=== PATIENT | female | born 1945 | race Caucasian/White ===

== ENCOUNTER 2017-01-09 11:02 | Inpatient (IN) | payer OTHER ==
[~2017-01-09] VITALS: Ht 147.3 cm; Wt 63.7 kg
[~2017-01-09 11:02] MED LIST: ACET325T82 PO; ALBU0.08 INH; ALBU1AER9 INH; ALPHTAB4 PO; BMX1 PO; BRIN1SUS OP; DRGTP12 TD; MONT1TAB3 PO; OXGN; SNK PO; SPRIN INH; TPRSR/25 PO; UMEC1INH INH; WARF2.5T8 PO
[2017-01-09] MEDS ORDERED: METHYLPREDNISOLONE 125 MG VIAL IV STA (11:46)
[2017-01-09] MEDS ORDERED: ALBUT/IPRATROP 3MG/0.5MG NEB 3 ML VIAL INH ONE (12:00)
--- NOTE | 2017-01-09 12:14 | DIAGNOSTIC IMAGING REPORT ---
CHEST ONE VIEW PORTABLE HISTORY: Sepsis COMPARISON: Chest 07/13/2016. FINDINGS: The heart and pulmonary arteries remain enlarged. There is a new right lower lobe airspace opacity. There are linear densities at the left lung base. No pneumothorax. No pleural effusions. The upper lungs and remain clear. IMPRESSION: 1. A new right lower lobe airspace opacity. This likely represents a pneumonia. Recommend one month chest x-ray follow-up to ensure resolution. 2. No change in the cardiomegaly and enlarged pulmonary arteries. Electronically signed by: Rishi Shook M.D. 01/09/2017 12:13 PM Dictated Date/Time: 01/09/2017 12:12 PM
[2017-01-09 12:46] VITALS: PULSE 60; O2SAT 91
[2017-01-09 12:56] LABS: POINT OF CARE TROPONIN I 0.03 ng/ml (0-0.045)
[2017-01-09 12:56] LABS: INR 1.4 (0.9-1.1); PARTIAL THROMBOPLASTIN RATIO 1.1; PROTHROMBIN TIME (PATIENT) 15.4 SECONDS (9.0-12.0)
[2017-01-09 13:02] LABS: BUN/CREATININE RATIO 27.6 (10-20); CALCIUM 8.9 mg/dl (8.5-10.1); CREATININE 1.4 mg/dl (0.60-1.20); POTASSIUM 4.4 mmol/L (3.5-5.1)
[2017-01-09 13:09] LABS: BASO % 0.2 %; BASO ABS # 0.02 K/uL (0-0.2); COMPLETE YES; HEMATOCRIT 32.1 % (37-47); IG% 0.2 %; LYMPH % 12.3 %; LYMPH ABS # 1.01 K/uL (1.2-3.4); MEAN CORPUSCULAR HEMOGLOBIN 29.9 pg (25-34); MEAN CORPUSCULAR HGB CONC 31.5 g/dl (32-36); MEAN PLATELET VOLUME 12.5 fL (7.4-10.4); MONO % 10.4 %; NEUT % 75.9 %; OVALOCYTES 1+; PLATELET COUNT 116 K/uL (130-400); PLT ESTIMATE DECREASED; RED BLOOD COUNT 3.38 M/uL (4.2-5.4); WHITE BLOOD COUNT 8.18 K/uL (4.8-10.8)
[2017-01-09] MEDS ORDERED: FUROSEMIDE 40 MG/4 ML VIAL IV STA (13:14)
[2017-01-09 14:11] LABS: ARTERIAL BLD GAS O2 SATURATION 93.7 % (90-95); ARTERIAL BLOOD GAS BASE EXCESS 8.8 mEq/L (-9-1.8); ARTERIAL BLOOD GAS HCO3 34 mmol/L (19-24); ARTERIAL BLOOD GAS PO2 73 mm/Hg (80-95); ARTERIAL BLOOD GAS pH 7.43 (7.35-7.45)
[2017-01-09 14:12] LABS: ALLEN TEST POS (POS); O2 ADMINISTRATION 5L
[2017-01-09] MEDS ORDERED: ONDANSETRON INJ 2 MG/ML 2 ML VIAL IV PRN (14:15)
[2017-01-09] MEDS ORDERED: ACETAMINOPHEN 325 MG TAB PO PRN (14:15)
[2017-01-09] MEDS ORDERED: [UNRECOGNIZED DRUG - REMARK] SCH (14:22)
[2017-01-09] MEDS ORDERED: CEFEPIME IV 2000 MG in DEXTROSE 5% 100ML IV SCH (14:25)
[2017-01-09] MEDS ORDERED: CEFEPIME CONSULT ACTIVE PRN ×2 (14:30)
[2017-01-09] MEDS ORDERED: PROMETHAZINE HCL INJ 12.5 MG in SODIUM CHLORIDE 0.9% 50ML 50 ML IV PRN (14:30)
[2017-01-09] MEDS ORDERED: PANT1TAB48 PO (14:53)
[2017-01-09] MEDS ORDERED: DXY100 PO (14:53)
[2017-01-09] MEDS ORDERED: WARF5TAB7 PO (14:53)
[2017-01-09] MEDS ORDERED: VANCOMYCIN INJ 1,700 MG in SODIUM CHLORIDE 0.9% 500ML 500 ML IV SCH (15:00)
[2017-01-09 15:45] VITALS: Ht 147.3 cm; Wt 63.7 kg
--- NOTE | 2017-01-09 15:48 | Pharmacy Progress Note ---
Pharmacy Antibiotic Consult Date of Service: Jan 09, 2017. Pharmacy Dosing Scope Pharmacy is consulted to initiate vancomycin and cefepime IV dosing therapy, order appropriate labs and adjust drug dose/frequency. Subjective The patient is a 71 year old female admitted on 01/09/17 with pneumonia. Objective Height (Feet): 4 Height (Inches): 10 Weight (Kilograms): 68.30 Lab Results (24hrs): Laboratory Tests Test 01/09/17 12:20 BUN/Creatinine Ratio 27.6 Blood Urea Nitrogen 39 mg/dl Creatinine 1.40 mg/dl White Blood Count 8.18 K/uL Red Blood Count 3.38 M/uL Hemoglobin 10.1 g/dL Hematocrit 32.1 % Mean Corpuscular Volume 95.0 fL Mean Corpuscular Hemoglobin 29.9 pg Mean Corpuscular Hemoglobin Concent 31.5 g/dl Platelet Count 116 K/uL Mean Platelet Volume 12.5 fL Neutrophils (%) (Auto) 75.9 % Lymphocytes (%) (Auto) 12.3 % Monocytes (%) (Auto) 10.4 % Eosinophils (%) (Auto) 1.0 % Basophils (%) (Auto) 0.2 % Neutrophils # (Auto) 6.20 K/uL Lymphocytes # (Auto) 1.01 K/uL Monocytes # (Auto) 0.85 K/uL Eosinophils # (Auto) 0.08 K/uL Basophils # (Auto) 0.02 K/uL Micro Results: Item Value Date Time Influenza Type B Antigen Neg for Influ B 01/09/17 1240 Influenza Type A Antigen Neg for Influ A 01/09/17 1240 Item Value Date Time Blood Culture Received 01/09/17 1220 Blood Pending Blood Culture Received 01/09/17 1225 Blood Pending Assessment & Plan Assessment: * 71 y/o with pertinent history of COPD, tobacco use (quit in 2004), and right nephrectomy. * Recent visit to the doctor's office for bronchitis - started doxycycline for 10 days * Today, admitted with pneumonia. * CXR with new RLL airspace opacity * History of MRSA and Zosyn resistant E. coli * Many drug allergies Plan: * begin broad-spectrum ABX to cover pulmonary source of infection, including MRSA agent Vancomycin: * Loading dose: 1700 mg (~25mg/kg) IV X 1 dose * Maintenance dose: 850 mg (~12.5mg/kg) IV every 24 hours * Estimated kinetics: T1/2 ~23.8 hours * Goal trough: 15-20mcg/mL for pulmonary source * Trough 01/12 prior to 16:00 dose * MRSA swab ordered by provider * May consider PCR influenza since antigen negative Cefepime: * Target dose = 2000 mg IV every 12 hours * Dose adjust for CrCl 30-60mL/min = 2000 mg IV every 24 hours Pharmacy will continue to follow and will adjust dose/frequency as necessary. Thank you
--- NOTE | 2017-01-09 15:56 | History and Physical ---
History & Physical Date & Time of Service: Jan 09, 2017 at 15:12 Chief Complaint: Cough, Shortness of Breath Primary Care Physician: Jodi South D.O. History of Present Illness 71 year old female who presents to the ER with cough and shortness of breath. Patient was seen by her PCP on 01/02 for cough and was given doxycycline for treatment of bronchitis. Patient was somewhat lethargic during my exam however did eventually arouse. Some history is obtained from her daughter. Patient reports increasing shortness of breath and cough for the past one week. She chronically wears 2-4 liters of oxygen at home. Cough has been productive for brown/bright red sputum at times. She reports a few episodes of the bright red blood. She had a few episodes of post tussive emesis. She describes the emesis as mucous. She also has had some diarrhea and lower abdominal pain which has resolved. She denies BRBPR or dark tarry stools. No fever or chills She denies chest pain. No lightheadedness, dizziness, diaphoresis, or syncopal events. She has chronic lower extremity edema which is worse than her baseline. Daughter reports she is intermittently lethargic at home. Upon arrival to the ER, patient was 83% on 3L. This improved with 5L oxygen via NC however patient eventually required simple face mask as she was sleeping and breathing through her mouth. CXR is showing RLL pneumonia. Patient was given IV Lasix, Solu-medrol , and duoneb. BP is stable, she is afebrile, and labs are unremarkable. Past Medical/Surgical History Medical Problems: (1) Afib Permanent Comment: s/p ablation Status: Chronic (2) Anemia Status: Chronic (3) ASD (atrial septal defect) Permanent Comment: repaired Status: Chronic (4) CKD (chronic kidney disease), stage IV Status: Chronic (5) COPD (chronic obstructive pulmonary disease) Status: Chronic (6) GERD (gastroesophageal reflux disease) Status: Chronic (7) H/O unilateral nephrectomy Permanent Comment: right Status: Chronic (8) Heart disease Permanent Comment: mild CAD cath 2007 Status: Chronic (9) HLD (hyperlipidemia) Status: Chronic (10) HTN (hypertension) Status: Chronic (11) Hypertension Status: Chronic (12) Hypothyroid Status: Chronic (13) Mild left ventricular systolic dysfunction Permanent Comment: EF 45-49% echo 04/2016 Status: Chronic (14) MRSA bacteremia Permanent Comment: in the setting of pacemaker vegetation (08/2011) and discitis (02/2012) Status: Resolved (15) Pacemaker Permanent Comment: removed 2010 due to infection Status: Chronic (16) Right-sided congestive heart failure Status: Chronic (17) Solitary kidney Status: Chronic (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 Surgical Problems: (1) H/O thyroidectomy Status: Chronic (2) History of appendectomy Status: Chronic (3) S/P MVR (mitral valve repair) Status: Chronic Family History Heart disease Hypertension Lung disease Social History Smoking Status: Former Smoker Alcohol Use: none Housing status: lives with family Immunizations History of Influenza Vaccine: Yes Influenza Vaccine Date: Oct 06, 2016 History of Tetanus Vaccine?: Yes Tetanus Immunization Date: Jul 08, 2015 History of Pneumococcal: Yes Pneumococcal Date: May 20, 2015 Multi-Drug Resistant Organisms History of MDRO: Yes Type of MDRO: MRSA Allergies Coded Allergies: Levofloxacin (Verified Allergy, Intermediate, HIVES, 01/09/17) Quinolones (Verified Allergy, Intermediate, HIVES, 01/09/17) Ranitidine (Verified Allergy, Intermediate, HIVES, 01/09/17) Sulfamethoxazole (Verified Allergy, Intermediate, HIVES, 01/09/17) Trimethoprim (Verified Allergy, Intermediate, HIVES, 01/09/17) Clarithromycin (Verified Allergy, Mild, HIVES, CAN TAKE ZITHROMAX W/O PROB , 01/09/17) Amoxicillin (Verified Allergy, Unknown, HIVES, 01/09/17) Omeprazole (Verified Allergy, Unknown, HAS HAD PROTONIX, 01/09/17) Home Medications Scheduled Bumetanide (Bumetanide), 1 MG PO DAILY Calcitriol (Calcitriol), 1 CAP PO MWF Donepezil Hydrochloride (Aricept), 10 MG PO HS Doxycycline Hyclate (Doxycycline Hyclate), 100 MG PO BID Ferrous Sulfate (Iron), 1 TAB PO BID Fluticasone Prop/Salmeterol (Advair Diskus 250/50 60 Dose), 1 PUFF INH BID Fluticasone Propionate (Nasal) (Flonase Allergy Relief), 1 SPRAY PAULIE BID Gabapentin (Neurontin), 300 MG PO DAILY Gabapentin (Neurontin), 600 MG PO AMHS Hydralazine HCl (Hydralazine HCl), 10 MG PO BID Levothyroxine Sodium (Levothyroxine Sodium), 75 MCG PO DAILY Metoprolol Succinate (Metoprolol Succinate ER), 12.5 MG PO DAILY Montelukast Sodium (Singulair), 1 TAB PO DAILY Nitroglycerin (Nitrostat), 0.4 MG SL PRN UD Oxybutynin Chloride (Oxybutynin Chloride Er), 5 MG PO DAILY Oxygen (Oxygen), 2-3 LITERS NA CONTINOUS Pantoprazole (Protonix), 40 MG PO DAILY Pravastatin Sodium (Pravastatin Sodium), 80 MG PO QPM Senna (Senna Lax), 8.6 MG PO QAM Umeclidinium [place] (Incruse Ellipta), 1 INHA INH DAILY Warfarin Sod (Jantoven), 2.5 MG PO UD Warfarin Sod (Jantoven), 5 MG PO UD Scheduled PRN Albuterol Sulf (Proventil 0.083% 2.5MG/3ML), 2.5 MG INH Q4H PRN for SOB/Wheezing Albuterol Sulfate (Proair Respiclick), 2 PUFFS INH QID PRN for Shortness of Breath Review of Systems 10 point review of systems was completed with the pertinent positives and negatives noted per the HPI Physical Exam Vital Signs Date Time Temp Pulse Resp B/P Pulse Ox O2 Delivery O2 Flow Rate FiO2 01/09/17 14:42 95 Mask 5.0 01/09/17 13:58 83 21 126/57 94 Mask 5.0 01/09/17 12:46 60 18 91 Nasal Cannula 5.0 01/09/17 12:43 65 26 120/85 93 Nebulizer 01/09/17 12:20 65 01/09/17 12:03 91 Nasal Cannula 5.0 01/09/17 11:23 92 Nasal Cannula 5.0 01/09/17 11:18 37.5 64 22 146/75 83 Nasal Cannula 3.0 General Appearance: + pertinent finding (initially lethargic however improved throughout exam) Head: normocephalic Eyes: normal inspection ENT: hearing grossly normal Neck: supple, no JVD Respiratory/Chest: + decreased breath sounds, + crackles (BL bases), + rhonchi (scattered), + wheezing (scattered, expiratory) Cardiovascular: regular rate, rhythm, + pertinent finding (+1 edema BLLE) Abdomen/GI: normal bowel sounds, non tender, soft Extremities/Musculoskelatal: normal inspection, no calf tenderness Neurologic/Psych: no motor/sensory deficits, oriented x 3, + pertinent finding (initially lethargic however mental status improved through out exam) Skin: normal color, warm/dry Diagnostics Laboratory Results Results Past 24 Hours Test 01/09/17 12:20 01/09/17 12:32 01/09/17 12:40 01/09/17 13:59 Range/Units White Blood Count 8.18 4.8-10.8 K/uL Red Blood Count 3.38 4.2-5.4 M/uL Hemoglobin 10.1 12.0-16.0 g/dL Hematocrit 32.1 37-47 % Mean Corpuscular Volume 95.0 80-100 fL Mean Corpuscular Hemoglobin 29.9 25-34 pg Mean Corpuscular Hemoglobin Concent 31.5 32-36 g/dl Platelet Count 116 130-400 K/uL Mean Platelet Volume 12.5 7.4-10.4 fL Neutrophils (%) (Auto) 75.9 % Lymphocytes (%) (Auto) 12.3 % Monocytes (%) (Auto) 10.4 % Eosinophils (%) (Auto) 1.0 % Basophils (%) (Auto) 0.2 % Neutrophils # (Auto) 6.20 1.4-6.5 K/uL Lymphocytes # (Auto) 1.01 1.2-3.4 K/uL Monocytes # (Auto) 0.85 0.11-0.59 K/uL Eosinophils # (Auto) 0.08 0-0.5 K/uL Basophils # (Auto) 0.02 0-0.2 K/uL RDW Standard Deviation 57.9 36.4-46.3 fL RDW Coefficient of Variation 16.8 11.5-14.5 % Immature Granulocyte % (Auto) 0.2 % Immature Granulocyte # (Auto) 0.02 0.00-0.02 K/uL Platelet Estimate DECREASED Ovalocytes 1+ Prothrombin Time 15.4 9.0-12.0 SECONDS Prothromb Time International Ratio 1.4 0.9-1.1 Activated Partial Thromboplast Time 29.5 21.0-31.0 SECONDS Partial Thromboplastin Ratio 1.1 Sodium Level 144 136-145 mmol/L Potassium Level 4.4 3.5-5.1 mmol/L Chloride Level 104 98-107 mmol/L Carbon Dioxide Level 32 21-32 mmol/L Anion Gap 8.0 3-11 mmol/L Blood Urea Nitrogen 39 7-18 mg/dl Creatinine 1.40 0.60-1.20 mg/dl Est Creatinine Clear Calc Drug Dose 29.7 ml/min Estimated GFR () 43.4 Estimated GFR (Non- 37.4 BUN/Creatinine Ratio 27.6 10-20 Random Glucose 96 70-99 mg/dl Calcium Level 8.9 8.5-10.1 mg/dl Total Bilirubin 0.7 0.2-1 mg/dl Aspartate Amino Transf (AST/SGOT) 14 15-37 U/L Alanine Aminotransferase (ALT/SGPT) 13 12-78 U/L Alkaline Phosphatase 57 45-117 U/L Total Protein 6.6 6.4-8.2 gm/dl Albumin 3.3 3.4-5.0 gm/dl Globulin 3.3 2.5-4.0 gm/dl Albumin/Globulin Ratio 1.0 0.9-2 Bedside Lactic Acid Venous 0.87 0.90-1.70 mmol/L Bedside Troponin I 0.030 0-0.045 ng/ml MM-Vpf-U-Type Natriuretic Peptide 4300 0-900 pg/ml Influenza Type A Antigen Neg for Influ A NEG Influenza Type B Antigen Neg for Influ B NEG Arterial Blood pH 7.43 7.35-7.45 Arterial Blood Partial Pressure CO2 53 35-46 mmHg Arterial Blood Partial Pressure O2 73 80-95 mm/Hg Arterial Blood HCO3 34 19-24 mmol/L Arterial Blood Oxygen Saturation 93.7 90-95 % Arterial Blood Base Excess 8.8 -9-1.8 mEq/L Arterial Blood Gas Delivery 5L Aditay Test POS POS Microbiology Results 01/09/17 Blood Culture, Received Pending 01/09/17 Blood Culture, Received Pending Diagnostic Radiology CXR IMPRESSION: 1. A new right lower lobe airspace opacity. This likely represents a pneumonia. Recommend one month chest x-ray follow-up to ensure resolution. 2. No change in the cardiomegaly and enlarged pulmonary arteries. Impression Assessment and Plan ACUTE ON CHRONIC HYPOXIC RESPIRATORY FAILURE, LIKELY MULTIFACTORIAL DUE TO: RLL PNEUMONIA COPD EXACERBATION ACUTE ON CHRONIC DIASTOLIC/SYSTOLIC CHF - admit to tele - patient presenting with increasing shortness of breath/productive cough x 1 week; was started on doxycycline by PCP on 01/02 - CXR showing RLL pneumonia - afebrile, no leukocytosis, normal lactic acid, BP stable - 83% on 3L on arrival (chronically on 2-4 liters at home), currently requiring 5L via simple face mask due to mouth breathing while sleeping - ABG shows compensated respiratory acidosis - due to patient's allergies and hx MRSA bacteremia, will place on Cefepime and Vanco - rapid flu negative, will check PCR - IV steroids and nebs around the clock, continue home inhaled corticosteroid - pulmonary consult, input appreciated - patient also presenting with increasing lower extremity edema, crackles noted on exam - s/p Lasix 40mg IV in ED - will continue with 40mg IV daily (on Bumex 1mg daily at home) - echo 04/2016 - EF 45-49%, moderate pulmonary hypertension; will update echo - cardio consult, input appreciated HEMOPTYSIS - per patient, none observed here - on Coumadin, INR 1.4; also thrombocytopenia noted - hgb at baseline - check CT chest, hold Coumadin Pulmonary consult THROMBOCYTOPENIA - ? 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 DISPO - In my clinical judgment this beneficiary meets acute admission criteria, established by [facility], that includes being hospitalized through two midnights. Agree with above h and P.71Y f with PMH of copd chronic respiratory failure, chf presents with sob and cough with brownish/red sputum going on for one week.Initially seemed lethargic but aroused and answered questions appropriately. Was speaking in full sentences with out stopping for sob. but requiring 5ls oxygen mask in ER. denies chest pain. No nausea. p/e Ge not in distress Cvs s1 and s2 heard no murmurs Rs cta b/l no wheezing bibasilar crackles present Abd soft bs present non tender n o distension [employer] non focal Ext no erythema b/l lower extremity edema present a/p acute on chronic resp failure Pneumonia Acute on chronic right sided heart failure Pl.HTN ABG ok iv steroids, nebs,oxygen iv cefepime and iv vanco ct chest pulmonary and cardiology consult monitor in tele Hemoptysis?ct chest-possible pneumonia/alveolar hemorrhage abx as above Coumadin on hold sputum cytology pulmonary consulted VTE Prophylaxis VTE Risk Assessment Done? Y/N: Yes Risk Level: Moderate
--- NOTE | 2017-01-09 16:25 | DIAGNOSTIC IMAGING REPORT ---
CT OF THE CHEST WITHOUT IV CONTRAST CLINICAL HISTORY: Hemoptysis. COMPARISON STUDY: Chest CT May 08, 2011 and chest radiograph January 09, 2017. CT DOSE: 339.76 mGy.cm TECHNIQUE: Axial images of the chest were obtained without IV contrast. Images were reviewed in the axial, sagittal, and coronal planes. IV contrast was not administered for this examination. FINDINGS: Marked enlargement of the heart is noted. Marked dilatation of the central pulmonary arteries is present. There is no pericardial effusion. Note is made of a small right pleural effusion. There is no pneumothorax. No enlarged thoracic lymph nodes are identified. The lungs are suboptimally assessed due to significant respiratory motion artifact. Interlobular septal thickening suggests pulmonary edema. In addition, there are bilateral airspace opacities, greatest within the lower lobes. There is narrowing of the AP dimension of the airways which suggest tracheomalacia. There is no lobar consolidation. Bony thorax is unremarkable. There are gallstones within the gallbladder. Deformity of the anterior right chest wall is unchanged and likely postsurgical. IMPRESSION: 1. Marked cardiomegaly. 2. Marked dilatation of the central pulmonary arteries and wall calcification of the pulmonary arteries consistent with severe pulmonary arterial hypertension. 3. Interlobular septal thickening consistent with pulmonary edema. Small right pleural effusion. 4. Suboptimal evaluation of lungs due to respiratory motion. Multifocal bilateral airspace opacities, greatest within the lower lobes. This could reflect pulmonary edema, pneumonia or pulmonary hemorrhage. 5. Cholelithiasis. 6. Findings suggestive of tracheobronchomalacia. Electronically signed by: Alejo Moya M.D. 01/09/2017 4:23 PM Dictated Date/Time: 01/09/2017 4:14 PM
--- NOTE | 2017-01-09 18:57 | EMERGENCY ROOM VISIT NOTE ---
History Report prepared by Kaitlynn: Claudy Grimaldo Under the Supervision of: Dr. Darien Sandoval M.D. First contact with patient: 11:37 Chief Complaint: ILLNESS Stated Complaint: ILLNESS History of Present Illness The patient is a 71 year old female who presents to the Emergency Room via EMS with complaints of dizziness that occurred RN UTILIZATION MANAGEMENT UM. The patient states that she began to feel light headed and nauseous while at home with her home health nurse when they decided to call the ambulance. Associated symptoms include a productive cough that started a week ago, a fever, and congestion. The patient reports a history of Emphysema. She is on 3L of oxygen consistently at home. She denies increased shortness of breath as compared to her baseline. The patient is currently being treated with an antibiotic. She also takes Lasix regularly for swelling to her legs. She also complains of some chest tightness as well. Source of History: patient Onset: RN UTILIZATION MANAGEMENT UM Position: other (Global ) Symptom Intensity: moderate Quality: other (dizziness) Modifying Factors (Worsening): other (None) Modifying Factors (Relieving): other (None) Associated Symptoms: + SOB, + chest pain, + cough, + fevers Review of Systems See HPI for pertinent positives & negatives. A total of 10 systems reviewed and were otherwise negative. 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 Surgical Problems: (1) H/O thyroidectomy (2) History of appendectomy (3) S/P MVR (mitral valve repair) Family History Heart disease Hypertension Lung disease Social History Smoking Status: Former Smoker Alcohol Use: none Drug Use: none Marital Status: Housing Status: prison Occupation Status: retired Current/Historical Medications Scheduled Bumetanide (Bumetanide), 1 MG PO DAILY Calcitriol (Calcitriol), 1 CAP PO MWF Donepezil Hydrochloride (Aricept), 10 MG PO HS Doxycycline Hyclate (Doxycycline Hyclate), 100 MG PO BID Ferrous Sulfate (Iron), 1 TAB PO BID Fluticasone Prop/Salmeterol (Advair Diskus 250/50 60 Dose), 1 PUFF INH BID Fluticasone Propionate (Nasal) (Flonase Allergy Relief), 1 SPRAY PAULIE BID Gabapentin (Neurontin), 300 MG PO DAILY Gabapentin (Neurontin), 600 MG PO AMHS Hydralazine HCl (Hydralazine HCl), 10 MG PO BID Levothyroxine Sodium (Levothyroxine Sodium), 75 MCG PO DAILY Metoprolol Succinate (Metoprolol Succinate ER), 12.5 MG PO DAILY Montelukast Sodium (Singulair), 1 TAB PO DAILY Nitroglycerin (Nitrostat), 0.4 MG SL PRN UD Oxybutynin Chloride (Oxybutynin Chloride Er), 5 MG PO DAILY Oxygen (Oxygen), 2-3 LITERS NA CONTINOUS Pantoprazole (Protonix), 40 MG PO DAILY Pravastatin Sodium (Pravastatin Sodium), 80 MG PO QPM Senna (Senna Lax), 8.6 MG PO QAM Umeclidinium [place] (Incruse Ellipta), 1 INHA INH DAILY Warfarin Sod (Jantoven), 2.5 MG PO UD Warfarin Sod (Jantoven), 5 MG PO UD Scheduled PRN Albuterol Sulf (Proventil 0.083% 2.5MG/3ML), 2.5 MG INH Q4H PRN for SOB/Wheezing Albuterol Sulfate (Proair Respiclick), 2 PUFFS INH QID PRN for Shortness of Breath Allergies Coded Allergies: Levofloxacin (Verified Allergy, Intermediate, HIVES, 01/09/17) Quinolones (Verified Allergy, Intermediate, HIVES, 01/09/17) Ranitidine (Verified Allergy, Intermediate, HIVES, 01/09/17) Sulfamethoxazole (Verified Allergy, Intermediate, HIVES, 01/09/17) Trimethoprim (Verified Allergy, Intermediate, HIVES, 01/09/17) Clarithromycin (Verified Allergy, Mild, HIVES, CAN TAKE ZITHROMAX W/O PROB , 01/09/17) Amoxicillin (Verified Allergy, Unknown, HIVES, 01/09/17) Omeprazole (Verified Allergy, Unknown, HAS HAD PROTONIX, 01/09/17) Physical Exam Vital Signs Date Time Temp Pulse Resp B/P Pulse Ox O2 Delivery O2 Flow Rate FiO2 01/09/17 14:12 86 27 92 01/09/17 14:07 76 20 93 01/09/17 14:02 72 23 94 01/09/17 13:58 83 21 126/57 94 Mask 5.0 01/09/17 13:57 77 21 93 01/09/17 13:52 71 20 92 01/09/17 13:47 68 20 87 01/09/17 13:42 72 24 88 01/09/17 13:37 74 20 88 01/09/17 13:32 72 19 87 01/09/17 13:27 66 22 87 01/09/17 13:22 64 25 95 01/09/17 13:17 64 20 95 01/09/17 13:12 64 20 95 01/09/17 13:07 60 16 96 01/09/17 13:02 68 17 96 01/09/17 12:58 126/57 01/09/17 12:57 62 23 93 01/09/17 12:52 57 18 94 01/09/17 12:47 57 19 94 01/09/17 12:46 60 18 91 Nasal Cannula 5.0 01/09/17 12:43 65 26 120/85 93 Nebulizer 01/09/17 12:42 63 25 93 01/09/17 12:37 63 29 92 01/09/17 12:32 69 17 91 01/09/17 12:27 60 20 89 01/09/17 12:22 62 18 92 01/09/17 12:20 65 01/09/17 12:17 60 19 90 01/09/17 12:12 56 23 91 01/09/17 12:07 62 17 90 01/09/17 12:03 91 Nasal Cannula 5.0 01/09/17 12:02 64 23 85 01/09/17 11:59 120/85 01/09/17 11:57 62 21 89 01/09/17 11:52 70 18 92 01/09/17 11:47 61 18 89 01/09/17 11:42 66 21 89 01/09/17 11:37 61 18 87 01/09/17 11:32 65 18 87 01/09/17 11:27 67 22 88 01/09/17 11:23 92 Nasal Cannula 5.0 01/09/17 11:18 37.5 64 22 146/75 83 Nasal Cannula 3.0 01/09/17 11:13 146/75 Physical Exam Constitutional: Vital signs reviewed. Eyes: Pupils are equal round reactive to light. Conjunctiva are noninjected. ENT: Pharynx is clear without erythema or exudate. Mucous membranes are moist. Neck supple without meningeal signs. Respiratory: Diffuse expiratory wheezing bilaterally. Breath sounds are equal bilaterally. Cardiovascular: Regular rate and rhythm. No rubs or gallops. GI: Soft, nondistended and nontender. Bowel sounds are present. Musculoskeletal: 1+ pitting edema to lower extremities, no lower extremity tenderness. Integumentary: No cyanosis. Neurological: The patient is awake and alert. No focal deficits. Psychiatric: Normal affect. Medical Decision & Procedures ER Provider Diagnostic Interpretation: X-ray results as stated below per interpretation by me and the radiologist: CHEST ONE VIEW PORTABLE HISTORY: Sepsis COMPARISON: Chest 07/13/2016. FINDINGS: The heart and pulmonary arteries remain enlarged. There is a new right lower lobe airspace opacity. There are linear densities at the left lung base. No pneumothorax. No pleural effusions. The upper lungs and remain clear. IMPRESSION: 1. A new right lower lobe airspace opacity. This likely represents a pneumonia. Recommend one month chest x-ray follow-up to ensure resolution. 2. No change in the cardiomegaly and enlarged pulmonary arteries. Electronically signed by: Rishi Shook M.D. 01/09/2017 12:13 PM Dictated Date/Time: 01/09/2017 12:12 PM Laboratory Results 01/09/17 12:20 Red Blood Count 3.38, Mean Corpuscular Volume 95.0, Mean Corpuscular Hemoglobin 29.9, Mean Corpuscular Hemoglobin Concent 31.5, Mean Platelet Volume 12.5, Neutrophils (%) (Auto) 75.9, Lymphocytes (%) (Auto) 12.3, Monocytes (%) (Auto) 10.4, Eosinophils (%) (Auto) 1.0, Basophils (%) (Auto) 0.2, Neutrophils # (Auto ) 6.20, Lymphocytes # (Auto) 1.01, Monocytes # (Auto) 0.85, Eosinophils # (Auto ) 0.08, Basophils # (Auto) 0.02 01/09/17 12:20 Test 01/09/17 12:20 01/09/17 12:32 01/09/17 12:40 01/09/17 13:59 White Blood Count 8.18 K/uL (4.8-10.8) Red Blood Count 3.38 M/uL (4.2-5.4) Hemoglobin 10.1 g/dL (12.0-16.0) Hematocrit 32.1 % (37-47) Mean Corpuscular Volume 95.0 fL (80-100) Mean Corpuscular Hemoglobin 29.9 pg (25-34) Mean Corpuscular Hemoglobin Concent 31.5 g/dl (32-36) Platelet Count 116 K/uL (130-400) Mean Platelet Volume 12.5 fL (7.4-10.4) Neutrophils (%) (Auto) 75.9 % Lymphocytes (%) (Auto) 12.3 % Monocytes (%) (Auto) 10.4 % Eosinophils (%) (Auto) 1.0 % Basophils (%) (Auto) 0.2 % Neutrophils # (Auto) 6.20 K/uL (1.4-6.5) Lymphocytes # (Auto) 1.01 K/uL (1.2-3.4) Monocytes # (Auto) 0.85 K/uL (0.11-0.59) Eosinophils # (Auto) 0.08 K/uL (0-0.5) Basophils # (Auto) 0.02 K/uL (0-0.2) RDW Standard Deviation 57.9 fL (36.4-46.3) RDW Coefficient of Variation 16.8 % (11.5-14.5) Immature Granulocyte % (Auto) 0.2 % Immature Granulocyte # (Auto) 0.02 K/uL (0.00-0.02) Platelet Estimate DECREASED Ovalocytes 1+ Prothrombin Time 15.4 SECONDS (9.0-12.0) Prothromb Time International Ratio 1.4 (0.9-1.1) Activated Partial Thromboplast Time 29.5 SECONDS (21.0-31.0) Partial Thromboplastin Ratio 1.1 Anion Gap 8.0 mmol/L (3-11) Est Creatinine Clear Calc Drug Dose 29.7 ml/min Estimated GFR () 43.4 Estimated GFR (Non- 37.4 BUN/Creatinine Ratio 27.6 (10-20) Calcium Level 8.9 mg/dl (8.5-10.1) Total Bilirubin 0.7 mg/dl (0.2-1) Aspartate Amino Transf (AST/SGOT) 14 U/L (15-37) Alanine Aminotransferase (ALT/SGPT) 13 U/L (12-78) Alkaline Phosphatase 57 U/L (45-117) Total Protein 6.6 gm/dl (6.4-8.2) Albumin 3.3 gm/dl (3.4-5.0) Globulin 3.3 gm/dl (2.5-4.0) Albumin/Globulin Ratio 1.0 (0.9-2) Bedside Lactic Acid Venous 0.87 mmol/L (0.90-1.70) Bedside Troponin I 0.030 ng/ml (0-0.045) EC-Bfv-D-Type Natriuretic Peptide 4300 pg/ml (0-900) Influenza Type A Antigen Neg for Influ A (NEG) Influenza Type B Antigen Neg for Influ B (NEG) Arterial Blood pH 7.43 (7.35-7.45) Arterial Blood Partial Pressure CO2 53 mmHg (35-46) Arterial Blood Partial Pressure O2 73 mm/Hg (80-95) Arterial Blood HCO3 34 mmol/L (19-24) Arterial Blood Oxygen Saturation 93.7 % (90-95) Arterial Blood Base Excess 8.8 mEq/L (-9-1.8) Arterial Blood Gas Delivery 5L Aditya Test POS (POS) Laboratory results as reviewed by me. Medications Administered Medications (Trade) Dose Ordered Sig/Mehdi Route Start Time Stop Time Status Last Admin Dose Admin Albuterol/ Ipratropium (Duoneb) 12 ml ONE ONCE INH 01/09/17 12:00 01/09/17 12:01 DC 01/09/17 12:46 12 ML Methylprednisolone Sodium Succinate (Solu-Medrol IV) 125 mg NOW STAT IV 01/09/17 11:46 01/09/17 11:48 DC 01/09/17 12:36 125 MG Furosemide (Lasix Inj) 40 mg NOW STAT IV 01/09/17 13:14 01/09/17 13:16 DC 01/09/17 13:56 40 MG ECG Indication: weakness Rate (beats per minute): 60 Rhythm: normal sinus Findings: LAFB, RBBB Comparison ECG Date: June 2016 Change: no significant change ED Course 1142: The patient was evaluated in room C6. A complete history and physical exam was performed. 1146: Ordered Solu- Medrol IV 125 mg IV. 1200: Ordered Duoneb 12 ml INH. 1310: I reevaluated the patient. She is experiencing persistent wheezing. Her pulse ox is 96 on nebulizer. I updated the patient and her daughter of the test results and treatment plan. They are agreeable at this time. 1314: Ordered Lasix Injection 40 mg IV. 1316: I discussed the patient's case with case management. We found that the patient is taking Doxycycline. 1323: I discussed the patient's case with Kylah Shanks ([facility]). She will evaluate the patient for further management and care. Medical Decision This is a 71-year-old female presents with fever, cough and shortness of breath. Differential diagnosis includes pneumonia, sepsis, pneumothorax, pleural effusion, pulmonary edema, COPD exacerbation. I did perform a limited focused review of portions of the patient's old chart on the electronic medical record. The patient has had no recent pertinent visits to this hospital. I did evaluate the patient as noted above. The patient is wheezing diffusely on examination. She has had a cough and has been on antibiotics since last week. Her cough is productive. IV access was established. 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 Her pulse ox is only in the 80s on 3 L oxygen. I did order a continuous hour-long nebulizer. She was also given Solu- Medrol IV. I did treat her with Lasix IV. I did order and personally review the patient's 12-lead EKG and chest x-ray as described above. Her chest x-ray demonstrates a right-sided pneumonia. I did order and review the patient's blood work as noted in the electronic medical record. She has anemia. Her white blood cell count is not elevated. Creatinine is slightly elevated. POC troponin is negative. I did reassess the patient. She continues to have wheezing on exam but feels better. I did recommend hospitalization for further care and evaluation. She will need IV antibiotics for her pneumonia. I did discuss the case with the hospitalist and case mgr. Consults Time Called: 1320 Consulting Physician: Kylah Shanks Returned Call: 1323 I discussed the patient's case with Kylah Shanks (Stefanie COPELAND). She will evaluate the patient for further management and care. Impression Primary Impression: Pneumonia involving right lung Additional Impressions: COPD exacerbation CHF exacerbation Hypoxia Anemia Critical Care I have personally spent greater than 30 minutes of critical care time in the direct management of this patient. This includes bedside care, interpretation of diagnostic studies, and testing, discussion with consultants, patient, and family members, and other required patient management activities. This 30 minutes is in excess of all separately billable procedures. Scribe Attestation The scribe's documentation has been prepared under my direct and personally reviewed by me in its entirety. I confirm that the note above accurately reflects all work, treatment, procedures, and medical decision making performed by me. Departure Information Dispostion Being Evaluated By Hospitalist Referrals Jodi South D.O. (PCP) Patient Instructions My [facility] Problem Qualifiers
[2017-01-09 19:57] VITALS: BP 127/51; PULSE 59; TEMP 36.8; O2SAT 93
[2017-01-09 20:00] VITALS: O2SAT 93
[2017-01-09] MEDS: ALBUT/IPRATROP 3MG/0.5MG NEB 3 ML VIAL INH SCH (20:06)
[2017-01-09 20:10] VITALS: PULSE 61; O2SAT 94
[2017-01-09] MEDS: FLUTICASONE PROPIONATE NA SPR 16 GM BTL NAE SCH (21:00)
[2017-01-09] MEDS: HydrALAZINE 10 MG TAB PO SCH (21:00)
[2017-01-09] MEDS: METHYLPREDNISOLONE IV 40 MG in SYRINGE 0 ML IV SCH (21:00)
[2017-01-09] MEDS: FLUTICASONE/SALMETEROL 250/50 (ADVAIR) 14 PUFF/1 INHALER INH SCH (21:00)
[2017-01-09] MEDS: GABAPENTIN 600 MG TAB PO SCH (21:00)
[2017-01-09] MEDS: PRAVASTATIN SOD 40 MG TAB PO SCH (21:00)
[2017-01-09] MEDS: FERROUS SULFATE 325 MG TAB PO SCH (21:00)
[2017-01-09] MEDS: DONEPEZIL HCL 10 MG TAB PO SCH (21:00)
[2017-01-09 21:25] VITALS: PULSE 62; O2SAT 93
--- NOTE | 2017-01-09 21:35 | DIAGNOSTIC IMAGING REPORT ---
CHEST ONE VIEW PORTABLE CLINICAL HISTORY: sob dyspnea COMPARISON STUDY: 01/09/2017 at 12:00 PM FINDINGS: Unchanging cardiomegaly. Unchanging central pulmonary arterial prominence. Right basilar infiltrate combined with a small left basilar infiltrate. Superimposed pulmonary vascular congestion. IMPRESSION: Bibasilar infiltrates. Developing pulmonary vascular congestion. Electronically signed by: Luis Fernando Keene M.D. 01/09/2017 9:34 PM Dictated Date/Time: 01/09/2017 9:34 PM
--- NOTE | 2017-01-09 21:47 | Progress Note ---
Internal Med Progress Note Date of Service: Jan 09, 2017. Provider Documentation: Made aware by RN of px decreased responsiveness. worsening hypercarbia on ABG CXR congestion, bilateral infiltrates AP Worsening hypoxemic, hypercapnic resp failure multifactorial : COPD exacerbation 2 to bilateral pneumonia poss aspiration (vomiting episodes as per records) decompensated HF NIPPV, recheck ABG stat nebs continue nebs RTC, steroids change Cefepime to Ertapenem for anaerobe coverage additional Lasix May need ICU transfer to facilitate MV ff emergent intubation if w/o response to above intervention. Vital Signs: Date Time Temp Pulse Resp B/P Pulse Ox O2 Delivery O2 Flow Rate FiO2 01/10/17 04:15 36.5 55 22 150/65 92 BiPAP 01/10/17 04:15 92 BiPAP 8.0 01/10/17 02:22 65 91 8.0 01/10/17 02:21 65 20 91 BiPAP/CPAP 8.0 01/10/17 00:15 91 BiPAP 6.0 01/10/17 00:02 36.4 66 18 143/60 91 BiPAP 6.0 01/09/17 22:28 6.0 01/09/17 22:15 73 18 126/76 90 BiPAP 01/09/17 21:25 62 93 5.0 01/09/17 20:10 61 18 94 Diffusion Mask 5.0 01/09/17 20:00 93 Mask 5.0 01/09/17 19:57 36.8 59 18 127/51 93 01/09/17 17:25 63 14 132/50 92 01/09/17 16:58 132/50 01/09/17 16:57 63 14 92 Mask 3.0 01/09/17 16:52 56 18 93 01/09/17 16:47 63 21 91 01/09/17 16:42 61 15 95 01/09/17 16:37 59 15 96 01/09/17 16:32 58 18 95 01/09/17 16:27 62 14 95 01/09/17 16:22 57 16 96 01/09/17 16:17 61 16 90 01/09/17 15:58 118/61 01/09/17 15:57 59 16 94 01/09/17 15:52 82 20 96 01/09/17 15:47 64 17 93 2/15/17 15:45 Mask 5.0 2/15/17 15:42 60 18 94 2/15/17 15:37 64 21 94 2/15/17 15:32 57 19 94 2/15/17 15:27 66 24 95 2/15/17 15:22 63 16 93 2/15/17 15:17 60 18 94 2/15/17 15:12 64 20 95 2/15/17 15:07 62 19 94 215/17 15:02 72 21 94 15/17 14:58 132/55 215/17 14:57 63 17 93 2/15/17 14:52 67 18 94 2/15/17 14:47 64 21 92 215/17 14:42 95 Mask 5.0 15/17 14:42 63 17 92 15/17 14:37 64 23 94 15/17 14:32 78 17 94 15/17 14:27 67 18 95 /15/17 14:22 80 21 82 15/17 14:17 81 24 82 2/15/17 14:12 86 27 92 215/17 14:07 76 20 93 215/17 14:02 72 23 94 15/17 13:58 83 21 126/57 94 Mask 5.0 01/09/17 13:57 77 21 93 2/15/17 13:52 71 20 92 2/15/17 13:47 68 20 87 2/15/17 13:42 72 24 88 2/15/17 13:37 74 20 88 215/17 13:32 72 19 87 215/17 13:27 66 22 87 2/15/17 13:22 64 25 95 215/17 13:17 64 20 95 2/15/17 13:12 64 20 95 15/17 13:07 60 16 96 2/15/17 13:02 68 17 96 2/15/17 12:58 126/57 15/17 12:57 62 23 93 15/17 12:52 57 18 94 /15/17 12:47 57 19 94 15/17 12:46 60 18 91 Nasal Cannula 5.0 01/09/17 12:43 65 26 120/85 93 Nebulizer 15 12:42 63 25 93 2/15/17 12:37 63 29 92 01/09/17 12:32 69 17 91 01/09/17 12:27 60 20 89 01/09/17 12:22 62 18 92 01/09/17 12:20 65 01/09/17 12:17 60 19 90 01/09/17 12:12 56 23 91 01/09/17 12:07 62 17 90 01/09/17 12:03 91 Nasal Cannula 5.0 01/09/17 12:02 64 23 85 01/09/17 11:59 120/85 01/09/17 11:57 62 21 89 01/09/17 11:52 70 18 92 01/09/17 11:47 61 18 89 01/09/17 11:42 66 21 89 01/09/17 11:37 61 18 87 01/09/17 11:32 65 18 87 01/09/17 11:27 67 22 88 01/09/17 11:23 92 Nasal Cannula 5.0 01/09/17 11:18 37.5 64 22 146/75 83 Nasal Cannula 3.0 01/09/17 11:13 146/75 Lab Results: Results Past 24 Hours Test 01/09/17 12:20 01/09/17 12:32 01/09/17 12:40 01/09/17 13:59 Range/Units White Blood Count 8.18 4.8-10.8 K/uL Red Blood Count 3.38 4.2-5.4 M/uL Hemoglobin 10.1 12.0-16.0 g/dL Hematocrit 32.1 37-47 % Mean Corpuscular Volume 95.0 80-100 fL Mean Corpuscular Hemoglobin 29.9 25-34 pg Mean Corpuscular Hemoglobin Concent 31.5 32-36 g/dl Platelet Count 116 130-400 K/uL Mean Platelet Volume 12.5 7.4-10.4 fL Neutrophils (%) (Auto) 75.9 % Lymphocytes (%) (Auto) 12.3 % Monocytes (%) (Auto) 10.4 % Eosinophils (%) (Auto) 1.0 % Basophils (%) (Auto) 0.2 % Neutrophils # (Auto) 6.20 1.4-6.5 K/uL Lymphocytes # (Auto) 1.01 1.2-3.4 K/uL Monocytes # (Auto) 0.85 0.11-0.59 K/uL Eosinophils # (Auto) 0.08 0-0.5 K/uL Basophils # (Auto) 0.02 0-0.2 K/uL RDW Standard Deviation 57.9 36.4-46.3 fL RDW Coefficient of Variation 16.8 11.5-14.5 % Immature Granulocyte % (Auto) 0.2 % Immature Granulocyte # (Auto) 0.02 0.00-0.02 K/uL Platelet Estimate DECREASED Ovalocytes 1+ Prothrombin Time 15.4 9.0-12.0 SECONDS Prothromb Time International Ratio 1.4 0.9-1.1 Activated Partial Thromboplast Time 29.5 21.0-31.0 SECONDS Partial Thromboplastin Ratio 1.1 Sodium Level 144 136-145 mmol/L Potassium Level 4.4 3.5-5.1 mmol/L Chloride Level 104 98-107 mmol/L Carbon Dioxide Level 32 21-32 mmol/L Anion Gap 8.0 3-11 mmol/L Blood Urea Nitrogen 39 7-18 mg/dl Creatinine 1.40 0.60-1.20 mg/dl Est Creatinine Clear Calc Drug Dose 29.7 ml/min Estimated GFR () 43.4 Estimated GFR (Non- 37.4 BUN/Creatinine Ratio 27.6 10-20 Random Glucose 96 70-99 mg/dl Calcium Level 8.9 8.5-10.1 mg/dl Total Bilirubin 0.7 0.2-1 mg/dl Aspartate Amino Transf (AST/SGOT) 14 15-37 U/L Alanine Aminotransferase (ALT/SGPT) 13 12-78 U/L Alkaline Phosphatase 57 45-117 U/L Total Protein 6.6 6.4-8.2 gm/dl Albumin 3.3 3.4-5.0 gm/dl Globulin 3.3 2.5-4.0 gm/dl Albumin/Globulin Ratio 1.0 0.9-2 Bedside Lactic Acid Venous 0.87 0.90-1.70 mmol/L Bedside Troponin I 0.030 0-0.045 ng/ml VU-Zin-U-Type Natriuretic Peptide 4300 0-900 pg/ml Influenza Type A Antigen Neg for Influ A NEG Influenza Type B Antigen Neg for Influ B NEG Arterial Blood pH 7.43 7.35-7.45 Arterial Blood Partial Pressure CO2 53 35-46 mmHg Arterial Blood Partial Pressure O2 73 80-95 mm/Hg Arterial Blood HCO3 34 19-24 mmol/L Arterial Blood Oxygen Saturation 93.7 90-95 % Arterial Blood Base Excess 8.8 -9-1.8 mEq/L Arterial Blood Gas Delivery 5L Aditya Test POS POS Test 01/09/17 17:55 01/09/17 17:58 01/09/17 18:00 01/09/17 21:40 Range/Units Creatine Kinase MB 1.2 0.5-3.6 ng/ml Troponin I 0.047 0.022 0-0.045 ng/ml Creatine Kinase MB Ratio 0-3.0 Sodium Level 142 136-145 mmol/L Potassium Level 4.5 3.5-5.1 mmol/L Chloride Level 103 98-107 mmol/L Carbon Dioxide Level 28 21-32 mmol/L Anion Gap 11.0 3-11 mmol/L Blood Urea Nitrogen 36 7-18 mg/dl Creatinine 1.70 0.60-1.20 mg/dl Est Creatinine Clear Calc Drug Dose 24.5 ml/min Estimated GFR () 34.3 Estimated GFR (Non- 29.6 BUN/Creatinine Ratio 21.3 10-20 Random Glucose 218 70-99 mg/dl Calcium Level 8.3 8.5-10.1 mg/dl Magnesium Level 2.0 1.8-2.4 mg/dl Thyroid Stimulating Hormone (TSH) 0.231 0.300-4.500 uIu/ml Chemistry Specimen Hemolysis Test 01/09/17 21:45 01/10/17 00:17 01/10/17 00:25 01/10/17 05:35 Range/Units Arterial Blood pH 7.36 7.44 7.35-7.45 Arterial Blood Partial Pressure CO2 61 53 35-46 mmHg Arterial Blood Partial Pressure O2 66 62 80-95 mm/Hg Arterial Blood HCO3 34 35 19-24 mmol/L Arterial Blood Oxygen Saturation 90.9 90.2 90-95 % Arterial Blood Base Excess 6.5 9.3 -9-1.8 mEq/L Arterial Blood Gas Delivery 5L 6L Aditya Test POS POS POS Estimated Average Glucose 117 mg/dl Hemoglobin A1c 5.7 4.5-5.6 % Free Thyroxine 1.15 0.80-1.60 ng/dl Total Triiodothyronine 0.60 0.60-1.81 ng/ml Influenza Type A (RT-PCR) Neg for Influ A NEG Influenza Type B (RT-PCR) Neg for Influ B NEG Sodium Level 143 136-145 mmol/L Potassium Level 4.2 3.5-5.1 mmol/L Chloride Level 101 98-107 mmol/L Carbon Dioxide Level 32 21-32 mmol/L Anion Gap 10.0 3-11 mmol/L Blood Urea Nitrogen 40 7-18 mg/dl Creatinine 1.40 0.60-1.20 mg/dl Est Creatinine Clear Calc Drug Dose 28.7 ml/min Estimated GFR () 43.4 Estimated GFR (Non- 37.4 BUN/Creatinine Ratio 28.4 10-20 Random Glucose 160 70-99 mg/dl Calcium Level 8.7 8.5-10.1 mg/dl Magnesium Level 2.0 1.8-2.4 mg/dl Test 01/10/17 05:39 Range/Units White Blood Count 8.59 4.8-10.8 K/uL Red Blood Count 3.43 4.2-5.4 M/uL Hemoglobin 10.2 12.0-16.0 g/dL Hematocrit 32.1 37-47 % Mean Corpuscular Volume 93.6 80-100 fL Mean Corpuscular Hemoglobin 29.7 25-34 pg Mean Corpuscular Hemoglobin Concent 31.8 32-36 g/dl RDW Standard Deviation 57.2 36.4-46.3 fL RDW Coefficient of Variation 16.7 11.5-14.5 % Platelet Count 114 130-400 K/uL Mean Platelet Volume 12.5 7.4-10.4 fL Prothrombin Time 19.4 9.0-12.0 SECONDS Prothromb Time International Ratio 1.8 0.9-1.1 Microbiology Results 01/09/17 Blood Culture, Received Pending 01/09/17 Blood Culture, Received Pending 01/09/17 MRSA DNA Surveillance Screen - Final, Complete Specimen Negative for MRSA by DNA Probe 01/10/17 Gram Stain - Final, Resulted 01/10/17 Sputum Culture, Resulted Pending
[2017-01-09] MEDS ORDERED: INVANZ~PHARMACY CONSULT IN PROGRESS PRN (22:00)
[2017-01-09] MEDS ORDERED: FUROSEMIDE INJ 60 MG in SYRINGE 0 ML IV ONE (22:00)
[2017-01-09] MEDS ORDERED: ERTAPENEM IV 1 GM in SODIUM CHLOR 0.9% AD-VAN 50ML 50 ML IV SCH (22:00)
[2017-01-09 22:01] LABS: ALLEN TEST POS (POS); ARTERIAL BLD GAS O2 SATURATION 90.9 % (90-95); ARTERIAL BLOOD GAS BASE EXCESS 6.5 mEq/L (-9-1.8); ARTERIAL BLOOD GAS HCO3 34 mmol/L (19-24); ARTERIAL BLOOD GAS PO2 66 mm/Hg (80-95); ARTERIAL BLOOD GAS pH 7.36 (7.35-7.45); O2 ADMINISTRATION 5L
[2017-01-09 22:15] VITALS: BP 126/76; PULSE 73; O2SAT 90
[2017-01-09 22:25] LABS: BUN/CREATININE RATIO 21.3 (10-20); CALCIUM 8.3 mg/dl (8.5-10.1); CREATININE 1.7 mg/dl (0.60-1.20); POTASSIUM 4.5 mmol/L (3.5-5.1); THYROID STIMULATING HORMONE 0.231 uIu/ml (0.300-4.500)
[2017-01-09] MEDS ORDERED: INSULIN GLARGINE SOLOSTAR 100 UNITS/ML 3 ML PEN SC ONE (22:40)
[2017-01-10] VITALS (17 sets, daily range): BP systolic 124–150; BP diastolic 60–66; PULSE 55–86; TEMP 36.4–37.3; O2SAT 88–98
[2017-01-10 00:29] LABS: ARTERIAL BLD GAS O2 SATURATION 90.2 % (90-95); ARTERIAL BLOOD GAS BASE EXCESS 9.3 mEq/L (-9-1.8); ARTERIAL BLOOD GAS HCO3 35 mmol/L (19-24); ARTERIAL BLOOD GAS PO2 62 mm/Hg (80-95); ARTERIAL BLOOD GAS pH 7.44 (7.35-7.45)
[2017-01-10 00:31] LABS: ALLEN TEST POS (POS); O2 ADMINISTRATION 6L
[2017-01-10] MEDS: ALBUT/IPRATROP 3MG/0.5MG NEB 3 ML VIAL INH SCH ×4 (02:21→20:39)
[2017-01-10 02:38] LABS: INFLUENZA A PCR Neg for Influ A (NEG); INFLUENZA B PCR Neg for Influ B (NEG)
[2017-01-10] MEDS: METHYLPREDNISOLONE IV 40 MG in SYRINGE 0 ML IV SCH ×3 (04:56→20:20)
[2017-01-10] MEDS: LEVOTHYROXINE 75 MCG TAB PO SCH (04:56)
[2017-01-10 06:11] LABS: HEMATOCRIT 32.1 % (37-47); MEAN CELL VOLUME 93.6 fL (80-100); MEAN CORPUSCULAR HEMOGLOBIN 29.7 pg (25-34); MEAN CORPUSCULAR HGB CONC 31.8 g/dl (32-36); MEAN PLATELET VOLUME 12.5 fL (7.4-10.4); PLATELET COUNT 114 K/uL (130-400); RED BLOOD COUNT 3.43 M/uL (4.2-5.4); WHITE BLOOD COUNT 8.59 K/uL (4.8-10.8)
[2017-01-10 06:14] LABS: ESTIMATED AVERAGE GLUCOSE 117 mg/dl; HA1C FLAG Normal (Normal)
[2017-01-10 06:14] LABS: INR 1.8 (0.9-1.1); PROTHROMBIN TIME (PATIENT) 19.4 SECONDS (9.0-12.0)
--- NOTE | 2017-01-10 06:18 | Clinical Documentation Query ---
Dr. [facility] : CLINICAL DOCUMENTATION QUERY Patient is a 71 year old female admitted with acute on chronic respiratory failure in the setting of RLL pneumonia, COPD exacerbation, and acute on chronic combined systolic and diastolic CHF. Noted documentation includes " due to patient's allergies and hx MRSA bacteremia, will place on Cefepime and Vanco". To avoid engineering operations leader uncertainty at time of discharge, please explicitly state the condition in which you are (possibly) treating. Thank you. In your clinical opinion is this patient being managed for: ( X ) Pneumonia (possibly) due to MRSA and/or gram negative bacteria ( ) Other explanation of clinical findings (Please Explain) ( ) Unable to determine (Please Define) ( ) Need to Discuss ( ) Not Agree The medical record reflects the following clinical findings, treatment, and risk factors. Clinical Indicators: History of MRSA bacteremia, Treatment: IV Vancomycin and Cefepime Risk Factors:MRSA history, age, COPD Please clarify and document your clinical opinion in the progress notes and discharge summary. Terms such as "probable", "suspected", "likely", "questionable", "possible", or "still to be ruled out" are acceptable. IF IN AGREEMENT, YOU MUST DOCUMENT ABOVE DIAGNOSTIC STATEMENT IN DAILY PROGRESS NOTES AND DISCHARGE SUMMARY. This document is not part of the patient's record. Thank You, Bright Mendes, SIMEON [phone]
[2017-01-10 06:35] LABS: BUN/CREATININE RATIO 28.4 (10-20); CALCIUM 8.7 mg/dl (8.5-10.1); CREATININE 1.4 mg/dl (0.60-1.20); POTASSIUM 4.2 mmol/L (3.5-5.1)
[2017-01-10] MEDS ORDERED: PERFLUTREN LIPID MICROSPHERE (DEFINITY) IV ONE (07:31)
[2017-01-10] MEDS: FLUTICASONE/SALMETEROL 250/50 (ADVAIR) 14 PUFF/1 INHALER INH SCH ×2 (08:11→20:20)
[2017-01-10] MEDS: FUROSEMIDE INJ 40 MG in SYRINGE 0 ML IV SCH (08:11)
[2017-01-10] MEDS: FLUTICASONE PROPIONATE NA SPR 16 GM BTL NAE SCH ×2 (08:12→20:20)
[2017-01-10] MEDS: HydrALAZINE 10 MG TAB PO SCH ×2 (08:13→20:20)
[2017-01-10] MEDS: PANTOprazole SOD 40 MG TAB PO SCH (08:14)
[2017-01-10] MEDS: FERROUS SULFATE 325 MG TAB PO SCH ×2 (08:14→20:20)
[2017-01-10] MEDS: MONTELUKAST SOD 10 MG TAB PO SCH (08:14)
[2017-01-10] MEDS: GABAPENTIN 600 MG TAB PO SCH ×2 (08:15→20:20)
[2017-01-10] MEDS: METOPROLOL SUCC 25MG EXT REL TAB PO SCH (08:18)
[2017-01-10] MEDS: INSULIN GLARGINE SOLOSTAR 100 UNITS/ML 3 ML PEN SC SCH (08:20)
--- NOTE | 2017-01-10 08:21 | Progress Note ---
Internal Med Progress Note Date of Service: Jan 10, 2017. Provider Documentation: SUBJECTIVE: Patient is seen and examined at bedside. States having cough with expectoration. Not a good historian. Denies any chest pain, dizziness, palpitations, abd pain. OBJECTIVE: Vital Signs-as noted below Physical Exam: General Appearance:Moderately built and nourished, no apparent distress Head: normocephalic, Atraumatic Eyes: normal inspection, EOMI, PERRLA Neck: supple, Trachea midline Respiratory/Chest: Decreased breath sounds, CTA Cardiovascular: S1, S2, No murmur Abdomen/GI:Soft, Non tender, Bowel sounds present Extremities/Musculoskelatal:normal inspection, Trace edema Neurologic/Psych:AAOX3, grossly no focal neurological deficits Skin: normal color, warm, Left side of chest, well healed surgical scar Lab data as noted below. ASSESSMENT & PLAN: ACUTE ON CHRONIC HYPOXIC RESPIRATORY FAILURE: MULTIFACTORIAL RLL PNEUMONIA: Likely gram negative/Possible aspiration COPD EXACERBATION ACUTE ON CHRONIC DIASTOLIC/SYSTOLIC CHF PULMONARY HYPERTENSION Continue monitoring in telemetry patient presented with worsening SOB, productive cough since 1 week: started on doxycycline by PCP on 01/02 CXR: findings suggestive of RLL pneumonia chronic oxygen dependency: 2-4 liters at home ABG:consistent with respiratory acidosis and metabolic alkalosis H/O MRSA bacteremia, Continue IV Vanco and Ertapenem, FU cultures Flu PCR:negative Continue IV steroids and bronchodilators Pulmonary consulted Last ECHO:04/2016 - EF 45-49%, moderate pulmonary hypertension continue IV lasix daily (Patient on Bumex 1mg daily at home) Recheck ECHO Monitor I/Os, daily weight, low salt diet cardiology consulted HEMOPTYSIS Reported by patient Coumadin on hold. INR 1.8 Also has thrombocytopenia Hb:10.2, baseline CT chest: ? pulmonary hemorrhage Await for Pulmonary input THROMBOCYTOPENIA Likely secondary acute illness continue to monitor Nausea/Vomiting/Diarrhea Likely post tussive emesis Follow up stool studies PAROXYSMAL AFIB currently in NSR H/O tachybrady s/p pacemaker however pacer removed due to lead vegetation rate controlled Continue beta lacho Coumadin on hold secondary to hemoptysis HTN controlled continue hydralazine and metoprolol CKD STAGE IV Baseline cr: mid - high 1's Cr:1.4 at baseline continue to monitor HYPOTHYROIDISM continue levothyroxine DVT PROPHYLAXIS Coumadin on hold SCDs for now CODE STATUS full code. DISPOSITION: Continue to monitor Vital Signs: Date Time Temp Pulse Resp B/P Pulse Ox O2 Delivery O2 Flow Rate FiO2 01/10/17 08:20 36.6 65 18 124/66 98 01/10/17 04:15 36.5 55 22 150/65 92 BiPAP 01/10/17 04:15 92 BiPAP 8.0 01/10/17 02:22 65 91 8.0 01/10/17 02:21 65 20 91 BiPAP/CPAP 8.0 01/10/17 00:15 91 BiPAP 6.0 01/10/17 00:02 36.4 66 18 143/60 91 BiPAP 6.0 01/09/17 22:28 6.0 01/09/17 22:15 73 18 126/76 90 BiPAP 01/09/17 21:25 62 93 5.0 01/09/17 20:10 61 18 94 Diffusion Mask 5.0 01/09/17 20:00 93 Mask 5.0 01/09/17 19:57 36.8 59 18 127/51 93 01/09/17 17:25 63 14 132/50 92 01/09/17 16:58 132/50 01/09/17 16:57 63 14 92 Mask 3.0 01/09/17 16:52 56 18 93 01/09/17 16:47 63 21 91 01/09/17 16:42 61 15 95 01/09/17 16:37 59 15 96 01/09/17 16:32 58 18 95 01/09/17 16:27 62 14 95 01/09/17 16:22 57 16 96 01/09/17 16:17 61 16 90 01/09/17 15:58 118/61 01/09/17 15:57 59 16 94 01/09/17 15:52 82 20 96 01/09/17 15:47 64 17 93 01/09/17 15:45 Mask 5.0 01/09/17 15:42 60 18 94 01/09/17 15:37 64 21 94 01/09/17 15:32 57 19 94 01/09/17 15:27 66 24 95 01/09/17 15:22 63 16 93 01/09/17 15:17 60 18 94 01/09/17 15:12 64 20 95 2/15/17 15:07 62 19 94 2/15/17 15:02 72 21 94 /15/17 14:58 132/55 15/17 14:57 63 17 93 15/17 14:52 67 18 94 15/17 14:47 64 21 92 /15/17 14:42 95 Mask 5.0 15/17 14:42 63 17 92 15/17 14:37 64 23 94 15/17 14:32 78 17 94 15/17 14:27 67 18 95 15/17 14:22 80 21 82 2/15/17 14:17 81 24 82 2/15/17 14:12 86 27 92 15/17 14:07 76 20 93 15/17 14:02 72 23 94 15/17 13:58 83 21 126/57 94 Mask 5.0 15/17 13:57 77 21 93 /15/17 13:52 71 20 92 15/17 13:47 68 20 87 15/17 13:42 72 24 88 15/17 13:37 74 20 88 2/15/17 13:32 72 19 87 2/15/17 13:27 66 22 87 2/15/17 13:22 64 25 95 15/17 13:17 64 20 95 15/17 13:12 64 20 95 15/17 13:07 60 16 96 /15/17 13:02 68 17 96 2/15/17 12:58 126/57 01/09/ 12:57 62 23 93 15/17 12:52 57 18 94 15/17 12:47 57 19 94 215/17 12:46 60 18 91 Nasal Cannula 5.0 01/09/17 12:43 65 26 120/85 93 Nebulizer 15/ 12:42 63 25 93 15/17 12:37 63 29 92 15/17 12:32 69 17 91 15/17 12:27 60 20 89 15/17 12:22 62 18 92 /15/17 12:20 65 /15/17 12:17 60 19 90 15/ 12:12 56 23 91 15/17 12:07 62 17 90 215 12:03 91 Nasal Cannula 5.0 01/09/17 12:02 64 23 85 01/09/17 11:59 120/85 01/09/17 11:57 62 21 89 01/09/17 11:52 70 18 92 01/09/17 11:47 61 18 89 01/09/17 11:42 66 21 89 01/09/17 11:37 61 18 87 01/09/17 11:32 65 18 87 01/09/17 11:27 67 22 88 01/09/17 11:23 92 Nasal Cannula 5.0 01/09/17 11:18 37.5 64 22 146/75 83 Nasal Cannula 3.0 01/09/17 11:13 146/75 Lab Results: Results Past 24 Hours Test 01/09/17 12:20 01/09/17 12:32 01/09/17 12:40 01/09/17 13:59 Range/Units White Blood Count 8.18 4.8-10.8 K/uL Red Blood Count 3.38 4.2-5.4 M/uL Hemoglobin 10.1 12.0-16.0 g/dL Hematocrit 32.1 37-47 % Mean Corpuscular Volume 95.0 80-100 fL Mean Corpuscular Hemoglobin 29.9 25-34 pg Mean Corpuscular Hemoglobin Concent 31.5 32-36 g/dl Platelet Count 116 130-400 K/uL Mean Platelet Volume 12.5 7.4-10.4 fL Neutrophils (%) (Auto) 75.9 % Lymphocytes (%) (Auto) 12.3 % Monocytes (%) (Auto) 10.4 % Eosinophils (%) (Auto) 1.0 % Basophils (%) (Auto) 0.2 % Neutrophils # (Auto) 6.20 1.4-6.5 K/uL Lymphocytes # (Auto) 1.01 1.2-3.4 K/uL Monocytes # (Auto) 0.85 0.11-0.59 K/uL Eosinophils # (Auto) 0.08 0-0.5 K/uL Basophils # (Auto) 0.02 0-0.2 K/uL RDW Standard Deviation 57.9 36.4-46.3 fL RDW Coefficient of Variation 16.8 11.5-14.5 % Immature Granulocyte % (Auto) 0.2 % Immature Granulocyte # (Auto) 0.02 0.00-0.02 K/uL Platelet Estimate DECREASED Ovalocytes 1+ Prothrombin Time 15.4 9.0-12.0 SECONDS Prothromb Time International Ratio 1.4 0.9-1.1 Activated Partial Thromboplast Time 29.5 21.0-31.0 SECONDS Partial Thromboplastin Ratio 1.1 Sodium Level 144 136-145 mmol/L Potassium Level 4.4 3.5-5.1 mmol/L Chloride Level 104 98-107 mmol/L Carbon Dioxide Level 32 21-32 mmol/L Anion Gap 8.0 3-11 mmol/L Blood Urea Nitrogen 39 7-18 mg/dl Creatinine 1.40 0.60-1.20 mg/dl Est Creatinine Clear Calc Drug Dose 29.7 ml/min Estimated GFR () 43.4 Estimated GFR (Non- 37.4 BUN/Creatinine Ratio 27.6 10-20 Random Glucose 96 70-99 mg/dl Calcium Level 8.9 8.5-10.1 mg/dl Total Bilirubin 0.7 0.2-1 mg/dl Aspartate Amino Transf (AST/SGOT) 14 15-37 U/L Alanine Aminotransferase (ALT/SGPT) 13 12-78 U/L Alkaline Phosphatase 57 45-117 U/L Total Protein 6.6 6.4-8.2 gm/dl Albumin 3.3 3.4-5.0 gm/dl Globulin 3.3 2.5-4.0 gm/dl Albumin/Globulin Ratio 1.0 0.9-2 Bedside Lactic Acid Venous 0.87 0.90-1.70 mmol/L Bedside Troponin I 0.030 0-0.045 ng/ml IG-Aog-T-Type Natriuretic Peptide 4300 0-900 pg/ml Influenza Type A Antigen Neg for Influ A NEG Influenza Type B Antigen Neg for Influ B NEG Arterial Blood pH 7.43 7.35-7.45 Arterial Blood Partial Pressure CO2 53 35-46 mmHg Arterial Blood Partial Pressure O2 73 80-95 mm/Hg Arterial Blood HCO3 34 19-24 mmol/L Arterial Blood Oxygen Saturation 93.7 90-95 % Arterial Blood Base Excess 8.8 -9-1.8 mEq/L Arterial Blood Gas Delivery 5L Aditya Test POS POS Test 01/09/17 17:55 01/09/17 17:58 01/09/17 18:00 01/09/17 21:40 Range/Units Creatine Kinase MB 1.2 0.5-3.6 ng/ml Troponin I 0.047 0.022 0-0.045 ng/ml Creatine Kinase MB Ratio 0-3.0 Sodium Level 142 136-145 mmol/L Potassium Level 4.5 3.5-5.1 mmol/L Chloride Level 103 98-107 mmol/L Carbon Dioxide Level 28 21-32 mmol/L Anion Gap 11.0 3-11 mmol/L Blood Urea Nitrogen 36 7-18 mg/dl Creatinine 1.70 0.60-1.20 mg/dl Est Creatinine Clear Calc Drug Dose 24.5 ml/min Estimated GFR () 34.3 Estimated GFR (Non- 29.6 BUN/Creatinine Ratio 21.3 10-20 Random Glucose 218 70-99 mg/dl Calcium Level 8.3 8.5-10.1 mg/dl Magnesium Level 2.0 1.8-2.4 mg/dl Thyroid Stimulating Hormone (TSH) 0.231 0.300-4.500 uIu/ml Chemistry Specimen Hemolysis Test 01/09/17 21:45 01/10/17 00:17 01/10/17 00:25 01/10/17 05:35 Range/Units Arterial Blood pH 7.36 7.44 7.35-7.45 Arterial Blood Partial Pressure CO2 61 53 35-46 mmHg Arterial Blood Partial Pressure O2 66 62 80-95 mm/Hg Arterial Blood HCO3 34 35 19-24 mmol/L Arterial Blood Oxygen Saturation 90.9 90.2 90-95 % Arterial Blood Base Excess 6.5 9.3 -9-1.8 mEq/L Arterial Blood Gas Delivery 5L 6L Aditya Test POS POS POS Estimated Average Glucose 117 mg/dl Hemoglobin A1c 5.7 4.5-5.6 % Free Thyroxine 1.15 0.80-1.60 ng/dl Total Triiodothyronine 0.60 0.60-1.81 ng/ml Influenza Type A (RT-PCR) Neg for Influ A NEG Influenza Type B (RT-PCR) Neg for Influ B NEG Sodium Level 143 136-145 mmol/L Potassium Level 4.2 3.5-5.1 mmol/L Chloride Level 101 98-107 mmol/L Carbon Dioxide Level 32 21-32 mmol/L Anion Gap 10.0 3-11 mmol/L Blood Urea Nitrogen 40 7-18 mg/dl Creatinine 1.40 0.60-1.20 mg/dl Est Creatinine Clear Calc Drug Dose 28.7 ml/min Estimated GFR () 43.4 Estimated GFR (Non- 37.4 BUN/Creatinine Ratio 28.4 10-20 Random Glucose 160 70-99 mg/dl Calcium Level 8.7 8.5-10.1 mg/dl Magnesium Level 2.0 1.8-2.4 mg/dl Test 01/10/17 05:39 Range/Units White Blood Count 8.59 4.8-10.8 K/uL Red Blood Count 3.43 4.2-5.4 M/uL Hemoglobin 10.2 12.0-16.0 g/dL Hematocrit 32.1 37-47 % Mean Corpuscular Volume 93.6 80-100 fL Mean Corpuscular Hemoglobin 29.7 25-34 pg Mean Corpuscular Hemoglobin Concent 31.8 32-36 g/dl RDW Standard Deviation 57.2 36.4-46.3 fL RDW Coefficient of Variation 16.7 11.5-14.5 % Platelet Count 114 130-400 K/uL Mean Platelet Volume 12.5 7.4-10.4 fL Prothrombin Time 19.4 9.0-12.0 SECONDS Prothromb Time International Ratio 1.8 0.9-1.1 Microbiology Results 01/09/17 Blood Culture, Received Pending 01/09/17 Blood Culture, Received Pending 01/09/17 MRSA DNA Surveillance Screen - Final, Complete Specimen Negative for MRSA by DNA Probe 01/10/17 Gram Stain - Final, Resulted 01/10/17 Sputum Culture, Resulted Pending
[2017-01-10] MEDS ORDERED: OXYBUTYNIN CHLORIDE 5 MG TABCR PO SCH (09:00)
[2017-01-10] MEDS ORDERED: SENNA 8.6 MG TAB PO SCH (09:00)
--- NOTE | 2017-01-10 10:48 | PULMONARY CONSULTATION ---
DATE OF CONSULTATION: 01/10/2017 TIME: 09:35 a.m. REPORT OF CONSULTATION: The patient was seen in room #204. She is a 71-year-old female who reportedly became ill shortly before December. She developed a cough. She had some shortness of breath. She saw her family physician, who started her on doxycycline. She had progressive shortness of breath. The patient wears oxygen at home between 2 and 4 liters. The patient states her mucus was a lot more than normal for her. It started off yellow, then changed to brown and then to green. Yesterday and today, she coughed up some blood. It is not clear how much blood she actually had. It does not sound like it was very large quantities. Reportedly, she had some vomiting after some severe coughing spells. The patient herself is a very poor historian. Reportedly, she has had some diarrhea and lower abdominal pain, which has resolved. She was admitted yesterday afternoon. Last evening, the patient was somewhat unresponsive. They did a blood gas on her that showed worsening of her carbon dioxide levels. She was put on BiPAP. The patient admits to having a diagnosis of sleep apnea made several years ago. She was never treated, however. I get the sense that she was bothered by something on her face. She may not have even gotten the CPAP at home or else she wore it very little. I do not have those confirmatory records from the sleep evaluation. She is feeling better this morning. She hated the BiPAP apparently. She states she did not sleep all night. She is still coughing somewhat. The patient states that she had asthma diagnosed when she was in high school and that she had asthma throughout her life. Her clinical findings are acting more like COPD. At first, she told me she had only smoked for a very short time, but in actuality, she admits to smoking about a pack per day for 30 years. She quit smoking in 2004 reportedly. PAST SURGICAL HISTORY: 1. Cardiac ablation x2. 2. ASD repair in 2007. 3. Right nephrectomy for a benign disease. 4. Pacemaker insertion that was subsequently removed because of infection. 5. Appendectomy. 6. Thyroid surgery. PAST MEDICAL HISTORY: 1. Hypertension. 2. Atrial fibrillation. 3. Anemia. 4. Chronic kidney disease, stage IV. 5. GERD. 6. Coronary artery disease. 7. Hyperlipidemia. 8. Hypothyroidism. 9. Decreased ejection fraction to 45%-49%. 10. MRSA bacteremia and SBE. 11. Sleep apnea as noted. FAMILY HISTORY: Mother is living, age 95, generally in good health. Father in his 60s from heart disease and had some type of bowel problems. ALLERGIES: LISTED ALLERGIES TO LEVOFLOXACIN, RANITIDINE, SULFAMETHOXAZOLE/TRIMETHOPRIM, CLARITHROMYCIN, AMOXICILLIN, AND OMEPRAZOLE. BREATHING MEDICATIONS AT HOME: Include, 1. Advair 250/50 one puff daily as per the patient. 2. Oxygen as noted 2-4 liters. 3. ProAir RespiClick and the chart lists nebulizer with albuterol, although the patient did not confirm that with me. REVIEW OF SYSTEMS: Very difficult to obtain as the patient is a poor historian. She does admit to having some nasal congestion and some nasal coryza. She states that she has arthritis. Her knees hurt. She thinks she may have had a slight fever. Denies chills or sweats. The remainder of review of systems is unremarkable with a limitation that she was not a good historian. PHYSICAL EXAMINATION: GENERAL: The patient is a 71-year-old female who was cooperative and alert. She seemed comfortable at rest. VITAL SIGNS: Temperature this morning is 36.6. Maximum temperature yesterday was 37.5. BMI is 29.5. HEENT: Pupils were reactive to light. She wears corrective lenses. Nares were unremarkable. Mouth showed an absence of teeth. Membranes were dry. NECK: Palpation of the neck reveals no lymph nodes. She has excessive soft tissue in the supraclavicular areas bilaterally. She states this has been for many years. CHEST: Inspection of the chest reveals a scar in the right anterior chest, apparently related to her prior cardiac surgery. Heart rate is 69 per minute. The rhythm is somewhat irregular. Auscultation revealed rales posteriorly bilaterally. This was more in the lung bases. Respiratory rate was 20 breaths per minute. Oxygen saturation is 98% on a simple mask. Blood pressure this morning is 124/66. ABDOMEN: Soft. Bowel sounds were normal. There was no tenderness to palpation, masses, or organomegaly. EXTREMITIES: Revealed that her legs were wrapped with compression stockings. Her legs do appear edematous. There was no cyanosis or clubbing. DIAGNOSTIC STUDIES: Chest x-ray on admission showed marked cardiomegaly with a new right lower lobe airspace change representing probable pneumonia. There was marked enlargement of the pulmonary arteries. A CAT scan of the chest showed evidence of dilation of the central pulmonary arteries and wall calcification of the pulmonary arteries consistent with severe pulmonary hypertension. Interlobar septal thickening was suggested for pulmonary edema. Findings were suggestive of tracheobronchomalacia. She had infiltrates in both lung bases and in the right middle lobe, which I believe represents pneumonic infiltrates. I think that is more likely than pulmonary edema. Chest x-ray done earlier this morning suggested bibasilar infiltrates. LABORATORY DATA: Electrolytes yesterday showed sodium 142, potassium 4.5, chloride 103, and bicarb 28. BUN was 36 with a creatinine of 1.7. GFR was only 29.6. Troponin was 0.047. Repeat was 0.022. TSH level was 0.231, which is low. Today, the BUN is 40 with a creatinine of 1.4. Hemoglobin A1c was 5.7. Blood gas done yesterday afternoon at 02:00 p.m. showed a pH of 7.43 with a pCO2 of 53 and pO2 of 73 on 5 liters. Repeat blood gas at 09:45 p.m. showed a pH of 7.36 with a pCO2 of 61 and a pO2 of 66 on 5 liters. Blood gas repeated at 12:17 a.m. showed a pH of 7.44 with a pCO2 of 53 and a pO2 of 62 and I believe this was done on BiPAP. White count this morning is 8.59. Hemoglobin 10.2. Platelets are 114,000. These results are similar to yesterday. Flu test was negative. Urine for legionella antigen is pending. IMPRESSIONS: 1. Respiratory failure. 2. Bilateral pneumonia. 3. Chronic obstructive pulmonary disease. 4. Tracheobronchomalacia. 5. Hemoptysis. 6. Pulmonary hypertension. 7. Obstructive sleep apnea. COMMENTS: The patient has respiratory failure with both hypoxia and hypercarbia. She seems better this morning than what she apparently was last night. She did not like BiPAP, but it may have helped. With regards to the BiPAP, I would try it again tonight, but would lower the pressure down to 10/5. I have ordered this. She may tolerate this better and be more compliant with it. Sputums apparently were collected and no organisms were seen with a few polys. It is unknown if it was a good specimen, however. Nasal swab for MRSA was negative. Blood cultures are pending. The patient's choice for antibiotics is difficult because of her numerous allergies. She currently is on ertapenem and vancomycin. Consideration might be given to adding Zithromax until the legionella titers return. Reportedly, she can take Zithromax without difficulty. Our goal for oxygenation is to keep her saturations approximately 90%. We do not want to keep the oxygen too high because of her apparent chronic carbon dioxide retention. Her initial blood gas showed an elevation of pCO2 with a normal pH, suggesting that her baseline pCO2 is 53. She is on nebulizer treatments and I would continue that. We probably should check a sputum for cytology, although I think malignancy is less likely in this scenario. She did have a long history of smoking, however. Thank you very much for asking me to assist in her care. JUHI
--- NOTE | 2017-01-10 11:10 | ECHOCARDIOGRAM REPORT ---
*NOTICE TO RECEIVING DEMOCRAT AGENCY This information is strictly Confidential and protected under [place] law. [place] law prohibits you from making any further disclosure of this information unless further disclosure is expressly permitted by the written consent of the person to whom it pertains or is authorized by law. A general authorization for the release of medical or other information is not sufficient for this purpose. Hospital accepts no responsibility if the information is made available to any other person, INCLUDING THE PATIENT. Interpretation Summary * Name: CRISTEL PERLA Study Date: 01/10/2017 06:59 AM BP: 150/65 mmHg * Patient Location: C.2E\S\E204\S\1 HR: 55 * : 1945 (M/d/yyyy) Gender: Female Height: 58 in * Age: 71 yrs Ethnicity: CA Weight: 150 lb * Ordering Physician: Kylah Shanks * Performed By: Elsa Pritchard * * Reason For Study: CHF * BSA: 1.6 m2 * -- Conclusions -- * Severe pulmonary hypertension * The right ventricle is severely dilated. * The right ventricular systolic function is severely reduced. * The right atrium is severely dilated. * There is severe tricuspid regurgitation. * Flattened septum is consistent with RV pressure overload. * There is moderate concentric left ventricular hypertrophy. * Ejection Fraction = 60-65%. * Prolapse of the anterior mitral leaflet. * There is mild to moderate mitral regurgitation. Procedure Details * A complete two-dimensional transthoracic echocardiogram was performed (2D, M-mode, Doppler and color flow Doppler). * A contrast injection of Definity was performed to improve assessment of LV function. * Contrast was injected into an intravenous site in the left arm. * Lot # [id number] of Definity utilized for procedure. * One vial of Definity ultrasound contrast was diluted in normal saline to a total volume of 10 ml. A total of '3' ml of solution was administered during imaging. * Expiration date 01/12. * The attending nurse who injected the contrast agent was FABRICIO HUBBARD RN. Left Ventricle * The left ventricle is normal in size. * There is moderate concentric left ventricular hypertrophy. * Ejection Fraction = 60-65%. * The left ventricular wall motion is normal at rest. * Flattened septum is consistent with RV pressure overload. Right Ventricle * The right ventricle is severely dilated. * The right ventricular systolic function is severely reduced. Atria * The left atrium is severely dilated. * The right atrium is severely dilated. * The interatrial septum is intact with no evidence for an atrial septal defect. Mitral Valve * Prolapse of the anterior mitral leaflet. * There is mild mitral valve prolapse. * There is mild to moderate mitral regurgitation. Tricuspid Valve * The tricuspid valve is not well visualized, but is grossly normal. * There is severe tricuspid regurgitation. Aortic Valve * The aortic valve is tricuspid. The leaflet thickness if normal. There is no aortic stenosis, and no significant insufficiency. * No hemodynamically significant valvular aortic stenosis. * There is no significant aortic regurgitation. Pulmonic Valve * The pulmonic valve is not well seen, but is grossly normal. * Moderate pulmonic valvular regurgitation. Great Vessels * Severe pulmonary hypertension * Dilated inferior vena cava with reduced collapsability with sniff indicates an elevated right atrial pressure of 15 mmHg MMode 2D Measurements and Calculations IVSd 1.3 cm IVSs 1.6 cm LVIDd 4.7 cm LVIDs 3.0 cm LVPWd 1.2 cm LVPWs 1.6 cm IVS/LVPW 1.1 FS 36.4 % EDV(Teich) 101.4 ml ESV(Teich) 34.3 ml EF(Teich) 66.2 % EDV(cubed) 102.5 ml ESV(cubed) 26.3 ml EF(cubed) 74.3 % % IVS thick 17.6 % % LVPW thick 30.5 % LV mass(C)d 231.8 grams LV mass(C)dI 143.8 grams/m\S\2 LV mass(C)s 172.4 grams LV mass(C)sI 107.0 grams/m\S\2 CO(Teich) 3.5 l/min CI(Teich) 2.2 l/min/m\S\2 SV(Teich) 67.0 ml SI(Teich) 41.6 ml/m\S\2 CO(cubed) 4.0 l/min CI(cubed) 2.5 l/min/m\S\2 SV(cubed) 76.2 ml SI(cubed) 47.3 ml/m\S\2 ACS 1.2 cm LA dimension 4.3 cm asc Aorta Diam 2.6 cm LVOT diam 1.5 cm LVOT area 1.8 cm\S\2 LVAd ap4 25.6 cm\S\2 LVLd ap4 7.3 cm EDV(MOD-sp4) 74.0 ml LVAs ap4 14.8 cm\S\2 LVLs ap4 6.2 cm ESV(MOD-sp4) 29.0 ml EF(MOD-sp4) 60.8 % LVAd ap2 24.5 cm\S\2 LVLd ap2 6.9 cm EDV(MOD-sp2) 71.0 ml LVAs ap2 14.2 cm\S\2 LVLs ap2 6.0 cm ESV(MOD-sp2) 28.0 ml EF(MOD-sp2) 60.6 % CO(MOD-sp4) 2.3 l/min CI(MOD-sp4) 1.5 l/min/m\S\2 SV(MOD-sp4) 45.0 ml SI(MOD-sp4) 27.9 ml/m\S\2 CO(MOD-sp2) 2.2 l/min CI(MOD-sp2) 1.4 l/min/m\S\2 SV(MOD-sp2) 43.0 ml SI(MOD-sp2) 26.7 ml/m\S\2 Doppler Measurements and Calculations MV E max julio 98.1 cm/sec MV A max julio 97.2 cm/sec MV E/A 1.0 MV dec time 0.18 sec Ao V2 max 192.0 cm/sec Ao max PG 14.7 mmHg Ao max PG (full) 10.5 mmHg Ao V2 mean 117.2 cm/sec Ao mean PG 6.5 mmHg Ao mean PG (full) 4.4 mmHg Ao V2 VTI 52.0 cm JOCY(I,A) 0.96 cm\S\2 JOCY(I,D) 0.96 cm\S\2 JOCY(V,A) 0.95 cm\S\2 JOCY(V,D) 0.95 cm\S\2 LV V1 max PG 4.2 mmHg LV V1 mean PG 2.1 mmHg LV V1 max 102.7 cm/sec LV V1 mean 66.6 cm/sec LV V1 VTI 28.2 cm MR max julio 506.3 cm/sec MR max PG 102.5 mmHg SV(LVOT) 50.1 ml SI(LVOT) 31.1 ml/m\S\2 PA V2 max 70.0 cm/sec PA max PG 2.0 mmHg PI end-d julio 134.5 cm/sec TR max julio 360.9 cm/sec
[2017-01-10] MEDS: GABAPENTIN 300 MG CAP PO SCH (13:30)
[2017-01-10] MEDS ORDERED: CEFEPIME IV 2,000 MG in DEXTROSE 5% 100ML 100 ML IV SCH (14:00)
--- NOTE | 2017-01-10 14:15 | Cardiology Consultation ---
Cardiology Consultation Cardiology Consultation: Date: 01/10/17 Attending Contract Management Specialist: Dr. Mike HPI: Patient is a 71 year old female with a complex history as below. She is a poor historian and most of this information was obtained from prior medical records and admission HPI. She presented To [facility] yesterday with complaints of worsening respiratory distress and lethargy according to the patient 's daughter. Over the last several weeks she was treated for bronchitis by her PCP with antibiotics and steroids with no significant improvement. She also noted mild lower extremity edema over the last several days. On admission she was found to be hypoxic despite her supplemental O2 which she wears chronically. She was started on nebulizers, steroids, antibiotics, and IV diuretics. Overnight she was found to have worsening hypoxia and required BiPAP therapy which patient refused. She has had frequent ABGs which pulmonary is following and making recommendations. She has receive several doses of IV Lasix with improvement in her lower extremity edema and vascular congestion on xray. Chest x-ray continues to show bilateral lower lobe pneumonia. At time of consultation is in bed resting comfortably in no acute distress. She denies recent chest pain. She denies complaints of shortness of breath at rest. She notes ongoing cough with sputum production. She states this was brown and blood tinged yesterday but now clear. She denies dizziness, syncope or near-syncope. No sense of palpitations. No fever or chills. No orthopnea, PND. She states lower extremity edema has improved from admission. Review of systems: See HPI for pertinent positives. All other 10 point review of systems is negative. PAST MEDICAL HISTORY: 1. Paroxysmal atrial flutter status post ablation 07/2015. 2. Paroxysmal atrial fibrillation with tachybrady syndrome, status post pacemaker implantation in 2009, pacemaker removal in 2010 secondary to bacteremia and questionable vegetation. 3. Chronic kidney disease stage IV. 4. Cor pulmonale, severe pulmonary hypertension, on chronic oxygen therapy. 5. ASD repair later in life. 6. Chronic combined systolic and diastolic heart failure. 7. Dyslipidemia. 8. GERD. 9. REGI and ARB intolerance secondary to chronic kidney disease. 10. JOSIAS. 11. Chronic rhinitis. 12. Chronic anemia. 13. Bradycardia 14. Hypothyroidism 15. DM type II 16. Mild coronary artery disease by catheterization in 2007. 17. GERD. 18. Questionable history of transient ischemic attacks. 19. History of bleeding ulcers. PAST SURGICAL HISTORY: 1. Pacemaker implantation in 2009. 2. Pacer explant 2010. 3. Right nephrectomy. 4. Thyroidectomy, partial. 5. Appendectomy. 6. Tonsillectomy. 7. Colonoscopy. 8. ASD repair 2007 SOCIAL HISTORY: Former tobacco abuse, quit 2004 [id number] history. She is and lives with family. FAMILY HISTORY: Negative for premature CAD or sudden cardiac , however noncontributory given patient's advanced age. Review of patient's allergies indicates: Amoxicillin Clarithromycin Levofloxacin -Hives Omeprazole Quinolones Ranitidine Hcl [Ranitidine Hcl] Sulfa [Sulfa Antibiotics] -Hives Reported Home Medications Medications Dose Route/Sig Max Daily Dose Days Date Category Dose Instructions Protonix (Pantoprazole) 40 Mg Tab 40 Mg PO DAILY 01/09/17 Reported Jantoven (Warfarin Sodium) 5 Mg Tab 5 Mg PO UD 01/09/17 Reported saturday, saturday, Doxycycline Hyclate 100 Mg Cap 100 Mg PO BID 01/09/17 Reported started on 01/02 - ordered for 10 days Proventil 0.083% 2.5MG/3ML (Albuterol Sulf) 2.5 Mg/3 Ml Nebu 2.5 Mg INH Q4H PRN 01/09/17 Reported Proair Respiclick (Albuterol Sulfate) 108 Mcg/Act Aer 2 Puffs INH QID PRN 01/09/17 Reported Bumetanide 1 Mg Tab 1 Mg PO DAILY 30 06/14/16 Rx Jantoven (Warfarin Sodium) 2.5 Mg Tab 2.5 Mg PO UD 06/08/16 Reported saturday, saturday, saturday, saturday Levothyroxine Sodium 75 Mcg Tab 75 Mcg PO DAILY 06/08/16 Reported Hydralazine HCl 10 Mg Tab 10 Mg PO BID 06/08/16 Reported Metoprolol Succinate ER (Metoprolol Succinate) 25 Mg Tabcr 12.5 Mg PO DAILY 06/08/16 Reported Iron (Ferrous Sulfate) 325 Mg Tab 1 Tab PO BID 06/08/16 Reported Senna Lax (Senna) 8.6 Mg Tab 8.6 Mg PO QAM 30 04/16/16 Rx Oxygen Gas 2-3 Liters NA CONTINOUS 04/13/16 Reported Incruse Ellipta (Umeclidinium [place]) 62.5 Mcg/Inh Inh 1 Inha INH DAILY 04/13/16 Reported Singulair (Montelukast Sodium) 10 Mg Tab 1 Tab PO DAILY 90 02/02/16 Rx Nitrostat (Nitroglycerin) 0.4 Mg Tab 0.4 Mg SL PRN UD 08/13/15 Reported Flonase Allergy Relief (Fluticasone Propionate (Nasal)) 50 Mcg/Act Spr 1 Jackson PAULIE BID 08/13/15 Reported Neurontin (Gabapentin) 300 Mg Cap 600 Mg PO AMHS 01/17/15 Reported Neurontin (Gabapentin) 300 Mg Cap 300 Mg PO DAILY 01/17/15 Reported lunch time Advair Diskus 250/50 60 Dose (Fluticasone Prop/Salmeterol) 1 Ea Aerp 1 Puff INH BID 07/16/14 Reported Calcitriol 0.25 Mcg Cap 1 Cap PO MWF 07/16/14 Reported Pravastatin Sodium 80 Mg Tab 80 Mg PO QPM 07/16/14 Reported Oxybutynin Chloride Er (Oxybutynin Chloride) 5 Mg Tab 5 Mg PO DAILY 07/16/14 Reported Aricept (Donepezil Hydrochloride) 10 Mg Tab 10 Mg PO HS 03/01/12 Reported PHYSICAL EXAMINATION: Last 8 Hrs Date Time Temp Pulse Resp B/P Pulse Ox O2 Delivery O2 Flow Rate FiO2 01/10/17 08:20 36.6 65 18 124/66 98 01/10/17 04:15 36.5 55 22 150/65 92 BiPAP 01/10/17 04:15 92 BiPAP 8.0 01/10/17 02:22 65 91 8.0 01/10/17 02:21 65 20 91 BiPAP/CPAP 8.0 GENERAL: She is alert and oriented. HEENT: Normocephalic. Pupils are equal and reactive to light. Extraocular muscles are intact bilaterally. NECK: The neck veins are flat. Carotids have good upstrokes bilaterally without bruits. Thyroid is nonpalpable. RESPIRATORY: Decreased breath sounds bilaterally with scattered rhonchi and bibasilar rales. CARDIOVASCULAR: Heart has a regular rhythm. Normal S1, S2. No S3, S4. No cardiac rubs or murmurs. GASTROINTESTINAL: Abdomen is soft, nontender without organomegaly. EXTREMITIES: Free of edema, digit clubbing, or cyanosis. NEUROLOGIC: Grossly intact. SKIN: Warm to touch. LYMPH NODES: Negative to palpation. DATA: EKG on admission: Normal sinus rhythm with pac Right bundle branch block Left anterior fascicular block Bifascicular block Abnormal ECG When compared with ECG of 13-JUL-2016 12:00, No significant change was found Telemetry reviewed: NSR with frequent PAC's and 15 beat run of non sustained VT vs wide complex tachycardia, unspecified occurring around 2:30 AM. Chest xray: IMPRESSION: Bibasilar infiltrates. Developing pulmonary vascular congestion. Echo reviewed, dated 04/2016 at [facility]: Interpretation Summary The examination is adequate to evaluate the referral indication. The left ventricular cavity size is normal. The LV wall thickness is mildly increased (concentric). The septal motion is abnormal consistent with right ventricular pressure and volume overload. There is borderline diffuse left ventricular hypokinesis. There are no apical or regional wall motion abnormalities The qualitative LV ejection fraction is 45-49% (mildly reduced). The left atrium is severely enlarged (>39 ml/m^2, area length). The right atrium is moderately enlarged. Moderate mitral regurgitation is present. Moderate tricuspid regurgitation is present. Moderate pulmonary hypertension is present. IMPRESSION: 1. Acute on chronic Respiratory failure, multifactorial secondary to b/l pneumonia, COPD exacerbation and superimposed decompensated systolic/right heart failure -Recommend continuing IV diuretics today with close monitoring of creatinine and fluid status, appears improved from admission. edema resolved -continue antibiotics, nebs, steroids, Bipap per pulmonology 2. Paroxysmal atrial fib/flutter s/p 2 ablations, most recently in 2016. currently NSR -continue low dose metoprolol -Coumadin on hold due to questionable hemoptysis? 3. Chronic biventricular heart failure, last LVEF 45% with dilated RV and severe pulm hypertension -echo pending 4. 15 beat run of non sustained VT vs wide complex tachycardia - History of tachybrady syndrome with prior pacemaker implant and explant s/p vegetation -tolerating low dose beta lacho. Will not increase -likely resulting from hypoxia -maintain electrolyte balance with IV diuresis. Case discussed with Dr. Mike. Will follow during hospital course. (Funmi Ding PA-C) CARDIOLOGY ATTENDING ADDENDUM: The patient was seen and personally examined. Agree with Funmi Timur, PA-C's findings and plans as documented above. Mostly seems to be related to the patient's underlying lung disease. We will help where we can. (Carrillo Mike, DO)
[2017-01-10] MEDS: VANCOMYCIN INJ 850 MG in SODIUM CHLORIDE 0.9% 250ML 250 ML IV SCH (16:49)
[2017-01-10] MEDS: PRAVASTATIN SOD 40 MG TAB PO SCH (20:20)
[2017-01-10] MEDS: DONEPEZIL HCL 10 MG TAB PO SCH (20:20)
[2017-01-10] MEDS: ERTAPENEM IV 500 MG in SODIUM CHLORIDE 0.9% 50ML 50 ML IV SCH (21:02)
[2017-01-11] VITALS (15 sets, daily range): BP systolic 137–167; BP diastolic 62–83; PULSE 52–82; TEMP 36.4–37.2; O2SAT 88–98
[2017-01-11] MEDS: ALBUT/IPRATROP 3MG/0.5MG NEB 3 ML VIAL INH SCH ×4 (03:55→19:30)
[2017-01-11] MEDS: METHYLPREDNISOLONE IV 40 MG in SYRINGE 0 ML IV SCH ×3 (04:55→20:41)
[2017-01-11 06:24] LABS: INR 1.6 (0.9-1.1); PROTHROMBIN TIME (PATIENT) 17.6 SECONDS (9.0-12.0)
[2017-01-11 06:45] LABS: BUN/CREATININE RATIO 32.1 (10-20); CALCIUM 8.8 mg/dl (8.5-10.1); CREATININE 1.6 mg/dl (0.60-1.20)
[2017-01-11 06:53] LABS: BASO % 0.1 %; BASO ABS # 0.01 K/uL (0-0.2); COMPLETE YES; HEMATOCRIT 31.1 % (37-47); IG% 0.2 %; LYMPH % 3.5 %; LYMPH ABS # 0.41 K/uL (1.2-3.4); MEAN CELL VOLUME 90.9 fL (80-100); MEAN CORPUSCULAR HEMOGLOBIN 29.8 pg (25-34); MEAN CORPUSCULAR HGB CONC 32.8 g/dl (32-36); MEAN PLATELET VOLUME 11.9 fL (7.4-10.4); MONO % 1.6 %; NEUT % 94.6 %; OVALOCYTES 1+; PLATELET COUNT 105 K/uL (130-400); PLT ESTIMATE DECREASED; RED BLOOD COUNT 3.42 M/uL (4.2-5.4); TEAR DROP CELLS OCCASIONAL; WHITE BLOOD COUNT 11.75 K/uL (4.8-10.8)
--- NOTE | 2017-01-11 08:30 | Progress Note ---
Internal Med Progress Note Date of Service: Jan 11, 2017. Provider Documentation: SUBJECTIVE: Patient is seen and examined at bedside. Patient seems to be drowsy but easily awakes. States was not able to sleep well last night. Reports intermittent cough with expectoration. Not a good historian. Denies any chest pain. OBJECTIVE: Vital Signs-as noted below Physical Exam: General Appearance:Moderately built and nourished, no apparent distress Head: normocephalic, Atraumatic Eyes: normal inspection, EOMI, PERRLA Neck: supple, Trachea midline Respiratory/Chest: Decreased breath sounds, CTA Cardiovascular: S1, S2, No murmur Abdomen/GI:Soft, Non tender, Bowel sounds present Extremities/Musculoskelatal:normal inspection, Trace edema Neurologic/Psych:AAOX3, grossly no focal neurological deficits Skin: normal color, warm, Left side of chest, well healed surgical scar Lab data as noted below. ASSESSMENT & PLAN: ACUTE ON CHRONIC HYPOXIC/HYPERCARBIC RESPIRATORY FAILURE: MULTIFACTORIAL RLL PNEUMONIA: Likely gram negative/Possible aspiration COPD EXACERBATION ACUTE ON CHRONIC SYSTOLIC RIGHT HEART FAILURE PULMONARY HYPERTENSION OBSTRUCTIVE SLEEP APNEA TRACHEOBRONCHOMALACIA patient presented with worsening SOB, productive cough since 1 week: started on doxycycline by PCP on 01/02 CXR: findings suggestive of RLL pneumonia chronic oxygen dependency: 2-4 liters at home ABG:consistent with respiratory acidosis and metabolic alkalosis H/O MRSA bacteremia, Continue IV Vanco and Ertapenem, FU cultures :Blood-No growth to date; Sputum:pending Will add Zithromax to cover legionella, Fu legionella titers: will dc when negative Flu PCR:negative Continue IV steroids and bronchodilators Continue BiPAP Appreciate Pulmonary input Last ECHO:04/2016 - EF 45-49%, moderate pulmonary hypertension Recheck ECHO: 01/10/17- Severe pulmonary HTN, EF:60-65%, Severe TR continue IV lasix daily for now (Patient on Bumex 1mg daily at home) Monitor I/Os, daily weight, low salt diet Appreciate cardiology help Leukocytosis likely secondary to steroids HEMOPTYSIS Reported by patient INR 1.6 today Also has thrombocytopenia Hb:10.2, baseline; Hb has been stable THROMBOCYTOPENIA Likely secondary acute illness continue to monitor Nausea/Vomiting/Diarrhea Likely post tussive emesis Resolved Follow up stool studies PAROXYSMAL AFIB s/p ABLATIONS X 2 currently in NSR H/O tachybrady s/p pacemaker however pacer removed due to lead vegetation rate controlled Continue metoprolol Will resume Coumadin, Monitor INR HTN controlled continue hydralazine and metoprolol Also on lasix CKD STAGE IV Baseline cr: mid - high 1's Cr:1.6 at baseline continue to monitor HYPOTHYROIDISM continue levothyroxine DVT PROPHYLAXIS Coumadin on hold SCDs for now CODE STATUS full code. DISPOSITION: Continue to monitor PROCEDURES: * Severe pulmonary hypertension * The right ventricle is severely dilated. * The right ventricular systolic function is severely reduced. * The right atrium is severely dilated. * There is severe tricuspid regurgitation. * Flattened septum is consistent with RV pressure overload. * There is moderate concentric left ventricular hypertrophy. * Ejection Fraction = 60-65%. * Prolapse of the anterior mitral leaflet. * There is mild to moderate mitral regurgitation. Vital Signs: Date Time Temp Pulse Resp B/P Pulse Ox O2 Delivery O2 Flow Rate FiO2 01/11/17 07:58 37.0 52 22 167/83 98 01/11/17 04:05 36.4 61 18 152/66 90 01/11/17 04:00 BiPAP 01/11/17 03:59 55 15.0 01/11/17 03:55 55 14 92 BiPAP/CPAP 15.0 01/11/17 00:35 92 Mask 5.0 01/10/17 20:01 92 Mask 5.0 01/10/17 19:05 82 15.0 01/10/17 19:00 70 12 90 Diffusion Mask 8.0 01/10/17 18:55 37.3 75 18 125/60 88 5.0 01/10/17 16:01 92 Mask 5.0 01/10/17 16:01 92 Mask 5.0 01/10/17 15:13 36.8 75 18 148/60 91 5.0 01/10/17 14:00 93 Mask 5.0 01/10/17 13:30 70 16 94 Diffusion Mask 8.0 01/10/17 12:00 92 Mask 5.0 01/10/17 11:32 36.9 86 18 146/63 98 Lab Results: Results Past 24 Hours Test 01/11/17 05:40 Range/Units White Blood Count 11.75 4.8-10.8 K/uL Red Blood Count 3.42 4.2-5.4 M/uL Hemoglobin 10.2 12.0-16.0 g/dL Hematocrit 31.1 37-47 % Mean Corpuscular Volume 90.9 80-100 fL Mean Corpuscular Hemoglobin 29.8 25-34 pg Mean Corpuscular Hemoglobin Concent 32.8 32-36 g/dl Platelet Count 105 130-400 K/uL Mean Platelet Volume 11.9 7.4-10.4 fL Neutrophils (%) (Auto) 94.6 % Lymphocytes (%) (Auto) 3.5 % Monocytes (%) (Auto) 1.6 % Eosinophils (%) (Auto) 0.0 % Basophils (%) (Auto) 0.1 % Neutrophils # (Auto) 11.12 1.4-6.5 K/uL Lymphocytes # (Auto) 0.41 1.2-3.4 K/uL Monocytes # (Auto) 0.19 0.11-0.59 K/uL Eosinophils # (Auto) 0.00 0-0.5 K/uL Basophils # (Auto) 0.01 0-0.2 K/uL RDW Standard Deviation 55.3 36.4-46.3 fL RDW Coefficient of Variation 16.7 11.5-14.5 % Immature Granulocyte % (Auto) 0.2 % Immature Granulocyte # (Auto) 0.02 0.00-0.02 K/uL Platelet Estimate DECREASED Tear Drop Cells OCCASIONAL Ovalocytes 1+ Prothrombin Time 17.6 9.0-12.0 SECONDS Prothromb Time International Ratio 1.6 0.9-1.1 Sodium Level 141 136-145 mmol/L Potassium Level 4.0 3.5-5.1 mmol/L Chloride Level 101 98-107 mmol/L Carbon Dioxide Level 32 21-32 mmol/L Anion Gap 8.0 3-11 mmol/L Blood Urea Nitrogen 51 7-18 mg/dl Creatinine 1.60 0.60-1.20 mg/dl Est Creatinine Clear Calc Drug Dose 25.5 ml/min Estimated GFR () 36.9 Estimated GFR (Non- 31.9 BUN/Creatinine Ratio 32.1 10-20 Random Glucose 130 70-99 mg/dl Calcium Level 8.8 8.5-10.1 mg/dl Pro-B-Type Natriuretic Peptide 9060 0-900 pg/ml
[2017-01-11] MEDS: FUROSEMIDE INJ 40 MG in SYRINGE 0 ML IV SCH (09:00)
[2017-01-11] MEDS: INSULIN GLARGINE SOLOSTAR 100 UNITS/ML 3 ML PEN SC SCH (09:28)
--- NOTE | 2017-01-11 10:07 | Cardiology Follow-Up ---
Subjective General Date of Service: Jan 11, 2017. Chief Complaint: SOB Pt evaluation today including: conversation w/ patient, physical exam, chart review, lab review, review of studies, review of inpatient medication list History of Present Illness Patient sleeping with BiPAP in place. Full ROS unable to be performed. Awakens to voice. Shakes head "no" for SOB or CP. Allergies Coded Allergies: Levofloxacin (Verified Allergy, Intermediate, HIVES, 01/09/17) Quinolones (Verified Allergy, Intermediate, HIVES, 01/09/17) Ranitidine (Verified Allergy, Intermediate, HIVES, 01/09/17) Sulfamethoxazole (Verified Allergy, Intermediate, HIVES, 01/09/17) Trimethoprim (Verified Allergy, Intermediate, HIVES, 01/09/17) Clarithromycin (Verified Allergy, Mild, HIVES, CAN TAKE ZITHROMAX W/O PROB , 01/09/17) Amoxicillin (Verified Allergy, Unknown, HIVES, 01/09/17) Omeprazole (Verified Allergy, Unknown, HAS HAD PROTONIX, 01/09/17) Social History Smoking Status: Former Smoker Hx Tobacco Use In Past Year?: No Hx Alcohol Use - Type And Amou: No Hx Substance Use - Type And Am: No Problem List Medical Problems: (1) Acute kidney injury Status: Acute (2) Anemia Status: Chronic (3) Atrial flutter Status: Acute (4) Back pain Status: Acute (5) Bilateral knee pain Status: Acute (6) CHF exacerbation Status: Acute (7) CHF exacerbation Status: Acute (8) Closed head injury Status: Acute (9) Concussion Status: Acute (10) COPD exacerbation Status: Acute (11) Fall Status: Acute (12) Hypoxia Status: Acute (13) Pneumonia involving right lung Status: Acute (14) Subtherapeutic international normalized ratio (INR) Status: Acute Review of Systems Respiratory: + see HPI Cardiac: + see HPI Physical Exam Vital Signs Last Vital Signs Documentation Date Time Temp Pulse Resp B/P Pulse Ox O2 Delivery O2 Flow Rate FiO2 01/11/17 08:00 91 BiPAP 01/11/17 07:58 37.0 52 22 167/83 01/11/17 07:04 15.0 Physical Exam Constitutional: General Apperance: overweight Level of Distress: acutely ill, chronically ill Psychiatric: Mental Status: lethargic Head: normocephalic Eyes: Pupils: PERRLA Neck: supple Lungs: Auscultation: deminished air movement (anteriorly) Cardiovascular: Heart Auscultation: RRR, normal S1, normal S2, no murmurs (audible. Distant heart sounds) Abdomen: Bowel Sounds: normal Inspection & Palpation: soft, non-distended Extremities: no edema Assessment and Plan Assessment and Plan IMPRESSION and PLAN: 1. Acute on chronic Respiratory failure, multifactorial secondary to b/l pneumonia, COPD, severe pulmonary hypertension, and superimposed decompensated systolic/right heart failure -Recommend continuing IV diuretics today with close monitoring of creatinine and fluid status. Consider transitioning to PO furosemide tomorrow. -continue antibiotics, nebs, steroids, Bipap per pulmonology -echo results --- Conclusions -- Severe pulmonary hypertension The right ventricle is severely dilated. The right ventricular systolic function is severely reduced. The right atrium is severely dilated. There is severe tricuspid regurgitation. Flattened septum is consistent with RV pressure overload. There is moderate concentric left ventricular hypertrophy. Ejection Fraction = 60-65%. Prolapse of the anterior mitral leaflet. There is mild to moderate mitral regurgitation 2. Paroxysmal atrial fib/flutter s/p 2 ablations, most recently in 2016. currently NSR -continue low dose metoprolol -Coumadin on hold initially due to hemoptysis - no recurrence -Coumadin restarted 3. Chronic biventricular heart failure, last LVEF 45%, now 65% with dilated RV and severe pulm hypertension -Improved systolic function noted compared to last echo. Continued dilated RV with reduced RV function/pressure overload. 4. 15 beat run of non sustained VT vs wide complex tachycardia - History of tachybrady syndrome with prior pacemaker implant and explant s/p vegetation -tolerating low dose beta lacho. Will not increase -likely resulting from hypoxia -maintain electrolyte balance with IV diuresis. -no recurrence Case discussed with Dr. Mike. Will follow. CARDIOLOGY ATTENDING ADDENDUM: The patient was seen and personally examined. Agree with Funmi Ding PA-C's findings and plans as documented above. Laboratory Results Last 24 Hours Test 01/11/17 05:40 White Blood Count 11.75 K/uL Red Blood Count 3.42 M/uL Hemoglobin 10.2 g/dL Hematocrit 31.1 % Mean Corpuscular Volume 90.9 fL Mean Corpuscular Hemoglobin 29.8 pg Mean Corpuscular Hemoglobin Concent 32.8 g/dl Platelet Count 105 K/uL Mean Platelet Volume 11.9 fL Neutrophils (%) (Auto) 94.6 % Lymphocytes (%) (Auto) 3.5 % Monocytes (%) (Auto) 1.6 % Eosinophils (%) (Auto) 0.0 % Basophils (%) (Auto) 0.1 % Neutrophils # (Auto) 11.12 K/uL Lymphocytes # (Auto) 0.41 K/uL Monocytes # (Auto) 0.19 K/uL Eosinophils # (Auto) 0.00 K/uL Basophils # (Auto) 0.01 K/uL RDW Standard Deviation 55.3 fL RDW Coefficient of Variation 16.7 % Immature Granulocyte % (Auto) 0.2 % Immature Granulocyte # (Auto) 0.02 K/uL Platelet Estimate DECREASED Tear Drop Cells OCCASIONAL Ovalocytes 1+ Prothrombin Time 17.6 SECONDS Prothromb Time International Ratio 1.6 Sodium Level 141 mmol/L Potassium Level 4.0 mmol/L Chloride Level 101 mmol/L Carbon Dioxide Level 32 mmol/L Anion Gap 8.0 mmol/L Blood Urea Nitrogen 51 mg/dl Creatinine 1.60 mg/dl Est Creatinine Clear Calc Drug Dose 25.5 ml/min Estimated GFR () 36.9 Estimated GFR (Non- 31.9 BUN/Creatinine Ratio 32.1 Random Glucose 130 mg/dl Calcium Level 8.8 mg/dl Pro-B-Type Natriuretic Peptide 9060 pg/ml
[2017-01-11] MEDS: METOPROLOL SUCC 25MG EXT REL TAB PO SCH (10:28)
[2017-01-11] MEDS: MONTELUKAST SOD 10 MG TAB PO SCH (10:28)
[2017-01-11] MEDS: LEVOTHYROXINE 75 MCG TAB PO SCH (10:28)
[2017-01-11] MEDS: FLUTICASONE PROPIONATE NA SPR 16 GM BTL NAE SCH ×2 (10:29→20:41)
[2017-01-11] MEDS: FLUTICASONE/SALMETEROL 250/50 (ADVAIR) 14 PUFF/1 INHALER INH SCH ×2 (10:30→20:40)
[2017-01-11] MEDS: AZITHROMYCIN 250 MG TAB PO SCH (10:30)
[2017-01-11] MEDS: PANTOprazole SOD 40 MG TAB PO SCH (10:31)
[2017-01-11] MEDS: FERROUS SULFATE 325 MG TAB PO SCH ×2 (10:32→20:42)
[2017-01-11] MEDS: CALCITRIOL 0.25 MCG CAP PO SCH (10:32)
[2017-01-11] MEDS: GABAPENTIN 600 MG TAB PO SCH ×2 (10:33→20:43)
[2017-01-11] MEDS: HydrALAZINE 10 MG TAB PO SCH ×2 (10:33→20:42)
[2017-01-11] MEDS: GABAPENTIN 300 MG CAP PO SCH (11:58)
--- NOTE | 2017-01-11 13:28 | PULMONARY PROGRESS NOTE ---
DATE: 01/11/2017 TIME: 12:50 p.m. SUBJECTIVE: The patient is not a good historian. She was sleeping heavily when I came into the room. She states she could not tell me if she was feeling better than yesterday or not. I spoke with nursing staff. They indicated that she wore BiPAP last night without too much difficulty. The patient does complain that the mask was tight and she has a sore nose. She apparently tolerated the pressure better; however. She did not complain to me of shortness of breath, although when I asked her if her breathing is better, she said she could not tell. She still has some cough. She states her mucus is clear today. She feels that her appetite is improving. OBJECTIVE: VITAL SIGNS: Temperature today is 36.6. Blood pressure 137/71. Respiratory rate 18 breaths per minute. Oxygen saturation 93% on 5 liter nasal cannula. GENERAL: The patient is sleepy as noted above. EARS, NOSE, THROAT: Exam is unchanged from yesterday. HEART: Heart rate was 82 per minute. LUNGS: Auscultation reveals just a few scattered rales. There are decreased breath sounds at the right base. Most of the rales are posterior. ABDOMEN: Soft and nontender. Bowel sounds were present. EXTREMITIES: Examination of the lower extremities to determine about edema is difficult because she has the compression device in place. However, when they are removed, it looks to me like the edema is probably less than yesterday. Review of the I\T\O shows that she had a negative balance of 1310 mL. LABORATORY DATA: White count today is 11.75, which is increased from yesterday at 8.59. Hemoglobin today 10.2. Platelets 105,000. INR today is 1.6. Electrolytes show sodium 141, potassium 4.0, chloride 101, bicarbonate 32. BUN was 51 with a creatinine of 1.6. Blood sugar was 130. ProBNP was significantly elevated to 9060. Blood cultures showed no growth. Sputum reported no organisms. Final culture; however, is still pending. IMPRESSIONS: 1. Respiratory failure with hypoxia and hypercarbia. 2. Bilateral lung infiltrates suggestive for pneumonia. 3. Chronic obstructive pulmonary disease by history. 4. Very high BNP - rule out congestive heart failure. 5. Obstructive sleep apnea - tolerating BiPAP better. 6. Hemoptysis - improved. 7. Pulmonary hypertension. 8. Tracheobronchomalacia. COMMENTS AND RECOMMENDATIONS: The patient seems to be somewhat clinically improved. The BNP level is exceedingly high. I suspect she must have some degree of congestive heart failure. Her antibiotics as ordered are azithromycin and ertapenem. She also was on vancomycin. She still is on methylprednisolone. I believe I would taper the dose back somewhat to perhaps q. 12 hours. Would continue with the DuoNeb treatments. She will ultimately need followup x-rays to assure improvement. Dr. Baldwin will be seeing her as of tomorrow.
[2017-01-11] MEDS ORDERED: COUGH DROP (SUGAR FREE) LOZ 24 LOZ/1 BOX ONE (16:12)
[2017-01-11] MEDS: WARFARIN SOD 2.5 MG TAB PO SCH (16:19)
[2017-01-11] MEDS: VANCOMYCIN INJ 850 MG in SODIUM CHLORIDE 0.9% 250ML 250 ML IV SCH (16:20)
[2017-01-11] MEDS: DONEPEZIL HCL 10 MG TAB PO SCH (20:42)
[2017-01-11] MEDS: PRAVASTATIN SOD 40 MG TAB PO SCH (20:44)
[2017-01-11] MEDS: ERTAPENEM IV 500 MG in SODIUM CHLORIDE 0.9% 50ML 50 ML IV SCH (21:48)
[2017-01-12] VITALS (17 sets, daily range): BP systolic 134–155; BP diastolic 46–106; PULSE 52–74; TEMP 36.3–37.7; O2SAT 91–95
[2017-01-12] MEDS: ALBUT/IPRATROP 3MG/0.5MG NEB 3 ML VIAL INH SCH ×4 (01:51→19:36)
[2017-01-12] MEDS: LEVOTHYROXINE 75 MCG TAB PO SCH (05:44)
[2017-01-12 07:29] LABS: INR 1.6 (0.9-1.1); PROTHROMBIN TIME (PATIENT) 17.8 SECONDS (9.0-12.0)
[2017-01-12 07:40] LABS: COMPLETE YES; HEMATOCRIT 32.7 % (37-47); IG% 0.1 %; LARGE PLATELETS 1+; LYMPH ABS # 0.38 K/uL (1.2-3.4); MEAN CELL VOLUME 92.4 fL (80-100); MEAN CORPUSCULAR HEMOGLOBIN 30.8 pg (25-34); MEAN CORPUSCULAR HGB CONC 33.3 g/dl (32-36); MONO % 1.9 %; OVALOCYTES 1+; PLATELET COUNT 127 K/uL (130-400); PLT ESTIMATE DECREASED; RED BLOOD COUNT 3.54 M/uL (4.2-5.4); WHITE BLOOD COUNT 9.43 K/uL (4.8-10.8)
[2017-01-12 07:41] LABS: BUN/CREATININE RATIO 36.4 (10-20); CALCIUM 8.9 mg/dl (8.5-10.1); CREATININE 1.7 mg/dl (0.60-1.20); POTASSIUM 3.9 mmol/L (3.5-5.1)
[2017-01-12] MEDS: FLUTICASONE/SALMETEROL 250/50 (ADVAIR) 14 PUFF/1 INHALER INH SCH ×2 (09:50→20:00)
[2017-01-12] MEDS: FUROSEMIDE INJ 40 MG in SYRINGE 0 ML IV SCH (09:51)
[2017-01-12] MEDS: HydrALAZINE 10 MG TAB PO SCH ×2 (09:52→20:00)
[2017-01-12] MEDS: FLUTICASONE PROPIONATE NA SPR 16 GM BTL NAE SCH ×2 (09:52→20:00)
[2017-01-12] MEDS: METHYLPREDNISOLONE IV 40 MG in SYRINGE 0 ML IV SCH ×2 (09:52→20:00)
[2017-01-12] MEDS: FERROUS SULFATE 325 MG TAB PO SCH ×2 (09:53→20:01)
[2017-01-12] MEDS: PANTOprazole SOD 40 MG TAB PO SCH (09:53)
[2017-01-12] MEDS: GABAPENTIN 600 MG TAB PO SCH ×2 (09:53→20:01)
[2017-01-12] MEDS: AZITHROMYCIN 250 MG TAB PO SCH (09:53)
[2017-01-12] MEDS: METOPROLOL SUCC 25MG EXT REL TAB PO SCH (09:54)
[2017-01-12] MEDS: MONTELUKAST SOD 10 MG TAB PO SCH (09:54)
[2017-01-12] MEDS: INSULIN GLARGINE SOLOSTAR 100 UNITS/ML 3 ML PEN SC SCH (09:55)
[2017-01-12] MEDS: GABAPENTIN 300 MG CAP PO SCH (13:34)
--- NOTE | 2017-01-12 14:24 | Progress Note ---
Internal Med Progress Note Date of Service: Jan 12, 2017. Provider Documentation: SUBJECTIVE: Patient is seen and examined at bedside. More alert, awake today. States having mild abdominal pain and 1 loose BM today. Denies nausea, vomiting, chest pain, SOB. Cough is improving. She is on BiPAP overnight. OBJECTIVE: Vital Signs-as noted below Physical Exam: General Appearance:Moderately built and nourished, no apparent distress Head: normocephalic, Atraumatic Eyes: normal inspection, EOMI, PERRLA Neck: supple, Trachea midline Respiratory/Chest: Normal breath sounds, + creps at bases b/l Cardiovascular: S1, S2, No murmur Abdomen/GI:Soft, Non tender, Bowel sounds present Extremities/Musculoskelatal:normal inspection, Trace edema Neurologic/Psych:AAOX3, grossly no focal neurological deficits Skin: normal color, warm, Left side of chest, well healed surgical scar Lab data as noted below. ASSESSMENT & PLAN: ACUTE ON CHRONIC HYPOXIC/HYPERCARBIC RESPIRATORY FAILURE: MULTIFACTORIAL RLL PNEUMONIA: Likely gram negative/Possible aspiration COPD EXACERBATION ACUTE ON CHRONIC SYSTOLIC RIGHT HEART FAILURE PULMONARY HYPERTENSION OBSTRUCTIVE SLEEP APNEA TRACHEOBRONCHOMALACIA patient presented with worsening SOB, productive cough since 1 week: started on doxycycline by PCP on 01/02 CXR: findings suggestive of RLL pneumonia chronic oxygen dependency: 2-4 liters at home ABG:consistent with respiratory acidosis and metabolic alkalosis H/O MRSA bacteremia, Continue IV Ertapenem, FU cultures :Blood-No growth to date ; Sputum: DC Vancomycin Continue Zithromax to cover legionella, Fu legionella titers: pending. 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 Patient on steroids Check KUB HEMOPTYSIS Reported by patient prior to admission Resolved Hb:10.2, baseline; Hb :10.9 today THROMBOCYTOPENIA Likely secondary acute illness Improving continue to monitor HTN controlled continue hydralazine and metoprolol Also on lasix CKD STAGE IV Baseline cr: mid - high 1's Cr:1.7 at baseline continue to monitor HYPOTHYROIDISM continue levothyroxine DVT PROPHYLAXIS Coumadin on hold SCDs for now CODE STATUS full code. DISPOSITION: Continue to monitor in Tele PROCEDURES: * Severe pulmonary hypertension * The right ventricle is severely dilated. * The right ventricular systolic function is severely reduced. * The right atrium is severely dilated. * There is severe tricuspid regurgitation. * Flattened septum is consistent with RV pressure overload. * There is moderate concentric left ventricular hypertrophy. * Ejection Fraction = 60-65%. * Prolapse of the anterior mitral leaflet. * There is mild to moderate mitral regurgitation. Vital Signs: Date Time Temp Pulse Resp B/P Pulse Ox O2 Delivery O2 Flow Rate FiO2 01/12/17 12:27 37.1 54 20 137/52 92 Nasal Cannula 5.0 01/12/17 07:54 36.9 56 20 155/106 95 Nasal Cannula 5.0 01/12/17 07:20 54 20 93 Nasal Cannula 4.0 01/12/17 04:00 94 BiPAP 01/12/17 03:21 36.3 58 21 134/46 94 BiPAP 8.0 01/12/17 01:52 74 93 5.0 01/12/17 01:51 74 20 93 BiPAP/CPAP 5.0 01/12/17 00:01 91 BiPAP 01/11/17 23:42 36.8 58 22 144/62 89 BiPAP 4.0 01/11/17 23:06 57 91 5.0 01/11/17 20:00 Nasal Cannula 5.0 01/11/17 19:33 37.1 53 18 152/82 95 Nasal Cannula 5.0 01/11/17 19:30 68 14 94 Nasal Cannula 5.0 01/11/17 16:00 Nasal Cannula 5.0 01/11/17 15:59 37.2 68 20 138/80 92 Nasal Cannula 5.0 Lab Results: Results Past 24 Hours Test 01/11/17 16:10 01/11/17 20:39 01/12/17 06:10 01/12/17 06:45 Range/Units Bedside Glucose 107 197 143 70-90 mg/dl White Blood Count 9.43 4.8-10.8 K/uL Red Blood Count 3.54 4.2-5.4 M/uL Hemoglobin 10.9 12.0-16.0 g/dL Hematocrit 32.7 37-47 % Mean Corpuscular Volume 92.4 80-100 fL Mean Corpuscular Hemoglobin 30.8 25-34 pg Mean Corpuscular Hemoglobin Concent 33.3 32-36 g/dl Platelet Count 127 130-400 K/uL Mean Platelet Volume 13.0 7.4-10.4 fL Neutrophils (%) (Auto) 94.0 % Lymphocytes (%) (Auto) 4.0 % Monocytes (%) (Auto) 1.9 % Eosinophils (%) (Auto) 0.0 % Basophils (%) (Auto) 0.0 % Neutrophils # (Auto) 8.86 1.4-6.5 K/uL Lymphocytes # (Auto) 0.38 1.2-3.4 K/uL Monocytes # (Auto) 0.18 0.11-0.59 K/uL Eosinophils # (Auto) 0.00 0-0.5 K/uL Basophils # (Auto) 0.00 0-0.2 K/uL RDW Standard Deviation 57.3 36.4-46.3 fL RDW Coefficient of Variation 16.8 11.5-14.5 % Immature Granulocyte % (Auto) 0.1 % Immature Granulocyte # (Auto) 0.01 0.00-0.02 K/uL Platelet Estimate DECREASED Large Platelets 1+ Ovalocytes 1+ Prothrombin Time 17.8 9.0-12.0 SECONDS Prothromb Time International Ratio 1.6 0.9-1.1 Sodium Level 141 136-145 mmol/L Potassium Level 3.9 3.5-5.1 mmol/L Chloride Level 98 98-107 mmol/L Carbon Dioxide Level 30 21-32 mmol/L Anion Gap 13.0 3-11 mmol/L Blood Urea Nitrogen 62 7-18 mg/dl Creatinine 1.70 0.60-1.20 mg/dl Est Creatinine Clear Calc Drug Dose 23.6 ml/min Estimated GFR () 34.3 Estimated GFR (Non- 29.6 BUN/Creatinine Ratio 36.4 10-20 Random Glucose 140 70-99 mg/dl Calcium Level 8.9 8.5-10.1 mg/dl Test 01/12/17 11:39 Range/Units Bedside Glucose 154 70-90 mg/dl
[2017-01-12] MEDS ORDERED: VANCOMYCIN TROUGH SCH (15:30)
[2017-01-12] MEDS: WARFARIN SOD 2.5 MG TAB PO SCH (15:50)
--- NOTE | 2017-01-12 17:23 | Cardiology Follow-Up ---
Subjective General Date of Service: Jan 12, 2017. Chief Complaint: SOB Pt evaluation today including: conversation w/ patient, physical exam History of Present Illness The patient is a 71 year old female seen in follow up of shortness of breath. Pt states breathing is better. She had diarrhea earlier today. Allergies Coded Allergies: Levofloxacin (Verified Allergy, Intermediate, HIVES, 01/09/17) Quinolones (Verified Allergy, Intermediate, HIVES, 01/09/17) Ranitidine (Verified Allergy, Intermediate, HIVES, 01/09/17) Sulfamethoxazole (Verified Allergy, Intermediate, HIVES, 01/09/17) Trimethoprim (Verified Allergy, Intermediate, HIVES, 01/09/17) Clarithromycin (Verified Allergy, Mild, HIVES, CAN TAKE ZITHROMAX W/O PROB , 01/09/17) Amoxicillin (Verified Allergy, Unknown, HIVES, 01/09/17) Omeprazole (Verified Allergy, Unknown, HAS HAD PROTONIX, 01/09/17) Social History Smoking Status: Former Smoker Hx Tobacco Use In Past Year?: No Hx Alcohol Use - Type And Amou: No Hx Substance Use - Type And Am: No Problem List Medical Problems: (1) Acute kidney injury Status: Acute (2) Anemia Status: Chronic (3) Atrial flutter Status: Acute (4) Back pain Status: Acute (5) Bilateral knee pain Status: Acute (6) CHF exacerbation Status: Acute (7) CHF exacerbation Status: Acute (8) Closed head injury Status: Acute (9) Concussion Status: Acute (10) COPD exacerbation Status: Acute (11) Fall Status: Acute (12) Hypoxia Status: Acute (13) Pneumonia involving right lung Status: Acute (14) Subtherapeutic international normalized ratio (INR) Status: Acute Physical Exam Vital Signs Last Vital Signs Documentation Date Time Temp Pulse Resp B/P Pulse Ox O2 Delivery O2 Flow Rate FiO2 01/12/17 15:47 36.8 66 18 139/86 95 Nasal Cannula 5.0 Physical Exam Constitutional: General Apperance: overweight Level of Distress: acutely ill, chronically ill Psychiatric: Mental Status: lethargic Head: normocephalic Eyes: Pupils: PERRLA Neck: supple Lungs: Auscultation: deminished air movement (anteriorly) Cardiovascular: Heart Auscultation: RRR, normal S1, normal S2, no murmurs (audible. Distant heart sounds) Abdomen: Bowel Sounds: normal Inspection & Palpation: soft, non-distended Extremities: no edema Assessment and Plan Assessment and Plan Impression: 1. Multifactorial acute on chronic respiratory failure -underlying COPD -Acute on chronic Diastolic HF -history of remote atrial septal defect repair, cor pulmonale physiology ( chronic finding on past echo studies , as well as this admit) Plan: Continue cautious diuretics. Coumadin for history of PAF. 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 DVT proph: continue coumadin. Laboratory Results Last 24 Hours Test 01/11/17 20:39 01/12/17 06:10 01/12/17 06:45 01/12/17 11:39 Bedside Glucose 197 mg/dl 143 mg/dl 154 mg/dl White Blood Count 9.43 K/uL Red Blood Count 3.54 M/uL Hemoglobin 10.9 g/dL Hematocrit 32.7 % Mean Corpuscular Volume 92.4 fL Mean Corpuscular Hemoglobin 30.8 pg Mean Corpuscular Hemoglobin Concent 33.3 g/dl Platelet Count 127 K/uL Mean Platelet Volume 13.0 fL Neutrophils (%) (Auto) 94.0 % Lymphocytes (%) (Auto) 4.0 % Monocytes (%) (Auto) 1.9 % Eosinophils (%) (Auto) 0.0 % Basophils (%) (Auto) 0.0 % Neutrophils # (Auto) 8.86 K/uL Lymphocytes # (Auto) 0.38 K/uL Monocytes # (Auto) 0.18 K/uL Eosinophils # (Auto) 0.00 K/uL Basophils # (Auto) 0.00 K/uL RDW Standard Deviation 57.3 fL RDW Coefficient of Variation 16.8 % Immature Granulocyte % (Auto) 0.1 % Immature Granulocyte # (Auto) 0.01 K/uL Platelet Estimate DECREASED Large Platelets 1+ Ovalocytes 1+ Prothrombin Time 17.8 SECONDS Prothromb Time International Ratio 1.6 Sodium Level 141 mmol/L Potassium Level 3.9 mmol/L Chloride Level 98 mmol/L Carbon Dioxide Level 30 mmol/L Anion Gap 13.0 mmol/L Blood Urea Nitrogen 62 mg/dl Creatinine 1.70 mg/dl Est Creatinine Clear Calc Drug Dose 23.6 ml/min Estimated GFR () 34.3 Estimated GFR (Non- 29.6 BUN/Creatinine Ratio 36.4 Random Glucose 140 mg/dl Calcium Level 8.9 mg/dl Test 01/12/17 16:09 Bedside Glucose 138 mg/dl
--- NOTE | 2017-01-12 19:00 | DIAGNOSTIC IMAGING REPORT ---
KUB HISTORY: Generalized abdominal pain COMPARISON: Chest and abdominal series 11/23/2011. FINDINGS: Large amount well-formed stool seen throughout the colon. No dilated loops of small bowel to suggest an obstruction. Surgical within the right groin. Lower lumbar spine posterior fusion and decompression. A few pelvic phleboliths. The heart is enlarged. No pneumoperitoneum or pneumatosis. IMPRESSION: No evidence for bowel obstruction. Large amount well-formed stool seen throughout the colon rectum. Electronically signed by: Rishi Shook M.D. 01/12/2017 6:59 PM Dictated Date/Time: 01/12/2017 6:57 PM
[2017-01-12] MEDS: PRAVASTATIN SOD 40 MG TAB PO SCH (20:01)
[2017-01-12] MEDS: DONEPEZIL HCL 10 MG TAB PO SCH (20:01)
[2017-01-12] MEDS: ERTAPENEM IV 500 MG in SODIUM CHLORIDE 0.9% 50ML 50 ML IV SCH (22:16)
[2017-01-13] VITALS (14 sets, daily range): BP systolic 136–173; BP diastolic 56–90; PULSE 52–88; TEMP 36.3–37.1; O2SAT 90–98
[2017-01-13] MEDS: ALBUT/IPRATROP 3MG/0.5MG NEB 3 ML VIAL INH SCH ×4 (01:54→19:00)
[2017-01-13] MEDS: LEVOTHYROXINE 75 MCG TAB PO SCH (05:35)
[2017-01-13 06:21] LABS: INR 1.8 (0.9-1.1)
[2017-01-13 06:59] LABS: COMPLETE YES; HEMATOCRIT 31.3 % (37-47); IG% 0.3 %; LYMPH % 4.9 %; LYMPH ABS # 0.33 K/uL (1.2-3.4); MEAN CELL VOLUME 89.4 fL (80-100); MEAN CORPUSCULAR HEMOGLOBIN 29.4 pg (25-34); MEAN CORPUSCULAR HGB CONC 32.9 g/dl (32-36); MEAN PLATELET VOLUME 12.5 fL (7.4-10.4); MONO % 2.7 %; NEUT % 92.1 %; PLATELET COUNT 124 K/uL (130-400); PLT ESTIMATE DECREASED; WHITE BLOOD COUNT 6.79 K/uL (4.8-10.8)
[2017-01-13 07:00] LABS: CALCIUM 8.6 mg/dl (8.5-10.1); CREATININE 1.5 mg/dl (0.60-1.20); POTASSIUM 4.2 mmol/L (3.5-5.1)
[2017-01-13] MEDS: INSULIN GLARGINE SOLOSTAR 100 UNITS/ML 3 ML PEN SC SCH (09:00)
[2017-01-13] MEDS: FLUTICASONE PROPIONATE NA SPR 16 GM BTL NAE SCH ×2 (09:14→21:20)
[2017-01-13] MEDS: FLUTICASONE/SALMETEROL 250/50 (ADVAIR) 14 PUFF/1 INHALER INH SCH ×2 (09:14→21:19)
[2017-01-13] MEDS: METOPROLOL SUCC 25MG EXT REL TAB PO SCH (09:15)
[2017-01-13] MEDS: METHYLPREDNISOLONE IV 40 MG in SYRINGE 0 ML IV SCH (09:15)
[2017-01-13] MEDS: MONTELUKAST SOD 10 MG TAB PO SCH (09:15)
[2017-01-13] MEDS: FUROSEMIDE INJ 40 MG in SYRINGE 0 ML IV SCH (09:15)
[2017-01-13] MEDS: FERROUS SULFATE 325 MG TAB PO SCH ×2 (09:16→21:21)
[2017-01-13] MEDS: PANTOprazole SOD 40 MG TAB PO SCH (09:16)
[2017-01-13] MEDS: GABAPENTIN 600 MG TAB PO SCH ×2 (09:16→21:22)
[2017-01-13] MEDS: HydrALAZINE 10 MG TAB PO SCH ×2 (09:16→21:21)
[2017-01-13] MEDS: AZITHROMYCIN 250 MG TAB PO SCH (09:17)
--- NOTE | 2017-01-13 10:29 | Progress Note ---
Internal Med Progress Note Date of Service: Jan 13, 2017. Provider Documentation: SUBJECTIVE: Patient is seen and examined at bedside. Feels much better today. abdominal pain , diarrhea resolved. Denies chest pain, SOB. Cough is improving. OBJECTIVE: Vital Signs-as noted below Physical Exam: General Appearance:Moderately built and nourished, no apparent distress Head: normocephalic, Atraumatic Eyes: normal inspection, EOMI, PERRLA Neck: supple, Trachea midline Respiratory/Chest: Normal breath sounds, + creps at bases b/l Cardiovascular: S1, S2, No murmur Abdomen/GI:Soft, Non tender, Bowel sounds present Extremities/Musculoskelatal:normal inspection, Trace edema Neurologic/Psych:AAOX3, grossly no focal neurological deficits Skin: normal color, warm, Left side of chest, well healed surgical scar Lab data as noted below. ASSESSMENT & PLAN: ACUTE ON CHRONIC HYPOXIC/HYPERCARBIC RESPIRATORY FAILURE: MULTIFACTORIAL RLL PNEUMONIA: Likely gram negative/Possible aspiration COPD EXACERBATION ACUTE ON CHRONIC SYSTOLIC RIGHT HEART FAILURE PULMONARY HYPERTENSION OBSTRUCTIVE SLEEP APNEA TRACHEOBRONCHOMALACIA patient presented with worsening SOB, productive cough since 1 week: started on doxycycline by PCP on 01/02 CXR: findings suggestive of RLL pneumonia chronic oxygen dependency: 2-4 liters at home: Currently saturating well on 4lNC ABG:consistent with respiratory acidosis and metabolic alkalosis H/O MRSA bacteremia, Continue IV Ertapenem, Vancomycin discontinued FU cultures :Blood-No growth to date; Sputum:Normal kurtis Continue Zithromax to cover legionella, Fu legionella titers: pending. Will dc if negative Flu PCR:negative Continue IV steroids taper and bronchodilators Continue BiPAP Appreciate Pulmonary input Last ECHO:04/2016 - EF 45-49%, moderate pulmonary hypertension Recheck ECHO: 01/10/17- Severe pulmonary HTN, EF:60-65%, Severe TR continue IV lasix daily for now (Patient on Bumex 1mg daily at home) Monitor I/Os, daily weight, low salt diet Appreciate cardiology help Leukocytosis resolved PAROXYSMAL AFIB s/p ABLATIONS X 2 H/O tachybrady s/p pacemaker however pacer removed due to lead vegetation 15 beat run of non sustained VT on 01/11/17 and 01/12/17 Likely secondary to hypoxia Rate controlled Continue metoprolol Continue Coumadin: 4mg today Monitor INR:1.8 today Cardiology following Mild Abd pain: Presented with Nausea/Vomiting/Diarrhea prior to admission Has 1 loose BM today, No N/V currently c.diff: Negative Continue Protonix Check KUB: No signs of obstruction HEMOPTYSIS Reported by patient prior to admission Resolved Hb stable THROMBOCYTOPENIA Likely secondary acute illness Improved continue to monitor HTN controlled continue hydralazine and metoprolol Also on lasix CKD STAGE IV Baseline cr: mid - high 1's Cr:1.5 at baseline continue to monitor HYPOTHYROIDISM continue levothyroxine DVT PROPHYLAXIS Coumadin on hold SCDs for now CODE STATUS full code. DISPOSITION: Continue to monitor in Tele PROCEDURES: * Severe pulmonary hypertension * The right ventricle is severely dilated. * The right ventricular systolic function is severely reduced. * The right atrium is severely dilated. * There is severe tricuspid regurgitation. * Flattened septum is consistent with RV pressure overload. * There is moderate concentric left ventricular hypertrophy. * Ejection Fraction = 60-65%. * Prolapse of the anterior mitral leaflet. * There is mild to moderate mitral regurgitation. Vital Signs: Date Time Temp Pulse Resp B/P Pulse Ox O2 Delivery O2 Flow Rate FiO2 01/13/17 08:35 37.1 59 18 163/90 95 Nasal Cannula 4.0 01/13/17 07:07 52 20 92 BiPAP/CPAP 4.0 01/13/17 05:55 56 92 4.0 01/13/17 04:05 36.3 67 18 173/56 90 BiPAP 01/13/17 04:00 94 Nasal Cannula 3.0 01/13/17 01:55 59 93 4.0 01/13/17 01:55 59 20 93 BiPAP/CPAP 4.0 01/13/17 01:02 88 95 4.0 01/12/17 23:59 BiPAP 01/12/17 23:00 37.2 52 18 143/71 94 Nasal Cannula 4.0 01/12/17 20:00 94 Nasal Cannula 3.0 01/12/17 19:36 63 16 95 Nasal Cannula 4.0 01/12/17 19:30 37.7 53 18 146/72 94 Nasal Cannula 4.0 01/12/17 16:00 95 Nasal Cannula 4.0 01/12/17 15:47 36.8 66 18 139/86 95 Nasal Cannula 5.0 01/12/17 14:31 57 16 92 Nasal Cannula 5.0 01/12/17 12:27 37.1 54 20 137/52 92 Nasal Cannula 5.0 01/12/17 12:00 94 Nasal Cannula 5.0 Lab Results: Results Past 24 Hours Test 01/12/17 11:39 01/12/17 16:09 01/12/17 19:19 01/12/17 19:54 Range/Units Bedside Glucose 154 138 144 70-90 mg/dl Test 01/13/17 05:15 01/13/17 06:47 Range/Units White Blood Count 6.79 4.8-10.8 K/uL Red Blood Count 3.50 4.2-5.4 M/uL Hemoglobin 10.3 12.0-16.0 g/dL Hematocrit 31.3 37-47 % Mean Corpuscular Volume 89.4 80-100 fL Mean Corpuscular Hemoglobin 29.4 25-34 pg Mean Corpuscular Hemoglobin Concent 32.9 32-36 g/dl Platelet Count 124 130-400 K/uL Mean Platelet Volume 12.5 7.4-10.4 fL Neutrophils (%) (Auto) 92.1 % Lymphocytes (%) (Auto) 4.9 % Monocytes (%) (Auto) 2.7 % Eosinophils (%) (Auto) 0.0 % Basophils (%) (Auto) 0.0 % Neutrophils # (Auto) 6.26 1.4-6.5 K/uL Lymphocytes # (Auto) 0.33 1.2-3.4 K/uL Monocytes # (Auto) 0.18 0.11-0.59 K/uL Eosinophils # (Auto) 0.00 0-0.5 K/uL Basophils # (Auto) 0.00 0-0.2 K/uL RDW Standard Deviation 55.2 36.4-46.3 fL RDW Coefficient of Variation 16.8 11.5-14.5 % Immature Granulocyte % (Auto) 0.3 % Immature Granulocyte # (Auto) 0.02 0.00-0.02 K/uL Platelet Estimate DECREASED Prothrombin Time 20.0 9.0-12.0 SECONDS Prothromb Time International Ratio 1.8 0.9-1.1 Sodium Level 141 136-145 mmol/L Potassium Level 4.2 3.5-5.1 mmol/L Chloride Level 99 98-107 mmol/L Carbon Dioxide Level 31 21-32 mmol/L Anion Gap 11.0 3-11 mmol/L Blood Urea Nitrogen 67 7-18 mg/dl Creatinine 1.50 0.60-1.20 mg/dl Est Creatinine Clear Calc Drug Dose 26.8 ml/min Estimated GFR () 39.9 Estimated GFR (Non- 34.4 BUN/Creatinine Ratio 45.0 10-20 Random Glucose 133 70-99 mg/dl Calcium Level 8.6 8.5-10.1 mg/dl Bedside Glucose 137 70-90 mg/dl
--- NOTE | 2017-01-13 11:10 | Pulmonology Progress Note ---
Pulmonary Progress Note Date of Service Jan 13, 2017. Attending Darien Baldwin Subjective Patient with continued intermittent dry cough at this time but her cough is much improved from her and admission. She also notes dramatic improvement in her dyspnea at rest. Currently denies: Fever, chills, pleuritic chest pain, cardiac chest pain Objective Patient able to complete full sentences no signs of accessory muscle use or tachypnea during our conversation Vital signs: Reviewed currently on 4 L nasal cannula Respiratory: Decreased breath sounds but also decreased effort/difficult exam Cardiac: S1-S2 distant heart sounds unable to auscultate for murmurs rubs or gallops Extremities: 1+ pitting edema Work-up: 1)ABG a.(01/09/17) 7.43/53/73/345L b.(01/09/17) 7.36/61/66/345L c.(01/10/17) 7.44/53/62/35---6L 2)BUN/Cr: 39/1.40---67/1.50 3)Legionella Pending 4)C-diff pending 5)Influ A+B: negative 6)Sputum Pathology (01/10/17) WNL 7)Pro-BNP: 9060 8)Radiology: a.KUB: WNL-Stool b.CXR: Bibasilar infiltrates. Developing pulmonary vascular congestion c.Non-con CT thorax: i.Radiology review 1.Marked cardiomegaly 2.Signs of PH 3.Interlobular septal thickening consistent with pulmonary edema 4.Small right pleural effusion 5.Cholelithiasis 6.Findings suggestive of tracheobronchomalacia ii.My Review 1.EDAC 2.Aorta to Pulm artery ratio: 3/5 3.Diffuse RML, RLL, LLL infiltrates vs. atelectasis d.Cardiac Echo i.RV: Severe dilation, systolic function severely reduced, ii.RA: Severely dilated iii.TV: Severe tricuspid regurgitation iv.LV: LVH, EF=65% Treatment: #1 methylprednisolone 40 mg daily #2 azithromycin 500 mg daily #3 ertapenem 500 mg daily #4 Furosemide 40 milligrams daily #5 Singulair 10 mg daily #6 Advair Diskus 250/50 one puff twice a day #7 Flonase one puff each nostril twice a day #8 duo nebs every 6 hours Date:07/07/14 PRE POST % CHANGE FEV1/FVC: 68 FEV1: 2.28/65% 2.58/74% 13 FVC: 3.34/76% 3.74/85% 12 25-27%: T.56/97% VC: 3.42/78% RV: 3.13/123% FRC: 3.30/88% DLCO: 67% DLCO/VA: 110% Assessment & Plan 71-year-old female with history of COPD/asthma, cor pulmonale admitted for dyspnea: #1 Respiratory: The etiology of the patient's hypoxemia/hypercapnia is difficult to discern. Her most recent home he function studies 07/07/2014 no minimal COPD and a DLCO of 67% predicted. She does have severe pulmonary hypertension, group unknown, based off echocardiogram and thoracic CAT scans. CT also demonstrated bilateral lower lobe atelectasis versus rounded atelectasis and bronchiectasis with previous swallow evaluation on 02/06/2016 suggesting aspiration. At this time I'll order bilateral lower extremity DVT studies for full examination patient will require: V/Q (rule out CTEPH), right heart catheterization with LEVDP and shunt fraction. It is highly likely most likely etiologies are obesity hypoventilation, chronic aspiration, pulmonary hypertension unknown group, diastolic heart failure. #2 EDAC: CT of the chest suggest sepsis a dynamic airway collapse also probably adding to patient's respiratory insufficiency. The most appropriate treatment at this time is CPAP/BiPAP is much as physically tolerated. #3 obstructive sleep apnea, obesity hypoventilation: Continued BiPAP therapy at this time #4 COPD: Pulmicort function tests from 07/07/2014 suggest mild obstructive ventilatory disease with decreased DLCO at 67%. When patient is stabilized repeating her pulmonary function tests would be helpful. At this time we will switch her steroids from IV to by mouth and monitor for the next 24 hours. Data Medications: Current Inpatient Medications Medications (Trade) Dose Ordered Sig/Mehdi Route Start Time Stop Time Status Last Admin Dose Admin Acetaminophen 650 mg 650 mg Q4H PRN PO 01/09/17 14:15 02/08/17 14:14 01/11/17 16:18 650 MG Furosemide/Syringe (Lasix Inj/ Syringe) 4 ml @ 4 mls/min DAILY IV 01/10/17 09:00 02/09/17 08:59 01/13/17 09:15 4 MLS/MIN Albuterol/ Ipratropium 3 ml 3 ml Q6R INH 01/09/17 15:00 02/08/17 14:59 01/13/17 07:07 3 ML Promethazine HCl/ Sodium Chloride (Phenergan Inj/ Nss 50ml) 50.5 ml @ 204 mls/hr Q6H PRN IV 01/09/17 14:30 02/08/17 14:29 Calcitriol (Rocaltrol Cap) 0.25 mcg MoWeFr@0900 PO 01/11/17 09:00 02/10/17 08:59 01/11/17 10:32 0.25 MCG Donepezil HCl (Aricept Tab) 10 mg HS PO 01/09/17 21:00 02/08/17 20:59 01/12/17 20:01 10 MG Salmeterol Xinafoate/ Fluticasone (Advair Diskus 250/50 Inh) 1 puff BID INH 01/09/17 21:00 02/08/17 20:59 01/13/17 09:14 1 PUFF Fluticasone Propionate (Flonase Nasal [place]) 1 sprays BID PAULIE 01/09/17 21:00 02/08/17 20:59 01/13/17 09:14 1 SPRAYS Gabapentin (Neurontin Cap) 300 mg DAILY@1200 PO 01/10/17 12:00 02/08/17 11:59 01/12/17 13:34 300 MG Gabapentin (Neurontin Tab) 600 mg AMHS PO 01/09/17 21:00 02/08/17 20:59 01/13/17 09:16 600 MG Hydralazine HCl (Apresoline Tab) 10 mg BID PO 01/09/17 21:00 02/08/17 20:59 01/13/17 09:16 10 MG Levothyroxine Sodium (Synthroid Tab) 75 mcg DAILYBB PO 01/10/17 06:00 02/09/17 06:59 01/13/17 05:35 75 MCG Metoprolol Succinate (Toprol Xl Tab) 12.5 mg DAILY PO 01/10/17 09:00 02/09/17 08:59 01/13/17 09:15 12.5 MG Montelukast Sodium (Singulair Tab) 10 mg DAILY PO 01/10/17 09:00 02/09/17 08:59 01/13/17 09:15 10 MG Pantoprazole Sodium (Protonix Tab) 40 mg DAILY PO 01/10/17 09:00 02/09/17 08:59 01/13/17 09:16 40 MG Ferrous Sulfate (Feosol Tab) 325 mg BID PO 01/09/17 21:00 02/08/17 20:59 01/13/17 09:16 325 MG Pravastatin Sodium (Pravachol Tab) 80 mg QPM PO 01/09/17 21:00 02/08/17 20:59 01/12/17 20:01 80 MG Miscellaneous Information 1 ea UD PRN N/A 01/09/17 22:00 02/08/17 21:59 Insulin Glargine 5 unit 5 unit DAILY SC 01/10/17 09:00 02/09/17 08:59 01/12/17 09:55 5 UNIT Ertapenem/Sodium Chloride (Invanz Iv/Nss 50ml) 55 ml @ 120 mls/hr Q24H IV 01/10/17 22:00 01/17/17 21:59 01/12/17 22:16 120 MLS/HR Azithromycin (Zithromax Tab) 500 mg QAM PO 01/11/17 09:00 01/18/17 08:59 01/13/17 09:17 500 MG Warfarin Sodium 4 mg 4 mg DAILY@16 PO 01/13/17 16:00 02/12/17 15:59 Methylprednisolone Sodium Succinate/ Syringe (Solu-Medrol IV/ Syringe) 0.64 ml @ 1.5 mls/min DAILY IV 01/14/17 09:00 02/13/17 08:59 I & O: 24-Hour Column 01/13/17 08:00 Intake Total 850 ml Output Total 1650 ml Balance -800 ml Vital Signs: Date Time Temp Pulse Resp B/P Pulse Ox O2 Delivery O2 Flow Rate FiO2 01/13/17 08:35 37.1 59 18 163/90 95 Nasal Cannula 4.0 01/13/17 07:07 52 20 92 BiPAP/CPAP 4.0 01/13/17 05:55 56 92 4.0 01/13/17 04:05 36.3 67 18 173/56 90 BiPAP 01/13/17 04:00 94 Nasal Cannula 3.0 01/13/17 01:55 59 93 4.0 01/13/17 01:55 59 20 93 BiPAP/CPAP 4.0 01/13/17 01:02 88 95 4.0 01/12/17 23:59 BiPAP 01/12/17 23:00 37.2 52 18 143/71 94 Nasal Cannula 4.0 01/12/17 20:00 94 Nasal Cannula 3.0 01/12/17 19:36 63 16 95 Nasal Cannula 4.0 01/12/17 19:30 37.7 53 18 146/72 94 Nasal Cannula 4.0 01/12/17 16:00 95 Nasal Cannula 4.0 01/12/17 15:47 36.8 66 18 139/86 95 Nasal Cannula 5.0 01/12/17 14:31 57 16 92 Nasal Cannula 5.0 01/12/17 12:27 37.1 54 20 137/52 92 Nasal Cannula 5.0 01/12/17 12:00 94 Nasal Cannula 5.0 Laboratory Results: Last 24 Hours Test 01/12/17 11:39 01/12/17 16:09 01/12/17 19:19 01/12/17 19:54 Bedside Glucose 154 mg/dl 138 mg/dl 144 mg/dl Test 01/13/17 05:15 01/13/17 06:47 White Blood Count 6.79 K/uL Red Blood Count 3.50 M/uL Hemoglobin 10.3 g/dL Hematocrit 31.3 % Mean Corpuscular Volume 89.4 fL Mean Corpuscular Hemoglobin 29.4 pg Mean Corpuscular Hemoglobin Concent 32.9 g/dl Platelet Count 124 K/uL Mean Platelet Volume 12.5 fL Neutrophils (%) (Auto) 92.1 % Lymphocytes (%) (Auto) 4.9 % Monocytes (%) (Auto) 2.7 % Eosinophils (%) (Auto) 0.0 % Basophils (%) (Auto) 0.0 % Neutrophils # (Auto) 6.26 K/uL Lymphocytes # (Auto) 0.33 K/uL Monocytes # (Auto) 0.18 K/uL Eosinophils # (Auto) 0.00 K/uL Basophils # (Auto) 0.00 K/uL RDW Standard Deviation 55.2 fL RDW Coefficient of Variation 16.8 % Immature Granulocyte % (Auto) 0.3 % Immature Granulocyte # (Auto) 0.02 K/uL Platelet Estimate DECREASED Prothrombin Time 20.0 SECONDS Prothromb Time International Ratio 1.8 Sodium Level 141 mmol/L Potassium Level 4.2 mmol/L Chloride Level 99 mmol/L Carbon Dioxide Level 31 mmol/L Anion Gap 11.0 mmol/L Blood Urea Nitrogen 67 mg/dl Creatinine 1.50 mg/dl Est Creatinine Clear Calc Drug Dose 26.8 ml/min Estimated GFR () 39.9 Estimated GFR (Non- 34.4 BUN/Creatinine Ratio 45.0 Random Glucose 133 mg/dl Calcium Level 8.6 mg/dl Bedside Glucose 137 mg/dl
[2017-01-13] MEDS: GABAPENTIN 300 MG CAP PO SCH (12:28)
[2017-01-13] MEDS: WARFARIN SOD 4 MG TAB PO SCH (16:00)
[2017-01-13] MEDS: DONEPEZIL HCL 10 MG TAB PO SCH (21:21)
[2017-01-13] MEDS: PRAVASTATIN SOD 40 MG TAB PO SCH (21:23)
[2017-01-13] MEDS: ERTAPENEM IV 500 MG in SODIUM CHLORIDE 0.9% 50ML 50 ML IV SCH (21:25)
[2017-01-14] VITALS (15 sets, daily range): BP systolic 127–159; BP diastolic 47–99; PULSE 51–63; TEMP 35.6–37.1; O2SAT 91–96
[2017-01-14] MEDS: ALBUT/IPRATROP 3MG/0.5MG NEB 3 ML VIAL INH SCH ×3 (02:43→19:57)
[2017-01-14] MEDS: LEVOTHYROXINE 75 MCG TAB PO SCH (06:32)
[2017-01-14 06:39] LABS: INR 2.1 (0.9-1.1); PROTHROMBIN TIME (PATIENT) 22.9 SECONDS (9.0-12.0)
[2017-01-14 07:10] LABS: BUN/CREATININE RATIO 50.4 (10-20); CALCIUM 8.5 mg/dl (8.5-10.1); CREATININE 1.4 mg/dl (0.60-1.20)
[2017-01-14] MEDS: FLUTICASONE/SALMETEROL 250/50 (ADVAIR) 14 PUFF/1 INHALER INH SCH ×2 (07:17→21:01)
[2017-01-14] MEDS: FUROSEMIDE INJ 40 MG in SYRINGE 0 ML IV SCH (07:43)
[2017-01-14] MEDS: FLUTICASONE PROPIONATE NA SPR 16 GM BTL NAE SCH ×2 (07:44→21:01)
[2017-01-14] MEDS: METOPROLOL SUCC 25MG EXT REL TAB PO SCH (07:44)
[2017-01-14] MEDS: HydrALAZINE 10 MG TAB PO SCH ×2 (07:44→21:03)
[2017-01-14] MEDS: PANTOprazole SOD 40 MG TAB PO SCH (07:44)
[2017-01-14] MEDS: MONTELUKAST SOD 10 MG TAB PO SCH (07:44)
[2017-01-14] MEDS: CALCITRIOL 0.25 MCG CAP PO SCH (07:45)
[2017-01-14] MEDS: GABAPENTIN 600 MG TAB PO SCH ×2 (07:45→21:03)
[2017-01-14] MEDS: AZITHROMYCIN 250 MG TAB PO SCH (07:45)
[2017-01-14] MEDS: FERROUS SULFATE 325 MG TAB PO SCH ×2 (07:45→21:03)
[2017-01-14] MEDS: INSULIN GLARGINE SOLOSTAR 100 UNITS/ML 3 ML PEN SC SCH (07:49)
[2017-01-14] MEDS ORDERED: METHYLPREDNISOLONE IV 40 MG in SYRINGE 0 ML IV SCH (09:00)
--- NOTE | 2017-01-14 09:29 | Cardiology Follow-Up ---
Subjective General Date of Service: Jan 14, 2017. Chief Complaint: SOB Pt evaluation today including: conversation w/ patient, physical exam, chart review, lab review, review of studies, review of inpatient medication list History of Present Illness The patient is a 71 year old female seen in follow-up. No problems overnight per discussion with nursing. Telemetry demonstrates sinus rhythm with occasional premature atrial and ventricular complexes. Patient sleep upon arrival to the room. Awakens to verbal stimuli. No chest discomfort or unusual shortness of breath. Allergies Coded Allergies: Levofloxacin (Verified Allergy, Intermediate, HIVES, 01/09/17) Quinolones (Verified Allergy, Intermediate, HIVES, 01/09/17) Ranitidine (Verified Allergy, Intermediate, HIVES, 01/09/17) Sulfamethoxazole (Verified Allergy, Intermediate, HIVES, 01/09/17) Trimethoprim (Verified Allergy, Intermediate, HIVES, 01/09/17) Clarithromycin (Verified Allergy, Mild, HIVES, CAN TAKE ZITHROMAX W/O PROB , 01/09/17) Amoxicillin (Verified Allergy, Unknown, HIVES, 01/09/17) Omeprazole (Verified Allergy, Unknown, HAS HAD PROTONIX, 01/09/17) Social History Smoking Status: Former Smoker Hx Tobacco Use In Past Year?: No Hx Alcohol Use - Type And Amou: No Hx Substance Use - Type And Am: No Problem List Medical Problems: (1) Acute kidney injury Status: Acute (2) Anemia Status: Chronic (3) Atrial flutter Status: Acute (4) Back pain Status: Acute (5) Bilateral knee pain Status: Acute (6) CHF exacerbation Status: Acute (7) CHF exacerbation Status: Acute (8) Closed head injury Status: Acute (9) Concussion Status: Acute (10) COPD exacerbation Status: Acute (11) Fall Status: Acute (12) Hypoxia Status: Acute (13) Pneumonia involving right lung Status: Acute (14) Subtherapeutic international normalized ratio (INR) Status: Acute Review of Systems Respiratory: No cough, No dyspnea at rest, No hemoptysis, No shortness of breath, No wheezing Cardiac: + edema, No PND, No chest pain, No orthopnea, No palpitations Physical Exam Vital Signs Last Vital Signs Documentation Date Time Temp Pulse Resp B/P Pulse Ox O2 Delivery O2 Flow Rate FiO2 01/14/17 08:18 36.6 63 20 156/61 91 Room Air 01/14/17 07:17 4.0 Physical Exam Constitutional: General Apperance: overweight Level of Distress: acutely ill, chronically ill Psychiatric: Mental Status: lethargic Head: normocephalic Eyes: Pupils: PERRLA Neck: supple Lungs: Auscultation: deminished air movement (anteriorly) Cardiovascular: Heart Auscultation: RRR, normal S1, normal S2, no murmurs (audible. Distant heart sounds) Abdomen: Bowel Sounds: normal Inspection & Palpation: soft, non-distended Extremities: no clubbing, no ulcers, edema (trace bilateral pedal edema) Neurologic: Cranial Nerves: grossly intact Assessment and Plan Assessment and Plan Impression: 1. Acute on chronic respiratory failure which is multifactorial including underlying COPD exacerbation, diastolic heart failure, and cor pulmonale physiology 2. History of atrial flutter with s/p ablation 2014 3. 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 History of atrial septal defect repair later in life Plan: Continue cautious intravenous diuretic therapy at this time. Coumadin will be continued for goal INR of 2.0 - 3.0. Will continue low-dose beta lacho and follow telemetry. No indication for pacemaker at this time. Will continue to follow. Laboratory Results Last 24 Hours Test 01/13/17 11:49 01/13/17 16:06 01/13/17 20:16 01/14/17 05:56 Bedside Glucose 131 mg/dl 170 mg/dl 158 mg/dl Prothrombin Time 22.9 SECONDS Prothromb Time International Ratio 2.1 Sodium Level 141 mmol/L Potassium Level 4.0 mmol/L Chloride Level 101 mmol/L Carbon Dioxide Level 31 mmol/L Anion Gap 9.0 mmol/L Blood Urea Nitrogen 71 mg/dl Creatinine 1.40 mg/dl Est Creatinine Clear Calc Drug Dose 28.6 ml/min Estimated GFR () 43.4 Estimated GFR (Non- 37.4 BUN/Creatinine Ratio 50.4 Random Glucose 82 mg/dl Calcium Level 8.5 mg/dl Test 01/14/17 06:43 Bedside Glucose 84 mg/dl
--- NOTE | 2017-01-14 11:20 | Progress Note ---
Internal Med Progress Note Date of Service: Jan 14, 2017. Provider Documentation: SUBJECTIVE: Patient is seen and examined at bedside. Drowsy this morning but easily awakes. Currently on BiPAP. Denies chest pain, SOB. OBJECTIVE: Vital Signs-as noted below Physical Exam: General Appearance:Moderately built and nourished, no apparent distress Head: normocephalic, Atraumatic Eyes: normal inspection, EOMI, PERRLA Neck: supple, Trachea midline Respiratory/Chest: Normal breath sounds, + creps at bases b/l Cardiovascular: S1, S2, No murmur Abdomen/GI:Soft, Non tender, Bowel sounds present Extremities/Musculoskelatal:normal inspection, Trace edema Neurologic/Psych:+ drowsy, grossly no focal neurological deficits Skin: normal color, warm, Left side of chest, well healed surgical scar Lab data as noted below. ASSESSMENT & PLAN: ACUTE ON CHRONIC HYPOXIC/HYPERCARBIC RESPIRATORY FAILURE: MULTIFACTORIAL RLL PNEUMONIA: Likely gram negative/Possible aspiration COPD EXACERBATION ACUTE ON CHRONIC RIGHT HEART FAILURE/COR [place]MON[place] SEVERE PULMONARY HYPERTENSION OBSTRUCTIVE SLEEP APNEA TRACHEOBRONCHOMALACIA patient presented with worsening SOB, productive cough since 1 week: started on doxycycline by PCP on 01/02 CXR: findings suggestive of RLL pneumonia chronic oxygen dependency: 2-4 liters at home: Currently saturating well on 4lNC ABG:consistent with respiratory acidosis and metabolic alkalosis H/O MRSA bacteremia, Continue IV Ertapenem # day 6 Vancomycin discontinued FU cultures :Blood-No growth to date; Sputum:Normal kurtis Continue Zithromax to cover legionella, titers: pending. Will dc if negative ( Monitor QTC) Flu PCR:negative Continue steroids taper and bronchodilators Continue BiPAP PRN Appreciate Pulmonary input Last ECHO:04/2016 - EF 45-49%, moderate pulmonary hypertension Recheck ECHO: 01/10/17- Severe pulmonary HTN, EF:60-65%, Severe TR continue IV lasix daily (Patient on Bumex 1mg daily at home) Monitor I/Os, daily weight, low salt diet Appreciate cardiology help Follow up Doppler to R/O DVT, May requires: V/Q (rule out CTEPH), right heart catheterization with LEVDP and shunt fraction PAROXYSMAL AFIB s/p ABLATIONS X 2 H/O tachybrady s/p pacemaker however pacer removed due to lead vegetation 15 beat run of non sustained VT on 01/11/17 and 01/12/17 Likely secondary to hypoxia Rate controlled Continue metoprolol Continue Coumadin: 4mg today Monitor INR:2.1 today Cardiology following No indication for pacemaker currently Mild Abd pain: Resolved Presented with Nausea/Vomiting/Diarrhea prior to admission c.diff: Negative Continue Protonix KUB: No signs of obstruction HEMOPTYSIS Resolved Reported by patient prior to admission Hb stable Coumadin resumed THROMBOCYTOPENIA Likely secondary acute illness Improving continue to monitor HTN controlled continue hydralazine and metoprolol Also on lasix CKD STAGE IV Baseline cr: mid - high 1's Cr:1.4 at baseline continue to monitor HYPOTHYROIDISM continue levothyroxine DVT PROPHYLAXIS On Coumadin CODE STATUS full code. DISPOSITION: Continue to monitor in Tele Discharge planning: Home with Home health PROCEDURES: * Severe pulmonary hypertension * The right ventricle is severely dilated. * The right ventricular systolic function is severely reduced. * The right atrium is severely dilated. * There is severe tricuspid regurgitation. * Flattened septum is consistent with RV pressure overload. * There is moderate concentric left ventricular hypertrophy. * Ejection Fraction = 60-65%. * Prolapse of the anterior mitral leaflet. * There is mild to moderate mitral regurgitation. Vital Signs: Date Time Temp Pulse Resp B/P Pulse Ox O2 Delivery O2 Flow Rate FiO2 01/14/17 08:18 36.6 63 20 156/61 91 Room Air 01/14/17 07:17 60 20 94 Nasal Cannula 4.0 01/14/17 04:00 93 Room Air 01/14/17 03:25 35.6 51 21 138/47 92 BiPAP 4.0 01/14/17 02:44 55 95 4.0 01/14/17 02:43 55 20 91 BiPAP/CPAP 4.0 01/14/17 00:36 55 96 4.0 01/14/17 00:02 37.1 55 21 127/69 95 Nasal Cannula 4.0 01/13/17 23:59 95 Room Air 01/13/17 20:00 95 Room Air 01/13/17 19:09 36.6 55 18 145/76 96 Nasal Cannula 4.0 01/13/17 19:00 53 20 95 Nasal Cannula 4.0 01/13/17 16:04 37.0 54 20 136/62 92 Nasal Cannula 4.0 01/13/17 16:00 Nasal Cannula 3.0 01/13/17 14:00 56 20 98 Nasal Cannula 4.0 01/13/17 12:45 36.4 62 18 136/58 92 Nasal Cannula 4.0 01/13/17 12:00 Nasal Cannula 3.0 Lab Results: Results Past 24 Hours Test 01/13/17 11:49 01/13/17 16:06 01/13/17 20:16 01/14/17 05:56 Range/Units Bedside Glucose 131 170 158 70-90 mg/dl Prothrombin Time 22.9 9.0-12.0 SECONDS Prothromb Time International Ratio 2.1 0.9-1.1 Sodium Level 141 136-145 mmol/L Potassium Level 4.0 3.5-5.1 mmol/L Chloride Level 101 98-107 mmol/L Carbon Dioxide Level 31 21-32 mmol/L Anion Gap 9.0 3-11 mmol/L Blood Urea Nitrogen 71 7-18 mg/dl Creatinine 1.40 0.60-1.20 mg/dl Est Creatinine Clear Calc Drug Dose 28.6 ml/min Estimated GFR () 43.4 Estimated GFR (Non- 37.4 BUN/Creatinine Ratio 50.4 10-20 Random Glucose 82 70-99 mg/dl Calcium Level 8.5 8.5-10.1 mg/dl Test 01/14/17 06:43 01/14/17 11:00 Range/Units Bedside Glucose 84 186 70-90 mg/dl
[2017-01-14] MEDS: GABAPENTIN 300 MG CAP PO SCH (11:54)
[2017-01-14 12:14] LABS: LEGIONELLA ANTIGEN NOT DETECTED
[2017-01-14] MEDS: WARFARIN SOD 4 MG TAB PO SCH (16:49)
--- NOTE | 2017-01-14 19:57 | DIAGNOSTIC IMAGING REPORT ---
BILATERAL LOWER EXTREMITY VENOUS DOPPLER HISTORY: Pain. Edema. R/O DVT COMPARISON STUDY: 10/13/2011 FINDINGS: There is normal compressibility, flow, and augmentation within the bilateral lower extremity deep venous systems. IMPRESSION: No DVT within the right or left lower extremity. Electronically signed by: Luis Fernando Keene M.D. 01/14/2017 7:56 PM Dictated Date/Time: 01/14/2017 7:55 PM
[2017-01-14] MEDS: PRAVASTATIN SOD 40 MG TAB PO SCH (21:02)
[2017-01-14] MEDS: DONEPEZIL HCL 10 MG TAB PO SCH (21:04)
[2017-01-14] MEDS: ERTAPENEM IV 500 MG in SODIUM CHLORIDE 0.9% 50ML 50 ML IV SCH (21:07)
[2017-01-15] VITALS (14 sets, daily range): BP systolic 133–157; BP diastolic 66–84; PULSE 50–104; TEMP 36.7–37.2; O2SAT 92–96
[2017-01-15] MEDS: ALBUT/IPRATROP 3MG/0.5MG NEB 3 ML VIAL INH SCH ×4 (02:31→19:18)
[2017-01-15] MEDS: LEVOTHYROXINE 75 MCG TAB PO SCH (05:31)
[2017-01-15 06:06] LABS: INR 2.9 (0.9-1.1); PROTHROMBIN TIME (PATIENT) 32.3 SECONDS (9.0-12.0)
[2017-01-15 06:26] LABS: BUN/CREATININE RATIO 52.6 (10-20); CALCIUM 8.4 mg/dl (8.5-10.1); CREATININE 1.2 mg/dl (0.60-1.20); POTASSIUM 4.5 mmol/L (3.5-5.1)
--- NOTE | 2017-01-15 06:31 | Pulmonology Progress Note ---
Pulmonary Progress Note Date of Service Jan 14, 2017. Attending Darien Baldwin Subjective Patient is sleepy but arousable and orientated to person and place. She is not complaining of dyspnea on exertion at this time but notably she is on BiPAP as she was asleep when I walked in the room. Objective Patient is on BiPAP as I walked in the room looking comfortable. She was placed on BiPAP as she was sleeping. Vital signs: Reviewed currently on BiPAP 08/29:4 LO2 SaO2 90-96% (RA- BiPAP 08/29 4LO2) I/O: -575ml with 7BMs Respiratory: Decreased breath sounds but also decreased effort/difficult exam Cardiac: S1-S2 distant heart sounds unable to auscultate for murmurs rubs or gallops Extremities: No pitting edema in the dependent regions Work-up: 1)ABG a.(01/09/17) 7.43/53/73/345L b.(01/09/17) 7.36/61/66/345L c.(01/10/17) 7.44/53/62/35---6L 2)BUN/Cr: 39/1.40---71/1.4 3)Legionella Pending 4)C-diff pending 5)Influ A+B: negative 6)Sputum Pathology (01/10/17) WNL 7)Pro-BNP: 9060 8)Radiology: a.KUB: WNL-Stool b.CXR: Bibasilar infiltrates. Developing pulmonary vascular congestion c.Non-con CT thorax: i.Radiology review 1.Marked cardiomegaly 2.Signs of PH 3.Interlobular septal thickening consistent with pulmonary edema 4.Small right pleural effusion 5.Cholelithiasis 6.Findings suggestive of tracheobronchomalacia ii.My Review 1.EDAC 2.Aorta to Pulm artery ratio: 3/5 3.Diffuse RML, RLL, LLL infiltrates vs. atelectasis d.Cardiac Echo i.RV: Severe dilation, systolic function severely reduced, ii.RA: Severely dilated iii.TV: Severe tricuspid regurgitation iv.LV: LVH, EF=65% Treatment: 1)Solu-Medrol : 40mg IV QD 2)Warfarin 4mg QD (INR: 2.1) 3)Azithromycin 500mg (Day: 3 of 5) 4)Ertapenem 500mg QD ( day: 5) 5)Singular 10mg QD 6)Advair 250/50 QD (put on hold) 7) Flonase 1 puff BID 8) Duo Nebs Q6 PRN Date:07/07/14 PRE POST % CHANGE FEV1/FVC: 68 FEV1: 2.28/65% 2.58/74% 13 FVC: 3.34/76% 3.74/85% 12 25-27%: T.56/97% VC: 3.42/78% RV: 3.13/123% FRC: 3.30/88% DLCO: 67% DLCO/VA: 110% Assessment & Plan 71-year-old female with history of COPD/asthma, cor pulmonale admitted for dyspnea: #1 Acute on chronic hypoxia most likely multifactorial: Pulmonary hypertension: Suggested by echocardiogram and thoracic CAT scan-- unknown Group most likely group to an group 1. Continue to support with oxygen and balanced I/O's. We'll have to monitor closely as aggressive diuresis could drop preload --Definitive workup will require: V/Q (rule out CTEPH), right heart catheterization with LEVDP and shunt fraction --We'll repeat bilateral lower extremity ultrasounds INR today currently therapeutic at 2.1 notably subtherapeutic on arrival COPD: Pulmonary function test performed 07/07/2014 showed minimal obstructive ventilatory disease with an FEV1 of 65% We'll continue to titrate down patient's steroids Aspiration: Rounded atelectasis, chronic bronchiectasis and swallow evaluation from 02/06/2016 suggest aspiration continue to monitor Likely etiologies: Obesity hypoventilation, chronic aspiration, pulmonary hypertension unknown group, diastolic heart failure. #2 EDAC: CT of the chest suggest sepsis a dynamic airway collapse also probably adding to patient's respiratory insufficiency. The most appropriate treatment at this time is CPAP/BiPAP is much as physically tolerated. #3 JOSIAS/OHV: Continued BiPAP #4 COPD: Pulmicort function tests from 07/07/2014 suggest mild obstructive ventilatory disease with decreased DLCO at 67%. When patient is stabilized repeating her pulmonary function tests would be helpful. We'll continue to taper down on her steroids switching to by mouth/prednisone. Data Medications: Current Inpatient Medications Medications (Trade) Dose Ordered Sig/Mehdi Route Start Time Stop Time Status Last Admin Dose Admin Acetaminophen 650 mg 650 mg Q4H PRN PO 01/09/17 14:15 02/08/17 14:14 01/11/17 16:18 650 MG Furosemide/Syringe (Lasix Inj/ Syringe) 4 ml @ 4 mls/min DAILY IV 01/10/17 09:00 02/09/17 08:59 01/14/17 07:43 4 MLS/MIN Albuterol/ Ipratropium 3 ml 3 ml Q6R INH 01/09/17 15:00 02/08/17 14:59 01/14/17 02:43 3 ML Promethazine HCl/ Sodium Chloride (Phenergan Inj/ Nss 50ml) 50.5 ml @ 204 mls/hr Q6H PRN IV 01/09/17 14:30 02/08/17 14:29 Calcitriol (Rocaltrol Cap) 0.25 mcg MoWeFr@0900 PO 01/11/17 09:00 02/10/17 08:59 01/14/17 07:45 0.25 MCG Donepezil HCl (Aricept Tab) 10 mg HS PO 01/09/17 21:00 02/08/17 20:59 01/13/17 21:21 10 MG Salmeterol Xinafoate/ Fluticasone (Advair Diskus 250/50 Inh) 1 puff BID INH 01/09/17 21:00 02/08/17 20:59 01/14/17 07:17 1 PUFF Fluticasone Propionate (Flonase Nasal [place]) 1 sprays BID PAULIE 01/09/17 21:00 02/08/17 20:59 01/14/17 07:44 1 SPRAYS Gabapentin (Neurontin Cap) 300 mg DAILY@1200 PO 01/10/17 12:00 02/08/17 11:59 01/13/17 12:28 300 MG Gabapentin (Neurontin Tab) 600 mg AMHS PO 01/09/17 21:00 02/08/17 20:59 01/14/17 07:45 600 MG Hydralazine HCl (Apresoline Tab) 10 mg BID PO 01/09/17 21:00 02/08/17 20:59 01/14/17 07:44 10 MG Levothyroxine Sodium (Synthroid Tab) 75 mcg DAILYBB PO 01/10/17 06:00 02/09/17 06:59 01/14/17 06:32 75 MCG Metoprolol Succinate (Toprol Xl Tab) 12.5 mg DAILY PO 01/10/17 09:00 02/09/17 08:59 01/14/17 07:44 12.5 MG Montelukast Sodium (Singulair Tab) 10 mg DAILY PO 01/10/17 09:00 02/09/17 08:59 01/14/17 07:44 10 MG Pantoprazole Sodium (Protonix Tab) 40 mg DAILY PO 01/10/17 09:00 02/09/17 08:59 01/14/17 07:44 40 MG Ferrous Sulfate (Feosol Tab) 325 mg BID PO 01/09/17 21:00 02/08/17 20:59 01/14/17 07:45 325 MG Pravastatin Sodium (Pravachol Tab) 80 mg QPM PO 01/09/17 21:00 02/08/17 20:59 01/13/17 21:23 80 MG Miscellaneous Information 1 ea UD PRN N/A 01/09/17 22:00 02/08/17 21:59 Insulin Glargine 5 unit 5 unit DAILY SC 01/10/17 09:00 02/09/17 08:59 01/14/17 07:49 5 UNIT Ertapenem/Sodium Chloride (Invanz Iv/Nss 50ml) 55 ml @ 120 mls/hr Q24H IV 01/10/17 22:00 01/17/17 21:59 01/13/17 21:25 120 MLS/HR Azithromycin (Zithromax Tab) 500 mg QAM PO 01/11/17 09:00 01/18/17 08:59 01/14/17 07:45 500 MG Warfarin Sodium 4 mg 4 mg DAILY@16 PO 01/13/17 16:00 02/12/17 15:59 Methylprednisolone Sodium Succinate/ Syringe (Solu-Medrol IV/ Syringe) 0.64 ml @ 1.5 mls/min DAILY IV 01/14/17 09:00 02/13/17 08:59 01/14/17 07:43 1.5 MLS/MIN I & O: 24-Hour Column 01/14/17 08:00 Intake Total 1333 ml Output Total 1925 ml Balance -592 ml Vital Signs: Date Time Temp Pulse Resp B/P Pulse Ox O2 Delivery O2 Flow Rate FiO2 01/14/17 08:18 36.6 63 20 156/61 91 Room Air 01/14/17 07:17 60 20 94 Nasal Cannula 4.0 01/14/17 04:00 93 Room Air 01/14/17 03:25 35.6 51 21 138/47 92 BiPAP 4.0 01/14/17 02:44 55 95 4.0 01/14/17 02:43 55 20 91 BiPAP/CPAP 4.0 01/14/17 00:36 55 96 4.0 01/14/17 00:02 37.1 55 21 127/69 95 Nasal Cannula 4.0 01/13/17 23:59 95 Room Air 01/13/17 20:00 95 Room Air 01/13/17 19:09 36.6 55 18 145/76 96 Nasal Cannula 4.0 01/13/17 19:00 53 20 95 Nasal Cannula 4.0 01/13/17 16:04 37.0 54 20 136/62 92 Nasal Cannula 4.0 01/13/17 16:00 Nasal Cannula 3.0 01/13/17 14:00 56 20 98 Nasal Cannula 4.0 01/13/17 12:45 36.4 62 18 136/58 92 Nasal Cannula 4.0 01/13/17 12:00 Nasal Cannula 3.0 Laboratory Results: Last 24 Hours Test 01/13/17 11:49 01/13/17 16:06 01/13/17 20:16 01/14/17 05:56 Bedside Glucose 131 mg/dl 170 mg/dl 158 mg/dl Prothrombin Time 22.9 SECONDS Prothromb Time International Ratio 2.1 Sodium Level 141 mmol/L Potassium Level 4.0 mmol/L Chloride Level 101 mmol/L Carbon Dioxide Level 31 mmol/L Anion Gap 9.0 mmol/L Blood Urea Nitrogen 71 mg/dl Creatinine 1.40 mg/dl Est Creatinine Clear Calc Drug Dose 28.6 ml/min Estimated GFR () 43.4 Estimated GFR (Non- 37.4 BUN/Creatinine Ratio 50.4 Random Glucose 82 mg/dl Calcium Level 8.5 mg/dl Test 01/14/17 06:43 Bedside Glucose 84 mg/dl
[2017-01-15] MEDS: METOPROLOL SUCC 25MG EXT REL TAB PO SCH (08:52)
[2017-01-15] MEDS: INSULIN GLARGINE SOLOSTAR 100 UNITS/ML 3 ML PEN SC SCH (08:54)
[2017-01-15] MEDS: MONTELUKAST SOD 10 MG TAB PO SCH (08:54)
[2017-01-15] MEDS: FERROUS SULFATE 325 MG TAB PO SCH ×2 (08:54→21:19)
[2017-01-15] MEDS: FUROSEMIDE INJ 40 MG in SYRINGE 0 ML IV SCH (08:55)
[2017-01-15] MEDS: FLUTICASONE/SALMETEROL 250/50 (ADVAIR) 14 PUFF/1 INHALER INH SCH ×2 (08:55→21:18)
[2017-01-15] MEDS: GABAPENTIN 600 MG TAB PO SCH ×2 (08:55→21:20)
[2017-01-15] MEDS: FLUTICASONE PROPIONATE NA SPR 16 GM BTL NAE SCH ×2 (08:55→21:18)
[2017-01-15] MEDS: PANTOprazole SOD 40 MG TAB PO SCH (08:56)
[2017-01-15] MEDS: HydrALAZINE 10 MG TAB PO SCH ×2 (08:56→21:19)
--- NOTE | 2017-01-15 10:26 | Cardiology Follow-Up ---
Subjective General Date of Service: Jan 15, 2017. Chief Complaint: SOB Pt evaluation today including: conversation w/ patient, physical exam, chart review, lab review, review of studies, conversation w/ clinical practice consultant, review of inpatient medication list History of Present Illness The patient is a 71 year old female seen in follow-up. The patient is more alert today. Brief ranjan of asymptomatic paroxysmal atrial tachycardia at a rate of 130 bpm recorded overnight. Appears Toprol-XL was held this morning due to baseline sinus bradycardia. No chest discomfort or unusual shortness of breath. INR is therapeutic today. Creatinine continues to trend downward. Patient states sputum is now clear. Allergies Coded Allergies: Levofloxacin (Verified Allergy, Intermediate, HIVES, 01/09/17) Quinolones (Verified Allergy, Intermediate, HIVES, 01/09/17) Ranitidine (Verified Allergy, Intermediate, HIVES, 01/09/17) Sulfamethoxazole (Verified Allergy, Intermediate, HIVES, 01/09/17) Trimethoprim (Verified Allergy, Intermediate, HIVES, 01/09/17) Clarithromycin (Verified Allergy, Mild, HIVES, CAN TAKE ZITHROMAX W/O PROB , 01/09/17) Amoxicillin (Verified Allergy, Unknown, HIVES, 01/09/17) Omeprazole (Verified Allergy, Unknown, HAS HAD PROTONIX, 01/09/17) Social History Smoking Status: Former Smoker Hx Tobacco Use In Past Year?: No Hx Alcohol Use - Type And Amou: No Hx Substance Use - Type And Am: No Problem List Medical Problems: (1) Acute kidney injury Status: Acute (2) Anemia Status: Chronic (3) Atrial flutter Status: Acute (4) Back pain Status: Acute (5) Bilateral knee pain Status: Acute (6) CHF exacerbation Status: Acute (7) CHF exacerbation Status: Acute (8) Closed head injury Status: Acute (9) Concussion Status: Acute (10) COPD exacerbation Status: Acute (11) Fall Status: Acute (12) Hypoxia Status: Acute (13) Pneumonia involving right lung Status: Acute (14) Subtherapeutic international normalized ratio (INR) Status: Acute Review of Systems Respiratory: + cough, + dyspnea on exertion, + sputum, No dyspnea at rest, No hemoptysis, No shortness of breath, No wheezing Cardiac: No PND, No chest pain, No claudication, No edema, No orthopnea, No palpitations Physical Exam Vital Signs Last Vital Signs Documentation Date Time Temp Pulse Resp B/P Pulse Ox O2 Delivery O2 Flow Rate FiO2 01/15/17 07:15 50 18 94 Nasal Cannula 4.0 01/15/17 06:57 37.2 145/66 Physical Exam Constitutional: General Apperance: overweight Level of Distress: acutely ill, chronically ill Psychiatric: Mental Status: lethargic Head: normocephalic Eyes: Pupils: PERRLA Neck: supple Lungs: Auscultation: deminished air movement (anteriorly) Cardiovascular: Heart Auscultation: RRR, normal S1, normal S2, no murmurs (audible. Distant heart sounds) Abdomen: Bowel Sounds: normal Inspection & Palpation: soft, non-distended Extremities: no clubbing, no ulcers, edema (trace bilateral pedal edema) Neurologic: Cranial Nerves: grossly intact Assessment and Plan Assessment and Plan Impression: 1. Acute on chronic respiratory failure which is multifactorial including underlying COPD exacerbation, diastolic heart failure, and cor pulmonale physiology 2. History of atrial flutter with s/p ablation 2014 - brief ranjan of paroxysmal atrial tachycardia recorded on telemetry last evening 3. 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 History of atrial septal defect repair later in life Plan: Continue intravenous diuretic therapy at this time. Coumadin will be continued for goal INR of 2.0 - 3.0. Will continue low-dose beta lacho and follow telemetry. No indication for pacemaker at this time. I have ordered a dose of Toprol to be given this AM. (Patient did not receive dose today) Will continue to follow. Laboratory Results Last 24 Hours Test 01/14/17 11:00 01/14/17 16:43 01/14/17 20:21 01/15/17 05:40 Bedside Glucose 186 mg/dl 134 mg/dl 158 mg/dl Prothrombin Time 32.3 SECONDS Prothromb Time International Ratio 2.9 Sodium Level 140 mmol/L Potassium Level 4.5 mmol/L Chloride Level 100 mmol/L Carbon Dioxide Level 29 mmol/L Anion Gap 11.0 mmol/L Blood Urea Nitrogen 63 mg/dl Creatinine 1.20 mg/dl Est Creatinine Clear Calc Drug Dose 33.4 ml/min Estimated GFR () 52.3 Estimated GFR (Non- 45.1 BUN/Creatinine Ratio 52.6 Random Glucose 105 mg/dl Calcium Level 8.4 mg/dl Test 01/15/17 07:14 Bedside Glucose 99 mg/dl
--- NOTE | 2017-01-15 10:35 | Progress Note ---
Internal Med Progress Note Date of Service: Jan 15, 2017. Provider Documentation: SUBJECTIVE: Patient is sitting in chair and comfortable Hard of hearing + Denies any SOB, does have cough, but not producing much sputum No chest pain, fever, chills, nausea, vomiting, abdominal pain. On oxygen 4 L [place] catheter in situ Tele- paroxysmal atrial tachy - 130s x yesterday OBJECTIVE: Vital Signs-as noted below Exam: General Appearance:Moderately built and nourished, no apparent distress Eyes: No icterus Neck: supple, short neck Respiratory/Chest: Normal breath sounds, + creps at bases b/l Cardiovascular: S1, S2, No murmur Extremities/Musculoskelatal: Trace edema Neurologic/Psych:grossly no focal neurological deficits Lab data as noted below. ASSESSMENT & PLAN: ASSESSMENT & PLAN: ACUTE ON CHRONIC HYPOXIC/HYPERCARBIC RESPIRATORY FAILURE: Multifactorial: COPD/ Possible Pneumonia RLL/ Acute on chronic CHF (Diastolic), EDAC with chronic issues - Cor pulmonale, Obesity hypoventilation, chronic aspiration, pulmonary hypertension unknown group. Home oxygen: 2-4 Litres at home, now on 4 L -Patient presented with worsening SOB, productive cough since 1 week: started on doxycycline by PCP on 01/02 -Continue with steroid- taper PO prednisone, Nebs. -Continue with diuretics-IV lasix 40 mg daily -Continue IV Ertapenem # day 7 - last day today ; Vancomycin discontinued as MRSA was negative -Work up- CXR: findings suggestive of RLL pneumonia; ABG:consistent with respiratory acidosis and metabolic alkalosis; Blood cx- no growth, sputum- normal kurtis, PCR - negative, Legionella- Pending; Echo- Severe PHT, Mild- Moderate MR, Severe TR, RA/RV - severely dilated; Venous duplex- negative for DVT -Appreciate Pulmonary input. Discussed with Dr Baldwin. May requires: V/Q ( rule out CTEPH), right heart catheterization with LEVDP and shunt fraction . 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 On lasix CKD STAGE IV Baseline cr: mid - high 1's; creatinine 1.20 today -at baseline -continue to monitor HYPOTHYROIDISM -Continue levothyroxine DVT PROPHYLAXIS -On Coumadin CODE STATUS Full code. DISPOSITION: Continue to monitor in Tele Discharge planning: Home with Home health Vital Signs: Date Time Temp Pulse Resp B/P Pulse Ox O2 Delivery O2 Flow Rate FiO2 01/15/17 07:15 50 18 94 Nasal Cannula 4.0 01/15/17 07:15 50 18 94 Nasal Cannula 4.0 01/15/17 06:57 37.2 50 20 145/66 93 Nasal Cannula 4.0 01/15/17 04:00 94 BiPAP 4.0 01/15/17 03:24 36.7 57 20 144/71 94 BiPAP 4.0 01/15/17 02:31 56 18 94 BiPAP/CPAP 4.0 01/15/17 00:46 36.9 55 18 157/66 92 BiPAP 4.0 01/14/17 23:59 95 BiPAP 4.0 01/14/17 23:22 56 95 4.0 01/14/17 20:00 Nasal Cannula 3.0 01/14/17 19:57 57 18 94 Nasal Cannula 4.0 01/14/17 19:03 36.6 55 18 159/68 95 Nasal Cannula 3.5 01/14/17 16:00 Nasal Cannula 3.0 01/14/17 15:44 36.2 53 18 153/55 93 Nasal Cannula 3.5 01/14/17 14:18 51 18 94 Nasal Cannula 4.0 01/14/17 12:14 36.2 55 18 155/99 93 Nasal Cannula 4.0 01/14/17 12:00 Nasal Cannula 3.0 Lab Results: Results Past 24 Hours Test 01/14/17 11:00 01/14/17 16:43 01/14/17 20:21 01/15/17 05:40 Range/Units Bedside Glucose 186 134 158 70-90 mg/dl Prothrombin Time 32.3 9.0-12.0 SECONDS Prothromb Time International Ratio 2.9 0.9-1.1 Sodium Level 140 136-145 mmol/L Potassium Level 4.5 3.5-5.1 mmol/L Chloride Level 100 98-107 mmol/L Carbon Dioxide Level 29 21-32 mmol/L Anion Gap 11.0 3-11 mmol/L Blood Urea Nitrogen 63 7-18 mg/dl Creatinine 1.20 0.60-1.20 mg/dl Est Creatinine Clear Calc Drug Dose 33.4 ml/min Estimated GFR () 52.3 Estimated GFR (Non- 45.1 BUN/Creatinine Ratio 52.6 10-20 Random Glucose 105 70-99 mg/dl Calcium Level 8.4 8.5-10.1 mg/dl Test 01/15/17 07:14 Range/Units Bedside Glucose 99 70-90 mg/dl
[2017-01-15] MEDS ORDERED: METOPROLOL SUCC 25MG EXT REL TAB PO ONE (10:45)
[2017-01-15] MEDS: GABAPENTIN 300 MG CAP PO SCH (11:53)
--- NOTE | 2017-01-15 13:56 | Pulmonology Progress Note ---
Pulmonary Progress Note Date of Service Jan 15, 2017. Attending Dr. Baldwin Subjective Continues to report cough productive of white/clear liquid. No blood. Denies chest pain, pleuritic pain or abdominal discomfort. Objective 71-yo female admitted to [facility] 01/09/17 with symptoms of lethargy, cough, dyspnea and hypoxia. Prior records were reviewed. PMHx includes: atrial flutter (s/p ablation), congestive heart failure, Pulmonary hypertension, h/o bacterial endocarditis/ MRSA septicemia, GERD, h/o ASD, mild COPD on 2-4LPM ([employer] Advair 250/50 and Incruse), h/o aspiration, CKD with single kidney. Former tobacco: 30-pack year , quit 2004. Patient admitted to [facility] 01/09/17 with hypoxia and imaging consistent with bilateral pneumonia (right middle - lower and left lower) pneumonia, pulmonary vascular congestion, and tracheomalacia. Influenza: negative. ProBNP: 9K, ABG consistent with compensated respiratory acidosis. She was treated with diuresis , IV steroid, antibiotics, BiPAP (i10/e5) and oxygen. Today: - WBC/Hgb/Hct/Plts: 6.79 / 10.3/31.3/124 - Co2: 29 - Venous doppler bilateral LE: unremarkable - 96% 4LPM, bradycardia - Ertapenem, azithromycin (off), 40m PO prednisone Physical Exam: Constitutional: Well developed elderly female sleeping soundly in hospital bed. Aroused to voice Head: + facial symmetry. O2 via nasal cannula Eyes: Corrective lenses. Eomi, PERRLA, no injection Mouth: Moist mucous membranes. Respiratory: Non-labored respirations. Loose cough on exam. Scattered crackles throughout. Diminished BS at bases CV: Slow rate, regular rhythm. Warm and perfused peripherally with +2 RP/DPs bilaterally. Abdomen: Soft, active bowel sounds. Non-tender MSK/Extremities: Moving and developed symmetrically. Trace edema RLE. IV benign RUE Neurologic: Moderately hard of hearing. Answers questions appropriately. Assessment & Plan 71-year-old female with history of COPD/asthma, cor pulmonale admitted with acute on chronic hypoxic respiration failure with bilateral infiltrate and pulmonary edema: - Pulmonary hypertension suggested by echocardiogram and chest CAT - Further OP work-up to include V/Q scan and right heart catheterization - I/Os, daily AM weights - COPD/Asthma- FEV1: 65%: - Aspiration: Aspiration precautions - revisit by speech for any updated recommendations - Prednisone 40mg today and wean by 5mg q 3-days unless otherwise clinically indicated - Repeat PFTs as outpatient - Continue Advair and Q6-duo-nebs - Initiate Spiriva on discharge - Dynamic airway collapse by CT: Airway splinting - recommend sleep on CPAP Patient discussed and examined agree with plan above Data Medications: Current Inpatient Medications Medications (Trade) Dose Ordered Sig/Mehdi Route Start Time Stop Time Status Last Admin Dose Admin Acetaminophen 650 mg 650 mg Q4H PRN PO 01/09/17 14:15 02/08/17 14:14 01/11/17 16:18 650 MG Furosemide/Syringe (Lasix Inj/ Syringe) 4 ml @ 4 mls/min DAILY IV 01/10/17 09:00 02/09/17 08:59 01/15/17 08:55 4 MLS/MIN Albuterol/ Ipratropium 3 ml 3 ml Q6R INH 01/09/17 15:00 02/08/17 14:59 01/15/17 07:15 3 ML Promethazine HCl/ Sodium Chloride (Phenergan Inj/ Nss 50ml) 50.5 ml @ 204 mls/hr Q6H PRN IV 01/09/17 14:30 02/08/17 14:29 Calcitriol (Rocaltrol Cap) 0.25 mcg MoWeFr@0900 PO 01/11/17 09:00 02/10/17 08:59 01/14/17 07:45 0.25 MCG Donepezil HCl (Aricept Tab) 10 mg HS PO 01/09/17 21:00 02/08/17 20:59 01/14/17 21:04 10 MG Salmeterol Xinafoate/ Fluticasone (Advair Diskus 250/50 Inh) 1 puff BID INH 01/09/17 21:00 02/08/17 20:59 01/15/17 08:55 1 PUFF Fluticasone Propionate (Flonase Nasal [place]) 1 sprays BID PAULIE 01/09/17 21:00 02/08/17 20:59 01/15/17 08:55 1 SPRAYS Gabapentin (Neurontin Cap) 300 mg DAILY@1200 PO 01/10/17 12:00 02/08/17 11:59 01/15/17 11:53 300 MG Gabapentin (Neurontin Tab) 600 mg AMHS PO 01/09/17 21:00 02/08/17 20:59 01/15/17 08:55 600 MG Hydralazine HCl (Apresoline Tab) 10 mg BID PO 01/09/17 21:00 02/08/17 20:59 01/15/17 08:56 10 MG Levothyroxine Sodium (Synthroid Tab) 75 mcg DAILYBB PO 01/10/17 06:00 02/09/17 06:59 01/15/17 05:31 75 MCG Metoprolol Succinate (Toprol Xl Tab) 12.5 mg DAILY PO 01/10/17 09:00 01/14/17 07:44 12.5 MG Montelukast Sodium (Singulair Tab) 10 mg DAILY PO 01/10/17 09:00 02/09/17 08:59 01/15/17 08:54 10 MG Pantoprazole Sodium (Protonix Tab) 40 mg DAILY PO 01/10/17 09:00 02/09/17 08:59 01/15/17 08:56 40 MG Ferrous Sulfate (Feosol Tab) 325 mg BID PO 01/09/17 21:00 02/08/17 20:59 01/15/17 08:54 325 MG Pravastatin Sodium (Pravachol Tab) 80 mg QPM PO 01/09/17 21:00 02/08/17 20:59 01/14/17 21:02 80 MG Miscellaneous Information 1 ea UD PRN N/A 01/09/17 22:00 01/15/17 23:59 Insulin Glargine 5 unit 5 unit DAILY SC 01/10/17 09:00 02/09/17 08:59 01/15/17 08:54 5 UNIT Ertapenem/Sodium Chloride (Invanz Iv/Nss 50ml) 55 ml @ 120 mls/hr Q24H IV 01/10/17 22:00 01/15/17 22:28 01/14/17 21:07 120 MLS/HR Warfarin Sodium (Coumadin Tab) 4 mg DAILY@16 PO 01/13/17 16:00 02/12/17 15:59 01/14/17 16:49 4 MG Prednisone (PredniSONE TAB) 20 mg BID PO 01/14/17 21:00 02/13/17 20:59 01/15/17 08:54 20 MG I & O: 24-Hour Column 01/15/17 07:59 Intake Total 660 ml Output Total 1500 ml Balance -840 ml Vital Signs: Date Time Temp Pulse Resp B/P Pulse Ox O2 Delivery O2 Flow Rate FiO2 01/15/17 12:21 96 Nasal Cannula 4.0 01/15/17 12:14 66 18 133/70 96 Nasal Cannula 4.0 01/15/17 12:00 Nasal Cannula 4.0 01/15/17 08:00 Nasal Cannula 4.0 01/15/17 07:15 50 18 94 Nasal Cannula 4.0 01/15/17 07:15 50 18 94 Nasal Cannula 4.0 01/15/17 06:57 37.2 50 20 145/66 93 Nasal Cannula 4.0 01/15/17 04:00 94 BiPAP 4.0 01/15/17 03:24 36.7 57 20 144/71 94 BiPAP 4.0 01/15/17 02:31 56 18 94 BiPAP/CPAP 4.0 01/15/17 00:46 36.9 55 18 157/66 92 BiPAP 4.0 01/14/17 23:59 95 BiPAP 4.0 01/14/17 23:22 56 95 4.0 01/14/17 20:00 Nasal Cannula 3.0 01/14/17 19:57 57 18 94 Nasal Cannula 4.0 01/14/17 19:03 36.6 55 18 159/68 95 Nasal Cannula 3.5 01/14/17 16:00 Nasal Cannula 3.0 01/14/17 15:44 36.2 53 18 153/55 93 Nasal Cannula 3.5 01/14/17 14:18 51 18 94 Nasal Cannula 4.0 Laboratory Results: Last 24 Hours Test 01/14/17 16:43 01/14/17 20:21 01/15/17 05:40 01/15/17 07:14 Bedside Glucose 134 mg/dl 158 mg/dl 99 mg/dl Prothrombin Time 32.3 SECONDS Prothromb Time International Ratio 2.9 Sodium Level 140 mmol/L Potassium Level 4.5 mmol/L Chloride Level 100 mmol/L Carbon Dioxide Level 29 mmol/L Anion Gap 11.0 mmol/L Blood Urea Nitrogen 63 mg/dl Creatinine 1.20 mg/dl Est Creatinine Clear Calc Drug Dose 33.4 ml/min Estimated GFR () 52.3 Estimated GFR (Non- 45.1 BUN/Creatinine Ratio 52.6 Random Glucose 105 mg/dl Calcium Level 8.4 mg/dl Test 01/15/17 11:38 Bedside Glucose 109 mg/dl
[2017-01-15] MEDS: WARFARIN SOD 4 MG TAB PO SCH (16:42)
[2017-01-15] MEDS: DONEPEZIL HCL 10 MG TAB PO SCH (21:19)
[2017-01-15] MEDS: PRAVASTATIN SOD 40 MG TAB PO SCH (21:20)
[2017-01-15] MEDS: ERTAPENEM IV 500 MG in SODIUM CHLORIDE 0.9% 50ML 50 ML IV SCH (21:31)
[2017-01-16] VITALS (14 sets, daily range): BP systolic 134–160; BP diastolic 58–86; PULSE 20–81; TEMP 36.4–37.2; O2SAT 90–98
[2017-01-16] MEDS: ALBUT/IPRATROP 3MG/0.5MG NEB 3 ML VIAL INH SCH ×4 (02:54→19:56)
[2017-01-16] MEDS: LEVOTHYROXINE 75 MCG TAB PO SCH (06:03)
[2017-01-16 07:32] LABS: ARTERIAL BLD GAS O2 SATURATION 98.4 % (90-95); ARTERIAL BLOOD GAS BASE EXCESS 8.4 mEq/L (-9-1.8); ARTERIAL BLOOD GAS HCO3 33 mmol/L (19-24); ARTERIAL BLOOD GAS PO2 122 mm/Hg (80-95); ARTERIAL BLOOD GAS pH 7.47 (7.35-7.45)
[2017-01-16 07:55] LABS: MEAN CORPUSCULAR HGB CONC 32.3 g/dl (32-36)
[2017-01-16 08:03] LABS: HEMATOCRIT 33.7 % (37-47); MEAN CELL VOLUME 91.1 fL (80-100); MEAN CORPUSCULAR HEMOGLOBIN 29.5 pg (25-34); WHITE BLOOD COUNT 7.04 K/uL (4.8-10.8)
[2017-01-16 08:16] LABS: MEAN PLATELET VOLUME 13.3 fL (7.4-10.4); PLATELET COUNT 149 K/uL (130-400); PLT ESTIMATE DECREASED
[2017-01-16 08:17] LABS: PROTHROMBIN TIME (PATIENT) 33.6 SECONDS (9.0-12.0)
[2017-01-16 08:21] LABS: BUN/CREATININE RATIO 48.8 (10-20); CALCIUM 8.6 mg/dl (8.5-10.1); CREATININE 1.2 mg/dl (0.60-1.20); POTASSIUM 4.5 mmol/L (3.5-5.1)
[2017-01-16 08:21] LABS: ALLEN TEST POS (POS); O2 ADMINISTRATION 4 L
--- NOTE | 2017-01-16 09:07 | Cardiology Follow-Up ---
Subjective General Date of Service: Jan 16, 2017. Chief Complaint: SOB Pt evaluation today including: conversation w/ patient, physical exam, chart review, lab review, review of studies, review of inpatient medication list History of Present Illness The patient is a 71 year old female seen in follow-up. Patient feeling better today. Sinus bradycardia on monitor. No recurrent atrial tachycardia. No chest discomfort or unusual shortness of breath. INR is therapeutic today. Creatinine stable. +cough with clear sputum. Allergies Coded Allergies: Levofloxacin (Verified Allergy, Intermediate, HIVES, 01/09/17) Quinolones (Verified Allergy, Intermediate, HIVES, 01/09/17) Ranitidine (Verified Allergy, Intermediate, HIVES, 01/09/17) Sulfamethoxazole (Verified Allergy, Intermediate, HIVES, 01/09/17) Trimethoprim (Verified Allergy, Intermediate, HIVES, 01/09/17) Clarithromycin (Verified Allergy, Mild, HIVES, CAN TAKE ZITHROMAX W/O PROB , 01/09/17) Amoxicillin (Verified Allergy, Unknown, HIVES, 01/09/17) Omeprazole (Verified Allergy, Unknown, HAS HAD PROTONIX, 01/09/17) Social History Smoking Status: Former Smoker Hx Tobacco Use In Past Year?: No Hx Alcohol Use - Type And Amou: No Hx Substance Use - Type And Am: No Problem List Medical Problems: (1) Acute kidney injury Status: Acute (2) Anemia Status: Chronic (3) Atrial flutter Status: Acute (4) Back pain Status: Acute (5) Bilateral knee pain Status: Acute (6) CHF exacerbation Status: Acute (7) CHF exacerbation Status: Acute (8) Closed head injury Status: Acute (9) Concussion Status: Acute (10) COPD exacerbation Status: Acute (11) Fall Status: Acute (12) Hypoxia Status: Acute (13) Pneumonia involving right lung Status: Acute (14) Subtherapeutic international normalized ratio (INR) Status: Acute Review of Systems Respiratory: + cough, + dyspnea on exertion, + sputum, No dyspnea at rest, No hemoptysis, No shortness of breath, No wheezing Cardiac: + edema, No PND, No chest pain, No claudication, No orthopnea, No palpitations Physical Exam Vital Signs Last Vital Signs Documentation Date Time Temp Pulse Resp B/P Pulse Ox O2 Delivery O2 Flow Rate FiO2 01/16/17 07:34 36.4 46 22 154/86 95 Nasal Cannula 3.5 Physical Exam Constitutional: General Apperance: overweight Level of Distress: acutely ill, chronically ill Psychiatric: Mental Status: lethargic Head: normocephalic Eyes: Pupils: PERRLA Neck: supple Lungs: Auscultation: no wheezing, no rales/crackles, no rhonchi, decreased breath sounds Cardiovascular: Heart Auscultation: RRR, normal S1, normal S2, no murmurs (audible. Distant heart sounds), bradycardia Abdomen: Bowel Sounds: normal Inspection & Palpation: soft, non-distended Extremities: no clubbing, no ulcers, edema (trace bilateral pedal edema) Neurologic: Cranial Nerves: grossly intact Assessment and Plan Assessment and Plan Impression: 1. Acute on chronic respiratory failure which is multifactorial including underlying COPD exacerbation, diastolic heart failure, and cor pulmonale physiology - improving 2. History of atrial flutter with s/p ablation 2014 - sinus bradycardia on monitor 3. 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 History of atrial septal defect repair later in life Plan: Continue intravenous diuretic therapy at this time. Reduce dose of coumadin to 2mg daily. Repeat INR in AM Will continue low-dose beta lacho and follow telemetry. No indication for pacemaker at this time. Will continue to follow. Laboratory Results Last 24 Hours Test 01/15/17 11:38 01/15/17 16:23 01/15/17 20:20 01/16/17 06:26 Bedside Glucose 109 mg/dl 141 mg/dl 203 mg/dl 116 mg/dl Test 01/16/17 07:17 01/16/17 07:18 Arterial Blood pH 7.47 Arterial Blood Partial Pressure CO2 47 mmHg Arterial Blood Partial Pressure O2 122 mm/Hg Arterial Blood HCO3 33 mmol/L Arterial Blood Oxygen Saturation 98.4 % Arterial Blood Base Excess 8.4 mEq/L Arterial Blood Gas Delivery 4 L Aditya Test POS White Blood Count 7.04 K/uL Red Blood Count 3.70 M/uL Hemoglobin 10.9 g/dL Hematocrit 33.7 % Mean Corpuscular Volume 91.1 fL Mean Corpuscular Hemoglobin 29.5 pg Mean Corpuscular Hemoglobin Concent 32.3 g/dl RDW Standard Deviation 54.5 fL RDW Coefficient of Variation 16.3 % Platelet Count 149 K/uL Mean Platelet Volume 13.3 fL Platelet Estimate DECREASED Prothrombin Time 33.6 SECONDS Prothromb Time International Ratio 3.0 Sodium Level 139 mmol/L Potassium Level 4.5 mmol/L Chloride Level 100 mmol/L Carbon Dioxide Level 31 mmol/L Anion Gap 8.0 mmol/L Blood Urea Nitrogen 59 mg/dl Creatinine 1.20 mg/dl Est Creatinine Clear Calc Drug Dose 33.5 ml/min Estimated GFR () 52.3 Estimated GFR (Non- 45.1 BUN/Creatinine Ratio 48.8 Random Glucose 102 mg/dl Calcium Level 8.6 mg/dl
[2017-01-16] MEDS: FUROSEMIDE INJ 40 MG in SYRINGE 0 ML IV SCH (10:06)
[2017-01-16] MEDS: FLUTICASONE/SALMETEROL 250/50 (ADVAIR) 14 PUFF/1 INHALER INH SCH ×2 (10:06→20:48)
[2017-01-16] MEDS: FLUTICASONE PROPIONATE NA SPR 16 GM BTL NAE SCH ×2 (10:06→20:48)
[2017-01-16] MEDS: FERROUS SULFATE 325 MG TAB PO SCH ×2 (10:07→20:49)
[2017-01-16] MEDS: PANTOprazole SOD 40 MG TAB PO SCH (10:07)
[2017-01-16] MEDS: MONTELUKAST SOD 10 MG TAB PO SCH (10:07)
[2017-01-16] MEDS: HydrALAZINE 10 MG TAB PO SCH ×2 (10:07→20:49)
[2017-01-16] MEDS: METOPROLOL SUCC 25MG EXT REL TAB PO SCH (10:07)
[2017-01-16] MEDS: GABAPENTIN 600 MG TAB PO SCH ×2 (10:07→20:50)
--- NOTE | 2017-01-16 10:07 | Progress Note ---
Internal Med Progress Note Date of Service: Jan 16, 2017. Provider Documentation: SUBJECTIVE: Patient is feeling better. Hard of hearing + Denies any SOB, does have cough, but not producing much sputum No chest pain, fever, chills, nausea, vomiting, abdominal pain. On oxygen 3.5 L Foleys catheter in situ Tele- Bradycardia, Sinus dropping down to 40s while resting and mostly in 50s OBJECTIVE: Vital Signs-as noted below Exam: General Appearance:Moderately built and nourished, no apparent distress Eyes: No icterus Neck: supple, short neck Respiratory/Chest: Normal breath sounds, + creps at bases b/l Cardiovascular: S1, S2, No murmur Extremities/Musculoskelatal: Trace edema Neurologic/Psych:grossly no focal neurological deficits Lab data as noted below. ASSESSMENT & PLAN: ASSESSMENT & PLAN: ACUTE ON CHRONIC HYPOXIC/HYPERCARBIC RESPIRATORY FAILURE: Multifactorial: COPD/ Possible Pneumonia RLL/ Acute on chronic CHF (Diastolic), EDAC with chronic issues - Cor pulmonale, Obesity hypoventilation, chronic aspiration, pulmonary hypertension unknown group. Home oxygen: 2-4 Litres at home, now on 3.5 L -Patient presented with worsening SOB, productive cough since 1 week: started on doxycycline by PCP on 01/02 -Continue with steroid- taper PO prednisone, Nebs. -Continue with diuretics-IV lasix 40 mg daily -IV Ertapenem # days 7 - last day 01/15/17 ; Vancomycin discontinued as MRSA was negative -Work up- CXR: findings suggestive of RLL pneumonia; ABG:consistent with respiratory acidosis and metabolic alkalosis; Blood cx- no growth, sputum- normal kurtis, PCR - negative, Legionella- Pending; Echo- Severe PHT, Mild- Moderate MR, Severe TR, RA/RV - severely dilated; Venous duplex- negative for DVT -Appreciate Pulmonary input. Discussed with Dr Baldwin. May require: V/Q ( rule out CTEPH), right heart catheterization with LEVDP and shunt fraction . Will need outpatient repeat PFTs. EDAC (Excessive dynamic airway collapse) Per Pulmonary- BIPAP recommended -Nocturnal pulse oxi/ABG done -Will need BIPAP at home. Pulmonary will help making arrangements for it. 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 HR drops to 40s at rest and mostly in 50s. Discussed with cardiology- okay to continue with low dose metoprolol, as does have paroxysmal bouts of atrial tachycardia. -Anti coagulation- INR therapeutic on coumadin - decreased dose to 2 mg as climbing up too quickly and on steroids -Appreciate cardiology inputs MILD ABD PAIN: Resolved Presented with Nausea/Vomiting/Diarrhea prior to admission -Work up- c.diff: Negative; KUB - no obstruction -Continue Protonix THROMBOCYTOPENIA, MILD - Resolving Likely secondary acute illness Improving with no signs of active bleeding -Monitor HTN - controlled -Continue hydralazine and metoprolol . On lasix CKD STAGE IV Baseline cr: mid - high 1's; creatinine 1.20 today -at baseline -continue to monitor HYPOTHYROIDISM -Continue levothyroxine DVT PROPHYLAXIS -On Coumadin CODE STATUS Full code. DISPOSITION: Continue to monitor in Tele Discharge planning: [facility] Need to make arrangements for BIPAP PT/OT ordered today Vital Signs: Date Time Temp Pulse Resp B/P Pulse Ox O2 Delivery O2 Flow Rate FiO2 01/16/17 08:00 95 Nasal Cannula 3.5 01/16/17 07:34 36.4 46 22 154/86 95 Nasal Cannula 3.5 01/16/17 04:00 96 Nasal Cannula 4.0 01/16/17 04:00 37.2 50 20 160/84 96 Nasal Cannula 4.0 20 01/16/17 00:37 50 96 4.0 01/16/17 00:01 95 Nasal Cannula 4.0 01/15/17 23:15 37.0 53 22 144/84 95 Nasal Cannula 4.0 01/15/17 20:00 96 Nasal Cannula 4.0 01/15/17 19:52 36.9 53 22 156/66 96 4.0 01/15/17 19:18 104 18 96 Nasal Cannula 4.0 01/15/17 16:00 Nasal Cannula 4.0 01/15/17 15:45 36.7 60 22 153/77 94 Nasal Cannula 4.0 01/15/17 13:28 51 18 94 Nasal Cannula 4.0 01/15/17 12:21 96 Nasal Cannula 4.0 01/15/17 12:14 66 18 133/70 96 Nasal Cannula 4.0 01/15/17 12:00 Nasal Cannula 4.0 Lab Results: Results Past 24 Hours Test 01/15/17 11:38 01/15/17 16:23 01/15/17 20:20 01/16/17 06:26 Range/Units Bedside Glucose 109 141 203 116 70-90 mg/dl Test 01/16/17 07:17 01/16/17 07:18 Range/Units Arterial Blood pH 7.47 7.35-7.45 Arterial Blood Partial Pressure CO2 47 35-46 mmHg Arterial Blood Partial Pressure O2 122 80-95 mm/Hg Arterial Blood HCO3 33 19-24 mmol/L Arterial Blood Oxygen Saturation 98.4 90-95 % Arterial Blood Base Excess 8.4 -9-1.8 mEq/L Arterial Blood Gas Delivery 4 L Aditya Test POS POS White Blood Count 7.04 4.8-10.8 K/uL Red Blood Count 3.70 4.2-5.4 M/uL Hemoglobin 10.9 12.0-16.0 g/dL Hematocrit 33.7 37-47 % Mean Corpuscular Volume 91.1 80-100 fL Mean Corpuscular Hemoglobin 29.5 25-34 pg Mean Corpuscular Hemoglobin Concent 32.3 32-36 g/dl RDW Standard Deviation 54.5 36.4-46.3 fL RDW Coefficient of Variation 16.3 11.5-14.5 % Platelet Count 149 130-400 K/uL Mean Platelet Volume 13.3 7.4-10.4 fL Platelet Estimate DECREASED Prothrombin Time 33.6 9.0-12.0 SECONDS Prothromb Time International Ratio 3.0 0.9-1.1 Sodium Level 139 136-145 mmol/L Potassium Level 4.5 3.5-5.1 mmol/L Chloride Level 100 98-107 mmol/L Carbon Dioxide Level 31 21-32 mmol/L Anion Gap 8.0 3-11 mmol/L Blood Urea Nitrogen 59 7-18 mg/dl Creatinine 1.20 0.60-1.20 mg/dl Est Creatinine Clear Calc Drug Dose 33.5 ml/min Estimated GFR () 52.3 Estimated GFR (Non- 45.1 BUN/Creatinine Ratio 48.8 10-20 Random Glucose 102 70-99 mg/dl Calcium Level 8.6 8.5-10.1 mg/dl
[2017-01-16] MEDS: CALCITRIOL 0.25 MCG CAP PO SCH (10:08)
[2017-01-16] MEDS: INSULIN GLARGINE SOLOSTAR 100 UNITS/ML 3 ML PEN SC SCH (10:09)
--- NOTE | 2017-01-16 10:24 | Pulmonology Progress Note ---
Pulmonary Progress Note Date of Service Jan 16, 2017. Attending Dr. Baldwin Subjective Denies dyspnea. Cough persistens productive of clear sputum. Has ambulated to the toilet without limiting dyspnea. Objective 71-yo female admitted to [facility] 01/09/17 with bilateral pneumonia complicated by obesity hypoventillation syndrome, EDAC, suspected pulmonary HTN and edema. 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 Former tobacco: 30-pack year, quit 2004. Patient admitted to [facility] 01/09/17 with hypoxia and imaging consistent with bilateral pneumonia (right middle - lower and left lower), pulmonary vascular congestion, and tracheomalacia. ABG consistent with compensated respiratory acidosis. She was treated with diuresis, IV steroid, antibiotics (completed ertapenem and azithromycin), BiPAP (i10/e5) and oxygen. Today: - WBC/Hgb/Hct/Plts: 7.04/10.9/33.7/149 - INR: 3 - personal insurance advisor AB.47/47/122-4LPM/33 - Overnight pulse oximetry: desaturation 21.7 continuous minutes spent below 89 % Physical Exam: Constitutional: Well developed elderly female sleeping soundly in hospital bed. Easily aroused. Head: + facial symmetry. O2 via nasal cannula Eyes: Corrective lenses. EOMi, PERRLA, no injection Mouth: Moist mucous membranes. Respiratory: Non-labored respirations. Loose cough on exam. Crackles bilaterally Left > Right. Diminished BS at bases CV: Slow rate, regular rhythm. Warm and perfused peripherally with +2 RP/DPs bilaterally. : romero catheter in place Abdomen: Soft, active bowel sounds. Non-tender MSK/Extremities: Moving and developed symmetrically. Trace edema RLE. Neurologic: Moderately hard of hearing. Answers questions appropriately. Assessment & Plan 71-year-old female with history of COPD/asthma, tracheomalacia/EDAC, cor pulmonale admitted with acute on chronic hypoxic hypercarbic respiratory failure with bilateral infiltrate and pulmonary edema: - Pulmonary hypertension suggested by echocardiogram and chest CAT complicated by structural abnormalities - Outpatient: V/Q scan & right heart catheterization recommended - I/Os, daily weights - COPD/Asthma- FEV1: 65%: - H/O aspiration: Aspiration precautions - Prednisone wean to 35mg (order placed) - Repeat PFTs as outpatient - Continue Advair and Q6-duo-nebs and discharge on Incruse - Bilateral pneumonia: - Completed course of antibiotic - Low flow flutter valve and IS - Dynamic airway collapse by CTm suspected obesity hypoventilation syndrome: - Airway splinting - recommend sleep on BiPAP - Nocturnal oximetry: consistent with desaturation - Case management - Consideration for PSG with PAP titration for optimal pressures as outpatient as well Patient reviewed and agree with plan. Data Medications: Current Inpatient Medications Medications (Trade) Dose Ordered Sig/Mehdi Route Start Time Stop Time Status Last Admin Dose Admin Acetaminophen 650 mg 650 mg Q4H PRN PO 01/09/17 14:15 02/08/17 14:14 01/11/17 16:18 650 MG Furosemide/Syringe (Lasix Inj/ Syringe) 4 ml @ 4 mls/min DAILY IV 01/10/17 09:00 02/09/17 08:59 01/16/17 10:06 4 MLS/MIN Albuterol/ Ipratropium 3 ml 3 ml Q6R INH 01/09/17 15:00 02/08/17 14:59 01/15/17 19:18 3 ML Promethazine HCl/ Sodium Chloride (Phenergan Inj/ Nss 50ml) 50.5 ml @ 204 mls/hr Q6H PRN IV 01/09/17 14:30 02/08/17 14:29 Calcitriol (Rocaltrol Cap) 0.25 mcg MoWeFr@0900 PO 01/11/17 09:00 02/10/17 08:59 01/16/17 10:08 0.25 MCG Donepezil HCl (Aricept Tab) 10 mg HS PO 01/09/17 21:00 02/08/17 20:59 01/15/17 21:19 10 MG Salmeterol Xinafoate/ Fluticasone (Advair Diskus 250/50 Inh) 1 puff BID INH 01/09/17 21:00 02/08/17 20:59 01/16/17 10:06 1 PUFF Fluticasone Propionate (Flonase Nasal [place]) 1 sprays BID PAULIE 01/09/17 21:00 02/08/17 20:59 01/16/17 10:06 1 SPRAYS Gabapentin (Neurontin Cap) 300 mg DAILY@1200 PO 01/10/17 12:00 02/08/17 11:59 01/15/17 11:53 300 MG Gabapentin (Neurontin Tab) 600 mg AMHS PO 01/09/17 21:00 02/08/17 20:59 01/16/17 10:07 600 MG Hydralazine HCl (Apresoline Tab) 10 mg BID PO 01/09/17 21:00 02/08/17 20:59 01/16/17 10:07 10 MG Levothyroxine Sodium (Synthroid Tab) 75 mcg DAILYBB PO 01/10/17 06:00 02/09/17 06:59 01/16/17 06:03 75 MCG Metoprolol Succinate (Toprol Xl Tab) 12.5 mg DAILY PO 01/10/17 09:00 01/16/17 10:07 12.5 MG Montelukast Sodium (Singulair Tab) 10 mg DAILY PO 01/10/17 09:00 02/09/17 08:59 01/16/17 10:07 10 MG Pantoprazole Sodium (Protonix Tab) 40 mg DAILY PO 01/10/17 09:00 02/09/17 08:59 01/16/17 10:07 40 MG Ferrous Sulfate (Feosol Tab) 325 mg BID PO 01/09/17 21:00 02/08/17 20:59 01/16/17 10:07 325 MG Pravastatin Sodium (Pravachol Tab) 80 mg QPM PO 01/09/17 21:00 02/08/17 20:59 01/15/17 21:20 80 MG Insulin Glargine (Lantus Solostar Pen) 5 unit DAILY SC 01/10/17 09:00 02/09/17 08:59 01/16/17 10:09 5 UNIT Prednisone (PredniSONE TAB) 20 mg BID PO 01/14/17 21:00 02/13/17 20:59 01/16/17 10:07 20 MG Warfarin Sodium (Coumadin Tab) 2 mg DAILY@16 PO 01/16/17 16:00 02/15/17 15:59 I & O: 24-Hour Column 01/16/17 07:59 Intake Total 1170 ml Output Total 1750 ml Balance -580 ml Vital Signs: Date Time Temp Pulse Resp B/P Pulse Ox O2 Delivery O2 Flow Rate FiO2 01/16/17 08:00 95 Nasal Cannula 3.5 01/16/17 07:34 36.4 46 22 154/86 95 Nasal Cannula 3.5 01/16/17 04:00 96 Nasal Cannula 4.0 01/16/17 04:00 37.2 50 20 160/84 96 Nasal Cannula 4.0 20 01/16/17 00:37 50 96 4.0 01/16/17 00:01 95 Nasal Cannula 4.0 01/15/17 23:15 37.0 53 22 144/84 95 Nasal Cannula 4.0 01/15/17 20:00 96 Nasal Cannula 4.0 01/15/17 19:52 36.9 53 22 156/66 96 4.0 01/15/17 19:18 104 18 96 Nasal Cannula 4.0 01/15/17 16:00 Nasal Cannula 4.0 01/15/17 15:45 36.7 60 22 153/77 94 Nasal Cannula 4.0 01/15/17 13:28 51 18 94 Nasal Cannula 4.0 01/15/17 12:21 96 Nasal Cannula 4.0 01/15/17 12:14 66 18 133/70 96 Nasal Cannula 4.0 01/15/17 12:00 Nasal Cannula 4.0 Laboratory Results: Last 24 Hours Test 01/15/17 11:38 01/15/17 16:23 01/15/17 20:20 01/16/17 06:26 Bedside Glucose 109 mg/dl 141 mg/dl 203 mg/dl 116 mg/dl Test 01/16/17 07:17 01/16/17 07:18 Arterial Blood pH 7.47 Arterial Blood Partial Pressure CO2 47 mmHg Arterial Blood Partial Pressure O2 122 mm/Hg Arterial Blood HCO3 33 mmol/L Arterial Blood Oxygen Saturation 98.4 % Arterial Blood Base Excess 8.4 mEq/L Arterial Blood Gas Delivery 4 L Aditya Test POS White Blood Count 7.04 K/uL Red Blood Count 3.70 M/uL Hemoglobin 10.9 g/dL Hematocrit 33.7 % Mean Corpuscular Volume 91.1 fL Mean Corpuscular Hemoglobin 29.5 pg Mean Corpuscular Hemoglobin Concent 32.3 g/dl RDW Standard Deviation 54.5 fL RDW Coefficient of Variation 16.3 % Platelet Count 149 K/uL Mean Platelet Volume 13.3 fL Platelet Estimate DECREASED Prothrombin Time 33.6 SECONDS Prothromb Time International Ratio 3.0 Sodium Level 139 mmol/L Potassium Level 4.5 mmol/L Chloride Level 100 mmol/L Carbon Dioxide Level 31 mmol/L Anion Gap 8.0 mmol/L Blood Urea Nitrogen 59 mg/dl Creatinine 1.20 mg/dl Est Creatinine Clear Calc Drug Dose 33.5 ml/min Estimated GFR () 52.3 Estimated GFR (Non- 45.1 BUN/Creatinine Ratio 48.8 Random Glucose 102 mg/dl Calcium Level 8.6 mg/dl
--- NOTE | 2017-01-16 15:36 | DIAGNOSTIC IMAGING REPORT ---
CHEST 2 VIEWS ROUTINE CLINICAL HISTORY: Respiratory failure COMPARISON STUDY: 01/09/2017 FINDINGS: The heart is enlarged. There is enlargement of the central pulmonary arteries consistent with pulmonary arterial hypertension. There is no failure. There is been interval improvement in the bibasal airspace opacities. Trace pleural effusions are suspected.[ IMPRESSION: 1. Cardiomegaly and radiographic evidence of pulmonary nodule hypertension 2. Trace pleural effusions 3. Improving basilar airspace opacities Electronically signed by: Raman Padilla M.D. 01/16/2017 3:35 PM Dictated Date/Time: 01/16/2017 3:33 PM
[2017-01-16] MEDS: WARFARIN SOD 2 MG TAB PO SCH (17:00)
[2017-01-16] MEDS: GABAPENTIN 300 MG CAP PO SCH (17:00)
[2017-01-16] MEDS: DONEPEZIL HCL 10 MG TAB PO SCH (20:49)
[2017-01-16] MEDS: PRAVASTATIN SOD 40 MG TAB PO SCH (20:50)
[2017-01-17] VITALS (12 sets, daily range): BP systolic 123–164; BP diastolic 66–103; PULSE 18–76; TEMP 36.4–37.1; O2SAT 91–94
[2017-01-17] MEDS: ALBUT/IPRATROP 3MG/0.5MG NEB 3 ML VIAL INH SCH ×3 (02:22→14:13)
[2017-01-17] MEDS: LEVOTHYROXINE 75 MCG TAB PO SCH (05:55)
[2017-01-17 06:02] LABS: INR 2.9 (0.9-1.1); PROTHROMBIN TIME (PATIENT) 32.1 SECONDS (9.0-12.0)
[2017-01-17 06:18] LABS: BUN/CREATININE RATIO 48.5 (10-20); CALCIUM 8.3 mg/dl (8.5-10.1); CREATININE 1.3 mg/dl (0.60-1.20); POTASSIUM 4.5 mmol/L (3.5-5.1)
[2017-01-17] MEDS: FLUTICASONE/SALMETEROL 250/50 (ADVAIR) 14 PUFF/1 INHALER INH SCH (08:02)
[2017-01-17] MEDS: MONTELUKAST SOD 10 MG TAB PO SCH (08:03)
[2017-01-17] MEDS: METOPROLOL SUCC 25MG EXT REL TAB PO SCH (08:03)
[2017-01-17] MEDS: FERROUS SULFATE 325 MG TAB PO SCH (08:03)
[2017-01-17] MEDS: GABAPENTIN 600 MG TAB PO SCH (08:03)
[2017-01-17] MEDS: HydrALAZINE 10 MG TAB PO SCH (08:04)
[2017-01-17] MEDS: PANTOprazole SOD 40 MG TAB PO SCH (08:04)
[2017-01-17] MEDS: FLUTICASONE PROPIONATE NA SPR 16 GM BTL NAE SCH (08:09)
[2017-01-17] MEDS: INSULIN GLARGINE SOLOSTAR 100 UNITS/ML 3 ML PEN SC SCH (08:09)
--- NOTE | 2017-01-17 08:33 | Pulmonology Progress Note ---
Pulmonary Progress Note Date of Service Jan 17, 2017. Attending Darien Baldwin Subjective Patient had no acute events overnight she notes stable pulmonary status continued dyspnea on exertion Objective 71-yo female admitted to [facility] 01/09/17 with bilateral pneumonia complicated by obesity hypoventillation syndrome, EDAC, suspected pulmonary HTN and edema. PMHx includes: atrial flutter (s/p ablation), dementia, congestive heart failure , h/o bacterial endocarditis/ MRSA septicemia, GERD, h/o ASD, mild COPD on 2- 4LPM ([employer] Advair 250/50 and Incruse), h/o aspiration, CKD with single kidney. Former tobacco: 30-pack year, quit 2004. Today: BUN/Cr: 63/1.3 I/Os: last 24hrs: -425ml/Total:-6.6L CXR (01/16/17) improved RML and bi-basilar infiltrates -Overnight pulse oximetry(01/15-): desaturation 21.7 continuous minutes spent below 89% Physical Exam: Gen.: No apparent distress ENT: Nasal cannula in place Respiratory: Minimal crackles at the bases otherwise clear to auscultation with good air movement CV: S1 and S2 distant heart sounds unable to auscultate for murmurs rubs or gallops Abdomen: Soft, active bowel sounds. Non-tender MSK/Extremities: 2+ pitting edema in the dependent regions Neurologic: Grossly intact/no acute changes Assessment & Plan 71-year-old female with history of COPD/asthma, tracheomalacia/EDAC, cor pulmonale admitted with acute on chronic hypoxic hypercarbic respiratory failure with bilateral infiltrate and pulmonary edema: 1) COPD/Asthma- FEV1: 65%: a. H/O aspiration: Aspiration precautions b. Prednisone wean to 35mg--continue current dosing for the next 24 hours and reevaluate c. Repeat PFTs as outpatient d. Continue Advair and Q6-duo-nebs and discharge on Incruse 2) Bilateral pneumonia: a. Completed course of antibiotic (Ertapenum/Vanco-DC with MRSA screen negative) b. Continue Pulm toilet- flutter valve and IS c. Monitor for aspiration 3) EDAC (Excessive Dynamic Airway Collapse) Suggested on CT a. Airway splinting - recommend sleep on BiPAP as much as the patient can tolerate b. Consideration for PSG with PAP titration for optimal pressures as outpatient as well c. Optimal treatment while awake is CPAP titrated by bronchoscopy. Will set up as an out-patient . 4) Obesity Hypoventilation Syndrome (OHV) a. BiPaP as tolerated with outpatient titration study for optimal setting. b. Nocturnal oximetry: consistent with desaturation show prolonged desaturations for 21min. Patient qualifies for home BiPAP c. At this time will try to increase BiPAP slowly 12/5 as patient becomes adjusted. 5) Pulmonary HTN a. Most likely Group II and Group II b. For more definitive work-up right heart catheritization and Q/V scan but as patient is chronically anti-coagulated and most likely with sever diastolic failure work-up would most likely place the patient at more risk from complications than benefit her over all care. c. Continue to monitor BUN/creatinine is patient is most likely at her dry weight. We'll have to be careful about decreasing her preload at this time. Monitoring I/Os for even balance over the next 24-48 hours will be important. 6) Cardiac: a. P-Afib with tachybrady syndrome i. S/P ablation 2014 ii. Removal of pacer secondary to endocarditis iii. Coumadin INR: iv. Beta-lacho b. ASD: i. s/p repair Data Medications: Current Inpatient Medications Medications (Trade) Dose Ordered Sig/Mehdi Route Start Time Stop Time Status Last Admin Dose Admin Acetaminophen (Tylenol Tab) 650 mg Q4H PRN PO 01/09/17 14:15 02/08/17 14:14 01/11/17 16:18 650 MG Albuterol/ Ipratropium 3 ml 3 ml Q6R INH 01/09/17 15:00 02/08/17 14:59 01/17/17 07:03 3 ML Promethazine HCl/ Sodium Chloride (Phenergan Inj/ Nss 50ml) 50.5 ml @ 204 mls/hr Q6H PRN IV 01/09/17 14:30 02/08/17 14:29 Calcitriol (Rocaltrol Cap) 0.25 mcg MoWeFr@0900 PO 01/11/17 09:00 02/10/17 08:59 01/16/17 10:08 0.25 MCG Donepezil HCl (Aricept Tab) 10 mg HS PO 01/09/17 21:00 02/08/17 20:59 01/16/17 20:49 10 MG Salmeterol Xinafoate/ Fluticasone (Advair Diskus 250/50 Inh) 1 puff BID INH 01/09/17 21:00 02/08/17 20:59 01/17/17 08:02 1 PUFF Fluticasone Propionate (Flonase Nasal [place]) 1 sprays BID PAULIE 01/09/17 21:00 02/08/17 20:59 01/17/17 08:09 1 SPRAYS Gabapentin (Neurontin Cap) 300 mg DAILY@1200 PO 01/10/17 12:00 02/08/17 11:59 01/16/17 17:00 300 MG Gabapentin (Neurontin Tab) 600 mg AMHS PO 01/09/17 21:00 02/08/17 20:59 01/17/17 08:03 600 MG Hydralazine HCl (Apresoline Tab) 10 mg BID PO 01/09/17 21:00 02/08/17 20:59 01/17/17 08:04 10 MG Levothyroxine Sodium (Synthroid Tab) 75 mcg DAILYBB PO 01/10/17 06:00 02/09/17 06:59 01/17/17 05:55 75 MCG Metoprolol Succinate (Toprol Xl Tab) 12.5 mg DAILY PO 01/10/17 09:00 01/17/17 08:03 12.5 MG Montelukast Sodium (Singulair Tab) 10 mg DAILY PO 01/10/17 09:00 02/09/17 08:59 01/17/17 08:03 10 MG Pantoprazole Sodium (Protonix Tab) 40 mg DAILY PO 01/10/17 09:00 02/09/17 08:59 01/17/17 08:04 40 MG Ferrous Sulfate (Feosol Tab) 325 mg BID PO 01/09/17 21:00 02/08/17 20:59 01/17/17 08:03 325 MG Pravastatin Sodium (Pravachol Tab) 80 mg QPM PO 01/09/17 21:00 02/08/17 20:59 01/16/17 20:50 80 MG Insulin Glargine (Lantus Solostar Pen) 5 unit DAILY SC 01/10/17 09:00 02/09/17 08:59 01/17/17 08:09 5 UNIT Warfarin Sodium (Coumadin Tab) 2 mg DAILY@16 PO 01/16/17 16:00 02/15/17 15:59 01/16/17 17:00 2 MG Prednisone (PredniSONE TAB) 35 mg DAILY PO 01/17/17 09:00 02/16/17 08:59 01/17/17 08:03 35 MG I & O: 24-Hour Column 01/17/17 07:59 Intake Total 1110 ml Output Total 2350 ml Balance -1240 ml Vital Signs: Date Time Temp Pulse Resp B/P Pulse Ox O2 Delivery O2 Flow Rate FiO2 01/17/17 07:24 37.1 56 20 164/103 94 Nasal Cannula 2.0 164/78 01/17/17 04:12 36.4 50 20 151/66 94 BiPAP 2.0 01/17/17 04:00 94 BiPAP 01/17/17 02:24 76 93 2.0 01/17/17 02:23 76 18 93 BiPAP/CPAP 2.0 01/17/17 00:01 37.0 48 18 150/70 91 BiPAP 18 01/17/17 00:01 91 BiPAP 01/16/17 23:27 47 93 2.0 01/16/17 20:00 93 Nasal Cannula 2.0 01/16/17 19:57 68 18 95 Nasal Cannula 2.0 01/16/17 19:30 36.6 56 16 135/65 93 Nasal Cannula 2.0 01/16/17 16:00 94 Nasal Cannula 3.5 01/16/17 15:44 36.6 58 22 134/61 90 Nasal Cannula 3.0 01/16/17 14:56 81 18 98 Nasal Cannula 3.0 01/16/17 12:00 96 Nasal Cannula 3.5 01/16/17 11:30 37.1 57 20 147/58 95 Nasal Cannula 3.5 Laboratory Results: Last 24 Hours Test 01/16/17 11:34 01/16/17 16:33 01/16/17 20:21 01/17/17 05:23 Bedside Glucose 158 mg/dl 244 mg/dl 148 mg/dl Prothrombin Time 32.1 SECONDS Prothromb Time International Ratio 2.9 Sodium Level 141 mmol/L Potassium Level 4.5 mmol/L Chloride Level 102 mmol/L Carbon Dioxide Level 32 mmol/L Anion Gap 7.0 mmol/L Blood Urea Nitrogen 63 mg/dl Creatinine 1.30 mg/dl Est Creatinine Clear Calc Drug Dose 31.0 ml/min Estimated GFR () 47.5 Estimated GFR (Non- 41.0 BUN/Creatinine Ratio 48.5 Random Glucose 100 mg/dl Calcium Level 8.3 mg/dl Test 01/17/17 07:05 Bedside Glucose 88 mg/dl
--- NOTE | 2017-01-17 10:28 | Cardiology Follow-Up ---
Subjective General Date of Service: Jan 17, 2017. Chief Complaint: SOB Pt evaluation today including: conversation w/ patient, physical exam, chart review, lab review, review of studies, review of inpatient medication list History of Present Illness The patient is a 71 year old female seen in follow-up. Patient feeling better today. Sinus bradycardia on monitor. No recurrent atrial tachycardia. No chest discomfort or unusual shortness of breath. INR is therapeutic. Creatinine mildly increased. +cough with clear sputum unchanged. No new complaints. Allergies Coded Allergies: Levofloxacin (Verified Allergy, Intermediate, HIVES, 01/09/17) Quinolones (Verified Allergy, Intermediate, HIVES, 01/09/17) Ranitidine (Verified Allergy, Intermediate, HIVES, 01/09/17) Sulfamethoxazole (Verified Allergy, Intermediate, HIVES, 01/09/17) Trimethoprim (Verified Allergy, Intermediate, HIVES, 01/09/17) Clarithromycin (Verified Allergy, Mild, HIVES, CAN TAKE ZITHROMAX W/O PROB , 01/09/17) Amoxicillin (Verified Allergy, Unknown, HIVES, 01/09/17) Omeprazole (Verified Allergy, Unknown, HAS HAD PROTONIX, 01/09/17) Social History Smoking Status: Former Smoker Hx Tobacco Use In Past Year?: No Hx Alcohol Use - Type And Amou: No Hx Substance Use - Type And Am: No Problem List Medical Problems: (1) Acute kidney injury Status: Acute (2) Anemia Status: Chronic (3) Atrial flutter Status: Acute (4) Back pain Status: Acute (5) Bilateral knee pain Status: Acute (6) CHF exacerbation Status: Acute (7) CHF exacerbation Status: Acute (8) Closed head injury Status: Acute (9) Concussion Status: Acute (10) COPD exacerbation Status: Acute (11) Fall Status: Acute (12) Hypoxia Status: Acute (13) Pneumonia involving right lung Status: Acute (14) Subtherapeutic international normalized ratio (INR) Status: Acute Review of Systems Respiratory: + cough, + dyspnea on exertion, + sputum, No dyspnea at rest, No hemoptysis, No shortness of breath, No wheezing Cardiac: No PND, No chest pain, No claudication, No edema, No orthopnea, No palpitations Physical Exam Vital Signs Last Vital Signs Documentation Date Time Temp Pulse Resp B/P Pulse Ox O2 Delivery O2 Flow Rate FiO2 01/17/17 09:29 70 93 01/17/17 08:00 Nasal Cannula 2.0 01/17/17 07:24 37.1 20 164/103 164/78 Physical Exam Constitutional: General Apperance: overweight Level of Distress: acutely ill, chronically ill Psychiatric: Mental Status: lethargic Head: normocephalic Eyes: Pupils: PERRLA Neck: supple Lungs: Auscultation: no wheezing, no rales/crackles, no rhonchi, decreased breath sounds Cardiovascular: Heart Auscultation: RRR, normal S1, normal S2, no murmurs (audible. Distant heart sounds), bradycardia Abdomen: Bowel Sounds: normal Inspection & Palpation: soft, non-distended Extremities: no edema, no clubbing, no ulcers Neurologic: Cranial Nerves: grossly intact Assessment and Plan Assessment and Plan Impression: 1. Acute on chronic respiratory failure which is multifactorial including underlying COPD exacerbation, diastolic heart failure, and cor pulmonale physiology - resolving 2. History of atrial flutter with s/p ablation 2014 - sinus bradycardia on monitor 3. Paroxysmal atrial fibrillation with tachy-james syndrome status post pacemaker explantation due to endocarditis -Sinus bradycardia on telemetry -Tolerating low-dose beta lacho 4. History of atrial septal defect repair later in life 5. Uncontrolled HTN -exacerbated by corticosteroids -hydralazine added Plan: Discontiue IV lasix. Transition to oral bumex. Increase hydralazine to 10mg TID. Continue low-dose beta lacho. No indication for pacemaker at this time. Continue coumadin for goal INR 2.0 - 3.0. Outpatient cardiology follow up in 2-4 weeks. Laboratory Results Last 24 Hours Test 01/16/17 11:34 01/16/17 16:33 01/16/17 20:21 01/17/17 05:23 Bedside Glucose 158 mg/dl 244 mg/dl 148 mg/dl Prothrombin Time 32.1 SECONDS Prothromb Time International Ratio 2.9 Sodium Level 141 mmol/L Potassium Level 4.5 mmol/L Chloride Level 102 mmol/L Carbon Dioxide Level 32 mmol/L Anion Gap 7.0 mmol/L Blood Urea Nitrogen 63 mg/dl Creatinine 1.30 mg/dl Est Creatinine Clear Calc Drug Dose 31.0 ml/min Estimated GFR () 47.5 Estimated GFR (Non- 41.0 BUN/Creatinine Ratio 48.5 Random Glucose 100 mg/dl Calcium Level 8.3 mg/dl Test 01/17/17 07:05 Bedside Glucose 88 mg/dl
[2017-01-17] MEDS: GABAPENTIN 300 MG CAP PO SCH (12:34)
[2017-01-17] MEDS ORDERED: HydrALAZINE 10 MG TAB PO SCH (14:00)
--- NOTE | 2017-01-17 15:27 | Progress Note ---
Internal Med Progress Note Date of Service: Jan 17, 2017. Provider Documentation: SUBJECTIVE: Patient is feeling better. Hard of hearing + Denies any SOB, does have cough, but not producing much sputum No chest pain, fever, chills, nausea, vomiting, abdominal pain. On oxygen 2 L Tele- Bradycardia, Sinus with HR in 50s mostly ,at times drops to 40s OBJECTIVE: Vital Signs-as noted below Exam: General Appearance:Moderately built and nourished, no apparent distress Eyes: No icterus Neck: supple, short neck Respiratory/Chest: Decreased breath sounds Cardiovascular: S1, S2, No murmur Extremities/Musculoskelatal: Trace edema Neurologic/Psych:grossly no focal neurological deficits Lab data as noted below. ASSESSMENT & PLAN: ASSESSMENT & PLAN: ACUTE ON CHRONIC HYPOXIC / HYPERCARBIC RESPIRATORY FAILURE : Resolved Multifactorial: COPD/ Possible Pneumonia RLL/ Acute on chronic CHF (Diastolic), EDAC with chronic issues - Cor pulmonale, Obesity hypoventilation, chronic aspiration, pulmonary hypertension (Probably gr II) . Home oxygen: 2-4 Litres at home, now on 2 L -Patient presented with worsening SOB, productive cough since 1 week: started on doxycycline by PCP on 01/02 -Continue with steroid- taper PO prednisone-- 35 mg and reduce it by 5 mg q 3 days. -IV Lasix discontinued today and change to PO Bumex from tomorrow -IV Ertapenem # days 7 - last day 01/15/17 ; Vancomycin discontinued as MRSA was negative -Work up- CXR: findings suggestive of RLL pneumonia; ABG:consistent with respiratory acidosis and metabolic alkalosis; Blood cx- no growth, sputum- normal kurtis, PCR - negative, Legionella- Pending; Echo- Severe PHT, Mild- Moderate MR, Severe TR, RA/RV - severely dilated; Venous duplex- negative for DVT -Appreciate Pulmonary input. May require: V/Q (rule out CTEPH), right heart catheterization with LEVDP and shunt fraction- however risks >>> benefits. PLAN: Discharge plan discussed with Dr Baldwin. Ideally would benefit from BIPAP, however did not get approved. Will need outpatient repeat PFTs and follow up with Pulmonary. Will continue Incentive spirometry/Flutter valve on discharge. Prednisone taper as above. 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 HR drops to 40s at rest and mostly in 50s. Discussed with cardiology- okay to continue with low dose metoprolol, as does have paroxysmal bouts of atrial tachycardia. -Anti coagulation- INR therapeutic on coumadin - decreased dose to 2 mg as climbing up too quickly and on steroids -Appreciate cardiology inputs MILD ABD PAIN: Resolved Presented with Nausea/Vomiting/Diarrhea prior to admission -Work up- c.diff: Negative; KUB - no obstruction -Continue Protonix THROMBOCYTOPENIA, MILD - Resolving Likely secondary acute illness Improving with no signs of active bleeding -Monitor HTN - controlled -Continue hydralazine and metoprolol . On lasix CKD STAGE IV Baseline cr: mid - high 1's; creatinine 1.30 today -at baseline -Lasix IV held today and changed to PO Bumex from tomorrow -Repeat BMP at next office visit HYPOTHYROIDISM -Continue levothyroxine DVT PROPHYLAXIS -On Coumadin . INR 2.9 today. Follow up with coumadin clinic CODE STATUS Full code. DISPOSITION: Discharge planning: PT/OT- cleared for home with home health. BIPAP was not approved for home OK TO DISCHARGE HOME WITH [facility] TODAY Tried calling daughter x 3 to discuss about discharge plan but unable to contact. Will try to call her again. Vital Signs: Date Time Temp Pulse Resp B/P Pulse Ox O2 Delivery O2 Flow Rate FiO2 01/17/17 14:13 66 18 93 Nasal Cannula 2.0 01/17/17 13:03 Nasal Cannula 2.0 01/17/17 12:00 Nasal Cannula 2.0 01/17/17 11:31 36.9 54 18 123/89 94 2.0 01/17/17 09:29 70 93 01/17/17 08:00 Nasal Cannula 2.0 01/17/17 07:24 37.1 56 20 164/103 94 Nasal Cannula 2.0 164/78 01/17/17 07:03 53 18 93 BiPAP/CPAP 2.0 01/17/17 04:12 36.4 50 20 151/66 94 BiPAP 2.0 01/17/17 04:00 94 BiPAP 01/17/17 02:24 76 93 2.0 01/17/17 02:23 76 18 93 BiPAP/CPAP 2.0 01/17/17 00:01 37.0 48 18 150/70 91 BiPAP 18 01/17/17 00:01 91 BiPAP 01/16/17 23:27 47 93 2.0 01/16/17 20:00 93 Nasal Cannula 2.0 01/16/17 19:57 68 18 95 Nasal Cannula 2.0 01/16/17 19:30 36.6 56 16 135/65 93 Nasal Cannula 2.0 01/16/17 16:00 94 Nasal Cannula 3.5 01/16/17 15:44 36.6 58 22 134/61 90 Nasal Cannula 3.0 Lab Results: Results Past 24 Hours Test 01/16/17 16:33 01/16/17 20:21 01/17/17 05:23 01/17/17 07:05 Range/Units Bedside Glucose 244 148 88 70-90 mg/dl Prothrombin Time 32.1 9.0-12.0 SECONDS Prothromb Time International Ratio 2.9 0.9-1.1 Sodium Level 141 136-145 mmol/L Potassium Level 4.5 3.5-5.1 mmol/L Chloride Level 102 98-107 mmol/L Carbon Dioxide Level 32 21-32 mmol/L Anion Gap 7.0 3-11 mmol/L Blood Urea Nitrogen 63 7-18 mg/dl Creatinine 1.30 0.60-1.20 mg/dl Est Creatinine Clear Calc Drug Dose 31.0 ml/min Estimated GFR () 47.5 Estimated GFR (Non- 41.0 BUN/Creatinine Ratio 48.5 10-20 Random Glucose 100 70-99 mg/dl Calcium Level 8.3 8.5-10.1 mg/dl Test 01/17/17 11:24 Range/Units Bedside Glucose 156 70-90 mg/dl
[2017-01-17] MEDS ORDERED: PRED10TA PO (15:29)
[2017-01-17] MEDS: WARFARIN SOD 2 MG TAB PO SCH (15:29)
[2017-01-17] MEDS ORDERED: CMD2 PO (15:29)
--- NOTE | 2017-01-17 15:34 | Discharge Instructions ---
Discharge Instructions Admission Reason for Admission: Acute On Chronic Respiratory Failure Discharge Discharge Diagnosis / Problem: 1. Acute on chronic hypoxic/hypercapnic respiratory failure 2. Pneumonia Discharge Goals Goal(s): Decrease discomfort, Improve function, Increase independence, Improve disease control, Diagnostic testing, Therapeutic intervention, Prevent Disease Progression Activity Recommendations Activity Limitations: resume your previous activity (as tolerated prior to admission) . Instructions / Follow-Up Instructions / Follow-Up MEDICATION CHANGES: 1. New medication : Prednisone 35 mg daily for 2 days and than reduce it by 5 mg every 3 days 2. Take coumadin 2 mg daily till next INR draw at coumadin clinic 3. To take bumex 1 mg from tomorrow 4. Continue using incentive spirometry and flutter valve as during hospitalization 5. Continue with oxygen at 2-3 L as prior to hospitalization FOLLOW UP : 1. With Dr Jodi South 01/21/17 at 12:50 PM 2. With pulmonary , Dr Baldwin per schedule 3. Follow up with Coumadin clinic Need outpatient PFTs MONITOR 1. BMP to be done next office visit (To check creatinine) while on diuretics Current Hospital Diet Patient's current hospital diet: Low Sodium Diet (2gm Na), AHA Diet (Heart Healthy) Discharge Diet Recommended Diet: AHA Diet (Heart Healthy), Low Sodium Diet (2gm Na) Pending Studies Studies pending at discharge: no Laboratory Results Hemoglobin A1c Test 01/10/17 00:17 Range/Units Estimated Average Glucose 117 mg/dl Hemoglobin A1c 5.7 H 4.5-5.6 % Medical Emergencies . Who to Call and When: Medical Emergencies: If at any time you feel your situation is an emergency, please call 911 immediately. . Non-Emergent Contact Non-Emergency issues call your: Primary Care Provider Call Non-Emergent contact if: temperature is above 101.5 . . "Provider Documentation" section prepared by Emy Delacruz. VTE Core Measure Inpt VTE Proph given/why not?: Warfarin (Coumadin)
--- NOTE | 2017-01-17 15:40 | Discharge Summary ---
Discharge Summary Date of Service Jan 17, 2017. Discharge Summary Admission Date: Jan 09, 2017 at 14:13 Discharge Date: Jan 17, 2017 Discharge Disposition: Home with services Principal Diagnosis: 1. Acute on chronic hypoxic/Hypercarbic respiratory failure 2. Pneumonia, Bilateral 3. Atrial fibrillation S/P Ablation with episodes of bradycardia 4. EDAC (Excessive Dynamic Airway Collapse) 5. Pulmonary Hypertension 6. Obesity hypoventilation syndrome 7. Chronic hypoxic respiratory failure on home oxygen 8. Mild thrombocytopenia Secondary Diagnoses/Problems: 1. Hypertension 2. CKD-IV 3. Hypothyroidism Procedures: Tele monitoring CXR X 3 KUB Venous duplex Steroids Duonebs BIPAP IV antibiotics IV diuretics Consultations: Pulmonary Cardiology Pending Studies/Follow-Up: Instructions / Follow-Up MEDICATION CHANGES: 1. New medication : Prednisone 35 mg daily for 2 days and than reduce it by 5 mg every 3 days 2. Take coumadin 2 mg daily till next INR draw at coumadin clinic 3. To take bumex 1 mg from tomorrow 4. Continue using incentive spirometry and flutter valve as during hospitalization 5. Continue with oxygen at 2-3 L as prior to hospitalization FOLLOW UP : 1. With Dr Jodi South 01/21/17 at 12:50 PM 2. With pulmonary , Dr Baldwin per schedule 3. Follow up with Coumadin clinic Need outpatient PFTs MONITOR 1. BMP to be done next office visit (To check creatinine) while on diuretics Medication Reconciliation New Medications: Prednisone Tab (Prednisone) 10 Mg Tab 10 MG PO UD, #50 TAB Warfarin Sod (Coumadin) 2 Mg Tab 2 MG PO DAILY@16 for 30 Days, TAB Continued Medications: Albuterol Sulf (Proventil 0.083% 2.5MG/3ML) 2.5 Mg/3 Ml Nebu 2.5 MG INH Q4H PRN for SOB/Wheezing, EA Albuterol Sulfate (Proair Respiclick) 108 Mcg/Act Aer 2 PUFFS INH QID PRN for Shortness of Breath Bumetanide (Bumetanide) 1 Mg Tab 1 MG PO DAILY for 30 Days, #30 TABS Calcitriol (Calcitriol) 0.25 Mcg Cap 1 CAP PO MWF, #13 Donepezil Hydrochloride (Aricept) 10 Mg Tab 10 MG PO HS Ferrous Sulfate (Iron) 325 Mg Tab 1 TAB PO BID Fluticasone Prop/Salmeterol (Advair Diskus 250/50 60 Dose) 1 Ea Aerp 1 PUFF INH BID, INHALER Fluticasone Propionate (Nasal) (Flonase Allergy Relief) 50 Mcg/Act Spr 1 SPRAY PAULIE BID Gabapentin (Neurontin) 300 Mg Cap 300 MG PO DAILY, CAP lunch time Gabapentin (Neurontin) 300 Mg Cap 600 MG PO AMHS, CAP Hydralazine HCl (Hydralazine HCl) 10 Mg Tab 10 MG PO BID, #60 Levothyroxine Sodium (Levothyroxine Sodium) 75 Mcg Tab 75 MCG PO DAILY, #30 Metoprolol Succinate (Metoprolol Succinate ER) 25 Mg Tabcr 12.5 MG PO DAILY, #15 Montelukast Sodium (Singulair) 10 Mg Tab 1 TAB PO DAILY for 90 Days, #90 TAB 1 Refill Nitroglycerin (Nitrostat) 0.4 Mg Tab 0.4 MG SL PRN UD, #25 Oxybutynin Chloride (Oxybutynin Chloride Er) 5 Mg Tab 5 MG PO DAILY, #30 Oxygen (Oxygen) Gas 2-3 LITERS NA CONTINOUS Pantoprazole (Protonix) 40 Mg Tab 40 MG PO DAILY, #30 TAB Pravastatin Sodium (Pravastatin Sodium) 80 Mg Tab 80 MG PO QPM Senna (Senna Lax) 8.6 Mg Tab 8.6 MG PO QAM for 30 Days, #30 TAB Umeclidinium [place] (Incruse Ellipta) 62.5 Mcg/Inh Inh 1 INHA INH DAILY Discontinued Medications: Doxycycline Hyclate (Doxycycline Hyclate) 100 Mg Cap 100 MG PO BID started on 01/02 - ordered for 10 days Warfarin Sod (Jantoven) 2.5 Mg Tab 2.5 MG PO UD, TAB saturday, saturday, saturday, saturday Warfarin Sod (Jantoven) 5 Mg Tab 5 MG PO UD, TAB saturday, saturday, Admission Information HPI (per Admitting provider): 71 year old female who presents to the ER with cough and shortness of breath. Patient was seen by her PCP on 01/02 for cough and was given doxycycline for treatment of bronchitis. Patient was somewhat lethargic during my exam however did eventually arouse. Some history is obtained from her daughter. Patient reports increasing shortness of breath and cough for the past one week. She chronically wears 2-4 liters of oxygen at home. Cough has been productive for brown/bright red sputum at times. She reports a few episodes of the bright red blood. She had a few episodes of post tussive emesis. She describes the emesis as mucous. She also has had some diarrhea and lower abdominal pain which has resolved. She denies BRBPR or dark tarry stools. No fever or chills She denies chest pain. No lightheadedness, dizziness, diaphoresis, or syncopal events. She has chronic lower extremity edema which is worse than her baseline. Daughter reports she is intermittently lethargic at home. Upon arrival to the ER, patient was 83% on 3L. This improved with 5L oxygen via NC however patient eventually required simple face mask as she was sleeping and breathing through her mouth. CXR is showing RLL pneumonia. Patient was given IV Lasix, Solu-medrol , and duoneb. BP is stable, she is afebrile, and labs are unremarkable. Physical Exam (per Admitting): General Appearance: + pertinent finding (initially lethargic however improved throughout exam) Head: normocephalic Eyes: normal inspection ENT: hearing grossly normal Neck: supple, no JVD Respiratory/Chest: + decreased breath sounds, + crackles (BL bases), + rhonchi (scattered), + wheezing (scattered, expiratory) Cardiovascular: regular rate, rhythm, + pertinent finding (+1 edema BLLE) Abdomen/GI: normal bowel sounds, non tender, soft Extremities/Musculoskelatal: normal inspection, no calf tenderness Neurologic/Psych: no motor/sensory deficits, oriented x 3, + pertinent finding (initially lethargic however mental status improved through out exam) Skin: normal color, warm/dry Hospital Course ASSESSMENT & PLAN: ACUTE ON CHRONIC HYPOXIC / HYPERCARBIC RESPIRATORY FAILURE : Resolved Multifactorial: COPD/ Possible Pneumonia RLL/ Acute on chronic CHF (Diastolic), EDAC with chronic issues - Cor pulmonale, Obesity hypoventilation, chronic aspiration, pulmonary hypertension (Probably gr II) . Home oxygen: 2-4 Litres at home, now on 2 L -Patient presented with worsening SOB, productive cough since 1 week: started on doxycycline by PCP on 01/02 -Continue with steroid- taper PO prednisone-- 35 mg and reduce it by 5 mg q 3 days. -IV Lasix discontinued today and change to PO Bumex from tomorrow -IV Ertapenem # days 7 - last day 01/15/17 ; Vancomycin discontinued as MRSA was negative -Work up- CXR: findings suggestive of RLL pneumonia; ABG:consistent with respiratory acidosis and metabolic alkalosis; Blood cx- no growth, sputum- normal kurtis, PCR - negative, Legionella- Pending; Echo- Severe PHT, Mild- Moderate MR, Severe TR, RA/RV - severely dilated; Venous duplex- negative for DVT -Appreciate Pulmonary input. May require: V/Q (rule out CTEPH), right heart catheterization with LEVDP and shunt fraction- however risks >>> benefits. PLAN: Discharge plan discussed with Dr Baldwin. Ideally would benefit from BIPAP, however did not get approved. Will need outpatient repeat PFTs and follow up with Pulmonary. Will continue Incentive spirometry/Flutter valve on discharge. Prednisone taper as above. 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 HR drops to 40s at rest and mostly in 50s. Discussed with cardiology- okay to continue with low dose metoprolol, as does have paroxysmal bouts of atrial tachycardia. -Anti coagulation- INR therapeutic on coumadin - decreased dose to 2 mg as climbing up too quickly and on steroids -Appreciate cardiology inputs MILD ABD PAIN: Resolved Presented with Nausea/Vomiting/Diarrhea prior to admission -Work up- c.diff: Negative; KUB - no obstruction -Continue Protonix THROMBOCYTOPENIA, MILD - Resolving Likely secondary acute illness Improving with no signs of active bleeding -Monitor HTN - controlled -Continue hydralazine and metoprolol . On lasix CKD STAGE IV Baseline cr: mid - high 1's; creatinine 1.30 today -at baseline -Lasix IV held today and changed to PO Bumex from tomorrow -Repeat BMP at next office visit HYPOTHYROIDISM -Continue levothyroxine DVT PROPHYLAXIS -On Coumadin . INR 2.9 today. Follow up with coumadin clinic CODE STATUS Full code. DISPOSITION: Discharge planning: PT/OT- cleared for home with home health. BIPAP was not approved for home OK TO DISCHARGE HOME WITH [facility] TODAY Tried calling daughter x 3 to discuss about discharge plan but unable to contact. Will try to call her again. Total time spent on discharge = 45 minutes This includes examination of the patient, discharge planning, medication reconciliation, and communication with other providers. Discharge Instructions Activity Recommendations Activity Limitations: resume your previous activity (as tolerated prior to admission) . Instructions / Follow-Up Instructions / Follow-Up MEDICATION CHANGES: 1. New medication : Prednisone 35 mg daily for 2 days and than reduce it by 5 mg every 3 days 2. Take coumadin 2 mg daily till next INR draw at coumadin clinic 3. Continue with oxygen at 2-3 L as prior to hospitalization FOLLOW UP : 1. With Dr Jodi South 01/21/17 at 12:50 PM 2. With pulmonary , Dr Baldwin per schedule 3. Follow up with Coumadin clinic Need outpatient PFTs MONITOR 1. BMP to be done next office visit (To check creatinine) while on diuretics Current Hospital Diet Patient's current hospital diet: Low Sodium Diet (2gm Na), AHA Diet (Heart Healthy) Discharge Diet Recommended Diet: AHA Diet (Heart Healthy), Low Sodium Diet (2gm Na) Pending Studies Studies pending at discharge: no Laboratory Results Hemoglobin A1c Test 01/10/17 00:17 Range/Units Estimated Average Glucose 117 mg/dl Hemoglobin A1c 5.7 H 4.5-5.6 % Medical Emergencies . Who to Call and When: Medical Emergencies: If at any time you feel your situation is an emergency, please call 911 immediately. . Non-Emergent Contact Non-Emergency issues call your: Primary Care Provider Call Non-Emergent contact if: temperature is above 101.5 . . "Provider Documentation" section prepared by Emy Delacruz. VTE Core Measure Inpt VTE Proph given/why not?: Warfarin (Coumadin)
[2017-01-18] MEDS ORDERED: BUMETANIDE 1 MG TAB PO SCH (09:00)
[2017-01-28] MEDS ORDERED: GUAI1TAB68 PO (11:40)
[2017-01-28] MEDS ORDERED: PRD5 PO (11:40)
[2017-06-11] MEDS ORDERED: CEFU500T16 PO (12:17)
[2017-06-11] MEDS ORDERED: DXY100 PO (12:17)
[2017-08-11] MEDS ORDERED: DONE10TA12 PO (05:56)
[2017-08-11] MEDS ORDERED: GABA-113 PO ×2 (08:30)
[2017-08-11] MEDS ORDERED: UMEC1INH PO (12:20)
[2017-08-11] MEDS ORDERED: CLR10 PO (12:20)
[2017-08-11] MEDS ORDERED: BRIN1SUS OPB (12:23)
[2017-08-11] MEDS ORDERED: ALBINS/ INH (12:57)
[2017-08-11] MEDS ORDERED: ALBU18002 INH (12:57)
[2017-08-11] MEDS ORDERED: PRAV80TA2 PO (13:37)
[2017-08-11] MEDS ORDERED: OXYB5TAB PO (13:37)
[2017-08-11] MEDS ORDERED: CALC1CAP36 PO (13:38)
[2017-08-11] MEDS ORDERED: ADVIN25/60 INH (13:41)
[2017-08-11] MEDS ORDERED: TPRSR/25 PO (13:57)
[2017-08-11] MEDS ORDERED: LEVO75TA5 PO (14:15)
[2017-08-11] MEDS ORDERED: HYDR-4322 PO (14:15)
[2017-08-11] MEDS ORDERED: FERR1TAB23 PO (14:15)
== END 2017-01-17 17:36 | disposition home health service (06) | DRG 177 ==
LOC: ENRESERVDT → ENRESERVTM → EDBD 11:02 → C.EDC 11:03 → C.2E 14:13 → UNDOADMIN 14:13
PROVIDERS: ADMIT Internal Medicine; ATTEND Internal Medicine
DX: J15.6 Pneumonia due to other Gram-negative bacteria (principal); I50.43 Acute on chronic combined systolic (congestive) and diastolic (congestive) heart failure; J96.21 Acute and chronic respiratory failure with hypoxia; J96.22 Acute and chronic respiratory failure with hypercapnia; I13.0 Hypertensive heart and chronic kidney disease with heart failure and stage 1 through stage 4 chronic kidney disease, or unspecified chronic kidney disease; J44.1 Chronic obstructive pulmonary disease with (acute) exacerbation; N18.4 Chronic kidney disease, stage 4 (severe); R04.2 Hemoptysis; E66.2 Morbid (severe) obesity with alveolar hypoventilation; E87.4 Mixed disorder of acid-base balance; I47.2 Ventricular tachycardia; J98.19 Other pulmonary collapse; G47.33 Obstructive sleep apnea (adult) (pediatric); I27.81 Cor pulmonale (chronic); J39.8 Other specified diseases of upper respiratory tract; D69.6 Thrombocytopenia, unspecified; I49.5 Sick sinus syndrome; I48.0 Paroxysmal atrial fibrillation; E78.5 Hyperlipidemia, unspecified; I27.2 Other secondary pulmonary hypertension; K21.9 Gastro-esophageal reflux disease without esophagitis; E03.9 Hypothyroidism, unspecified; I48.91 Unspecified atrial fibrillation; Z95.0 Presence of cardiac pacemaker; Z99.81 Dependence on supplemental oxygen; Z79.899 Other long term (current) drug therapy; Z79.01 Long term (current) use of anticoagulants; Z87.891 Personal history of nicotine dependence; Z90.5 Acquired absence of kidney

== ENCOUNTER 2017-01-24 02:44 | Emergency (ER) | payer OTHER ==
[~2017-01-24] VITALS: Ht 149.9 cm; Wt 69.3 kg
[~2017-01-24 02:44] MED LIST changes: -ACET325T82 PO; -ALBU0.08 INH; -ALBU1AER9 INH; -ALPHTAB4 PO; -BRIN1SUS OP; +CMD2 PO; -DRGTP12 TD; +PANT1TAB48 PO; +PRED10TA PO; -SPRIN INH; -WARF2.5T8 PO
[2017-01-24 04:40] LABS: INR 2.2 (0.9-1.1); PARTIAL THROMBOPLASTIN RATIO 1.2; PROTHROMBIN TIME (PATIENT) 24.5 SECONDS (9.0-12.0)
[2017-01-24 04:44] LABS: BLOOD UREA NITROGEN 51 mg/dl (7-18); BUN/CREATININE RATIO 42.2 (10-20); GLUCOSE 75 mg/dl (70-99)
[2017-01-24 04:45] LABS: CALCIUM 8.2 mg/dl (8.5-10.1); CARBON DIOXIDE 36 mmol/L (21-32); CHLORIDE 104 mmol/L (98-107); POTASSIUM 5.3 mmol/L (3.5-5.1); SODIUM 145 mmol/L (136-145)
[2017-01-24 04:47] LABS: CKMB/CK RATIO 0.1 (0-3.0)
[2017-01-24 05:02] VITALS: Ht 149.9 cm; Wt 69.3 kg
[2017-01-24 05:45] VITALS: BP 168/66; PULSE 48; O2SAT 96
[2017-01-24 06:42] LABS: BASO % 0.3 %; BASO ABS # 0.02 K/uL (0-0.2); COMPLETE YES; HEMATOCRIT 31.8 % (37-47); IG% 0.3 %; LYMPH % 17.6 %; LYMPH ABS # 1.15 K/uL (1.2-3.4); MEAN CELL VOLUME 93.5 fL (80-100); MEAN CORPUSCULAR HEMOGLOBIN 30.3 pg (25-34); MEAN CORPUSCULAR HGB CONC 32.4 g/dl (32-36); MEAN PLATELET VOLUME 12.7 fL (7.4-10.4); MONO % 9.9 %; NEUT % 71.9 %; PLATELET COUNT 190 K/uL (130-400); WHITE BLOOD COUNT 6.54 K/uL (4.8-10.8)
--- NOTE | 2017-01-24 06:47 | EMERGENCY ROOM VISIT NOTE ---
History Report prepared by Kaitlynn: Kyle Lau Under the Supervision of: Dr. Amirah Singh D.O. First contact with patient: 04:52 Chief Complaint: ABNORMAL LABS Stated Complaint: ABD LABS History of Present Illness The patient is a 71 year old female who presents to the Emergency Room with complaints of high calcium and INR levels after she got blood-work done yesterday. The patient was told to present to the ED for further evaluation after getting her test results. Per patients family, the patients lower legs are more swollen than usual. The patient is on Coumadin for a clot. She was recently discharged from the hospital a week ago for pneumonia. The patient denies any other medical complaints at this time. Source of History: patient Onset: yesterday Position: other (global) Note: Other associated symptoms: more swelling in legs Denies: any other medical complaints at this time Review of Systems See HPI for pertinent positives & negatives. A total of 10 systems reviewed and were otherwise negative. 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 Surgical Problems: (1) H/O thyroidectomy (2) History of appendectomy (3) S/P MVR (mitral valve repair) Family History Heart disease Hypertension Lung disease Social History Smoking Status: Unknown if Ever Smoked Alcohol Use: none Drug Use: none Marital Status: Housing Status: half-way Occupation Status: retired Current/Historical Medications Scheduled Bumetanide (Bumetanide), 1 MG PO DAILY Calcitriol (Calcitriol), 1 CAP PO MWF Donepezil Hydrochloride (Aricept), 10 MG PO HS Ferrous Sulfate (Iron), 1 TAB PO BID Fluticasone Prop/Salmeterol (Advair Diskus 250/50 60 Dose), 1 PUFF INH BID Fluticasone Propionate (Nasal) (Flonase Allergy Relief), 1 SPRAY PAULIE BID Gabapentin (Neurontin), 300 MG PO DAILY Gabapentin (Neurontin), 600 MG PO AMHS Hydralazine HCl (Hydralazine HCl), 10 MG PO BID Levothyroxine Sodium (Levothyroxine Sodium), 75 MCG PO DAILY Metoprolol Succinate (Metoprolol Succinate ER), 12.5 MG PO DAILY Montelukast Sodium (Singulair), 1 TAB PO DAILY Nitroglycerin (Nitrostat), 0.4 MG SL PRN UD Oxybutynin Chloride (Oxybutynin Chloride Er), 5 MG PO DAILY Oxygen (Oxygen), 2-3 LITERS NA CONTINOUS Pantoprazole (Protonix), 40 MG PO DAILY Pravastatin Sodium (Pravastatin Sodium), 80 MG PO QPM Prednisone Tab (Prednisone), 10 MG PO UD Senna (Senna Lax), 8.6 MG PO QAM Umeclidinium [place] (Incruse Ellipta), 1 INHA INH DAILY Warfarin Sod (Coumadin), 2 MG PO DAILY@16 Scheduled PRN Albuterol Sulf (Proventil 0.083% 2.5MG/3ML), 2.5 MG INH Q4H PRN for SOB/Wheezing Albuterol Sulfate (Proair Respiclick), 2 PUFFS INH QID PRN for Shortness of Breath Allergies Coded Allergies: Levofloxacin (Verified Allergy, Intermediate, HIVES, 01/24/17) Quinolones (Verified Allergy, Intermediate, HIVES, 01/24/17) Ranitidine (Verified Allergy, Intermediate, HIVES, 01/24/17) Sulfamethoxazole (Verified Allergy, Intermediate, HIVES, 01/24/17) Trimethoprim (Verified Allergy, Intermediate, HIVES, 01/24/17) Clarithromycin (Verified Allergy, Mild, HIVES, CAN TAKE ZITHROMAX W/O PROB , 01/24/17) Amoxicillin (Verified Allergy, Unknown, HIVES, 01/24/17) Omeprazole (Verified Allergy, Unknown, HAS HAD PROTONIX, 01/24/17) Physical Exam Vital Signs Date Time Temp Pulse Resp B/P Pulse Ox O2 Delivery O2 Flow Rate FiO2 01/24/17 05:45 48 18 168/66 96 Nasal Cannula 3.0 01/24/17 05:01 175/78 01/24/17 04:59 47 15 90 01/24/17 04:54 45 17 96 01/24/17 04:49 47 12 92 01/24/17 04:44 43 15 97 01/24/17 04:39 47 17 94 01/24/17 04:31 161/73 Pain Rating (0-10): 0 Physical Exam HEENT: Head - normocephalic and atraumatic Pupils are equal, round, and reactive to light. Extraocular eye muscles are intact, and sclera are anicteric. Nose - moist nasal mucosa without discharge. Mouth - moist buccal mucosa. Oropharynx is nonerythematous and there is no tonsillar exudate or edema noted. Neck: Supple; no JVD, nuchal rigidity, cervical lymphadenopathy. Heart: Regular rate and rhythm. There is a normal S1 and S2 with no murmurs, clicks, or gallops appreciated. Lungs: Clear to auscultation bilaterally with no wheezes, rales, or rhonchi. Abdomen: Soft, completely nontender, nondistended, with good bowel sounds. There are no palpable pulsatile masses or hepatosplenomegaly. There is no guarding, rigidity, or rebound noted. Extremities: No evidence of cyanosis, or clubbing. There are easily palpable peripheral pulses. 3+ pitted edema bilateral legs. Skin: warm and dry with good turgor and no rashes. Medical Decision & Procedures Laboratory Results 01/24/17 03:28 Red Blood Count 3.40, Mean Corpuscular Volume 93.5, Mean Corpuscular Hemoglobin 30.3, Mean Corpuscular Hemoglobin Concent 32.4, Mean Platelet Volume 12.7, Neutrophils (%) (Auto) 71.9, Lymphocytes (%) (Auto) 17.6, Monocytes (%) (Auto) 9.9, Eosinophils (%) (Auto) 0.0, Basophils (%) (Auto) 0.3, Neutrophils # (Auto) 4.70, Lymphocytes # (Auto) 1.15, Monocytes # (Auto) 0.65, Eosinophils # (Auto) 0.00, Basophils # (Auto) 0.02 01/24/17 03:28 Test 01/24/17 03:28 White Blood Count 6.54 K/uL (4.8-10.8) Red Blood Count 3.40 M/uL (4.2-5.4) Hemoglobin 10.3 g/dL (12.0-16.0) Hematocrit 31.8 % (37-47) Mean Corpuscular Volume 93.5 fL (80-100) Mean Corpuscular Hemoglobin 30.3 pg (25-34) Mean Corpuscular Hemoglobin Concent 32.4 g/dl (32-36) Platelet Count 190 K/uL (130-400) Mean Platelet Volume 12.7 fL (7.4-10.4) Neutrophils (%) (Auto) 71.9 % Lymphocytes (%) (Auto) 17.6 % Monocytes (%) (Auto) 9.9 % Eosinophils (%) (Auto) 0.0 % Basophils (%) (Auto) 0.3 % Neutrophils # (Auto) 4.70 K/uL (1.4-6.5) Lymphocytes # (Auto) 1.15 K/uL (1.2-3.4) Monocytes # (Auto) 0.65 K/uL (0.11-0.59) Eosinophils # (Auto) 0.00 K/uL (0-0.5) Basophils # (Auto) 0.02 K/uL (0-0.2) RDW Standard Deviation 57.3 fL (36.4-46.3) RDW Coefficient of Variation 16.9 % (11.5-14.5) Immature Granulocyte % (Auto) 0.3 % Immature Granulocyte # (Auto) 0.02 K/uL (0.00-0.02) Nucleated RBC Absolute Count (auto) 0.00 K/uL (0-0) Nucleated Red Blood Cells % 0.0 % Prothrombin Time 24.5 SECONDS (9.0-12.0) Prothromb Time International Ratio 2.2 (0.9-1.1) Activated Partial Thromboplast Time 30.9 SECONDS (21.0-31.0) Partial Thromboplastin Ratio 1.2 Anion Gap 5.0 mmol/L (3-11) Estimated GFR () 52.3 Estimated GFR (Non- 45.1 BUN/Creatinine Ratio 42.2 (10-20) Calcium Level 8.2 mg/dl (8.5-10.1) Total Creatine Kinase 32 U/L (26-192) Creatine Kinase MB 1.9 ng/ml (0.5-3.6) Creatine Kinase MB Ratio 0.1 (0-3.0) Pro-B-Type Natriuretic Peptide 84495 pg/ml (0-900) ECG Indication: other Rate (beats per minute): 51 Rhythm: sinus bradycardia Findings: PAC, RBBB ED Course 0313: Past medical records reviewed. The patient was evaluated in room A12. A complete history and physical exam was performed. A twelve-lead EKG was obtained as described above. 0415: At this time, records from the patient's office visit from yesterday were reviewed. The labs showed hyperkalemia, not hypercalcemia. 0430: At this time, I reevaluated the patient and she was sleeping. 0446: Upon reevaluation, the patient is resting comfortably. I discussed findings and results with her. She verbalized agreement of the treatment plan. The patient was discharged home. Medical Decision The patient is a 71 year old female who presents to the ED with complaints of high calcium and INR levels. Differential diagnoses include: Supratherapeutic INR, hypercalcemia, CHF, anemia , lab error Labs reviewed by me: INR 2.2 normal WBCs hemoglobin 10.3 potassium 5.3 calcium 8.2 BUN 51 creatinine 1.2 BNP 10,121. The patient had a recent admission to the hospital for pneumonia. She had a follow up exam with her PCP yesterday. Routine laboratory studies were drawn and revealed an elevated INR and elevated potassium. She was told to come to the emergency department immediately because of the potassium level. Labs were redrawn here and seemed closer to normal. I remain concerned about the patient' s elevated BNP. She explains that she was instructed to double her dose of Lasix when she came home I believe the patient should continue this until she follows up on Saturday with the [facility]. She was told to return here to the ER if the symptoms worsened.. Impression Primary Impression: Hyperkalemia Additional Impression: Lower extremity edema Scribe Attestation The scribe's documentation has been prepared under my direction and personally reviewed by me in its entirety. I confirm that the note above accurately reflects all work, treatment, procedures, and medical decision making performed by me. Departure Information Dispostion Home / Self-Care Forms WORK / SCHOOL INSTRUCTIONS, HOME CARE DOCUMENTATION FORM, IMPORTANT VISIT INFORMATION Patient Instructions Hyperkalemia Sharri Ramos [facility] Additional Instructions Rest. Take two doses of diuretic today and tomorrow. Do not take supplemental potassium today Follow up at the [facility] clinic on Saturday for a recheck. Watch your weight closely. Problem Qualifiers
[2017-01-25] MEDS ORDERED: PRED10TA PO (17:48)
[2017-01-28] MEDS ORDERED: GUAI1TAB68 PO (11:40)
[2017-01-28] MEDS ORDERED: PRD5 PO (11:40)
[2017-06-11] MEDS ORDERED: DXY100 PO (12:17)
[2017-06-11] MEDS ORDERED: CEFU500T16 PO (12:17)
[2017-08-11] MEDS ORDERED: DONE10TA12 PO (05:56)
[2017-08-11] MEDS ORDERED: GABA-113 PO ×2 (08:30)
[2017-08-11] MEDS ORDERED: CLR10 PO (12:20)
[2017-08-11] MEDS ORDERED: UMEC1INH PO (12:20)
[2017-08-11] MEDS ORDERED: BRIN1SUS OPB (12:23)
[2017-08-11] MEDS ORDERED: ALBU18002 INH (12:57)
[2017-08-11] MEDS ORDERED: ALBINS/ INH (12:57)
[2017-08-11] MEDS ORDERED: OXYB5TAB PO (13:37)
[2017-08-11] MEDS ORDERED: PRAV80TA2 PO (13:37)
[2017-08-11] MEDS ORDERED: CALC1CAP36 PO (13:38)
[2017-08-11] MEDS ORDERED: ADVIN25/60 INH (13:41)
[2017-08-11] MEDS ORDERED: TPRSR/25 PO (13:57)
[2017-08-11] MEDS ORDERED: LEVO75TA5 PO (14:15)
[2017-08-11] MEDS ORDERED: HYDR-4322 PO (14:15)
[2017-08-11] MEDS ORDERED: FERR1TAB23 PO (14:15)
== END 2017-01-24 05:57 | disposition home or self-care (01) ==
LOC: C.ED 02:44 → C.EDA 05:57
DX: R79.89 Other specified abnormal findings of blood chemistry (principal); M79.89 Other specified soft tissue disorders; I12.9 Hypertensive chronic kidney disease with stage 1 through stage 4 chronic kidney disease, or unspecified chronic kidney disease; N18.4 Chronic kidney disease, stage 4 (severe); I48.91 Unspecified atrial fibrillation; J44.9 Chronic obstructive pulmonary disease, unspecified; E03.9 Hypothyroidism, unspecified; E87.5 Hyperkalemia; Z79.01 Long term (current) use of anticoagulants; Z79.899 Other long term (current) drug therapy

== ENCOUNTER 2017-01-25 12:14 | Inpatient (IN) | payer OTHER ==
[~2017-01-25] VITALS: Ht 157.5 cm; Wt 67.2 kg
--- NOTE | 2017-01-25 15:05 | EMERGENCY ROOM VISIT NOTE ---
History Report prepared by Kaitlynn: Claudy Grimaldo Under the Supervision of: Dr. Bright Maurer M.D. First contact with patient: 14:55 Chief Complaint: LETHARGIC Stated Complaint: LETHARGIC Nursing Triage Summary: Pt was brought in via ambulance ALS. Pt lives at home and had home health today. Home health called 911. Nursing told EMS on arrival that the pt is very lethargic and irritated today. This is not the pts baseline. Pt lives on 3lpm of oxygen. Nursing told EMS that the pts heart rate has also been down in the 50's and this is not her normal. Pt has a history of AFib. History of Present Illness The patient is a 71 year old female who presents to the Emergency Room via ALS with complaints of persistent weakness that started [employer]. The patient lives at home with a home health care provider. Per the patient's daughter, the patient' s home health nurse called 911 today after noticing weakness, shortness of breath, increased irritation, and a low heart rate upon exam today. She also notes that the patient was asking to see her son, who is . The patient complains of lethargy, a dry cough, increased appetite, and swelling in her legs at this time. Source of History: patient, family, nursing staff Onset: [employer] Position: other (Global ) Timing: other (Persistent ) Modifying Factors (Worsening): other (None) Associated Symptoms: + SOB, + cough Note: Associated symptoms include lethargy, increased appetite, swelling in legs Review of Systems See HPI for pertinent positives & negatives. A total of 10 systems reviewed and were otherwise negative. 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 Nurse's notes were reviewed and I agree with. Family History Heart disease Hypertension Lung disease Social History Smoking Status: Unknown if Ever Smoked Alcohol Use: none Drug Use: none Marital Status: Housing Status: other (Lives at home with home health care) Occupation Status: retired Current/Historical Medications Scheduled Bumetanide (Bumetanide), 1 MG PO DAILY Calcitriol (Calcitriol), 1 CAP PO MWF Donepezil Hydrochloride (Aricept), 10 MG PO HS Ferrous Sulfate (Iron), 1 TAB PO BID Fluticasone Prop/Salmeterol (Advair Diskus 250/50 60 Dose), 1 PUFF INH BID Fluticasone Propionate (Nasal) (Flonase Allergy Relief), 1 SPRAY PAULIE BID Gabapentin (Neurontin), 300 MG PO DAILY Gabapentin (Neurontin), 600 MG PO AMHS Hydralazine HCl (Hydralazine HCl), 10 MG PO BID Levothyroxine Sodium (Levothyroxine Sodium), 75 MCG PO DAILY Metoprolol Succinate (Metoprolol Succinate ER), 12.5 MG PO DAILY Montelukast Sodium (Singulair), 1 TAB PO DAILY Nitroglycerin (Nitrostat), 0.4 MG SL PRN UD Oxybutynin Chloride (Oxybutynin Chloride Er), 5 MG PO DAILY Oxygen (Oxygen), 2-3 LITERS NA CONTINOUS Pantoprazole (Protonix), 40 MG PO DAILY Pravastatin Sodium (Pravastatin Sodium), 80 MG PO QPM Prednisone Tab (Prednisone), 10 MG PO UD Senna (Senna Lax), 8.6 MG PO QAM Umeclidinium [place] (Incruse Ellipta), 1 INHA INH DAILY Warfarin Sod (Coumadin), 2 MG PO DAILY@16 Scheduled PRN Albuterol Sulf (Proventil 0.083% 2.5MG/3ML), 2.5 MG INH Q4H PRN for SOB/Wheezing Albuterol Sulfate (Proair Respiclick), 2 PUFFS INH QID PRN for Shortness of Breath Allergies Coded Allergies: Levofloxacin (Verified Allergy, Intermediate, HIVES, 01/25/17) Quinolones (Verified Allergy, Intermediate, HIVES, 01/25/17) Ranitidine (Verified Allergy, Intermediate, HIVES, 01/25/17) Sulfamethoxazole (Verified Allergy, Intermediate, HIVES, 01/25/17) Trimethoprim (Verified Allergy, Intermediate, HIVES, 01/25/17) Clarithromycin (Verified Allergy, Mild, HIVES, CAN TAKE ZITHROMAX W/O PROB , 01/25/17) Amoxicillin (Verified Allergy, Unknown, HIVES, 01/25/17) Omeprazole (Verified Allergy, Unknown, HAS HAD PROTONIX, 01/25/17) Physical Exam Vital Signs Date Time Temp Pulse Resp B/P Pulse Ox O2 Delivery O2 Flow Rate FiO2 01/25/17 19:08 36.7 64 16 179/99 96 Nasal Cannula 3.0 01/25/17 19:02 36.7 64 16 179/99 95 Nasal Cannula 3.0 01/25/17 17:46 61 18 173/78 97 Nasal Cannula 3.0 01/25/17 16:54 49 01/25/17 16:05 63 16 148/103 97 Room Air 01/25/17 15:18 52 20 151/65 96 Nasal Cannula 3.0 01/25/17 15:06 95 Room Air 01/25/17 12:29 57 01/25/17 12:23 36.4 58 20 154/63 95 Nasal Cannula 3.0 Physical Exam General: Chronically ill appearing older female, seems comfortable on supplemental oxygen. HEENT: Normal cephalic atraumatic. Pupils are equal round and reactive to light. Sclerae anicteric. Extraocular movements are intact. Oropharynx is pink with moist mucous membranes. No swelling of the mouth lips or tongue. Neck: Supple with a midline trachea. No meningeal signs or stiffness, no JVD or bruits. No Stridor. Chest: Frequent dry cough noted. Clear to auscultation bilaterally. No wheezes or rhonchi. No increased work of breathing. Heart: regular rate and rhythm. Abdomen: Soft nontender, nondistended without rebound guarding or rigidity. Extremities: Bilateral 1+ pitting edema. No cyanosis clubbing. No calf tenderness or assymetry Spine/Back. Non tender to palpation. No CVA tenderness Skin: Good turgor without rashes. Neurologic exam: Alert and oriented x3 Cranial nerves two through 12 are intact. Motor and sensation are intact and symmetrical throughout. Medical Decision & Procedures ER Provider Diagnostic Interpretation: X-ray results as stated below per interpretation by me and the radiologist: CHEST ONE VIEW PORTABLE CLINICAL HISTORY: CHEST PAIN dyspnea COMPARISON STUDY: 01/16/2017 FINDINGS: Unchanging prominence the central pulmonary vasculature. Moderate stable cardiomegaly. Slight prominence of pulmonary vasculature. Diaphragms smooth. IMPRESSION: 1. Stable cardiomegaly. 2. Stable findings of pulmonary arterial hypertension. 3. No acute infiltrate. Electronically signed by: Luis Fernando Keene M.D. 01/25/2017 4:12 PM Dictated Date/Time: 01/25/2017 4:11 PM Laboratory Results Test 01/25/17 12:30 01/25/17 15:25 01/25/17 15:39 Urine Color YELLOW Urine Appearance CLEAR (CLEAR) Urine pH 5.0 (4.5-7.5) Urine Specific [place] 1.017 (1.000-1.030) Urine Protein NEG (NEG) Urine Glucose (UA) NEG (NEG) Urine Ketones NEG (NEG) Urine Occult Blood NEG (NEG) Urine Nitrite NEG (NEG) Urine Bilirubin NEG (NEG) Urine Urobilinogen NEG (NEG) Urine Leukocyte Esterase TRACE (NEG) Urine WBC (Auto) 1-5 /hpf (0-5) Urine RBC (Auto) 0-4 /hpf (0-4) Urine Hyaline Casts (Auto) 1-5 /lpf (0-5) Urine Epithelial Cells (Auto) 20-30 /lpf (0-5) Urine Bacteria (Auto) NEG (NEG) Immature Granulocyte % (Auto) 0.3 % White Blood Count 6.31 K/uL (4.8-10.8) Red Blood Count 3.37 M/uL (4.2-5.4) Hemoglobin 10.2 g/dL (12.0-16.0) Hematocrit 32.3 % (37-47) Mean Corpuscular Volume 95.8 fL (80-100) Mean Corpuscular Hemoglobin 30.3 pg (25-34) Mean Corpuscular Hemoglobin Concent 31.6 g/dl (32-36) Platelet Count 179 K/uL (130-400) Mean Platelet Volume 12.7 fL (7.4-10.4) Neutrophils (%) (Auto) 85.6 % Lymphocytes (%) (Auto) 11.6 % Monocytes (%) (Auto) 2.1 % Eosinophils (%) (Auto) 0.2 % Basophils (%) (Auto) 0.2 % Neutrophils # (Auto) 5.41 K/uL (1.4-6.5) Lymphocytes # (Auto) 0.73 K/uL (1.2-3.4) Monocytes # (Auto) 0.13 K/uL (0.11-0.59) Eosinophils # (Auto) 0.01 K/uL (0-0.5) Basophils # (Auto) 0.01 K/uL (0-0.2) Immature Granulocyte # (Auto) 0.02 K/uL (0.00-0.02) Activated Partial Thromboplast Time 28.2 SECONDS (21.0-31.0) Partial Thromboplastin Ratio 1.1 Magnesium Level 2.3 mg/dl (1.8-2.4) Total Bilirubin 0.4 mg/dl (0.2-1) Direct Bilirubin 0.1 mg/dl (0-0.2) Aspartate Amino Transf (AST/SGOT) 25 U/L (15-37) Alanine Aminotransferase (ALT/SGPT) 51 U/L (12-78) Alkaline Phosphatase 43 U/L (45-117) Total Creatine Kinase 29 U/L (26-192) Creatine Kinase MB 2.3 ng/ml (0.5-3.6) Creatine Kinase MB Ratio 7.9 (0-3.0) Total Protein 6.0 gm/dl (6.4-8.2) Albumin 2.8 gm/dl (3.4-5.0) Lipase 309 U/L (73-393) Bedside Troponin I 0.020 ng/ml (0-0.045) FY-Mhe-T-Type Natriuretic Peptide 5463 pg/ml (0-900) Laboratory studies as stated above per my review. Medications Administered Medications (Trade) Dose Ordered Sig/Mehdi Route Start Time Stop Time Status Last Admin Dose Admin Sodium Bicarbonate (Sodium Bicarbonate 8.4% Inj) 50 ml NOW STAT IV 01/25/17 16:58 01/25/17 16:59 DC 01/25/17 17:42 50 ML Calcium Chloride (Calcium Chloride 10%) 1,000 mg NOW STAT IV 01/25/17 16:58 01/25/17 16:59 DC 01/25/17 17:42 1,000 MG ECG Indication: weakness Rate (beats per minute): 44 Rhythm: sinus bradycardia Findings: RBBB, no acute ischemic change Comparison ECG Date: January 24, 2017 Change: PAC now absent. ED Course 1459: Past medical records reviewed. The patient was evaluated in room C2, and a complete history and physical examination were performed. 165: Ordered Calcium Chloride 1,000 mg IV, Sodium Bicarbonate 50 ml IV. 1706: I discussed the patient's case with Dr. Alberto ([facility]). He will evaluate the patient for further management and care. Medical Decision Differentials include, but are not limited to; CHF, pneumonia, COPD, anemia, electrolyte metabolic imbalance, acute coronary syndrome, sepsis. This patient comes in as described above. She has a history of COPD among other medical problems. She's been feeling more weak. She's had a cough. Today they thought her oxygen was low at home and she was more somnolent. She seen yesterday and had a mildly elevated potassium. IV access established blood work was obtained. EKG and chest x-ray was obtained. She's had nothing to suggest congestive heart failure or pneumonia. She has nothing to suggest acute cardiac event although she is bradycardic. Potassium was elevated 5.7 with her bradycardia could be related to that she was given an amp of calcium gluconate as well as an amp of calcium bicarbonate. I do think she is be admitted for treatment and monitoring of her potassium as well as her respiratory and neurologic status. She is much more awake and alert now. I have consulted the [facility] hospitalist group this on ER will admit her for these measures. Consults Time Called: 1700 Consulting Physician: Dr. Alberto ([facility]) Returned Call: [phone] I discussed the patient's case with Dr. Alberto ([facility]). He will evaluate the patient for further management and care. Impression Primary Impression: Hyperkalemia Additional Impression: Weakness Scribe Attestation The scribe's documentation has been prepared under my direction and personally reviewed by me in its entirety. I confirm that the note above accurately reflects all work, treatment, procedures, and medical decision making performed by me. Departure Information Dispostion Being Evaluated By Hospitalist Prescriptions Prednisone Tab (PREDNISONE) 10 Mg Tab 10 MG PO UD, #50 TAB currently on taper 20mg and taper by 5mg every 3 days Prov: Kylah Shanks ., DINORAH 01/25/17 Referrals Jodi South D.O. (PCP) Patient Instructions My [facility] Health Problem Qualifiers
[2017-01-25 15:45] LABS: URINE APPEARANCE CLEAR (CLEAR); URINE BILIRUBIN NEG (NEG); URINE COLOR YELLOW; URINE EPITHELIAL CELL AUTO 20-30 /lpf (0-5); URINE NITRITE NEG (NEG); URINE SPECIFIC GRAVITY 1.017 (1.000-1.030); UROBILINOGEN NEG (NEG); ZZURINE CULT IF INDIC CATH NO
[2017-01-25 15:47] LABS: BASO % 0.2 %; BASO ABS # 0.01 K/uL (0-0.2); COMPLETE YES; EOS % 0.2 %; HEMATOCRIT 32.3 % (37-47); IG% 0.3 %; LYMPH % 11.6 %; LYMPH ABS # 0.73 K/uL (1.2-3.4); MEAN CELL VOLUME 95.8 fL (80-100); MEAN CORPUSCULAR HEMOGLOBIN 30.3 pg (25-34); MEAN CORPUSCULAR HGB CONC 31.6 g/dl (32-36); MEAN PLATELET VOLUME 12.7 fL (7.4-10.4); MONO % 2.1 %; NEUT % 85.6 %; PLATELET COUNT 179 K/uL (130-400); RED BLOOD COUNT 3.37 M/uL (4.2-5.4); WHITE BLOOD COUNT 6.31 K/uL (4.8-10.8)
[2017-01-25 15:49] LABS: MANUAL MICROSCOPIC REQUIRED? NO; REVIEW REQ? NO
[2017-01-25 15:55] LABS: POINT OF CARE TROPONIN I 0.02 ng/ml (0-0.045)
[2017-01-25 15:55] LABS: INR 1.6 (0.9-1.1); PARTIAL THROMBOPLASTIN RATIO 1.1; PROTHROMBIN TIME (PATIENT) 17.6 SECONDS (9.0-12.0)
[2017-01-25 16:07] LABS: BUN/CREATININE RATIO 43.5 (10-20); CALCIUM 8.4 mg/dl (8.5-10.1); CREATININE 1.2 mg/dl (0.60-1.20); POTASSIUM 5.7 mmol/L (3.5-5.1)
[2017-01-25 16:12] LABS: CKMB/CK RATIO 7.9 (0-3.0)
--- NOTE | 2017-01-25 16:13 | DIAGNOSTIC IMAGING REPORT ---
CHEST ONE VIEW PORTABLE CLINICAL HISTORY: CHEST PAIN dyspnea COMPARISON STUDY: 01/16/2017 FINDINGS: Unchanging prominence the central pulmonary vasculature. Moderate stable cardiomegaly. Slight prominence of pulmonary vasculature. Diaphragms smooth. IMPRESSION: 1. Stable cardiomegaly. 2. Stable findings of pulmonary arterial hypertension. 3. No acute infiltrate. Electronically signed by: Luis Fernando Keene M.D. 01/25/2017 4:12 PM Dictated Date/Time: 01/25/2017 4:11 PM
[2017-01-25] MEDS ORDERED: CALCIUM CHLORIDE 10% 10 ML SYR IV STA (16:58)
[2017-01-25] MEDS ORDERED: SODIUM BICARB 8.4% INJ 50 MEQ/50 ML SYR IV STA (16:58)
[2017-01-25] MEDS ORDERED: ACETAMINOPHEN 325 MG TAB PO PRN (17:45)
[2017-01-25] MEDS ORDERED: ONDANSETRON INJ 2 MG/ML 2 ML VIAL IV PRN (17:45)
[2017-01-25] MEDS ORDERED: PRED10TA PO (17:48)
[2017-01-25] MEDS ORDERED: ALBUTEROL 0.083% NEBU SOLN 3 ML VIAL INH PRN (18:00)
--- NOTE | 2017-01-25 18:38 | History and Physical ---
History & Physical Date & Time of Service: Jan 25, 2017 at 18:09 Chief Complaint: Lethargic Primary Care Physician: Jodi South D.O. History of Present Illness 71 year old female who was sent to the ER by home health nursing for evaluation of lethargy. Patient was recently admitted to [facility] 01/09 - 01/17 for acute on chronic respiratory failure due to bilateral pneumonia, COPD, and acute on chronic diastolic CHF. Patient completed course of Ertapenem and Vanco was d/c' d as MRSA nasal swab was negative. Patient was also treated with IV Lasix and steroids. She was discharged on a prolonged steroid taper. Patient reports she has been feeling since being home from the hospital. She had routine labs drawn yesterday as an outpatient that showed hyperkalemia. She came to the ER and K+ was near normal so she was discharged home. Today the home health nurse reports she was lethargic and difficult to arouse. She is currently awake and oriented. Per prior admission, daughter had reported that the patient has episodes of sleepiness and difficult to arouse. Patient has swelling to her lower extremities which she reports is chronic and at baseline. Breathing has been good. She reports a persistent cough from being in the hospital but it is improving. She denies chest pain, lightheadedness, dizziness, or syncopal events. No abdominal pain nausea, vomiting, or diarrhea. She denies any urinary symptoms. No fever or chills. In the ER, patient is found to have K+ 5.7. She is also intermittent bradycardic which she is asymptomatic. She was given IV calcium and bicarb. Past Medical/Surgical History Medical Problems: (1) Afib Permanent Comment: s/p ablation Status: Chronic (2) Anemia Status: Chronic (3) ASD (atrial septal defect) Permanent Comment: repaired Status: Chronic (4) CKD (chronic kidney disease), stage IV Status: Chronic (5) COPD (chronic obstructive pulmonary disease) Status: Chronic (6) GERD (gastroesophageal reflux disease) Status: Chronic (7) H/O unilateral nephrectomy Permanent Comment: right Status: Chronic (8) Heart disease Permanent Comment: mild CAD cath 2007 Status: Chronic (9) HLD (hyperlipidemia) Status: Chronic (10) HTN (hypertension) Status: Chronic (11) Hypertension Status: Chronic (12) Hypothyroid Status: Chronic (13) Mild left ventricular systolic dysfunction Permanent Comment: EF 45-49% echo 04/2016 Status: Chronic (14) MRSA bacteremia Permanent Comment: in the setting of pacemaker vegetation (08/2011) and discitis (02/2012) Status: Resolved (15) Pacemaker Permanent Comment: removed 2010 due to infection Status: Chronic (16) Right-sided congestive heart failure Status: Chronic (17) Solitary kidney Status: Chronic (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 Surgical Problems: (1) H/O thyroidectomy Status: Chronic (2) History of appendectomy Status: Chronic (3) S/P MVR (mitral valve repair) Status: Chronic Family History Heart disease Hypertension Lung disease Social History Smoking Status: Former Smoker Alcohol Use: none Housing status: lives with family Immunizations History of Influenza Vaccine: Yes Influenza Vaccine Date: Oct 06, 2016 History of Tetanus Vaccine?: Yes Tetanus Immunization Date: Jul 08, 2015 History of Pneumococcal: Yes Pneumococcal Date: May 20, 2015 Multi-Drug Resistant Organisms History of MDRO: Yes Type of MDRO: MRSA Allergies Coded Allergies: Levofloxacin (Verified Allergy, Intermediate, HIVES, 01/25/17) Quinolones (Verified Allergy, Intermediate, HIVES, 01/25/17) Ranitidine (Verified Allergy, Intermediate, HIVES, 01/25/17) Sulfamethoxazole (Verified Allergy, Intermediate, HIVES, 01/25/17) Trimethoprim (Verified Allergy, Intermediate, HIVES, 01/25/17) Clarithromycin (Verified Allergy, Mild, HIVES, CAN TAKE ZITHROMAX W/O PROB , 01/25/17) Amoxicillin (Verified Allergy, Unknown, HIVES, 01/25/17) Omeprazole (Verified Allergy, Unknown, HAS HAD PROTONIX, 01/25/17) Home Medications Scheduled Bumetanide (Bumetanide), 1 MG PO DAILY Calcitriol (Calcitriol), 1 CAP PO MWF Donepezil Hydrochloride (Aricept), 10 MG PO HS Ferrous Sulfate (Iron), 1 TAB PO BID Fluticasone Prop/Salmeterol (Advair Diskus 250/50 60 Dose), 1 PUFF INH BID Fluticasone Propionate (Nasal) (Flonase Allergy Relief), 1 SPRAY PAULIE BID Gabapentin (Neurontin), 300 MG PO DAILY Gabapentin (Neurontin), 600 MG PO AMHS Hydralazine HCl (Hydralazine HCl), 10 MG PO BID Levothyroxine Sodium (Levothyroxine Sodium), 75 MCG PO DAILY Metoprolol Succinate (Metoprolol Succinate ER), 12.5 MG PO DAILY Montelukast Sodium (Singulair), 1 TAB PO DAILY Nitroglycerin (Nitrostat), 0.4 MG SL PRN UD Oxybutynin Chloride (Oxybutynin Chloride Er), 5 MG PO DAILY Oxygen (Oxygen), 2-3 LITERS NA CONTINOUS Pantoprazole (Protonix), 40 MG PO DAILY Pravastatin Sodium (Pravastatin Sodium), 80 MG PO QPM Prednisone (Prednisone), 20 MG PO UD Senna (Senna Lax), 8.6 MG PO QAM Umeclidinium [place] (Incruse Ellipta), 1 INHA INH DAILY Warfarin Sod (Coumadin), 2 MG PO DAILY@16 Scheduled PRN Albuterol Sulf (Proventil 0.083% 2.5MG/3ML), 2.5 MG INH Q4H PRN for SOB/Wheezing Albuterol Sulfate (Proair Respiclick), 2 PUFFS INH QID PRN for Shortness of Breath Guaifenesin (Organ-I Nr), 200 MG PO Q8 PRN for Cough Review of Systems 10 point review of systems was completed with the pertinent positives and negatives noted per the HPI Physical Exam Vital Signs Date Time Temp Pulse Resp B/P Pulse Ox O2 Delivery O2 Flow Rate FiO2 01/25/17 17:46 61 18 173/78 97 Nasal Cannula 3.0 01/25/17 16:54 49 01/25/17 16:05 63 16 148/103 97 Room Air 01/25/17 15:18 52 20 151/65 96 Nasal Cannula 3.0 01/25/17 15:06 95 Room Air 01/25/17 12:29 57 01/25/17 12:23 36.4 58 20 154/63 95 Nasal Cannula 3.0 General Appearance: no apparent distress Head: normocephalic Eyes: normal inspection ENT: hearing grossly normal Neck: supple, no JVD Respiratory/Chest: no respiratory distress, + crackles (BL bases) Cardiovascular: + bradycardia (normal rate), + pertinent finding (+2 pitting edema BLLE) Abdomen/GI: normal bowel sounds, non tender, soft Extremities/Musculoskelatal: normal inspection, no calf tenderness Neurologic/Psych: no motor/sensory deficits, alert, normal mood/affect, oriented x 3 Skin: normal color, warm/dry Diagnostics Laboratory Results Results Past 24 Hours Test 01/25/17 12:30 01/25/17 15:25 01/25/17 15:39 Range/Units Urine Color YELLOW Urine Appearance CLEAR CLEAR Urine pH 5.0 4.5-7.5 Urine Specific [place] 1.017 1.000-1.030 Urine Protein NEG NEG Urine Glucose (UA) NEG NEG Urine Ketones NEG NEG Urine Occult Blood NEG NEG Urine Nitrite NEG NEG Urine Bilirubin NEG NEG Urine Urobilinogen NEG NEG Urine Leukocyte Esterase TRACE NEG Urine WBC (Auto) 1-5 0-5 /hpf Urine RBC (Auto) 0-4 0-4 /hpf Urine Hyaline Casts (Auto) 1-5 0-5 /lpf Urine Epithelial Cells (Auto) 20-30 0-5 /lpf Urine Bacteria (Auto) NEG NEG White Blood Count 6.31 4.8-10.8 K/uL Red Blood Count 3.37 4.2-5.4 M/uL Hemoglobin 10.2 12.0-16.0 g/dL Hematocrit 32.3 37-47 % Mean Corpuscular Volume 95.8 80-100 fL Mean Corpuscular Hemoglobin 30.3 25-34 pg Mean Corpuscular Hemoglobin Concent 31.6 32-36 g/dl Platelet Count 179 130-400 K/uL Mean Platelet Volume 12.7 7.4-10.4 fL Neutrophils (%) (Auto) 85.6 % Lymphocytes (%) (Auto) 11.6 % Monocytes (%) (Auto) 2.1 % Eosinophils (%) (Auto) 0.2 % Basophils (%) (Auto) 0.2 % Neutrophils # (Auto) 5.41 1.4-6.5 K/uL Lymphocytes # (Auto) 0.73 1.2-3.4 K/uL Monocytes # (Auto) 0.13 0.11-0.59 K/uL Eosinophils # (Auto) 0.01 0-0.5 K/uL Basophils # (Auto) 0.01 0-0.2 K/uL RDW Standard Deviation 60.2 36.4-46.3 fL RDW Coefficient of Variation 17.4 11.5-14.5 % Immature Granulocyte % (Auto) 0.3 % Immature Granulocyte # (Auto) 0.02 0.00-0.02 K/uL Prothrombin Time 17.6 9.0-12.0 SECONDS Prothromb Time International Ratio 1.6 0.9-1.1 Activated Partial Thromboplast Time 28.2 21.0-31.0 SECONDS Partial Thromboplastin Ratio 1.1 Sodium Level 143 136-145 mmol/L Potassium Level 5.7 3.5-5.1 mmol/L Chloride Level 104 98-107 mmol/L Carbon Dioxide Level 34 21-32 mmol/L Anion Gap 5.0 3-11 mmol/L Blood Urea Nitrogen 52 7-18 mg/dl Creatinine 1.20 0.60-1.20 mg/dl Est Creatinine Clear Calc Drug Dose 44.5 ml/min Estimated GFR () 52.3 Estimated GFR (Non- 45.1 BUN/Creatinine Ratio 43.5 10-20 Random Glucose 159 70-99 mg/dl Calcium Level 8.4 8.5-10.1 mg/dl Magnesium Level 2.3 1.8-2.4 mg/dl Total Bilirubin 0.4 0.2-1 mg/dl Direct Bilirubin 0.1 0-0.2 mg/dl Aspartate Amino Transf (AST/SGOT) 25 15-37 U/L Alanine Aminotransferase (ALT/SGPT) 51 12-78 U/L Alkaline Phosphatase 43 45-117 U/L Total Creatine Kinase 29 26-192 U/L Creatine Kinase MB 2.3 0.5-3.6 ng/ml Creatine Kinase MB Ratio 7.9 0-3.0 Total Protein 6.0 6.4-8.2 gm/dl Albumin 2.8 3.4-5.0 gm/dl Lipase 309 73-393 U/L Bedside Troponin I 0.020 0-0.045 ng/ml [id number]-Pke-[id number]-Type Natriuretic Peptide 5463 0-900 pg/ml Microbiology Results 01/25/17 Blood Culture, Received Pending 01/25/17 Blood Culture, Received Pending Diagnostic Radiology CXR IMPRESSION: 1. Stable cardiomegaly. 2. Stable findings of pulmonary arterial hypertension. 3. No acute infiltrate. Impression Assessment and Plan HYPERKALEMIA IN THE SETTING OF CKD STAGE IV - admit to tele - patient presenting with episodic lethargy, now improved (chronic issue per daughter); found to have K+ 5.7 - no acute EKG changes, however intermittently bradycardic which she had during previous admission - s/p calcium and bicarb in ED, will recheck K+ and provider further intervention if needed - baseline creat runs in the mid - high 1's - creat noted to be 1.2 today - continue to monitor, avoid nephrotoxic agents when able - nephrology consult BRADYCARDIA, HX PAROXYSMAL AFIB - during previous admission patient had runs of nonsustained VT and atrial tachycardia with HR dropping into the 40s at times - per cardiology, low dose metoprolol was continued due to intermittent tachy arrhythmias - for now will hold metoprolol until evaluated by cardiology; also on Aricept which can cause bradycardia that will be held as well - hx of pacemaker however removed due to lead vegetation - on Coumadin, INR 1.6; dose Coumadin according to INR CHRONIC HYPOXIC RESPIRATORY FAILURE - Multifactorial due to COPD, Diastolic CHF (Diastolic), EDAC with chronic issues - Cor pulmonale, Obesity hypoventilation, chronic aspiration, pulmonary hypertension - patient seems to be at baseline from pulmonary standpoint - saturating well on her chronic 3L, lower extremity edema at baseline - continue prednisone taper from prior admission - continue Bumex HTN - BP controlled, continue hydralazine - holding metoprolol as above HYPOTHYROIDISM - continue levothyroxine DVT PROPHYLAXIS - on Coumadin CODE STATUS - Patient is a full code as per my discussion with her. ATTENDING ADDENDUM : 71 yo F with hx of CKD stage 4 , Hx of SSS in past had pacemaker placement , which was removed due to concern for vegetation presents with Hyperkalemia K 5.7 , bradycardia pt will be admitted to tele nephrology consulted for YAZMIN On CKD stage 4 Hyperkalemia given hco3 /C gluconate in ED repeat PRP In 4 hrs Bradycardia due to electrolyte derangement ? hold Beta lacho correct hyperkalemia Cardiology consult requested monitor in tele VTE Prophylaxis VTE Risk Assessment Done? Y/N: Yes Risk Level: Moderate
[2017-01-25 19:02] VITALS: BP 179/99; PULSE 64; TEMP 36.7; O2SAT 95
[2017-01-25 19:08] VITALS: BP 179/99; PULSE 64; TEMP 36.7; O2SAT 96; Ht 157.5 cm; Wt 67.2 kg
[2017-01-25] MEDS ORDERED: WARFARIN SOD 5 MG TAB PO ONE (19:45)
[2017-01-25] MEDS ORDERED: PNEUMOCOCCAL POLYSACCHARIDES 25 MCG/0.5 ML VIAL/SYR IM. ONE (20:30)
[2017-01-25] MEDS ORDERED: PNEUMOCOCCAL ADMINISTRATION CHARGE ONE (20:30)
[2017-01-25] MEDS: FLUTICASONE/SALMETEROL 250/50 (ADVAIR) 14 PUFF/1 INHALER INH SCH (22:08)
[2017-01-25] MEDS: FLUTICASONE PROPIONATE NA SPR 16 GM BTL NAE SCH (22:09)
[2017-01-25] MEDS: FERROUS SULFATE 325 MG TAB PO SCH (22:10)
[2017-01-25] MEDS: GABAPENTIN 600 MG TAB PO SCH (22:11)
[2017-01-25] MEDS: PRAVASTATIN SOD 40 MG TAB PO SCH (22:11)
[2017-01-25] MEDS: HydrALAZINE 10 MG TAB PO SCH (22:12)
[2017-01-25 22:30] VITALS: BP 138/64; PULSE 47
[2017-01-25 23:59] VITALS: O2SAT 96
[2017-01-26] VITALS (13 sets, daily range): BP systolic 130–161; BP diastolic 46–77; PULSE 49–65; TEMP 36.3–36.8; O2SAT 92–99
[2017-01-26] MEDS: LEVOTHYROXINE 75 MCG TAB PO SCH (05:21)
[2017-01-26 06:12] LABS: HEMATOCRIT 31.4 % (37-47); MEAN CORPUSCULAR HEMOGLOBIN 29.3 pg (25-34); MEAN CORPUSCULAR HGB CONC 31.2 g/dl (32-36); MEAN PLATELET VOLUME 11.9 fL (7.4-10.4); PLATELET COUNT 166 K/uL (130-400); RED BLOOD COUNT 3.34 M/uL (4.2-5.4); WHITE BLOOD COUNT 6.52 K/uL (4.8-10.8)
[2017-01-26 06:21] LABS: INR 1.6 (0.9-1.1); PROTHROMBIN TIME (PATIENT) 17.2 SECONDS (9.0-12.0)
[2017-01-26 06:48] LABS: BUN/CREATININE RATIO 45.6 (10-20); CALCIUM 8.9 mg/dl (8.5-10.1); CREATININE 1.1 mg/dl (0.60-1.20); POTASSIUM 5.3 mmol/L (3.5-5.1)
[2017-01-26] MEDS: FLUTICASONE/SALMETEROL 250/50 (ADVAIR) 14 PUFF/1 INHALER INH SCH ×2 (08:32→21:45)
[2017-01-26] MEDS: FLUTICASONE PROPIONATE NA SPR 16 GM BTL NAE SCH ×2 (08:32→21:45)
[2017-01-26] MEDS: BUMETANIDE 1 MG TAB PO SCH (08:33)
[2017-01-26] MEDS: HydrALAZINE 10 MG TAB PO SCH ×2 (08:33→21:46)
[2017-01-26] MEDS: FERROUS SULFATE 325 MG TAB PO SCH ×2 (08:34→21:47)
[2017-01-26] MEDS: OXYBUTYNIN CHLORIDE 5 MG TABCR PO SCH (08:34)
[2017-01-26] MEDS: PANTOprazole SOD 40 MG TAB PO SCH (08:47)
[2017-01-26] MEDS: GABAPENTIN 600 MG TAB PO SCH ×2 (08:47→21:48)
[2017-01-26] MEDS: MONTELUKAST SOD 10 MG TAB PO SCH (08:48)
[2017-01-26] MEDS: SENNA 8.6 MG TAB PO SCH (08:48)
--- NOTE | 2017-01-26 09:22 | NEPHROLOGY CONSULTATION ---
DATE OF CONSULTATION: 01/26/2017 ATTENDING OF RECORD: Dr. Quesada. REASON FOR CONSULTATION: Hyperkalemia. HISTORY OF PRESENT ILLNESS: This is a 71-year-old female, last seen in my office in September of last year with CKD stage IV with no proteinuria, with solitary kidney since 1964 as well as hypertensive nephrosclerosis. The patient has had hypertension for many years; however, no history of myeloma, avoids NSAIDs, is not a diabetic. She quit tobacco in the and is on oxygen at 3 liters at home for severe pulmonary hypertension. The patient also has a history of Afib with history of pacemaker in the past, however, had to be removed secondary to infection. History of endocarditis with atrial septal defect with a repair to the heart in 2007. At the time that I saw the patient in September, pulse was in the 50s, creatinine was 1.8 to 1.9 with microalbuminuria; however, last creatinine on 01/23/2017 was 1.1 with a potassium level of 6.8 and had a repeat blood work on 01/24/2017 which had a potassium level of 5.3 and a creatinine of 1.2. However, the one in September of last year, creatinine of 1.5 with a potassium level of 4.4. The patient came to the hospital and this morning when speaking to her I asked her why she came, she states she has no idea. She then called the ambulance and she came via ambulance and she does not know why she needs to be here. She has had a dry cough for the past month ever since having pneumonia about a month ago. The patient was in the hospital from 01/09/2017 to 01/17/2017 for respiratory failure due to bilateral pneumonia, COPD, acute on chronic diastolic heart failure, and was treated with IV Lasix and steroids and discharged on steroids. The patient had a pulse of 58 on admission, went down to 49 yesterday afternoon, and is currently in the low 50s to high 40s. The patient's potassium level was 5.7 and has improved to 5.3, and creatinine was 1.2, is now 1.1. ProBNP was 5463 with an albumin of 2.8, calcium 8.4, and magnesium of 2.3. The patient does not have leukocytosis. UA does not appear infectious. Blood cultures are pending. Chest x-ray shows stable cardiomegaly with findings of pulmonary arterial hypertension with no acute infiltrate. The patient was given calcium and bicarbonate in the Emergency Room for the hyperkalemia. Continued the outpatient prednisone taper as well as the Bumex as volume status appears appropriate and creatinines stable compared to baseline kidney function. REVIEW OF SYSTEMS: Positive fatigue. Positive dry cough. Positive chronic shortness of breath. No chest pain. No nausea or vomiting. No itching. No lightheadedness. No diarrhea or constipation. No fevers or chills. All other review of systems otherwise negative. PAST MEDICAL HISTORY: Atrial fibrillation, atrial septal defect which was repaired. CKD stage IV history; however, last creatinine was 1.5 last fall and is currently around 1.2 now. Underlying COPD, severe pulmonary arterial hypertension, solitary kidney, hyperlipidemia, hypertension, hypothyroidism. PAST SURGICAL HISTORY: Atrial septal defect repair, appendectomy, thyroidectomy, history of pacemaker which was eventually removed secondary to infection. FAMILY HISTORY: Significant for heart disease. SOCIAL HISTORY: Former smoker. No alcohol, no drugs. Lives at home with family. CURRENT MEDICATIONS: Calcitriol 0.25 mcg Mondays, Wednesdays, and Fridays, Neurontin 300 mg daily, Bumex 1 mg daily, Singulair 10 mg daily, oxybutynin 5 mg daily, Protonix 40 mg daily, prednisone 20 mg daily, Senna daily, levothyroxine 75 mcg daily, Advair inhaler twice a day, Flonase spray twice a day, Neurontin 600 mg with meals and at night, hydralazine 10 mg p.o. b.i.d., iron 325 mg p.o. b.i.d., Pravachol 80 mg at night. PHYSICAL EXAMINATION: VITAL SIGNS: Temperature 36.4, pulse 51, respiratory rate is 20, blood pressure is 151/56, satting 96% on 2-1/2 liters. GENERAL: Awake, alert, oriented x3. EYES: No scleral icterus. ENT: Moist mucous membranes. NECK: Supple. PULMONARY: Clear to auscultation. CARDIAC: Ronan. ABDOMEN: Bowel sounds positive, soft, nontender. EXTREMITIES: Mild edema. NEUROLOGIC: Nonfocal. DERMATOLOGIC: No rash or ulcers noted. LABORATORY DATA: White count is 6, H\T\H 9 and 31, platelet count is 166. INR is 1.6. UA is bland with some trace leukocyte esterase, 20-30 epithelial cells, specific gravity 1.017, pH of 5. Sodium was 144, potassium 5.3, chloride is 105, bicarbonate is 35, BUN is 50, creatinine is 1.1. Glucose is 83, calcium is 8.9, magnesium is 2.3. ProBNP is 5463. Albumin is 2.8. Blood cultures are pending. Chest x-ray shows no acute infiltrate. IMPRESSION AND PLAN: 1. CKD stage 3/4-The patient did have a history of chronic kidney disease stage IV with baseline creatinine closer to 1.8 to 1.5 last fall when I was seeing the patient in the outpatient clinic; however, recent creatinines are 1.1 to 1.2 which is very good for she has a solitary kidney as well as hypertensive nephrosclerosis and appears to be below her baseline kidney function, although volume status appears appropriate. Would continue her current diuretics and steroid taper as decided by the primary hospitalist. 2. Hyperkalemia. Appears the patient may have been eating high potassium foods. Also, the prednisone could contribute to the hyperkalemia. Potassium levels are trending down and I would continue renal diet. No need for any additional Kayexalate, insulin, or D50. Hopefully, with the renal diet and avoidance of high potassium foods, her potassium levels will continue to trend down within normal range. We will continue to reiterate the importance of low potassium diet and follow up potassium as an outpatient. 3. Bradycardia. The patient is well known to have pulse normally in the 50s in the clinic and relatively asymptomatic for it; however, currently now intermittently in the 40s. Beta blockers have been held and primary hospitalist discussing further with cardiology as to whether to continue it or not. In the past, they suggested to continue it secondary to her tachyarrhythmias. The patient appears relatively asymptomatic and wants to go home. Given the fact that her potassium levels have improved into the 5.3 range, okay from the renal perspective to go home with repeat potassium level on Saturday; however, needs to be medically cleared by cardiology and the primary hospitalist as well. I appreciate consultation. JUHI
--- NOTE | 2017-01-26 09:44 | Progress Note ---
Medicine Progress Note Date & Time of Visit: Jan 26, 2017 at 09:15. Subjective Pt was seen and examined Sitting in bed comfortable with no distress she just finished eating her breakfast pt said that she feels fine she wants to know when she will be discharged denies any chest pain, palpitation, dizziness and sob Objective Last 8 Hrs Date Time Temp Pulse Resp B/P Pulse Ox O2 Delivery O2 Flow Rate FiO2 01/26/17 07:45 36.7 50 20 157/60 95 Nasal Cannula 2.0 01/26/17 04:40 36.4 51 20 151/56 96 Nasal Cannula 2.5 01/26/17 04:00 96 Nasal Cannula 3.0 Physical Exam: General- no acute distress Head- atraumatic Eyes- PERRL, EOMI ENT- oropharynx clear Neck- supple, no JVD Lungs- Coarse BS Heart- bradycardia, no murmur Abdomen- normal bowel sounds, soft Extremities-no calf tenderness, +edema Neuro- alert, oriented, PERRL, EOMI; no facial palsy Skin- warm & dry Laboratory Results: Last 24 Hours Test 01/25/17 12:30 01/25/17 15:25 01/25/17 15:39 01/25/17 19:35 Urine Color YELLOW Urine Appearance CLEAR Urine pH 5.0 Urine Specific [place] 1.017 Urine Protein NEG Urine Glucose (UA) NEG Urine Ketones NEG Urine Occult Blood NEG Urine Nitrite NEG Urine Bilirubin NEG Urine Urobilinogen NEG Urine Leukocyte Esterase TRACE Urine WBC (Auto) 1-5 /hpf Urine RBC (Auto) 0-4 /hpf Urine Hyaline Casts (Auto) 1-5 /lpf Urine Epithelial Cells (Auto) 20-30 /lpf Urine Bacteria (Auto) NEG White Blood Count 6.31 K/uL Red Blood Count 3.37 M/uL Hemoglobin 10.2 g/dL Hematocrit 32.3 % Mean Corpuscular Volume 95.8 fL Mean Corpuscular Hemoglobin 30.3 pg Mean Corpuscular Hemoglobin Concent 31.6 g/dl Platelet Count 179 K/uL Mean Platelet Volume 12.7 fL Neutrophils (%) (Auto) 85.6 % Lymphocytes (%) (Auto) 11.6 % Monocytes (%) (Auto) 2.1 % Eosinophils (%) (Auto) 0.2 % Basophils (%) (Auto) 0.2 % Neutrophils # (Auto) 5.41 K/uL Lymphocytes # (Auto) 0.73 K/uL Monocytes # (Auto) 0.13 K/uL Eosinophils # (Auto) 0.01 K/uL Basophils # (Auto) 0.01 K/uL RDW Standard Deviation 60.2 fL RDW Coefficient of Variation 17.4 % Immature Granulocyte % (Auto) 0.3 % Immature Granulocyte # (Auto) 0.02 K/uL Prothrombin Time 17.6 SECONDS Prothromb Time International Ratio 1.6 Activated Partial Thromboplast Time 28.2 SECONDS Partial Thromboplastin Ratio 1.1 Sodium Level 143 mmol/L Potassium Level 5.7 mmol/L 5.5 mmol/L Chloride Level 104 mmol/L Carbon Dioxide Level 34 mmol/L Anion Gap 5.0 mmol/L Blood Urea Nitrogen 52 mg/dl Creatinine 1.20 mg/dl Est Creatinine Clear Calc Drug Dose 44.5 ml/min Estimated GFR () 52.3 Estimated GFR (Non- 45.1 BUN/Creatinine Ratio 43.5 Random Glucose 159 mg/dl Calcium Level 8.4 mg/dl Magnesium Level 2.3 mg/dl Total Bilirubin 0.4 mg/dl Direct Bilirubin 0.1 mg/dl Aspartate Amino Transf (AST/SGOT) 25 U/L Alanine Aminotransferase (ALT/SGPT) 51 U/L Alkaline Phosphatase 43 U/L Total Creatine Kinase 29 U/L Creatine Kinase MB 2.3 ng/ml Creatine Kinase MB Ratio 7.9 Total Protein 6.0 gm/dl Albumin 2.8 gm/dl Lipase 309 U/L Bedside Troponin I 0.020 ng/ml NW-[id number]-[id number]-Type Natriuretic Peptide 5463 pg/ml Test 01/26/17 06:02 White Blood Count 6.52 K/uL Red Blood Count 3.34 M/uL Hemoglobin 9.8 g/dL Hematocrit 31.4 % Mean Corpuscular Volume 94.0 fL Mean Corpuscular Hemoglobin 29.3 pg Mean Corpuscular Hemoglobin Concent 31.2 g/dl RDW Standard Deviation 59.5 fL RDW Coefficient of Variation 17.4 % Platelet Count 166 K/uL Mean Platelet Volume 11.9 fL Prothrombin Time 17.2 SECONDS Prothromb Time International Ratio 1.6 Sodium Level 144 mmol/L Potassium Level 5.3 mmol/L Chloride Level 105 mmol/L Carbon Dioxide Level 35 mmol/L Anion Gap 4.0 mmol/L Blood Urea Nitrogen 50 mg/dl Creatinine 1.10 mg/dl Est Creatinine Clear Calc Drug Dose 48.5 ml/min Estimated GFR () 58.1 Estimated GFR (Non- 50.1 BUN/Creatinine Ratio 45.6 Random Glucose 83 mg/dl Calcium Level 8.9 mg/dl Date/Time Source Procedure Growth Status 01/25/17 15:50 Blood Blood Culture Pending Received 01/25/17 15:25 Blood Blood Culture Pending Received Assessment & Plan HYPERKALEMIA IN THE SETTING OF CKD STAGE IV -Creatine on admission 5.7 - EKG this morning showed sinus with PAC -Received calcium and bicarb in ED, -Creatine today 5.3 -Continue monitor BMP - Nephro on board CKD WITH STAGE 4 Creatine stable Avoid nephrotoxic agents Nephrology on board BRADYCARDIA, HX PAROXYSMAL AFIB - during previous admission patient had runs of nonsustained VT and atrial tachycardia with HR dropping into the 40s at times - per cardiology, low dose metoprolol was continued due to intermittent tachy arrhythmias - 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 - Case discussed with Cardiology that consider to restart the metoprolol and d/ c the Aricept due to the bradycardia - Had a pacemaker placed, 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 - Received Coumadin 5 mg yesterday, INR 1.6 today - continue PT/INR CHRONIC HYPOXIC RESPIRATORY FAILURE - Multifactorial due to COPD, Diastolic CHF (Diastolic), EDAC with chronic issues - Cor pulmonale, Obesity hypoventilation, chronic aspiration, pulmonary hypertension - saturating well on her chronic 3L, lower extremity edema at baseline - continue prednisone taper taper dose - continue Bumex - stable HTN - BP elevated - consider to resume metoprolol as per cardio - continue hydralazine HYPOTHYROIDISM - continue levothyroxine DVT PROPHYLAXIS - on Coumadin CODE STATUS FULL CODE Consultants: Cardio Nephro Current Inpatient Medications: Current Inpatient Medications Medications (Trade) Dose Ordered Sig/Mehdi Route Start Time Stop Time Status Last Admin Dose Admin Acetaminophen (Tylenol Tab) 650 mg Q4H PRN PO 01/25/17 17:45 02/24/17 17:44 Ondansetron HCl (Zofran Inj) 4 mg Q6H PRN IV 01/25/17 17:45 02/24/17 17:44 Albuterol Sulfate (Ventolin 0.083% 2.5MG/3ML Neb) 2.5 mg Q4H PRN INH 01/25/17 18:00 02/24/17 17:59 Bumetanide (Bumex Tab) 1 mg DAILY PO 01/26/17 09:00 02/25/17 08:59 01/26/17 08:33 1 MG Calcitriol (Rocaltrol Cap) 0.25 mcg MoWeFr@0900 PO 01/28/17 09:00 02/27/17 08:59 Salmeterol Xinafoate/ Fluticasone (Advair Diskus 250/50 Inh) 1 puff BID INH 01/25/17 21:00 02/24/17 20:59 01/26/17 08:32 1 PUFF Fluticasone Propionate (Flonase Nasal [place]) 2 sprays BID PAULIE 01/25/17 21:00 02/24/17 20:59 01/26/17 08:32 2 SPRAYS Gabapentin (Neurontin Cap) 300 mg DAILY@1200 PO 01/26/17 12:00 02/25/17 11:59 Gabapentin (Neurontin Tab) 600 mg AMHS PO 01/25/17 21:00 02/24/17 20:59 01/26/17 08:47 600 MG Hydralazine HCl (Apresoline Tab) 10 mg BID PO 01/25/17 21:00 02/24/17 20:59 01/26/17 08:33 10 MG Levothyroxine Sodium (Synthroid Tab) 75 mcg DAILYBB PO 01/26/17 06:00 02/25/17 06:59 01/26/17 05:21 75 MCG Montelukast Sodium (Singulair Tab) 10 mg DAILY PO 01/26/17 09:00 02/25/17 08:59 01/26/17 08:48 10 MG Oxybutynin Chloride (Ditropan-Xl Tab) 5 mg DAILY PO 01/26/17 09:00 02/25/17 08:59 01/26/17 08:34 5 MG Pantoprazole Sodium (Protonix Tab) 40 mg DAILY PO 01/26/17 09:00 02/25/17 08:59 01/26/17 08:47 40 MG Prednisone (PredniSONE TAB) 20 mg Taper DAILY PO 01/26/17 09:00 02/07/17 08:59 01/26/17 08:48 20 MG Senna (Senokot Tab) 8.6 mg QAM PO 01/26/17 09:00 02/25/17 08:59 01/26/17 08:48 8.6 MG Ferrous Sulfate (Feosol Tab) 325 mg BID PO 01/25/17 21:00 02/24/17 20:59 01/26/17 08:34 325 MG Pravastatin Sodium (Pravachol Tab) 80 mg QPM PO 01/25/17 21:00 02/24/17 20:59 01/25/17 22:11 80 MG Miscellaneous Information (Order Awaiting Action) 1 ea QS N/A 01/26/17 00:00 02/25/17 00:00
[2017-01-26] MEDS ORDERED: GUAIFENESIN 200 MG TAB PO ONE (10:30)
[2017-01-26] MEDS: GABAPENTIN 300 MG CAP PO SCH (12:03)
--- NOTE | 2017-01-26 13:21 | CARDIOLOGY CONSULTATION ---
DATE OF CONSULTATION: 01/26/2017 PRIMARY CARE PHYSICIAN: Dr. Jodi South. REFERRING: Dr. Maura Quesada. INDICATIONS: Sinus bradycardia. HISTORY OF PRESENT ILLNESS: The patient is a 71-year-old female, recently hospitalized at [facility] in December 2016 with acute respiratory distress, hypoxia, superimposed on chronic obstructive lung disease. Her past medical history is notable for paroxysmal atrial flutter, status post flutter ablation in July 2015, paroxysmal atrial fibrillation with tachybrady syndrome, status post prior pacemaker insertion in 2009 with pacemaker removed due to bacteremia and questionable vegetation on lead in 2010. Underlying medical problems include chronic renal insufficiency, cor pulmonale with pulmonary hypertension secondary to severe obstructive lung disease with repair of prior atrial septal defect. Underlying issues include diabetes mellitus, hypothyroidism, prior cardiac catheterization in 2007 with demonstration of mild coronary atherosclerosis. The patient as described was hospitalized at [facility] January 11 through January 17, who was referred yesterday after outpatient routine laboratory studies demonstrated elevated potassium. She was then referred for inpatient referral. Telemetry during ER initial presentation demonstrated mild bradycardia, heart rate is 40-50 and without symptomatic complaint. The patient notes respiratory status had been improving, still with a small amount of productive clear sputum. She denies any chest pains, dizziness, lightheadedness, syncope or near syncope. She was noted to be mildly lethargic at home and due to elevated potassium, was referred for ER evaluation. She currently is awake and without complaint, "ate 2 breakfasts." Denies any chest pain or discomfort. Notes no fevers, chills or sweats. Notes no change in mildly productive cough. Does wear oxygen at home with 3 liters nasal cannula, which patient feels she has been faithful to. Notes no unexplained fevers or infections. Notes no melena, hematochezia, dysuria or hematuria. Is usually up around in her home to a small degree. Does dishes, etc. Notes no specific limitations in such. Appetite and weight per patient have been stable, though patient is only a fair historian. ALLERGIES: AMOXICILLIN, CLARITHROMYCIN, LEVOFLOXACIN, OMEPRAZOLE, QUINOLONES, RANITIDINE, SULFAMETHOXAZOLE, AND TRIMETHOPRIM. MEDICATIONS: Prior to admission, per report included Bumex 1 mg p.o. daily, calcitriol 1 capsule Saturday, Saturday and Saturday, Aricept 10 mg at bedtime, ferrous sulfate 1 tablet b.i.d., Advair and Flonase inhalers, gabapentin 300 mg daily and 600 mg at bedtime, hydralazine 10 mg b.i.d., levothyroxine 75 mcg p.o. daily, metoprolol succinate 12.5 mg p.o. daily, Singulair 10 mg p.o. daily, oxybutynin ER 5 mg p.o. daily, Protonix 40 mg p.o. daily, pravastatin 80 mg p.o. daily, prednisone taper, warfarin 2 mg daily, oxygen 3 liters nasal cannula. PAST SURGICAL HISTORY: Notable for prior thyroidectomy, appendectomy, atrial septal defect repair, past right nephrectomy, tonsillectomy, pacemaker implantation in 2009 with pacemaker explantation in 2010. FAMILY HISTORY: Not notable for heart disease. SOCIAL HISTORY: The patient is a prior tobacco user, though discontinued in 2004. She lives with family routinely. PHYSICAL EXAMINATION: VITAL SIGNS: Heart rate is 50, blood pressure is 157/60. HEENT: Normocephalic, atraumatic. Nares without discharge. Throat was clear. NECK: Thin. There is no distinct jugular venous distention. LUNGS: Reveal scattered crackles basilar, few scattered wheeze on forced expiration and cough. CARDIOVASCULAR: Regular with distant heart sounds. There is no S3 gallop. ABDOMEN: Soft, nontender. There is no palpable hepatosplenomegaly. There is no hepatojugular reflux. EXTREMITIES: Without cyanosis or clubbing. There is no peripheral edema. There are intact distal pulses. DATA: Laboratory studies: White cell count 6.5, hemoglobin is 9.8, hematocrit is 31.4. Sodium is 144, potassium is 5.3, chloride is 105, bicarb is 35, BUN is 50, and creatinine is 1.1. Troponin on presentation was 0.02. Chest x-ray reveals no infiltrate or edema with mild cardiomegaly. Electrocardiogram demonstrates sinus rhythm with atrial ectopy and atrial bigeminy on tracing this morning with bifascicular block, right bundle branch, left anterior fascicular block. EKG on presentation demonstrates sinus bradycardia, rate 44 with persistent right bundle branch block. IMPRESSION: Complex 71-year-old female with underlying history of lung disease, past tachybrady syndrome, presents now due to elevated laboratory studies demonstrating high potassium during outpatient evaluation. There were some concerns regarding mild lethargy, but no overt cardiac symptoms or complaints. Bradycardia appears to be at baseline. We would recommend resuming Toprol-XL 12.5 mg per day, given past history of tachyarrhythmias, currently asymptomatic state. She is to remain anticoagulated with warfarin. Would discontinue Aricept and potassium maybe is being driven by prednisone dosing. Would consider reducing dose as pulmonary status allows. Examination does not suggest significant volume overload despite elevated BNP. Would not increase diuretics. Continue outpatient followups as scheduled.
[2017-01-26] MEDS: GUAIFENESIN 200 MG TAB PO SCH ×2 (14:00→21:47)
[2017-01-26] MEDS: WARFARIN SOD 3 MG TAB PO SCH (16:47)
[2017-01-26] MEDS: PRAVASTATIN SOD 40 MG TAB PO SCH (21:47)
[2017-01-27] VITALS (7 sets, daily range): BP systolic 138–164; BP diastolic 51–70; PULSE 53–64; TEMP 36.5–37.2; O2SAT 94–98
[2017-01-27] MEDS ORDERED: COUGH DROP (SUGAR FREE) LOZ 24 LOZ/1 BOX PO PRN (04:45)
[2017-01-27] MEDS ORDERED: NURSING DECISION MEDICATION ORDER SCH (04:45)
[2017-01-27] MEDS: LEVOTHYROXINE 75 MCG TAB PO SCH (04:47)
[2017-01-27] MEDS: GUAIFENESIN 200 MG TAB PO SCH ×3 (04:47→21:03)
[2017-01-27] MEDS: HydrALAZINE 10 MG TAB PO SCH ×2 (04:48→21:02)
[2017-01-27 06:20] LABS: HEMATOCRIT 30.3 % (37-47); MEAN CELL VOLUME 94.4 fL (80-100); MEAN CORPUSCULAR HEMOGLOBIN 29.9 pg (25-34); MEAN CORPUSCULAR HGB CONC 31.7 g/dl (32-36); MEAN PLATELET VOLUME 11.7 fL (7.4-10.4); PLATELET COUNT 148 K/uL (130-400); RED BLOOD COUNT 3.21 M/uL (4.2-5.4); WHITE BLOOD COUNT 6.23 K/uL (4.8-10.8)
[2017-01-27 06:28] LABS: INR 2.2 (0.9-1.1); PROTHROMBIN TIME (PATIENT) 24.5 SECONDS (9.0-12.0)
[2017-01-27 06:51] LABS: CREATININE 1.3 mg/dl (0.60-1.20)
[2017-01-27 06:52] LABS: BUN/CREATININE RATIO 37.4 (10-20); CALCIUM 8.4 mg/dl (8.5-10.1); POTASSIUM 4.9 mmol/L (3.5-5.1)
--- NOTE | 2017-01-27 07:46 | Nephrology Progress Note ---
Nephrology Progress Note Date of Service: Jan 27, 2017. Subjective 71 yo female with ckd stage 3 with creatinine in the low 1s who presented with bradycardia and hyperkalemia. k levels have trended down. pt comfortable. good appetite. relatively asymptomatic. walking around yesterday with walker. Objective Date Time Temp Pulse Resp B/P Pulse Ox O2 Delivery O2 Flow Rate FiO2 01/27/17 04:09 36.5 64 20 164/64 97 Nasal Cannula 3.0 01/27/17 04:00 95 Nasal Cannula 3.0 01/26/17 23:59 98 Nasal Cannula 3.0 01/26/17 23:19 36.7 49 16 136/74 98 Nasal Cannula 3.0 01/26/17 20:00 95 Nasal Cannula 3.0 01/26/17 19:30 36.3 51 22 134/77 95 Nasal Cannula 3.0 01/26/17 16:00 96 Nasal Cannula 2.0 01/26/17 15:17 36.8 65 22 136/76 92 Nasal Cannula 3.0 01/26/17 12:00 96 Nasal Cannula 2.0 01/26/17 11:26 36.4 57 20 130/46 95 Nasal Cannula 2.0 01/26/17 08:00 95 Nasal Cannula 2.0 01/26/17 07:45 36.7 50 20 157/60 95 Nasal Cannula 2.0 Physical Exam: General-aaox3 Eyes-no scleral icterus ENT-mmm Neck-supple Lungs-+end expiratory wheeze Heart-james Abdomen-bs+ s/nt/nd Extremities-+1 edema Neuro-nonfocal Current Inpatient Medications Medications (Trade) Dose Ordered Sig/Mehdi Route Start Time Stop Time Status Last Admin Dose Admin Acetaminophen (Tylenol Tab) 650 mg Q4H PRN PO 01/25/17 17:45 02/24/17 17:44 Ondansetron HCl (Zofran Inj) 4 mg Q6H PRN IV 01/25/17 17:45 02/24/17 17:44 Albuterol Sulfate (Ventolin 0.083% 2.5MG/3ML Neb) 2.5 mg Q4H PRN INH 01/25/17 18:00 02/24/17 17:59 Bumetanide (Bumex Tab) 1 mg DAILY PO 01/26/17 09:00 02/25/17 08:59 01/26/17 08:33 1 MG Calcitriol (Rocaltrol Cap) 0.25 mcg MoWeFr@0900 PO 01/28/17 09:00 02/27/17 08:59 Salmeterol Xinafoate/ Fluticasone (Advair Diskus 250/50 Inh) 1 puff BID INH 01/25/17 21:00 02/24/17 20:59 01/26/17 21:45 1 PUFF Fluticasone Propionate (Flonase Nasal [place]) 2 sprays BID PAULIE 01/25/17 21:00 02/24/17 20:59 01/26/17 21:45 2 SPRAYS Gabapentin (Neurontin Cap) 300 mg DAILY@1200 PO 01/26/17 12:00 02/25/17 11:59 01/26/17 12:03 300 MG Gabapentin (Neurontin Tab) 600 mg AMHS PO 01/25/17 21:00 02/24/17 20:59 01/26/17 21:48 600 MG Hydralazine HCl (Apresoline Tab) 10 mg BID PO 01/25/17 21:00 02/24/17 20:59 01/27/17 04:48 10 MG Levothyroxine Sodium (Synthroid Tab) 75 mcg DAILYBB PO 01/26/17 06:00 02/25/17 06:59 01/27/17 04:47 75 MCG Montelukast Sodium (Singulair Tab) 10 mg DAILY PO 01/26/17 09:00 02/25/17 08:59 01/26/17 08:48 10 MG Oxybutynin Chloride (Ditropan-Xl Tab) 5 mg DAILY PO 01/26/17 09:00 02/25/17 08:59 01/26/17 08:34 5 MG Pantoprazole Sodium (Protonix Tab) 40 mg DAILY PO 01/26/17 09:00 02/25/17 08:59 01/26/17 08:47 40 MG Prednisone (PredniSONE TAB) 20 mg Taper DAILY PO 01/26/17 09:00 02/07/17 08:59 01/26/17 08:48 20 MG Senna (Senokot Tab) 8.6 mg QAM PO 01/26/17 09:00 02/25/17 08:59 01/26/17 08:48 8.6 MG Ferrous Sulfate (Feosol Tab) 325 mg BID PO 01/25/17 21:00 02/24/17 20:59 01/26/17 21:47 325 MG Pravastatin Sodium (Pravachol Tab) 80 mg QPM PO 01/25/17 21:00 02/24/17 20:59 01/26/17 21:47 80 MG Miscellaneous Information (Order Awaiting Action) 1 ea QS N/A 01/26/17 00:00 02/25/17 00:00 Guaifenesin (Organidin Nr Tab) 200 mg Q8 PO 01/26/17 14:00 02/25/17 13:59 01/27/17 04:47 200 MG Warfarin Sodium (Coumadin Tab) 3 mg DAILY@16 PO 01/26/17 16:00 02/25/17 15:59 01/26/17 16:47 3 MG Menthol ([place]ke) 1 keke Q2H PRN PO 01/27/17 04:45 02/26/17 04:44 Last 24 Hours Test 01/27/17 06:05 White Blood Count 6.23 K/uL Red Blood Count 3.21 M/uL Hemoglobin 9.6 g/dL Hematocrit 30.3 % Mean Corpuscular Volume 94.4 fL Mean Corpuscular Hemoglobin 29.9 pg Mean Corpuscular Hemoglobin Concent 31.7 g/dl RDW Standard Deviation 59.1 fL RDW Coefficient of Variation 17.1 % Platelet Count 148 K/uL Mean Platelet Volume 11.7 fL Prothrombin Time 24.5 SECONDS Prothromb Time International Ratio 2.2 Sodium Level 143 mmol/L Potassium Level 4.9 mmol/L Chloride Level 101 mmol/L Carbon Dioxide Level 37 mmol/L Anion Gap 5.0 mmol/L Blood Urea Nitrogen 49 mg/dl Creatinine 1.30 mg/dl Est Creatinine Clear Calc Drug Dose 35.2 ml/min Estimated GFR () 47.5 Estimated GFR (Non- 41.0 BUN/Creatinine Ratio 37.4 Random Glucose 92 mg/dl Calcium Level 8.4 mg/dl Assessment & Plan ckd stage 3-pts creatinine int he past was 1.5 to 1.8. has been below her baseline now and doing very well from that standpoint. volume status also very good for her. would continue current diuretics. Hyperkalemia-may have been exacerbated by the prednisone. could also be dietary indiscretion. reviewed high k foods to avoid and k levels have trended down. would recheck bmp as outpt in a week. OK from renal perspective to go home once medically cleared by hospitalist.
[2017-01-27] MEDS: FLUTICASONE PROPIONATE NA SPR 16 GM BTL NAE SCH ×2 (09:06→21:01)
[2017-01-27] MEDS: FLUTICASONE/SALMETEROL 250/50 (ADVAIR) 14 PUFF/1 INHALER INH SCH ×2 (09:06→21:01)
[2017-01-27] MEDS: FERROUS SULFATE 325 MG TAB PO SCH ×2 (09:07→21:03)
[2017-01-27] MEDS: OXYBUTYNIN CHLORIDE 5 MG TABCR PO SCH (09:07)
[2017-01-27] MEDS: BUMETANIDE 1 MG TAB PO SCH (09:07)
[2017-01-27] MEDS: SENNA 8.6 MG TAB PO SCH (09:08)
[2017-01-27] MEDS: PANTOprazole SOD 40 MG TAB PO SCH (09:08)
[2017-01-27] MEDS: GABAPENTIN 600 MG TAB PO SCH ×2 (09:08→21:02)
[2017-01-27] MEDS: MONTELUKAST SOD 10 MG TAB PO SCH (09:09)
[2017-01-27] MEDS ORDERED: METOPROLOL SUCC 25MG EXT REL TAB PO ONE (11:00)
--- NOTE | 2017-01-27 11:15 | Progress Note ---
Medicine Progress Note Date & Time of Visit: Jan 27, 2017 at 11:09. Subjective Pt was seen and examined sitting in bed with no distress Pt said that she feeling better today denies any chest pain, palpitation, dizziness Objective Last 8 Hrs Date Time Temp Pulse Resp B/P Pulse Ox O2 Delivery O2 Flow Rate FiO2 01/27/17 08:00 Nasal Cannula 3.0 01/27/17 07:59 36.9 59 20 158/62 98 Nasal Cannula 3.0 01/27/17 04:09 36.5 64 20 164/64 97 Nasal Cannula 3.0 01/27/17 04:00 95 Nasal Cannula 3.0 Physical Exam: General- no acute distress Head- atraumatic Eyes- PERRL, EOMI ENT- oropharynx clear Neck- supple, no JVD Lungs- No wheezing, no crackles Heart- bradycardia, no murmur Abdomen- normal bowel sounds, soft Extremities-no calf tenderness, +edema Neuro- alert, oriented, PERRL, EOMI; no facial palsy Skin- warm & dry Laboratory Results: Last 24 Hours Test 01/27/17 06:05 White Blood Count 6.23 K/uL Red Blood Count 3.21 M/uL Hemoglobin 9.6 g/dL Hematocrit 30.3 % Mean Corpuscular Volume 94.4 fL Mean Corpuscular Hemoglobin 29.9 pg Mean Corpuscular Hemoglobin Concent 31.7 g/dl RDW Standard Deviation 59.1 fL RDW Coefficient of Variation 17.1 % Platelet Count 148 K/uL Mean Platelet Volume 11.7 fL Prothrombin Time 24.5 SECONDS Prothromb Time International Ratio 2.2 Sodium Level 143 mmol/L Potassium Level 4.9 mmol/L Chloride Level 101 mmol/L Carbon Dioxide Level 37 mmol/L Anion Gap 5.0 mmol/L Blood Urea Nitrogen 49 mg/dl Creatinine 1.30 mg/dl Est Creatinine Clear Calc Drug Dose 35.2 ml/min Estimated GFR () 47.5 Estimated GFR (Non- 41.0 BUN/Creatinine Ratio 37.4 Random Glucose 92 mg/dl Calcium Level 8.4 mg/dl Assessment & Plan HYPERKALEMIA IN THE SETTING OF CKD STAGE IV -Creatine on admission 5.7 - EKG this morning showed sinus with PAC -Received calcium and bicarb in ED, -Creatine today 4.9 - Nephro on board -Stable from nephro standpoint to discharge -Will check BMP in 1 week CKD WITH STAGE 4 Creatine stable Avoid nephrotoxic agents Nephrology on board BRADYCARDIA, HX PAROXYSMAL AFIB - during previous admission patient had runs of nonsustained VT and atrial tachycardia with HR dropping into the 40s at times - per cardiology, low dose metoprolol was continued due to intermittent tachy arrhythmias - 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 - Case discussed with Cardiology that consider to restart the metoprolol and d/ c the Aricept due to the bradycardia - Had a pacemaker placed, 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 - Received Coumadin 3 mg yesterday, INR 2.2 today - Continue metoprolol as per cardio - Stable from cardio standpoint to discharge - continue PT/INR CHRONIC HYPOXIC RESPIRATORY FAILURE - Multifactorial due to COPD, Diastolic CHF (Diastolic), EDAC with chronic issues - Cor pulmonale, Obesity hypoventilation, chronic aspiration, pulmonary hypertension - saturating well on her chronic 3L, lower extremity edema at baseline - continue prednisone taper taper dose - continue Bumex - stable HTN - BP elevated -Metoprolol resumed as per cardio - continue hydralazine HYPOTHYROIDISM - continue levothyroxine DVT PROPHYLAXIS - on Coumadin CODE STATUS FULL CODE Consultants: Cardio Nephro Current Inpatient Medications: Current Inpatient Medications Medications (Trade) Dose Ordered Sig/Mehdi Route Start Time Stop Time Status Last Admin Dose Admin Acetaminophen (Tylenol Tab) 650 mg Q4H PRN PO 01/25/17 17:45 02/24/17 17:44 Ondansetron HCl (Zofran Inj) 4 mg Q6H PRN IV 01/25/17 17:45 02/24/17 17:44 Albuterol Sulfate (Ventolin 0.083% 2.5MG/3ML Neb) 2.5 mg Q4H PRN INH 01/25/17 18:00 02/24/17 17:59 Bumetanide (Bumex Tab) 1 mg DAILY PO 01/26/17 09:00 02/25/17 08:59 01/27/17 09:07 1 MG Calcitriol (Rocaltrol Cap) 0.25 mcg MoWeFr@0900 PO 01/28/17 09:00 02/27/17 08:59 Salmeterol Xinafoate/ Fluticasone (Advair Diskus 250/50 Inh) 1 puff BID INH 01/25/17 21:00 02/24/17 20:59 01/27/17 09:06 1 PUFF Fluticasone Propionate (Flonase Nasal [place]) 2 sprays BID PAULIE 01/25/17 21:00 02/24/17 20:59 01/27/17 09:06 2 SPRAYS Gabapentin (Neurontin Cap) 300 mg DAILY@1200 PO 01/26/17 12:00 02/25/17 11:59 01/26/17 12:03 300 MG Gabapentin (Neurontin Tab) 600 mg AMHS PO 01/25/17 21:00 02/24/17 20:59 01/27/17 09:08 600 MG Hydralazine HCl (Apresoline Tab) 10 mg BID PO 01/25/17 21:00 02/24/17 20:59 01/27/17 04:48 10 MG Levothyroxine Sodium (Synthroid Tab) 75 mcg DAILYBB PO 01/26/17 06:00 02/25/17 06:59 01/27/17 04:47 75 MCG Montelukast Sodium (Singulair Tab) 10 mg DAILY PO 01/26/17 09:00 02/25/17 08:59 01/27/17 09:09 10 MG Oxybutynin Chloride (Ditropan-Xl Tab) 5 mg DAILY PO 01/26/17 09:00 02/25/17 08:59 01/27/17 09:07 5 MG Pantoprazole Sodium (Protonix Tab) 40 mg DAILY PO 01/26/17 09:00 02/25/17 08:59 01/27/17 09:08 40 MG Prednisone (PredniSONE TAB) 20 mg Taper DAILY PO 01/26/17 09:00 02/07/17 08:59 01/27/17 09:08 20 MG Senna (Senokot Tab) 8.6 mg QAM PO 01/26/17 09:00 02/25/17 08:59 01/27/17 09:08 8.6 MG Ferrous Sulfate (Feosol Tab) 325 mg BID PO 01/25/17 21:00 02/24/17 20:59 01/27/17 09:07 325 MG Pravastatin Sodium (Pravachol Tab) 80 mg QPM PO 01/25/17 21:00 02/24/17 20:59 01/26/17 21:47 80 MG Miscellaneous Information (Order Awaiting Action) 1 ea QS N/A 01/26/17 00:00 02/25/17 00:00 Guaifenesin (Organidin Nr Tab) 200 mg Q8 PO 01/26/17 14:00 02/25/17 13:59 01/27/17 04:47 200 MG Warfarin Sodium (Coumadin Tab) 3 mg DAILY@16 PO 01/26/17 16:00 02/25/17 15:59 01/26/17 16:47 3 MG Menthol (Nice Annalise) 1 annalise Q2H PRN PO 01/27/17 04:45 02/26/17 04:44 Metoprolol Succinate (Toprol Xl Tab) 12.5 mg QAM PO 01/28/17 09:00 02/27/17 08:59
[2017-01-27] MEDS: GABAPENTIN 300 MG CAP PO SCH (11:44)
[2017-01-27] MEDS: WARFARIN SOD 3 MG TAB PO SCH (15:26)
[2017-01-27] MEDS: PRAVASTATIN SOD 40 MG TAB PO SCH (21:03)
[2017-01-28 00:12] VITALS: BP 173/67; PULSE 51; TEMP 36.8; O2SAT 99
[2017-01-28 03:06] VITALS: BP 176/70; PULSE 52; TEMP 36.4; O2SAT 98
[2017-01-28 04:00] VITALS: O2SAT 95
[2017-01-28] MEDS: LEVOTHYROXINE 75 MCG TAB PO SCH (05:33)
[2017-01-28] MEDS: GUAIFENESIN 200 MG TAB PO SCH (05:34)
--- NOTE | 2017-01-28 07:04 | Clinical Documentation Query ---
REBEKAH Shirley : CLINICAL DOCUMENTATION QUERY Patient is a 71 year female admitted with hyperkalemia in the setting of CKD stage IV. Progress notes include the following: "HYPERKALEMIA IN THE SETTING OF CKD STAGE IV -Creatine on admission 5.7 - EKG this morning showed sinus with PAC -Received calcium and bicarb in ED, -Creatine today 4.9 - Nephro on board -Stable from nephro standpoint to discharge -Will check BMP in 1 week CKD WITH STAGE 4 Creatine stable Avoid nephrotoxic agents Nephrology on board" It is assumed that the word "creatine" was inadvertently used in place of "potassium". 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 Please clarify as clinically appropriate. In your clinical opinion is this patient being managed for: ( ) Hyperkalemia ( ) Other explanation of clinical findings (Please Explain) ( ) Unable to determine (Please Define) ( ) Need to Discuss ( ) Not Agree The medical record reflects the following clinical findings, treatment, and risk factors. Clinical Indicators: As above Treatment: Calcium, bicarbonate, nephrology consult, serial chemistries Risk Factors: Dietary indiscretion, prednisone, CKD stage IV Please clarify and document your clinical opinion in the progress notes and discharge summary. Terms such as "probable", "suspected", "likely", "questionable", "possible", or "still to be ruled out" are acceptable. IF IN AGREEMENT, YOU MUST DOCUMENT ABOVE DIAGNOSTIC STATEMENT IN DAILY PROGRESS NOTES AND DISCHARGE SUMMARY. This document is not part of the patient's record. Thank You, Bright Mendes, RN [phone]
[2017-01-28 07:24] VITALS: BP 166/79; PULSE 52; TEMP 37; O2SAT 93
[2017-01-28] MEDS: FLUTICASONE/SALMETEROL 250/50 (ADVAIR) 14 PUFF/1 INHALER INH SCH (08:41)
[2017-01-28] MEDS: PANTOprazole SOD 40 MG TAB PO SCH (08:42)
[2017-01-28] MEDS: FLUTICASONE PROPIONATE NA SPR 16 GM BTL NAE SCH (08:42)
[2017-01-28] MEDS: FERROUS SULFATE 325 MG TAB PO SCH (08:43)
[2017-01-28] MEDS: OXYBUTYNIN CHLORIDE 5 MG TABCR PO SCH (08:43)
[2017-01-28] MEDS: BUMETANIDE 1 MG TAB PO SCH (08:43)
[2017-01-28] MEDS: GABAPENTIN 600 MG TAB PO SCH (08:43)
[2017-01-28] MEDS: MONTELUKAST SOD 10 MG TAB PO SCH (08:43)
[2017-01-28] MEDS: SENNA 8.6 MG TAB PO SCH (08:44)
[2017-01-28] MEDS: HydrALAZINE 10 MG TAB PO SCH (08:44)
[2017-01-28] MEDS ORDERED: METOPROLOL SUCC 25MG EXT REL TAB PO SCH (09:00)
[2017-01-28] MEDS ORDERED: CALCITRIOL 0.25 MCG CAP PO SCH (09:00)
[2017-01-28 10:46] VITALS: BP 148/62; PULSE 53; TEMP 36.7; O2SAT 95
--- NOTE | 2017-01-28 11:21 | Progress Note ---
Medicine Progress Note Date & Time of Visit: Jan 28, 2017 at 11:07. Subjective Pt was seen and examined Lying in bed comfortable with no distress Pt said that she feels fine she said that her cough is slightly improved denies any chest pain, palpitation and sob Objective Last 8 Hrs Date Time Temp Pulse Resp B/P Pulse Ox O2 Delivery O2 Flow Rate FiO2 01/28/17 08:00 Nasal Cannula 3.0 01/28/17 07:24 37.0 52 20 166/79 93 Nasal Cannula 3.0 01/28/17 04:00 95 Nasal Cannula 3.0 Physical Exam: General- no acute distress Head- atraumatic Eyes- PERRL, EOMI ENT- oropharynx clear Neck- supple, no JVD Lungs- No wheezing, no crackles Heart- bradycardia, no murmur Abdomen- normal bowel sounds, soft Extremities-no calf tenderness, +edema Neuro- alert, oriented, PERRL, EOMI; no facial palsy Skin- warm & dry Assessment & Plan HYPERKALEMIA IN THE SETTING OF CKD STAGE IV -Creatine on admission 5.7 - EKG this morning showed sinus with PAC -Received calcium and bicarb in ED, -Creatine today 4.9 - Nephro on board -Stable from nephro standpoint to discharge -Will check BMP in 1 week - stable CKD WITH STAGE 4 Creatine stable Avoid nephrotoxic agents Nephrology on board BRADYCARDIA, HX PAROXYSMAL AFIB - during previous admission patient had runs of nonsustained VT and atrial tachycardia with HR dropping into the 40s at times - per cardiology, low dose metoprolol was continued due to intermittent tachy arrhythmias - 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 - Case discussed with Cardiology that consider to restart the metoprolol and d/ c the Aricept due to the bradycardia - Had a pacemaker placed, 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 - Received Coumadin 3 mg yesterday, INR 2.2 today - Continue metoprolol as per cardio - Stable from cardio standpoint to discharge - continue PT/INR CHRONIC HYPOXIC RESPIRATORY FAILURE - Multifactorial due to COPD, Diastolic CHF (Diastolic), EDAC with chronic issues - Cor pulmonale, Obesity hypoventilation, chronic aspiration, pulmonary hypertension - saturating well on her chronic 3L, lower extremity edema at baseline - continue prednisone taper taper dose - continue Bumex - stable HTN - BP elevated -Metoprolol resumed as per cardio - continue hydralazine HYPOTHYROIDISM - continue levothyroxine DVT PROPHYLAXIS - on Coumadin CODE STATUS FULL CODE Consultants: Cardio Nephro Current Inpatient Medications: Current Inpatient Medications Medications (Trade) Dose Ordered Sig/Mehdi Route Start Time Stop Time Status Last Admin Dose Admin Acetaminophen (Tylenol Tab) 650 mg Q4H PRN PO 01/25/17 17:45 02/24/17 17:44 Ondansetron HCl (Zofran Inj) 4 mg Q6H PRN IV 01/25/17 17:45 02/24/17 17:44 Albuterol Sulfate (Ventolin 0.083% 2.5MG/3ML Neb) 2.5 mg Q4H PRN INH 01/25/17 18:00 02/24/17 17:59 Bumetanide (Bumex Tab) 1 mg DAILY PO 01/26/17 09:00 02/25/17 08:59 01/28/17 08:43 1 MG Calcitriol (Rocaltrol Cap) 0.25 mcg MoWeFr@0900 PO 01/28/17 09:00 02/27/17 08:59 01/28/17 08:43 0.25 MCG Salmeterol Xinafoate/ Fluticasone (Advair Diskus 250/50 Inh) 1 puff BID INH 01/25/17 21:00 02/24/17 20:59 01/28/17 08:41 1 PUFF Fluticasone Propionate (Flonase Nasal [place]) 2 sprays BID PAULIE 01/25/17 21:00 02/24/17 20:59 01/28/17 08:42 2 SPRAYS Gabapentin (Neurontin Cap) 300 mg DAILY@1200 PO 01/26/17 12:00 02/25/17 11:59 01/27/17 11:44 300 MG Gabapentin (Neurontin Tab) 600 mg AMHS PO 01/25/17 21:00 02/24/17 20:59 01/28/17 08:43 600 MG Hydralazine HCl (Apresoline Tab) 10 mg BID PO 01/25/17 21:00 02/24/17 20:59 01/28/17 08:44 10 MG Levothyroxine Sodium (Synthroid Tab) 75 mcg DAILYBB PO 01/26/17 06:00 02/25/17 06:59 01/28/17 05:33 75 MCG Montelukast Sodium (Singulair Tab) 10 mg DAILY PO 01/26/17 09:00 02/25/17 08:59 01/28/17 08:43 10 MG Oxybutynin Chloride (Ditropan-Xl Tab) 5 mg DAILY PO 01/26/17 09:00 02/25/17 08:59 01/28/17 08:43 5 MG Pantoprazole Sodium (Protonix Tab) 40 mg DAILY PO 01/26/17 09:00 02/25/17 08:59 01/28/17 08:42 40 MG Prednisone (PredniSONE TAB) 20 mg Taper DAILY PO 01/26/17 09:00 02/07/17 08:59 01/28/17 08:44 20 MG Senna (Senokot Tab) 8.6 mg QAM PO 01/26/17 09:00 02/25/17 08:59 01/28/17 08:44 8.6 MG Ferrous Sulfate (Feosol Tab) 325 mg BID PO 01/25/17 21:00 02/24/17 20:59 01/28/17 08:43 325 MG Pravastatin Sodium (Pravachol Tab) 80 mg QPM PO 01/25/17 21:00 02/24/17 20:59 01/27/17 21:03 80 MG Miscellaneous Information (Order Awaiting Action) 1 ea QS N/A 01/26/17 00:00 02/25/17 00:00 Guaifenesin (Organidin Nr Tab) 200 mg Q8 PO 01/26/17 14:00 02/25/17 13:59 01/28/17 05:34 200 MG Warfarin Sodium (Coumadin Tab) 3 mg DAILY@16 PO 01/26/17 16:00 02/25/17 15:59 01/27/17 15:26 3 MG Menthol (Nice Annalise) 1 annalise Q2H PRN PO 01/27/17 04:45 02/26/17 04:44 Metoprolol Succinate (Toprol Xl Tab) 12.5 mg QAM PO 01/28/17 09:00 02/27/17 08:59 01/28/17 08:42 12.5 MG
[2017-01-28 11:24] VITALS: BP 166/79; PULSE 52; TEMP 37; O2SAT 93
--- NOTE | 2017-01-28 11:28 | Discharge Instructions ---
Discharge Instructions Date of Service Jan 28, 2017. Admission Reason for Admission: Hyperkalemia Discharge Discharge Diagnosis / Problem: CHRONIC HYPOXIC RESPIRATORY FAILURE , CKD stage 4, BRADYCARDIA, P. Afib Discharge Goals Goal(s): Decrease discomfort, Improve function, Improve disease control Activity Recommendations Activity Limitations: resume your previous activity (as tolerated) . Instructions / Follow-Up Instructions / Follow-Up Follow up appointment with your primary care provider Dr. South on 01/31 at 2: 10 Check BMP in 1 week Follow up with the coumadin clinic INR was 2.2 on 01/27/17 Current Hospital Diet Patient's current hospital diet: AHA Diet (Heart Healthy), Low Sodium Diet (2gm Na) Discharge Diet Recommended Diet: AHA Diet (Heart Healthy), Low Sodium Diet (2gm Na) Pending Studies Studies pending at discharge: no Laboratory Results Hemoglobin A1c Test 01/10/17 00:17 Range/Units Estimated Average Glucose 117 mg/dl Hemoglobin A1c 5.7 H 4.5-5.6 % Medical Emergencies . Who to Call and When: Medical Emergencies: If at any time you feel your situation is an emergency, please call 911 immediately. . Non-Emergent Contact Non-Emergency issues call your: Primary Care Provider Call Non-Emergent contact if: you have any medication questions . . "Provider Documentation" section prepared by Maura Quesada. VTE Core Measure Inpt VTE Proph given/why not?: Warfarin (Coumadin)
[2017-01-28] MEDS ORDERED: PRD5 PO (11:40)
[2017-01-28] MEDS ORDERED: GUAI1TAB68 PO (11:40)
[2017-01-28] MEDS: GABAPENTIN 300 MG CAP PO SCH (11:41)
--- NOTE | 2017-02-01 11:17 | Discharge Summary ---
Discharge Summary Date of Service Feb 01, 2017. Discharge Summary Admission Date: Jan 25, 2017 at 19:18 Discharge Date: Jan 28, 2017 Discharge Disposition: Home Principal Diagnosis: Hyperkalemia Secondary Diagnoses/Problems: CHRONIC HYPOXIC RESPIRATORY FAILURE CKD stage 4 BRADYCARDIA P. Afib Hypothyroidism HTN Procedures: CHEST ONE VIEW PORTABLE CLINICAL HISTORY: CHEST PAIN dyspnea COMPARISON STUDY: 01/16/2017 FINDINGS: Unchanging prominence the central pulmonary vasculature. Moderate stable cardiomegaly. Slight prominence of pulmonary vasculature. Diaphragms smooth. IMPRESSION: 1. Stable cardiomegaly. 2. Stable findings of pulmonary arterial hypertension. 3. No acute infiltrate. Electronically signed by: Luis Fernando Keene M.D. 01/25/2017 4:12 PM Dictated Date/Time: 01/25/2017 4:11 PM Consultations: Cardio Nephro Medication Reconciliation New Medications: Guaifenesin (Organ-I Nr) 200 Mg Tab 200 MG PO Q8 PRN for Cough for 7 Days, #21 TAB Prednisone (Prednisone) 5 Mg Tab 20 MG PO UD for 10 Days, TAB take 4 tab for 1 day, then 3 tab for 3 days, then 2 tab for 3 days, 1 tab for 3 days Continued Medications: Albuterol Sulf (Proventil 0.083% 2.5MG/3ML) 2.5 Mg/3 Ml Nebu 2.5 MG INH Q4H PRN for SOB/Wheezing, EA Albuterol Sulfate (Proair Respiclick) 108 Mcg/Act Aer 2 PUFFS INH QID PRN for Shortness of Breath Bumetanide (Bumetanide) 1 Mg Tab 1 MG PO DAILY for 30 Days, #30 TABS Calcitriol (Calcitriol) 0.25 Mcg Cap 1 CAP PO MWF, #13 Donepezil Hydrochloride (Aricept) 10 Mg Tab 10 MG PO HS Ferrous Sulfate (Iron) 325 Mg Tab 1 TAB PO BID Fluticasone Prop/Salmeterol (Advair Diskus 250/50 60 Dose) 1 Ea Aerp 1 PUFF INH BID, INHALER Fluticasone Propionate (Nasal) (Flonase Allergy Relief) 50 Mcg/Act Spr 1 SPRAY PAULIE BID Gabapentin (Neurontin) 300 Mg Cap 300 MG PO DAILY, CAP lunch time Gabapentin (Neurontin) 300 Mg Cap 600 MG PO AMHS, CAP Hydralazine HCl (Hydralazine HCl) 10 Mg Tab 10 MG PO BID, #60 Levothyroxine Sodium (Levothyroxine Sodium) 75 Mcg Tab 75 MCG PO DAILY, #30 Metoprolol Succinate (Metoprolol Succinate ER) 25 Mg Tabcr 12.5 MG PO DAILY, #15 Montelukast Sodium (Singulair) 10 Mg Tab 1 TAB PO DAILY for 90 Days, #90 TAB 1 Refill Nitroglycerin (Nitrostat) 0.4 Mg Tab 0.4 MG SL PRN UD, #25 Oxybutynin Chloride (Oxybutynin Chloride Er) 5 Mg Tab 5 MG PO DAILY, #30 Oxygen (Oxygen) Gas 2-3 LITERS NA CONTINOUS Pantoprazole (Protonix) 40 Mg Tab 40 MG PO DAILY, #30 TAB Pravastatin Sodium (Pravastatin Sodium) 80 Mg Tab 80 MG PO QPM Senna (Senna Lax) 8.6 Mg Tab 8.6 MG PO QAM for 30 Days, #30 TAB Umeclidinium [place] (Incruse Ellipta) 62.5 Mcg/Inh Inh 1 INHA INH DAILY Warfarin Sod (Coumadin) 2 Mg Tab 2 MG PO DAILY@16 for 30 Days, TAB Discontinued Medications: Prednisone Tab (Prednisone) 10 Mg Tab 10 MG PO UD, #50 TAB currently on taper 20mg and taper by 5mg every 3 days Admission Information HPI (per Admitting provider): 71 year old female who was sent to the ER by home health nursing for evaluation of lethargy. Patient was recently admitted to [facility] 01/09 - 01/17 for acute on chronic respiratory failure due to bilateral pneumonia, COPD, and acute on chronic diastolic CHF. Patient completed course of Ertapenem and Vanco was d/c' d as MRSA nasal swab was negative. Patient was also treated with IV Lasix and steroids. She was discharged on a prolonged steroid taper. Patient reports she has been feeling since being home from the hospital. She had routine labs drawn yesterday as an outpatient that showed hyperkalemia. She came to the ER and K+ was near normal so she was discharged home. Today the home health nurse reports she was lethargic and difficult to arouse. She is currently awake and oriented. Per prior admission, daughter had reported that the patient has episodes of sleepiness and difficult to arouse. Patient has swelling to her lower extremities which she reports is chronic and at baseline. Breathing has been good. She reports a persistent cough from being in the hospital but it is improving. She denies chest pain, lightheadedness, dizziness, or syncopal events. No abdominal pain nausea, vomiting, or diarrhea. She denies any urinary symptoms. No fever or chills. In the ER, patient is found to have K+ 5.7. She is also intermittent bradycardic which she is asymptomatic. She was given IV calcium and bicarb. Physical Exam (per Admitting): General Appearance: no apparent distress Head: normocephalic Eyes: normal inspection ENT: hearing grossly normal Neck: supple, no JVD Respiratory/Chest: no respiratory distress, + crackles (BL bases) Cardiovascular: + bradycardia (normal rate), + pertinent finding (+2 pitting edema BLLE) Abdomen/GI: normal bowel sounds, non tender, soft Extremities/Musculoskelatal: normal inspection, no calf tenderness Neurologic/Psych: no motor/sensory deficits, alert, normal mood/affect, oriented x 3 Skin: normal color, warm/dry Hospital Course HYPERKALEMIA IN THE SETTING OF CKD STAGE IV -Creatine on admission 5.7 - EKG this morning showed sinus with PAC -Received calcium and bicarb in ED, -Creatine today 4.9 - Nephro on board -Stable from nephro standpoint to discharge -Will check BMP in 1 week - stable CKD WITH STAGE 4 Creatine stable Avoid nephrotoxic agents Nephrology on board BRADYCARDIA, HX PAROXYSMAL AFIB - during previous admission patient had runs of nonsustained VT and atrial tachycardia with HR dropping into the 40s at times - per cardiology, low dose metoprolol was continued due to intermittent tachy arrhythmias - 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 - Case discussed with Cardiology that consider to restart the metoprolol and d/ c the Aricept due to the bradycardia - Had a pacemaker placed, 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 - Received Coumadin 3 mg yesterday, INR 2.2 today - Continue metoprolol as per cardio - Stable from cardio standpoint to discharge - continue PT/INR CHRONIC HYPOXIC RESPIRATORY FAILURE - Multifactorial due to COPD, Diastolic CHF (Diastolic), EDAC with chronic issues - Cor pulmonale, Obesity hypoventilation, chronic aspiration, pulmonary hypertension - saturating well on her chronic 3L, lower extremity edema at baseline - continue prednisone taper taper dose - continue Bumex - stable HTN - BP elevated -Metoprolol resumed as per cardio - continue hydralazine HYPOTHYROIDISM - continue levothyroxine DVT PROPHYLAXIS - on Coumadin CODE STATUS FULL CODE Total time spent on discharge = 35 minutes This includes examination of the patient, discharge planning, medication reconciliation, and communication with other providers. Discharge Instructions Discharge Instructions Date of Service Jan 28, 2017. Admission Reason for Admission: Hyperkalemia Discharge Discharge Diagnosis / Problem: CHRONIC HYPOXIC RESPIRATORY FAILURE , CKD stage 4, BRADYCARDIA, P. Afib Discharge Goals Goal(s): Decrease discomfort, Improve function, Improve disease control Activity Recommendations Activity Limitations: resume your previous activity (as tolerated) . Instructions / Follow-Up Instructions / Follow-Up Follow up appointment with your primary care provider Dr. South on 01/31 at 2: 10 Check BMP in 1 week Follow up with the coumadin clinic INR was 2.2 on 01/27/17 Current Hospital Diet Patient's current hospital diet: AHA Diet (Heart Healthy), Low Sodium Diet (2gm Na) Discharge Diet Recommended Diet: AHA Diet (Heart Healthy), Low Sodium Diet (2gm Na) Pending Studies Studies pending at discharge: no Laboratory Results Hemoglobin A1c Test 01/10/17 00:17 Range/Units Estimated Average Glucose 117 mg/dl Hemoglobin A1c 5.7 H 4.5-5.6 % Medical Emergencies . Who to Call and When: Medical Emergencies: If at any time you feel your situation is an emergency, please call 911 immediately. . Non-Emergent Contact Non-Emergency issues call your: Primary Care Provider Call Non-Emergent contact if: you have any medication questions . . "Provider Documentation" section prepared by Maura Quesada. VTE Core Measure Inpt VTE Proph given/why not?: Warfarin (Coumadin) Additional Copies To Jodi South D.O.
[2017-06-11] MEDS ORDERED: DXY100 PO (12:17)
[2017-06-11] MEDS ORDERED: CEFU500T16 PO (12:17)
[2017-08-11] MEDS ORDERED: DONE10TA12 PO (05:56)
[2017-08-11] MEDS ORDERED: GABA-113 PO ×2 (08:30)
[2017-08-11] MEDS ORDERED: UMEC1INH PO (12:20)
[2017-08-11] MEDS ORDERED: CLR10 PO (12:20)
[2017-08-11] MEDS ORDERED: BRIN1SUS OPB (12:23)
[2017-08-11] MEDS ORDERED: ALBINS/ INH (12:57)
[2017-08-11] MEDS ORDERED: ALBU18002 INH (12:57)
[2017-08-11] MEDS ORDERED: PRAV80TA2 PO (13:37)
[2017-08-11] MEDS ORDERED: OXYB5TAB PO (13:37)
[2017-08-11] MEDS ORDERED: CALC1CAP36 PO (13:38)
[2017-08-11] MEDS ORDERED: ADVIN25/60 INH (13:41)
[2017-08-11] MEDS ORDERED: TPRSR/25 PO (13:57)
[2017-08-11] MEDS ORDERED: LEVO75TA5 PO (14:15)
[2017-08-11] MEDS ORDERED: HYDR-4322 PO (14:15)
[2017-08-11] MEDS ORDERED: FERR1TAB23 PO (14:15)
== END 2017-01-28 13:40 | disposition home health service (06) | DRG 641 ==
LOC: ENRESERVDT → ENRESERVTM → EDBD 12:14 → C.EDC 12:15 → C.2E 19:18
PROVIDERS: ADMIT Hospitalist; ATTEND Internal Medicine
DX: E87.5 Hyperkalemia (principal); N18.4 Chronic kidney disease, stage 4 (severe); J96.10 Chronic respiratory failure, unspecified whether with hypoxia or hypercapnia; I50.30 Unspecified diastolic (congestive) heart failure; E66.2 Morbid (severe) obesity with alveolar hypoventilation; J44.9 Chronic obstructive pulmonary disease, unspecified; T38.0X5A Adverse effect of glucocorticoids and synthetic analogues, initial encounter; R00.1 Bradycardia, unspecified; K21.9 Gastro-esophageal reflux disease without esophagitis; I25.10 Atherosclerotic heart disease of native coronary artery without angina pectoris; Z95.0 Presence of cardiac pacemaker; I48.0 Paroxysmal atrial fibrillation; I12.9 Hypertensive chronic kidney disease with stage 1 through stage 4 chronic kidney disease, or unspecified chronic kidney disease; Z79.01 Long term (current) use of anticoagulants; Z90.5 Acquired absence of kidney; Z87.891 Personal history of nicotine dependence; I27.2 Other secondary pulmonary hypertension; E03.9 Hypothyroidism, unspecified; E11.21 Type 2 diabetes mellitus with diabetic nephropathy; Y92.009 Unspecified place in unspecified non-institutional (private) residence as the place of occurrence of the external cause; R79.89 Other specified abnormal findings of blood chemistry; M79.89 Other specified soft tissue disorders; I48.91 Unspecified atrial fibrillation; Z79.899 Other long term (current) drug therapy

== ENCOUNTER 2017-05-03 11:16 | Emergency (ER) | payer OTHER ==
[~2017-05-03 11:16] MED LIST changes: +GUAI1TAB68 PO; +PRD5 PO; -PRED10TA PO
[2017-05-03 11:22] VITALS: TEMP 36.4; Ht 149.9 cm
[2017-05-03] MEDS ORDERED: WARF5TAB90 PO (12:20)
[2017-05-03] MEDS ORDERED: TRAMADOL HCL 50 MG TAB PO STA (12:25)
--- NOTE | 2017-05-03 12:32 | EMERGENCY ROOM VISIT NOTE ---
History Report prepared by Kaitlynn: Yumiko Perdomo Under the Supervision of: Dr. Grady Beltre M.D. First contact with patient: 12:13 Chief Complaint: BACK PAIN Stated Complaint: LOWER BACK PAIN History of Present Illness The patient is a 71 year old female who presents to the Emergency Room with complaints of severe constant lower back pain beginning 2 days ago. The patient states that she has a history of lower back surgery 2 years ago and she notes that she is having pain at the site of her surgery. She complains of pain radiating into her legs that stops at her knee. She denies any fall or injury. She notes that she was not able to sleep last night due to her pain. The patient reports that she is always on oxygen and has a history of COPD. She states that she was on Fentanyl patches that she decided to stop using them. She notes that she is on Coumadin and Prednisone for her cold. Source of History: patient Onset: 2 days ago Position: back (lower) Symptom Intensity: severe Timing: constant Note: She complains of pain radiating into her legs that stops at her knee. She denies any fall. Review of Systems All systems have been listed, reviewed, and are negative other than those previously mentioned. Please see Additional Medical History Sheet. 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 Surgical Problems: (1) H/O thyroidectomy (2) History of appendectomy (3) S/P MVR (mitral valve repair) Family History Heart disease Hypertension Lung disease Social History Smoking Status: Never Smoker Alcohol Use: none Marital Status: single 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) Occupation Status: disabled Current/Historical Medications Scheduled Brinzolamide Oph (Azopt Oph), 1 DROP OPB TID Bumetanide (Bumetanide), 1 MG PO DAILY Calcitriol (Calcitriol), 0.25 MCG PO DAILY Docusate Sodium (Colace), 100 MG PO BID Donepezil Hydrochloride (Aricept), 10 MG PO HS Ferrous Sulfate (Iron), 1 TAB PO BID Fluticasone Prop/Salmeterol (Advair Diskus 250/50 60 Dose), 1 PUFF INH BID Fluticasone Propionate (Nasal) (Flonase Allergy Relief), 1 SPRAY PAULIE BID Gabapentin (Neurontin), 300 MG PO DAILY Gabapentin (Neurontin), 600 MG PO [facility] Home O2 Therapy (Oxygen), 2-3 LITERS NA CONTINOUS Hydralazine HCl (Hydralazine HCl), 10 MG PO BID Levothyroxine Sodium (Levothyroxine Sodium), 75 MCG PO DAILY Loratadine (Claritin), 10 MG PO DAILY Montelukast Sodium (Singulair), 1 TAB PO DAILY Nitroglycerin (Nitrostat), 0.4 MG SL PRN UD Oxybutynin Chloride (Oxybutynin Chloride Er), 5 MG PO DAILY Pravastatin Sodium (Pravastatin Sodium), 80 MG PO QPM Umeclidinium Sterrett (Incruse Ellipta), 1 INHA PO DAILY Warfarin Sodium (Coumadin), 2.5-5 MG PO UD Scheduled PRN Albuterol Sulf (Proventil 0.083% 2.5MG/3ML), 2.5 MG INH Q4H PRN for SOB/Wheezing Albuterol Sulfate (Proair Respiclick), 2 PUFFS INH QID PRN for Shortness of Breath Oxycodone Immediate Rel Tab (Roxicodone Ir), 1 TAB PO Q4H PRN for Severe Pain Allergies Coded Allergies: Levofloxacin (Verified Allergy, Intermediate, HIVES, 01/25/17) Quinolones (Verified Allergy, Intermediate, HIVES, 01/25/17) Ranitidine (Verified Allergy, Intermediate, HIVES, 01/25/17) Sulfamethoxazole (Verified Allergy, Intermediate, HIVES, 01/25/17) Trimethoprim (Verified Allergy, Intermediate, HIVES, 01/25/17) Clarithromycin (Verified Allergy, Mild, HIVES, CAN TAKE ZITHROMAX W/O PROB , 01/25/17) Amoxicillin (Verified Allergy, Unknown, HIVES, 01/25/17) Omeprazole (Verified Allergy, Unknown, HAS HAD PROTONIX, 01/25/17) Physical Exam Vital Signs Date Time Temp Pulse Resp B/P (MAP) Pulse Ox O2 Delivery O2 Flow Rate FiO2 05/03/17 14:26 93 05/03/17 14:21 60 20 05/03/17 14:02 178/90 05/03/17 13:51 50 94 05/03/17 13:33 200/72 05/03/17 13:25 201/78 05/03/17 13:21 46 15 94 05/03/17 13:19 46 05/03/17 13:19 45 18 201/78 94 05/03/17 13:16 05/03/17 11:22 36.4 46 24 123/67 94 Nasal Cannula 2.0 Physical Exam GENERAL: Patient awake, alert, oriented x 3. Patient follows commands. Patient does not appear toxic. Patient is adequately hydrated and well- nourished. SKIN: No erythema, pallor, cyanosis or rash HEENT: Normal head, pupils equal, reactive to light and accommodation. Oral cavity and posterior pharynx appear normal. Neck: Without adenopathy, no neck vein distention. LUNGS: Clear to auscultation. Faint wheezes. No rales, no rhonchi. HEART: No murmurs. No gallops. No rubs ABDOMEN: Soft, nontender. EXTREMITIES: No signs of trauma. No pedal or pretibial edema. No calf or thigh tenderness. Left hip ecchymosis over left posterior iliac spine. An old well healed scar over lumbar spine, no signs of infection. NEUROLOGIC: Cranial nerves II-XII within normal limits. No gross motor sensory function deficits. Medical Decision & Procedures ER Provider Diagnostic Interpretation: CT results are interpretations by the radiologist and per my review. LUMBAR SPINE CT FINDINGS: Findings consistent with a posterior laminectomy and fusion at L3, L4, and L5. Vertebral body alignment is anatomic. Vertebral body stature is normal. L1-L2: No evidence for disc herniation or spinal stenosis. L2-L3: Mild lateral disc bulges. Mild narrowing of the neuroforamina bilaterally. No impact upon the thecal sac. L3-L4: Posterior laminectomy and fusion. Patent neural foramina. L4-L5: Posterior laminectomy and fusion. No evidence for disc herniation. L5-S1: No evidence for disc herniation IMPRESSION: 1. Posterior laminectomy and fusion from L3 through L5. 2. No major compromise of the spinal canal or neural foramina. 3. Mild lateral disc bulge L2-L3 with mild narrowing of the neuroforamina bilaterally. Electronically signed by: Luis Fernando Keene M.D. 05/03/2017 1:23 PM Dictated Date/Time: 05/03/2017 1:16 PM Laboratory Results Test 05/03/17 14:30 Prothrombin Time 34.9 SECONDS (9.0-12.0) Prothromb Time International Ratio 3.1 (0.9-1.1) Laboratory results as stated above per my review. Medications Administered Medications (Trade) Dose Ordered Sig/Mehdi Route Start Time Stop Time Status Last Admin Dose Admin Tramadol HCl (Ultram Tab) 50 mg NOW STAT PO 05/03/17 12:25 05/03/17 12:27 DC 05/03/17 12:35 50 MG Oxycodone HCl (Roxicodone Immediate Rel Tab) 5 mg NOW STAT PO 05/03/17 13:34 05/03/17 13:36 DC 05/03/17 13:49 5 MG ED Course 1213: Past medical records reviewed. The patient was evaluated in room B11. A complete history and physical examination was performed. 1225: Ultram Tab 50mg PO. 1331: I reevaluated the patient and she is having some more pain. 1334: Oxycodone HCl 5mg PO. 1453: Upon reevaluation, the patient appeared to have improvement of her symptoms. I discussed today's findings with the patient. She verbalized agreement of the treatment plan. The patient was discharged home. Medical Decision Differential diagnosis includes degenerative joint disease, discitis, ruptured nucleolus palposis, sciatica, back contusion. Medication Reconciliation: I attest that I have personally reviewed the patient' s current medication list. Blood Pressure Screening: Patient was found to have an elevated blood pressure and was referred to their primary doctor for recheck and further treatment. CT was performed and reveals no significant changes from the past. She has had a past laminectomy. There appears to be no significant impingement on the spinal cord at this time. I believe that she can safely return home. The patient is currently on prednisone for lung problems The patient's pain is consistent with sciatica. She was given pain medication here and a prescription for the same. INR is therapeutic. [place] Drug Monitoring Program Search Results: patient reviewed within database, no issues identified Impression Primary Impression: Sciatica Scribe Attestation The scribe's documentation has been prepared under my direction and personally reviewed by me in its entirety. I confirm that the note above accurately reflects all work, treatment, procedures, and medical decision making performed by me. Departure Information Dispostion Home / Self-Care Prescriptions Oxycodone Immediate Rel Tab (ROXICODONE IR) 5 Mg Tab 1 TAB PO Q4H Y for Severe Pain, #20 TAB Prov: Grady Beltre M.D. 05/03/17 Docusate Sodium (COLACE) 100 Mg Cap 100 MG PO BID, #60 CAP Prov: Grady Beltre M.D. 05/03/17 Referrals Jodi South D.O. (PCP) Forms HOME CARE DOCUMENTATION FORM, IMPORTANT VISIT INFORMATION Patient Instructions ED Sciatica, My [facility] Additional Instructions 1 OxyIR every 4 hours as needed for moderate to severe pain. 1 Colace twice a day. Continue all of your current medications as prescribed. Follow-up with your family physician within the next 10 days.
--- NOTE | 2017-05-03 13:24 | DIAGNOSTIC IMAGING REPORT ---
LUMBAR SPINE CT CT DOSE: 915.70 mGy.cm HISTORY: Back pain severe back pain TECHNIQUE: Multiaxial CT images of the lumbar spine were performed and reformatted in the sagittal and coronal plane without the use of contrast. COMPARISON: None. FINDINGS: Findings consistent with a posterior laminectomy and fusion at L3, L4, and L5. Vertebral body alignment is anatomic. Vertebral body stature is normal. L1-L2: No evidence for disc herniation or spinal stenosis. L2-L3: Mild lateral disc bulges. Mild narrowing of the neuroforamina bilaterally. No impact upon the thecal sac. L3-L4: Posterior laminectomy and fusion. Patent neural foramina. L4-L5: Posterior laminectomy and fusion. No evidence for disc herniation. L5-S1: No evidence for disc herniation IMPRESSION: 1. Posterior laminectomy and fusion from L3 through L5. 2. No major compromise of the spinal canal or neural foramina. 3. Mild lateral disc bulge L2-L3 with mild narrowing of the neuroforamina bilaterally. Electronically signed by: Luis Fernando Keene M.D. 05/03/2017 1:23 PM Dictated Date/Time: 05/03/2017 1:16 PM
[2017-05-03] MEDS ORDERED: OXYCODONE HCL IR 5 MG TAB (IMMEDIATE RELEASE) PO STA (13:34)
[2017-05-03] MEDS ORDERED: DOCU-94 PO (13:41)
[2017-05-03] MEDS ORDERED: OXYC1TAB3 PO (13:41)
[2017-05-03 15:14] LABS: INR 3.1 (0.9-1.1); PROTHROMBIN TIME (PATIENT) 34.9 SECONDS (9.0-12.0)
[2017-05-03 15:43] VITALS: BP 188/66; PULSE 46; O2SAT 95
[2017-06-11] MEDS ORDERED: DXY100 PO (12:17)
[2017-06-11] MEDS ORDERED: CEFU500T16 PO (12:17)
[2017-08-11] MEDS ORDERED: DONE10TA12 PO (05:56)
[2017-08-11] MEDS ORDERED: GABA-113 PO ×2 (08:30)
[2017-08-11] MEDS ORDERED: CLR10 PO (12:20)
[2017-08-11] MEDS ORDERED: UMEC1INH PO (12:20)
[2017-08-11] MEDS ORDERED: BRIN1SUS OPB (12:23)
[2017-08-11] MEDS ORDERED: ALBINS/ INH (12:57)
[2017-08-11] MEDS ORDERED: ALBU18002 INH (12:57)
[2017-08-11] MEDS ORDERED: OXYB5TAB PO (13:37)
[2017-08-11] MEDS ORDERED: PRAV80TA2 PO (13:37)
[2017-08-11] MEDS ORDERED: CALC1CAP36 PO (13:38)
[2017-08-11] MEDS ORDERED: ADVIN25/60 INH (13:41)
[2017-08-11] MEDS ORDERED: TPRSR/25 PO (13:57)
[2017-08-11] MEDS ORDERED: HYDR-2977 PO (14:15)
[2017-08-11] MEDS ORDERED: LEVO75TA5 PO (14:15)
[2017-08-11] MEDS ORDERED: FERR1TAB23 PO (14:15)
[2017-08-11] MEDS ORDERED: PANT40TA2 PO (15:32)
== END 2017-05-03 15:45 | disposition home or self-care (01) ==
LOC: C.EDB 11:17
DX: M54.30 Sciatica, unspecified side (principal); I48.91 Unspecified atrial fibrillation; D64.9 Anemia, unspecified; Q21.1 Atrial septal defect; N18.4 Chronic kidney disease, stage 4 (severe); J44.9 Chronic obstructive pulmonary disease, unspecified; K21.9 Gastro-esophageal reflux disease without esophagitis; E78.5 Hyperlipidemia, unspecified; I12.9 Hypertensive chronic kidney disease with stage 1 through stage 4 chronic kidney disease, or unspecified chronic kidney disease; E03.9 Hypothyroidism, unspecified; Z95.0 Presence of cardiac pacemaker; I50.9 Heart failure, unspecified; Z86.14 Personal history of Methicillin resistant Staphylococcus aureus infection; I49.5 Sick sinus syndrome; Z82.49 Family history of ischemic heart disease and other diseases of the circulatory system; Z83.6 Family history of other diseases of the respiratory system; Z99.81 Dependence on supplemental oxygen; Z79.01 Long term (current) use of anticoagulants; Z79.899 Other long term (current) drug therapy

== ENCOUNTER 2017-06-08 12:59 | Inpatient (IN) | payer OTHER ==
[~2017-06-08] VITALS: Ht 149.9 cm; Wt 70.5 kg
[~2017-06-08 12:59] MED LIST changes: -CMD2 PO; +DOCU-94 PO; -GUAI1TAB68 PO; +OXYC1TAB3 PO; -PANT1TAB48 PO; -PRD5 PO; -SNK PO; -TPRSR/25 PO; -UMEC1INH INH; +WARF5TAB90 PO
[2017-06-08] MEDS ORDERED: ACETAMINOPHEN 500 MG TAB PO ONE (13:20)
[2017-06-08] MEDS ORDERED: SODIUM CHLORIDE 0.9% 1000ML 1,000 ML IV STA (14:05)
[2017-06-08 14:25] LABS: INR 2.1 (0.9-1.1); PARTIAL THROMBOPLASTIN RATIO 1.1; PROTHROMBIN TIME (PATIENT) 22.8 SECONDS (9.0-12.0)
[2017-06-08] MEDS ORDERED: ERTAPENEM IV 1 GM in SODIUM CHLOR 0.9% AD-VAN 50ML IV ONE (14:30)
[2017-06-08 14:33] LABS: BUN/CREATININE RATIO 26.2 (10-20); CALCIUM 9.9 mg/dl (8.5-10.1); CREATININE 1.7 mg/dl (0.60-1.20); POTASSIUM 4.1 mmol/L (3.5-5.1)
[2017-06-08 14:35] LABS: BASO % 0.3 %; BASO ABS # 0.02 K/uL (0-0.2); COMPLETE YES; EOS % 0.7 %; HEMATOCRIT 39.5 % (37-47); IG% 0.1 %; LARGE PLATELETS 1+; LYMPH ABS # 1.05 K/uL (1.2-3.4); MEAN CELL VOLUME 100.3 fL (80-100); MEAN CORPUSCULAR HGB CONC 31.9 g/dl (32-36); MEAN PLATELET VOLUME 13.2 fL (7.4-10.4); MONO % 6.3 %; NEUT % 78.6 %; PLATELET COUNT 111 K/uL (130-400); PLT ESTIMATE DECREASED; RED BLOOD COUNT 3.94 M/uL (4.2-5.4); WHITE BLOOD COUNT 7.48 K/uL (4.8-10.8)
--- NOTE | 2017-06-08 14:35 | EMERGENCY ROOM VISIT NOTE ---
History Report prepared by Kaitlynn: Bertin Gaytan Under the Supervision of: Dr. Bright Maurer M.D. First contact with patient: 13:58 Chief Complaint: ILLNESS Stated Complaint: PROBABLE SEIZURE History of Present Illness The patient is a 71 year old female who presents to the Emergency Room with complaints of two resolved seizures occurring prior to arrival. The patient's family states that the patient the patient was found shaking, and she was unresponsive. The family states that the she then went blue and stopped breathing for a few minutes. The family then had to perform CPR on her, and then the EMS helped them. The patient states that she is feeling better now, and she does not have any headache, chest pain, shortness of breath, urinary symptoms. She states that she is having some abdominal pain and a sore throat. The patient denies any history of seizures, and he is currently on Coumadin. She is not diabetic. Source of History: patient, family Onset: prior to arrival Position: other (global) Quality: other (seizure) Timing: resolved Associated Symptoms: + sorethroat, + abdominal pain, No chest pain, No SOB, No urinary symptoms Review of Systems See HPI for pertinent positives & negatives. A total of 10 systems reviewed and were otherwise negative. 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 Nurse's notes were reviewed and I agree with. Family History Heart disease Hypertension Lung disease Social History Smoking Status: Former Smoker Alcohol Use: none Marital Status: single Housing Status: other Occupation Status: disabled Current/Historical Medications Scheduled Brinzolamide Oph (Azopt Oph), 1 DROP OPB TID Bumetanide (Bumetanide), 1 MG PO DAILY Calcitriol (Calcitriol), 0.25 MCG PO DAILY Docusate Sodium (Colace), 100 MG PO BID Donepezil Hydrochloride (Aricept), 10 MG PO HS Ferrous Sulfate (Iron), 1 TAB PO BID Fluticasone Prop/Salmeterol (Advair Diskus 250/50 60 Dose), 1 PUFF INH BID Fluticasone Propionate (Nasal) (Flonase Allergy Relief), 1 SPRAY PAULIE BID Gabapentin (Neurontin), 300 MG PO DAILY Gabapentin (Neurontin), 600 MG PO AMHS Home O2 Therapy (Oxygen), 4 LITERS NA CONTINOUS Hydralazine HCl (Hydralazine HCl), 10 MG PO BID Levothyroxine Sodium (Levothyroxine Sodium), 75 MCG PO DAILY Loratadine (Claritin), 10 MG PO DAILY Metoprolol Succinate (Metoprolol Succinate ER), 12.5 MG PO DAILY Montelukast Sodium (Singulair), 1 TAB PO DAILY Nitroglycerin (Nitrostat), 0.4 MG SL PRN UD Oxybutynin Chloride (Oxybutynin Chloride Er), 5 MG PO DAILY Pravastatin Sodium (Pravastatin Sodium), 80 MG PO QPM Umeclidinium [place] (Incruse Ellipta), 1 INHA PO DAILY Warfarin Sodium (Coumadin), 2.5-5 MG PO UD Scheduled PRN Albuterol Sulf (Proventil 0.083% 2.5MG/3ML), 2.5 MG INH Q4H PRN for SOB/Wheezing Albuterol Sulfate (Proair Respiclick), 2 PUFFS INH QID PRN for Shortness of Breath Allergies Coded Allergies: Levofloxacin (Verified Allergy, Intermediate, HIVES, 01/25/17) Quinolones (Verified Allergy, Intermediate, HIVES, 01/25/17) Ranitidine (Verified Allergy, Intermediate, HIVES, 01/25/17) Sulfamethoxazole (Verified Allergy, Intermediate, HIVES, 01/25/17) Trimethoprim (Verified Allergy, Intermediate, HIVES, 01/25/17) Clarithromycin (Verified Allergy, Mild, HIVES, CAN TAKE ZITHROMAX W/O PROB , 01/25/17) Amoxicillin (Verified Allergy, Unknown, HIVES, 01/25/17) Omeprazole (Verified Allergy, Unknown, HAS HAD PROTONIX, 01/25/17) Physical Exam Vital Signs Date Time Temp Pulse Resp B/P (MAP) Pulse Ox O2 Delivery O2 Flow Rate FiO2 06/08/17 15:21 38.1 65 20 132/68 90 Nasal Cannula 4.0 06/08/17 14:34 76 06/08/17 14:22 38.4 68 20 132/83 90 Nasal Cannula 4.0 06/08/17 13:25 38.2 73 22 167/116 94 Nasal Cannula 4.0 Physical Exam General: Older female non-ill appearing and in no acute distress. Denies any current complaints and on her baseline oxygen. HEENT: Normal cephalic atraumatic. Pupils are equal round and reactive to light. sclerae anicteric. Extraocular movements are intact. Oropharynx is pink with moist mucous membranes. No swelling of the mouth lips or tongue. Neck: Supple with a midline trachea. No meningeal signs or stiffness, no JVD or bruits. No Stridor. Chest: Clear to auscultation bilaterally. No wheezes or rhonchi. No increased work of breathing. Heart: regular rate and rhythm. Abdomen: Minimal diffuse tenderness, soft, nondistended without rebound guarding or rigidity. Extremities: Mild bilateral lower extremity edema. No cyanosis clubbing. No calf tenderness or assymetry Spine/Back. Non tender to palpation. No CVA tenderness Skin: Good turgor without rashes. Neurologic exam: Cranial nerves two through 12 are intact. Motor and sensation are intact and symmetrical throughout. Medical Decision & Procedures ER Provider Diagnostic Interpretation: Radiology results as stated below per my review and radiologist interpretation: HEAD WITHOUT CONTRAST (CT) CT DOSE: 3705.04 mGy.cm HISTORY: Seizure eval for possible seizure TECHNIQUE: Multiaxial CT images of the head were performed without the use of intravenous contrast. Comparison: 07/04/2016 Findings: The mastoid air cells demonstrate chronic sclerosis. This is unchanged.. The calvarium and skull base are intact. The ventricles and sulci are within normal limits. There is no mass, hematoma, midline shift, or acute infarct. Chronic small vessel change unaltered from the prior exam Impression: No acute intracranial abnormality. Age-related chronic small vessel change The above report was generated using voice recognition software. It may contain grammatical, syntax or spelling errors. Electronically signed by: Luis Fernando Keene M.D. 06/08/2017 3:14 PM Dictated Date/Time: 06/08/2017 3:11 PM CHEST ONE VIEW PORTABLE CLINICAL HISTORY: CHEST PAIN dyspnea COMPARISON STUDY: 01/25/2017 FINDINGS: Cardiomegaly slightly increased in the prior study. Prominent central pulmonary vasculature. Slight thickening of the right major fissure. Diaphragms smooth. IMPRESSION: Pulmonary arterial hypertension unchanged. Potential pulmonary vascular congestion versus early congestive failure The above report was generated using voice recognition software. It may contain grammatical, syntax or spelling errors. Electronically signed by: Luis Fernando Keene M.D. 06/08/2017 2:36 PM Dictated Date/Time: 06/08/2017 2:34 PM ABD/PELVIS WITHOUT FOR STONE CT DOSE: HISTORY: Dyspnea eval for infection pain TECHNIQUE: Multiaxial CT images of the abdomen and pelvis were performed without the use of intravenous and oral contrast according to the standard department stone protocol. COMPARISON STUDY: 03/02/2012 FINDINGS: Mild left and to a lesser extent right basilar infiltrative/atelectatic change. Liver spleen and pancreas appear uniform. Right kidney is absent. Left kidney is negative for hydronephrosis or calcification. Gallstones are present within the gallbladder lumen. The bowel pattern is nonobstructive. Several scattered diverticuli are present. No evidence for diverticulitis. Several scattered colonic diverticuli. No evidence for diverticulitis. Postoperative changes of the lumbar spine . Mild bladder wall thickening. Stable postoperative changes right inguinal region. IMPRESSION: 1. Absent right kidney and appendix. 2. Scattered colonic diverticuli with no evidence of diverticulitis. 3. Gallstones. 4. Left and to lesser extent right basilar infiltrative change The above report was generated using voice recognition software. It may contain grammatical, syntax or spelling errors. Electronically signed by: Luis Fernando Keene M.D. 06/08/2017 3:25 PM Dictated Date/Time: 06/08/2017 3:20 PM Laboratory Results 06/08/17 13:50 Red Blood Count 3.94, Mean Corpuscular Volume 100.3, Mean Corpuscular Hemoglobin 32.0, Mean Corpuscular Hemoglobin Concent 31.9, Mean Platelet Volume 13.2, Neutrophils (%) (Auto) 78.6, Lymphocytes (%) (Auto) 14.0, Monocytes (%) ( Auto) 6.3, Eosinophils (%) (Auto) 0.7, Basophils (%) (Auto) 0.3, Neutrophils # ( Auto) 5.88, Lymphocytes # (Auto) 1.05, Monocytes # (Auto) 0.47, Eosinophils # ( Auto) 0.05, Basophils # (Auto) 0.02 06/08/17 13:50 Test 06/08/17 13:17 06/08/17 13:50 06/08/17 13:58 06/08/17 16:11 Urine Color YELLOW Urine Appearance CLEAR (CLEAR) Urine pH 6.5 (4.5-7.5) Urine Specific [place] 1.010 (1.000-1.030) Urine Protein NEG (NEG) Urine Glucose (UA) NEG (NEG) Urine Ketones NEG (NEG) Urine Occult Blood NEG (NEG) Urine Nitrite NEG (NEG) Urine Bilirubin NEG (NEG) Urine Urobilinogen NEG (NEG) Urine Leukocyte Esterase NEG (NEG) Urine WBC (Auto) 0 /hpf (0-5) Urine RBC (Auto) 0-4 /hpf (0-4) Urine Hyaline Casts (Auto) 0 /lpf (0-5) Urine Epithelial Cells (Auto) 0-5 /lpf (0-5) Urine Bacteria (Auto) NEG (NEG) White Blood Count 7.48 K/uL (4.8-10.8) Red Blood Count 3.94 M/uL (4.2-5.4) Hemoglobin 12.6 g/dL (12.0-16.0) Hematocrit 39.5 % (37-47) Mean Corpuscular Volume 100.3 fL (80-100) Mean Corpuscular Hemoglobin 32.0 pg (25-34) Mean Corpuscular Hemoglobin Concent 31.9 g/dl (32-36) Platelet Count 111 K/uL (130-400) Mean Platelet Volume 13.2 fL (7.4-10.4) Neutrophils (%) (Auto) 78.6 % Lymphocytes (%) (Auto) 14.0 % Monocytes (%) (Auto) 6.3 % Eosinophils (%) (Auto) 0.7 % Basophils (%) (Auto) 0.3 % Neutrophils # (Auto) 5.88 K/uL (1.4-6.5) Lymphocytes # (Auto) 1.05 K/uL (1.2-3.4) Monocytes # (Auto) 0.47 K/uL (0.11-0.59) Eosinophils # (Auto) 0.05 K/uL (0-0.5) Basophils # (Auto) 0.02 K/uL (0-0.2) RDW Standard Deviation 53.9 fL (36.4-46.3) RDW Coefficient of Variation 14.8 % (11.5-14.5) Immature Granulocyte % (Auto) 0.1 % Immature Granulocyte # (Auto) 0.01 K/uL (0.00-0.02) Platelet Estimate DECREASED Large Platelets 1+ Prothrombin Time 22.8 SECONDS (9.0-12.0) Prothromb Time International Ratio 2.1 (0.9-1.1) Activated Partial Thromboplast Time 29.2 SECONDS (21.0-31.0) Partial Thromboplastin Ratio 1.1 Anion Gap 6.0 mmol/L (3-11) Est Creatinine Clear Calc Drug Dose 26.1 ml/min Estimated GFR () 34.3 Estimated GFR (Non- 29.6 BUN/Creatinine Ratio 26.2 (10-20) Calcium Level 9.9 mg/dl (8.5-10.1) Total Bilirubin 0.7 mg/dl (0.2-1) Aspartate Amino Transf (AST/SGOT) 26 U/L (15-37) Alanine Aminotransferase (ALT/SGPT) 19 U/L (12-78) Alkaline Phosphatase 49 U/L (45-117) Total Creatine Kinase 74 U/L (26-192) Total Protein 7.6 gm/dl (6.4-8.2) Albumin 3.6 gm/dl (3.4-5.0) Globulin 4.0 gm/dl (2.5-4.0) Albumin/Globulin Ratio 0.9 (0.9-2) Prolactin 7.47 ng/mL Bedside Lactic Acid Venous 2.30 mmol/L (0.90-1.70) Lactic Acid Level 1.3 mmol/L (0.4-2.0) Laboratory studies as stated above per my review. Medications Administered Medications (Trade) Dose Ordered Sig/Mehdi Route Start Time Stop Time Status Last Admin Dose Admin Acetaminophen (Tylenol Tab) 1,000 mg STK-MED ONCE PO 06/08/17 13:20 06/08/17 13:21 DC 06/08/17 13:23 1,000 MG Sodium Chloride 1,000 ml @ 999 mls/hr Q1H1M STAT IV 06/08/17 14:05 06/08/17 15:05 DC 06/08/17 15:18 999 MLS/HR Ertapenem 1 gm/ Sodium Chloride 50 ml @ 100 mls/hr ONE ONCE IV 06/08/17 14:30 06/08/17 14:59 DC 06/08/17 15:18 100 MLS/HR Acetaminophen (Tylenol Tab) 650 mg Q4H PRN PO 06/08/17 16:15 07/08/17 16:14 06/08/17 19:57 650 MG ECG Indication: other (seizure) Rate (beats per minute): 79 Rhythm: normal sinus Findings: PVC (occasional), RBBB, other (No specific ST changes, poor baseline) Comparison ECG Date: 01/27/17 Change: no significant change ED Course 1320: Tylenol Tab 1000mg PO 1358: Past medical records reviewed. The patient was evaluated in room C3, and a complete history and physical examination were performed. 1405: Sodium Chloride 1000 ml @ 999 mls/hr IV 1410: I talked to the pharmacist, and they said that I should order Ertapenem. 1429: I reevaluated the patient, and the patient was doing well 1430: Ertapenem 1gm/ Sodium Chloride 50ml @ 100mls/hr IV 1510: I reassessed the patient, and she was resting comfortably. 1514: I discussed the patient's case with Stefanie Daley. He is going to evaluate the patient for further treatment. Medical Decision Differentials include, but are not limited to; seizure, sepsis, electrolyte or metabolic abnormality, arrhythmia, and cardiac disease. Blood Pressure Screening: Patient was found to have a slightly elevated blood pressure due to circumstances. I do not believe that the patient requires hypertension monitoring. Medication Reconciliation: I attest that I have personally reviewed the patient' s current medication list. This patient comes in as described above. She has a very complex medical history and had an episode where she may have had a seizure today. this the history is vague and she was shaky and it does not sound like she was still somewhat responsive but mumbling. She also has a fever here and it may be more of rigors from sepsis or infection. The family also also started CPR on her although she has no chest pain shortness of breath here. When EMS arrived they did not perform CPR and there is no documented cardiac arrest. She has no headache or neck pain or stiffness or anything to suggest meningitis or encephalitis. Extensive workup was obtained including blood work including blood cultures and lactic acid lactic acid mildly elevated at 2 she says some mild renal insufficiency is slightly worse than normal. Chest x-ray shows some mild congestive changes. She was given IV hydration here but given her cardiac history was given 1 L IV rather than the standard bolus. She seemed to tolerate this well and remained normotensive. I also gave her ertapenem IV, she 's multiple medication allergy and this is broad-spectrum and she's had this before she may need additional further antibiotics while in the hospital. Blood and urine cultures are been obtained. CAT scan of her head is unremarkable CAT scan abdomen shows no acute process there may be some infiltrates in the base of the lungs. It may be a pulmonary source other chest x-ray is clear I do think she needs to be admitted for further treatment and evaluation for possible sepsis/infection as well as potentially cardiac or neurologic event as well. I did consult the [facility] hospitalist and she was seen in the ER. Consults Time Called: [id number] Consulting Physician: Stefanie Daley Returned Call: [phone] I discussed the patient's case with Stefanie Daley. He is going to evaluate the patient for further treatment. Impression Primary Impression: Sepsis Additional Impressions: Pneumonia episode of altered level of consciousness Critical Care Due to the patient's extensive history and evidence to suggest sepsis and CPR being done by the family, I have personally spent greater than 30 minutes of critical care time in the direct management of this patient. This includes bedside care, interpretation of diagnostic studies, and testing, discussion with consultants, patient, and family members, and other required patient management activities. This 30 minutes is in excess of all separately billable procedures. Scribe Attestation The scribe's documentation has been prepared under my direction and personally reviewed by me in its entirety. I confirm that the note above accurately reflects all work, treatment, procedures, and medical decision making performed by me. Departure Information Dispostion Being Evaluated By Hospitalist Referrals Jodi South D.O. (PCP) Patient Instructions My [facility] Problem Qualifiers
[2017-06-08 14:42] LABS: ALB/GLOB RATIO 0.9 (0.9-2); CKMB/CK RATIO 1.2 (0-3.0)
[2017-06-08 14:43] LABS: URINE APPEARANCE CLEAR (CLEAR); URINE BILIRUBIN NEG (NEG); URINE COLOR YELLOW; URINE EPITHELIAL CELL AUTO 0-5 /lpf (0-5); URINE NITRITE NEG (NEG); URINE PH 6.5 (4.5-7.5); UROBILINOGEN NEG (NEG); ZZUR CULT IF INDIC CLEAN CATCH NO
[2017-06-08 14:48] LABS: MANUAL MICROSCOPIC REQUIRED? NO; REVIEW REQ? NO
--- NOTE | 2017-06-08 15:15 | DIAGNOSTIC IMAGING REPORT ---
HEAD WITHOUT CONTRAST (CT) CT DOSE: 3705.04 mGy.cm HISTORY: Seizure eval for possible seizure TECHNIQUE: Multiaxial CT images of the head were performed without the use of intravenous contrast. Comparison: 07/04/2016 Findings: The mastoid air cells demonstrate chronic sclerosis. This is unchanged.. The calvarium and skull base are intact. The ventricles and sulci are within normal limits. There is no mass, hematoma, midline shift, or acute infarct. Chronic small vessel change unaltered from the prior exam Impression: No acute intracranial abnormality. Age-related chronic small vessel change The above report was generated using voice recognition software. It may contain grammatical, syntax or spelling errors. Electronically signed by: Luis Fernando Keene M.D. 06/08/2017 3:14 PM Dictated Date/Time: 06/08/2017 3:11 PM
--- NOTE | 2017-06-08 15:26 | DIAGNOSTIC IMAGING REPORT ---
ABD/PELVIS WITHOUT FOR STONE CT DOSE: HISTORY: Dyspnea eval for infection pain TECHNIQUE: Multiaxial CT images of the abdomen and pelvis were performed without the use of intravenous and oral contrast according to the standard department stone protocol. COMPARISON STUDY: 03/02/2012 FINDINGS: Mild left and to a lesser extent right basilar infiltrative/atelectatic change. Liver spleen and pancreas appear uniform. Right kidney is absent. Left kidney is negative for hydronephrosis or calcification. Gallstones are present within the gallbladder lumen. The bowel pattern is nonobstructive. Several scattered diverticuli are present. No evidence for diverticulitis. Several scattered colonic diverticuli. No evidence for diverticulitis. Postoperative changes of the lumbar spine . Mild bladder wall thickening. Stable postoperative changes right inguinal region. IMPRESSION: 1. Absent right kidney and appendix. 2. Scattered colonic diverticuli with no evidence of diverticulitis. 3. Gallstones. 4. Left and to lesser extent right basilar infiltrative change The above report was generated using voice recognition software. It may contain grammatical, syntax or spelling errors. Electronically signed by: Luis Fernando Keene M.D. 06/08/2017 3:25 PM Dictated Date/Time: 06/08/2017 3:20 PM
--- NOTE | 2017-06-08 15:31 | History and Physical ---
History & Physical Date & Time of Service: Jun 08, 2017 at 15:31 Chief Complaint: Probable Seizure Primary Care Physician: Jodi South D.O. History of Present Illness Source: patient, family Patient is a 71 Yr female with PMH of Afib on chronic anticoagulation, COPD, CKD IV, Hypothyroidism, HLP, Sleep Apnea, Diastolic heart failure and chronic oxygen dependency presents for evaluation of cough, fever and seizure like activity. Patient and the family are poor historians. Discussed with ED physician and reviewed records to obtain history. As per the family, patient has been having cough with clear expectoration associated with fever since 2 days duration. Today she was found to have sudden onset of severe generalized shakiness for about 10 minutes and patient was awake but confused. Later she was unconscious, turned blue and stopped breathing for about 1 minute and a family friend performed CPR on patient and called EMS. Family reports patient was mumbling and they couldn't understand her. Patient is currently oriented and doesn't remember the events well. Family states patient has been having intermittent confusion. Patient reports mild abdominal discomfort earlier today which improved with bowel movement. Denies any history of chest pain, SOB, dizziness, headache, change in vision, urinary symptoms, weakness, wheezing, runny nose, diarrhea, speech problems, facial deformity, Incontinence, tongue bite. 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 CT head showed no acute pathology. Past Medical/Surgical History Medical Problems: (1) Afib Permanent Comment: s/p ablation Status: Chronic (2) Anemia Status: Chronic (3) ASD (atrial septal defect) Permanent Comment: repaired Status: Chronic (4) CKD (chronic kidney disease), stage IV Status: Chronic (5) COPD (chronic obstructive pulmonary disease) Status: Chronic (6) GERD (gastroesophageal reflux disease) Status: Chronic (7) H/O unilateral nephrectomy Permanent Comment: right Status: Chronic (8) Heart disease Permanent Comment: mild CAD cath 2007 Status: Chronic (9) HLD (hyperlipidemia) Status: Chronic (10) HTN (hypertension) Status: Chronic (11) Hypertension Status: Chronic (12) Hypothyroid Status: Chronic (13) Mild left ventricular systolic dysfunction Permanent Comment: EF 45-49% echo 04/2016 Status: Chronic (14) MRSA bacteremia Permanent Comment: in the setting of pacemaker vegetation (08/2011) and discitis (02/2012) Status: Resolved (15) Pacemaker Permanent Comment: removed 2010 due to infection Status: Chronic (16) Right-sided congestive heart failure Status: Chronic (17) Solitary kidney Status: Chronic (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 Surgical Problems: (1) H/O thyroidectomy Status: Chronic (2) History of appendectomy Status: Chronic (3) S/P MVR (mitral valve repair) Status: Chronic Family History Heart disease Hypertension Lung disease Family history: Positive for seizures Social History Smoking Status: Former Smoker Alcohol Use: none Drug Use: none Marital Status: single Housing status: lives with family Occupational Status: disabled Immunizations History of Influenza Vaccine: Yes Influenza Vaccine Date: Oct 06, 2016 History of Tetanus Vaccine?: Yes Tetanus Immunization Date: Jul 08, 2015 History of Pneumococcal: Yes Pneumococcal Date: May 20, 2015 Multi-Drug Resistant Organisms History of MDRO: Yes Type of MDRO: MRSA Allergies Coded Allergies: Levofloxacin (Verified Allergy, Intermediate, HIVES, 01/25/17) Quinolones (Verified Allergy, Intermediate, HIVES, 01/25/17) Ranitidine (Verified Allergy, Intermediate, HIVES, 01/25/17) Sulfamethoxazole (Verified Allergy, Intermediate, HIVES, 01/25/17) Trimethoprim (Verified Allergy, Intermediate, HIVES, 01/25/17) Clarithromycin (Verified Allergy, Mild, HIVES, CAN TAKE ZITHROMAX W/O PROB , 01/25/17) Amoxicillin (Verified Allergy, Unknown, HIVES, 01/25/17) Omeprazole (Verified Allergy, Unknown, HAS HAD PROTONIX, 01/25/17) Home Medications Scheduled Brinzolamide Oph (Azopt Oph), 1 DROP OPB TID Bumetanide (Bumetanide), 1 MG PO DAILY Calcitriol (Calcitriol), 0.25 MCG PO DAILY Docusate Sodium (Colace), 100 MG PO BID Donepezil Hydrochloride (Aricept), 10 MG PO HS Ferrous Sulfate (Iron), 1 TAB PO BID Fluticasone Prop/Salmeterol (Advair Diskus 250/50 60 Dose), 1 PUFF INH BID Fluticasone Propionate (Nasal) (Flonase Allergy Relief), 1 SPRAY PAULIE BID Gabapentin (Neurontin), 300 MG PO DAILY Gabapentin (Neurontin), 600 MG PO AMHS Home O2 Therapy (Oxygen), 4 LITERS NA CONTINOUS Hydralazine HCl (Hydralazine HCl), 10 MG PO BID Levothyroxine Sodium (Levothyroxine Sodium), 75 MCG PO DAILY Loratadine (Claritin), 10 MG PO DAILY Metoprolol Succinate (Metoprolol Succinate ER), 12.5 MG PO DAILY Montelukast Sodium (Singulair), 1 TAB PO DAILY Nitroglycerin (Nitrostat), 0.4 MG SL PRN UD Oxybutynin Chloride (Oxybutynin Chloride Er), 5 MG PO DAILY Pravastatin Sodium (Pravastatin Sodium), 80 MG PO QPM Umeclidinium [place] (Incruse Ellipta), 1 INHA PO DAILY Warfarin Sodium (Coumadin), 2.5-5 MG PO UD Scheduled PRN Albuterol Sulf (Proventil 0.083% 2.5MG/3ML), 2.5 MG INH Q4H PRN for SOB/Wheezing Albuterol Sulfate (Proair Respiclick), 2 PUFFS INH QID PRN for Shortness of Breath Review of Systems See HPI for pertinent positives & negatives. A total of 10 systems reviewed and were otherwise negative. Physical Exam Vital Signs Date Time Temp Pulse Resp B/P (MAP) Pulse Ox O2 Delivery O2 Flow Rate FiO2 06/08/17 15:21 38.1 65 20 132/68 90 Nasal Cannula 4.0 06/08/17 14:34 76 06/08/17 14:22 38.4 68 20 132/83 90 Nasal Cannula 4.0 06/08/17 13:25 38.2 73 22 167/116 94 Nasal Cannula 4.0 General Appearance: WD/WN, no apparent distress Head: normocephalic, atraumatic Eyes: normal inspection, PERRL, EOMI, sclerae normal ENT: normal ENT inspection, hearing grossly normal Neck: supple, trachea midline Respiratory/Chest: chest non-tender, normal breath sounds, + pertinent finding (Few creps at bases) Cardiovascular: regular rate, rhythm, no murmur, + pertinent finding (B.L Edema ) Abdomen/GI: normal bowel sounds, non tender, soft Back: normal inspection Extremities/Musculoskelatal: normal inspection, + pertinent finding (b/l LE edema) 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, no motor/sensory deficits, alert, oriented x 3 Skin: normal color, warm/dry Diagnostics Laboratory Results Results Past 24 Hours Test 06/08/17 13:17 06/08/17 13:50 06/08/17 13:58 Range/Units Urine Color YELLOW Urine Appearance CLEAR CLEAR Urine pH 6.5 4.5-7.5 Urine Specific [place] 1.010 1.000-1.030 Urine Protein NEG NEG Urine Glucose (UA) NEG NEG Urine Ketones NEG NEG Urine Occult Blood NEG NEG Urine Nitrite NEG NEG Urine Bilirubin NEG NEG Urine Urobilinogen NEG NEG Urine Leukocyte Esterase NEG NEG Urine WBC (Auto) 0 0-5 /hpf Urine RBC (Auto) 0-4 0-4 /hpf Urine Hyaline Casts (Auto) 0 0-5 /lpf Urine Epithelial Cells (Auto) 0-5 0-5 /lpf Urine Bacteria (Auto) NEG NEG White Blood Count 7.48 4.8-10.8 K/uL Red Blood Count 3.94 4.2-5.4 M/uL Hemoglobin 12.6 12.0-16.0 g/dL Hematocrit 39.5 37-47 % Mean Corpuscular Volume 100.3 80-100 fL Mean Corpuscular Hemoglobin 32.0 25-34 pg Mean Corpuscular Hemoglobin Concent 31.9 32-36 g/dl Platelet Count 111 130-400 K/uL Mean Platelet Volume 13.2 7.4-10.4 fL Neutrophils (%) (Auto) 78.6 % Lymphocytes (%) (Auto) 14.0 % Monocytes (%) (Auto) 6.3 % Eosinophils (%) (Auto) 0.7 % Basophils (%) (Auto) 0.3 % Neutrophils # (Auto) 5.88 1.4-6.5 K/uL Lymphocytes # (Auto) 1.05 1.2-3.4 K/uL Monocytes # (Auto) 0.47 0.11-0.59 K/uL Eosinophils # (Auto) 0.05 0-0.5 K/uL Basophils # (Auto) 0.02 0-0.2 K/uL RDW Standard Deviation 53.9 36.4-46.3 fL RDW Coefficient of Variation 14.8 11.5-14.5 % Immature Granulocyte % (Auto) 0.1 % Immature Granulocyte # (Auto) 0.01 0.00-0.02 K/uL Platelet Estimate DECREASED Large Platelets 1+ Prothrombin Time 22.8 9.0-12.0 SECONDS Prothromb Time International Ratio 2.1 0.9-1.1 Activated Partial Thromboplast Time 29.2 21.0-31.0 SECONDS Partial Thromboplastin Ratio 1.1 Sodium Level 142 136-145 mmol/L Potassium Level 4.1 3.5-5.1 mmol/L Chloride Level 102 98-107 mmol/L Carbon Dioxide Level 34 21-32 mmol/L Anion Gap 6.0 3-11 mmol/L Blood Urea Nitrogen 45 7-18 mg/dl Creatinine 1.70 0.60-1.20 mg/dl Est Creatinine Clear Calc Drug Dose 26.1 ml/min Estimated GFR () 34.3 Estimated GFR (Non- 29.6 BUN/Creatinine Ratio 26.2 10-20 Random Glucose 96 70-99 mg/dl Calcium Level 9.9 8.5-10.1 mg/dl Total Bilirubin 0.7 0.2-1 mg/dl Aspartate Amino Transf (AST/SGOT) 26 15-37 U/L Alanine Aminotransferase (ALT/SGPT) 19 12-78 U/L Alkaline Phosphatase 49 45-117 U/L Total Creatine Kinase 74 26-192 U/L Creatine Kinase MB 0.9 0.5-3.6 ng/ml Creatine Kinase MB Ratio 1.2 0-3.0 Troponin I 0.056 0-0.045 ng/ml Total Protein 7.6 6.4-8.2 gm/dl Albumin 3.6 3.4-5.0 gm/dl Globulin 4.0 2.5-4.0 gm/dl Albumin/Globulin Ratio 0.9 0.9-2 Bedside Lactic Acid Venous 2.30 0.90-1.70 mmol/L Microbiology Results 06/08/17 Group A Streptococcus Screen, Received Pending 06/08/17 Group A Streptococcus Screen ([facility]), Received Pending Diagnostic Radiology CT head: No acute intracranial abnormality. Age-related chronic small vessel change CXR: Pulmonary arterial hypertension unchanged. Potential pulmonary vascular congestion versus early congestive failure CT ABD: 1. Absent right kidney and appendix. 2. Scattered colonic diverticuli with no evidence of diverticulitis. 3. Gallstones. 4. Left and to lesser extent right basilar infiltrative change Impression Assessment and Plan Patient is a 71 Yr female who presented with fever, cough, seizure like activity , intermittent confusion and ? syncope. Community Acquired Pneumonia: No signs of sepsis Start on Doxycycline and Ceftriaxone Lactate:1.3 Received IVF in ED Get blood cultures Continue Oxygen (On 4L NC at home) Seizure like activity, ? Syncope Family reports intermittent confusion CT head: no acute issues Neurologically no focal deficits Will get MRI brain, ECHO, carotid doppler Neuro checks Consult Neurology Ativan PRN for seizures Prolactin levels: normal Seizure precautions P.Atrial fibrillation: Rate controlled INR:2.1 monitor INR, continue Coumadin Continue metoprolol for rate control Mild elevation of Troponin: In setting of recent CPR, CKD, Diastolic CHF Patient denies chest pain Trend cardiac enzymes repeat EKG, Check ECHO CHRONIC HYPOXIC RESPIRATORY FAILURE COPD: No signs of acute exacerbation continue home inhalers Continue oxygen CKD IV: Cr baseline 1.3 to 1.8 Continue to monitor renal function Cr:1.7 today Chronic Diastolic heart failure: Continue home diuretics Hypothyroidism: Continue Levothyroxine DVT Px: On Coumadin, INR therapeutic Code Status: Full Code Disposition: Monitor in Tele
[2017-06-08] MEDS ORDERED: ACETAMINOPHEN 325 MG TAB PO PRN (16:15)
[2017-06-08] MEDS ORDERED: ONDANSETRON INJ 2 MG/ML 2 ML VIAL IV PRN (16:15)
[2017-06-08] MEDS ORDERED: LORAZEPAM 2 MG/ML 1 ML VIAL IV PRN (16:30)
[2017-06-08] MEDS ORDERED: CONSULT PHARMACY PRN (16:44)
[2017-06-08] MEDS ORDERED: ALBUT/IPRATROP 3MG/0.5MG NEB 3 ML VIAL INH PRN (16:45)
[2017-06-08 18:11] VITALS: BMI 32.7
[2017-06-08 18:13] VITALS: BP 144/61; PULSE 63; TEMP 37.9; Ht 149.9 cm; Wt 70.5 kg
--- NOTE | 2017-06-08 18:35 | DIAGNOSTIC IMAGING REPORT ---
BRAIN COMBO FOR SEIZURE CLINICAL HISTORY: Seizure like activity COMPARISON STUDY: No previous studies for comparison. TECHNIQUE: Utilizing a 1.5 Folr magnet and dedicated coil, multiplanar, multiecho imaging of the brain was performed pre and postcontrast administration. IV administration of 8 mL of Gadavist contrast was uneventful. Thin cut coronal T2 imaging was performed according to seizure protocol. FINDINGS: Mild chronic small vessel change of the periventricular deep white matter regions. No acute ischemic event. Ventricular system is midline. No significant postcontrast enhancement. IMPRESSION: 1. Mild chronic small vessel change. 2. Otherwise negative study The above report was generated using voice recognition software. It may contain grammatical, syntax or spelling errors. Electronically signed by: Luis Fernando Keene M.D. 06/08/2017 6:33 PM Dictated Date/Time: 06/08/2017 6:29 PM
[2017-06-08 19:47] VITALS: BP 150/75; PULSE 67; TEMP 37.4; O2SAT 90
[2017-06-08] MEDS: CEFTRIAXONE SOD INJ 1000 MG in DEXTROSE 5% 50ML IV SCH (19:58)
[2017-06-08] MEDS: WARFARIN SOD 2.5 MG TAB PO SCH (19:59)
[2017-06-08] MEDS: GABAPENTIN 600 MG TAB PO SCH (20:00)
[2017-06-08] MEDS: FERROUS SULFATE 325 MG TAB PO SCH (20:01)
[2017-06-08] MEDS: DONEPEZIL HCL 10 MG TAB PO SCH (20:01)
[2017-06-08] MEDS: PRAVASTATIN SOD 40 MG TAB PO SCH (20:02)
[2017-06-08] MEDS: HydrALAZINE 10 MG TAB PO SCH (20:02)
[2017-06-08] MEDS: DOCUSATE SODIUM 100 MG CAP PO SCH (20:02)
[2017-06-08] MEDS: FLUTICASONE/SALMETEROL 250/50 (ADVAIR) 14 PUFF/1 INHALER INH SCH (20:03)
[2017-06-08] MEDS: BRINZOLAMIDE (AZOPT) OPS 10 ML BTL OPB SCH (20:04)
[2017-06-08] MEDS: FLUTICASONE PROPIONATE NA SPR 16 GM BTL NAE SCH (20:05)
[2017-06-08] MEDS: DOXYCYCLINE HYCLATE 100 MG in DEXTROSE 5% 100ML IV SCH (21:20)
[2017-06-08] MEDS ORDERED: PNEUMOCOCCAL POLYSACCHARIDES 25 MCG/0.5 ML VIAL/SYR IM. ONE (21:30)
[2017-06-08] MEDS ORDERED: PNEUMOCOCCAL ADMINISTRATION CHARGE ONE (21:30)
[2017-06-08 23:25] VITALS: BP 130/72; PULSE 65; TEMP 37; O2SAT 91
[2017-06-09] VITALS (7 sets, daily range): BP systolic 133–158; BP diastolic 60–77; PULSE 53–61; TEMP 36.6–37.4; O2SAT 88–93
[2017-06-09] MEDS: LEVOTHYROXINE 75 MCG TAB PO SCH (05:28)
--- NOTE | 2017-06-09 06:34 | DIAGNOSTIC IMAGING REPORT ---
CAROTID DOPPLER NECK ART HISTORY: Mental status change ? Syncope COMPARISON: None. TECHNIQUE: Real-time, grayscale, and color Doppler sonography of the carotid arteries was performed. Imaging reviewed in the transverse and longitudinal planes. All measurements were calculated based on NASCET criteria. FINDINGS: Antegrade flow is seen in the bilateral vertebral arteries. The brachial pressures are hemodynamically similar. Moderate plaque formation on the right The peak systolic velocity within the right ICA is 145. The right systolic ratio is 2.5. The peak systolic velocity within the left ICA is 1:30. The left systolic ratio is 2.1. IMPRESSION: Somewhat limited exam due to patient body habitus. 49 present narrowing of the internal carotid arteries bilaterally. No evidence for high-grade stenosis. The above report was generated using voice recognition software. It may contain grammatical, syntax or spelling errors. Electronically signed by: Luis Fernando Keene M.D. 06/09/2017 6:33 AM Dictated Date/Time: 06/09/2017 6:32 AM
[2017-06-09 07:08] LABS: HEMATOCRIT 34.6 % (37-47); MEAN CELL VOLUME 101.5 fL (80-100); MEAN CORPUSCULAR HEMOGLOBIN 30.2 pg (25-34); MEAN CORPUSCULAR HGB CONC 29.8 g/dl (32-36); MEAN PLATELET VOLUME 12.7 fL (7.4-10.4); PLATELET COUNT 87 K/uL (130-400); RED BLOOD COUNT 3.41 M/uL (4.2-5.4); WHITE BLOOD COUNT 7.04 K/uL (4.8-10.8)
[2017-06-09 07:13] LABS: INR 2.5 (0.9-1.1); PROTHROMBIN TIME (PATIENT) 28.2 SECONDS (9.0-12.0)
[2017-06-09 07:32] LABS: BUN/CREATININE RATIO 25.1 (10-20); CALCIUM 8.8 mg/dl (8.5-10.1); CREATININE 1.9 mg/dl (0.60-1.20); POTASSIUM 3.9 mmol/L (3.5-5.1)
[2017-06-09 07:43] LABS: BASO % 0.3 %; BASO ABS # 0.02 K/uL (0-0.2); COMPLETE YES; EOS % 0.9 %; IG% 0.1 %; LARGE PLATELETS 1+; LYMPH % 11.2 %; LYMPH ABS # 0.79 K/uL (1.2-3.4); MONO % 10.9 %; NEUT % 76.6 %; OVALOCYTES 1+
[2017-06-09] MEDS: HydrALAZINE 10 MG TAB PO SCH ×2 (07:50→20:19)
[2017-06-09] MEDS: MONTELUKAST SOD 10 MG TAB PO SCH (07:51)
[2017-06-09] MEDS: METOPROLOL SUCC 25MG EXT REL TAB PO SCH (07:51)
[2017-06-09] MEDS: LORATADINE 10 MG TAB PO SCH (07:51)
[2017-06-09] MEDS: DOCUSATE SODIUM 100 MG CAP PO SCH ×2 (07:51→20:18)
[2017-06-09] MEDS: GABAPENTIN 600 MG TAB PO SCH ×2 (07:51→20:18)
[2017-06-09] MEDS: BUMETANIDE 1 MG TAB PO SCH (07:52)
[2017-06-09] MEDS: FERROUS SULFATE 325 MG TAB PO SCH ×2 (07:52→16:52)
[2017-06-09] MEDS: OXYBUTYNIN CHLORIDE 5 MG TABCR PO SCH (07:52)
[2017-06-09] MEDS: CALCITRIOL 0.25 MCG CAP PO SCH (07:52)
[2017-06-09] MEDS: FLUTICASONE/SALMETEROL 250/50 (ADVAIR) 14 PUFF/1 INHALER INH SCH ×2 (07:53→20:16)
[2017-06-09] MEDS: BRINZOLAMIDE (AZOPT) OPS 10 ML BTL OPB SCH ×2 (07:53→20:16)
[2017-06-09] MEDS: FLUTICASONE PROPIONATE NA SPR 16 GM BTL NAE SCH ×2 (07:53→20:16)
[2017-06-09] MEDS: DOXYCYCLINE HYCLATE 100 MG in DEXTROSE 5% 100ML IV SCH ×2 (09:06→20:28)
--- NOTE | 2017-06-09 10:39 | Progress Note ---
Internal Med Progress Note Date of Service: Jun 09, 2017. Provider Documentation: SUBJECTIVE: Seen and examined at bedside. States having dry cough. Denies SOB, chest pain. Sinus bradycardia and PVCs on monitor. No seizure activity observed during hospitalization. 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 ASSESSMENT & PLAN: Patient is a 71 Yr female who presented with fever, cough, seizure like activity , intermittent confusion and ? syncope. Community Acquired Pneumonia: No signs of sepsis Continue Doxycycline and Ceftriaxone Lactate:1.3 Received IVF in ED Follow blood cultures Continue Oxygen (On 4L NC at home) Seizure like activity, ? Syncope Family reports intermittent confusion CT head: no acute issues MRI brain: No acute process ECHO: pending carotid doppler: No significant stenosis Neuro checks Consult Neurology:pending Ativan PRN for seizures Prolactin levels: normal Seizure precautions P.Atrial fibrillation: Rate controlled INR:2.5 monitor INR, continue Coumadin Continue metoprolol for rate control Mild elevation of Troponin: ? Syncope In setting of recent CPR, CKD, Diastolic CHF Patient denies chest pain cardiac enzymes mildly elevated ECHO:pending Will consult cardiology CHRONIC HYPOXIC RESPIRATORY FAILURE COPD: No signs of acute exacerbation continue home inhalers Continue oxygen CKD IV: Cr baseline 1.3 to 1.8 Continue to monitor renal function Cr:1.9 today On diuretics Chronic Anemia Hb at baseline Chronic Diastolic heart failure: Continue home diuretics Hypothyroidism: Continue Levothyroxine DVT Px: On Coumadin, INR therapeutic Code Status: Full Code Disposition: Monitor in Tele Vital Signs: Date Time Temp Pulse Resp B/P (MAP) Pulse Ox O2 Delivery O2 Flow Rate FiO2 06/09/17 08:00 Nasal Cannula 4.0 06/09/17 07:54 36.6 53 20 144/77 (99) 92 Nasal Cannula 4.0 06/09/17 04:10 37.0 56 18 133/62 (85) 88 Nasal Cannula 4.0 06/09/17 04:00 Nasal Cannula 4.0 06/09/17 00:00 Nasal Cannula 4.0 06/08/17 23:25 37.0 65 26 130/72 (91) 91 Room Air 06/08/17 20:00 Nasal Cannula 4.0 06/08/17 19:47 37.4 67 18 150/75 (100) 90 Nasal Cannula 4.0 06/08/17 18:13 37.9 63 22 144/61 Room Air 06/08/17 16:56 38.0 62 20 145/57 90 Nasal Cannula 4.0 06/08/17 15:21 38.1 65 20 132/68 90 Nasal Cannula 4.0 06/08/17 14:34 76 06/08/17 14:22 38.4 68 20 132/83 90 Nasal Cannula 4.0 06/08/17 13:25 38.2 73 22 167/116 94 Nasal Cannula 4.0 Lab Results: Results Past 24 Hours Test 06/08/17 13:17 06/08/17 13:50 06/08/17 13:58 06/08/17 16:11 Range/Units Urine Color YELLOW Urine Appearance CLEAR CLEAR Urine pH 6.5 4.5-7.5 Urine Specific [place] 1.010 1.000-1.030 Urine Protein NEG NEG Urine Glucose (UA) NEG NEG Urine Ketones NEG NEG Urine Occult Blood NEG NEG Urine Nitrite NEG NEG Urine Bilirubin NEG NEG Urine Urobilinogen NEG NEG Urine Leukocyte Esterase NEG NEG Urine WBC (Auto) 0 0-5 /hpf Urine RBC (Auto) 0-4 0-4 /hpf Urine Hyaline Casts (Auto) 0 0-5 /lpf Urine Epithelial Cells (Auto) 0-5 0-5 /lpf Urine Bacteria (Auto) NEG NEG White Blood Count 7.48 4.8-10.8 K/uL Red Blood Count 3.94 4.2-5.4 M/uL Hemoglobin 12.6 12.0-16.0 g/dL Hematocrit 39.5 37-47 % Mean Corpuscular Volume 100.3 80-100 fL Mean Corpuscular Hemoglobin 32.0 25-34 pg Mean Corpuscular Hemoglobin Concent 31.9 32-36 g/dl Platelet Count 111 130-400 K/uL Mean Platelet Volume 13.2 7.4-10.4 fL Neutrophils (%) (Auto) 78.6 % Lymphocytes (%) (Auto) 14.0 % Monocytes (%) (Auto) 6.3 % Eosinophils (%) (Auto) 0.7 % Basophils (%) (Auto) 0.3 % Neutrophils # (Auto) 5.88 1.4-6.5 K/uL Lymphocytes # (Auto) 1.05 1.2-3.4 K/uL Monocytes # (Auto) 0.47 0.11-0.59 K/uL Eosinophils # (Auto) 0.05 0-0.5 K/uL Basophils # (Auto) 0.02 0-0.2 K/uL RDW Standard Deviation 53.9 36.4-46.3 fL RDW Coefficient of Variation 14.8 11.5-14.5 % Immature Granulocyte % (Auto) 0.1 % Immature Granulocyte # (Auto) 0.01 0.00-0.02 K/uL Platelet Estimate DECREASED Large Platelets 1+ Prothrombin Time 22.8 9.0-12.0 SECONDS Prothromb Time International Ratio 2.1 0.9-1.1 Activated Partial Thromboplast Time 29.2 21.0-31.0 SECONDS Partial Thromboplastin Ratio 1.1 Sodium Level 142 136-145 mmol/L Potassium Level 4.1 3.5-5.1 mmol/L Chloride Level 102 98-107 mmol/L Carbon Dioxide Level 34 21-32 mmol/L Anion Gap 6.0 3-11 mmol/L Blood Urea Nitrogen 45 7-18 mg/dl Creatinine 1.70 0.60-1.20 mg/dl Est Creatinine Clear Calc Drug Dose 26.1 ml/min Estimated GFR () 34.3 Estimated GFR (Non- 29.6 BUN/Creatinine Ratio 26.2 10-20 Random Glucose 96 70-99 mg/dl Calcium Level 9.9 8.5-10.1 mg/dl Total Bilirubin 0.7 0.2-1 mg/dl Aspartate Amino Transf (AST/SGOT) 26 15-37 U/L Alanine Aminotransferase (ALT/SGPT) 19 12-78 U/L Alkaline Phosphatase 49 45-117 U/L Total Creatine Kinase 74 26-192 U/L Creatine Kinase MB 0.9 0.5-3.6 ng/ml Creatine Kinase MB Ratio 1.2 0-3.0 Troponin I 0.056 0-0.045 ng/ml Total Protein 7.6 6.4-8.2 gm/dl Albumin 3.6 3.4-5.0 gm/dl Globulin 4.0 2.5-4.0 gm/dl Albumin/Globulin Ratio 0.9 0.9-2 Prolactin 7.47 ng/mL Bedside Lactic Acid Venous 2.30 0.90-1.70 mmol/L Lactic Acid Level 1.3 0.4-2.0 mmol/L Test 06/08/17 18:36 06/09/17 01:30 06/09/17 01:40 06/09/17 06:30 Range/Units Magnesium Level 1.8 1.8-2.4 mg/dl Creatine Kinase MB 0.6 0.7 0.5-3.6 ng/ml Creatine Kinase MB Ratio 0-3.0 Troponin I 0.097 0.104 0-0.045 ng/ml White Blood Count 7.04 4.8-10.8 K/uL Red Blood Count 3.41 4.2-5.4 M/uL Hemoglobin 10.3 12.0-16.0 g/dL Hematocrit 34.6 37-47 % Mean Corpuscular Volume 101.5 80-100 fL Mean Corpuscular Hemoglobin 30.2 25-34 pg Mean Corpuscular Hemoglobin Concent 29.8 32-36 g/dl Platelet Count 87 130-400 K/uL Mean Platelet Volume 12.7 7.4-10.4 fL Neutrophils (%) (Auto) 76.6 % Lymphocytes (%) (Auto) 11.2 % Monocytes (%) (Auto) 10.9 % Eosinophils (%) (Auto) 0.9 % Basophils (%) (Auto) 0.3 % Neutrophils # (Auto) 5.39 1.4-6.5 K/uL Lymphocytes # (Auto) 0.79 1.2-3.4 K/uL Monocytes # (Auto) 0.77 0.11-0.59 K/uL Eosinophils # (Auto) 0.06 0-0.5 K/uL Basophils # (Auto) 0.02 0-0.2 K/uL RDW Standard Deviation 56.0 36.4-46.3 fL RDW Coefficient of Variation 15.2 11.5-14.5 % Immature Granulocyte % (Auto) 0.1 % Immature Granulocyte # (Auto) 0.01 0.00-0.02 K/uL Large Platelets 1+ Ovalocytes 1+ Prothrombin Time 28.2 9.0-12.0 SECONDS Prothromb Time International Ratio 2.5 0.9-1.1 Sodium Level 144 136-145 mmol/L Potassium Level 3.9 3.5-5.1 mmol/L Chloride Level 104 98-107 mmol/L Carbon Dioxide Level 36 21-32 mmol/L Anion Gap 4.0 3-11 mmol/L Blood Urea Nitrogen 48 7-18 mg/dl Creatinine 1.90 0.60-1.20 mg/dl Est Creatinine Clear Calc Drug Dose 22.9 ml/min Estimated GFR () 30.0 Estimated GFR (Non- 25.9 BUN/Creatinine Ratio 25.1 10-20 Random Glucose 94 70-99 mg/dl Calcium Level 8.8 8.5-10.1 mg/dl Microbiology Results 06/08/17 Blood Culture, Received Pending 06/08/17 Blood Culture, Received Pending 06/09/17 MRSA DNA Surveillance Screen, Received Pending 06/08/17 Group A Streptococcus Screen - Final, Resulted SPECIMEN NEGATIVE FOR GROUP A BETA ST... 06/08/17 Group A Streptococcus Screen ([facility]), Resulted Pending
[2017-06-09] MEDS: GABAPENTIN 300 MG CAP PO SCH (12:41)
--- NOTE | 2017-06-09 13:15 | Neurology Consultation ---
Neurology Consultation Date of Consultation: Jun 09, 2017. Attending Physician: Salvatore Oviedo MD Primary Care Physician: Jodi South D.O. History of Present Illness Source: patient, hospital records History of Present Illness (per admitting physician) Source: patient, family Patient is a 71 Yr female with PMH of Afib on chronic anticoagulation, COPD, CKD IV, Hypothyroidism, HLP, Sleep Apnea, Diastolic heart failure and chronic oxygen dependency presents for evaluation of cough, fever and seizure like activity. Patient and the family are poor historians. Discussed with ED physician and reviewed records to obtain history. As per the family, patient has been having cough with clear expectoration associated with fever since 2 days duration. Today she was found to have sudden onset of severe generalized shakiness for about 10 minutes and patient was awake but confused. Later she was unconscious, turned blue and stopped breathing for about 1 minute and a family friend performed CPR on patient and called EMS. Family reports patient was mumbling and they couldn't understand her. Patient is currently oriented and doesn't remember the events well. Family states patient has been having intermittent confusion. Patient reports mild abdominal discomfort earlier today which improved with bowel movement. Denies any history of chest pain, SOB, dizziness, headache, change in vision, urinary symptoms, weakness, wheezing, runny nose, diarrhea, speech problems, facial deformity, Incontinence, tongue bite. Patient gained few pounds recently and her service station manager increased her diuretic dose. CT head showed no acute pathology. Pt indicates to be that she went to the bathroom, returned to bed, and was cold and shivering. She recalls being tremulous (has a baseline intention tremor) and staring at the ceiling. She is then amnestic for the events as above, but remembers android framework developer being in the home and not being confused at that time. She diens a headache, focal neurologic sx. FAmily thought she was mumbling. Pt indicates a prior "sz" when she had cardiac surgery but was not placed on medication. No recent change in med or med withdrawal. No hx of alcohol use. Past Medical/Surgical History Medical Problems: (1) Acute kidney injury Status: Acute (2) Atrial flutter Status: Acute (3) Back pain Status: Acute (4) Bilateral knee pain Status: Acute (5) CHF exacerbation Status: Acute (6) Closed head injury Status: Acute (7) Concussion Status: Acute (8) COPD exacerbation Status: Acute (9) Fall Status: Acute (10) Hyperkalemia Status: Acute (11) Hypoxia Status: Acute (12) Lower extremity edema Status: Acute (13) Pneumonia Status: Acute (14) Pneumonia involving right lung Status: Acute (15) Sciatica Status: Acute (16) Sepsis Status: Acute (17) Subtherapeutic international normalized ratio (INR) Status: Acute (18) Weakness Status: Acute Medical Problems: (1) Afib Permanent Comment: s/p ablation Status: Chronic (2) Anemia Status: Chronic (3) ASD (atrial septal defect) Permanent Comment: repaired Status: Chronic (4) CKD (chronic kidney disease), stage IV Status: Chronic (5) COPD (chronic obstructive pulmonary disease) Status: Chronic (6) GERD (gastroesophageal reflux disease) Status: Chronic (7) H/O unilateral nephrectomy Permanent Comment: right Status: Chronic (8) Heart disease Permanent Comment: mild CAD cath 2007 Status: Chronic (9) HLD (hyperlipidemia) Status: Chronic (10) HTN (hypertension) Status: Chronic (11) Hypertension Status: Chronic (12) Hypothyroid Status: Chronic (13) Mild left ventricular systolic dysfunction Permanent Comment: EF 45-49% echo 04/2016 Status: Chronic (14) MRSA bacteremia Permanent Comment: in the setting of pacemaker vegetation (08/2011) and discitis (02/2012) Status: Resolved (15) Pacemaker Permanent Comment: removed 2010 due to infection Status: Chronic (16) Right-sided congestive heart failure Status: Chronic (17) Solitary kidney Status: Chronic (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 Surgical Problems: (1) H/O thyroidectomy Status: Chronic (2) History of appendectomy Status: Chronic (3) S/P MVR (mitral valve repair) Status: Chronic Possible prior TIAwith L arm tingling and numbness lasting hours accompanied by headache. Lumbar surgery Family History Heart disease Hypertension Lung disease Family history: Positive for seizures Social History Smoking Status: Former Smoker Alcohol Use: none Drug Use: none Marital Status: single Housing status: lives with family Occupational Status: disabled Immunizations History of Influenza Vaccine: Yes Influenza Vaccine Date: Oct 06, 2016 History of Tetanus Vaccine?: Yes Tetanus Immunization Date: Jul 08, 2015 History of Pneumococcal: Yes Pneumococcal Date: May 20, 2015 Multi-Drug Resistant Organisms History of MDRO: Yes Type of MDRO: MRSA Allergies Coded Allergies: Levofloxacin (Verified Allergy, Intermediate, HIVES, 01/25/17) Quinolones (Verified Allergy, Intermediate, HIVES, 01/25/17) Ranitidine (Verified Allergy, Intermediate, HIVES, 01/25/17) Sulfamethoxazole (Verified Allergy, Intermediate, HIVES, 01/25/17) Trimethoprim (Verified Allergy, Intermediate, HIVES, 01/25/17) Clarithromycin (Verified Allergy, Mild, HIVES, CAN TAKE ZITHROMAX W/O PROB , 01/25/17) Amoxicillin (Verified Allergy, Unknown, HIVES, 01/25/17) Omeprazole (Verified Allergy, Unknown, HAS HAD PROTONIX, 01/25/17) Home Medications Scheduled Brinzolamide Oph (Azopt Oph), 1 DROP OPB TID Bumetanide (Bumetanide), 1 MG PO DAILY Calcitriol (Calcitriol), 0.25 MCG PO DAILY Docusate Sodium (Colace), 100 MG PO BID Donepezil Hydrochloride (Aricept), 10 MG PO HS Ferrous Sulfate (Iron), 1 TAB PO BID Fluticasone Prop/Salmeterol (Advair Diskus 250/50 60 Dose), 1 PUFF INH BID Fluticasone Propionate (Nasal) (Flonase Allergy Relief), 1 SPRAY PAULIE BID Gabapentin (Neurontin), 300 MG PO DAILY Gabapentin (Neurontin), 600 MG PO AMHS Home O2 Therapy (Oxygen), 4 LITERS NA CONTINOUS Hydralazine HCl (Hydralazine HCl), 10 MG PO BID Levothyroxine Sodium (Levothyroxine Sodium), 75 MCG PO DAILY Loratadine (Claritin), 10 MG PO DAILY Metoprolol Succinate (Metoprolol Succinate ER), 12.5 MG PO DAILY Montelukast Sodium (Singulair), 1 TAB PO DAILY Nitroglycerin (Nitrostat), 0.4 MG SL PRN UD Oxybutynin Chloride (Oxybutynin Chloride Er), 5 MG PO DAILY Pravastatin Sodium (Pravastatin Sodium), 80 MG PO QPM Umeclidinium [place] (Incruse Ellipta), 1 INHA PO DAILY Warfarin Sodium (Coumadin), 2.5-5 MG PO UD Scheduled PRN Albuterol Sulf (Proventil 0.083% 2.5MG/3ML), 2.5 MG INH Q4H PRN for SOB/Wheezing Albuterol Sulfate (Proair Respiclick), 2 PUFFS INH QID PRN for Shortness of Breath Review of Systems See HPI for pertinent positives & negatives. A total of 10 systems reviewed and were otherwi Social History Smoking Status: Former smoker Alcohol Use: none Drug Use: none Marital Status: single Housing Status: other Occupation Status: disabled Allergies Coded Allergies: Levofloxacin (Verified Allergy, Intermediate, HIVES, 01/25/17) Quinolones (Verified Allergy, Intermediate, HIVES, 01/25/17) Ranitidine (Verified Allergy, Intermediate, HIVES, 01/25/17) Sulfamethoxazole (Verified Allergy, Intermediate, HIVES, 01/25/17) Trimethoprim (Verified Allergy, Intermediate, HIVES, 01/25/17) Clarithromycin (Verified Allergy, Mild, HIVES, CAN TAKE ZITHROMAX W/O PROB , 01/25/17) Amoxicillin (Verified Allergy, Unknown, HIVES, 01/25/17) Omeprazole (Verified Allergy, Unknown, HAS HAD PROTONIX, 01/25/17) Current Inpatient Medications Current Inpatient Medications Medications (Trade) Dose Ordered Sig/Mehdi Route Start Time Stop Time Status Last Admin Dose Admin Acetaminophen (Tylenol Tab) 650 mg Q4H PRN PO 06/08/17 16:15 07/08/17 16:14 06/08/17 19:57 650 MG Ondansetron HCl (Zofran Inj) 4 mg Q6H PRN IV 06/08/17 16:15 07/08/17 16:14 Lorazepam (Ativan Inj) 1 mg Q4H PRN IV 06/08/17 16:30 07/08/17 16:29 Albuterol/ Ipratropium (Duoneb) 3 ml QIDR PRN INH 06/08/17 16:45 07/08/17 16:44 Brinzolamide (Azopt) 1 drops BID OPB 06/08/17 21:00 07/08/17 20:59 06/09/17 07:53 1 DROPS Bumetanide (Bumex Tab) 1 mg DAILY PO 06/09/17 09:00 07/09/17 08:59 06/09/17 07:52 1 MG Calcitriol (Rocaltrol Cap) 0.25 mcg DAILY PO 06/09/17 09:00 07/09/17 08:59 06/09/17 07:52 0.25 MCG Docusate Sodium (coLACE CAP) 100 mg BID PO 06/08/17 21:00 07/08/17 20:59 06/09/17 07:51 100 MG Donepezil HCl (Aricept Tab) 10 mg HS PO 06/08/17 21:00 07/08/17 20:59 06/08/17 20:01 10 MG Salmeterol Xinafoate/ Fluticasone (Advair Diskus 250/50 Inh) 1 puff BID INH 06/08/17 21:00 07/08/17 20:59 06/09/17 07:53 1 PUFF Fluticasone Propionate (Flonase Nasal [place]) 1 sprays BID PAULIE 06/08/17 21:00 07/08/17 20:59 06/09/17 07:53 1 SPRAYS Gabapentin (Neurontin Cap) 300 mg DAILY@1200 PO 06/09/17 12:00 07/09/17 11:59 06/09/17 12:41 300 MG Gabapentin (Neurontin Tab) 600 mg BID PO 06/08/17 21:00 07/08/17 20:59 06/09/17 07:51 600 MG Hydralazine HCl (Apresoline Tab) 10 mg BID PO 06/08/17 21:00 07/08/17 20:59 06/09/17 07:50 10 MG Levothyroxine Sodium (Synthroid Tab) 75 mcg DAILYBB PO 06/09/17 06:00 07/09/17 06:59 06/09/17 05:28 75 MCG Loratadine (Claritin Tab) 10 mg DAILY PO 06/09/17 09:00 07/09/17 08:59 06/09/17 07:51 10 MG Metoprolol Succinate (Toprol Xl Tab) 12.5 mg DAILY PO 06/09/17 09:00 07/09/17 08:59 06/09/17 07:51 12.5 MG Montelukast Sodium (Singulair Tab) 10 mg DAILY PO 06/09/17 09:00 07/09/17 08:59 06/09/17 07:51 10 MG Oxybutynin Chloride (Ditropan-Xl Tab) 5 mg DAILY PO 06/09/17 09:00 07/09/17 08:59 06/09/17 07:52 5 MG Warfarin Sodium (Coumadin Tab) 2.5 mg DAILY@1600 PO 06/08/17 18:30 07/08/17 18:29 06/08/17 19:59 2.5 MG Ferrous Sulfate (Feosol Tab) 325 mg BIDM PO 06/08/17 17:57 07/08/17 17:59 06/09/17 07:52 325 MG Pravastatin Sodium (Pravachol Tab) 80 mg QPM PO 06/08/17 21:00 07/08/17 20:59 06/08/17 20:02 80 MG Miscellaneous Information (Order Awaiting Action) 1 ea QS N/A 06/09/17 00:00 07/09/17 00:00 Ceftriaxone Sodium 1000 mg/ Dextrose 60 ml @ 120 mls/hr Q24H IV 06/08/17 19:00 06/15/17 18:59 06/08/17 19:58 120 MLS/HR Doxycycline Hyclate 100 mg/ Dextrose 110 ml @ 55 mls/hr Q12H IV 06/08/17 21:00 06/15/17 20:59 06/09/17 09:06 55 MLS/HR Review of Systems as above, and per admitting physician Physical Exam Vital Signs (Past 24 Hrs): Date Time Temp Pulse Resp B/P (MAP) Pulse Ox O2 Delivery O2 Flow Rate FiO2 06/09/17 12:00 Nasal Cannula 4.0 06/09/17 11:29 37.0 55 18 137/60 (85) 90 4.0 06/09/17 11:04 57 92 06/09/17 08:00 Nasal Cannula 4.0 06/09/17 07:54 36.6 53 20 144/77 (99) 92 Nasal Cannula 4.0 06/09/17 04:10 37.0 56 18 133/62 (85) 88 Nasal Cannula 4.0 06/09/17 04:00 Nasal Cannula 4.0 06/09/17 00:00 Nasal Cannula 4.0 06/08/17 23:25 37.0 65 26 130/72 (91) 91 Room Air 06/08/17 20:00 Nasal Cannula 4.0 06/08/17 19:47 37.4 67 18 150/75 (100) 90 Nasal Cannula 4.0 06/08/17 18:13 37.9 63 22 144/61 Room Air 06/08/17 16:56 38.0 62 20 145/57 90 Nasal Cannula 4.0 06/08/17 15:21 38.1 65 20 132/68 90 Nasal Cannula 4.0 06/08/17 14:34 76 06/08/17 14:22 38.4 68 20 132/83 90 Nasal Cannula 4.0 06/08/17 13:25 38.2 73 22 167/116 94 Nasal Cannula 4.0 Pt awake alert oriented to hospital not month. No RL confusion, no aphasia. Appears to have a minor tic of brow elevation. PT NCAT, no carotid bruits. heart regular. lungs decreased at bases with crackles., pt mildly tachypneic. abd protubertant, bl LE pitting edema. Perrla, unable to vis ON, nml nayak EOMI, nml facial symm. Symmetric strength, decreased left ankle jerk relative to R, toes downgoing. Moderate postural and intention tremor. Gait was not tested Laboratory Results Past 24 Hours: 06/09/17 06:30 Red Blood Count 3.41, Mean Corpuscular Volume 101.5, Mean Corpuscular Hemoglobin 30.2, Mean Corpuscular Hemoglobin Concent 29.8, Mean Platelet Volume 12.7, Neutrophils (%) (Auto) 76.6, Lymphocytes (%) (Auto) 11.2, Monocytes (%) ( Auto) 10.9, Eosinophils (%) (Auto) 0.9, Basophils (%) (Auto) 0.3, Neutrophils # (Auto) 5.39, Lymphocytes # (Auto) 0.79, Monocytes # (Auto) 0.77, Eosinophils # ( Auto) 0.06, Basophils # (Auto) 0.02 06/09/17 06:30 Test 06/08/17 13:17 06/08/17 13:50 06/08/17 13:58 06/08/17 16:11 Urine Color YELLOW Urine Appearance CLEAR (CLEAR) Urine pH 6.5 (4.5-7.5) Urine Specific [place] 1.010 (1.000-1.030) Urine Protein NEG (NEG) Urine Glucose (UA) NEG (NEG) Urine Ketones NEG (NEG) Urine Occult Blood NEG (NEG) Urine Nitrite NEG (NEG) Urine Bilirubin NEG (NEG) Urine Urobilinogen NEG (NEG) Urine Leukocyte Esterase NEG (NEG) Urine WBC (Auto) 0 /hpf (0-5) Urine RBC (Auto) 0-4 /hpf (0-4) Urine Hyaline Casts (Auto) 0 /lpf (0-5) Urine Epithelial Cells (Auto) 0-5 /lpf (0-5) Urine Bacteria (Auto) NEG (NEG) Platelet Estimate DECREASED Activated Partial Thromboplast Time 29.2 SECONDS (21.0-31.0) Partial Thromboplastin Ratio 1.1 Total Bilirubin 0.7 mg/dl (0.2-1) Aspartate Amino Transf (AST/SGOT) 26 U/L (15-37) Alanine Aminotransferase (ALT/SGPT) 19 U/L (12-78) Alkaline Phosphatase 49 U/L (45-117) Total Creatine Kinase 74 U/L (26-192) Total Protein 7.6 gm/dl (6.4-8.2) Albumin 3.6 gm/dl (3.4-5.0) Globulin 4.0 gm/dl (2.5-4.0) Albumin/Globulin Ratio 0.9 (0.9-2) Prolactin 7.47 ng/mL Bedside Lactic Acid Venous 2.30 mmol/L (0.90-1.70) Lactic Acid Level 1.3 mmol/L (0.4-2.0) Test 06/08/17 18:36 06/09/17 01:30 06/09/17 01:40 06/09/17 06:30 Magnesium Level 1.8 mg/dl (1.8-2.4) Creatine Kinase MB Ratio (0-3.0) Creatine Kinase MB 0.7 ng/ml (0.5-3.6) Troponin I 0.104 ng/ml (0-0.045) White Blood Count 7.04 K/uL (4.8-10.8) Red Blood Count 3.41 M/uL (4.2-5.4) Hemoglobin 10.3 g/dL (12.0-16.0) Hematocrit 34.6 % (37-47) Mean Corpuscular Volume 101.5 fL (80-100) Mean Corpuscular Hemoglobin 30.2 pg (25-34) Mean Corpuscular Hemoglobin Concent 29.8 g/dl (32-36) Platelet Count 87 K/uL (130-400) Mean Platelet Volume 12.7 fL (7.4-10.4) Neutrophils (%) (Auto) 76.6 % Lymphocytes (%) (Auto) 11.2 % Monocytes (%) (Auto) 10.9 % Eosinophils (%) (Auto) 0.9 % Basophils (%) (Auto) 0.3 % Neutrophils # (Auto) 5.39 K/uL (1.4-6.5) Lymphocytes # (Auto) 0.79 K/uL (1.2-3.4) Monocytes # (Auto) 0.77 K/uL (0.11-0.59) Eosinophils # (Auto) 0.06 K/uL (0-0.5) Basophils # (Auto) 0.02 K/uL (0-0.2) RDW Standard Deviation 56.0 fL (36.4-46.3) RDW Coefficient of Variation 15.2 % (11.5-14.5) Immature Granulocyte % (Auto) 0.1 % Immature Granulocyte # (Auto) 0.01 K/uL (0.00-0.02) Large Platelets 1+ Ovalocytes 1+ Prothrombin Time 28.2 SECONDS (9.0-12.0) Prothromb Time International Ratio 2.5 (0.9-1.1) Anion Gap 4.0 mmol/L (3-11) Est Creatinine Clear Calc Drug Dose 22.9 ml/min Estimated GFR () 30.0 Estimated GFR (Non- 25.9 BUN/Creatinine Ratio 25.1 (10-20) Calcium Level 8.8 mg/dl (8.5-10.1) Date/Time Source Procedure Growth Status 06/09/17 07:46 Nasal MRSA DNA Surveillance Screen - Final Specimen Negative for MRSA by DNA Probe Complete Imaging BRAIN COMBO FOR SEIZURE CLINICAL HISTORY: Seizure like activity COMPARISON STUDY: No previous studies for comparison. TECHNIQUE: Utilizing a 1.5 Flor magnet and dedicated coil, multiplanar, multiecho imaging of the brain was performed pre and postcontrast administration. IV administration of 8 mL of Gadavist contrast was uneventful. Thin cut coronal T2 imaging was performed according to seizure protocol. FINDINGS: Mild chronic small vessel change of the periventricular deep white matter regions. No acute ischemic event. Ventricular system is midline. No significant postcontrast enhancement. IMPRESSION: 1. Mild chronic small vessel change. 2. Otherwise negative study Impression Possible sz, possibly secondary to hypoxemia v hypoperfusion . P EEG, evaluation for vascular risk factors (echo, tele). No anticonvulsant pending EEG , at present unless witnessed sz and pt not hypoxic or hypotensive. Plan as above, LEONEL Mortensen MD
--- NOTE | 2017-06-09 14:52 | Cardiology Consultation ---
Cardiology Consultation Requesting Physician: Dr. Salvatore Oviedo Attending Tractor Crane Engineer: Dr. Garth Fulton History of Present Illness Patient is a 71 year old female brought to the emergency department by her family due to episode of possible seizure activity. There is no family present at bedside. Patient is a poor historian. History taken from chart as well as discussion with the hospitalist service. Patient states that she went to the bathroom and then felt tired and laid in her bed. At that time she noted she was feeling shaky. According to notes family was unable to arouse her. There was questionable seizure activity. There is also a question of whether the patient was staring out the window with her eyes open. Apparently CPR was initiated with one or 2 chest compressions. Patient apparently woke up at that point. She remained confused. There was also reported episode of pallor possible apnea. It is unclear whether this history is reliable. Complex medical history listed below. Patient resting comfortably on my arrival to the room. She was easily arousable with verbal stimuli. Denies recent chest pain or unusual shortness of breath. States she has been ambulating with her walker. No lightheadedness, dizziness, syncope or syncope. Denies orthopnea, weight gain, worsening lower extremity edema. No palpitations or change in functional capacity. Telemetry reviewed since admission demonstrates sinus bradycardia. There is chart history of cough and sputum production. CT of the abdomen and pelvis demonstrate a possible lower lobe infiltrates and the patient is being treated for community-acquired pneumonia. 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 All other 10 point review of systems is negative. PAST MEDICAL HISTORY: 1. Paroxysmal atrial flutter status post ablation 07/2015. 2. Paroxysmal atrial fibrillation with tachybrady syndrome, status post pacemaker implantation in 2009, pacemaker removal in 2010 secondary to bacteremia and questionable vegetation. 3. Chronic kidney disease stage IV. 4. Cor pulmonale, severe pulmonary hypertension, on chronic oxygen therapy. 5. ASD repair later in life. 6. Chronic combined systolic and diastolic heart failure. 7. Dyslipidemia. 8. GERD. 9. REGI and ARB intolerance secondary to chronic kidney disease. 10. JOSIAS. 11. Chronic rhinitis. 12. Chronic anemia. 13. Bradycardia 14. Hypothyroidism 15. DM type II 16. Mild coronary artery disease by catheterization in 2007. 17. GERD. 18. Questionable history of transient ischemic attacks. 19. History of bleeding ulcers. PAST SURGICAL HISTORY: 1. Pacemaker implantation in 2009. 2. Pacer explant 2010. 3. Right nephrectomy. 4. Thyroidectomy, partial. 5. Appendectomy. 6. Tonsillectomy. 7. Colonoscopy. 8. ASD repair 2007 SOCIAL HISTORY: Former tobacco abuse, quit 2004 [id number] history. She is and lives with family. FAMILY HISTORY: Negative for premature CAD or sudden cardiac , however noncontributory given patient's advanced age. Review Of Systems General: The patient denies weight change, night sweats, fever, chills. Head: The patient denies headache and prior head trauma. Cardiovascular: The patient denies chest pain or chest discomfort, dyspnea on exertion, palpitations, PND, orthopnea, edema, spontaneous shortness of breath, syncope and near syncope. Pulmonary: The patient denies cough, wheeze, pleurisy, hemoptysis, sputum, and excessive snoring. Gastrointestinal: The patient denies nausea, vomiting, diarrhea, constipation, bloating, hematemesis, hematochezia, and abdominal pain. Skin: The patient denies diaphoresis and rash. Musculoskeletal: The patient denies joint pain, joint swelling, myalgia, back pain, neck pain and prior injuries. Neurological: The patient denies prior stroke and seizures Allergies Coded Allergies: Levofloxacin (Verified Allergy, Intermediate, HIVES, 01/25/17) Quinolones (Verified Allergy, Intermediate, HIVES, 01/25/17) Ranitidine (Verified Allergy, Intermediate, HIVES, 01/25/17) Sulfamethoxazole (Verified Allergy, Intermediate, HIVES, 01/25/17) Trimethoprim (Verified Allergy, Intermediate, HIVES, 01/25/17) Clarithromycin (Verified Allergy, Mild, HIVES, CAN TAKE ZITHROMAX W/O PROB , 01/25/17) Amoxicillin (Verified Allergy, Unknown, HIVES, 01/25/17) Omeprazole (Verified Allergy, Unknown, HAS HAD PROTONIX, 01/25/17) Medications Reported Home Medications Medications Dose Route/Sig Max Daily Dose Days Date Category Dose Instructions Metoprolol Succinate ER (Metoprolol Succinate) 25 Mg Tabcr 12.5 Mg PO DAILY 06/08/17 Reported Colace (Docusate Sodium) 100 Mg Cap 100 Mg PO BID 05/03/17 Rx Azopt Oph (Brinzolamide) 1 % Ciara 1 Drop OPB TID 05/03/17 Reported Incruse Ellipta (Umeclidinium Hartly) 62.5 Mcg/Inh Inh 1 Inha PO DAILY 05/03/17 Reported Coumadin (Warfarin Sodium) 5 Mg Tab 2.5-5 Mg PO UD 05/03/17 Reported Claritin (Loratadine) 10 Mg Tab 10 Mg PO DAILY 05/03/17 Reported Proventil 0.083% 2.5MG/3ML (Albuterol Sulf) 2.5 Mg/3 Ml Nebu 2.5 Mg INH Q4H PRN 01/09/17 Reported Proair Respiclick (Albuterol Sulfate) 108 Mcg/Act Aer 2 Puffs INH QID PRN 01/09/17 Reported Bumetanide 1 Mg Tab 1 Mg PO DAILY 30 06/14/16 Rx Levothyroxine Sodium 75 Mcg Tab 75 Mcg PO DAILY 06/08/16 Reported Hydralazine HCl 10 Mg Tab 10 Mg PO BID 06/08/16 Reported Iron (Ferrous Sulfate) 325 Mg Tab 1 Tab PO BID 06/08/16 Reported Oxygen Gas 4 Liters NA CONTINOUS 04/13/16 Reported Singulair (Montelukast Sodium) 10 Mg Tab 1 Tab PO DAILY 90 02/02/16 Rx Nitrostat (Nitroglycerin) 0.4 Mg Tab 0.4 Mg SL PRN UD 08/13/15 Reported Flonase Allergy Relief (Fluticasone Propionate (Nasal)) 50 Mcg/Act Spr 1 Melstone PAULIE BID 08/13/15 Reported Neurontin (Gabapentin) 300 Mg Cap 600 Mg PO AMHS 01/17/15 Reported Neurontin (Gabapentin) 300 Mg Cap 300 Mg PO DAILY 01/17/15 Reported 1 HOUR BEFORE LUNCH Advair Diskus 250/50 60 Dose (Fluticasone Prop/Salmeterol) 1 Ea Aerp 1 Puff INH BID 07/16/14 Reported Calcitriol 0.25 Mcg Cap 0.25 Mcg PO DAILY 07/16/14 Reported Pravastatin Sodium 80 Mg Tab 80 Mg PO QPM 07/16/14 Reported Oxybutynin Chloride Er (Oxybutynin Chloride) 5 Mg Tab 5 Mg PO DAILY 07/16/14 Reported Aricept (Donepezil Hydrochloride) 10 Mg Tab 10 Mg PO HS 03/01/12 Reported Physical Exam Vital Signs (Last 8hrs): Last 8 Hrs Date Time Temp Pulse Resp B/P (MAP) Pulse Ox O2 Delivery O2 Flow Rate FiO2 06/09/17 12:00 Nasal Cannula 4.0 06/09/17 11:29 37.0 55 18 137/60 (85) 90 4.0 06/09/17 11:04 57 92 06/09/17 08:00 Nasal Cannula 4.0 06/09/17 07:54 36.6 53 20 144/77 (99) 92 Nasal Cannula 4.0 General Appearance: Alert and Oriented x3. NAD. Chronically ill. Head: Normocephalic Atraumatic. Eyes: PERRLA, EOMI, conjunctiva and sclera clear Neck: Supple. No carotid bruits noted. No JVD. No HJD. Respiratory: Decreased breath sounds bilaterally. No w/r/r. Cardiovascular: Reg rate and rhythm. Bradycardic. S1 and S2 noted. No murmurs , rubs, gallops. PMI non displace. Abdomen: Normal bowel sounds, soft nontender. no abdominal bruits. Extremities: 1+ bilateral pedal edema . No clubbing or cyanosis. distal pulses 2 /4 bilaterally. Neuro: No focal deficits. Psychiatric: Normal affect. Data Last 24 Hours Test 06/08/17 16:11 06/08/17 18:36 06/09/17 01:30 06/09/17 01:40 Lactic Acid Level 1.3 mmol/L Magnesium Level 1.8 mg/dl Creatine Kinase MB 0.6 ng/ml 0.7 ng/ml Creatine Kinase MB Ratio Troponin I 0.097 ng/ml 0.104 ng/ml Test 06/09/17 06:30 White Blood Count 7.04 K/uL Red Blood Count 3.41 M/uL Hemoglobin 10.3 g/dL Hematocrit 34.6 % Mean Corpuscular Volume 101.5 fL Mean Corpuscular Hemoglobin 30.2 pg Mean Corpuscular Hemoglobin Concent 29.8 g/dl Platelet Count 87 K/uL Mean Platelet Volume 12.7 fL Neutrophils (%) (Auto) 76.6 % Lymphocytes (%) (Auto) 11.2 % Monocytes (%) (Auto) 10.9 % Eosinophils (%) (Auto) 0.9 % Basophils (%) (Auto) 0.3 % Neutrophils # (Auto) 5.39 K/uL Lymphocytes # (Auto) 0.79 K/uL Monocytes # (Auto) 0.77 K/uL Eosinophils # (Auto) 0.06 K/uL Basophils # (Auto) 0.02 K/uL RDW Standard Deviation 56.0 fL RDW Coefficient of Variation 15.2 % Immature Granulocyte % (Auto) 0.1 % Immature Granulocyte # (Auto) 0.01 K/uL Large Platelets 1+ Ovalocytes 1+ Prothrombin Time 28.2 SECONDS Prothromb Time International Ratio 2.5 Sodium Level 144 mmol/L Potassium Level 3.9 mmol/L Chloride Level 104 mmol/L Carbon Dioxide Level 36 mmol/L Anion Gap 4.0 mmol/L Blood Urea Nitrogen 48 mg/dl Creatinine 1.90 mg/dl Est Creatinine Clear Calc Drug Dose 22.9 ml/min Estimated GFR () 30.0 Estimated GFR (Non- 25.9 BUN/Creatinine Ratio 25.1 Random Glucose 94 mg/dl Calcium Level 8.8 mg/dl Imaging: EKG: Telemetry reviewed: Assessment & Plan Final impression: 1. 71-year-old complex female admitted with possible seizure versus syncope. Resting 2-D transthoracic echo is pending at this time. No evidence of significant pauses, heart block, or symptomatically bradycardia on telemetry since admission. ECG unchanged. Mild elevation of cardiac enzymes noted which does not appear to represent plaque rupture event. 2. CAP with underlying COPD 3. Paroxysmal atrial fib/flutter s/p 2 ablations, most recently in 2016. currently NSR -continue low dose metoprolol -Coumadin on hold due to questionable hemoptysis? 4. Chronic biventricular heart failure, last LVEF 45% with dilated RV and severe pulmonary hypertension -compensated -echo pending 5. 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 Plan/recommendations: Continue to monitor telemetry during hospitalization. If there is no significant bradycardia, pauses, or heart block recorded will likely require outpatient long-term monitor for further evaluation. I will review resting 2-D transthoracic echo when available. She will continue current cardiovascular medications as previously ordered. I will continue to follow during hospitalization. Thank you for allowing me to take part in the care of your patient.
[2017-06-09] MEDS: WARFARIN SOD 2.5 MG TAB PO SCH (16:53)
[2017-06-09] MEDS: CEFTRIAXONE SOD INJ 1000 MG in DEXTROSE 5% 50ML IV SCH (18:28)
--- NOTE | 2017-06-09 19:31 | ECHOCARDIOGRAM REPORT ---
*NOTICE TO RECEIVING CONSTITUTION PARTY AGENCY This information is strictly Confidential and protected under [place] law. [place] law prohibits you from making any further disclosure of this information unless further disclosure is expressly permitted by the written consent of the person to whom it pertains or is authorized by law. A general authorization for the release of medical or other information is not sufficient for this purpose. Hospital accepts no responsibility if the information is made available to any other person, INCLUDING THE PATIENT. Interpretation Summary * Name: CRISTEL PERLA Study Date: 06/09/2017 08:19 AM BP: 133/62 mmHg * Patient Location: C.2T\S\S237\S\1 HR: 56 * : 1945 (M/d/yyyy) Gender: Female Height: 59 in * Age: 71 yrs Ethnicity: CA Weight: 161 lb * Ordering Physician: Salvatore Oviedo * Referring Physician: Self, Referred * Performed By: Nidia Almendarez RDCS * * Reason For Study: Alteration of consciousness * BSA: 1.7 m2 * The study was technically adequate. * Compared to prior study, there is no significant change. * -- Conclusions -- * Left ventricular systolic function is normal. * Ejection Fraction = 55-60%. * There is mild concentric left ventricular hypertrophy. * Flattened septum is consistent with RV pressure/volume overload. * The right ventricle is severely dilated. * The right ventricular systolic function is severely reduced. * The right atrium is severely dilated. * There is severe tricuspid regurgitation. * The estimated systolic PAP is 55mmHg. Procedure Details * A complete two-dimensional transthoracic echocardiogram was performed (2D, M-mode, Doppler and color flow Doppler). Left Ventricle * The left ventricle is normal in size. * There is mild concentric left ventricular hypertrophy. * Left ventricular systolic function is normal. * Ejection Fraction = 55-60%. * Flattened septum is consistent with RV pressure/volume overload. Right Ventricle * The right ventricle is severely dilated. * The right ventricular systolic function is severely reduced. * The right ventricular systolic function is reduced as assessed by tricuspid annular plane systolic excursion (TAPSE) (TAPSE <1.6 cm). Atria * The left atrium is mildly dilated. * The right atrium is severely dilated. * There is no evidence of atrial septal defect, but resolution does not allow assessment for a patent foramen ovale. Mitral Valve * The mitral valve anatomy is normal. * There is no mitral valve stenosis. * There is trace mitral regurgitation. Tricuspid Valve * The tricuspid valve anatomy is normal. * There is no tricuspid stenosis. * There is severe tricuspid regurgitation. * The estimated systolic PAP is 55mmHg. Aortic Valve * The aortic valve is trileaflet. * No hemodynamically significant valvular aortic stenosis. * There is no significant aortic regurgitation. Pulmonic Valve * The pulmonary valve is inadequately visualized, but the Doppler data is adequate for interpretation. * There is no pulmonic valvular stenosis. * Mild to moderate pulmonic valvular regurgitation. Great Vessels * The aortic root is normal size. Pericardium/Pleural * There is no pericardial effusion. Great Vessels * Normal inferior vena cava size and collapsability with sniff indicates a normal right atrial pressure of 3 mmHg Left Ventricular Diastolic Function * Diastolic dysfunction, Grade II (pseudonormalization pattern). MMode 2D Measurements and Calculations IVSd 0.93 cm LVIDd 3.8 cm LVIDs 2.7 cm LVPWd 1.7 cm IVS/LVPW 0.55 FS 30.2 % EDV(Teich) 63.6 ml ESV(Teich) 26.6 ml EF(Teich) 58.2 % EDV(cubed) 56.7 ml ESV(cubed) 19.3 ml EF(cubed) 66.0 % LV mass(C)d 176.7 grams LV mass(C)dI 105.1 grams/m\S\2 SV(Teich) 37.1 ml SI(Teich) 22.0 ml/m\S\2 SV(cubed) 37.4 ml SI(cubed) 22.3 ml/m\S\2 Ao root diam 2.3 cm Ao root area 4.0 cm\S\2 ACS 1.4 cm LA dimension 3.5 cm asc Aorta Diam 2.3 cm LA/Ao 1.5 LVOT diam 1.7 cm LVOT area 2.3 cm\S\2 LVAd ap4 18.1 cm\S\2 LVLd ap4 5.9 cm EDV(MOD-sp4) 47.6 ml EDV(sp4-el) 47.2 ml LVAs ap4 11.2 cm\S\2 LVLs ap4 5.0 cm ESV(MOD-sp4) 20.8 ml ESV(sp4-el) 21.3 ml EF(MOD-sp4) 56.3 % EF(sp4-el) 54.9 % LVAd ap2 16.4 cm\S\2 LVLd ap2 5.4 cm EDV(MOD-sp2) 43.3 ml EDV(sp2-el) 42.2 ml LVAs ap2 9.7 cm\S\2 LVLs ap2 4.4 cm ESV(MOD-sp2) 18.8 ml ESV(sp2-el) 18.1 ml EF(MOD-sp2) 56.5 % EF(sp2-el) 57.1 % LVLd %diff -8.90 % EDV(MOD-bp) 44.0 ml LVLs %diff -13.25 % ESV(MOD-bp) 20.6 ml EF(MOD-bp) 53.3 % SV(MOD-sp4) 26.8 ml SI(MOD-sp4) 16.0 ml/m\S\2 SV(MOD-sp2) 24.5 ml SI(MOD-sp2) 14.6 ml/m\S\2 SV(MOD-bp) 23.5 ml SI(MOD-bp) 13.9 ml/m\S\2 SV(sp4-el) 25.9 ml SI(sp4-el) 15.4 ml/m\S\2 SV(sp2-el) 24.1 ml SI(sp2-el) 14.3 ml/m\S\2 Doppler Measurements and Calculations MV E max julio 92.7 cm/sec MV A max julio 40.4 cm/sec MV E/A 2.3 MV dec time 0.17 sec Ao V2 max 158.4 cm/sec Ao max PG 10.0 mmHg Ao max PG (full) 1.6 mmHg JOCY(V,A) 2.1 cm\S\2 JOCY(V,D) 2.1 cm\S\2 LV V1 max PG 8.4 mmHg LV V1 max 145.2 cm/sec PA V2 max 88.3 cm/sec PA max PG 3.1 mmHg PA acc slope 420.8 cm/sec\S\2 PA acc time 0.14 sec PI max julio 214.2 cm/sec PI max PG 18.4 mmHg PI dec slope 143.6 cm/sec\S\2 PI P1/2t 436.9 msec TR max julio 301.4 cm/sec PA pr(Accel) 14.4 mmHg
[2017-06-09] MEDS: DONEPEZIL HCL 10 MG TAB PO SCH (20:17)
[2017-06-09] MEDS: PRAVASTATIN SOD 40 MG TAB PO SCH (20:18)
[2017-06-10] VITALS (9 sets, daily range): BP systolic 122–155; BP diastolic 58–74; PULSE 49–58; TEMP 36.9–37.2; O2SAT 90–96
[2017-06-10] MEDS: LEVOTHYROXINE 75 MCG TAB PO SCH (06:30)
[2017-06-10 06:37] LABS: INR 2.2 (0.9-1.1); PROTHROMBIN TIME (PATIENT) 24.9 SECONDS (9.0-12.0)
[2017-06-10 06:48] LABS: BUN/CREATININE RATIO 30.1 (10-20); CALCIUM 8.9 mg/dl (8.5-10.1); CREATININE 1.7 mg/dl (0.60-1.20); POTASSIUM 3.9 mmol/L (3.5-5.1)
[2017-06-10 07:10] LABS: HEMATOCRIT 33.5 % (37-47); MEAN CELL VOLUME 100.3 fL (80-100); MEAN CORPUSCULAR HEMOGLOBIN 31.4 pg (25-34); MEAN CORPUSCULAR HGB CONC 31.3 g/dl (32-36); MEAN PLATELET VOLUME 13.4 fL (7.4-10.4); PLATELET COUNT 100 K/uL (130-400); RED BLOOD COUNT 3.34 M/uL (4.2-5.4); WHITE BLOOD COUNT 5.06 K/uL (4.8-10.8)
[2017-06-10 07:11] LABS: BASO % 0.6 %; BASO ABS # 0.03 K/uL (0-0.2); COMPLETE YES; EOS % 3.4 %; GIANT PLATELETS 1+; IG% 0.2 %; LYMPH ABS # 1.01 K/uL (1.2-3.4); MONO % 16.6 %; NEUT % 59.2 %; PLT ESTIMATE DECREASED
--- NOTE | 2017-06-10 07:19 | Clinical Documentation Query ---
CLINICAL DOCUMENTATION QUERY 71 year old female who presents after witnessed seizure and unresponsiveness with pneumonia. In your clinical opinion is this patient being managed for: ( ) Possible aspiration pneumonia in setting of seizure treated with IV antibiotics, seizure precautions, and aspiration precautions. ( ) Other explanation of clinical findings (Please Explain) ( ) Unable to determine (Please Define) ( ) Need to Discuss ( X ) Not Agree: Patient states having fever, cough prior to having ? seizure like activity The medical record reflects the following clinical findings, treatment, and risk factors. Clinical Indicators: Patient with pneumonia per H&P. Prior to admission had witness seizure, unresponsiveness, and CPR performed. CT showed left > right basilar infiltrate. Treatment: IV NSS bolus, IV Ceftriaxone, IV Doxycycline, Aspiration precautions, Risk Factors: Age, seizure, unresponsiveness, CPR, and O2 dependent COPD. Please clarify and document your clinical opinion in the progress notes and discharge summary. Terms such as "probable", "suspected", "likely", "questionable", "possible", or "still to be ruled out" are acceptable. IF IN AGREEMENT, YOU MUST DOCUMENT ABOVE DIAGNOSTIC STATEMENT IN DAILY PROGRESS NOTES AND DISCHARGE SUMMARY. This document is not part of the patient's record. Thank You, Hugo Moore RN [phone]
[2017-06-10] MEDS: FLUTICASONE PROPIONATE NA SPR 16 GM BTL NAE SCH ×2 (07:23→20:57)
[2017-06-10] MEDS: FERROUS SULFATE 325 MG TAB PO SCH ×2 (07:23→17:37)
[2017-06-10] MEDS: FLUTICASONE/SALMETEROL 250/50 (ADVAIR) 14 PUFF/1 INHALER INH SCH ×2 (07:23→20:57)
[2017-06-10] MEDS: OXYBUTYNIN CHLORIDE 5 MG TABCR PO SCH (07:24)
[2017-06-10] MEDS: BUMETANIDE 1 MG TAB PO SCH (07:24)
[2017-06-10] MEDS: LORATADINE 10 MG TAB PO SCH (07:24)
[2017-06-10] MEDS: HydrALAZINE 10 MG TAB PO SCH ×2 (07:24→21:00)
[2017-06-10] MEDS: DOCUSATE SODIUM 100 MG CAP PO SCH ×2 (07:24→20:59)
[2017-06-10] MEDS: BRINZOLAMIDE (AZOPT) OPS 10 ML BTL OPB SCH ×2 (07:24→20:58)
[2017-06-10] MEDS: MONTELUKAST SOD 10 MG TAB PO SCH (07:25)
[2017-06-10] MEDS: GABAPENTIN 600 MG TAB PO SCH ×2 (07:25→20:58)
[2017-06-10] MEDS: CALCITRIOL 0.25 MCG CAP PO SCH (07:25)
[2017-06-10] MEDS: DOXYCYCLINE HYCLATE 100 MG in DEXTROSE 5% 100ML IV SCH (07:31)
[2017-06-10] MEDS: METOPROLOL SUCC 25MG EXT REL TAB PO SCH (09:00)
--- NOTE | 2017-06-10 09:56 | Progress Note ---
Internal Med Progress Note Date of Service: Jun 10, 2017. Provider Documentation: SUBJECTIVE: Seen and examined at bedside. Denies SOB, chest pain, dizziness, palpitations, hemoptysis. Cough is much better No new complaints. OBJECTIVE: Vital Signs-as noted below General Appearance: WD/WN, no apparent distress Head: normocephalic, atraumatic Eyes: normal inspection, PERRL, EOMI, sclerae normal ENT: normal ENT inspection, hearing grossly normal Neck: supple, trachea midline Respiratory/Chest: chest non-tender, normal breath sounds, + pertinent finding (Few creps at bases) Cardiovascular: regular rate, rhythm, no murmur, + pertinent finding (B.L Edema ) Abdomen/GI: normal bowel sounds, non tender, soft Back: normal inspection Extremities/Musculoskelatal: normal inspection, + pertinent finding (b/l LE edema) Neurologic/Psych: program admin II-XII nml as tested, no motor/sensory deficits, alert, oriented x 3 Skin: normal color, warm/dry Lab data as noted below. ASSESSMENT & PLAN: Patient is a 71 Yr female who presented with fever, cough, seizure like activity , intermittent confusion and ? syncope. Community Acquired Pneumonia: No signs of sepsis Continue Doxycycline and Ceftriaxone Day # 3 Lactate:1.3 Blood cultures: No growth Continue Oxygen (On 4L NC at home) Seizure like activity, ? Syncope Family reports intermittent confusion CT head: no acute issues MRI brain: No acute process EEG:pending carotid Doppler: No high grade stenosis Neuro checks Appreciate Neurology Input Ativan PRN for seizures Prolactin levels: normal Seizure precautions P.Atrial fibrillation: H/O Tachybrady syndrome: pacemaker removed s/p vegetation 2010 Rate controlled Monitor INR:2.2 monitor INR, continue Coumadin Continue metoprolol for rate control Mild elevation of Troponin: ? Syncope In setting of recent CPR, CKD, Diastolic CHF Patient denies chest pain cardiac enzymes mildly elevated ECHO:as below Appreciate cardiology input CHRONIC HYPOXIC RESPIRATORY FAILURE COPD No signs of acute exacerbation continue home inhalers Continue oxygen CKD IV: Cr baseline 1.3 to 1.8 Continue to monitor renal function Cr:1.7 today On diuretics Chronic Anemia Hb at baseline Chronic Diastolic heart failure: Continue home diuretics Hypothyroidism: Continue Levothyroxine DVT Px: On Coumadin, INR therapeutic Code Status: Full Code Disposition: Monitor in Tele PT recommends Rehab legal services manager consulted for possible rehab placement PROCEDURES: ECHO: * Left ventricular systolic function is normal. * Ejection Fraction = 55-60%. * There is mild concentric left ventricular hypertrophy. * Flattened septum is consistent with RV pressure/volume overload. * The right ventricle is severely dilated. * The right ventricular systolic function is severely reduced. * The right atrium is severely dilated. * There is severe tricuspid regurgitation. * The estimated systolic PAP is 55mmHg. Carotid Doppler: Somewhat limited exam due to patient body habitus. 50 present narrowing of the internal carotid arteries bilaterally. No evidence for high-grade stenosis. Vital Signs: Date Time Temp Pulse Resp B/P (MAP) Pulse Ox O2 Delivery O2 Flow Rate FiO2 06/10/17 08:45 93 Nasal Cannula 4.0 06/10/17 07:27 37.2 58 20 122/70 (87) 96 Nasal Cannula 4.0 06/10/17 04:35 37.1 51 18 155/74 (101) 93 Nasal Cannula 06/10/17 04:00 Nasal Cannula 4.0 06/10/17 00:01 Nasal Cannula 4.0 06/09/17 23:40 37.4 61 18 150/64 (92) 92 Nasal Cannula 4.0 06/09/17 20:00 Nasal Cannula 4.0 06/09/17 19:53 37.0 55 18 142/70 (94) 93 Nasal Cannula 4.0 06/09/17 16:00 Nasal Cannula 4.0 06/09/17 15:30 37.1 57 18 138/66 (90) 93 Nasal Cannula 4.0 06/09/17 12:00 Nasal Cannula 4.0 06/09/17 11:29 37.0 55 18 137/60 (85) 90 4.0 06/09/17 11:04 57 92 Lab Results: Results Past 24 Hours Test 06/10/17 05:19 Range/Units White Blood Count 5.06 4.8-10.8 K/uL Red Blood Count 3.34 4.2-5.4 M/uL Hemoglobin 10.5 12.0-16.0 g/dL Hematocrit 33.5 37-47 % Mean Corpuscular Volume 100.3 80-100 fL Mean Corpuscular Hemoglobin 31.4 25-34 pg Mean Corpuscular Hemoglobin Concent 31.3 32-36 g/dl Platelet Count 100 130-400 K/uL Mean Platelet Volume 13.4 7.4-10.4 fL Neutrophils (%) (Auto) 59.2 % Lymphocytes (%) (Auto) 20.0 % Monocytes (%) (Auto) 16.6 % Eosinophils (%) (Auto) 3.4 % Basophils (%) (Auto) 0.6 % Neutrophils # (Auto) 3.00 1.4-6.5 K/uL Lymphocytes # (Auto) 1.01 1.2-3.4 K/uL Monocytes # (Auto) 0.84 0.11-0.59 K/uL Eosinophils # (Auto) 0.17 0-0.5 K/uL Basophils # (Auto) 0.03 0-0.2 K/uL RDW Standard Deviation 54.9 36.4-46.3 fL RDW Coefficient of Variation 15.0 11.5-14.5 % Immature Granulocyte % (Auto) 0.2 % Immature Granulocyte # (Auto) 0.01 0.00-0.02 K/uL Platelet Estimate DECREASED Giant Platelets 1+ Prothrombin Time 24.9 9.0-12.0 SECONDS Prothromb Time International Ratio 2.2 0.9-1.1 Sodium Level 142 136-145 mmol/L Potassium Level 3.9 3.5-5.1 mmol/L Chloride Level 102 98-107 mmol/L Carbon Dioxide Level 35 21-32 mmol/L Anion Gap 5.0 3-11 mmol/L Blood Urea Nitrogen 51 7-18 mg/dl Creatinine 1.70 0.60-1.20 mg/dl Est Creatinine Clear Calc Drug Dose 25.5 ml/min Estimated GFR () 34.3 Estimated GFR (Non- 29.6 BUN/Creatinine Ratio 30.1 10-20 Random Glucose 94 70-99 mg/dl Calcium Level 8.9 8.5-10.1 mg/dl
--- NOTE | 2017-06-10 11:09 | Cardiology Follow-Up ---
Subjective General Date of Service: Jun 10, 2017. Pt evaluation today including: conversation w/ patient, physical exam, chart review, lab review, review of studies, conversation w/ child development consultant, review of inpatient medication list History of Present Illness Patient feeling well this AM. No recurrent dizziness, syncope or LOC. No chest pain. SOB at baseline. No edema. Cough improving. No hemoptysis. Allergies Coded Allergies: Levofloxacin (Verified Allergy, Intermediate, HIVES, 01/25/17) Quinolones (Verified Allergy, Intermediate, HIVES, 01/25/17) Ranitidine (Verified Allergy, Intermediate, HIVES, 01/25/17) Sulfamethoxazole (Verified Allergy, Intermediate, HIVES, 01/25/17) Trimethoprim (Verified Allergy, Intermediate, HIVES, 01/25/17) Clarithromycin (Verified Allergy, Mild, HIVES, CAN TAKE ZITHROMAX W/O PROB , 01/25/17) Amoxicillin (Verified Allergy, Unknown, HIVES, 01/25/17) Omeprazole (Verified Allergy, Unknown, HAS HAD PROTONIX, 01/25/17) Social History Smoking Status: Former Smoker Hx Tobacco Use In Past Year?: No Hx Alcohol Use - Type And Amou: No Hx Substance Use - Type And Am: Yes Problem List Medical Problems: (1) Acute kidney injury Status: Acute (2) Atrial flutter Status: Acute (3) Back pain Status: Acute (4) Bilateral knee pain Status: Acute (5) CHF exacerbation Status: Acute (6) Closed head injury Status: Acute (7) Concussion Status: Acute (8) COPD exacerbation Status: Acute (9) Fall Status: Acute (10) Hyperkalemia Status: Acute (11) Hypoxia Status: Acute (12) Lower extremity edema Status: Acute (13) Pneumonia Status: Acute (14) Pneumonia involving right lung Status: Acute (15) Sciatica Status: Acute (16) Sepsis Status: Acute (17) Subtherapeutic international normalized ratio (INR) Status: Acute (18) Weakness Status: Acute Review of Systems Respiratory: + cough, + dyspnea on exertion, No sputum, No wheezing, No dyspnea at rest Cardiac: No chest pain, No orthopnea, No PND, No edema, No palpitations Physical Exam Vital Signs Last Vital Signs Documentation Date Time Temp Pulse Resp B/P (MAP) Pulse Ox O2 Delivery O2 Flow Rate FiO2 06/10/17 08:45 93 Nasal Cannula 4.0 06/10/17 07:27 37.2 58 20 122/70 (87) Physical Exam Constitutional: General Apperance: obese Level of Distress: NAD, chronically ill Psychiatric: Mental Status: active & alert Orientation: to time, to place, to person Head: normocephalic Eyes: Pupils: PERRLA Neck: supple Lungs: Auscultation: no rales/crackles, no rhonchi, deminished air movement Cardiovascular: Heart Auscultation: RRR, normal S1, normal S2, no murmurs Extremities: no cyanosis, no edema Neurologic: Gait & Station: pertinent finding (no focal motor deficit) Cranial Nerves: grossly intact Assessment and Plan Assessment and Plan Assessment & Plan: 71 year old female 1. admission for LOC - syncope vs seizure like activity. No extended arrhythmias on monitor during hospitalization. EEG pending. -echo with preserved LV function, dilated RV consistent wiht pulm disease. Unchanged from prior echo -will schedule patient for outpatient monitor. 2. CAP with COPD - cough improving. Continue treatment per hospitalist. 3. Paroxysmal atrial fib/flutter s/p 2 ablations, most recently in 2016. currently NSR -continue low dose metoprolol -resume coumadin. No recurrent hemoptysis. Hbg at baseline 4. Chronic biventricular heart failure, last LVEF 45% with dilated RV and severe pulmonary hypertension -compensated -echo pending 5. 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 Case discussed with Dr. Fulton. Will arrange outpatient monitor. Stable cardiac signs/symptoms and ok to discharge from cardiac perspective. Cardiology Attending Physician: Patient seen and examined at the bedside. Denies chest pain or shortness of breath. No significant bradycardia, pauses, or heart block on telemetry. There was a short ranjan of paroxysmal atrial tachycardia as well as a short ranjan of nonsustained ventricular tachycardia recorded. There were no associated symptoms. No sustained dysrhythmias. Patient anxiously awaiting discharge. Offers no complaints at this time. PE: VSS. Gen: NAD, AAO x3. Heart: Reg, Normal S1S2, no murmur. Lungs: Clear bilateral. No rales, rhonchi, or wheeze. Ext: No edema. A/P: Agree with above PAC history, physical exam, assessment and plan. Continue current cardiovascular medications as previously ordered. We will order outpatient bus driver/monitor. Will sign off. Please call with questions. Garth Fulton DO, [facility] Laboratory Results Last 24 Hours Test 06/10/17 05:19 White Blood Count 5.06 K/uL Red Blood Count 3.34 M/uL Hemoglobin 10.5 g/dL Hematocrit 33.5 % Mean Corpuscular Volume 100.3 fL Mean Corpuscular Hemoglobin 31.4 pg Mean Corpuscular Hemoglobin Concent 31.3 g/dl Platelet Count 100 K/uL Mean Platelet Volume 13.4 fL Neutrophils (%) (Auto) 59.2 % Lymphocytes (%) (Auto) 20.0 % Monocytes (%) (Auto) 16.6 % Eosinophils (%) (Auto) 3.4 % Basophils (%) (Auto) 0.6 % Neutrophils # (Auto) 3.00 K/uL Lymphocytes # (Auto) 1.01 K/uL Monocytes # (Auto) 0.84 K/uL Eosinophils # (Auto) 0.17 K/uL Basophils # (Auto) 0.03 K/uL RDW Standard Deviation 54.9 fL RDW Coefficient of Variation 15.0 % Immature Granulocyte % (Auto) 0.2 % Immature Granulocyte # (Auto) 0.01 K/uL Platelet Estimate DECREASED Giant Platelets 1+ Prothrombin Time 24.9 SECONDS Prothromb Time International Ratio 2.2 Sodium Level 142 mmol/L Potassium Level 3.9 mmol/L Chloride Level 102 mmol/L Carbon Dioxide Level 35 mmol/L Anion Gap 5.0 mmol/L Blood Urea Nitrogen 51 mg/dl Creatinine 1.70 mg/dl Est Creatinine Clear Calc Drug Dose 25.5 ml/min Estimated GFR () 34.3 Estimated GFR (Non- 29.6 BUN/Creatinine Ratio 30.1 Random Glucose 94 mg/dl Calcium Level 8.9 mg/dl
--- NOTE | 2017-06-10 11:32 | EEG Procedure Note ---
EEG Procedure Note Date of Service Jun 10, 2017. Start / End Times Start Time: 0800 End Time: 829 Referring Physician Katherine ZIMMER History possible seizure realted to [facility] Home Medication List Scheduled Brinzolamide Oph (Azopt Oph), 1 DROP OPB TID Bumetanide (Bumetanide), 1 MG PO DAILY Calcitriol (Calcitriol), 0.25 MCG PO DAILY Docusate Sodium (Colace), 100 MG PO BID Donepezil Hydrochloride (Aricept), 10 MG PO HS Ferrous Sulfate (Iron), 1 TAB PO BID Fluticasone Prop/Salmeterol (Advair Diskus 250/50 60 Dose), 1 PUFF INH BID Fluticasone Propionate (Nasal) (Flonase Allergy Relief), 1 SPRAY PAULIE BID Gabapentin (Neurontin), 300 MG PO DAILY Gabapentin (Neurontin), 600 MG PO [facility] Home O2 Therapy (Oxygen), 4 LITERS NA CONTINOUS Hydralazine HCl (Hydralazine HCl), 10 MG PO BID Levothyroxine Sodium (Levothyroxine Sodium), 75 MCG PO DAILY Loratadine (Claritin), 10 MG PO DAILY Metoprolol Succinate (Metoprolol Succinate ER), 12.5 MG PO DAILY Montelukast Sodium (Singulair), 1 TAB PO DAILY Nitroglycerin (Nitrostat), 0.4 MG SL PRN UD Oxybutynin Chloride (Oxybutynin Chloride Er), 5 MG PO DAILY Pravastatin Sodium (Pravastatin Sodium), 80 MG PO QPM Umeclidinium [place] (Incruse Ellipta), 1 INHA PO DAILY Warfarin Sodium (Coumadin), 2.5-5 MG PO UD Scheduled PRN Albuterol Sulf (Proventil 0.083% 2.5MG/3ML), 2.5 MG INH Q4H PRN for SOB/Wheezing Albuterol Sulfate (Proair Respiclick), 2 PUFFS INH QID PRN for Shortness of Breath Inpatient Medication List Current Inpatient Medications Medications (Trade) Dose Ordered Sig/Mehdi Route Start Time Stop Time Status Last Admin Dose Admin Acetaminophen (Tylenol Tab) 650 mg Q4H PRN PO 06/08/17 16:15 07/08/17 16:14 06/08/17 19:57 650 MG Ondansetron HCl (Zofran Inj) 4 mg Q6H PRN IV 06/08/17 16:15 07/08/17 16:14 Lorazepam (Ativan Inj) 1 mg Q4H PRN IV 06/08/17 16:30 07/08/17 16:29 Albuterol/ Ipratropium (Duoneb) 3 ml QIDR PRN INH 06/08/17 16:45 07/08/17 16:44 Brinzolamide (Azopt) 1 drops BID OPB 06/08/17 21:00 07/08/17 20:59 06/10/17 07:24 1 DROPS Bumetanide (Bumex Tab) 1 mg DAILY PO 06/09/17 09:00 07/09/17 08:59 06/10/17 07:24 1 MG Calcitriol (Rocaltrol Cap) 0.25 mcg DAILY PO 06/09/17 09:00 07/09/17 08:59 06/10/17 07:25 0.25 MCG Docusate Sodium (coLACE CAP) 100 mg BID PO 06/08/17 21:00 07/08/17 20:59 06/10/17 07:24 100 MG Donepezil HCl (Aricept Tab) 10 mg HS PO 06/08/17 21:00 07/08/17 20:59 06/09/17 20:17 10 MG Salmeterol Xinafoate/ Fluticasone (Advair Diskus 250/50 Inh) 1 puff BID INH 06/08/17 21:00 07/08/17 20:59 06/10/17 07:23 1 PUFF Fluticasone Propionate (Flonase Nasal Walker) 1 sprays BID PAULIE 06/08/17 21:00 07/08/17 20:59 06/10/17 07:23 1 SPRAYS Gabapentin (Neurontin Cap) 300 mg DAILY@1200 PO 06/09/17 12:00 07/09/17 11:59 06/09/17 12:41 300 MG Gabapentin (Neurontin Tab) 600 mg BID PO 06/08/17 21:00 07/08/17 20:59 06/10/17 07:25 600 MG Hydralazine HCl (Apresoline Tab) 10 mg BID PO 06/08/17 21:00 07/08/17 20:59 06/10/17 07:24 10 MG Levothyroxine Sodium (Synthroid Tab) 75 mcg DAILYBB PO 06/09/17 06:00 07/09/17 06:59 06/10/17 06:30 75 MCG Loratadine (Claritin Tab) 10 mg DAILY PO 06/09/17 09:00 07/09/17 08:59 06/10/17 07:24 10 MG Metoprolol Succinate (Toprol Xl Tab) 12.5 mg DAILY PO 06/09/17 09:00 07/09/17 08:59 06/10/17 09:00 12.5 MG Montelukast Sodium (Singulair Tab) 10 mg DAILY PO 06/09/17 09:00 07/09/17 08:59 06/10/17 07:25 10 MG Oxybutynin Chloride (Ditropan-Xl Tab) 5 mg DAILY PO 06/09/17 09:00 07/09/17 08:59 06/10/17 07:24 5 MG Warfarin Sodium (Coumadin Tab) 2.5 mg DAILY@1600 PO 06/08/17 18:30 07/08/17 18:29 06/09/17 16:53 2.5 MG Ferrous Sulfate (Feosol Tab) 325 mg BIDM PO 06/08/17 17:57 07/08/17 17:59 06/10/17 07:23 325 MG Pravastatin Sodium (Pravachol Tab) 80 mg QPM PO 06/08/17 21:00 07/08/17 20:59 06/09/17 20:18 80 MG Miscellaneous Information (Order Awaiting Action) 1 ea QS N/A 06/09/17 00:00 07/09/17 00:00 Ceftriaxone Sodium 1000 mg/ Dextrose 60 ml @ 120 mls/hr Q24H IV 06/08/17 19:00 06/15/17 18:59 06/09/17 18:28 120 MLS/HR Doxycycline Hyclate (Vibramycin Cap) 100 mg BID PO 06/10/17 21:00 06/15/17 23:59 Description This is a 21 electrode EEG with a single channel dedicated to limited EKG. The electrodes were placed in accordance with the International 10-20 system. Interpretation Early on in the recording there are prominint electrode artefacts of high amplitude rhythmic nature emanting from the right posterior head leads which clear up midway through the recording later there are a number of clear movement artefacts captured on video analysis and confirmed on eeg Munc of the recording however is sufficiently artefact free to be interpretable and during these intervals there is evidence for a normal background alpha rhythm, centrally predominant mid frequency theta activity and bifrontal beta activituy without anyu evidence for focal slow wave activity or potentially epileptogenic patterns. Clinical Correlation overall while hampered by electrode artefacts and movement induced artefacts the above tracing is essentiallly normal during wakefulness without clear cut evidence for any lateralizing abnormalities and without any potentially epileptogenic patterns
[2017-06-10] MEDS: GABAPENTIN 300 MG CAP PO SCH (12:39)
[2017-06-10] MEDS: WARFARIN SOD 2.5 MG TAB PO SCH (17:36)
[2017-06-10] MEDS: CEFTRIAXONE SOD INJ 1000 MG in DEXTROSE 5% 50ML IV SCH (18:15)
[2017-06-10] MEDS: DONEPEZIL HCL 10 MG TAB PO SCH (20:59)
[2017-06-10] MEDS: PRAVASTATIN SOD 40 MG TAB PO SCH (20:59)
[2017-06-10] MEDS: DOXYCYCLINE HYCLATE 100 MG CAP PO SCH (21:00)
[2017-06-11 04:04] VITALS: BP 152/70; PULSE 52; TEMP 36.9; O2SAT 91
[2017-06-11] MEDS: LEVOTHYROXINE 75 MCG TAB PO SCH (06:05)
[2017-06-11] MEDS: DOCUSATE SODIUM 100 MG CAP PO SCH (07:25)
[2017-06-11] MEDS: FERROUS SULFATE 325 MG TAB PO SCH (07:26)
[2017-06-11] MEDS: LORATADINE 10 MG TAB PO SCH (07:27)
[2017-06-11] MEDS: FLUTICASONE/SALMETEROL 250/50 (ADVAIR) 14 PUFF/1 INHALER INH SCH (07:27)
[2017-06-11] MEDS: FLUTICASONE PROPIONATE NA SPR 16 GM BTL NAE SCH (07:27)
[2017-06-11] MEDS: BRINZOLAMIDE (AZOPT) OPS 10 ML BTL OPB SCH (07:27)
[2017-06-11] MEDS: HydrALAZINE 10 MG TAB PO SCH (07:27)
[2017-06-11] MEDS: BUMETANIDE 1 MG TAB PO SCH (07:27)
[2017-06-11] MEDS: CALCITRIOL 0.25 MCG CAP PO SCH (07:28)
[2017-06-11] MEDS: GABAPENTIN 600 MG TAB PO SCH (07:28)
[2017-06-11] MEDS: MONTELUKAST SOD 10 MG TAB PO SCH (07:28)
[2017-06-11] MEDS: OXYBUTYNIN CHLORIDE 5 MG TABCR PO SCH (07:28)
[2017-06-11] MEDS: DOXYCYCLINE HYCLATE 100 MG CAP PO SCH (07:28)
[2017-06-11] MEDS: METOPROLOL SUCC 25MG EXT REL TAB PO SCH (07:28)
[2017-06-11 07:55] LABS: INR 1.9 (0.9-1.1); PROTHROMBIN TIME (PATIENT) 20.8 SECONDS (9.0-12.0)
[2017-06-11 08:14] VITALS: BP 157/68; PULSE 54; TEMP 37.4; O2SAT 92
[2017-06-11 08:34] VITALS: O2SAT 93
[2017-06-11 11:34] VITALS: BP 150/68; PULSE 72; TEMP 36.9; O2SAT 98
[2017-06-11 12:01] VITALS: O2SAT 93
--- NOTE | 2017-06-11 12:14 | Progress Note ---
Internal Med Progress Note Date of Service: Jun 11, 2017. Provider Documentation: SUBJECTIVE: Seen and examined at bedside. Feels well. Cough much improved. Denies any symptoms. OBJECTIVE: Vital Signs-as noted below General Appearance: WD/WN, no apparent distress Head: normocephalic, atraumatic Eyes: normal inspection, PERRL, EOMI, sclerae normal ENT: normal ENT inspection, hearing grossly normal Neck: supple, trachea midline Respiratory/Chest: chest non-tender, normal breath sounds, + pertinent finding (Few creps at bases) Cardiovascular: regular rate, rhythm, no murmur, + pertinent finding (B.L Edema ) Abdomen/GI: normal bowel sounds, non tender, soft Back: normal inspection Extremities/Musculoskelatal: normal inspection, + pertinent finding (b/l LE edema) Neurologic/Psych: terrazzo mechanic helper II-XII nml as tested, no motor/sensory deficits, alert, oriented x 3 Skin: normal color, warm/dry Lab data as noted below. ASSESSMENT & PLAN: Patient is a 71 Yr female who presented with fever, cough, seizure like activity , intermittent confusion and ? syncope. Community Acquired Pneumonia: No signs of sepsis Continue Doxycycline and Ceftriaxone Day # 4 Lactate:1.3 Blood cultures: No growth Continue Oxygen (On 3L NC at home) Seizure like activity, ? Syncope Family reports intermittent confusion CT head: no acute issues MRI brain: No acute process EEG:No epileptogenic pattern noted carotid Doppler: No high grade stenosis Neuro checks Appreciate Neurology Input Ativan PRN for seizures Prolactin levels: normal Seizure precautions P.Atrial fibrillation: H/O Tachybrady syndrome: pacemaker removed s/p vegetation 2010 Rate controlled Monitor INR:1.9 monitor INR, continue Coumadin Continue metoprolol for rate control Mild elevation of Troponin: ? Syncope In setting of recent CPR, CKD, Diastolic CHF Patient denies chest pain cardiac enzymes mildly elevated ECHO:as below Appreciate cardiology input CHRONIC HYPOXIC RESPIRATORY FAILURE COPD No signs of acute exacerbation continue home inhalers Continue oxygen CKD IV: Cr baseline 1.3 to 1.8 Continue to monitor renal function Cr:at baseline On diuretics Chronic Anemia Hb at baseline Chronic Diastolic heart failure: Continue home diuretics Hypothyroidism: Continue Levothyroxine DVT Px: On Coumadin, INR therapeutic Code Status: Full Code Disposition: Plan to discharge home today Follow up with your Primary Care on June 18, 2017 at 10:45AM Follow up with your helper coordinator in 2 weeks as advised Follow up with your Neurologist in 2-3 weeks as advised for repeat EEG testing Complete the antibiotic course as prescribed Seek immediate medical attention if your symptoms reoccur or worsen PROCEDURES: ECHO: * Left ventricular systolic function is normal. * Ejection Fraction = 55-60%. * There is mild concentric left ventricular hypertrophy. * Flattened septum is consistent with RV pressure/volume overload. * The right ventricle is severely dilated. * The right ventricular systolic function is severely reduced. * The right atrium is severely dilated. * There is severe tricuspid regurgitation. * The estimated systolic PAP is 55mmHg. Carotid Doppler: Somewhat limited exam due to patient body habitus. 50 present narrowing of the internal carotid arteries bilaterally. No evidence for high-grade stenosis. EEG: overall while hampered by electrode artefacts and movement induced artefacts the above tracing is essentially normal during wakefulness without clear cut evidence for any lateralizing abnormalities and without any potentially epileptogenic patterns Vital Signs: Date Time Temp Pulse Resp B/P (MAP) Pulse Ox O2 Delivery O2 Flow Rate FiO2 06/11/17 12:01 93 Nasal Cannula 2.0 06/11/17 11:34 36.9 72 18 150/68 (95) 98 06/11/17 08:34 93 Nasal Cannula 2.0 06/11/17 08:14 37.4 54 18 157/68 (97) 92 Nasal Cannula 06/11/17 04:04 36.9 52 20 152/70 (97) 91 Nasal Cannula 2.0 06/11/17 04:00 Nasal Cannula 2.0 06/11/17 00:00 Nasal Cannula 2.0 06/10/17 23:57 37.0 54 18 147/70 (95) 90 Nasal Cannula 2.0 06/10/17 20:00 Nasal Cannula 2.0 06/10/17 19:29 36.9 51 20 144/60 (88) 90 Nasal Cannula 2.0 06/10/17 16:00 93 Nasal Cannula 4.0 06/10/17 15:55 37.1 49 20 133/63 (86) 96 Nasal Cannula 4.0 06/10/17 12:26 93 Nasal Cannula 4.0 Lab Results: Results Past 24 Hours Test 06/11/17 07:13 Range/Units Prothrombin Time 20.8 9.0-12.0 SECONDS Prothromb Time International Ratio 1.9 0.9-1.1
[2017-06-11] MEDS ORDERED: DXY100 PO (12:17)
[2017-06-11] MEDS ORDERED: CEFU500T16 PO (12:17)
[2017-06-11 12:25] VITALS: BP 150/68; PULSE 72; TEMP 36.9; O2SAT 93
--- NOTE | 2017-06-11 12:26 | Discharge Summary ---
Discharge Summary Date of Service Jun 11, 2017. Discharge Summary Admission Date: Jun 08, 2017 at 16:20 Discharge Date: Jun 11, 2017 Discharge Disposition: Home with services Principal Diagnosis: Pneumonia, Seizure like activity Procedures: ECHO: * Left ventricular systolic function is normal. * Ejection Fraction = 55-60%. * There is mild concentric left ventricular hypertrophy. * Flattened septum is consistent with RV pressure/volume overload. * The right ventricle is severely dilated. * The right ventricular systolic function is severely reduced. * The right atrium is severely dilated. * There is severe tricuspid regurgitation. * The estimated systolic PAP is 55mmHg. Carotid Doppler: Somewhat limited exam due to patient body habitus. 50 present narrowing of the internal carotid arteries bilaterally. No evidence for high-grade stenosis. EEG: overall while hampered by electrode artefacts and movement induced artefacts the above tracing is essentially normal during wakefulness without clear cut evidence for any lateralizing abnormalities and without any potentially epileptogenic patterns CT head; No acute intracranial abnormality. Age-related chronic small vessel change MRI Brain: 1. Mild chronic small vessel change. 2. Otherwise negative study CT ABD: 1. Absent right kidney and appendix. 2. Scattered colonic diverticuli with no evidence of diverticulitis. 3. Gallstones. 4. Left and to lesser extent right basilar infiltrative change Consultations: Neurology, Cardiology Pending Studies/Follow-Up: Follow up with your Primary Care on June 18, 2017 at 10:45AM Follow up with your stunt double in 2 weeks as advised for [facility] Follow up with your Neurologist in 2-3 weeks as advised for repeat EEG testing Complete the antibiotic course as prescribed Seek immediate medical attention if your symptoms reoccur or worsen Medication Reconciliation New Medications: Cefuroxime Axetil (Ceftin) 500 Mg Tab 500 MG PO BID for 4 Days, #8 TAB Doxycycline Hyclate (Doxycycline Hyclate) 100 Mg Cap 100 MG PO BID for 4 Days, #8 CAP Continued Medications: Albuterol Sulf (Proventil 0.083% 2.5MG/3ML) 2.5 Mg/3 Ml Nebu 2.5 MG INH Q4H PRN for SOB/Wheezing, EA Albuterol Sulfate (Proair Respiclick) 108 Mcg/Act Aer 2 PUFFS INH QID PRN for Shortness of Breath Brinzolamide Oph (Azopt Oph) 1 % Ciara 1 DROP OPB TID Bumetanide (Bumetanide) 1 Mg Tab 1 MG PO DAILY for 30 Days, #30 TABS Calcitriol (Calcitriol) 0.25 Mcg Cap 0.25 MCG PO DAILY Docusate Sodium (Colace) 100 Mg Cap 100 MG PO BID, #60 CAP Donepezil Hydrochloride (Aricept) 10 Mg Tab 10 MG PO HS Ferrous Sulfate (Iron) 325 Mg Tab 1 TAB PO BID Fluticasone Prop/Salmeterol (Advair Diskus 250/50 60 Dose) 1 Ea Aerp 1 PUFF INH BID, INHALER Fluticasone Propionate (Nasal) (Flonase Allergy Relief) 50 Mcg/Act Spr 1 SPRAY PAULIE BID Gabapentin (Neurontin) 300 Mg Cap 300 MG PO DAILY 1 HOUR BEFORE LUNCH Gabapentin (Neurontin) 300 Mg Cap 600 MG PO AMHS, CAP Home O2 Therapy (Oxygen) Gas 4 LITERS NA CONTINOUS Hydralazine HCl (Hydralazine HCl) 10 Mg Tab 10 MG PO BID, #60 Levothyroxine Sodium (Levothyroxine Sodium) 75 Mcg Tab 75 MCG PO DAILY, #30 Loratadine (Claritin) 10 Mg Tab 10 MG PO DAILY Metoprolol Succinate (Metoprolol Succinate ER) 25 Mg Tabcr 12.5 MG PO DAILY, #15 Montelukast Sodium (Singulair) 10 Mg Tab 1 TAB PO DAILY for 90 Days, #90 TAB 1 Refill Nitroglycerin (Nitrostat) 0.4 Mg Tab 0.4 MG SL PRN UD, #25 Oxybutynin Chloride (Oxybutynin Chloride Er) 5 Mg Tab 5 MG PO DAILY, #30 Pravastatin Sodium (Pravastatin Sodium) 80 Mg Tab 80 MG PO QPM Umeclidinium [place] (Incruse Ellipta) 62.5 Mcg/Inh Inh 1 INHA PO DAILY Warfarin Sodium (Coumadin) 5 Mg Tab 2.5-5 MG PO UD Admission Information HPI (per Admitting provider): Patient is a 71 Yr female with PMH of Afib on chronic anticoagulation, COPD, CKD IV, Hypothyroidism, HLP, Sleep Apnea, Diastolic heart failure and chronic oxygen dependency presents for evaluation of cough, fever and seizure like activity. Patient and the family are poor historians. Discussed with ED physician and reviewed records to obtain history. As per the family, patient has been having cough with clear expectoration associated with fever since 2 days duration. Today she was found to have sudden onset of severe generalized shakiness for about 10 minutes and patient was awake but confused. Later she was unconscious, turned blue and stopped breathing for about 1 minute and a family friend performed CPR on patient and called EMS. Family reports patient was mumbling and they couldn't understand her. Patient is currently oriented and doesn't remember the events well. Family states patient has been having intermittent confusion. Patient reports mild abdominal discomfort earlier today which improved with bowel movement. Denies any history of chest pain, SOB, dizziness, headache, change in vision, urinary symptoms, weakness, wheezing, runny nose, diarrhea, speech problems, facial deformity, Incontinence, tongue bite. Patient gained few pounds recently and her stunt double increased her diuretic dose. CT head showed no acute pathology. 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 syncope. Community Acquired Pneumonia: No signs of sepsis Continue Doxycycline and Ceftriaxone Day # 4 Lactate:1.3 Blood cultures: No growth Continue Oxygen (On 3L NC at home) Seizure like activity, ? Syncope Family reports intermittent confusion CT head: no acute issues MRI brain: No acute process EEG:No epileptogenic pattern noted carotid Doppler: No high grade stenosis Neuro checks Appreciate Neurology Input Ativan PRN for seizures Prolactin levels: normal Seizure precautions P.Atrial fibrillation: H/O Tachybrady syndrome: pacemaker removed s/p vegetation 2010 Rate controlled Monitor INR:1.9 monitor INR, continue Coumadin Continue metoprolol for rate control Mild elevation of Troponin: ? Syncope In setting of recent CPR, CKD, Diastolic CHF Patient denies chest pain cardiac enzymes mildly elevated ECHO:as below Appreciate cardiology input CHRONIC HYPOXIC RESPIRATORY FAILURE COPD No signs of acute exacerbation continue home inhalers Continue oxygen CKD IV: Cr baseline 1.3 to 1.8 Continue to monitor renal function Cr:at baseline On diuretics Chronic Anemia Hb at baseline Chronic Diastolic heart failure: Continue home diuretics Hypothyroidism: Continue Levothyroxine DVT Px: On Coumadin, INR therapeutic Code Status: Full Code Disposition: Plan to discharge home today Follow up with your Primary Care on June 18, 2017 at 10:45AM Follow up with your stunt double in 2 weeks as advised Follow up with your Neurologist in 2-3 weeks as advised for repeat EEG testing Complete the antibiotic course as prescribed Seek immediate medical attention if your symptoms reoccur or worsen PROCEDURES: ECHO: * Left ventricular systolic function is normal. * Ejection Fraction = 55-60%. * There is mild concentric left ventricular hypertrophy. * Flattened septum is consistent with RV pressure/volume overload. * The right ventricle is severely dilated. * The right ventricular systolic function is severely reduced. * The right atrium is severely dilated. * There is severe tricuspid regurgitation. * The estimated systolic PAP is 55mmHg. Carotid Doppler: Somewhat limited exam due to patient body habitus. 50 present narrowing of the internal carotid arteries bilaterally. No evidence for high-grade stenosis. EEG: overall while hampered by electrode artefacts and movement induced artefacts the above tracing is essentially normal during wakefulness without clear cut evidence for any lateralizing abnormalities and without any potentially epileptogenic patterns Total time spent on discharge = 33 minutes This includes examination of the patient, discharge planning, medication reconciliation, and communication with other providers. Discharge Instructions Discharge Instructions Date of Service Jun 11, 2017. Admission Reason for Admission: COUGH Discharge Discharge Diagnosis / Problem: Pneumonia, Seizure like activity Discharge Goals Goal(s): Decrease discomfort, Improve function Activity Recommendations Activity Limitations: resume your previous activity Exercise/Sports Limitations: as tolerated . Instructions / Follow-Up Instructions / Follow-Up Follow up with your Primary Care on June 18, 2017 at 10:45AM Follow up with your stunt double in 2 weeks as advised for [facility] Follow up with your Neurologist in 2-3 weeks as advised for repeat EEG testing Complete the antibiotic course as prescribed Seek immediate medical attention if your symptoms reoccur or worsen Current Hospital Diet Patient's current hospital diet: AHA Diet (Heart Healthy) Discharge Diet Recommended Diet: AHA Diet (Heart Healthy) Pending Studies Studies pending at discharge: no Medical Emergencies . Who to Call and When: Medical Emergencies: If at any time you feel your situation is an emergency, please call 911 immediately. . Non-Emergent Contact Non-Emergency issues call your: Primary Care Provider, Manager Category, Neurologist Call Non-Emergent contact if: you have a fever, your pain is not controlled, your pain is worsening, your pain is unusual for you, you have any medication questions If your symptoms reoccur or worsen . . "Provider Documentation" section prepared by Salvatore Oviedo. . VTE Core Measure Inpt VTE Proph given/why not?: Warfarin (Coumadin)
[2017-06-11] MEDS: GABAPENTIN 300 MG CAP PO SCH (12:41)
[2017-08-11] MEDS ORDERED: DONE10TA12 PO (05:56)
[2017-08-11] MEDS ORDERED: GABA-113 PO ×2 (08:30)
[2017-08-11] MEDS ORDERED: UMEC1INH PO (12:20)
[2017-08-11] MEDS ORDERED: CLR10 PO (12:20)
[2017-08-11] MEDS ORDERED: BRIN1SUS OPB (12:23)
[2017-08-11] MEDS ORDERED: ALBINS/ INH (12:57)
[2017-08-11] MEDS ORDERED: ALBU18002 INH (12:57)
[2017-08-11] MEDS ORDERED: OXYB5TAB PO (13:37)
[2017-08-11] MEDS ORDERED: PRAV80TA2 PO (13:37)
[2017-08-11] MEDS ORDERED: CALC1CAP36 PO (13:38)
[2017-08-11] MEDS ORDERED: ADVIN25/60 INH (13:41)
[2017-08-11] MEDS ORDERED: TPRSR/25 PO (13:57)
[2017-08-11] MEDS ORDERED: LEVO75TA5 PO (14:15)
[2017-08-11] MEDS ORDERED: FERR1TAB23 PO (14:15)
[2017-08-11] MEDS ORDERED: HYDR-4322 PO (14:15)
== END 2017-06-11 14:19 | disposition home health service (06) | DRG 190 ==
LOC: EDBD 12:59 → C.EDC 13:00 → C.2T 16:20 → EDBEDREQ 16:27 → ENRESERV 16:45
PROVIDERS: ADMIT Internal Medicine; ATTEND Internal Medicine
DX: J44.0 Chronic obstructive pulmonary disease with (acute) lower respiratory infection (principal); J18.9 Pneumonia, unspecified organism; I13.0 Hypertensive heart and chronic kidney disease with heart failure and stage 1 through stage 4 chronic kidney disease, or unspecified chronic kidney disease; N18.4 Chronic kidney disease, stage 4 (severe); I50.42 Chronic combined systolic (congestive) and diastolic (congestive) heart failure; J96.11 Chronic respiratory failure with hypoxia; Q21.1 Atrial septal defect; I48.0 Paroxysmal atrial fibrillation; E03.9 Hypothyroidism, unspecified; E78.5 Hyperlipidemia, unspecified; G47.33 Obstructive sleep apnea (adult) (pediatric); R55 Syncope and collapse; Z87.891 Personal history of nicotine dependence; R79.89 Other specified abnormal findings of blood chemistry; D64.9 Anemia, unspecified; E11.22 Type 2 diabetes mellitus with diabetic chronic kidney disease; K21.9 Gastro-esophageal reflux disease without esophagitis; I27.81 Cor pulmonale (chronic); Z86.79 Personal history of other diseases of the circulatory system; Z86.73 Personal history of transient ischemic attack (TIA), and cerebral infarction without residual deficits; Z82.69 Family history of other diseases of the musculoskeletal system and connective tissue; Z95.0 Presence of cardiac pacemaker; Z88.8 Allergy status to other drugs, medicaments and biological substances; Z99.81 Dependence on supplemental oxygen; Z79.899 Other long term (current) drug therapy; Z95.2 Presence of prosthetic heart valve; Z79.51 Long term (current) use of inhaled steroids; Z79.01 Long term (current) use of anticoagulants

== ENCOUNTER 2017-07-03 11:49 | Emergency (ER) | payer OTHER ==
[~2017-07-03] VITALS: Ht 149.9 cm; Wt 71.8 kg
[~2017-07-03 11:49] MED LIST changes: +DXY100 PO; -OXYC1TAB3 PO
[2017-07-03 12:06] VITALS: TEMP 36.8; Ht 149.9 cm; Wt 71.8 kg
[2017-07-03 12:10] VITALS: O2SAT 95
[2017-07-03] MEDS ORDERED: WARF5TAB7 PO ×2 (12:22)
[2017-07-03 13:12] LABS: INR 1.7 (0.9-1.1); PARTIAL THROMBOPLASTIN RATIO 1.3; PROTHROMBIN TIME (PATIENT) 18.4 SECONDS (9.0-12.0)
[2017-07-03 13:17] LABS: BUN/CREATININE RATIO 27.5 (10-20); CALCIUM 9.5 mg/dl (8.5-10.1); CREATININE 1.7 mg/dl (0.60-1.20); MAGNESIUM 2.2 mg/dl (1.8-2.4); POTASSIUM 4.2 mmol/L (3.5-5.1)
[2017-07-03 13:18] LABS: BASO % 1.1 %; BASO ABS # 0.05 K/uL (0-0.2); EOS % 3.9 %; HEMATOCRIT 33.7 % (37-47); LYMPH % 33.8 %; LYMPH ABS # 1.57 K/uL (1.2-3.4); MEAN CELL VOLUME 101.8 fL (80-100); MEAN CORPUSCULAR HEMOGLOBIN 31.7 pg (25-34); MEAN CORPUSCULAR HGB CONC 31.2 g/dl (32-36); MEAN PLATELET VOLUME 12.5 fL (7.4-10.4); MONO % 12.3 %; NEUT % 48.9 %; RED BLOOD COUNT 3.31 M/uL (4.2-5.4); WHITE BLOOD COUNT 4.64 K/uL (4.8-10.8)
[2017-07-03 13:27] LABS: PLATELET COUNT 130 K/uL (130-400)
[2017-07-03 13:28] LABS: PHOSPHORUS 4.7 mg/dl (2.5-4.9)
[2017-07-03 13:29] LABS: COMPLETE YES; GIANT PLATELETS 1+; PLT ESTIMATE DECREASED
[2017-07-03 14:24] VITALS: BP 146/72; PULSE 48; O2SAT 96
--- NOTE | 2017-07-03 15:08 | EMERGENCY ROOM VISIT NOTE ---
History Report prepared by Kaitlynn: Avery Latham Under the Supervision of: Dr. Nirav Shah M.D. First contact with patient: 12:38 Chief Complaint: SEIZURE Stated Complaint: SEIZURE Nursing Triage Summary: seizure, witnessed by home health nurse, lasted approx 30 seconds. she was asleep at the time was then hard to arouse. Had prior seizure on June 08. Had EEG done last Saturday. History of Present Illness The patient is a 71 year old female who presents to the Emergency Room by EMS with complaints of an episode of generalized seizure-like activity occurring just prior to arrival. The episode was witnessed by a home health nurse and is reported to have lasted for about 30 seconds. She was witnessed "twitching" in her sleep. The patient had a similar episode occur about a month ago. She had an EEG last week. She is on Coumadin. The patient states "I think it was an anxiety attack, because they had me pissed off and mad". Source of History: patient Onset: Just prior to arrival Position: other (generalized) Symptom Intensity: 30 seconds Quality: other (seizure-like activity) Timing: other (episode) Review of Systems See HPI for pertinent positives & negatives. A total of 10 systems reviewed and were otherwise negative. Past Medical & Surgical Medical Problems: (1) Afib (2) Anemia (3) ASD (atrial septal defect) (4) Bradycardia (5) CKD (chronic kidney disease), stage IV (6) COPD (chronic obstructive pulmonary disease) (7) Cough (8) GERD (gastroesophageal reflux disease) (9) H/O unilateral nephrectomy (10) Heart disease (11) HLD (hyperlipidemia) (12) HTN (hypertension) (13) Hypertension (14) Hypothyroid (15) Mild left ventricular systolic dysfunction (16) MRSA bacteremia (17) Pacemaker (18) Right-sided congestive heart failure (19) Solitary kidney (20) Tachy-james syndrome Surgical Problems: (1) H/O thyroidectomy (2) History of appendectomy (3) S/P MVR (mitral valve repair) Family History Heart disease Hypertension Lung disease Social History Smoking Status: Former Smoker Alcohol Use: none Drug Use: none Marital Status: single Housing Status: other Occupation Status: disabled Current/Historical Medications Scheduled Brinzolamide Oph (Azopt Oph), 1 DROP OPB TID Bumetanide (Bumetanide), 1 MG PO DAILY Calcitriol (Calcitriol), 0.25 MCG PO DAILY Docusate Sodium (Colace), 100 MG PO BID Donepezil Hydrochloride (Aricept), 10 MG PO HS Ferrous Sulfate (Iron), 1 TAB PO BID Fluticasone Prop/Salmeterol (Advair Diskus 250/50 60 Dose), 1 PUFF INH BID Fluticasone Propionate (Nasal) (Flonase Allergy Relief), 1 SPRAY PAULIE BID Gabapentin (Neurontin), 300 MG PO DAILY Gabapentin (Neurontin), 600 MG PO AMHS Home O2 Therapy (Oxygen), 4 LITERS NA CONTINOUS Hydralazine HCl (Hydralazine HCl), 10 MG PO BID Levothyroxine Sodium (Levothyroxine Sodium), 75 MCG PO DAILY Loratadine (Claritin), 10 MG PO DAILY Metoprolol Succinate (Metoprolol Succinate ER), 12.5 MG PO DAILY Montelukast Sodium (Singulair), 1 TAB PO DAILY Nitroglycerin (Nitrostat), 0.4 MG SL PRN UD Oxybutynin Chloride (Oxybutynin Chloride Er), 5 MG PO DAILY Pravastatin Sodium (Pravastatin Sodium), 80 MG PO QPM Umeclidinium [place] (Incruse Ellipta), 1 INHA PO DAILY Warfarin Sod (Jantoven), 5 MG PO 5XWK Warfarin Sod (Jantoven), 2.5 MG PO 2XWK Scheduled PRN Albuterol Sulf (Proventil 0.083% 2.5MG/3ML), 2.5 MG INH Q4H PRN for SOB/Wheezing Albuterol Sulfate (Proair Respiclick), 2 PUFFS INH QID PRN for Shortness of Breath Allergies Coded Allergies: Levofloxacin (Verified Allergy, Intermediate, HIVES, 01/25/17) Quinolones (Verified Allergy, Intermediate, HIVES, 01/25/17) Ranitidine (Verified Allergy, Intermediate, HIVES, 01/25/17) Sulfamethoxazole (Verified Allergy, Intermediate, HIVES, 01/25/17) Trimethoprim (Verified Allergy, Intermediate, HIVES, 01/25/17) Clarithromycin (Verified Allergy, Mild, HIVES, CAN TAKE ZITHROMAX W/O PROB , 01/25/17) Amoxicillin (Verified Allergy, Unknown, HIVES, 01/25/17) Omeprazole (Verified Allergy, Unknown, HAS HAD PROTONIX, 01/25/17) Physical Exam Vital Signs Date Time Temp Pulse Resp B/P (MAP) Pulse Ox O2 Delivery O2 Flow Rate FiO2 07/03/17 14:24 48 16 146/72 96 Nasal Cannula 3.0 07/03/17 14:09 55 13 07/03/17 14:01 168/63 07/03/17 13:54 56 23 07/03/17 13:39 45 19 07/03/17 13:31 148/93 07/03/17 13:24 45 21 07/03/17 13:09 46 18 07/03/17 13:01 44 18 162/59 Nasal Cannula 3.0 07/03/17 13:01 162/59 07/03/17 12:54 45 19 07/03/17 12:39 60 20 07/03/17 12:34 46 16 07/03/17 12:32 151/59 07/03/17 12:19 54 17 07/03/17 12:10 95 Nasal Cannula 07/03/17 12:09 55 07/03/17 12:06 36.8 88 18 135/104 95 Room Air 07/03/17 12:01 135/104 Physical Exam GENERAL: Patient is a healthy-appearing well-nourished female HEAD: Normocephalic atraumatic EYES: Ocular movements intact pupils equal and react to light OROPHARYNX mucous membranes are moist no exudates present no erythema or edema present NECK: Supple no nuchal rigidity CHEST: Good equal expansion LUNGS: Clear and equal to auscultation CARDIAC: Normal S1 and S2 ABDOMEN: Soft nontender no guarding BACK: No CVA tenderness EXTREMITIES: No pain upon palpation normal muscle strength in all groups no clubbing cyanosis or edema NEURO: Patient is following commands and answering questions appropriately. Alert and oriented x3 Cranial Nerves 2-12 grossly intact Medical Decision & Procedures Laboratory Results 07/03/17 12:10 Red Blood Count 3.31, Mean Corpuscular Volume 101.8, Mean Corpuscular Hemoglobin 31.7, Mean Corpuscular Hemoglobin Concent 31.2, Mean Platelet Volume 12.5, Neutrophils (%) (Auto) 48.9, Lymphocytes (%) (Auto) 33.8, Monocytes (%) ( Auto) 12.3, Eosinophils (%) (Auto) 3.9, Basophils (%) (Auto) 1.1, Neutrophils # (Auto) 2.27, Lymphocytes # (Auto) 1.57, Monocytes # (Auto) 0.57, Eosinophils # ( Auto) 0.18, Basophils # (Auto) 0.05 07/03/17 12:10 Test 07/03/17 12:10 07/03/17 13:06 White Blood Count 4.64 K/uL (4.8-10.8) Red Blood Count 3.31 M/uL (4.2-5.4) Hemoglobin 10.5 g/dL (12.0-16.0) Hematocrit 33.7 % (37-47) Mean Corpuscular Volume 101.8 fL (80-100) Mean Corpuscular Hemoglobin 31.7 pg (25-34) Mean Corpuscular Hemoglobin Concent 31.2 g/dl (32-36) Platelet Count 130 K/uL (130-400) Mean Platelet Volume 12.5 fL (7.4-10.4) Neutrophils (%) (Auto) 48.9 % Lymphocytes (%) (Auto) 33.8 % Monocytes (%) (Auto) 12.3 % Eosinophils (%) (Auto) 3.9 % Basophils (%) (Auto) 1.1 % Neutrophils # (Auto) 2.27 K/uL (1.4-6.5) Lymphocytes # (Auto) 1.57 K/uL (1.2-3.4) Monocytes # (Auto) 0.57 K/uL (0.11-0.59) Eosinophils # (Auto) 0.18 K/uL (0-0.5) Basophils # (Auto) 0.05 K/uL (0-0.2) RDW Standard Deviation 56.0 fL (36.4-46.3) RDW Coefficient of Variation 15.1 % (11.5-14.5) Immature Granulocyte % (Auto) 0.0 % Immature Granulocyte # (Auto) 0.00 K/uL (0.00-0.02) Platelet Estimate DECREASED Giant Platelets 1+ Macrocytosis PRESENT Prothrombin Time 18.4 SECONDS (9.0-12.0) Prothromb Time International Ratio 1.7 (0.9-1.1) Activated Partial Thromboplast Time 33.6 SECONDS (21.0-31.0) Partial Thromboplastin Ratio 1.3 Anion Gap 2.0 mmol/L (3-11) Est Creatinine Clear Calc Drug Dose 25.8 ml/min Estimated GFR () 34.3 Estimated GFR (Non- 29.6 BUN/Creatinine Ratio 27.5 (10-20) Calcium Level 9.5 mg/dl (8.5-10.1) Phosphorus Level 4.7 mg/dl (2.5-4.9) Magnesium Level 2.2 mg/dl (1.8-2.4) Thyroid Stimulating Hormone (TSH) 8.000 uIu/ml (0.300-4.500) Bedside Glucose 83 mg/dl (70-90) Labs reviewed by ED physician. ECG Indication: other (seizure-like activity) Rate (beats per minute): 44 Rhythm: sinus bradycardia Findings: RBBB, no acute ischemic change, no ectopy ED Course 1245: Past medical records reviewed. The patient was evaluated in room B7. A complete history and physical examination was performed. 1500: Upon reexamination the patient is resting comfortably. I discussed results and treatment plan with the patient. She verbalizes agreement and understanding. The patient is ready for discharge. Medical Decision Differential diagnosis: Etiologies such as infection, hypoglycemia, electrolyte abnormalities, cardiac sources, intracerebral event, trauma, toxicologic, neurologic, as well as others were entertained. This is a 71-year-old female who presents emergency department over an episode of twitching she had while she was sleeping. Upon arrival to the emergency department the patient does not wish to be here and wishes to go home area I will note her CBC and renal profile are at her baseline and I do feel that the patient is well enough to be discharged home. The patient was fed in the emergency department and she had no complaints. Patient believes the episode is due to the fact that she was agitated about something at home. The patient will follow-up with her neurologist. Impression Primary Impression: Seizure Scribe Attestation The scribe's documentation has been prepared under my direction and personally reviewed by me in its entirety. I confirm that the note above accurately reflects all work, treatment, procedures, and medical decision making performed by me. Departure Information Dispostion Home / Self-Care Referrals Holencik,Jodi D.O. (PCP) Forms HOME CARE DOCUMENTATION FORM, IMPORTANT VISIT INFORMATION Patient Instructions ED Seizure Recurrent, [facility] Additional Instructions Follow up with Dr Edgar's office You were found to have an elevated blood pressure today (>120 sytolic or >90 diastolic). Per medicare guidelines, you need to follow up with this blood pressure screening with your Primary Care Physician (PCP). For a new PCP call [phone]. You have been examined and treated today on an emergency basis only. This is not a substitute for, or an effort to provide, complete comprehensive medical care. It is impossible to recognize and treat all injuries or illnesses in a single emergency department visit. It is therefore important that you follow up closely with Dr South. Call as soon as possible for an appointment. Thank you for your time and consideration. I look forward to speaking with you again soon. Please don't hesitate to call us if you have any questions.
[2017-08-11] MEDS ORDERED: DONE10TA12 PO (05:56)
[2017-08-11] MEDS ORDERED: GABA-113 PO ×2 (08:30)
[2017-08-11] MEDS ORDERED: UMEC1INH PO (12:20)
[2017-08-11] MEDS ORDERED: CLR10 PO (12:20)
[2017-08-11] MEDS ORDERED: BRIN1SUS OPB (12:23)
[2017-08-11] MEDS ORDERED: ALBINS/ INH (12:57)
[2017-08-11] MEDS ORDERED: ALBU18002 INH (12:57)
[2017-08-11] MEDS ORDERED: PRAV80TA2 PO (13:37)
[2017-08-11] MEDS ORDERED: OXYB5TAB PO (13:37)
[2017-08-11] MEDS ORDERED: CALC1CAP36 PO (13:38)
[2017-08-11] MEDS ORDERED: ADVIN25/60 INH (13:41)
[2017-08-11] MEDS ORDERED: TPRSR/25 PO (13:57)
[2017-08-11] MEDS ORDERED: FERR1TAB23 PO (14:15)
[2017-08-11] MEDS ORDERED: HYDR-4322 PO (14:15)
[2017-08-11] MEDS ORDERED: LEVO75TA5 PO (14:15)
== END 2017-07-03 14:52 | disposition home or self-care (01) ==
LOC: EDBD 11:49 → C.EDB 11:50
DX: R56.9 Unspecified convulsions (principal); Z79.01 Long term (current) use of anticoagulants; I48.91 Unspecified atrial fibrillation; D64.9 Anemia, unspecified; Q21.1 Atrial septal defect; N18.4 Chronic kidney disease, stage 4 (severe); I12.9 Hypertensive chronic kidney disease with stage 1 through stage 4 chronic kidney disease, or unspecified chronic kidney disease; J44.9 Chronic obstructive pulmonary disease, unspecified; K21.9 Gastro-esophageal reflux disease without esophagitis; Z90.5 Acquired absence of kidney; E78.5 Hyperlipidemia, unspecified; Z95.0 Presence of cardiac pacemaker; E89.0 Postprocedural hypothyroidism; Z82.49 Family history of ischemic heart disease and other diseases of the circulatory system; Z87.891 Personal history of nicotine dependence; Z79.899 Other long term (current) drug therapy

== ENCOUNTER 2017-08-11 14:20 | Inpatient (IN) | payer OTHER ==
[~2017-08-11] VITALS: Ht 149.9 cm; Wt 74.9 kg
[~2017-08-11 14:20] MED LIST changes: +ADVIN25/60 INH; +ALBINS/ INH; +ALBU18002 INH; +BRIN1SUS OPB; +CALC1CAP36 PO; +CLR10 PO; +DONE10TA12 PO; -DXY100 PO; +FERR1TAB23 PO; +GABA-113 PO; +HYDR-4322 PO; +LEVO75TA5 PO; +OXYB5TAB PO; +PRAV80TA2 PO; +TPRSR/25 PO; +UMEC1INH PO; +WARF5TAB7 PO; -WARF5TAB90 PO
[2017-08-11 14:59] LABS: BASO % 0.9 %; BASO ABS # 0.04 K/uL (0-0.2); COMPLETE YES; HEMATOCRIT 34.7 % (37-47); LYMPH % 26.9 %; LYMPH ABS # 1.22 K/uL (1.2-3.4); MEAN CELL VOLUME 100.3 fL (80-100); MEAN CORPUSCULAR HEMOGLOBIN 31.5 pg (25-34); MEAN CORPUSCULAR HGB CONC 31.4 g/dl (32-36); MEAN PLATELET VOLUME 12.1 fL (7.4-10.4); MONO % 13.9 %; NEUT % 54.3 %; PLATELET COUNT 143 K/uL (130-400); RED BLOOD COUNT 3.46 M/uL (4.2-5.4); WHITE BLOOD COUNT 4.54 K/uL (4.8-10.8)
--- NOTE | 2017-08-11 14:59 | DIAGNOSTIC IMAGING REPORT ---
CHEST ONE VIEW PORTABLE CLINICAL HISTORY: 71 years-old Female presenting with CHEST PAIN. TECHNIQUE: Portable upright AP view of the chest was obtained. COMPARISON: 06/08/2017. FINDINGS: Atherosclerosis of aortic arch. Enlargement of the main pulmonary artery, unchanged. Cardiac silhouette also remains enlarged. Surgical material projecting over the right hilum likely consisting of epicardial pacing lead and surgical clips, unchanged. Persistent linear opacities lung bases. No new focal infiltrate. No large effusion or pneumothorax. Osseous structures normal. Upper abdomen normal. IMPRESSION: 1. No new focal infiltrate. 2. Chronic findings of pulmonary arterial enlargement likely suggesting pulmonary artery hypertension. 3. Cardiomegaly. 4. Persistent bilateral scarring or atelectasis. Electronically signed by: Kin Garrett M.D. 08/11/2017 2:57 PM Dictated Date/Time: 08/11/2017 2:56 PM
--- NOTE | 2017-08-11 15:06 | EMERGENCY ROOM VISIT NOTE ---
History Report prepared by Kaitlynn: Avery Latham Under the Supervision of: Dr. Bright Maurer M.D. First contact with patient: 14:20 Chief Complaint: SWELLING TO EXTREMITY Stated Complaint: LOWER EXTREMITY EDEMA History of Present Illness The patient is a 71 year old female who presents to the Emergency Room with complaints of persistent bilateral leg swelling beginning this week. Per EMS, the patient has swelling in her bilateral thighs. They state that the patient's reported that the patient's thighs appeared three-times the size that they usually do. The patient has a history of heart failure. She notes that she fell last night after slipping on a piece of ice but denies any injury from this fall. She wears 3 L of supplemental oxygen by nasal canula at home. The patient also complains of bilateral knee pain. She denies any chest pain, abdominal pain, abdominal distension, fevers, chills, or shortness of breath. She has a history of a seizure-disorder but denies any recent seizures. Source of History: patient, EMS Onset: this week Position: leg (bilateral) Quality: other (swelling) Timing: other (persistent) Associated Symptoms: No fevers, No chills, No chest pain, No SOB, No abdominal pain Note: The patient also complains of bilateral knee pain. She denies abdominal distension. Review of Systems See HPI for pertinent positives & negatives. A total of 10 systems reviewed and were otherwise negative. 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 Nurse's notes were reviewed and I agree with. Family History Heart disease Hypertension Lung disease Social History Smoking Status: Former Smoker Alcohol Use: none Drug Use: none Marital Status: single Housing Status: other Occupation Status: disabled Current/Historical Medications Scheduled Brinzolamide Oph (Azopt Oph), 1 DROP OPB TID Bumetanide (Bumex), 2 MG PO 3XWK Bumetanide (Bumex), 1 MG PO 4XWK Calcitriol (Calcitriol), 0.25 MCG PO DAILY Docusate Sodium (Colace), 100 MG PO BID Donepezil Hydrochloride (Aricept), 10 MG PO HS Ferrous Sulfate (Iron), 1 TAB PO BID Fluticasone Prop/Salmeterol (Advair Diskus 250/50 60 Dose), 1 PUFF INH BID Fluticasone Propionate (Nasal) (Flonase Allergy Relief), 1 SPRAY PAULIE BID Gabapentin (Neurontin), 300 MG PO DAILY Gabapentin (Neurontin), 600 MG PO AMHS Home O2 Therapy (Oxygen), 3 LITERS NA CONTINOUS Hydralazine HCl (Hydralazine HCl), 10 MG PO BID Levothyroxine Sodium (Levothyroxine Sodium), 75 MCG PO DAILY Loratadine (Claritin), 10 MG PO DAILY Metoprolol Succinate (Metoprolol Succinate ER), 12.5 MG PO DAILY Nitroglycerin (Nitrostat), 0.4 MG SL PRN UD Oxybutynin Chloride (Oxybutynin Chloride Er), 5 MG PO DAILY Pantoprazole (Pantoprazole Sodium), 40 MG PO DAILY Pravastatin Sodium (Pravastatin Sodium), 80 MG PO QPM Umeclidinium Sharon (Incruse Ellipta), 1 INHA PO DAILY Warfarin Sodium (Warfarin Sodium), 5 MG PO DAILY Scheduled PRN Albuterol Sulf (Proventil 0.083% 2.5MG/3ML), 2.5 MG INH Q4H PRN for SOB/Wheezing Albuterol Sulfate (Proair Respiclick), 2 PUFFS INH QID PRN for Shortness of Breath Allergies Coded Allergies: Levofloxacin (Verified Allergy, Intermediate, HIVES, 01/25/17) Quinolones (Verified Allergy, Intermediate, HIVES, 01/25/17) Ranitidine (Verified Allergy, Intermediate, HIVES, 01/25/17) Sulfamethoxazole (Verified Allergy, Intermediate, HIVES, 01/25/17) Trimethoprim (Verified Allergy, Intermediate, HIVES, 01/25/17) Clarithromycin (Verified Allergy, Mild, HIVES, CAN TAKE ZITHROMAX W/O PROB , 01/25/17) Amoxicillin (Verified Allergy, Unknown, HIVES, 01/25/17) Omeprazole (Verified Allergy, Unknown, HAS HAD PROTONIX, 01/25/17) Physical Exam Vital Signs Date Time Temp Pulse Resp B/P (MAP) Pulse Ox O2 Delivery O2 Flow Rate FiO2 08/11/17 16:35 71 22 148/83 93 Nasal Cannula 3.0 08/11/17 14:28 36.8 54 24 174/68 91 Nasal Cannula 3.0 Physical Exam General: Chronically ill-appearing older female. Baseline nasal canula. No acute distress. HEENT: Normal cephalic atraumatic. Pupils are equal round and reactive to light. Extraocular movements are intact. Oropharynx is pink with moist mucous membranes. No swelling of the mouth lips or tongue. Neck: Supple with a midline trachea. No meningeal signs or stiffness, no JVD or bruits. No Stridor. Chest: Clear to auscultation bilaterally. No wheezes or rhonchi. No increased work of breathing. Heart: regular rate and rhythm. Abdomen: Soft nontender, nondistended without rebound guarding or rigidity. Extremities: No cyanosis clubbing. No calf tenderness or assymetry. 1+ pitting edema bilaterally. Spine/Back. Non tender to palpation. No CVA tenderness Skin: Good turgor without rashes. Neurologic exam: Cranial nerves two through 12 are intact. Motor and sensation are intact and symmetrical throughout. Medical Decision & Procedures ER Provider Diagnostic Interpretation: X-ray results as stated below per interpretation by me and the radiologist: CHEST ONE VIEW PORTABLE FINDINGS: Atherosclerosis of aortic arch. Enlargement of the main pulmonary artery, unchanged. Cardiac silhouette also remains enlarged. Surgical material projecting over the right hilum likely consisting of epicardial pacing lead and surgical clips, unchanged. Persistent linear opacities lung bases. No new focal infiltrate. No large effusion or pneumothorax. Osseous structures normal. Upper abdomen normal. IMPRESSION: 1. No new focal infiltrate. 2. Chronic findings of pulmonary arterial enlargement likely suggesting pulmonary artery hypertension. 3. Cardiomegaly. 4. Persistent bilateral scarring or atelectasis. Electronically signed by: Kin Garrett M.D. 08/11/2017 2:57 PM Laboratory Results 08/11/17 14:40 Red Blood Count 3.46, Mean Corpuscular Volume 100.3, Mean Corpuscular Hemoglobin 31.5, Mean Corpuscular Hemoglobin Concent 31.4, Mean Platelet Volume 12.1, Neutrophils (%) (Auto) 54.3, Lymphocytes (%) (Auto) 26.9, Monocytes (%) ( Auto) 13.9, Eosinophils (%) (Auto) 4.0, Basophils (%) (Auto) 0.9, Neutrophils # (Auto) 2.47, Lymphocytes # (Auto) 1.22, Monocytes # (Auto) 0.63, Eosinophils # ( Auto) 0.18, Basophils # (Auto) 0.04 08/11/17 14:40 08/11/17 16:10 Test 08/11/17 14:40 08/11/17 14:49 08/11/17 16:10 White Blood Count 4.54 K/uL (4.8-10.8) Red Blood Count 3.46 M/uL (4.2-5.4) Hemoglobin 10.9 g/dL (12.0-16.0) Hematocrit 34.7 % (37-47) Mean Corpuscular Volume 100.3 fL (80-100) Mean Corpuscular Hemoglobin 31.5 pg (25-34) Mean Corpuscular Hemoglobin Concent 31.4 g/dl (32-36) Platelet Count 143 K/uL (130-400) Mean Platelet Volume 12.1 fL (7.4-10.4) Neutrophils (%) (Auto) 54.3 % Lymphocytes (%) (Auto) 26.9 % Monocytes (%) (Auto) 13.9 % Eosinophils (%) (Auto) 4.0 % Basophils (%) (Auto) 0.9 % Neutrophils # (Auto) 2.47 K/uL (1.4-6.5) Lymphocytes # (Auto) 1.22 K/uL (1.2-3.4) Monocytes # (Auto) 0.63 K/uL (0.11-0.59) Eosinophils # (Auto) 0.18 K/uL (0-0.5) Basophils # (Auto) 0.04 K/uL (0-0.2) RDW Standard Deviation 55.2 fL (36.4-46.3) RDW Coefficient of Variation 15.2 % (11.5-14.5) Immature Granulocyte % (Auto) 0.0 % Immature Granulocyte # (Auto) 0.00 K/uL (0.00-0.02) Prothrombin Time 61.5 SECONDS (9.0-12.0) Prothromb Time International Ratio 5.4 (0.9-1.1) Activated Partial Thromboplast Time 51.6 SECONDS (21.0-31.0) Partial Thromboplastin Ratio 2.0 Anion Gap 5.0 mmol/L (3-11) Est Creatinine Clear Calc Drug Dose 24.6 ml/min Estimated GFR () 32.0 Estimated GFR (Non- 27.6 BUN/Creatinine Ratio 19.6 (10-20) Calcium Level 9.4 mg/dl (8.5-10.1) Total Bilirubin 0.4 mg/dl (0.2-1) Alanine Aminotransferase (ALT/SGPT) 12 U/L (12-78) Alkaline Phosphatase 47 U/L (45-117) Pro-B-Type Natriuretic Peptide 4591 pg/ml (0-900) Total Protein 6.6 gm/dl (6.4-8.2) Albumin 2.8 gm/dl (3.4-5.0) Lipase 145 U/L (73-393) Thyroid Stimulating Hormone (TSH) 8.570 uIu/ml (0.300-4.500) Bedside Troponin I 0.030 ng/ml (0-0.045) Direct Bilirubin 0.2 mg/dl (0-0.2) Aspartate Amino Transf (AST/SGOT) 17 U/L (15-37) Laboratory studies as stated above per my review. Medications Administered Medications (Trade) Dose Ordered Sig/Mehdi Route Start Time Stop Time Status Last Admin Dose Admin Bumetanide (Bumex IV) 1 mg NOW ONCE IV 08/11/17 15:45 08/11/17 15:46 DC 08/11/17 16:19 1 MG ECG Indication: other (leg swelling) Rate (beats per minute): 44 Rhythm: sinus bradycardia Findings: LAFB, RBBB, other (Lateral T-wave abnormality. ) Comparison ECG Date: July 03, 2017 Change: no significant change ED Course 1421: Past medical records reviewed. The patient was evaluated in room C6, and a complete history and physical examination were performed. 1502: I reassessed the patient. Her family is at bedside. They state that the patient has not been taking her medication recently. They are worried about her. 1545: Ordered Bumex 1 mg IV. 1555: Upon reevaluation, the patient is resting comfortably. I discussed the results and treatment plan with the patient. She verbalized agreement of the treatment plan. The patient will be evaluated for further management. Medical Decision Differentials include, but are not limited to; CHF, acute coronary syndrome, infection, renal insufficiency, and electrolyte or metabolic abnormality. This patient comes in as described above. She is brought in after having increasing looks any edema. She has a very complicated medical history. Her daughter approaches me and tells me she is not taking her fluid pills. She appears in no distress. She is on baseline oxygen. IV access established EKG was obtained. Chest x-ray and multiple blood testing was obtained. Her EKG shows baseline sinus bradycardia at is completely unchanged from previous EKG. Chest x-ray shows cardiomegaly. She was reassessed frequently. She's remained stable. Her daughter tells me that she does not think she actually takes her medications and they have been talking about getting more of a placement. She does have chronic renal insufficiency. Her BNP is elevated. She's had nothing to suggest acute coronary syndrome. No other acute electrolyte or metabolic abnormalities she was given additional Bumex 1 mg IV. I do think she needs to be admitted/observed for further treatment and evaluation and possible placement. I did consult the [facility] hospitalist to see her in the ER. Medication Reconcilliation Current Medication List: was personally reviewed by me Blood Pressure Screening Patient's blood pressure: Elevated blood pressure Blood pressure disposition: Referred to PCP Consults Time Called: 1550 Consulting Physician: Dr. Borja -[facility] [place] Returned Call: 1555 Discussed the patient's case. The patient will be evaluated for further management. Impression Primary Impression: CHF (congestive heart failure) Additional Impression: Peripheral edema Scribe Attestation The scribe's documentation has been prepared under my direction and personally reviewed by me in its entirety. I confirm that the note above accurately reflects all work, treatment, procedures, and medical decision making performed by me. Departure Information Dispostion Being Evaluated By Hospitalist Referrals Jodi South D.O. (PCP) Patient Instructions My [facility] Problem Qualifiers
[2017-08-11 15:16] LABS: PROTHROMBIN TIME (PATIENT) 61.5 SECONDS (9.0-12.0)
[2017-08-11 15:26] LABS: INR 5.4 (0.9-1.1)
[2017-08-11] MEDS ORDERED: WARF-246 PO (15:32)
[2017-08-11] MEDS ORDERED: PRT/40 PO (15:32)
[2017-08-11] MEDS ORDERED: BUME1TAB PO ×2 (15:32)
[2017-08-11 15:35] LABS: ALKALINE PHOSPHATASE 47 U/L (45-117); ALT/SGPT 12 U/L (12-78); BLOOD UREA NITROGEN 35 mg/dl (7-18); BUN/CREATININE RATIO 19.6 (10-20); CALCIUM 9.4 mg/dl (8.5-10.1); CARBON DIOXIDE 33 mmol/L (21-32); CHLORIDE 105 mmol/L (98-107); GLUCOSE 87 mg/dl (70-99); SODIUM 143 mmol/L (136-145)
[2017-08-11] MEDS ORDERED: BUMETANIDE SOLN 1 MG/4 ML VIAL IV ONE (15:45)
[2017-08-11 16:30] LABS: POTASSIUM 3.7 mmol/L (3.5-5.1)
[2017-08-11] MEDS ORDERED: NITROGLYCERIN 0.4 MG SL PER TAB CHARGE SL PRN ×2 (16:45→21:30)
[2017-08-11] MEDS ORDERED: POLYETHYLENE (MIRALAX) 17 GM PACK PO PRN (16:45)
--- NOTE | 2017-08-11 16:55 | History and Physical ---
History & Physical Date & Time of Service: Aug 11, 2017 at 16:51 Chief Complaint: Lower Extremity Edema Primary Care Physician: Jodi South D.O. History of Present Illness Source: patient, family, clinic records, hospital records 71 yo F with h/o CHF on Bumex with recent increase as outpatient presents with worsening of her leg swelling. She was recently admitted 06/08- for pneumonia. She denies any weight gain, chest pain, shortness of breath and has not required an increase of her chronic home oxygen. She reports being compliant with medications. Lives with daughter and has Home Health, who states that she is declining and needs placement but daughter doesn't think so. Denies worsening of cough, but has had cold symptoms for the past 1 week and patient declines taking any OTC medications. Denies sore throat or difficulty swallowing. Reports fevers and chills with Tm 98.6 at home. Denies UTI symptoms. The patient is a very poor historian who does not know her medications and appears to have poor insight into her disease processes. Also, there is frequent combativeness with the daughter who is present at bedside. Past Medical/Surgical History Medical Problems: (1) Afib Permanent Comment: s/p ablation Status: Chronic (2) Anemia Status: Chronic (3) ASD (atrial septal defect) Permanent Comment: repaired Status: Chronic (4) CKD (chronic kidney disease), stage IV Status: Chronic (5) COPD (chronic obstructive pulmonary disease) Status: Chronic (6) GERD (gastroesophageal reflux disease) Status: Chronic (7) H/O unilateral nephrectomy Permanent Comment: right Status: Chronic (8) Heart disease Permanent Comment: mild CAD cath 2007 Status: Chronic (9) HLD (hyperlipidemia) Status: Chronic (10) HTN (hypertension) Status: Chronic (11) Hypertension Status: Chronic (12) Hypothyroid Status: Chronic (13) Mild left ventricular systolic dysfunction Permanent Comment: EF 45-49% echo 04/2016 Status: Chronic (14) MRSA bacteremia Permanent Comment: in the setting of pacemaker vegetation (08/2011) and discitis (02/2012) Status: Resolved (15) Pacemaker Permanent Comment: removed 2010 due to infection Status: Chronic (16) Right-sided congestive heart failure Status: Chronic (17) Solitary kidney Status: Chronic (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 Surgical Problems: (1) H/O thyroidectomy Status: Chronic (2) History of appendectomy Status: Chronic (3) S/P MVR (mitral valve repair) Status: Chronic Family History Heart disease Hypertension Lung disease Social History Smoking Status: Former Smoker Smokeless Tobacco Use: No Alcohol Use: none Drug Use: none Marital Status: single Housing status: lives with family Occupational Status: disabled Immunizations History of Influenza Vaccine: Yes Influenza Vaccine Date: Oct 06, 2016 History of Tetanus Vaccine?: Yes Tetanus Immunization Date: Jul 08, 2015 History of Pneumococcal: Yes Pneumococcal Date: May 20, 2015 Multi-Drug Resistant Organisms History of MDRO: Yes Type of MDRO: MRSA Allergies Coded Allergies: Levofloxacin (Verified Allergy, Intermediate, HIVES, 01/25/17) Quinolones (Verified Allergy, Intermediate, HIVES, 01/25/17) Ranitidine (Verified Allergy, Intermediate, HIVES, 01/25/17) Sulfamethoxazole (Verified Allergy, Intermediate, HIVES, 01/25/17) Trimethoprim (Verified Allergy, Intermediate, HIVES, 01/25/17) Clarithromycin (Verified Allergy, Mild, HIVES, CAN TAKE ZITHROMAX W/O PROB , 01/25/17) Amoxicillin (Verified Allergy, Unknown, HIVES, 01/25/17) Omeprazole (Verified Allergy, Unknown, HAS HAD PROTONIX, 01/25/17) Home Medications Scheduled Brinzolamide Oph (Azopt Oph), 1 DROP OPB TID Bumetanide (Bumex), 2 MG PO 3XWK Bumetanide (Bumex), 1 MG PO 4XWK Calcitriol (Calcitriol), 0.25 MCG PO DAILY Docusate Sodium (Colace), 100 MG PO BID Donepezil Hydrochloride (Aricept), 10 MG PO HS Ferrous Sulfate (Iron), 1 TAB PO BID Fluticasone Prop/Salmeterol (Advair Diskus 250/50 60 Dose), 1 PUFF INH BID Fluticasone Propionate (Nasal) (Flonase Allergy Relief), 1 SPRAY PAULIE BID Gabapentin (Neurontin), 300 MG PO DAILY Gabapentin (Neurontin), 600 MG PO AMHS Home O2 Therapy (Oxygen), 3 LITERS NA CONTINOUS Hydralazine HCl (Hydralazine HCl), 10 MG PO BID Levothyroxine Sodium (Levothyroxine Sodium), 75 MCG PO DAILY Loratadine (Claritin), 10 MG PO DAILY Metoprolol Succinate (Metoprolol Succinate ER), 12.5 MG PO DAILY Nitroglycerin (Nitrostat), 0.4 MG SL PRN UD Oxybutynin Chloride (Oxybutynin Chloride Er), 5 MG PO DAILY Pantoprazole (Pantoprazole Sodium), 40 MG PO DAILY Pravastatin Sodium (Pravastatin Sodium), 80 MG PO QPM Umeclidinium Healy (Incruse Ellipta), 1 INHA PO DAILY Warfarin Sodium (Warfarin Sodium), 5 MG PO DAILY Scheduled PRN Albuterol Sulf (Proventil 0.083% 2.5MG/3ML), 2.5 MG INH Q4H PRN for SOB/Wheezing Albuterol Sulfate (Proair Respiclick), 2 PUFFS INH QID PRN for Shortness of Breath Review of Systems Constitutional: No fever, No chills, No weight loss Eyes: No problem reported ENT: No nasal symptoms, No sore throat, No trouble swallowing Respiratory: No cough, No shortness of breath, No dyspnea on exertion, No dyspnea at rest Cardiovascular: + edema (denies weight gain, however), No chest pain Abdomen: + constipation, No pain, No nausea, No vomiting, No diarrhea, No GI bleeding Genitourinary - Female: No dysuria, No urinary frequency, No urinary urgency, No urinary incontinence, No hematuria Neurologic: No weakness, No numbness/tingling Psychiatric: No substance abuse Integumentary: No new/changing skin lesions, No problem reported Physical Exam Vital Signs Date Time Temp Pulse Resp B/P (MAP) Pulse Ox O2 Delivery O2 Flow Rate FiO2 08/11/17 16:35 71 22 148/83 93 Nasal Cannula 3.0 08/11/17 14:28 36.8 54 24 174/68 91 Nasal Cannula 3.0 General Appearance: no apparent distress, + obese Head: normocephalic, atraumatic Eyes: normal inspection, PERRL, sclerae normal ENT: + pharyngeal erythema (some swelling posterior pharynx, no exudates) Neck: supple, no adenopathy, trachea midline Respiratory/Chest: lungs clear, normal breath sounds, no respiratory distress, no accessory muscle use Cardiovascular: regular rate, rhythm, no edema, no JVD, no murmur, normal peripheral pulses Abdomen/GI: normal bowel sounds, soft, + tenderness Extremities/Musculoskelatal: normal inspection, no pedal edema Neurologic/Psych: alert, normal mood/affect, + pertinent finding ( appropriately answering questions) Skin: normal color Diagnostics Laboratory Results 08/11/17 14:40 Red Blood Count 3.46, Mean Corpuscular Volume 100.3, Mean Corpuscular Hemoglobin 31.5, Mean Corpuscular Hemoglobin Concent 31.4, Mean Platelet Volume 12.1, Neutrophils (%) (Auto) 54.3, Lymphocytes (%) (Auto) 26.9, Monocytes (%) ( Auto) 13.9, Eosinophils (%) (Auto) 4.0, Basophils (%) (Auto) 0.9, Neutrophils # (Auto) 2.47, Lymphocytes # (Auto) 1.22, Monocytes # (Auto) 0.63, Eosinophils # ( Auto) 0.18, Basophils # (Auto) 0.04 08/11/17 14:40 08/11/17 16:10 Test 08/11/17 14:40 08/11/17 14:49 08/11/17 16:10 08/11/17 20:18 White Blood Count 4.54 K/uL (4.8-10.8) Red Blood Count 3.46 M/uL (4.2-5.4) Hemoglobin 10.9 g/dL (12.0-16.0) Hematocrit 34.7 % (37-47) Mean Corpuscular Volume 100.3 fL (80-100) Mean Corpuscular Hemoglobin 31.5 pg (25-34) Mean Corpuscular Hemoglobin Concent 31.4 g/dl (32-36) Platelet Count 143 K/uL (130-400) Mean Platelet Volume 12.1 fL (7.4-10.4) Neutrophils (%) (Auto) 54.3 % Lymphocytes (%) (Auto) 26.9 % Monocytes (%) (Auto) 13.9 % Eosinophils (%) (Auto) 4.0 % Basophils (%) (Auto) 0.9 % Neutrophils # (Auto) 2.47 K/uL (1.4-6.5) Lymphocytes # (Auto) 1.22 K/uL (1.2-3.4) Monocytes # (Auto) 0.63 K/uL (0.11-0.59) Eosinophils # (Auto) 0.18 K/uL (0-0.5) Basophils # (Auto) 0.04 K/uL (0-0.2) RDW Standard Deviation 55.2 fL (36.4-46.3) RDW Coefficient of Variation 15.2 % (11.5-14.5) Immature Granulocyte % (Auto) 0.0 % Immature Granulocyte # (Auto) 0.00 K/uL (0.00-0.02) Prothrombin Time 61.5 SECONDS (9.0-12.0) Prothromb Time International Ratio 5.4 (0.9-1.1) Activated Partial Thromboplast Time 51.6 SECONDS (21.0-31.0) Partial Thromboplastin Ratio 2.0 Anion Gap 5.0 mmol/L (3-11) Est Creatinine Clear Calc Drug Dose 24.6 ml/min Estimated GFR () 32.0 Estimated GFR (Non- 27.6 BUN/Creatinine Ratio 19.6 (10-20) Calcium Level 9.4 mg/dl (8.5-10.1) Total Bilirubin 0.4 mg/dl (0.2-1) Alanine Aminotransferase (ALT/SGPT) 12 U/L (12-78) Alkaline Phosphatase 47 U/L (45-117) Pro-B-Type Natriuretic Peptide 4591 pg/ml (0-900) Total Protein 6.6 gm/dl (6.4-8.2) Albumin 2.8 gm/dl (3.4-5.0) Lipase 145 U/L (73-393) Thyroid Stimulating Hormone (TSH) 8.570 uIu/ml (0.300-4.500) Bedside Troponin I 0.030 ng/ml (0-0.045) Direct Bilirubin 0.2 mg/dl (0-0.2) Aspartate Amino Transf (AST/SGOT) 17 U/L (15-37) Total Creatine Kinase 149 U/L (26-192) Creatine Kinase MB 1.6 ng/ml (0.5-3.6) Creatine Kinase MB Ratio 1.1 (0-3.0) Troponin I 0.054 ng/ml (0-0.045) Results Past 24 Hours Test 08/11/17 14:40 08/11/17 14:49 08/11/17 16:10 Range/Units White Blood Count 4.54 4.8-10.8 K/uL Red Blood Count 3.46 4.2-5.4 M/uL Hemoglobin 10.9 12.0-16.0 g/dL Hematocrit 34.7 37-47 % Mean Corpuscular Volume 100.3 80-100 fL Mean Corpuscular Hemoglobin 31.5 25-34 pg Mean Corpuscular Hemoglobin Concent 31.4 32-36 g/dl Platelet Count 143 130-400 K/uL Mean Platelet Volume 12.1 7.4-10.4 fL Neutrophils (%) (Auto) 54.3 % Lymphocytes (%) (Auto) 26.9 % Monocytes (%) (Auto) 13.9 % Eosinophils (%) (Auto) 4.0 % Basophils (%) (Auto) 0.9 % Neutrophils # (Auto) 2.47 1.4-6.5 K/uL Lymphocytes # (Auto) 1.22 1.2-3.4 K/uL Monocytes # (Auto) 0.63 0.11-0.59 K/uL Eosinophils # (Auto) 0.18 0-0.5 K/uL Basophils # (Auto) 0.04 0-0.2 K/uL RDW Standard Deviation 55.2 36.4-46.3 fL RDW Coefficient of Variation 15.2 11.5-14.5 % Immature Granulocyte % (Auto) 0.0 % Immature Granulocyte # (Auto) 0.00 0.00-0.02 K/uL Prothrombin Time 61.5 9.0-12.0 SECONDS Prothromb Time International Ratio 5.4 0.9-1.1 Activated Partial Thromboplast Time 51.6 21.0-31.0 SECONDS Partial Thromboplastin Ratio 2.0 Sodium Level 143 136-145 mmol/L Potassium Level 3.7 3.5-5.1 mmol/L Chloride Level 105 98-107 mmol/L Carbon Dioxide Level 33 21-32 mmol/L Anion Gap 5.0 3-11 mmol/L Blood Urea Nitrogen 35 7-18 mg/dl Creatinine 1.80 0.60-1.20 mg/dl Est Creatinine Clear Calc Drug Dose 24.6 ml/min Estimated GFR () 32.0 Estimated GFR (Non- 27.6 BUN/Creatinine Ratio 19.6 10-20 Random Glucose 87 70-99 mg/dl Calcium Level 9.4 8.5-10.1 mg/dl Total Bilirubin 0.4 0.2-1 mg/dl Direct Bilirubin 0.2 0-0.2 mg/dl Aspartate Amino Transf (AST/SGOT) 17 15-37 U/L Alanine Aminotransferase (ALT/SGPT) 12 12-78 U/L Alkaline Phosphatase 47 45-117 U/L Total Creatine Kinase 57 26-192 U/L Creatine Kinase MB 1.6 0.5-3.6 ng/ml Creatine Kinase MB Ratio 0-3.0 Pro-B-Type Natriuretic Peptide 4591 0-900 pg/ml Total Protein 6.6 6.4-8.2 gm/dl Albumin 2.8 3.4-5.0 gm/dl Lipase 145 73-393 U/L Thyroid Stimulating Hormone (TSH) 8.570 0.300-4.500 uIu/ml Bedside Troponin I 0.030 0-0.045 ng/ml Diagnostic Radiology CHEST ONE VIEW PORTABLE CLINICAL HISTORY: 71 years-old Female presenting with CHEST PAIN. TECHNIQUE: Portable upright AP view of the chest was obtained. COMPARISON: 06/08/2017. FINDINGS: Atherosclerosis of aortic arch. Enlargement of the main pulmonary artery, unchanged. Cardiac silhouette also remains enlarged. Surgical material projecting over the right hilum likely consisting of epicardial pacing lead and surgical clips, unchanged. Persistent linear opacities lung bases. No new focal infiltrate. No large effusion or pneumothorax. Osseous structures normal. Upper abdomen normal. IMPRESSION: 1. No new focal infiltrate. 2. Chronic findings of pulmonary arterial enlargement likely suggesting pulmonary artery hypertension. 3. Cardiomegaly. 4. Persistent bilateral scarring or atelectasis. EKG SB44, Bifascicular block No change from prior EKG Impression Assessment and Plan 71 yo F presents with acute bilateral leg swelling 1. Acute diastolic heart failure exacerbation-LE swelling per patient report along with 6-7 pound weight gain in the last 2 weeks based on visit weight trend with baseline weight around 155 lbs and admission weight around 161. Otherwise, she appears asymptomatic but it is difficult to obtain a history with everything going on. Last TTE was performed on 06/09/17 revealing EF 55-60 %, LVH, severely reduced RV systolic function as well as evidence of pulmonary HTN. Bumex IV was given in ER, will cont this daily (Watson in place) and consult Cardiology for assistance with management. Trend serial enzymes overnight. Defer repeat TTE to Cardiology. 2. CKD IV-Nephro following as outpatient. She is at baseline. Cont to minimize contrast and other nephrotoxic substances. Renally dose meds as appropriate. Calcitriol 4. Atrial fibrillation-currently in sinus rhythm, cont warfarin and metoprolol 5, Dementia-cont Aricept 6. HTN-labile but controlled. Cont home medications. 7. Anemia, multifactorial 2/2 iron def 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 At baseline. Nephro following as outpatient. 8. Hypothyroidism-cont current dose of synthroid. 9. Constipation with generalized abdominal tenderness on exam. Cont docusate or more if needed. DVT proph-warfarin Full Code Dispo-telemetry [facility] Bor[facility] Care Telemetry Resuscitation Status FULL RESUSCITATION VTE Prophylaxis VTE Risk Assessment Done? Y/N: Yes Risk Level: Moderate Given or contraindicated: Warfarin (Coumadin)
[2017-08-11 17:30] VITALS: O2SAT 92; Ht 149.9 cm; Wt 74.9 kg
[2017-08-11 18:10] VITALS: BP 161/74; PULSE 49; TEMP 36.9; O2SAT 91
[2017-08-11] MEDS ORDERED: PNEUMOCOCCAL POLYSACCHARIDES 25 MCG/0.5 ML VIAL/SYR IM. ONE (19:00)
[2017-08-11] MEDS ORDERED: PNEUMOCOCCAL ADMINISTRATION CHARGE ONE (19:00)
[2017-08-11] MEDS ORDERED: FLUT0.15 NAE (19:21)
[2017-08-11] MEDS ORDERED: NTRGSL/4 SL (19:21)
[2017-08-11 20:01] VITALS: O2SAT 96
[2017-08-11 20:51] LABS: CKMB/CK RATIO 1.1 (0-3.0)
[2017-08-11] MEDS ORDERED: ALBUTEROL HFA 8 GM INHALER INH PRN (21:30)
[2017-08-11] MEDS: FLUTICASONE/SALMETEROL 250/50 (ADVAIR) 14 PUFF/1 INHALER INH SCH (21:43)
[2017-08-11] MEDS: DOCUSATE SODIUM 100 MG CAP PO SCH (21:43)
[2017-08-11] MEDS: FLUTICASONE PROPIONATE NA SPR 16 GM BTL NAE SCH (21:43)
[2017-08-11] MEDS: BRINZOLAMIDE (AZOPT) OPS 10 ML BTL OPB SCH (21:43)
[2017-08-11] MEDS: DONEPEZIL HCL 10 MG TAB PO SCH (21:43)
[2017-08-11] MEDS: PRAVASTATIN SOD 40 MG TAB PO SCH (21:44)
[2017-08-11] MEDS: HydrALAZINE 10 MG TAB PO SCH (21:44)
[2017-08-11] MEDS: GABAPENTIN 300 MG CAP PO SCH (21:44)
[2017-08-11] MEDS: ACETAMINOPHEN 325 MG TAB PO PRN (23:16)
[2017-08-11] MEDS: INCRUSE ELLIPTA~ORDER AWAITING ACTION SCH (23:16)
[2017-08-12] VITALS (8 sets, daily range): BP systolic 100–162; BP diastolic 52–97; PULSE 51–70; TEMP 36.6–37.2; O2SAT 90–93
[2017-08-12 03:18] LABS: CKMB/CK RATIO 2.4 (0-3.0)
[2017-08-12] MEDS: LEVOTHYROXINE 75 MCG TAB PO SCH (05:54)
[2017-08-12 06:30] LABS: BUN/CREATININE RATIO 18.4 (10-20); CALCIUM 9.1 mg/dl (8.5-10.1); CREATININE 2.2 mg/dl (0.60-1.20); POTASSIUM 3.8 mmol/L (3.5-5.1)
[2017-08-12 06:34] LABS: CHOLESTEROL/HDL RATIO 1.6
[2017-08-12] MEDS: INCRUSE ELLIPTA~ORDER AWAITING ACTION SCH ×2 (08:00→16:00)
--- NOTE | 2017-08-12 08:01 | Clinical Documentation Query ---
[facility]Not my patient CLINICAL DOCUMENTATION QUERIES QUERY 1 OF 2 Patient is a 71 year old female admitted for acute CHF exacerbation. H&P notes a history of 3 L/min continuous supplemental oxygen utilization via nasal cannula. In your clinical opinion is this patient being managed for: ( ) Chronic respiratory failure with hypoxia ( ) Not Agree ( ) Other explanation of clinical findings (Please Explain) ( ) Unable to determine (Please Define) ( ) Need to Discuss The medical record reflects the following clinical findings, treatment, and risk factors. Clinical Indicators: As above Treatment: Ongoing provision of supplemental oxygen Risk Factors: Age, smoking/COPD, anemia QUERY 2 OF 2 A possible discrepancy exists within the medical record. H&P documentation includes " Acute diastolic heart failure exacerbation". However, EF that was noted was that of the left ventricle. Most recent echocardiogram demonstrated severely reduced RV systolic function and evidence of pulmonary hypertension. She was treated with IV Bumex, admitted to telemetry for serial enzymes and cardiology consultation. Please clarify as clinically appropriate. In your clinical opinion is this patient being managed for: ( ) Acute cor pulmonale/RV systolic CHF on chronic systolic RV failure ( ) Not Agree ( ) Other explanation of clinical findings (Please Explain) ( ) Unable to determine (Please Define) ( ) Need to Discuss The medical record reflects the following clinical findings, treatment, and risk factors. Clinical Indicators: As above Treatment: Bumex, telemetry, cardiology consultation Risk Factors: COPD, pulmonary hypertension Please clarify and document your clinical opinion in the progress notes and discharge summary. Terms such as "probable", "suspected", "likely", "questionable", "possible", or "still to be ruled out" are acceptable. IF IN AGREEMENT, YOU MUST DOCUMENT ABOVE DIAGNOSTIC STATEMENT IN DAILY PROGRESS NOTES AND DISCHARGE SUMMARY. This document is not part of the patient's record. Thank You, Bright Mendes, RN [phone]
[2017-08-12 08:02] LABS: PROTHROMBIN TIME (PATIENT) 43.2 SECONDS (9.0-12.0)
[2017-08-12 08:07] LABS: INR 3.8 (0.9-1.1)
[2017-08-12] MEDS: METOPROLOL SUCC 25MG EXT REL TAB PO SCH (08:26)
[2017-08-12] MEDS: CALCITRIOL 0.25 MCG CAP PO SCH (08:28)
[2017-08-12] MEDS: FERROUS SULFATE 325 MG TAB PO SCH ×2 (08:28→17:38)
[2017-08-12] MEDS: FLUTICASONE/SALMETEROL 250/50 (ADVAIR) 14 PUFF/1 INHALER INH SCH ×2 (08:28→19:19)
[2017-08-12] MEDS: HydrALAZINE 10 MG TAB PO SCH ×2 (08:29→19:20)
[2017-08-12] MEDS: PANTOprazole SOD 40 MG TAB PO SCH (08:29)
[2017-08-12] MEDS: OXYBUTYNIN CHLORIDE 5 MG TABCR PO SCH (08:29)
[2017-08-12] MEDS: DOCUSATE SODIUM 100 MG CAP PO SCH ×2 (08:30→19:20)
[2017-08-12] MEDS: GABAPENTIN 300 MG CAP PO SCH ×3 (08:30→19:20)
[2017-08-12] MEDS: LORATADINE 10 MG TAB PO SCH (08:30)
[2017-08-12 08:31] LABS: HEMATOCRIT 31.3 % (37-47); MEAN CELL VOLUME 100.6 fL (80-100); MEAN CORPUSCULAR HEMOGLOBIN 32.2 pg (25-34); MEAN CORPUSCULAR HGB CONC 31.9 g/dl (32-36); MEAN PLATELET VOLUME 12.5 fL (7.4-10.4); PLATELET COUNT 129 K/uL (130-400); RED BLOOD COUNT 3.11 M/uL (4.2-5.4); WHITE BLOOD COUNT 4.78 K/uL (4.8-10.8)
[2017-08-12] MEDS: BRINZOLAMIDE (AZOPT) OPS 10 ML BTL OPB SCH ×2 (08:31→19:19)
[2017-08-12] MEDS: FLUTICASONE PROPIONATE NA SPR 16 GM BTL NAE SCH ×2 (08:31→19:19)
[2017-08-12] MEDS ORDERED: ALBUTEROL 0.083% NEBU SOLN 3 ML VIAL INH PRN (09:00)
[2017-08-12] MEDS ORDERED: BUMETANIDE IV 1 MG in SYRINGE 0 ML IV SCH (09:00)
--- NOTE | 2017-08-12 09:20 | ECHOCARDIOGRAM REPORT ---
*NOTICE TO RECEIVING CONSTITUTION PARTY AGENCY This information is strictly Confidential and protected under [place] law. [place] law prohibits you from making any further disclosure of this information unless further disclosure is expressly permitted by the written consent of the person to whom it pertains or is authorized by law. A general authorization for the release of medical or other information is not sufficient for this purpose. Hospital accepts no responsibility if the information is made available to any other person, INCLUDING THE PATIENT. Interpretation Summary * Name: CRISTEL PERLA Study Date: 08/12/2017 06:34 AM BP: 132/52 mmHg * Patient Location: [facility]\S\[id number]\1 HR: 49 * : 1945 (M/d/yyyy) Gender: Female Height: 59 in * Age: 71 yrs Ethnicity: [place] Weight: 160 lb * Ordering Physician: Mehreen Borja * Referring Physician: Self, Referred * Performed By: Cheo Fortune RCS * * Reason For Study: CHF * BSA: 1.7 m2 * The study was technically adequate. * Compared to prior study, there is no significant change. * -- Conclusions -- * Ejection Fraction = 60-65%. * The right ventricle is severely dilated. * The right ventricular systolic function is severely reduced. * There is moderate to severe tricuspid regurgitation. * The estimated systolic PAP is 56mmHg. * Flattened septum is consistent with RV pressure/volume overload. * Trivial loculated posterior pericardial effusion. Procedure Details * A complete two-dimensional transthoracic echocardiogram was performed (2D, M-mode, Doppler and color flow Doppler). Left Ventricle * The left ventricular cavity is small. * There is mild concentric left ventricular hypertrophy. * Ejection Fraction = 60-65%. * Left ventricular systolic function is normal. * Flattened septum is consistent with RV pressure/volume overload. Right Ventricle * The right ventricle is severely dilated. * The right ventricular systolic function is severely reduced. Atria * The left atrial size is normal. * The right atrium is severely dilated. * There is no evidence of atrial septal defect, but resolution does not allow assessment for a patent foramen ovale. Mitral Valve * The mitral valve is normal. * There is no mitral valve stenosis. * Significant mitral regurgitation is absent. Tricuspid Valve * The tricuspid valve is normal. * There is no tricuspid stenosis. * There is moderate to severe tricuspid regurgitation. * The estimated systolic PAP is 56mmHg. Aortic Valve * The aortic valve is normal in structure and function. * Aortic stenosis is absent. * There is no significant aortic regurgitation. Pulmonic Valve * The pulmonary valve is not well seen, but the Doppler examination is normal without significant regurgitation or stenosis. Great Vessels * The aortic root and proximal ascending aorta are normal sized. Pericardium/Pleural * Trivial loculated posterior pericardial effusion. * There are no echocardiographic indications of cardiac tamponade. Great Vessels * Normal inferior vena cava diameter and respiratory variation suggests normal central venous pressure. MMode 2D Measurements and Calculations IVSd 1.1 cm LVIDd 3.6 cm LVIDs 2.2 cm LVPWd 1.1 cm IVS/LVPW 0.99 FS 40.1 % EDV(Teich) 56.1 ml ESV(Teich) 15.9 ml EF(Teich) 71.7 % EDV(cubed) 48.5 ml ESV(cubed) 10.4 ml EF(cubed) 78.6 % LV mass(C)d 125.1 grams LV mass(C)dI 74.6 grams/m\S\2 SV(Teich) 40.3 ml SI(Teich) 24.0 ml/m\S\2 SV(cubed) 38.1 ml SI(cubed) 22.7 ml/m\S\2 Ao root diam 2.1 cm Ao root area 3.4 cm\S\2 LVOT diam 1.9 cm LVOT area 2.9 cm\S\2 LVAd ap4 28.0 cm\S\2 LVLd ap4 7.8 cm EDV(MOD-sp4) 82.8 ml EDV(sp4-el) 85.5 ml LVAs ap4 16.2 cm\S\2 LVLs ap4 6.5 cm ESV(MOD-sp4) 34.1 ml ESV(sp4-el) 34.2 ml EF(MOD-sp4) 58.8 % EF(sp4-el) 59.9 % LVAd ap2 23.3 cm\S\2 LVLd ap2 7.8 cm EDV(MOD-sp2) 58.9 ml EDV(sp2-el) 59.3 ml LVAs ap2 9.0 cm\S\2 LVLs ap2 5.3 cm ESV(MOD-sp2) 12.6 ml ESV(sp2-el) 12.8 ml EF(MOD-sp2) 78.5 % EF(sp2-el) 78.4 % LVLd %diff 0.02 % EDV(MOD-bp) 70.4 ml LVLs %diff -22.51 % ESV(MOD-bp) 23.0 ml EF(MOD-bp) 67.3 % SV(MOD-sp4) 48.7 ml SI(MOD-sp4) 29.0 ml/m\S\2 SV(MOD-sp2) 46.3 ml SI(MOD-sp2) 27.6 ml/m\S\2 SV(MOD-bp) 47.4 ml SI(MOD-bp) 28.3 ml/m\S\2 SV(sp4-el) 51.3 ml SI(sp4-el) 30.6 ml/m\S\2 SV(sp2-el) 46.5 ml SI(sp2-el) 27.7 ml/m\S\2 Doppler Measurements and Calculations MV E max julio 108.4 cm/sec MV A max julio 82.0 cm/sec MV E/A 1.3 MV dec time 0.20 sec Ao V2 max 166.9 cm/sec Ao max PG 11.1 mmHg Ao max PG (full) 7.1 mmHg Ao V2 mean 108.9 cm/sec Ao mean PG 5.6 mmHg Ao mean PG (full) 3.8 mmHg Ao V2 VTI 35.9 cm JOCY(I,A) 2.0 cm\S\2 JOCY(I,D) 2.0 cm\S\2 JOCY(V,A) 1.7 cm\S\2 JOCY(V,D) 1.7 cm\S\2 LV V1 max PG 4.1 mmHg LV V1 mean PG 1.7 mmHg LV V1 max 100.8 cm/sec LV V1 mean 59.5 cm/sec LV V1 VTI 25.0 cm SV(Ao) 123.6 ml SI(Ao) 73.7 ml/m\S\2 SV(LVOT) 72.1 ml SI(LVOT) 43.0 ml/m\S\2 PI end-d julio 113.0 cm/sec TR max julio 348.8 cm/sec
--- NOTE | 2017-08-12 10:28 | CARDIOLOGY CONSULTATION ---
DATE OF CONSULTATION: 08/12/2017 REFERRING PHYSICIAN: Dr. Mehreen Borja. REASON FOR CONSULTATION: Right-sided heart failure, lower extremity edema. CHIEF COMPLAINT ON ADMISSION: Lower extremity edema. HISTORY OF PRESENT ILLNESS: Mr. Humphries is a 71-year-old female who was admitted in May with syncope versus seizure. She presented to the Emergency Department yesterday with worsening lower extremity edema as reported by her fiance. There is no family present at bedside. The patient notes her legs are somewhat more swollen; however, she is an extremely poor historian. Her weight is up approximately 5 pounds. She was given a dose of intravenous Bumex both in the ER as well as this morning. Her creatinine has increased to 2.20 overnight. She denies orthopnea, PND, or lower extremity edema. Urine output negative approximately 1 liter. She denies any chest pain, palpitations, lightheadedness, dizziness. No recurrent syncope or seizure like activity. A 14-day ZIO monitor was performed as an outpatient, demonstrating an average heart rate of 54 beats per minute with a minimum heart rate of 41 beats per minute. Four supraventricular tachycardia runs were recorded. There was also a run of nonsustained ventricular tachycardia. Currently, the patient is resting comfortably. She denies any discomfort aside from left elbow pain which is due to mild trauma. There is a chart record of noncompliance. ER notes state that the daughter reported noncompliance with diuretic therapy. There is also concern regarding need for placement, although physical therapy has not evaluated the patient. REVIEW OF SYSTEMS: The pertinent positive noted above, a comprehensive 10-system review is otherwise negative. PAST MEDICAL HISTORY: 1. Paroxysmal atrial fibrillation. 2. Chronic anemia. 3. Chronic kidney disease stage IV. 4. Bradycardia. 5. Nonsustained ventricular tachycardia. 6. COPD. 7. Nephrectomy. 8. Paroxysmal atrial flutter status post ablation July 2015 and 02/07/2016. 9. Chronic anticoagulation with Coumadin. 10. Tachybrady syndrome with pacemaker implantation in 2009, status post explantation due to bacteremia and possible vegetation. 11. Recurrent hyperkalemia. 12. Chronic right-sided heart failure. 13. Severe pulmonary hypertension on chronic oxygen therapy. 14. COPD. 15. Sleep apnea. 16. ASD with repair later in life. 17. Diastolic heart failure. 18. Dyslipidemia. 19. 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 20. JOSIAS. 21. Hypothyroidism. 21. Diabetes type 2. 22. Mild nonobstructive CAD by cardiac catheterization in 2007. 23. History of TIA. 24. Bleeding ulcers. PAST SURGICAL HISTORY: 1. Cardiac catheterization. 2. Thyroidectomy. 3. Appendectomy. 4. Pacemaker implantation in 2009. 5. Pacemaker explanted 2010. 6. ASD repair 2007. 7. Colonoscopy. SOCIAL HISTORY: Former tobacco abuse, quit in 2004. There is a [id number] history. Currently, lives with her family. FAMILY HISTORY: Negative for premature CAD or sudden cardiac ; however, noncontributory given patient's age. ALLERGIES: LEVAQUIN, QUINOLONES, RANITIDINE, SULFAMETHOXAZOLE, TRIMETHOPRIM, CLARITHROMYCIN, AMOXICILLIN, OMEPRAZOLE. CURRENT OUTPATIENT MEDICATIONS: 1. Bumex 1 mg daily with 2 mg on Saturday, and Saturday. 2. Ditropan 5 mg daily. 3. Singulair 10 mg at bedtime. 4. Ellipta inhaler daily. 5. Toprol-XL 12.5 mg daily. 6. Gabapentin 300 mg in the a.m., 600 mg in midday and evening. 7. Hydralazine 10 mg twice daily. 8. Ferrous sulfate 325 mg twice daily. 9. Aricept 10 mg daily. 10. Claritin 10 mg daily. 11. Flonase spray each nostril 2 times a day. 12. Calcitriol 0.25 mcg daily. 13. Levoxyl 75 mcg daily. 14. Pravastatin 80 mg daily. 15. Advair Diskus 250/50 mg twice daily. 16. Coumadin 5 mg tablet, 1/2-1 tablet daily as directed by the anticoagulation clinic. 17. Protonix daily. 18. Albuterol inhaler as needed. 19. Azopt ophthalmic twice daily. 20. Senna daily. 21. Humibid LA 600 mg twice daily. 22. Oxygen 3 liters continuous. 23. Nitrostat as needed. ECG ON ADMISSION: Sinus bradycardia, right bundle branch block, left anterior fascicular block. Telemetry monitoring demonstrates sinus rhythm, sinus bradycardia, occasional premature ventricular complexes. LABORATORY DATA: White blood cell count 12.78, hemoglobin 10.0, platelet count 129. Sodium 141, potassium 3.8, chloride 103, CO2 is 35, BUN is 40, creatinine is 2.20. Troponin 0.054. ProBNP 4591. INR is 3.8. PHYSICAL EXAMINATION: VITAL SIGNS: Temperature is 36.6 degrees centigrade, pulse is 52 beats per minute and regular, respiratory rate 20 breaths per minute, blood pressure 142/59 SAO2 is 90% on 5 liters nasal cannula. GENERAL: NAD, chronically ill, hard of hearing. HEENT: Mucous membranes moist. No scleral icterus. Conjunctivae pink. NECK: Supple without JVD or HJR. No carotid bruit. HEART: Regular with a normal S1 and S2. There is a 1/6 mid systolic murmur heard best at left sternal border. LUNGS: Demonstrate scant crackles at the bases. No wheezes or rhonchi. ABDOMEN: Soft, nontender. No rebound or guarding. Normal bowel sounds. EXTREMITIES: Warm. There is a faint erythema bilaterally, mild, 1+ pretibial edema. NEUROLOGIC: Demonstrates no focal motor deficit. FINAL IMPRESSION: 1. A 71-year-old female admitted with weight gain, progressive lower extremity edema due to possible noncompliance with diuretic therapy. She received 2 doses of intravenous Bumex with mild to moderate diuresis with urine output, approximately 1 liter overnight. Currently, the patient does not appear overly volume overloaded. 2. Chronic right-sided heart failure with cor pulmonale on chronic oxygen therapy. 3. Tachybrady syndrome with history of paroxysmal atrial fibrillation, currently sinus bradycardia. 4. Evidence of nonsustained ventricular tachycardia per recent 14-day ZIO monitor. 5. Preserved left ventricular systolic function. 6. History of mild nonobstructive coronary artery disease. 7. Supratherapeutic INR. 8. Acute renal insufficiency superimposed on chronic kidney disease related to diuretic therapy. 9. Chronic anemia. 10. Severe underlying oxygen dependent chronic obstructive pulmonary disease with former tobacco abuse. PLAN AND RECOMMENDATIONS: As noted above, the patient does not appear overly volume overload. I am placing intravenous diuretics on hold due to elevation in BUN and creatinine noted overnight. A repeat renal panel will be performed in the a.m. We will resume oral diuretic therapy when renal function has returned to baseline. I reviewed her resting 2D transthoracic echo which demonstrates no significant changes compared to 1 month ago. Her IVC collapses suggesting normal right atrial pressure as well. There is a question of noncompliance, which I discussed with the patient. There is also the potential need for placement; however, patient has not been evaluated by physical therapy. That will be ordered today and case management is involved. Warfarin will remain on hold and other cardiovascular medications will be continued as previously ordered. I will continue to follow during hospitalization. Thank you for allowing me to take part in the care of your patient.
--- NOTE | 2017-08-12 10:31 | Progress Note ---
Internal Med Progress Note Date of Service: Aug 12, 2017. Provider Documentation: SUBJECTIVE: resting comfortably says she is here because of lower extremity edema denies sob or chest pain afebrile no cough slept fine last night OBJECTIVE: Vital Signs-as noted below Exam: General-alert and oriented. Not in distress ENT-normal hearing. Neck-no neck masses Lungs-cta b/l no wheezing no crackles present Heart-s1 and s2 heard regular rhythm, no murmurs Abdomen-soft bowel sounds present non tender no distension Extremities lower extremity edema present, mild erythema lower extremities Neuro-alert and oriented moves extremities Lab data as noted below. ASSESSMENT & PLAN: 71 yo F presents with acute bilateral leg swelling. 1. Acute diastolic heart failure exacerbation with preserved EF Acute right sided heart failure Hx of pulmonary hypertension weight gain lower extremity edema currently on iv Bumex 1mg daily daily weights i/o's await cardiology inputs 2.YAZMIN on CKD IV- baseline cr 1.8 cr today 2.2 from diuretics? will f/u labs. Cellulitis? lower extremities mildly erythematous will place on Rocephin and monitor Atrial fibrillation-currently in sinus rhythm, cont warfarin and metoprolol inr 3.8 will hold Coumadin. Dementia-cont Aricept HTN-labile but controlled. On Toprol xl and hydralazine. Will monitor. 7. Anemia, multifactorial 2/2 iron def 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 At baseline. Nephro following as outpatient. 8. Hypothyroidism-tsh mildly elevated. will thyroid profile in am. on Synthroid 9. Constipation with generalized abdominal tenderness on exam. Will Cont docusate or more if needed. DVT proph- inr 3.8. Full Code Dispo-Monitor in telemetry pt/ot prior to discharge social service for d/c planning Vital Signs: Date Time Temp Pulse Resp B/P (MAP) Pulse Ox O2 Delivery O2 Flow Rate FiO2 08/12/17 16:00 Nasal Cannula 6.0 Oxymask 08/12/17 15:57 36.9 70 18 162/63 (96) 92 Nasal Cannula 5.0 08/12/17 12:00 37.0 55 20 130/97 (108) 92 Nasal Cannula 5.0 08/12/17 12:00 Nasal Cannula 5.0 08/12/17 08:00 91 Nasal Cannula 5.0 08/12/17 08:00 36.6 52 20 142/59 (86) 90 Nasal Cannula 5.0 08/12/17 04:00 Oxymask 5.0 08/12/17 03:47 36.9 51 18 132/52 (78) 93 Nasal Cannula 5.0 08/12/17 00:00 36.9 57 20 124/55 (78) 91 Oxymask 4.0 08/11/17 23:22 Oxymask 4.0 08/11/17 20:01 96 Oxymask 4.0 Lab Results: Results Past 24 Hours Test 08/11/17 20:18 08/12/17 02:21 08/12/17 05:35 08/12/17 07:33 Range/Units Total Creatine Kinase 149 42 26-192 U/L Creatine Kinase MB 1.6 1.0 0.5-3.6 ng/ml Creatine Kinase MB Ratio 1.1 2.4 0-3.0 Troponin I 0.054 0.058 0-0.045 ng/ml Sodium Level 141 136-145 mmol/L Potassium Level 3.8 3.5-5.1 mmol/L Chloride Level 103 98-107 mmol/L Carbon Dioxide Level 35 21-32 mmol/L Anion Gap 3.0 3-11 mmol/L Blood Urea Nitrogen 40 7-18 mg/dl Creatinine 2.20 0.60-1.20 mg/dl Est Creatinine Clear Calc Drug Dose 20.1 ml/min Estimated GFR () 25.1 Estimated GFR (Non- 21.7 BUN/Creatinine Ratio 18.4 10-20 Random Glucose 89 70-99 mg/dl Calcium Level 9.1 8.5-10.1 mg/dl Triglycerides Level 73 0-150 mg/dl Cholesterol Level 89 0-200 mg/dl HDL Cholesterol 54 mg/dl LDL Cholesterol, Calculated 20 mg/dl VLDL Cholesterol, Calculated 15 mg/dl Cholesterol/HDL Ratio 1.6 White Blood Count 4.78 4.8-10.8 K/uL Red Blood Count 3.11 4.2-5.4 M/uL Hemoglobin 10.0 12.0-16.0 g/dL Hematocrit 31.3 37-47 % Mean Corpuscular Volume 100.6 80-100 fL Mean Corpuscular Hemoglobin 32.2 25-34 pg Mean Corpuscular Hemoglobin Concent 31.9 32-36 g/dl RDW Standard Deviation 55.4 36.4-46.3 fL RDW Coefficient of Variation 15.2 11.5-14.5 % Platelet Count 129 130-400 K/uL Mean Platelet Volume 12.5 7.4-10.4 fL Prothrombin Time 43.2 9.0-12.0 SECONDS Prothromb Time International Ratio 3.8 0.9-1.1
[2017-08-12] MEDS: CEFTRIAXONE SOD INJ 1 GM in DEXTROSE 5% ADD-VANTAGE 50ML 50 ML IV SCH (11:53)
[2017-08-12] MEDS ORDERED: WARFARIN SOD 5 MG TAB PO SCH (16:00)
[2017-08-12] MEDS: DONEPEZIL HCL 10 MG TAB PO SCH (19:20)
[2017-08-12] MEDS: PRAVASTATIN SOD 40 MG TAB PO SCH (19:21)
[2017-08-13] VITALS (7 sets, daily range): BP systolic 122–151; BP diastolic 58–66; PULSE 53–72; TEMP 36.9–37.2; O2SAT 91–96
[2017-08-13] MEDS: ACETAMINOPHEN 325 MG TAB PO PRN (02:47)
[2017-08-13] MEDS: LEVOTHYROXINE 75 MCG TAB PO SCH (06:03)
[2017-08-13 06:06] LABS: BASO % 0.5 %; BASO ABS # 0.03 K/uL (0-0.2); COMPLETE YES; EOS % 2.7 %; HEMATOCRIT 33.4 % (37-47); IG% 0.2 %; LYMPH % 16.8 %; LYMPH ABS # 0.95 K/uL (1.2-3.4); MEAN CELL VOLUME 101.8 fL (80-100); MEAN CORPUSCULAR HEMOGLOBIN 31.4 pg (25-34); MEAN CORPUSCULAR HGB CONC 30.8 g/dl (32-36); MEAN PLATELET VOLUME 12.4 fL (7.4-10.4); MONO % 14.3 %; NEUT % 65.5 %; PLATELET COUNT 136 K/uL (130-400); RED BLOOD COUNT 3.28 M/uL (4.2-5.4); WHITE BLOOD COUNT 5.65 K/uL (4.8-10.8)
[2017-08-13 06:29] LABS: INR 2.4 (0.9-1.1); PROTHROMBIN TIME (PATIENT) 26.2 SECONDS (9.0-12.0)
[2017-08-13 06:54] LABS: BUN/CREATININE RATIO 23.8 (10-20); CALCIUM 9.5 mg/dl (8.5-10.1); CREATININE 1.9 mg/dl (0.60-1.20); MAGNESIUM 1.9 mg/dl (1.8-2.4); POTASSIUM 3.8 mmol/L (3.5-5.1)
[2017-08-13 07:04] LABS: THYROID STIMULATING HORMONE 4.83 uIu/ml (0.300-4.500)
[2017-08-13] MEDS: INCRUSE ELLIPTA~ORDER AWAITING ACTION SCH ×3 (08:00→16:00)
[2017-08-13] MEDS: OXYBUTYNIN CHLORIDE 5 MG TABCR PO SCH (08:28)
[2017-08-13] MEDS: HydrALAZINE 10 MG TAB PO SCH ×2 (08:28→20:40)
[2017-08-13] MEDS: DOCUSATE SODIUM 100 MG CAP PO SCH ×2 (08:28→20:40)
[2017-08-13] MEDS: PANTOprazole SOD 40 MG TAB PO SCH (08:28)
[2017-08-13] MEDS: LORATADINE 10 MG TAB PO SCH (08:28)
[2017-08-13] MEDS: METOPROLOL SUCC 25MG EXT REL TAB PO SCH (08:28)
[2017-08-13] MEDS: BRINZOLAMIDE (AZOPT) OPS 10 ML BTL OPB SCH ×2 (08:29→20:42)
[2017-08-13] MEDS: GABAPENTIN 300 MG CAP PO SCH ×3 (08:29→20:40)
[2017-08-13] MEDS: FLUTICASONE PROPIONATE NA SPR 16 GM BTL NAE SCH ×2 (08:29→20:39)
[2017-08-13] MEDS: FERROUS SULFATE 325 MG TAB PO SCH ×2 (08:29→16:52)
[2017-08-13] MEDS: FLUTICASONE/SALMETEROL 250/50 (ADVAIR) 14 PUFF/1 INHALER INH SCH ×2 (08:29→20:39)
[2017-08-13] MEDS: CALCITRIOL 0.25 MCG CAP PO SCH (08:30)
--- NOTE | 2017-08-13 09:22 | Progress Note ---
Medicine Progress Note Date & Time of Visit: Aug 13, 2017 at 09:15. Subjective patient seen resting in bed, comfortable states her breathing is improving, denies chest pain, palpitations, dizziness denies leg pain reports right elbow and wrist pain, had a fall prior to coming to hospital no other symptoms Objective Last 8 Hrs Date Time Temp Pulse Resp B/P (MAP) Pulse Ox O2 Delivery O2 Flow Rate FiO2 08/13/17 08:00 Oxymask 6.0 08/13/17 06:56 37.0 53 16 122/58 (79) 92 Oxymask 5.0 08/13/17 04:00 Oxymask 6.0 08/13/17 02:48 37.2 67 20 138/59 (85) 95 Nasal Cannula 6.0 Physical Exam: General- oriented x 3, not in distress, speaks in sentences , no acc muscle use Eyes- EOMI, anicteric Neck- supple, mild JVD Lungs- mild rales bilateral bases Heart- regular rhythm; no murmur Abdomen- normal bowel sounds, soft, nontender, Extremities- grade 1 lower leg edema, mild erythema and warmth bilaterally Neuro- alert, oriented x 3;no gross focal deficits Skin- warm & dry Laboratory Results: Last 24 Hours Test 08/13/17 05:29 White Blood Count 5.65 K/uL Red Blood Count 3.28 M/uL Hemoglobin 10.3 g/dL Hematocrit 33.4 % Mean Corpuscular Volume 101.8 fL Mean Corpuscular Hemoglobin 31.4 pg Mean Corpuscular Hemoglobin Concent 30.8 g/dl Platelet Count 136 K/uL Mean Platelet Volume 12.4 fL Neutrophils (%) (Auto) 65.5 % Lymphocytes (%) (Auto) 16.8 % Monocytes (%) (Auto) 14.3 % Eosinophils (%) (Auto) 2.7 % Basophils (%) (Auto) 0.5 % Neutrophils # (Auto) 3.70 K/uL Lymphocytes # (Auto) 0.95 K/uL Monocytes # (Auto) 0.81 K/uL Eosinophils # (Auto) 0.15 K/uL Basophils # (Auto) 0.03 K/uL RDW Standard Deviation 55.7 fL RDW Coefficient of Variation 15.1 % Immature Granulocyte % (Auto) 0.2 % Immature Granulocyte # (Auto) 0.01 K/uL Prothrombin Time 26.2 SECONDS Prothromb Time International Ratio 2.4 Sodium Level 144 mmol/L Potassium Level 3.8 mmol/L Chloride Level 103 mmol/L Carbon Dioxide Level 35 mmol/L Anion Gap 6.0 mmol/L Blood Urea Nitrogen 45 mg/dl Creatinine 1.90 mg/dl Est Creatinine Clear Calc Drug Dose 23.0 ml/min Estimated GFR () 30.0 Estimated GFR (Non- 25.9 BUN/Creatinine Ratio 23.8 Random Glucose 90 mg/dl Calcium Level 9.5 mg/dl Magnesium Level 1.9 mg/dl Thyroid Stimulating Hormone (TSH) 4.830 uIu/ml Free Thyroxine 1.04 ng/dl Free Triiodothyronine 1.48 pg/ml Assessment & Plan 71 yo F presents with acute bilateral leg swelling. Acute diastolic heart failure exacerbation with preserved EF Acute right sided heart failure Hx of pulmonary hypertension -- given IV Bumex -- -800cc so far wt down to 71kg -- crea improved to 1.9 further diuretic management per Cardiology, appreciate the input YAZMIN on CKD IV baseline cr 1.8 crea 2.2 --> 1.9 -- monitor while on diuretics Possible B/L Lower Extremity Cellulitis -- check Procalcitonin -- seems to be improving on Ceftriaxone IV Right Elbow and Wrist Pain -- check Xrays to r/o fracture Atrial fibrillation -currently in sinus rhythm, cont warfarin and metoprolol inr 3.8--> 2.4 -- resume but lower dose of Coumadin to 3mg po daily Dementia-cont Aricept HTN-labile but controlled -- On Toprol xl and hydralazine Anemia, multifactorial 2/2 iron def 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 At baseline. Nephro following as outpatient. Hypothyroidism-tsh mildly elevated -- normal free t4 t3 low -- repeat as outpatient -- on Synthroid Constipation -- now with BMs DVT proph- on coumadin Full Code Dispo-Monitor in telemetry pt/ot prior to discharge social service for d/c planning Current Inpatient Medications: Current Inpatient Medications Medications (Trade) Dose Ordered Sig/Mehdi Route Start Time Stop Time Status Last Admin Dose Admin Acetaminophen (Tylenol Tab) 650 mg Q4H PRN PO 08/11/17 16:45 09/10/17 16:44 08/13/17 02:47 650 MG Ondansetron HCl (Zofran Inj) 4 mg Q6H PRN IV 08/11/17 16:45 09/10/17 16:44 Nitroglycerin (Nitrostat Tab) 0.4 mg UD PRN SL 08/11/17 16:45 09/10/17 16:44 Polyethylene (Miralax Powder Packet) 17 gm DAILY PRN PO 08/11/17 16:45 09/10/17 16:44 Brinzolamide (Azopt) 1 drops BID OPB 08/11/17 21:30 09/10/17 21:29 08/13/17 08:29 1 DROPS Calcitriol (Rocaltrol Cap) 0.25 mcg DAILY PO 08/12/17 09:00 09/11/17 08:59 08/13/17 08:30 0.25 MCG Docusate Sodium (coLACE CAP) 100 mg BID PO 08/11/17 21:30 09/10/17 21:29 08/13/17 08:28 100 MG Donepezil HCl (Aricept Tab) 10 mg HS PO 08/11/17 21:30 09/10/17 21:29 08/12/17 19:20 10 MG Salmeterol Xinafoate/ Fluticasone (Advair Diskus 250/50 Inh) 1 puff BID INH 08/11/17 21:30 09/10/17 21:29 08/13/17 08:29 1 PUFF Fluticasone Propionate (Flonase Nasal [place]) 1 sprays BID PAULIE 08/11/17 21:30 09/10/17 21:29 08/13/17 08:29 1 SPRAYS Gabapentin (Neurontin Cap) 300 mg QDL PO 08/12/17 11:30 09/11/17 11:29 08/12/17 11:53 300 MG Gabapentin (Neurontin Cap) 600 mg AMHS PO 08/11/17 21:30 09/10/17 21:29 08/13/17 08:29 600 MG Hydralazine HCl (Apresoline Tab) 10 mg BID PO 08/11/17 21:30 09/10/17 21:29 08/13/17 08:28 10 MG Levothyroxine Sodium (Synthroid Tab) 75 mcg DAILYBB PO 08/12/17 06:00 09/11/17 05:59 08/13/17 06:03 75 MCG Loratadine (Claritin Tab) 10 mg DAILY PO 08/12/17 09:00 09/11/17 08:59 08/13/17 08:28 10 MG Metoprolol Succinate (Toprol Xl Tab) 12.5 mg DAILY PO 08/12/17 09:00 09/11/17 08:59 Nitroglycerin (Nitrostat Tab) 0.4 mg UD PRN SL 08/11/17 21:30 09/10/17 21:29 Oxybutynin Chloride (Ditropan-Xl Tab) 5 mg DAILY PO 08/12/17 09:00 09/11/17 08:59 08/13/17 08:28 5 MG Pantoprazole Sodium (Protonix Tab) 40 mg DAILY PO 08/12/17 09:00 09/11/17 08:59 08/13/17 08:28 40 MG Warfarin Sodium (Coumadin Tab) 5 mg DAILY@1600 PO 08/12/17 16:00 09/11/17 15:59 Future Hold Miscellaneous Information (Order Awaiting Action) 1 ea QS N/A 08/12/17 00:00 09/11/17 00:00 Albuterol (Ventolin Hfa Inhaler) 2 puffs Q6H PRN INH 08/11/17 21:30 09/10/17 21:29 Ferrous Sulfate (Feosol Tab) 325 mg BIDM PO 08/12/17 07:30 09/11/17 07:29 08/13/17 08:29 325 MG Pravastatin Sodium (Pravachol Tab) 80 mg HS PO 08/11/17 21:30 09/10/17 21:29 08/12/17 19:21 80 MG Albuterol Sulfate (Ventolin 0.083% 2.5MG/3ML Neb) 2.5 mg Q4H PRN INH 08/12/17 09:00 09/11/17 08:59 Ceftriaxone Sodium 1 gm/ Dextrose 50 ml @ 100 mls/hr Q24H IV 08/12/17 11:00 08/22/17 10:59 08/12/17 11:53 100 MLS/HR Warfarin Sodium (Coumadin Tab) 3 mg DAILY@16 PO 08/13/17 16:00 09/12/17 15:59
--- NOTE | 2017-08-13 10:05 | Clinical Documentation Query ---
FREDERIC Huang : CLINICAL DOCUMENTATION QUERIES QUERY 1 OF 2 Patient is a 71 year old female admitted for acute CHF exacerbation. H&P notes a history of 3 L/min continuous supplemental oxygen utilization via nasal cannula. In your clinical opinion is this patient being managed for: ( ) Chronic respiratory failure with hypoxia ( ) Not Agree (X ) Other explanation of clinical findings (Please Explain) Acute On Chronic Respiratory Failure with Hypoxia ( ) Unable to determine (Please Define) ( ) Need to Discuss The medical record reflects the following clinical findings, treatment, and risk factors. Clinical Indicators: As above Treatment: Ongoing provision of supplemental oxygen Risk Factors: Age, smoking/COPD, anemia QUERY 2 OF 2 A possible discrepancy exists within the medical record. H&P documentation includes "Acute diastolic heart failure exacerbation". However, EF that was noted was that of the left ventricle. Most recent echocardiogram demonstrated severely reduced RV systolic function and evidence of pulmonary hypertension. She was treated with IV Bumex, admitted to telemetry for serial enzymes and cardiology consultation. Please clarify as clinically appropriate. In your clinical opinion is this patient being managed for: ( X) Acute cor pulmonale/RV systolic CHF on chronic systolic RV failure ( ) Not Agree ( ) Other explanation of clinical findings (Please Explain) ( ) Unable to determine (Please Define) ( ) Need to Discuss The medical record reflects the following clinical findings, treatment, and risk factors. Clinical Indicators: As above Treatment: Bumex, telemetry, cardiology consultation Risk Factors: COPD, pulmonary hypertension Please clarify and document your clinical opinion in the progress notes and discharge summary. Terms such as "probable", "suspected", "likely", "questionable", "possible", or "still to be ruled out" are acceptable. IF IN AGREEMENT, YOU MUST DOCUMENT ABOVE DIAGNOSTIC STATEMENT IN DAILY PROGRESS NOTES AND DISCHARGE SUMMARY. This document is not part of the patient's record. Thank You, Bright Mendes, RN [phone]
[2017-08-13] MEDS ORDERED: LEVALBUTEROL/IPRATROPIUM NEB INH PRN (10:30)
[2017-08-13] MEDS ORDERED: LEVALBUTEROL/IPRATROPIUM NEB INH ONE (10:30)
[2017-08-13] MEDS ORDERED: LEVALBUTEROL 1.25MG/0.5ML NEB INH STA (10:52)
[2017-08-13] MEDS ORDERED: IPRATROPIUM BROMIDE NEB SOLN 0.02% 2.5 ML VIAL INH STA (10:52)
[2017-08-13] MEDS ORDERED: BUMETANIDE IV 1 MG in SYRINGE 0 ML IV ONE (11:00)
--- NOTE | 2017-08-13 11:13 | DIAGNOSTIC IMAGING REPORT ---
WRIST MIN 3 VIEWS ROUTINE CLINICAL HISTORY: 71 years-old Female presenting with status post fall, right elbow and wrist pain with swelling. TECHNIQUE: Frontal, bilateral oblique, and lateral views of the right wrist were obtained. COMPARISON: None. FINDINGS: Osteopenia, which limits evaluation for nondisplaced fracture. Radiocarpal, intercarpal, and carpometacarpal articulations intact. Degenerative changes of the first metacarpophalangeal joint. No displaced fracture or malalignment. Atherosclerosis. Diffuse subcutaneous edema suggested. IMPRESSION: Allowing for osteopenia, no acute osseous injury. Electronically signed by: Kin Garrett M.D. 08/13/2017 11:12 AM Dictated Date/Time: 08/13/2017 11:10 AM
--- NOTE | 2017-08-13 11:15 | DIAGNOSTIC IMAGING REPORT ---
ELBOW MIN 3 VIEWS ROUTINE CLINICAL HISTORY: 71 years-old Female presenting with status post fall, right elbow and wrist pain. TECHNIQUE: Frontal, oblique, and lateral views the right elbow were obtained. COMPARISON: Correlation made to plain radiographs of the left elbow from 07/04/2016. FINDINGS: No gross evidence of an elbow joint effusion. Minimal cortical irregularity along the olecranon without convincing evidence of an avulsion fracture fragment. No acute fracture or malalignment. No significant degenerative change. Atherosclerosis. Diffuse subcutaneous tissue prominence, likely adipose tissue. IMPRESSION: No acute osseous injury of the right elbow. Electronically signed by: Kin Garrett M.D. 08/13/2017 11:14 AM Dictated Date/Time: 08/13/2017 11:12 AM
--- NOTE | 2017-08-13 11:17 | DIAGNOSTIC IMAGING REPORT ---
CHEST ONE VIEW PORTABLE CLINICAL HISTORY: Congestive heart failure. COMPARISON STUDY: Chest radiograph August 11, 2017. FINDINGS: There is no pneumothorax. No pleural effusion is identified. Cardiomegaly is again noted as well as marked dilatation of the central pulmonary arteries indicative of pulmonary hypertension. Bilateral airspace opacities have progressed. IMPRESSION: 1. Progression of bilateral airspace opacities which favors pulmonary edema although bilateral pneumonia could appear similar. 2. No change in cardiomegaly and marked dilatation of the central pulmonary arteries indicative of pulmonary arterial hypertension. Electronically signed by: Alejo Moya M.D. 08/13/2017 11:16 AM Dictated Date/Time: 08/13/2017 11:09 AM
[2017-08-13 11:18] LABS: ARTERIAL BLOOD GAS BASE EXCESS 6.5 mEq/L (-9-1.8); ARTERIAL BLOOD GAS HCO3 34 mmol/L (19-24); ARTERIAL BLOOD GAS PO2 94 mm/Hg (80-95); ARTERIAL BLOOD GAS pH 7.34 (7.35-7.45)
[2017-08-13] MEDS: CEFTRIAXONE SOD INJ 1 GM in DEXTROSE 5% ADD-VANTAGE 50ML 50 ML IV SCH (11:20)
[2017-08-13 11:21] LABS: O2 ADMINISTRATION 15 L
[2017-08-13 11:22] LABS: ALLEN TEST POS (POS)
--- NOTE | 2017-08-13 13:49 | Neurology Consultation ---
Neurology Consultation Date of Consultation: Aug 13, 2017. Attending Physician: Markos Narayan MD Primary Care Physician: Jodi South D.O. Reason for Consultation: possible seizure episode History of Present Illness Source: patient, hospital records Lea is a 71 year old female with PMH CHF on Bumex, COPD, HTN, ASD, hypothyroid , GERD, HLD, CKD IV, tacky james syndrome, R-CHF. She was recently admitted - for pneumonia. She denies any weight gain, chest pain, shortness of breath and has not required an increase of her chronic home oxygen. She reports being compliant with medications. Lives with daughter and has Home Health, who states that she is declining and needs placement but daughter doesn't think so. She does not know her medications and appears to have poor insight into her disease processes. According to chart had combative episodes with her daughter. She state she remembers being at home and daughter brought her to the ED because she said she was shaking in her sleep. She does not remember the episode but does remember being in the ED. denies CP, SOB, abdominal pain, one sided weakness, numbness tingling, N, V, incontinence (other than her normal) biting tongue. Past Medical/Surgical History Medical Problems: (1) Acute kidney injury Status: Acute (2) Atrial flutter Status: Acute (3) Back pain Status: Acute (4) Bilateral knee pain Status: Acute (5) CHF (congestive heart failure) Status: Acute (6) CHF exacerbation Status: Acute (7) Closed head injury Status: Acute (8) Concussion Status: Acute (9) COPD exacerbation Status: Acute (10) Fall Status: Acute (11) Hyperkalemia Status: Acute (12) Hypoxia Status: Acute (13) Lower extremity edema Status: Acute (14) Peripheral edema Status: Acute (15) Pneumonia Status: Acute (16) Pneumonia involving right lung Status: Acute (17) Sciatica Status: Acute (18) Seizure Status: Acute (19) Sepsis Status: Acute (20) Subtherapeutic international normalized ratio (INR) Status: Acute (21) Weakness Status: Acute Social History Smoking Status: Former smoker Smokeless Tobacco Use: No Alcohol Use: none Drug Use: none Marital Status: single Housing Status: other Occupation Status: disabled Allergies Coded Allergies: Levofloxacin (Verified Allergy, Intermediate, HIVES, 3/3/17) Quinolones (Verified Allergy, Intermediate, HIVES, 01/25/17) Ranitidine (Verified Allergy, Intermediate, HIVES, 01/25/17) Sulfamethoxazole (Verified Allergy, Intermediate, HIVES, 01/25/17) Trimethoprim (Verified Allergy, Intermediate, HIVES, 01/25/17) Clarithromycin (Verified Allergy, Mild, HIVES, CAN TAKE ZITHROMAX W/O PROB , 01/25/17) Amoxicillin (Verified Allergy, Unknown, HIVES, 01/25/17) Omeprazole (Verified Allergy, Unknown, HAS HAD PROTONIX, 01/25/17) Current Inpatient Medications Current Inpatient Medications Medications (Trade) Dose Ordered Sig/Mehdi Route Start Time Stop Time Status Last Admin Dose Admin Acetaminophen (Tylenol Tab) 650 mg Q4H PRN PO 08/11/17 16:45 09/10/17 16:44 08/13/17 02:47 650 MG Ondansetron HCl (Zofran Inj) 4 mg Q6H PRN IV 08/11/17 16:45 09/10/17 16:44 Nitroglycerin (Nitrostat Tab) 0.4 mg UD PRN SL 08/11/17 16:45 09/10/17 16:44 Polyethylene (Miralax Powder Packet) 17 gm DAILY PRN PO 08/11/17 16:45 09/10/17 16:44 Brinzolamide (Azopt) 1 drops BID OPB 08/11/17 21:30 09/10/17 21:29 08/13/17 08:29 1 DROPS Calcitriol (Rocaltrol Cap) 0.25 mcg DAILY PO 08/12/17 09:00 09/11/17 08:59 08/13/17 08:30 0.25 MCG Docusate Sodium (coLACE CAP) 100 mg BID PO 08/11/17 21:30 09/10/17 21:29 08/13/17 08:28 100 MG Donepezil HCl (Aricept Tab) 10 mg HS PO 08/11/17 21:30 09/10/17 21:29 08/12/17 19:20 10 MG Salmeterol Xinafoate/ Fluticasone (Advair Diskus 250/50 Inh) 1 puff BID INH 08/11/17 21:30 09/10/17 21:29 08/13/17 08:29 1 PUFF Fluticasone Propionate (Flonase Nasal [place]) 1 sprays BID PAULIE 08/11/17 21:30 09/10/17 21:29 08/13/17 08:29 1 SPRAYS Gabapentin (Neurontin Cap) 300 mg QDL PO 08/12/17 11:30 09/11/17 11:29 08/13/17 11:20 300 MG Gabapentin (Neurontin Cap) 600 mg AMHS PO 08/11/17 21:30 09/10/17 21:29 08/13/17 08:29 600 MG Hydralazine HCl (Apresoline Tab) 10 mg BID PO 08/11/17 21:30 09/10/17 21:29 08/13/17 08:28 10 MG Levothyroxine Sodium (Synthroid Tab) 75 mcg DAILYBB PO 08/12/17 06:00 09/11/17 05:59 08/13/17 06:03 75 MCG Loratadine (Claritin Tab) 10 mg DAILY PO 08/12/17 09:00 09/11/17 08:59 08/13/17 08:28 10 MG Metoprolol Succinate (Toprol Xl Tab) 12.5 mg DAILY PO 08/12/17 09:00 09/11/17 08:59 Nitroglycerin (Nitrostat Tab) 0.4 mg UD PRN SL 08/11/17 21:30 09/10/17 21:29 Oxybutynin Chloride (Ditropan-Xl Tab) 5 mg DAILY PO 08/12/17 09:00 09/11/17 08:59 08/13/17 08:28 5 MG Pantoprazole Sodium (Protonix Tab) 40 mg DAILY PO 08/12/17 09:00 09/11/17 08:59 08/13/17 08:28 40 MG Warfarin Sodium (Coumadin Tab) 5 mg DAILY@1600 PO 08/12/17 16:00 09/11/17 15:59 Future Hold Miscellaneous Information (Order Awaiting Action) 1 ea QS N/A 08/12/17 00:00 09/11/17 00:00 Albuterol (Ventolin Hfa Inhaler) 2 puffs Q6H PRN INH 08/11/17 21:30 09/10/17 21:29 Ferrous Sulfate (Feosol Tab) 325 mg BIDM PO 08/12/17 07:30 09/11/17 07:29 08/13/17 08:29 325 MG Pravastatin Sodium (Pravachol Tab) 80 mg HS PO 08/11/17 21:30 09/10/17 21:29 08/12/17 19:21 80 MG Albuterol Sulfate (Ventolin 0.083% 2.5MG/3ML Neb) 2.5 mg Q4H PRN INH 08/12/17 09:00 09/11/17 08:59 08/13/17 10:35 2.5 MG Ceftriaxone Sodium 1 gm/ Dextrose 50 ml @ 100 mls/hr Q24H IV 08/12/17 11:00 08/22/17 10:59 08/13/17 11:20 100 MLS/HR Warfarin Sodium (Coumadin Tab) 3 mg DAILY@16 PO 08/13/17 16:00 09/12/17 15:59 Ipratropium Colver (Atrovent 0.02% 0.5MG/2.5ML Neb) 0.5 mg Q4R PRN INH 08/13/17 11:00 09/12/17 10:59 Levalbuterol (Xopenex 1.25MG/ 0.5ML Neb) 1.25 mg Q4R PRN INH 08/13/17 11:00 09/12/17 10:59 Physical Exam Vital Signs (Past 24 Hrs): Date Time Temp Pulse Resp B/P (MAP) Pulse Ox O2 Delivery O2 Flow Rate FiO2 08/13/17 12:00 Oxymask 10.0 08/13/17 11:03 36.9 67 18 151/63 (92) 96 Oxymask 14.0 08/13/17 10:35 67 18 91 Mask 13.0 08/13/17 08:00 Oxymask 6.0 08/13/17 06:56 37.0 53 16 122/58 (79) 92 Oxymask 5.0 08/13/17 04:00 Oxymask 6.0 08/13/17 02:48 37.2 67 20 138/59 (85) 95 Nasal Cannula 6.0 08/13/17 00:00 Nasal Cannula 6.0 9/18/17 23:20 37.2 58 22 144/52 (82) 92 Nasal Cannula 6.0 08/12/17 20:00 Nasal Cannula 6.0 Oxymask 08/12/17 19:13 37.1 56 16 123/55 (77) 91 Nasal Cannula 5.0 08/12/17 18:59 37.0 61 20 100/82 (88) 92 Nasal Cannula 4.0 08/12/17 16:00 Nasal Cannula 6.0 Oxymask 08/12/17 15:57 36.9 70 18 162/63 (96) 92 Nasal Cannula 5.0 Physical Exam: Constitutional:appearance nourished, obese Ears, Nose, Mouth and Throat: mucous membranes moist, no injection and skin normal, eyes normal Cardiovascular: irregular Respiratory: course breath sounds Musculoskeletal: + peripheral edema Skin: LE to knees erythema Eyes: extraocular muscles intact (EOMI) and pupils equal, round and reactive to light (PERRL) NEUROLOGIC EXAMINATION: Mental status: Alert and interactive Oriented to full date and location, [facility], [facility], lives in [place], difficulty with no ifs ands or buts, can stick out tongue, close eye point to ceiling with right hand Oriented to person Speech fluent with no evidence of aphasia Cranial Nerves smile eye brow raise symmetric Reflexes: Deep tendon reflexes were symmetrical and graded 2/5. Plantar responses neutral Sensory: decreased sensation to cool touch from mid calf to toes, GT proprioception absent Coordination: finger to nose no bi pass Gait/Stance: Posture lying in bed easily aroused Motor: Negative for pronator drift of out stretched arms with eyes closed. Strength: biceps triceps hand mobility engineer 5/5 bilaterally, hip flex 4/5 plantar flex ext 5/5 bilaterally Laboratory Results Past 24 Hours: 08/13/17 05:29 Red Blood Count 3.28, Mean Corpuscular Volume 101.8, Mean Corpuscular Hemoglobin 31.4, Mean Corpuscular Hemoglobin Concent 30.8, Mean Platelet Volume 12.4, Neutrophils (%) (Auto) 65.5, Lymphocytes (%) (Auto) 16.8, Monocytes (%) ( Auto) 14.3, Eosinophils (%) (Auto) 2.7, Basophils (%) (Auto) 0.5, Neutrophils # (Auto) 3.70, Lymphocytes # (Auto) 0.95, Monocytes # (Auto) 0.81, Eosinophils # ( Auto) 0.15, Basophils # (Auto) 0.03 08/13/17 05:29 Test 08/13/17 05:29 08/13/17 11:05 White Blood Count 5.65 K/uL (4.8-10.8) Red Blood Count 3.28 M/uL (4.2-5.4) Hemoglobin 10.3 g/dL (12.0-16.0) Hematocrit 33.4 % (37-47) Mean Corpuscular Volume 101.8 fL (80-100) Mean Corpuscular Hemoglobin 31.4 pg (25-34) Mean Corpuscular Hemoglobin Concent 30.8 g/dl (32-36) Platelet Count 136 K/uL (130-400) Mean Platelet Volume 12.4 fL (7.4-10.4) Neutrophils (%) (Auto) 65.5 % Lymphocytes (%) (Auto) 16.8 % Monocytes (%) (Auto) 14.3 % Eosinophils (%) (Auto) 2.7 % Basophils (%) (Auto) 0.5 % Neutrophils # (Auto) 3.70 K/uL (1.4-6.5) Lymphocytes # (Auto) 0.95 K/uL (1.2-3.4) Monocytes # (Auto) 0.81 K/uL (0.11-0.59) Eosinophils # (Auto) 0.15 K/uL (0-0.5) Basophils # (Auto) 0.03 K/uL (0-0.2) RDW Standard Deviation 55.7 fL (36.4-46.3) RDW Coefficient of Variation 15.1 % (11.5-14.5) Immature Granulocyte % (Auto) 0.2 % Immature Granulocyte # (Auto) 0.01 K/uL (0.00-0.02) Prothrombin Time 26.2 SECONDS (9.0-12.0) Prothromb Time International Ratio 2.4 (0.9-1.1) Anion Gap 6.0 mmol/L (3-11) Est Creatinine Clear Calc Drug Dose 23.0 ml/min Estimated GFR () 30.0 Estimated GFR (Non- 25.9 BUN/Creatinine Ratio 23.8 (10-20) Calcium Level 9.5 mg/dl (8.5-10.1) Magnesium Level 1.9 mg/dl (1.8-2.4) Procalcitonin 0.05 ng/ml (0-0.5) Thyroid Stimulating Hormone (TSH) 4.830 uIu/ml (0.300-4.500) Free Thyroxine 1.04 ng/dl (0.80-1.60) Free Triiodothyronine 1.48 pg/ml (2.30-4.20) Arterial Blood pH 7.34 (7.35-7.45) Arterial Blood Partial Pressure CO2 64 mmHg (35-46) Arterial Blood Partial Pressure O2 94 mm/Hg (80-95) Arterial Blood HCO3 34 mmol/L (19-24) Arterial Blood Oxygen Saturation 96.0 % (90-95) Arterial Blood Base Excess 6.5 mEq/L (-9-1.8) Arterial Blood Gas Delivery 15 L Aditya Test POS (POS) Imaging TTE- Ejection Fraction = 60-65%. * The right ventricle is severely dilated. * The right ventricular systolic function is severely reduced. * There is moderate to severe tricuspid regurgitation. * The estimated systolic PAP is 56mmHg. * Flattened septum is consistent with RV pressure/volume overload. * Trivial loculated posterior pericardial effusion. NO ASD Impression 71 year old female s/p shaking event possible seizure - recurrent events Plan 1. EEG currently in process 2. cardiology for input with known heart disease 3. no seizures seen on previous EEGs if this one is negative also would recommend out patient EEG (72 hour) 4. also could start Keppra 500 mg BID to see if events stop. multiple medical issues would prefer doing 72 hour EEG first 5. MRI from previous episode negative no current indication 6. may need alterative placement or rehab prior to return home further recommendations to follow I have seen and discussed above patient with Dr Ayo Edgar, neurology Case reviewed and patient seen but sh has no recall or limited recall of the event in question but again doubt seizure and eeg is again negative and her only complaint is right wrist pain post phlebotomy will likely need an outpatient 72 hour eeg to clarify things unless there is a cardiac abnormality but for no am loathe to rx her with aeds Ayo edgar MD
--- NOTE | 2017-08-13 14:22 | CARDIOLOGY PROGRESS NOTE ---
DATE: 08/13/2017 SUBJECTIVE: The patient is seen and examined at the bedside. The patient states respiratory status is unchanged. Lower extremity edema has improved. Diuretic therapy was held due to elevated creatinine yesterday. She was also prescribed intravenous antibiotics for possible cellulitis. There are no tachy or james dysrhythmias on telemetry. The patient offers no complaints at this time. REVIEW OF SYSTEMS: Pertinent positives noted above. Four-system review including cardiovascular, pulmonary, gastroenterologic, and neurologic systems otherwise negative. LABORATORY DATA: White blood cell count 5.65, hemoglobin is 10.3, platelet count is 136. Creatinine is 1.90 today. Her INR is 2.4 today. PHYSICAL EXAMINATION: VITAL SIGNS: Temperature 36.9 degrees centigrade, pulse 67 beats per minute and regular, respiratory rate is 18 breaths per minute, blood pressure 151/63, SaO2 is 96% on 14-liter mask. GENERAL: NAD, awake and alert. HEENT: Mucous membranes moist. No scleral icterus. NECK: Supple with elevated JVD. HEART: Regular and bradycardic with a normal S1 and S2 with 1/6 systolic murmur heard best at left sternal border. LUNGS: Demonstrate clear breath sounds without rales, rhonchi, or wheeze. ABDOMEN: Soft, nontender. No rebound or guarding. Normal bowel sounds. EXTREMITIES: Demonstrate mild pretibial erythema. There is trace to mild pretibial edema as well. NEUROLOGIC: Demonstrates no focal motor deficit. FINAL IMPRESSION: 1. A 71-year-old female admitted with acute on chronic diastolic and right-sided heart failure. The patient developed azotemia with 1 dose of intravenous diuretic therapy. Creatinine has improved overnight and volume status seems to have improved as well. 2. Possible lower extremity cellulitis. 3. 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 4. Therapeutic INR. 5. Acute on chronic renal insufficiency -- creatinine improved today. 6. Severe oxygen dependent chronic obstructive pulmonary disease. PLAN AND RECOMMENDATIONS: Recommend patient resume outpatient diuretic therapy with 1 mg Bumex alternating with 2 mg as previously ordered. Repeat basic metabolic panel in the a.m. Await results of repeat chest x-ray today. Other cardiovascular medications will be continued as previously ordered. The patient may also resume Coumadin with a repeat INR in the a.m. We will continue to follow along during hospitalization.
[2017-08-13] MEDS: WARFARIN SOD 3 MG TAB PO SCH (16:52)
--- NOTE | 2017-08-13 16:56 | DIAGNOSTIC IMAGING REPORT ---
ULTRASOUND BILATERAL LOWER EXTREMITY VENOUS CLINICAL HISTORY: Lower extremity edema. COMPARISON STUDY: Bilateral lower extremity venous ultrasound dated 01/14/17. TECHNIQUE: Real-time, grayscale, and color Doppler sonography of the deep veins of the right and left lower extremity was performed from the inguinal crease to the calf. Compression and augmentation were utilized. FINDINGS: There is no sonographic evidence of deep venous thrombosis identified in the right or left lower extremity. The common femoral, superficial femoral, and popliteal veins are patent and normally compressible bilaterally. The greater saphenous vein and the profunda femoris vein at the junction with the common femoral vein are clear in both legs. The visualized calf veins are patent bilaterally. IMPRESSION: There is no sonographic evidence of deep venous thrombosis identified in the right or left lower extremity. Electronically signed by: Roby Hauser M.D. 08/13/2017 4:54 PM Dictated Date/Time: 08/13/2017 4:54 PM
[2017-08-13] MEDS: PRAVASTATIN SOD 40 MG TAB PO SCH (20:41)
[2017-08-13] MEDS: DONEPEZIL HCL 10 MG TAB PO SCH (20:41)
[2017-08-14] VITALS (7 sets, daily range): BP systolic 113–151; BP diastolic 54–78; PULSE 56–71; TEMP 36.7–37.5; O2SAT 91–95
[2017-08-14] MEDS: LEVOTHYROXINE 75 MCG TAB PO SCH (06:09)
[2017-08-14 06:33] LABS: BASO % 0.5 %; BASO ABS # 0.03 K/uL (0-0.2); COMPLETE YES; EOS % 4.1 %; HEMATOCRIT 33.4 % (37-47); LYMPH % 17.8 %; MEAN CELL VOLUME 100.9 fL (80-100); MEAN CORPUSCULAR HGB CONC 31.7 g/dl (32-36); MEAN PLATELET VOLUME 12.1 fL (7.4-10.4); MONO % 12.1 %; NEUT % 65.5 %; PLATELET COUNT 136 K/uL (130-400); RED BLOOD COUNT 3.31 M/uL (4.2-5.4); WHITE BLOOD COUNT 5.63 K/uL (4.8-10.8)
[2017-08-14 06:59] LABS: PROTHROMBIN TIME (PATIENT) 22.6 SECONDS (9.0-12.0)
[2017-08-14 07:02] LABS: BUN/CREATININE RATIO 22.9 (10-20); CALCIUM 9.4 mg/dl (8.5-10.1); CREATININE 1.8 mg/dl (0.60-1.20); MAGNESIUM 1.9 mg/dl (1.8-2.4); POTASSIUM 3.9 mmol/L (3.5-5.1)
[2017-08-14] MEDS: FERROUS SULFATE 325 MG TAB PO SCH ×2 (07:29→17:00)
[2017-08-14] MEDS: INCRUSE ELLIPTA~ORDER AWAITING ACTION SCH ×3 (07:30→16:00)
--- NOTE | 2017-08-14 07:58 | ELECTROENCEPHALOGRAPH REPORT ---
____ Dr. Dacia Amaya And Dr. Ayo Edgar. CLINICAL DIAGNOSIS: Possible seizure activity in a woman with progressive dementia. ELECTROENCEPHALOGRAM DIAGNOSIS: Mildly diffusely abnormal EEG during wakefulness. DESCRIPTION OF TRACING: This EEG was done as a bedside recording and is of reasonable technical quality with a few muscle movement artifacts. Simultaneous video analysis of patient's movement and behavior was obtained and there is quite a bit of head nodding and head rolling activity which fortunately is not reflected that frequently in the EEG, but does occasionally associated with some bifrontal higher amplitude activity, likely reflecting ____. Photic stimulation was not performed. Hyperventilation was not performed. Drowsiness and light sleep are not clearly recorded. During what appears to be wakefulness based on the video recording, there is evidence for a background rhythm in the upper theta range at 8 Hz of maximum frequency and of up to 30 microvolts of maximum amplitude. This appears to be symmetrical and maximum in posterior head regions. Polymorphic [id number] frequency theta activity intermixed with occasional waveforms in the delta range is seen over the central regions without any focal or regional predominance. Anterior head region maximum bilaterally symmetrical low voltage fast activity in the beta range is present. At no time during the tracing is there evidence for a clearcut potentially epileptogenic activity in the form of polyspike or spike wave bursts, focal sharp waves or focal spikes. INTERPRETATION: This EEG reveals a most mild nonspecific and diffuse nonlateralizing abnormalities consistent with an underlying encephalopathy of indeterminate causation. There is no evidence for associated potentially epileptogenic patterns, however.
[2017-08-14] MEDS: FLUTICASONE/SALMETEROL 250/50 (ADVAIR) 14 PUFF/1 INHALER INH SCH ×2 (08:42→20:50)
[2017-08-14] MEDS: FLUTICASONE PROPIONATE NA SPR 16 GM BTL NAE SCH ×2 (08:43→20:50)
[2017-08-14] MEDS: PANTOprazole SOD 40 MG TAB PO SCH (08:44)
[2017-08-14] MEDS: OXYBUTYNIN CHLORIDE 5 MG TABCR PO SCH (08:44)
[2017-08-14] MEDS: METOPROLOL SUCC 25MG EXT REL TAB PO SCH (08:44)
[2017-08-14] MEDS: HydrALAZINE 10 MG TAB PO SCH ×2 (08:44→20:52)
[2017-08-14] MEDS: DOCUSATE SODIUM 100 MG CAP PO SCH ×2 (08:44→20:51)
[2017-08-14] MEDS: LORATADINE 10 MG TAB PO SCH (08:44)
[2017-08-14] MEDS: GABAPENTIN 300 MG CAP PO SCH ×3 (08:45→20:51)
[2017-08-14] MEDS: CALCITRIOL 0.25 MCG CAP PO SCH (08:46)
[2017-08-14] MEDS: BRINZOLAMIDE (AZOPT) OPS 10 ML BTL OPB SCH ×2 (08:47→20:53)
[2017-08-14] MEDS: CEFTRIAXONE SOD INJ 1 GM in DEXTROSE 5% ADD-VANTAGE 50ML 50 ML IV SCH (10:37)
[2017-08-14] MEDS ORDERED: BUMETANIDE 1 MG TAB PO ONE (10:57)
--- NOTE | 2017-08-14 10:57 | Cardiology Follow-Up ---
Subjective General Date of Service: Aug 14, 2017. Pt evaluation today including: conversation w/ patient, physical exam, chart review, lab review, review of studies, review of inpatient medication list History of Present Illness The patient is a 71 year old female seen in follow up. C/o right wrist pain. Denies CP or palpitations. 8-beat ranjan NSVT at 1238 AM. No reported symptoms. Edema unchanged. No changes overnight. Allergies Coded Allergies: Levofloxacin (Verified Allergy, Intermediate, HIVES, 01/25/17) Quinolones (Verified Allergy, Intermediate, HIVES, 01/25/17) Ranitidine (Verified Allergy, Intermediate, HIVES, 01/25/17) Sulfamethoxazole (Verified Allergy, Intermediate, HIVES, 01/25/17) Trimethoprim (Verified Allergy, Intermediate, HIVES, 01/25/17) Clarithromycin (Verified Allergy, Mild, HIVES, CAN TAKE ZITHROMAX W/O PROB , 01/25/17) Amoxicillin (Verified Allergy, Unknown, HIVES, 01/25/17) Omeprazole (Verified Allergy, Unknown, HAS HAD PROTONIX, 01/25/17) Social History Smoking Status: Former Smoker Hx Tobacco Use In Past Year?: No Hx Alcohol Use - Type And Amou: No Hx Substance Use - Type And Am: Yes Problem List Medical Problems: (1) Acute kidney injury Status: Acute (2) Atrial flutter Status: Acute (3) Back pain Status: Acute (4) Bilateral knee pain Status: Acute (5) CHF (congestive heart failure) Status: Acute (6) CHF exacerbation Status: Acute (7) Closed head injury Status: Acute (8) Concussion Status: Acute (9) COPD exacerbation Status: Acute (10) Fall Status: Acute (11) Hyperkalemia Status: Acute (12) Hypoxia Status: Acute (13) Lower extremity edema Status: Acute (14) Peripheral edema Status: Acute (15) Pneumonia Status: Acute (16) Pneumonia involving right lung Status: Acute (17) Sciatica Status: Acute (18) Seizure Status: Acute (19) Sepsis Status: Acute (20) Subtherapeutic international normalized ratio (INR) Status: Acute (21) Weakness Status: Acute Review of Systems Respiratory: + shortness of breath, + dyspnea on exertion, No cough, No sputum , No wheezing, No dyspnea at rest, No hemoptysis Cardiac: + edema, No chest pain, No orthopnea, No claudication, No palpitations Physical Exam Vital Signs Last Vital Signs Documentation Date Time Temp Pulse Resp B/P (MAP) Pulse Ox O2 Delivery O2 Flow Rate FiO2 08/14/17 08:00 Nasal Cannula 6.0 Oxymask 08/14/17 07:41 37.0 56 20 134/55 (81) 94 Physical Exam Constitutional: General Apperance: overweight Level of Distress: chronically ill Head: normocephalic Lungs: Auscultation: no rhonchi, expiratory wheezing Cardiovascular: Heart Auscultation: RRR, normal S1, normal S2, I/ WSM Peripheral Pulses: Radial Pulse: normal on the right Abdomen: Bowel Sounds: normal Inspection & Palpation: soft, non-distended, no tenderness, guarding & rebound Extremities: no cyanosis, edema (1+ pretibial edema with associated erythema.) Neurologic: Cranial Nerves: grossly intact Assessment and Plan Assessment and Plan FINAL IMPRESSION: 1. Acute on chronic diastolic and right-sided heart failure. - improving 2. Possible lower extremity cellulitis. 3. 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 4. Therapeutic INR. 5. Acute on chronic renal insufficiency -- creatinine continues to trend downward. 6. Severe oxygen dependent chronic obstructive pulmonary disease. PLAN AND RECOMMENDATIONS: Restart oral bumex. Will give AM dose of toprol now. Continue to monitor telemetry. Outpatient EP evaluation scheduled. Antibiotics per IM. Will continue to follow during hospitalization. Laboratory Results Last 24 Hours Test 08/13/17 11:05 08/14/17 06:04 Arterial Blood pH 7.34 Arterial Blood Partial Pressure CO2 64 mmHg Arterial Blood Partial Pressure O2 94 mm/Hg Arterial Blood HCO3 34 mmol/L Arterial Blood Oxygen Saturation 96.0 % Arterial Blood Base Excess 6.5 mEq/L Arterial Blood Gas Delivery 15 L Aditya Test POS White Blood Count 5.63 K/uL Red Blood Count 3.31 M/uL Hemoglobin 10.6 g/dL Hematocrit 33.4 % Mean Corpuscular Volume 100.9 fL Mean Corpuscular Hemoglobin 32.0 pg Mean Corpuscular Hemoglobin Concent 31.7 g/dl Platelet Count 136 K/uL Mean Platelet Volume 12.1 fL Neutrophils (%) (Auto) 65.5 % Lymphocytes (%) (Auto) 17.8 % Monocytes (%) (Auto) 12.1 % Eosinophils (%) (Auto) 4.1 % Basophils (%) (Auto) 0.5 % Neutrophils # (Auto) 3.69 K/uL Lymphocytes # (Auto) 1.00 K/uL Monocytes # (Auto) 0.68 K/uL Eosinophils # (Auto) 0.23 K/uL Basophils # (Auto) 0.03 K/uL RDW Standard Deviation 55.2 fL RDW Coefficient of Variation 15.1 % Immature Granulocyte % (Auto) 0.0 % Immature Granulocyte # (Auto) 0.00 K/uL Prothrombin Time 22.6 SECONDS Prothromb Time International Ratio 2.0 Sodium Level 141 mmol/L Potassium Level 3.9 mmol/L Chloride Level 101 mmol/L Carbon Dioxide Level 36 mmol/L Anion Gap 4.0 mmol/L Blood Urea Nitrogen 41 mg/dl Creatinine 1.80 mg/dl Est Creatinine Clear Calc Drug Dose 24.3 ml/min Estimated GFR () 32.0 Estimated GFR (Non- 27.6 BUN/Creatinine Ratio 22.9 Random Glucose 90 mg/dl Calcium Level 9.4 mg/dl Magnesium Level 1.9 mg/dl
--- NOTE | 2017-08-14 14:41 | Progress Note ---
Medicine Progress Note Date & Time of Visit: Aug 14, 2017 at 14:41. Subjective seen sleeping but easily rousable drowsy per RN as patient was not able to sleep well overnight states her breathing is ok today, denies cough, chest pain still has lower leg pain and right wrist pain no other symptoms Objective Last 8 Hrs Date Time Temp Pulse Resp B/P (MAP) Pulse Ox O2 Delivery O2 Flow Rate FiO2 08/14/17 12:00 Nasal Cannula 6.0 Oxymask 08/14/17 10:54 36.7 61 18 113/78 (90) 94 Oxymask 7.0 08/14/17 08:00 Nasal Cannula 6.0 Oxymask 08/14/17 07:41 37.0 56 20 134/55 (81) 94 Oxymask 7.0 Physical Exam: General- oriented x 3, not in distress, speaks in sentences , no acc muscle use Eyes- EOMI, anicteric Neck- no JVD Lungs- mild rales at bilateral bases Heart- regular rhythm; no murmur Abdomen- normal bowel sounds, soft, nontender, Extremities- grade 1 lower leg edema, mild erythema and warmth bilaterally Neuro- alert, oriented x 3;no gross focal deficits Skin- warm & dry Laboratory Results: Last 24 Hours Test 08/14/17 06:04 White Blood Count 5.63 K/uL Red Blood Count 3.31 M/uL Hemoglobin 10.6 g/dL Hematocrit 33.4 % Mean Corpuscular Volume 100.9 fL Mean Corpuscular Hemoglobin 32.0 pg Mean Corpuscular Hemoglobin Concent 31.7 g/dl Platelet Count 136 K/uL Mean Platelet Volume 12.1 fL Neutrophils (%) (Auto) 65.5 % Lymphocytes (%) (Auto) 17.8 % Monocytes (%) (Auto) 12.1 % Eosinophils (%) (Auto) 4.1 % Basophils (%) (Auto) 0.5 % Neutrophils # (Auto) 3.69 K/uL Lymphocytes # (Auto) 1.00 K/uL Monocytes # (Auto) 0.68 K/uL Eosinophils # (Auto) 0.23 K/uL Basophils # (Auto) 0.03 K/uL RDW Standard Deviation 55.2 fL RDW Coefficient of Variation 15.1 % Immature Granulocyte % (Auto) 0.0 % Immature Granulocyte # (Auto) 0.00 K/uL Prothrombin Time 22.6 SECONDS Prothromb Time International Ratio 2.0 Sodium Level 141 mmol/L Potassium Level 3.9 mmol/L Chloride Level 101 mmol/L Carbon Dioxide Level 36 mmol/L Anion Gap 4.0 mmol/L Blood Urea Nitrogen 41 mg/dl Creatinine 1.80 mg/dl Est Creatinine Clear Calc Drug Dose 24.3 ml/min Estimated GFR () 32.0 Estimated GFR (Non- 27.6 BUN/Creatinine Ratio 22.9 Random Glucose 90 mg/dl Calcium Level 9.4 mg/dl Magnesium Level 1.9 mg/dl Assessment & Plan 71 yo F presents with acute bilateral leg swelling. Acute on Chronic Hypoxic Respiratory Failure Acute on Chronic Diastolic and RV heart failure Hx of pulmonary hypertension -- given IV Bumex -- now, usual PO Bumex still requiring supplemental O2 crea stable repeat CXR improving -- monitor appreciate Cardio SVC input YAZMIN on CKD IV baseline cr 1.8 crea 2.2 --> 1.8 -- monitor while on diuretics Possible B/L Lower Extremity Cellulitis -- about the same -- change Ceftri to Clindamycin monitor Right Elbow and Wrist Pain -- Xray to r/o fracture: negative for fracture -- likely Sprain ice compress PRN, monitor Atrial fibrillation -currently in sinus rhythm, cont warfarin and metoprolol inr 3.8--> 2.0 -- continue coumadin Dementia-cont Aricept HTN-labile but controlled -- On Toprol xl and hydralazine Anemia, multifactorial 2/2 iron def 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 At baseline. Nephro following as outpatient. Hypothyroidism-tsh mildly elevated -- normal free t4 t3 low -- repeat as outpatient -- on Synthroid Constipation -- now with BMs DVT proph- on coumadin Full Code Dispo-Monitor in telemetry pt/ot social service for d/c planning Current Inpatient Medications: Current Inpatient Medications Medications (Trade) Dose Ordered Sig/Mehdi Route Start Time Stop Time Status Last Admin Dose Admin Acetaminophen (Tylenol Tab) 650 mg Q4H PRN PO 08/11/17 16:45 09/10/17 16:44 08/13/17 02:47 650 MG Ondansetron HCl (Zofran Inj) 4 mg Q6H PRN IV 08/11/17 16:45 09/10/17 16:44 Polyethylene (Miralax Powder Packet) 17 gm DAILY PRN PO 08/11/17 16:45 09/10/17 16:44 Brinzolamide (Azopt) 1 drops BID OPB 08/11/17 21:30 09/10/17 21:29 08/14/17 08:47 1 DROPS Calcitriol (Rocaltrol Cap) 0.25 mcg DAILY PO 08/12/17 09:00 09/11/17 08:59 08/14/17 08:46 0.25 MCG Docusate Sodium (coLACE CAP) 100 mg BID PO 08/11/17 21:30 09/10/17 21:29 08/14/17 08:44 100 MG Donepezil HCl (Aricept Tab) 10 mg HS PO 08/11/17 21:30 09/10/17 21:29 08/13/17 20:41 10 MG Salmeterol Xinafoate/ Fluticasone (Advair Diskus 250/50 Inh) 1 puff BID INH 08/11/17 21:30 09/10/17 21:29 08/14/17 08:42 1 PUFF Fluticasone Propionate (Flonase Nasal [place]) 1 sprays BID PAULIE 08/11/17 21:30 09/10/17 21:29 08/14/17 08:43 1 SPRAYS Gabapentin (Neurontin Cap) 300 mg QDL PO 08/12/17 11:30 09/11/17 11:29 08/14/17 11:47 300 MG Gabapentin (Neurontin Cap) 600 mg AMHS PO 08/11/17 21:30 09/10/17 21:29 08/14/17 08:45 600 MG Hydralazine HCl (Apresoline Tab) 10 mg BID PO 08/11/17 21:30 09/10/17 21:29 08/14/17 08:44 10 MG Levothyroxine Sodium (Synthroid Tab) 75 mcg DAILYBB PO 08/12/17 06:00 09/11/17 05:59 08/14/17 06:09 75 MCG Loratadine (Claritin Tab) 10 mg DAILY PO 08/12/17 09:00 09/11/17 08:59 08/14/17 08:44 10 MG Nitroglycerin (Nitrostat Tab) 0.4 mg UD PRN SL 08/11/17 21:30 09/10/17 21:29 Oxybutynin Chloride (Ditropan-Xl Tab) 5 mg DAILY PO 08/12/17 09:00 09/11/17 08:59 08/14/17 08:44 5 MG Pantoprazole Sodium (Protonix Tab) 40 mg DAILY PO 08/12/17 09:00 09/11/17 08:59 08/14/17 08:44 40 MG Warfarin Sodium (Coumadin Tab) 5 mg DAILY@1600 PO 08/12/17 16:00 09/11/17 15:59 Future Hold Miscellaneous Information (Order Awaiting Action) 1 ea QS N/A 08/12/17 00:00 09/11/17 00:00 Albuterol (Ventolin Hfa Inhaler) 2 puffs Q6H PRN INH 08/11/17 21:30 09/10/17 21:29 Ferrous Sulfate (Feosol Tab) 325 mg BIDM PO 08/12/17 07:30 09/11/17 07:29 08/14/17 07:29 325 MG Pravastatin Sodium (Pravachol Tab) 80 mg HS PO 08/11/17 21:30 09/10/17 21:29 08/13/17 20:41 80 MG Albuterol Sulfate (Ventolin 0.083% 2.5MG/3ML Neb) 2.5 mg Q4H PRN INH 08/12/17 09:00 09/11/17 08:59 08/13/17 10:35 2.5 MG Ceftriaxone Sodium 1 gm/ Dextrose 50 ml @ 100 mls/hr Q24H IV 08/12/17 11:00 08/22/17 10:59 08/14/17 10:37 100 MLS/HR Warfarin Sodium (Coumadin Tab) 3 mg DAILY@16 PO 08/13/17 16:00 09/12/17 15:59 08/13/17 16:52 3 MG Ipratropium [place] (Atrovent 0.02% 0.5MG/2.5ML Neb) 0.5 mg Q4R PRN INH 08/13/17 11:00 09/12/17 10:59 Levalbuterol (Xopenex 1.25MG/ 0.5ML Neb) 1.25 mg Q4R PRN INH 08/13/17 11:00 09/12/17 10:59 Metoprolol Succinate (Toprol Xl Tab) 12.5 mg DAILY PO 08/15/17 09:00 09/11/17 08:59 Bumetanide (Bumex Tab) 1 mg QAM PO 08/15/17 09:00 09/14/17 08:59
[2017-08-14] MEDS: CLINDAMYCIN IV 600 MG in DEXTROSE 5% 50ML 50 ML IV SCH (16:24)
[2017-08-14] MEDS: WARFARIN SOD 3 MG TAB PO SCH (16:24)
[2017-08-14] MEDS: LACTOBACILLUS ACIDOPHILUS (FLORANEX) TAB PO SCH (17:01)
--- NOTE | 2017-08-14 17:47 | DIAGNOSTIC IMAGING REPORT ---
CHEST ONE VIEW PORTABLE CLINICAL HISTORY: Congestive failure COMPARISON STUDY: 08/13/2017 FINDINGS: The heart remains enlarged. There is persistent pronounced pulmonary artery dilatation. There is improving congestive failure. There is a small right pleural effusion. There are persistent right basilar airspace opacities. There are improving left basilar airspace opacities. IMPRESSION: 1. Cardiomegaly and improving congestive failure 2. Pronounced pulmonary artery dilatation 3. Small right pleural effusion 4. Persistent bibasal airspace opacities with slight improvement on the left Electronically signed by: Raman Padilla M.D. 08/14/2017 5:46 PM Dictated Date/Time: 08/14/2017 5:44 PM
--- NOTE | 2017-08-14 17:48 | PROGRESS NOTE ---
DATE: 08/14/2017 SUBJECTIVE: Lea was seen today. She is on her oxygen. Cardiology has taken charge of her case and there have been no further seizure-like episodes. Neurologic studies have shown no new cerebral events and the EEG is only mildly nonspecifically slow without any clear cut potentially epileptogenic activity. Again, I am very reluctant to commit this woman with anticonvulsants, based on the history and the current laboratory studies. We can certainly readdress this issue if she continues to have these spells and as noted in my last note, I think we would then be obligated to do a 72-hour ambulatory study to see if we can capture some events that would justify the use of anticonvulsants. For now, neurology is going to sign off the case unless of course or other developments and would be available to reassess her while she is in the hospital as needed.
[2017-08-14] MEDS: PRAVASTATIN SOD 40 MG TAB PO SCH (20:52)
[2017-08-14] MEDS: DONEPEZIL HCL 10 MG TAB PO SCH (20:53)
[2017-08-15] VITALS (10 sets, daily range): BP systolic 118–154; BP diastolic 50–80; PULSE 62–76; TEMP 36.5–37; O2SAT 90–94
[2017-08-15] MEDS: CLINDAMYCIN IV 600 MG in DEXTROSE 5% 50ML 50 ML IV SCH ×2 (00:12→08:04)
[2017-08-15] MEDS: ACETAMINOPHEN 325 MG TAB PO PRN (03:50)
[2017-08-15] MEDS: LEVOTHYROXINE 75 MCG TAB PO SCH (05:57)
[2017-08-15 06:15] LABS: BASO % 0.4 %; BASO ABS # 0.02 K/uL (0-0.2); COMPLETE YES; EOS % 3.4 %; HEMATOCRIT 33.3 % (37-47); LYMPH % 15.2 %; LYMPH ABS # 0.85 K/uL (1.2-3.4); MEAN CELL VOLUME 102.5 fL (80-100); MEAN CORPUSCULAR HEMOGLOBIN 31.4 pg (25-34); MEAN CORPUSCULAR HGB CONC 30.6 g/dl (32-36); MEAN PLATELET VOLUME 11.1 fL (7.4-10.4); MONO % 13.2 %; NEUT % 67.8 %; PLATELET COUNT 132 K/uL (130-400); RED BLOOD COUNT 3.25 M/uL (4.2-5.4); WHITE BLOOD COUNT 5.61 K/uL (4.8-10.8)
[2017-08-15 06:23] LABS: INR 2.2 (0.9-1.1); PROTHROMBIN TIME (PATIENT) 24.9 SECONDS (9.0-12.0)
[2017-08-15 06:42] LABS: BUN/CREATININE RATIO 25.2 (10-20); CALCIUM 8.9 mg/dl (8.5-10.1); CREATININE 1.8 mg/dl (0.60-1.20); POTASSIUM 4.2 mmol/L (3.5-5.1)
[2017-08-15] MEDS: INCRUSE ELLIPTA~ORDER AWAITING ACTION SCH ×4 (08:00→20:59)
[2017-08-15] MEDS: FERROUS SULFATE 325 MG TAB PO SCH ×2 (08:06→18:42)
[2017-08-15] MEDS: PANTOprazole SOD 40 MG TAB PO SCH (08:06)
[2017-08-15] MEDS: LORATADINE 10 MG TAB PO SCH (08:06)
[2017-08-15] MEDS: DOCUSATE SODIUM 100 MG CAP PO SCH ×2 (08:07→20:57)
[2017-08-15] MEDS: HydrALAZINE 10 MG TAB PO SCH ×2 (08:07→20:58)
[2017-08-15] MEDS: GABAPENTIN 300 MG CAP PO SCH ×3 (08:07→20:58)
[2017-08-15] MEDS: CALCITRIOL 0.25 MCG CAP PO SCH (08:07)
[2017-08-15] MEDS: OXYBUTYNIN CHLORIDE 5 MG TABCR PO SCH (08:08)
[2017-08-15] MEDS: LACTOBACILLUS ACIDOPHILUS (FLORANEX) TAB PO SCH ×3 (08:08→18:41)
[2017-08-15] MEDS: FLUTICASONE/SALMETEROL 250/50 (ADVAIR) 14 PUFF/1 INHALER INH SCH ×2 (08:09→20:57)
[2017-08-15] MEDS: BRINZOLAMIDE (AZOPT) OPS 10 ML BTL OPB SCH ×2 (08:09→20:57)
[2017-08-15] MEDS: FLUTICASONE PROPIONATE NA SPR 16 GM BTL NAE SCH ×2 (08:09→20:57)
[2017-08-15] MEDS ORDERED: BUMETANIDE 1 MG TAB PO SCH (09:00)
[2017-08-15] MEDS ORDERED: METOPROLOL SUCC 25MG EXT REL TAB PO SCH (09:00)
[2017-08-15] MEDS ORDERED: METOPROLOL SUCC 25MG EXT REL TAB PO STA (09:07)
--- NOTE | 2017-08-15 09:10 | Cardiology Follow-Up ---
Subjective General Date of Service: Aug 15, 2017. Pt evaluation today including: conversation w/ patient, physical exam, chart review, lab review, review of studies, review of inpatient medication list History of Present Illness The patient is a 71 year old female seen in follow-up. Patient notes mild discomfort of her bilateral feet and ankles. Erythema somewhat more prominent today. Oral diuretics restarted. Creatinine remained stable. Patient denies dyspnea at rest. No chest discomfort or palpitations. Telemetry demonstrates a 22 beat ranjan of nonsustained ventricular tachycardia , (rate 100-120BPM)occurring at [id number] yesterday. Patient is a poor historian, however, does not recall any lightheadedness, dizziness or palpitations associated with that episode. Per discussion with nursing there were no associated symptoms. Allergies Coded Allergies: Levofloxacin (Verified Allergy, Intermediate, HIVES, 01/25/17) Quinolones (Verified Allergy, Intermediate, HIVES, 01/25/17) Ranitidine (Verified Allergy, Intermediate, HIVES, 01/25/17) Sulfamethoxazole (Verified Allergy, Intermediate, HIVES, 01/25/17) Trimethoprim (Verified Allergy, Intermediate, HIVES, 01/25/17) Clarithromycin (Verified Allergy, Mild, HIVES, CAN TAKE ZITHROMAX W/O PROB , 01/25/17) Amoxicillin (Verified Allergy, Unknown, HIVES, 01/25/17) Omeprazole (Verified Allergy, Unknown, HAS HAD PROTONIX, 01/25/17) Social History Smoking Status: Former Smoker Hx Tobacco Use In Past Year?: No Hx Alcohol Use - Type And Amou: No Hx Substance Use - Type And Am: Yes Problem List Medical Problems: (1) Acute kidney injury Status: Acute (2) Atrial flutter Status: Acute (3) Back pain Status: Acute (4) Bilateral knee pain Status: Acute (5) CHF (congestive heart failure) Status: Acute (6) CHF exacerbation Status: Acute (7) Closed head injury Status: Acute (8) Concussion Status: Acute (9) COPD exacerbation Status: Acute (10) Fall Status: Acute (11) Hyperkalemia Status: Acute (12) Hypoxia Status: Acute (13) Lower extremity edema Status: Acute (14) Peripheral edema Status: Acute (15) Pneumonia Status: Acute (16) Pneumonia involving right lung Status: Acute (17) Sciatica Status: Acute (18) Seizure Status: Acute (19) Sepsis Status: Acute (20) Subtherapeutic international normalized ratio (INR) Status: Acute (21) Weakness Status: Acute Review of Systems Respiratory: + shortness of breath, + dyspnea on exertion, No cough, No wheezing, No dyspnea at rest Cardiac: + edema, No chest pain, No orthopnea, No PND, No claudication, No palpitations Physical Exam Vital Signs Last Vital Signs Documentation Date Time Temp Pulse Resp B/P (MAP) Pulse Ox O2 Delivery O2 Flow Rate FiO2 08/15/17 07:27 36.9 63 18 118/55 (76) 91 Oxymask 8.0 Physical Exam Constitutional: General Apperance: overweight Level of Distress: chronically ill Head: normocephalic Lungs: Auscultation: no rhonchi, expiratory wheezing Cardiovascular: Heart Auscultation: RRR, normal S1, normal S2, I/ WSM Peripheral Pulses: Radial Pulse: normal on the right Abdomen: Bowel Sounds: normal Inspection & Palpation: soft, non-distended, no tenderness, guarding & rebound Extremities: no cyanosis, edema (1+ pretibial edema with associated erythema.) Neurologic: Cranial Nerves: grossly intact Assessment and Plan Assessment and Plan FINAL IMPRESSION: 1. Acute on chronic diastolic and right-sided heart failure. - improving 2. Nonsustained ventricular tachycardia 3. Possible lower extremity cellulitis. 4. 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 5. Therapeutic INR. 6. Acute on chronic renal insufficiency -- creatinine stable 7. Severe oxygen dependent chronic obstructive pulmonary disease. PLAN AND RECOMMENDATIONS: Increase Toprol-XL cautiously to 25 mg daily. Change oral Bumex dosing to 1 mg alternating with 2 mg daily. I will request electrophysiology consultation during hospitalization. Continue to monitor telemetry. Repeat BMP in a.m. Antibiotics per IM. Appreciate neurology input. Will continue to follow during hospitalization. Laboratory Results Last 24 Hours Test 08/15/17 05:38 White Blood Count 5.61 K/uL Red Blood Count 3.25 M/uL Hemoglobin 10.2 g/dL Hematocrit 33.3 % Mean Corpuscular Volume 102.5 fL Mean Corpuscular Hemoglobin 31.4 pg Mean Corpuscular Hemoglobin Concent 30.6 g/dl Platelet Count 132 K/uL Mean Platelet Volume 11.1 fL Neutrophils (%) (Auto) 67.8 % Lymphocytes (%) (Auto) 15.2 % Monocytes (%) (Auto) 13.2 % Eosinophils (%) (Auto) 3.4 % Basophils (%) (Auto) 0.4 % Neutrophils # (Auto) 3.81 K/uL Lymphocytes # (Auto) 0.85 K/uL Monocytes # (Auto) 0.74 K/uL Eosinophils # (Auto) 0.19 K/uL Basophils # (Auto) 0.02 K/uL RDW Standard Deviation 57.0 fL RDW Coefficient of Variation 15.3 % Immature Granulocyte % (Auto) 0.0 % Immature Granulocyte # (Auto) 0.00 K/uL Prothrombin Time 24.9 SECONDS Prothromb Time International Ratio 2.2 Sodium Level 142 mmol/L Potassium Level 4.2 mmol/L Chloride Level 102 mmol/L Carbon Dioxide Level 36 mmol/L Anion Gap 4.0 mmol/L Blood Urea Nitrogen 45 mg/dl Creatinine 1.80 mg/dl Est Creatinine Clear Calc Drug Dose 24.4 ml/min Estimated GFR () 32.0 Estimated GFR (Non- 27.6 BUN/Creatinine Ratio 25.2 Random Glucose 85 mg/dl Calcium Level 8.9 mg/dl Magnesium Level 2.0 mg/dl
[2017-08-15] MEDS ORDERED: BUMETANIDE 1 MG TAB PO ONE (09:30)
[2017-08-15] MEDS: IPRATROPIUM BROMIDE NEB SOLN 0.02% 2.5 ML VIAL INH SCH ×3 (10:00→18:54)
[2017-08-15] MEDS: LEVALBUTEROL 0.63MG/3 ML NEB INH SCH ×3 (10:00→18:54)
[2017-08-15] MEDS ORDERED: LEVALBUTEROL/IPRATROPIUM NEB INH SCH (10:00)
--- NOTE | 2017-08-15 10:08 | Progress Note ---
Medicine Progress Note Date & Time of Visit: Aug 15, 2017 at 09:59. Subjective patient seen resting in bed, sleeping but easily rousable had NSVT yesterday, asymptomatic today, reports increased cough with yellow sputum denies shortness of breath, but is now on 8L via oxymask still has leg pain wrist pain is better today Objective Last 8 Hrs Date Time Temp Pulse Resp B/P (MAP) Pulse Ox O2 Delivery O2 Flow Rate FiO2 08/15/17 07:27 36.9 63 18 118/55 (76) 91 Oxymask 8.0 08/15/17 04:00 36.7 62 18 144/57 (86) 93 Oxymask 8.0 08/15/17 04:00 Oxymask 8.0 Physical Exam: General- oriented x 3, not in distress, speaks in sentences , no acc muscle use Eyes- anicteric Neck- no JVD Lungs- mild crackles and wheeze at bilateral bases Heart- regular rhythm; no murmur, normal rate Abdomen- normal bowel sounds, soft, nontender, Extremities- grade 1 lower leg edema, (+) moderate erythema and warmth bilaterally Neuro- alert, oriented x 3;no gross focal deficits Skin- warm & dry Laboratory Results: Last 24 Hours Test 08/15/17 05:38 White Blood Count 5.61 K/uL Red Blood Count 3.25 M/uL Hemoglobin 10.2 g/dL Hematocrit 33.3 % Mean Corpuscular Volume 102.5 fL Mean Corpuscular Hemoglobin 31.4 pg Mean Corpuscular Hemoglobin Concent 30.6 g/dl Platelet Count 132 K/uL Mean Platelet Volume 11.1 fL Neutrophils (%) (Auto) 67.8 % Lymphocytes (%) (Auto) 15.2 % Monocytes (%) (Auto) 13.2 % Eosinophils (%) (Auto) 3.4 % Basophils (%) (Auto) 0.4 % Neutrophils # (Auto) 3.81 K/uL Lymphocytes # (Auto) 0.85 K/uL Monocytes # (Auto) 0.74 K/uL Eosinophils # (Auto) 0.19 K/uL Basophils # (Auto) 0.02 K/uL RDW Standard Deviation 57.0 fL RDW Coefficient of Variation 15.3 % Immature Granulocyte % (Auto) 0.0 % Immature Granulocyte # (Auto) 0.00 K/uL Prothrombin Time 24.9 SECONDS Prothromb Time International Ratio 2.2 Sodium Level 142 mmol/L Potassium Level 4.2 mmol/L Chloride Level 102 mmol/L Carbon Dioxide Level 36 mmol/L Anion Gap 4.0 mmol/L Blood Urea Nitrogen 45 mg/dl Creatinine 1.80 mg/dl Est Creatinine Clear Calc Drug Dose 24.4 ml/min Estimated GFR () 32.0 Estimated GFR (Non- 27.6 BUN/Creatinine Ratio 25.2 Random Glucose 85 mg/dl Calcium Level 8.9 mg/dl Magnesium Level 2.0 mg/dl Assessment & Plan 71 yo F presents with acute bilateral leg swelling. Acute on Chronic Hypoxic Respiratory Failure secondary to: Acute diastolic and right sided heart failure exacerbation with preserved EF - Hx of pulmonary hypertension -- now requiring 8L via -- given IV Bumex -- PO Bumex resumed, 1mg and 2mg alternating daily crea stable -- Cardio input appreciated Possible Recurrence of Pneumonia COPD Exacerbation? -- (+) wheeze today -- was admitted 05/2017 for Pneumonia -- check CT chest may need to broaden antibiotic coverage and add steroids -- Nebs q6h started YAZMIN on CKD IV baseline cr 1.8 crea 2.2 --> 1.8 -- monitor while on diuretics Possible B/L Lower Extremity Cellulitis -- about the same -- changed Ceftri to Clindamycin IV Day 2 monitor Right Elbow and Wrist Pain -- Xray to r/o fracture: negative for fracture -- likely Sprain ice compress PRN, monitor -- improving Atrial fibrillation -currently in sinus rhythm, cont warfarin and metoprolol inr 3.8--> 2.2 -- continue coumadin Dementia-cont Aricept HTN -- On Toprol xl and hydralazine Anemia, - multifactorial 2/2 iron def 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 At baseline. Nephro following as outpatient. Hypothyroidism-tsh mildly elevated -- normal free t4 t3 low -- repeat as outpatient -- on Synthroid Constipation -- now with BMs DVT proph- on coumadin Full Code Dispo-Monitor in telemetry pt/ot social service for d/c planning Current Inpatient Medications: Current Inpatient Medications Medications (Trade) Dose Ordered Sig/Mehdi Route Start Time Stop Time Status Last Admin Dose Admin Acetaminophen (Tylenol Tab) 650 mg Q4H PRN PO 08/11/17 16:45 09/10/17 16:44 08/15/17 03:50 650 MG Ondansetron HCl (Zofran Inj) 4 mg Q6H PRN IV 08/11/17 16:45 09/10/17 16:44 Polyethylene (Miralax Powder Packet) 17 gm DAILY PRN PO 08/11/17 16:45 09/10/17 16:44 Brinzolamide (Azopt) 1 drops BID OPB 08/11/17 21:30 09/10/17 21:29 08/15/17 08:09 1 DROPS Calcitriol (Rocaltrol Cap) 0.25 mcg DAILY PO 08/12/17 09:00 09/11/17 08:59 08/15/17 08:07 0.25 MCG Docusate Sodium (coLACE CAP) 100 mg BID PO 08/11/17 21:30 09/10/17 21:29 08/15/17 08:07 100 MG Donepezil HCl (Aricept Tab) 10 mg HS PO 08/11/17 21:30 09/10/17 21:29 08/14/17 20:53 10 MG Salmeterol Xinafoate/ Fluticasone (Advair Diskus 250/50 Inh) 1 puff BID INH 08/11/17 21:30 09/10/17 21:29 08/15/17 08:09 1 PUFF Fluticasone Propionate (Flonase Nasal [place]) 1 sprays BID PAULIE 08/11/17 21:30 09/10/17 21:29 08/15/17 08:09 1 SPRAYS Gabapentin (Neurontin Cap) 300 mg QDL PO 08/12/17 11:30 09/11/17 11:29 08/14/17 11:47 300 MG Gabapentin (Neurontin Cap) 600 mg AMHS PO 08/11/17 21:30 09/10/17 21:29 08/15/17 08:07 600 MG Hydralazine HCl (Apresoline Tab) 10 mg BID PO 08/11/17 21:30 09/10/17 21:29 08/15/17 08:07 10 MG Levothyroxine Sodium (Synthroid Tab) 75 mcg DAILYBB PO 08/12/17 06:00 09/11/17 05:59 08/15/17 05:57 75 MCG Loratadine (Claritin Tab) 10 mg DAILY PO 08/12/17 09:00 09/11/17 08:59 08/15/17 08:06 10 MG Nitroglycerin (Nitrostat Tab) 0.4 mg UD PRN SL 08/11/17 21:30 09/10/17 21:29 Oxybutynin Chloride (Ditropan-Xl Tab) 5 mg DAILY PO 08/12/17 09:00 09/11/17 08:59 08/15/17 08:08 5 MG Pantoprazole Sodium (Protonix Tab) 40 mg DAILY PO 08/12/17 09:00 09/11/17 08:59 08/15/17 08:06 40 MG Warfarin Sodium (Coumadin Tab) 5 mg DAILY@1600 PO 08/12/17 16:00 09/11/17 15:59 Future Hold Miscellaneous Information (Order Awaiting Action) 1 ea QS N/A 08/12/17 00:00 09/11/17 00:00 Albuterol (Ventolin Hfa Inhaler) 2 puffs Q6H PRN INH 08/11/17 21:30 09/10/17 21:29 Ferrous Sulfate (Feosol Tab) 325 mg BIDM PO 08/12/17 07:30 09/11/17 07:29 08/15/17 08:06 325 MG Pravastatin Sodium (Pravachol Tab) 80 mg HS PO 08/11/17 21:30 09/10/17 21:29 08/14/17 20:52 80 MG Albuterol Sulfate (Ventolin 0.083% 2.5MG/3ML Neb) 2.5 mg Q4H PRN INH 08/12/17 09:00 09/11/17 08:59 08/13/17 10:35 2.5 MG Warfarin Sodium (Coumadin Tab) 3 mg DAILY@16 PO 08/13/17 16:00 09/12/17 15:59 08/14/17 16:24 3 MG Ipratropium [place] (Atrovent 0.02% 0.5MG/2.5ML Neb) 0.5 mg Q4R PRN INH 08/13/17 11:00 09/12/17 10:59 Levalbuterol (Xopenex 1.25MG/ 0.5ML Neb) 1.25 mg Q4R PRN INH 08/13/17 11:00 09/12/17 10:59 Miscellaneous Information (Pharmacy Consult) 1 ea UD N/A 08/14/17 14:50 09/13/17 14:49 Lactobacillus Acidophilus (Floranex Tab) 4 tab TIDM PO 08/14/17 16:45 09/13/17 16:44 08/15/17 08:08 4 TAB Clindamycin Phosphate 600 mg/ Dextrose 54 ml @ 108 mls/hr Q8H IV 08/14/17 16:00 08/24/17 15:59 08/15/17 08:04 108 MLS/HR Metoprolol Succinate (Toprol Xl Tab) 25 mg QAM PO 08/16/17 09:00 09/15/17 08:59 Bumetanide (Bumex Tab) 2 mg TuThSa@0900 PO 08/17/17 09:00 09/16/17 08:59 Bumetanide (Bumex Tab) 1 mg SuMoWeFr@0900 PO 08/16/17 09:00 09/15/17 08:59 Miscellaneous (Xopenex/ Atrovent Neb) 1 ea Q6R INH 08/15/17 10:00 09/14/17 09:59 UNV
--- NOTE | 2017-08-15 11:16 | DIAGNOSTIC IMAGING REPORT ---
(CHEST) THORAX WITHOUT CT DOSE: 512.52 mGy.cm HISTORY: Dyspnea hypoxia, possible pneumonia TECHNIQUE: Multiaxial CT images of the chest were performed without contrast. A dose lowering technique was utilized adhering to the principles of ALARA. COMPARISON: 01/09/2017 FINDINGS: Stable atherosclerotic change thoracic aorta. Moderate stable cardiomegaly. Distinct prominence of the pulmonary arterial vasculature consistent with pulmonary arterial hypertension. This is unchanged. Right basilar parenchymal infiltrate combined with a small right pleural effusion. Moderate consolidative change right lung base. Atelectatic and/or infiltrative changes left lung base. Mid and upper lung regions are clear bilaterally. IMPRESSION: 1. Parenchymal infiltrate combined with effusion and consolidative change right lung base. 2. Atelectasis and/or minimal infiltrate left lung base. 3. Pre-existing pulmonary arterial hypertension. 4. Moderate stable cardiomegaly. The above report was generated using voice recognition software. It may contain grammatical, syntax or spelling errors. Electronically signed by: Luis Fernando Keene M.D. 08/15/2017 11:14 AM Dictated Date/Time: 08/15/2017 11:09 AM
[2017-08-15] MEDS ORDERED: AZTREONAM CONSULT ACTIVE PRN ×2 (11:45)
[2017-08-15] MEDS ORDERED: AZTREONAM IV 1,000 MG in DEXTROSE 5% 100ML IV ONE (12:30)
[2017-08-15] MEDS ORDERED: AZTREONAM IV 2,000 MG in DEXTROSE 5% 100ML 100 ML IV ONE (12:30)
--- NOTE | 2017-08-15 15:48 | Cardiology Consultation ---
Cardiology Consultation Date of Consultation: Aug 15, 2017. Requesting Physician: Kirstin Reason for Consultation: VT Pt evaluation today including: conversation w/ patient, physical exam, chart review, lab review, review of studies, conversation w/ oracle database consultant, review of inpatient medication list History of Present Illness The patient is a 71-year-old woman with an extensive and complicated medical history who was recently admitted to [facility] for symptoms of progressive edema, breathing trouble and gait instability. She is known to have an element of cor pulmonale and there is some debate regarding medical compliance. In the past she has also had symptoms of dizziness, lightheadedness and even syncope. 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 Her hospitalization so far has involved an attempt at diuresis. She is also undergoing therapy for her severe COPD. On telemetry she was noted to have an extended run of nonsustained ventricular tachycardia. The episode occurred yesterday afternoon and was not associated with symptoms. Patient cannot recall any sense of palpitation. She reports some difficulty with breathing but improved since admission. He states that usually at home she does have dyspnea with exertion. She uses oxygen around the clock even when traveling. She states that she has some difficulty with sleeping which involves having her "days and nights mixed up". She does report occasional dizziness but has difficulty characterizing this further. She is aware of some occasional lower extremity edema. She has not report increasing abdominal girth. She reports having a caregiver that stays with her for the morning and helps manage her medications. She cannot recall her last episode of syncope. Past Medical/Surgical History PAST MEDICAL HISTORY: 1. Paroxysmal atrial fibrillation. 2. Chronic anemia. 3. Chronic kidney disease stage IV. 4. Bradycardia. 5. Nonsustained ventricular tachycardia. 6. COPD. 7. Nephrectomy. 8. Paroxysmal atrial flutter status post ablation July 2015 and 02/07/2016. 9. Chronic anticoagulation with Coumadin. 10. Tachybrady syndrome with pacemaker implantation in 2009, status post explantation due to bacteremia and possible vegetation. 11. Recurrent hyperkalemia. 12. Chronic right-sided heart failure. 13. Severe pulmonary hypertension on chronic oxygen therapy. 14. COPD. 15. Sleep apnea. 16. ASD with repair later in life. 17. Diastolic heart failure. 18. Dyslipidemia. 19. 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 20. JOSIAS. 21. Hypothyroidism. 21. Diabetes type 2. 22. Mild nonobstructive CAD by cardiac catheterization in 2007. 23. History of TIA. 24. Bleeding ulcers Past surgical history: 1. Cardiac catheterization. 2. Thyroidectomy. 3. Appendectomy. 4. Pacemaker implantation in 2009. 5. Pacemaker explanted 2010. 6. ASD repair 2007. 7. Colonoscopy. Family History Heart disease Hypertension Lung disease Noncontributory Social History Smoking Status: Former Smoker History of Alcohol Use: No Currently lives with her daughter, her daughter's fiance and her own fiancee Review of Systems Respiratory: + shortness of breath, + dyspnea on exertion, No cough, No wheezing, No dyspnea at rest Cardiac: + edema, No chest pain, No orthopnea, No PND, No claudication, No palpitations Patient had some difficulty recalling any additional symptoms. She does report some lower extremity edema. Mild discomfort in the legs bilaterally. All Other Systems: Reviewed and Negative Allergies Coded Allergies: Levofloxacin (Verified Allergy, Intermediate, HIVES, 01/25/17) Quinolones (Verified Allergy, Intermediate, HIVES, 01/25/17) Ranitidine (Verified Allergy, Intermediate, HIVES, 01/25/17) Sulfamethoxazole (Verified Allergy, Intermediate, HIVES, 01/25/17) Trimethoprim (Verified Allergy, Intermediate, HIVES, 01/25/17) Clarithromycin (Verified Allergy, Mild, HIVES, CAN TAKE ZITHROMAX W/O PROB , 01/25/17) Amoxicillin (Verified Allergy, Unknown, HIVES, 01/25/17) Omeprazole (Verified Allergy, Unknown, HAS HAD PROTONIX, 01/25/17) Medications Current Inpatient Medications Medications (Trade) Dose Ordered Sig/Mehdi Route Start Time Stop Time Status Last Admin Dose Admin Acetaminophen (Tylenol Tab) 650 mg Q4H PRN PO 08/11/17 16:45 09/10/17 16:44 08/15/17 03:50 650 MG Ondansetron HCl (Zofran Inj) 4 mg Q6H PRN IV 08/11/17 16:45 09/10/17 16:44 Polyethylene (Miralax Powder Packet) 17 gm DAILY PRN PO 08/11/17 16:45 09/10/17 16:44 Brinzolamide (Azopt) 1 drops BID OPB 08/11/17 21:30 09/10/17 21:29 08/15/17 08:09 1 DROPS Calcitriol (Rocaltrol Cap) 0.25 mcg DAILY PO 08/12/17 09:00 09/11/17 08:59 08/15/17 08:07 0.25 MCG Docusate Sodium (coLACE CAP) 100 mg BID PO 08/11/17 21:30 09/10/17 21:29 08/15/17 08:07 100 MG Donepezil HCl (Aricept Tab) 10 mg HS PO 08/11/17 21:30 09/10/17 21:29 08/14/17 20:53 10 MG Salmeterol Xinafoate/ Fluticasone (Advair Diskus 250/50 Inh) 1 puff BID INH 08/11/17 21:30 09/10/17 21:29 08/15/17 08:09 1 PUFF Fluticasone Propionate (Flonase Nasal [place]) 1 sprays BID PAULIE 08/11/17 21:30 09/10/17 21:29 08/15/17 08:09 1 SPRAYS Gabapentin (Neurontin Cap) 300 mg QDL PO 08/12/17 11:30 09/11/17 11:29 08/14/17 11:47 300 MG Gabapentin (Neurontin Cap) 600 mg AMHS PO 08/11/17 21:30 09/10/17 21:29 08/15/17 08:07 600 MG Hydralazine HCl (Apresoline Tab) 10 mg BID PO 08/11/17 21:30 09/10/17 21:29 08/15/17 08:07 10 MG Levothyroxine Sodium (Synthroid Tab) 75 mcg DAILYBB PO 08/12/17 06:00 09/11/17 05:59 08/15/17 05:57 75 MCG Loratadine (Claritin Tab) 10 mg DAILY PO 08/12/17 09:00 09/11/17 08:59 08/15/17 08:06 10 MG Nitroglycerin (Nitrostat Tab) 0.4 mg UD PRN SL 08/11/17 21:30 09/10/17 21:29 Oxybutynin Chloride (Ditropan-Xl Tab) 5 mg DAILY PO 08/12/17 09:00 09/11/17 08:59 08/15/17 08:08 5 MG Pantoprazole Sodium (Protonix Tab) 40 mg DAILY PO 08/12/17 09:00 09/11/17 08:59 08/15/17 08:06 40 MG Warfarin Sodium (Coumadin Tab) 5 mg DAILY@1600 PO 08/12/17 16:00 09/11/17 15:59 Future Hold Miscellaneous Information (Order Awaiting Action) 1 ea QS N/A 08/12/17 00:00 09/11/17 00:00 Albuterol (Ventolin Hfa Inhaler) 2 puffs Q6H PRN INH 08/11/17 21:30 09/10/17 21:29 Ferrous Sulfate (Feosol Tab) 325 mg BIDM PO 08/12/17 07:30 09/11/17 07:29 08/15/17 08:06 325 MG Pravastatin Sodium (Pravachol Tab) 80 mg HS PO 08/11/17 21:30 09/10/17 21:29 08/14/17 20:52 80 MG Albuterol Sulfate (Ventolin 0.083% 2.5MG/3ML Neb) 2.5 mg Q4H PRN INH 08/12/17 09:00 09/11/17 08:59 08/13/17 10:35 2.5 MG Warfarin Sodium (Coumadin Tab) 3 mg DAILY@16 PO 08/13/17 16:00 09/12/17 15:59 08/14/17 16:24 3 MG Ipratropium [place] (Atrovent 0.02% 0.5MG/2.5ML Neb) 0.5 mg Q4R PRN INH 08/13/17 11:00 09/12/17 10:59 Levalbuterol (Xopenex 1.25MG/ 0.5ML Neb) 1.25 mg Q4R PRN INH 08/13/17 11:00 09/12/17 10:59 Lactobacillus Acidophilus (Floranex Tab) 4 tab TIDM PO 08/14/17 16:45 09/13/17 16:44 08/15/17 08:08 4 TAB Metoprolol Succinate (Toprol Xl Tab) 25 mg QAM PO 08/16/17 09:00 09/15/17 08:59 Bumetanide (Bumex Tab) 2 mg TuThSa@0900 PO 08/17/17 09:00 09/16/17 08:59 Bumetanide (Bumex Tab) 1 mg SuMoWeFr@0900 PO 08/16/17 09:00 09/15/17 08:59 Ipratropium [place] (Atrovent 0.02% 0.5MG/2.5ML Neb) 0.5 mg Q6R INH 08/15/17 10:00 09/14/17 09:59 08/15/17 15:20 0.5 MG Levalbuterol (Xopenex 0.63 Mg/ 3 Ml Neb) 0.63 mg Q6R INH 08/15/17 10:00 09/14/17 09:59 08/15/17 15:20 0.63 MG Aztreonam (Consult) 1 ea UD PRN N/A 08/15/17 11:45 09/14/17 11:44 Doxycycline Hyclate (Vibramycin Cap) 100 mg BID PO 08/15/17 21:00 08/22/17 20:59 Aztreonam 1000 mg/ Dextrose 110 ml @ 110 mls/hr Q8H IV 08/15/17 20:00 08/22/17 19:59 Physical Exam Vital Signs Past 12 Hours Date Time Temp Pulse Resp B/P (MAP) Pulse Ox O2 Delivery O2 Flow Rate FiO2 08/15/17 15:21 67 18 90 Mask 8.0 08/15/17 15:04 36.9 66 20 154/67 (96) 94 Oxymask 8.0 08/15/17 11:22 36.5 64 20 145/50 (81) 93 Oxymask 8.0 08/15/17 08:00 94 Oxymask 8.0 08/15/17 07:27 36.9 63 18 118/55 (76) 91 Oxymask 8.0 08/15/17 04:00 36.7 62 18 144/57 (86) 93 Oxymask 8.0 08/15/17 04:00 Oxymask 8.0 Constitutional: General Apperance: overweight Level of Distress: chronically ill Lungs: Auscultation: no rhonchi, expiratory wheezing Cardiovascular: Heart Auscultation: RRR, normal S1, normal S2, I/ WSM Peripheral Pulses: Radial Pulse: normal on the right Abdomen: Bowel Sounds: normal Inspection & Palpation: soft, non-distended, no tenderness, guarding & rebound Extremities: no cyanosis, edema (1+ pretibial edema with associated erythema.) Neurologic: Cranial Nerves: grossly intact She is alert and oriented x3. Mood affect appear normal. She answered most questions appropriately, but occasionally there was some difficulty understanding her speech and she seemed tangential.. HEENT: Sclerae are anicteric. Pupils are equal and reactive to light and accommodation. Extraocular movements were intact. Neuro: Cranial nerves intact Neck: Examination of the submandibular region did not reveal any significant lymphadenopathy. Carotids are palpable bilaterally and free of bruits on auscultation. There was no evidence of jugular venous distention but her neck tissue is quite redundant. The thyroid was not enlarged. Lungs: Coarse upper airway sounds with reduced overall breath sounds. Poor excursion. Some expiratory wheezing was noted.. Cardiac: The rhythm was regular. S1 and S2 were normal. There are no murmurs on examination. The PMI was not markedly displaced on palpation. Abdomen: The abdomen was soft and nontender. Extremities: Patient has bilateral radial pulses that are equal in intensity. There is no evidence cyanosis or clubbing. She had mild peripheral edema in both lower extremities. There was an erythematous rash the distal aspect of both legs Data Laboratory Results: Last 24 Hours Test 08/15/17 05:38 White Blood Count 5.61 K/uL Red Blood Count 3.25 M/uL Hemoglobin 10.2 g/dL Hematocrit 33.3 % Mean Corpuscular Volume 102.5 fL Mean Corpuscular Hemoglobin 31.4 pg Mean Corpuscular Hemoglobin Concent 30.6 g/dl Platelet Count 132 K/uL Mean Platelet Volume 11.1 fL Neutrophils (%) (Auto) 67.8 % Lymphocytes (%) (Auto) 15.2 % Monocytes (%) (Auto) 13.2 % Eosinophils (%) (Auto) 3.4 % Basophils (%) (Auto) 0.4 % Neutrophils # (Auto) 3.81 K/uL Lymphocytes # (Auto) 0.85 K/uL Monocytes # (Auto) 0.74 K/uL Eosinophils # (Auto) 0.19 K/uL Basophils # (Auto) 0.02 K/uL RDW Standard Deviation 57.0 fL RDW Coefficient of Variation 15.3 % Immature Granulocyte % (Auto) 0.0 % Immature Granulocyte # (Auto) 0.00 K/uL Prothrombin Time 24.9 SECONDS Prothromb Time International Ratio 2.2 Sodium Level 142 mmol/L Potassium Level 4.2 mmol/L Chloride Level 102 mmol/L Carbon Dioxide Level 36 mmol/L Anion Gap 4.0 mmol/L Blood Urea Nitrogen 45 mg/dl Creatinine 1.80 mg/dl Est Creatinine Clear Calc Drug Dose 24.4 ml/min Estimated GFR () 32.0 Estimated GFR (Non- 27.6 BUN/Creatinine Ratio 25.2 Random Glucose 85 mg/dl Calcium Level 8.9 mg/dl Magnesium Level 2.0 mg/dl Imaging: I reviewed the source images of her recent echocardiogram demonstrating severe RV and RA enlargement. Reduced RV function and evidence of RV pressure and volume overload. LV systolic function was preserved EKG: Sinus rhythm Telemetry reviewed: 1 brief run of nonsustained ventricular tachycardia Assessment & Plan Ventricular tachycardia: The rhythm identified on telemetry is most consistent with ventricular tachycardia. There is certainly atrial activity present on the strips, but this is most likely retrograde activation. A competing diagnosis would be atrial flutter with aberrancy. However, there does appear to be some fusion or capture beats as well as very wide QRS more consistent with ventricular tachycardia. She did not have known symptoms during this time , but she was also in bed and relatively supine. Unclear whether she would have had some symptoms if she were upright. As the episode was nonsustained, did not produce symptoms and occurred in the presence of preserved LV function there is no indication for prophylactic ICD. With a history of syncope and nonsustained VT 1 could consider an EP study for attempted initiation of sustained VT. However, in the setting of preserved LV systolic function the predictive value of this study is unclear. I agree with attempts at increasing her beta blockade. In the past she has had an element of bradycardia and this will need to be monitored. There is no indication for antiarrhythmics currently. No indication for ICD at this point. No defined electrolyte abnormality which has contributed to this episode. It is very possible that this is mediated by her significant RV failure rather than a more traditional left ventricular source. Syncope: Patient does have a history of syncope. Monitoring to date has not correlated any symptoms with arrhythmia. Given her history of tachy-james syndrome, syncope and now nonsustained ventricular tachycardia would seem reasonable to provide her with more monitoring. I think implantation of a loop recorder would be of value both to correlate symptoms with arrhythmia and identify any episodes of bradycardia or occult atrial fibrillation.
[2017-08-15] MEDS: WARFARIN SOD 3 MG TAB PO SCH (18:42)
[2017-08-15] MEDS: AZTREONAM IV 1,000 MG in DEXTROSE 5% 100ML IV SCH (19:27)
[2017-08-15] MEDS: DOXYCYCLINE HYCLATE 100 MG CAP PO SCH (20:57)
[2017-08-15] MEDS: DONEPEZIL HCL 10 MG TAB PO SCH (20:57)
[2017-08-15] MEDS: PRAVASTATIN SOD 40 MG TAB PO SCH (20:59)
[2017-08-16] VITALS (11 sets, daily range): BP systolic 104–144; BP diastolic 51–69; PULSE 54–89; TEMP 36.8–37.4; O2SAT 90–95
[2017-08-16] MEDS: IPRATROPIUM BROMIDE NEB SOLN 0.02% 2.5 ML VIAL INH SCH ×3 (01:47→19:07)
[2017-08-16] MEDS: LEVALBUTEROL 0.63MG/3 ML NEB INH SCH ×3 (01:47→19:06)
[2017-08-16] MEDS: AZTREONAM IV 1,000 MG in DEXTROSE 5% 100ML IV SCH ×3 (03:45→20:30)
[2017-08-16] MEDS: LEVOTHYROXINE 75 MCG TAB PO SCH (05:34)
[2017-08-16 06:25] LABS: INR 2.5 (0.9-1.1); PROTHROMBIN TIME (PATIENT) 28.1 SECONDS (9.0-12.0)
[2017-08-16] MEDS: DOXYCYCLINE HYCLATE 100 MG CAP PO SCH ×2 (07:50→20:33)
[2017-08-16] MEDS: FERROUS SULFATE 325 MG TAB PO SCH ×2 (07:50→18:55)
[2017-08-16] MEDS: DOCUSATE SODIUM 100 MG CAP PO SCH ×2 (07:50→20:33)
[2017-08-16] MEDS: GABAPENTIN 300 MG CAP PO SCH ×3 (07:50→20:28)
[2017-08-16] MEDS: HydrALAZINE 10 MG TAB PO SCH ×2 (07:51→20:32)
[2017-08-16] MEDS: LACTOBACILLUS ACIDOPHILUS (FLORANEX) TAB PO SCH ×3 (07:51→18:55)
[2017-08-16] MEDS: CALCITRIOL 0.25 MCG CAP PO SCH (07:51)
[2017-08-16] MEDS: METOPROLOL SUCC 25MG EXT REL TAB PO SCH (07:51)
[2017-08-16] MEDS: PANTOprazole SOD 40 MG TAB PO SCH (07:51)
[2017-08-16] MEDS: OXYBUTYNIN CHLORIDE 5 MG TABCR PO SCH (07:51)
[2017-08-16] MEDS: LORATADINE 10 MG TAB PO SCH (07:51)
[2017-08-16] MEDS: FLUTICASONE/SALMETEROL 250/50 (ADVAIR) 14 PUFF/1 INHALER INH SCH ×2 (07:52→20:31)
[2017-08-16] MEDS: BRINZOLAMIDE (AZOPT) OPS 10 ML BTL OPB SCH ×2 (07:52→20:31)
[2017-08-16] MEDS: BUMETANIDE 1 MG TAB PO SCH (07:52)
[2017-08-16] MEDS: FLUTICASONE PROPIONATE NA SPR 16 GM BTL NAE SCH ×2 (07:52→20:31)
[2017-08-16] MEDS: INCRUSE ELLIPTA~ORDER AWAITING ACTION SCH ×3 (08:00→21:43)
--- NOTE | 2017-08-16 08:26 | Cardiology Follow-Up ---
Subjective General Date of Service: Aug 16, 2017. Pt evaluation today including: conversation w/ patient, conversation w/ family , physical exam, chart review, lab review, review of studies, review of inpatient medication list History of Present Illness The patient is a 71 year old female seen in follow-up. No recurrent ventricular tachycardia overnight. Denies chest pain or unusual shortness of breath. Lower extremity edema improved however remain mildly erythematous. Patient offers no new complaints this time. Tentatively scheduled for loop recorder implantation today. Allergies Coded Allergies: Levofloxacin (Verified Allergy, Intermediate, HIVES, 01/25/17) Quinolones (Verified Allergy, Intermediate, HIVES, 01/25/17) Ranitidine (Verified Allergy, Intermediate, HIVES, 01/25/17) Sulfamethoxazole (Verified Allergy, Intermediate, HIVES, 01/25/17) Trimethoprim (Verified Allergy, Intermediate, HIVES, 01/25/17) Clarithromycin (Verified Allergy, Mild, HIVES, CAN TAKE ZITHROMAX W/O PROB , 01/25/17) Amoxicillin (Verified Allergy, Unknown, HIVES, 01/25/17) Omeprazole (Verified Allergy, Unknown, HAS HAD PROTONIX, 01/25/17) Social History Smoking Status: Former Smoker Hx Tobacco Use In Past Year?: No Hx Alcohol Use - Type And Amou: No Hx Substance Use - Type And Am: Yes Problem List Medical Problems: (1) Acute kidney injury Status: Acute (2) Atrial flutter Status: Acute (3) Back pain Status: Acute (4) Bilateral knee pain Status: Acute (5) CHF (congestive heart failure) Status: Acute (6) CHF exacerbation Status: Acute (7) Closed head injury Status: Acute (8) Concussion Status: Acute (9) COPD exacerbation Status: Acute (10) Fall Status: Acute (11) Hyperkalemia Status: Acute (12) Hypoxia Status: Acute (13) Lower extremity edema Status: Acute (14) Peripheral edema Status: Acute (15) Pneumonia Status: Acute (16) Pneumonia involving right lung Status: Acute (17) Sciatica Status: Acute (18) Seizure Status: Acute (19) Sepsis Status: Acute (20) Subtherapeutic international normalized ratio (INR) Status: Acute (21) Weakness Status: Acute Review of Systems Respiratory: + dyspnea on exertion, No cough, No wheezing, No shortness of breath, No dyspnea at rest Cardiac: + edema, No chest pain, No orthopnea, No PND, No claudication, No palpitations Physical Exam Vital Signs Last Vital Signs Documentation Date Time Temp Pulse Resp B/P (MAP) Pulse Ox O2 Delivery O2 Flow Rate FiO2 08/16/17 08:09 37.0 55 21 130/57 (81) 93 Nasal Cannula 4.0 Physical Exam Constitutional: General Apperance: overweight Level of Distress: chronically ill Head: normocephalic Lungs: Auscultation: expiratory wheezing, rhonchi (scattered) Cardiovascular: Heart Auscultation: RRR, normal S1, normal S2, I/ WSM Peripheral Pulses: Radial Pulse: normal on the right Abdomen: Bowel Sounds: normal Inspection & Palpation: soft, non-distended, no tenderness, guarding & rebound Extremities: no cyanosis, edema (trace pretibial edema with associated erythema. +Tenderness to palpation) Neurologic: Cranial Nerves: grossly intact Assessment and Plan Assessment and Plan FINAL IMPRESSION: 1. 71-year-old female initially admitted with acute on chronic decompensated diastolic and right sided heart failure. Patient appears compensated today on oral diuretic therapy. 2. Nonsustained ventricular tachycardia -EP input appreciated -Scheduled for loop recorder implantation today 3. Lower extremity cellulitis. 4. 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 5. Therapeutic INR. 6. Acute on chronic renal insufficiency -- resolved, creatinine stable 7. Severe oxygen dependent chronic obstructive pulmonary disease. PLAN AND RECOMMENDATIONS: Continue Toprol-XL 25 mg daily. Continue oral Bumex, 1 mg alternating with 2 mg daily. Loop recorder implantation today. Antibiotics per IM. Appreciate neurology input. Will sign off. Please call with questions. Laboratory Results Last 24 Hours Test 08/16/17 05:19 Prothrombin Time 28.1 SECONDS Prothromb Time International Ratio 2.5
[2017-08-16] MEDS ORDERED: LIDOCAINE HCL 1% 20 ML VIAL ONE (09:01)
--- NOTE | 2017-08-16 09:43 | Procedure Note ---
Procedure Note Date of Service Aug 16, 2017. Procedure Note Procedure performed: Implantation of patient activated loop recorder Staff motor inspection mechanic: Lenin Harrison MD Indication: The patient is a 71-year-old woman with a prior history of tachy- james syndrome. She is also noted to have nonsustained ventricular tachycardia. She has suffered from episodes of seizure versus syncope in based on her history of arrhythmia was considered a good candidate for implantation of loop recorder. Procedure in detail: The patient was informed of the risks benefits alternatives to the intended procedure, she understood such which proceed. She was taken to the electrophysiology suite where the upper chest area was prepped and draped in usual sterile fashion. An area left lateral to the sternum in the 4th intercostal space was subsequently anesthetized using a lidocaine solution injected subcutaneously. A small incision was made at this site and insertion of the loop recorder was accomplished using a proprietary implantation kit. The resulting small incision was subsequently closed with a single 4 0 Vicryl suture followed by Steri-Strips and a sterile dressing. The device was tested noninvasively prior to conclusion of the procedure. The patient tolerated suture well. There were no immediate complications. Equipment used: Loop recorder: [employer]. Model number LNQ [id number] 1 serial number [id number] Impression: Successful implantation of patient activated loop recorder
[2017-08-16 10:58] LABS: BASO % 1.1 %; BASO ABS # 0.06 K/uL (0-0.2); COMPLETE YES; EOS % 4.1 %; HEMATOCRIT 31.9 % (37-47); IG% 0.2 %; LYMPH ABS # 0.79 K/uL (1.2-3.4); MEAN CELL VOLUME 103.6 fL (80-100); MEAN CORPUSCULAR HEMOGLOBIN 33.4 pg (25-34); MEAN CORPUSCULAR HGB CONC 32.3 g/dl (32-36); MEAN PLATELET VOLUME 12.3 fL (7.4-10.4); MONO % 14.2 %; NEUT % 66.4 %; PLATELET COUNT 152 K/uL (130-400); RED BLOOD COUNT 3.08 M/uL (4.2-5.4); WHITE BLOOD COUNT 5.64 K/uL (4.8-10.8)
--- NOTE | 2017-08-16 11:12 | Progress Note ---
Medicine Progress Note Date & Time of Visit: Aug 16, 2017 at 10:58. Subjective patient seen resting , sitting up, not in distress states she feels slightly better today breathing is ok, still has cough with yellow sputum, no chest pain still has some leg pain no other symptoms Objective Last 8 Hrs Date Time Temp Pulse Resp B/P (MAP) Pulse Ox O2 Delivery O2 Flow Rate FiO2 08/16/17 09:30 63 18 116/74 (88) 96 Mask 10 08/16/17 08:09 37.0 55 21 130/57 (81) 93 Nasal Cannula 4.0 08/16/17 08:00 94 Nasal Cannula 4.0 08/16/17 06:57 58 18 93 Nasal Cannula 5.0 08/16/17 04:00 Nasal Cannula 5.0 08/16/17 03:44 37.4 56 18 124/51 (75) 91 Nasal Cannula 5.0 Physical Exam: General- oriented x 3, not in distress, speaks in sentences , no acc muscle use Eyes- anicteric Neck- mild JVD Lungs- mild rales bilateral bases right>left Heart- regular rhythm; no murmur, normal rate Abdomen- normal bowel sounds, soft, nontender Extremities- grade 1 lower leg edema, (+) mild erythema and warmth bilaterally Neuro- alert, oriented x 3;no gross focal deficits Skin- warm & dry Laboratory Results: Last 24 Hours Test 08/16/17 05:19 08/16/17 05:26 Prothrombin Time 28.1 SECONDS Prothromb Time International Ratio 2.5 Assessment & Plan 71 yo F presents with acute bilateral leg swelling. Acute on Chronic Hypoxic Respiratory Failure secondary to: Acute diastolic and right sided heart failure exacerbation with preserved EF -- Hx of pulmonary hypertension --02 requirement down from 8 to 4 liters -- given IV Bumex -- PO Bumex resumed, 1mg and 2mg alternating daily crea pending -- Cardio input appreciated Possible Recurrence of Pneumonia, Right Lower Lobe COPD Exacerbation? -- was admitted 05/2017 for Pneumonia -- CT chest: (+) pneumonia, right lower lobe consolidation -- antibiotics broadened to Aztreonam and Doxycycline -- Nebs q6h started -- O2 requirement lower now, from 8 to 4 liters ff up sputum cultures YAZMIN on CKD IV baseline cr 1.8 crea 2.2 --> 1.8 -- monitor while on diuretics Possible B/L Lower Extremity Cellulitis -- about the same -- changed Ceftri to Clindamycin IV_> -- antibiotics broadened to Aztreonam and Doxycycline monitor Right Elbow and Wrist Pain -- Xray to r/o fracture: negative for fracture -- likely Sprain ice compress PRN, monitor -- improved Atrial fibrillation -currently in sinus rhythm, cont warfarin and metoprolol inr 3.8--> 2.4 -- continue coumadin Dementia-cont Aricept HTN -- On Toprol xl and hydralazine Anemia, - multifactorial 2/2 iron def 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 At baseline. Nephro following as outpatient. Hypothyroidism-tsh mildly elevated -- normal free t4 t3 low -- repeat as outpatient -- on Synthroid Constipation -- now with BMs DVT proph- on coumadin Full Code Dispo-Monitor in telemetry pt/ot social service for d/c planning Current Inpatient Medications: Current Inpatient Medications Medications (Trade) Dose Ordered Sig/Mehdi Route Start Time Stop Time Status Last Admin Dose Admin Acetaminophen (Tylenol Tab) 650 mg Q4H PRN PO 08/11/17 16:45 09/10/17 16:44 08/15/17 03:50 650 MG Ondansetron HCl (Zofran Inj) 4 mg Q6H PRN IV 08/11/17 16:45 09/10/17 16:44 Polyethylene (Miralax Powder Packet) 17 gm DAILY PRN PO 08/11/17 16:45 09/10/17 16:44 Brinzolamide (Azopt) 1 drops BID OPB 08/11/17 21:30 09/10/17 21:29 08/16/17 07:52 1 DROPS Calcitriol (Rocaltrol Cap) 0.25 mcg DAILY PO 08/12/17 09:00 09/11/17 08:59 08/16/17 07:51 0.25 MCG Docusate Sodium (coLACE CAP) 100 mg BID PO 08/11/17 21:30 09/10/17 21:29 08/16/17 07:50 100 MG Donepezil HCl (Aricept Tab) 10 mg HS PO 08/11/17 21:30 09/10/17 21:29 08/15/17 20:57 10 MG Salmeterol Xinafoate/ Fluticasone (Advair Diskus 250/50 Inh) 1 puff BID INH 08/11/17 21:30 09/10/17 21:29 08/16/17 07:52 1 PUFF Fluticasone Propionate (Flonase Nasal [place]) 1 sprays BID PAULIE 08/11/17 21:30 09/10/17 21:29 08/16/17 07:52 1 SPRAYS Gabapentin (Neurontin Cap) 300 mg QDL PO 08/12/17 11:30 09/11/17 11:29 08/14/17 11:47 300 MG Gabapentin (Neurontin Cap) 600 mg AMHS PO 08/11/17 21:30 09/10/17 21:29 08/16/17 07:50 600 MG Hydralazine HCl (Apresoline Tab) 10 mg BID PO 08/11/17 21:30 09/10/17 21:29 08/16/17 07:51 10 MG Levothyroxine Sodium (Synthroid Tab) 75 mcg DAILYBB PO 08/12/17 06:00 09/11/17 05:59 08/16/17 05:34 75 MCG Loratadine (Claritin Tab) 10 mg DAILY PO 08/12/17 09:00 09/11/17 08:59 08/16/17 07:51 10 MG Nitroglycerin (Nitrostat Tab) 0.4 mg UD PRN SL 08/11/17 21:30 09/10/17 21:29 Oxybutynin Chloride (Ditropan-Xl Tab) 5 mg DAILY PO 08/12/17 09:00 09/11/17 08:59 08/16/17 07:51 5 MG Pantoprazole Sodium (Protonix Tab) 40 mg DAILY PO 08/12/17 09:00 09/11/17 08:59 08/16/17 07:51 40 MG Warfarin Sodium (Coumadin Tab) 5 mg DAILY@1600 PO 08/12/17 16:00 09/11/17 15:59 Future Hold Miscellaneous Information (Order Awaiting Action) 1 ea QS N/A 08/12/17 00:00 09/11/17 00:00 Albuterol (Ventolin Hfa Inhaler) 2 puffs Q6H PRN INH 08/11/17 21:30 09/10/17 21:29 Ferrous Sulfate (Feosol Tab) 325 mg BIDM PO 08/12/17 07:30 09/11/17 07:29 08/16/17 07:50 325 MG Pravastatin Sodium (Pravachol Tab) 80 mg HS PO 08/11/17 21:30 09/10/17 21:29 08/15/17 20:59 80 MG Albuterol Sulfate (Ventolin 0.083% 2.5MG/3ML Neb) 2.5 mg Q4H PRN INH 08/12/17 09:00 09/11/17 08:59 08/13/17 10:35 2.5 MG Warfarin Sodium (Coumadin Tab) 3 mg DAILY@16 PO 08/13/17 16:00 09/12/17 15:59 08/15/17 18:42 3 MG Ipratropium [place] (Atrovent 0.02% 0.5MG/2.5ML Neb) 0.5 mg Q4R PRN INH 08/13/17 11:00 09/12/17 10:59 Levalbuterol (Xopenex 1.25MG/ 0.5ML Neb) 1.25 mg Q4R PRN INH 08/13/17 11:00 09/12/17 10:59 Lactobacillus Acidophilus (Floranex Tab) 4 tab TIDM PO 08/14/17 16:45 09/13/17 16:44 08/16/17 07:51 4 TAB Metoprolol Succinate (Toprol Xl Tab) 25 mg QAM PO 08/16/17 09:00 09/15/17 08:59 08/16/17 07:51 25 MG Bumetanide (Bumex Tab) 2 mg TuThSa@0900 PO 08/17/17 09:00 09/16/17 08:59 Bumetanide (Bumex Tab) 1 mg SuMoWeFr@0900 PO 08/16/17 09:00 09/15/17 08:59 08/16/17 07:52 1 MG Ipratropium [place] (Atrovent 0.02% 0.5MG/2.5ML Neb) 0.5 mg Q6R INH 08/15/17 10:00 09/14/17 09:59 08/16/17 06:57 0.5 MG Levalbuterol (Xopenex 0.63 Mg/ 3 Ml Neb) 0.63 mg Q6R INH 08/15/17 10:00 09/14/17 09:59 08/16/17 06:57 0.63 MG Aztreonam (Consult) 1 ea UD PRN N/A 08/15/17 11:45 09/14/17 11:44 Doxycycline Hyclate (Vibramycin Cap) 100 mg BID PO 08/15/17 21:00 08/22/17 20:59 08/16/17 07:50 100 MG Aztreonam 1000 mg/ Dextrose 110 ml @ 110 mls/hr Q8H IV 08/15/17 20:00 08/22/17 19:59 08/16/17 03:45 110 MLS/HR
[2017-08-16 11:13] LABS: BUN/CREATININE RATIO 24.6 (10-20); CALCIUM 9.2 mg/dl (8.5-10.1); CREATININE 1.8 mg/dl (0.60-1.20); POTASSIUM 4.4 mmol/L (3.5-5.1)
[2017-08-16] MEDS: WARFARIN SOD 3 MG TAB PO SCH (18:54)
[2017-08-16] MEDS: ACETAMINOPHEN 325 MG TAB PO PRN (20:31)
[2017-08-16] MEDS: PRAVASTATIN SOD 40 MG TAB PO SCH (20:32)
[2017-08-16] MEDS: DONEPEZIL HCL 10 MG TAB PO SCH (20:33)
[2017-08-17] VITALS (13 sets, daily range): BP systolic 121–146; BP diastolic 51–68; PULSE 50–74; TEMP 36.7–37; O2SAT 5–98
[2017-08-17] MEDS: LEVALBUTEROL 0.63MG/3 ML NEB INH SCH ×4 (01:57→19:09)
[2017-08-17] MEDS: IPRATROPIUM BROMIDE NEB SOLN 0.02% 2.5 ML VIAL INH SCH ×4 (01:57→19:09)
[2017-08-17] MEDS: AZTREONAM IV 1,000 MG in DEXTROSE 5% 100ML IV SCH ×3 (03:12→20:05)
[2017-08-17] MEDS: LEVOTHYROXINE 75 MCG TAB PO SCH (05:26)
[2017-08-17 05:54] LABS: BASO % 0.7 %; BASO ABS # 0.04 K/uL (0-0.2); COMPLETE YES; EOS % 3.5 %; HEMATOCRIT 33.9 % (37-47); IG% 0.2 %; LYMPH % 24.2 %; MEAN CELL VOLUME 100.9 fL (80-100); MEAN CORPUSCULAR HEMOGLOBIN 30.7 pg (25-34); MEAN CORPUSCULAR HGB CONC 30.4 g/dl (32-36); MEAN PLATELET VOLUME 11.2 fL (7.4-10.4); MONO % 12.5 %; NEUT % 58.9 %; PLATELET COUNT 147 K/uL (130-400); RED BLOOD COUNT 3.36 M/uL (4.2-5.4); WHITE BLOOD COUNT 5.38 K/uL (4.8-10.8)
[2017-08-17 06:27] LABS: BUN/CREATININE RATIO 29.3 (10-20); CREATININE 1.8 mg/dl (0.60-1.20); POTASSIUM 4.3 mmol/L (3.5-5.1)
[2017-08-17] MEDS: FLUTICASONE/SALMETEROL 250/50 (ADVAIR) 14 PUFF/1 INHALER INH SCH ×2 (08:35→20:00)
[2017-08-17] MEDS: FLUTICASONE PROPIONATE NA SPR 16 GM BTL NAE SCH ×2 (08:35→20:00)
[2017-08-17] MEDS: LACTOBACILLUS ACIDOPHILUS (FLORANEX) TAB PO SCH ×3 (08:36→16:46)
[2017-08-17] MEDS: GABAPENTIN 300 MG CAP PO SCH ×2 (08:36→12:33)
[2017-08-17] MEDS: METOPROLOL SUCC 25MG EXT REL TAB PO SCH (08:37)
[2017-08-17] MEDS: LORATADINE 10 MG TAB PO SCH (08:37)
[2017-08-17] MEDS: PANTOprazole SOD 40 MG TAB PO SCH (08:37)
[2017-08-17] MEDS: OXYBUTYNIN CHLORIDE 5 MG TABCR PO SCH (08:37)
[2017-08-17] MEDS: CALCITRIOL 0.25 MCG CAP PO SCH (08:38)
[2017-08-17] MEDS: DOCUSATE SODIUM 100 MG CAP PO SCH ×2 (08:38→20:00)
[2017-08-17] MEDS: FERROUS SULFATE 325 MG TAB PO SCH ×2 (08:38→16:45)
[2017-08-17] MEDS: DOXYCYCLINE HYCLATE 100 MG CAP PO SCH ×2 (08:38→20:01)
[2017-08-17] MEDS: HydrALAZINE 10 MG TAB PO SCH ×2 (08:38→20:01)
[2017-08-17] MEDS: BRINZOLAMIDE (AZOPT) OPS 10 ML BTL OPB SCH ×2 (08:39→20:00)
[2017-08-17] MEDS: BUMETANIDE 1 MG TAB PO SCH (08:40)
--- NOTE | 2017-08-17 11:01 | Cardiology Follow-Up ---
Subjective General Date of Service: Aug 17, 2017. Pt evaluation today including: conversation w/ patient, physical exam, chart review, lab review, review of studies, review of inpatient medication list History of Present Illness The patient is a 71 year old female seen in follow-up. No significant bradycardia or pauses overnight. No recurrent ventricular tachycardia. Cardiac loop monitor was implanted yesterday without complication. Patient offers no complaints this time. Allergies Coded Allergies: Levofloxacin (Verified Allergy, Intermediate, HIVES, 01/25/17) Quinolones (Verified Allergy, Intermediate, HIVES, 01/25/17) Ranitidine (Verified Allergy, Intermediate, HIVES, 01/25/17) Sulfamethoxazole (Verified Allergy, Intermediate, HIVES, 01/25/17) Trimethoprim (Verified Allergy, Intermediate, HIVES, 01/25/17) Clarithromycin (Verified Allergy, Mild, HIVES, CAN TAKE ZITHROMAX W/O PROB , 01/25/17) Amoxicillin (Verified Allergy, Unknown, HIVES, 01/25/17) Omeprazole (Verified Allergy, Unknown, HAS HAD PROTONIX, 01/25/17) Social History Smoking Status: Former Smoker Hx Tobacco Use In Past Year?: No Hx Alcohol Use - Type And Amou: No Hx Substance Use - Type And Am: Yes Problem List Medical Problems: (1) Acute kidney injury Status: Acute (2) Atrial flutter Status: Acute (3) Back pain Status: Acute (4) Bilateral knee pain Status: Acute (5) CHF (congestive heart failure) Status: Acute (6) CHF exacerbation Status: Acute (7) Closed head injury Status: Acute (8) Concussion Status: Acute (9) COPD exacerbation Status: Acute (10) Fall Status: Acute (11) Hyperkalemia Status: Acute (12) Hypoxia Status: Acute (13) Lower extremity edema Status: Acute (14) Peripheral edema Status: Acute (15) Pneumonia Status: Acute (16) Pneumonia involving right lung Status: Acute (17) Sciatica Status: Acute (18) Seizure Status: Acute (19) Sepsis Status: Acute (20) Subtherapeutic international normalized ratio (INR) Status: Acute (21) Weakness Status: Acute Review of Systems Respiratory: + wheezing, + dyspnea on exertion, No cough, No sputum, No shortness of breath, No dyspnea at rest, No hemoptysis Cardiac: + edema, No chest pain, No orthopnea, No PND, No claudication Physical Exam Vital Signs Last Vital Signs Documentation Date Time Temp Pulse Resp B/P (MAP) Pulse Ox O2 Delivery O2 Flow Rate FiO2 08/17/17 08:00 98 Nasal Cannula 3.0 08/17/17 07:53 36.8 57 16 146/68 (94) Physical Exam Constitutional: General Apperance: overweight Level of Distress: chronically ill Head: normocephalic Lungs: Auscultation: no rales/crackles, no rhonchi, expiratory wheezing Cardiovascular: Heart Auscultation: RRR, normal S1, normal S2, I/ WSM Peripheral Pulses: Radial Pulse: normal on the right Abdomen: Bowel Sounds: normal Inspection & Palpation: soft, non-distended, no tenderness, guarding & rebound Extremities: no cyanosis, edema (trace pretibial edema with associated erythema. ) Neurologic: Cranial Nerves: grossly intact Assessment and Plan Assessment and Plan FINAL IMPRESSION: 1. 71-year-old female initially admitted with acute on chronic decompensated diastolic and right sided heart failure. Patient appears compensated today on oral diuretic therapy. 2. Nonsustained ventricular tachycardia -EP input appreciated -S/p loop recorder implantation 08/16/2017 3. Lower extremity cellulitis. 4. 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 5. Therapeutic INR. 6. Acute on chronic renal insufficiency -- resolved, creatinine stable 7. Severe oxygen dependent chronic obstructive pulmonary disease. PLAN AND RECOMMENDATIONS: Outpatient Loop recorder follow up scheduled. Continue Toprol-XL 25 mg daily. Continue oral Bumex, 1 mg alternating with 2 mg daily. Antibiotics per IM. Appreciate neurology input. Laboratory Results Last 24 Hours Test 08/17/17 05:44 White Blood Count 5.38 K/uL Red Blood Count 3.36 M/uL Hemoglobin 10.3 g/dL Hematocrit 33.9 % Mean Corpuscular Volume 100.9 fL Mean Corpuscular Hemoglobin 30.7 pg Mean Corpuscular Hemoglobin Concent 30.4 g/dl Platelet Count 147 K/uL Mean Platelet Volume 11.2 fL Neutrophils (%) (Auto) 58.9 % Lymphocytes (%) (Auto) 24.2 % Monocytes (%) (Auto) 12.5 % Eosinophils (%) (Auto) 3.5 % Basophils (%) (Auto) 0.7 % Neutrophils # (Auto) 3.17 K/uL Lymphocytes # (Auto) 1.30 K/uL Monocytes # (Auto) 0.67 K/uL Eosinophils # (Auto) 0.19 K/uL Basophils # (Auto) 0.04 K/uL RDW Standard Deviation 56.1 fL RDW Coefficient of Variation 15.3 % Immature Granulocyte % (Auto) 0.2 % Immature Granulocyte # (Auto) 0.01 K/uL Sodium Level 142 mmol/L Potassium Level 4.3 mmol/L Chloride Level 103 mmol/L Carbon Dioxide Level 34 mmol/L Anion Gap 5.0 mmol/L Blood Urea Nitrogen 53 mg/dl Creatinine 1.80 mg/dl Est Creatinine Clear Calc Drug Dose 24.5 ml/min Estimated GFR () 32.0 Estimated GFR (Non- 27.6 BUN/Creatinine Ratio 29.3 Random Glucose 81 mg/dl Calcium Level 9.0 mg/dl
[2017-08-17] MEDS: WARFARIN SOD 3 MG TAB PO SCH (16:45)
[2017-08-17] MEDS: PRAVASTATIN SOD 40 MG TAB PO SCH (20:00)
[2017-08-17] MEDS: INCRUSE ELLIPTA~ORDER AWAITING ACTION SCH (20:05)
[2017-08-17] MEDS: DONEPEZIL HCL 10 MG TAB PO SCH (20:58)
[2017-08-18] VITALS (16 sets, daily range): BP systolic 15–154; BP diastolic 54–74; PULSE 59–70; TEMP 36.3–37.2; O2SAT 89–97
[2017-08-18] MEDS: LEVALBUTEROL 0.63MG/3 ML NEB INH SCH ×4 (02:10→19:03)
[2017-08-18] MEDS: IPRATROPIUM BROMIDE NEB SOLN 0.02% 2.5 ML VIAL INH SCH ×4 (02:10→19:02)
[2017-08-18] MEDS: AZTREONAM IV 1,000 MG in DEXTROSE 5% 100ML IV SCH ×3 (04:05→21:47)
[2017-08-18] MEDS: LEVOTHYROXINE 75 MCG TAB PO SCH (04:06)
[2017-08-18 06:19] LABS: BASO ABS # 0.05 K/uL (0-0.2); COMPLETE YES; EOS % 3.2 %; HEMATOCRIT 32.8 % (37-47); IG% 0.2 %; LYMPH % 22.6 %; LYMPH ABS # 1.13 K/uL (1.2-3.4); MEAN CELL VOLUME 100.9 fL (80-100); MEAN CORPUSCULAR HEMOGLOBIN 30.5 pg (25-34); MEAN CORPUSCULAR HGB CONC 30.2 g/dl (32-36); MEAN PLATELET VOLUME 11.7 fL (7.4-10.4); MONO % 10.8 %; NEUT % 62.2 %; PLATELET COUNT 159 K/uL (130-400); RED BLOOD COUNT 3.25 M/uL (4.2-5.4); WHITE BLOOD COUNT 5.01 K/uL (4.8-10.8)
[2017-08-18 06:51] LABS: BUN/CREATININE RATIO 33.5 (10-20); CALCIUM 9.1 mg/dl (8.5-10.1); CREATININE 1.8 mg/dl (0.60-1.20); POTASSIUM 4.3 mmol/L (3.5-5.1)
[2017-08-18] MEDS: FLUTICASONE PROPIONATE NA SPR 16 GM BTL NAE SCH ×2 (07:40→21:48)
[2017-08-18] MEDS: LACTOBACILLUS ACIDOPHILUS (FLORANEX) TAB PO SCH ×3 (07:40→16:06)
[2017-08-18] MEDS: CALCITRIOL 0.25 MCG CAP PO SCH (07:40)
[2017-08-18] MEDS: FLUTICASONE/SALMETEROL 250/50 (ADVAIR) 14 PUFF/1 INHALER INH SCH ×2 (07:40→21:48)
[2017-08-18] MEDS: HydrALAZINE 10 MG TAB PO SCH ×2 (07:41→21:50)
[2017-08-18] MEDS: FERROUS SULFATE 325 MG TAB PO SCH ×2 (07:41→16:05)
[2017-08-18] MEDS: OXYBUTYNIN CHLORIDE 5 MG TABCR PO SCH (07:41)
[2017-08-18] MEDS: METOPROLOL SUCC 25MG EXT REL TAB PO SCH (07:42)
[2017-08-18] MEDS: BUMETANIDE 1 MG TAB PO SCH (07:42)
[2017-08-18] MEDS: DOCUSATE SODIUM 100 MG CAP PO SCH ×2 (07:42→21:49)
[2017-08-18] MEDS: LORATADINE 10 MG TAB PO SCH (07:43)
[2017-08-18] MEDS: DOXYCYCLINE HYCLATE 100 MG CAP PO SCH ×2 (07:43→21:49)
[2017-08-18] MEDS: BRINZOLAMIDE (AZOPT) OPS 10 ML BTL OPB SCH ×2 (07:43→21:48)
[2017-08-18] MEDS: PANTOprazole SOD 40 MG TAB PO SCH (07:43)
[2017-08-18] MEDS: INCRUSE ELLIPTA~ORDER AWAITING ACTION SCH ×3 (08:00→21:50)
--- NOTE | 2017-08-18 09:23 | Progress Note ---
Medicine Progress Note Date & Time of Visit: Aug 18, 2017 at 09:20. delayed entry date of service 08/17/17 Subjective patient seen resting in bed, sleepy but easily rousable states she feels fine denies dyspnea; cough is getting less no chest pain, palpitations dizziness leg pain improving Objective Last 8 Hrs Date Time Temp Pulse Resp B/P (MAP) Pulse Ox O2 Delivery O2 Flow Rate FiO2 08/18/17 07:34 37.0 64 20 150/74 (99) 92 Oxymask 6.0 08/18/17 07:26 70 16 90 Mask 6.0 08/18/17 04:00 Oxymask 5.0 08/18/17 04:00 36.7 63 19 154/66 (95) 92 Mask 6.0 08/18/17 02:11 67 18 93 Mask 10.0 Physical Exam: General- oriented x 3, not in distress, speaks in sentences , no acc muscle use Eyes- anicteric Neck- mild JVD Lungs- clear breath sounds bilaterally Heart- regular rhythm; no murmur, normal rate Abdomen- normal bowel sounds, soft, nontender Extremities- grade 1 lower leg edema, (+) mild erythema and warmth bilaterally-- > improving Neuro- alert, oriented x 3;no gross focal deficits Skin- warm & dry Laboratory Results: Last 24 Hours Test 08/18/17 05:15 White Blood Count 5.01 K/uL Red Blood Count 3.25 M/uL Hemoglobin 9.9 g/dL Hematocrit 32.8 % Mean Corpuscular Volume 100.9 fL Mean Corpuscular Hemoglobin 30.5 pg Mean Corpuscular Hemoglobin Concent 30.2 g/dl Platelet Count 159 K/uL Mean Platelet Volume 11.7 fL Neutrophils (%) (Auto) 62.2 % Lymphocytes (%) (Auto) 22.6 % Monocytes (%) (Auto) 10.8 % Eosinophils (%) (Auto) 3.2 % Basophils (%) (Auto) 1.0 % Neutrophils # (Auto) 3.12 K/uL Lymphocytes # (Auto) 1.13 K/uL Monocytes # (Auto) 0.54 K/uL Eosinophils # (Auto) 0.16 K/uL Basophils # (Auto) 0.05 K/uL RDW Standard Deviation 55.3 fL RDW Coefficient of Variation 15.1 % Immature Granulocyte % (Auto) 0.2 % Immature Granulocyte # (Auto) 0.01 K/uL Sodium Level 140 mmol/L Potassium Level 4.3 mmol/L Chloride Level 100 mmol/L Carbon Dioxide Level 34 mmol/L Anion Gap 6.0 mmol/L Blood Urea Nitrogen 60 mg/dl Creatinine 1.80 mg/dl Est Creatinine Clear Calc Drug Dose 24.6 ml/min Estimated GFR () 32.0 Estimated GFR (Non- 27.6 BUN/Creatinine Ratio 33.5 Random Glucose 86 mg/dl Calcium Level 9.1 mg/dl Assessment & Plan 71 yo F presents with acute bilateral leg swelling. Acute on Chronic Hypoxic Respiratory Failure secondary to: Acute diastolic and right sided heart failure exacerbation with preserved EF -- Hx of pulmonary hypertension --02 requirement down from 8 to 4 liters -- given IV Bumex -- PO Bumex resumed, 1mg and 2mg alternating daily crea stable -- Cardio input appreciated Possible Recurrence of Pneumonia, Right Lower Lobe COPD Exacerbation? -- was admitted 05/2017 for Pneumonia -- CT chest: (+) pneumonia, right lower lobe consolidation -- antibiotics broadened to Aztreonam and Doxycycline -- Nebs q6h started -- O2 requirement lower now, from 8 to 4 liters ff up sputum cultures -- afebrile, still at 4-5 L oxymask will monitor YAZMIN on CKD IV baseline cr 1.8 crea 2.2 --> 1.8 -- monitor while on diuretics Possible B/L Lower Extremity Cellulitis -- about the same -- changed Ceftri to Clindamycin IV_> -- antibiotics broadened to Aztreonam and Doxycycline -- improving Right Elbow and Wrist Pain -- Xray to r/o fracture: negative for fracture -- likely Sprain ice compress PRN, monitor -- improved Atrial fibrillation -currently in sinus rhythm, cont warfarin and metoprolol inr 3.8--> 2.5 -- continue coumadin Dementia --cont Aricept HTN -- On Toprol xl and hydralazine Anemia, - multifactorial 2/2 iron def 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 At baseline. Nephro following as outpatient. Hypothyroidism-tsh mildly elevated -- normal free t4 t3 low -- repeat as outpatient -- on Synthroid Constipation -- now with BMs DVT proph- on coumadin Full Code Dispo-Monitor in telemetry pt/ot social service for d/c planning Current Inpatient Medications: Current Inpatient Medications Medications (Trade) Dose Ordered Sig/Mehdi Route Start Time Stop Time Status Last Admin Dose Admin Acetaminophen (Tylenol Tab) 650 mg Q4H PRN PO 08/11/17 16:45 09/10/17 16:44 08/16/17 20:31 650 MG Ondansetron HCl (Zofran Inj) 4 mg Q6H PRN IV 08/11/17 16:45 09/10/17 16:44 Polyethylene (Miralax Powder Packet) 17 gm DAILY PRN PO 08/11/17 16:45 09/10/17 16:44 Brinzolamide (Azopt) 1 drops BID OPB 08/11/17 21:30 09/10/17 21:29 08/18/17 07:43 1 DROPS Calcitriol (Rocaltrol Cap) 0.25 mcg DAILY PO 08/12/17 09:00 09/11/17 08:59 08/18/17 07:40 0.25 MCG Docusate Sodium (coLACE CAP) 100 mg BID PO 08/11/17 21:30 09/10/17 21:29 08/18/17 07:42 100 MG Donepezil HCl (Aricept Tab) 10 mg HS PO 08/11/17 21:30 09/10/17 21:29 08/17/17 20:58 10 MG Salmeterol Xinafoate/ Fluticasone (Advair Diskus 250/50 Inh) 1 puff BID INH 08/11/17 21:30 09/10/17 21:29 08/18/17 07:40 1 PUFF Fluticasone Propionate (Flonase Nasal [place]) 1 sprays BID PAULIE 08/11/17 21:30 09/10/17 21:29 08/18/17 07:40 1 SPRAYS Hydralazine HCl (Apresoline Tab) 10 mg BID PO 08/11/17 21:30 09/10/17 21:29 08/18/17 07:41 10 MG Levothyroxine Sodium (Synthroid Tab) 75 mcg DAILYBB PO 08/12/17 06:00 09/11/17 05:59 08/18/17 04:06 75 MCG Loratadine (Claritin Tab) 10 mg DAILY PO 08/12/17 09:00 09/11/17 08:59 08/18/17 07:43 10 MG Nitroglycerin (Nitrostat Tab) 0.4 mg UD PRN SL 08/11/17 21:30 09/10/17 21:29 Oxybutynin Chloride (Ditropan-Xl Tab) 5 mg DAILY PO 08/12/17 09:00 09/11/17 08:59 08/18/17 07:41 5 MG Pantoprazole Sodium (Protonix Tab) 40 mg DAILY PO 08/12/17 09:00 09/11/17 08:59 08/18/17 07:43 40 MG Warfarin Sodium (Coumadin Tab) 5 mg DAILY@1600 PO 08/12/17 16:00 09/11/17 15:59 Future Hold Miscellaneous Information (Order Awaiting Action) 1 ea QS N/A 08/12/17 00:00 09/11/17 00:00 Albuterol (Ventolin Hfa Inhaler) 2 puffs Q6H PRN INH 08/11/17 21:30 09/10/17 21:29 Ferrous Sulfate (Feosol Tab) 325 mg BIDM PO 08/12/17 07:30 09/11/17 07:29 08/18/17 07:41 325 MG Pravastatin Sodium (Pravachol Tab) 80 mg HS PO 08/11/17 21:30 09/10/17 21:29 08/17/17 20:00 80 MG Albuterol Sulfate (Ventolin 0.083% 2.5MG/3ML Neb) 2.5 mg Q4H PRN INH 08/12/17 09:00 09/11/17 08:59 08/13/17 10:35 2.5 MG Warfarin Sodium (Coumadin Tab) 3 mg DAILY@16 PO 08/13/17 16:00 09/12/17 15:59 08/17/17 16:45 3 MG Ipratropium [place] (Atrovent 0.02% 0.5MG/2.5ML Neb) 0.5 mg Q4R PRN INH 08/13/17 11:00 09/12/17 10:59 Levalbuterol (Xopenex 1.25MG/ 0.5ML Neb) 1.25 mg Q4R PRN INH 08/13/17 11:00 09/12/17 10:59 Lactobacillus Acidophilus (Floranex Tab) 4 tab TIDM PO 08/14/17 16:45 09/13/17 16:44 08/18/17 07:40 4 TAB Metoprolol Succinate (Toprol Xl Tab) 25 mg QAM PO 08/16/17 09:00 09/15/17 08:59 08/18/17 07:42 25 MG Bumetanide (Bumex Tab) 2 mg TuThSa@0900 PO 08/17/17 09:00 09/16/17 08:59 08/17/17 08:40 2 MG Bumetanide (Bumex Tab) 1 mg SuMoWeFr@0900 PO 08/16/17 09:00 09/15/17 08:59 08/18/17 07:42 1 MG Ipratropium [place] (Atrovent 0.02% 0.5MG/2.5ML Neb) 0.5 mg Q6R INH 08/15/17 10:00 09/14/17 09:59 08/18/17 07:25 0.5 MG Levalbuterol (Xopenex 0.63 Mg/ 3 Ml Neb) 0.63 mg Q6R INH 08/15/17 10:00 09/14/17 09:59 08/18/17 07:25 0.63 MG Aztreonam (Consult) 1 ea UD PRN N/A 08/15/17 11:45 09/14/17 11:44 Doxycycline Hyclate (Vibramycin Cap) 100 mg BID PO 08/15/17 21:00 08/22/17 20:59 08/18/17 07:43 100 MG Aztreonam 1000 mg/ Dextrose 110 ml @ 110 mls/hr Q8H IV 08/15/17 20:00 08/22/17 19:59 08/18/17 04:05 110 MLS/HR
[2017-08-18] MEDS: ONDANSETRON INJ 2 MG/ML 2 ML VIAL IV PRN (09:40)
--- NOTE | 2017-08-18 10:24 | DIAGNOSTIC IMAGING REPORT ---
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 Slight improvement in visibility right hemidiaphragm. Infiltrative process right base is therefore slightly improved. Findings of congestive failure similar. IMPRESSION: 1. Unchanging findings of congestive failure. 2. Improving right basilar infiltrate. The above report was generated using voice recognition software. It may contain grammatical, syntax or spelling errors. Electronically signed by: Luis Fernando Keene M.D. 08/18/2017 10:23 AM Dictated Date/Time: 08/18/2017 10:22 AM
--- NOTE | 2017-08-18 10:36 | Progress Note ---
Medicine Progress Note Date & Time of Visit: Aug 18, 2017 at 10:28. Subjective RN reports patient is fluctuating between 86-90% on 5-6 liters nasal cannula seen sitting in bedside chair, comfortable, on 5 L nasal cannula states breathing is ok, still has dry cough denies chest pain, palpitations, dizziness reports bilateral knee, leg, foot pain, worse with movement no fever/chills denies other symptoms Objective Last 8 Hrs Date Time Temp Pulse Resp B/P (MAP) Pulse Ox O2 Delivery O2 Flow Rate FiO2 08/18/17 08:00 Nasal Cannula 5.0 08/18/17 07:34 37.0 64 20 150/74 (99) 92 Oxymask 6.0 08/18/17 07:26 70 16 90 Mask 6.0 08/18/17 04:00 Oxymask 5.0 08/18/17 04:00 36.7 63 19 154/66 (95) 92 Mask 6.0 Physical Exam: General- oriented x 3, not in distress, speaks in sentences , no acc muscle use Eyes- anicteric Neck- mild JVD Lungs- (+) crackles right base>left base Heart- regular rhythm; no murmur, normal rate Abdomen- normal bowel sounds, soft, nontender Extremities- grade 1 lower leg edema, (+) mild erythema and warmth bilaterally-- > continues to improve Neuro- alert, oriented x 3;no gross focal deficits Skin- warm & dry Laboratory Results: Last 24 Hours Test 08/18/17 05:15 08/18/17 10:08 White Blood Count 5.01 K/uL Red Blood Count 3.25 M/uL Hemoglobin 9.9 g/dL Hematocrit 32.8 % Mean Corpuscular Volume 100.9 fL Mean Corpuscular Hemoglobin 30.5 pg Mean Corpuscular Hemoglobin Concent 30.2 g/dl Platelet Count 159 K/uL Mean Platelet Volume 11.7 fL Neutrophils (%) (Auto) 62.2 % Lymphocytes (%) (Auto) 22.6 % Monocytes (%) (Auto) 10.8 % Eosinophils (%) (Auto) 3.2 % Basophils (%) (Auto) 1.0 % Neutrophils # (Auto) 3.12 K/uL Lymphocytes # (Auto) 1.13 K/uL Monocytes # (Auto) 0.54 K/uL Eosinophils # (Auto) 0.16 K/uL Basophils # (Auto) 0.05 K/uL RDW Standard Deviation 55.3 fL RDW Coefficient of Variation 15.1 % Immature Granulocyte % (Auto) 0.2 % Immature Granulocyte # (Auto) 0.01 K/uL Sodium Level 140 mmol/L Potassium Level 4.3 mmol/L Chloride Level 100 mmol/L Carbon Dioxide Level 34 mmol/L Anion Gap 6.0 mmol/L Blood Urea Nitrogen 60 mg/dl Creatinine 1.80 mg/dl Est Creatinine Clear Calc Drug Dose 24.6 ml/min Estimated GFR () 32.0 Estimated GFR (Non- 27.6 BUN/Creatinine Ratio 33.5 Random Glucose 86 mg/dl Calcium Level 9.1 mg/dl Date/Time Source Procedure Growth Status 08/18/17 10:26 Sputum Expectorated Sputum Gram Stain Pending Latonia Batch 08/18/17 10:26 Sputum Expectorated Sputum Sputum Culture Pending Latonia Batch Assessment & Plan 71 yo F presents with acute bilateral leg swelling. 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 with preserved EF -- Hx of pulmonary hypertension --02 requirement down from 8 to 5 liters -- given IV Bumex -- PO Bumex resumed, 1mg and 2mg alternating daily diuresing adequately crea stable -- Cardio input appreciated Pneumonia, Right Lower Lobe Possible Mild COPD Exacerbation -- was admitted 05/2017 for Pneumonia -- CT chest: (+) pneumonia, right lower lobe consolidation -- antibiotics broadened to Aztreonam and Doxycycline Nebs q6h started O2 requirement lower now, from 8 to 5 liters ff up sputum cultures -- improving gradually since antibiotics broadened repeat CXR today will consult Pulmonary YAZMIN on CKD IV baseline cr 1.8 crea 2.2 --> 1.8 -- stable while on usual BUmex PO dosing -- monitor while on diuretics Possible B/L Lower Extremity Cellulitis -- changed Ceftri to Clindamycin IV> -- antibiotics broadened to Aztreonam and Doxycycline -- improving since antibiotics broadened monitor PT /OT Right Elbow and Wrist Pain -- Xray to r/o fracture: negative for fracture -- likely Sprain ice compress PRN, monitor -- improved Atrial fibrillation -currently in sinus rhythm, cont warfarin and metoprolol inr 3.8--> 2.5-- >pending -- continue coumadin Dementia --cont Aricept HTN -- On Toprol xl and hydralazine Anemia, - multifactorial 2/2 iron def 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 At baseline. Nephro following as outpatient. Hypothyroidism-tsh mildly elevated -- normal free t4 t3 low -- repeat as outpatient -- on Synthroid Constipation -- now with BMs Deconditioning - PT/OT DVT proph on coumadin Full Code Dispo-Monitor in telemetry pt/ot social service for d/c planning Current Inpatient Medications: Current Inpatient Medications Medications (Trade) Dose Ordered Sig/Mehdi Route Start Time Stop Time Status Last Admin Dose Admin Acetaminophen (Tylenol Tab) 650 mg Q4H PRN PO 08/11/17 16:45 09/10/17 16:44 08/16/17 20:31 650 MG Ondansetron HCl (Zofran Inj) 4 mg Q6H PRN IV 08/11/17 16:45 09/10/17 16:44 08/18/17 09:40 4 MG Polyethylene (Miralax Powder Packet) 17 gm DAILY PRN PO 08/11/17 16:45 09/10/17 16:44 Brinzolamide (Azopt) 1 drops BID OPB 08/11/17 21:30 09/10/17 21:29 08/18/17 07:43 1 DROPS Calcitriol (Rocaltrol Cap) 0.25 mcg DAILY PO 08/12/17 09:00 09/11/17 08:59 08/18/17 07:40 0.25 MCG Docusate Sodium (coLACE CAP) 100 mg BID PO 08/11/17 21:30 09/10/17 21:29 08/18/17 07:42 100 MG Donepezil HCl (Aricept Tab) 10 mg HS PO 08/11/17 21:30 09/10/17 21:29 08/17/17 20:58 10 MG Salmeterol Xinafoate/ Fluticasone (Advair Diskus 250/50 Inh) 1 puff BID INH 08/11/17 21:30 09/10/17 21:29 08/18/17 07:40 1 PUFF Fluticasone Propionate (Flonase Nasal [place]) 1 sprays BID PAULIE 08/11/17 21:30 09/10/17 21:29 08/18/17 07:40 1 SPRAYS Hydralazine HCl (Apresoline Tab) 10 mg BID PO 08/11/17 21:30 09/10/17 21:29 08/18/17 07:41 10 MG Levothyroxine Sodium (Synthroid Tab) 75 mcg DAILYBB PO 08/12/17 06:00 09/11/17 05:59 08/18/17 04:06 75 MCG Loratadine (Claritin Tab) 10 mg DAILY PO 08/12/17 09:00 09/11/17 08:59 08/18/17 07:43 10 MG Nitroglycerin (Nitrostat Tab) 0.4 mg UD PRN SL 08/11/17 21:30 09/10/17 21:29 Oxybutynin Chloride (Ditropan-Xl Tab) 5 mg DAILY PO 08/12/17 09:00 09/11/17 08:59 08/18/17 07:41 5 MG Pantoprazole Sodium (Protonix Tab) 40 mg DAILY PO 08/12/17 09:00 09/11/17 08:59 08/18/17 07:43 40 MG Warfarin Sodium (Coumadin Tab) 5 mg DAILY@1600 PO 08/12/17 16:00 09/11/17 15:59 Future Hold Miscellaneous Information (Order Awaiting Action) 1 ea QS N/A 08/12/17 00:00 09/11/17 00:00 Albuterol (Ventolin Hfa Inhaler) 2 puffs Q6H PRN INH 08/11/17 21:30 09/10/17 21:29 Ferrous Sulfate (Feosol Tab) 325 mg BIDM PO 08/12/17 07:30 09/11/17 07:29 08/18/17 07:41 325 MG Pravastatin Sodium (Pravachol Tab) 80 mg HS PO 08/11/17 21:30 09/10/17 21:29 08/17/17 20:00 80 MG Albuterol Sulfate (Ventolin 0.083% 2.5MG/3ML Neb) 2.5 mg Q4H PRN INH 08/12/17 09:00 09/11/17 08:59 08/13/17 10:35 2.5 MG Warfarin Sodium (Coumadin Tab) 3 mg DAILY@16 PO 08/13/17 16:00 09/12/17 15:59 08/17/17 16:45 3 MG Ipratropium [place] (Atrovent 0.02% 0.5MG/2.5ML Neb) 0.5 mg Q4R PRN INH 08/13/17 11:00 09/12/17 10:59 Levalbuterol (Xopenex 1.25MG/ 0.5ML Neb) 1.25 mg Q4R PRN INH 08/13/17 11:00 09/12/17 10:59 Lactobacillus Acidophilus (Floranex Tab) 4 tab TIDM PO 08/14/17 16:45 09/13/17 16:44 08/18/17 07:40 4 TAB Metoprolol Succinate (Toprol Xl Tab) 25 mg QAM PO 08/16/17 09:00 09/15/17 08:59 08/18/17 07:42 25 MG Bumetanide (Bumex Tab) 2 mg TuThSa@0900 PO 08/17/17 09:00 09/16/17 08:59 08/17/17 08:40 2 MG Bumetanide (Bumex Tab) 1 mg SuMoWeFr@0900 PO 08/16/17 09:00 09/15/17 08:59 08/18/17 07:42 1 MG Ipratropium [place] (Atrovent 0.02% 0.5MG/2.5ML Neb) 0.5 mg Q6R INH 08/15/17 10:00 09/14/17 09:59 08/18/17 07:25 0.5 MG Levalbuterol (Xopenex 0.63 Mg/ 3 Ml Neb) 0.63 mg Q6R INH 08/15/17 10:00 09/14/17 09:59 08/18/17 07:25 0.63 MG Aztreonam (Consult) 1 ea UD PRN N/A 08/15/17 11:45 09/14/17 11:44 Doxycycline Hyclate (Vibramycin Cap) 100 mg BID PO 08/15/17 21:00 08/22/17 20:59 08/18/17 07:43 100 MG Aztreonam 1000 mg/ Dextrose 110 ml @ 110 mls/hr Q8H IV 08/15/17 20:00 08/22/17 19:59 08/18/17 04:05 110 MLS/HR
[2017-08-18 10:54] LABS: PROTHROMBIN TIME (PATIENT) 22.1 SECONDS (9.0-12.0)
[2017-08-18] MEDS: TRAMADOL HCL 50 MG TAB PO PRN (11:27)
[2017-08-18 15:27] LABS: ARTERIAL BLD GAS O2 SATURATION 89.4 % (90-95); ARTERIAL BLOOD GAS BASE EXCESS 6.7 mEq/L (-9-1.8); ARTERIAL BLOOD GAS HCO3 35 mmol/L (19-24); ARTERIAL BLOOD GAS PO2 66 mm/Hg (80-95)
[2017-08-18 15:28] LABS: ALLEN TEST POS (POS); O2 ADMINISTRATION 3 LITERS
[2017-08-18] MEDS: WARFARIN SOD 3 MG TAB PO SCH (16:07)
--- NOTE | 2017-08-18 19:53 | PULMONARY CONSULTATION ---
DATE OF CONSULTATION: 08/18/2017 TIME: 2:30 p.m. HISTORY OF PRESENT ILLNESS AND REPORT OF CONSULTATION: The patient was seen in room 201. She is a 71-year-old female who has been in the hospital since August 11. The patient herself is a very poor historian. She was somewhat difficult to arouse. She came in reportedly with worsening of her leg swelling. She had been hospitalized earlier this summer in May for pneumonia. The patient reportedly had cold symptoms for about a week before coming to the hospital. She yesterday was hard to arouse according to nursing staff. She is a little more awake today. She also complains of feeling very cold. She had been requiring higher concentration of oxygen, although currently she is back down to 3 liter nasal cannula. She apparently sleeps a lot during the day. She has been expectorating some phlegm. She states that the mucus is yellow. She did have a sputum culture done, but this shows many WBCs, but no organisms. Cardiology department has been seeing the patient. She had a loop recorder inserted on August [address] Harrison. The patient did have some documented cardiac arrhythmias. Reportedly, she had some nonsustained ventricular tachycardia. She carries a history of tachybrady syndrome. The patient had been hospitalized in December of this year for 8 days. At that time, she had respiratory failure. The patient reportedly had had sleep apnea in the past, but she did not like CPAP or BiPAP or whatever was provided for and she never used it very much. 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 She is known to have pulmonary hypertension. She had an echo done that shows dilation of the right ventricle with decreased right ventricular function and there was moderate to severe mitral regurg. PAST SURGICAL HISTORY: 1. Right nephrectomy for benign disease. 2. Pacemaker, which was subsequently removed. 3. Thyroid surgery. 4. Appendectomy. 5. Mitral valve repair. 6. Ablation x2 of atrial flutter. 7. Questionable ASD repair. PAST MEDICAL HISTORY: 1. Seizure disorder. 2. AFib. 3. Anemia. 4. Chronic kidney disease. 5. Atrial septal defect. 6. COPD. 7. Reflux. 8. Hyperlipidemia. 9. Hypertension. 10. Hypothyroidism. 11. History of MRSA 12. Right-sided CHF. 13. Tachybrady syndrome. 14. Sleep apnea. 15. Peptic ulcer disease. 16. TIA. 17. Pulmonary hypertension as noted. SOCIAL HISTORY: Tobacco 1 pack per day for 30 years but none since 2004. ALLERGIES: LISTED ALLERGIES TO LEVAQUIN, RANITIDINE, SULFA, CLARITHROMYCIN, AMOXICILLIN, AND OMEPRAZOLE. FAMILY HISTORY: Positive for heart disease, hypertension, and lung problems. MEDICATIONS AT HOME: 1. Nebs with albuterol p.r.n. 2. ProAir p.r.n. 3. Brinzolamide ophthalmic solution. 4. Bumetanide 2 mg three times per week and 1 mg four times per week. 4. Calcitriol 0.25 mg daily. 5. Docusate b.i.d. 6. Aricept 10 mg at bedtime. 7. Ferrous sulfate 325 b.i.d. 8. Advair 250/50 one puff b.i.d. 9. Flonase b.i.d. 10. Gabapentin 300 mg during the day and 600 at bedtime. 11. O2 three liters. 12. Hydralazine 10 mg b.i.d. 13. Levothyroxine 75 mcg daily. 14. Claritin 10 mg daily. 15. Metoprolol 12.5 mg daily. 16. Nitro p.r.n. 17. Oxybutynin 5 mg daily. 18. Pantoprazole 40 mg daily. 19. Pravastatin 80 mg daily. 20. Incruse Ellipta 1 puff daily. 21. Warfarin 5 mg daily. REVIEW OF SYSTEMS: Difficult to obtain from the patient. It is as noted above, but with limitations. PHYSICAL EXAMINATION: GENERAL: The patient is a 71-year-old female who was sleeping heavily when I came in. She awakened with shaking her a little and talking to her. She did seem to orient when she was awake. She did not appear in distress, although she was lethargic. VITAL SIGNS: Temperature is 36.3. Her highest temperature since admission is 37.4. HEENT: Pupils did reactive. Nasal cannula is in place. MOUTH: Exam is narrow. She has crowding in the pharynx. NECK: Palpation of the neck reveals no lymph nodes. The neck veins are markedly distended even with the patient partially upright. HEART: The heart rate is 65 per minute. It was regular. Blood pressure most recently is 135/58. LUNGS: The chest show diminished excursions. Lung nayak revealed diminished breath sounds. She does have rales in both lower lung nayak posteriorly. Respiratory rate was 20 breaths per minute. Saturation was 91% on 3 liters when I was in her room. ABDOMEN: Somewhat obese. Her BMI is 32.4. Bowel sounds were present. She did complain of nausea. Nursing had given her something earlier in the day. She states she did eat breakfast. No definite mass was palpable. She has a Watson in place. EXTREMITIES: Wrapped with a compression device. Taking that into account it still seemed that she had some edema of both lower extremities. There was no cyanosis or clubbing. IMAGING DATA: The patient has had serial chest x-rays since admission. On the , she had chronic findings with pulmonary artery enlargement and probable hypertension of the pulmonary arteries. Cardiomegaly was noted. No definite acute infiltrate was seen. On the , the x-ray showed what appeared to be bilateral airspace opacities. There was some asymmetry with the right being greater than the left. X-ray on the reported persistent basal airspace opacities with slight improvement on the left. Venous Doppler was done on the and was negative. CAT scan of the chest was done on the . This showed a right lower lobe infiltrate with an associated effusion. There was some atelectasis at the left lung base. Apparent pulmonary hypertension again noted. Chest x-ray done today showed some improvement in the right basilar infiltrate. CHF was still suggested. LABORATORY DATA: CBC today showed a white count of 5.01. Hemoglobin is 9.9. Platelets 159,000. INR today is 2.0. Blood gas was done on the and showed a pH of 7.34 with a pCO2 of 64 and a pO2 of 94 done on 15 liters. Electrolytes show sodium 140, potassium 4.3, chloride 100, bicarb 34. BUN was 60 with a creatinine of 1.8. IMPRESSION: 1. Acute on chronic respiratory failure with hypoxia and hypercarbia. 2. Right lower lobe pneumonia. 3. Right pleural effusion. 4. Pulmonary hypertension. 5. Chronic obstructive pulmonary disease. 6. Obstructive sleep apnea - intolerant to CPAP. COMMENTS AND RECOMMENDATIONS: The patient was extremely lethargic yesterday per nursing. She is still lethargic. Her pCO2 level 5 days ago was 64. I am going to recheck an ABG. She is on doxycycline and aztreonam. Apparently, these were chosen based upon the numerous allergies that are listed for various antibiotics. She is getting neb treatments every 6 hours with levalbuterol and ipratropium. If the ABG shows significant CO2 retention and particularly if she is acidotic, we would need to try BiPAP if the patient would cooperate with that. She has not done well with that in the past; however. The patient apparently is accepted for [facility]. I do not think I would sent her just yet. I believe they would send her right back if that were the case. She complains of severe chills and cannot get warm. This could be related to an ongoing infection. Ultimately, we might need to hold her antibiotics and do blood cultures. The patient is a definite challenge based upon her multiple disease problems and her relative intolerance to treatment. Thank you for asking me to assist in her care. Dr. Watson will see the patient as of tomorrow. JUHI
[2017-08-18] MEDS: PRAVASTATIN SOD 40 MG TAB PO SCH (21:49)
[2017-08-18] MEDS: DONEPEZIL HCL 10 MG TAB PO SCH (21:49)
[2017-08-18] MEDS: IPRATROPIUM BROMIDE NEB SOLN 0.02% 2.5 ML VIAL INH PRN (23:05)
[2017-08-18] MEDS: LEVALBUTEROL 1.25MG/0.5ML NEB INH PRN (23:06)
[2017-08-19] VITALS (15 sets, daily range): BP systolic 111–134; BP diastolic 42–71; PULSE 52–68; TEMP 36.6–37; O2SAT 89–98
[2017-08-19] MEDS: IPRATROPIUM BROMIDE NEB SOLN 0.02% 2.5 ML VIAL INH SCH ×4 (02:25→18:50)
[2017-08-19] MEDS: LEVALBUTEROL 0.63MG/3 ML NEB INH SCH ×4 (02:25→18:50)
[2017-08-19] MEDS: AZTREONAM IV 1,000 MG in DEXTROSE 5% 100ML IV SCH ×3 (03:25→20:10)
[2017-08-19] MEDS: LEVOTHYROXINE 75 MCG TAB PO SCH (03:55)
[2017-08-19 05:57] LABS: BASO % 0.5 %; BASO ABS # 0.03 K/uL (0-0.2); COMPLETE YES; EOS % 3.4 %; HEMATOCRIT 31.8 % (37-47); LYMPH % 22.3 %; LYMPH ABS # 1.24 K/uL (1.2-3.4); MEAN CORPUSCULAR HEMOGLOBIN 31.7 pg (25-34); MEAN CORPUSCULAR HGB CONC 31.4 g/dl (32-36); MEAN PLATELET VOLUME 11.3 fL (7.4-10.4); MONO % 12.4 %; NEUT % 61.4 %; PLATELET COUNT 158 K/uL (130-400); RED BLOOD COUNT 3.15 M/uL (4.2-5.4); WHITE BLOOD COUNT 5.56 K/uL (4.8-10.8)
[2017-08-19 06:30] LABS: BUN/CREATININE RATIO 39.5 (10-20); CALCIUM 9.2 mg/dl (8.5-10.1); CREATININE 1.7 mg/dl (0.60-1.20); POTASSIUM 4.7 mmol/L (3.5-5.1)
[2017-08-19] MEDS: HydrALAZINE 10 MG TAB PO SCH ×2 (07:23→20:13)
[2017-08-19] MEDS: FERROUS SULFATE 325 MG TAB PO SCH ×2 (07:23→16:51)
[2017-08-19] MEDS: LORATADINE 10 MG TAB PO SCH (07:23)
[2017-08-19] MEDS: METOPROLOL SUCC 25MG EXT REL TAB PO SCH (07:24)
[2017-08-19] MEDS: BUMETANIDE 1 MG TAB PO SCH (07:24)
[2017-08-19] MEDS: CALCITRIOL 0.25 MCG CAP PO SCH (07:24)
[2017-08-19] MEDS: DOCUSATE SODIUM 100 MG CAP PO SCH ×2 (07:24→20:12)
[2017-08-19] MEDS: FLUTICASONE/SALMETEROL 250/50 (ADVAIR) 14 PUFF/1 INHALER INH SCH ×2 (07:25→20:10)
[2017-08-19] MEDS: OXYBUTYNIN CHLORIDE 5 MG TABCR PO SCH (07:25)
[2017-08-19] MEDS: DOXYCYCLINE HYCLATE 100 MG CAP PO SCH ×2 (07:26→20:10)
[2017-08-19] MEDS: BRINZOLAMIDE (AZOPT) OPS 10 ML BTL OPB SCH ×2 (07:26→20:10)
[2017-08-19] MEDS: PANTOprazole SOD 40 MG TAB PO SCH (07:26)
[2017-08-19] MEDS: FLUTICASONE PROPIONATE NA SPR 16 GM BTL NAE SCH ×2 (07:26→20:10)
[2017-08-19] MEDS: LACTOBACILLUS ACIDOPHILUS (FLORANEX) TAB PO SCH ×3 (07:27→16:52)
[2017-08-19] MEDS: INCRUSE ELLIPTA~ORDER AWAITING ACTION SCH ×2 (07:27→16:00)
[2017-08-19] MEDS: TRAMADOL HCL 50 MG TAB PO PRN ×2 (08:37→16:50)
[2017-08-19 09:33] LABS: INR 1.8 (0.9-1.1); PROTHROMBIN TIME (PATIENT) 20.3 SECONDS (9.0-12.0)
[2017-08-19] MEDS: ONDANSETRON INJ 2 MG/ML 2 ML VIAL IV PRN ×2 (10:40→16:50)
--- NOTE | 2017-08-19 13:19 | Pulmonology Progress Note ---
Pulmonary Progress Note Date of Service Aug 19, 2017. Attending Dr. Watson. Subjective Patient seen and examined at bedside. She is out of bed to chair; eating soup for lunch. She states that she had mild stomach upset but is feeling better. She denies any chest pain. She does still continue to have intermittent cough with yellowish productive sputum. Yesterday she was evaluated by pulmonary for hypercapnic respiratory failure. She was placed on BiPAP 10/30. She tolerated it well overnight and placed on 3 L nasal cannula for breakfast this morning. She states that yesterday she was 'out of it' and doesn't remember much. Objective Vital signs reviewed.Temperature is 36.8, blood pressure 111/42-134/71, pulse 52 -68 respiratory rate 16-20, SaO2 91-97% on 3 L nasal cannula. Her total cumulative balance is 3.9 L negative balance. At the time of my evaluation she was saturating between 88-92% on 3 L nasal cannula. Gen.: She is awake alert oriented 3, out of bed to chair. Eating. CVS: S1-S2 regular rate and rhythm Lungs/chest: Decreased air entry bilaterally, no wheezing, no acute respiratory distress. Speaking in full sentences without use of accessory muscles of respiration. Abdomen: Soft, nontender, nondistended bowel sounds positive Lower extremities: SCDs in place; right lower extremity shows mild swelling or edema. Left lower extremity is in normal limits No cyanosis, no clubbing--on upper extremity exam Labs reviewed Hemoglobin 10, MCV 101, platelet 158. ABG 08/18/2017: 7.30/73/66/35/89% on 3 L ABG 08/13/2017: 7.34/64/94/34/96% on 15 L Sputum culture from 08/18/2017: light normal kurtis Checks x-ray viewed and reviewed by me. Chest x-ray from 08/18/2017. Unchanging findings of congestive failure with improving right basilar opacification. Current medications reviewed Antibiotics- doxycycline 100 mg by mouth twice a day and aztreonam 1 g every 8 hours (08/15/2017-) From a respiratory standpoint she is on Xopenex and Atrovent every 6 hours inhalation, Bumex, Coumadin 3 mg, Advair 250/50 one puff twice a day. Assessment & Plan Acute on chronic hypoxic and hypercapnic respiratory failure Obstructive Sleep apnea Right lower lobe pneumonia Right pleural effusion Patient has history of acute on chronic hypoxic and hypercapnic respiratory failure. Elevated PCO2 on ABG. She has responded well to BiPAP 12/6 overnight. She is currently mentating well. I feel that her symptoms are most likely exacerbated COPD exacerbation in the setting of right lower lobe pneumonia, obstructive sleep apnea and combined diuretic use. At the current time I would be judicious with over oxygenating patient. I would maintain her PaO2 greater than 60 mmHg. With an SaO2 ranging between 88- 92%. Due to chronic diuretic use he is also compensating with elevation in PCO2. Continue with antibiotics as sputum cultures showed normal kurtis. Continue with BiPAP at night, be careful not to bring down to PCO2 in 40s, as her baseline is probably in the to 60 mmHg range. This will precipitate respiratory alkalosis ventilatory and take away her respiratory drive. Continue with antibiotic therapy, nebulizers, Advair Diskus and flutter valve. Continue to optimize her cardiac regimen per cardiology recommendations and continue diuresis as her kidney function tolerates. She may benefit from another nasal pillow intolerant to facemask. She should follow with pulmonary as an outpatient as another repeat polysomnography exam should be performed. Data Medications: Current Inpatient Medications Medications (Trade) Dose Ordered Sig/Mehdi Route Start Time Stop Time Status Last Admin Dose Admin Acetaminophen (Tylenol Tab) 650 mg Q4H PRN PO 08/11/17 16:45 09/10/17 16:44 08/16/17 20:31 650 MG Ondansetron HCl (Zofran Inj) 4 mg Q6H PRN IV 08/11/17 16:45 09/10/17 16:44 08/19/17 10:40 4 MG Polyethylene (Miralax Powder Packet) 17 gm DAILY PRN PO 08/11/17 16:45 09/10/17 16:44 Brinzolamide (Azopt) 1 drops BID OPB 08/11/17 21:30 09/10/17 21:29 08/19/17 07:26 1 DROPS Calcitriol (Rocaltrol Cap) 0.25 mcg DAILY PO 08/12/17 09:00 09/11/17 08:59 08/19/17 07:24 0.25 MCG Docusate Sodium (coLACE CAP) 100 mg BID PO 08/11/17 21:30 09/10/17 21:29 08/19/17 07:24 100 MG Donepezil HCl (Aricept Tab) 10 mg HS PO 08/11/17 21:30 09/10/17 21:29 08/18/17 21:49 10 MG Salmeterol Xinafoate/ Fluticasone (Advair Diskus 250/50 Inh) 1 puff BID INH 08/11/17 21:30 09/10/17 21:29 08/19/17 07:25 1 PUFF Fluticasone Propionate (Flonase Nasal [place]) 1 sprays BID PAULIE 08/11/17 21:30 09/10/17 21:29 08/19/17 07:26 1 SPRAYS Hydralazine HCl (Apresoline Tab) 10 mg BID PO 08/11/17 21:30 09/10/17 21:29 08/19/17 07:23 10 MG Levothyroxine Sodium (Synthroid Tab) 75 mcg DAILYBB PO 08/12/17 06:00 09/11/17 05:59 08/19/17 03:55 75 MCG Loratadine (Claritin Tab) 10 mg DAILY PO 08/12/17 09:00 09/11/17 08:59 08/19/17 07:23 10 MG Nitroglycerin (Nitrostat Tab) 0.4 mg UD PRN SL 08/11/17 21:30 09/10/17 21:29 Oxybutynin Chloride (Ditropan-Xl Tab) 5 mg DAILY PO 08/12/17 09:00 09/11/17 08:59 08/19/17 07:25 5 MG Pantoprazole Sodium (Protonix Tab) 40 mg DAILY PO 08/12/17 09:00 09/11/17 08:59 08/19/17 07:26 40 MG Warfarin Sodium (Coumadin Tab) 5 mg DAILY@1600 PO 08/12/17 16:00 09/11/17 15:59 Future Hold Miscellaneous Information (Order Awaiting Action) 1 ea QS N/A 08/12/17 00:00 09/11/17 00:00 Albuterol (Ventolin Hfa Inhaler) 2 puffs Q6H PRN INH 08/11/17 21:30 09/10/17 21:29 Ferrous Sulfate (Feosol Tab) 325 mg BIDM PO 08/12/17 07:30 09/11/17 07:29 08/19/17 07:23 325 MG Pravastatin Sodium (Pravachol Tab) 80 mg HS PO 08/11/17 21:30 09/10/17 21:29 08/18/17 21:49 80 MG Albuterol Sulfate (Ventolin 0.083% 2.5MG/3ML Neb) 2.5 mg Q4H PRN INH 08/12/17 09:00 09/11/17 08:59 08/13/17 10:35 2.5 MG Warfarin Sodium (Coumadin Tab) 3 mg DAILY@16 PO 08/13/17 16:00 09/12/17 15:59 08/18/17 16:07 3 MG Ipratropium [place] (Atrovent 0.02% 0.5MG/2.5ML Neb) 0.5 mg Q4R PRN INH 08/13/17 11:00 09/12/17 10:59 08/18/17 23:05 0.5 MG Levalbuterol (Xopenex 1.25MG/ 0.5ML Neb) 1.25 mg Q4R PRN INH 08/13/17 11:00 09/12/17 10:59 08/18/17 23:06 1.25 MG Lactobacillus Acidophilus (Floranex Tab) 4 tab TIDM PO 08/14/17 16:45 09/13/17 16:44 08/19/17 10:41 4 TAB Metoprolol Succinate (Toprol Xl Tab) 25 mg QAM PO 08/16/17 09:00 09/15/17 08:59 08/19/17 07:24 25 MG Bumetanide (Bumex Tab) 2 mg TuThSa@0900 PO 08/17/17 09:00 09/16/17 08:59 08/17/17 08:40 2 MG Bumetanide (Bumex Tab) 1 mg SuMoWeFr@0900 PO 08/16/17 09:00 09/15/17 08:59 08/19/17 07:24 1 MG Ipratropium [place] (Atrovent 0.02% 0.5MG/2.5ML Neb) 0.5 mg Q6R INH 08/15/17 10:00 09/14/17 09:59 08/19/17 07:01 0.5 MG Levalbuterol (Xopenex 0.63 Mg/ 3 Ml Neb) 0.63 mg Q6R INH 08/15/17 10:00 09/14/17 09:59 08/19/17 07:01 0.63 MG Aztreonam (Consult) 1 ea UD PRN N/A 08/15/17 11:45 09/14/17 11:44 Doxycycline Hyclate (Vibramycin Cap) 100 mg BID PO 08/15/17 21:00 08/22/17 20:59 08/19/17 07:26 100 MG Aztreonam 1000 mg/ Dextrose 110 ml @ 110 mls/hr Q8H IV 08/15/17 20:00 08/22/17 19:59 08/19/17 10:41 110 MLS/HR Tramadol HCl (Ultram Tab) 50 mg Q8H PRN PO 08/18/17 10:30 09/17/17 10:29 08/19/17 08:37 50 MG Vital Signs: Date Time Temp Pulse Resp B/P (MAP) Pulse Ox O2 Delivery O2 Flow Rate FiO2 08/19/17 12:00 92 Nasal Cannula 08/19/17 10:25 36.8 68 16 134/71 (92) 92 BiPAP 08/19/17 08:00 91 BiPAP 08/19/17 07:18 36.8 52 20 111/42 (65) 92 BiPAP 08/19/17 07:02 52 18 97 BiPAP/CPAP 50 08/19/17 04:00 BiPAP 08/19/17 03:24 36.6 53 18 128/54 (78) 96 BiPAP 50 08/19/17 02:26 65 94 50 08/18/17 23:59 91 BiPAP 08/18/17 23:51 37.2 63 18 127/67 (87) 89 Nasal Cannula 3.0 64 08/18/17 23:06 63 18 92 Nasal Cannula 3.0 08/18/17 20:00 91 BiPAP 08/18/17 19:37 36.9 60 20 137/54 (81) 97 BiPAP 08/18/17 19:06 68 90 50 08/18/17 19:03 68 17 90 BiPAP/CPAP 50 08/18/17 17:31 59 92 50 08/18/17 16:00 89 BiPAP 12.0 08/18/17 15:39 36.8 69 22 121/66 (84) 89 Nasal Cannula 3.0 08/18/17 14:34 65 16 89 Nasal Cannula 5.0 Laboratory Results: Last 24 Hours Test 08/18/17 15:14 08/19/17 05:44 08/19/17 09:04 Arterial Blood pH 7.30 Arterial Blood Partial Pressure CO2 73 mmHg Arterial Blood Partial Pressure O2 66 mm/Hg Arterial Blood HCO3 35 mmol/L Arterial Blood Oxygen Saturation 89.4 % Arterial Blood Base Excess 6.7 mEq/L Arterial Blood Gas Delivery 3 LITERS Aditya Test POS White Blood Count 5.56 K/uL Red Blood Count 3.15 M/uL Hemoglobin 10.0 g/dL Hematocrit 31.8 % Mean Corpuscular Volume 101.0 fL Mean Corpuscular Hemoglobin 31.7 pg Mean Corpuscular Hemoglobin Concent 31.4 g/dl Platelet Count 158 K/uL Mean Platelet Volume 11.3 fL Neutrophils (%) (Auto) 61.4 % Lymphocytes (%) (Auto) 22.3 % Monocytes (%) (Auto) 12.4 % Eosinophils (%) (Auto) 3.4 % Basophils (%) (Auto) 0.5 % Neutrophils # (Auto) 3.41 K/uL Lymphocytes # (Auto) 1.24 K/uL Monocytes # (Auto) 0.69 K/uL Eosinophils # (Auto) 0.19 K/uL Basophils # (Auto) 0.03 K/uL RDW Standard Deviation 56.2 fL RDW Coefficient of Variation 15.4 % Immature Granulocyte % (Auto) 0.0 % Immature Granulocyte # (Auto) 0.00 K/uL Sodium Level 142 mmol/L Potassium Level 4.7 mmol/L Chloride Level 105 mmol/L Carbon Dioxide Level 34 mmol/L Anion Gap 3.0 mmol/L Blood Urea Nitrogen 67 mg/dl Creatinine 1.70 mg/dl Est Creatinine Clear Calc Drug Dose 26.0 ml/min Estimated GFR () 34.3 Estimated GFR (Non- 29.6 BUN/Creatinine Ratio 39.5 Random Glucose 74 mg/dl Calcium Level 9.2 mg/dl Prothrombin Time 20.3 SECONDS Prothromb Time International Ratio 1.8
[2017-08-19] MEDS: WARFARIN SOD 3 MG TAB PO SCH (16:51)
[2017-08-19] MEDS: DONEPEZIL HCL 10 MG TAB PO SCH (20:11)
[2017-08-19] MEDS: PRAVASTATIN SOD 40 MG TAB PO SCH (20:13)
[2017-08-20] VITALS (17 sets, daily range): BP systolic 111–142; BP diastolic 52–85; PULSE 48–62; TEMP 36–36.9; O2SAT 89–96
[2017-08-20] MEDS: LEVALBUTEROL 0.63MG/3 ML NEB INH SCH ×4 (01:30→19:01)
[2017-08-20] MEDS: IPRATROPIUM BROMIDE NEB SOLN 0.02% 2.5 ML VIAL INH SCH ×4 (01:30→19:01)
[2017-08-20] MEDS: AZTREONAM IV 1,000 MG in DEXTROSE 5% 100ML IV SCH ×3 (04:46→20:16)
[2017-08-20] MEDS: LEVOTHYROXINE 75 MCG TAB PO SCH (06:43)
[2017-08-20 07:00] LABS: BASO % 1.7 %; BASO ABS # 0.09 K/uL (0-0.2); COMPLETE YES; HEMATOCRIT 32.8 % (37-47); IG% 0.2 %; LYMPH % 23.8 %; LYMPH ABS # 1.25 K/uL (1.2-3.4); MEAN CELL VOLUME 100.6 fL (80-100); MEAN CORPUSCULAR HEMOGLOBIN 29.8 pg (25-34); MEAN CORPUSCULAR HGB CONC 29.6 g/dl (32-36); MEAN PLATELET VOLUME 11.7 fL (7.4-10.4); MONO % 14.6 %; NEUT % 55.7 %; PLATELET COUNT 158 K/uL (130-400); RED BLOOD COUNT 3.26 M/uL (4.2-5.4); WHITE BLOOD COUNT 5.26 K/uL (4.8-10.8)
[2017-08-20 07:08] LABS: INR 1.8 (0.9-1.1); PROTHROMBIN TIME (PATIENT) 20.3 SECONDS (9.0-12.0)
[2017-08-20 07:31] LABS: BUN/CREATININE RATIO 39.8 (10-20); CALCIUM 8.9 mg/dl (8.5-10.1); CREATININE 1.9 mg/dl (0.60-1.20); POTASSIUM 4.8 mmol/L (3.5-5.1)
[2017-08-20] MEDS: LACTOBACILLUS ACIDOPHILUS (FLORANEX) TAB PO SCH ×3 (07:38→17:17)
[2017-08-20] MEDS: FERROUS SULFATE 325 MG TAB PO SCH ×2 (07:38→17:17)
[2017-08-20] MEDS: FLUTICASONE PROPIONATE NA SPR 16 GM BTL NAE SCH ×2 (07:39→20:16)
[2017-08-20] MEDS: FLUTICASONE/SALMETEROL 250/50 (ADVAIR) 14 PUFF/1 INHALER INH SCH ×2 (07:39→20:16)
[2017-08-20] MEDS: BRINZOLAMIDE (AZOPT) OPS 10 ML BTL OPB SCH ×2 (07:39→20:17)
[2017-08-20] MEDS: BUMETANIDE 1 MG TAB PO SCH (07:40)
[2017-08-20] MEDS: PANTOprazole SOD 40 MG TAB PO SCH (07:41)
[2017-08-20] MEDS: OXYBUTYNIN CHLORIDE 5 MG TABCR PO SCH (07:41)
[2017-08-20] MEDS: DOCUSATE SODIUM 100 MG CAP PO SCH ×2 (07:41→20:17)
[2017-08-20] MEDS: LORATADINE 10 MG TAB PO SCH (07:41)
[2017-08-20] MEDS: METOPROLOL SUCC 25MG EXT REL TAB PO SCH (07:42)
[2017-08-20] MEDS: DOXYCYCLINE HYCLATE 100 MG CAP PO SCH ×2 (07:42→20:17)
[2017-08-20] MEDS: CALCITRIOL 0.25 MCG CAP PO SCH (07:42)
[2017-08-20] MEDS: HydrALAZINE 10 MG TAB PO SCH ×2 (07:43→20:18)
[2017-08-20] MEDS: INCRUSE ELLIPTA~ORDER AWAITING ACTION SCH ×3 (08:15→16:00)
--- NOTE | 2017-08-20 10:40 | Progress Note ---
Medicine Progress Note Date & Time of Visit: Aug 20, 2017 at 10:40. delayed entry date of service 08/19/17 Subjective seen resting in bed states she is comfortable denies dyspnea tolerating bipap mask lower leg pain improving denies other symptoms Objective Last 8 Hrs Date Time Temp Pulse Resp B/P (MAP) Pulse Ox O2 Delivery O2 Flow Rate FiO2 08/20/17 08:00 89 Nasal Cannula 3.0 08/20/17 07:56 62 14 111/52 (71) 89 Nasal Cannula 3.0 08/20/17 07:48 36.0 49 20 111/52 (71) 91 BiPAP 40 59 08/20/17 07:08 51 90 40 08/20/17 07:08 51 18 90 BiPAP/CPAP 40 08/20/17 04:00 90 BiPAP 50 08/20/17 04:00 36.5 57 20 132/65 (87) 94 BiPAP Physical Exam: General- oriented x 3, not in distress, speaks in sentences , no acc muscle use Eyes- anicteric Neck- mild JVD Lungs- mild rales bilateral bases Heart- regular rhythm; no murmur, normal rate Abdomen- normal bowel sounds, soft, nontender Extremities- grade 1 lower leg edema, (+) mild erythema bilaterally--> continues to improve Neuro- alert, oriented x 3;no gross focal deficits Skin- warm & dry Laboratory Results: Last 24 Hours Test 08/20/17 06:25 White Blood Count 5.26 K/uL Red Blood Count 3.26 M/uL Hemoglobin 9.7 g/dL Hematocrit 32.8 % Mean Corpuscular Volume 100.6 fL Mean Corpuscular Hemoglobin 29.8 pg Mean Corpuscular Hemoglobin Concent 29.6 g/dl Platelet Count 158 K/uL Mean Platelet Volume 11.7 fL Neutrophils (%) (Auto) 55.7 % Lymphocytes (%) (Auto) 23.8 % Monocytes (%) (Auto) 14.6 % Eosinophils (%) (Auto) 4.0 % Basophils (%) (Auto) 1.7 % Neutrophils # (Auto) 2.93 K/uL Lymphocytes # (Auto) 1.25 K/uL Monocytes # (Auto) 0.77 K/uL Eosinophils # (Auto) 0.21 K/uL Basophils # (Auto) 0.09 K/uL RDW Standard Deviation 55.9 fL RDW Coefficient of Variation 15.2 % Immature Granulocyte % (Auto) 0.2 % Immature Granulocyte # (Auto) 0.01 K/uL Prothrombin Time 20.3 SECONDS Prothromb Time International Ratio 1.8 Sodium Level 138 mmol/L Potassium Level 4.8 mmol/L Chloride Level 99 mmol/L Carbon Dioxide Level 33 mmol/L Anion Gap 6.0 mmol/L Blood Urea Nitrogen 76 mg/dl Creatinine 1.90 mg/dl Est Creatinine Clear Calc Drug Dose 23.7 ml/min Estimated GFR () 30.0 Estimated GFR (Non- 25.9 BUN/Creatinine Ratio 39.8 Random Glucose 87 mg/dl Calcium Level 8.9 mg/dl Assessment & Plan 71 yo F presents with acute bilateral leg swelling. 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 with preserved EF -- Hx of pulmonary hypertension -- 02 requirement down from 8 to 3 liters -- given IV Bumex -- PO Bumex resumed, 1mg and 2mg alternating daily diuresing adequately crea stable -- Cardio input appreciated Pneumonia, Right Lower Lobe Possible Mild COPD Exacerbation -- was admitted 05/2017 for Pneumonia -- CT chest: (+) pneumonia, right lower lobe consolidation -- antibiotics broadened to Aztreonam and Doxycycline Nebs q6h started O2 requirement lower now, from 8 to 3 liters sputum cultures: light normal panda -- improving gradually since antibiotics broadened Bipap at HS started, tolerating well, will need to continue on discharge Sleep Study as outpatient appreciate Pulm SVC input will need Pulm Eval as outpatient YAZMIN on CKD IV baseline cr 1.8 crea 2.2 --> 1.9 -- monitor while on diuretics B/L Lower Extremity Cellulitis -- changed Ceftri to Clindamycin IV> -- antibiotics broadened to Aztreonam and Doxycycline -- improved gradually since antibiotics broadened monitor PT /OT Right Elbow and Wrist Pain -- Xray to r/o fracture: negative for fracture -- likely Sprain ice compress PRN, monitor -- improved Atrial fibrillation -currently in sinus rhythm, cont warfarin and metoprolol -- continue coumadin Dementia --cont Aricept HTN -- On Toprol xl and hydralazine Anemia, - multifactorial 2/2 iron def 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 At baseline. Nephro following as outpatient. Hypothyroidism-tsh mildly elevated -- normal free t4 t3 low -- repeat as outpatient -- on Synthroid Constipation -- now with BMs Deconditioning - PT/OT DVT proph on coumadin Full Code Dispo-Monitor in telemetry pt/ot social service for d/c planning Current Inpatient Medications: Current Inpatient Medications Medications (Trade) Dose Ordered Sig/Mehdi Route Start Time Stop Time Status Last Admin Dose Admin Acetaminophen (Tylenol Tab) 650 mg Q4H PRN PO 08/11/17 16:45 09/10/17 16:44 08/16/17 20:31 650 MG Ondansetron HCl (Zofran Inj) 4 mg Q6H PRN IV 08/11/17 16:45 09/10/17 16:44 08/19/17 16:50 4 MG Polyethylene (Miralax Powder Packet) 17 gm DAILY PRN PO 08/11/17 16:45 09/10/17 16:44 Brinzolamide (Azopt) 1 drops BID OPB 08/11/17 21:30 09/10/17 21:29 08/20/17 07:39 1 DROPS Calcitriol (Rocaltrol Cap) 0.25 mcg DAILY PO 08/12/17 09:00 09/11/17 08:59 08/20/17 07:42 0.25 MCG Docusate Sodium (coLACE CAP) 100 mg BID PO 08/11/17 21:30 09/10/17 21:29 08/20/17 07:41 100 MG Donepezil HCl (Aricept Tab) 10 mg HS PO 08/11/17 21:30 09/10/17 21:29 08/19/17 20:11 10 MG Salmeterol Xinafoate/ Fluticasone (Advair Diskus 250/50 Inh) 1 puff BID INH 08/11/17 21:30 09/10/17 21:29 08/20/17 07:39 1 PUFF Fluticasone Propionate (Flonase Nasal [place]) 1 sprays BID PAULIE 08/11/17 21:30 09/10/17 21:29 08/20/17 07:39 1 SPRAYS Hydralazine HCl (Apresoline Tab) 10 mg BID PO 08/11/17 21:30 09/10/17 21:29 08/20/17 07:43 10 MG Levothyroxine Sodium (Synthroid Tab) 75 mcg DAILYBB PO 08/12/17 06:00 09/11/17 05:59 08/20/17 06:43 75 MCG Loratadine (Claritin Tab) 10 mg DAILY PO 08/12/17 09:00 09/11/17 08:59 08/20/17 07:41 10 MG Nitroglycerin (Nitrostat Tab) 0.4 mg UD PRN SL 08/11/17 21:30 09/10/17 21:29 Oxybutynin Chloride (Ditropan-Xl Tab) 5 mg DAILY PO 08/12/17 09:00 09/11/17 08:59 08/20/17 07:41 5 MG Pantoprazole Sodium (Protonix Tab) 40 mg DAILY PO 08/12/17 09:00 09/11/17 08:59 08/20/17 07:41 40 MG Warfarin Sodium (Coumadin Tab) 5 mg DAILY@1600 PO 08/12/17 16:00 09/11/17 15:59 Future Hold Miscellaneous Information (Order Awaiting Action) 1 ea QS N/A 08/12/17 00:00 09/11/17 00:00 Albuterol (Ventolin Hfa Inhaler) 2 puffs Q6H PRN INH 08/11/17 21:30 09/10/17 21:29 Ferrous Sulfate (Feosol Tab) 325 mg BIDM PO 08/12/17 07:30 09/11/17 07:29 08/20/17 07:38 325 MG Pravastatin Sodium (Pravachol Tab) 80 mg HS PO 08/11/17 21:30 09/10/17 21:29 08/19/17 20:13 80 MG Albuterol Sulfate (Ventolin 0.083% 2.5MG/3ML Neb) 2.5 mg Q4H PRN INH 08/12/17 09:00 09/11/17 08:59 08/13/17 10:35 2.5 MG Ipratropium [place] (Atrovent 0.02% 0.5MG/2.5ML Neb) 0.5 mg Q4R PRN INH 08/13/17 11:00 09/12/17 10:59 08/18/17 23:05 0.5 MG Levalbuterol (Xopenex 1.25MG/ 0.5ML Neb) 1.25 mg Q4R PRN INH 08/13/17 11:00 09/12/17 10:59 08/18/17 23:06 1.25 MG Lactobacillus Acidophilus (Floranex Tab) 4 tab TIDM PO 08/14/17 16:45 09/13/17 16:44 08/20/17 07:38 4 TAB Metoprolol Succinate (Toprol Xl Tab) 25 mg QAM PO 08/16/17 09:00 09/15/17 08:59 08/20/17 07:42 25 MG Ipratropium [place] (Atrovent 0.02% 0.5MG/2.5ML Neb) 0.5 mg Q6R INH 08/15/17 10:00 09/14/17 09:59 08/20/17 07:08 0.5 MG Levalbuterol (Xopenex 0.63 Mg/ 3 Ml Neb) 0.63 mg Q6R INH 08/15/17 10:00 09/14/17 09:59 08/20/17 07:08 0.63 MG Aztreonam (Consult) 1 ea UD PRN N/A 08/15/17 11:45 09/14/17 11:44 Doxycycline Hyclate (Vibramycin Cap) 100 mg BID PO 08/15/17 21:00 08/22/17 20:59 08/20/17 07:42 100 MG Aztreonam 1000 mg/ Dextrose 110 ml @ 110 mls/hr Q8H IV 08/15/17 20:00 08/22/17 19:59 08/20/17 04:46 110 MLS/HR Tramadol HCl (Ultram Tab) 50 mg Q8H PRN PO 08/18/17 10:30 09/17/17 10:29 08/19/17 16:50 50 MG Bumetanide (Bumex Tab) 1 mg UD PO 08/20/17 10:30 09/19/17 10:29 UNV Bumetanide (Bumex Tab) 2 mg UD PO 08/20/17 10:30 09/19/17 10:29 UNV Warfarin Sodium (Coumadin Tab) 5 mg DAILY@16 PO 08/20/17 16:00 10/19/17 15:59 UNV
[2017-08-20] MEDS: ONDANSETRON INJ 2 MG/ML 2 ML VIAL IV PRN (12:26)
[2017-08-20] MEDS ORDERED: BUMETANIDE 1 MG TAB PO SCH (13:00)
--- NOTE | 2017-08-20 13:25 | Cardiology Follow-Up ---
Subjective General Date of Service: Aug 20, 2017. Pt evaluation today including: conversation w/ patient, physical exam, chart review, lab review, review of studies, review of inpatient medication list History of Present Illness The patient is a 71 year old female seen in follow-up. More alert today. Lower extremity erythema has resolved. No significant edema. BUN/creatinine rising with current diuretic therapy. Patient denies orthopnea or PND. Tolerating BiPAP at night. Allergies Coded Allergies: Levofloxacin (Verified Allergy, Intermediate, HIVES, 01/25/17) Quinolones (Verified Allergy, Intermediate, HIVES, 01/25/17) Ranitidine (Verified Allergy, Intermediate, HIVES, 01/25/17) Sulfamethoxazole (Verified Allergy, Intermediate, HIVES, 01/25/17) Trimethoprim (Verified Allergy, Intermediate, HIVES, 01/25/17) Clarithromycin (Verified Allergy, Mild, HIVES, CAN TAKE ZITHROMAX W/O PROB , 01/25/17) Amoxicillin (Verified Allergy, Unknown, HIVES, 01/25/17) Omeprazole (Verified Allergy, Unknown, HAS HAD PROTONIX, 01/25/17) Social History Smoking Status: Former Smoker Hx Tobacco Use In Past Year?: No Hx Alcohol Use - Type And Amou: No Hx Substance Use - Type And Am: Yes Problem List Medical Problems: (1) Acute kidney injury Status: Acute (2) Atrial flutter Status: Acute (3) Back pain Status: Acute (4) Bilateral knee pain Status: Acute (5) CHF (congestive heart failure) Status: Acute (6) CHF exacerbation Status: Acute (7) Closed head injury Status: Acute (8) Concussion Status: Acute (9) COPD exacerbation Status: Acute (10) Fall Status: Acute (11) Hyperkalemia Status: Acute (12) Hypoxia Status: Acute (13) Lower extremity edema Status: Acute (14) Peripheral edema Status: Acute (15) Pneumonia Status: Acute (16) Pneumonia involving right lung Status: Acute (17) Sciatica Status: Acute (18) Seizure Status: Acute (19) Sepsis Status: Acute (20) Subtherapeutic international normalized ratio (INR) Status: Acute (21) Weakness Status: Acute Review of Systems Respiratory: + cough, + dyspnea on exertion, No sputum, No wheezing, No shortness of breath, No dyspnea at rest, No hemoptysis Cardiac: No chest pain, No orthopnea, No PND, No edema, No claudication, No palpitations Physical Exam Vital Signs Last Vital Signs Documentation Date Time Temp Pulse Resp B/P (MAP) Pulse Ox O2 Delivery O2 Flow Rate FiO2 08/20/17 12:00 91 Nasal Cannula 3.0 08/20/17 11:49 36.9 59 16 142/61 (88) 55 08/20/17 07:48 40 Physical Exam Constitutional: General Apperance: overweight Level of Distress: chronically ill Head: normocephalic Lungs: Auscultation: no wheezing, no rales/crackles, no rhonchi Cardiovascular: Heart Auscultation: RRR, normal S1, normal S2, I/ WSM Peripheral Pulses: Radial Pulse: normal on the right Abdomen: Bowel Sounds: normal Inspection & Palpation: soft, non-distended, no tenderness, guarding & rebound Extremities: no cyanosis, no edema Neurologic: Cranial Nerves: grossly intact Assessment and Plan Assessment and Plan FINAL IMPRESSION: 1. 71-year-old female initially admitted with acute on chronic decompensated diastolic and right sided heart failure. Today, patient appears mildly volume depleted with rising BUN and creatinine. I am concerned regarding potentiating dehydration, which may worsen her CO2 retention. 2. Nonsustained ventricular tachycardia -EP input appreciated -S/p loop recorder implantation 08/16/2017 -No recurrence overnight 3. Lower extremity cellulitis - resolved 4. 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 5. Subtherapeutic INR. 6. Acute on chronic renal insufficiency --BUN/creatinine creatinine trending upward on diuretic therapy 7. Severe oxygen dependent chronic obstructive pulmonary disease with hypercapnia now requiring BiPAP nightly. PLAN AND RECOMMENDATIONS: Hold diuretic therapy. Repeat BMP in a.m. Will follow volume status closely, and likely, reduce daily diuretic dosing pending review of lab testing and clinical response. Outpatient Loop recorder follow up scheduled. Continue Toprol-XL 25 mg daily. Antibiotics per IM. Appreciate neurology input. Laboratory Results Last 24 Hours Test 08/20/17 06:25 White Blood Count 5.26 K/uL Red Blood Count 3.26 M/uL Hemoglobin 9.7 g/dL Hematocrit 32.8 % Mean Corpuscular Volume 100.6 fL Mean Corpuscular Hemoglobin 29.8 pg Mean Corpuscular Hemoglobin Concent 29.6 g/dl Platelet Count 158 K/uL Mean Platelet Volume 11.7 fL Neutrophils (%) (Auto) 55.7 % Lymphocytes (%) (Auto) 23.8 % Monocytes (%) (Auto) 14.6 % Eosinophils (%) (Auto) 4.0 % Basophils (%) (Auto) 1.7 % Neutrophils # (Auto) 2.93 K/uL Lymphocytes # (Auto) 1.25 K/uL Monocytes # (Auto) 0.77 K/uL Eosinophils # (Auto) 0.21 K/uL Basophils # (Auto) 0.09 K/uL RDW Standard Deviation 55.9 fL RDW Coefficient of Variation 15.2 % Immature Granulocyte % (Auto) 0.2 % Immature Granulocyte # (Auto) 0.01 K/uL Prothrombin Time 20.3 SECONDS Prothromb Time International Ratio 1.8 Sodium Level 138 mmol/L Potassium Level 4.8 mmol/L Chloride Level 99 mmol/L Carbon Dioxide Level 33 mmol/L Anion Gap 6.0 mmol/L Blood Urea Nitrogen 76 mg/dl Creatinine 1.90 mg/dl Est Creatinine Clear Calc Drug Dose 23.7 ml/min Estimated GFR () 30.0 Estimated GFR (Non- 25.9 BUN/Creatinine Ratio 39.8 Random Glucose 87 mg/dl Calcium Level 8.9 mg/dl
--- NOTE | 2017-08-20 14:35 | Pulmonology Progress Note ---
Pulmonary Progress Note Date of Service Aug 20, 2017. Attending Dr. Watson Subjective Patient seen and examined. She says she is less short of breath. Denies any chest pain or palpitations. She has intermittent cough. Objective Vital signs reviewed.Temperature is 36.9, blood pressure 111/52-142/61, pulse 49 -62, respiratory rate 16-20, SaO2 89-94 % on 3 L nasal cannula. Her total cumulative balance is 4 L L negative balance. At the time of my evaluation she was saturating between 88-94% on 3 L nasal cannula. Gen.: She is awake alert oriented 3, out of bed to chair. Eating. CVS: S1-S2 regular rate and rhythm Lungs/chest: Decreased air entry bilaterally, no wheezing, no acute respiratory distress. Speaking in full sentences without use of accessory muscles of respiration. Abdomen: Soft, nontender, nondistended bowel sounds positive Lower extremities: SCDs in place; right lower extremity swelling and edema improved. Left lower extremity is in normal limits No cyanosis, no clubbing-- on upper extremity exam Labs reviewed BUN 76, Creatinine 1.9 ABG 08/18/2017: 7.30/73/66/35/89% on 3 L ABG 08/13/2017: 7.34/64/94/34/96% on 15 L Years. Sputum culture from 08/18/2017: light normal kurtis Checks x-ray viewed and reviewed by me. Chest x-ray from 08/18/2017. Unchanging findings of congestive failure with improving right basilar opacification. Current medications reviewed Antibiotics- doxycycline 100 mg by mouth twice a day and aztreonam 1 g every 8 hours (08/15/2017-) Assessment & Plan Acute on chronic hypoxic and hypercapnic respiratory failure-improving Obstructive Sleep apnea Right lower lobe pneumonia Right pleural effusion Patient has history of acute on chronic hypoxic and hypercapnic respiratory failure. Elevated PCO2 on ABG. She has responded well to BiPAP 12/6 overnight. She is currently mentating well. I feel that her symptoms are most likely exacerbated COPD exacerbation in the setting of right lower lobe pneumonia, obstructive sleep apnea and combined diuretic use. Maintain SaO2 ranging between 88-92% with Oxymizer mask. Continue with BiPAP at night. Continue with antibiotic therapy, nebulizers, Advair Diskus and flutter valve. Continue to optimize her cardiac regime per cardiology recommendations and continue diuresis as her kidney function tolerates. She may benefit from another nasal pillow intolerant to facemask. She should follow with pulmonary as an outpatient is another repeat polysomnography exam should be performed. Will sign off on case today. Please contact me if you have any further questions or contact Data Medications: Current Inpatient Medications Medications (Trade) Dose Ordered Sig/Mehdi Route Start Time Stop Time Status Last Admin Dose Admin Acetaminophen (Tylenol Tab) 650 mg Q4H PRN PO 08/11/17 16:45 09/10/17 16:44 08/16/17 20:31 650 MG Ondansetron HCl (Zofran Inj) 4 mg Q6H PRN IV 08/11/17 16:45 09/10/17 16:44 08/20/17 12:26 4 MG Polyethylene (Miralax Powder Packet) 17 gm DAILY PRN PO 08/11/17 16:45 09/10/17 16:44 Brinzolamide (Azopt) 1 drops BID OPB 08/11/17 21:30 09/10/17 21:29 08/20/17 07:39 1 DROPS Calcitriol (Rocaltrol Cap) 0.25 mcg DAILY PO 08/12/17 09:00 09/11/17 08:59 08/20/17 07:42 0.25 MCG Docusate Sodium (coLACE CAP) 100 mg BID PO 08/11/17 21:30 09/10/17 21:29 08/20/17 07:41 100 MG Donepezil HCl (Aricept Tab) 10 mg HS PO 08/11/17 21:30 09/10/17 21:29 08/19/17 20:11 10 MG Salmeterol Xinafoate/ Fluticasone (Advair Diskus 250/50 Inh) 1 puff BID INH 08/11/17 21:30 09/10/17 21:29 08/20/17 07:39 1 PUFF Fluticasone Propionate (Flonase Nasal [place]) 1 sprays BID PAULIE 08/11/17 21:30 09/10/17 21:29 08/20/17 07:39 1 SPRAYS Hydralazine HCl (Apresoline Tab) 10 mg BID PO 08/11/17 21:30 09/10/17 21:29 08/20/17 07:43 10 MG Levothyroxine Sodium (Synthroid Tab) 75 mcg DAILYBB PO 08/12/17 06:00 09/11/17 05:59 08/20/17 06:43 75 MCG Loratadine (Claritin Tab) 10 mg DAILY PO 08/12/17 09:00 09/11/17 08:59 08/20/17 07:41 10 MG Nitroglycerin (Nitrostat Tab) 0.4 mg UD PRN SL 08/11/17 21:30 09/10/17 21:29 Oxybutynin Chloride (Ditropan-Xl Tab) 5 mg DAILY PO 08/12/17 09:00 09/11/17 08:59 08/20/17 07:41 5 MG Pantoprazole Sodium (Protonix Tab) 40 mg DAILY PO 08/12/17 09:00 09/11/17 08:59 08/20/17 07:41 40 MG Miscellaneous Information (Order Awaiting Action) 1 ea QS N/A 08/12/17 00:00 09/11/17 00:00 Albuterol (Ventolin Hfa Inhaler) 2 puffs Q6H PRN INH 08/11/17 21:30 09/10/17 21:29 Ferrous Sulfate (Feosol Tab) 325 mg BIDM PO 08/12/17 07:30 09/11/17 07:29 08/20/17 07:38 325 MG Pravastatin Sodium (Pravachol Tab) 80 mg HS PO 08/11/17 21:30 09/10/17 21:29 08/19/17 20:13 80 MG Albuterol Sulfate (Ventolin 0.083% 2.5MG/3ML Neb) 2.5 mg Q4H PRN INH 08/12/17 09:00 09/11/17 08:59 08/13/17 10:35 2.5 MG Ipratropium [place] (Atrovent 0.02% 0.5MG/2.5ML Neb) 0.5 mg Q4R PRN INH 08/13/17 11:00 09/12/17 10:59 08/18/17 23:05 0.5 MG Levalbuterol (Xopenex 1.25MG/ 0.5ML Neb) 1.25 mg Q4R PRN INH 08/13/17 11:00 09/12/17 10:59 08/18/17 23:06 1.25 MG Lactobacillus Acidophilus (Floranex Tab) 4 tab TIDM PO 08/14/17 16:45 09/13/17 16:44 08/20/17 12:27 4 TAB Metoprolol Succinate (Toprol Xl Tab) 25 mg QAM PO 08/16/17 09:00 09/15/17 08:59 08/20/17 07:42 25 MG Ipratropium [place] (Atrovent 0.02% 0.5MG/2.5ML Neb) 0.5 mg Q6R INH 08/15/17 10:00 09/14/17 09:59 08/20/17 07:08 0.5 MG Levalbuterol (Xopenex 0.63 Mg/ 3 Ml Neb) 0.63 mg Q6R INH 08/15/17 10:00 09/14/17 09:59 08/20/17 07:08 0.63 MG Aztreonam (Consult) 1 ea UD PRN N/A 08/15/17 11:45 09/14/17 11:44 Doxycycline Hyclate (Vibramycin Cap) 100 mg BID PO 08/15/17 21:00 08/22/17 20:59 08/20/17 07:42 100 MG Aztreonam 1000 mg/ Dextrose 110 ml @ 110 mls/hr Q8H IV 08/15/17 20:00 08/22/17 19:59 08/20/17 12:26 110 MLS/HR Tramadol HCl (Ultram Tab) 50 mg Q8H PRN PO 08/18/17 10:30 09/17/17 10:29 08/19/17 16:50 50 MG Warfarin Sodium (Coumadin Tab) 5 mg DAILY@16 PO 08/20/17 16:00 09/12/17 15:59 I & O: 24-Hour Column 08/21/17 08:00 Intake Total 154 ml Output Total 400 ml Balance -246 ml Vital Signs: Date Time Temp Pulse Resp B/P (MAP) Pulse Ox O2 Delivery O2 Flow Rate FiO2 08/20/17 12:00 91 Nasal Cannula 3.0 08/20/17 11:49 36.9 59 16 142/61 (88) 55 08/20/17 08:00 89 Nasal Cannula 3.0 08/20/17 07:56 62 14 111/52 (71) 89 Nasal Cannula 3.0 08/20/17 07:48 36.0 49 20 111/52 (71) 91 BiPAP 40 59 08/20/17 07:08 51 90 40 08/20/17 07:08 51 18 90 BiPAP/CPAP 40 08/20/17 04:00 90 BiPAP 50 08/20/17 04:00 36.5 57 20 132/65 (87) 94 BiPAP 08/20/17 01:30 55 16 91 BiPAP/CPAP 40 08/20/17 00:00 92 BiPAP 50 08/19/17 23:59 36.8 59 20 118/65 (82) 91 BiPAP 08/19/17 21:58 53 98 50 08/19/17 21:24 92 BiPAP 50 08/19/17 20:00 89 Nasal Cannula 3.0 08/19/17 19:46 37.0 59 20 117/63 (81) 92 Nasal Cannula 4.0 08/19/17 18:52 59 18 90 Nasal Cannula 3.0 08/19/17 16:00 Nasal Cannula 08/19/17 15:23 36.9 62 20 120/50 (73) 91 Nasal Cannula 3.0 Laboratory Results: Last 24 Hours Test 08/20/17 06:25 White Blood Count 5.26 K/uL Red Blood Count 3.26 M/uL Hemoglobin 9.7 g/dL Hematocrit 32.8 % Mean Corpuscular Volume 100.6 fL Mean Corpuscular Hemoglobin 29.8 pg Mean Corpuscular Hemoglobin Concent 29.6 g/dl Platelet Count 158 K/uL Mean Platelet Volume 11.7 fL Neutrophils (%) (Auto) 55.7 % Lymphocytes (%) (Auto) 23.8 % Monocytes (%) (Auto) 14.6 % Eosinophils (%) (Auto) 4.0 % Basophils (%) (Auto) 1.7 % Neutrophils # (Auto) 2.93 K/uL Lymphocytes # (Auto) 1.25 K/uL Monocytes # (Auto) 0.77 K/uL Eosinophils # (Auto) 0.21 K/uL Basophils # (Auto) 0.09 K/uL RDW Standard Deviation 55.9 fL RDW Coefficient of Variation 15.2 % Immature Granulocyte % (Auto) 0.2 % Immature Granulocyte # (Auto) 0.01 K/uL Prothrombin Time 20.3 SECONDS Prothromb Time International Ratio 1.8 Sodium Level 138 mmol/L Potassium Level 4.8 mmol/L Chloride Level 99 mmol/L Carbon Dioxide Level 33 mmol/L Anion Gap 6.0 mmol/L Blood Urea Nitrogen 76 mg/dl Creatinine 1.90 mg/dl Est Creatinine Clear Calc Drug Dose 23.7 ml/min Estimated GFR () 30.0 Estimated GFR (Non- 25.9 BUN/Creatinine Ratio 39.8 Random Glucose 87 mg/dl Calcium Level 8.9 mg/dl
[2017-08-20] MEDS: WARFARIN SOD 5 MG TAB PO SCH (17:17)
[2017-08-20] MEDS: DONEPEZIL HCL 10 MG TAB PO SCH (20:17)
[2017-08-20] MEDS: PRAVASTATIN SOD 40 MG TAB PO SCH (20:17)
--- NOTE | 2017-08-20 22:50 | Progress Note ---
Medicine Progress Note Date & Time of Visit: Aug 20, 2017 at 22:42. Subjective patient seen resting in bed, comfortable, caregiver at bedside on 3 L nasal cannula feels ok overall denies dyspnea, no orthopnea, tolerating Bipap legs feels weak, no pain no other symptoms Objective Last 8 Hrs Date Time Temp Pulse Resp B/P (MAP) Pulse Ox O2 Delivery O2 Flow Rate FiO2 08/20/17 20:00 91 Nasal Cannula 4.0 08/20/17 19:03 51 18 91 Nasal Cannula 4.0 08/20/17 18:47 36.7 51 16 124/85 (98) 92 Nasal Cannula 4.0 08/20/17 16:00 94 Nasal Cannula 4.0 08/20/17 15:14 36.4 48 16 128/73 (91) 90 Nasal Cannula 4.0 Physical Exam: General- oriented x 3, not in distress, speaks in sentences , no acc muscle use Eyes- anicteric Neck- no JVD Lungs- mild rales bilateral bases- improving Heart- regular rhythm; no murmur, normal rate Abdomen- normal bowel sounds, soft, nontender Extremities- grade 1 lower leg edema, (+) mild erythema bilaterally-->improving Neuro- alert, oriented x 3;no gross focal deficits Skin- warm & dry Laboratory Results: Last 24 Hours Test 08/20/17 06:25 White Blood Count 5.26 K/uL Red Blood Count 3.26 M/uL Hemoglobin 9.7 g/dL Hematocrit 32.8 % Mean Corpuscular Volume 100.6 fL Mean Corpuscular Hemoglobin 29.8 pg Mean Corpuscular Hemoglobin Concent 29.6 g/dl Platelet Count 158 K/uL Mean Platelet Volume 11.7 fL Neutrophils (%) (Auto) 55.7 % Lymphocytes (%) (Auto) 23.8 % Monocytes (%) (Auto) 14.6 % Eosinophils (%) (Auto) 4.0 % Basophils (%) (Auto) 1.7 % Neutrophils # (Auto) 2.93 K/uL Lymphocytes # (Auto) 1.25 K/uL Monocytes # (Auto) 0.77 K/uL Eosinophils # (Auto) 0.21 K/uL Basophils # (Auto) 0.09 K/uL RDW Standard Deviation 55.9 fL RDW Coefficient of Variation 15.2 % Immature Granulocyte % (Auto) 0.2 % Immature Granulocyte # (Auto) 0.01 K/uL Prothrombin Time 20.3 SECONDS Prothromb Time International Ratio 1.8 Sodium Level 138 mmol/L Potassium Level 4.8 mmol/L Chloride Level 99 mmol/L Carbon Dioxide Level 33 mmol/L Anion Gap 6.0 mmol/L Blood Urea Nitrogen 76 mg/dl Creatinine 1.90 mg/dl Est Creatinine Clear Calc Drug Dose 23.7 ml/min Estimated GFR () 30.0 Estimated GFR (Non- 25.9 BUN/Creatinine Ratio 39.8 Random Glucose 87 mg/dl Calcium Level 8.9 mg/dl Assessment & Plan 71 yo F presents with acute bilateral leg swelling. 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 with preserved EF -- with underlying pulmonary hypertension -- 02 requirement down from 8 to 3 liters -- given IV Bumex, then PO Bumex resumed, 1mg and 2mg alternating daily diuresed gradually -- PO Bumex held for now due to increasing bun/crea -- further diuresis per Cardio SVC Cardio input appreciated Pneumonia, Right Lower Lobe Possible Mild COPD Exacerbation -- was admitted 05/2017 for Pneumonia -- CT chest: (+) pneumonia, right lower lobe consolidation -- antibiotics broadened to Aztreonam and Doxycycline Day 05/01 Nebs q6h started O2 requirement lower now, from 8 to 3 liters sputum cultures: light normal kurtis -- improving gradually since antibiotics broadened Bipap at HS started, tolerating well, will need to continue on discharge Sleep Study as outpatient appreciate Pulm SVC input will need Pulm Eval as outpatient YAZMIN on CKD IV baseline cr 1.8 crea 2.2 --> 1.9 -- PO Bumex on hold -- monitor while on diuretics B/L Lower Extremity Cellulitis -- changed Ceftri to Clindamycin IV> -- antibiotics broadened to Aztreonam and Doxycycline 05/01 -- improved gradually since antibiotics broadened monitor PT /OT Right Elbow and Wrist Pain -- Xray to r/o fracture: negative for fracture -- likely Sprain ice compress PRN, monitor -- improved Atrial fibrillation -currently in sinus rhythm, cont warfarin and metoprolol -- INR 1.8 -- coumadin increased to 5mg po daily monitor Dementia --cont Aricept HTN -- On Toprol xl and hydralazine Anemia, - multifactorial 2/2 iron def 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 At baseline. Nephro following as outpatient. Hypothyroidism-tsh mildly elevated -- normal free t4 t3 low -- repeat as outpatient -- on Synthroid Constipation -- now with BMs Deconditioning - PT/OT DVT proph on coumadin Full Code Dispo anticipate d/c to [facility] when medically stable ff up with PCP, [employer], Pulmonary, Coumadin [facility] Current Inpatient Medications: Current Inpatient Medications Medications (Trade) Dose Ordered Sig/Mehdi Route Start Time Stop Time Status Last Admin Dose Admin Acetaminophen (Tylenol Tab) 650 mg Q4H PRN PO 08/11/17 16:45 09/10/17 16:44 08/16/17 20:31 650 MG Ondansetron HCl (Zofran Inj) 4 mg Q6H PRN IV 08/11/17 16:45 09/10/17 16:44 08/20/17 12:26 4 MG Polyethylene (Miralax Powder Packet) 17 gm DAILY PRN PO 08/11/17 16:45 09/10/17 16:44 Brinzolamide (Azopt) 1 drops BID OPB 08/11/17 21:30 09/10/17 21:29 08/20/17 20:17 1 DROPS Calcitriol (Rocaltrol Cap) 0.25 mcg DAILY PO 08/12/17 09:00 09/11/17 08:59 08/20/17 07:42 0.25 MCG Docusate Sodium (coLACE CAP) 100 mg BID PO 08/11/17 21:30 09/10/17 21:29 08/20/17 20:17 100 MG Donepezil HCl (Aricept Tab) 10 mg HS PO 08/11/17 21:30 09/10/17 21:29 08/20/17 20:17 10 MG Salmeterol Xinafoate/ Fluticasone (Advair Diskus 250/50 Inh) 1 puff BID INH 08/11/17 21:30 09/10/17 21:29 08/20/17 20:16 1 PUFF Fluticasone Propionate (Flonase Nasal [place]) 1 sprays BID PAULIE 08/11/17 21:30 09/10/17 21:29 08/20/17 20:16 1 SPRAYS Hydralazine HCl (Apresoline Tab) 10 mg BID PO 08/11/17 21:30 09/10/17 21:29 08/20/17 20:18 10 MG Levothyroxine Sodium (Synthroid Tab) 75 mcg DAILYBB PO 08/12/17 06:00 09/11/17 05:59 08/20/17 06:43 75 MCG Loratadine (Claritin Tab) 10 mg DAILY PO 08/12/17 09:00 09/11/17 08:59 08/20/17 07:41 10 MG Nitroglycerin (Nitrostat Tab) 0.4 mg UD PRN SL 08/11/17 21:30 09/10/17 21:29 Oxybutynin Chloride (Ditropan-Xl Tab) 5 mg DAILY PO 08/12/17 09:00 09/11/17 08:59 08/20/17 07:41 5 MG Pantoprazole Sodium (Protonix Tab) 40 mg DAILY PO 08/12/17 09:00 09/11/17 08:59 08/20/17 07:41 40 MG Miscellaneous Information (Order Awaiting Action) 1 ea QS N/A 08/12/17 00:00 09/11/17 00:00 Albuterol (Ventolin Hfa Inhaler) 2 puffs Q6H PRN INH 08/11/17 21:30 09/10/17 21:29 Ferrous Sulfate (Feosol Tab) 325 mg BIDM PO 08/12/17 07:30 09/11/17 07:29 08/20/17 17:17 325 MG Pravastatin Sodium (Pravachol Tab) 80 mg HS PO 08/11/17 21:30 09/10/17 21:29 08/20/17 20:17 80 MG Albuterol Sulfate (Ventolin 0.083% 2.5MG/3ML Neb) 2.5 mg Q4H PRN INH 08/12/17 09:00 09/11/17 08:59 08/13/17 10:35 2.5 MG Ipratropium [place] (Atrovent 0.02% 0.5MG/2.5ML Neb) 0.5 mg Q4R PRN INH 08/13/17 11:00 09/12/17 10:59 08/18/17 23:05 0.5 MG Levalbuterol (Xopenex 1.25MG/ 0.5ML Neb) 1.25 mg Q4R PRN INH 08/13/17 11:00 09/12/17 10:59 08/18/17 23:06 1.25 MG Lactobacillus Acidophilus (Floranex Tab) 4 tab TIDM PO 08/14/17 16:45 09/13/17 16:44 08/20/17 17:17 4 TAB Metoprolol Succinate (Toprol Xl Tab) 25 mg QAM PO 08/16/17 09:00 09/15/17 08:59 08/20/17 07:42 25 MG Ipratropium [place] (Atrovent 0.02% 0.5MG/2.5ML Neb) 0.5 mg Q6R INH 08/15/17 10:00 09/14/17 09:59 08/20/17 19:01 0.5 MG Levalbuterol (Xopenex 0.63 Mg/ 3 Ml Neb) 0.63 mg Q6R INH 08/15/17 10:00 09/14/17 09:59 08/20/17 19:01 0.63 MG Aztreonam (Consult) 1 ea UD PRN N/A 08/15/17 11:45 09/14/17 11:44 Doxycycline Hyclate (Vibramycin Cap) 100 mg BID PO 08/15/17 21:00 08/22/17 20:59 08/20/17 20:17 100 MG Aztreonam 1000 mg/ Dextrose 110 ml @ 110 mls/hr Q8H IV 08/15/17 20:00 08/22/17 19:59 08/20/17 20:16 110 MLS/HR Tramadol HCl (Ultram Tab) 50 mg Q8H PRN PO 08/18/17 10:30 09/17/17 10:29 08/19/17 16:50 50 MG Warfarin Sodium (Coumadin Tab) 5 mg DAILY@16 PO 08/20/17 16:00 09/12/17 15:59 08/20/17 17:17 5 MG
[2017-08-21] VITALS (19 sets, daily range): BP systolic 113–149; BP diastolic 52–81; PULSE 48–73; TEMP 36.2–37.2; O2SAT 87–98
[2017-08-21] MEDS: IPRATROPIUM BROMIDE NEB SOLN 0.02% 2.5 ML VIAL INH SCH ×3 (01:28→19:06)
[2017-08-21] MEDS: LEVALBUTEROL 0.63MG/3 ML NEB INH SCH ×3 (01:28→19:06)
[2017-08-21] MEDS: AZTREONAM IV 1,000 MG in DEXTROSE 5% 100ML IV SCH ×3 (04:42→20:34)
[2017-08-21 05:46] LABS: BASO % 1.3 %; BASO ABS # 0.06 K/uL (0-0.2); COMPLETE YES; EOS % 4.7 %; HEMATOCRIT 32.7 % (37-47); LYMPH % 24.4 %; LYMPH ABS # 1.14 K/uL (1.2-3.4); MEAN CELL VOLUME 101.6 fL (80-100); MEAN CORPUSCULAR HEMOGLOBIN 31.1 pg (25-34); MEAN CORPUSCULAR HGB CONC 30.6 g/dl (32-36); MEAN PLATELET VOLUME 11.5 fL (7.4-10.4); MONO % 12.6 %; PLATELET COUNT 163 K/uL (130-400); RED BLOOD COUNT 3.22 M/uL (4.2-5.4); WHITE BLOOD COUNT 4.68 K/uL (4.8-10.8)
[2017-08-21 06:00] LABS: INR 1.9 (0.9-1.1); PROTHROMBIN TIME (PATIENT) 21.4 SECONDS (9.0-12.0)
[2017-08-21] MEDS: LEVOTHYROXINE 75 MCG TAB PO SCH (06:18)
[2017-08-21 06:21] LABS: BUN/CREATININE RATIO 48.6 (10-20); CALCIUM 8.9 mg/dl (8.5-10.1); CREATININE 1.7 mg/dl (0.60-1.20); POTASSIUM 4.5 mmol/L (3.5-5.1)
[2017-08-21] MEDS: LEVALBUTEROL 1.25MG/0.5ML NEB INH PRN ×2 (07:17→14:04)
[2017-08-21] MEDS: INCRUSE ELLIPTA~ORDER AWAITING ACTION SCH ×2 (08:00)
[2017-08-21] MEDS: FLUTICASONE/SALMETEROL 250/50 (ADVAIR) 14 PUFF/1 INHALER INH SCH ×2 (08:11→20:42)
[2017-08-21] MEDS: BRINZOLAMIDE (AZOPT) OPS 10 ML BTL OPB SCH ×2 (08:11→20:35)
[2017-08-21] MEDS: FLUTICASONE PROPIONATE NA SPR 16 GM BTL NAE SCH ×2 (08:11→20:35)
[2017-08-21] MEDS: LORATADINE 10 MG TAB PO SCH (08:12)
[2017-08-21] MEDS: METOPROLOL SUCC 25MG EXT REL TAB PO SCH (08:12)
[2017-08-21] MEDS: OXYBUTYNIN CHLORIDE 5 MG TABCR PO SCH (08:13)
[2017-08-21] MEDS: PANTOprazole SOD 40 MG TAB PO SCH (08:13)
[2017-08-21] MEDS: CALCITRIOL 0.25 MCG CAP PO SCH (08:13)
[2017-08-21] MEDS: HydrALAZINE 10 MG TAB PO SCH ×2 (08:14→20:34)
[2017-08-21] MEDS: DOXYCYCLINE HYCLATE 100 MG CAP PO SCH ×2 (08:14→20:34)
[2017-08-21] MEDS: DOCUSATE SODIUM 100 MG CAP PO SCH ×2 (08:14→20:34)
[2017-08-21] MEDS: LACTOBACILLUS ACIDOPHILUS (FLORANEX) TAB PO SCH ×3 (08:15→16:35)
[2017-08-21] MEDS ORDERED: BUMETANIDE 1 MG TAB PO SCH (09:00)
[2017-08-21] MEDS: FERROUS SULFATE 325 MG TAB PO SCH ×2 (09:16→16:33)
[2017-08-21] MEDS: ONDANSETRON INJ 2 MG/ML 2 ML VIAL IV PRN (09:41)
--- NOTE | 2017-08-21 11:04 | Progress Note ---
Subjective Date of Service: Aug 21, 2017. Subjective Pt evaluation today including: conversation w/ patient, physical exam, lab review, review of studies, review of inpatient medication list Saw/examined the patient in room 201 She's doing well, seated in a chair; she states her breathing is at baseline Denies chest pain, no distress States she is weak and wants to get back to walking Problem List Medical Problems: (1) Acute kidney injury Status: Acute (2) Atrial flutter Status: Acute (3) Back pain Status: Acute (4) Bilateral knee pain Status: Acute (5) CHF (congestive heart failure) Status: Acute (6) CHF exacerbation Status: Acute (7) Closed head injury Status: Acute (8) Concussion Status: Acute (9) COPD exacerbation Status: Acute (10) Fall Status: Acute (11) Hyperkalemia Status: Acute (12) Hypoxia Status: Acute (13) Lower extremity edema Status: Acute (14) Peripheral edema Status: Acute (15) Pneumonia Status: Acute (16) Pneumonia involving right lung Status: Acute (17) Sciatica Status: Acute (18) Seizure Status: Acute (19) Sepsis Status: Acute (20) Subtherapeutic international normalized ratio (INR) Status: Acute (21) Weakness Status: Acute Review of Systems Constitutional: + weakness, No fever, No chills Respiratory: + shortness of breath (at baseline), No cough, No sputum, No wheezing, No dyspnea on exertion, No dyspnea at rest, No hemoptysis Cardiac: No chest pain Abdomen: No pain, No nausea, No vomiting, No diarrhea Medications Current Inpatient Medications Medications (Trade) Dose Ordered Sig/Mehdi Route Start Time Stop Time Status Last Admin Dose Admin Acetaminophen (Tylenol Tab) 650 mg Q4H PRN PO 08/11/17 16:45 09/10/17 16:44 08/16/17 20:31 650 MG Ondansetron HCl (Zofran Inj) 4 mg Q6H PRN IV 08/11/17 16:45 09/10/17 16:44 08/21/17 09:41 4 MG Polyethylene (Miralax Powder Packet) 17 gm DAILY PRN PO 08/11/17 16:45 09/10/17 16:44 Brinzolamide (Azopt) 1 drops BID OPB 08/11/17 21:30 09/10/17 21:29 08/21/17 08:11 1 DROPS Calcitriol (Rocaltrol Cap) 0.25 mcg DAILY PO 08/12/17 09:00 09/11/17 08:59 08/21/17 08:13 0.25 MCG Docusate Sodium (coLACE CAP) 100 mg BID PO 08/11/17 21:30 09/10/17 21:29 08/21/17 08:14 100 MG Donepezil HCl (Aricept Tab) 10 mg HS PO 08/11/17 21:30 09/10/17 21:29 08/20/17 20:17 10 MG Salmeterol Xinafoate/ Fluticasone (Advair Diskus 250/50 Inh) 1 puff BID INH 08/11/17 21:30 09/10/17 21:29 08/21/17 08:11 1 PUFF Fluticasone Propionate (Flonase Nasal [place]) 1 sprays BID PAULIE 08/11/17 21:30 09/10/17 21:29 08/21/17 08:11 1 SPRAYS Hydralazine HCl (Apresoline Tab) 10 mg BID PO 08/11/17 21:30 09/10/17 21:29 08/21/17 08:14 10 MG Levothyroxine Sodium (Synthroid Tab) 75 mcg DAILYBB PO 08/12/17 06:00 09/11/17 05:59 08/21/17 06:18 75 MCG Loratadine (Claritin Tab) 10 mg DAILY PO 08/12/17 09:00 09/11/17 08:59 08/21/17 08:12 10 MG Nitroglycerin (Nitrostat Tab) 0.4 mg UD PRN SL 08/11/17 21:30 09/10/17 21:29 Oxybutynin Chloride (Ditropan-Xl Tab) 5 mg DAILY PO 08/12/17 09:00 09/11/17 08:59 08/21/17 08:13 5 MG Pantoprazole Sodium (Protonix Tab) 40 mg DAILY PO 08/12/17 09:00 09/11/17 08:59 08/21/17 08:13 40 MG Miscellaneous Information (Order Awaiting Action) 1 ea QS N/A 08/12/17 00:00 09/11/17 00:00 Albuterol (Ventolin Hfa Inhaler) 2 puffs Q6H PRN INH 08/11/17 21:30 09/10/17 21:29 Ferrous Sulfate (Feosol Tab) 325 mg BIDM PO 08/12/17 07:30 09/11/17 07:29 08/21/17 09:16 325 MG Pravastatin Sodium (Pravachol Tab) 80 mg HS PO 08/11/17 21:30 09/10/17 21:29 08/20/17 20:17 80 MG Albuterol Sulfate (Ventolin 0.083% 2.5MG/3ML Neb) 2.5 mg Q4H PRN INH 08/12/17 09:00 09/11/17 08:59 08/13/17 10:35 2.5 MG Ipratropium [place] (Atrovent 0.02% 0.5MG/2.5ML Neb) 0.5 mg Q4R PRN INH 08/13/17 11:00 09/12/17 10:59 08/18/17 23:05 0.5 MG Levalbuterol (Xopenex 1.25MG/ 0.5ML Neb) 1.25 mg Q4R PRN INH 08/13/17 11:00 09/12/17 10:59 08/21/17 07:17 1.25 MG Lactobacillus Acidophilus (Floranex Tab) 4 tab TIDM PO 08/14/17 16:45 09/13/17 16:44 08/21/17 08:15 4 TAB Metoprolol Succinate (Toprol Xl Tab) 25 mg QAM PO 08/16/17 09:00 09/15/17 08:59 08/20/17 07:42 25 MG Ipratropium [place] (Atrovent 0.02% 0.5MG/2.5ML Neb) 0.5 mg Q6R INH 08/15/17 10:00 09/14/17 09:59 08/21/17 07:17 0.5 MG Levalbuterol (Xopenex 0.63 Mg/ 3 Ml Neb) 0.63 mg Q6R INH 08/15/17 10:00 09/14/17 09:59 08/21/17 01:28 0.63 MG Aztreonam (Consult) 1 ea UD PRN N/A 08/15/17 11:45 09/14/17 11:44 Doxycycline Hyclate (Vibramycin Cap) 100 mg BID PO 08/15/17 21:00 08/22/17 20:59 08/21/17 08:14 100 MG Aztreonam 1000 mg/ Dextrose 110 ml @ 110 mls/hr Q8H IV 08/15/17 20:00 08/22/17 19:59 08/21/17 04:42 110 MLS/HR Tramadol HCl (Ultram Tab) 50 mg Q8H PRN PO 08/18/17 10:30 09/17/17 10:29 08/19/17 16:50 50 MG Warfarin Sodium (Coumadin Tab) 5 mg DAILY@16 PO 08/20/17 16:00 09/12/17 15:59 08/20/17 17:17 5 MG Objective Vital Signs Date Time Temp Pulse Resp B/P (MAP) Pulse Ox O2 Delivery O2 Flow Rate FiO2 08/21/17 08:00 87 Nasal Cannula 3.0 08/21/17 07:51 36.8 48 18 113/71 (85) 97 08/21/17 07:17 52 18 90 Nasal Cannula 4.0 08/21/17 05:27 48 94 40 08/21/17 04:33 52 94 40 08/21/17 04:00 96 BiPAP 50 08/21/17 03:56 36.4 63 19 125/52 (76) 94 BiPAP 40 08/21/17 01:29 48 18 92 BiPAP/CPAP 40 08/21/17 01:29 49 92 40 08/21/17 00:00 89 BiPAP 50 08/20/17 23:42 36.5 57 18 116/55 (75) 91 CPAP 08/20/17 22:55 49 96 40 08/20/17 20:00 91 Nasal Cannula 4.0 08/20/17 19:03 51 18 91 Nasal Cannula 4.0 08/20/17 18:47 36.7 51 16 124/85 (98) 92 Nasal Cannula 4.0 08/20/17 16:00 94 Nasal Cannula 4.0 08/20/17 15:14 36.4 48 16 128/73 (91) 90 Nasal Cannula 4.0 08/20/17 14:31 58 18 94 Nasal Cannula 4.0 08/20/17 12:00 91 Nasal Cannula 3.0 08/20/17 11:49 36.9 59 16 142/61 (88) 55 Physical Exam General Appearance: no apparent distress Respiratory/Chest: chest non-tender, lungs clear, normal breath sounds, no respiratory distress, no accessory muscle use Cardiovascular: regular rate, rhythm, no murmur Extremities: + pedal edema, + swelling (+1 pitting edema) Laboratory Results Last 24 Hours Test 08/21/17 05:10 White Blood Count 4.68 K/uL Red Blood Count 3.22 M/uL Hemoglobin 10.0 g/dL Hematocrit 32.7 % Mean Corpuscular Volume 101.6 fL Mean Corpuscular Hemoglobin 31.1 pg Mean Corpuscular Hemoglobin Concent 30.6 g/dl Platelet Count 163 K/uL Mean Platelet Volume 11.5 fL Neutrophils (%) (Auto) 57.0 % Lymphocytes (%) (Auto) 24.4 % Monocytes (%) (Auto) 12.6 % Eosinophils (%) (Auto) 4.7 % Basophils (%) (Auto) 1.3 % Neutrophils # (Auto) 2.67 K/uL Lymphocytes # (Auto) 1.14 K/uL Monocytes # (Auto) 0.59 K/uL Eosinophils # (Auto) 0.22 K/uL Basophils # (Auto) 0.06 K/uL RDW Standard Deviation 56.3 fL RDW Coefficient of Variation 15.0 % Immature Granulocyte % (Auto) 0.0 % Immature Granulocyte # (Auto) 0.00 K/uL Prothrombin Time 21.4 SECONDS Prothromb Time International Ratio 1.9 Sodium Level 140 mmol/L Potassium Level 4.5 mmol/L Chloride Level 101 mmol/L Carbon Dioxide Level 34 mmol/L Anion Gap 5.0 mmol/L Blood Urea Nitrogen 83 mg/dl Creatinine 1.70 mg/dl Est Creatinine Clear Calc Drug Dose 26.7 ml/min Estimated GFR () 34.3 Estimated GFR (Non- 29.6 BUN/Creatinine Ratio 48.6 Random Glucose 82 mg/dl Calcium Level 8.9 mg/dl Assessment and Plan This is a 71 year old female with a PMH of severe COPD and chronic respiratory failure on 3L O2 continuously at baseline, chronic right sided heart failure/ cor pulmonale with preserved EF, CKD stage IV, Hx. of A. Fib/A flutter and multiple arrhythmias s/p pacemaker-defibrillator implantation, hx. of NSVT, HTN , DM2, anemia of chronic disease/iron deficiency presented with worsening lower extremity edema Acute on Chronic Respiratory Failure Acute COPD exacerbation possibly a combination of COPD, pneumonia, CHF appreciate pulmonology input bipap nocturnally will continue abx. therapy for pneumonia Advair + nebs ambulate in [facility] outpatient pulmonology - sleep study Acute on Chronic Right Sided Heart Failure patient presented with worsening lower extremity edema Bumex was initially held due to kidney function worsening restarted at an alternating dose of 1mg and 2mg creatinine today is at 1.7 restart diuretics as per cardiology Recurrent, Hospital Acquired Pneumonia patient has had recent hospital admission with pneumonia CXR during this admission suggests a R basilar infiltrate currently on Aztreonam + Doxycycline Acute Kidney Injury superimposed on CKD stage IV creatinine on admission up to 2.2 it is now down to 1.7 - which is near baseline restart diuretics as per cardiology Syncope in the setting of NSVT 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 of tachy-james - she has a pacemaker-defibrillator implanted Hx. of A. Fib currently in sinus rhythm continue Coumadin with INR goal of 2-3 Bilateral Lower Extremity Cellulitis patient with peripheral vascular disease, chronic edema secondary to R heart failure/cor pulmonale erythematous/edematous lower extremities - now on Aztreonam + Doxycycline will need rehab; PT/OT Right Elbow and Wrist Pain likely sprained continue PT/OT DVT ppx Coumadin FULL CODE
--- NOTE | 2017-08-21 13:15 | Cardiology Follow-Up ---
Subjective General Date of Service: Aug 21, 2017. Pt evaluation today including: conversation w/ patient, physical exam, chart review, lab review, review of studies, review of inpatient medication list History of Present Illness The patient is a 71 year old female seen in follow-up. Patient feels better from a cardiovascular standpoint. No extremity edema unchanged. Denies chest pain or unusual shortness of breath. Reports feeling fatigued and weak. Spent majority of the morning sitting in a chair. Allergies Coded Allergies: Levofloxacin (Verified Allergy, Intermediate, HIVES, 01/25/17) Quinolones (Verified Allergy, Intermediate, HIVES, 01/25/17) Ranitidine (Verified Allergy, Intermediate, HIVES, 01/25/17) Sulfamethoxazole (Verified Allergy, Intermediate, HIVES, 01/25/17) Trimethoprim (Verified Allergy, Intermediate, HIVES, 01/25/17) Clarithromycin (Verified Allergy, Mild, HIVES, CAN TAKE ZITHROMAX W/O PROB , 01/25/17) Amoxicillin (Verified Allergy, Unknown, HIVES, 01/25/17) Omeprazole (Verified Allergy, Unknown, HAS HAD PROTONIX, 01/25/17) Social History Smoking Status: Former Smoker Hx Tobacco Use In Past Year?: No Hx Alcohol Use - Type And Amou: No Hx Substance Use - Type And Am: Yes Problem List Medical Problems: (1) Acute kidney injury Status: Acute (2) Atrial flutter Status: Acute (3) Back pain Status: Acute (4) Bilateral knee pain Status: Acute (5) CHF (congestive heart failure) Status: Acute (6) CHF exacerbation Status: Acute (7) Closed head injury Status: Acute (8) Concussion Status: Acute (9) COPD exacerbation Status: Acute (10) Fall Status: Acute (11) Hyperkalemia Status: Acute (12) Hypoxia Status: Acute (13) Lower extremity edema Status: Acute (14) Peripheral edema Status: Acute (15) Pneumonia Status: Acute (16) Pneumonia involving right lung Status: Acute (17) Sciatica Status: Acute (18) Seizure Status: Acute (19) Sepsis Status: Acute (20) Subtherapeutic international normalized ratio (INR) Status: Acute (21) Weakness Status: Acute Review of Systems Respiratory: + cough, + shortness of breath, + dyspnea on exertion, No sputum, No wheezing, No dyspnea at rest, No hemoptysis Cardiac: + edema, No chest pain, No orthopnea, No PND, No claudication, No palpitations Physical Exam Vital Signs Last Vital Signs Documentation Date Time Temp Pulse Resp B/P (MAP) Pulse Ox O2 Delivery O2 Flow Rate FiO2 08/21/17 11:33 36.5 55 18 117/81 (93) 98 08/21/17 08:00 Nasal Cannula 3.0 08/21/17 05:27 40 Physical Exam Constitutional: General Apperance: overweight Level of Distress: chronically ill Head: normocephalic Lungs: Auscultation: no wheezing, no rales/crackles, no rhonchi Cardiovascular: Heart Auscultation: RRR, normal S1, normal S2, I/ WSM Peripheral Pulses: Radial Pulse: normal on the right Abdomen: Bowel Sounds: normal Inspection & Palpation: soft, non-distended, no tenderness, guarding & rebound Extremities: no cyanosis, edema Neurologic: Cranial Nerves: grossly intact Assessment and Plan Assessment and Plan FINAL IMPRESSION: 1. 71-year-old female initially admitted with acute on chronic decompensated diastolic and right sided heart failure. -Patient appears fairly compensated with mild pretibial edema 2. Nonsustained ventricular tachycardia -EP input appreciated -S/p loop recorder implantation 08/16/2017 -No recurrence overnight 3. Lower extremity cellulitis - resolving 4. 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 5. Subtherapeutic INR. 6. Acute on chronic renal insufficiency -- renal function stable 7. Severe oxygen dependent chronic obstructive pulmonary disease with hypercapnia now requiring BiPAP nightly. PLAN AND RECOMMENDATIONS: Restart Bumex at reduce dose - 1mg daily. Repeat BMP in a.m. Outpatient Loop recorder follow up scheduled. Continue Toprol-XL 25 mg daily. Antibiotics per IM. Laboratory Results Last 24 Hours Test 08/21/17 05:10 White Blood Count 4.68 K/uL Red Blood Count 3.22 M/uL Hemoglobin 10.0 g/dL Hematocrit 32.7 % Mean Corpuscular Volume 101.6 fL Mean Corpuscular Hemoglobin 31.1 pg Mean Corpuscular Hemoglobin Concent 30.6 g/dl Platelet Count 163 K/uL Mean Platelet Volume 11.5 fL Neutrophils (%) (Auto) 57.0 % Lymphocytes (%) (Auto) 24.4 % Monocytes (%) (Auto) 12.6 % Eosinophils (%) (Auto) 4.7 % Basophils (%) (Auto) 1.3 % Neutrophils # (Auto) 2.67 K/uL Lymphocytes # (Auto) 1.14 K/uL Monocytes # (Auto) 0.59 K/uL Eosinophils # (Auto) 0.22 K/uL Basophils # (Auto) 0.06 K/uL RDW Standard Deviation 56.3 fL RDW Coefficient of Variation 15.0 % Immature Granulocyte % (Auto) 0.0 % Immature Granulocyte # (Auto) 0.00 K/uL Prothrombin Time 21.4 SECONDS Prothromb Time International Ratio 1.9 Sodium Level 140 mmol/L Potassium Level 4.5 mmol/L Chloride Level 101 mmol/L Carbon Dioxide Level 34 mmol/L Anion Gap 5.0 mmol/L Blood Urea Nitrogen 83 mg/dl Creatinine 1.70 mg/dl Est Creatinine Clear Calc Drug Dose 26.7 ml/min Estimated GFR () 34.3 Estimated GFR (Non- 29.6 BUN/Creatinine Ratio 48.6 Random Glucose 82 mg/dl Calcium Level 8.9 mg/dl
[2017-08-21] MEDS: IPRATROPIUM BROMIDE NEB SOLN 0.02% 2.5 ML VIAL INH PRN (14:04)
[2017-08-21] MEDS: WARFARIN SOD 5 MG TAB PO SCH (16:34)
[2017-08-21] MEDS: PRAVASTATIN SOD 40 MG TAB PO SCH (20:33)
[2017-08-21] MEDS: DONEPEZIL HCL 10 MG TAB PO SCH (20:34)
[2017-08-21] MEDS: UMECLIDINIUM BROMIDE 62.5MCG/INH INH SCH (20:36)
[2017-08-22] VITALS (16 sets, daily range): BP systolic 135–139; BP diastolic 55–75; PULSE 50–72; TEMP 36.5–37.2; O2SAT 91–95
[2017-08-22] MEDS: IPRATROPIUM BROMIDE NEB SOLN 0.02% 2.5 ML VIAL INH SCH ×4 (01:45→19:00)
[2017-08-22] MEDS: LEVALBUTEROL 0.63MG/3 ML NEB INH SCH ×4 (01:45→19:00)
[2017-08-22] MEDS: AZTREONAM IV 1,000 MG in DEXTROSE 5% 100ML IV SCH ×2 (04:08→11:35)
[2017-08-22] MEDS: LEVOTHYROXINE 75 MCG TAB PO SCH (05:38)
[2017-08-22 05:44] LABS: HEMATOCRIT 30.8 % (37-47); MEAN CELL VOLUME 99.7 fL (80-100); MEAN CORPUSCULAR HEMOGLOBIN 31.1 pg (25-34); MEAN CORPUSCULAR HGB CONC 31.2 g/dl (32-36); MEAN PLATELET VOLUME 11.4 fL (7.4-10.4); PLATELET COUNT 166 K/uL (130-400); RED BLOOD COUNT 3.09 M/uL (4.2-5.4); WHITE BLOOD COUNT 5.22 K/uL (4.8-10.8)
[2017-08-22 05:53] LABS: INR 2.4 (0.9-1.1); PROTHROMBIN TIME (PATIENT) 26.2 SECONDS (9.0-12.0)
[2017-08-22 06:12] LABS: BUN/CREATININE RATIO 49.6 (10-20); CALCIUM 8.9 mg/dl (8.5-10.1); CREATININE 1.5 mg/dl (0.60-1.20); POTASSIUM 4.4 mmol/L (3.5-5.1)
[2017-08-22] MEDS: LACTOBACILLUS ACIDOPHILUS (FLORANEX) TAB PO SCH ×3 (07:30→15:41)
[2017-08-22] MEDS: ONDANSETRON INJ 2 MG/ML 2 ML VIAL IV PRN (08:04)
[2017-08-22] MEDS: FERROUS SULFATE 325 MG TAB PO SCH ×2 (08:11→15:40)
[2017-08-22] MEDS: FLUTICASONE/SALMETEROL 250/50 (ADVAIR) 14 PUFF/1 INHALER INH SCH ×2 (08:14→19:46)
[2017-08-22] MEDS: UMECLIDINIUM BROMIDE 62.5MCG/INH INH SCH (08:15)
[2017-08-22] MEDS: FLUTICASONE PROPIONATE NA SPR 16 GM BTL NAE SCH ×2 (08:15→19:46)
[2017-08-22] MEDS: BRINZOLAMIDE (AZOPT) OPS 10 ML BTL OPB SCH ×2 (08:16→19:47)
[2017-08-22] MEDS: HydrALAZINE 10 MG TAB PO SCH ×2 (08:17→19:49)
[2017-08-22] MEDS: BUMETANIDE 1 MG TAB PO SCH (08:18)
[2017-08-22] MEDS: LORATADINE 10 MG TAB PO SCH (08:19)
[2017-08-22] MEDS: DOCUSATE SODIUM 100 MG CAP PO SCH ×2 (08:19→19:49)
[2017-08-22] MEDS: OXYBUTYNIN CHLORIDE 5 MG TABCR PO SCH (08:21)
[2017-08-22] MEDS: PANTOprazole SOD 40 MG TAB PO SCH (08:22)
[2017-08-22] MEDS: CALCITRIOL 0.25 MCG CAP PO SCH (08:24)
[2017-08-22] MEDS: METOPROLOL SUCC 25MG EXT REL TAB PO SCH (08:26)
[2017-08-22] MEDS: DOXYCYCLINE HYCLATE 100 MG CAP PO SCH (08:27)
--- NOTE | 2017-08-22 15:00 | Cardiology Follow-Up ---
Subjective General Date of Service: Aug 22, 2017. Pt evaluation today including: conversation w/ patient, physical exam, chart review, lab review, review of studies, conversation w/ trousseau consultant, review of inpatient medication list History of Present Illness The patient is a 71 year old female seen in follow-up. No dysrhythmias on telemetry overnight. Patient reports fatigue and weakness. No chest discomfort or shortness of breath. Lower extremity edema is controlled. Allergies Coded Allergies: Levofloxacin (Verified Allergy, Intermediate, HIVES, 01/25/17) Quinolones (Verified Allergy, Intermediate, HIVES, 01/25/17) Ranitidine (Verified Allergy, Intermediate, HIVES, 01/25/17) Sulfamethoxazole (Verified Allergy, Intermediate, HIVES, 01/25/17) Trimethoprim (Verified Allergy, Intermediate, HIVES, 01/25/17) Clarithromycin (Verified Allergy, Mild, HIVES, CAN TAKE ZITHROMAX W/O PROB , 01/25/17) Amoxicillin (Verified Allergy, Unknown, HIVES, 01/25/17) Omeprazole (Verified Allergy, Unknown, HAS HAD PROTONIX, 01/25/17) Social History Smoking Status: Former Smoker Hx Tobacco Use In Past Year?: No Hx Alcohol Use - Type And Amou: No Hx Substance Use - Type And Am: Yes Problem List Medical Problems: (1) Acute kidney injury Status: Acute (2) Atrial flutter Status: Acute (3) Back pain Status: Acute (4) Bilateral knee pain Status: Acute (5) CHF (congestive heart failure) Status: Acute (6) CHF exacerbation Status: Acute (7) Closed head injury Status: Acute (8) Concussion Status: Acute (9) COPD exacerbation Status: Acute (10) Fall Status: Acute (11) Hyperkalemia Status: Acute (12) Hypoxia Status: Acute (13) Lower extremity edema Status: Acute (14) Peripheral edema Status: Acute (15) Pneumonia Status: Acute (16) Pneumonia involving right lung Status: Acute (17) Sciatica Status: Acute (18) Seizure Status: Acute (19) Sepsis Status: Acute (20) Subtherapeutic international normalized ratio (INR) Status: Acute (21) Weakness Status: Acute Review of Systems Respiratory: + shortness of breath, + dyspnea on exertion, No cough, No sputum , No wheezing, No dyspnea at rest, No hemoptysis Cardiac: + edema, No chest pain, No orthopnea, No PND, No claudication, No palpitations Physical Exam Vital Signs Last Vital Signs Documentation Date Time Temp Pulse Resp B/P (MAP) Pulse Ox O2 Delivery O2 Flow Rate FiO2 08/22/17 12:00 91 Nasal Cannula 3.0 08/22/17 11:44 37.2 57 18 138/62 (87) 08/22/17 04:00 40 Physical Exam Constitutional: General Apperance: overweight Level of Distress: chronically ill Head: normocephalic Lungs: Auscultation: no wheezing, no rales/crackles, no rhonchi Cardiovascular: Heart Auscultation: RRR, normal S1, normal S2, I/ WSM Peripheral Pulses: Radial Pulse: normal on the right Abdomen: Bowel Sounds: normal Inspection & Palpation: soft, non-distended, no tenderness, guarding & rebound Extremities: no cyanosis, edema (trace to mild bilateral pedal edema.) Neurologic: Cranial Nerves: grossly intact Assessment and Plan Assessment and Plan FINAL IMPRESSION: 1. 71-year-old female initially admitted with acute on chronic decompensated diastolic and right sided heart failure. -Patient appears fairly compensated with trace to mild mild pedal edema 2. Nonsustained ventricular tachycardia -EP input appreciated -S/p loop recorder implantation 08/16/2017 -No recurrence overnight 3. Lower extremity cellulitis - resolving 4. 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 - therapeutic INR. 6. Acute on chronic renal insufficiency -- renal function stable 7. Severe oxygen dependent chronic obstructive pulmonary disease with hypercapnia now requiring BiPAP nightly. PLAN AND RECOMMENDATIONS: Continue Bumex at reduced dose : 1mg daily. Outpatient Loop recorder follow up scheduled. Continue Toprol-XL 25 mg daily. Antibiotics per IM. No further cardiac testing at this time. Will sign off. Please call with questions. Laboratory Results Last 24 Hours Test 08/22/17 05:14 White Blood Count 5.22 K/uL Red Blood Count 3.09 M/uL Hemoglobin 9.6 g/dL Hematocrit 30.8 % Mean Corpuscular Volume 99.7 fL Mean Corpuscular Hemoglobin 31.1 pg Mean Corpuscular Hemoglobin Concent 31.2 g/dl RDW Standard Deviation 54.6 fL RDW Coefficient of Variation 15.2 % Platelet Count 166 K/uL Mean Platelet Volume 11.4 fL Prothrombin Time 26.2 SECONDS Prothromb Time International Ratio 2.4 Sodium Level 141 mmol/L Potassium Level 4.4 mmol/L Chloride Level 102 mmol/L Carbon Dioxide Level 33 mmol/L Anion Gap 6.0 mmol/L Blood Urea Nitrogen 74 mg/dl Creatinine 1.50 mg/dl Est Creatinine Clear Calc Drug Dose 30.2 ml/min Estimated GFR () 39.9 Estimated GFR (Non- 34.4 BUN/Creatinine Ratio 49.6 Random Glucose 97 mg/dl Calcium Level 8.9 mg/dl
[2017-08-22] MEDS: WARFARIN SOD 5 MG TAB PO SCH (15:40)
[2017-08-22] MEDS: PRAVASTATIN SOD 40 MG TAB PO SCH (19:49)
[2017-08-22] MEDS: DONEPEZIL HCL 10 MG TAB PO SCH (19:49)
[2017-08-22] MEDS ORDERED: LEVALBUTEROL/IPRATROPIUM NEB INH STA (22:36)
--- NOTE | 2017-08-22 22:58 | DIAGNOSTIC IMAGING REPORT ---
CHEST ONE VIEW PORTABLE HISTORY: worsening hypoxemia COMPARISON: Chest 08/18/2017. FINDINGS: Rotated study. Right lower lobe airspace opacity and a small right pleural effusion persist.. No change in the mild pulmonary edema. The heart remains enlarged. No pneumothorax. IMPRESSION: 1. Right lower lobe airspace opacity and a small right pleural effusion persist. 2. No change in the cardiomegaly and mild pulmonary edema. Electronically signed by: Rishi Shook M.D. 08/22/2017 10:57 PM Dictated Date/Time: 08/22/2017 10:56 PM
[2017-08-22] MEDS ORDERED: IPRATROPIUM BROMIDE NEB SOLN 0.02% 2.5 ML VIAL INH ONE (23:00)
[2017-08-22] MEDS ORDERED: METHYLPREDNISOLONE IV 40 MG in SYRINGE 0 ML IV ONE (23:00)
[2017-08-22] MEDS ORDERED: LEVALBUTEROL 1.25MG/0.5ML NEB INH ONE (23:00)
--- NOTE | 2017-08-22 23:05 | Progress Note ---
Subjective Date of Service: Aug 22, 2017. Subjective Pt evaluation today including: conversation w/ patient, physical exam, lab review, review of studies, review of inpatient medication list Saw/examined the patient in room 201 Doing well this morning No breathing issues; no chest pain Problem List Medical Problems: (1) Acute kidney injury Status: Acute (2) Atrial flutter Status: Acute (3) Back pain Status: Acute (4) Bilateral knee pain Status: Acute (5) CHF (congestive heart failure) Status: Acute (6) CHF exacerbation Status: Acute (7) Closed head injury Status: Acute (8) Concussion Status: Acute (9) COPD exacerbation Status: Acute (10) Fall Status: Acute (11) Hyperkalemia Status: Acute (12) Hypoxia Status: Acute (13) Lower extremity edema Status: Acute (14) Peripheral edema Status: Acute (15) Pneumonia Status: Acute (16) Pneumonia involving right lung Status: Acute (17) Sciatica Status: Acute (18) Seizure Status: Acute (19) Sepsis Status: Acute (20) Subtherapeutic international normalized ratio (INR) Status: Acute (21) Weakness Status: Acute Review of Systems Constitutional: No fever, No chills Respiratory: No cough, No sputum, No wheezing, No shortness of breath, No dyspnea on exertion, No dyspnea at rest, No hemoptysis Cardiac: No chest pain Medications Current Inpatient Medications Medications (Trade) Dose Ordered Sig/Mehdi Route Start Time Stop Time Status Last Admin Dose Admin Acetaminophen (Tylenol Tab) 650 mg Q4H PRN PO 08/11/17 16:45 09/10/17 16:44 08/16/17 20:31 650 MG Ondansetron HCl (Zofran Inj) 4 mg Q6H PRN IV 08/11/17 16:45 09/10/17 16:44 08/22/17 08:04 4 MG Polyethylene (Miralax Powder Packet) 17 gm DAILY PRN PO 08/11/17 16:45 09/10/17 16:44 Brinzolamide (Azopt) 1 drops BID OPB 08/11/17 21:30 09/10/17 21:29 08/22/17 19:47 1 DROPS Calcitriol (Rocaltrol Cap) 0.25 mcg DAILY PO 08/12/17 09:00 09/11/17 08:59 08/22/17 08:24 0.25 MCG Docusate Sodium (coLACE CAP) 100 mg BID PO 08/11/17 21:30 09/10/17 21:29 08/22/17 19:49 100 MG Donepezil HCl (Aricept Tab) 10 mg HS PO 08/11/17 21:30 09/10/17 21:29 08/22/17 19:49 10 MG Salmeterol Xinafoate/ Fluticasone (Advair Diskus 250/50 Inh) 1 puff BID INH 08/11/17 21:30 09/10/17 21:29 08/22/17 19:46 1 PUFF Fluticasone Propionate (Flonase Nasal [place]) 1 sprays BID PAULIE 08/11/17 21:30 09/10/17 21:29 08/22/17 19:46 1 SPRAYS Hydralazine HCl (Apresoline Tab) 10 mg BID PO 08/11/17 21:30 09/10/17 21:29 08/22/17 19:49 10 MG Levothyroxine Sodium (Synthroid Tab) 75 mcg DAILYBB PO 08/12/17 06:00 09/11/17 05:59 08/22/17 05:38 75 MCG Loratadine (Claritin Tab) 10 mg DAILY PO 08/12/17 09:00 09/11/17 08:59 08/22/17 08:19 10 MG Nitroglycerin (Nitrostat Tab) 0.4 mg UD PRN SL 08/11/17 21:30 09/10/17 21:29 Oxybutynin Chloride (Ditropan-Xl Tab) 5 mg DAILY PO 08/12/17 09:00 09/11/17 08:59 08/22/17 08:21 5 MG Pantoprazole Sodium (Protonix Tab) 40 mg DAILY PO 08/12/17 09:00 09/11/17 08:59 08/22/17 08:22 40 MG Albuterol (Ventolin Hfa Inhaler) 2 puffs Q6H PRN INH 08/11/17 21:30 09/10/17 21:29 Ferrous Sulfate (Feosol Tab) 325 mg BIDM PO 08/12/17 07:30 09/11/17 07:29 08/22/17 15:40 325 MG Pravastatin Sodium (Pravachol Tab) 80 mg HS PO 08/11/17 21:30 09/10/17 21:29 08/22/17 19:49 80 MG Albuterol Sulfate (Ventolin 0.083% 2.5MG/3ML Neb) 2.5 mg Q4H PRN INH 08/12/17 09:00 09/11/17 08:59 08/13/17 10:35 2.5 MG Ipratropium [place] (Atrovent 0.02% 0.5MG/2.5ML Neb) 0.5 mg Q4R PRN INH 08/13/17 11:00 09/12/17 10:59 08/21/17 14:04 0.5 MG Levalbuterol (Xopenex 1.25MG/ 0.5ML Neb) 1.25 mg Q4R PRN INH 08/13/17 11:00 09/12/17 10:59 08/21/17 14:04 1.25 MG Lactobacillus Acidophilus (Floranex Tab) 4 tab TIDM PO 08/14/17 16:45 09/13/17 16:44 08/22/17 15:41 4 TAB Metoprolol Succinate (Toprol Xl Tab) 25 mg QAM PO 08/16/17 09:00 09/15/17 08:59 08/22/17 08:26 25 MG Ipratropium [place] (Atrovent 0.02% 0.5MG/2.5ML Neb) 0.5 mg Q6R INH 08/15/17 10:00 09/14/17 09:59 08/22/17 19:00 0.5 MG Levalbuterol (Xopenex 0.63 Mg/ 3 Ml Neb) 0.63 mg Q6R INH 08/15/17 10:00 09/14/17 09:59 08/22/17 19:00 0.63 MG Aztreonam (Consult) 1 ea UD PRN N/A 08/15/17 11:45 09/14/17 11:44 Tramadol HCl (Ultram Tab) 50 mg Q8H PRN PO 08/18/17 10:30 09/17/17 10:29 08/19/17 16:50 50 MG Warfarin Sodium (Coumadin Tab) 5 mg DAILY@16 PO 08/20/17 16:00 09/12/17 15:59 08/22/17 15:40 5 MG Bumetanide (Bumex Tab) 1 mg QAM PO 08/22/17 09:00 09/21/17 08:59 08/22/17 08:18 1 MG Methylprednisolone Sodium Succinate 40 mg/Syringe 0.64 ml @ 1.5 mls/min 2300 ONCE IV 08/22/17 23:00 08/22/17 23:01 Ipratropium [place] (Atrovent 0.02% 0.5MG/2.5ML Neb) 0.5 mg ONE ONCE INH 08/22/17 23:00 08/22/17 23:01 Levalbuterol (Xopenex 1.25MG/ 0.5ML Neb) 1.25 mg ONE ONCE INH 08/22/17 23:00 08/22/17 23:01 Objective Vital Signs Date Time Temp Pulse Resp B/P (MAP) Pulse Ox O2 Delivery O2 Flow Rate FiO2 08/22/17 22:55 54 92 50 08/22/17 22:33 63 93 50 08/22/17 20:20 37.0 62 20 138/65 (89) 91 Nasal Cannula 5.0 08/22/17 20:00 92 Nasal Cannula 3.0 08/22/17 19:01 72 18 91 Nasal Cannula 4.5 08/22/17 16:00 Nasal Cannula 3.0 08/22/17 15:39 65 18 95 Nasal Cannula 4.0 08/22/17 15:28 36.9 53 22 139/57 (84) 91 Nasal Cannula 4.0 08/22/17 12:00 91 Nasal Cannula 3.0 08/22/17 11:44 37.2 57 18 138/62 (87) 94 Nasal Cannula 4.0 08/22/17 08:59 92 Nasal Cannula 4.0 08/22/17 08:46 37.2 66 19 135/57 (83) 92 Nasal Cannula 4.0 08/22/17 08:00 Nasal Cannula 3.0 08/22/17 07:07 67 18 93 Nasal Cannula 4.0 08/22/17 04:00 BiPAP 40 08/22/17 03:48 36.6 56 14 137/75 (95) 94 BiPAP 08/22/17 01:45 65 18 95 BiPAP/CPAP 40 08/22/17 00:15 Nasal Cannula 4.0 08/21/17 23:42 36.2 73 18 149/61 (90) 90 BiPAP 40 08/21/17 23:10 59 91 40 Physical Exam General Appearance: no apparent distress ENT: hearing grossly normal Respiratory/Chest: no respiratory distress, no accessory muscle use, + decreased breath sounds Cardiovascular: regular rate, rhythm, no edema, no murmur Laboratory Results Last 24 Hours Test 08/22/17 05:14 08/22/17 22:39 White Blood Count 5.22 K/uL Red Blood Count 3.09 M/uL Hemoglobin 9.6 g/dL Hematocrit 30.8 % Mean Corpuscular Volume 99.7 fL Mean Corpuscular Hemoglobin 31.1 pg Mean Corpuscular Hemoglobin Concent 31.2 g/dl RDW Standard Deviation 54.6 fL RDW Coefficient of Variation 15.2 % Platelet Count 166 K/uL Mean Platelet Volume 11.4 fL Prothrombin Time 26.2 SECONDS Prothromb Time International Ratio 2.4 Sodium Level 141 mmol/L Potassium Level 4.4 mmol/L Chloride Level 102 mmol/L Carbon Dioxide Level 33 mmol/L Anion Gap 6.0 mmol/L Blood Urea Nitrogen 74 mg/dl Creatinine 1.50 mg/dl Est Creatinine Clear Calc Drug Dose 30.2 ml/min Estimated GFR () 39.9 Estimated GFR (Non- 34.4 BUN/Creatinine Ratio 49.6 Random Glucose 97 mg/dl Calcium Level 8.9 mg/dl Assessment and Plan This is a 71 year old female with a PMH of severe COPD and chronic respiratory failure on 3L O2 continuously at baseline, chronic right sided heart failure/ cor pulmonale with preserved EF, CKD stage IV, Hx. of A. Fib/A flutter and multiple arrhythmias s/p pacemaker-defibrillator implantation, hx. of NSVT, HTN , DM2, anemia of chronic disease/iron deficiency presented with worsening lower extremity edema Acute on Chronic Respiratory Failure Acute COPD exacerbation 08/22 continue antibiotics continue Advair; nebs 08/21 possibly a combination of COPD, pneumonia, CHF appreciate pulmonology input bipap nocturnally will continue abx. therapy for pneumonia Advair + nebs ambulate in [facility] outpatient pulmonology - sleep study Acute on Chronic Right Sided Heart Failure 08/22 restarted Bumex as per cardiology at 1mg daily 08/21 patient presented with worsening lower extremity edema Bumex was initially held due to kidney function worsening restarted at an alternating dose of 1mg and 2mg creatinine today is at 1.7 restart diuretics as per cardiology Recurrent, Hospital Acquired Pneumonia patient has had recent hospital admission with pneumonia CXR during this admission suggests a R basilar infiltrate currently on Aztreonam + Doxycycline Acute Kidney Injury superimposed on CKD stage IV creatinine on admission up to 2.2 it is now down to 1.7 - which is near baseline restart diuretics as per cardiology Syncope in the setting of NSVT 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 of tachy-james - she has a pacemaker-defibrillator implanted Hx. of A. Fib currently in sinus rhythm continue Coumadin with INR goal of 2-3 Bilateral Lower Extremity Cellulitis patient with peripheral vascular disease, chronic edema secondary to R heart failure/cor pulmonale erythematous/edematous lower extremities - now on Aztreonam + Doxycycline will need rehab; PT/OT Right Elbow and Wrist Pain likely sprained continue PT/OT DVT ppx Coumadin FULL CODE
[2017-08-22 23:20] LABS: ALLEN TEST POS (POS); ARTERIAL BLD GAS O2 SATURATION 93.5 % (90-95); ARTERIAL BLOOD GAS BASE EXCESS 8.7 mEq/L (-9-1.8); ARTERIAL BLOOD GAS HCO3 35 mmol/L (19-24); ARTERIAL BLOOD GAS PO2 78 mm/Hg (80-95); ARTERIAL BLOOD GAS pH 7.38 (7.35-7.45); O2 ADMINISTRATION 50%
[2017-08-22] MEDS ORDERED: FUROSEMIDE INJ 60 MG in SYRINGE 0 ML IV ONE (23:30)
[2017-08-22 23:37] LABS: BUN/CREATININE RATIO 45.5 (10-20); CALCIUM 9.4 mg/dl (8.5-10.1); CREATININE 1.5 mg/dl (0.60-1.20); MAGNESIUM 2.2 mg/dl (1.8-2.4); POTASSIUM 4.7 mmol/L (3.5-5.1)
[2017-08-23] VITALS (13 sets, daily range): BP systolic 125–150; BP diastolic 59–80; PULSE 53–76; TEMP 36.7–37.2; O2SAT 87–95
[2017-08-23] MEDS: IPRATROPIUM BROMIDE NEB SOLN 0.02% 2.5 ML VIAL INH SCH ×4 (01:49→18:47)
[2017-08-23] MEDS: LEVALBUTEROL 0.63MG/3 ML NEB INH SCH ×4 (01:49→18:47)
[2017-08-23] MEDS: TRAMADOL HCL 50 MG TAB PO PRN (03:52)
[2017-08-23] MEDS: LEVOTHYROXINE 75 MCG TAB PO SCH (05:43)
[2017-08-23 06:02] LABS: HEMATOCRIT 34.9 % (37-47); MEAN CELL VOLUME 99.1 fL (80-100); MEAN CORPUSCULAR HEMOGLOBIN 29.3 pg (25-34); MEAN CORPUSCULAR HGB CONC 29.5 g/dl (32-36); MEAN PLATELET VOLUME 11.9 fL (7.4-10.4); PLATELET COUNT 185 K/uL (130-400); RED BLOOD COUNT 3.52 M/uL (4.2-5.4); WHITE BLOOD COUNT 4.11 K/uL (4.8-10.8)
[2017-08-23 06:12] LABS: INR 2.9 (0.9-1.1); PROTHROMBIN TIME (PATIENT) 32.9 SECONDS (9.0-12.0)
[2017-08-23 06:31] LABS: BUN/CREATININE RATIO 50.2 (10-20); CALCIUM 9.4 mg/dl (8.5-10.1); CREATININE 1.4 mg/dl (0.60-1.20); POTASSIUM 4.7 mmol/L (3.5-5.1)
[2017-08-23] MEDS: LACTOBACILLUS ACIDOPHILUS (FLORANEX) TAB PO SCH ×3 (07:33→16:38)
[2017-08-23] MEDS: BUMETANIDE 1 MG TAB PO SCH (07:33)
[2017-08-23] MEDS: FLUTICASONE/SALMETEROL 250/50 (ADVAIR) 14 PUFF/1 INHALER INH SCH ×2 (07:33→19:51)
[2017-08-23] MEDS: FERROUS SULFATE 325 MG TAB PO SCH ×2 (07:33→16:37)
[2017-08-23] MEDS: HydrALAZINE 10 MG TAB PO SCH ×2 (07:34→19:54)
[2017-08-23] MEDS: FLUTICASONE PROPIONATE NA SPR 16 GM BTL NAE SCH ×2 (07:34→19:52)
[2017-08-23] MEDS: BRINZOLAMIDE (AZOPT) OPS 10 ML BTL OPB SCH ×2 (07:34→19:53)
[2017-08-23] MEDS: UMECLIDINIUM BROMIDE 62.5MCG/INH INH SCH (07:34)
[2017-08-23] MEDS: OXYBUTYNIN CHLORIDE 5 MG TABCR PO SCH (07:35)
[2017-08-23] MEDS: PANTOprazole SOD 40 MG TAB PO SCH (07:35)
[2017-08-23] MEDS: LORATADINE 10 MG TAB PO SCH (07:35)
[2017-08-23] MEDS: DOCUSATE SODIUM 100 MG CAP PO SCH ×2 (07:35→19:55)
[2017-08-23] MEDS: METOPROLOL SUCC 25MG EXT REL TAB PO SCH (07:36)
[2017-08-23] MEDS: CALCITRIOL 0.25 MCG CAP PO SCH (07:36)
--- NOTE | 2017-08-23 11:25 | Progress Note ---
Subjective Date of Service: Aug 23, 2017. Subjective Pt evaluation today including: conversation w/ patient, physical exam, lab review, review of studies, review of inpatient medication list Saw/examined the patient in room 201 She feels fine, tells me she is not short of breath, no chest pain Became hypoxic at night; and currently in the lower 90s with oxymask on Problem List Medical Problems: (1) Acute kidney injury Status: Acute (2) Atrial flutter Status: Acute (3) Back pain Status: Acute (4) Bilateral knee pain Status: Acute (5) CHF (congestive heart failure) Status: Acute (6) CHF exacerbation Status: Acute (7) Closed head injury Status: Acute (8) Concussion Status: Acute (9) COPD exacerbation Status: Acute (10) Fall Status: Acute (11) Hyperkalemia Status: Acute (12) Hypoxia Status: Acute (13) Lower extremity edema Status: Acute (14) Peripheral edema Status: Acute (15) Pneumonia Status: Acute (16) Pneumonia involving right lung Status: Acute (17) Sciatica Status: Acute (18) Seizure Status: Acute (19) Sepsis Status: Acute (20) Subtherapeutic international normalized ratio (INR) Status: Acute (21) Weakness Status: Acute Review of Systems Constitutional: No fever, No chills Respiratory: No cough, No sputum, No shortness of breath Cardiac: No chest pain, No edema, No palpitations Medications Current Inpatient Medications Medications (Trade) Dose Ordered Sig/Mehdi Route Start Time Stop Time Status Last Admin Dose Admin Acetaminophen (Tylenol Tab) 650 mg Q4H PRN PO 08/11/17 16:45 09/10/17 16:44 08/16/17 20:31 650 MG Ondansetron HCl (Zofran Inj) 4 mg Q6H PRN IV 08/11/17 16:45 09/10/17 16:44 08/22/17 08:04 4 MG Polyethylene (Miralax Powder Packet) 17 gm DAILY PRN PO 08/11/17 16:45 09/10/17 16:44 Brinzolamide (Azopt) 1 drops BID OPB 08/11/17 21:30 09/10/17 21:29 08/23/17 07:34 1 DROPS Calcitriol (Rocaltrol Cap) 0.25 mcg DAILY PO 08/12/17 09:00 09/11/17 08:59 08/23/17 07:36 0.25 MCG Docusate Sodium (coLACE CAP) 100 mg BID PO 08/11/17 21:30 09/10/17 21:29 08/23/17 07:35 100 MG Donepezil HCl (Aricept Tab) 10 mg HS PO 08/11/17 21:30 09/10/17 21:29 08/22/17 19:49 10 MG Salmeterol Xinafoate/ Fluticasone (Advair Diskus 250/50 Inh) 1 puff BID INH 08/11/17 21:30 09/10/17 21:29 08/23/17 07:33 1 PUFF Fluticasone Propionate (Flonase Nasal [place]) 1 sprays BID PAULIE 08/11/17 21:30 09/10/17 21:29 08/23/17 07:34 1 SPRAYS Hydralazine HCl (Apresoline Tab) 10 mg BID PO 08/11/17 21:30 09/10/17 21:29 08/23/17 07:34 10 MG Levothyroxine Sodium (Synthroid Tab) 75 mcg DAILYBB PO 08/12/17 06:00 09/11/17 05:59 08/23/17 05:43 75 MCG Loratadine (Claritin Tab) 10 mg DAILY PO 08/12/17 09:00 09/11/17 08:59 08/23/17 07:35 10 MG Nitroglycerin (Nitrostat Tab) 0.4 mg UD PRN SL 08/11/17 21:30 09/10/17 21:29 Oxybutynin Chloride (Ditropan-Xl Tab) 5 mg DAILY PO 08/12/17 09:00 09/11/17 08:59 08/23/17 07:35 5 MG Pantoprazole Sodium (Protonix Tab) 40 mg DAILY PO 08/12/17 09:00 09/11/17 08:59 08/23/17 07:35 40 MG Albuterol (Ventolin Hfa Inhaler) 2 puffs Q6H PRN INH 08/11/17 21:30 09/10/17 21:29 Ferrous Sulfate (Feosol Tab) 325 mg BIDM PO 08/12/17 07:30 09/11/17 07:29 08/23/17 07:33 325 MG Pravastatin Sodium (Pravachol Tab) 80 mg HS PO 08/11/17 21:30 09/10/17 21:29 08/22/17 19:49 80 MG Albuterol Sulfate (Ventolin 0.083% 2.5MG/3ML Neb) 2.5 mg Q4H PRN INH 08/12/17 09:00 09/11/17 08:59 08/13/17 10:35 2.5 MG Ipratropium [place] (Atrovent 0.02% 0.5MG/2.5ML Neb) 0.5 mg Q4R PRN INH 08/13/17 11:00 09/12/17 10:59 08/21/17 14:04 0.5 MG Levalbuterol (Xopenex 1.25MG/ 0.5ML Neb) 1.25 mg Q4R PRN INH 08/13/17 11:00 09/12/17 10:59 08/21/17 14:04 1.25 MG Lactobacillus Acidophilus (Floranex Tab) 4 tab TIDM PO 08/14/17 16:45 09/13/17 16:44 08/23/17 07:33 4 TAB Metoprolol Succinate (Toprol Xl Tab) 25 mg QAM PO 08/16/17 09:00 09/15/17 08:59 08/23/17 07:36 25 MG Ipratropium [place] (Atrovent 0.02% 0.5MG/2.5ML Neb) 0.5 mg Q6R INH 08/15/17 10:00 09/14/17 09:59 08/23/17 06:55 0.5 MG Levalbuterol (Xopenex 0.63 Mg/ 3 Ml Neb) 0.63 mg Q6R INH 08/15/17 10:00 09/14/17 09:59 08/23/17 06:55 0.63 MG Tramadol HCl (Ultram Tab) 50 mg Q8H PRN PO 08/18/17 10:30 09/17/17 10:29 08/23/17 03:52 50 MG Warfarin Sodium (Coumadin Tab) 5 mg DAILY@16 PO 08/20/17 16:00 09/12/17 15:59 08/22/17 15:40 5 MG Bumetanide (Bumex Tab) 1 mg QAM PO 08/22/17 09:00 09/21/17 08:59 08/23/17 07:33 1 MG Bumetanide (Bumex Tab) 1 mg NOW ONCE PO 08/23/17 11:30 08/23/17 11:31 Objective Vital Signs Date Time Temp Pulse Resp B/P (MAP) Pulse Ox O2 Delivery O2 Flow Rate FiO2 08/23/17 08:00 Oxymask 8.0 08/23/17 07:14 53 18 91 BiPAP/CPAP 70 08/23/17 07:07 36.7 60 21 139/59 (85) 91 BiPAP 08/23/17 04:00 93 BiPAP 70 08/23/17 03:35 36.7 64 14 131/80 (97) 92 BiPAP 08/23/17 01:49 71 18 92 BiPAP/CPAP 50 08/22/17 23:59 93 BiPAP 50 08/22/17 23:15 36.5 50 20 138/55 (82) 95 BiPAP 08/22/17 22:55 54 92 50 08/22/17 22:33 63 93 50 08/22/17 20:20 37.0 62 20 138/65 (89) 91 Nasal Cannula 5.0 08/22/17 20:00 92 Nasal Cannula 3.0 08/22/17 19:01 72 18 91 Nasal Cannula 4.5 08/22/17 16:00 Nasal Cannula 3.0 08/22/17 15:39 65 18 95 Nasal Cannula 4.0 08/22/17 15:28 36.9 53 22 139/57 (84) 91 Nasal Cannula 4.0 08/22/17 12:00 91 Nasal Cannula 3.0 08/22/17 11:44 37.2 57 18 138/62 (87) 94 Nasal Cannula 4.0 Physical Exam General Appearance: no apparent distress Respiratory/Chest: no respiratory distress, no accessory muscle use, + decreased breath sounds Cardiovascular: regular rate, rhythm, no edema, no murmur Abdomen: normal bowel sounds, non tender, soft Laboratory Results Last 24 Hours Test 08/22/17 23:06 08/23/17 05:22 08/23/17 05:24 Arterial Blood pH 7.38 Arterial Blood Partial Pressure CO2 61 mmHg Arterial Blood Partial Pressure O2 78 mm/Hg Arterial Blood HCO3 35 mmol/L Arterial Blood Oxygen Saturation 93.5 % Arterial Blood Base Excess 8.7 mEq/L Arterial Blood Gas Delivery 50% Aditya Test POS Sodium Level 140 mmol/L 140 mmol/L Potassium Level 4.7 mmol/L 4.7 mmol/L Chloride Level 102 mmol/L 100 mmol/L Carbon Dioxide Level 33 mmol/L 35 mmol/L Anion Gap 5.0 mmol/L 5.0 mmol/L Blood Urea Nitrogen 68 mg/dl 70 mg/dl Creatinine 1.50 mg/dl 1.40 mg/dl Est Creatinine Clear Calc Drug Dose 29.5 ml/min 31.6 ml/min Estimated GFR () 39.9 43.4 Estimated GFR (Non- 34.4 37.4 BUN/Creatinine Ratio 45.5 50.2 Random Glucose 100 mg/dl 124 mg/dl Calcium Level 9.4 mg/dl 9.4 mg/dl Magnesium Level 2.2 mg/dl Prothrombin Time 32.9 SECONDS Prothromb Time International Ratio 2.9 White Blood Count 4.11 K/uL Red Blood Count 3.52 M/uL Hemoglobin 10.3 g/dL Hematocrit 34.9 % Mean Corpuscular Volume 99.1 fL Mean Corpuscular Hemoglobin 29.3 pg Mean Corpuscular Hemoglobin Concent 29.5 g/dl RDW Standard Deviation 54.3 fL RDW Coefficient of Variation 15.1 % Platelet Count 185 K/uL Mean Platelet Volume 11.9 fL Assessment and Plan This is a 71 year old female with a PMH of severe COPD and chronic respiratory failure on 3L O2 continuously at baseline, chronic right sided heart failure/ cor pulmonale with preserved EF, CKD stage IV, Hx. of A. Fib/A flutter and multiple arrhythmias s/p pacemaker-defibrillator implantation, hx. of NSVT, HTN , DM2, anemia of chronic disease/iron deficiency presented with worsening lower extremity edema Acute on Chronic Respiratory Failure Acute COPD exacerbation 08/23 given a dose of solu-medrol last evening no wheezing at this time, continue nebs and Advair for now 08/22 continue antibiotics continue Advair; nebs 08/21 possibly a combination of COPD, pneumonia, CHF appreciate pulmonology input bipap nocturnally will continue abx. therapy for pneumonia Advair + nebs ambulate in [facility] outpatient pulmonology - sleep study Acute on Chronic Right Sided Heart Failure 08/23 was given Lasix last evening give an extra dose of Bumex today wean O2 back to 3L via [place] plan to d/c to [facility] if we can get her back to her baseline O2 08/22 restarted Bumex as per cardiology at 1mg daily 08/21 patient presented with worsening lower extremity edema Bumex was initially held due to kidney function worsening restarted at an alternating dose of 1mg and 2mg creatinine today is at 1.7 restart diuretics as per cardiology Recurrent, Hospital Acquired Pneumonia patient has had recent hospital admission with pneumonia CXR during this admission suggests a R basilar infiltrate currently on Aztreonam + Doxycycline Acute Kidney Injury superimposed on CKD stage IV creatinine on admission up to 2.2 it is now down to 1.7 - which is near baseline restart diuretics as per cardiology Syncope in the setting of NSVT Hx. of Tachy-Ronan Syndrome s/p pacemaker s/p Loop Recorder implantation this admission monitor for NSVT hx. of tachy-ronan - she has a pacemaker-defibrillator implanted Hx. of A. Fib currently in sinus rhythm continue Coumadin with INR goal of 2-3 Bilateral Lower Extremity Cellulitis patient with peripheral vascular disease, chronic edema secondary to R heart failure/cor pulmonale erythematous/edematous lower extremities - now on Aztreonam + Doxycycline will need rehab; PT/OT Right Elbow and Wrist Pain likely sprained continue PT/OT DVT ppx Coumadin FULL CODE
[2017-08-23] MEDS ORDERED: BUMETANIDE 1 MG TAB PO ONE (11:30)
[2017-08-23] MEDS: ONDANSETRON INJ 2 MG/ML 2 ML VIAL IV PRN (14:10)
[2017-08-23] MEDS: WARFARIN SOD 5 MG TAB PO SCH (16:37)
[2017-08-23] MEDS: DONEPEZIL HCL 10 MG TAB PO SCH (19:55)
[2017-08-23] MEDS: PRAVASTATIN SOD 40 MG TAB PO SCH (19:56)
[2017-08-24] VITALS (13 sets, daily range): BP systolic 126–159; BP diastolic 62–77; PULSE 46–72; TEMP 36.3–36.8; O2SAT 90–98
[2017-08-24] MEDS: IPRATROPIUM BROMIDE NEB SOLN 0.02% 2.5 ML VIAL INH SCH ×5 (01:55→20:51)
[2017-08-24] MEDS: LEVALBUTEROL 0.63MG/3 ML NEB INH SCH ×4 (01:55→20:51)
[2017-08-24] MEDS: LEVOTHYROXINE 75 MCG TAB PO SCH (05:22)
[2017-08-24 05:56] LABS: HEMATOCRIT 31.7 % (37-47); MEAN CELL VOLUME 98.8 fL (80-100); MEAN CORPUSCULAR HEMOGLOBIN 31.5 pg (25-34); MEAN CORPUSCULAR HGB CONC 31.9 g/dl (32-36); MEAN PLATELET VOLUME 11.9 fL (7.4-10.4); PLATELET COUNT 170 K/uL (130-400); RED BLOOD COUNT 3.21 M/uL (4.2-5.4)
[2017-08-24 06:17] LABS: BUN/CREATININE RATIO 46.1 (10-20); CALCIUM 9.5 mg/dl (8.5-10.1); CREATININE 1.5 mg/dl (0.60-1.20); MAGNESIUM 2.3 mg/dl (1.8-2.4); POTASSIUM 4.1 mmol/L (3.5-5.1)
[2017-08-24 06:20] LABS: PROTHROMBIN TIME (PATIENT) 41.5 SECONDS (9.0-12.0)
[2017-08-24 06:27] LABS: INR 3.7 (0.9-1.1)
[2017-08-24] MEDS: LACTOBACILLUS ACIDOPHILUS (FLORANEX) TAB PO SCH ×3 (07:30→16:07)
[2017-08-24] MEDS ORDERED: BUMETANIDE 1 MG TAB PO ONE (08:15)
--- NOTE | 2017-08-24 09:25 | Progress Note ---
Subjective Date of Service: Aug 24, 2017. Subjective Pt evaluation today including: conversation w/ patient, physical exam, lab review, review of studies, review of inpatient medication list Saw/examined the patient in room 201 She's doing well, breathing status is at baseline She feels no shortness of breath or chest pain +weakness Agreeable to plan for [facility] Problem List Medical Problems: (1) Acute kidney injury Status: Acute (2) Atrial flutter Status: Acute (3) Back pain Status: Acute (4) Bilateral knee pain Status: Acute (5) CHF (congestive heart failure) Status: Acute (6) CHF exacerbation Status: Acute (7) Closed head injury Status: Acute (8) Concussion Status: Acute (9) COPD exacerbation Status: Acute (10) Fall Status: Acute (11) Hyperkalemia Status: Acute (12) Hypoxia Status: Acute (13) Lower extremity edema Status: Acute (14) Peripheral edema Status: Acute (15) Pneumonia Status: Acute (16) Pneumonia involving right lung Status: Acute (17) Sciatica Status: Acute (18) Seizure Status: Acute (19) Sepsis Status: Acute (20) Subtherapeutic international normalized ratio (INR) Status: Acute (21) Weakness Status: Acute Review of Systems Constitutional: No fever, No chills Respiratory: No shortness of breath Cardiac: No chest pain Medications Current Inpatient Medications Medications (Trade) Dose Ordered Sig/Mehdi Route Start Time Stop Time Status Last Admin Dose Admin Acetaminophen (Tylenol Tab) 650 mg Q4H PRN PO 08/11/17 16:45 09/10/17 16:44 08/16/17 20:31 650 MG Ondansetron HCl (Zofran Inj) 4 mg Q6H PRN IV 08/11/17 16:45 09/10/17 16:44 08/23/17 14:10 4 MG Polyethylene (Miralax Powder Packet) 17 gm DAILY PRN PO 08/11/17 16:45 09/10/17 16:44 Brinzolamide (Azopt) 1 drops BID OPB 08/11/17 21:30 09/10/17 21:29 08/23/17 19:53 1 DROPS Calcitriol (Rocaltrol Cap) 0.25 mcg DAILY PO 08/12/17 09:00 09/11/17 08:59 08/23/17 07:36 0.25 MCG Docusate Sodium (coLACE CAP) 100 mg BID PO 08/11/17 21:30 09/10/17 21:29 08/23/17 19:55 100 MG Donepezil HCl (Aricept Tab) 10 mg HS PO 08/11/17 21:30 09/10/17 21:29 08/23/17 19:55 10 MG Salmeterol Xinafoate/ Fluticasone (Advair Diskus 250/50 Inh) 1 puff BID INH 08/11/17 21:30 09/10/17 21:29 08/23/17 19:51 1 PUFF Fluticasone Propionate (Flonase Nasal [place]) 1 sprays BID PAULIE 08/11/17 21:30 09/10/17 21:29 08/23/17 19:52 1 SPRAYS Hydralazine HCl (Apresoline Tab) 10 mg BID PO 08/11/17 21:30 09/10/17 21:29 08/23/17 19:54 10 MG Levothyroxine Sodium (Synthroid Tab) 75 mcg DAILYBB PO 08/12/17 06:00 09/11/17 05:59 08/24/17 05:22 75 MCG Loratadine (Claritin Tab) 10 mg DAILY PO 08/12/17 09:00 09/11/17 08:59 08/23/17 07:35 10 MG Nitroglycerin (Nitrostat Tab) 0.4 mg UD PRN SL 08/11/17 21:30 09/10/17 21:29 Oxybutynin Chloride (Ditropan-Xl Tab) 5 mg DAILY PO 08/12/17 09:00 09/11/17 08:59 08/23/17 07:35 5 MG Pantoprazole Sodium (Protonix Tab) 40 mg DAILY PO 08/12/17 09:00 09/11/17 08:59 08/23/17 07:35 40 MG Albuterol (Ventolin Hfa Inhaler) 2 puffs Q6H PRN INH 08/11/17 21:30 09/10/17 21:29 Ferrous Sulfate (Feosol Tab) 325 mg BIDM PO 08/12/17 07:30 09/11/17 07:29 08/23/17 16:37 325 MG Pravastatin Sodium (Pravachol Tab) 80 mg HS PO 08/11/17 21:30 09/10/17 21:29 08/23/17 19:56 80 MG Albuterol Sulfate (Ventolin 0.083% 2.5MG/3ML Neb) 2.5 mg Q4H PRN INH 08/12/17 09:00 09/11/17 08:59 08/13/17 10:35 2.5 MG Ipratropium [place] (Atrovent 0.02% 0.5MG/2.5ML Neb) 0.5 mg Q4R PRN INH 08/13/17 11:00 09/12/17 10:59 08/21/17 14:04 0.5 MG Levalbuterol (Xopenex 1.25MG/ 0.5ML Neb) 1.25 mg Q4R PRN INH 08/13/17 11:00 09/12/17 10:59 08/21/17 14:04 1.25 MG Lactobacillus Acidophilus (Floranex Tab) 4 tab TIDM PO 08/14/17 16:45 09/13/17 16:44 08/23/17 16:38 4 TAB Metoprolol Succinate (Toprol Xl Tab) 25 mg QAM PO 08/16/17 09:00 09/15/17 08:59 08/23/17 07:36 25 MG Ipratropium [place] (Atrovent 0.02% 0.5MG/2.5ML Neb) 0.5 mg Q6R INH 08/15/17 10:00 09/14/17 09:59 08/24/17 06:50 0.5 MG Levalbuterol (Xopenex 0.63 Mg/ 3 Ml Neb) 0.63 mg Q6R INH 08/15/17 10:00 09/14/17 09:59 08/24/17 06:50 0.63 MG Tramadol HCl (Ultram Tab) 50 mg Q8H PRN PO 08/18/17 10:30 09/17/17 10:29 08/23/17 03:52 50 MG Warfarin Sodium (Coumadin Tab) 5 mg DAILY@16 PO 08/20/17 16:00 09/12/17 15:59 08/23/17 16:37 5 MG Bumetanide (Bumex Tab) 1 mg QAM PO 08/22/17 09:00 09/21/17 08:59 08/23/17 07:33 1 MG Objective Vital Signs Date Time Temp Pulse Resp B/P (MAP) Pulse Ox O2 Delivery O2 Flow Rate FiO2 08/24/17 08:23 36.3 57 25 159/74 (102) 96 BiPAP 50 08/24/17 06:51 54 18 96 BiPAP/CPAP 50 08/24/17 04:26 91 Nasal Cannula 5.0 08/24/17 04:20 36.8 72 20 146/64 (91) 98 BiPAP 08/24/17 01:55 53 19 93 BiPAP/CPAP 50 08/24/17 00:25 91 Nasal Cannula 5.0 08/23/17 23:48 37.0 76 20 150/76 (100) 94 BiPAP 08/23/17 22:17 54 95 50 08/23/17 20:00 91 Nasal Cannula 5.0 08/23/17 18:47 58 21 91 Nasal Cannula 5.0 08/23/17 18:33 37.0 57 16 145/67 (93) 91 Nasal Cannula 5.0 08/23/17 16:00 Oxymask 8.0 08/23/17 15:01 37.1 55 16 125/61 (82) 87 Nasal Cannula 5.0 08/23/17 14:18 56 18 90 Nasal Cannula 5.0 70 08/23/17 12:00 37.2 62 20 130/61 (84) 90 Oxymask 8.0 08/23/17 12:00 Oxymask 8.0 Physical Exam General Appearance: no apparent distress Respiratory/Chest: no respiratory distress, no accessory muscle use, + decreased breath sounds Cardiovascular: regular rate, rhythm, no edema, no murmur Extremities: normal inspection, no pedal edema Laboratory Results Last 24 Hours Test 08/24/17 05:14 White Blood Count 4.80 K/uL Red Blood Count 3.21 M/uL Hemoglobin 10.1 g/dL Hematocrit 31.7 % Mean Corpuscular Volume 98.8 fL Mean Corpuscular Hemoglobin 31.5 pg Mean Corpuscular Hemoglobin Concent 31.9 g/dl RDW Standard Deviation 53.2 fL RDW Coefficient of Variation 15.0 % Platelet Count 170 K/uL Mean Platelet Volume 11.9 fL Prothrombin Time 41.5 SECONDS Prothromb Time International Ratio 3.7 Sodium Level 141 mmol/L Potassium Level 4.1 mmol/L Chloride Level 100 mmol/L Carbon Dioxide Level 35 mmol/L Anion Gap 6.0 mmol/L Blood Urea Nitrogen 69 mg/dl Creatinine 1.50 mg/dl Est Creatinine Clear Calc Drug Dose 29.9 ml/min Estimated GFR () 39.9 Estimated GFR (Non- 34.4 BUN/Creatinine Ratio 46.1 Random Glucose 82 mg/dl Calcium Level 9.5 mg/dl Magnesium Level 2.3 mg/dl Assessment and Plan This is a 71 year old female with a PMH of severe COPD and chronic respiratory failure on 3L O2 continuously at baseline, chronic right sided heart failure/ cor pulmonale with preserved EF, CKD stage IV, Hx. of A. Fib/A flutter and multiple arrhythmias s/p pacemaker-defibrillator implantation, hx. of NSVT, HTN , DM2, anemia of chronic disease/iron deficiency presented with worsening lower extremity edema Acute on Chronic Respiratory Failure Acute COPD exacerbation 08/24 advair and nebulizer for now 08/23 given a dose of solu-medrol last evening no wheezing at this time, continue nebs and Advair for now 08/22 continue antibiotics continue Advair; nebs 08/21 possibly a combination of COPD, pneumonia, CHF appreciate pulmonology input bipap nocturnally will continue abx. therapy for pneumonia Advair + nebs ambulate [facility] outpatient pulmonology - sleep study Acute on Chronic Right Sided Heart Failure 08/24 given an extra dose of Bumex today can d/c with Bumex 1mg daily d/c with the Watson catheter in place 08/23 was given Lasix last evening give an extra dose of Bumex today wean O2 back to 3L via [place] plan to d/c to [facility] if we can get her back to her baseline O2 08/22 restarted Bumex as per cardiology at 1mg daily 08/21 patient presented with worsening lower extremity edema Bumex was initially held due to kidney function worsening restarted at an alternating dose of 1mg and 2mg creatinine today is at 1.7 restart diuretics as per cardiology Recurrent, Hospital Acquired Pneumonia patient has had recent hospital admission with pneumonia CXR during this admission suggests a R basilar infiltrate currently on Aztreonam + Doxycycline Acute Kidney Injury superimposed on CKD stage IV creatinine on admission up to 2.2 it is now down to 1.7 - which is near baseline restart diuretics as per cardiology Syncope in the setting of NSVT 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 of tachy-james - she has a pacemaker-defibrillator implanted Hx. of A. Fib currently in sinus rhythm continue Coumadin with INR goal of 2-3 Bilateral Lower Extremity Cellulitis patient with peripheral vascular disease, chronic edema secondary to R heart failure/cor pulmonale erythematous/edematous lower extremities - now on Aztreonam + Doxycycline will need rehab; PT/OT Right Elbow and Wrist Pain likely sprained continue PT/OT DVT ppx Coumadin FULL CODE
[2017-08-24] MEDS ORDERED: TPRSR/25 PO (09:27)
[2017-08-24] MEDS ORDERED: BUME1TAB PO (09:27)
--- NOTE | 2017-08-24 09:39 | Discharge Instructions ---
Discharge Instructions Date of Service Aug 24, 2017. Admission Reason for Admission: Leg Swelling Discharge Discharge Diagnosis / Problem: Respiratory Failure, COPD, CHF Discharge Goals Goal(s): Decrease discomfort, Improve function, Diagnostic testing, Therapeutic intervention Activity Recommendations Activity Limitations: resume your previous activity . Instructions / Follow-Up Instructions / Follow-Up Patient to be discharged on Bumex 1mg daily (can use 2mg if she is short of breath or oxygen requirements go up) Continue Coumadin with goal INR of 2-3 Recheck PRP and INR in one week Will require at least 3L of O2 via nasal cannula; and at times higher. Bipap or CPAP nocturnally Current Hospital Diet Patient's current hospital diet: Low Sodium Diet (2gm Na) Discharge Diet Recommended Diet: Low Sodium Diet (2gm Na) Fluid Restriction: 1800 ml (7 cups) Pending Studies Studies pending at discharge: no Laboratory Results Lipid Panel Test 08/12/17 05:35 Range/Units Triglycerides Level 73 0-150 mg/dl Cholesterol Level 89 0-200 mg/dl HDL Cholesterol 54 mg/dl Cholesterol/HDL Ratio 1.6 LDL Cholesterol, Calculated 20 mg/dl Medical Emergencies . Who to Call and When: Medical Emergencies: If at any time you feel your situation is an emergency, please call 911 immediately. . Non-Emergent Contact Non-Emergency issues call your: Primary Care Provider . . "Provider Documentation" section prepared by Keyur Swartz. . VTE Core Measure Inpt VTE Proph given/why not?: Warfarin (Coumadin)
--- NOTE | 2017-08-24 09:46 | Discharge Summary ---
Discharge Summary Date of Service Aug 24, 2017. Discharge Summary Admission Date: Aug 11, 2017 at 16:47 Discharge Date: Aug 24, 2017 Discharge Disposition: Rehab Principal Diagnosis: Acute on Chronic respiratory failure Acute on Chronic Right Sided Heart Failure Acute COPD exacerbation NSVT s/p Loop Recorder insertion Pneumonia, recurrent/HCAPs A. Fib on Coumadin Medication Reconciliation Changed Medications: Bumetanide (Bumex) 1 Mg Tab 1 MG PO DAILY for 30 Days, #30 TAB (Changed from: 4XWK; Removed Instructions) Metoprolol Succinate (Metoprolol Succinate ER) 25 Mg Tabcr 25 MG PO DAILY, #15 (Changed from: 12.5 MG) Continued Medications: Albuterol Sulf (Proventil 0.083% 2.5MG/3ML) 2.5 Mg/3 Ml Nebu 2.5 MG INH Q4H PRN for SOB/Wheezing, EA Albuterol Sulfate (Proair Respiclick) 108 Mcg/Act Aer 2 PUFFS INH QID PRN for Shortness of Breath Brinzolamide Oph (Azopt Oph) 1 % Ciara 1 DROP OPB TID Calcitriol (Calcitriol) 0.25 Mcg Cap 0.25 MCG PO DAILY Docusate Sodium (Colace) 100 Mg Cap 100 MG PO BID, #60 CAP Donepezil Hydrochloride (Aricept) 10 Mg Tab 10 MG PO HS Ferrous Sulfate (Iron) 325 Mg Tab 1 TAB PO BID Fluticasone Prop/Salmeterol (Advair Diskus 250/50 60 Dose) 1 Ea Aerp 1 PUFF INH BID, INHALER Fluticasone Propionate (Nasal) (Flonase Allergy Relief) 50 Mcg/Act Spr 1 SPRAY PAULIE BID Gabapentin (Neurontin) 300 Mg Cap 300 MG PO DAILY 1 HOUR BEFORE LUNCH Gabapentin (Neurontin) 300 Mg Cap 600 MG PO AMHS, CAP Home O2 Therapy (Oxygen) Gas 3 LITERS NA CONTINOUS Hydralazine HCl (Hydralazine HCl) 10 Mg Tab 10 MG PO BID, #60 Levothyroxine Sodium (Levothyroxine Sodium) 75 Mcg Tab 75 MCG PO DAILY, #30 Loratadine (Claritin) 10 Mg Tab 10 MG PO DAILY Nitroglycerin (Nitrostat) 0.4 Mg Tab 0.4 MG SL PRN UD, #25 Oxybutynin Chloride (Oxybutynin Chloride Er) 5 Mg Tab 5 MG PO DAILY, #30 Pantoprazole (Pantoprazole Sodium) 40 Mg Tab 40 MG PO DAILY, #30 Pravastatin Sodium (Pravastatin Sodium) 80 Mg Tab 80 MG PO QPM Umeclidinium [place] (Incruse Ellipta) 62.5 Mcg/Inh Inh 1 INHA PO DAILY Warfarin Sodium (Warfarin Sodium) 5 Mg Tab 5 MG PO DAILY Discontinued Medications: Bumetanide (Bumex) 1 Mg Tab 2 MG PO 3XWK, TAB TUES, THUR, SAT Admission Information HPI (per Admitting provider): 71 yo F with h/o CHF on Bumex with recent increase as outpatient presents with worsening of her leg swelling. She was recently admitted 06/08- for pneumonia. She denies any weight gain, chest pain, shortness of breath and has not required an increase of her chronic home oxygen. She reports being compliant with medications. Lives with daughter and has Home Health, who states that she is declining and needs placement but daughter doesn't think so. Denies worsening of cough, but has had cold symptoms for the past 1 week and patient declines taking any OTC medications. Denies sore throat or difficulty swallowing. Reports fevers and chills with Tm 98.6 at home. Denies UTI symptoms. The patient is a very poor historian who does not know her medications and appears to have poor insight into her disease processes. Also, there is frequent combativeness with the daughter who is present at bedside. Physical Exam (per Admitting): General Appearance: no apparent distress, + obese Head: normocephalic, atraumatic Eyes: normal inspection, PERRL, sclerae normal ENT: + pharyngeal erythema (some swelling posterior pharynx, no exudates) Neck: supple, no adenopathy, trachea midline Respiratory/Chest: lungs clear, normal breath sounds, no respiratory distress, no accessory muscle use Cardiovascular: regular rate, rhythm, no edema, no JVD, no murmur, normal peripheral pulses Abdomen/GI: normal bowel sounds, soft, + tenderness Extremities/Musculoskelatal: normal inspection, no pedal edema Neurologic/Psych: alert, normal mood/affect, + pertinent finding ( appropriately answering questions) Skin: normal color Hospital Course This is a 71 year old female with a PMH of severe COPD and chronic respiratory failure on 3L O2 continuously at baseline, chronic right sided heart failure/ cor pulmonale with preserved EF, CKD stage IV, Hx. of A. Fib/A flutter and multiple arrhythmias s/p pacemaker-defibrillator implantation, hx. of NSVT, HTN , DM2, anemia of chronic disease/iron deficiency presented with worsening lower extremity edema Acute on Chronic Respiratory Failure Acute COPD exacerbation 08/27 will d/c to [facility] [place] today Bumex daily lab work (PRP + INR) in one week 08/26 plan is to continue diuretics; Bumex daily wean O2 back to baseline 3L d/c planning to [facility] likely on 08/27 08/25 continue Advair and nebs check CXR 08/24 advair and nebulizer for now 08/23 given a dose of solu-medrol last evening no wheezing at this time, continue nebs and Advair for now 08/22 continue antibiotics continue Advair; nebs 08/21 possibly a combination of COPD, pneumonia, CHF appreciate pulmonology input bipap nocturnally will continue abx. therapy for pneumonia Advair + nebs ambulate in [facility] outpatient pulmonology - sleep study Acute on Chronic Right Sided Heart Failure 08/25 continue Bumex daily plan to d/c to [facility] when bed available 08/24 given an extra dose of Bumex today can d/c with Bumex 1mg daily d/c with the Watson catheter in place 08/23 was given Lasix last evening give an extra dose of Bumex today wean O2 back to 3L via [place] plan to d/c to [facility] if we can get her back to her baseline O2 08/22 restarted Bumex as per cardiology at 1mg daily 08/21 patient presented with worsening lower extremity edema Bumex was initially held due to kidney function worsening restarted at an alternating dose of 1mg and 2mg creatinine today is at 1.7 restart diuretics as per cardiology Recurrent, Hospital Acquired Pneumonia patient has had recent hospital admission with pneumonia CXR during this admission suggests a R basilar infiltrate currently on Aztreonam + Doxycycline Acute Kidney Injury superimposed on CKD stage IV creatinine on admission up to 2.2 it is now down to 1.7 - which is near baseline restart diuretics as per cardiology Syncope in the setting of NSVT 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 of tachy-james - she has a pacemaker-defibrillator implanted Hx. of A. Fib currently in sinus rhythm continue Coumadin with INR goal of 2-3 Bilateral Lower Extremity Cellulitis patient with peripheral vascular disease, chronic edema secondary to R heart failure/cor pulmonale erythematous/edematous lower extremities - now on Aztreonam + Doxycycline will need rehab; PT/OT Right Elbow and Wrist Pain likely sprained continue PT/OT DVT ppx Coumadin FULL CODE Total time spent on discharge = 50 minutes This includes examination of the patient, discharge planning, medication reconciliation, and communication with other providers. Discharge Instructions Patient to be discharged on Bumex 1mg daily (can use 2mg if she is short of breath or oxygen requirements go up) Continue Coumadin with goal INR of 2-3 Will require at least 3L of O2 via nasal cannula; and at times higher. Bipap or CPAP nocturnally
[2017-08-24] MEDS: FERROUS SULFATE 325 MG TAB PO SCH ×2 (10:03→16:06)
[2017-08-24] MEDS: FLUTICASONE PROPIONATE NA SPR 16 GM BTL NAE SCH ×2 (10:04→20:58)
[2017-08-24] MEDS: HydrALAZINE 10 MG TAB PO SCH ×2 (10:04→20:59)
[2017-08-24] MEDS: UMECLIDINIUM BROMIDE 62.5MCG/INH INH SCH (10:04)
[2017-08-24] MEDS: BRINZOLAMIDE (AZOPT) OPS 10 ML BTL OPB SCH ×2 (10:04→20:59)
[2017-08-24] MEDS: FLUTICASONE/SALMETEROL 250/50 (ADVAIR) 14 PUFF/1 INHALER INH SCH ×2 (10:04→20:58)
[2017-08-24] MEDS: BUMETANIDE 1 MG TAB PO SCH (10:06)
[2017-08-24] MEDS: LORATADINE 10 MG TAB PO SCH (10:06)
[2017-08-24] MEDS: DOCUSATE SODIUM 100 MG CAP PO SCH ×2 (10:07→20:59)
[2017-08-24] MEDS: CALCITRIOL 0.25 MCG CAP PO SCH (10:07)
[2017-08-24] MEDS: OXYBUTYNIN CHLORIDE 5 MG TABCR PO SCH (10:07)
[2017-08-24] MEDS: METOPROLOL SUCC 25MG EXT REL TAB PO SCH (10:07)
[2017-08-24] MEDS: PANTOprazole SOD 40 MG TAB PO SCH (10:07)
[2017-08-24] MEDS: ACETAMINOPHEN 325 MG TAB PO PRN (12:31)
[2017-08-24] MEDS: WARFARIN SOD 5 MG TAB PO SCH (16:00)
[2017-08-24] MEDS: LEVALBUTEROL 1.25MG/0.5ML NEB INH PRN (20:46)
[2017-08-24] MEDS: IPRATROPIUM BROMIDE NEB SOLN 0.02% 2.5 ML VIAL INH PRN (20:47)
[2017-08-24] MEDS: PRAVASTATIN SOD 40 MG TAB PO SCH (20:59)
[2017-08-24] MEDS: DONEPEZIL HCL 10 MG TAB PO SCH (20:59)
[2017-08-25] VITALS (10 sets, daily range): BP systolic 105–158; BP diastolic 40–66; PULSE 46–60; TEMP 36.7–37; O2SAT 90–96
[2017-08-25] MEDS: LEVALBUTEROL 0.63MG/3 ML NEB INH SCH ×4 (01:45→19:07)
[2017-08-25] MEDS: IPRATROPIUM BROMIDE NEB SOLN 0.02% 2.5 ML VIAL INH SCH ×4 (01:45→19:07)
[2017-08-25] MEDS: LEVOTHYROXINE 75 MCG TAB PO SCH (06:29)
[2017-08-25] MEDS: OXYBUTYNIN CHLORIDE 5 MG TABCR PO SCH (08:49)
[2017-08-25] MEDS: PANTOprazole SOD 40 MG TAB PO SCH (08:49)
[2017-08-25] MEDS: LACTOBACILLUS ACIDOPHILUS (FLORANEX) TAB PO SCH ×3 (08:50→17:00)
[2017-08-25] MEDS: LORATADINE 10 MG TAB PO SCH (08:50)
[2017-08-25] MEDS: METOPROLOL SUCC 25MG EXT REL TAB PO SCH (08:50)
[2017-08-25] MEDS: DOCUSATE SODIUM 100 MG CAP PO SCH ×2 (08:51→21:28)
[2017-08-25] MEDS: FERROUS SULFATE 325 MG TAB PO SCH ×2 (08:51→17:00)
[2017-08-25] MEDS: CALCITRIOL 0.25 MCG CAP PO SCH (08:51)
[2017-08-25] MEDS: BUMETANIDE 1 MG TAB PO SCH (08:51)
[2017-08-25] MEDS: BRINZOLAMIDE (AZOPT) OPS 10 ML BTL OPB SCH ×2 (08:52→21:28)
[2017-08-25] MEDS: UMECLIDINIUM BROMIDE 62.5MCG/INH INH SCH (08:52)
[2017-08-25] MEDS: HydrALAZINE 10 MG TAB PO SCH ×2 (08:52→21:29)
[2017-08-25] MEDS: FLUTICASONE PROPIONATE NA SPR 16 GM BTL NAE SCH ×2 (08:52→21:28)
[2017-08-25] MEDS: FLUTICASONE/SALMETEROL 250/50 (ADVAIR) 14 PUFF/1 INHALER INH SCH ×2 (08:53→21:28)
--- NOTE | 2017-08-25 10:55 | Progress Note ---
Subjective Date of Service: Aug 25, 2017. Subjective Pt evaluation today including: conversation w/ patient, physical exam, lab review, review of studies, review of inpatient medication list Saw/examined the patient in room 454 No breathing issues noted; but she states she was coughing last evening No chest pain; fevers/chills Problem List Medical Problems: (1) Acute kidney injury Status: Acute (2) Atrial flutter Status: Acute (3) Back pain Status: Acute (4) Bilateral knee pain Status: Acute (5) CHF (congestive heart failure) Status: Acute (6) CHF exacerbation Status: Acute (7) Closed head injury Status: Acute (8) Concussion Status: Acute (9) COPD exacerbation Status: Acute (10) Fall Status: Acute (11) Hyperkalemia Status: Acute (12) Hypoxia Status: Acute (13) Lower extremity edema Status: Acute (14) Peripheral edema Status: Acute (15) Pneumonia Status: Acute (16) Pneumonia involving right lung Status: Acute (17) Sciatica Status: Acute (18) Seizure Status: Acute (19) Sepsis Status: Acute (20) Subtherapeutic international normalized ratio (INR) Status: Acute (21) Weakness Status: Acute Review of Systems Constitutional: No fever, No chills Respiratory: + cough, + sputum, No wheezing, No shortness of breath, No dyspnea on exertion, No dyspnea at rest, No hemoptysis Cardiac: No chest pain, No edema, No palpitations Medications Current Inpatient Medications Medications (Trade) Dose Ordered Sig/Mehdi Route Start Time Stop Time Status Last Admin Dose Admin Acetaminophen (Tylenol Tab) 650 mg Q4H PRN PO 08/11/17 16:45 09/10/17 16:44 08/24/17 12:31 650 MG Ondansetron HCl (Zofran Inj) 4 mg Q6H PRN IV 08/11/17 16:45 09/10/17 16:44 08/23/17 14:10 4 MG Polyethylene (Miralax Powder Packet) 17 gm DAILY PRN PO 08/11/17 16:45 09/10/17 16:44 Brinzolamide (Azopt) 1 drops BID OPB 08/11/17 21:30 09/10/17 21:29 08/25/17 08:52 1 DROPS Calcitriol (Rocaltrol Cap) 0.25 mcg DAILY PO 08/12/17 09:00 09/11/17 08:59 08/25/17 08:51 0.25 MCG Docusate Sodium (coLACE CAP) 100 mg BID PO 08/11/17 21:30 09/10/17 21:29 08/25/17 08:51 100 MG Donepezil HCl (Aricept Tab) 10 mg HS PO 08/11/17 21:30 09/10/17 21:29 08/24/17 20:59 10 MG Salmeterol Xinafoate/ Fluticasone (Advair Diskus 250/50 Inh) 1 puff BID INH 08/11/17 21:30 09/10/17 21:29 08/25/17 08:53 1 PUFF Fluticasone Propionate (Flonase Nasal [place]) 1 sprays BID PAULIE 08/11/17 21:30 09/10/17 21:29 08/25/17 08:52 1 SPRAYS Hydralazine HCl (Apresoline Tab) 10 mg BID PO 08/11/17 21:30 09/10/17 21:29 08/25/17 08:52 10 MG Levothyroxine Sodium (Synthroid Tab) 75 mcg DAILYBB PO 08/12/17 06:00 09/11/17 05:59 08/25/17 06:29 75 MCG Loratadine (Claritin Tab) 10 mg DAILY PO 08/12/17 09:00 09/11/17 08:59 08/25/17 08:50 10 MG Nitroglycerin (Nitrostat Tab) 0.4 mg UD PRN SL 08/11/17 21:30 09/10/17 21:29 Oxybutynin Chloride (Ditropan-Xl Tab) 5 mg DAILY PO 08/12/17 09:00 09/11/17 08:59 08/25/17 08:49 5 MG Pantoprazole Sodium (Protonix Tab) 40 mg DAILY PO 08/12/17 09:00 09/11/17 08:59 08/25/17 08:49 40 MG Albuterol (Ventolin Hfa Inhaler) 2 puffs Q6H PRN INH 08/11/17 21:30 09/10/17 21:29 Ferrous Sulfate (Feosol Tab) 325 mg BIDM PO 08/12/17 07:30 09/11/17 07:29 08/25/17 08:51 325 MG Pravastatin Sodium (Pravachol Tab) 80 mg HS PO 08/11/17 21:30 09/10/17 21:29 08/24/17 20:59 80 MG Albuterol Sulfate (Ventolin 0.083% 2.5MG/3ML Neb) 2.5 mg Q4H PRN INH 08/12/17 09:00 09/11/17 08:59 08/13/17 10:35 2.5 MG Ipratropium [place] (Atrovent 0.02% 0.5MG/2.5ML Neb) 0.5 mg Q4R PRN INH 08/13/17 11:00 09/12/17 10:59 08/24/17 20:47 0.5 MG Levalbuterol (Xopenex 1.25MG/ 0.5ML Neb) 1.25 mg Q4R PRN INH 08/13/17 11:00 09/12/17 10:59 08/24/17 20:46 1.25 MG Lactobacillus Acidophilus (Floranex Tab) 4 tab TIDM PO 08/14/17 16:45 09/13/17 16:44 08/25/17 08:50 4 TAB Metoprolol Succinate (Toprol Xl Tab) 25 mg QAM PO 08/16/17 09:00 09/15/17 08:59 08/24/17 10:07 25 MG Ipratropium [place] (Atrovent 0.02% 0.5MG/2.5ML Neb) 0.5 mg Q6R INH 08/15/17 10:00 09/14/17 09:59 08/25/17 07:19 0.5 MG Levalbuterol (Xopenex 0.63 Mg/ 3 Ml Neb) 0.63 mg Q6R INH 08/15/17 10:00 09/14/17 09:59 08/25/17 07:19 0.63 MG Tramadol HCl (Ultram Tab) 50 mg Q8H PRN PO 08/18/17 10:30 09/17/17 10:29 08/23/17 03:52 50 MG Warfarin Sodium (Coumadin Tab) 5 mg DAILY@16 PO 08/20/17 16:00 09/12/17 15:59 08/23/17 16:37 5 MG Bumetanide (Bumex Tab) 1 mg QAM PO 08/22/17 09:00 09/21/17 08:59 08/25/17 08:51 1 MG Objective Vital Signs Date Time Temp Pulse Resp B/P (MAP) Pulse Ox O2 Delivery O2 Flow Rate FiO2 08/25/17 08:00 95 Nasal Cannula 5.0 08/25/17 07:19 48 21 95 BiPAP/CPAP 50 08/25/17 07:19 48 95 50 08/25/17 07:18 36.7 50 20 158/64 (95) 94 CPAP 08/25/17 01:47 46 95 50 08/25/17 01:45 46 18 96 BiPAP/CPAP 50 08/25/17 00:37 CPAP 08/25/17 00:25 37.0 56 18 150/66 (94) 92 Nasal Cannula 5.0 08/24/17 23:20 55 95 50 08/24/17 20:49 52 18 96 Nasal Cannula 6.0 08/24/17 20:03 Nasal Cannula 5.0 08/24/17 17:35 90 Nasal Cannula 4.0 Oxymask 08/24/17 17:35 36.4 58 18 126/74 (91) 90 Nasal Cannula 4.0 08/24/17 17:22 36.6 58 20 93 5.0 08/24/17 16:00 Nasal Cannula 5.0 Oxymask 08/24/17 14:57 36.6 58 20 138/77 (97) 93 Nasal Cannula 6.0 08/24/17 14:15 46 18 91 Nasal Cannula 6.0 08/24/17 12:41 36.8 52 20 144/62 (89) 94 Nasal Cannula 7.0 08/24/17 12:00 Nasal Cannula 5.0 Oxymask Physical Exam General Appearance: no apparent distress Respiratory/Chest: no respiratory distress, no accessory muscle use, + decreased breath sounds Cardiovascular: regular rate, rhythm, no edema, no murmur Assessment and Plan This is a 71 year old female with a PMH of severe COPD and chronic respiratory failure on 3L O2 continuously at baseline, chronic right sided heart failure/ cor pulmonale with preserved EF, CKD stage IV, Hx. of A. Fib/A flutter and multiple arrhythmias s/p pacemaker-defibrillator implantation, hx. of NSVT, HTN , DM2, anemia of chronic disease/iron deficiency presented with worsening lower extremity edema Acute on Chronic Respiratory Failure Acute COPD exacerbation 08/25 continue Advair and nebs check CXR 08/24 advair and nebulizer for now 08/23 given a dose of solu-medrol last evening no wheezing at this time, continue nebs and Advair for now 08/22 continue antibiotics continue Advair; nebs 08/21 possibly a combination of COPD, pneumonia, CHF appreciate pulmonology input bipap nocturnally will continue abx. therapy for pneumonia Advair + nebs ambulate in [facility] outpatient pulmonology - sleep study Acute on Chronic Right Sided Heart Failure 08/25 continue Bumex daily plan to d/c to [facility] when bed available 08/24 given an extra dose of Bumex today can d/c with Bumex 1mg daily d/c with the Watson catheter in place 08/23 was given Lasix last evening give an extra dose of Bumex today wean O2 back to 3L via NC plan to d/c to [facility] if we can get her back to her baseline O2 08/22 restarted Bumex as per cardiology at 1mg daily 08/21 patient presented with worsening lower extremity edema Bumex was initially held due to kidney function worsening restarted at an alternating dose of 1mg and 2mg creatinine today is at 1.7 restart diuretics as per cardiology Recurrent, Hospital Acquired Pneumonia patient has had recent hospital admission with pneumonia CXR during this admission suggests a R basilar infiltrate currently on Aztreonam + Doxycycline Acute Kidney Injury superimposed on CKD stage IV creatinine on admission up to 2.2 it is now down to 1.7 - which is near baseline restart diuretics as per cardiology Syncope in the setting of NSVT 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 of tachy-james - she has a pacemaker-defibrillator implanted Hx. of A. Fib currently in sinus rhythm continue Coumadin with INR goal of 2-3 Bilateral Lower Extremity Cellulitis patient with peripheral vascular disease, chronic edema secondary to R heart failure/cor pulmonale erythematous/edematous lower extremities - now on Aztreonam + Doxycycline will need rehab; PT/OT Right Elbow and Wrist Pain likely sprained continue PT/OT DVT ppx Coumadin FULL CODE
--- NOTE | 2017-08-25 12:18 | DIAGNOSTIC IMAGING REPORT ---
CHEST ONE VIEW PORTABLE HISTORY: 71 years-old Female r/o pna acute cough with hypoxemia COMPARISON: Chest radiograph 08/22/2017 TECHNIQUE: Portable upright AP view of the chest FINDINGS: Cardiac silhouette is again moderately enlarged. Implantable cardiac device is noted overlying the left chest. There is atherosclerosis of the aorta. Pulmonary vascular congestion persists along with background mild pulmonary edema pattern. Decreased size of the previously noted right pleural effusion with persistent bibasilar opacities. The bones are grossly intact. IMPRESSION: 1. Cardiomegaly with persistent mild pulmonary edema pattern. 2. Decreased size of right pleural effusion. 3. Persistent hazy bibasilar opacities suggesting atelectasis with pneumonia thought to be less likely. The above report was generated using voice recognition software. It may contain grammatical, syntax or spelling errors. Electronically signed by: Naman Naqvi M.D. 08/25/2017 12:16 PM Dictated Date/Time: 08/25/2017 12:13 PM
[2017-08-25] MEDS: ONDANSETRON INJ 2 MG/ML 2 ML VIAL IV PRN (18:43)
[2017-08-25 20:53] LABS: PROTHROMBIN TIME (PATIENT) 50.5 SECONDS (9.0-12.0)
[2017-08-25 20:54] LABS: INR 4.4 (0.9-1.1)
[2017-08-25] MEDS: WARFARIN SOD 5 MG TAB PO SCH (21:27)
[2017-08-25] MEDS: DONEPEZIL HCL 10 MG TAB PO SCH (21:28)
[2017-08-25] MEDS: PRAVASTATIN SOD 40 MG TAB PO SCH (21:29)
[2017-08-26] VITALS (13 sets, daily range): BP systolic 115–171; BP diastolic 56–74; PULSE 50–67; TEMP 36.6–37; O2SAT 90–97
[2017-08-26] MEDS: IPRATROPIUM BROMIDE NEB SOLN 0.02% 2.5 ML VIAL INH SCH ×3 (01:56→20:00)
[2017-08-26] MEDS: LEVALBUTEROL 0.63MG/3 ML NEB INH SCH ×3 (01:56→20:00)
[2017-08-26] MEDS: LEVOTHYROXINE 75 MCG TAB PO SCH (05:45)
[2017-08-26] MEDS: IPRATROPIUM BROMIDE NEB SOLN 0.02% 2.5 ML VIAL INH PRN ×2 (07:10→20:01)
[2017-08-26] MEDS: LEVALBUTEROL 1.25MG/0.5ML NEB INH PRN ×2 (07:10→20:01)
[2017-08-26] MEDS: TRAMADOL HCL 50 MG TAB PO PRN (07:24)
[2017-08-26] MEDS: ONDANSETRON INJ 2 MG/ML 2 ML VIAL IV PRN (07:24)
[2017-08-26] MEDS: HydrALAZINE 10 MG TAB PO SCH ×2 (07:30→20:22)
[2017-08-26] MEDS: LACTOBACILLUS ACIDOPHILUS (FLORANEX) TAB PO SCH ×3 (07:30→16:58)
[2017-08-26] MEDS: FERROUS SULFATE 325 MG TAB PO SCH ×2 (07:31→16:57)
[2017-08-26] MEDS: METOPROLOL SUCC 25MG EXT REL TAB PO SCH (07:31)
[2017-08-26] MEDS: CALCITRIOL 0.25 MCG CAP PO SCH (07:31)
[2017-08-26] MEDS: BUMETANIDE 1 MG TAB PO SCH (07:32)
[2017-08-26] MEDS: BRINZOLAMIDE (AZOPT) OPS 10 ML BTL OPB SCH ×2 (07:32→20:23)
[2017-08-26] MEDS: DOCUSATE SODIUM 100 MG CAP PO SCH ×2 (07:33→20:22)
[2017-08-26] MEDS: FLUTICASONE PROPIONATE NA SPR 16 GM BTL NAE SCH ×2 (07:33→20:23)
[2017-08-26] MEDS: LORATADINE 10 MG TAB PO SCH (07:34)
[2017-08-26] MEDS: OXYBUTYNIN CHLORIDE 5 MG TABCR PO SCH (07:34)
[2017-08-26] MEDS: PANTOprazole SOD 40 MG TAB PO SCH (07:34)
[2017-08-26] MEDS: UMECLIDINIUM BROMIDE 62.5MCG/INH INH SCH (07:35)
[2017-08-26] MEDS: FLUTICASONE/SALMETEROL 250/50 (ADVAIR) 14 PUFF/1 INHALER INH SCH ×2 (07:36→20:23)
[2017-08-26 07:37] LABS: HEMATOCRIT 33.7 % (37-47); MEAN PLATELET VOLUME 11.9 fL (7.4-10.4); PLATELET COUNT 176 K/uL (130-400); RED BLOOD COUNT 3.37 M/uL (4.2-5.4); WHITE BLOOD COUNT 4.46 K/uL (4.8-10.8)
[2017-08-26 08:15] LABS: BUN/CREATININE RATIO 36.7 (10-20); CREATININE 1.2 mg/dl (0.60-1.20); POTASSIUM 3.9 mmol/L (3.5-5.1)
[2017-08-26] MEDS: WARFARIN SOD 5 MG TAB PO SCH (15:57)
[2017-08-26 16:15] LABS: INR 3.5 (0.9-1.1); PROTHROMBIN TIME (PATIENT) 39.2 SECONDS (9.0-12.0)
--- NOTE | 2017-08-26 16:34 | Progress Note ---
Subjective Date of Service: Aug 26, 2017. Subjective Pt evaluation today including: conversation w/ patient, physical exam, lab review, review of studies, review of inpatient medication list Saw/examined the patient in room 454 She's doing well, had some crampy abdominal pain earlier today INR elevated She is anxious about going to [facility] Problem List Medical Problems: (1) Acute kidney injury Status: Acute (2) Atrial flutter Status: Acute (3) Back pain Status: Acute (4) Bilateral knee pain Status: Acute (5) CHF (congestive heart failure) Status: Acute (6) CHF exacerbation Status: Acute (7) Closed head injury Status: Acute (8) Concussion Status: Acute (9) COPD exacerbation Status: Acute (10) Fall Status: Acute (11) Hyperkalemia Status: Acute (12) Hypoxia Status: Acute (13) Lower extremity edema Status: Acute (14) Peripheral edema Status: Acute (15) Pneumonia Status: Acute (16) Pneumonia involving right lung Status: Acute (17) Sciatica Status: Acute (18) Seizure Status: Acute (19) Sepsis Status: Acute (20) Subtherapeutic international normalized ratio (INR) Status: Acute (21) Weakness Status: Acute Review of Systems Constitutional: No fever, No chills Respiratory: No cough, No sputum, No wheezing, No shortness of breath, No dyspnea on exertion, No dyspnea at rest, No hemoptysis Cardiac: No chest pain Abdomen: No pain, No nausea, No vomiting, No diarrhea Medications Current Inpatient Medications Medications (Trade) Dose Ordered Sig/Mehdi Route Start Time Stop Time Status Last Admin Dose Admin Acetaminophen (Tylenol Tab) 650 mg Q4H PRN PO 08/11/17 16:45 09/10/17 16:44 08/24/17 12:31 650 MG Ondansetron HCl (Zofran Inj) 4 mg Q6H PRN IV 08/11/17 16:45 09/10/17 16:44 08/26/17 07:24 4 MG Polyethylene (Miralax Powder Packet) 17 gm DAILY PRN PO 08/11/17 16:45 09/10/17 16:44 Brinzolamide (Azopt) 1 drops BID OPB 08/11/17 21:30 09/10/17 21:29 08/26/17 07:32 1 DROPS Calcitriol (Rocaltrol Cap) 0.25 mcg DAILY PO 08/12/17 09:00 09/11/17 08:59 08/26/17 07:31 0.25 MCG Docusate Sodium (coLACE CAP) 100 mg BID PO 08/11/17 21:30 09/10/17 21:29 08/26/17 07:33 100 MG Donepezil HCl (Aricept Tab) 10 mg HS PO 08/11/17 21:30 09/10/17 21:29 08/25/17 21:28 10 MG Salmeterol Xinafoate/ Fluticasone (Advair Diskus 250/50 Inh) 1 puff BID INH 08/11/17 21:30 09/10/17 21:29 08/26/17 07:36 1 PUFF Fluticasone Propionate (Flonase Nasal [place]) 1 sprays BID PAULIE 08/11/17 21:30 09/10/17 21:29 08/26/17 07:33 1 SPRAYS Hydralazine HCl (Apresoline Tab) 10 mg BID PO 08/11/17 21:30 09/10/17 21:29 08/26/17 07:30 10 MG Levothyroxine Sodium (Synthroid Tab) 75 mcg DAILYBB PO 08/12/17 06:00 09/11/17 05:59 08/26/17 05:45 75 MCG Loratadine (Claritin Tab) 10 mg DAILY PO 08/12/17 09:00 09/11/17 08:59 08/26/17 07:34 10 MG Nitroglycerin (Nitrostat Tab) 0.4 mg UD PRN SL 08/11/17 21:30 09/10/17 21:29 Oxybutynin Chloride (Ditropan-Xl Tab) 5 mg DAILY PO 08/12/17 09:00 09/11/17 08:59 08/26/17 07:34 5 MG Pantoprazole Sodium (Protonix Tab) 40 mg DAILY PO 08/12/17 09:00 09/11/17 08:59 08/26/17 07:34 40 MG Albuterol (Ventolin Hfa Inhaler) 2 puffs Q6H PRN INH 08/11/17 21:30 09/10/17 21:29 Ferrous Sulfate (Feosol Tab) 325 mg BIDM PO 08/12/17 07:30 09/11/17 07:29 08/26/17 07:31 325 MG Pravastatin Sodium (Pravachol Tab) 80 mg HS PO 08/11/17 21:30 09/10/17 21:29 08/25/17 21:29 80 MG Albuterol Sulfate (Ventolin 0.083% 2.5MG/3ML Neb) 2.5 mg Q4H PRN INH 08/12/17 09:00 09/11/17 08:59 08/13/17 10:35 2.5 MG Ipratropium [place] (Atrovent 0.02% 0.5MG/2.5ML Neb) 0.5 mg Q4R PRN INH 08/13/17 11:00 09/12/17 10:59 08/26/17 07:10 0.5 MG Levalbuterol (Xopenex 1.25MG/ 0.5ML Neb) 1.25 mg Q4R PRN INH 08/13/17 11:00 09/12/17 10:59 08/26/17 07:10 1.25 MG Lactobacillus Acidophilus (Floranex Tab) 4 tab TIDM PO 08/14/17 16:45 09/13/17 16:44 08/26/17 13:20 4 TAB Metoprolol Succinate (Toprol Xl Tab) 25 mg QAM PO 08/16/17 09:00 09/15/17 08:59 08/26/17 07:31 25 MG Ipratropium [place] (Atrovent 0.02% 0.5MG/2.5ML Neb) 0.5 mg Q6R INH 08/15/17 10:00 09/14/17 09:59 08/26/17 13:59 0.5 MG Levalbuterol (Xopenex 0.63 Mg/ 3 Ml Neb) 0.63 mg Q6R INH 08/15/17 10:00 09/14/17 09:59 08/26/17 13:59 0.63 MG Tramadol HCl (Ultram Tab) 50 mg Q8H PRN PO 08/18/17 10:30 09/17/17 10:29 08/26/17 07:24 50 MG Warfarin Sodium (Coumadin Tab) 5 mg DAILY@16 PO 08/20/17 16:00 09/12/17 15:59 08/23/17 16:37 5 MG Bumetanide (Bumex Tab) 1 mg QAM PO 08/22/17 09:00 09/21/17 08:59 08/26/17 07:32 1 MG Objective Vital Signs Date Time Temp Pulse Resp B/P (MAP) Pulse Ox O2 Delivery O2 Flow Rate FiO2 08/26/17 15:15 36.6 55 16 115/56 (75) 91 4.0 08/26/17 14:00 63 20 91 Nasal Cannula 4.0 08/26/17 08:00 92 Nasal Cannula 4.0 08/26/17 07:26 36.9 60 18 171/74 (106) 97 4.0 08/26/17 07:10 58 20 96 BiPAP/CPAP 50 08/26/17 05:49 51 95 50 08/26/17 01:58 50 93 50 08/26/17 01:57 50 20 93 BiPAP/CPAP 50 08/26/17 00:29 BiPAP 08/26/17 00:13 37.0 59 18 135/70 (91) 93 Nasal Cannula 5.0 08/25/17 23:08 60 94 50 08/25/17 21:03 Nasal Cannula 5.0 08/25/17 19:38 Nasal Cannula 4.0 08/25/17 19:09 58 18 90 Nasal Cannula 4.0 Physical Exam General Appearance: no apparent distress Respiratory/Chest: no respiratory distress, no accessory muscle use, + decreased breath sounds Cardiovascular: regular rate, rhythm, no murmur, + pertinent finding (trace edema) Abdomen: normal bowel sounds, non tender, soft Laboratory Results Last 24 Hours Test 08/25/17 20:10 08/26/17 06:51 08/26/17 15:55 Prothrombin Time 50.5 SECONDS 39.2 SECONDS Prothromb Time International Ratio 4.4 3.5 White Blood Count 4.46 K/uL Red Blood Count 3.37 M/uL Hemoglobin 10.8 g/dL Hematocrit 33.7 % Mean Corpuscular Volume 100.0 fL Mean Corpuscular Hemoglobin 32.0 pg Mean Corpuscular Hemoglobin Concent 32.0 g/dl RDW Standard Deviation 54.5 fL RDW Coefficient of Variation 15.0 % Platelet Count 176 K/uL Mean Platelet Volume 11.9 fL Sodium Level 144 mmol/L Potassium Level 3.9 mmol/L Chloride Level 101 mmol/L Carbon Dioxide Level 38 mmol/L Anion Gap 5.0 mmol/L Blood Urea Nitrogen 44 mg/dl Creatinine 1.20 mg/dl Est Creatinine Clear Calc Drug Dose 37.4 ml/min Estimated GFR () 52.3 Estimated GFR (Non- 45.1 BUN/Creatinine Ratio 36.7 Random Glucose 82 mg/dl Calcium Level 10.0 mg/dl Assessment and Plan This is a 71 year old female with a PMH of severe COPD and chronic respiratory failure on 3L O2 continuously at baseline, chronic right sided heart failure/ cor pulmonale with preserved EF, CKD stage IV, Hx. of A. Fib/A flutter and multiple arrhythmias s/p pacemaker-defibrillator implantation, hx. of NSVT, HTN , DM2, anemia of chronic disease/iron deficiency presented with worsening lower extremity edema Acute on Chronic Respiratory Failure Acute COPD exacerbation 08/26 plan is to continue diuretics; Bumex daily wean O2 back to baseline 3L d/c planning to [facility] likely on 08/27 08/25 continue Advair and nebs check CXR 08/24 advair and nebulizer for now 08/23 given a dose of solu-medrol last evening no wheezing at this time, continue nebs and Advair for now 08/22 continue antibiotics continue Advair; nebs 08/21 possibly a combination of COPD, pneumonia, CHF appreciate pulmonology input bipap nocturnally will continue abx. therapy for pneumonia Advair + nebs ambulate in [facility] outpatient pulmonology - sleep study Acute on Chronic Right Sided Heart Failure 08/25 continue Bumex daily plan to d/c to [facility] when bed available 08/24 given an extra dose of Bumex today can d/c with Bumex 1mg daily d/c with the Watson catheter in place 08/23 was given Lasix last evening give an extra dose of Bumex today wean O2 back to 3L via [place] plan to d/c to [facility] if we can get her back to her baseline O2 08/22 restarted Bumex as per cardiology at 1mg daily 08/21 patient presented with worsening lower extremity edema Bumex was initially held due to kidney function worsening restarted at an alternating dose of 1mg and 2mg creatinine today is at 1.7 restart diuretics as per cardiology Recurrent, Hospital Acquired Pneumonia patient has had recent hospital admission with pneumonia CXR during this admission suggests a R basilar infiltrate currently on Aztreonam + Doxycycline Acute Kidney Injury superimposed on CKD stage IV creatinine on admission up to 2.2 it is now down to 1.7 - which is near baseline restart diuretics as per cardiology Syncope in the setting of NSVT 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 of tachy-james - she has a pacemaker-defibrillator implanted Hx. of A. Fib currently in sinus rhythm continue Coumadin with INR goal of 2-3 Bilateral Lower Extremity Cellulitis patient with peripheral vascular disease, chronic edema secondary to R heart failure/cor pulmonale erythematous/edematous lower extremities - now on Aztreonam + Doxycycline will need rehab; PT/OT Right Elbow and Wrist Pain likely sprained continue PT/OT DVT ppx Coumadin FULL CODE
[2017-08-26] MEDS: PRAVASTATIN SOD 40 MG TAB PO SCH (22:32)
[2017-08-26] MEDS: DONEPEZIL HCL 10 MG TAB PO SCH (22:32)
[2017-08-27] VITALS (7 sets, daily range): BP systolic 136; BP diastolic 65; PULSE 50–76; TEMP 36.8; O2SAT 92–98
[2017-08-27] MEDS: LEVALBUTEROL 0.63MG/3 ML NEB INH SCH ×2 (01:50→07:00)
[2017-08-27] MEDS: IPRATROPIUM BROMIDE NEB SOLN 0.02% 2.5 ML VIAL INH SCH ×2 (01:50→06:59)
[2017-08-27] MEDS: LEVOTHYROXINE 75 MCG TAB PO SCH (06:38)
[2017-08-27 06:53] LABS: HEMATOCRIT 34.5 % (37-47); MEAN CELL VOLUME 100.6 fL (80-100); MEAN CORPUSCULAR HEMOGLOBIN 29.7 pg (25-34); MEAN CORPUSCULAR HGB CONC 29.6 g/dl (32-36); MEAN PLATELET VOLUME 11.9 fL (7.4-10.4); PLATELET COUNT 185 K/uL (130-400); RED BLOOD COUNT 3.43 M/uL (4.2-5.4); WHITE BLOOD COUNT 5.43 K/uL (4.8-10.8)
[2017-08-27 07:04] LABS: INR 2.7 (0.9-1.1); PROTHROMBIN TIME (PATIENT) 30.5 SECONDS (9.0-12.0)
[2017-08-27 07:28] LABS: BUN/CREATININE RATIO 30.5 (10-20); CALCIUM 9.1 mg/dl (8.5-10.1); CREATININE 1.4 mg/dl (0.60-1.20); MAGNESIUM 2.4 mg/dl (1.8-2.4)
[2017-08-27] MEDS: CALCITRIOL 0.25 MCG CAP PO SCH (09:04)
[2017-08-27] MEDS: DOCUSATE SODIUM 100 MG CAP PO SCH (09:04)
[2017-08-27] MEDS: OXYBUTYNIN CHLORIDE 5 MG TABCR PO SCH (09:04)
[2017-08-27] MEDS: LACTOBACILLUS ACIDOPHILUS (FLORANEX) TAB PO SCH ×2 (09:04→12:26)
[2017-08-27] MEDS: HydrALAZINE 10 MG TAB PO SCH (09:04)
[2017-08-27] MEDS: FERROUS SULFATE 325 MG TAB PO SCH (09:04)
[2017-08-27] MEDS: METOPROLOL SUCC 25MG EXT REL TAB PO SCH (09:05)
[2017-08-27] MEDS: PANTOprazole SOD 40 MG TAB PO SCH (09:05)
[2017-08-27] MEDS: LORATADINE 10 MG TAB PO SCH (09:05)
[2017-08-27] MEDS: UMECLIDINIUM BROMIDE 62.5MCG/INH INH SCH (09:06)
[2017-08-27] MEDS: FLUTICASONE/SALMETEROL 250/50 (ADVAIR) 14 PUFF/1 INHALER INH SCH (09:06)
[2017-08-27] MEDS: BRINZOLAMIDE (AZOPT) OPS 10 ML BTL OPB SCH (09:06)
[2017-08-27] MEDS: FLUTICASONE PROPIONATE NA SPR 16 GM BTL NAE SCH (09:06)
[2017-08-27] MEDS: BUMETANIDE 1 MG TAB PO SCH (10:12)
--- NOTE | 2017-08-27 10:17 | Progress Note ---
Subjective Date of Service: Aug 27, 2017. Subjective Pt evaluation today including: conversation w/ patient, physical exam, lab review, review of studies, review of inpatient medication list Saw/examined the patient in room 454 She is seated in a chair, doing well, breathing status is at baseline No chest pain, on supplemental oxygen; eager to get out of the hospital Problem List Medical Problems: (1) Acute kidney injury Status: Acute (2) Atrial flutter Status: Acute (3) Back pain Status: Acute (4) Bilateral knee pain Status: Acute (5) CHF (congestive heart failure) Status: Acute (6) CHF exacerbation Status: Acute (7) Closed head injury Status: Acute (8) Concussion Status: Acute (9) COPD exacerbation Status: Acute (10) Fall Status: Acute (11) Hyperkalemia Status: Acute (12) Hypoxia Status: Acute (13) Lower extremity edema Status: Acute (14) Peripheral edema Status: Acute (15) Pneumonia Status: Acute (16) Pneumonia involving right lung Status: Acute (17) Sciatica Status: Acute (18) Seizure Status: Acute (19) Sepsis Status: Acute (20) Subtherapeutic international normalized ratio (INR) Status: Acute (21) Weakness Status: Acute Review of Systems Constitutional: No fever, No chills Respiratory: + shortness of breath (baseline), No cough, No sputum Cardiac: No chest pain Abdomen: No pain, No nausea, No vomiting, No diarrhea, No constipation, No GI bleeding Medications Current Inpatient Medications Medications (Trade) Dose Ordered Sig/Mehdi Route Start Time Stop Time Status Last Admin Dose Admin Acetaminophen (Tylenol Tab) 650 mg Q4H PRN PO 08/11/17 16:45 09/10/17 16:44 08/24/17 12:31 650 MG Ondansetron HCl (Zofran Inj) 4 mg Q6H PRN IV 08/11/17 16:45 09/10/17 16:44 08/26/17 07:24 4 MG Polyethylene (Miralax Powder Packet) 17 gm DAILY PRN PO 08/11/17 16:45 09/10/17 16:44 Brinzolamide (Azopt) 1 drops BID OPB 08/11/17 21:30 09/10/17 21:29 08/27/17 09:06 1 DROPS Calcitriol (Rocaltrol Cap) 0.25 mcg DAILY PO 08/12/17 09:00 09/11/17 08:59 08/27/17 09:04 0.25 MCG Docusate Sodium (coLACE CAP) 100 mg BID PO 08/11/17 21:30 09/10/17 21:29 08/27/17 09:04 100 MG Donepezil HCl (Aricept Tab) 10 mg HS PO 08/11/17 21:30 09/10/17 21:29 08/26/17 22:32 10 MG Salmeterol Xinafoate/ Fluticasone (Advair Diskus 250/50 Inh) 1 puff BID INH 08/11/17 21:30 09/10/17 21:29 08/27/17 09:06 1 PUFF Fluticasone Propionate (Flonase Nasal [place]) 1 sprays BID PAULIE 08/11/17 21:30 09/10/17 21:29 08/27/17 09:06 1 SPRAYS Hydralazine HCl (Apresoline Tab) 10 mg BID PO 08/11/17 21:30 09/10/17 21:29 08/27/17 09:04 10 MG Levothyroxine Sodium (Synthroid Tab) 75 mcg DAILYBB PO 08/12/17 06:00 09/11/17 05:59 08/27/17 06:38 75 MCG Loratadine (Claritin Tab) 10 mg DAILY PO 08/12/17 09:00 09/11/17 08:59 08/27/17 09:05 10 MG Nitroglycerin (Nitrostat Tab) 0.4 mg UD PRN SL 08/11/17 21:30 09/10/17 21:29 Oxybutynin Chloride (Ditropan-Xl Tab) 5 mg DAILY PO 08/12/17 09:00 09/11/17 08:59 08/27/17 09:04 5 MG Pantoprazole Sodium (Protonix Tab) 40 mg DAILY PO 08/12/17 09:00 09/11/17 08:59 08/27/17 09:05 40 MG Albuterol (Ventolin Hfa Inhaler) 2 puffs Q6H PRN INH 08/11/17 21:30 09/10/17 21:29 Ferrous Sulfate (Feosol Tab) 325 mg BIDM PO 08/12/17 07:30 09/11/17 07:29 08/27/17 09:04 325 MG Pravastatin Sodium (Pravachol Tab) 80 mg HS PO 08/11/17 21:30 09/10/17 21:29 08/26/17 22:32 80 MG Albuterol Sulfate (Ventolin 0.083% 2.5MG/3ML Neb) 2.5 mg Q4H PRN INH 08/12/17 09:00 09/11/17 08:59 08/13/17 10:35 2.5 MG Ipratropium [place] (Atrovent 0.02% 0.5MG/2.5ML Neb) 0.5 mg Q4R PRN INH 08/13/17 11:00 09/12/17 10:59 08/26/17 20:01 0.5 MG Levalbuterol (Xopenex 1.25MG/ 0.5ML Neb) 1.25 mg Q4R PRN INH 08/13/17 11:00 09/12/17 10:59 08/26/17 20:01 1.25 MG Lactobacillus Acidophilus (Floranex Tab) 4 tab TIDM PO 08/14/17 16:45 09/13/17 16:44 08/27/17 09:04 4 TAB Metoprolol Succinate (Toprol Xl Tab) 25 mg QAM PO 08/16/17 09:00 09/15/17 08:59 08/26/17 07:31 25 MG Ipratropium [place] (Atrovent 0.02% 0.5MG/2.5ML Neb) 0.5 mg Q6R INH 08/15/17 10:00 09/14/17 09:59 08/27/17 06:59 0.5 MG Levalbuterol (Xopenex 0.63 Mg/ 3 Ml Neb) 0.63 mg Q6R INH 08/15/17 10:00 09/14/17 09:59 08/27/17 07:00 0.63 MG Tramadol HCl (Ultram Tab) 50 mg Q8H PRN PO 08/18/17 10:30 09/17/17 10:29 08/26/17 07:24 50 MG Warfarin Sodium (Coumadin Tab) 5 mg DAILY@16 PO 08/20/17 16:00 09/12/17 15:59 08/23/17 16:37 5 MG Bumetanide (Bumex Tab) 1 mg QAM PO 08/22/17 09:00 09/21/17 08:59 08/26/17 07:32 1 MG Objective Vital Signs Date Time Temp Pulse Resp B/P (MAP) Pulse Ox O2 Delivery O2 Flow Rate FiO2 08/27/17 07:13 36.8 55 18 136/65 (88) 98 BiPAP 08/27/17 07:00 55 20 96 BiPAP/CPAP 50 08/27/17 01:51 52 92 50 08/27/17 01:50 50 20 92 BiPAP/CPAP 50 08/27/17 00:00 BiPAP 4.0 50 08/26/17 23:59 36.6 56 20 148/56 (86) 95 BiPAP 08/26/17 23:12 58 95 50 08/26/17 20:03 67 20 90 Nasal Cannula 4.0 08/26/17 16:00 93 Nasal Cannula 4.0 08/26/17 15:15 36.6 55 16 115/56 (75) 91 4.0 08/26/17 14:00 63 20 91 Nasal Cannula 4.0 Physical Exam General Appearance: no apparent distress, + pertinent finding (supplemental oxygen in place) Respiratory/Chest: lungs clear, normal breath sounds, no respiratory distress, no accessory muscle use Cardiovascular: regular rate, rhythm, no edema, no murmur Abdomen: normal bowel sounds, non tender, soft Laboratory Results Last 24 Hours Test 08/26/17 15:55 08/27/17 06:14 Prothrombin Time 39.2 SECONDS 30.5 SECONDS Prothromb Time International Ratio 3.5 2.7 White Blood Count 5.43 K/uL Red Blood Count 3.43 M/uL Hemoglobin 10.2 g/dL Hematocrit 34.5 % Mean Corpuscular Volume 100.6 fL Mean Corpuscular Hemoglobin 29.7 pg Mean Corpuscular Hemoglobin Concent 29.6 g/dl RDW Standard Deviation 55.3 fL RDW Coefficient of Variation 15.2 % Platelet Count 185 K/uL Mean Platelet Volume 11.9 fL Sodium Level 143 mmol/L Potassium Level 4.0 mmol/L Chloride Level 99 mmol/L Carbon Dioxide Level 37 mmol/L Anion Gap 7.0 mmol/L Blood Urea Nitrogen 43 mg/dl Creatinine 1.40 mg/dl Est Creatinine Clear Calc Drug Dose 32.0 ml/min Estimated GFR () 43.4 Estimated GFR (Non- 37.4 BUN/Creatinine Ratio 30.5 Random Glucose 86 mg/dl Calcium Level 9.1 mg/dl Magnesium Level 2.4 mg/dl Assessment and Plan This is a 71 year old female with a PMH of severe COPD and chronic respiratory failure on 3L O2 continuously at baseline, chronic right sided heart failure/ cor pulmonale with preserved EF, CKD stage IV, Hx. of A. Fib/A flutter and multiple arrhythmias s/p pacemaker-defibrillator implantation, hx. of NSVT, HTN , DM2, anemia of chronic disease/iron deficiency presented with worsening lower extremity edema Acute on Chronic Respiratory Failure Acute COPD exacerbation 08/27 will d/c to [facility] today Bumex daily lab work (PRP + INR) in one week 08/26 plan is to continue diuretics; Bumex daily wean O2 back to baseline 3L d/c planning to [facility] likely on 08/27 08/25 continue Advair and nebs check CXR 08/24 advair and nebulizer for now 08/23 given a dose of solu-medrol last evening no wheezing at this time, continue nebs and Advair for now 08/22 continue antibiotics continue Advair; nebs 08/21 possibly a combination of COPD, pneumonia, CHF appreciate pulmonology input bipap nocturnally will continue abx. therapy for pneumonia Advair + nebs ambulate in [facility] outpatient pulmonology - sleep study Acute on Chronic Right Sided Heart Failure 08/25 continue Bumex daily plan to d/c to [facility] when bed available 08/24 given an extra dose of Bumex today can d/c with Bumex 1mg daily d/c with the Watson catheter in place 08/23 was given Lasix last evening give an extra dose of Bumex today wean O2 back to 3L via NC plan to d/c to [facility] if we can get her back to her baseline O2 08/22 restarted Bumex as per cardiology at 1mg daily 08/21 patient presented with worsening lower extremity edema Bumex was initially held due to kidney function worsening restarted at an alternating dose of 1mg and 2mg creatinine today is at 1.7 restart diuretics as per cardiology Recurrent, Hospital Acquired Pneumonia patient has had recent hospital admission with pneumonia CXR during this admission suggests a R basilar infiltrate currently on Aztreonam + Doxycycline Acute Kidney Injury superimposed on CKD stage IV creatinine on admission up to 2.2 it is now down to 1.7 - which is near baseline restart diuretics as per cardiology Syncope in the setting of NSVT 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 of tachy-james - she has a pacemaker-defibrillator implanted Hx. of A. Fib currently in sinus rhythm continue Coumadin with INR goal of 2-3 Bilateral Lower Extremity Cellulitis patient with peripheral vascular disease, chronic edema secondary to R heart failure/cor pulmonale erythematous/edematous lower extremities - now on Aztreonam + Doxycycline will need rehab; PT/OT Right Elbow and Wrist Pain likely sprained continue PT/OT DVT ppx Coumadin FULL CODE
[2017-08-27] MEDS: LEVALBUTEROL 1.25MG/0.5ML NEB INH PRN (14:21)
[2017-08-27] MEDS: IPRATROPIUM BROMIDE NEB SOLN 0.02% 2.5 ML VIAL INH PRN (14:21)
== END 2017-08-27 16:07 | DRG 260 ==
LOC: EDBD 14:20 → C.EDC 14:21 → C.2E 16:47 → ENRESERV 17:23 → C.MS4W 08-24 17:21
PROVIDERS: ADMIT Hospitalist; ATTEND Internal Medicine
PROC: 0T9B70Z Drainage of Bladder with Drainage Device, Via Natural or Artificial Opening (ICD-10-PCS; 2017-08-11)
PROC: 0JH632Z Insertion of Monitoring Device into Chest Subcutaneous Tissue and Fascia, Percutaneous Approach (ICD-10-PCS; principal; 2017-08-16 09:29)
DX: I13.0 Hypertensive heart and chronic kidney disease with heart failure and stage 1 through stage 4 chronic kidney disease, or unspecified chronic kidney disease (principal); I50.33 Acute on chronic diastolic (congestive) heart failure; J96.21 Acute and chronic respiratory failure with hypoxia; J96.22 Acute and chronic respiratory failure with hypercapnia; J18.9 Pneumonia, unspecified organism; N18.4 Chronic kidney disease, stage 4 (severe); J44.0 Chronic obstructive pulmonary disease with (acute) lower respiratory infection; J44.1 Chronic obstructive pulmonary disease with (acute) exacerbation; I47.2 Ventricular tachycardia; L03.115 Cellulitis of right lower limb; L03.116 Cellulitis of left lower limb; N17.9 Acute kidney failure, unspecified; I50.813 Acute on chronic right heart failure; T50.1X5A Adverse effect of loop [high-ceiling] diuretics, initial encounter; Y95 Nosocomial condition; I27.29 Other secondary pulmonary hypertension; I48.0 Paroxysmal atrial fibrillation; R79.1 Abnormal coagulation profile; T45.515A Adverse effect of anticoagulants, initial encounter; G47.33 Obstructive sleep apnea (adult) (pediatric); F03.90 Unspecified dementia, unspecified severity, without behavioral disturbance, psychotic disturbance, mood disturbance, and anxiety; D50.9 Iron deficiency anemia, unspecified; D63.8 Anemia in other chronic diseases classified elsewhere; E89.0 Postprocedural hypothyroidism; K59.00 Constipation, unspecified; R10.817 Generalized abdominal tenderness; E78.5 Hyperlipidemia, unspecified; I25.10 Atherosclerotic heart disease of native coronary artery without angina pectoris; K21.9 Gastro-esophageal reflux disease without esophagitis; I07.1 Rheumatic tricuspid insufficiency; R55 Syncope and collapse; M25.521 Pain in right elbow; M25.531 Pain in right wrist; E66.9 Obesity, unspecified; Z68.32 Body mass index [BMI] 32.0-32.9, adult; Z91.14 Patient's other noncompliance with medication regimen; Z86.79 Personal history of other diseases of the circulatory system; Z86.73 Personal history of transient ischemic attack (TIA), and cerebral infarction without residual deficits; Z87.01 Personal history of pneumonia (recurrent); Z86.14 Personal history of Methicillin resistant Staphylococcus aureus infection; Z87.891 Personal history of nicotine dependence; Z90.5 Acquired absence of kidney; Z99.81 Dependence on supplemental oxygen; Z79.01 Long term (current) use of anticoagulants; Z79.899 Other long term (current) drug therapy; Z88.0 Allergy status to penicillin; Z88.1 Allergy status to other antibiotic agents; Z88.2 Allergy status to sulfonamides; Z82.49 Family history of ischemic heart disease and other diseases of the circulatory system; Z83.6 Family history of other diseases of the respiratory system

== ENCOUNTER 2018-02-25 11:28 | Inpatient (IN) | payer OTHER ==
[~2018-02-25] VITALS: Ht 149.9 cm; Wt 66.3 kg
[~2018-02-25 11:28] MED LIST changes: -ADVIN25/60 INH; -ALBINS/ INH; -ALBU18002 INH; -BMX1 PO; -BRIN1SUS OPB; +BUME1TAB PO; -CALC1CAP36 PO; -DOCU-94 PO; -HYDR-4322 PO; -LEVO75TA5 PO; -MONT1TAB3 PO; -OXGN; -OXYB5TAB PO; -PRAV80TA2 PO; -UMEC1INH PO; +WARF-246 PO; -WARF5TAB7 PO
[2018-02-25] MEDS ORDERED: SODIUM CHLORIDE 0.9% 500ML 500 ML IV STA (11:45)
[2018-02-25] MEDS ORDERED: METOCLOPRAMIDE HCL INJ 5 MG/ML 2 ML VIAL IV STA (11:45)
[2018-02-25] MEDS ORDERED: MoRPHine SULFATE 4 MG/ML 1 ML CARP\\VIAL IV STA ×2 (11:45→15:48)
[2018-02-25] MEDS ORDERED: MoRPHine SULFATE 2 MG/ML CARP ONE (11:50)
[2018-02-25] MEDS ORDERED: OPTIRAY 320 IV PRN (12:00)
[2018-02-25 12:02] LABS: BASO % 0.5 %; BASO ABS # 0.04 K/uL (0-0.2); EOS % 1.3 %; HEMATOCRIT 34.7 % (37-47); HEMOGLOBIN 11.3 g/dL (12.0-16.0); IG# 0.02 K/uL (0.00-0.02); LYMPH % 17.3 %; LYMPH ABS # 1.32 K/uL (1.2-3.4); MEAN CORPUSCULAR HEMOGLOBIN 32.6 pg (25-34); MEAN CORPUSCULAR HGB CONC 32.6 g/dl (32-36); MEAN PLATELET VOLUME 12.6 fL (7.4-10.4); MONO % 6.5 %; NEUT % 74.1 %; NEUT ABS # 5.66 K/uL (1.4-6.5); PLATELET COUNT 134 K/uL (130-400); RED CELL DISTRIBUTION WIDTH CV 14.8 % (11.5-14.5); RED CELL DISTRIBUTION WIDTH SD 53.6 fL (36.4-46.3); WHITE BLOOD COUNT 7.64 K/uL (4.8-10.8)
[2018-02-25 12:16] LABS: ALBUMIN 3.1 gm/dl (3.4-5.0); CALCIUM 9.3 mg/dl (8.5-10.1); CREATININE 2.1 mg/dl (0.60-1.20); TOTAL PROTEIN 7.5 gm/dl (6.4-8.2)
[2018-02-25 12:20] LABS: INFLUENZA B ANTIGEN Neg for Influ B (NEG)
[2018-02-25 12:21] LABS: POTASSIUM 4.1 mmol/L (3.5-5.1)
[2018-02-25] MEDS ORDERED: WARF5TAB7 PO (12:21)
--- NOTE | 2018-02-25 12:31 | EMERGENCY ROOM VISIT NOTE ---
History Report prepared by Kaitlynn: Saniya Lisa Under the Supervision of: Dr. Nirav Shah M.D. First contact with patient: 11:42 Chief Complaint: CONSTIPATION Stated Complaint: ABDOMINAL PAIN Nursing Triage Summary: Pt arrives by ALS from home for RLQ pain, constipation. Pt reports last normal BM was 02/17. reports small BM this am, green in color. One episode of vomiting last night. Abd distended. Pt reports she does take stool softeners, and took Miralax yesterday. Pt c/o pain in rectum with straining. Pt does not think she has hx with obstructions or bowel issues. poor historian. Per EMS community nurse was on scene. Pt wears oxygen 2-3L at all times. Also reports she has new onset of congestion. History of Present Illness The patient is a 72 year old female who presents to the Emergency Room with complaints of constant constipation for the past week. She states that her last normal bowel movement was 8 days ago. She reports diffuse abdominal pain and pain in her rectum. She states that her pain is worsened with straining to have a bowel movement. She rates her pain as a 10/10 in severity. Yesterday she took Miralax and stool softeners. She had a small bowel movement this morning. The patient was brought to the ED by ambulance. She wears 2-3L of NC/O2 at all times. Source of History: patient, nursing staff Onset: 1 week ago Position: abdomen Symptom Intensity: 10/10 Quality: other (constipation) Timing: constant Modifying Factors (Worsening): defecation (straining) Associated Symptoms: + abdominal pain Review of Systems See HPI for pertinent positives & negatives. A total of 10 systems reviewed and were otherwise negative. Past Medical & Surgical Medical Problems: (1) Afib (2) Anemia (3) ASD (atrial septal defect) (4) Bradycardia (5) CKD (chronic kidney disease), stage IV (6) COPD (chronic obstructive pulmonary disease) (7) Cough (8) GERD (gastroesophageal reflux disease) (9) H/O unilateral nephrectomy (10) Heart disease (11) HLD (hyperlipidemia) (12) HTN (hypertension) (13) Hydronephrosis (14) Hydronephrosis, left (15) Hypertension (16) Hypothyroid (17) Leg swelling (18) Mild left ventricular systolic dysfunction (19) MRSA bacteremia (20) Pacemaker (21) Right-sided congestive heart failure (22) Solitary kidney (23) Tachy-james syndrome Surgical Problems: (1) H/O thyroidectomy (2) History of appendectomy (3) S/P MVR (mitral valve repair) Family History Heart disease Hypertension Lung disease Social History Smoking Status: Former Smoker Alcohol Use: none Drug Use: none Marital Status: single Housing Status: other Occupation Status: disabled Current/Historical Medications Scheduled Brinzolamide Oph (Azopt Oph), 1 DROP OPB TID Bumetanide (Bumex), 1 MG PO DAILY Calcitriol (Calcitriol), 0.25 MCG PO DAILY Donepezil Hydrochloride (Aricept), 10 MG PO HS Ferrous Sulfate (Iron), 1 TAB PO BID Fluticasone Prop/Salmeterol (Advair Diskus 250/50 60 Dose), 1 PUFF INH BID Fluticasone Propionate (Nasal) (Flonase Allergy Relief), 1 SPRAY PAULIE BID Gabapentin (Neurontin), 300 MG PO DAILY Gabapentin (Neurontin), 600 MG PO [facility] Home O2 Therapy (Oxygen), 3 LITERS NA CONTINOUS Hydralazine HCl (Hydralazine HCl), 10 MG PO BID Levothyroxine Sodium (Levothyroxine Sodium), 75 MCG PO DAILY Loratadine (Claritin), 10 MG PO DAILY Metoprolol Succinate (Metoprolol Succinate ER), 25 MG PO DAILY Nitroglycerin (Nitrostat), 0.4 MG SL PRN UD Oxybutynin Chloride (Oxybutynin Chloride Er), 5 MG PO DAILY Pantoprazole (Pantoprazole Sodium), 40 MG PO DAILY Pravastatin Sodium (Pravastatin Sodium), 80 MG PO QPM Umeclidinium [place] (Incruse Ellipta), 1 INHA PO DAILY Warfarin Sod (Jantoven), 2.5 MG PO 4XWK Warfarin Sodium (Warfarin Sodium), 5 MG PO 3XWK Scheduled PRN Albuterol Sulf (Proventil 0.083% 2.5MG/3ML), 2.5 MG INH Q4H PRN for SOB/Wheezing Albuterol Sulfate (Proair Respiclick), 2 PUFFS INH QID PRN for Shortness of Breath Allergies Coded Allergies: Levofloxacin (Verified Allergy, Intermediate, HIVES, 02/25/18) Quinolones (Verified Allergy, Intermediate, HIVES, 02/25/18) Ranitidine (Verified Allergy, Intermediate, HIVES, 02/25/18) Sulfamethoxazole (Verified Allergy, Intermediate, HIVES, 02/25/18) Trimethoprim (Verified Allergy, Intermediate, HIVES, 02/25/18) Clarithromycin (Verified Allergy, Mild, HIVES, CAN TAKE ZITHROMAX W/O PROB , 02/25/18) Amoxicillin (Verified Allergy, Unknown, HIVES, 02/25/18) Omeprazole (Verified Allergy, Unknown, HAS HAD PROTONIX, 02/25/18) Physical Exam Vital Signs Date Time Temp Pulse Resp B/P (MAP) Pulse Ox O2 Delivery O2 Flow Rate FiO2 02/25/18 15:11 65 96/53 93 Nasal Cannula 3.0 02/25/18 14:33 49 13 88 02/25/18 14:28 49 13 85 02/25/18 14:23 50 13 85 02/25/18 14:18 50 13 85 02/25/18 14:13 50 15 89 02/25/18 14:08 62 15 95 02/25/18 14:03 51 16 94 02/25/18 13:58 51 17 94 02/25/18 13:53 69 17 80 02/25/18 13:48 51 14 86 02/25/18 13:43 50 13 90 02/25/18 13:38 50 13 90 02/25/18 13:33 51 18 90 02/25/18 13:28 51 12 91 02/25/18 13:23 52 13 90 02/25/18 13:18 53 15 85 02/25/18 13:13 53 18 81 02/25/18 13:08 50 15 80 02/25/18 13:03 50 15 94 02/25/18 12:58 62 15 95 02/25/18 12:53 66 18 02/25/18 12:48 51 16 89 02/25/18 12:43 52 20 95 02/25/18 12:38 58 15 94 02/25/18 12:33 51 13 92 02/25/18 12:28 51 16 91 02/25/18 12:23 57 17 85 02/25/18 12:18 51 17 92 02/25/18 12:16 51 02/25/18 12:13 56 16 92 02/25/18 12:08 60 15 90 02/25/18 12:03 64 18 89 02/25/18 11:58 55 15 94 02/25/18 11:53 57 18 92 02/25/18 11:48 54 15 95 02/25/18 11:46 93 Nasal Cannula 5.0 02/25/18 11:45 93 Nasal Cannula 5.0 02/25/18 11:43 60 16 86 02/25/18 11:38 53 13 90 02/25/18 11:38 37.6 58 24 155/68 93 Nasal Cannula 5.0 02/25/18 11:35 155/68 Physical Exam GENERAL: Awake, alert, well-appearing, in no acute distress HENT: Normocephalic, atraumatic. Oropharynx unremarkable. EYES: Normal conjunctiva. Sclera non-icteric. NECK: Supple. No nuchal rigidity. FROM. No JVD. RESPIRATORY: Clear to auscultation. CARDIAC: Regular rate, normal rhythm. Extremities warm and well perfused. Pulses equal. ABDOMEN: Soft, non-distended. No tenderness to palpation. No rebound or guarding. No masses. RECTAL: Deferred. MUSCULOSKELETAL: Chest examination reveals no tenderness. The back is symmetrical on inspection without obvious abnormality. There is no CVA tenderness to palpation. No joint edema. LOWER EXTREMITIES: Calves are equal size bilaterally and non-tender. No edema. No discoloration. NEURO: Normal sensorium. No sensory or motor deficits noted. SKIN: No rash or jaundice noted. Medical Decision & Procedures ER Provider Diagnostic Interpretation: KUB CLINICAL HISTORY: 72 years-old Female presenting with follow up stool burden, hydronephrosis. TECHNIQUE: Single supine view of the abdomen was obtained. COMPARISON: CT from 02/25/2018 and plain radiograph from 01/12/2017 FINDINGS: Marked stool burden in the rectum. Gaseous distention of the remaining colon without significant stool burden. No gross pneumoperitoneum. No bowel obstruction. Atherosclerosis. Posterior lumbar fusion hardware from L4 to S1 with laminectomy defects and bone graft material with interbody spacers at L4-5 and L5-S1. Surgical clips project over the right inguinal region. Cardiomegaly. IMPRESSION: 1. Marked stool burden in the rectum. The remaining colon appears free of stool. Electronically signed by: Kin Garrett M.D. 02/26/2018 8:13 AM Dictated Date/Time: 02/26/2018 8:08 AM The status of this report is Signed CT OF THE ABDOMEN AND PELVIS WITH ORAL CONTRAST CLINICAL HISTORY: Constipation. Abdominal pain. COMPARISON STUDY: CT of the abdomen pelvis June 08, 2017. TECHNIQUE: Axial images of the abdomen and pelvis were obtained without IV contrast. Oral contrast was administered. FINDINGS: Visualized portions of the lower chest to moderate cardiomegaly and dilatation of the pulmonary arteries suggestive of pulmonary arterial hypertension. There is a small right pleural effusion. Evaluation of the abdomen and pelvis is suboptimal on this unenhanced exam. The liver is likely cirrhotic. There are gallstones within the gallbladder without evidence for acute cholecystitis. Unenhanced images of the spleen, adrenal glands and pancreas are unremarkable. There is mild left perinephric infiltration. There is mild to moderate left hydroureteronephrosis with abrupt caliber change of the distal left ureter, located 5 cm proximal to the ureterovesical junction. No ureteral calculus is identified. No definite urothelial lesion is identified although sensitivity is diminished on this unenhanced exam. Postoperative findings within the spine are noted. There is a large amount of stool within the rectum with mild perirectal infiltration. There is also lower abdominal and upper pelvic infiltration adjacent to the adnexa which is nonspecific. There is colonic diverticulosis without convincing evidence for acute diverticulitis. No pneumatosis, free air or portal venous gas is present. Bladder is moderately distended. 2.5 cm right ovarian water attenuation lesion is present. Patient is status post right nephrectomy. IMPRESSION: 1. Large amount of stool within the rectum. No bowel obstruction. Mild perirectal infiltration may reflect stercoral colitis. 2. Interval development of mild to moderate left hydroureteronephrosis with abrupt caliber change of the distal left ureter, located 5 cm proximal to the ureterovesical junction no ureteral calculus. This caliber change could be due to a recently passed calculus, stricture or occult urothelial lesion. Urologic consultation is recommended. 3. Lower abdominal and upper abdominal infiltration adjacent to the adnexa which is nonspecific. Diverticulitis is considered unlikely but be difficult to completely exclude. 4. 2.5 cm water attenuation right ovarian lesion. This may reflect an ovarian cyst however a follow-up nonemergent pelvic ultrasound is recommended to evaluate for complexity as this is abnormal in a postmenopausal patient. 5. Moderate distention of the bladder. 6. Status post right nephrectomy. Electronically signed by: Alejo Moya M.D. 02/25/2018 3:11 PM Dictated Date/Time: 02/25/2018 2:56 PM The status of this report is Signed. Draft = Not yet reviewed or approved by Radiologist. Signed = Reviewed and approved by Radiologist. <AttendingPhy></AttendingPhy> <FamilyPhy>Jodi South D.O.</FamilyPhy> < PrimaryPhy>Jodi South D.O.</PrimaryPhy> <UnitNumber>[id number]</UnitNumber> <VisitNumber>[id number]</VisitNumber> <PatientName>CRISTEL PERLA</PatientName> <DateOfBirth>1945</DateOfBirth> <Location>[facility]</Location> <ServiceDate></ServiceDate> <MNE>ESINDI</MNE> <OrderingPhy>Nirav Shah MD</ OrderingPhy> <OrderingPhyMNE>f rep ord dr rodriguez</OrderingPhyMNE> <DictatingPhyMNE> f rep dict dr rodriguez</DictatingPhyMNE> <CCListMNE>f rep ct mne</CCListMNE> < AdmittingPhyMNE>f pt admit dr rodriguez</AdmittingPhyMNE> <AttendingPhyMNE>f pt attend dr rodriguez</AttendingPhyMNE> Laboratory Results Test 02/25/18 11:30 Direct Bilirubin 0.3 mg/dl (0-0.2) Lipase 108 U/L (73-393) Influenza Type A Antigen Neg for Influ A (NEG) Influenza Type B Antigen Neg for Influ B (NEG) Labs reviewed by ED physician. Medications Administered Medications (Trade) Dose Ordered Sig/Mehdi Route Start Time Stop Time Status Last Admin Dose Admin Sodium Chloride 500 ml @ 999 mls/hr Q31M STAT IV 02/25/18 11:45 02/25/18 12:15 DC 02/25/18 11:54 999 MLS/HR Metoclopramide HCl (Reglan Inj) 10 mg NOW STAT IV 02/25/18 11:45 02/25/18 11:47 DC 02/25/18 11:54 10 MG Morphine Sulfate (MoRPHine SULFATE INJ) 2 mg STK-MED ONCE .ROUTE 02/25/18 11:50 02/25/18 11:51 DC 02/25/18 11:56 2 MG Magnesium Citrate (Citrate Of Magnesia Soln) 296 ml NOW STAT PO 02/25/18 15:18 02/25/18 15:19 DC 02/25/18 16:29 296 ML Miscellaneous (Soap Suds Enema) 1 ea NOW STAT NH 02/25/18 15:25 02/25/18 15:27 DC 02/25/18 16:30 1 EA Procedure Patient was manually disimpacted by me and tolerated the procedure well. A large amount of green stool was removed from the rectum. ED Course 1142: Past medical records reviewed. The patient was evaluated in room C2B. A complete history and physical examination was performed. 1145: Morphine sulfate 2 mg IV , Reglan 10 mg IV, NSS 500 ml @ 999 mls/hr IV 1214: I updated the patient and she is doing well. 1306: Upon reevaluation the patient is still drinking her contrast. Medical Decision Differential diagnosis: Etiologies such as appendicitis, diverticulitis, PUD, biliary pathology, UTI, pancreatitis, obstruction, mesenteric ischemia, aortic pathology, infections, inflammatory bowel disease, renal colic, as well as others were entertained. This is a 72-year-old female presents emergency department over concerns about constipation. The patient was disimpacted by myself in the emergency department. She was sent for CAT scan of the abdomen and pelvis which was concerning for large amount of constipation. I will note that the patient only has 1 kidney and her creatinine is bumped. In addition the CAT scan is concerning for hydronephrosis around her remaining kidney and I am concerned that the patient has an obstruction. For this reason I did discuss the case with both the hospitalist as well as urology. Patient and family were in agreement with the treatment plan. Medication Reconcilliation Current Medication List: was personally reviewed by me Impression Primary Impression: Constipation Additional Impression: CKD (chronic kidney disease), stage IV Scribe Attestation The scribe's documentation has been prepared under my direction and personally reviewed by me in its entirety. I confirm that the note above accurately reflects all work, treatment, procedures, and medical decision making performed by me. Departure Information Dispostion Still a Patient Referrals Jodi South D.O. (PCP) Patient Instructions My [facility] Problem Qualifiers Primary Impression: Constipation Constipation type: unspecified constipation type Qualified Codes: K59.00 - Constipation, unspecified
--- NOTE | 2018-02-25 15:13 | DIAGNOSTIC IMAGING REPORT ---
CT OF THE ABDOMEN AND PELVIS WITH ORAL CONTRAST CLINICAL HISTORY: Constipation. Abdominal pain. COMPARISON STUDY: CT of the abdomen pelvis June 08, 2017. TECHNIQUE: Axial images of the abdomen and pelvis were obtained without IV contrast. Oral contrast was administered. FINDINGS: Visualized portions of the lower chest to moderate cardiomegaly and dilatation of the pulmonary arteries suggestive of pulmonary arterial hypertension. There is a small right pleural effusion. Evaluation of the abdomen and pelvis is suboptimal on this unenhanced exam. The liver is likely cirrhotic. There are gallstones within the gallbladder without evidence for acute cholecystitis. Unenhanced images of the spleen, adrenal glands and pancreas are unremarkable. There is mild left perinephric infiltration. There is mild to moderate left hydroureteronephrosis with abrupt caliber change of the distal left ureter, located 5 cm proximal to the ureterovesical junction. No ureteral calculus is identified. No definite urothelial lesion is identified although sensitivity is diminished on this unenhanced exam. Postoperative findings within the spine are noted. There is a large amount of stool within the rectum with mild perirectal infiltration. There is also lower abdominal and upper pelvic infiltration adjacent to the adnexa which is nonspecific. There is colonic diverticulosis without convincing evidence for acute diverticulitis. No pneumatosis, free air or portal venous gas is present. Bladder is moderately distended. 2.5 cm right ovarian water attenuation lesion is present. Patient is status post right nephrectomy. IMPRESSION: 1. Large amount of stool within the rectum. No bowel obstruction. Mild perirectal infiltration may reflect stercoral colitis. 2. Interval development of mild to moderate left hydroureteronephrosis with abrupt caliber change of the distal left ureter, located 5 cm proximal to the ureterovesical junction no ureteral calculus. This caliber change could be due to a recently passed calculus, stricture or occult urothelial lesion. Urologic consultation is recommended. 3. Lower abdominal and upper abdominal infiltration adjacent to the adnexa which is nonspecific. Diverticulitis is considered unlikely but be difficult to completely exclude. 4. 2.5 cm water attenuation right ovarian lesion. This may reflect an ovarian cyst however a follow-up nonemergent pelvic ultrasound is recommended to evaluate for complexity as this is abnormal in a postmenopausal patient. 5. Moderate distention of the bladder. 6. Status post right nephrectomy. Electronically signed by: Alejo Moya M.D. 02/25/2018 3:11 PM Dictated Date/Time: 02/25/2018 2:56 PM
[2018-02-25] MEDS ORDERED: MAGNESIUM CITRATE 296 ML/BTL PO STA (15:18)
[2018-02-25] MEDS ORDERED: SOAP SUDS ENEMA PR STA (15:25)
[2018-02-25] MEDS ORDERED: ALBUTEROL HFA 8 GM INHALER INH PRN (16:45)
[2018-02-25] MEDS ORDERED: ALBUTEROL 0.083% NEBU SOLN 3 ML VIAL INH PRN (16:45)
[2018-02-25 18:15] VITALS: BP 146/81; PULSE 57; TEMP 36.7; O2SAT 91; Ht 149.9 cm; Wt 66.3 kg
--- NOTE | 2018-02-25 18:59 | History and Physical ---
History & Physical Date & Time of Service: Feb 25, 2018 at 18:49 Chief Complaint: Constipation, Hydronephrosis, Left Primary Care Physician: Jodi South D.O. History of Present Illness Patient with as least 4 days of constipation and only small amounts of diarrhea with bowel movements with left sided abdominal pain. CT abomen imaging showing stool burden and incidentally showing evidence for left hydronephrosis. Patient denies urinary tract problems and reports that her urination has not been different in recent past. Denies pain with urination. denies back pain. No costovertebral angle tenderness. ED reports fecal disimpaction and consult [facility] urology. Patient placed under observation on medical service. Past Medical/Surgical History Medical Problems: (1) Acute kidney injury (2) Afib (3) Anemia (4) ASD (atrial septal defect) (5) Atrial flutter (6) Back pain (7) Bilateral knee pain (8) Bradycardia (9) CHF (congestive heart failure) (10) CHF exacerbation (11) CHF exacerbation (12) CKD (chronic kidney disease), stage IV (13) Closed head injury (14) Concussion (15) COPD (chronic obstructive pulmonary disease) (16) COPD exacerbation (17) Cough (18) Fall (19) GERD (gastroesophageal reflux disease) (20) H/O unilateral nephrectomy (21) Heart disease (22) HLD (hyperlipidemia) (23) HTN (hypertension) (24) Hydronephrosis, left (25) Hyperkalemia (26) Hyperkalemia (27) Hypertension (28) Hypothyroid (29) Hypoxia (30) Leg swelling (31) Lower extremity edema (32) Lower extremity edema (33) Mild left ventricular systolic dysfunction (34) MRSA bacteremia (35) Pacemaker (36) Peripheral edema (37) Pneumonia (38) Pneumonia involving right lung (39) Right-sided congestive heart failure (40) Sciatica (41) Seizure (42) Sepsis (43) Solitary kidney (44) Subtherapeutic international normalized ratio (INR) (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 (46) Weakness Surgical Problems: (1) H/O thyroidectomy (2) History of appendectomy (3) S/P MVR (mitral valve repair) Family History Heart disease Hypertension Lung disease Social History Smoking Status: Former Smoker Drug Use: none Marital Status: single Housing status: lives with family Occupational Status: disabled Immunizations History of Influenza Vaccine: Yes Influenza Vaccine Date: Oct 06, 2016 History of Tetanus Vaccine?: Yes Tetanus Immunization Date: Jul 08, 2015 History of Pneumococcal: Yes Pneumococcal Date: May 20, 2015 Allergies Coded Allergies: Levofloxacin (Verified Allergy, Intermediate, HIVES, 02/25/18) Quinolones (Verified Allergy, Intermediate, HIVES, 02/25/18) Ranitidine (Verified Allergy, Intermediate, HIVES, 02/25/18) Sulfamethoxazole (Verified Allergy, Intermediate, HIVES, 02/25/18) Trimethoprim (Verified Allergy, Intermediate, HIVES, 02/25/18) Clarithromycin (Verified Allergy, Mild, HIVES, CAN TAKE ZITHROMAX W/O PROB , 02/25/18) Amoxicillin (Verified Allergy, Unknown, HIVES, 02/25/18) Omeprazole (Verified Allergy, Unknown, HAS HAD PROTONIX, 02/25/18) Home Medications Scheduled Brinzolamide Oph (Azopt Oph), 1 DROP OPB TID Bumetanide (Bumex), 1 MG PO DAILY Calcitriol (Calcitriol), 0.25 MCG PO DAILY Donepezil Hydrochloride (Aricept), 10 MG PO HS Ferrous Sulfate (Iron), 1 TAB PO BID Fluticasone Prop/Salmeterol (Advair Diskus 250/50 60 Dose), 1 PUFF INH BID Fluticasone Propionate (Nasal) (Flonase Allergy Relief), 1 SPRAY PAULIE BID Gabapentin (Neurontin), 300 MG PO DAILY Gabapentin (Neurontin), 600 MG PO AMHS Home O2 Therapy (Oxygen), 3 LITERS NA CONTINOUS Hydralazine HCl (Hydralazine HCl), 10 MG PO BID Levothyroxine Sodium (Levothyroxine Sodium), 75 MCG PO DAILY Loratadine (Claritin), 10 MG PO DAILY Metoprolol Succinate (Metoprolol Succinate ER), 25 MG PO DAILY Nitroglycerin (Nitrostat), 0.4 MG SL PRN UD Oxybutynin Chloride (Oxybutynin Chloride Er), 5 MG PO DAILY Pantoprazole (Pantoprazole Sodium), 40 MG PO DAILY Pravastatin Sodium (Pravastatin Sodium), 80 MG PO QPM Umeclidinium [place] (Incruse Ellipta), 1 INHA PO DAILY Warfarin Sod (Jantoven), 2.5 MG PO 4XWK Warfarin Sodium (Warfarin Sodium), 5 MG PO 3XWK Scheduled PRN Albuterol Sulf (Proventil 0.083% 2.5MG/3ML), 2.5 MG INH Q4H PRN for SOB/Wheezing Albuterol Sulfate (Proair Respiclick), 2 PUFFS INH QID PRN for Shortness of Breath Review of Systems Constitutional: No fever Eyes: No worsening of vision, No eye pain ENT: No hearing loss, No trouble swallowing Respiratory: No cough, No sputum, No wheezing, No shortness of breath Cardiovascular: No chest pain, No palpitations Abdomen: + pain, + nausea, + vomiting, + diarrhea, + constipation Musculoskeletal: No joint pain, No swelling, No calf pain Genitourinary - Female: No dysuria, No urinary retention Neurologic: No numbness/tingling Hematologic / Lymphatic: No abnormal bleeding/bruising Integumentary: No rash, No itch Physical Exam Vital Signs Date Time Temp Pulse Resp B/P (MAP) Pulse Ox O2 Delivery O2 Flow Rate FiO2 02/25/18 17:40 57 126/78 97 Nasal Cannula 3.0 02/25/18 16:32 76 117/46 92 Nasal Cannula 3.0 02/25/18 16:22 48 02/25/18 15:11 65 96/53 93 Nasal Cannula 3.0 02/25/18 14:33 49 13 88 02/25/18 14:28 49 13 85 02/25/18 14:23 50 13 85 02/25/18 14:18 50 13 85 02/25/18 14:13 50 15 89 02/25/18 14:08 62 15 95 02/25/18 14:03 51 16 94 02/25/18 13:58 51 17 94 02/25/18 13:53 69 17 80 02/25/18 13:48 51 14 86 02/25/18 13:43 50 13 90 02/25/18 13:38 50 13 90 02/25/18 13:33 51 18 90 02/25/18 13:28 51 12 91 02/25/18 13:23 52 13 90 02/25/18 13:18 53 15 85 02/25/18 13:13 53 18 81 02/25/18 13:08 50 15 80 02/25/18 13:03 50 15 94 02/25/18 12:58 62 15 95 02/25/18 12:53 66 18 02/25/18 12:48 51 16 89 02/25/18 12:43 52 20 95 02/25/18 12:38 58 15 94 02/25/18 12:33 51 13 92 02/25/18 12:28 51 16 91 02/25/18 12:23 57 17 85 02/25/18 12:18 51 17 92 02/25/18 12:16 51 02/25/18 12:13 56 16 92 02/25/18 12:08 60 15 90 02/25/18 12:03 64 18 89 02/25/18 11:58 55 15 94 02/25/18 11:53 57 18 92 02/25/18 11:48 54 15 95 02/25/18 11:46 93 Nasal Cannula 5.0 02/25/18 11:45 93 Nasal Cannula 5.0 02/25/18 11:43 60 16 86 02/25/18 11:38 53 13 90 02/25/18 11:38 37.6 58 24 155/68 93 Nasal Cannula 5.0 02/25/18 11:35 155/68 General Appearance: WD/WN, no apparent distress Head: normocephalic, atraumatic Eyes: normal inspection, EOMI, sclerae normal ENT: normal ENT inspection, hearing grossly normal, pharynx normal Neck: supple, no JVD, trachea midline Respiratory/Chest: chest non-tender, lungs clear, normal breath sounds, no respiratory distress, no accessory muscle use Cardiovascular: no edema, no JVD, normal peripheral pulses, + bradycardia Abdomen/GI: normal bowel sounds, soft, no organomegaly, no pulsatile mass, + tenderness (left lower quadrant tenderness) Back: normal inspection, no CVA tenderness, no muscle spasm, normal range of motion Extremities/Musculoskelatal: normal inspection, no pedal edema, normal range of motion, non-tender Neurologic/Psych: no motor/sensory deficits, alert, normal mood/affect Skin: normal color, warm/dry, no rash Diagnostics Laboratory Results Results Past 24 Hours Test 02/25/18 11:30 02/25/18 16:30 02/25/18 16:36 02/25/18 18:15 Range/Units White Blood Count 7.64 4.8-10.8 K/uL Red Blood Count 3.47 4.2-5.4 M/uL Hemoglobin 11.3 12.0-16.0 g/dL Hematocrit 34.7 37-47 % Mean Corpuscular Volume 100.0 80-100 fL Mean Corpuscular Hemoglobin 32.6 25-34 pg Mean Corpuscular Hemoglobin Concent 32.6 32-36 g/dl Platelet Count 134 130-400 K/uL Mean Platelet Volume 12.6 7.4-10.4 fL Neutrophils (%) (Auto) 74.1 % Lymphocytes (%) (Auto) 17.3 % Monocytes (%) (Auto) 6.5 % Eosinophils (%) (Auto) 1.3 % Basophils (%) (Auto) 0.5 % Neutrophils # (Auto) 5.66 1.4-6.5 K/uL Lymphocytes # (Auto) 1.32 1.2-3.4 K/uL Monocytes # (Auto) 0.50 0.11-0.59 K/uL Eosinophils # (Auto) 0.10 0-0.5 K/uL Basophils # (Auto) 0.04 0-0.2 K/uL RDW Standard Deviation 53.6 36.4-46.3 fL RDW Coefficient of Variation 14.8 11.5-14.5 % Immature Granulocyte % (Auto) 0.3 % Immature Granulocyte # (Auto) 0.02 0.00-0.02 K/uL Sodium Level 141 136-145 mmol/L Potassium Level 4.1 3.5-5.1 mmol/L Chloride Level 101 98-107 mmol/L Carbon Dioxide Level 27 21-32 mmol/L Anion Gap 13.0 3-11 mmol/L Blood Urea Nitrogen 81 7-18 mg/dl Creatinine 2.10 0.60-1.20 mg/dl Est Creatinine Clear Calc Drug Dose 19.8 ml/min Estimated GFR () 26.4 Estimated GFR (Non- 22.8 BUN/Creatinine Ratio 38.6 10-20 Random Glucose 70 70-99 mg/dl Calcium Level 9.3 8.5-10.1 mg/dl Total Bilirubin 0.9 0.2-1 mg/dl Direct Bilirubin 0.3 0-0.2 mg/dl Aspartate Amino Transf (AST/SGOT) 22 15-37 U/L Alanine Aminotransferase (ALT/SGPT) 17 12-78 U/L Alkaline Phosphatase 74 45-117 U/L Total Protein 7.5 6.4-8.2 gm/dl Albumin 3.1 3.4-5.0 gm/dl Lipase 108 73-393 U/L Influenza Type A Antigen Neg for Influ A NEG Influenza Type B Antigen Neg for Influ B NEG Microbiology Results 02/25/18 MRSA DNA Surveillance Screen, Received Pending 02/25/18 Urine Culture, Received Pending Diagnostic Radiology CT abdomen 1. Large amount of stool within the rectum. No bowel obstruction. Mild perirectal infiltration may reflect stercoral colitis. 2. Interval development of mild to moderate left hydroureteronephrosis with abrupt caliber change of the distal left ureter, located 5 cm proximal to the ureterovesical junction no ureteral calculus. This caliber change could be due to a recently passed calculus, stricture or occult urothelial lesion. Urologic consultation is recommended. 3. Lower abdominal and upper abdominal infiltration adjacent to the adnexa which is nonspecific. Diverticulitis is considered unlikely but be difficult to completely exclude. 4. 2.5 cm water attenuation right ovarian lesion. This may reflect an ovarian cyst however a follow-up nonemergent pelvic ultrasound is recommended to evaluate for complexity as this is abnormal in a postmenopausal patient. 5. Moderate distention of the bladder. 6. Status post right nephrectomy. Impression Assessment and Plan Constipation -as per patient she did not have normal bowel movement for 4 days and when she had bowel movement it was small amounts of diarrhea -CT abdomen 02/25/18: Large amount of stool within the rectum. No bowel obstruction. Mild perirectal infiltration may reflect stercoral colitis. -as per ED, patient has had fecal disimpaction -enema prn -bowel regimen of senna and Miralax -avoid narcotics, stop home dose iron -KUB ordered for 02/26/18 AM History of Hypothyroidism -continue Levothyroxine -Check TSH/T4 Renal -CKD stage IV -history of right nephrectomy -CT abdomen 02/25/18: Interval development of mild to moderate left hydroureteronephrosis with abrupt caliber change of the distal left ureter, located 5 cm proximal to the ureterovesical junction no ureteral calculus. This caliber change could be due to a recently passed calculus, stricture or occult urothelial lesion -continue home oxybiotin -romero requested -[facility] [place] [facility] consultation requested -KUB ordered for 02/26/18 AM Blood pressure control -continue home hydralazine Cardiac: chronic diastolic and right sided heart failure, history of Paroxysmal atrial fibrillation with history of tachybrady syndrome -continue home bumetanide and anticoagulation with Coumadin Other CT abdomen findings - 2.5 cm water attenuation right ovarian lesion. This may reflect an ovarian cyst however a follow-up nonemergent pelvic ultrasound is recommended to evaluate for complexity as this is abnormal in a postmenopausal patient. -will hold off on pelvic ultrasound until constipation improves COPD history -continue home inhalers Diet: clear liquids for now as tolerated DVT ppx: on Coumadin for now, if urology deems necessary to have invasive intervention for the left hydronephrosis then will consider stopping Coumadin Resuscitation Status VTE Prophylaxis Will order VTE Prophylaxis: Yes
[2018-02-25 20:14] LABS: INR 3.9 (0.9-1.1)
[2018-02-25] MEDS ORDERED: IV FLUIDS COMPLETED PRN (21:00)
[2018-02-25] MEDS: HydrALAZINE 10 MG TAB PO SCH (21:02)
[2018-02-25] MEDS: DONEPEZIL HCL 10 MG TAB PO SCH (21:02)
[2018-02-25] MEDS: GABAPENTIN 600 MG TAB PO SCH (21:02)
[2018-02-25] MEDS: FLUTICASONE/SALMETEROL 250/50 (ADVAIR) 14 PUFF/1 INHALER INH SCH (21:02)
[2018-02-25 22:40] VITALS: BP 111/63; PULSE 52; TEMP 37.2; O2SAT 80
[2018-02-25 22:51] VITALS: O2SAT 94
[2018-02-26] MEDS: LEVOTHYROXINE 75 MCG TAB PO SCH (05:21)
[2018-02-26 07:34] VITALS: BP 119/43; PULSE 45; TEMP 37.2; O2SAT 94
[2018-02-26 08:03] LABS: INR 5.3 (0.9-1.1)
--- NOTE | 2018-02-26 08:15 | DIAGNOSTIC IMAGING REPORT ---
KUB CLINICAL HISTORY: 72 years-old Female presenting with follow up stool burden, hydronephrosis. TECHNIQUE: Single supine view of the abdomen was obtained. COMPARISON: CT from 02/25/2018 and plain radiograph from 01/12/2017 FINDINGS: Marked stool burden in the rectum. Gaseous distention of the remaining colon without significant stool burden. No gross pneumoperitoneum. No bowel obstruction. Atherosclerosis. Posterior lumbar fusion hardware from L4 to S1 with laminectomy defects and bone graft material with interbody spacers at L4-5 and L5-S1. Surgical clips project over the right inguinal region. Cardiomegaly. IMPRESSION: 1. Marked stool burden in the rectum. The remaining colon appears free of stool. Electronically signed by: Kin Garrett M.D. 02/26/2018 8:13 AM Dictated Date/Time: 02/26/2018 8:08 AM
[2018-02-26 08:17] LABS: ALBUMIN 2.6 gm/dl (3.4-5.0); CALCIUM 8.6 mg/dl (8.5-10.1); CREATININE 2.14 mg/dl (0.60-1.20); POTASSIUM 3.9 mmol/L (3.5-5.1)
[2018-02-26 08:20] LABS: TOTAL PROTEIN 6.1 gm/dl (6.4-8.2)
[2018-02-26 08:26] LABS: HEMATOCRIT 30.3 % (37-47); HEMOGLOBIN 10.2 g/dL (12.0-16.0); MEAN CORPUSCULAR HEMOGLOBIN 33.3 pg (25-34); MEAN CORPUSCULAR HGB CONC 33.7 g/dl (32-36); MEAN PLATELET VOLUME 12.6 fL (7.4-10.4); PLATELET COUNT 120 K/uL (130-400); RED CELL DISTRIBUTION WIDTH CV 14.9 % (11.5-14.5); RED CELL DISTRIBUTION WIDTH SD 53.6 fL (36.4-46.3); WHITE BLOOD COUNT 6.59 K/uL (4.8-10.8)
[2018-02-26 08:27] LABS: BASO % 0.3 %; BASO ABS # 0.02 K/uL (0-0.2); EOS % 2.3 %; EOS ABS # 0.15 K/uL (0-0.5); IG# 0.01 K/uL (0.00-0.02); LYMPH % 18.1 %; LYMPH ABS # 1.19 K/uL (1.2-3.4); MONO ABS # 0.59 K/uL (0.11-0.59); NEUT % 70.1 %; NEUT ABS # 4.63 K/uL (1.4-6.5)
[2018-02-26 08:40] VITALS: BP 99/47; PULSE 59
[2018-02-26] MEDS: FLUTICASONE/SALMETEROL 250/50 (ADVAIR) 14 PUFF/1 INHALER INH SCH ×2 (08:41→19:55)
[2018-02-26] MEDS: BUMETANIDE 1 MG TAB PO SCH (08:43)
[2018-02-26] MEDS: GABAPENTIN 600 MG TAB PO SCH ×2 (08:43→19:56)
[2018-02-26] MEDS: SENNA 8.6 MG TAB PO SCH (08:44)
[2018-02-26] MEDS: POLYETHYLENE (MIRALAX) 17 GM PACK PO SCH (08:45)
[2018-02-26] MEDS: OXYBUTYNIN CHLORIDE 5 MG TABCR PO SCH (08:45)
[2018-02-26] MEDS ORDERED: METOPROLOL SUCC 25MG EXT REL TAB PO SCH (09:00)
[2018-02-26] MEDS: HydrALAZINE 10 MG TAB PO SCH ×2 (09:00→19:56)
--- NOTE | 2018-02-26 11:09 | Urology Consultation ---
History General Date of Service: Feb 26, 2018. Chief Complaint: left hydronephrosis Primary Care Physician: Jodi South D.O. Pt seen a urologist before?: Yes (not for many years) If yes, why?: renal cyst History of Present Illness 72 yo female presents to [facility] with c/o back pain. Found to have fecal retention and left hydronephrosis without stone on CT scan. Also noted to have a Cr of 2.10 on admission. Baseline near 1.4. She has a hx of CKD stage IV. 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 Pt reports her back pain has improved since moving her bowels. Denies n/v. Denies dysuria or hematuria. Romero catheter placed yesterday for suspected retention on CT. Draining clear, yellow urine this morning. Cr remains 2.14. UC&S pending. Imaging Imaging: CT Laboratory Last 24 Hours Test 02/25/18 11:30 02/25/18 18:15 02/25/18 19:19 02/26/18 07:20 White Blood Count 7.64 K/uL 6.59 K/uL Red Blood Count 3.47 M/uL 3.06 M/uL Hemoglobin 11.3 g/dL 10.2 g/dL Hematocrit 34.7 % 30.3 % Mean Corpuscular Volume 100.0 fL 99.0 fL Mean Corpuscular Hemoglobin 32.6 pg 33.3 pg Mean Corpuscular Hemoglobin Concent 32.6 g/dl 33.7 g/dl Platelet Count 134 K/uL 120 K/uL Mean Platelet Volume 12.6 fL 12.6 fL Neutrophils (%) (Auto) 74.1 % 70.1 % Lymphocytes (%) (Auto) 17.3 % 18.1 % Monocytes (%) (Auto) 6.5 % 9.0 % Eosinophils (%) (Auto) 1.3 % 2.3 % Basophils (%) (Auto) 0.5 % 0.3 % Neutrophils # (Auto) 5.66 K/uL 4.63 K/uL Lymphocytes # (Auto) 1.32 K/uL 1.19 K/uL Monocytes # (Auto) 0.50 K/uL 0.59 K/uL Eosinophils # (Auto) 0.10 K/uL 0.15 K/uL Basophils # (Auto) 0.04 K/uL 0.02 K/uL RDW Standard Deviation 53.6 fL 53.6 fL RDW Coefficient of Variation 14.8 % 14.9 % Immature Granulocyte % (Auto) 0.3 % 0.2 % Immature Granulocyte # (Auto) 0.02 K/uL 0.01 K/uL Sodium Level 141 mmol/L 137 mmol/L Potassium Level 4.1 mmol/L 3.9 mmol/L Chloride Level 101 mmol/L 100 mmol/L Carbon Dioxide Level 27 mmol/L 30 mmol/L Anion Gap 13.0 mmol/L 7.0 mmol/L Blood Urea Nitrogen 81 mg/dl 82 mg/dl Creatinine 2.10 mg/dl 2.14 mg/dl Est Creatinine Clear Calc Drug Dose 19.8 ml/min 19.4 ml/min Estimated GFR () 26.4 25.8 Estimated GFR (Non- 22.8 22.3 BUN/Creatinine Ratio 38.6 38.1 Random Glucose 70 mg/dl 77 mg/dl Calcium Level 9.3 mg/dl 8.6 mg/dl Total Bilirubin 0.9 mg/dl 0.5 mg/dl Direct Bilirubin 0.3 mg/dl Aspartate Amino Transf (AST/SGOT) 22 U/L 19 U/L Alanine Aminotransferase (ALT/SGPT) 17 U/L 11 U/L Alkaline Phosphatase 74 U/L 59 U/L Total Protein 7.5 gm/dl 6.1 gm/dl Albumin 3.1 gm/dl 2.6 gm/dl Lipase 108 U/L Influenza Type A Antigen Neg for Influ A Influenza Type B Antigen Neg for Influ B Urine Color YELLOW Urine Appearance CLEAR Urine pH 5.0 Urine Specific [place] 1.012 Urine Protein NEG Urine Glucose (UA) NEG Urine Ketones NEG Urine Occult Blood NEG Urine Nitrite NEG Urine Bilirubin NEG Urine Urobilinogen NEG Urine Leukocyte Esterase NEG Thyroid Stimulating Hormone (TSH) 1.040 uIu/ml Thyroxine (T4) 7.6 mcg/dl Prothrombin Time 40.1 SECONDS 53.5 SECONDS Prothromb Time International Ratio 3.9 5.3 Platelet Estimate DECREASED Globulin 3.5 gm/dl Albumin/Globulin Ratio 0.7 Problem List Medical Problems: (1) Acute kidney injury Status: Acute (2) Atrial flutter Status: Acute (3) Back pain Status: Acute (4) Bilateral knee pain Status: Acute (5) CHF (congestive heart failure) Status: Acute (6) CHF exacerbation Status: Acute (7) Closed head injury Status: Acute (8) Concussion Status: Acute (9) Constipation Status: Acute (10) COPD exacerbation Status: Acute (11) Fall Status: Acute (12) Hyperkalemia Status: Acute (13) Hypoxia Status: Acute (14) Lower extremity edema Status: Acute (15) Peripheral edema Status: Acute (16) Pneumonia Status: Acute (17) Pneumonia involving right lung Status: Acute (18) Sciatica Status: Acute (19) Seizure Status: Acute (20) Sepsis Status: Acute (21) Subtherapeutic international normalized ratio (INR) Status: Acute (22) Weakness Status: Acute Past History A Fib, chronic back pain, congestive heart failure, COPD, coronary artery disease, diabetes, GERD, hypertension, hypothyroidism, kidney stones, pneumonia , renal disease, seizure, V tach, other Past Surgical History: appendectomy, colonoscopy, nephrectomy, thyroidectomy, tonsillectomy, other (mitral valve repair ) Family History Heart disease Hypertension Lung disease Social History Hx Tobacco Use In Past Year?: No Smoking: non-smoker Alcohol: never Drug use: none Marital status: single Housing status: lives with family Occupation status: disabled Immunizations History of Influenza Vaccine: Yes Influenza Vaccine Date: Oct 06, 2016 History of Tetanus Vaccine?: Yes Tetanus Immunization Date: Jul 08, 2015 History of Pneumococcal: Yes Pneumococcal Date: May 20, 2015 History of MDRO No Allergies Coded Allergies: Levofloxacin (Verified Allergy, Intermediate, HIVES, 02/25/18) Quinolones (Verified Allergy, Intermediate, HIVES, 02/25/18) Ranitidine (Verified Allergy, Intermediate, HIVES, 02/25/18) Sulfamethoxazole (Verified Allergy, Intermediate, HIVES, 02/25/18) Trimethoprim (Verified Allergy, Intermediate, HIVES, 02/25/18) Clarithromycin (Verified Allergy, Mild, HIVES, CAN TAKE ZITHROMAX W/O PROB , 02/25/18) Amoxicillin (Verified Allergy, Unknown, HIVES, 02/25/18) Omeprazole (Verified Allergy, Unknown, HAS HAD PROTONIX, 02/25/18) Medications Home Medications: Home Meds and Scripts Medications Dose Route/Sig Max Daily Dose Days Date Category Dose Instructions Jantoven (Warfarin Sodium) 5 Mg Tab 2.5 Mg PO 4XWK 02/25/18 Reported TUES,THURS,SAT,SUN Bumex (Bumetanide) 1 Mg Tab 1 Mg PO DAILY 30 08/24/17 Rx Metoprolol Succinate ER (Metoprolol Succinate) 25 Mg Tabcr 25 Mg PO DAILY 08/24/17 Rx Warfarin Sodium 5 Mg Tab 5 Mg PO 3XWK 08/11/17 Reported MON,WED,FRI Pantoprazole Sodium (Pantoprazole) 40 Mg Tab 40 Mg PO DAILY 08/11/17 Reported Azopt Oph (Brinzolamide) 1 % Ciara 1 Drop OPB TID 05/03/17 Reported Incruse Ellipta (Umeclidinium [place]) 62.5 Mcg/Inh Inh 1 Inha PO DAILY 05/03/17 Reported Claritin (Loratadine) 10 Mg Tab 10 Mg PO DAILY 05/03/17 Reported Proventil 0.083% 2.5MG/3ML (Albuterol Sulf) 2.5 Mg/3 Ml Nebu 2.5 Mg INH Q4H PRN 01/09/17 Reported Proair Respiclick (Albuterol Sulfate) 108 Mcg/Act Aer 2 Puffs INH QID PRN 01/09/17 Reported Levothyroxine Sodium 75 Mcg Tab 75 Mcg PO DAILY 06/08/16 Reported Hydralazine HCl 10 Mg Tab 10 Mg PO BID 06/08/16 Reported Iron (Ferrous Sulfate) 325 Mg Tab 1 Tab PO BID 06/08/16 Reported Oxygen Gas 3 Liters NA CONTINOUS 04/13/16 Reported Nitrostat (Nitroglycerin) 0.4 Mg Tab 0.4 Mg SL PRN UD 08/13/15 Reported Flonase Allergy Relief (Fluticasone Propionate (Nasal)) 50 Mcg/Act Spr 1 Avalon PAULIE BID 08/13/15 Reported Neurontin (Gabapentin) 300 Mg Cap 600 Mg PO AMHS 01/17/15 Reported Neurontin (Gabapentin) 300 Mg Cap 300 Mg PO DAILY 01/17/15 Reported 1 HOUR BEFORE LUNCH Advair Diskus 250/50 60 Dose (Fluticasone Prop/Salmeterol) 1 Ea Aerp 1 Puff INH BID 07/16/14 Reported Calcitriol 0.25 Mcg Cap 0.25 Mcg PO DAILY 07/16/14 Reported Pravastatin Sodium 80 Mg Tab 80 Mg PO QPM 07/16/14 Reported Oxybutynin Chloride Er (Oxybutynin Chloride) 5 Mg Tab 5 Mg PO DAILY 07/16/14 Reported Aricept (Donepezil Hydrochloride) 10 Mg Tab 10 Mg PO HS 03/01/12 Reported Inpatient Medications: Current Inpatient Medications Medications (Trade) Dose Ordered Sig/Mehdi Route Start Time Stop Time Status Last Admin Dose Admin Ioversol (Optiray 320) 125 ml UD PRN IV 02/25/18 12:00 03/01/18 11:59 Senna (Senokot Tab) 17.2 mg QAM PO 02/26/18 09:00 03/28/18 08:59 02/26/18 08:44 17.2 MG Polyethylene (Miralax Powder Packet) 17 gm DAILY PO 02/26/18 09:00 03/28/18 08:59 02/26/18 08:45 17 GM Albuterol Sulfate (Ventolin 0.083% 2.5MG/3ML Neb) 2.5 mg Q4H PRN INH 02/25/18 16:45 03/27/18 16:44 Bumetanide (Bumex Tab) 1 mg DAILY PO 02/26/18 09:00 03/28/18 08:59 02/26/18 08:43 1 MG Donepezil HCl (Aricept Tab) 10 mg HS PO 02/25/18 21:00 03/27/18 20:59 02/25/18 21:02 10 MG Salmeterol Xinafoate/ Fluticasone (Advair Diskus 250/50 Inh) 1 puff BID INH 02/25/18 21:00 03/27/18 20:59 02/26/18 08:41 1 PUFF Gabapentin (Neurontin Cap) 300 mg DAILY@1100 PO 02/26/18 11:00 03/28/18 10:59 Gabapentin (Neurontin Tab) 600 mg AMHS PO 02/25/18 21:00 03/27/18 20:59 02/26/18 08:43 600 MG Hydralazine HCl (Apresoline Tab) 10 mg BID PO 02/25/18 21:00 03/27/18 20:59 02/25/18 21:02 10 MG Levothyroxine Sodium (Synthroid Tab) 75 mcg DAILYBB PO 02/26/18 06:00 03/28/18 05:59 02/26/18 05:21 75 MCG Metoprolol Succinate (Toprol Xl Tab) 25 mg DAILY PO 02/26/18 09:00 03/28/18 08:59 Oxybutynin Chloride (Ditropan-Xl Tab) 5 mg DAILY PO 02/26/18 09:00 03/28/18 08:59 02/26/18 08:45 5 MG Albuterol (Ventolin Hfa Inhaler) 2 puffs QID PRN INH 02/25/18 16:45 03/27/18 16:44 Miscellaneous Information (Order Awaiting Action) 1 ea QS N/A 02/26/18 00:00 03/28/18 00:00 Miscellaneous (Iv Fluids Completed) 1 ea PRN PRN N/A 02/25/18 21:00 02/25/19 20:59 Review of Systems Review of Systems Constitutional: No fever, No chills Eyes: No double vision Neurological: No dizzy Endocrine: No excessive thirst Gastrointestinal: No abdominal pain, No nausea, No vomiting, No constipation Cardiovascular: No chest pain Respiratory: No shortness of breath Skin: No rash Musculoskeletal: No back pain Female : No painful urination, No blood in urine Physical Exam Vital Signs: Vital Signs Past 12 Hours Date Time Temp Pulse Resp B/P (MAP) Pulse Ox O2 Delivery O2 Flow Rate FiO2 02/26/18 08:40 59 99/47 (64) 02/26/18 08:20 Oxymask 4.0 02/26/18 07:34 37.2 45 16 119/43 (68) 94 3.0 02/26/18 00:45 Oxymask 4.0 Physical Exam: General Appearance: no apparent distress Eyes: bilateral eyes normal inspection ENT: hearing grossly normal Neck: no JVD Respiratory/Chest: no respiratory distress, no accessory muscle use Cardiovascular: no JVD Extremities: normal inspection Neurologic/Psychiatric: alert, normal mood/affect, oriented x 3 Skin: normal color Assessment & Plan Assessment & Plan A/P: Left hydronephrosis, ARF, incomplete bladder emptying No surgical intervention planned at this time. Hydronephrosis ? r/t incomplete bladder emptying. No evidence for stone on CT. Plan to leave romero catheter in place and continue to monitor renal function. Consider repeating a renal u/s in a few days to see if hydronephrosis has improved with romero in place. Thanks for the consult. Will continue to follow along with primary service.
[2018-02-26] MEDS: GABAPENTIN 300 MG CAP PO SCH (11:23)
[2018-02-26 15:23] VITALS: BP 115/55; PULSE 46; TEMP 36.3; O2SAT 92
[2018-02-26] MEDS ORDERED: WARFARIN SOD 2.5 MG TAB PO SCH (16:00)
[2018-02-26] MEDS ORDERED: WARFARIN SOD 5 MG TAB PO SCH (16:00)
--- NOTE | 2018-02-26 17:40 | Progress Note ---
Internal Med Progress Note Date of Service: Feb 26, 2018. Provider Documentation: SUBJECTIVE: Patient reports bowel movement today and abdominal pain symptoms resolved after bowel movement OBJECTIVE: Exam: General- no acute distress Eyes- EOMI Neck - no JVD Lungs- good air entry, no wheezing Heart- bradycardic Abdomen- soft, nontender, + bowel sounds Extremities- no edema ASSESSMENT & PLAN: Constipation -as per patient she did not have normal bowel movement for 4 days and when she had bowel movement it was small amounts of diarrhea -CT abdomen 02/25/18: Large amount of stool within the rectum. No bowel obstruction. Mild perirectal infiltration may reflect stercoral colitis. -as per ED, patient has had fecal disimpaction -enema prn -bowel regimen of senna and Miralax -avoid narcotics, stopped home dose iron -KUB 02/26/18: Marked stool burden in the rectum. The remaining colon appears free of stool -patient reports bowel movement on 02/26/18 History of Hypothyroidism and adequate T4 levels -continue Levothyroxine Renal -CKD stage IV -history of right nephrectomy -CT abdomen 02/25/18: Interval development of mild to moderate left hydroureteronephrosis with abrupt caliber change of the distal left ureter, located 5 cm proximal to the ureterovesical junction no ureteral calculus. This caliber change could be due to a recently passed calculus, stricture or occult urothelial lesion -continue home Oxybutynin -patient has been evaluated by [facility] urology service and has romero; the left hydronephrosis may be secondary to constipation versus bladder outlet obstruction and romero is to remain in place for now Blood pressure control -continue home hydralazine Cardiac: chronic diastolic and right sided heart failure, history of Paroxysmal atrial fibrillation with history of tachybrady syndrome -continue home bumetanide -hold coumadin as INR supratherapeutic 5.3 -has been on metoprolol 25 mg daily at home but noted to be bradycardic to the 40s and 50s. will change medication to 12.5 mg daily with holding parameters if heart rate less than [address] abdomen findings - 2.5 cm water attenuation right ovarian lesion. This may reflect an ovarian cyst however a follow-up nonemergent pelvic ultrasound is recommended to evaluate for complexity as this is abnormal in a postmenopausal patient. -will hold off on pelvic ultrasound until constipation resolved COPD history -continue home inhalers Diet: clear liquids for now as tolerated Patient generally in bed during hospital evaluation Patient was to be seen by physical therapy on 02/26/18 but did not participate DVT ppx: supratherapeutic INR 5.3 secondary to Coumadin Vital Signs: Date Time Temp Pulse Resp B/P (MAP) Pulse Ox O2 Delivery O2 Flow Rate FiO2 02/26/18 15:23 36.3 46 22 115/55 (75) 92 Oxymask 4.0 02/26/18 08:40 59 99/47 (64) 02/26/18 08:20 Oxymask 4.0 02/26/18 07:34 37.2 45 16 119/43 (68) 94 3.0 02/26/18 00:45 Oxymask 4.0 02/25/18 22:51 94 Oxymask 4.0 02/25/18 22:40 37.2 52 18 111/63 (79) 80 Nasal Cannula 3.0 02/25/18 18:15 36.7 57 20 146/81 91 Nasal Cannula 3.0 02/25/18 18:15 91 Nasal Cannula 3.0 Lab Results: Results Past 24 Hours Test 02/25/18 18:15 02/25/18 19:19 02/26/18 07:20 Range/Units Urine Color YELLOW Urine Appearance CLEAR CLEAR Urine pH 5.0 4.5-7.5 Urine Specific [place] 1.012 1.000-1.030 Urine Protein NEG NEG Urine Glucose (UA) NEG NEG Urine Ketones NEG NEG Urine Occult Blood NEG NEG Urine Nitrite NEG NEG Urine Bilirubin NEG NEG Urine Urobilinogen NEG NEG Urine Leukocyte Esterase NEG NEG Thyroid Stimulating Hormone (TSH) 1.040 0.300-4.500 uIu/ml Thyroxine (T4) 7.6 4.5-10.9 mcg/dl Prothrombin Time 40.1 53.5 9.0-12.0 SECONDS Prothromb Time International Ratio 3.9 5.3 0.9-1.1 White Blood Count 6.59 4.8-10.8 K/uL Red Blood Count 3.06 4.2-5.4 M/uL Hemoglobin 10.2 12.0-16.0 g/dL Hematocrit 30.3 37-47 % Mean Corpuscular Volume 99.0 80-100 fL Mean Corpuscular Hemoglobin 33.3 25-34 pg Mean Corpuscular Hemoglobin Concent 33.7 32-36 g/dl Platelet Count 120 130-400 K/uL Mean Platelet Volume 12.6 7.4-10.4 fL Neutrophils (%) (Auto) 70.1 % Lymphocytes (%) (Auto) 18.1 % Monocytes (%) (Auto) 9.0 % Eosinophils (%) (Auto) 2.3 % Basophils (%) (Auto) 0.3 % Neutrophils # (Auto) 4.63 1.4-6.5 K/uL Lymphocytes # (Auto) 1.19 1.2-3.4 K/uL Monocytes # (Auto) 0.59 0.11-0.59 K/uL Eosinophils # (Auto) 0.15 0-0.5 K/uL Basophils # (Auto) 0.02 0-0.2 K/uL RDW Standard Deviation 53.6 36.4-46.3 fL RDW Coefficient of Variation 14.9 11.5-14.5 % Immature Granulocyte % (Auto) 0.2 % Immature Granulocyte # (Auto) 0.01 0.00-0.02 K/uL Platelet Estimate DECREASED Sodium Level 137 136-145 mmol/L Potassium Level 3.9 3.5-5.1 mmol/L Chloride Level 100 98-107 mmol/L Carbon Dioxide Level 30 21-32 mmol/L Anion Gap 7.0 3-11 mmol/L Blood Urea Nitrogen 82 7-18 mg/dl Creatinine 2.14 0.60-1.20 mg/dl Est Creatinine Clear Calc Drug Dose 19.4 ml/min Estimated GFR () 25.8 Estimated GFR (Non- 22.3 BUN/Creatinine Ratio 38.1 10-20 Random Glucose 77 70-99 mg/dl Calcium Level 8.6 8.5-10.1 mg/dl Total Bilirubin 0.5 0.2-1 mg/dl Aspartate Amino Transf (AST/SGOT) 19 15-37 U/L Alanine Aminotransferase (ALT/SGPT) 11 12-78 U/L Alkaline Phosphatase 59 45-117 U/L Total Protein 6.1 6.4-8.2 gm/dl Albumin 2.6 3.4-5.0 gm/dl Globulin 3.5 2.5-4.0 gm/dl Albumin/Globulin Ratio 0.7 0.9-2 Microbiology Results 02/25/18 MRSA DNA Surveillance Screen - Final, Complete Specimen Negative for MRSA by DNA Probe 02/25/18 Urine Culture - Preliminary, Resulted NO GROWTH - LESS THAN 1,000 COLONIES/...
[2018-02-26 19:54] VITALS: BP 131/78; PULSE 51; O2SAT 93
[2018-02-26] MEDS: DONEPEZIL HCL 10 MG TAB PO SCH (19:55)
[2018-02-26 20:00] VITALS: O2SAT 93
[2018-02-26 23:05] VITALS: BP 124/46; PULSE 53; TEMP 36.7; O2SAT 95
[2018-02-27] MEDS: LEVOTHYROXINE 75 MCG TAB PO SCH (05:47)
[2018-02-27 06:37] LABS: INR 5.4 (0.9-1.1)
[2018-02-27 06:48] LABS: ALBUMIN 2.5 gm/dl (3.4-5.0); CALCIUM 8.8 mg/dl (8.5-10.1); CREATININE 1.99 mg/dl (0.60-1.20); POTASSIUM 3.6 mmol/L (3.5-5.1)
[2018-02-27 06:51] LABS: TOTAL PROTEIN 6.1 gm/dl (6.4-8.2)
[2018-02-27 07:19] VITALS: BP 113/66; PULSE 57; TEMP 36.7; O2SAT 93
--- NOTE | 2018-02-27 08:17 | Progress Note ---
Subjective Date of Service: Feb 27, 2018. (Alida Moise CRNP) Subjective Pt evaluation today including: conversation w/ patient, chart review, lab review Voiding: romero catheter in place (patent, draining clear, yellow urine ) 72 yo female with left hydro. Romero remains in place. Denies pain. Continues to have BMs. Cr stable at 1.99 this morning. (Alida Moise CRNP) Problem List Medical Problems: (1) Acute kidney injury Status: Acute (2) Atrial flutter Status: Acute (3) Back pain Status: Acute (4) Bilateral knee pain Status: Acute (5) CHF (congestive heart failure) Status: Acute (6) CHF exacerbation Status: Acute (7) Closed head injury Status: Acute (8) Concussion Status: Acute (9) Constipation Status: Acute (10) COPD exacerbation Status: Acute (11) Fall Status: Acute (12) Hyperkalemia Status: Acute (13) Hypoxia Status: Acute (14) Lower extremity edema Status: Acute (15) Peripheral edema Status: Acute (16) Pneumonia Status: Acute (17) Pneumonia involving right lung Status: Acute (18) Sciatica Status: Acute (19) Seizure Status: Acute (20) Sepsis Status: Acute (21) Subtherapeutic international normalized ratio (INR) Status: Acute (22) Weakness Status: Acute (Alida Moise CRNP) Review of Systems Constitutional: No fever, No chills Respiratory: No shortness of breath Cardiac: No chest pain Abdomen: No pain, No nausea, No vomiting Female : No hematuria Heme: No abnormal bleeding/bruising (Aldia Moise CRNP) Objective Vital Signs Date Time Temp Pulse Resp B/P (MAP) Pulse Ox O2 Delivery O2 Flow Rate FiO2 02/27/18 07:54 Room Air 02/27/18 07:19 36.7 57 19 113/66 (82) 93 Nasal Cannula 4.0 02/27/18 00:00 Oxymask 4.0 02/26/18 23:05 36.7 53 20 124/46 (72) 95 Oxymask 4.0 02/26/18 20:00 93 Oxymask 4.0 02/26/18 19:54 51 16 131/78 (95) 93 Partial Rebreather 4.0 02/26/18 15:23 36.3 46 22 115/55 (75) 92 Oxymask 4.0 02/26/18 08:40 59 99/47 (64) 02/26/18 08:20 Oxymask 4.0 (Alida Moise CRNP) Physical Exam General Appearance: no apparent distress Eyes: normal inspection ENT: hearing grossly normal Neck: no JVD Respiratory/Chest: no respiratory distress, no accessory muscle use Cardiovascular: no JVD Extremities: normal inspection Neurologic/Psychiatric: alert, normal mood/affect, oriented x 3 Skin: normal color (Alida Moise CRNP) Laboratory Results Last 24 Hours Test 02/27/18 05:53 Prothrombin Time 55.3 SECONDS Prothromb Time International Ratio 5.4 Sodium Level 138 mmol/L Potassium Level 3.6 mmol/L Chloride Level 100 mmol/L Carbon Dioxide Level 33 mmol/L Anion Gap 5.0 mmol/L Blood Urea Nitrogen 71 mg/dl Creatinine 1.99 mg/dl Est Creatinine Clear Calc Drug Dose 20.9 ml/min Estimated GFR () 28.2 Estimated GFR (Non- 24.3 BUN/Creatinine Ratio 35.7 Random Glucose 90 mg/dl Calcium Level 8.8 mg/dl Total Bilirubin 0.4 mg/dl Aspartate Amino Transf (AST/SGOT) 18 U/L Alanine Aminotransferase (ALT/SGPT) 13 U/L Alkaline Phosphatase 56 U/L Total Protein 6.1 gm/dl Albumin 2.5 gm/dl Globulin 3.6 gm/dl Albumin/Globulin Ratio 0.7 (Alida Moise CRNP) Assessment and Plan A/P: Left hydronephrosis AFVSS. Will keep romero in place. UC&S preliminarily negative. Will check a renal u/s today to assess for improvement in hydro. Will continue to follow along with primary service. (Alida Moise CRNP) If making good progress from a bowel standpoint, it seems reasonable to offer a voiding trial in the not too distant future (perhaps today or tomorrow) - I suspect her bladder distention was related to the bowel dysfunction and in turn should resolve with resolution of her colonic issues - we can then follow this up with a repeat US as an outpt in 1-2 weeks (Lenin Sandoval
[2018-02-27] MEDS ORDERED: POTASSIUM CHLORIDE 20 MEQ TABCR PO ONE (08:30)
[2018-02-27] MEDS: FLUTICASONE/SALMETEROL 250/50 (ADVAIR) 14 PUFF/1 INHALER INH SCH (08:58)
[2018-02-27] MEDS ORDERED: METOPROLOL SUCC 25MG EXT REL TAB PO SCH (09:00)
[2018-02-27] MEDS: POLYETHYLENE (MIRALAX) 17 GM PACK PO SCH (09:00)
[2018-02-27 09:01] VITALS: BP 114/61; PULSE 62
[2018-02-27] MEDS: OXYBUTYNIN CHLORIDE 5 MG TABCR PO SCH (09:02)
[2018-02-27] MEDS: HydrALAZINE 10 MG TAB PO SCH (09:02)
[2018-02-27] MEDS: SENNA 8.6 MG TAB PO SCH (09:03)
[2018-02-27] MEDS: GABAPENTIN 600 MG TAB PO SCH (09:03)
[2018-02-27] MEDS: BUMETANIDE 1 MG TAB PO SCH (09:04)
--- NOTE | 2018-02-27 10:49 | DIAGNOSTIC IMAGING REPORT ---
RENAL ULTRASOUND HISTORY: left hydronephrosis COMPARISON: KUB 02/26/2018. Abdomen and pelvis CT 02/25/2018. FINDINGS: Right kidney: Surgically absent. Left kidney: The left-sided hydronephrosis has resolved in the interval. The left kidney measures 9.5 cm in length. There is a 6 mm cyst within the lower pole. Bladder: The bladder is decompressed by Watson catheter. IMPRESSION: 1. Interval resolution of the left-sided hydronephrosis. 2. Prior right nephrectomy. Electronically signed by: Rishi Shook M.D. 02/27/2018 10:47 AM Dictated Date/Time: 02/27/2018 10:45 AM
[2018-02-27] MEDS: GABAPENTIN 300 MG CAP PO SCH (11:28)
[2018-02-27 15:28] VITALS: BP 139/61; PULSE 61; TEMP 36.4; O2SAT 93
[2018-02-27] MEDS ORDERED: WARFARIN SOD 2.5 MG TAB PO SCH (16:00)
--- NOTE | 2018-02-27 16:27 | Progress Note ---
Internal Med Progress Note Date of Service: Feb 27, 2018. Provider Documentation: SUBJECTIVE: Patient denies abdominal pain. She has requested more to eat. Patient has romero removed OBJECTIVE: OBJECTIVE: Exam: General- no acute distress Eyes- EOMI Neck - no JVD Lungs- good air entry, no wheezing Heart- bradycardic Abdomen- soft, nontender, + bowel sounds Extremities- no edema ASSESSMENT & PLAN: Hospital Course This is a 72 year old F patient who presented to the hospital with abdominal pain and poor appetite secondary to constipation and was incidentally found on imaging to have left hydronephrosis Patient was treated with fecal disimpaction, stool softeners, and was able to make bowel movements [facility] service was asked to evaluate the patient and patient was recommended to have a romero to further decompress the abdomen by ensuring bladder being emptied. Subsequent imaging, renal ultrasound showed Interval resolution of the left- sided hydronephrosis. [facility] service advises repeat renal ultrasound in 1 to 2 weeks Patient was also found to have 2.5 cm water attenuation right ovarian lesion ( This may reflect an ovarian cyst however a follow-up nonemergent pelvic ultrasound is recommended to evaluate for complexity as this is abnormal in a postmenopausal patient) Because patient has had less appetite recently, patient's INR has been elevated from prior coumadin use at home (INR 3.9 to 5.3 to 5.4) Discharge instructions Patient is asked to restart coumadin at home in 2 days or with sooner follow up to anticoagulation clinic. [facility] appointment line [phone] to [facility] to have patient do INR labs on 02/28/18 or 03/03/18 Follow up with 03/05/2018 11:00 AM Jodi South DO [facility] Primary care doctor is to coordinate future renal ultrasound and pelvic ultrasound; and also coumadin use. Patient also should stop iron for now until constipation improves and avoid narcotic pain medications. Patient should be regularly taking stool softeners Patient was seen by Dr. Lenin Sandoval of [address] [address] . Patient can be referred by primary medical doctor if future follow up needed Vital Signs: Date Time Temp Pulse Resp B/P (MAP) Pulse Ox O2 Delivery O2 Flow Rate FiO2 4/5/18 15:28 36.4 61 16 139/61 (87) 93 Nasal Cannula 3.0 02/27/18 15:10 Nasal Cannula 02/27/18 09:01 62 114/61 (78) 02/27/18 07:54 Room Air 02/27/18 07:19 36.7 57 19 113/66 (82) 93 Nasal Cannula 4.0 02/27/18 00:00 Oxymask 4.0 02/26/18 23:05 36.7 53 20 124/46 (72) 95 Oxymask 4.0 02/26/18 20:00 93 Oxymask 4.0 02/26/18 19:54 51 16 131/78 (95) 93 Partial Rebreather 4.0 Lab Results: Results Past 24 Hours Test 02/27/18 05:53 Range/Units Prothrombin Time 55.3 9.0-12.0 SECONDS Prothromb Time International Ratio 5.4 0.9-1.1 Sodium Level 138 136-145 mmol/L Potassium Level 3.6 3.5-5.1 mmol/L Chloride Level 100 98-107 mmol/L Carbon Dioxide Level 33 21-32 mmol/L Anion Gap 5.0 3-11 mmol/L Blood Urea Nitrogen 71 7-18 mg/dl Creatinine 1.99 0.60-1.20 mg/dl Est Creatinine Clear Calc Drug Dose 20.9 ml/min Estimated GFR () 28.2 Estimated GFR (Non- 24.3 BUN/Creatinine Ratio 35.7 10-20 Random Glucose 90 70-99 mg/dl Calcium Level 8.8 8.5-10.1 mg/dl Total Bilirubin 0.4 0.2-1 mg/dl Aspartate Amino Transf (AST/SGOT) 18 15-37 U/L Alanine Aminotransferase (ALT/SGPT) 13 12-78 U/L Alkaline Phosphatase 56 45-117 U/L Total Protein 6.1 6.4-8.2 gm/dl Albumin 2.5 3.4-5.0 gm/dl Globulin 3.6 2.5-4.0 gm/dl Albumin/Globulin Ratio 0.7 0.9-2
[2018-02-27] MEDS ORDERED: MRLP17 PO (17:30)
[2018-02-27] MEDS ORDERED: SENN-61 PO ×2 (17:30→17:34)
--- NOTE | 2018-02-27 17:36 | Discharge Instructions ---
Discharge Instructions Date of Service Feb 27, 2018. Admission Reason for Admission: Constipation, Hydronephrosis, Left Discharge Discharge Diagnosis / Problem: abdominal pain, constipation, hydroureteronephrosis, INR elevated Discharge Goals Goal(s): Decrease discomfort, Improve function, Improve disease control Activity Recommendations Activity Limitations: per Instructions/Follow-up section Shower/Bathe: no limitations . Instructions / Follow-Up Instructions / Follow-Up Hospital Course This is a 72 year old F patient who presented to the hospital with abdominal pain and poor appetite secondary to constipation and was incidentally found on imaging to have left hydroureteronephrosis Patient was treated with fecal disimpaction, stool softeners, and was able to make bowel movements [facility] Urology service was asked to evaluate the patient and patient was recommended to have a romero to further decompress the abdomen by ensuring bladder being emptied. Subsequent imaging, renal ultrasound showed Interval resolution of the left- sided hydronephrosis. [facility] Urology service advises repeat renal ultrasound in 1 to 2 weeks Patient was also found to have 2.5 cm water attenuation right ovarian lesion ( This may reflect an ovarian cyst however a follow-up nonemergent pelvic ultrasound is recommended to evaluate for complexity as this is abnormal in a postmenopausal patient) Because patient has had less appetite recently, patient's INR has been elevated from prior coumadin use at home (INR 3.9 to 5.3 to 5.4) Discharge instructions Patient is asked to restart coumadin at home in 2 days or with sooner follow up to anticoagulation clinic. [facility] clinic appointment line [phone] to [facility] to have patient do INR labs on 02/28/18 or 03/03/18 Follow up with 03/05/2018 11:00 AM Jodi South DO [facility] Primary care doctor is to coordinate future renal ultrasound and pelvic ultrasound; and also coumadin use. Patient also should stop iron for now until constipation improves and avoid narcotic pain medications. Patient should be regularly taking stool softeners Patient was seen by Dr. Lenin Sandoval of [address] [address] . Patient can be referred by primary medical doctor if future follow up needed Current Hospital Diet Patient's current hospital diet: Regular Diet Discharge Diet Recommended Diet: Regular Diet Pending Studies Studies pending at discharge: no Laboratory Results 02/26/18 07:20 Red Blood Count 3.06, Mean Corpuscular Volume 99.0, Mean Corpuscular Hemoglobin 33.3, Mean Corpuscular Hemoglobin Concent 33.7, Mean Platelet Volume 12.6, Neutrophils (%) (Auto) 70.1, Lymphocytes (%) (Auto) 18.1, Monocytes (%) (Auto) 9.0, Eosinophils (%) (Auto) 2.3, Basophils (%) (Auto) 0.3, Neutrophils # (Auto) 4.63, Lymphocytes # (Auto) 1.19, Monocytes # (Auto) 0.59, Eosinophils # (Auto) 0.15, Basophils # (Auto) 0.02 02/27/18 05:53 Test 02/25/18 11:30 02/25/18 18:15 02/26/18 07:20 02/27/18 05:53 Direct Bilirubin 0.3 mg/dl (0-0.2) Lipase 108 U/L (73-393) Influenza Type A Antigen Neg for Influ A (NEG) Influenza Type B Antigen Neg for Influ B (NEG) Urine Color YELLOW Urine Appearance CLEAR (CLEAR) Urine pH 5.0 (4.5-7.5) Urine Specific [place] 1.012 (1.000-1.030) Urine Protein NEG (NEG) Urine Glucose (UA) NEG (NEG) Urine Ketones NEG (NEG) Urine Occult Blood NEG (NEG) Urine Nitrite NEG (NEG) Urine Bilirubin NEG (NEG) Urine Urobilinogen NEG (NEG) Urine Leukocyte Esterase NEG (NEG) Thyroid Stimulating Hormone (TSH) 1.040 uIu/ml (0.300-4.500) Thyroxine (T4) 7.6 mcg/dl (4.5-10.9) White Blood Count 6.59 K/uL (4.8-10.8) Red Blood Count 3.06 M/uL (4.2-5.4) Hemoglobin 10.2 g/dL (12.0-16.0) Hematocrit 30.3 % (37-47) Mean Corpuscular Volume 99.0 fL (80-100) Mean Corpuscular Hemoglobin 33.3 pg (25-34) Mean Corpuscular Hemoglobin Concent 33.7 g/dl (32-36) Platelet Count 120 K/uL (130-400) Mean Platelet Volume 12.6 fL (7.4-10.4) Neutrophils (%) (Auto) 70.1 % Lymphocytes (%) (Auto) 18.1 % Monocytes (%) (Auto) 9.0 % Eosinophils (%) (Auto) 2.3 % Basophils (%) (Auto) 0.3 % Neutrophils # (Auto) 4.63 K/uL (1.4-6.5) Lymphocytes # (Auto) 1.19 K/uL (1.2-3.4) Monocytes # (Auto) 0.59 K/uL (0.11-0.59) Eosinophils # (Auto) 0.15 K/uL (0-0.5) Basophils # (Auto) 0.02 K/uL (0-0.2) RDW Standard Deviation 53.6 fL (36.4-46.3) RDW Coefficient of Variation 14.9 % (11.5-14.5) Immature Granulocyte % (Auto) 0.2 % Immature Granulocyte # (Auto) 0.01 K/uL (0.00-0.02) Platelet Estimate DECREASED Prothrombin Time 55.3 SECONDS (9.0-12.0) Prothromb Time International Ratio 5.4 (0.9-1.1) Anion Gap 5.0 mmol/L (3-11) Est Creatinine Clear Calc Drug Dose 20.9 ml/min Estimated GFR () 28.2 Estimated GFR (Non- 24.3 BUN/Creatinine Ratio 35.7 (10-20) Calcium Level 8.8 mg/dl (8.5-10.1) Total Bilirubin 0.4 mg/dl (0.2-1) Aspartate Amino Transf (AST/SGOT) 18 U/L (15-37) Alanine Aminotransferase (ALT/SGPT) 13 U/L (12-78) Alkaline Phosphatase 56 U/L (45-117) Total Protein 6.1 gm/dl (6.4-8.2) Albumin 2.5 gm/dl (3.4-5.0) Globulin 3.6 gm/dl (2.5-4.0) Albumin/Globulin Ratio 0.7 (0.9-2) Date/Time Source Procedure Growth Status 02/25/18 18:15 Nasal MRSA DNA Surveillance Screen - Final Specimen Negative for MRSA by DNA Probe Complete 02/25/18 18:15 Urine,Catheterized Urine Culture - Final NO GROWTH - LESS THAN 1,000 COLONIES/ML Complete Medical Emergencies . Who to Call and When: Medical Emergencies: If at any time you feel your situation is an emergency, please call 911 immediately. . Non-Emergent Contact Non-Emergency issues call your: Primary Care Provider . . "Provider Documentation" section prepared by Atul Olson. .
--- NOTE | 2018-02-27 17:37 | Discharge Summary ---
Discharge Summary Date of Service Feb 27, 2018. Discharge Summary Admission Date: Feb 26, 2018 at 11:06 Discharge Date: Feb 27, 2018 Principal Diagnosis: abdominal pain, constipation, left hydroureteronephrosis, INR elevated (supra therapeutic INR) from coumadin use at home, Secondary Diagnoses/Problems: hypothyroidism on levothyroxine, right ovarian lesion (possible ovarian cyst) Consultations: Urology Medication Reconciliation New Medications: Senna (Senokot) 8.6 Mg Tab 17.2 MG PO QAM for 30 Days, #60 TAB Continued Medications: Albuterol Sulf (Proventil 0.083% 2.5MG/3ML) 2.5 Mg/3 Ml Nebu 2.5 MG INH Q4H PRN for SOB/Wheezing, EA Albuterol Sulfate (Proair Respiclick) 108 Mcg/Act Aer 2 PUFFS INH QID PRN for Shortness of Breath Brinzolamide Oph (Azopt Oph) 1 % Ciara 1 DROP OPB TID Bumetanide (Bumex) 1 Mg Tab 1 MG PO DAILY for 30 Days, #30 TAB Calcitriol (Calcitriol) 0.25 Mcg Cap 0.25 MCG PO DAILY Donepezil Hydrochloride (Aricept) 10 Mg Tab 10 MG PO HS Fluticasone Prop/Salmeterol (Advair Diskus 250/50 60 Dose) 1 Ea Aerp 1 PUFF INH BID, INHALER Fluticasone Propionate (Nasal) (Flonase Allergy Relief) 50 Mcg/Act Spr 1 SPRAY PAULIE BID Gabapentin (Neurontin) 300 Mg Cap 300 MG PO DAILY 1 HOUR BEFORE LUNCH Gabapentin (Neurontin) 300 Mg Cap 600 MG PO AMHS, CAP Home O2 Therapy (Oxygen) Gas 3 LITERS NA CONTINOUS Hydralazine HCl (Hydralazine HCl) 10 Mg Tab 10 MG PO BID, #60 Levothyroxine Sodium (Levothyroxine Sodium) 75 Mcg Tab 75 MCG PO DAILY, #30 Metoprolol Succinate (Metoprolol Succinate ER) 25 Mg Tabcr 25 MG PO DAILY, #15 Nitroglycerin (Nitrostat) 0.4 Mg Tab 0.4 MG SL PRN UD, #25 Oxybutynin Chloride (Oxybutynin Chloride Er) 5 Mg Tab 5 MG PO DAILY, #30 Pantoprazole (Pantoprazole Sodium) 40 Mg Tab 40 MG PO DAILY, #30 Pravastatin Sodium (Pravastatin Sodium) 80 Mg Tab 80 MG PO QPM Umeclidinium [place] (Incruse Ellipta) 62.5 Mcg/Inh Inh 1 INHA PO DAILY Discontinued Medications: Ferrous Sulfate (Iron) 325 Mg Tab 1 TAB PO BID Loratadine (Claritin) 10 Mg Tab 10 MG PO DAILY Warfarin Sod (Jantoven) 5 Mg Tab 2.5 MG PO 4XWK TUES,THURS,SAT,SUN Warfarin Sodium (Warfarin Sodium) 5 Mg Tab 5 MG PO 3XWK MON,WED,FRI Admission Information HPI (per Admitting provider): Patient with as least 4 days of constipation and only small amounts of diarrhea with bowel movements with left sided abdominal pain. CT abomen imaging showing stool burden and incidentally showing evidence for left hydronephrosis. Patient denies urinary tract problems and reports that her urination has not been different in recent past. Denies pain with urination. denies back pain. No costovertebral angle tenderness. ED reports fecal disimpaction and consult [facility] urology. Patient placed under observation on medical service. Physical Exam (per Admitting): General Appearance: WD/WN, no apparent distress Head: normocephalic, atraumatic Eyes: normal inspection, EOMI, sclerae normal ENT: normal ENT inspection, hearing grossly normal, pharynx normal Neck: supple, no JVD, trachea midline Respiratory/Chest: chest non-tender, lungs clear, normal breath sounds, no respiratory distress, no accessory muscle use Cardiovascular: no edema, no JVD, normal peripheral pulses, + bradycardia Abdomen/GI: normal bowel sounds, soft, no organomegaly, no pulsatile mass, + tenderness (left lower quadrant tenderness) Back: normal inspection, no CVA tenderness, no muscle spasm, normal range of motion Extremities/Musculoskelatal: normal inspection, no pedal edema, normal range of motion, non-tender Neurologic/Psych: no motor/sensory deficits, alert, normal mood/affect Skin: normal color, warm/dry, no rash Hospital Course Hospital Course This is a 72 year old F patient who presented to the hospital with abdominal pain and poor appetite secondary to constipation and was incidentally found on imaging to have left hydroureteronephrosis Patient was treated with fecal disimpaction, stool softeners, and was able to make bowel movements [facility] Urology service was asked to evaluate the patient and patient was recommended to have a romero to further decompress the abdomen by ensuring bladder being emptied. Subsequent imaging, renal ultrasound showed Interval resolution of the left- sided hydronephrosis. [facility] Urology service advises repeat renal ultrasound in 1 to 2 weeks Patient was also found to have 2.5 cm water attenuation right ovarian lesion ( This may reflect an ovarian cyst however a follow-up nonemergent pelvic ultrasound is recommended to evaluate for complexity as this is abnormal in a postmenopausal patient) Because patient has had less appetite recently, patient's INR has been elevated from prior coumadin use at home (INR 3.9 to 5.3 to 5.4) Discharge instructions Patient is asked to restart coumadin at home in 2 days or with sooner follow up to anticoagulation clinic. [facility] clinic appointment line [phone] to [facility] to have patient do INR labs on 02/28/18 or 03/03/18 Follow up with 03/05/2018 11:00 AM Jodi South, [facility] Primary care doctor is to coordinate future renal ultrasound and pelvic ultrasound; and also coumadin use. Patient also should stop iron for now until constipation improves and avoid narcotic pain medications. Patient should be regularly taking stool softeners Patient was seen by Dr. Lenin Sandoval of [address] [address] . Patient can be referred by primary medical doctor if future follow up needed Total time spent on discharge = 40 minutes This includes examination of the patient, discharge planning, medication reconciliation, and communication with other providers. Discharge Instructions see above
[2018-02-27 18:17] VITALS: BP 139/61; PULSE 61; TEMP 36.4; O2SAT 93
[2018-03-02] MEDS ORDERED: GABA-113 PO (08:30)
[2018-03-02] MEDS ORDERED: UMEC1INH PO (12:20)
[2018-03-02] MEDS ORDERED: BRIN1SUS OPB (12:23)
[2018-03-02] MEDS ORDERED: ALBU18002 INH (12:57)
[2018-03-02] MEDS ORDERED: ALBINS/ NEB (12:57)
[2018-03-02] MEDS ORDERED: PRAV80TA2 PO (13:37)
[2018-03-02] MEDS ORDERED: OXYB5TAB PO (13:37)
[2018-03-02] MEDS ORDERED: CALC1CAP36 PO (13:38)
[2018-03-02] MEDS ORDERED: ADVIN25/60 INH (13:41)
[2018-03-02] MEDS ORDERED: HYDR-2977 PO (14:15)
[2018-03-02] MEDS ORDERED: LEVO75TA5 PO (14:15)
[2018-03-02] MEDS ORDERED: PANT40TA2 PO (15:32)
[2018-03-02] MEDS ORDERED: OXGN (16:08)
[2018-03-02] MEDS ORDERED: FLUT0.15 NAE (19:21)
[2018-03-02] MEDS ORDERED: NTRGSL/4 SL (19:21)
== END 2018-02-27 19:25 | disposition home health service (06) | DRG 392 ==
LOC: EDBD 11:28 → C.EDC 11:29 → C.MSN 16:18 → ENRESERV 17:19 → OBSVTOIN 02-26 11:06
PROVIDERS: ADMIT Hospitalist; ATTEND Hospitalist
DX: K59.00 Constipation, unspecified (principal); N13.30 Unspecified hydronephrosis; N17.9 Acute kidney failure, unspecified; I48.92 Unspecified atrial flutter; I50.32 Chronic diastolic (congestive) heart failure; N18.4 Chronic kidney disease, stage 4 (severe); K21.9 Gastro-esophageal reflux disease without esophagitis; I48.91 Unspecified atrial fibrillation; I25.10 Atherosclerotic heart disease of native coronary artery without angina pectoris; I12.9 Hypertensive chronic kidney disease with stage 1 through stage 4 chronic kidney disease, or unspecified chronic kidney disease; Z95.0 Presence of cardiac pacemaker; Z87.891 Personal history of nicotine dependence; Z79.01 Long term (current) use of anticoagulants; Z88.2 Allergy status to sulfonamides; Z88.8 Allergy status to other drugs, medicaments and biological substances; Z88.1 Allergy status to other antibiotic agents; T45.515A Adverse effect of anticoagulants, initial encounter; J44.9 Chronic obstructive pulmonary disease, unspecified; I50.810 Right heart failure, unspecified; R79.1 Abnormal coagulation profile; N83.201 Unspecified ovarian cyst, right side; Y92.019 Unspecified place in single-family (private) house as the place of occurrence of the external cause; Z90.5 Acquired absence of kidney

== ENCOUNTER 2018-03-02 21:14 | Emergency (ER) | payer OTHER ==
[~2018-03-02] VITALS: Ht 149.9 cm; Wt 65.5 kg
[~2018-03-02 21:14] MED LIST changes: +ADVIN25/60 INH; +ALBINS/ NEB; +ALBU18002 INH; +BRIN1SUS OPB; +CALC1CAP36 PO; -CLR10 PO; -FERR1TAB23 PO; +FLUT0.15 NAE; +HYDR-2977 PO; +LEVO75TA5 PO; +NTRGSL/4 SL; +OXGN; +OXYB5TAB PO; +PANT40TA2 PO; +PRAV80TA2 PO; +SENN-61 PO; +UMEC1INH PO; -WARF-246 PO
[2018-03-02 21:27] VITALS: TEMP 37; Ht 149.9 cm; Wt 65.5 kg
[2018-03-02] MEDS ORDERED: ONDANSETRON INJ 2 MG/ML 2 ML VIAL IV STA (22:17)
[2018-03-02] MEDS ORDERED: SODIUM CHLORIDE 0.9% 1000ML 250 ML IV STA (22:17)
[2018-03-02] MEDS ORDERED: BMX1 PO (22:24)
[2018-03-02] MEDS ORDERED: GABA-1219 PO (22:24)
[2018-03-02] MEDS ORDERED: WARF-246 PO (22:24)
[2018-03-02] MEDS ORDERED: CLC/300 PO (22:24)
[2018-03-02] MEDS ORDERED: TPRSR/25 PO (22:24)
[2018-03-02] MEDS ORDERED: ARC10 PO (22:25)
[2018-03-02] MEDS ORDERED: SENN-63 PO (22:28)
[2018-03-02 22:56] LABS: BASO % 0.3 %; BASO ABS # 0.01 K/uL (0-0.2); EOS % 2.3 %; EOS ABS # 0.08 K/uL (0-0.5); HEMATOCRIT 34.1 % (37-47); LYMPH % 13.8 %; LYMPH ABS # 0.48 K/uL (1.2-3.4); MEAN CELL VOLUME 101.2 fL (80-100); MEAN CORPUSCULAR HEMOGLOBIN 32.6 pg (25-34); MEAN CORPUSCULAR HGB CONC 32.3 g/dl (32-36); MEAN PLATELET VOLUME 12.2 fL (7.4-10.4); MONO % 10.3 %; MONO ABS # 0.36 K/uL (0.11-0.59); NEUT % 73.3 %; NEUT ABS # 2.55 K/uL (1.4-6.5); PLATELET COUNT 144 K/uL (130-400); RED CELL DISTRIBUTION WIDTH CV 14.5 % (11.5-14.5); RED CELL DISTRIBUTION WIDTH SD 53.8 fL (36.4-46.3); WHITE BLOOD COUNT 3.48 K/uL (4.8-10.8)
[2018-03-02 23:06] LABS: INR 1.8 (0.9-1.1); PTT PATIENT 35.1 SECONDS (21.0-31.0)
[2018-03-02 23:16] LABS: ALBUMIN 2.7 gm/dl (3.4-5.0); CALCIUM 8.7 mg/dl (8.5-10.1); CREATININE 1.55 mg/dl (0.60-1.20); POTASSIUM 4.1 mmol/L (3.5-5.1)
[2018-03-02 23:21] LABS: TOTAL PROTEIN 6.6 gm/dl (6.4-8.2)
[2018-03-03] MEDS ORDERED: ONDANSETRON HOME PACK 4MG OD TAB PO ONE
[2018-03-03] MEDS ORDERED: ONDA4TAB10 SL (00:35)
[2018-03-03 00:49] VITALS: BP 174/77; PULSE 53; O2SAT 96
--- NOTE | 2018-03-03 01:40 | EMERGENCY ROOM VISIT NOTE ---
History Report prepared by Kaitlynn: Berto Ovalle Under the Supervision of: Dr. Bright Maurer M.D. First contact with patient: 22:07 Chief Complaint: ILLNESS Stated Complaint: NAUSEA, DIARRHEA History of Present Illness The patient is a 72 year old female who presents to the Emergency Room with complaints of intermittent vomiting and diarrhea that began two days ago. The patient was just admitted to the hospital on the 4th of this month, and discharged on the . She was admitted for elevated INR, constipation, and a blocked kidney. She is also currently experiencing pain around her belly button. She denies any blood in the stool or emesis. She also denies any chest pain. Source of History: patient, family Onset: 2 days [employer] Position: abdomen Quality: other (Vomiting/diarrea) Timing: intermittent Associated Symptoms: + abdominal pain, No chest pain Review of Systems See HPI for pertinent positives & negatives. A total of 10 systems reviewed and were otherwise negative. Past Medical & Surgical Medical Problems: (1) Afib (2) Anemia (3) ASD (atrial septal defect) (4) Bradycardia (5) CKD (chronic kidney disease), stage IV (6) COPD (chronic obstructive pulmonary disease) (7) Cough (8) GERD (gastroesophageal reflux disease) (9) H/O unilateral nephrectomy (10) Heart disease (11) HLD (hyperlipidemia) (12) HTN (hypertension) (13) Hydronephrosis (14) Hydronephrosis, left (15) Hypertension (16) Hypothyroid (17) Leg swelling (18) Mild left ventricular systolic dysfunction (19) MRSA bacteremia (20) Pacemaker (21) Right-sided congestive heart failure (22) Solitary kidney (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 Nurse's notes were reviewed and I agree with. Family History Heart disease Hypertension Lung disease Social History Smoking Status: Former Smoker Alcohol Use: none Drug Use: none Marital Status: single Housing Status: other Occupation Status: disabled Current/Historical Medications Scheduled Brinzolamide Oph (Azopt Oph), 1 DROP OPB TID Bumetanide (Bumetanide), 1 MG PO DAILY Calcitriol (Calcitriol), 0.25 MCG PO DAILY Clindamycin HCl (Clindamycin HCl), 300 MG PO QID Donepezil HCl (Donepezil HCl), 10 MG PO HS Fluticasone Prop/Salmeterol (Advair Diskus 250/50 60 Dose), 1 PUFF INH BID Fluticasone Propionate (Nasal) (Flonase Allergy Relief), 1 SPRAY PAULIE BID Gabapentin (Neurontin), 300 MG PO BEFORE LUNCH Gabapentin (Gabapentin), 600 MG PO AMHS Home O2 Therapy (Oxygen), 3 LITERS NA CONTINOUS Hydralazine HCl (Hydralazine HCl), 10 MG PO BID Levothyroxine Sodium (Levothyroxine Sodium), 75 MCG PO DAILY Metoprolol Succinate (Metoprolol Succinate ER), 25 MG PO DAILY Ondasetron Odt (Zofran Odt), 4 MG SL Q6H Oxybutynin Chloride (Oxybutynin Chloride Er), 5 MG PO DAILY Pantoprazole (Pantoprazole Sodium), 40 MG PO DAILY Pravastatin Sodium (Pravastatin Sodium), 80 MG PO QPM Sennosides (Senokot), 17.2 MG PO QAM Umeclidinium [place] (Incruse Ellipta), 1 INHA PO DAILY Warfarin Sodium (Warfarin Sodium), 2.5 MG PO DAILY Scheduled PRN Albuterol Sulf (Proventil 0.083% 2.5MG/3ML), 2.5 MG NEB Q4H PRN for SOB/Wheezing Albuterol Sulfate (Proair Respiclick), 2 PUFFS INH QID PRN for Shortness of Breath Nitroglycerin (Nitrostat), 0.4 MG SL UD PRN for Chest Pain Allergies Coded Allergies: Levofloxacin (Verified Allergy, Intermediate, HIVES, 02/25/18) Quinolones (Verified Allergy, Intermediate, HIVES, 02/25/18) Ranitidine (Verified Allergy, Intermediate, HIVES, 02/25/18) Sulfamethoxazole (Verified Allergy, Intermediate, HIVES, 02/25/18) Trimethoprim (Verified Allergy, Intermediate, HIVES, 02/25/18) Clarithromycin (Verified Allergy, Mild, HIVES, CAN TAKE ZITHROMAX W/O PROB , 02/25/18) Amoxicillin (Verified Allergy, Unknown, HIVES, 02/25/18) Omeprazole (Verified Allergy, Unknown, HAS HAD PROTONIX, 02/25/18) Physical Exam Vital Signs Date Time Temp Pulse Resp B/P (MAP) Pulse Ox O2 Delivery O2 Flow Rate FiO2 03/03/18 00:49 53 18 174/77 96 03/02/18 21:27 37.0 54 18 114/68 95 Nasal Cannula 3.0 Physical Exam General: Chronically-ill appearing older female in no acute distress. HEENT: Normal cephalic atraumatic. Pupils are equal round and reactive to light. Extraocular movements are intact. Oropharynx is pink with moist mucous membranes. No swelling of the mouth lips or tongue. Neck: Supple with a midline trachea. No meningeal signs or stiffness, no JVD or bruits. No Stridor. Chest: Clear to auscultation bilaterally. No wheezes or rhonchi. No increased work of breathing. Heart: regular rate and rhythm. Abdomen: Soft nontender, nondistended without rebound guarding or rigidity. Extremities: No cyanosis clubbing or edema. No calf tenderness or assymetry Spine/Back. Non tender to palpation. No CVA tenderness Skin: Good turgor without rashes. Neurologic exam: Cranial nerves two through 12 are intact. Motor and sensation are intact and symmetrical throughout. Medical Decision & Procedures ER Provider Diagnostic Interpretation: Radiology results as stated below per my interpretation: CHEST X-RAY: Chest X-ray shows cardiomegaly, increased hilar markings, nodule vs. mass in right midlung. Mild CHF present, no significant change from 08/25/2017 Laboratory Results 03/02/18 22:35 Red Blood Count 3.37, Mean Corpuscular Volume 101.2, Mean Corpuscular Hemoglobin 32.6, Mean Corpuscular Hemoglobin Concent 32.3, Mean Platelet Volume 12.2, Neutrophils (%) (Auto) 73.3, Lymphocytes (%) (Auto) 13.8, Monocytes (%) ( Auto) 10.3, Eosinophils (%) (Auto) 2.3, Basophils (%) (Auto) 0.3, Neutrophils # (Auto) 2.55, Lymphocytes # (Auto) 0.48, Monocytes # (Auto) 0.36, Eosinophils # ( Auto) 0.08, Basophils # (Auto) 0.01 03/02/18 22:35 Test 03/02/18 22:35 03/02/18 22:44 White Blood Count 3.48 K/uL (4.8-10.8) Red Blood Count 3.37 M/uL (4.2-5.4) Hemoglobin 11.0 g/dL (12.0-16.0) Hematocrit 34.1 % (37-47) Mean Corpuscular Volume 101.2 fL (80-100) Mean Corpuscular Hemoglobin 32.6 pg (25-34) Mean Corpuscular Hemoglobin Concent 32.3 g/dl (32-36) Platelet Count 144 K/uL (130-400) Mean Platelet Volume 12.2 fL (7.4-10.4) Neutrophils (%) (Auto) 73.3 % Lymphocytes (%) (Auto) 13.8 % Monocytes (%) (Auto) 10.3 % Eosinophils (%) (Auto) 2.3 % Basophils (%) (Auto) 0.3 % Neutrophils # (Auto) 2.55 K/uL (1.4-6.5) Lymphocytes # (Auto) 0.48 K/uL (1.2-3.4) Monocytes # (Auto) 0.36 K/uL (0.11-0.59) Eosinophils # (Auto) 0.08 K/uL (0-0.5) Basophils # (Auto) 0.01 K/uL (0-0.2) RDW Standard Deviation 53.8 fL (36.4-46.3) RDW Coefficient of Variation 14.5 % (11.5-14.5) Immature Granulocyte % (Auto) 0.0 % Immature Granulocyte # (Auto) 0.00 K/uL (0.00-0.02) Prothrombin Time 18.2 SECONDS (9.0-12.0) Prothromb Time International Ratio 1.8 (0.9-1.1) Activated Partial Thromboplast Time 35.1 SECONDS (21.0-31.0) Partial Thromboplastin Ratio 1.4 Anion Gap 5.0 mmol/L (3-11) Est Creatinine Clear Calc Drug Dose 26.6 ml/min Estimated GFR () 38.1 Estimated GFR (Non- 32.9 BUN/Creatinine Ratio 31.8 (10-20) Calcium Level 8.7 mg/dl (8.5-10.1) Total Bilirubin 0.5 mg/dl (0.2-1) Direct Bilirubin 0.2 mg/dl (0-0.2) Aspartate Amino Transf (AST/SGOT) 29 U/L (15-37) Alanine Aminotransferase (ALT/SGPT) 17 U/L (12-78) Alkaline Phosphatase 61 U/L (45-117) Pro-B-Type Natriuretic Peptide 20473 pg/ml (0-900) Total Protein 6.6 gm/dl (6.4-8.2) Albumin 2.7 gm/dl (3.4-5.0) Lipase 280 U/L (73-393) Bedside Troponin I 0.030 ng/ml (0-0.045) Laboratory studies as stated above per my review. Medications Administered Medications (Trade) Dose Ordered Sig/Mehdi Route Start Time Stop Time Status Last Admin Dose Admin Sodium Chloride 250 ml @ 999 mls/hr Q16M STAT IV 03/02/18 22:17 03/02/18 22:32 DC 03/02/18 22:53 999 MLS/HR Ondansetron HCl (Zofran Inj) 4 mg NOW STAT IV 03/02/18 22:17 03/02/18 22:19 DC 03/02/18 22:53 4 MG Ondansetron HCl (ZOFRAN ODT 4MG Home Pack) 1 homepack UD ONCE PO 03/03/18 00:00 03/03/18 00:01 DC 03/03/18 00:48 1 HOMEPACK ECG Per My Interpretation Indication: vomiting Rate (beats per minute): 47 Rhythm: sinus bradycardia Findings: LAFB, RBBB, T-wave inversion (Inferior and laterally ) Comparison ECG Date: 08/13/2017 Change: no significant change ED Course 2211: Past medical records reviewed. The patient was evaluated in room A4B, and a complete history and physical examination were performed. 2217: Ordered Zofran 4 mg IV, Sodium Chloride 250 mL @ 999 mL/hr IV. 2318: I checked on the patient at this time. She is resting comfortably. 0000: Ordered 1 homepack of Zofran. 0046: Upon reevaluation, the patient is resting in bed. I discussed the results and treatment plan with her. She verbalized agreement of the treatment plan. The patient was discharged home. Medical Decision Differential diagnosis includes; dehydration, CHF, diarrhea, electrolyte or metabolic abnormality, cardiac disease, infection. This patient comes in as described above. She was admitted and was in the hospital for a day after having nausea and constipation she did receive treatment for this and now has diarrhea. She looks well on exam. She has had some nausea those been asking to drink the whole time. Abdomen is benign. a CAT scan of her abdomen was done a couple days ago and was unremarkable with exception of hydronephrosis which resolved on subsequent ultrasound. She has no fever or white count. she has no chest pain. She has some chronic changes on her chest and there is some increased markings in the right border and she could have a new nodule/mass. I think it was likely there before and I told to follow-up with her regular doctor for recheck. EKG has some T-wave inversions compared to old although it has been a while she has had an EKG and she has no chest pain. She has no acute electrolyte or metabolic abnormalities. She has nothing to suggest C. difficile clinically and I think this is resultant from the medications that they used to treat her constipation she feels good and would like to go home. she is drinking fluids. she was given a small fluid bolus hereof just 250 cc IV due to her CHF history she tolerated this. She does have home nursing coming in Daily including tomorrow and they can recheck. Also encouraged her to follow a regular doctor next 1 to 2 days for recheck. She was encouraged to return the ER if: Increasing pain, worsening of symptoms , fever or chills, any new problems or concerns. She is happy to plan and discharged to home Medication Reconcilliation Current Medication List: was personally reviewed by me Blood Pressure Screening Patient's blood pressure: Normal blood pressure Impression Primary Impression: Nausea, vomiting and diarrhea Scribe Attestation The scribe's documentation has been prepared under my direction and personally reviewed by me in its entirety. I confirm that the note above accurately reflects all work, treatment, procedures, and medical decision making performed by me. Departure Information Dispostion Home / Self-Care Prescriptions Ondasetron Odt (ZOFRAN ODT) 4 Mg Tab 4 MG SL Q6H for Nausea, #6 TAB Prov: Bright Maurer M.D. 03/03/18 Referrals Jodi South D.O. (PCP) Forms HOME CARE DOCUMENTATION FORM, IMPORTANT VISIT INFORMATION, WORK / SCHOOL INSTRUCTIONS Patient Instructions [facility] Additional Instructions Rest May use Zofran if needed for nausea May use Imodium if needed for diarrhea. Do not exceed the [id number] dosage Return if: worsening of symptoms, fever or chills, any new problems or concerns Follow-up with your doctor in 1-2 days for recheck Careful when getting up and down and use the walker
--- NOTE | 2018-03-03 07:24 | DIAGNOSTIC IMAGING REPORT ---
CHEST ONE VIEW PORTABLE HISTORY: Atypical CHEST PAIN COMPARISON: None. FINDINGS: The heart remains enlarged. No pleural effusions. No pneumothorax. 1.3 cm nodular density within the right upper lobe. This is new from the prior study. The density favors a calcified granuloma. Pulmonary artery enlargement persists. This consistent with pulmonary hypertension. No evidence for pulmonary edema and this time. No new focal lung consolidations to suggest pneumonia. Interstitial thickening at the lung bases persist. Improved aeration within the right lung base. IMPRESSION: 1. Stable cardiomegaly. No evidence for pulmonary edema. 2. Improved aeration within the right lung base and chronic bibasilar interstitial thickening. No new focal lung consolidations. 3. A new 1.3 cm dense nodule within the right upper lobe. This may be due to the overlapping ribs or a calcified granuloma. Electronically signed by: Rishi Shook M.D. 03/03/2018 7:23 AM Dictated Date/Time: 03/03/2018 7:20 AM
== END 2018-03-03 00:49 | disposition home or self-care (01) ==
LOC: EDBD 21:14 → C.EDA 21:15
DX: R11.2 Nausea with vomiting, unspecified (principal); R19.7 Diarrhea, unspecified; I48.91 Unspecified atrial fibrillation; I11.0 Hypertensive heart disease with heart failure; N18.4 Chronic kidney disease, stage 4 (severe); J44.9 Chronic obstructive pulmonary disease, unspecified; I50.9 Heart failure, unspecified; E03.9 Hypothyroidism, unspecified; K21.9 Gastro-esophageal reflux disease without esophagitis; Z95.0 Presence of cardiac pacemaker; Z99.81 Dependence on supplemental oxygen; Z87.891 Personal history of nicotine dependence; Z79.01 Long term (current) use of anticoagulants; Z79.899 Other long term (current) drug therapy; E78.5 Hyperlipidemia, unspecified; Z88.1 Allergy status to other antibiotic agents; Z88.2 Allergy status to sulfonamides; Z88.8 Allergy status to other drugs, medicaments and biological substances

== ENCOUNTER → 2018-04-01 | Outpatient (CLI) | payer OTHER ==
[~2018-04-01] MED LIST changes: +ARC10 PO; +BMX1 PO; -BUME1TAB PO; +CLC/300 PO; -DONE10TA12 PO; +GABA-1219 PO; +ONDA4TAB10 SL; -SENN-61 PO; +SENN-63 PO; +WARF-246 PO
== END | disposition home or self-care (01) ==
LOC: C.PATHSPEC 17:23
PROVIDERS: ATTEND Urology
DX: Z90.5 Acquired absence of kidney (principal)

== ENCOUNTER 2018-05-30 19:11 | Inpatient (IN) | payer OTHER ==
[~2018-05-30] VITALS: Ht 142.2 cm; Wt 63.3 kg
[~2018-05-30 19:11] MED LIST changes: -ARC10 PO; -FLUT0.15 NAE; -GABA-1219 PO; -SENN-63 PO; -TPRSR/25 PO
[2018-05-30] MEDS ORDERED: FLUT0.15 NAE (19:21)
[2018-05-30] MEDS ORDERED: METHYLPREDNISOLONE 125 MG VIAL IV STA (19:26)
[2018-05-30] MEDS ORDERED: CEFEPIME IV 1,000 MG in DEXTROSE 5% 100ML 100 ML IV STA (19:26)
[2018-05-30] MEDS ORDERED: AZITHROMYCIN 250 MG TAB PO STA (19:26)
--- NOTE | 2018-05-30 19:29 | EMERGENCY ROOM VISIT NOTE ---
History Report prepared by Kaitlynn: Kalyan Carter Under the Supervision of: Dr. Modesto Ross M.D. First contact with patient: 19:12 Chief Complaint: ALTERED MENTAL STATUS Stated Complaint: AMS, POSSIBLE SEIZURE History of Present Illness The patient is a 72 year old white female with a past medical history of a-fib, CHF, CKD, COPD, HTN, hypothyroidism, NVR on Coumadin, seizures, dementia who presents to the ED with a cc of resolved seizure like activity that occurred this afternoon. Positive resolved SOB and chest pain, fall, cough, 3L oxygen requirement. Negative history of seizures, taking medication for seizures. Pt states she fell today after eating her lunch. The nursing staff reports she come from [facility]. They note the patient was checked up on by nursing staff at [facility] and had tremors and seizure like activity. Pt's BSG per EMS was 115. Per the patient's family, she has a history of seizures. Source of History: patient, nursing staff Onset: this afternoon Quality: other (sz like activity) Timing: resolved Associated Symptoms: + cough, + chest pain (resolved), + SOB (resolved) Review of Systems See HPI for pertinent positives and negatives. A total of ten systems were reviewed and were otherwise negative. Past Medical & Surgical Medical Problems: (1) Acute respiratory failure (2) Afib (3) Anemia (4) ASD (atrial septal defect) (5) Bradycardia (6) CKD (chronic kidney disease), stage IV (7) COPD (chronic obstructive pulmonary disease) (8) Cough (9) GERD (gastroesophageal reflux disease) (10) H/O unilateral nephrectomy (11) Heart disease (12) HLD (hyperlipidemia) (13) HTN (hypertension) (14) Hydronephrosis (15) Hydronephrosis, left (16) Hypertension (17) Hypothyroid (18) Leg swelling (19) Mild left ventricular systolic dysfunction (20) MRSA bacteremia (21) Pacemaker (22) Right-sided congestive heart failure (23) Seizure (24) Solitary kidney (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 Surgical Problems: (1) H/O thyroidectomy (2) History of appendectomy (3) S/P MVR (mitral valve repair) Family History Heart disease Hypertension Lung disease Social History Smoking Status: Never Smoker Alcohol Use: none Drug Use: none Marital Status: single Housing Status: other Occupation Status: disabled Current/Historical Medications Scheduled Bisacodyl (Dulcolax), 1 SUPP NH UD Brinzolamide Oph (Azopt Oph), 1 DROP OPB BID Bumetanide (Bumetanide), 1 MG PO 5XWK Bumetanide (Bumex), 2 MG PO 2XWK Docusate Sodium (Docusate Sodium), 1 CAP PO BID Donepezil HCl (Donepezil HCl), 10 MG PO HS Fluticasone Prop/Salmeterol (Advair Diskus 250/50 60 Dose), 1 PUFF INH BID Fluticasone Propionate (Nasal) (Flonase Allergy Relief), 1 SPRAY PAULIE BID Gabapentin (Neurontin), 600 MG PO BID Guaifenesin Ext Rel (Mucinex Ext Rel), 600 MG PO Q12 Hydralazine HCl (Hydralazine HCl), 10 MG PO BID Levothyroxine Sodium (Levothyroxine Sodium), 75 MCG PO DAILY Magnesium Hydroxide (Milk Of Magnesia), 30 ML PO PRN UD Metoprolol Succinate (Metoprolol Succinate ER), 25 MG PO DAILY Nitroglycerin (Nitrostat), 0.4 MG UT PRN Oxybutynin Chloride (Oxybutynin Chloride Er), 5 MG PO DAILY Pantoprazole (Pantoprazole Sodium), 40 MG PO DAILY Polyethylene Glycol 3350 (Miralax), 17 GM PO DAILY Pravastatin Sodium (Pravastatin Sodium), 80 MG PO QPM Sennosides (Senokot), 17.2 MG PO QAM Sodium Phosphate/Biphosphate (Fleet Enema), 1 EA NH UD Umeclidinium [place] (Incruse Ellipta), 1 INHA PO DAILY Warfarin Sodium (Coumadin), 5 MG PO 5XWK Warfarin Sodium (Coumadin), 2.5 MG PO 2XWK Scheduled PRN Acetaminophen Tab (Tylenol), 650 MG PO Q6 PRN for Pain or Fever Albuterol Sulf (Proventil 0.083% 2.5MG/3ML), 2.5 MG NEB Q6 PRN for Shortness of Breath Albuterol Sulfate (Proventil Hfa), 2 PUFF INH Q6 PRN for Shortness of Breath Alum & Mag Hydrox-Simethicone (Mylanta Maximum Strength 400-400-40 mg/5Ml), 30 ML PO Q4 PRN for HEART BURN Menthol (Mouth-Throat) (Cepacol Sore Throat), 1 SONAM PO Q2H PRN for Cough Allergies Coded Allergies: Levofloxacin (Verified Allergy, Intermediate, HIVES, 02/25/18) Quinolones (Verified Allergy, Intermediate, HIVES, 02/25/18) Ranitidine (Verified Allergy, Intermediate, HIVES, 02/25/18) Sulfamethoxazole (Verified Allergy, Intermediate, HIVES, 02/25/18) Trimethoprim (Verified Allergy, Intermediate, HIVES, 02/25/18) Clarithromycin (Verified Allergy, Mild, HIVES, CAN TAKE ZITHROMAX W/O PROB , 02/25/18) Amoxicillin (Verified Allergy, Unknown, HIVES, 02/25/18) Omeprazole (Verified Allergy, Unknown, HAS HAD PROTONIX, 02/25/18) Physical Exam Vital Signs Date Time Temp Pulse Resp B/P (MAP) Pulse Ox O2 Delivery O2 Flow Rate FiO2 05/31/18 00:20 84 16 152/85 93 05/31/18 00:15 75 16 147/68 93 05/31/18 00:10 89 16 161/79 93 05/31/18 00:05 83 16 144/65 92 05/31/18 00:00 81 16 146/63 92 05/30/18 23:55 96 16 158/93 92 05/30/18 23:50 88 15 141/76 92 05/30/18 23:50 93 18 141/76 92 Mechanical Ventilator 60 05/30/18 23:40 97 16 155/83 93 05/30/18 23:40 60 05/30/18 23:37 88 05/30/18 23:35 88 16 167/87 96 05/30/18 23:31 165/107 05/30/18 23:31 85 18 165/107 92 Mechanical Ventilator 05/30/18 23:30 65 22 90 05/30/18 23:25 72 13 176/66 90 BiPAP 100 05/30/18 23:10 74 16 86 BiPAP 85 05/30/18 23:08 139/57 05/30/18 23:01 124/57 05/30/18 22:55 57 15 88 05/30/18 22:50 131/51 05/30/18 22:40 60 14 140/56 88 7/18 22:31 136/57 7/18 22:25 59 15 91 /18 22:20 131/55 7/18 22:16 57 14 91 BiPAP 85 7/18 22:11 129/55 7/618 22:01 58 14 90 /18 22:00 147/54 7/18 21:51 140/76 7/18 21:46 69 26 91 7/18 21:41 153/56 7/18 21:31 60 15 126/52 89 18 21:21 132/53 7/18 21:16 58 23 90 7/18 21:10 143/55 18 21:07 153/69 7/18 21:01 60 15 89 /18 20:56 58 16 90 BiPAP 85 /18 20:41 59 19 92 BiPAP 85 /18 20:34 138/50 18 20:26 54 15 90 718 20:25 134/53 BiPAP 70 /18 20:11 64 19 90 7/18 19:56 61 23 91 /18 19:49 62 95 80 18 19:48 59 18 95 BiPAP/CPAP 80 18 19:41 59 20 88 BiPAP 70 7/18 19:31 159/71 7/18 19:29 66 18 19:26 68 22 94 /18 19:25 92 Non-Rebreather 15.0 18 19:25 92 Non-Rebreather 15.0 /18 19:17 151/57 7/18 19:15 36.8 73 24 151/57 85 Nasal Cannula 3.0 Physical Exam GENERAL: Awake, alert, non-rebreather in place. Moderate distress HENT: Normocephalic, atraumatic. EYES: Normal conjunctiva. Sclera non-icteric. PERRL. No anisocoria. NECK: Supple. No nuchal rigidity. FROM. RESPIRATORY: Tachypnea, shallow breath sounds, crackles, scant wheezes. no rhonchi CARDIAC: RRR, no MRG ABDOMEN: Soft, NTND, BS+ MSK: No chest wall TTP, no LE edema NEURO: GCS 15, CN 2-12 intact, moves all 4s on command SKIN: No rash or jaundice noted. Medical Decision & Procedures ER Provider Diagnostic Interpretation: Post intubation chest x-ray portable per my interpretation: mild vascular congestion, enlarged heart, no evidence of pneumothorax, ET tube terminated 2cm above the aleyda, bony elements appear grossly intact, no free air under the diaphragm. Radiology results as stated below per my review and radiologist interpretation: CHEST ONE VIEW PORTABLE CLINICAL HISTORY: Respiratory distress COMPARISON STUDY: February 2018 FINDINGS: The heart is enlarged. There is suspected pulmonary artery dilatation. There is radiographic evidence of congestive failure/fluid overload. There are bilateral pleural effusions. Bibasal airspace opacities, likely representing compressive atelectasis. Electrodes project over the right heart border. There is an electronic device projecting over the left lung base.[ IMPRESSION: 1. Cardiomegaly and suspected pulmonary hypertension 2. Radiographic evidence of congestive failure/fluid overload with bilateral pleural effusions Electronically signed by: Raman Padilla M.D. 05/30/2018 7:59 PM Dictated Date/Time: 05/30/2018 7:58 PM Laboratory Results 05/30/18 19:15 Red Blood Count 3.81, Mean Corpuscular Volume 101.8, Mean Corpuscular Hemoglobin 32.5, Mean Corpuscular Hemoglobin Concent 32.4, Mean Platelet Volume 13.9, Neutrophils (%) (Auto) 73.4, Lymphocytes (%) (Auto) 13.6, Monocytes (%) ( Auto) 12.2, Eosinophils (%) (Auto) 0.1, Basophils (%) (Auto) 0.3, Neutrophils # (Auto) 5.77, Lymphocytes # (Auto) 1.07, Monocytes # (Auto) 0.96, Eosinophils # ( Auto) 0.01, Basophils # (Auto) 0.02 05/30/18 19:15 Test 05/30/18 00:00 05/30/18 19:15 05/30/18 19:47 05/30/18 21:45 Urine Color YELLOW Urine Appearance CLEAR (CLEAR) Urine pH 5.0 (4.5-7.5) Urine Specific [place] 1.014 (1.000-1.030) Urine Protein NEG (NEG) Urine Glucose (UA) NEG (NEG) Urine Ketones NEG (NEG) Urine Occult Blood NEG (NEG) Urine Nitrite NEG (NEG) Urine Bilirubin NEG (NEG) Urine Urobilinogen NEG (NEG) Urine Leukocyte Esterase NEG (NEG) White Blood Count 7.86 K/uL (4.8-10.8) Red Blood Count 3.81 M/uL (4.2-5.4) Hemoglobin 12.4 g/dL (12.0-16.0) Hematocrit 38.8 % (37-47) Mean Corpuscular Volume 101.8 fL (80-100) Mean Corpuscular Hemoglobin 32.5 pg (25-34) Mean Corpuscular Hemoglobin Concent 32.4 g/dl (32-36) Platelet Count 130 K/uL (130-400) Mean Platelet Volume 13.9 fL (7.4-10.4) Neutrophils (%) (Auto) 73.4 % Lymphocytes (%) (Auto) 13.6 % Monocytes (%) (Auto) 12.2 % Eosinophils (%) (Auto) 0.1 % Basophils (%) (Auto) 0.3 % Neutrophils # (Auto) 5.77 K/uL (1.4-6.5) Lymphocytes # (Auto) 1.07 K/uL (1.2-3.4) Monocytes # (Auto) 0.96 K/uL (0.11-0.59) Eosinophils # (Auto) 0.01 K/uL (0-0.5) Basophils # (Auto) 0.02 K/uL (0-0.2) RDW Standard Deviation 59.1 fL (36.4-46.3) RDW Coefficient of Variation 16.0 % (11.5-14.5) Immature Granulocyte % (Auto) 0.4 % Immature Granulocyte # (Auto) 0.03 K/uL (0.00-0.02) Platelet Estimate DECREASED Red Blood Cell Morphology Unremarkable Prothrombin Time 35.1 SECONDS (9.0-12.0) Prothromb Time International Ratio 3.4 (0.9-1.1) Activated Partial Thromboplast Time 45.6 SECONDS (21.0-31.0) Partial Thromboplastin Ratio 1.8 Anion Gap 5.0 mmol/L (3-11) Est Creatinine Clear Calc Drug Dose 16.7 ml/min Estimated GFR () 22.8 Estimated GFR (Non- 19.7 BUN/Creatinine Ratio 28.3 (10-20) Calcium Level 9.5 mg/dl (8.5-10.1) Phosphorus Level 4.2 mg/dl (2.5-4.9) Magnesium Level 2.8 mg/dl (1.8-2.4) Total Bilirubin 0.7 mg/dl (0.2-1) Aspartate Amino Transf (AST/SGOT) 26 U/L (15-37) Alanine Aminotransferase (ALT/SGPT) 24 U/L (12-78) Alkaline Phosphatase 84 U/L (45-117) Troponin I 0.039 ng/ml (0-0.045) Pro-B-Type Natriuretic Peptide 25854 pg/ml (0-900) Total Protein 7.5 gm/dl (6.4-8.2) Albumin 3.2 gm/dl (3.4-5.0) Globulin 4.3 gm/dl (2.5-4.0) Albumin/Globulin Ratio 0.8 (0.9-2) Bedside Lactic Acid Venous 1.89 mmol/L (0.90-1.70) Venous Blood pH 7.39 (7.36-7.41) Venous Blood Partial Pressure CO2 53 mmHg (38.0-50.0) Venous Blood Partial Pressure O2 55 mmHg Venous Blood HCO3 31 mmol/L Venous Blood Oxygen Saturation 87.4 % Venous Blood Base Excess 4.7 mEq/L Test 05/31/18 00:26 Arterial Blood pH 7.46 (7.35-7.45) Arterial Blood Partial Pressure CO2 46 mmHg (35-46) Arterial Blood Partial Pressure O2 59 mm/Hg (80-95) Arterial Blood HCO3 32 mmol/L (19-24) Arterial Blood Oxygen Saturation 91.3 % (90-95) Arterial Blood Base Excess 6.7 mEq/L (-9-1.8) Arterial Blood Gas Delivery 60% Aditya Test POS (POS) Laboratory results reviewed by me Medications Administered Medications (Trade) Dose Ordered Sig/Mehdi Route Start Time Stop Time Status Last Admin Dose Admin Albuterol/ Ipratropium (Duoneb) 12 ml ONE ONCE INH 05/30/18 19:30 05/30/18 19:31 DC 05/30/18 19:44 12 ML Cefepime HCl 1000 mg/Dextrose 111 ml @ 200 mls/hr NOW STAT IV 05/30/18 19:26 05/30/18 19:59 DC 05/30/18 21:16 200 MLS/HR Ciprofloxacin/ Dextrose (Cipro / D5W) 400 mg NOW STAT IV 05/30/18 19:59 05/30/18 20:00 DC 05/30/18 21:16 400 MG Bumetanide (Bumex Iv) 1 mg NOW ONCE IV 05/30/18 21:00 05/30/18 21:01 DC 05/30/18 21:16 1 MG Ketamine HCl (Ketalar Steri-Vial Inj) 70 mg NOW STAT IV 05/30/18 23:23 05/30/18 23:25 DC 05/30/18 23:29 70 MG Rocuronium [place] (Zemuron Inj) 70 mg ONE STAT IV 05/30/18 23:23 05/31/18 00:05 DC 05/30/18 23:30 70 MG Propofol (Diprivan Iv Emulsion 100ml Vial) 1 dose STK-MED ONCE .ROUTE 05/30/18 23:40 05/30/18 23:41 DC 05/30/18 23:44 1 DOSE Procedure Endotracheal Intubation Indication: Hypoxic respiratory failure, poor mentation. The patient was on 100% oxygen via NRB prior to the procedure. Suction, airway equipment, RSI drugs, respiratory equipment, and appropriate personnel were prepared prior to the initiation of the procedure. A time out was taken. Induction was performed with ketamine and rocuronium. After observing the clinical benefit of the medications, the airway was easily visualized utilizing a Mac 3. A 7.5 size ETT tube was placed atraumatically to 22 cm using standard technique. The cuff inflated without signs of malfunction. There were bilateral breath sounds, positive colormetric change, no gastric sounds, a good capnography waveform, and post procedure pulse oximetry was 95%. Post intubation sedation and paralysis was administered using propofol. There were no complications. ECG Per My Interpretation Indication: altered mental status Rate (beats per minute): 66 Rhythm: normal sinus Findings: RBBB, T-wave inversion (Anterior), other (wide QRS) Comparison ECG Date: 03/02/2018 Change: RBBB and TWI are old. ED Course 1920: The patient was evaluated in room B12A. A complete history and physical exam was performed. 1948: The patient was placed on Bi-PAP. 2102: I reevaluated the patient and discussed her test results with her and her family. The patient is DNI but not DNR. They are agreeable with the treatment plan. 0: I discussed the patient's case with the [facility] Hospitalist Service. The patient will be evaluated for further management and care. 2230: The patient follows with Stefanie. The [facility] Hospitalist has been paged. 2252: I discussed the patient's case [facility] Underwood[facility]. The patient will be evaluated for further management and care. 2300: Patient's family states she can be on a breathing tube for one night. 2324: The patient was moved to A01. I intubated the patient at the patient and family's request. Please refer to the procedure note for more information. Medical Decision The patient is a 72 year old white female with a past medical history of a-fib, CHF, CKD, COPD, HTN, hypothyroidism, NVR on Coumadin, seizures, dementia who presents to the ED with a cc of resolved seizure like activity that occurred this afternoon. Nursing notes reviewed. Ancillary studies and prior records reviewed. Differential diagnosis: Etiologies such as infections, reactive airway disease, pneumonia, pneumothorax , COPD, CHF, cardiac ischemia, pulmonary embolism, musculoskeletal, gastrointestinal, metabolic, infection, hypoglycemia, electrolyte abnormalities , cardiac sources, intracerebral event, toxicologic, neurologic, as well as others were entertained. Patient was seen and evaluated at the bedside. Patient was coming from [facility]. There was a concern about a period of brief unresponsiveness and questionable apnea. The patient did have some shaking but apparently was able to talk. Patient does have severe medical comorbidities. The patient was satting poorly on her home oxygen was placed on 15 L. Patient was still having some difficulty maintaining her oxygen saturation so the patient was immediately placed on BiPAP. Attempted to titrate her oxygen but she persistently with the saturate so she was requiring an additional amount of FiO2. Patient did have tachypnea moderate respiratory distress shallow breath sounds with associated crackles and scant wheezes. The patient had already received some Solu-Medrol and DuoNeb in route. Patient was given additional DuoNeb as she was on her BiPAP machine. Patient was empirically covered with cefepime and ciprofloxacin as the patient is in a [facility] and to cover for chest infection. The patient did have blood work completed, blood and urine cultures, chest x-ray. Patient's chest x-ray was concerning for volume overload. Patient was given some Lasix. Patient's daughter did arrive and I did discuss goals of care for the patient. She did state that the patient was DNI but not DNR and would receive CPR if her heart stopped. Patient's daughter did say that the patient did have a history of seizures. A CT the brain was not obtained at this time as the patient was too unstable to go to CT scan as she would become acutely hypoxic off of BiPAP. Patient's white blood cell count within normal limits. Patient's H&H is relatively normal. Patient does have CKD that is fairly unchanged from prior. Patient's BNP is elevated. There was significant amount of difficulty in obtaining a second line as well as a VBG. The patient still was requiring high amounts of oxygen the patient was not very arousable. Patient's EKG did show T- wave inversions in the anterior leads. Patient also did have evidence of right bundle branch block. Compared to old EKG these are unchanged. Right bundle is probably related to her advanced lung disease. I did discuss the case with the hospitalist and it was some initial difficulty getting the appropriate hospitalist is the wrong hospitalist had been paged and told her the patient initially. I then did speak with the correct hospitalist who did discuss the CODE STATUS with the patient's power of attorney law clerk who stated that he would be willing to have the patient intubated for 1-2 days at maximum. Patient was then transferred 1 of the [facility] space and the patient was intubated. The patient did not have any episodes of desaturation. The patient was intubated without complication and the patient was placed on a propofol drip. The admitting hospitalist did speak with the industrial twisting machine operator and the patient was admitted to the ICU for hypoxic respiratory failure and altered mental status. Patient was pending a CT of the brain at the time of her admission. Medication Reconcilliation Current Medication List: was personally reviewed by me Blood Pressure Screening Patient's blood pressure: Elevated blood pressure Monitored by hospitalist. Consults Consulting Physician: [facility] Hospitalist Service Returned Call: [phone] I discussed the patient's case with the [facility] Hospitalist Service. The patient will be evaluated for further management and care. Additional Consults: Time Called: [phone] Consulted Physician: Stefanie Scott Hospitalist Returned Call: [phone] Additional Comments: I discussed the patient's case with Stefanie Scott. The patient will be evaluated for further management and care. Impression Primary Impression: Acute respiratory failure with hypoxia Additional Impressions: Pulmonary HTN CHF (congestive heart failure) Hyperkalemia CKD (chronic kidney disease), stage IV COPD (chronic obstructive pulmonary disease) Critical Care I have personally spent greater than 120 minutes of critical care time in the direct management of this patient. This includes bedside care, interpretation of diagnostic studies, and testing, discussion with consultants, patient, and family members, and other required patient management activities. This 120 minutes is in excess of all separately billable procedures. Scribe Attestation The scribe's documentation has been prepared under my direction and personally reviewed by me in its entirety. I confirm that the note above accurately reflects all work, treatment, procedures, and medical decision making performed by me. Departure Information Dispostion Being Evaluated By Hospitalist Prescriptions Metoprolol Succinate (Metoprolol Succinate ER) 25 Mg Tabcr 25 MG PO DAILY, #20 Prov: Valentin Underwood MD 05/31/18 Referrals Josesito Kaiser M.D. (PCP) Patient Instructions My [facility] Problem Qualifiers Additional Impressions: CHF (congestive heart failure) Heart failure type: combined systolic and diastolic Heart failure chronicity : acute on chronic Qualified Codes: I50.43 - Acute on chronic combined systolic (congestive) and diastolic (congestive) heart failure COPD (chronic obstructive pulmonary disease) COPD type: COPD with acute exacerbation Qualified Codes: J44.1 - Chronic obstructive pulmonary disease with (acute) exacerbation
[2018-05-30] MEDS ORDERED: ALBUT/IPRATROP 3MG/0.5MG NEB 3 ML VIAL INH ONE (19:30)
[2018-05-30 19:48] VITALS: PULSE 59; O2SAT 95
[2018-05-30 19:49] VITALS: PULSE 62; O2SAT 95
[2018-05-30 19:57] LABS: MEAN CORPUSCULAR HGB CONC 32.4 g/dl (32-36)
[2018-05-30] MEDS ORDERED: CIPROFLOXACIN 400MG / 200ML D5W IV STA (19:59)
--- NOTE | 2018-05-30 20:01 | DIAGNOSTIC IMAGING REPORT ---
CHEST ONE VIEW PORTABLE CLINICAL HISTORY: Respiratory distress COMPARISON STUDY: February 2018 FINDINGS: The heart is enlarged. There is suspected pulmonary artery dilatation. There is radiographic evidence of congestive failure/fluid overload. There are bilateral pleural effusions. Bibasal airspace opacities, likely representing compressive atelectasis. Electrodes project over the right heart border. There is an electronic device projecting over the left lung base.[ IMPRESSION: 1. Cardiomegaly and suspected pulmonary hypertension 2. Radiographic evidence of congestive failure/fluid overload with bilateral pleural effusions Electronically signed by: Raman Padilla M.D. 05/30/2018 7:59 PM Dictated Date/Time: 05/30/2018 7:58 PM
[2018-05-30 20:14] LABS: INR 3.4 (0.9-1.1)
[2018-05-30 20:19] LABS: ALBUMIN 3.2 gm/dl (3.4-5.0); CALCIUM 9.5 mg/dl (8.5-10.1); CREATININE 2.37 mg/dl (0.60-1.20); PHOSPHORUS 4.2 mg/dl (2.5-4.9); POTASSIUM 5.3 mmol/L (3.5-5.1); TOTAL PROTEIN 7.5 gm/dl (6.4-8.2)
[2018-05-30 20:23] LABS: PTT PATIENT 45.6 SECONDS (21.0-31.0)
[2018-05-30] MEDS ORDERED: BISA10SU38 PR (20:29)
[2018-05-30] MEDS ORDERED: DOCU100C31 PO (20:29)
[2018-05-30] MEDS ORDERED: BUME2TAB3 PO (20:29)
[2018-05-30] MEDS ORDERED: WARF5TAB90 PO ×2 (20:29)
[2018-05-30] MEDS ORDERED: SODIENE PR (20:29)
[2018-05-30] MEDS ORDERED: ADVIN25/60 INH (20:29)
[2018-05-30] MEDS ORDERED: MENT5.4L2 PO (20:29)
[2018-05-30] MEDS ORDERED: ALBUAER INH (20:42)
[2018-05-30] MEDS ORDERED: GFNSR600 PO (20:42)
[2018-05-30] MEDS ORDERED: ALUM1SUS57 PO (20:42)
[2018-05-30] MEDS ORDERED: ACET-1693 PO (20:42)
[2018-05-30] MEDS ORDERED: MOML PO (20:42)
[2018-05-30] MEDS ORDERED: NITR0.4S UT (20:42)
[2018-05-30] MEDS ORDERED: POLY335019 PO (20:42)
[2018-05-30 20:44] LABS: HEMATOCRIT 38.8 % (37-47); HEMOGLOBIN 12.4 g/dL (12.0-16.0); MEAN CELL VOLUME 101.8 fL (80-100); MEAN CORPUSCULAR HEMOGLOBIN 32.5 pg (25-34); MEAN PLATELET VOLUME 13.9 fL (7.4-10.4); PLATELET COUNT 130 K/uL (130-400); RED CELL DISTRIBUTION WIDTH SD 59.1 fL (36.4-46.3); WHITE BLOOD COUNT 7.86 K/uL (4.8-10.8)
[2018-05-30 20:45] LABS: BASO % 0.3 %; BASO ABS # 0.02 K/uL (0-0.2); EOS % 0.1 %; EOS ABS # 0.01 K/uL (0-0.5); IG# 0.03 K/uL (0.00-0.02); LYMPH % 13.6 %; LYMPH ABS # 1.07 K/uL (1.2-3.4); MONO % 12.2 %; MONO ABS # 0.96 K/uL (0.11-0.59); NEUT % 73.4 %; NEUT ABS # 5.77 K/uL (1.4-6.5)
[2018-05-30] MEDS ORDERED: BUMETANIDE SOLN 1 MG/4 ML VIAL IV ONE (21:00)
[2018-05-30] MEDS ORDERED: TPRSR/25 PO (22:24)
[2018-05-30] MEDS ORDERED: GABA-1219 PO (22:24)
[2018-05-30] MEDS ORDERED: ARC10 PO (22:25)
[2018-05-30] MEDS ORDERED: SENN-63 PO (22:28)
[2018-05-30] MEDS ORDERED: RAPID SEQUENCE INDUCTION BAG ONE (23:05)
[2018-05-30] MEDS ORDERED: KETAMINE HCL INJ 50 MG/ML 10 ML VIAL IV STA (23:23)
[2018-05-30] MEDS ORDERED: ROCURONIUM BROMIDE 10 MG/ML 5 ML VIAL IV STA (23:23)
[2018-05-30] MEDS ORDERED: PROPOFOL IV EMULSION 10 MG/ML 100 ML VIAL ONE (23:40)
[2018-05-31] VITALS (31 sets, daily range): BP systolic 106–181; BP diastolic 46–98; PULSE 47–76; TEMP 36.6–37.3; O2SAT 89–97; Ht 142.2 cm; Wt 63.3 kg
[2018-05-31] MEDS ORDERED: ROCURONIUM BROMIDE 10 MG/ML 10 ML VIAL IV STA (00:03)
[2018-05-31] MEDS ORDERED: MoRPHine SULFATE 4 MG/ML 1 ML CARP\\VIAL IV PRN (00:15)
[2018-05-31] MEDS ORDERED: HydrALAZINE HCL 20 MG/ML VIAL IV. PRN (00:15)
[2018-05-31] MEDS ORDERED: ICU PROTOCOL FOR HYPERGLYCEMIA PRN (00:15)
[2018-05-31] MEDS ORDERED: PROPOFOL IV EMULSION 10 MG/ML 100 ML VIAL IV ONE (00:15)
[2018-05-31] MEDS ORDERED: LORAZEPAM 2 MG/ML 1 ML VIAL IV PRN (00:30)
[2018-05-31] MEDS ORDERED: TPRSR/25 PO (00:34)
[2018-05-31] MEDS ORDERED: ALBUTEROL HFA 8 GM INHALER INH PRN (00:45)
[2018-05-31] MEDS ORDERED: CEFEPIME CONSULT ACTIVE PRN (01:45)
[2018-05-31] MEDS: DOXYCYCLINE IV 100 MG in DEXTROSE 5% 100ML 100 ML IV SCH ×2 (02:52→14:03)
[2018-05-31] MEDS: METHYLPREDNISOLONE IV 40 MG in SYRINGE 0 ML IV SCH ×3 (04:20→19:54)
--- NOTE | 2018-05-31 04:25 | HISTORY & PHYSICAL EXAMINATION ---
DATE OF ADMISSION: 05/31/2018 CHIEF COMPLAINT: Possible seizures, acute respiratory failure. HISTORY OF PRESENT ILLNESS: This is a 72-year-old female with past medical history significant for right-sided heart failure, diastolic CHF, pulmonary hypertension, obstructive sleep apnea, COPD, chronic cor pulmonale, noncompliant with BIPAP, chronic respiratory failure on 3lt oxygen history of AFib, atrial flutter status post ablation, chronic kidney disease stage IV, Andrew inhibitor intolerance, hypertension, hyperlipidemia, iron deficiency anemia, osteoarthritis. Currently at [facility] for the last 2 weeks and plan for going to [facility]. Presents with seizure-like episode at [facility]. She fell today after eating lunch. She has some tremors and seizure-like activity and her sugars were running okay. She was brought in here. Initially, she was talking okay in the ER and she was placed on BiPAP. Then again she started shaking and she became somnolent and her oxygen saturation had dropped to 87% to 88% on BiPAP. Daughter was in the room and initially stated patient is DNR and does not want to be intubated, but came in. He said the patient is DNR, but only for long-term vent dependent, but he is okay for intubation for a couple of days. Patient was somnolent and could not be woken up, but blood pressure was okay. Patient was status post intubation in the ER. Saturation improved to 92% to 93% on 60% oxygen after intubation. Chest x-ray showed bilateral pleural effusions and congestion. Labs were remarkable for YAZMIN with a creatinine of 2, INR was 3.4, lactic acid was 1.8, BNP 14,000, potassium of 5.3, and she also received a dose of steroids and antibiotics in the ER. ALLERGIES: AMOXICILLIN, CLARITHROMYCIN, LEVAQUIN, OMEPRAZOLE, QUINOLONES, STATINS, SULFA, AND BACTRIM. PAST MEDICAL HISTORY: As mentioned above. 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 MEDICATIONS: This patient is currently on pravastatin 80 mg p.o. daily, Bumex 1 mg every day and 2 mg on Tuesdays and Saturdays, nitroglycerin 0.4 mg sublingual p.r.n., Toprol-XL 25 mg p.o. daily, Ditropan XL 5 mg p.o. daily, Advair Diskus 250/50 one puff b.i.d., Aricept 10 mg p.o. daily, Ellipta 62.5 mcg one inhalation once daily, gabapentin 600 mg p.o. b.i.d., Coumadin as directed, Protonix 40 mg p.o. daily, hydralazine 10 mg p.o. b.i.d., Colace 100 mg p.o. b.i.d., MiraLax 17 grams daily, levothyroxine 75 mcg daily, Flonase 1 spray into each nostril daily, albuterol 2 puffs every 6 hours p.r.n., albuterol nebulization every 6 hours p.r.n., Azopt 1% ophthalmic suspension 1 drop b.i.d., Senokot 8.6 capsules daily, oxygen 3 liters 24 hours a day. FAMILY HISTORY: Mother has gout. Father and brother are . SOCIAL HISTORY: Former smoker, quit in 2004. Prior to that smoked 1 pack a day for 30 years. No alcohol use, no drug use. Currently living at [facility]. REVIEW OF SYSTEMS: Unobtainable. PHYSICAL EXAMINATION: GENERAL: The patient is somnolent, currently status post intubation. VITAL SIGNS: Temperature 36.8, pulse 84, respiratory rate 16, blood pressure 158/93, oxygen on BiPAP she was 87% to 88%, but currently status post intubation saturating 93%. HEENT: No pallor, no icterus. NECK: No JVD, no neck masses, no carotid bruits. CARDIOVASCULAR: S1, S2 heard. Regular rate and rhythm, no murmur, no gallop. RESPIRATORY SYSTEM: Normal AP diameter. Currently no accessory muscle use. No wheezing heard. Mild bibasilar crackles. ABDOMEN: Soft, bowel sounds present. No distention. CENTRAL NERVOUS SYSTEM: Currently status post intubated and sedated. EXTREMITIES: Mild pedal edema present. LABORATORIES: Sodium 138, potassium 5.3, chloride 99, bicarbonate 33, BUN 67, creatinine 2.3, serum glucose 114. Point of care lactic acid 1.8, calcium 9.5, phosphorus 4.2, magnesium 2.8, total bilirubin 0.7, AST 26, ALT 24, alkaline phosphatase 84. Troponin I less than 0.03. BNP 14,557, albumin 3.2. WBC 7.8, hemoglobin 12.4, hematocrit 38.8, platelets 130. PT 35.1, INR 3.4, APTT 45.6. Urinalysis negative. Chest x-ray, cardiomegaly and pulmonary hypertension, CHF and fluid overload with bilateral pleural effusions. EKG: Normal sinus rhythm with right bundle branch block, left anterior fascicular block at the rate of 66. ASSESSMENT AND PLAN: A 72-year-old female who presents with [id number] respiratory failure, possible seizures. 1. [id number] respiratory failure. Vent dependent respiratory failure.Possible aute right sided heart failure, pleural effusions. Patient has history of COPD, right-sided heart failure, pulmonary hypertension, sleep apnea, noncompliant with BiPAP. Cor pulmonale Chest x-ray showed bilateral pleural effusion and congestion. Patient received a dose of IV Bumex in the ER. Patient was saturating at 87% to 88% on BiPAP, currently status post intubation. Family is okay for intubation for a couple of days. They say they have papers for DNR and does not want assistant terminal manager intubation. Possible healthcare pneumonia as patient is from assisted, though there is no fever and no white count. We empirically started on IV cefepime and IV doxycycline. Currently saturating okay on 60% FIO2 with PEEP of 5, Tidal , and respiratory rate 16. We will continue the same.Consulted and notified critical care . Closer monitoring in the ICU. Repeat lactic acid in the a.m. Current lactate is 1.8. 2. Possible seizures. The patient had some shaking of the body at the assisted and also she was shaking in the ER and this could be from hypoxia or could be seizures. As per family, she had an episode of seizure in the past. Currently, she is status post sedated for intubation. It could be postictal state. Consult neurology in a.m. 3. Hypothyroidism, IV Synthroid. 4. Hyperlipidemia, holding statin. 5. Acute kidney injury on chronic kidney disease stage IV. Baseline creatinine around 2, presents with creatinine of 2.3. Diuretics on hold. Received a dose of IV Bumex. We will monitor the response. 6. History of type 2 diabetes, not on any medications. We will monitor the blood sugars. 7. History of chronic obstructive pulmonary disease, currently patient is intubated. Inhalers as needed, IV Solu-Medrol. 8. History of paroxysmal atrial fibrillation, on Coumadin. Follow the INR. 9. Gastroesophageal reflux disease, proton pump inhibitor. 10. Hypertension. Holding the p.o. medications. Placed on IV Lopressor and IV hydralazine p.r.n. 11. Deep venous thrombosis prophylaxis, on Coumadin. 12. Disposition: Close monitoring in the ICU. 13. Code status. Family okay for intubation for a couple of days but they say she signed papers for DNR. Will keep full code for now until get the DNR papers Total critical care time more than 60 minutes. JUHI
[2018-05-31 05:41] LABS: INR 4.2 (0.9-1.1)
[2018-05-31] MEDS: METOPROLOL TARTRATE 1 MG/ML VIAL IV. SCH ×4 (06:00→23:46)
[2018-05-31] MEDS ORDERED: ROCURONIUM BROMIDE 10 MG/ML 10 ML VIAL IV ONE (07:31)
[2018-05-31] MEDS ORDERED: KETAMINE HCL INJ 50 MG/ML 10 ML VIAL IV ONE (07:31)
[2018-05-31] MEDS ORDERED: SUCCINYLCHOLINE CHLORIDE 20 MG/ML 10 ML VIAL IV ONE (07:31)
--- NOTE | 2018-05-31 07:40 | DIAGNOSTIC IMAGING REPORT ---
CT SCAN OF THE BRAIN WITHOUT IV CONTRAST CLINICAL HISTORY: Change in mental status. COMPARISON STUDY: CT of the brain dated 06/08/2017. TECHNIQUE: Unenhanced axial CT scan of the brain is performed from the vertex to the skull base. A dose lowering technique was utilized adhering to the principles of ALARA. CT DOSE: 537.48 mGy.cm FINDINGS: Brain parenchyma: There are age-related involutional changes noting mild subcortical and periventricular microangiopathic change. There is no hemorrhage, mass effect, or evidence of acute territorial ischemia by CT criteria. Mejia-white matter is preserved. No extra-axial fluid collection is seen. Mineralization is noted in the basal ganglia. Ventricles, sulci, cisterns: Prominent secondary to involutional change. Intracranial vasculature: There is atherosclerotic calcification of the cavernous carotid and vertebral arteries. Calvarium: Unremarkable. Sinuses and mastoids: The Sinuses are underpneumatized. Mild mucosal thickening is seen within the frontal, ethmoid, and sphenoid sinuses. There are bilateral mastoid effusions. Orbits: The bony orbits are grossly intact. IMPRESSION: There is no hemorrhage, mass effect, or evidence of acute territorial ischemia by CT criteria. Electronically signed by: Roby Hauser M.D. 05/31/2018 7:39 AM Dictated Date/Time: 05/31/2018 7:37 AM
--- NOTE | 2018-05-31 08:14 | DIAGNOSTIC IMAGING REPORT ---
SINGLE VIEW CHEST CLINICAL HISTORY: Respiratory failure. Intubation. FINDINGS: An AP, portable, semierect chest radiograph is compared to performed earlier the same day 05/30/2018. Correlation is made with chest CT dated 08/15/2017. The examination is degraded by portable technique and patient rotation. An endotracheal tube has been placed. The tip of the catheter projects 2 cm above the aleyda. Epicardial pacing leads are noted. The heart is enlarged and there is atherosclerotic calcification with uncoiling of the thoracic aorta. The main pulmonary arteries are markedly dilated, similar to previous. This suggests pulmonary hypertension. There is mild pulmonary vascular congestion. There are small pleural effusions with bibasilar consolidation. No pneumothorax is seen. The skeletal structures are osteopenic. The bony thorax is grossly intact. IMPRESSION: 1. An endotracheal tube has been placed. The tip of the catheter projects 2 cm above the aleyda. 2. Cardiomegaly with evidence of pulmonary artery hypertension and congestive failure. 3. There are small pleural effusions with bibasilar consolidation. This likely represents atelectasis. Clinical correlation will be required. Electronically signed by: Roby Hauser M.D. 05/31/2018 8:13 AM Dictated Date/Time: 05/31/2018 8:11 AM
[2018-05-31] MEDS: LEVOTHYROXINE SODIUM INJ 35 MCG in SYRINGE 0 ML IV SCH (09:10)
[2018-05-31] MEDS ORDERED: CARBOHYDRATES FOR HYPOGLYCEMIA PO PRN (09:15)
[2018-05-31] MEDS ORDERED: GLUCOSE 40% GEL 15 GM TUBE PO PRN (09:15)
[2018-05-31] MEDS ORDERED: DEXTROSE 50% 50 ML SYR IV PRN (09:15)
[2018-05-31] MEDS ORDERED: GLUCOSE 10 TABS/TUBE PO PRN (09:15)
[2018-05-31] MEDS ORDERED: GLUCAGON FOR INJ 1 MG VIAL SQ PRN (09:15)
--- NOTE | 2018-05-31 09:51 | Progress Note ---
Internal Med Progress Note Date of Service: May 31, 2018. Provider Documentation: SUBJECTIVE: Seen and examined at bedside Currently sedated and intubated Requires 85% FiO2 to maintain Sats Does not follow commands No family at bedside No seizure like activity since hospitalization OBJECTIVE: Vital Signs-as noted below Physical Exam: General Appearance:Moderately built and nourished, +Sedated and Intubated Head: normocephalic, Atraumatic Eyes: normal inspection, Pinpoint pupils Neck: supple, Trachea midline Respiratory/Chest:B/L air entry, Basal Crackles Cardiovascular: S1, S2, No murmur, +Bradycardia Abdomen/GI:Soft, Non tender, Bowel sounds present Extremities/Musculoskelatal:normal inspection, no edema Neurologic/Psych:Complete neuro exam not performed, Sedated Skin: normal color Lab data as noted below. ASSESSMENT & PLAN: Patient is a 72 yr female who presents with acute respiratory failure and possible seizure. Acute on chronic respiratory failure: Likely multifactorial Acute on chronic diastolic CHF H/O Right HF, Diastolic CHF, Pulmonary HTN, COPD, JOSIAS, Chronic cor Pulmonale , Non complaint with BiPAP CXR: Pleural effusion, bibasilar consolidation-likely atelectasis Continue Vent Support Assistant Plant Control Operator on board Received IV Bumex in ER Empirically on IV antibiotics IV solumedrol, Nebs Cultures pending Need to address goals of care seizure like activity As per family, she had an episode of seizure in the past EEG ordered Appreciate Neurology Input Monitor for seizure activity Hypothyroidism: Continue Synthroid H/O DM II: Diet Controlled BG levels worsened likely 2/2 steroids Check A1C Start ISS Monitor BGs Acute kidney injury on CKD IV: Baseline Cr around 2 Monitor renal function Avoid Nephrotoxic agents as able H/O COPD: Continue Nebs, Solu-Medrol H/O Paroxysmal atrial fibrillation: Supratherapeutic INR;4.2 Hold Coumadin Metoprolol for rate control GERD: continue PPI Hypertension: Hold HTN meds Monitor DVT Px: SCDs INR Supra therapeutic Code status: Full Code for now Need to readdress code status Disposition: Monitor in ICU Vital Signs: Date Time Temp Pulse Resp B/P (MAP) Pulse Ox O2 Delivery O2 Flow Rate FiO2 05/31/18 08:00 Mechanical Ventilator 85 05/31/18 08:00 85 05/31/18 07:23 85 05/31/18 06:00 52 16 91 7/7/18 06:00 37.3 52 16 110/95 (100) 91 Mechanical Ventilator 80 7/7/18 06:00 54 7/7/18 05:08 80 7/7/18 05:00 63 16 116/53 (79) 90 7/7/18 05:00 63 16 116/53 (74) 90 Mechanical Ventilator 80 7/7/18 04:00 80 7/7/18 04:00 53 16 123/51 (84) 95 7/7/18 04:00 37.3 53 16 123/51 (75) 95 Mechanical Ventilator 80 7//18 03:00 37.1 57 16 110/50 (70) 97 Humidified Oxygen 80 7/18 03:00 57 16 110/50 (92) 97 7//18 02:08 80 7//18 02:00 37.3 59 16 107/48 (67) 92 Mechanical Ventilator 80 7//18 02:00 59 16 92 7/7/18 02:00 Mechanical Ventilator 80 7//18 01:31 37.3 76 16 181/74 90 Mechanical Ventilator 80 7//18 01:24 80 7/7/18 01:00 80 18 146/78 93 7/7/18 00:20 84 16 152/85 93 7/7/18 00:15 75 16 147/68 93 7//18 00:10 89 16 161/79 93 7/7/18 00:05 83 16 144/65 92 7/7/18 00:00 81 16 146/63 92 7/6/18 23:55 96 16 158/93 92 7/6/18 23:50 88 15 141/76 92 7/6/18 23:50 93 18 141/76 92 Mechanical Ventilator 60 7/6/18 23:40 97 16 155/83 93 7/6/18 23:40 60 7/6/18 23:37 88 7/6/18 23:35 88 16 167/87 96 7/6/18 23:31 165/107 7/6/18 23:31 85 18 165/107 92 Mechanical Ventilator 7/618 23:30 65 22 90 7/6/18 23:25 72 13 176/66 90 BiPAP 100 7/6/18 23:10 74 16 86 BiPAP 85 7/6/18 23:08 139/57 718 23:01 124/57 7/18 22:55 57 15 88 7/18 22:50 131/51 7/18 22:40 60 14 140/56 88 18 22:31 136/57 7/18 22:25 59 15 91 18 22:20 131/55 718 22:16 57 14 91 BiPAP 85 18 22:11 129/55 718 22:01 58 14 90 18 22:00 147/54 18 21:51 140/76 18 21:46 69 26 91 05/30/18 21:41 153/56 18 21:31 60 15 126/52 89 18 21:21 132/53 18 21:16 58 23 90 18 21:10 143/55 05/30/18 21:07 153/69 05/30/18 21:01 60 15 89 05/30/18 20:56 58 16 90 BiPAP 85 18 20:41 59 19 92 BiPAP 85 18 20:34 138/50 05/30/18 20:26 54 15 90 18 20:25 134/53 BiPAP 70 18 20:11 64 19 90 18 19:56 61 23 91 18 19:49 62 95 80 05/30/18 19:48 59 18 95 BiPAP/CPAP 80 05/30/18 19:41 59 20 88 BiPAP 70 18 19:31 159/71 18 19:29 66 18 19:26 68 22 94 18 19:25 92 Non-Rebreather 15.0 05/30/18 19:25 92 Non-Rebreather 15.0 18 19:17 151/57 18 19:15 36.8 73 24 151/57 85 Nasal Cannula 3.0 Lab Results: Results Past 24 Hours Test 05/30/18 19:15 05/30/18 19:47 05/30/18 21:45 7/7/18 00:26 Range/Units White Blood Count 7.86 4.8-10.8 K/uL Red Blood Count 3.81 4.2-5.4 M/uL Hemoglobin 12.4 12.0-16.0 g/dL Hematocrit 38.8 37-47 % Mean Corpuscular Volume 101.8 80-100 fL Mean Corpuscular Hemoglobin 32.5 25-34 pg Mean Corpuscular Hemoglobin Concent 32.4 32-36 g/dl Platelet Count 130 130-400 K/uL Mean Platelet Volume 13.9 7.4-10.4 fL Neutrophils (%) (Auto) 73.4 % Lymphocytes (%) (Auto) 13.6 % Monocytes (%) (Auto) 12.2 % Eosinophils (%) (Auto) 0.1 % Basophils (%) (Auto) 0.3 % Neutrophils # (Auto) 5.77 1.4-6.5 K/uL Lymphocytes # (Auto) 1.07 1.2-3.4 K/uL Monocytes # (Auto) 0.96 0.11-0.59 K/uL Eosinophils # (Auto) 0.01 0-0.5 K/uL Basophils # (Auto) 0.02 0-0.2 K/uL RDW Standard Deviation 59.1 36.4-46.3 fL RDW Coefficient of Variation 16.0 11.5-14.5 % Immature Granulocyte % (Auto) 0.4 % Immature Granulocyte # (Auto) 0.03 0.00-0.02 K/uL Platelet Estimate DECREASED Red Blood Cell Morphology Unremarkable Prothrombin Time 35.1 9.0-12.0 SECONDS Prothromb Time International Ratio 3.4 0.9-1.1 Activated Partial Thromboplast Time 45.6 21.0-31.0 SECONDS Partial Thromboplastin Ratio 1.8 Sodium Level 138 136-145 mmol/L Potassium Level 5.3 3.5-5.1 mmol/L Chloride Level 99 98-107 mmol/L Carbon Dioxide Level 33 21-32 mmol/L Anion Gap 5.0 3-11 mmol/L Blood Urea Nitrogen 67 7-18 mg/dl Creatinine 2.37 0.60-1.20 mg/dl Est Creatinine Clear Calc Drug Dose 16.7 ml/min Estimated GFR () 22.8 Estimated GFR (Non- 19.7 BUN/Creatinine Ratio 28.3 10-20 Random Glucose 114 70-99 mg/dl Calcium Level 9.5 8.5-10.1 mg/dl Phosphorus Level 4.2 2.5-4.9 mg/dl Magnesium Level 2.8 1.8-2.4 mg/dl Total Bilirubin 0.7 0.2-1 mg/dl Aspartate Amino Transf (AST/SGOT) 26 15-37 U/L Alanine Aminotransferase (ALT/SGPT) 24 12-78 U/L Alkaline Phosphatase 84 45-117 U/L Troponin I 0.039 0-0.045 ng/ml Pro-B-Type Natriuretic Peptide 08786 0-900 pg/ml Total Protein 7.5 6.4-8.2 gm/dl Albumin 3.2 3.4-5.0 gm/dl Globulin 4.3 2.5-4.0 gm/dl Albumin/Globulin Ratio 0.8 0.9-2 Bedside Lactic Acid Venous 1.89 0.90-1.70 mmol/L Venous Blood pH 7.39 7.36-7.41 Venous Blood Partial Pressure CO2 53 38.0-50.0 mmHg Venous Blood Partial Pressure O2 55 mmHg Venous Blood HCO3 31 mmol/L Venous Blood Oxygen Saturation 87.4 % Venous Blood Base Excess 4.7 mEq/L Arterial Blood pH 7.46 7.35-7.45 Arterial Blood Partial Pressure CO2 46 35-46 mmHg Arterial Blood Partial Pressure O2 59 80-95 mm/Hg Arterial Blood HCO3 32 19-24 mmol/L Arterial Blood Oxygen Saturation 91.3 90-95 % Arterial Blood Base Excess 6.7 -9-1.8 mEq/L Arterial Blood Gas Delivery 60% Aditya Test POS POS Test 05/31/18 04:59 05/31/18 06:44 Range/Units Prothrombin Time 42.9 9.0-12.0 SECONDS Prothromb Time International Ratio 4.2 0.9-1.1 Bedside Glucose 184 70-90 mg/dl Microbiology Results 05/31/18 Blood Culture, Received Pending 05/30/18 Blood Culture, Received Pending 05/31/18 MRSA DNA Surveillance Screen - Final, Complete Specimen Negative for MRSA by DNA Probe
[2018-05-31] MEDS ORDERED: FENTANYL CITRATE INJ 50 MCG/1 ML 2 ML VIAL IV PRN (10:15)
[2018-05-31] MEDS ORDERED: BUMETANIDE IV 1 MG in SYRINGE 0 ML IV ONE (10:15)
--- NOTE | 2018-05-31 10:26 | NEUROLOGY CONSULTATION ---
DATE OF CONSULTATION: 05/31/2018 REASON FOR CONSULTATION: Possible seizure. HISTORY OF PRESENT ILLNESS: Ms. Humphries is a 72-year-old with right-sided heart failure, pulmonary hypertension, obstructive sleep apnea, COPD, chronic cor pulmonale, noncompliant with BiPAP, chronic respiratory failure, history of AFib, atrial flutter status post ablation, chronic kidney disease, hypertension, hyperlipidemia, currently living at [facility] for 2 weeks with plan to go to [facility]. She was said to have had a seizure-like episode at [facility]. She fell today after eating lunch and had some tremors and seizure-like activity. Her sugars are running adequately. She was brought into the hospital initially appeared not unwell, placed on BiPAP, then she started shaking, became sleepy and her oxygen sat dropped to 87-88%. Daughter was in the room. By report, there is no reported seizure activity witnessed by a medical professional in the Emergency Room. Dr. Edgar and Dacia Amaya had seen the patient in 07/2017 for some vaguely described bilateral shaking, but I believe there was preserved consciousness and based on a normal EEG and a poor history, they elected not to treat. She is on gabapentin, but presumably for other reasons. The patient ultimately declined in the Emergency Room becoming hypoxic and then was intubated. She is now intubated, sedated, last received morphine a little after midnight. Nursing indicates that about a [id number] before my coming into the room, she would open her eye to commands and shake her head appropriately yes or no. I find her to be more sedated; however, she did open her eyes later in the examination. PAST MEDICAL HISTORY: As above. 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 HOME MEDICATIONS: Pravastatin, Bumex, nitroglycerin, Toprol-XL, Ditropan, Advair, Aricept, Ellipta, gabapentin, Coumadin, Protonix, hydralazine, Colace, MiraLax, levothyroxine, Flonase, albuterol, Azopt ophthalmic suspension, Senokot, and oxygen. FAMILY HISTORY: Noncontributory, stopped smoking in 2004. No drug use, no alcohol use, currently living at [facility]. REVIEW OF SYSTEMS: Unobtainable. CT of the head, noncontrast, no acute hemorrhage, age-related changes, periventricular white matter abnormalities consistent with microangiopathy. I have reviewed the images, they are of somewhat limited quality, but grossly show no masses or hemorrhage. There appear to be bilateral basal ganglia calcifications. LABORATORY DATA: White count 7.86, H and H 12.4/38, platelet count 130. INR on admission 3.4, today 4.2. Initial blood gas: 7.39, 53, 55. Chemistry on admission: Sodium 138, potassium 5.3, BUN and creatinine 67/2.37. GFR is 16.7. BNP 14,557. Urinalysis negative. PHYSICAL EXAMINATION: GENERAL: The patient is intubated, not overbreathing the vent. VITAL SIGNS: Temperature 37.3, pulse 52-54, respiratory rate 16, blood pressure 110/95, O2 sat 91% on FiO2 of 80%. Initially, the patient was unarousable, but is sedated. NEUROLOGIC: Pupils are miotic, not reactive. This is very likely related to her glaucoma drops. There were cataracts bilaterally. I could not visualize the optic nerves. 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 Tone was decreased in all 4 extremities. The patient did not withdraw to painful stimulation. Reflexes were diffusely brisk. Toes were mute. Cerebellar sensory not tested. IMPRESSION: This is a patient with a history of possible seizures. She was reported to be shaking in the ER. There is no report of medical professional confirming seizure activity. Certainly with hypoxemia as well as hypercarbia, the patient could have tremor as well as myoclonus. Currently, I see no abnormality of exam nor any evidence of subclinical status epilepticus. PLAN: Provided the patient is awakening with a reduction of sedation and we see no evidence of seizure activity, we will electively order an EEG. It does not sound like the reason for the respiratory compromise was related to any seizure activity. As she wakes up, we will reexamine and see if there is any indication of a new event potentially hypoxic or ischemic. I would also confirm with pharmacy what the correct adjusted dose for GFR is for the patient's gabapentin. I suspect she is on a somewhat higher dose than her GFR would suggest. This may contribute to some encephalopathy as well. We will follow with you. MTDD
[2018-05-31] MEDS ORDERED: FIBERSOURCE HN 1000ML BAG PO SCH (10:30)
[2018-05-31] MEDS ORDERED: NURSING VERBAL MED ORDER ONE ×2 (10:30→19:30)
--- NOTE | 2018-05-31 10:34 | Procedure Note ---
Procedure Note Date of Service May 31, 2018. Procedure Note Critical Care Medicine Point of Care Bedside Ultrasound Procedure: Limited Bedside Renal Ultrasound Procedure Date: May 31, 2018 Indication: Acute kidney injury, history left-sided hydronephrosis, history right nephrectomy Attending: Henrietta Strong DO Organs Examined: kidneys, ureter, bladder. Right Kidney Kidney present: Absent Both Poles visualized: Not applicable Hydronephrosis: Not applicable Hepatorenal space fluid visualized: Not applicable Concern for Mass/Cyst: Not applicable Left Kidney Kidney present: Yes Both Poles visualized: Yes Hydronephrosis: Negative Splenorenal space fluid visualized: Negative Concern for Mass/Cyst: No Bladder Watson present: Yes Fluid in Bladder present: Negative Fluid in rectovesicle recesss: Negative Concern for Mass: No Ureteral Jets: Not applicable Impression: No evidence hydronephrosis in the left kidney Images obtained are saved for permanent record
[2018-05-31] MEDS: PANTOprazole INJ 40 MG in SYRINGE 0 ML IV SCH (10:36)
--- NOTE | 2018-05-31 10:48 | Critical Care Consultation ---
Critical Care Consultation Date of Consultation: May 31, 2018. Attending Physician: Salvatore Oviedo MD Reason for Consultation: Acute on chronic hypoxic respiratory failure Family History Heart disease Hypertension Lung disease Social History Smoking Status: Former Smoker Drug Use: none Marital Status: single Housing Status: other Occupation Status: disabled Allergies Coded Allergies: Levofloxacin (Verified Allergy, Intermediate, HIVES, 02/25/18) Quinolones (Verified Allergy, Intermediate, HIVES, 02/25/18) Ranitidine (Verified Allergy, Intermediate, HIVES, 02/25/18) Sulfamethoxazole (Verified Allergy, Intermediate, HIVES, 02/25/18) Trimethoprim (Verified Allergy, Intermediate, HIVES, 02/25/18) Clarithromycin (Verified Allergy, Mild, HIVES, CAN TAKE ZITHROMAX W/O PROB , 02/25/18) Amoxicillin (Verified Allergy, Unknown, HIVES, 02/25/18) Omeprazole (Verified Allergy, Unknown, HAS HAD PROTONIX, 02/25/18) Home Medications Scheduled Bisacodyl (Dulcolax), 1 SUPP [place] UD Brinzolamide Oph (Azopt Oph), 1 DROP OPB BID Bumetanide (Bumetanide), 1 MG PO 5XWK Bumetanide (Bumex), 2 MG PO 2XWK Docusate Sodium (Docusate Sodium), 1 CAP PO BID Donepezil HCl (Donepezil HCl), 10 MG PO HS Fluticasone Prop/Salmeterol (Advair Diskus 250/50 60 Dose), 1 PUFF INH BID Fluticasone Propionate (Nasal) (Flonase Allergy Relief), 1 SPRAY PAULIE BID Gabapentin (Neurontin), 600 MG PO BID Guaifenesin Ext Rel (Mucinex Ext Rel), 600 MG PO Q12 Hydralazine HCl (Hydralazine HCl), 10 MG PO BID Levothyroxine Sodium (Levothyroxine Sodium), 75 MCG PO DAILY Magnesium Hydroxide (Milk Of Magnesia), 30 ML PO PRN UD Metoprolol Succinate (Metoprolol Succinate ER), 25 MG PO DAILY Nitroglycerin (Nitrostat), 0.4 MG UT PRN Oxybutynin Chloride (Oxybutynin Chloride Er), 5 MG PO DAILY Pantoprazole (Pantoprazole Sodium), 40 MG PO DAILY Polyethylene Glycol 3350 (Miralax), 17 GM PO DAILY Pravastatin Sodium (Pravastatin Sodium), 80 MG PO QPM Sennosides (Senokot), 17.2 MG PO QAM Sodium Phosphate/Biphosphate (Fleet Enema), 1 EA [place] UD Umeclidinium [place] (Incruse Ellipta), 1 INHA PO DAILY Warfarin Sodium (Coumadin), 5 MG PO 5XWK Warfarin Sodium (Coumadin), 2.5 MG PO 2XWK Scheduled PRN Acetaminophen Tab (Tylenol), 650 MG PO Q6 PRN for Pain or Fever Albuterol Sulf (Proventil 0.083% 2.5MG/3ML), 2.5 MG NEB Q6 PRN for Shortness of Breath Albuterol Sulfate (Proventil Hfa), 2 PUFF INH Q6 PRN for Shortness of Breath Alum & Mag Hydrox-Simethicone (Mylanta Maximum Strength 400-400-40 mg/5Ml), 30 ML PO Q4 PRN for HEART BURN Menthol (Mouth-Throat) (Cepacol Sore Throat), 1 SONAM PO Q2H PRN for Cough Current Inpatient Medications Current Inpatient Medications Medications (Trade) Dose Ordered Sig/Mehdi Route Start Time Stop Time Status Last Admin Dose Admin Ondansetron HCl (Zofran Inj) 4 mg Q6H PRN IV 05/31/18 00:15 06/30/18 00:14 Morphine Sulfate (MoRPHine SULFATE INJ) 2 mg Q2H PRN IV 05/31/18 00:15 06/14/18 00:14 Miscellaneous Information (Icu Protocol For Hyperglycemia) 1 ea PRN PRN N/A 05/31/18 00:15 06/02/18 00:14 Cefepime HCl 2000 mg/Syringe 20 ml @ 5 mls/min Q24H IV 05/31/18 21:00 06/07/18 20:59 Doxycycline Hyclate 100 mg/ Dextrose 110 ml @ 50 mls/hr Q12H IV 05/31/18 02:00 06/07/18 01:59 05/31/18 02:52 50 MLS/HR Methylprednisolone Sodium Succinate 40 mg/Syringe 0.64 ml @ 1.5 mls/min Q8H IV 05/31/18 04:00 06/30/18 03:59 05/31/18 04:20 1.5 MLS/MIN Metoprolol Tartrate (Lopressor Iv) 2.5 mg Q6 IV. 05/31/18 06:00 06/30/18 05:59 Hydralazine HCl (HydrALAZINE INJ) 5 mg Q6 PRN IV. 05/31/18 00:15 06/30/18 00:14 Levothyroxine Sodium 35 mcg/ Syringe 1.75 ml @ 2 mls/min DAILY@09 IV 05/31/18 09:00 06/30/18 08:59 05/31/18 09:10 2 MLS/MIN Lorazepam (Ativan Inj) 1 mg Q2H PRN IV 05/31/18 00:30 06/30/18 00:29 Albuterol (Ventolin Hfa Inhaler) 2 puffs Q6 PRN INH 05/31/18 00:45 06/30/18 00:44 Cefepime HCl (Consult) 1 ea UD PRN N/A 05/31/18 01:45 06/30/18 01:44 Propofol (Diprivan Iv Emulsion 100ml Vial) 1 dose UD PRN IV 05/31/18 02:30 06/03/18 02:29 Insulin Aspart (novoLOG ASPART) SLIDING SCALE If C... ACHS SC 05/31/18 11:00 06/30/18 10:59 UNV Glucose (Glucose 40% Gel) 15-30 GRAMS 15 GRAMS... UD PRN PO 05/31/18 09:15 06/30/18 09:14 UNV Glucose (Glucose Chew Tab) 4-8 Tablets 4 Tabl... UD PRN PO 05/31/18 09:15 06/30/18 09:14 UNV Dextrose (Dextrose 50% 50ML Syringe) 25-50ML 25ML FOR ... UD PRN IV 05/31/18 09:15 06/30/18 09:14 UNV Glucagon (Glucagon Inj) 1 mg UD PRN SQ 05/31/18 09:15 06/30/18 09:14 UNV Carbohydrates (Carbohydrates For Hypoglycemia) 15-30 GRAMS 15 grams if BSG 54-69... 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 Reviewed discharge summary dated February 27, 2018: History of 2.5 cm right ovarian lesion, resolution of hydroureter Reviewed CT scan of abdomen pelvis dated May 23, 2018: Liver nodularity suggesting cirrhosis with trace perihepatic ascites, cholelithiasis and mild pericholecystic edema, right pleural effusion, prior laminectomy, noted mild perivesicular stranding with air within the nondependent bladder lumen Physical Exam Date Time Temp Pulse Resp B/P (MAP) Pulse Ox O2 Delivery O2 Flow Rate FiO2 05/31/18 08:00 Mechanical Ventilator 85 05/31/18 08:00 85 05/31/18 07:23 85 05/31/18 06:00 52 16 91 05/31/18 06:00 37.3 52 16 110/95 (100) 91 Mechanical Ventilator 80 05/31/18 06:00 54 05/31/18 05:08 80 05/31/18 05:00 63 16 116/53 (79) 90 05/31/18 05:00 63 16 116/53 (74) 90 Mechanical Ventilator 80 05/31/18 04:00 80 05/31/18 04:00 53 16 123/51 (84) 95 05/31/18 04:00 37.3 53 16 123/51 (75) 95 Mechanical Ventilator 80 05/31/18 03:00 37.1 57 16 110/50 (70) 97 Humidified Oxygen 80 05/31/18 03:00 57 16 110/50 (92) 97 05/31/18 02:08 80 05/31/18 02:00 37.3 59 16 107/48 (67) 92 Mechanical Ventilator 80 05/31/18 02:00 59 16 92 05/31/18 02:00 Mechanical Ventilator 80 05/31/18 01:31 37.3 76 16 181/74 90 Mechanical Ventilator 80 05/31/18 01:24 80 05/31/18 01:00 80 18 146/78 93 05/31/18 00:20 84 16 152/85 93 7/7/18 00:15 75 16 147/68 93 7/7/18 00:10 89 16 161/79 93 7/7/18 00:05 83 16 144/65 92 7/7/18 00:00 81 16 146/63 92 7/6/18 23:55 96 16 158/93 92 7/6/18 23:50 88 15 141/76 92 7/6/18 23:50 93 18 141/76 92 Mechanical Ventilator 60 7/6/18 23:40 97 16 155/83 93 7/6/18 23:40 60 7/6/18 23:37 88 7/6/18 23:35 88 16 167/87 96 7/6/18 23:31 165/107 7/6/18 23:31 85 18 165/107 92 Mechanical Ventilator 7/6/18 23:30 65 22 90 7/6/18 23:25 72 13 176/66 90 BiPAP 100 7/6/18 23:10 74 16 86 BiPAP 85 7/6/18 23:08 139/57 7/6/18 23:01 124/57 7/6/18 22:55 57 15 88 7/6/18 22:50 131/51 7/6/18 22:40 60 14 140/56 88 7/6/18 22:31 136/57 7/6/18 22:25 59 15 91 7/6/18 22:20 131/55 7/6/18 22:16 57 14 91 BiPAP 85 7/6/18 22:11 129/55 7/6/18 22:01 58 14 90 7/6/18 22:00 147/54 7/6/18 21:51 140/76 7/6/18 21:46 69 26 91 7/6/18 21:41 153/56 7/6/18 21:31 60 15 126/52 89 7/6/18 21:21 132/53 7/6/18 21:16 58 23 90 7/6/18 21:10 143/55 7/6/18 21:07 153/69 7/6/18 21:01 60 15 89 7/6/18 20:56 58 16 90 BiPAP 85 7/6/18 20:41 59 19 92 BiPAP 85 7/6/18 20:34 138/50 7/6/18 20:26 54 15 90 7/6/18 20:25 134/53 BiPAP 70 05/30/18 20:11 64 19 90 05/30/18 19:56 61 23 91 05/30/18 19:49 62 95 80 05/30/18 19:48 59 18 95 BiPAP/CPAP 80 05/30/18 19:41 59 20 88 BiPAP 70 05/30/18 19:31 159/71 05/30/18 19:29 66 05/30/18 19:26 68 22 94 05/30/18 19:25 92 Non-Rebreather 15.0 05/30/18 19:25 92 Non-Rebreather 15.0 05/30/18 19:17 151/57 05/30/18 19:15 36.8 73 24 151/57 85 Nasal Cannula 3.0 Laboratory Results Last 24 Hours Test 05/30/18 19:15 05/30/18 19:47 05/30/18 21:45 05/31/18 00:26 White Blood Count 7.86 K/uL Red Blood Count 3.81 M/uL Hemoglobin 12.4 g/dL Hematocrit 38.8 % Mean Corpuscular Volume 101.8 fL Mean Corpuscular Hemoglobin 32.5 pg Mean Corpuscular Hemoglobin Concent 32.4 g/dl Platelet Count 130 K/uL Mean Platelet Volume 13.9 fL Neutrophils (%) (Auto) 73.4 % Lymphocytes (%) (Auto) 13.6 % Monocytes (%) (Auto) 12.2 % Eosinophils (%) (Auto) 0.1 % Basophils (%) (Auto) 0.3 % Neutrophils # (Auto) 5.77 K/uL Lymphocytes # (Auto) 1.07 K/uL Monocytes # (Auto) 0.96 K/uL Eosinophils # (Auto) 0.01 K/uL Basophils # (Auto) 0.02 K/uL RDW Standard Deviation 59.1 fL RDW Coefficient of Variation 16.0 % Immature Granulocyte % (Auto) 0.4 % Immature Granulocyte # (Auto) 0.03 K/uL Platelet Estimate DECREASED Red Blood Cell Morphology Unremarkable Prothrombin Time 35.1 SECONDS Prothromb Time International Ratio 3.4 Activated Partial Thromboplast Time 45.6 SECONDS Partial Thromboplastin Ratio 1.8 Sodium Level 138 mmol/L Potassium Level 5.3 mmol/L Chloride Level 99 mmol/L Carbon Dioxide Level 33 mmol/L Anion Gap 5.0 mmol/L Blood Urea Nitrogen 67 mg/dl Creatinine 2.37 mg/dl Est Creatinine Clear Calc Drug Dose 16.7 ml/min Estimated GFR () 22.8 Estimated GFR (Non- 19.7 BUN/Creatinine Ratio 28.3 Random Glucose 114 mg/dl Calcium Level 9.5 mg/dl Phosphorus Level 4.2 mg/dl Magnesium Level 2.8 mg/dl Total Bilirubin 0.7 mg/dl Aspartate Amino Transf (AST/SGOT) 26 U/L Alanine Aminotransferase (ALT/SGPT) 24 U/L Alkaline Phosphatase 84 U/L Troponin I 0.039 ng/ml Pro-B-Type Natriuretic Peptide 18481 pg/ml Total Protein 7.5 gm/dl Albumin 3.2 gm/dl Globulin 4.3 gm/dl Albumin/Globulin Ratio 0.8 Bedside Lactic Acid Venous 1.89 mmol/L Venous Blood pH 7.39 Venous Blood Partial Pressure CO2 53 mmHg Venous Blood Partial Pressure O2 55 mmHg Venous Blood HCO3 31 mmol/L Venous Blood Oxygen Saturation 87.4 % Venous Blood Base Excess 4.7 mEq/L Arterial Blood pH 7.46 Arterial Blood Partial Pressure CO2 46 mmHg Arterial Blood Partial Pressure O2 59 mm/Hg Arterial Blood HCO3 32 mmol/L Arterial Blood Oxygen Saturation 91.3 % Arterial Blood Base Excess 6.7 mEq/L Arterial Blood Gas Delivery 60% Aditya Test POS Test 05/31/18 04:59 05/31/18 06:44 Prothrombin Time 42.9 SECONDS Prothromb Time International Ratio 4.2 Bedside Glucose 184 mg/dl Diagnostic Results Reviewed coronary angiogram dated December 2017 Reviewed MATTIE results demonstrating large ASD with free left to right shunt Reviewed transthoracic echocardiogram dated Reviewed pulmonary consultation dated August 19, 2017 Reviewed cardiology follow-up note, loop recorder implantation August 16, 2017 for nonsustained ventricular tachycardia: 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 -Noted Mucor species of expectorated sputum on August 13, 2015, E. coli urinary tract in section, February 21, 2015: Resistant to Unasyn, ampicillin, Zosyn , Bactrim and again April 04, 2012: Pansensitive, history of MRSA bacteremia approximately November - February 2012 Reviewed EKG dated May 30, 2018: Normal sinus rhythm right bundle branch block left anterior fascicular block: Bivesicular block, QTC 469, abnormal EKG Assessment & Plan Reason Critically Ill: 72-year-old female with multiple significant comorbidities who presented status post possible seizure activity with a history of seizures and subsequently underwent acute on chronic hypoxic respiratory failure requiring intubation. PLAN: Neuro: History of seizures Possible seizure activity -No record of seizure medication noted on medication reconciliation -Reviewed medication list updated September 04, 2017, at that time the patient was on gabapentin as well as Ultram -Consideration given to gabapentin intoxication in the setting of acute kidney injury -Reviewed neurology consultation Analgesia sedation: -On propofol, RASS -1 arouses to voice -Fentanyl as needed Resp: History of chronic hypoxic respiratory failure on home oxygen History of obstructive sleep apnea, BiPAP dependent at night Chronic obstructive pulmonary disease -Acute on chronic hypoxic respiratory failure -Patient likely also chronically hypercarbic, bicarb elevated at 33 -Full ventilatory support -Adjusted ventilator settings to AC tidal volume 400, rate 12, PEEP 10, FiO2 85%, -This decreased plateau pressures from 28-25, auto PEEP of the patient was 8 -Continue nebulizers and steroids -Considerations given to volume overload, COPD exacerbation, pneumonia, aspiration CV: Coronary artery disease History of bradycardia History of atrial septal defect status post repair History hypertension History A. fib status post ablation Hyperlipidemia History pacemaker status post explantation 2000 due to MRSA infection History tachybradycardia syndrome History right-sided congestive heart failure History severe pulmonary hypertension History status post mitral valve repair History congestive heart failure Elevated BNP -Suspect volume overload and acute on chronic congestive heart failure -Given the patient's single solitary kidney and acute kidney injury anticipate this is going to be difficult to have adequate diuresis -Trend troponin, serial BNP, echocardiogram Fluids/Renal: History unilateral nephrectomy Chronic kidney disease stage IV History of hydronephrosis on the left side, solitary kidney Acute kidney injury: Baseline creatinine appears to be 1.5-1.7 Hyperkalemia Mild hypomagnesemia - Bumex 1 mg -Patient's blood pressure is adequate should have adequate perfusion to kidney -Limited renal ultrasound to eval for hydronephrosis completed at bedside: Bladder decompressed, no evidence of hydronephrosis ID: History 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 coli bacteriuria recently as 2013 -Blood cultures pending -Urine culture pending, UA unremarkable -Agree with cefepime, doxycycline, -MRSA nasal swab negative, doubt MRSA pneumonia -We will recheck lactic acid: Doubt sepsis at this time GI/Nutrition: GERD -On Protonix GI prophylaxis -Starting tube feed formulation: Fiber source goal 40 mL's continuous Heme: Anemia Systemic anticoagulation -Elevated INR 4.2: Likely secondary to antibiotic administration Endocrine: ICU hyperglycemia protocol -Continue steroids: COPD exacerbation Hypothyroidism -Continue levothyroxine IV Vascular access: Peripheral IVs Code Status: Full: I have reviewed the ED and admission notes documenting desire for modified CODE STATUS I attempted to contact the patient's daughter at the number listed in the record [phone] and the phone call was unable to be completed. I have personally spent 110 minutes of critical care time in the direct management of this patient. This is a life/limb threatening event. This includes time spent evaluating patient, direct bedside care, chart review, placing orders, interpretation of diagnostic studies, discussion with consultants, patient, and/or family members regarding treatment decisions, as well as other required patient management activities. This time is exclusive of all separately billable procedures, and teaching time and separate from and in addition to any other critical care service time.
[2018-05-31] MEDS ORDERED: INSULIN ASPART 100 UNITS/ML 3 ML PEN SC SCH (11:00)
[2018-05-31] MEDS: PROPOFOL IV EMULSION 10 MG/ML 100 ML VIAL IV PRN (11:06)
[2018-05-31] MEDS: INSULIN ASPART 100 UNITS/ML 3 ML PEN SC SCH ×3 (12:00→23:55)
--- NOTE | 2018-05-31 12:00 | ECHOCARDIOGRAM REPORT ---
*NOTICE TO RECEIVING DEMOCRAT AGENCY This information is strictly Confidential and protected under [place] law. [place] law prohibits you from making any further disclosure of this information unless further disclosure is expressly permitted by the written consent of the person to whom it pertains or is authorized by law. A general authorization for the release of medical or other information is not sufficient for this purpose. Hospital accepts no responsibility if the information is made available to any other person, INCLUDING THE PATIENT. Interpretation Summary * Compared to prior study, there is no significant change. * -- Conclusions -- * The left ventricle is normal in size. * There is mild concentric left ventricular hypertrophy. * Flattened septum is consistent with RV pressure/volume overload. * There is borderline global hypokinesis of the left ventricle. * Ejection Fraction = 50-55%. * The right atrium is severely dilated. * The right ventricle is severely dilated. * There is mild to moderate mitral regurgitation. * There is severe tricuspid regurgitation. * Right ventricular systolic pressure is elevated at 50-60mmHg. Procedure Details * A complete two-dimensional transthoracic echocardiogram was performed (2D, M-mode, Doppler and color flow Doppler). Left Ventricle * The left ventricle is normal in size. * There is mild concentric left ventricular hypertrophy. * Ejection Fraction = 50-55%. * Flattened septum is consistent with RV pressure/volume overload. * There is borderline global hypokinesis of the left ventricle. Right Ventricle * The right ventricle is severely dilated. * The right ventricular systolic function is moderately reduced. Atria * The left atrial size is normal. * The right atrium is severely dilated. * No ASD detected; PFO is not assessed. Mitral Valve * There is no mitral valve stenosis. * There is mild to moderate mitral regurgitation. Tricuspid Valve * The tricuspid valve is not well visualized, but is grossly normal. * There is no tricuspid stenosis. * There is severe tricuspid regurgitation. * Right ventricular systolic pressure is elevated at 50-60mmHg. Aortic Valve * The aortic valve is trileaflet. * No hemodynamically significant valvular aortic stenosis. * No aortic regurgitation is present. Pulmonic Valve * The pulmonic valve is not well visualized. Great Vessels * The aortic root is normal size. Pericardium/Pleural * There is a trivial posterior pericardial effusion. Great Vessels * Dilated inferior vena cava with reduced collapsability with sniff indicates an elevated right atrial pressure of 15 mmHg Left Ventricular Diastolic Function * Grade I diastolic dysfunction, (abnormal relaxation pattern). MMode 2D Measurements and Calculations IVSd 1.0 cm IVSs 1.5 cm LVIDd 4.3 cm LVIDs 3.3 cm LVPWd 1.7 cm LVPWs 1.6 cm IVS/LVPW 0.59 FS 23.3 % EDV(Teich) 83.3 ml ESV(Teich) 44.3 ml EF(Teich) 46.9 % EDV(cubed) 79.8 ml ESV(cubed) 36.1 ml EF(cubed) 54.8 % % IVS thick 44.3 % % LVPW thick -5.75 % LV mass(C)d 224.6 grams LV mass(C)dI 145.9 grams/m\S\2 LV mass(C)s 187.6 grams LV mass(C)sI 121.9 grams/m\S\2 SV(Teich) 39.1 ml SI(Teich) 25.4 ml/m\S\2 SV(cubed) 43.8 ml SI(cubed) 28.4 ml/m\S\2 LVAd ap4 18.5 cm\S\2 LVLd ap4 6.5 cm EDV(MOD-sp4) 46.1 ml EDV(sp4-el) 44.5 ml LVAs ap4 12.5 cm\S\2 LVLs ap4 5.8 cm ESV(MOD-sp4) 24.3 ml ESV(sp4-el) 23.0 ml EF(MOD-sp4) 47.2 % EF(sp4-el) 48.3 % SV(MOD-sp4) 21.7 ml SI(MOD-sp4) 14.1 ml/m\S\2 SV(sp4-el) 21.5 ml SI(sp4-el) 14.0 ml/m\S\2 Doppler Measurements and Calculations MV E max julio 53.4 cm/sec MV A max julio 101.4 cm/sec MV E/A 0.53 MV dec time 0.39 sec Ao V2 max 140.0 cm/sec Ao max PG 7.8 mmHg Ao max PG (full) 4.9 mmHg LV V1 max PG 3.0 mmHg LV V1 max 86.3 cm/sec TR max julio 336.6 cm/sec
--- NOTE | 2018-05-31 15:23 | DIAGNOSTIC IMAGING REPORT ---
KUB CLINICAL HISTORY: Enteric tube placement. FINDINGS: 2 AP, portable, supine abdominal radiographs are correlated with abdominal CT dated 05/23/2018. An enteric tube has been placed. The tip projects over the mid stomach. There is no radiographic evidence of bowel obstruction. No evidence of intraperitoneal free air is seen on these supine images. There are no abnormal abdominal calcifications. The skeletal structures are osteopenic. Fusion change is noted in the lower lumbar region. Surgical clips project over the right groin. The heart is enlarged. Epicardial pacing leads are noted. IMPRESSION: 1. An enteric tube has been placed. The tip projects over the mid stomach. 2. There is no radiographic evidence of bowel obstruction. Electronically signed by: Roby Hauser M.D. 05/31/2018 3:22 PM Dictated Date/Time: 05/31/2018 3:20 PM
[2018-05-31] MEDS ORDERED: WARFARIN SOD 5 MG TAB PO SCH (16:00)
[2018-05-31] MEDS ORDERED: CEFEPIME IV 2,000 MG in SYRINGE 7.5 ML IV SCH (21:00)
[2018-06-01] VITALS (37 sets, daily range): BP systolic 104–152; BP diastolic 45–79; PULSE 49–73; TEMP 36.5–36.8; O2SAT 90–95
[2018-06-01] MEDS: PROPOFOL IV EMULSION 10 MG/ML 100 ML VIAL IV PRN ×2 (00:28→10:02)
[2018-06-01] MEDS ORDERED: BUMETANIDE IV 1 MG in SYRINGE 0 ML IV ONE (01:30)
[2018-06-01] MEDS: DOXYCYCLINE IV 100 MG in DEXTROSE 5% 100ML 100 ML IV SCH ×2 (02:15→13:19)
[2018-06-01] MEDS: METHYLPREDNISOLONE IV 40 MG in SYRINGE 0 ML IV SCH ×3 (04:34→21:18)
[2018-06-01 05:05] LABS: MEAN CORPUSCULAR HGB CONC 32.8 g/dl (32-36)
[2018-06-01 05:08] LABS: HEMATOCRIT 36.3 % (37-47); HEMOGLOBIN 11.9 g/dL (12.0-16.0); MEAN CELL VOLUME 98.4 fL (80-100); MEAN CORPUSCULAR HEMOGLOBIN 32.2 pg (25-34); RED CELL DISTRIBUTION WIDTH CV 15.4 % (11.5-14.5); RED CELL DISTRIBUTION WIDTH SD 55.3 fL (36.4-46.3); WHITE BLOOD COUNT 10.89 K/uL (4.8-10.8)
[2018-06-01 05:28] LABS: CREATININE 2.18 mg/dl (0.60-1.20); POTASSIUM 4.3 mmol/L (3.5-5.1)
[2018-06-01 05:43] LABS: MEAN PLATELET VOLUME 13.6 fL (7.4-10.4); PLATELET COUNT 145 K/uL (130-400)
[2018-06-01 05:44] LABS: BASO % 0.1 %; BASO ABS # 0.01 K/uL (0-0.2); IG# 0.04 K/uL (0.00-0.02); LYMPH % 2.9 %; LYMPH ABS # 0.32 K/uL (1.2-3.4); MONO % 2.7 %; MONO ABS # 0.29 K/uL (0.11-0.59); NEUT % 93.9 %; NEUT ABS # 10.23 K/uL (1.4-6.5)
[2018-06-01 05:49] LABS: INR 3.7 (0.9-1.1)
[2018-06-01] MEDS: METOPROLOL TARTRATE 1 MG/ML VIAL IV. SCH ×3 (06:00→18:00)
[2018-06-01] MEDS: INSULIN ASPART 100 UNITS/ML 3 ML PEN SC SCH ×3 (06:00→18:00)
--- NOTE | 2018-06-01 07:01 | DIAGNOSTIC IMAGING REPORT ---
CHEST ONE VIEW PORTABLE CLINICAL HISTORY: Respiratory failure COMPARISON STUDY: 05/30/2018 FINDINGS: The endotracheal tube is positioned within 1 cm above the aleyda. There is a nasogastric tube within the stomach. The heart is enlarged. There is dilatation of the pulmonary artery. There is radiographic evidence of congestive failure. Pleural effusions are suspected.[ There are progressive right perihilar airspace opacities IMPRESSION: 1. Endotracheal tube within 1 cm of the aleyda 2. Cardiomegaly and radiographic evidence of pulmonary hypertension 3. Congestive failure with bilateral pleural effusions 4. Progressive right perihilar airspace opacities Electronically signed by: Raman Padilla M.D. 06/01/2018 7:00 AM Dictated Date/Time: 06/01/2018 6:57 AM
--- NOTE | 2018-06-01 09:05 | Critical Care Progress Note ---
Critical Care Progress Note Date of Service Jun 01, 2018. ICU Day ICU Day Number: [address] Strong Subjective No overnight events. Patient tolerated weaning of FiO2, per respiratory no secretions being suctioned. Per nursing patient following commands not expressing pain Objective General: Alert. nontoxic. Skin: Warm, dry, Head: Atraumatic Ears, nose, mouth and throat: Endotracheal tube present Cardiovascular: Normal peripheral perfusion Respiratory: no respiratory distress Gastrointestinal: Non distended Musculoskeletal: No deformity Assessment & Plan Reason Critically Ill: 72-year-old female with multiple significant comorbidities who presented status post possible seizure activity with a history of seizures and subsequently underwent acute on chronic hypoxic respiratory failure requiring intubation. PLAN: Neuro: History of seizures Possible seizure activity -No record of seizure medication noted on medication reconciliation -Reviewed medication list updated September 04, 2017, at that time the patient was on gabapentin as well as Ultram -Consideration given to gabapentin intoxication in the setting of acute kidney injury -Reviewed neurology consultation Analgesia sedation: -On propofol, RASS -1 arouses to voice -Fentanyl as needed Resp: History of chronic hypoxic respiratory failure on home oxygen History of obstructive sleep apnea, BiPAP dependent at night Chronic obstructive pulmonary disease -Acute on chronic hypoxic respiratory failure -Patient likely also chronically hypercarbic, bicarb elevated at 33 -Full ventilatory support -Adjusted ventilator settings to AC tidal volume 400, rate 12, PEEP 10, FiO2 50%, -Continue nebulizers and steroids -Considerations given to volume overload, COPD exacerbation, pneumonia, aspiration -Completed limited thoracic ultrasound: Bilateral pleural effusions right greater than left, AB type lung profile consistent with atelectasis and interstitial edema -Patient is satting 91% on 50% FiO2 which I suspect is close to the patient's baseline oxygen saturation with mild increase in oxygen requirements, the RSBI is 50 she has minute ventilation of 4.5 L a minute with minimal secretions CV: Coronary artery disease History of bradycardia History of atrial septal defect status post repair History hypertension History A. fib status post ablation Hyperlipidemia History pacemaker status post explantation 2000 due to MRSA infection History tachybradycardia syndrome History right-sided congestive heart failure History severe pulmonary hypertension History status post mitral valve repair History congestive heart failure Elevated BNP -Suspect volume overload and acute on chronic congestive heart failure -Given the patient's single solitary kidney and acute kidney injury anticipate this is going to be difficult to have adequate diuresis -Trend troponin, serial BNP, -Echocardiogram: Reviewed Fluids/Renal: History unilateral nephrectomy Chronic kidney disease stage IV History of hydronephrosis on the left side, solitary kidney Acute kidney injury: Baseline creatinine appears to be 1.5-1.7 Hyperkalemia - Bumex 1 mg -Patient's blood pressure is adequate should have adequate perfusion to kidney -Limited renal ultrasound to eval for hydronephrosis completed at bedside: Bladder decompressed, no evidence of hydronephrosis: Completed May 31, 2018 ID: History 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 coli bacteriuria recently as 2012 -Blood cultures pending -Urine culture pending, UA unremarkable -Agree with cefepime, doxycycline, -MRSA nasal swab negative, doubt MRSA pneumonia -We will recheck lactic acid: Doubt sepsis at this time GI/Nutrition: GERD -On Protonix GI prophylaxis -Starting tube feed formulation: Fiber source goal 40 mL's continuous Heme: Anemia Systemic anticoagulation -Elevated INR 4.2: Likely secondary to antibiotic administration Endocrine: ICU hyperglycemia protocol -Continue steroids: COPD exacerbation Hypothyroidism -Continue levothyroxine IV Vascular access: Peripheral IVs Code Status: Full: I have reviewed the ED and admission notes documenting desire for modified CODE STATUS Had a discussion with the patient's daughter regarding goals of care and power of telecom specialist. Patient's daughter Damaris Gamez reports that she delivered a living well to [facility] approximately 1 year ago. Upon review of the patient's chart there is an advanced directive from July 04, 2016: Patient does not want cardiac resuscitation, mechanical respiration, feeding tube or artificial administration of food or water, blood product, surgery or invasive diagnostic testing, dialysis, antibiotics should the patient be in a end-stage terminal condition. On page to scanned the patient indicates she does not want to designate another person as her surrogate to make medical treatment decisions for me if she is found to be incompetent and in a terminal condition. This was signed on April 04, 2001, and witnessed by 2 individuals. The scanned page 3 is that of a DURABLE POWER OF HEAD OF LOSS PREVENTION which the patient designates Joe Saravia who on page 5 item #21 can arrange for an consent to or withhold medical, therapeutic, and surgical procedures including the administration of drugs, section 22 admission into facilities. The DURABLE POWER OF HEAD OF LOSS PREVENTION is notarized and was signed April 04, 2001. The same advanced directive appears to be scanned on June 08, 2016 as well as April 13, 2016, February 03, 2016 At this time I feel the patient would be a candidate for possible extubation. I am hoping to have a family discussion to determine whether this will be a terminal extubation or if the patient would want reintubation should she fail. I have expressed my concern that the patient is high risk for failing extubation secondary to severe end-stage pulmonary hypertension, end-stage oxygen dependent COPD, complicated by BiPAP dependent obstructive sleep apnea. I have personally spent 80 minutes of critical care time in the direct management of this patient. This is a life/limb threatening event. This includes time spent evaluating patient, direct bedside care, chart review, placing orders, interpretation of diagnostic studies, discussion with consultants, patient, and/or family members regarding treatment decisions, as well as other required patient management activities. This time is exclusive of all separately billable procedures, and teaching time and separate from and in addition to any other critical care service time. Consults & Procedures Consultants: Neurology Procedures: Intubation 05/30/2018 Data Medications: Current Inpatient Medications Medications (Trade) Dose Ordered Sig/Mehdi Route Start Time Stop Time Status Last Admin Dose Admin Ondansetron HCl (Zofran Inj) 4 mg Q6H PRN IV 05/31/18 00:15 06/30/18 00:14 Miscellaneous Information (Icu Protocol For Hyperglycemia) 1 ea PRN PRN N/A 05/31/18 00:15 06/02/18 00:14 Cefepime HCl 2000 mg/Syringe 20 ml @ 5 mls/min Q24H IV 05/31/18 21:00 06/07/18 20:59 05/31/18 20:49 5 MLS/MIN Doxycycline Hyclate 100 mg/ Dextrose 110 ml @ 50 mls/hr Q12H IV 05/31/18 02:00 06/07/18 01:59 05/31/18 14:03 50 MLS/HR Methylprednisolone Sodium Succinate 40 mg/Syringe 0.64 ml @ 1.5 mls/min Q8H IV 05/31/18 04:00 06/30/18 03:59 05/31/18 19:54 1.5 MLS/MIN Metoprolol Tartrate (Lopressor Iv) 2.5 mg Q6 IV. 05/31/18 06:00 06/30/18 05:59 Levothyroxine Sodium 35 mcg/ Syringe 1.75 ml @ 2 mls/min DAILY@09 IV 05/31/18 09:00 06/30/18 08:59 05/31/18 09:10 2 MLS/MIN Albuterol (Ventolin Hfa Inhaler) 2 puffs Q6 PRN INH 05/31/18 00:45 06/30/18 00:44 Cefepime HCl (Consult) 1 ea UD PRN N/A 05/31/18 01:45 06/30/18 01:44 Propofol (Diprivan Iv Emulsion 100ml Vial) 1 dose UD PRN IV 05/31/18 02:30 06/03/18 02:29 06/01/18 00:28 1 DOSE Glucose (Glucose 40% Gel) 15-30 GRAMS 15 GRAMS... UD PRN PO 05/31/18 09:15 06/30/18 09:14 Glucose (Glucose Chew Tab) 4-8 Tablets 4 Tabl... UD PRN PO 05/31/18 09:15 06/30/18 09:14 Dextrose (Dextrose 50% 50ML Syringe) 25-50ML 25ML FOR ... UD PRN IV 05/31/18 09:15 06/30/18 09:14 Glucagon (Glucagon Inj) 1 mg UD PRN SQ 05/31/18 09:15 06/30/18 09:14 Carbohydrates (Carbohydrates For Hypoglycemia) 15-30 GRAMS 15 grams if BSG 54-69... UD PRN PO 05/31/18 09:15 06/30/18 09:14 Pantoprazole Sodium 40 mg/ Syringe 10 ml @ 5 mls/min DAILY@11 IV 05/31/18 11:00 06/30/18 10:59 05/31/18 10:36 5 MLS/MIN Fentanyl Citrate (Fentanyl Inj) 50 mcg Q2H PRN IV 05/31/18 10:15 06/14/18 10:14 Enteral Nutritional Formula (Fibersource Hn) 1,000 ml UD PO 05/31/18 10:30 06/30/18 10:29 05/31/18 19:59 1,000 ML Insulin Aspart (novoLOG ASPART) SLIDING SCALE If C... Q6 SC 05/31/18 12:00 06/30/18 10:59 Bumetanide 1 mg/ Syringe 4 ml @ 4 mls/min NOW ONCE IV 06/01/18 01:30 06/01/18 01:31 Vital Signs: Date Time Temp Pulse Resp B/P (MAP) Pulse Ox O2 Delivery O2 Flow Rate FiO2 06/01/18 00:01 36.7 52 13 108/47 (67) 91 Mechanical Ventilator 50 05/31/18 23:46 55 05/31/18 23:00 54 13 135/51 (79) 92 Mechanical Ventilator 50 05/31/18 22:30 50 05/31/18 22:00 36.6 49 13 134/68 (90) 94 Mechanical Ventilator 50 05/31/18 21:00 49 12 119/50 (73) 92 Mechanical Ventilator 50 05/31/18 20:00 50 05/31/18 20:00 37.0 61 13 90 Mechanical Ventilator 50 05/31/18 20:00 Mechanical Ventilator 50 05/31/18 19:00 50 05/31/18 19:00 47 12 132/56 (81) 93 Mechanical Ventilator 50 05/31/18 18:01 47 12 116/51 (72) 94 05/31/18 18:00 48 12 94 Mechanical Ventilator 60 05/31/18 17:45 49 127/53 05/31/18 17:01 50 12 127/53 (77) 95 05/31/18 17:00 48 12 94 05/31/18 16:55 60 05/31/18 16:00 36.7 48 12 129/55 (79) 93 Mechanical Ventilator 60 05/31/18 16:00 60 05/31/18 15:01 48 12 113/52 (72) 93 05/31/18 15:00 48 12 93 05/31/18 14:01 63 14 146/63 (90) 95 05/31/18 14:00 60 05/31/18 14:00 53 10 93 Mechanical Ventilator 60 05/31/18 13:01 51 12 130/54 (79) 92 05/31/18 13:00 52 12 93 05/31/18 12:00 70 05/31/18 12:00 36.9 49 12 125/49 (74) 93 Mechanical Ventilator 85 05/31/18 12:00 50 05/31/18 11:01 59 16 181/76 (111) 95 05/31/18 11:00 63 17 96 05/31/18 10:54 70 05/31/18 10:52 85 05/31/18 10:01 54 16 108/54 (72) 94 Mechanical Ventilator 85 05/31/18 10:00 51 16 94 05/31/18 09:00 51 16 106/46 (66) 89 05/31/18 08:00 Mechanical Ventilator 85 05/31/18 08:00 85 05/31/18 08:00 36.7 52 16 112/51 (71) 91 Mechanical Ventilator 85 05/31/18 07:23 85 05/31/18 07:02 56 13 144/98 (113) 90 05/31/18 07:00 58 90 05/31/18 06:00 52 16 91 05/31/18 06:00 37.3 52 16 110/95 (100) 91 Mechanical Ventilator 80 05/31/18 06:00 54 05/31/18 05:08 80 05/31/18 05:00 63 16 116/53 (79) 90 05/31/18 05:00 63 16 116/53 (74) 90 Mechanical Ventilator 80 05/31/18 04:00 80 05/31/18 04:00 53 16 123/51 (84) 95 05/31/18 04:00 37.3 53 16 123/51 (75) 95 Mechanical Ventilator 80 05/31/18 03:00 37.1 57 16 110/50 (70) 97 Humidified Oxygen 80 05/31/18 03:00 57 16 110/50 (92) 97 05/31/18 02:08 80 05/31/18 02:00 37.3 59 16 107/48 (67) 92 Mechanical Ventilator 80 05/31/18 02:00 59 16 92 05/31/18 02:00 Mechanical Ventilator 80 05/31/18 01:31 37.3 76 16 181/74 90 Mechanical Ventilator 80 Laboratory Results: Last 24 Hours Test 05/31/18 04:59 05/31/18 06:44 05/31/18 11:07 05/31/18 11:54 Prothrombin Time 42.9 SECONDS Prothromb Time International Ratio 4.2 Bedside Glucose 184 mg/dl 150 mg/dl Lactic Acid Level 2.9 mmol/L Troponin I 0.021 ng/ml Test 05/31/18 18:26 05/31/18 23:51 Bedside Glucose 149 mg/dl 140 mg/dl
--- NOTE | 2018-06-01 09:08 | Procedure Note ---
Procedure Note Date of Service Jun 01, 2018. Procedure Note Critical Care Medicine Point of Care Bedside Ultrasound Procedure: Limited Bedside Lung Ultrasound Procedure Date: June 01, 2018 Indication: Pleural effusion on chest x-ray, acute on chronic hypoxic respiratory failure Attending: Henrietta Strong DO Organs Examined: Lung BLUE point (upper), BLUE point (lower), Phrenic Point (axillary), PLAPS point ( posterior) A lines visualized: Present, Hemithorax: Bilaterally B lines visualized: Present, Hemithorax: Bilaterally Lung Sliding: Present, Hemithorax: Bilateral Tissue-like Sign: Present, Hemithorax: Bilateral Shred Sign: Absent, Hemithorax: Bilateral Quad Sign: Present, Hemithorax: Right hemithorax Sinusoid Sign: Present, Hemithorax: Right hemithorax Type of effusions: Simple, Hemithorax: Bilateral Interpleural distance: Right-sided interpleural distance 1 cm, right pleural effusion was not superficial and deep, no window precluding safe thoracentesis Impression: Bilateral pleural effusions with a type A/B profile Plan: Continued medical management of pleural effusions Images obtained are saved for permanent record
--- NOTE | 2018-06-01 09:11 | Progress Note ---
Internal Med Progress Note Date of Service: Jun 01, 2018. Provider Documentation: SUBJECTIVE: Seen and examined at bedside Currently on CPAP trial Tries to follow commands sedated and intubated No family at bedside No seizure like activity since hospitalization On Tube Feeds OBJECTIVE: Vital Signs-as noted below Physical Exam: General Appearance:Moderately built and nourished, +Sedated and Intubated Head: normocephalic, Atraumatic Eyes: normal inspection, Pinpoint pupils Neck: supple, Trachea midline Respiratory/Chest:B/L air entry, CTA Cardiovascular: S1, S2, No murmur, +Bradycardia Abdomen/GI:Soft, Non tender, Bowel sounds present Extremities/Musculoskelatal:normal inspection, no edema Neurologic/Psych:Complete neuro exam not performed, Sedated Skin: normal color Lab data as noted below. ASSESSMENT & PLAN: Patient is a 72 yr female who presents with acute respiratory failure and possible seizure. 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 Received IV Bumex in ER Continue empiric IV antibiotics IV solumedrol, Nebs IV diuretics PRN Blood Cultures:No growth Urine Culture: pending Need to address goals of care seizure like activity As per family, she had an episode of seizure in the past EEG ordered Appreciate Neurology Input Monitor for seizure activity R/O Gabapentin toxicity: Levels pending Hypothyroidism: Continue Synthroid H/O DM II: Diet Controlled BG levels worsened likely 2/2 steroids A1C:pending Continue ISS Monitor BGs On Tube feeds Acute kidney injury on CKD IV: Baseline Cr around 2 Cr:2.18 today Monitor renal function Avoid Nephrotoxic agents as able H/O COPD: Continue Nebs, Solu-Medrol H/O Paroxysmal atrial fibrillation: Supratherapeutic INR;4.2>>3.7 Hold Coumadin Metoprolol for rate control GERD: continue PPI Hypertension: Hold HTN meds Monitor DVT Px: SCDs INR Supra therapeutic Code status: Full Code for now Need to readdress code status Disposition: Monitor in ICU Vital Signs: Date Time Temp Pulse Resp B/P (MAP) Pulse Ox O2 Delivery O2 Flow Rate FiO2 06/01/18 08:11 50 7/818 08:11 CPAP 50 Mechanical Ventilator 06/01/18 08:01 36.8 51 10 115/45 (68) 91 CPAP 50 Mechanical Ventilator 06/01/18 08:00 52 12 91 7/18 07:27 50 7/818 07:00 56 14 133/59 (83) 90 06/01/18 06:00 73 19 119/69 (86) 92 Mechanical Ventilator 50 06/01/18 06:00 56 /07/12 05:00 50 06/01/18 05:00 62 15 130/55 (80) 92 50 06/01/18 04:00 36.5 52 12 137/54 (81) 92 Mechanical Ventilator 50 06/01/18 03:00 56 15 119/73 (88) 92 Mechanical Ventilator 50 06/01/18 02:00 49 12 104/47 (66) 94 50 06/01/18 01:45 50 06/01/18 01:00 50 12 107/49 (68) 90 Mechanical Ventilator 50 06/01/18 00:01 36.7 52 13 108/47 (67) 91 Mechanical Ventilator 50 05/31/18 23:46 55 7 23:00 54 13 135/51 (79) 92 Mechanical Ventilator 50 05/31/18 22:35 50 05/31/18 22:30 50 05/31/18 22:00 36.6 49 13 134/68 (90) 94 Mechanical Ventilator 50 05/31/18 21:00 49 12 119/50 (73) 92 Mechanical Ventilator 50 05/31/18 20:00 50 7/18 20:00 37.0 61 13 90 Mechanical Ventilator 50 05/31/18 20:00 Mechanical Ventilator 50 718 19:00 50 7//18 19:00 47 12 132/56 (81) 93 Mechanical Ventilator 50 718 18:01 47 12 116/51 (72) 94 718 18:00 48 12 94 Mechanical Ventilator 60 7/7/18 17:45 49 127/53 7/18 17:01 50 12 127/53 (77) 95 7//18 17:00 48 12 94 718 16:55 60 7//18 16:00 36.7 48 12 129/55 (79) 93 Mechanical Ventilator 60 7/7/18 16:00 60 05/31/18 15:01 48 12 113/52 (72) 93 05/31/18 15:00 48 12 93 05/31/18 14:01 63 14 146/63 (90) 95 05/31/18 14:00 60 05/31/18 14:00 53 10 93 Mechanical Ventilator 60 05/31/18 13:01 51 12 130/54 (79) 92 05/31/18 13:00 52 12 93 05/31/18 12:00 70 05/31/18 12:00 36.9 49 12 125/49 (74) 93 Mechanical Ventilator 85 05/31/18 12:00 50 05/31/18 11:01 59 16 181/76 (111) 95 05/31/18 11:00 63 17 96 05/31/18 10:54 70 05/31/18 10:52 85 05/31/18 10:01 54 16 108/54 (72) 94 Mechanical Ventilator 85 05/31/18 10:00 51 16 94 05/31/18 09:00 51 16 106/46 (66) 89 Lab Results: Results Past 24 Hours Test 05/31/18 11:07 05/31/18 11:54 05/31/18 18:26 05/31/18 23:51 Range/Units Lactic Acid Level 2.9 0.4-2.0 mmol/L Troponin I 0.021 0-0.045 ng/ml Bedside Glucose 150 149 140 70-90 mg/dl Test 06/01/18 04:13 06/01/18 06:23 Range/Units White Blood Count 10.89 4.8-10.8 K/uL Red Blood Count 3.69 4.2-5.4 M/uL Hemoglobin 11.9 12.0-16.0 g/dL Hematocrit 36.3 37-47 % Mean Corpuscular Volume 98.4 80-100 fL Mean Corpuscular Hemoglobin 32.2 25-34 pg Mean Corpuscular Hemoglobin Concent 32.8 32-36 g/dl Platelet Count 145 130-400 K/uL Mean Platelet Volume 13.6 7.4-10.4 fL Neutrophils (%) (Auto) 93.9 % Lymphocytes (%) (Auto) 2.9 % Monocytes (%) (Auto) 2.7 % Eosinophils (%) (Auto) 0.0 % Basophils (%) (Auto) 0.1 % Neutrophils # (Auto) 10.23 1.4-6.5 K/uL Lymphocytes # (Auto) 0.32 1.2-3.4 K/uL Monocytes # (Auto) 0.29 0.11-0.59 K/uL Eosinophils # (Auto) 0.00 0-0.5 K/uL Basophils # (Auto) 0.01 0-0.2 K/uL RDW Standard Deviation 55.3 36.4-46.3 fL RDW Coefficient of Variation 15.4 11.5-14.5 % Immature Granulocyte % (Auto) 0.4 % Immature Granulocyte # (Auto) 0.04 0.00-0.02 K/uL Platelet Estimate DECREASED Ovalocytes 1+ Prothrombin Time 38.0 9.0-12.0 SECONDS Prothromb Time International Ratio 3.7 0.9-1.1 Sodium Level 138 136-145 mmol/L Potassium Level 4.3 3.5-5.1 mmol/L Chloride Level 99 98-107 mmol/L Carbon Dioxide Level 33 21-32 mmol/L Anion Gap 6.0 3-11 mmol/L Blood Urea Nitrogen 81 7-18 mg/dl Creatinine 2.18 0.60-1.20 mg/dl Est Creatinine Clear Calc Drug Dose 17.3 ml/min Estimated GFR () 25.2 Estimated GFR (Non- 21.8 BUN/Creatinine Ratio 37.0 10-20 Random Glucose 195 70-99 mg/dl Calcium Level 9.0 8.5-10.1 mg/dl Magnesium Level 2.7 1.8-2.4 mg/dl Pro-B-Type Natriuretic Peptide 6612 0-900 pg/ml Bedside Glucose 178 70-90 mg/dl
[2018-06-01] MEDS: LEVOTHYROXINE SODIUM INJ 35 MCG in SYRINGE 0 ML IV SCH (09:31)
[2018-06-01] MEDS: PANTOprazole INJ 40 MG in SYRINGE 0 ML IV SCH (10:10)
--- NOTE | 2018-06-01 13:21 | PROGRESS NOTE ---
DATE: 06/01/2018 SUBJECTIVE: I am seeing Mrs. Humphries in followup of possible seizure with very little provided history. The patient has been extubated and is now on BiPAP. She has not had any noted seizure. PHYSICAL EXAMINATION: GENERAL: She is awake and alert. When asked, she indicated that she had a mild headache earlier, which has resolved. She indicates she is mildly cold. She is oriented to place and person. NEUROLOGIC: There is normal extraocular motility. Grossly facial symmetry is intact. There is symmetric movement of all 4 extremities, and there is some asterixis versus myoclonic jerks. IMPRESSION: Possible seizure. Some other reported activity consisted of what could have been tremor or myoclonic jerk. Await the results of EEG tomorrow before I would elect to treat that, and EEG would need to be abnormal. The asterixis/myoclonus is likely from CO2 retention. It would not be unreasonable to check an ammonia level. I will follow with you. JUHI
[2018-06-01] MEDS ORDERED: CEFTRIAXONE SOD INJ 1 GM in DEXTROSE 5% ADD-VANTAGE 50ML 50 ML IV SCH (21:00)
[2018-06-02] VITALS (25 sets, daily range): BP systolic 91–165; BP diastolic 52–137; PULSE 57–120; TEMP 36.5–37; O2SAT 87–93
[2018-06-02] MEDS: METOPROLOL TARTRATE 1 MG/ML VIAL IV. SCH ×2 (00:29→05:55)
[2018-06-02] MEDS: DOXYCYCLINE IV 100 MG in DEXTROSE 5% 100ML 100 ML IV SCH (02:34)
[2018-06-02 04:35] LABS: BASO % 0.1 %; BASO ABS # 0.01 K/uL (0-0.2); HEMATOCRIT 33.3 % (37-47); HEMOGLOBIN 10.9 g/dL (12.0-16.0); IG# 0.01 K/uL (0.00-0.02); LYMPH % 5.1 %; LYMPH ABS # 0.36 K/uL (1.2-3.4); MEAN CELL VOLUME 97.7 fL (80-100); MEAN CORPUSCULAR HGB CONC 32.7 g/dl (32-36); MONO ABS # 0.21 K/uL (0.11-0.59); NEUT % 91.7 %; PLATELET COUNT 149 K/uL (130-400); RED CELL DISTRIBUTION WIDTH CV 15.6 % (11.5-14.5); RED CELL DISTRIBUTION WIDTH SD 55.4 fL (36.4-46.3); WHITE BLOOD COUNT 7.09 K/uL (4.8-10.8)
[2018-06-02] MEDS: METHYLPREDNISOLONE IV 40 MG in SYRINGE 0 ML IV SCH (04:35)
[2018-06-02 04:44] LABS: INR 2.7 (0.9-1.1)
[2018-06-02 04:58] LABS: CALCIUM 9.1 mg/dl (8.5-10.1); CREATININE 2.16 mg/dl (0.60-1.20); POTASSIUM 4.6 mmol/L (3.5-5.1)
[2018-06-02] MEDS: INSULIN ASPART 100 UNITS/ML 3 ML PEN SC SCH ×6 (06:00→21:00)
--- NOTE | 2018-06-02 07:49 | DIAGNOSTIC IMAGING REPORT ---
CHEST ONE VIEW PORTABLE CLINICAL HISTORY: intubated tube position COMPARISON STUDY: 06/01/2018 FINDINGS: Interval extubation. Persistent cardiomegaly. Bilateral pleural effusions unchanged. IMPRESSION: Interval extubation. Otherwise unchanged exam. The above report was generated using voice recognition software. It may contain grammatical, syntax or spelling errors. Electronically signed by: Luis Fernando Keene M.D. 06/02/2018 7:48 AM Dictated Date/Time: 06/02/2018 7:46 AM
[2018-06-02] MEDS: PANTOprazole SOD 40 MG TAB PO SCH (08:53)
[2018-06-02] MEDS: LEVOTHYROXINE 75 MCG TAB PO SCH (08:53)
[2018-06-02] MEDS ORDERED: DOBUTamine / D5W 500 MG IV SCH (09:15)
--- NOTE | 2018-06-02 09:58 | Progress Note ---
Internal Med Progress Note Date of Service: Jun 02, 2018. Provider Documentation: SUBJECTIVE: Seen and examined at bedside Had EEG earlier today Currently having breakfast States having a lot of dry cough Currently in afib RVR: asymptomatic Extubated yesterday Planned to be started on Dobutamine ggt May get Linville Gabriella for diagnostic No family at bedside Discussed with Steam Engineer: Appreciate Input OBJECTIVE: Vital Signs-as noted below Physical Exam: General Appearance:Moderately built and nourished, No distress Head: normocephalic, Atraumatic Eyes: normal inspection, EOMI Neck: supple, Trachea midline Respiratory/Chest:B/L air entry, Scattered Crackles Cardiovascular: Irregularly Irregular, +Tachycardia, No murmur Abdomen/GI:Soft, Non tender, Bowel sounds present Extremities/Musculoskelatal:normal inspection, no edema Neurologic/Psych:grossly no focal deficits Skin: normal color Lab data as noted below. ASSESSMENT & PLAN: Patient is a 72 yr female who presents with acute respiratory failure and possible seizure. Acute on chronic respiratory failure: Likely multifactorial Acute on chronic diastolic CHF and RHF H/O Right HF, Diastolic CHF, Pulmonary HTN, COPD, JOSIAS, Chronic cor Pulmonale , Non complaint with BiPAP CXR: Pleural effusion, bibasilar consolidation-likely atelectasis Received IV Bumex Empiric IV antibiotics discontinues Started on Dobutamine ggt Nebs PRN Appreciate Steam Engineer Input Blood/Urine Cultures:No growth Cardiology consulted May get Linville Gabriella for diagnostic seizure like activity As per family, she had an episode of seizure in the past EEG pending Appreciate Neurology Input Monitor for seizure activity R/O Gabapentin toxicity: Levels pending Hypothyroidism: Continue Synthroid H/O DM II: Diet Controlled BG levels worsened likely 2/2 steroids A1C:6.0 Continue ISS Monitor BGs Acute kidney injury on CKD IV: Baseline Cr around 2 Cr:2.16 today Monitor renal function Avoid Nephrotoxic agents as able H/O COPD: No signs of exacerbation Continue Nebs PRN H/O Paroxysmal atrial fibrillation: Supratherapeutic INR;4.2>>3.7>>2.7 Resume Coumadin as able Metoprolol for rate control GERD: continue PPI Hypertension: Stable Resume HTN meds as able Monitor DVT Px: SCDs INR therapeutic Code status: DNR Disposition: Monitor in ICU Vital Signs: Date Time Temp Pulse Resp B/P (MAP) Pulse Ox O2 Delivery O2 Flow Rate FiO2 06/02/18 09:35 112 22 165/137 (146) 87 Nasal Cannula 5.0 06/02/18 09:00 73 20 153/89 (110) 88 Nasal Cannula 5.0 06/02/18 08:00 37.0 57 18 141/64 (89) 89 Oxymask 10.0 06/02/18 08:00 89 Oxymask 10.0 06/02/18 07:22 62 93 60 06/02/18 07:00 37.0 57 18 141/64 (89) 89 Oxymask 10.0 06/02/18 06:00 65 20 133/72 (92) 92 BiPAP 60 06/02/18 05:55 58 06/02/18 05:31 64 91 60 06/02/18 05:00 61 17 125/58 (80) 92 BiPAP 60 06/02/18 04:00 36.5 15 129/62 (84) 93 BiPAP 60 06/02/18 03:00 63 18 124/91 (102) 91 BiPAP 60 06/02/18 02:00 63 19 127/61 (83) 90 BiPAP 60 06/02/18 02:00 63 91 60 06/02/18 01:00 71 18 128/58 (81) 92 BiPAP 60 06/02/18 00:29 66 121/52 06/02/18 00:01 36.7 66 16 121/52 (75) 91 BiPAP 60 06/01/18 23:30 71 93 60 06/01/18 23:00 68 16 125/54 (77) 90 BiPAP 60 06/01/18 22:28 69 91 60 06/01/18 22:00 67 17 121/66 (84) 91 BiPAP 60 06/01/18 21:56 BiPAP 60 06/01/18 21:00 64 16 126/50 (75) 90 BiPAP 60 06/01/18 19:30 72 93 60 06/01/18 19:00 61 19 144/65 (91) 90 BiPAP 60 06/01/18 18:01 64 18 128/68 (88) 92 CPAP 50 Mechanical Ventilator 06/01/18 18:00 67 13 91 06/01/18 17:00 58 13 129/53 (78) 90 06/01/18 16:01 36.8 59 18 119/59 (79) 90 CPAP 50 Mechanical Ventilator 06/01/18 16:00 58 18 91 50 06/01/18 15:00 72 18 152/77 (102) 90 06/01/18 14:01 55 24 132/62 (85) 92 CPAP 50 Mechanical Ventilator 06/01/18 14:00 56 19 92 06/01/18 13:02 58 91 60 06/01/18 13:01 66 21 145/62 (89) 92 CPAP 50 Mechanical Ventilator 06/01/18 13:00 73 21 91 06/01/18 12:13 92 CPAP 60 Mechanical Ventilator 06/01/18 12:02 36.5 60 20 148/65 (92) 92 CPAP 50 Mechanical Ventilator 06/01/18 12:00 62 19 92 06/01/18 12:00 52 06/01/18 11:44 63 17 128/79 (95) 93 06/01/18 11:02 72 20 128/79 (95) 95 06/01/18 11:00 64 18 93 06/01/18 10:21 66 92 60 06/01/18 10:00 55 11 116/50 (72) 90 CPAP 50 Mechanical Ventilator Lab Results: Results Past 24 Hours Test 06/01/18 11:35 06/01/18 18:02 06/02/18 00:31 06/02/18 04:23 Range/Units Bedside Glucose 160 133 127 70-90 mg/dl White Blood Count 7.09 4.8-10.8 K/uL Red Blood Count 3.41 4.2-5.4 M/uL Hemoglobin 10.9 12.0-16.0 g/dL Hematocrit 33.3 37-47 % Mean Corpuscular Volume 97.7 80-100 fL Mean Corpuscular Hemoglobin 32.0 25-34 pg Mean Corpuscular Hemoglobin Concent 32.7 32-36 g/dl Platelet Count 149 130-400 K/uL Mean Platelet Volume 12.0 7.4-10.4 fL Neutrophils (%) (Auto) 91.7 % Lymphocytes (%) (Auto) 5.1 % Monocytes (%) (Auto) 3.0 % Eosinophils (%) (Auto) 0.0 % Basophils (%) (Auto) 0.1 % Neutrophils # (Auto) 6.50 1.4-6.5 K/uL Lymphocytes # (Auto) 0.36 1.2-3.4 K/uL Monocytes # (Auto) 0.21 0.11-0.59 K/uL Eosinophils # (Auto) 0.00 0-0.5 K/uL Basophils # (Auto) 0.01 0-0.2 K/uL RDW Standard Deviation 55.4 36.4-46.3 fL RDW Coefficient of Variation 15.6 11.5-14.5 % Immature Granulocyte % (Auto) 0.1 % Immature Granulocyte # (Auto) 0.01 0.00-0.02 K/uL Prothrombin Time 28.1 9.0-12.0 SECONDS Prothromb Time International Ratio 2.7 0.9-1.1 Sodium Level 140 136-145 mmol/L Potassium Level 4.6 3.5-5.1 mmol/L Chloride Level 100 98-107 mmol/L Carbon Dioxide Level 33 21-32 mmol/L Anion Gap 7.0 3-11 mmol/L Blood Urea Nitrogen 91 7-18 mg/dl Creatinine 2.16 0.60-1.20 mg/dl Est Creatinine Clear Calc Drug Dose 17.5 ml/min Estimated GFR () 25.5 Estimated GFR (Non- 22.0 BUN/Creatinine Ratio 42.3 10-20 Random Glucose 156 70-99 mg/dl Calcium Level 9.1 8.5-10.1 mg/dl Magnesium Level 2.7 1.8-2.4 mg/dl Ammonia 13.0 11-32 umol/L Pro-B-Type Natriuretic Peptide 6246 0-900 pg/ml Test 06/02/18 06:14 Range/Units Bedside Glucose 144 70-90 mg/dl
--- NOTE | 2018-06-02 10:22 | Critical Care Progress Note ---
Critical Care Progress Note Date of Service Jun 02, 2018. Attending Dr. Alvarez Subjective The patient did not have any events overnight, currently she is on oxymask 10 L. Her O2 saturation is variable and fluctuating. The patient denies any shortness of breath or chest pain. No dizziness and no near syncopal episode. Objective General: Alert. nontoxic. Skin: Warm, dry, Head: Atraumatic Ears, nose, mouth and throat: Endotracheal tube present Cardiovascular: Normal peripheral perfusion Respiratory: no respiratory distress Gastrointestinal: Non distended Musculoskeletal: No deformity Physical exam of 06/02/2018 showed elderly female, does not appear to be in any respiratory distress although her O2 sat is fluctuating. No stridor, S1-S2 with systolic ejection murmur, in A. fib, occasionally she is in RVR. 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 Data has been reviewed from previous which include CAT scan from July 2017 which did not show any evidence of pulmonary fibrosis, it showed at that time infiltrates. Patient does have mild COPD changes. The patient also has an echocardiogram done on May 31, 2018 2 days ago which showed EF of 55% but severely dilated RV with pulmonary pressure in the range of 50s. Chest x-ray was reviewed also on multiple occasions which showed cardiomegaly with engorged pulmonary artery. There is a cardiac device noted on the chest x-ray. 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 Assessment & Plan 1. Acute on chronic hypoxic respiratory failure. 2. No evidence of pulmonary fibrosis. 3. COPD. 4. Right sided heart failure. 5. Possible PFO, however the patient had an echo but it was not a bubble study or a shunt study. 6. A. fib with RVR, location the patient also is fluctuating between bradycardia and tachycardia. 7. CKD, stage IV. Plan: 1. Discontinue antibiotic, no evidence of infectious process. 2. Discontinue Solu-Medrol, the patient has COPD but not in exacerbation at the moment. 3. Start the patient on dobutamine at 2.5 mics per KG per minute at steady dose. 4. Start the patient on Lasix 40 mg IV every 12 hours. Anticipate fluid shift after reducing the pulmonary pressure with dobutamine. 5. Continue with Coumadin. INR is 2.7. 6. Change the oxygen from a facemask to nasal cannula at 5 L and except O2 sat above than 85%. It would be very difficult to measure accurate O2 saturation with severely dilated RV. 7. Lopressor for rate control, I would increase the dose to 5 mg every 4 hours. And can be used every 10 minutes 3 doses on the series if needed. 8. Consult cardiology to Dr. Lay for possible PA catheter. 9. The patient is DNR and DNI per report. 10. I will hold off on physical therapy today until the patient pulmonary artery pressure is slightly responsive to dobutamine. 11. Continue short acting bronchodilators. As well as long-acting beta agonist. Case discussed with the staff on rounds and details, critical care time spent with the patient was 45 minutes including reviewing the records. Consults & Procedures Consultants: Neurology Procedures: Intubation 05/30/2018 Data Medications: Current Inpatient Medications Medications (Trade) Dose Ordered Sig/Mehdi Route Start Time Stop Time Status Last Admin Dose Admin Ondansetron HCl (Zofran Inj) 4 mg Q6H PRN IV 05/31/18 00:15 06/30/18 00:14 Metoprolol Tartrate (Lopressor Iv) 2.5 mg Q6 IV. 05/31/18 06:00 06/30/18 05:59 06/02/18 00:29 2.5 MG Albuterol (Ventolin Hfa Inhaler) 2 puffs Q6 PRN INH 05/31/18 00:45 06/30/18 00:44 Glucose (Glucose 40% Gel) 15-30 GRAMS 15 GRAMS... UD PRN PO 05/31/18 09:15 06/30/18 09:14 Glucose (Glucose Chew Tab) 4-8 Tablets 4 Tabl... UD PRN PO 05/31/18 09:15 06/30/18 09:14 Dextrose (Dextrose 50% 50ML Syringe) 25-50ML 25ML FOR ... UD PRN IV 05/31/18 09:15 06/30/18 09:14 Glucagon (Glucagon Inj) 1 mg UD PRN SQ 05/31/18 09:15 06/30/18 09:14 Carbohydrates (Carbohydrates For Hypoglycemia) 15-30 GRAMS 15 grams if BSG 54-69... UD PRN PO 05/31/18 09:15 06/30/18 09:14 Insulin Aspart (novoLOG ASPART) SLIDING SCALE If C... Q6 SC 05/31/18 12:00 06/30/18 10:59 Pantoprazole Sodium (Protonix Tab) 40 mg QAM PO 06/02/18 09:00 07/02/18 08:59 06/02/18 08:53 40 MG Levothyroxine Sodium (Synthroid Tab) 75 mcg DAILYBB PO 06/02/18 09:00 07/02/18 08:59 06/02/18 08:53 75 MCG Dobutamine HCl 250 ml @ 4.9 mls/hr Q24H IV 06/02/18 09:15 07/02/18 09:14 06/02/18 09:38 4.9 MLS/HR I & O: 24-Hour Column 06/03/18 08:00 Output Total 100 ml Balance -100 ml Vital Signs: Date Time Temp Pulse Resp B/P (MAP) Pulse Ox O2 Delivery O2 Flow Rate FiO2 06/02/18 09:35 112 22 165/137 (146) 87 Nasal Cannula 5.0 06/02/18 09:00 73 20 153/89 (110) 88 Nasal Cannula 5.0 06/02/18 08:00 37.0 57 18 141/64 (89) 89 Oxymask 10.0 06/02/18 08:00 89 Oxymask 10.0 06/02/18 07:22 62 93 60 06/02/18 07:00 37.0 57 18 141/64 (89) 89 Oxymask 10.0 06/02/18 06:00 65 20 133/72 (92) 92 BiPAP 60 06/02/18 05:55 58 06/02/18 05:31 64 91 60 06/02/18 05:00 61 17 125/58 (80) 92 BiPAP 60 06/02/18 04:00 36.5 15 129/62 (84) 93 BiPAP 60 06/02/18 03:00 63 18 124/91 (102) 91 BiPAP 60 06/02/18 02:00 63 19 127/61 (83) 90 BiPAP 60 06/02/18 02:00 63 91 60 06/02/18 01:00 71 18 128/58 (81) 92 BiPAP 60 06/02/18 00:29 66 121/52 7/9/18 00:01 36.7 66 16 121/52 (75) 91 BiPAP 60 06/01/18 23:30 71 93 60 18 23:00 68 16 125/54 (77) 90 BiPAP 60 18 22:28 69 91 60 18 22:00 67 17 121/66 (84) 91 BiPAP 60 06/01/18 21:56 BiPAP 60 18 21:00 64 16 126/50 (75) 90 BiPAP 60 18 19:30 72 93 60 18 19:00 61 19 144/65 (91) 90 BiPAP 60 06/01/18 18:01 64 18 128/68 (88) 92 CPAP 50 Mechanical Ventilator 06/01/18 18:00 67 13 91 06/01/18 17:00 58 13 129/53 (78) 90 06/01/18 16:01 36.8 59 18 119/59 (79) 90 CPAP 50 Mechanical Ventilator 06/01/18 16:00 58 18 91 50 06/01/18 15:00 72 18 152/77 (102) 90 06/01/18 14:01 55 24 132/62 (85) 92 CPAP 50 Mechanical Ventilator 06/01/18 14:00 56 19 92 06/01/18 13:02 58 91 60 06/01/18 13:01 66 21 145/62 (89) 92 CPAP 50 Mechanical Ventilator 06/01/18 13:00 73 21 91 06/01/18 12:13 92 CPAP 60 Mechanical Ventilator 06/01/18 12:02 36.5 60 20 148/65 (92) 92 CPAP 50 Mechanical Ventilator 06/01/18 12:00 62 19 92 06/01/18 12:00 52 06/01/18 11:44 63 17 128/79 (95) 93 06/01/18 11:02 72 20 128/79 (95) 95 06/01/18 11:00 64 18 93 06/01/18 10:21 66 92 60 Laboratory Results: Last 24 Hours Test 06/01/18 11:35 06/01/18 18:02 06/02/18 00:31 06/02/18 04:23 Bedside Glucose 160 mg/dl 133 mg/dl 127 mg/dl White Blood Count 7.09 K/uL Red Blood Count 3.41 M/uL Hemoglobin 10.9 g/dL Hematocrit 33.3 % Mean Corpuscular Volume 97.7 fL Mean Corpuscular Hemoglobin 32.0 pg Mean Corpuscular Hemoglobin Concent 32.7 g/dl Platelet Count 149 K/uL Mean Platelet Volume 12.0 fL Neutrophils (%) (Auto) 91.7 % Lymphocytes (%) (Auto) 5.1 % Monocytes (%) (Auto) 3.0 % Eosinophils (%) (Auto) 0.0 % Basophils (%) (Auto) 0.1 % Neutrophils # (Auto) 6.50 K/uL Lymphocytes # (Auto) 0.36 K/uL Monocytes # (Auto) 0.21 K/uL Eosinophils # (Auto) 0.00 K/uL Basophils # (Auto) 0.01 K/uL RDW Standard Deviation 55.4 fL RDW Coefficient of Variation 15.6 % Immature Granulocyte % (Auto) 0.1 % Immature Granulocyte # (Auto) 0.01 K/uL Prothrombin Time 28.1 SECONDS Prothromb Time International Ratio 2.7 Sodium Level 140 mmol/L Potassium Level 4.6 mmol/L Chloride Level 100 mmol/L Carbon Dioxide Level 33 mmol/L Anion Gap 7.0 mmol/L Blood Urea Nitrogen 91 mg/dl Creatinine 2.16 mg/dl Est Creatinine Clear Calc Drug Dose 17.5 ml/min Estimated GFR () 25.5 Estimated GFR (Non- 22.0 BUN/Creatinine Ratio 42.3 Random Glucose 156 mg/dl Calcium Level 9.1 mg/dl Magnesium Level 2.7 mg/dl Ammonia 13.0 umol/L Pro-B-Type Natriuretic Peptide 6246 pg/ml Test 06/02/18 06:14 Bedside Glucose 144 mg/dl
[2018-06-02] MEDS ORDERED: NURSING VERBAL MED ORDER ONE ×4 (11:00→18:45)
[2018-06-02] MEDS ORDERED: METOPROLOL SUCC 25MG EXT REL TAB PO STA ×2 (11:58→16:22)
[2018-06-02] MEDS ORDERED: METOPROLOL TARTRATE 1 MG/ML VIAL IV. SCH (12:00)
--- NOTE | 2018-06-02 13:19 | CARDIOLOGY CONSULTATION ---
DATE OF CONSULTATION: 06/02/2018 REFERRING PHYSICIAN: Dr. Vianey Alvarez MD PRIMARY CARE PHYSICIAN: Dr. South plus staff at [facility]. INDICATIONS: Respiratory distress, tachybrady, pulmonary hypertension. HISTORY OF PRESENT ILLNESS: The patient is a 72-year-old female with very complex past history as outlined below, who was admitted from extended care facility for possible seizure activities that are observed with worsening respiratory status and hypoxia. The patient was brought to the Emergency Room and intubated and now extubated. She is referred for ongoing management of cardiopulmonary issues. Her past medical history is notable for chronic right-sided heart failure with marked right ventricular and right atrial dilatation and severe pulmonary hypertension as a residual of prior congenital atrial septal defect with late surgical closure in 2007. She also carries an underlying history of cor pulmonale, obstructive lung disease, and obstructive sleep apnea with noncompliance with BiPAP and she is chronically maintained on oxygen supplementation. Her past cardiac history is notable for paroxysmal AFib flutter with borderline tachybrady syndrome, prior flutter ablation in 2014 and 2015. The patient has had prior pacemaker implantation, dual chamber in 2009, though underwent subsequent later extraction due to bacteremia and possible pacemaker vegetation. She has an indwelling loop recorder. Underlying medical problems include chronic renal insufficiency with prior nephrectomy, diabetes mellitus, hypothyroidism. The patient has had prior cardiac catheterization, though in the remote past in 2007 without significant obstructive disease. The patient is referred now for further evaluation. She has been extubated since admission. Notes cough with moderate amount of sputum production. Notes chest pain with cough. Notes no dizziness or lightheadedness. Did tend to run slower heart rates this admission. Has been off oral medications including metoprolol. She was trialled on dobutamine this morning with subsequent rapid increase in heart rates, paroxysmal atrial flutter. She denies any specific cardiac complaints as noted above currently; has been able to eat breakfast. ALLERGIES: MULTIPLE AND INCLUDE AMOXICILLIN, CLARITHROMYCIN, LEVOFLOXACIN, OMEPRAZOLE, QUINOLONES, RANITIDINE, SULFAMETHOXAZOLE, TRIAMTERENE. MEDICATIONS: Prior to hospitalization were albuterol nebulizer and inhaler, Dulcolax, brinzolamide eyedrops, Bumex 1 mg Saturday, Saturday, Saturday, , Saturday and 2 mg all other days, benazepril 10 mg at bedtime, gabapentin 600 mg b.i.d., hydralazine 10 mg b.i.d., levothyroxine 75 mcg p.o. every day, metoprolol succinate 25 mg p.o. daily, oxybutynin 5 mg p.o. daily, pantoprazole 40 mg p.o. daily, pravastatin 80 mg p.o. daily, Senokot, warfarin variable dosing, Incruse, Ellipta inhaler. PAST SURGICAL HISTORY: Notable for open patch closure of atrial septal defect in March of 2008, possible appendectomy, right nephrectomy, partial thyroidectomy and tonsillectomy. The patient has had prior pacemaker insertion as well as pacemaker extraction in 2010. She has an implantable loop recorder in place. FAMILY HISTORY: Noncontributory. SOCIAL HISTORY: The patient is a resident of [facility], carries a prior history of greater than [id number] history of tobacco usage. No significant alcoholic beverages. PHYSICAL EXAMINATION: GENERAL: The patient is currently denying complaints. VITAL SIGNS: Heart rate is 110-120, blood pressure is 126/84, O2 saturations marginal on oxygen supplementation. HEENT: Normocephalic and atraumatic. NECK: Thick. There is no distinct jugular venous distention. LUNGS: Reveal scattered coarse rhonchi with cough. CARDIOVASCULAR: Irregularly irregular. There is no S3 gallop. There is a grade 1/6 systolic murmur. ABDOMEN: Soft. EXTREMITIES: Without cyanosis or clubbing. There is trace pedal edema. DATA: Echocardiogram on 05/31/2018 reveals borderline left ventricular global hypokinesis, EF 50% to 55% with marked right atrial and right ventricular dilatation, moderate mitral and severe tricuspid insufficiency and elevated pulmonary pressures though consistent with prior studies. Chest x-ray today demonstrates cardiomegaly, small bilateral pleural effusions. LABORATORY STUDIES: White cell count is 7.0, hemoglobin is 10.9. Sodium is 140, potassium is 4.5, chloride is 100, bicarbonate is 33, BUN is 91, creatinine is 2.16. EKG on presentation demonstrated sinus rhythm with bifascicular block, right bundle branch block, left anterior fascicular block. IMPRESSION: Lea Humphries is a complex 72-year-old female with longstanding right atrium and right ventricular dilatation secondary to cor pulmonale as a residual of chronic large atrial septal defect status post surgical repair in 2007 and underlying pulmonary issues including obstructive sleep apnea. She presents now with hypoxic respiratory failure and possible seizure activity versus hypoxia-induced neurologic complaints. She is now extubated and oxygenating. Underlying medical problems include diabetes mellitus, chronic renal insufficiency with prior nephrectomy, past paroxysmal AFib flutter with borderline tachybrady syndrome. On exam, currently the patient has lapsed into atrial fibrillation intermittently. Will discontinue dobutamine, resume oral Toprol and follow clinical course. She is appropriately anticoagulated with warfarin. Treatment of underlying pulmonary issues are warranted, though pulmonary hypertension is chronic without signs or symptoms of acute exacerbation or worsening.
[2018-06-02] MEDS ORDERED: WARFARIN SOD 2.5 MG TAB PO SCH (16:00)
[2018-06-02] MEDS: WARFARIN SOD 2.5 MG TAB PO SCH (16:10)
--- NOTE | 2018-06-02 18:12 | PROGRESS NOTE ---
DATE: 06/02/2018 I am seeing Ms. Humphries in followup of possible seizure. EEG normal. No seizure activity was noted. The patient is currently off BiPAP, awake, alert, following simple commands, very mildly tremulous on intention, but no significant myoclonic jerks. IMPRESSION: This patient has a history of episodes of tremor interpreted to be seizure. The history giving has been difficult. On this admission, the question of seizure occurred in the setting of hypoxemia. No seizure was witnessed by medical professional per se. Given that she was seriously ill and hypoxic with hypercarbia at that time, I would elect not to treat unless we had definitive evidence that this was seizure. We will sign off at this point. Certainly if the patient has additional episodes, we would be glad to see her back. JUHI
[2018-06-02] MEDS: ACETAMINOPHEN 325 MG TAB PO PRN (18:51)
[2018-06-03] VITALS (43 sets, daily range): BP systolic 67–155; BP diastolic 43–86; PULSE 46–127; TEMP 36.3–37; O2SAT 64–95
[2018-06-03 04:43] LABS: BASO % 0.1 %; BASO ABS # 0.01 K/uL (0-0.2); EOS % 0.1 %; EOS ABS # 0.01 K/uL (0-0.5); HEMATOCRIT 39.3 % (37-47); HEMOGLOBIN 12.7 g/dL (12.0-16.0); IG# 0.02 K/uL (0.00-0.02); LYMPH % 13.4 %; LYMPH ABS # 1.07 K/uL (1.2-3.4); MEAN CELL VOLUME 99.2 fL (80-100); MEAN CORPUSCULAR HEMOGLOBIN 32.1 pg (25-34); MEAN CORPUSCULAR HGB CONC 32.3 g/dl (32-36); MEAN PLATELET VOLUME 12.7 fL (7.4-10.4); MONO % 11.2 %; MONO ABS # 0.89 K/uL (0.11-0.59); NEUT % 74.9 %; NEUT ABS # 5.97 K/uL (1.4-6.5); PLATELET COUNT 178 K/uL (130-400); RED CELL DISTRIBUTION WIDTH CV 15.7 % (11.5-14.5); WHITE BLOOD COUNT 7.97 K/uL (4.8-10.8)
[2018-06-03 04:54] LABS: INR 2.7 (0.9-1.1)
[2018-06-03 05:11] LABS: CALCIUM 9.3 mg/dl (8.5-10.1); CREATININE 2.38 mg/dl (0.60-1.20)
[2018-06-03] MEDS: LEVOTHYROXINE 75 MCG TAB PO SCH (06:08)
[2018-06-03] MEDS: INSULIN ASPART 100 UNITS/ML 3 ML PEN SC SCH ×4 (06:45→21:00)
--- NOTE | 2018-06-03 06:59 | DIAGNOSTIC IMAGING REPORT ---
CHEST ONE VIEW PORTABLE CLINICAL HISTORY: Respiratory failure COMPARISON STUDY: No previous studies for comparison. FINDINGS: The heart is enlarged. There is persistent pulmonary artery enlargement. Epicardial leads are again visualized. An electronic device projects over the left heart border. There is mild pulmonary vascular congestion. There are right perihilar atelectatic changes. There is persistent left basilar atelectasis/consolidation with poor delineation left hemidiaphragm. On the current film the trachea and mainstem bronchi appear markedly narrowed. It is possible that this is artifactual. If not, the findings indicate severe tracheomalacia is or edema. IMPRESSION: 1. Persistent cardiomegaly and potential hypertension 2. Mild pulmonary vascular congestion 3. Unexplained marked narrowing of the tracheal air shadow. Electronically signed by: Raman Padilla M.D. 06/03/2018 6:58 AM Dictated Date/Time: 06/03/2018 6:52 AM
[2018-06-03] MEDS: ONDANSETRON INJ 2 MG/ML 2 ML VIAL IV PRN ×3 (07:39→15:55)
--- NOTE | 2018-06-03 07:57 | ELECTROENCEPHALOGRAPH REPORT ---
CLINICAL DIAGNOSIS: Possible seizure activity. ELECTROENCEPHALOGRAM DIAGNOSIS: Mildly diffusely abnormal EEG during wakefulness and drowsiness. DESCRIPTION OF TRACING: This EEG was done as a bedside recording with photic stimulation as the only stimulus parameter. Episodes of short duration of drowsiness are recorded. Video analysis of patient movement and behavior was obtained. During wakefulness, there is evidence for a moderately well-developed background rhythm in the upper theta range of up to 8 Hz of maximum frequency and of up to 30 microvolts of maximum amplitude. This is maximum in posterior head regions and bilaterally symmetrical. Polymorphic mid to slightly lower frequency theta activity of modest voltage intermixed with occasional waveforms in the delta range is seen over the central regions in a symmetrical fashion. Beta activity is seen bifrontally. Photic stimulation provoked some minimal driving response without a photomyogenic or photoparoxysmal component. Drowsiness is obtained episodically and contains no abnormal activations. INTERPRETATIONS: This electroencephalogram reveals evidence for mild generalized highly nonspecific encephalopathy without lateralizing features and without associated potentially epileptogenic activity.
[2018-06-03] MEDS ORDERED: METOPROLOL TARTRATE 1 MG/ML VIAL IV PRN (08:15)
[2018-06-03] MEDS ORDERED: MIDAZOLAM HCL 5 MG/ML 1 ML VIAL ONE (08:43)
[2018-06-03] MEDS ORDERED: MIDAZOLAM HCL 5 MG/ML 1 ML VIAL IV SCH (08:45)
[2018-06-03] MEDS ORDERED: FENTANYL CITRATE INJ 50 MCG/1 ML 2 ML VIAL IV SCH (08:45)
[2018-06-03] MEDS ORDERED: ATROPINE SULFATE 0.1 MG/ML 5ML SYR ONE (08:47)
[2018-06-03] MEDS ORDERED: FLUMAZENIL 0.1 MG/1 ML 10 ML VIAL IV ONE ×2 (08:56→08:57)
[2018-06-03] MEDS ORDERED: METOPROLOL SUCC 25MG EXT REL TAB PO SCH (09:00)
[2018-06-03] MEDS ORDERED: FUROSEMIDE INJ 40 MG in SYRINGE 0 ML IV SCH (09:00)
[2018-06-03] MEDS: PANTOprazole SOD 40 MG TAB PO SCH (09:00)
[2018-06-03] MEDS ORDERED: ATROPINE SULFATE 0.1 MG/ML 5ML SYR IV PRN (09:00)
--- NOTE | 2018-06-03 09:23 | PROGRESS NOTE ---
DATE: 06/03/2018 The patient is seen and examined. Chart, medications, telemetry reviewed. SUBJECTIVE: The patient feels worse this morning, nausea, chest pressure, diaphoretic, mildly hypertensive, remains in atrial fibrillation/flutter with rapid ventricular response, rates in 120s with a little break. She has occasional ventricular ectopic beats. There have been no bradyarrhythmias. OBJECTIVE: VITAL SIGNS: Heart rate is 120, blood pressure is 101/76. NECK: Thick. There is no distinct jugular venous distention. RESPIRATORY: Lungs reveal diminished breath sounds diffusely. CARDIOVASCULAR: Irregularly irregular. There is no S3 gallop. GASTROINTESTINAL: Abdomen is soft. MUSCULOSKELETAL: Extremities reveal trace pedal edema only. LABORATORY DATA: Sodium is 135, potassium is 5.0, chloride is 98, bicarbonate is 30, BUN is 102, creatinine is 2.38. BNP is 32,000. Magnesium is 2.6. IMPRESSION: A 72-year-old female with chronic right heart failure, cor pulmonale, relapsed into atrial fibrillation/flutter yesterday. As part of clinical course, she has been persistent rhythm throughout now and feels worse than this morning with chest discomfort and diaphoresis. The patient has a history of past tachybrady rhythm, bifascicular heart block, remains at elevated risk for intervention; however, given symptoms, complaints, and poor tolerance of atrial flutter documented in the past, will proceed with synchronized electrical cardioversion as clinical course. I have discussed this in detail with the patient, she is agreeable. Consent obtained. Procedure to be performed urgently in intensive care unit. JUHI
--- NOTE | 2018-06-03 10:14 | Pre Sedation Assessment ---
Pre Sedation Assessment General Date of Sedation: Jun 03, 2018. Vital Signs Past 12 Hours Date Time Temp Pulse Resp B/P (MAP) Pulse Ox O2 Delivery O2 Flow Rate FiO2 06/03/18 09:18 89 12 131/70 87 Oxymask 15.0 06/03/18 09:13 58 12 125/66 87 Oxymask 15.0 06/03/18 09:08 85 12 125/67 85 Oxymask 15.0 06/03/18 09:03 88 12 120/69 88 Oxymask 10.0 06/03/18 08:58 86 12 117/66 77 Ambu-Bag 15.0 06/03/18 08:54 58 12 67/43 64 BiPAP 5.0 60 06/03/18 08:52 77 10 79/49 78 Nasal Cannula 5.0 06/03/18 08:49 125 18 95/62 90 Nasal Cannula 5.0 06/03/18 06:00 126 19 101/76 (84) 95 BiPAP 06/03/18 05:10 124 93 60 06/03/18 05:00 124 19 110/79 (89) 91 BiPAP 06/03/18 04:00 36.3 125 21 107/71 (83) 94 BiPAP 06/03/18 03:00 123 17 102/64 (77) 93 BiPAP 06/03/18 02:00 122 18 110/69 (83) 94 BiPAP 06/03/18 01:28 118 93 60 06/03/18 01:00 119 30 100/66 (77) 90 Nasal Cannula 5.0 Humidified Oxygen 06/03/18 00:00 36.9 114 18 110/69 (83) 91 Nasal Cannula 5.0 Humidified Oxygen 06/02/18 23:00 113 15 113/76 (88) 92 Nasal Cannula 5.0 Humidified Oxygen Review Cardiovascular: + tachycardia, + irregularly irregular Lungs: + rhonchi (Chest pain reported as well as abdominal pain) Pre-Sedation Airway Assessment Smoking Status: Former Smoker Hx of Sleep Apnea: No Short Thick Neck: No Thyro-mental Distance: > 3 Finger Breadths Oral Cavity: Dental Abnormalities Mallampati Classification: Class II ASA Classification: Class III NPO Status Date of Last Intake of Fluids: Jun 02, 2018 Time of Last Intake of Fluids: 2359 Date of Last Intake of Solids: Jun 02, 2018 Time of Last Intake of Solids: 1800 Procedure Planning Contraindications for Sedation: None (The patient has to have cardioversion due to the emergency a flutter and dropping her blood pressure with diaphoresis. ) Current Medications Reviewed: Yes Notes The planned sedation has been discussed with the patient. Informed Consent was obtained. I have identified the patient, determined the appropriateness of sedation and have assessed the patient immediately prior to the procedure. All medicine(s) and interventions are by my order.
--- NOTE | 2018-06-03 10:17 | Post Sedation Assessment ---
Post Sedation Assessment General Date of Sedation Jun 03, 2018. Vital Signs: Vital Signs Past 12 Hours Date Time Temp Pulse Resp B/P (MAP) Pulse Ox O2 Delivery O2 Flow Rate FiO2 06/03/18 09:18 89 12 131/70 87 Oxymask 15.0 06/03/18 09:13 58 12 125/66 87 Oxymask 15.0 06/03/18 09:08 85 12 125/67 85 Oxymask 15.0 06/03/18 09:03 88 12 120/69 88 Oxymask 10.0 06/03/18 08:58 86 12 117/66 77 Ambu-Bag 15.0 06/03/18 08:54 58 12 67/43 64 BiPAP 5.0 60 06/03/18 08:52 77 10 79/49 78 Nasal Cannula 5.0 06/03/18 08:49 125 18 95/62 90 Nasal Cannula 5.0 06/03/18 06:00 126 19 101/76 (84) 95 BiPAP 06/03/18 05:10 124 93 60 06/03/18 05:00 124 19 110/79 (89) 91 BiPAP 06/03/18 04:00 36.3 125 21 107/71 (83) 94 BiPAP 06/03/18 03:00 123 17 102/64 (77) 93 BiPAP 06/03/18 02:00 122 18 110/69 (83) 94 BiPAP 06/03/18 01:28 118 93 60 06/03/18 01:00 119 30 100/66 (77) 90 Nasal Cannula 5.0 Humidified Oxygen 06/03/18 00:00 36.9 114 18 110/69 (83) 91 Nasal Cannula 5.0 Humidified Oxygen 06/02/18 23:00 113 15 113/76 (88) 92 Nasal Cannula 5.0 Humidified Oxygen Post Procedure Recovery Score Activity: (2) Moves 4 extremities * Respiration: (2) Deep breath/cough Circulation: (1) +/-20-49% PreAnes Angeline Consciousness: (1) Arouseable (by name) Oxygen Saturation: (0) <90% w/ supp O2 Post Anesthesia Score: 6 Discharge Sedation Level of Care: Phase I Post Sedation Plan On clinical assessment, the patient appears to have tolerated the sedation without complications. Patient is recovering as anticipated. Patient will continue to be monitored by nursing and may be discharged when sedation discharge criteria are met per below protocol. Upon Completions of procedure and additional 15 minutes continue every 5 minute vital signs and the P.A.R. score; then discharge to a Phase I or Fast Track to Phase II per the following guidelines: * Discharge Patient to appropriate Phase II area if PAR is 8 or greater or return to pre- procedure baseline. The post - procedure orders will be as directed. * If PAR score is less than 8 or not return to pre-procedure baseline then patient will follow Phase I monitoring till PAR is reached for Phase II. The Phase I may be done in procedure room or may call to secure a Phase I area. * If naloxone or flumazenil are used for reversal, hold in Phase I for an additional 60 -120 minutes before discharge to Phase II. Please call the Sedation Physician to re-evaluate and complete post-note for discharge to Phase II area. Do NOT discharge from procedure sedation or Phase 1 until post- sedation evaluation note is complete by procedure /sedation MD Sedation Discharge Instructions to be given to the patient at discharge to home. The patient required cardioversion as she become hemodynamically borderline and stable, the patient did require sedation with 50 mics of fentanyl IV and 2 mg of Versed in increments of 25 mics and 1 mg. After the patient was sedated, the patient was placed on 50% of oxygen and underwent cardioversion with 150 J, converted to sinus rhythm. Postprocedure, the patient had brief. Of apnea requiring an Ambu bagging, noted the oxygen was not on briefly and the patient recovered very quickly. Oral airway was used, Ambu bag was used for 5 minutes, the patient woke up and did require 2 doses of Romazicon 0.2 mg, the patient was placed on oxygen mask at 40%, O2 saturation is unreliable in this patient who had intracardiac shunt. The patient was fully awake following commands and answering questions. Mild nausea was noted. No immediate complications. Patient was placed on the BiPAP and taken off the BiPAP within the hour. The patient dimension, was monitored in the ICU in bed #3 with ICU style of monitoring. The patient also was consented for the procedure as it was emergent and risk and benefit explained in detail to her and she agreed to the procedure prior to performing it.
--- NOTE | 2018-06-03 10:24 | Critical Care Progress Note ---
Critical Care Progress Note Date of Service Jun 03, 2018. Attending Dr. Alvarez Subjective The patient has been having episodes of abdominal pain with nausea in the morning. Her heart rate was in the range of 130s in a flutter. Her blood pressure was dropping to 80 systolic. O2 saturation remains unreliable but in the range of 85-90%. The patient was following commands and answering questions however she was bothered with her vague abdominal pain. The patient has tenesmus, no BM today. Objective General: Alert. nontoxic. Skin: Warm, dry, Head: Atraumatic Ears, nose, mouth and throat: Endotracheal tube present Cardiovascular: Normal peripheral perfusion Respiratory: no respiratory distress Gastrointestinal: Non distended Musculoskeletal: No deformity Physical exam of 06/02/2018 showed elderly female, does not appear to be in any respiratory distress although her O2 sat is fluctuating. No stridor, S1-S2 with systolic ejection murmur, in A. fib, occasionally she is in RVR. 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 Data has been reviewed from previous which include CAT scan from July 2017 which did not show any evidence of pulmonary fibrosis, it showed at that time infiltrates. Patient does have mild COPD changes. The patient also has an echocardiogram done on May 31, 2018 2 days ago which showed EF of 55% but severely dilated RV with pulmonary pressure in the range of 50s. Chest x-ray was reviewed also on multiple occasions which showed cardiomegaly with engorged pulmonary artery. There is a cardiac device noted on the chest x-ray. 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 Her physical exam on 06/03/2018 showed low blood pressure, tachycardia with a flutter, O2 saturation is 85-92%. Vague abdominal pain although the abdomen is soft. No rebound. S1-S2 tachycardic. 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 No edema. Her labs also were reviewed which showed elevated BUN/ creatinine likely from diuresis. Her INR still subtherapeutic. Assessment & Plan 1. Acute on chronic hypoxic respiratory failure. 2. No evidence of pulmonary fibrosis. 3. COPD. 4. Right sided heart failure. 5. History of ASD repair over 20 years ago. 6. A flutter with RVR and borderline hemodynamic instability today requiring cardioversion with good results. 7. CKD, stage IV. Plan: 1. The patient underwent cardioversion, sedation was performed by the critical care team, cardioversion performed by Dr. Lay, appreciate his input. The patient received conscious sedation which required reversal with Romazicon 2 doses. Did well and placed briefly on Ambu bag as well as BiPAP. Patient recovered very quickly after sedation. After 1 shock of 150 J, the patient converted to sinus rhythm. With variable rate. Blood pressure recovered to 128 /59. 2. No evidence of COPD exacerbation, I would keep the patient off antibiotics and systemic steroids. 3. Dobutamine was discontinued, agree with Dr. Lay, the patient has long- standing pulmonary hypertension with most recent PAS of 63. 4. I will stop the Lasix due to increase in the BUN/creatinine at the moment. 5. Continue with Coumadin. Follow the INR. 6. Titrate O2 and keep O2 sat above than 85%. 7. Metoprolol for rate control. 8. Consult cardiology to Dr. Lay appreciated. 9. The patient is DNR and DNI per report. 10. We will monitor the patient in the ICU post cardioversion. 11. Continue short acting bronchodilators. As well as long-acting beta agonist. 12. Fleet enema. 13. If the patient does not have a bowel movement and continue to have vague abdominal pain, I will proceed with noncontrast CAT scan of the abdomen concerns for mesenteric ischemia. 14. Obtain lactic acid. Case discussed with the staff on rounds and details, critical care time spent with the patient was 45 minutes including reviewing the records. Consults & Procedures Consultants: Neurology Procedures: Intubation 05/30/2018 Data Medications: Current Inpatient Medications Medications (Trade) Dose Ordered Sig/Mehdi Route Start Time Stop Time Status Last Admin Dose Admin Ondansetron HCl (Zofran Inj) 4 mg Q6H PRN IV 05/31/18 00:15 06/30/18 00:14 06/03/18 07:39 4 MG Albuterol (Ventolin Hfa Inhaler) 2 puffs Q6 PRN INH 05/31/18 00:45 06/30/18 00:44 Glucose (Glucose 40% Gel) 15-30 GRAMS 15 GRAMS... UD PRN PO 05/31/18 09:15 06/30/18 09:14 Glucose (Glucose Chew Tab) 4-8 Tablets 4 Tabl... UD PRN PO 05/31/18 09:15 06/30/18 09:14 Dextrose (Dextrose 50% 50ML Syringe) 25-50ML 25ML FOR ... UD PRN IV 05/31/18 09:15 06/30/18 09:14 Glucagon (Glucagon Inj) 1 mg UD PRN SQ 05/31/18 09:15 06/30/18 09:14 Carbohydrates (Carbohydrates For Hypoglycemia) 15-30 GRAMS 15 grams if BSG 54-69... UD PRN PO 05/31/18 09:15 06/30/18 09:14 Pantoprazole Sodium (Protonix Tab) 40 mg QAM PO 06/02/18 09:00 07/02/18 08:59 06/02/18 08:53 40 MG Levothyroxine Sodium (Synthroid Tab) 75 mcg DAILYBB PO 06/02/18 09:00 07/02/18 08:59 06/03/18 06:08 75 MCG Warfarin Sodium (Coumadin Tab) 2.5 mg DAILY@16 PO 06/02/18 16:00 07/02/18 15:59 06/02/18 16:10 2.5 MG Metoprolol Succinate (Toprol Xl Tab) 25 mg QAM PO 06/03/18 09:00 07/03/18 08:59 Insulin Aspart (novoLOG ASPART) SLIDING SCALE If C... ACHS SC 06/02/18 16:00 07/02/18 15:59 06/02/18 16:56 2 UNITS Acetaminophen (Tylenol Tab) 650 mg Q6H PRN PO 06/02/18 18:45 07/02/18 18:44 06/02/18 18:51 650 MG Midazolam HCl (Versed Inj) 5 mg TODAY@0845 IV 06/03/18 08:45 06/03/18 12:00 06/03/18 09:13 2 MG Fentanyl Citrate (Fentanyl Inj) 100 mcg TODAY@0845 IV 06/03/18 08:45 06/03/18 12:00 06/03/18 09:12 50 MCG Atropine Sulfate (Atropine Sulfate 0.1mg/ml Inj) 0.5 mg NOW PRN IV 06/03/18 09:00 06/03/18 11:00 Vital Signs: Date Time Temp Pulse Resp B/P (MAP) Pulse Ox O2 Delivery O2 Flow Rate FiO2 06/03/18 09:18 89 12 131/70 87 Oxymask 15.0 06/03/18 09:13 58 12 125/66 87 Oxymask 15.0 06/03/18 09:08 85 12 125/67 85 Oxymask 15.0 06/03/18 09:03 88 12 120/69 88 Oxymask 10.0 06/03/18 08:58 86 12 117/66 77 Ambu-Bag 15.0 06/03/18 08:54 58 12 67/43 64 BiPAP 5.0 60 06/03/18 08:52 77 10 79/49 78 Nasal Cannula 5.0 06/03/18 08:49 125 18 95/62 90 Nasal Cannula 5.0 06/03/18 06:00 126 19 101/76 (84) 95 BiPAP 06/03/18 05:10 124 93 60 06/03/18 05:00 124 19 110/79 (89) 91 BiPAP 06/03/18 04:00 36.3 125 21 107/71 (83) 94 BiPAP 06/03/18 03:00 123 17 102/64 (77) 93 BiPAP 06/03/18 02:00 122 18 110/69 (83) 94 BiPAP 06/03/18 01:28 118 93 60 06/03/18 01:00 119 30 100/66 (77) 90 Nasal Cannula 5.0 Humidified Oxygen 06/03/18 00:00 36.9 114 18 110/69 (83) 91 Nasal Cannula 5.0 Humidified Oxygen 06/02/18 23:00 113 15 113/76 (88) 92 Nasal Cannula 5.0 Humidified Oxygen 06/02/18 22:00 112 17 113/81 (92) 92 Nasal Cannula 5.0 Humidified Oxygen 06/02/18 21:00 110 20 120/87 (98) 93 Nasal Cannula 5.0 Humidified Oxygen 06/02/18 20:00 36.9 111 19 129/82 (98) 92 Nasal Cannula 5.0 Humidified Oxygen 06/02/18 20:00 Nasal Cannula 5.0 06/02/18 19:00 111 26 123/84 (97) 92 Nasal Cannula 5.0 Humidified Oxygen 06/02/18 18:00 114 22 128/80 (96) 91 Humidified Oxygen 6.0 06/02/18 16:00 36.9 118 22 113/65 (81) 90 Nasal Cannula 6.0 06/02/18 15:00 114 18 91/72 (78) 88 Nasal Cannula 6.0 06/02/18 14:00 111 18 112/71 (85) 89 Nasal Cannula 6.0 06/02/18 13:00 109 18 120/70 (87) 87 Nasal Cannula 6.0 06/02/18 11:40 36.9 120 24 126/84 (98) 89 Nasal Cannula 6.0 06/02/18 11:00 108 20 126/84 (98) 87 Nasal Cannula 6.0 Laboratory Results: Last 24 Hours Test 06/02/18 11:35 06/02/18 16:08 06/02/18 21:18 06/03/18 04:10 Bedside Glucose 177 mg/dl 187 mg/dl 85 mg/dl White Blood Count 7.97 K/uL Red Blood Count 3.96 M/uL Hemoglobin 12.7 g/dL Hematocrit 39.3 % Mean Corpuscular Volume 99.2 fL Mean Corpuscular Hemoglobin 32.1 pg Mean Corpuscular Hemoglobin Concent 32.3 g/dl Platelet Count 178 K/uL Mean Platelet Volume 12.7 fL Neutrophils (%) (Auto) 74.9 % Lymphocytes (%) (Auto) 13.4 % Monocytes (%) (Auto) 11.2 % Eosinophils (%) (Auto) 0.1 % Basophils (%) (Auto) 0.1 % Neutrophils # (Auto) 5.97 K/uL Lymphocytes # (Auto) 1.07 K/uL Monocytes # (Auto) 0.89 K/uL Eosinophils # (Auto) 0.01 K/uL Basophils # (Auto) 0.01 K/uL RDW Standard Deviation 57.0 fL RDW Coefficient of Variation 15.7 % Immature Granulocyte % (Auto) 0.3 % Immature Granulocyte # (Auto) 0.02 K/uL Prothrombin Time 27.6 SECONDS Prothromb Time International Ratio 2.7 Sodium Level 135 mmol/L Potassium Level 5.0 mmol/L Chloride Level 98 mmol/L Carbon Dioxide Level 30 mmol/L Anion Gap 7.0 mmol/L Blood Urea Nitrogen 102 mg/dl Creatinine 2.38 mg/dl Est Creatinine Clear Calc Drug Dose 15.9 ml/min Estimated GFR () 22.7 Estimated GFR (Non- 19.6 BUN/Creatinine Ratio 42.8 Random Glucose 107 mg/dl Calcium Level 9.3 mg/dl Magnesium Level 2.6 mg/dl Pro-B-Type Natriuretic Peptide 39524 pg/ml Test 06/03/18 06:31 Bedside Glucose 102 mg/dl
[2018-06-03] MEDS ORDERED: SOAP SUDS ENEMA PR PRN (10:30)
[2018-06-03] MEDS ORDERED: NURSING VERBAL MED ORDER ONE ×2 (10:30→11:15)
--- NOTE | 2018-06-03 10:56 | CARDIOVERSION ---
DATE OF OPERATION: 06/03/2018 SYNCHRONIZED ELECTRICAL CARDIOVERSION REPORT INDICATIONS: Atrial flutter with poorly tolerated ventricular response rate. CLASSIFICATION: Urgent. PROCEDURE: After procedure and risks were explained in detail to the patient, informed consent was obtained. Patient having hypotension, nausea, chest pain in the setting of atrial flutter with rapid ventricular response with prior documentation and poor tolerance. Sedation was provided via critical care staff with continuous heart rate, blood pressure and oxygen saturation monitoring. Synchronized electrical cardioversion was performed using single 150 joules biphasic shock with successful conversion to sinus rhythm. Post-procedure, patient aroused. EKG pending. We will continue preprocedural medications, metoprolol succinate 25 mg per day, dose to be administered this morning. I attest to the content of the Intraoperative Record and any orders documented therein. Any exceptions are noted below. Addendum: Due to reduced heart rate post procedure metoprolol succinate was reduced to 12.5 mg p.o. today MTDD
--- NOTE | 2018-06-03 11:00 | Progress Note ---
Internal Med Progress Note Date of Service: Jun 03, 2018. Provider Documentation: SUBJECTIVE: heart rate was in the range of 130s in a flutter as per IC physician and required cardioversion. Patient's heart rate now in sinus rhythm however patient reports she feels sick to her stomach. ICU physician aware and may image patient to investigate whether there is presence of mesenteric ischemia. Patient denies chest pain or acute shortness of breath. She has basin at bedside. But no vomiting OBJECTIVE: General Appearance: as above feeling generalized malaise Head: normocephalic, Atraumatic Eyes: normal inspection Neck: supple, Trachea midline Respiratory/Chest:on oxygen mask, fair air entry, no wheezing Cardiovascular: sinus bradycardia Abdomen/GI:Soft: no focal tenderness on palpation but patient reports abdominal discomfort generalized, Bowel sounds present Extremities/Musculoskelatal:normal inspection, no edema Neurologic/Psych: awake and alert, verbal ASSESSMENT & PLAN: Acute on chronic hypoxic respiratory failure (multifactorial causes): History of ASD repair over 20 years ago. Right sided heart failure ; Diastolic CHF, Pulmonary HTN (chronic most recent PAS of 63.); Chronic cor Pulmonale; echocardiogram done on May 31, 2018 which showed EF of 55% but severely dilated RV with pulmonary pressure in the range of 50s No evidence of pulmonary fibrosis. COPD (No evidence of COPD exacerbation and as per ICU physician I would keep the patient off antibiotics and systemic steroids) Continue short acting bronchodilators, Titrate O2 and keep O2 sat above than 85% . H/O Paroxysmal atrial fibrillation: Supratherapeutic INR on admission, now with INR stable at 2.7 and to continue coumadin Dobutamine discontinued A flutter with RVR and borderline hemodynamic instability on 06/03/18 requiring cardioversion, Metoprolol for rate control. stop the Lasix due to increase in the BUN/creatinine Cardiology following the patient Monitor blood pressure Acute kidney injury on CKD IV: Baseline Cr around 2 Cr:2.38 today stop the Lasix due to increase in the BUN/creatinine seizure like activity As per family, she had an episode of seizure in the past EEG 06/02/18: This electroencephalogram reveals evidence for mild generalized highly nonspecific encephalopathy without lateralizing features and without associated potentially epileptogenic activity Appreciate Neurology recommendations R/O Gabapentin toxicity: Levels pending Hypothyroidism: Continue Synthroid Abdominal Pain ICU physician considering abdominal imaging GERD: continue PPI H/O DM II: Diet Controlled A1C:6.0 Continue ISS Monitor BGs DVT Px: SCDs INR therapeutic Code status: DNR/DNI Disposition: Monitor in ICU Vital Signs: Date Time Temp Pulse Resp B/P (MAP) Pulse Ox O2 Delivery O2 Flow Rate FiO2 06/03/18 11:00 53 14 125/57 (79) 88 Oxymask 10.0 06/03/18 10:20 62 16 128/58 85 Mask 15.0 06/03/18 10:10 51 16 130/59 84 Mask 15.0 06/03/18 10:00 54 16 105/64 85 Mask 15.0 06/03/18 09:50 83 14 119/86 85 Mask 15.0 06/03/18 09:40 61 14 130/62 85 Mask 15.0 06/03/18 09:30 67 14 138/73 86 Mask 15.0 06/03/18 09:20 89 14 131/70 88 Mask 15.0 06/03/18 09:18 89 12 131/70 87 Oxymask 15.0 06/03/18 09:13 58 12 125/66 87 Oxymask 15.0 06/03/18 09:08 85 12 125/67 85 Oxymask 15.0 06/03/18 09:03 88 12 120/69 88 Oxymask 10.0 06/03/18 08:58 86 12 117/66 77 Ambu-Bag 15.0 06/03/18 08:54 58 12 67/43 64 BiPAP 5.0 60 06/03/18 08:52 77 10 79/49 78 Nasal Cannula 5.0 06/03/18 08:49 125 18 95/62 90 Nasal Cannula 5.0 06/03/18 08:23 16 86/58 (67) 81 Nasal Cannula 5.0 06/03/18 08:00 Nasal Cannula 5.0 06/03/18 07:57 124 17 84/69 (74) 88 Nasal Cannula 5.0 06/03/18 07:49 123 20 90/64 (73) 88 Nasal Cannula 5.0 06/03/18 07:31 37.0 127 24 101/64 (76) Nasal Cannula 5.0 06/03/18 06:00 126 19 101/76 (84) 95 BiPAP 06/03/18 05:10 124 93 60 06/03/18 05:00 124 19 110/79 (89) 91 BiPAP 06/03/18 04:00 36.3 125 21 107/71 (83) 94 BiPAP 06/03/18 03:00 123 17 102/64 (77) 93 BiPAP 06/03/18 02:00 122 18 110/69 (83) 94 BiPAP 06/03/18 01:28 118 93 60 06/03/18 01:00 119 30 100/66 (77) 90 Nasal Cannula 5.0 Humidified Oxygen 06/03/18 00:00 36.9 114 18 110/69 (83) 91 Nasal Cannula 5.0 Humidified Oxygen 06/02/18 23:00 113 15 113/76 (88) 92 Nasal Cannula 5.0 Humidified Oxygen 06/02/18 22:00 112 17 113/81 (92) 92 Nasal Cannula 5.0 Humidified Oxygen 06/02/18 21:00 110 20 120/87 (98) 93 Nasal Cannula 5.0 Humidified Oxygen 06/02/18 20:00 36.9 111 19 129/82 (98) 92 Nasal Cannula 5.0 Humidified Oxygen 06/02/18 20:00 Nasal Cannula 5.0 06/02/18 19:00 111 26 123/84 (97) 92 Nasal Cannula 5.0 Humidified Oxygen 06/02/18 18:00 114 22 128/80 (96) 91 Humidified Oxygen 6.0 06/02/18 16:00 36.9 118 22 113/65 (81) 90 Nasal Cannula 6.0 06/02/18 15:00 114 18 91/72 (78) 88 Nasal Cannula 6.0 06/02/18 14:00 111 18 112/71 (85) 89 Nasal Cannula 6.0 06/02/18 13:00 109 18 120/70 (87) 87 Nasal Cannula 6.0 06/02/18 11:40 36.9 120 24 126/84 (98) 89 Nasal Cannula 6.0 Lab Results: Results Past 24 Hours Test 06/02/18 11:35 06/02/18 16:08 06/02/18 21:18 06/03/18 04:10 Range/Units Bedside Glucose 177 187 85 70-90 mg/dl White Blood Count 7.97 4.8-10.8 K/uL Red Blood Count 3.96 4.2-5.4 M/uL Hemoglobin 12.7 12.0-16.0 g/dL Hematocrit 39.3 37-47 % Mean Corpuscular Volume 99.2 80-100 fL Mean Corpuscular Hemoglobin 32.1 25-34 pg Mean Corpuscular Hemoglobin Concent 32.3 32-36 g/dl Platelet Count 178 130-400 K/uL Mean Platelet Volume 12.7 7.4-10.4 fL Neutrophils (%) (Auto) 74.9 % Lymphocytes (%) (Auto) 13.4 % Monocytes (%) (Auto) 11.2 % Eosinophils (%) (Auto) 0.1 % Basophils (%) (Auto) 0.1 % Neutrophils # (Auto) 5.97 1.4-6.5 K/uL Lymphocytes # (Auto) 1.07 1.2-3.4 K/uL Monocytes # (Auto) 0.89 0.11-0.59 K/uL Eosinophils # (Auto) 0.01 0-0.5 K/uL Basophils # (Auto) 0.01 0-0.2 K/uL RDW Standard Deviation 57.0 36.4-46.3 fL RDW Coefficient of Variation 15.7 11.5-14.5 % Immature Granulocyte % (Auto) 0.3 % Immature Granulocyte # (Auto) 0.02 0.00-0.02 K/uL Prothrombin Time 27.6 9.0-12.0 SECONDS Prothromb Time International Ratio 2.7 0.9-1.1 Sodium Level 135 136-145 mmol/L Potassium Level 5.0 3.5-5.1 mmol/L Chloride Level 98 98-107 mmol/L Carbon Dioxide Level 30 21-32 mmol/L Anion Gap 7.0 3-11 mmol/L Blood Urea Nitrogen 102 7-18 mg/dl Creatinine 2.38 0.60-1.20 mg/dl Est Creatinine Clear Calc Drug Dose 15.9 ml/min Estimated GFR () 22.7 Estimated GFR (Non- 19.6 BUN/Creatinine Ratio 42.8 10-20 Random Glucose 107 70-99 mg/dl Calcium Level 9.3 8.5-10.1 mg/dl Magnesium Level 2.6 1.8-2.4 mg/dl Pro-B-Type Natriuretic Peptide 75421 0-900 pg/ml Test 06/03/18 06:31 Range/Units Bedside Glucose 102 70-90 mg/dl
[2018-06-03] MEDS ORDERED: METOPROLOL SUCC 25MG EXT REL TAB PO ONE (11:30)
[2018-06-03] MEDS ORDERED: SODIUM CHLORIDE 0.9% 1000ML 250 ML IV SCH (15:15)
[2018-06-03] MEDS: WARFARIN SOD 2.5 MG TAB PO SCH (15:53)
--- NOTE | 2018-06-03 16:05 | DIAGNOSTIC IMAGING REPORT ---
ABDOMEN AND PELVIS CT WITHOUT CONTRAST CT DOSE: 471.85 mGy.cm HISTORY: Acute generalized abdominal pain abdominal pain with poor cardiac output, ? mesenteric eschemia TECHNIQUE: Multiaxial CT images of the abdomen and pelvis were performed without contrast. A dose lowering technique was utilized adhering to the principles of ALARA. COMPARISON STUDY: CT abdomen and pelvis 05/23/2018. FINDINGS: Small right and trace left pleural effusions with bibasilar consolidation. Calcifications of the tracheobronchial tree are noted. No pneumatosis or pneumoperitoneum. The imaged inferior cardiac chambers are moderately enlarged. Coronary arterial calcifications are noted. Partially imaged leads are noted within the epicardial tissues anterior to the heart. Marginal nodularity of the liver redemonstrated with trace volume of abdominal and pelvic ascites. Spleen and right adrenal gland are unremarkable. Mild nodular thickening of the left adrenal gland. Mild to moderate generalized pancreatic atrophy. Cholelithiasis without definite CT evidence of acute cholecystitis. No intrahepatic biliary ductal dilation identified. Absent right kidney. Mild perinephric stranding about the left kidney. No left-sided renal calculi or obstructive uropathy. Decompressed bladder with Watson catheter in place. Air within the nondependent bladder lumen suggests sequela of instrumentation. Mild perivesicular stranding. Cystic lesion about the right adnexum is again seen, 2.1 cm. The uterus and left adnexum appear unremarkable. Moderate calcification of the aorta and iliac vasculature. No pathologically enlarged lymph nodes are identified. Surgical clips of the right inguinal region are noted. Small sliding-type hiatal hernia. No bowel obstruction or focal bowel wall thickening identified. Colonic diverticulosis without diverticulitis. Mild body wall edema. Bones appear mildly demineralized. Prior laminectomy with discectomy and posterior interbody florentin and screw fusion at L3-L5. Unchanged 5 mm anterolisthesis L4 on L5 with otherwise satisfactory alignment. No evidence of hardware fracture. IMPRESSION: 1. Cirrhotic morphology of the liver with trace abdominal pelvic ascites . 2. Cholelithiasis without CT evidence of acute cholecystitis. 3. No bowel obstruction or focal bowel wall thickening. 4. Colonic diverticulosis without diverticulitis. 5. Small right and trace left pleural effusions with bibasilar consolidative opacities suggesting atelectasis or pneumonia. 6. Additional findings as above. Electronically signed by: Naman Naqvi M.D. 06/03/2018 4:03 PM Dictated Date/Time: 06/03/2018 3:54 PM
[2018-06-03] MEDS: SODIUM CHLORIDE 0.9% 1000ML 1,000 ML IV SCH ×2 (18:30→19:12)
[2018-06-04] VITALS (16 sets, daily range): BP systolic 112–141; BP diastolic 53–75; PULSE 43–63; TEMP 36.4–36.9; O2SAT 85–97
[2018-06-04 04:53] LABS: BASO % 0.3 %; BASO ABS # 0.02 K/uL (0-0.2); EOS % 0.7 %; EOS ABS # 0.04 K/uL (0-0.5); HEMATOCRIT 36.4 % (37-47); HEMOGLOBIN 11.7 g/dL (12.0-16.0); IG# 0.01 K/uL (0.00-0.02); LYMPH % 23.5 %; MEAN CORPUSCULAR HEMOGLOBIN 32.1 pg (25-34); MEAN CORPUSCULAR HGB CONC 32.1 g/dl (32-36); MEAN PLATELET VOLUME 12.1 fL (7.4-10.4); MONO % 11.1 %; MONO ABS # 0.66 K/uL (0.11-0.59); NEUT % 64.2 %; NEUT ABS # 3.82 K/uL (1.4-6.5); PLATELET COUNT 150 K/uL (130-400); RED CELL DISTRIBUTION WIDTH CV 15.6 % (11.5-14.5); RED CELL DISTRIBUTION WIDTH SD 57.3 fL (36.4-46.3); WHITE BLOOD COUNT 5.95 K/uL (4.8-10.8)
[2018-06-04 05:21] LABS: CALCIUM 8.6 mg/dl (8.5-10.1); CREATININE 2.63 mg/dl (0.60-1.20)
[2018-06-04] MEDS: LEVOTHYROXINE 75 MCG TAB PO SCH (05:51)
[2018-06-04] MEDS: INSULIN ASPART 100 UNITS/ML 3 ML PEN SC SCH ×4 (06:03→20:30)
[2018-06-04] MEDS: PANTOprazole SOD 40 MG TAB PO SCH (07:33)
[2018-06-04] MEDS: ACETAMINOPHEN 325 MG TAB PO PRN (09:50)
--- NOTE | 2018-06-04 10:27 | Palliative Care Consultation ---
Consultation Date of Consultation: Jun 04, 2018. Requesting Physician: Dr. Alvarez Attending Physician: Dr. 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 In ED, she was hypoxic and required Bipap. She became somnolent. Her ex- (Joe, who is still POA) was at bedside and stated that patient's living will states she is DNR/DNI, but he was okay with short- term intubation. She was intubated and sent to ICU. CXR showed bilateral pleural effusions and congestion, creatinine 2, INR 3.4. Neurology was consulted , EEG performed and showed nonspecific encephalopathy with no evidence of epileptic activity. She is now extubated and mentating/oxygenating. Yesterday, she underwent cardioversion for afib with RVR-- cardiology is following. Creatinine is worsening and nephrology is now consulted. CT abd/pelvis completed yesterday due to c/o abdominal pain which showed cirrhotic morphology of liver with trace ascites, no obstruction, as well as other findings listed in report. Patient is somewhat stabilized. Given her many comorbidities and chronic illness, palliative care is consulted to establish goals of care. I met with the patient in room 103. She is awake, alert and oriented. Sitting up in chair at bedside on nasal cannula in no distress. She still c/o mild belly pain in epigastric area. Patient appears older than 72, appears chronically ill. We discussed her medical conditions. Patient has little understanding at this point of her chronic illnesses-- difficult to tell if this is due to her acute illness and being in ICU vs. her baseline. She states that she does have a living will which states in case of terminal condition, she does not want life prolonging measures; and that if something like this happened again, she would not want to be put back on ventilator. Patient's goal is to eventually get to an apartment and live independently. We talked about the possibility that that may not be an option or a realistic halfway goal. For now, she wants to continue on with full treatment. I will follow along during hospital stay. 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 and explanation due to bacteremia and possible vegetation Obstructive sleep apnea, non-compliance with Bipap Htn HLD DM Chronic respiratory failure on home oxygen at 3LNC Afib/Aflutter Hypothyroidism Social History Smoking Status: Former Smoker History of Alcohol Use: No Drug Use: none Marital Status: single Housing Status: lives with family Occupation Status: disabled Review of Systems Constitutional: + weakness, No fever, No chills ENT: No trouble swallowing Respiratory: + cough, + wheezing, + dyspnea on exertion, No sputum, No shortness of breath Cardiac: No chest pain, No edema Abdomen: + pain, No nausea, No vomiting Female : No problem reported (Watson in place) Psychiatric: No depression symptoms, No anxiety Allergies Coded Allergies: Levofloxacin (Verified Allergy, Intermediate, HIVES, 02/25/18) Quinolones (Verified Allergy, Intermediate, HIVES, 02/25/18) Ranitidine (Verified Allergy, Intermediate, HIVES, 02/25/18) Sulfamethoxazole (Verified Allergy, Intermediate, HIVES, 02/25/18) Trimethoprim (Verified Allergy, Intermediate, HIVES, 02/25/18) Clarithromycin (Verified Allergy, Mild, HIVES, CAN TAKE ZITHROMAX W/O PROB , 02/25/18) Amoxicillin (Verified Allergy, Unknown, HIVES, 02/25/18) Omeprazole (Verified Allergy, Unknown, HAS HAD PROTONIX, 02/25/18) Medications Current Inpatient Medications Medications (Trade) Dose Ordered Sig/Mehdi Route Start Time Stop Time Status Last Admin Dose Admin Ondansetron HCl (Zofran Inj) 4 mg Q6H PRN IV 05/31/18 00:15 06/30/18 00:14 06/03/18 15:55 4 MG Albuterol (Ventolin Hfa Inhaler) 2 puffs Q6 PRN INH 05/31/18 00:45 06/30/18 00:44 Glucose (Glucose 40% Gel) 15-30 GRAMS 15 GRAMS... UD PRN PO 05/31/18 09:15 06/30/18 09:14 Glucose (Glucose Chew Tab) 4-8 Tablets 4 Tabl... UD PRN PO 05/31/18 09:15 06/30/18 09:14 Dextrose (Dextrose 50% 50ML Syringe) 25-50ML 25ML FOR ... UD PRN IV 05/31/18 09:15 06/30/18 09:14 Glucagon (Glucagon Inj) 1 mg UD PRN SQ 05/31/18 09:15 06/30/18 09:14 Carbohydrates (Carbohydrates For Hypoglycemia) 15-30 GRAMS 15 grams if BSG 54-69... UD PRN PO 05/31/18 09:15 06/30/18 09:14 Pantoprazole Sodium (Protonix Tab) 40 mg QAM PO 06/02/18 09:00 07/02/18 08:59 06/04/18 07:33 40 MG Levothyroxine Sodium (Synthroid Tab) 75 mcg DAILYBB PO 06/02/18 09:00 07/02/18 08:59 06/04/18 05:51 75 MCG Warfarin Sodium (Coumadin Tab) 2.5 mg DAILY@16 PO 06/02/18 16:00 07/02/18 15:59 Future Hold 06/03/18 15:53 2.5 MG Insulin Aspart (novoLOG ASPART) SLIDING SCALE If C... ACHS SC 06/02/18 16:00 07/02/18 15:59 06/02/18 16:56 2 UNITS Acetaminophen (Tylenol Tab) 650 mg Q6H PRN PO 06/02/18 18:45 07/02/18 18:44 06/04/18 09:50 650 MG Miscellaneous (Soap Suds Enema) 1 ea Q2HWA PRN [place] 06/03/18 10:30 07/03/18 10:29 06/03/18 11:59 1 EA Meclizine HCl (Antivert Tab) 12.5 mg TID PO 06/04/18 14:00 07/04/18 13:59 UNV Physical Exam Date Time Temp Pulse Resp B/P (MAP) Pulse Ox O2 Delivery O2 Flow Rate FiO2 06/04/18 10:00 58 18 118/59 (78) 88 Nasal Cannula 5.0 06/04/18 09:00 54 16 122/70 (87) 85 Nasal Cannula 5.0 06/04/18 08:00 36.7 54 18 122/75 (91) 88 Nasal Cannula 5.0 06/04/18 08:00 88 Nasal Cannula 5.0 06/04/18 06:01 53 15 138/59 (85) 87 Nasal Cannula 5.0 06/04/18 05:16 53 91 50 06/04/18 05:00 57 20 138/64 (88) 86 06/04/18 04:01 36.7 57 19 112/53 (72) 89 BiPAP 50 06/04/18 03:01 56 16 120/61 (80) 89 BiPAP 50 06/04/18 02:04 62 89 50 06/04/18 02:00 63 16 128/66 (86) 06/04/18 01:00 53 11 126/63 (84) 88 BiPAP 50 06/04/18 00:00 36.9 50 12 132/68 (89) 87 BiPAP 50 06/03/18 23:01 60 15 112/55 (74) 86 BiPAP 50 64 06/03/18 22:27 50 88 50 06/03/18 22:01 59 20 155/67 (96) 86 BiPAP 50 66 06/03/18 21:45 48 87 35 06/03/18 21:01 57 15 147/70 (95) 90 BiPAP 60 65 06/03/18 20:42 58 88 50 06/03/18 20:01 36.4 46 15 146/56 (86) 90 Nasal Cannula 5.0 65 06/03/18 20:00 Nasal Cannula 5.0 06/03/18 19:01 60 19 131/79 (96) 89 Nasal Cannula 5.0 06/03/18 18:00 51 16 92/77 (82) 88 Nasal Cannula 5.0 51 06/03/18 17:00 66 18 120/66 (84) 86 Nasal Cannula 5.0 66 06/03/18 16:00 36.7 56 17 148/77 (100) 85 Nasal Cannula 5.0 56 06/03/18 16:00 85 Nasal Cannula 5.0 06/03/18 14:00 50 14 112/54 (73) 89 Nasal Cannula 5.0 06/03/18 13:00 51 13 131/60 (83) 88 Nasal Cannula 5.0 06/03/18 12:00 36.4 74 16 126/60 (82) 85 Nasal Cannula 5.0 06/03/18 11:00 53 14 125/57 (79) 88 Oxymask 10.0 General Appearance: + obese, + pertinent finding (chronically ill appearing) ENT: hearing grossly normal Neck: supple, no JVD Respiratory: no respiratory distress, no accessory muscle use, + decreased breath sounds (air exchange extremely diminished in bilateral bases), + wheezing (expiratory) Cardiovascular: regular rate, rhythm, + pertinent finding (weak pedal pulses) Abdomen: normal bowel sounds, soft, + distended (obesely distended), + tenderness (mild tenderness over epigastrum) Neurologic/Psychiatric: alert, normal mood/affect, oriented x 3 Skin: + pertinent finding (purple discoloration of bilateral lower extremities) Laboratory Results Last 24 Hours Test 06/03/18 11:34 06/03/18 16:53 06/03/18 21:10 06/04/18 04:10 Bedside Glucose 115 mg/dl 105 mg/dl 83 mg/dl White Blood Count 5.95 K/uL Red Blood Count 3.64 M/uL Hemoglobin 11.7 g/dL Hematocrit 36.4 % Mean Corpuscular Volume 100.0 fL Mean Corpuscular Hemoglobin 32.1 pg Mean Corpuscular Hemoglobin Concent 32.1 g/dl Platelet Count 150 K/uL Mean Platelet Volume 12.1 fL Neutrophils (%) (Auto) 64.2 % Lymphocytes (%) (Auto) 23.5 % Monocytes (%) (Auto) 11.1 % Eosinophils (%) (Auto) 0.7 % Basophils (%) (Auto) 0.3 % Neutrophils # (Auto) 3.82 K/uL Lymphocytes # (Auto) 1.40 K/uL Monocytes # (Auto) 0.66 K/uL Eosinophils # (Auto) 0.04 K/uL Basophils # (Auto) 0.02 K/uL RDW Standard Deviation 57.3 fL RDW Coefficient of Variation 15.6 % Immature Granulocyte % (Auto) 0.2 % Immature Granulocyte # (Auto) 0.01 K/uL Prothrombin Time 30.8 SECONDS Prothromb Time International Ratio 3.0 Sodium Level 139 mmol/L Potassium Level 5.0 mmol/L Chloride Level 101 mmol/L Carbon Dioxide Level 28 mmol/L Anion Gap 10.0 mmol/L Blood Urea Nitrogen 110 mg/dl Creatinine 2.63 mg/dl Est Creatinine Clear Calc Drug Dose 14.5 ml/min Estimated GFR () 20.1 Estimated GFR (Non- 17.3 BUN/Creatinine Ratio 41.6 Random Glucose 63 mg/dl Calcium Level 8.6 mg/dl Magnesium Level 2.6 mg/dl Test 06/04/18 05:53 06/04/18 08:26 Bedside Glucose 79 mg/dl Lactic Acid Level 1.0 mmol/L Assessment & Plan Problem list: Abdominal pain Weakness Respiratory failure- improved Right sided and diastolic heart failure Goals of care Palliative care recs: -DNR/DNI. Patient does not want to be reintubated. -Abdominal pain is improved from yesterday, but still there. Patient states there are no precipitating factors. She does not feel she needs pain medication at this time. -Recommend PT/OT as patient's goal is to be independent. -Uncertain of long-term goals, especially related to her medical care. She is from [facility] and plan currently is for her to return there. -I will continue to follow during hospitalization and be of assistance in any way I can. POLST form would be helpful prior to discharge since patient wishes to be DNR/DNI. -Does have living will on chart which states at end-stage, she does not want life-prolonging measures. Thank you kindly for this consult. Total time spent 55 minutes with >50% of time spent at bedside with patient counseling and discussing goals of care as well as medical conditions.
[2018-06-04] MEDS ORDERED: METOPROLOL SUCC 25MG EXT REL TAB PO ONE (11:33)
[2018-06-04] MEDS: ONDANSETRON INJ 2 MG/ML 2 ML VIAL IV PRN (11:57)
--- NOTE | 2018-06-04 12:18 | PROGRESS NOTE ---
DATE: 06/04/2018 The patient seen and examined. Chart, medications, telemetry reviewed. SUBJECTIVE: She was awakened from sleep and startled, but notes no complaints. Notes bowel function appears to be improving somewhat, was able to drink and take medications this morning without difficulty. Notes no dizziness or lightheadedness. She has had no further arrhythmias. OBJECTIVE: VITAL SIGNS: Heart rate is 58, blood pressure is 118/59, O2 saturations are marginal at 88% on 5 liters nasal cannula. HEENT: Normocephalic and atraumatic. NECK: Thick. There is no distinct jugular venous distention. Examination limited. LUNGS: Reveal diminished breath sounds diffusely. CARDIOVASCULAR: Regular. Grade 1/6 systolic murmur. No diastolic murmur. ABDOMEN: Obese, soft. EXTREMITIES: Without cyanosis or clubbing. There is trace to 1+ pedal edema. DATA: EKG post-cardioversion demonstrated sinus bradycardia with right bundle branch, left anterior fascicular block, unchanged from prior studies. LABORATORY STUDIES: White cell count is 5.9, hemoglobin is 11.7, platelet count is 150,000. Sodium is 139, potassium is 5.0, chloride is 101, bicarbonate is 28, BUN is 110, creatinine is 2.63. INR is 3.0. IMPRESSION: Very complex 72-year-old female with longstanding right heart failure, mixed etiology with marginal compensation, hospitalized with acute respiratory failure. Course complicated by paroxysmal and persistent atrial flutter. Yesterday, she underwent synchronized electrical cardioversion successfully. PLAN: Today, we will resume Toprol-XL a very low dose at 12.5 mg per day. Blood pressures appear stable currently. In the past, she has been on low-dose hydralazine at 10 mg twice per day as well as significant dosing of diuretic. We likely would resume Bumex in a.m. depending on renal function. No significant volume overload currently though patient is certainly at risk.
[2018-06-04] MEDS: MECLIZINE HCL 12.5 MG TAB PO SCH ×2 (14:03→19:57)
--- NOTE | 2018-06-04 17:27 | Nephrology Consultation ---
Nephrology Consultation Date of Consultation: Jun 04, 2018. Attending Physician: Dr. Olson Requesting Physician: Dr. Alvarez Reason for Consultation: worsening kidney function History of Present Illness 72 year old female with CKD stage 4 d/t HTN and solitary kidney status with baseline creatinine in 2018 2.0-2.2 who presented from [facility] on 05/31 after a fall w / possible seizures vs hypoxia-induced neurologic complaints on whom we are being consulted for worsening renal function. Pt was intubated on day of admisison after failing bipap. CXR with bilateral pleural effusions and congestion and patient was given lasix 40mg IV, then placed on bumex 1mg IV q 24 x 3 days as well during admission. extubated 06/01/18. Also with afib/aflutter with successful electrocardioversion 06/03/18. During admission with intermittent periods of both high and low BP. also with significant periods of hypoxia. She was moved out of the ICU on 06/04; on evaluation first by renal physician and by PA, patient is resting comfortably and arousable but unable to give adequate responses to questions. She is on O2 5L. her admission creatinine was at baseline; it is trending up to 2.6 today, was 2.4 yesterday. Past Medical/Surgical History Medical Problems: Acute kidney injury Status: Acute Acute respiratory failure with hypoxia Status: Acute Atrial flutter Status: Acute CHF (congestive heart failure) Status: Acute CHF exacerbation Status: Acute Closed head injury Status: Acute COPD exacerbation Status: Acute Fall Status: Acute Hyperkalemia Status: Acute Hypoxia Status: Acute Lower extremity edema Status: Acute Peripheral edema Status: Acute Seizure Status: Acute Past medical and surgical history significant for right-sided heart failure, diastolic CHF, pulmonary hypertension, obstructive sleep apnea not adherent w/ bipap, COPD, chronic respiratory failure on 3lt oxygen, h/o seizure in past, large atrial septal defect s/p patch 2007, h/o bacteremia from pacer wires; history of AFib, atrial flutter status post ablation, chronic kidney disease stage IV w/ baseline creatinine 2.0-2.2 in 2018; Andrew inhibitor intolerance, hypertension, hyperlipidemia, iron deficiency anemia, osteoarthritis, s/p right nephrectomy, partial thyroidectomy and tonsillectomy. Family History Heart disease Hypertension Lung disease Social History Smoking Status: Former Smoker Alcohol Use: none Drug Use: none Marital Status: single Housing Status: alf, other Occupation Status: disabled Allergies Coded Allergies: Levofloxacin (Verified Allergy, Intermediate, HIVES, 02/25/18) Quinolones (Verified Allergy, Intermediate, HIVES, 02/25/18) Ranitidine (Verified Allergy, Intermediate, HIVES, 02/25/18) Sulfamethoxazole (Verified Allergy, Intermediate, HIVES, 02/25/18) Trimethoprim (Verified Allergy, Intermediate, HIVES, 02/25/18) Clarithromycin (Verified Allergy, Mild, HIVES, CAN TAKE ZITHROMAX W/O PROB , 02/25/18) Amoxicillin (Verified Allergy, Unknown, HIVES, 02/25/18) Omeprazole (Verified Allergy, Unknown, HAS HAD PROTONIX, 02/25/18) Medications Current Inpatient Medications Medications (Trade) Dose Ordered Sig/Mehdi Route Start Time Stop Time Status Last Admin Dose Admin Ondansetron HCl (Zofran Inj) 4 mg Q6H PRN IV 05/31/18 00:15 06/30/18 00:14 06/04/18 11:57 4 MG Albuterol (Ventolin Hfa Inhaler) 2 puffs Q6 PRN INH 05/31/18 00:45 06/30/18 00:44 Glucose (Glucose 40% Gel) 15-30 GRAMS 15 GRAMS... UD PRN PO 05/31/18 09:15 06/30/18 09:14 Glucose (Glucose Chew Tab) 4-8 Tablets 4 Tabl... UD PRN PO 05/31/18 09:15 06/30/18 09:14 Dextrose (Dextrose 50% 50ML Syringe) 25-50ML 25ML FOR ... UD PRN IV 05/31/18 09:15 06/30/18 09:14 Glucagon (Glucagon Inj) 1 mg UD PRN SQ 05/31/18 09:15 06/30/18 09:14 Carbohydrates (Carbohydrates For Hypoglycemia) 15-30 GRAMS 15 grams if BSG 54-69... UD PRN PO 05/31/18 09:15 06/30/18 09:14 Pantoprazole Sodium (Protonix Tab) 40 mg QAM PO 06/02/18 09:00 07/02/18 08:59 06/04/18 07:33 40 MG Levothyroxine Sodium (Synthroid Tab) 75 mcg DAILYBB PO 06/02/18 09:00 07/02/18 08:59 06/04/18 05:51 75 MCG Warfarin Sodium (Coumadin Tab) 2.5 mg DAILY@16 PO 06/02/18 16:00 07/02/18 15:59 Future Hold 06/03/18 15:53 2.5 MG Insulin Aspart (novoLOG ASPART) SLIDING SCALE If C... ACHS SC 06/02/18 16:00 07/02/18 15:59 06/02/18 16:56 2 UNITS Acetaminophen (Tylenol Tab) 650 mg Q6H PRN PO 06/02/18 18:45 07/02/18 18:44 06/04/18 09:50 650 MG Miscellaneous (Soap Suds Enema) 1 ea Q2HWA PRN NC 06/03/18 10:30 07/03/18 10:29 06/03/18 11:59 1 EA Meclizine HCl (Antivert Tab) 12.5 mg TID PO 06/04/18 14:00 07/04/18 13:59 06/04/18 14:03 12.5 MG Metoprolol Succinate (Toprol Xl Tab) 12.5 mg QAM PO 06/05/18 09:00 07/05/18 08:59 Home Meds and Scripts Medications Dose Route/Sig Max Daily Dose Days Date Category Dose Instructions Metoprolol Succinate ER (Metoprolol Succinate) 25 Mg Tabcr 25 Mg PO DAILY 05/31/18 Rx Tylenol (Acetaminophen) 325 Mg Tab 650 Mg PO Q6 PRN 05/30/18 Reported Proventil Hfa (Albuterol Sulfate) 108 Mcg/Act Aer 2 Puff INH Q6 PRN 05/30/18 Reported Nitrostat (Nitroglycerin) 0.4 Mg Sub 0.4 Mg UT PRN 05/30/18 Reported Mylanta Maximum Strength 400-400-40 mg/5Ml (Alum & Mag Hydrox-Simethicone) 1 Ciara Caira 30 Ml PO Q4 PRN 05/30/18 Reported Mucinex Ext Rel (Guaifenesin) 600 Mg Tabcr 600 Mg PO Q12 05/30/18 Reported Miralax (Polyethylene Glycol 3350) 1 Pow Pow 17 Gm PO DAILY 05/30/18 Reported Milk Of Magnesia (Magnesium Hydroxide) 30 Ml Susp 30 Ml PO PRN UD 05/30/18 Reported Fleet Enema (Sodium Phosphate/Biphosphate) Anastacia 1 Ea NC UD 05/30/18 Reported PER BOWEL PROTOCAL Dulcolax (Bisacodyl) 10 Mg Sup 1 Supp NC UD 05/30/18 Reported PER BOWEL PROTOCAL Docusate Sodium 100 Mg Cap 1 Cap PO BID 7 05/30/18 Reported Coumadin (Warfarin Sodium) 5 Mg Tab 2.5 Mg PO 2XWK 05/30/18 Reported GIVE EVERY TUES & FRI Coumadin (Warfarin Sodium) 5 Mg Tab 5 Mg PO 5XWK 05/30/18 Reported TAKE SUN, MON, WED, THUR, SAT Cepacol Sore Throat (Menthol (Mouth-Throat)) 5.4 Mg Keke 1 Keke PO Q2H PRN 05/30/18 Reported Bumex (Bumetanide) 2 Mg Tab 2 Mg PO 2XWK 05/30/18 Reported TAKE TUES & SAT Advair Diskus 250/50 60 Dose (Fluticasone Prop/Salmeterol) 1 Ea Aerp 1 Puff INH BID 05/30/18 Reported Senokot (Sennosides) 8.6 Mg Tab 17.2 Mg PO QAM 03/02/18 Reported Donepezil HCl 10 Mg Tab 10 Mg PO HS 03/02/18 Reported Bumetanide 1 Mg Tab 1 Mg PO 5XWK 03/02/18 Reported GIVE SUN, SAT, SAT, THUR,FRI Pantoprazole Sodium (Pantoprazole) 40 Mg Tab 40 Mg PO DAILY 08/11/17 Reported Azopt Oph (Brinzolamide) 1 % Ciara 1 Drop OPB BID 05/03/17 Reported Incruse Ellipta (Umeclidinium [place]) 62.5 Mcg/Inh Inh 1 Inha PO DAILY 05/03/17 Reported Proventil 0.083% 2.5MG/3ML (Albuterol Sulf) 2.5 Mg/3 Ml Nebu 2.5 Mg NEB Q6 PRN 01/09/17 Reported Levothyroxine Sodium 75 Mcg Tab 75 Mcg PO DAILY 06/08/16 Reported Hydralazine HCl 10 Mg Tab 10 Mg PO BID 06/08/16 Reported Flonase Allergy Relief (Fluticasone Propionate (Nasal)) 50 Mcg/Act Spr 1 [place] PAULIE BID 9/19/15 Reported Neurontin (Gabapentin) 300 Mg Cap 600 Mg PO BID 01/17/15 Reported Pravastatin Sodium 80 Mg Tab 80 Mg PO QPM 07/16/14 Reported Oxybutynin Chloride Er (Oxybutynin Chloride) 5 Mg Tab 5 Mg PO DAILY 07/16/14 Reported Review of Systems Constitutional: + see HPI (cooperative to requests. interview and exam limited. denies requiring anything. no CP. ), + weakness Respiratory: + shortness of breath Cardiac: + edema, No chest pain Abdomen: + nausea Musculoskeletal: No joint pain Female : No dysuria Neuro: + weakness, + problem reported ROS very limited d/t pt MS; h/o fall with tremors. family reports history of seizures. Physical Exam Date Time Temp Pulse Resp B/P (MAP) Pulse Ox O2 Delivery O2 Flow Rate FiO2 06/04/18 10:00 58 18 118/59 (78) 88 Nasal Cannula 5.0 06/04/18 09:00 54 16 122/70 (87) 85 Nasal Cannula 5.0 06/04/18 08:00 36.7 54 18 122/75 (91) 88 Nasal Cannula 5.0 06/04/18 08:00 88 Nasal Cannula 5.0 06/04/18 06:01 53 15 138/59 (85) 87 Nasal Cannula 5.0 06/04/18 05:16 53 91 50 06/04/18 05:00 57 20 138/64 (88) 86 06/04/18 04:01 36.7 57 19 112/53 (72) 89 BiPAP 50 06/04/18 03:01 56 16 120/61 (80) 89 BiPAP 50 06/04/18 02:04 62 89 50 06/04/18 02:00 63 16 128/66 (86) 06/04/18 01:00 53 11 126/63 (84) 88 BiPAP 50 06/04/18 00:00 36.9 50 12 132/68 (89) 87 BiPAP 50 06/03/18 23:01 60 15 112/55 (74) 86 BiPAP 50 64 06/03/18 22:27 50 88 50 06/03/18 22:01 59 20 155/67 (96) 86 BiPAP 50 66 06/03/18 21:45 48 87 35 06/03/18 21:01 57 15 147/70 (95) 90 BiPAP 60 65 06/03/18 20:42 58 88 50 06/03/18 20:01 36.4 46 15 146/56 (86) 90 Nasal Cannula 5.0 65 06/03/18 20:00 Nasal Cannula 5.0 06/03/18 19:01 60 19 131/79 (96) 89 Nasal Cannula 5.0 06/03/18 18:00 51 16 92/77 (82) 88 Nasal Cannula 5.0 51 06/03/18 17:00 66 18 120/66 (84) 86 Nasal Cannula 5.0 66 06/03/18 16:00 36.7 56 17 148/77 (100) 85 Nasal Cannula 5.0 56 06/03/18 16:00 85 Nasal Cannula 5.0 General Appearance: no apparent distress Eyes: PERRL ENT: hearing grossly normal Neck: no JVD Respiratory/Chest: + decreased breath sounds Cardiovascular: regular rate, rhythm, + systolic murmur Abdomen: non tender, soft Extremities: + pedal edema, + swelling (trace-1+ b/l le edema) Neurologic/Psych: + pertinent finding (somnolent but arousable and follows simple one step commands responds witih head nod/shake to questions) Skin: no rash Diagnostics Last 24 Hours Test 06/03/18 16:53 06/03/18 21:10 06/04/18 04:10 06/04/18 05:53 Bedside Glucose 105 mg/dl 83 mg/dl 79 mg/dl White Blood Count 5.95 K/uL Red Blood Count 3.64 M/uL Hemoglobin 11.7 g/dL Hematocrit 36.4 % Mean Corpuscular Volume 100.0 fL Mean Corpuscular Hemoglobin 32.1 pg Mean Corpuscular Hemoglobin Concent 32.1 g/dl Platelet Count 150 K/uL Mean Platelet Volume 12.1 fL Neutrophils (%) (Auto) 64.2 % Lymphocytes (%) (Auto) 23.5 % Monocytes (%) (Auto) 11.1 % Eosinophils (%) (Auto) 0.7 % Basophils (%) (Auto) 0.3 % Neutrophils # (Auto) 3.82 K/uL Lymphocytes # (Auto) 1.40 K/uL Monocytes # (Auto) 0.66 K/uL Eosinophils # (Auto) 0.04 K/uL Basophils # (Auto) 0.02 K/uL RDW Standard Deviation 57.3 fL RDW Coefficient of Variation 15.6 % Immature Granulocyte % (Auto) 0.2 % Immature Granulocyte # (Auto) 0.01 K/uL Prothrombin Time 30.8 SECONDS Prothromb Time International Ratio 3.0 Sodium Level 139 mmol/L Potassium Level 5.0 mmol/L Chloride Level 101 mmol/L Carbon Dioxide Level 28 mmol/L Anion Gap 10.0 mmol/L Blood Urea Nitrogen 110 mg/dl Creatinine 2.63 mg/dl Est Creatinine Clear Calc Drug Dose 14.5 ml/min Estimated GFR () 20.1 Estimated GFR (Non- 17.3 BUN/Creatinine Ratio 41.6 Random Glucose 63 mg/dl Calcium Level 8.6 mg/dl Magnesium Level 2.6 mg/dl Test 06/04/18 08:26 06/04/18 11:09 Lactic Acid Level 1.0 mmol/L Bedside Glucose 106 mg/dl Diagnostic Radiology: Echocardiogram on 05/31/2018: borderline left ventricular global hypokinesis EF 50% to 55% with marked right atrial and right ventricular dilatation moderate mitral and severe tricuspid insufficiency elevated pulmonary pressures though consistent with prior studies. Chest x-ray 06/04/2018: cardiomegaly small bilateral pleural effusions. EKG: EKG on presentation: sinus rhythm with bifascicular block right bundle branch block left anterior fascicular block Date/Time Source Procedure Growth Status 05/31/18 00:26 Blood Blood Culture - Preliminary NO GROWTH TO DATE. Resulted 05/30/18 19:45 Blood Blood Culture - Preliminary NO GROWTH TO DATE. Resulted 05/31/18 01:35 Nasal MRSA DNA Surveillance Screen - Final Specimen Negative for MRSA by DNA Probe Complete 05/30/18 00:00 Urine,Catheterized Urine Culture - Final NO GROWTH - LESS THAN 1,000 COLONIES/ML Complete Vital Signs Date Time Temp Pulse Resp B/P (MAP) Pulse Ox O2 Delivery O2 Flow Rate FiO2 06/04/18 10:00 58 18 118/59 (78) 88 Nasal Cannula 5.0 06/04/18 08:00 36.7 06/04/18 05:16 50 Last Resulted CBC 06/04/18 04:10 Red Blood Count 3.64, Mean Corpuscular Volume 100.0, Mean Corpuscular Hemoglobin 32.1, Mean Corpuscular Hemoglobin Concent 32.1, Mean Platelet Volume 12.1, Neutrophils (%) (Auto) 64.2, Lymphocytes (%) (Auto) 23.5, Monocytes (%) ( Auto) 11.1, Eosinophils (%) (Auto) 0.7, Basophils (%) (Auto) 0.3, Neutrophils # (Auto) 3.82, Lymphocytes # (Auto) 1.40, Monocytes # (Auto) 0.66, Eosinophils # ( Auto) 0.04, Basophils # (Auto) 0.02 Last Resulted BMP 06/04/18 04:10 06/03/18 06/04/18 06/05/18 08:00 08:00 08:00 Intake Total 2219 ml 1126 ml Output Total 725 ml 360 ml Balance 1494 ml 766 ml Assessment & Plan Patient is a 72 year old female with CKD stage 4 d/t HTN and solitary kidney status with baseline creatinine 2.0-2.2 and longstanding right heart failure who presented for possible seizure like activity vs hypoxia-induced neurologic complaints now as of 06/04 w/ worsening renal function. YAZMIN on CKD: creatinine increased to 2.63. presented with creatinine around 2.3 and improved to 2.1 but then worsened again and now at stated amount. numerous factors contributing including periods of hypotension and hypoxia, use of diuretics, afib, heart failure and respiratory failure. agree with cardiology to hold bumex until renal function can be reassessed tomorrow. Appreciate their input. Very complex patient due to extensive cardiac history. bed scale indicates that patient's overall volume status improved but difficult to truly assess due to lack of accuracy of bed scales. CXR 06/03 with improved congestion. would recommend continuing f/u CXR for reassessment of pulmonary volume status. trying to optimize CO and renal function as best as possible. volume status ok. would hold off on fluids if possible as she is at risk for volume overload. no longer on gabapentin. no nsaids. h/o hyperkalemia: potassium presently 5.0. will continue to follow. place on renal diet if not done already. anemia: mild. hgb 11.7. stable. will continue to follow. This patient was seen and treated with direct collaboration with Dr. Stewart. Thank you for the opportunity to participate in this patient's care. Appreciate the Consult. ATTENDING NOTE: I performed a history and physical examination of the patient, including specifically on history-reviewed and edited as above, on ROS-very limited d/t pt lethargy/stupor, on physical exam diminished lungs soraida bases lying flat on 5LNC w/ occasional insp wheeze and irreg irreg in 50s, romero present and at most trace pedal edema no rash, and my impression and plan are hold diuretics for today; recheck urine indices; agree w/ renal diet; palliative care note reviewed >> given pt wishes and her poor overall clinical status soraida w/ RHF not a dialysis candidate should the need arise; YAZMIN on CKD4 to be managed conservatively. I have discussed the patient's management with Nita Camarena. Please refer to the above note for the documented findings and plan of care. Kelle Stewart MD, PhD
--- NOTE | 2018-06-04 18:31 | Progress Note ---
Internal Med Progress Note Date of Service: Jun 04, 2018. Provider Documentation: SUBJECTIVE: Patient examined today on telemetry [place] after being transferred out of the ICU. Patient reports being sleepy today. But is verbal and responsive to physical exam. Patient reports that she had nausea today. Patient denies chest pain or shortness of breath OBJECTIVE: General Appearance: no acute distress Head: normocephalic, Atraumatic Eyes: normal inspection Neck: supple, Trachea midline Respiratory/Chest: fair air entry, no wheezing, no use of accessory muscles Cardiovascular: sinus rhythm Abdomen/GI:Soft: no focal tenderness on palpation, Bowel sounds present Extremities/Musculoskelatal:normal inspection Neurologic/Psych: awake and alert, verbal ASSESSMENT & PLAN: 72 year old female with CKD stage 4 d/t HTN and solitary kidney status with baseline creatinine 1.8-2.0 who presented for possible seizure like activity and ARF vs hypoxia-induced neurologic complaints being consulted for worsening renal function. Patient was admitted after having a tremors s/p fall at [facility]. BG levels were 115 per EMS. Initially, she was talking okay in the ER and she was placed on BiPAP. Then again she started shaking and she became somnolent and her oxygen saturation had dropped to 87% to 88% on BiPAP. Patient was intubated. CXR with bilateral pleural effusions and congestion and patient was given lasix 40mg IV. placed on bumex 1mg IV q 24 x 3 days as well during admission. extubated 06/01/18. Also with afib/aflutter with successful electrocardioversion 06/03/18 Acute on chronic hypoxic respiratory failure (multifactorial causes): History of ASD repair over 20 years ago. Right sided heart failure ; Diastolic CHF, Pulmonary HTN (chronic most recent PAS of 63.); Chronic cor Pulmonale; echocardiogram done on May 31, 2018 which showed EF of 55% but severely dilated RV with pulmonary pressure in the range of 50s No evidence of pulmonary fibrosis. COPD (No evidence of COPD exacerbation and as per ICU physician) Continue short acting bronchodilators, Titrate O2 and keep O2 sat above than 85% . H/O Paroxysmal atrial fibrillation: Supratherapeutic INR on admission A flutter with RVR and borderline hemodynamic instability on 06/03/18 requiring cardioversion Cardiology resumed Toprol-XL a very low dose at 12.5 mg per day. continue to hold diuretics give only reduced dose 1 mg coumadin today as INR is 3 Monitor blood pressure Blood pressures appear stable currently. (In the past, she has been on low- dose hydralazine at 10 mg twice per day as well as significant dosing of diuretic as per cardiology service) continue to hold diuretics and hydralazine Acute kidney injury on CKD IV: Baseline Cr around 2 Nephrology service following the patient continue to hold diuretics seizure like activity As per family, she had an episode of seizure in the past EEG 06/02/18: This electroencephalogram reveals evidence for mild generalized highly nonspecific encephalopathy without lateralizing features and without associated potentially epileptogenic activity Gabapentin Levels pending Neurology "This patient has a history of episodes of tremor interpreted to be seizure. The history giving has been difficult. On this admission, the question of seizure occurred in the setting of hypoxemia. No seizure was witnessed by medical professional per se. Given that she was seriously ill and hypoxic with hypercarbia at that time" and at this point no further treatment interventions or exploratory tests as per neurology Hypothyroidism: Continue Synthroid Abdominal Pain GERD: continue PPI No acute pathologies seen on CT abdomen on 06/03/18 1. Cirrhotic morphology of the liver with trace abdominal pelvic ascites . 2. Cholelithiasis without CT evidence of acute cholecystitis. 3. No bowel obstruction or focal bowel wall thickening. 4. Colonic diverticulosis without diverticulitis. 5. Small right and trace left pleural effusions with bibasilar consolidative opacities suggesting atelectasis or pneumonia H/O DM II: Diet Controlled A1C:6.0 Continue ISS Monitor BGs DVT Px: anticoagulated on coumadin Code status: DNR/DNI Vital Signs: Date Time Temp Pulse Resp B/P (MAP) Pulse Ox O2 Delivery O2 Flow Rate FiO2 06/04/18 15:24 36.4 58 20 119/71 (87) 92 Nasal Cannula 5.0 06/04/18 10:00 58 18 118/59 (78) 88 Nasal Cannula 5.0 06/04/18 09:00 54 16 122/70 (87) 85 Nasal Cannula 5.0 06/04/18 08:00 36.7 54 18 122/75 (91) 88 Nasal Cannula 5.0 06/04/18 08:00 88 Nasal Cannula 5.0 06/04/18 06:01 53 15 138/59 (85) 87 Nasal Cannula 5.0 06/04/18 05:16 53 91 50 06/04/18 05:00 57 20 138/64 (88) 86 06/04/18 04:01 36.7 57 19 112/53 (72) 89 BiPAP 50 06/04/18 03:01 56 16 120/61 (80) 89 BiPAP 50 06/04/18 02:04 62 89 50 06/04/18 02:00 63 16 128/66 (86) 06/04/18 01:00 53 11 126/63 (84) 88 BiPAP 50 06/04/18 00:00 36.9 50 12 132/68 (89) 87 BiPAP 50 06/03/18 23:01 60 15 112/55 (74) 86 BiPAP 50 64 06/03/18 22:27 50 88 50 06/03/18 22:01 59 20 155/67 (96) 86 BiPAP 50 66 06/03/18 21:45 48 87 35 06/03/18 21:01 57 15 147/70 (95) 90 BiPAP 60 65 06/03/18 20:42 58 88 50 06/03/18 20:01 36.4 46 15 146/56 (86) 90 Nasal Cannula 5.0 65 06/03/18 20:00 Nasal Cannula 5.0 06/03/18 19:01 60 19 131/79 (96) 89 Nasal Cannula 5.0 Lab Results: Results Past 24 Hours Test 06/03/18 21:10 06/04/18 04:10 06/04/18 05:53 06/04/18 08:26 Range/Units Bedside Glucose 83 79 70-90 mg/dl White Blood Count 5.95 4.8-10.8 K/uL Red Blood Count 3.64 4.2-5.4 M/uL Hemoglobin 11.7 12.0-16.0 g/dL Hematocrit 36.4 37-47 % Mean Corpuscular Volume 100.0 80-100 fL Mean Corpuscular Hemoglobin 32.1 25-34 pg Mean Corpuscular Hemoglobin Concent 32.1 32-36 g/dl Platelet Count 150 130-400 K/uL Mean Platelet Volume 12.1 7.4-10.4 fL Neutrophils (%) (Auto) 64.2 % Lymphocytes (%) (Auto) 23.5 % Monocytes (%) (Auto) 11.1 % Eosinophils (%) (Auto) 0.7 % Basophils (%) (Auto) 0.3 % Neutrophils # (Auto) 3.82 1.4-6.5 K/uL Lymphocytes # (Auto) 1.40 1.2-3.4 K/uL Monocytes # (Auto) 0.66 0.11-0.59 K/uL Eosinophils # (Auto) 0.04 0-0.5 K/uL Basophils # (Auto) 0.02 0-0.2 K/uL RDW Standard Deviation 57.3 36.4-46.3 fL RDW Coefficient of Variation 15.6 11.5-14.5 % Immature Granulocyte % (Auto) 0.2 % Immature Granulocyte # (Auto) 0.01 0.00-0.02 K/uL Prothrombin Time 30.8 9.0-12.0 SECONDS Prothromb Time International Ratio 3.0 0.9-1.1 Sodium Level 139 136-145 mmol/L Potassium Level 5.0 3.5-5.1 mmol/L Chloride Level 101 98-107 mmol/L Carbon Dioxide Level 28 21-32 mmol/L Anion Gap 10.0 3-11 mmol/L Blood Urea Nitrogen 110 7-18 mg/dl Creatinine 2.63 0.60-1.20 mg/dl Est Creatinine Clear Calc Drug Dose 14.5 ml/min Estimated GFR () 20.1 Estimated GFR (Non- 17.3 BUN/Creatinine Ratio 41.6 10-20 Random Glucose 63 70-99 mg/dl Calcium Level 8.6 8.5-10.1 mg/dl Magnesium Level 2.6 1.8-2.4 mg/dl Lactic Acid Level 1.0 0.4-2.0 mmol/L Test 06/04/18 11:09 06/04/18 17:26 Range/Units Bedside Glucose 106 92 70-90 mg/dl
--- NOTE | 2018-06-04 18:34 | Critical Care Progress Note ---
Critical Care Progress Note Date of Service Jun 04, 2018. Attending Dr. Kim Santamaria The patient continued to have vertigo, with a spinning sensation. Accompanied with nausea. Vague abdominal pain although the patient abdominal exam was soft. No fever, no constitutional symptoms. No vomiting was reported. Overnight the patient continued to be stable within her baseline. Her O2 saturation is difficult to assess due to her intracardiac shunt. And severely elevated pulmonary hypertension. Objective General: Alert. nontoxic. Skin: Warm, dry, Head: Atraumatic Ears, nose, mouth and throat: Endotracheal tube present Cardiovascular: Normal peripheral perfusion Respiratory: no respiratory distress Gastrointestinal: Non distended Musculoskeletal: No deformity Physical exam of 06/02/2018 showed elderly female, does not appear to be in any respiratory distress although her O2 sat is fluctuating. No stridor, S1-S2 with systolic ejection murmur, in A. fib, occasionally she is in RVR. 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 Data has been reviewed from previous which include CAT scan from July 2017 which did not show any evidence of pulmonary fibrosis, it showed at that time infiltrates. Patient does have mild COPD changes. The patient also has an echocardiogram done on May 31, 2018 2 days ago which showed EF of 55% but severely dilated RV with pulmonary pressure in the range of 50s. Chest x-ray was reviewed also on multiple occasions which showed cardiomegaly with engorged pulmonary artery. There is a cardiac device noted on the chest x-ray. 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 Her physical exam on 06/03/2018 showed low blood pressure, tachycardia with a flutter, O2 saturation is 85-92%. Vague abdominal pain although the abdomen is soft. No rebound. S1-S2 tachycardic. Lungs are clear. 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 No edema. Her labs also were reviewed which showed elevated BUN/ creatinine likely from diuresis. Her INR still subtherapeutic. Physical exam on 06/04/2018 showed stable vital signs, difficult to assess O2 saturation, S1-S2 remains in sinus bradycardia, distant breath sounds bilaterally, abdomen is soft and benign bowel sounds are positive, no edema. CAT scan of the abdomen showing the lower part of the lung was noted for small bilateral pleural effusion, no intra-abdominal catastrophe. No evidence of mesenteric ischemia. Labs were reviewed, all within baseline except for the BUN /creatinine that has been climbing up. Assessment & Plan 1. Acute on chronic hypoxic respiratory failure. Due to pulmonary hypertension , right ventricular failure, COPD. 2. No evidence of pulmonary fibrosis. 3. COPD. 4. Right sided heart failure. 5. History of ASD repair over 20 years ago. 6. A flutter with RVR and borderline hemodynamic instability today requiring cardioversion with good results. 7. CKD, stage IV. Worsening over the past 24 hours. 8. Vertigo, which could be benign and positional. Plan: 1. The patient underwent cardioversion, sedation was performed by the critical care team, cardioversion performed by Dr. Lay, appreciate his input. The patient remains in sinus bradycardia. Continue to be on low-dose beta blockers. 2. No evidence of COPD exacerbation, I would keep the patient off antibiotics and systemic steroids. 3. The patient appeared to have vertigo resulted in the nausea that has been persistent. As for the vague abdominal pain, I could not find any evidence for ischemic bowel, however submucosa mesenteric ischemia cannot be totally excluded. However, the patient does not have bloody stool 4. I will stop the Lasix due to increase in the BUN/creatinine at the moment. 5. Continue with Coumadin. Follow the INR. The dose is on hold due to INR of 3. 6. Titrate O2 and keep O2 sat above than 85%. 7. Metoprolol for rate control. 8. Start meclizine 12-1/2 mg p.o. 3 times daily. 9. The patient is DNR and DNI per report. 10. Renal consult to Dr. Stevens, appreciate her input. Patient has worsening renal function. 11. Continue short acting bronchodilators. As well as long-acting beta agonist. 12. Fleet enema. Bowel movement was achieved. 13. Discontinue IV fluid. 14. Lactic acid was done and it was 1. 15. Palliative care consult. 16. Oral intake. 17. Disposition plan to telemetry floor, appreciate Dr. Olson accepting this patient to telemetry floor. Case discussed with the staff on rounds and details, critical care time spent with the patient was 45 minutes including reviewing the records. Consults & Procedures Consultants: Neurology Procedures: Intubation 05/30/2018 Data Medications: Current Inpatient Medications Medications (Trade) Dose Ordered Sig/Mehdi Route Start Time Stop Time Status Last Admin Dose Admin Ondansetron HCl (Zofran Inj) 4 mg Q6H PRN IV 05/31/18 00:15 06/30/18 00:14 06/04/18 11:57 4 MG Albuterol (Ventolin Hfa Inhaler) 2 puffs Q6 PRN INH 05/31/18 00:45 06/30/18 00:44 Glucose (Glucose 40% Gel) 15-30 GRAMS 15 GRAMS... UD PRN PO 05/31/18 09:15 06/30/18 09:14 Glucose (Glucose Chew Tab) 4-8 Tablets 4 Tabl... UD PRN PO 05/31/18 09:15 06/30/18 09:14 Dextrose (Dextrose 50% 50ML Syringe) 25-50ML 25ML FOR ... UD PRN IV 05/31/18 09:15 06/30/18 09:14 Glucagon (Glucagon Inj) 1 mg UD PRN SQ 05/31/18 09:15 06/30/18 09:14 Carbohydrates (Carbohydrates For Hypoglycemia) 15-30 GRAMS 15 grams if BSG 54-69... UD PRN PO 05/31/18 09:15 06/30/18 09:14 Pantoprazole Sodium (Protonix Tab) 40 mg QAM PO 06/02/18 09:00 07/02/18 08:59 06/04/18 07:33 40 MG Levothyroxine Sodium (Synthroid Tab) 75 mcg DAILYBB PO 06/02/18 09:00 07/02/18 08:59 06/04/18 05:51 75 MCG Warfarin Sodium (Coumadin Tab) 2.5 mg DAILY@16 PO 06/02/18 16:00 07/02/18 15:59 Future Hold 06/03/18 15:53 2.5 MG Insulin Aspart (novoLOG ASPART) SLIDING SCALE If C... ACHS SC 06/02/18 16:00 07/02/18 15:59 06/02/18 16:56 2 UNITS Acetaminophen (Tylenol Tab) 650 mg Q6H PRN PO 06/02/18 18:45 07/02/18 18:44 06/04/18 09:50 650 MG Miscellaneous (Soap Suds Enema) 1 ea Q2HWA PRN [place] 06/03/18 10:30 07/03/18 10:29 06/03/18 11:59 1 EA Meclizine HCl (Antivert Tab) 12.5 mg TID PO 06/04/18 14:00 07/04/18 13:59 06/04/18 14:03 12.5 MG Metoprolol Succinate (Toprol Xl Tab) 12.5 mg QAM PO 06/05/18 09:00 07/05/18 08:59 Vital Signs: Date Time Temp Pulse Resp B/P (MAP) Pulse Ox O2 Delivery O2 Flow Rate FiO2 06/04/18 15:24 36.4 58 20 119/71 (87) 92 Nasal Cannula 5.0 06/04/18 10:00 58 18 118/59 (78) 88 Nasal Cannula 5.0 06/04/18 09:00 54 16 122/70 (87) 85 Nasal Cannula 5.0 06/04/18 08:00 36.7 54 18 122/75 (91) 88 Nasal Cannula 5.0 06/04/18 08:00 88 Nasal Cannula 5.0 06/04/18 06:01 53 15 138/59 (85) 87 Nasal Cannula 5.0 06/04/18 05:16 53 91 50 06/04/18 05:00 57 20 138/64 (88) 86 06/04/18 04:01 36.7 57 19 112/53 (72) 89 BiPAP 50 06/04/18 03:01 56 16 120/61 (80) 89 BiPAP 50 06/04/18 02:04 62 89 50 06/04/18 02:00 63 16 128/66 (86) 06/04/18 01:00 53 11 126/63 (84) 88 BiPAP 50 06/04/18 00:00 36.9 50 12 132/68 (89) 87 BiPAP 50 06/03/18 23:01 60 15 112/55 (74) 86 BiPAP 50 64 06/03/18 22:27 50 88 50 06/03/18 22:01 59 20 155/67 (96) 86 BiPAP 50 66 06/03/18 21:45 48 87 35 06/03/18 21:01 57 15 147/70 (95) 90 BiPAP 60 65 06/03/18 20:42 58 88 50 06/03/18 20:01 36.4 46 15 146/56 (86) 90 Nasal Cannula 5.0 65 06/03/18 20:00 Nasal Cannula 5.0 06/03/18 19:01 60 19 131/79 (96) 89 Nasal Cannula 5.0 Laboratory Results: Last 24 Hours Test 06/03/18 21:10 06/04/18 04:10 06/04/18 05:53 06/04/18 08:26 Bedside Glucose 83 mg/dl 79 mg/dl White Blood Count 5.95 K/uL Red Blood Count 3.64 M/uL Hemoglobin 11.7 g/dL Hematocrit 36.4 % Mean Corpuscular Volume 100.0 fL Mean Corpuscular Hemoglobin 32.1 pg Mean Corpuscular Hemoglobin Concent 32.1 g/dl Platelet Count 150 K/uL Mean Platelet Volume 12.1 fL Neutrophils (%) (Auto) 64.2 % Lymphocytes (%) (Auto) 23.5 % Monocytes (%) (Auto) 11.1 % Eosinophils (%) (Auto) 0.7 % Basophils (%) (Auto) 0.3 % Neutrophils # (Auto) 3.82 K/uL Lymphocytes # (Auto) 1.40 K/uL Monocytes # (Auto) 0.66 K/uL Eosinophils # (Auto) 0.04 K/uL Basophils # (Auto) 0.02 K/uL RDW Standard Deviation 57.3 fL RDW Coefficient of Variation 15.6 % Immature Granulocyte % (Auto) 0.2 % Immature Granulocyte # (Auto) 0.01 K/uL Prothrombin Time 30.8 SECONDS Prothromb Time International Ratio 3.0 Sodium Level 139 mmol/L Potassium Level 5.0 mmol/L Chloride Level 101 mmol/L Carbon Dioxide Level 28 mmol/L Anion Gap 10.0 mmol/L Blood Urea Nitrogen 110 mg/dl Creatinine 2.63 mg/dl Est Creatinine Clear Calc Drug Dose 14.5 ml/min Estimated GFR () 20.1 Estimated GFR (Non- 17.3 BUN/Creatinine Ratio 41.6 Random Glucose 63 mg/dl Calcium Level 8.6 mg/dl Magnesium Level 2.6 mg/dl Lactic Acid Level 1.0 mmol/L Test 06/04/18 11:09 06/04/18 17:26 Bedside Glucose 106 mg/dl 92 mg/dl
[2018-06-04] MEDS ORDERED: WARFARIN SOD 1 MG TAB PO ONE (18:45)
[2018-06-05] VITALS (9 sets, daily range): BP systolic 98–136; BP diastolic 60–74; PULSE 44–65; TEMP 36.4–37.4; O2SAT 89–96
[2018-06-05] MEDS: LEVOTHYROXINE 75 MCG TAB PO SCH (05:49)
--- NOTE | 2018-06-05 06:08 | Progress Note ---
Post ICU Progress Note Date & Time Jun 05, 2018 at 06:04 Vital Signs Vital Signs Past 12 Hours Date Time Temp Pulse Resp B/P (MAP) Pulse Ox O2 Delivery O2 Flow Rate FiO2 06/05/18 03:35 36.4 44 16 126/63 (84) 90 CPAP 50 06/05/18 02:01 53 96 50 06/04/18 23:33 36.9 43 16 121/55 (77) 97 CPAP 50 06/04/18 22:26 56 93 50 06/04/18 20:00 Nasal Cannula 5.0 06/04/18 19:23 36.7 60 18 141/68 (92) 91 Nasal Cannula 5.0 Notes Mental Status: alert / awake Nausea / Vomiting: adequately controlled Pain: adequately controlled Airway Patency, RR, SpO2: stable & adequate BP & HR: stable & adequate Patient is a 72-year-old female who was initially admitted to the ICU with respiratory failure requiring intubation. She was extubated after 48 hours and had multiple issues including development of rapid A. fib/flutter requiring cardioversion. She has also been volume overloaded as well. This has seemed to improve, however. Patient did improve to the point that she was able to be downgraded from ICU status. On evaluation today, the patient is awake, alert, and oriented. She is resting comfortably. She is on nasal cannula only. Consider outpatient follow up in 1 to 2 weeks with: PCP, Cardiology Repeat imaging needed: Per admitting services. Follow up cultures: None Reviewed progress notes, labs, and inpatient medication list Continue current management Additional recommendations: Continue w/ BiPAP as needed and particularly w/ sleep. Thank you for allowing us to participate in the care of this patient. At this time, Critical Care Services will sign off on this patient. Please feel free to reconsult as needed. Consults & Procedures Consultants: Neurology Procedures: Intubation 05/30/2018
[2018-06-05] MEDS: INSULIN ASPART 100 UNITS/ML 3 ML PEN SC SCH ×4 (07:00→20:30)
[2018-06-05 07:08] LABS: BASO % 0.6 %; BASO ABS # 0.03 K/uL (0-0.2); EOS % 2.1 %; EOS ABS # 0.11 K/uL (0-0.5); HEMATOCRIT 35.9 % (37-47); HEMOGLOBIN 11.2 g/dL (12.0-16.0); IG# 0.01 K/uL (0.00-0.02); LYMPH % 19.9 %; LYMPH ABS # 1.05 K/uL (1.2-3.4); MEAN CORPUSCULAR HEMOGLOBIN 31.2 pg (25-34); MEAN CORPUSCULAR HGB CONC 31.2 g/dl (32-36); MEAN PLATELET VOLUME 12.6 fL (7.4-10.4); MONO % 11.6 %; MONO ABS # 0.61 K/uL (0.11-0.59); NEUT % 65.6 %; NEUT ABS # 3.47 K/uL (1.4-6.5); PLATELET COUNT 144 K/uL (130-400); RED CELL DISTRIBUTION WIDTH SD 54.5 fL (36.4-46.3); WHITE BLOOD COUNT 5.28 K/uL (4.8-10.8)
[2018-06-05 07:17] LABS: INR 2.9 (0.9-1.1)
[2018-06-05 07:39] LABS: CALCIUM 8.8 mg/dl (8.5-10.1); CREATININE 2.4 mg/dl (0.60-1.20); POTASSIUM 4.5 mmol/L (3.5-5.1)
[2018-06-05] MEDS: MECLIZINE HCL 12.5 MG TAB PO SCH ×2 (08:19→12:31)
[2018-06-05] MEDS: METOPROLOL SUCC 25MG EXT REL TAB PO SCH (08:19)
[2018-06-05] MEDS: PANTOprazole SOD 40 MG TAB PO SCH (08:19)
--- NOTE | 2018-06-05 08:54 | Progress Note ---
Internal Med Progress Note Date of Service: Jun 05, 2018. Provider Documentation: SUBJECTIVE: Patient examined today on telemetry [place]. Patient denies chest pain or shortness of breath. Patient reports cough with sputum. Patient denies problems with urination or bowel movements OBJECTIVE: General Appearance: no acute distress Head: normocephalic, Atraumatic Eyes: normal inspection Neck: supple, Trachea midline Respiratory/Chest: fair air entry, no wheezing, no use of accessory muscles, mild crackles Cardiovascular: sinus bradycardia Abdomen/GI:Soft: no focal tenderness on palpation, Bowel sounds present Extremities/Musculoskelatal: lower extremity edema Neurologic/Psych: awake and alert, verbal ASSESSMENT & PLAN: 72 year old female with CKD stage 4 d/t HTN and solitary kidney status with baseline creatinine 1.8-2.0 who presented for possible seizure like activity and ARF vs hypoxia-induced neurologic complaints being consulted for worsening renal function. Patient was admitted after having a tremors s/p fall at [facility]. BG levels were 115 per EMS. Initially, she was talking okay in the ER and she was placed on BiPAP. Then again she started shaking and she became somnolent and her oxygen saturation had dropped to 87% to 88% on BiPAP. Patient was intubated. CXR with bilateral pleural effusions and congestion and patient was given lasix 40mg IV. placed on bumex 1mg IV q 24 x 3 days as well during admission. extubated 06/01/18. Also with afib/aflutter with successful electrocardioversion 06/03/18 Acute on chronic hypoxic respiratory failure (multifactorial causes): History of ASD repair over 20 years ago. Right sided heart failure ; Diastolic CHF, Pulmonary HTN (chronic most recent PAS of 63.); Chronic cor Pulmonale; echocardiogram done on May 31, 2018 which showed EF of 55% but severely dilated RV with pulmonary pressure in the range of 50s No evidence of pulmonary fibrosis. COPD (No evidence of COPD exacerbation and as per ICU physician) Continue short acting bronchodilators, Titrate O2 and keep O2 sat above than 85% . as per nephrology, diuretics can be resumed - will resume Bumex as 1 mg daily H/O Paroxysmal atrial fibrillation: Supratherapeutic INR on admission A flutter with RVR and borderline hemodynamic instability on 06/03/18 requiring cardioversion continue Toprol-XL 12.5 mg per day. INR 2.9 on 06/05/18, will give coumadin 2.5 mg daily for now Monitor blood pressure Blood pressures appear stable currently. (In the past, she has been on low- dose hydralazine at 10 mg twice per day as well as significant dosing of diuretic as per cardiology service) as per nephrology, diuretics can be resumed - will resume Bumex as 1 mg daily Acute kidney injury on CKD IV: Baseline Cr around 2 Nephrology service following the patient as per nephrology, diuretics can be resumed seizure like activity As per family, she had an episode of seizure in the past EEG 06/02/18: This electroencephalogram reveals evidence for mild generalized highly nonspecific encephalopathy without lateralizing features and without associated potentially epileptogenic activity Gabapentin Levels pending Neurology "This patient has a history of episodes of tremor interpreted to be seizure. The history giving has been difficult. On this admission, the question of seizure occurred in the setting of hypoxemia. No seizure was witnessed by medical professional per se. Given that she was seriously ill and hypoxic with hypercarbia at that time" and at this point no further treatment interventions or exploratory tests as per neurology Obtain PT/OT Hypothyroidism: Continue Synthroid Abdominal Pain GERD: continue PPI No acute pathologies seen on CT abdomen on 06/03/18 1. Cirrhotic morphology of the liver with trace abdominal pelvic ascites . 2. Cholelithiasis without CT evidence of acute cholecystitis. 3. No bowel obstruction or focal bowel wall thickening. 4. Colonic diverticulosis without diverticulitis. 5. Small right and trace left pleural effusions with bibasilar consolidative opacities suggesting atelectasis or pneumonia H/O DM II: Diet Controlled A1C:6.0 Continue ISS Monitor BGs DVT Px: anticoagulated on coumadin Code status: DNR/DNI Vital Signs: Date Time Temp Pulse Resp B/P (MAP) Pulse Ox O2 Delivery O2 Flow Rate FiO2 06/05/18 07:57 Nasal Cannula 5.0 06/05/18 07:14 36.9 63 18 117/65 (82) 92 Nasal Cannula 5.0 06/05/18 03:35 36.4 44 16 126/63 (84) 90 CPAP 50 06/05/18 02:01 53 96 50 06/04/18 23:33 36.9 43 16 121/55 (77) 97 CPAP 50 06/04/18 22:26 56 93 50 06/04/18 20:00 Nasal Cannula 5.0 06/04/18 19:23 36.7 60 18 141/68 (92) 91 Nasal Cannula 5.0 06/04/18 15:24 36.4 58 20 119/71 (87) 92 Nasal Cannula 5.0 06/04/18 10:00 58 18 118/59 (78) 88 Nasal Cannula 5.0 06/04/18 09:00 54 16 122/70 (87) 85 Nasal Cannula 5.0 Lab Results: Results Past 24 Hours Test 06/04/18 11:09 06/04/18 17:26 06/04/18 20:29 06/05/18 06:39 Range/Units Bedside Glucose 106 92 110 70-90 mg/dl White Blood Count 5.28 4.8-10.8 K/uL Red Blood Count 3.59 4.2-5.4 M/uL Hemoglobin 11.2 12.0-16.0 g/dL Hematocrit 35.9 37-47 % Mean Corpuscular Volume 100.0 80-100 fL Mean Corpuscular Hemoglobin 31.2 25-34 pg Mean Corpuscular Hemoglobin Concent 31.2 32-36 g/dl Platelet Count 144 130-400 K/uL Mean Platelet Volume 12.6 7.4-10.4 fL Neutrophils (%) (Auto) 65.6 % Lymphocytes (%) (Auto) 19.9 % Monocytes (%) (Auto) 11.6 % Eosinophils (%) (Auto) 2.1 % Basophils (%) (Auto) 0.6 % Neutrophils # (Auto) 3.47 1.4-6.5 K/uL Lymphocytes # (Auto) 1.05 1.2-3.4 K/uL Monocytes # (Auto) 0.61 0.11-0.59 K/uL Eosinophils # (Auto) 0.11 0-0.5 K/uL Basophils # (Auto) 0.03 0-0.2 K/uL RDW Standard Deviation 54.5 36.4-46.3 fL RDW Coefficient of Variation 15.0 11.5-14.5 % Immature Granulocyte % (Auto) 0.2 % Immature Granulocyte # (Auto) 0.01 0.00-0.02 K/uL Prothrombin Time 29.8 9.0-12.0 SECONDS Prothromb Time International Ratio 2.9 0.9-1.1 Sodium Level 138 136-145 mmol/L Potassium Level 4.5 3.5-5.1 mmol/L Chloride Level 102 98-107 mmol/L Carbon Dioxide Level 30 21-32 mmol/L Anion Gap 6.0 3-11 mmol/L Blood Urea Nitrogen 104 7-18 mg/dl Creatinine 2.40 0.60-1.20 mg/dl Est Creatinine Clear Calc Drug Dose 16.1 ml/min Estimated GFR () 22.5 Estimated GFR (Non- 19.4 BUN/Creatinine Ratio 43.5 10-20 Random Glucose 77 70-99 mg/dl Calcium Level 8.8 8.5-10.1 mg/dl Magnesium Level 2.5 1.8-2.4 mg/dl Test 06/05/18 07:02 Range/Units Bedside Glucose 85 70-90 mg/dl
[2018-06-05] MEDS: BUMETANIDE 1 MG TAB PO SCH (10:23)
[2018-06-05] MEDS: WARFARIN SOD 2.5 MG TAB PO SCH (16:56)
--- NOTE | 2018-06-05 17:14 | Nephrology Progress Note ---
Nephrology Progress Note Date of Service: Jun 05, 2018. Subjective no events overnight; pt cannot give much ros though she is alert, interactive. Objective Date Time Temp Pulse Resp B/P (MAP) Pulse Ox O2 Delivery O2 Flow Rate FiO2 06/05/18 03:35 36.4 44 16 126/63 (84) 90 CPAP 50 06/05/18 02:01 53 96 50 06/04/18 23:33 36.9 43 16 121/55 (77) 97 CPAP 50 06/04/18 22:26 56 93 50 06/04/18 20:00 Nasal Cannula 5.0 06/04/18 19:23 36.7 60 18 141/68 (92) 91 Nasal Cannula 5.0 06/04/18 15:24 36.4 58 20 119/71 (87) 92 Nasal Cannula 5.0 06/04/18 10:00 58 18 118/59 (78) 88 Nasal Cannula 5.0 06/04/18 09:00 54 16 122/70 (87) 85 Nasal Cannula 5.0 06/04/18 08:00 36.7 54 18 122/75 (91) 88 Nasal Cannula 5.0 06/04/18 08:00 88 Nasal Cannula 5.0 Physical Exam: General Appearance: no apparent distress, sitting up reading paper on 5L 02NC Eyes: PERRL ENT: hearing grossly normal, hoarse Neck: no JVD Respiratory/Chest: + decreased breath sounds soraida on L lung and R w/ few insp crx/wheeze Cardiovascular: regular rate, rhythm, + systolic murmur Abdomen: non tender, soft Extremities: + pedal edema, + swelling (trace b/l le edema) Neurologic/Psych: + pertinent finding (unusual affect; doses at times in interview but also reads paper/ at times hard to understand her speech) Skin: no rash Current Inpatient Medications Medications (Trade) Dose Ordered Sig/Mehdi Route Start Time Stop Time Status Last Admin Dose Admin Ondansetron HCl (Zofran Inj) 4 mg Q6H PRN IV 05/31/18 00:15 06/30/18 00:14 06/04/18 11:57 4 MG Albuterol (Ventolin Hfa Inhaler) 2 puffs Q6 PRN INH 05/31/18 00:45 06/30/18 00:44 Glucose (Glucose 40% Gel) 15-30 GRAMS 15 GRAMS... UD PRN PO 05/31/18 09:15 06/30/18 09:14 Glucose (Glucose Chew Tab) 4-8 Tablets 4 Tabl... UD PRN PO 05/31/18 09:15 06/30/18 09:14 Dextrose (Dextrose 50% 50ML Syringe) 25-50ML 25ML FOR ... UD PRN IV 05/31/18 09:15 06/30/18 09:14 Glucagon (Glucagon Inj) 1 mg UD PRN SQ 05/31/18 09:15 06/30/18 09:14 Carbohydrates (Carbohydrates For Hypoglycemia) 15-30 GRAMS 15 grams if BSG 54-69... UD PRN PO 05/31/18 09:15 06/30/18 09:14 Pantoprazole Sodium (Protonix Tab) 40 mg QAM PO 06/02/18 09:00 07/02/18 08:59 06/04/18 07:33 40 MG Levothyroxine Sodium (Synthroid Tab) 75 mcg DAILYBB PO 06/02/18 09:00 07/02/18 08:59 06/05/18 05:49 75 MCG Warfarin Sodium (Coumadin Tab) 2.5 mg DAILY@16 PO 06/02/18 16:00 07/02/18 15:59 Future Hold 06/03/18 15:53 2.5 MG Insulin Aspart (novoLOG ASPART) SLIDING SCALE If C... ACHS SC 06/02/18 16:00 07/02/18 15:59 06/02/18 16:56 2 UNITS Acetaminophen (Tylenol Tab) 650 mg Q6H PRN PO 06/02/18 18:45 07/02/18 18:44 06/04/18 09:50 650 MG Miscellaneous (Soap Suds Enema) 1 ea Q2HWA PRN [place] 06/03/18 10:30 07/03/18 10:29 06/03/18 11:59 1 EA Meclizine HCl (Antivert Tab) 12.5 mg TID PO 06/04/18 14:00 07/04/18 13:59 06/04/18 19:57 12.5 MG Metoprolol Succinate (Toprol Xl Tab) 12.5 mg QAM PO 06/05/18 09:00 07/05/18 08:59 Last 24 Hours Test 06/04/18 08:26 06/04/18 11:09 06/04/18 17:26 06/04/18 20:29 Lactic Acid Level 1.0 mmol/L Bedside Glucose 106 mg/dl 92 mg/dl 110 mg/dl Test 06/05/18 06:39 White Blood Count 5.28 K/uL Red Blood Count 3.59 M/uL Hemoglobin 11.2 g/dL Hematocrit 35.9 % Mean Corpuscular Volume 100.0 fL Mean Corpuscular Hemoglobin 31.2 pg Mean Corpuscular Hemoglobin Concent 31.2 g/dl Platelet Count 144 K/uL Mean Platelet Volume 12.6 fL Neutrophils (%) (Auto) 65.6 % Lymphocytes (%) (Auto) 19.9 % Monocytes (%) (Auto) 11.6 % Eosinophils (%) (Auto) 2.1 % Basophils (%) (Auto) 0.6 % Neutrophils # (Auto) 3.47 K/uL Lymphocytes # (Auto) 1.05 K/uL Monocytes # (Auto) 0.61 K/uL Eosinophils # (Auto) 0.11 K/uL Basophils # (Auto) 0.03 K/uL RDW Standard Deviation 54.5 fL RDW Coefficient of Variation 15.0 % Immature Granulocyte % (Auto) 0.2 % Immature Granulocyte # (Auto) 0.01 K/uL Assessment & Plan 72 year old female with CKD stage 4 d/t HTN and solitary kidney with baseline creatinine 2.0-2.2 and longstanding right heart failure who presented 05/31 w/ possible seizure activity vs hypoxia-induced neurologic deficits >> she presented initially w/ respiratory failure and was intubated briefly; moved out of ICU 06/04; now as of 06/04 w/ worsening renal function w/ creatinine up to 2.6 in the wake of critical illness, some diuretics. YAZMIN on CKD4; nonoliguric technically but borderline. numerous factors contributing including periods of hypotension and hypoxia, use of diuretics, afib, heart failure and respiratory failure. anemia acceptable currently. -bumex on hold pending today's labs but look to reintroduce >> agree w/ 1 mg po daily; may need more -added <2 gm daily Na diet; would not place FR yet -bradycardia noted ON w/ HR in 40s at times >> not new this admission but certainly can affect renal perfusion; low threshold to call cardiology back; they are not actively following pt at this time h/o hyperkalemia: potassium borderline high and may need renal diet appreciate consult; will follow with you. care coordinated w/ dr driver
--- NOTE | 2018-06-05 18:42 | CARDIOLOGY CONSULTATION ---
DATE OF CONSULTATION: 06/05/2018 The patient seen and examined. Chart, medications, telemetry reviewed. SUBJECTIVE: The patient was more lethargic this morning, but had received meclizine earlier. Notes no chest pains or orthopnea. OBJECTIVE: VITAL SIGNS: Heart rate 65, blood pressure is 136/72, O2 saturations are low 90s on 5 liters nasal cannula. NECK: Thick. There is no distinct jugular venous distention. LUNGS: Reveal diminished breath sounds at the bases. CARDIOVASCULAR: Regular. Telemetry reveals no further atrial flutter. EXTREMITIES: Without cyanosis or clubbing. There is trace edema. Telemetry reveals sinus rhythm with bifascicular block. No further atrial flutter. LABORATORY DATA: White cell count is 5.28, hemoglobin 11.2. Sodium is 138, potassium is 4.5, BUN is 104, creatinine is 2.4. IMPRESSION: Complex 72-year-old female with chronic right heart failure and acute on chronic respiratory failure, requiring admission. Course complicated by atrial flutter with rapid ventricular response. She underwent successful synchronized electrical cardioversion and has remained in sinus rhythm. We will continue lower dose of Toprol at 12.5 mg per day, Bumex has been resumed today as appropriate.
[2018-06-06] VITALS (9 sets, daily range): BP systolic 115–129; BP diastolic 58–70; PULSE 51–62; TEMP 36.7–37.2; O2SAT 90–94
[2018-06-06] MEDS: LEVOTHYROXINE 75 MCG TAB PO SCH (06:12)
[2018-06-06] MEDS: INSULIN ASPART 100 UNITS/ML 3 ML PEN SC SCH ×4 (07:00→21:00)
[2018-06-06] MEDS: PANTOprazole SOD 40 MG TAB PO SCH (08:52)
[2018-06-06] MEDS: METOPROLOL SUCC 25MG EXT REL TAB PO SCH (08:52)
[2018-06-06] MEDS: BUMETANIDE 1 MG TAB PO SCH ×2 (08:52→17:12)
--- NOTE | 2018-06-06 09:50 | Progress Note ---
Internal Med Progress Note Date of Service: Jun 06, 2018. Provider Documentation: SUBJECTIVE: Patient examined today on telemetry [place]. Patient denies chest pain or shortness of breath. Patient denies problems with urination. Generally has been sinus bradycardia on telemetry OBJECTIVE: General Appearance: no acute distress Head: normocephalic, Atraumatic Eyes: normal inspection Neck: supple, Trachea midline Respiratory/Chest: fair air entry, no wheezing, no use of accessory muscles, on nasal cannula Cardiovascular: sinus bradycardia Abdomen/GI:Soft: no focal tenderness on palpation, Bowel sounds present Extremities/Musculoskelatal: lower extremity edema Neurologic/Psych: awake and alert, verbal ASSESSMENT & PLAN: 72 year old female with CKD stage 4 d/t HTN and solitary kidney status with baseline creatinine 1.8-2.0 who presented for possible seizure like activity and ARF vs hypoxia-induced neurologic complaints being consulted for worsening renal function. Patient was admitted after having a tremors s/p fall at [facility]. BG levels were 115 per EMS. Initially, she was talking okay in the ER and she was placed on BiPAP. Then again she started shaking and she became somnolent and her oxygen saturation had dropped to 87% to 88% on BiPAP. Patient was intubated. CXR with bilateral pleural effusions and congestion and patient was given lasix 40mg IV. placed on bumex 1mg IV q 24 x 3 days as well during admission. extubated 06/01/18. Also with afib/aflutter with successful electrocardioversion 06/03/18 Acute on chronic hypoxic respiratory failure (multifactorial causes): History of ASD repair over 20 years ago. Right sided heart failure ; Diastolic CHF, Pulmonary HTN (chronic most recent PAS of 63.); Chronic cor Pulmonale; echocardiogram done on May 31, 2018 which showed EF of 55% but severely dilated RV with pulmonary pressure in the range of 50s No evidence of pulmonary fibrosis. COPD (No evidence of COPD exacerbation and as per ICU physician) Continue short acting bronchodilators, Titrate O2 and keep O2 sat above than 85% . continue Bumex as 1 mg daily for now continue home dose statin H/O Paroxysmal atrial fibrillation: Supratherapeutic INR on admission A flutter with RVR and borderline hemodynamic instability on 06/03/18 requiring cardioversion continue Toprol-XL 12.5 mg per day. continue coumadin 2.5 mg daily Monitor blood pressure Blood pressures appear stable currently continue Bumex as 1 mg daily restart home dose hydralazine Acute kidney injury on CKD IV: Baseline Cr around 2 Nephrology service following the patient as per nephrology, diuretics can be resumed seizure like activity As per family, she had an episode of seizure in the past EEG 06/02/18: This electroencephalogram reveals evidence for mild generalized highly nonspecific encephalopathy without lateralizing features and without associated potentially epileptogenic activity Gabapentin Levels pending Neurology "This patient has a history of episodes of tremor interpreted to be seizure. The history giving has been difficult. On this admission, the question of seizure occurred in the setting of hypoxemia. No seizure was witnessed by medical professional per se. Given that she was seriously ill and hypoxic with hypercarbia at that time" and at this point no further treatment interventions or exploratory tests as per neurology Obtain PT/OT Hypothyroidism: Continue Synthroid Abdominal Pain GERD: continue PPI No acute pathologies seen on CT abdomen on 06/03/18 1. Cirrhotic morphology of the liver with trace abdominal pelvic ascites . 2. Cholelithiasis without CT evidence of acute cholecystitis. 3. No bowel obstruction or focal bowel wall thickening. 4. Colonic diverticulosis without diverticulitis. 5. Small right and trace left pleural effusions with bibasilar consolidative opacities suggesting atelectasis or pneumonia H/O DM II: Diet Controlled A1C:6.0 Continue ISS Monitor BGs DVT Px: anticoagulated on coumadin Code status: DNR/DNI Disposition: discontinue romero, will need PT/OT, encourage ambulation, currently restarting more home medications, monitor for side effects Vital Signs: Date Time Temp Pulse Resp B/P (MAP) Pulse Ox O2 Delivery O2 Flow Rate FiO2 06/06/18 08:00 Nasal Cannula 5.0 06/06/18 07:59 37.2 60 19 117/69 (85) 91 Nasal Cannula 5.0 06/06/18 03:50 37.1 52 16 124/58 (80) 93 CPAP 50 06/06/18 01:50 52 94 50 06/05/18 23:50 36.7 54 16 121/64 (83) 92 CPAP 50 06/05/18 23:37 53 92 50 06/05/18 20:35 36.7 60 20 98/60 (73) 90 Nasal Cannula 5.0 06/05/18 20:00 Nasal Cannula 5.0 06/05/18 15:53 91 Nasal Cannula 5.0 06/05/18 15:30 37.4 65 16 136/72 (93) 89 Nasal Cannula 5.0 06/05/18 15:00 Nasal Cannula 5.0 06/05/18 10:52 36.9 61 20 132/74 (93) 92 Nasal Cannula 5.0 Lab Results: Results Past 24 Hours Test 06/05/18 11:14 06/05/18 16:45 06/05/18 20:29 06/06/18 06:00 Range/Units Bedside Glucose 98 111 137 70-90 mg/dl Prothrombin Time 20.8 9.0-12.0 SECONDS Prothromb Time International Ratio 2.0 0.9-1.1 Test 06/06/18 07:27 Range/Units Bedside Glucose 97 70-90 mg/dl
[2018-06-06 09:58] LABS: ALBUMIN 2.6 gm/dl (3.4-5.0); CALCIUM 8.6 mg/dl (8.5-10.1); CREATININE 2.16 mg/dl (0.60-1.20); POTASSIUM 4.5 mmol/L (3.5-5.1)
[2018-06-06 10:01] LABS: PHOSPHORUS 3.4 mg/dl (2.5-4.9); TOTAL PROTEIN 6.1 gm/dl (6.4-8.2)
--- NOTE | 2018-06-06 12:14 | PROGRESS NOTE ---
DATE: 06/06/2018 Patient seen and examined. Chart, medications, telemetry reviewed. SUBJECTIVE: Patient appears brighter today, sitting out of bed in chair. Denies any dizziness or lightheadedness. Notes no worsening shortness of breath. Has been taking medications. OBJECTIVE: VITAL SIGNS: Heart rate 60, blood pressure is 117/69, O2 saturations are 91% on nasal cannula at 5 liters. NECK: Thick. There is no distinct jugular venous distention. LUNGS: Notable for diminished breath sounds diffusely. CARDIOVASCULAR: Regular. Telemetry reveals no recurrence of atrial flutter. ABDOMEN: Soft. EXTREMITIES: Reveal trace pedal edema. LABORATORY DATA: Sodium is 141, potassium is 4.5, chloride is 104, bicarb is 32, BUN is 95, creatinine is 2.16. IMPRESSION AND PLAN: Complex 72-year-old female with history of chronic right heart failure secondary to cor pulmonale, admitted with [id number] respiratory failure, course complicated by transient atrial flutter requiring synchronized electrical cardioversion. She is maintained sinus with lower dose Toprol, would continue current dosing. Bumex has been restarted. Volume status appears to be stable. Blood pressures are controlled. No adjustments made in medical therapies currently today. Would continue current course.
--- NOTE | 2018-06-06 12:48 | Palliative Care Progress Note ---
Palliative Care Progress Note Date of Service Jun 06, 2018. Subjective Pt evaluation today including: conversation w/ patient, physical exam, chart review Pain: none at this time PO Intake: tolerating diet Voiding: incontinence (after Watson removal today) Patient is sitting up in chair. Nursing reports that patient sleeps most of the time. She currently has no complaints other than she is having some incontinence after Watson removed. Patient states she still has the goal of getting home independently at some point. Review of Systems Constitutional: + weakness, No fever, No chills ENT: No trouble swallowing Respiratory: + wheezing, + dyspnea on exertion, No cough, No shortness of breath Cardiac: No chest pain, No edema Abdomen: No pain, No nausea, No vomiting Female : + incontinence Psychiatric: No depression symptoms, No anxiety Objective Vital Signs Date Time Temp Pulse Resp B/P (MAP) Pulse Ox O2 Delivery O2 Flow Rate FiO2 06/06/18 11:58 36.7 51 19 115/63 (80) 92 Nasal Cannula 5.0 06/06/18 08:00 Nasal Cannula 5.0 06/06/18 07:59 37.2 60 19 117/69 (85) 91 Nasal Cannula 5.0 06/06/18 03:50 37.1 52 16 124/58 (80) 93 CPAP 50 06/06/18 01:50 52 94 50 06/05/18 23:50 36.7 54 16 121/64 (83) 92 CPAP 50 06/05/18 23:37 53 92 50 06/05/18 20:35 36.7 60 20 98/60 (73) 90 Nasal Cannula 5.0 06/05/18 20:00 Nasal Cannula 5.0 06/05/18 15:53 91 Nasal Cannula 5.0 06/05/18 15:30 37.4 65 16 136/72 (93) 89 Nasal Cannula 5.0 06/05/18 15:00 Nasal Cannula 5.0 Physical Exam General Appearance: no apparent distress, + obese ENT: hearing grossly normal Neck: supple, no JVD Respiratory/Chest: no respiratory distress, no accessory muscle use, + decreased breath sounds, + wheezing (expiratory) Cardiovascular: regular rate, rhythm, + normal peripheral pulses Abdomen: normal bowel sounds, non tender, soft Neurologic/Psychiatric: alert, normal mood/affect, oriented x 3 Laboratory Results Last 24 Hours Test 06/05/18 16:45 7/12/18 20:29 06/06/18 06:00 06/06/18 07:27 Bedside Glucose 111 mg/dl 137 mg/dl 97 mg/dl Prothrombin Time 20.8 SECONDS Prothromb Time International Ratio 2.0 Sodium Level 141 mmol/L Potassium Level 4.5 mmol/L Chloride Level 104 mmol/L Carbon Dioxide Level 32 mmol/L Anion Gap 5.0 mmol/L Blood Urea Nitrogen 95 mg/dl Creatinine 2.16 mg/dl Est Creatinine Clear Calc Drug Dose 17.9 ml/min Estimated GFR () 25.5 Estimated GFR (Non- 22.0 BUN/Creatinine Ratio 43.8 Random Glucose 89 mg/dl Calcium Level 8.6 mg/dl Phosphorus Level 3.4 mg/dl Magnesium Level 2.4 mg/dl Total Bilirubin 0.5 mg/dl Aspartate Amino Transf (AST/SGOT) 31 U/L Alanine Aminotransferase (ALT/SGPT) 34 U/L Alkaline Phosphatase 55 U/L Total Protein 6.1 gm/dl Albumin 2.6 gm/dl Globulin 3.5 gm/dl Albumin/Globulin Ratio 0.7 Test 06/06/18 11:16 Bedside Glucose 90 mg/dl Assessment and Plan Problem list: Abdominal pain- improved Weakness Respiratory failure- improved Right sided and diastolic heart failure Goals of care Palliative care recs: -DNR/DNI. Patient does not want to be reintubated. -Uncertain of long-term goals, especially related to her medical care. She is from [facility] and plan currently is for her to return there. Patient states her goal is to get better and stronger so can live in an apartment independently. -I will continue to follow during hospitalization and be of assistance in any way I can. POLST form would be helpful prior to discharge since patient wishes to be DNR/DNI. -Does have living will on chart which states at end-stage, she does not want life-prolonging measures. Thank you kindly for this consult. Total time spent 25 minutes. Greater than 50% of time with the patient was spent on counseling and coordinating care. Palliative Performance Scale: 50 %
--- NOTE | 2018-06-06 13:12 | PROGRESS NOTE ---
DATE: 06/06/2018 SUBJECTIVE: No new issues overnight. She was started on Bumex, but her urine output is not impressive. She made only 1200 mL of urine. Denies any major shortness of breath. She is awake and alert, interactive and was actually eating her lunch. PHYSICAL EXAMINATION: VITAL SIGNS: Blood pressure 115/63, 5 liter oxygen and a pulse ox of 92%, temperature 36.7, heart rate 51 per minute. HEENT: Mucous membrane is moist. NECK: Supple. No jugular venous distention. CHEST: Decreased breath sounds bilaterally with occasional wheezing and crackles. CARDIOVASCULAR: Regular rate and rhythm, 3/6 systolic murmur heard. ABDOMEN: Soft, nontender. EXTREMITIES: 1+ pedal edema bilaterally. LABORATORY TESTS: WBC count 5.28, hemoglobin 11.2, platelet count 144. Sodium 141, potassium 4.5, BUN 95, creatinine 2.16, BNP 32,845. Albumin 2.6. Chest x-ray done 3 days ago shows pulmonary vascular congestion as well as cardiomegaly. ASSESSMENT AND PLAN: A 72-year-old female with CKD stage IV due to hypertension and solitary kidney with a baseline creatinine of around 2.2 and longstanding right heart failure, who presented on May 31 with possible seizure activity versus hypoxia-induced neurological deficits. 1. YAZMIN and CKD 4, nonoliguric in the beginning, but now urine output is higher . We will increase the Bumex dose to 1 mg twice daily. 2. History of hyperkalemia. This should get better with the use of Bumex. Continue daily labs. BUN is still high and that is to be expected given her right heart failure issues. but there is no question, She does need some more aggressive loop diuretics. Continue daily labs. MTDD
[2018-06-06] MEDS: ONDANSETRON INJ 2 MG/ML 2 ML VIAL IV PRN (15:32)
[2018-06-06] MEDS: WARFARIN SOD 2.5 MG TAB PO SCH (15:33)
[2018-06-06] MEDS: PRAVASTATIN SOD 40 MG TAB PO SCH (17:12)
[2018-06-06] MEDS: FLUTICASONE/SALMETEROL 250/50 (ADVAIR) 14 PUFF/1 INHALER INH SCH (21:05)
[2018-06-06] MEDS: HydrALAZINE 10 MG TAB PO SCH (21:28)
[2018-06-07] VITALS (8 sets, daily range): BP systolic 107–159; BP diastolic 55–88; PULSE 60–107; TEMP 36.4–37.4; O2SAT 90–95
[2018-06-07 06:38] LABS: ALBUMIN 2.7 gm/dl (3.4-5.0); CALCIUM 8.4 mg/dl (8.5-10.1); CREATININE 1.83 mg/dl (0.60-1.20); POTASSIUM 3.9 mmol/L (3.5-5.1)
[2018-06-07] MEDS: LEVOTHYROXINE 75 MCG TAB PO SCH (06:43)
[2018-06-07] MEDS: INSULIN ASPART 100 UNITS/ML 3 ML PEN SC SCH ×4 (07:00→21:00)
[2018-06-07] MEDS: FLUTICASONE/SALMETEROL 250/50 (ADVAIR) 14 PUFF/1 INHALER INH SCH ×2 (09:10→21:18)
[2018-06-07] MEDS: HydrALAZINE 10 MG TAB PO SCH ×2 (09:11→21:18)
[2018-06-07] MEDS: PANTOprazole SOD 40 MG TAB PO SCH (09:11)
[2018-06-07] MEDS: METOPROLOL SUCC 25MG EXT REL TAB PO SCH (09:12)
[2018-06-07] MEDS: BUMETANIDE 1 MG TAB PO SCH ×2 (09:13→16:36)
[2018-06-07] MEDS: OXYBUTYNIN CHLORIDE 5 MG TABCR PO SCH (12:33)
[2018-06-07] MEDS: PRAVASTATIN SOD 40 MG TAB PO SCH (16:37)
[2018-06-07] MEDS: WARFARIN SOD 2.5 MG TAB PO SCH (16:37)
--- NOTE | 2018-06-07 17:50 | Progress Note ---
Internal Med Progress Note Date of Service: Jun 07, 2018. Provider Documentation: SUBJECTIVE: Patient examined today on telemetry [place]. Generally has been sinus bradycardia on telemetry. patient denies chest pain or acute shortness of breath. Patient's volume status evaluated an nephrology suggested to increase diuretics OBJECTIVE: General Appearance: no acute distress Head: normocephalic, Atraumatic Eyes: normal inspection Neck: supple, Trachea midline Respiratory/Chest: fair air entry, no wheezing, no use of accessory muscles, on nasal cannula Cardiovascular: sinus bradycardia Abdomen/GI:Soft: no focal tenderness on palpation, Bowel sounds present Extremities/Musculoskelatal: lower extremity edema Neurologic/Psych: awake and alert, verbal ASSESSMENT & PLAN: 72 year old female with CKD stage 4 d/t HTN and solitary kidney status with baseline creatinine 1.8-2.0 who presented for possible seizure like activity and ARF vs hypoxia-induced neurologic complaints being consulted for worsening renal function. Patient was admitted after having a tremors s/p fall at [facility]. BG levels were 115 per EMS. Initially, she was talking okay in the ER and she was placed on BiPAP. Then again she started shaking and she became somnolent and her oxygen saturation had dropped to 87% to 88% on BiPAP. Patient was intubated. CXR with bilateral pleural effusions and congestion and patient was given lasix 40mg IV. placed on bumex 1mg IV q 24 x 3 days as well during admission. extubated 06/01/18. Also with afib/aflutter with successful electrocardioversion 06/03/18 Acute on chronic hypoxic respiratory failure (multifactorial causes): History of ASD repair over 20 years ago. Right sided heart failure ; Diastolic CHF, Pulmonary HTN (chronic most recent PAS of 63.); Chronic cor Pulmonale; echocardiogram done on May 31, 2018 which showed EF of 55% but severely dilated RV with pulmonary pressure in the range of 50s No evidence of pulmonary fibrosis. COPD (No evidence of COPD exacerbation and as per ICU physician) Continue short acting bronchodilators, Titrate O2 and keep O2 sat above than 85% . continue home dose statin increasing Bumex to 2 mg BID as per nephrology H/O Paroxysmal atrial fibrillation: Supratherapeutic INR on admission A flutter with RVR and borderline hemodynamic instability on 06/03/18 requiring cardioversion continue Toprol-XL 12.5 mg per day. continue coumadin 2.5 mg daily Monitor blood pressure Blood pressures appear stable currently continue home dose hydralazine increasing Bumex to 2 mg BID as per nephrology Acute kidney injury on CKD IV: Baseline Cr around 2 Nephrology service following the patient increasing Bumex to 2 mg BID as per nephrology; creatinine today is 1.83 and will expect creatinine to increase with increased diuretics seizure like activity As per family, she had an episode of seizure in the past EEG 06/02/18: This electroencephalogram reveals evidence for mild generalized highly nonspecific encephalopathy without lateralizing features and without associated potentially epileptogenic activity Gabapentin Levels pending Neurology "This patient has a history of episodes of tremor interpreted to be seizure. The history giving has been difficult. On this admission, the question of seizure occurred in the setting of hypoxemia. No seizure was witnessed by medical professional per se. Given that she was seriously ill and hypoxic with hypercarbia at that time" and at this point no further treatment interventions or exploratory tests as per neurology PT/OT Hypothyroidism: Continue Synthroid Abdominal Pain resolved GERD: continue PPI No acute pathologies seen on CT abdomen on 06/03/18 1. Cirrhotic morphology of the liver with trace abdominal pelvic ascites . 2. Cholelithiasis without CT evidence of acute cholecystitis. 3. No bowel obstruction or focal bowel wall thickening. 4. Colonic diverticulosis without diverticulitis. 5. Small right and trace left pleural effusions with bibasilar consolidative opacities suggesting atelectasis or pneumonia H/O DM II: Diet Controlled A1C:6.0 Continue ISS Monitor BGs DVT Px: anticoagulated on coumadin Code status: DNR/DNI Disposition:increasing Bumex as per nephrology, continue to monitor the fluid and volume status as inpatient Vital Signs: Date Time Temp Pulse Resp B/P (MAP) Pulse Ox O2 Delivery O2 Flow Rate FiO2 06/07/18 16:39 Nasal Cannula 3.0 06/07/18 15:31 37.3 64 20 115/65 (82) 91 Nasal Cannula 3.0 06/07/18 11:47 36.9 60 19 115/55 (75) 90 Nasal Cannula 3.0 06/07/18 10:58 Nasal Cannula 3.0 06/07/18 04:04 36.6 107 20 107/61 (76) 94 BiPAP 06/07/18 00:05 36.6 62 26 137/76 (96) 92 BiPAP 06/06/18 22:22 56 90 50 06/06/18 20:13 92 Nasal Cannula 5.0 06/06/18 19:22 37.2 60 18 129/65 (86) 92 Nasal Cannula 5.0 Lab Results: Results Past 24 Hours Test 06/06/18 20:24 06/07/18 05:52 06/07/18 07:08 06/07/18 11:17 Range/Units Bedside Glucose 112 86 104 70-90 mg/dl Sodium Level 142 136-145 mmol/L Potassium Level 3.9 3.5-5.1 mmol/L Chloride Level 104 98-107 mmol/L Carbon Dioxide Level 35 21-32 mmol/L Anion Gap 3.0 3-11 mmol/L Blood Urea Nitrogen 82 7-18 mg/dl Creatinine 1.83 0.60-1.20 mg/dl Est Creatinine Clear Calc Drug Dose 20.5 ml/min Estimated GFR () 31.2 Estimated GFR (Non- 26.9 BUN/Creatinine Ratio 44.7 10-20 Random Glucose 85 70-99 mg/dl Calcium Level 8.4 8.5-10.1 mg/dl Total Bilirubin 0.8 0.2-1 mg/dl Aspartate Amino Transf (AST/SGOT) 31 15-37 U/L Alanine Aminotransferase (ALT/SGPT) 33 12-78 U/L Alkaline Phosphatase 58 45-117 U/L Total Protein 6.0 6.4-8.2 gm/dl Albumin 2.7 3.4-5.0 gm/dl Globulin 3.3 2.5-4.0 gm/dl Albumin/Globulin Ratio 0.8 0.9-2 Test 06/07/18 16:38 Range/Units Bedside Glucose 105 70-90 mg/dl
[2018-06-08] VITALS (8 sets, daily range): BP systolic 120–133; BP diastolic 62–71; PULSE 58–73; TEMP 36.9–37.2; O2SAT 89–94
[2018-06-08] MEDS: LEVOTHYROXINE 75 MCG TAB PO SCH (05:44)
[2018-06-08 06:50] LABS: INR 1.6 (0.9-1.1)
[2018-06-08] MEDS: INSULIN ASPART 100 UNITS/ML 3 ML PEN SC SCH ×4 (07:00→21:00)
[2018-06-08 07:13] LABS: ALBUMIN 2.7 gm/dl (3.4-5.0); CALCIUM 8.6 mg/dl (8.5-10.1); CREATININE 1.73 mg/dl (0.60-1.20)
[2018-06-08] MEDS: METOPROLOL SUCC 25MG EXT REL TAB PO SCH (10:48)
[2018-06-08] MEDS: PANTOprazole SOD 40 MG TAB PO SCH (10:48)
[2018-06-08] MEDS: HydrALAZINE 10 MG TAB PO SCH (10:48)
[2018-06-08] MEDS: OXYBUTYNIN CHLORIDE 5 MG TABCR PO SCH (10:48)
[2018-06-08] MEDS: FLUTICASONE/SALMETEROL 250/50 (ADVAIR) 14 PUFF/1 INHALER INH SCH ×2 (10:49→21:13)
[2018-06-08] MEDS: BUMETANIDE 1 MG TAB PO SCH ×2 (10:49→17:07)
[2018-06-08] MEDS ORDERED: ALUMINUM/MAGNESIUM SUSP 30 ML UDC PO STA (13:27)
--- NOTE | 2018-06-08 16:44 | DIAGNOSTIC IMAGING REPORT ---
CHEST ONE VIEW PORTABLE CLINICAL HISTORY: rule out pulmonary congestion dyspnea COMPARISON STUDY: 06/03/2018 FINDINGS: Slight increase in cardiac size. Mild increase in pulmonary vasculature. Small left pleural effusion versus left basilar atelectasis. IMPRESSION: Findings consistent with developing congestive heart failure. The above report was generated using voice recognition software. It may contain grammatical, syntax or spelling errors. Electronically signed by: Luis Fernando Keene M.D. 06/08/2018 4:43 PM Dictated Date/Time: 06/08/2018 4:42 PM
[2018-06-08] MEDS: WARFARIN SOD 4 MG TAB PO SCH (17:07)
[2018-06-08] MEDS: PRAVASTATIN SOD 40 MG TAB PO SCH (17:08)
--- NOTE | 2018-06-08 17:50 | Progress Note ---
Internal Med Progress Note Date of Service: Jun 08, 2018. Provider Documentation: SUBJECTIVE: Patient examined today on telemetry [place]. patient denies chest pain. She does not repeat of more shortness of breath but signs of more congestion in lung nayak. OBJECTIVE: General Appearance: no acute distress Head: normocephalic, Atraumatic Eyes: normal inspection Neck: supple, Trachea midline Respiratory/Chest: some crackles of right lung nayak, no wheezing, no use of accessory muscles, on nasal cannula Cardiovascular: sinus bradycardia Abdomen/GI:Soft: no focal tenderness on palpation, Bowel sounds present Extremities/Musculoskelatal: lower extremity edema Neurologic/Psych: awake and alert, verbal ASSESSMENT & PLAN: 72 year old female with CKD stage 4 d/t HTN and solitary kidney status with baseline creatinine 1.8-2.0 who presented for possible seizure like activity and ARF vs hypoxia-induced neurologic complaints being consulted for worsening renal function. Patient was admitted after having a tremors s/p fall at [place]. BG levels were 115 per EMS. Initially, she was talking okay in the ER and she was placed on BiPAP. Then again she started shaking and she became somnolent and her oxygen saturation had dropped to 87% to 88% on BiPAP. Patient was intubated. CXR with bilateral pleural effusions and congestion and patient was given lasix 40mg IV. placed on bumex 1mg IV q 24 x 3 days as well during admission. extubated 06/01/18. Also with afib/aflutter with successful electrocardioversion 06/03/18 Acute on chronic hypoxic respiratory failure (multifactorial causes): History of ASD repair over 20 years ago. Right sided heart failure ; Diastolic CHF, Pulmonary HTN (chronic most recent PAS of 63.); Chronic cor Pulmonale; echocardiogram done on May 31, 2018 which showed EF of 55% but severely dilated RV with pulmonary pressure in the range of 50s No evidence of pulmonary fibrosis. COPD (No evidence of COPD exacerbation and as per ICU physician) Continue short acting bronchodilators, Titrate O2 and keep O2 sat above than 85% . continue home dose statin 06/08/18: CXR: Slight increase in cardiac size. Mild increase in pulmonary vasculature. Small left pleural effusion versus left basilar atelectasis. will be transitioning from Bumex 2 mg BID to Lasix 80 mg IV BID as per nephrology for more aggressive diuresis H/O Paroxysmal atrial fibrillation: Supratherapeutic INR on admission A flutter with RVR and borderline hemodynamic instability on 06/03/18 requiring cardioversion continue Toprol-XL 12.5 mg per day. INR 1.6 on 06/08/18: Coumadin increased to 4 mg daily Monitor blood pressure increasing diuretics and will hold off home dose hydralazine for now Acute kidney injury on CKD IV: Baseline Cr around 2 Nephrology service following the patient will expect creatinine to increase with increased diuretics seizure like activity As per family, she had an episode of seizure in the past EEG 06/02/18: This electroencephalogram reveals evidence for mild generalized highly nonspecific encephalopathy without lateralizing features and without associated potentially epileptogenic activity Gabapentin Levels pending Neurology "This patient has a history of episodes of tremor interpreted to be seizure. The history giving has been difficult. On this admission, the question of seizure occurred in the setting of hypoxemia. No seizure was witnessed by medical professional per se. Given that she was seriously ill and hypoxic with hypercarbia at that time" and at this point no further treatment interventions or exploratory tests as per neurology PT/OT Hypothyroidism: Continue Synthroid Abdominal Pain resolved GERD: continue PPI No acute pathologies seen on CT abdomen on 06/03/18 1. Cirrhotic morphology of the liver with trace abdominal pelvic ascites . 2. Cholelithiasis without CT evidence of acute cholecystitis. 3. No bowel obstruction or focal bowel wall thickening. 4. Colonic diverticulosis without diverticulitis. 5. Small right and trace left pleural effusions with bibasilar consolidative opacities suggesting atelectasis or pneumonia H/O DM II: Diet Controlled A1C:6.0 Continue ISS Monitor BGs DVT Px: coumadin Code status: DNR/DNI Disposition:increasing diuretics as per nephrology, continue to monitor the fluid and volume status as inpatient Vital Signs: Date Time Temp Pulse Resp B/P (MAP) Pulse Ox O2 Delivery O2 Flow Rate FiO2 06/08/18 16:20 Nasal Cannula 3.0 06/08/18 15:06 37.1 73 19 121/71 (88) 90 Nasal Cannula 3.0 06/08/18 10:40 37.2 69 19 122/68 (86) 91 06/08/18 08:00 Nasal Cannula 3.0 06/08/18 07:58 36.9 58 19 122/67 (85) 90 Nasal Cannula 3.0 06/08/18 05:00 36.9 67 20 121/62 (81) 91 BiPAP 06/08/18 01:51 65 89 40 06/07/18 23:21 69 91 40 06/07/18 23:07 37.1 72 16 131/66 (87) 92 Nasal Cannula 3.0 06/07/18 20:09 Nasal Cannula 3.0 06/07/18 19:07 37.4 70 18 119/67 (84) 91 Nasal Cannula 3.0 Lab Results: Results Past 24 Hours Test 06/07/18 20:18 06/08/18 06:23 06/08/18 07:21 06/08/18 11:18 Range/Units Bedside Glucose 149 105 123 70-90 mg/dl Prothrombin Time 16.9 9.0-12.0 SECONDS Prothromb Time International Ratio 1.6 0.9-1.1 Sodium Level 144 136-145 mmol/L Potassium Level 4.0 3.5-5.1 mmol/L Chloride Level 104 98-107 mmol/L Carbon Dioxide Level 36 21-32 mmol/L Anion Gap 4.0 3-11 mmol/L Blood Urea Nitrogen 70 7-18 mg/dl Creatinine 1.73 0.60-1.20 mg/dl Est Creatinine Clear Calc Drug Dose 21.7 ml/min Estimated GFR () 33.4 Estimated GFR (Non- 28.8 BUN/Creatinine Ratio 40.5 10-20 Random Glucose 86 70-99 mg/dl Calcium Level 8.6 8.5-10.1 mg/dl Total Bilirubin 0.7 0.2-1 mg/dl Aspartate Amino Transf (AST/SGOT) 25 15-37 U/L Alanine Aminotransferase (ALT/SGPT) 29 12-78 U/L Alkaline Phosphatase 56 45-117 U/L Total Protein 6.0 6.4-8.2 gm/dl Albumin 2.7 3.4-5.0 gm/dl Globulin 3.3 2.5-4.0 gm/dl Albumin/Globulin Ratio 0.8 0.9-2 Test 06/08/18 16:10 Range/Units Bedside Glucose 99 70-90 mg/dl
[2018-06-08] MEDS: FUROSEMIDE INJ 80 MG in SYRINGE 0 ML IV SCH (17:55)
--- NOTE | 2018-06-08 20:20 | PROGRESS NOTE ---
DATE: 06/08/2018 SUBJECTIVE: No new issues overnight; however, she is still short of breath and has significant lower extremity edema even with the Bumex 2 mg twice daily. She really has not diuresed much. Chest x-ray that was done just now still shows congestive heart failure. PHYSICAL EXAMINATION: VITAL SIGNS: Blood pressure 121/71, 90% oxygen on 3 liter nasal cannula, pulse rate 73 per minute, temperature 37.1. HEENT: Mucous membrane is moist. NECK: Supple. Jugular venous distention is present. CHEST: Decreased breath sounds bilaterally with occasional crackles. CARDIOVASCULAR: Regular rate and rhythm, 3/6 systolic murmur heard. ABDOMEN: Soft, nontender. EXTREMITIES: Shows 2+ pedal edema bilaterally. LABORATORY TESTS: Reviewed. Sodium 144, potassium 4.0, BUN 70, creatinine 1.73, hemoglobin 11.2. Chest x-ray showed CHF. ASSESSMENT AND PLAN: A 72-year-old female with chronic kidney disease stage IV due to hypertension and solitary kidney with a baseline creatinine of around 2.2 and longstanding right heart failure, presented on 05/31/2018 with possible seizure activity versus hypoxia-induced neurological deficit. 1. Acute kidney injury on chronic kidney disease IV. She has clear cut evidence of fluid overload and needs to be aggressively diuresed. We will increase the dose of loop diuretics. Discussed the case with Dr. Olson, the hospitalist and we have decided to use Lasix 80 mg IV x1 now and twice daily. Continue to do labs daily. Continue to monitor input and output charting. MTDD
[2018-06-08] MEDS: ACETAMINOPHEN 325 MG TAB PO PRN (21:14)
[2018-06-09] VITALS (9 sets, daily range): BP systolic 100–148; BP diastolic 54–68; PULSE 60–76; TEMP 36.7–37.4; O2SAT 88–92
[2018-06-09] MEDS: LEVOTHYROXINE 75 MCG TAB PO SCH (06:30)
[2018-06-09] MEDS: INSULIN ASPART 100 UNITS/ML 3 ML PEN SC SCH ×4 (07:00→20:48)
[2018-06-09 07:44] LABS: ALBUMIN 2.9 gm/dl (3.4-5.0); CALCIUM 8.8 mg/dl (8.5-10.1); CREATININE 1.58 mg/dl (0.60-1.20); PHOSPHORUS 2.2 mg/dl (2.5-4.9); POTASSIUM 4.1 mmol/L (3.5-5.1); TOTAL PROTEIN 6.2 gm/dl (6.4-8.2)
[2018-06-09] MEDS: FLUTICASONE/SALMETEROL 250/50 (ADVAIR) 14 PUFF/1 INHALER INH SCH ×2 (09:12→20:47)
[2018-06-09] MEDS: FUROSEMIDE INJ 80 MG in SYRINGE 0 ML IV SCH ×2 (09:13→16:11)
[2018-06-09] MEDS: PANTOprazole SOD 40 MG TAB PO SCH (09:13)
[2018-06-09] MEDS: OXYBUTYNIN CHLORIDE 5 MG TABCR PO SCH (09:13)
[2018-06-09] MEDS: METOPROLOL SUCC 25MG EXT REL TAB PO SCH (09:14)
[2018-06-09] MEDS: ACETAMINOPHEN 325 MG TAB PO PRN (15:53)
[2018-06-09] MEDS: WARFARIN SOD 4 MG TAB PO SCH (16:11)
--- NOTE | 2018-06-09 17:17 | Nephrology Progress Note ---
Nephrology Progress Note Date of Service: Jun 09, 2018. Subjective Patient feels well today denies any shortness of breath. Main problem is lower extremity edema. Objective Date Time Temp Pulse Resp B/P (MAP) Pulse Ox O2 Delivery O2 Flow Rate FiO2 06/09/18 15:10 36.8 75 19 100/62 (75) 92 Nasal Cannula 3.0 06/09/18 11:37 36.8 73 22 137/68 (91) 88 Nasal Cannula 3.0 06/09/18 09:00 Nasal Cannula 3.0 06/09/18 07:57 37.1 60 20 134/58 (83) 90 Nasal Cannula 3.0 06/09/18 04:35 36.7 62 27 148/54 (85) 91 BiPAP 40 06/09/18 01:52 61 91 40 06/08/18 23:36 61 90 40 06/08/18 23:15 37.0 69 19 120/66 (84) 91 Nasal Cannula 3.0 06/08/18 20:02 Nasal Cannula 3.0 06/08/18 19:00 36.9 66 18 133/71 (91) 94 Nasal Cannula 3.0 Physical Exam: [id number], no acute distress Eyes-pupils equal and reactive to light ENT-throat is normal by inspection Neck-neck is supple no JVD Lungs-bilateral crackles Heart-S1 and S2 regular rate and rhythm. No murmurs Abdomen-abdomen soft nondistended bowel sounds are present Extremities-1+ edema bilaterally, legs are warm Neuro-oriented 3, no focal neurological deficits Current Inpatient Medications Medications (Trade) Dose Ordered Sig/Mehdi Route Start Time Stop Time Status Last Admin Dose Admin Ondansetron HCl (Zofran Inj) 4 mg Q6H PRN IV 05/31/18 00:15 06/30/18 00:14 06/06/18 15:32 4 MG Albuterol (Ventolin Hfa Inhaler) 2 puffs Q6 PRN INH 05/31/18 00:45 06/30/18 00:44 Glucose (Glucose 40% Gel) 15-30 GRAMS 15 GRAMS... UD PRN PO 05/31/18 09:15 06/30/18 09:14 Glucose (Glucose Chew Tab) 4-8 Tablets 4 Tabl... UD PRN PO 05/31/18 09:15 06/30/18 09:14 Dextrose (Dextrose 50% 50ML Syringe) 25-50ML 25ML FOR ... UD PRN IV 05/31/18 09:15 06/30/18 09:14 Glucagon (Glucagon Inj) 1 mg UD PRN SQ 05/31/18 09:15 06/30/18 09:14 Carbohydrates (Carbohydrates For Hypoglycemia) 15-30 GRAMS 15 grams if BSG 54-69... UD PRN PO 05/31/18 09:15 06/30/18 09:14 Pantoprazole Sodium (Protonix Tab) 40 mg QAM PO 06/02/18 09:00 07/02/18 08:59 06/09/18 09:13 40 MG Levothyroxine Sodium (Synthroid Tab) 75 mcg DAILYBB PO 06/02/18 09:00 07/02/18 08:59 06/09/18 06:30 75 MCG Insulin Aspart (novoLOG ASPART) SLIDING SCALE If C... ACHS SC 06/02/18 16:00 07/02/18 15:59 06/02/18 16:56 2 UNITS Acetaminophen (Tylenol Tab) 650 mg Q6H PRN PO 06/02/18 18:45 07/02/18 18:44 06/09/18 15:53 650 MG Miscellaneous (Soap Suds Enema) 1 ea Q2HWA PRN HI 06/03/18 10:30 07/03/18 10:29 06/03/18 11:59 1 EA Metoprolol Succinate (Toprol Xl Tab) 12.5 mg QAM PO 06/05/18 09:00 07/05/18 08:59 06/09/18 09:14 12.5 MG Salmeterol Xinafoate/ Fluticasone (Advair Diskus 250/50 Inh) 1 puff BID INH 06/06/18 21:00 07/06/18 20:59 06/09/18 09:12 1 PUFF Hydralazine HCl (Apresoline Tab) 10 mg BID PO 06/06/18 21:00 07/06/18 20:59 Future Hold 06/08/18 10:48 10 MG Oxybutynin Chloride (Ditropan-Xl Tab) 5 mg DAILY PO 06/07/18 09:00 07/07/18 08:59 06/09/18 09:13 5 MG Pravastatin Sodium (Pravachol Tab) 80 mg DAILY@17 PO 06/06/18 17:00 07/06/18 16:59 06/08/18 17:08 80 MG Warfarin Sodium (Coumadin Tab) 4 mg DAILY@16 PO 06/08/18 16:00 07/08/18 15:59 06/09/18 16:11 4 MG Furosemide 80 mg/ Syringe 8 ml @ 4 mls/min BID17 IV 06/08/18 17:30 07/08/18 17:29 06/09/18 16:11 4 MLS/MIN Last 24 Hours Test 06/08/18 20:18 06/09/18 06:49 06/09/18 07:10 06/09/18 11:06 Bedside Glucose 155 mg/dl 96 mg/dl 109 mg/dl Sodium Level 143 mmol/L Potassium Level 4.1 mmol/L Chloride Level 100 mmol/L Carbon Dioxide Level 39 mmol/L Anion Gap 3.0 mmol/L Blood Urea Nitrogen 54 mg/dl Creatinine 1.58 mg/dl Est Creatinine Clear Calc Drug Dose 23.8 ml/min Estimated GFR () 37.2 Estimated GFR (Non- 32.1 BUN/Creatinine Ratio 34.2 Random Glucose 84 mg/dl Calcium Level 8.8 mg/dl Phosphorus Level 2.2 mg/dl Magnesium Level 1.9 mg/dl Total Bilirubin 0.7 mg/dl Aspartate Amino Transf (AST/SGOT) 25 U/L Alanine Aminotransferase (ALT/SGPT) 25 U/L Alkaline Phosphatase 51 U/L Total Protein 6.2 gm/dl Albumin 2.9 gm/dl Globulin 3.3 gm/dl Albumin/Globulin Ratio 0.9 Test 06/09/18 16:27 Bedside Glucose 121 mg/dl Assessment & Plan This is a 72-year-old female with 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 1. Acute on CKD: Secondary to cardiorenal syndrome this was likely. Her renal function is improving with diuresis. Monitor renal function with daily BMP. Renal dose medications for current GFR. 2. Metabolic alkalosis: Likely due to contraction alkalosis in setting of diuresis. Recommend reducing dose of Lasix to 40 mg IV twice daily. Renal following.
--- NOTE | 2018-06-09 17:21 | Progress Note ---
Internal Med Progress Note Date of Service: Jun 09, 2018. Provider Documentation: SUBJECTIVE: Patient examined today on telemetry [place]. patient denies chest pain. Patient denies worsening shortness of breath OBJECTIVE: General Appearance: no acute distress Head: normocephalic, Atraumatic Eyes: normal inspection Neck: supple, Trachea midline Respiratory/Chest: lower lung nayak sounds diminished, no wheezing, no use of accessory muscles, on nasal cannula Cardiovascular: sinus bradycardia Abdomen/GI:Soft: no focal tenderness on palpation, Bowel sounds present Extremities/Musculoskelatal: lower extremity edema Neurologic/Psych: awake and alert, verbal ASSESSMENT & PLAN: 72 year old female with CKD stage 4 d/t HTN and solitary kidney status with baseline creatinine 1.8-2.0 who presented for possible seizure like activity and ARF vs hypoxia-induced neurologic complaints being consulted for worsening renal function. Patient was admitted after having a tremors s/p fall at [facility]. BG levels were 115 per EMS. Initially, she was talking okay in the ER and she was placed on BiPAP. Then again she started shaking and she became somnolent and her oxygen saturation had dropped to 87% to 88% on BiPAP. Patient was intubated. CXR with bilateral pleural effusions and congestion and patient was given lasix 40mg IV. placed on bumex 1mg IV q 24 x 3 days as well during admission. extubated 06/01/18. Also with afib/aflutter with successful electrocardioversion 06/03/18 Acute on chronic hypoxic respiratory failure (multifactorial causes): History of ASD repair over 20 years ago. Right sided heart failure ; Diastolic CHF, Pulmonary HTN (chronic most recent PAS of 63.); Chronic cor Pulmonale; echocardiogram done on May 31, 2018 which showed EF of 55% but severely dilated RV with pulmonary pressure in the range of 50s No evidence of pulmonary fibrosis. COPD (No evidence of COPD exacerbation and as per ICU physician) Continue short acting bronchodilators, Titrate O2 and keep O2 sat above than 85% . continue home dose statin from hospital admission daily weight of 71 kilogram to 06/07/18 of 64.4 kg, patient appears to have lost a lot of fluid weight However 06/08/18: CXR: Slight increase in cardiac size. Mild increase in pulmonary vasculature. Small left pleural effusion versus left basilar atelectasis. in recent days, patient has had Bumex increased as recommended by nephrology service and was transitioned to 80 mg Lasix mg IV BID starting evening of patient appears to be diuresing well today, will appreciate nephrology recommendations on outpatient diuresis regimen H/O Paroxysmal atrial fibrillation: Supratherapeutic INR on admission A flutter with RVR and borderline hemodynamic instability on 06/03/18 requiring cardioversion continue Toprol-XL 12.5 mg per day. INR 1.6 on 06/08/18: Coumadin increased to 4 mg daily, continue 4 mg daily coumadin for now and check INR tomorrow Monitor blood pressure hold off home dose hydralazine for on increased diuretics Acute kidney injury on CKD IV: baseline creatinine 1.8 to 2.0 Nephrology service following the patient will expect creatinine to increase with increased diuretics seizure like activity As per family, she had an episode of seizure in the past EEG 06/02/18: This electroencephalogram reveals evidence for mild generalized highly nonspecific encephalopathy without lateralizing features and without associated potentially epileptogenic activity Gabapentin Levels pending Neurology "This patient has a history of episodes of tremor interpreted to be seizure. The history giving has been difficult. On this admission, the question of seizure occurred in the setting of hypoxemia. No seizure was witnessed by medical professional per se. Given that she was seriously ill and hypoxic with hypercarbia at that time" and at this point no further treatment interventions or exploratory tests as per neurology PT/OT Hypothyroidism: Continue Synthroid Abdominal Pain resolved GERD: continue PPI No acute pathologies seen on CT abdomen on 06/03/18 1. Cirrhotic morphology of the liver with trace abdominal pelvic ascites . 2. Cholelithiasis without CT evidence of acute cholecystitis. 3. No bowel obstruction or focal bowel wall thickening. 4. Colonic diverticulosis without diverticulitis. 5. Small right and trace left pleural effusions with bibasilar consolidative opacities suggesting atelectasis or pneumonia H/O DM II: Diet Controlled A1C:6.0 Continue ISS Monitor BGs DVT Px: coumadin Code status: DNR/DNI Disposition: will need a stable oral diuresis regimen before patient can be discharged to [facility] Vital Signs: Date Time Temp Pulse Resp B/P (MAP) Pulse Ox O2 Delivery O2 Flow Rate FiO2 06/09/18 15:10 36.8 75 19 100/62 (75) 92 Nasal Cannula 3.0 06/09/18 11:37 36.8 73 22 137/68 (91) 88 Nasal Cannula 3.0 06/09/18 09:00 Nasal Cannula 3.0 06/09/18 07:57 37.1 60 20 134/58 (83) 90 Nasal Cannula 3.0 06/09/18 04:35 36.7 62 27 148/54 (85) 91 BiPAP 40 06/09/18 01:52 61 91 40 06/08/18 23:36 61 90 40 06/08/18 23:15 37.0 69 19 120/66 (84) 91 Nasal Cannula 3.0 06/08/18 20:02 Nasal Cannula 3.0 06/08/18 19:00 36.9 66 18 133/71 (91) 94 Nasal Cannula 3.0 Lab Results: Results Past 24 Hours Test 06/08/18 20:18 06/09/18 06:49 06/09/18 07:10 06/09/18 11:06 Range/Units Bedside Glucose 155 96 109 70-90 mg/dl Sodium Level 143 136-145 mmol/L Potassium Level 4.1 3.5-5.1 mmol/L Chloride Level 100 98-107 mmol/L Carbon Dioxide Level 39 21-32 mmol/L Anion Gap 3.0 3-11 mmol/L Blood Urea Nitrogen 54 7-18 mg/dl Creatinine 1.58 0.60-1.20 mg/dl Est Creatinine Clear Calc Drug Dose 23.8 ml/min Estimated GFR () 37.2 Estimated GFR (Non- 32.1 BUN/Creatinine Ratio 34.2 10-20 Random Glucose 84 70-99 mg/dl Calcium Level 8.8 8.5-10.1 mg/dl Phosphorus Level 2.2 2.5-4.9 mg/dl Magnesium Level 1.9 1.8-2.4 mg/dl Total Bilirubin 0.7 0.2-1 mg/dl Aspartate Amino Transf (AST/SGOT) 25 15-37 U/L Alanine Aminotransferase (ALT/SGPT) 25 12-78 U/L Alkaline Phosphatase 51 45-117 U/L Total Protein 6.2 6.4-8.2 gm/dl Albumin 2.9 3.4-5.0 gm/dl Globulin 3.3 2.5-4.0 gm/dl Albumin/Globulin Ratio 0.9 0.9-2 Test 06/09/18 16:27 Range/Units Bedside Glucose 121 70-90 mg/dl
[2018-06-09] MEDS: PRAVASTATIN SOD 40 MG TAB PO SCH (17:47)
[2018-06-09 22:02] LABS: CALCIUM 8.8 mg/dl (8.5-10.1); CREATININE 1.87 mg/dl (0.60-1.20); POTASSIUM 4.3 mmol/L (3.5-5.1)
[2018-06-10] VITALS (10 sets, daily range): BP systolic 113–135; BP diastolic 52–78; PULSE 63–79; TEMP 36.8–37.5; O2SAT 90–94
[2018-06-10] MEDS: LEVOTHYROXINE 75 MCG TAB PO SCH (05:44)
[2018-06-10 06:30] LABS: HEMATOCRIT 37.1 % (37-47); HEMOGLOBIN 11.7 g/dL (12.0-16.0); MEAN CELL VOLUME 100.8 fL (80-100); MEAN CORPUSCULAR HEMOGLOBIN 31.8 pg (25-34); MEAN CORPUSCULAR HGB CONC 31.5 g/dl (32-36); MEAN PLATELET VOLUME 12.3 fL (7.4-10.4); PLATELET COUNT 160 K/uL (130-400); RED CELL DISTRIBUTION WIDTH CV 15.2 % (11.5-14.5); RED CELL DISTRIBUTION WIDTH SD 55.3 fL (36.4-46.3); WHITE BLOOD COUNT 5.13 K/uL (4.8-10.8)
[2018-06-10 06:34] LABS: INR 2.1 (0.9-1.1)
[2018-06-10 07:08] LABS: ALBUMIN 3.1 gm/dl (3.4-5.0); CALCIUM 8.8 mg/dl (8.5-10.1); CREATININE 1.68 mg/dl (0.60-1.20); POTASSIUM 3.9 mmol/L (3.5-5.1); TOTAL PROTEIN 6.5 gm/dl (6.4-8.2)
[2018-06-10] MEDS: FUROSEMIDE INJ 80 MG in SYRINGE 0 ML IV SCH ×2 (08:04→16:41)
[2018-06-10] MEDS: METOPROLOL SUCC 25MG EXT REL TAB PO SCH (08:05)
[2018-06-10] MEDS: OXYBUTYNIN CHLORIDE 5 MG TABCR PO SCH (08:05)
[2018-06-10] MEDS: PANTOprazole SOD 40 MG TAB PO SCH (08:05)
[2018-06-10] MEDS: FLUTICASONE/SALMETEROL 250/50 (ADVAIR) 14 PUFF/1 INHALER INH SCH ×2 (08:06→21:19)
[2018-06-10] MEDS: INSULIN ASPART 100 UNITS/ML 3 ML PEN SC SCH ×4 (08:08→21:00)
--- NOTE | 2018-06-10 13:38 | Progress Note ---
Internal Med Progress Note Date of Service: Jun 10, 2018. Provider Documentation: SUBJECTIVE: Seen and examined at bedside Reports constipation Also reports Itchiness of eyes which improved with artificial tears Denies chest pain, SOB, dizziness No other complaints OBJECTIVE: Vital Signs-as noted below Physical Exam: General Appearance:Moderately built and nourished, No distress Head: normocephalic, Atraumatic Eyes: normal inspection, EOMI Neck: supple, Trachea midline Respiratory/Chest:Decreased breath sounds, Scattered Crackles Cardiovascular: Irregularly Irregular, No murmur Abdomen/GI:Soft, Non tender, Bowel sounds present Extremities/Musculoskelatal:normal inspection, 1+ b/l edema Neurologic/Psych:grossly no focal deficits Skin: normal color Lab data as noted below. ASSESSMENT & PLAN: Patient is a 72 yr female with CKD stage 4 d/t HTN and solitary kidney status with baseline creatinine 1.8-2.0 who presented with possible seizure like activity and Acute Respiratory failure, worsening renal function. Patient was admitted after having a tremors s/p fall at [facility]. Acute on chronic hypoxic respiratory failure (multifactorial causes): Chronic Oxygen dependency H/O ASD repair over 20 years ago. Right sided heart failure ; Diastolic CHF, Pulmonary HTN Chronic cor Pulmonale S/P Extubation on 06/01/18 ECHO: showed EF of 55% but severely dilated RV with pulmonary pressure in the range of 50s No evidence of pulmonary fibrosis. COPD (No evidence of COPD exacerbation and as per ICU physician) Continue bronchodilators, Titrate O2 and keep O2 sat above than 85%. continue statin Appreciate Critical Care, Cardiology, Nephrology Input 06/08/18: CXR: Slight increase in cardiac size. Mild increase in pulmonary vasculature. Small left pleural effusion versus left basilar atelectasis. Continue IV diuretics per Nephrology . Plan to Bumex as able H/O Paroxysmal atrial fibrillation: Supra therapeutic INR on admission A flutter with RVR and borderline hemodynamic instability on 06/03/18 requiring cardioversion continue Toprol-XL 12.5 mg per day. Monitor INR:2.1 Continue Coumadin HTN: Monitor blood pressure Hold hydralazine for now Acute kidney injury on CKD IV: Baseline Cr around 2 Appreciate Nephrology Input Monitor renal function Seizure like activity: likely 2/2 Hypoxia/Hypercarbia As per family, she had an episode of seizure in the past EEG 06/02/18: This electroencephalogram reveals evidence for mild generalized highly nonspecific encephalopathy without lateralizing features and without associated potentially epileptogenic activity Gabapentin Levels high Appreciate Neurology Input Gabapentin discontinued Hypothyroidism: Continue Synthroid Abdominal Pain resolved GERD: continue PPI No acute pathologies seen on CT abdomen on 06/03/18 1. Cirrhotic morphology of the liver with trace abdominal pelvic ascites . 2. Cholelithiasis without CT evidence of acute cholecystitis. 3. No bowel obstruction or focal bowel wall thickening. 4. Colonic diverticulosis without diverticulitis. 5. Small right and trace left pleural effusions with bibasilar consolidative opacities suggesting atelectasis or pneumonia H/O DM II: Diet Controlled A1C:6.0 Continue ISS Monitor BGs DVT Px: coumadin Code status: DNR/DNI Disposition: Plan to discharge to Rehab facility when medically stable Vital Signs: Date Time Temp Pulse Resp B/P (MAP) Pulse Ox O2 Delivery O2 Flow Rate FiO2 06/10/18 12:05 36.8 70 18 124/78 (93) 90 Nasal Cannula 3.0 06/10/18 10:00 93 Nasal Cannula 3.0 06/10/18 09:38 37.2 69 20 135/69 (91) 90 Nasal Cannula 3.0 06/10/18 03:35 37.0 63 18 131/65 (87) 93 06/10/18 00:00 92 BiPAP 06/09/18 23:06 36.9 64 20 113/68 (83) 92 BiPAP 06/09/18 22:27 63 90 40 06/09/18 19:15 92 Nasal Cannula 3.0 06/09/18 19:00 37.4 76 20 120/66 (84) 92 Nasal Cannula 3.0 06/09/18 15:10 36.8 75 19 100/62 (75) 92 Nasal Cannula 3.0 Lab Results: Results Past 24 Hours Test 06/09/18 16:27 06/09/18 20:17 06/09/18 21:19 06/10/18 05:57 Range/Units Bedside Glucose 121 135 70-90 mg/dl Sodium Level 142 141 136-145 mmol/L Potassium Level 4.3 3.9 3.5-5.1 mmol/L Chloride Level 97 97 98-107 mmol/L Carbon Dioxide Level 41 39 21-32 mmol/L Anion Gap 4.0 5.0 3-11 mmol/L Blood Urea Nitrogen 58 54 7-18 mg/dl Creatinine 1.87 1.68 0.60-1.20 mg/dl Est Creatinine Clear Calc Drug Dose 18.8 21.0 ml/min Estimated GFR () 30.4 34.6 Estimated GFR (Non- 26.2 29.8 BUN/Creatinine Ratio 31.1 32.3 10-20 Random Glucose 111 89 70-99 mg/dl Calcium Level 8.8 8.8 8.5-10.1 mg/dl Magnesium Level 2.0 1.8-2.4 mg/dl White Blood Count 5.13 4.8-10.8 K/uL Red Blood Count 3.68 4.2-5.4 M/uL Hemoglobin 11.7 12.0-16.0 g/dL Hematocrit 37.1 37-47 % Mean Corpuscular Volume 100.8 80-100 fL Mean Corpuscular Hemoglobin 31.8 25-34 pg Mean Corpuscular Hemoglobin Concent 31.5 32-36 g/dl RDW Standard Deviation 55.3 36.4-46.3 fL RDW Coefficient of Variation 15.2 11.5-14.5 % Platelet Count 160 130-400 K/uL Mean Platelet Volume 12.3 7.4-10.4 fL Prothrombin Time 22.1 9.0-12.0 SECONDS Prothromb Time International Ratio 2.1 0.9-1.1 Total Bilirubin 0.8 0.2-1 mg/dl Aspartate Amino Transf (AST/SGOT) 25 15-37 U/L Alanine Aminotransferase (ALT/SGPT) 27 12-78 U/L Alkaline Phosphatase 57 45-117 U/L Total Protein 6.5 6.4-8.2 gm/dl Albumin 3.1 3.4-5.0 gm/dl Globulin 3.4 2.5-4.0 gm/dl Albumin/Globulin Ratio 0.9 0.9-2 Test 06/10/18 07:04 06/10/18 11:07 Range/Units Bedside Glucose 87 95 70-90 mg/dl
--- NOTE | 2018-06-10 13:41 | Nephrology Progress Note ---
Nephrology Progress Note Date of Service: Jun 10, 2018. Subjective Patient reports feeling well. No shortness of breath. Her lower extremity edema has subsided. She has itchy eyes. Objective Date Time Temp Pulse Resp B/P (MAP) Pulse Ox O2 Delivery O2 Flow Rate FiO2 06/10/18 12:05 36.8 70 18 124/78 (93) 90 Nasal Cannula 3.0 06/10/18 10:00 93 Nasal Cannula 3.0 06/10/18 09:38 37.2 69 20 135/69 (91) 90 Nasal Cannula 3.0 06/10/18 03:35 37.0 63 18 131/65 (87) 93 06/10/18 00:00 92 BiPAP 06/09/18 23:06 36.9 64 20 113/68 (83) 92 BiPAP 06/09/18 22:27 63 90 40 06/09/18 19:15 92 Nasal Cannula 3.0 06/09/18 19:00 37.4 76 20 120/66 (84) 92 Nasal Cannula 3.0 06/09/18 15:10 36.8 75 19 100/62 (75) 92 Nasal Cannula 3.0 Physical Exam: [id number], no acute distress Eyes-pupils equal and reactive to light ENT-throat is normal by inspection Neck-neck is supple no JVD Lungs-bilateral crackles Heart-S1 and S2 regular rate and rhythm. No murmurs Abdomen-abdomen soft nondistended bowel sounds are present Extremities-1+ edema bilaterally, legs are warm Neuro-oriented 3, no focal neurological deficits Current Inpatient Medications Medications (Trade) Dose Ordered Sig/Mehdi Route Start Time Stop Time Status Last Admin Dose Admin Ondansetron HCl (Zofran Inj) 4 mg Q6H PRN IV 05/31/18 00:15 06/30/18 00:14 06/06/18 15:32 4 MG Albuterol (Ventolin Hfa Inhaler) 2 puffs Q6 PRN INH 05/31/18 00:45 06/30/18 00:44 Glucose (Glucose 40% Gel) 15-30 GRAMS 15 GRAMS... UD PRN PO 05/31/18 09:15 06/30/18 09:14 Glucose (Glucose Chew Tab) 4-8 Tablets 4 Tabl... UD PRN PO 05/31/18 09:15 06/30/18 09:14 Dextrose (Dextrose 50% 50ML Syringe) 25-50ML 25ML FOR ... UD PRN IV 05/31/18 09:15 06/30/18 09:14 Glucagon (Glucagon Inj) 1 mg UD PRN SQ 05/31/18 09:15 06/30/18 09:14 Carbohydrates (Carbohydrates For Hypoglycemia) 15-30 GRAMS 15 grams if BSG 54-69... UD PRN PO 05/31/18 09:15 06/30/18 09:14 Pantoprazole Sodium (Protonix Tab) 40 mg QAM PO 06/02/18 09:00 07/02/18 08:59 06/10/18 08:05 40 MG Levothyroxine Sodium (Synthroid Tab) 75 mcg DAILYBB PO 06/02/18 09:00 07/02/18 08:59 06/10/18 05:44 75 MCG Insulin Aspart (novoLOG ASPART) SLIDING SCALE If C... ACHS SC 06/02/18 16:00 07/02/18 15:59 06/10/18 12:09 1 UNITS Acetaminophen (Tylenol Tab) 650 mg Q6H PRN PO 06/02/18 18:45 07/02/18 18:44 06/09/18 15:53 650 MG Miscellaneous (Soap Suds Enema) 1 ea Q2HWA PRN OH 06/03/18 10:30 07/03/18 10:29 06/03/18 11:59 1 EA Metoprolol Succinate (Toprol Xl Tab) 12.5 mg QAM PO 06/05/18 09:00 07/05/18 08:59 06/10/18 08:05 12.5 MG Salmeterol Xinafoate/ Fluticasone (Advair Diskus 250/50 Inh) 1 puff BID INH 06/06/18 21:00 07/06/18 20:59 06/10/18 08:06 1 PUFF Hydralazine HCl (Apresoline Tab) 10 mg BID PO 06/06/18 21:00 07/06/18 20:59 Future Hold 06/08/18 10:48 10 MG Oxybutynin Chloride (Ditropan-Xl Tab) 5 mg DAILY PO 06/07/18 09:00 07/07/18 08:59 06/10/18 08:05 5 MG Pravastatin Sodium (Pravachol Tab) 80 mg DAILY@17 PO 06/06/18 17:00 07/06/18 16:59 06/09/18 17:47 80 MG Warfarin Sodium (Coumadin Tab) 4 mg DAILY@16 PO 06/08/18 16:00 07/08/18 15:59 06/09/18 16:11 4 MG Furosemide 80 mg/ Syringe 8 ml @ 4 mls/min BID17 IV 06/08/18 17:30 07/08/18 17:29 06/10/18 08:04 4 MLS/MIN Docusate Sodium (coLACE CAP) 100 mg BID PO 06/10/18 21:00 07/10/18 20:59 UNV Polyethylene (Miralax Powder Packet) 17 gm DAILY PRN PO 06/10/18 13:15 07/10/18 13:14 UNV Last 24 Hours Test 06/09/18 16:27 06/09/18 20:17 06/09/18 21:19 06/10/18 05:57 Bedside Glucose 121 mg/dl 135 mg/dl Sodium Level 142 mmol/L 141 mmol/L Potassium Level 4.3 mmol/L 3.9 mmol/L Chloride Level 97 mmol/L 97 mmol/L Carbon Dioxide Level 41 mmol/L 39 mmol/L Anion Gap 4.0 mmol/L 5.0 mmol/L Blood Urea Nitrogen 58 mg/dl 54 mg/dl Creatinine 1.87 mg/dl 1.68 mg/dl Est Creatinine Clear Calc Drug Dose 18.8 ml/min 21.0 ml/min Estimated GFR () 30.4 34.6 Estimated GFR (Non- 26.2 29.8 BUN/Creatinine Ratio 31.1 32.3 Random Glucose 111 mg/dl 89 mg/dl Calcium Level 8.8 mg/dl 8.8 mg/dl Magnesium Level 2.0 mg/dl White Blood Count 5.13 K/uL Red Blood Count 3.68 M/uL Hemoglobin 11.7 g/dL Hematocrit 37.1 % Mean Corpuscular Volume 100.8 fL Mean Corpuscular Hemoglobin 31.8 pg Mean Corpuscular Hemoglobin Concent 31.5 g/dl RDW Standard Deviation 55.3 fL RDW Coefficient of Variation 15.2 % Platelet Count 160 K/uL Mean Platelet Volume 12.3 fL Prothrombin Time 22.1 SECONDS Prothromb Time International Ratio 2.1 Total Bilirubin 0.8 mg/dl Aspartate Amino Transf (AST/SGOT) 25 U/L Alanine Aminotransferase (ALT/SGPT) 27 U/L Alkaline Phosphatase 57 U/L Total Protein 6.5 gm/dl Albumin 3.1 gm/dl Globulin 3.4 gm/dl Albumin/Globulin Ratio 0.9 Test 06/10/18 07:04 06/10/18 11:07 Bedside Glucose 87 mg/dl 95 mg/dl Assessment & Plan This is a 72-year-old female with 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 1. Acute kidney injury on CKD: Secondary to cardiorenal syndrome. Cr today is 1.68 from 1.58 yesterday. Monitor renal function with daily BMP. Renal dose medications for current GFR. 2. Metabolic alkalosis: Likely due to contraction alkalosis in setting of diuresis. Recommend reducing dose of Lasix to 60 mg IV twice daily. If nearing discharge would transition to torsemide 100mg po daily 3. Hypertension: Her BP is well controlled on current regimen. Renal will follow with you.
[2018-06-10] MEDS: POLYETHYLENE (MIRALAX) 17 GM PACK PO PRN (14:42)
[2018-06-10] MEDS: ACETAMINOPHEN 325 MG TAB PO PRN (16:40)
[2018-06-10] MEDS: WARFARIN SOD 4 MG TAB PO SCH (16:40)
[2018-06-10] MEDS: PRAVASTATIN SOD 40 MG TAB PO SCH (16:41)
[2018-06-10] MEDS: DOCUSATE SODIUM 100 MG CAP PO SCH (21:19)
[2018-06-11] VITALS (8 sets, daily range): BP systolic 112–128; BP diastolic 58–80; PULSE 62–91; TEMP 36.2–37.4; O2SAT 91–94
[2018-06-11] MEDS: LEVOTHYROXINE 75 MCG TAB PO SCH (05:44)
[2018-06-11 06:34] LABS: INR 2.3 (0.9-1.1)
[2018-06-11] MEDS: INSULIN ASPART 100 UNITS/ML 3 ML PEN SC SCH ×4 (07:00→20:32)
[2018-06-11 07:06] LABS: CALCIUM 9.2 mg/dl (8.5-10.1); CREATININE 1.71 mg/dl (0.60-1.20); POTASSIUM 3.9 mmol/L (3.5-5.1)
[2018-06-11] MEDS: METOPROLOL SUCC 25MG EXT REL TAB PO SCH (08:32)
[2018-06-11] MEDS: PANTOprazole SOD 40 MG TAB PO SCH (08:32)
[2018-06-11] MEDS: FUROSEMIDE INJ 80 MG in SYRINGE 0 ML IV SCH (08:32)
[2018-06-11] MEDS: OXYBUTYNIN CHLORIDE 5 MG TABCR PO SCH (08:33)
[2018-06-11] MEDS: DOCUSATE SODIUM 100 MG CAP PO SCH (08:33)
[2018-06-11] MEDS: FLUTICASONE/SALMETEROL 250/50 (ADVAIR) 14 PUFF/1 INHALER INH SCH ×2 (08:33→20:46)
--- NOTE | 2018-06-11 09:53 | Nephrology Progress Note ---
Nephrology Progress Note Date of Service: Jun 11, 2018. Subjective Patient reports feeling well. No shortness of breath. Her lower extremity edema has subsided. She was eating breakfast at time of my visit Objective Date Time Temp Pulse Resp B/P (MAP) Pulse Ox O2 Delivery O2 Flow Rate FiO2 06/11/18 06:57 36.2 62 20 125/80 (95) 93 Nasal Cannula 2.0 06/11/18 04:12 37.4 70 18 128/68 (88) 92 Nasal Cannula 3.0 06/11/18 00:00 94 Nasal Cannula 3.0 06/10/18 23:14 66 91 40 06/10/18 22:53 37.0 69 18 126/71 (89) 94 Room Air 3.0 Humidified Oxygen 06/10/18 20:00 94 Nasal Cannula 3.0 06/10/18 19:10 36.9 79 16 119/67 (84) 94 Nasal Cannula 3.0 Humidified Oxygen 06/10/18 15:42 37.5 65 18 113/52 (72) 92 Nasal Cannula 3.0 Humidified Oxygen 06/10/18 12:05 36.8 70 18 124/78 (93) 90 Nasal Cannula 3.0 06/10/18 10:00 93 Nasal Cannula 3.0 Physical Exam: [id number], no acute distress Eyes-pupils equal and reactive to light ENT-throat is normal by inspection Neck-neck is supple no JVD Lungs-bilateral crackles and reduced breath sounds Heart-S1 and S2 regular rate and rhythm. No murmurs Abdomen-abdomen soft nondistended bowel sounds are present Extremities-1+ edema bilaterally, legs are warm Neuro-oriented 3, no focal neurological deficits Current Inpatient Medications Medications (Trade) Dose Ordered Sig/Mehdi Route Start Time Stop Time Status Last Admin Dose Admin Ondansetron HCl (Zofran Inj) 4 mg Q6H PRN IV 05/31/18 00:15 06/30/18 00:14 06/06/18 15:32 4 MG Albuterol (Ventolin Hfa Inhaler) 2 puffs Q6 PRN INH 05/31/18 00:45 06/30/18 00:44 Glucose (Glucose 40% Gel) 15-30 GRAMS 15 GRAMS... UD PRN PO 05/31/18 09:15 06/30/18 09:14 Glucose (Glucose Chew Tab) 4-8 Tablets 4 Tabl... UD PRN PO 05/31/18 09:15 06/30/18 09:14 Dextrose (Dextrose 50% 50ML Syringe) 25-50ML 25ML FOR ... UD PRN IV 05/31/18 09:15 06/30/18 09:14 Glucagon (Glucagon Inj) 1 mg UD PRN SQ 05/31/18 09:15 06/30/18 09:14 Carbohydrates (Carbohydrates For Hypoglycemia) 15-30 GRAMS 15 grams if BSG 54-69... UD PRN PO 05/31/18 09:15 06/30/18 09:14 Pantoprazole Sodium (Protonix Tab) 40 mg QAM PO 06/02/18 09:00 07/02/18 08:59 06/11/18 08:32 40 MG Levothyroxine Sodium (Synthroid Tab) 75 mcg DAILYBB PO 06/02/18 09:00 07/02/18 08:59 06/11/18 05:44 75 MCG Insulin Aspart (novoLOG ASPART) SLIDING SCALE If C... ACHS SC 06/02/18 16:00 07/02/18 15:59 06/10/18 12:09 1 UNITS Acetaminophen (Tylenol Tab) 650 mg Q6H PRN PO 06/02/18 18:45 07/02/18 18:44 06/10/18 16:40 650 MG Miscellaneous (Soap Suds Enema) 1 ea Q2HWA PRN SD 06/03/18 10:30 07/03/18 10:29 06/03/18 11:59 1 EA Metoprolol Succinate (Toprol Xl Tab) 12.5 mg QAM PO 06/05/18 09:00 07/05/18 08:59 06/11/18 08:32 12.5 MG Salmeterol Xinafoate/ Fluticasone (Advair Diskus 250/50 Inh) 1 puff BID INH 06/06/18 21:00 07/06/18 20:59 06/11/18 08:33 1 PUFF Hydralazine HCl (Apresoline Tab) 10 mg BID PO 06/06/18 21:00 07/06/18 20:59 Future Hold 06/08/18 10:48 10 MG Oxybutynin Chloride (Ditropan-Xl Tab) 5 mg DAILY PO 06/07/18 09:00 07/07/18 08:59 06/11/18 08:33 5 MG Pravastatin Sodium (Pravachol Tab) 80 mg DAILY@17 PO 06/06/18 17:00 07/06/18 16:59 06/10/18 16:41 80 MG Warfarin Sodium (Coumadin Tab) 4 mg DAILY@16 PO 06/08/18 16:00 07/08/18 15:59 06/10/18 16:40 4 MG Furosemide 80 mg/ Syringe 8 ml @ 4 mls/min BID17 IV 06/08/18 17:30 07/08/18 17:29 06/11/18 08:32 4 MLS/MIN Docusate Sodium (coLACE CAP) 100 mg BID PO 06/10/18 21:00 07/10/18 20:59 06/11/18 08:33 100 MG Polyethylene (Miralax Powder Packet) 17 gm DAILY PRN PO 06/10/18 13:15 07/10/18 13:14 06/10/18 14:42 17 GM Last 24 Hours Test 06/10/18 11:07 06/10/18 16:42 06/10/18 20:04 06/11/18 05:53 Bedside Glucose 95 mg/dl 110 mg/dl 125 mg/dl Prothrombin Time 23.3 SECONDS Prothromb Time International Ratio 2.3 Sodium Level 141 mmol/L Potassium Level 3.9 mmol/L Chloride Level 95 mmol/L Carbon Dioxide Level 41 mmol/L Anion Gap 4.0 mmol/L Blood Urea Nitrogen 50 mg/dl Creatinine 1.71 mg/dl Est Creatinine Clear Calc Drug Dose 20.5 ml/min Estimated GFR () 33.8 Estimated GFR (Non- 29.2 BUN/Creatinine Ratio 28.9 Random Glucose 87 mg/dl Calcium Level 9.2 mg/dl Test 06/11/18 07:05 Bedside Glucose 83 mg/dl Assessment & Plan This is a 72-year-old female with 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 1. Acute kidney injury on CKD: Secondary to cardiorenal syndrome. Cr today is 1.7 stable. Monitor renal function with daily BMP. Renal dose medications for current GFR. 2. Metabolic alkalosis: Likely due to contraction alkalosis in setting of diuresis. Recommend reducing dose of Lasix to 40 mg IV twice daily. 3. Hypertension: Her BP is well controlled on current regimen. Renal will follow with you. Guillermina Batista MD
--- NOTE | 2018-06-11 10:40 | Progress Note ---
Internal Med Progress Note Date of Service: Jun 11, 2018. Provider Documentation: SUBJECTIVE: Seen and examined at bedside Feels better today Still has constipation Itchiness of eyes Improving Denies chest pain, SOB, dizziness, nausea No other complaints OBJECTIVE: Vital Signs-as noted below Physical Exam: General Appearance:Moderately built and nourished, No distress Head: normocephalic, Atraumatic Eyes: normal inspection, EOMI Neck: supple, Trachea midline Respiratory/Chest:Decreased breath sounds, Scattered Crackles Cardiovascular: Irregularly Irregular, No murmur Abdomen/GI:Soft, Non tender, Bowel sounds present Extremities/Musculoskelatal:normal inspection, 1+ b/l edema Neurologic/Psych:grossly no focal deficits Skin: normal color Lab data as noted below. ASSESSMENT & PLAN: Patient is a 72 yr female with CKD stage 4 d/t HTN and solitary kidney status with baseline creatinine 1.8-2.0 who presented with possible seizure like activity and Acute Respiratory failure, worsening renal function. Patient was admitted after having a tremors s/p fall at [facility]. Acute on chronic hypoxic respiratory failure (multifactorial causes): Chronic Oxygen dependency H/O ASD repair over 20 years ago. Right sided heart failure ; Diastolic CHF, Pulmonary HTN Chronic cor Pulmonale S/P Extubation on 06/01/18 ECHO: showed EF of 55% but severely dilated RV with pulmonary pressure in the range of 50s No evidence of pulmonary fibrosis. COPD (No evidence of COPD exacerbation and as per ICU physician) Continue bronchodilators, Titrate O2 and keep O2 sat above than 85%. continue statin Appreciate Critical Care, Cardiology, Nephrology Input 06/08/18: CXR: Slight increase in cardiac size. Mild increase in pulmonary vasculature. Small left pleural effusion versus left basilar atelectasis. Continue IV diuretics 40mg BID per Nephrology H/O Paroxysmal atrial fibrillation: Supra therapeutic INR on admission A flutter with RVR and borderline hemodynamic instability on 06/03/18 requiring cardioversion continue Toprol-XL 12.5 mg per day. Monitor INR:2.1>>2.3 Continue Coumadin HTN: Monitor blood pressure Hold hydralazine for now Acute kidney injury on CKD IV: cardiorenal syndrome Contraction alkalosis Baseline Cr around 2 Appreciate Nephrology Input Monitor renal function Cr:1.71 Seizure like activity: likely 2/2 Hypoxia/Hypercarbia As per family, she had an episode of seizure in the past EEG 06/02/18: This electroencephalogram reveals evidence for mild generalized highly nonspecific encephalopathy without lateralizing features and without associated potentially epileptogenic activity Gabapentin Levels high Appreciate Neurology Input Gabapentin discontinued Hypothyroidism: Continue Synthroid Abdominal Pain resolved GERD: continue PPI No acute pathologies seen on CT abdomen on 06/03/18 1. Cirrhotic morphology of the liver with trace abdominal pelvic ascites . 2. Cholelithiasis without CT evidence of acute cholecystitis. 3. No bowel obstruction or focal bowel wall thickening. 4. Colonic diverticulosis without diverticulitis. 5. Small right and trace left pleural effusions with bibasilar consolidative opacities suggesting atelectasis or pneumonia H/O DM II: Diet Controlled A1C:6.0 Continue ISS Monitor BGs Constipation: Continue bowel regimen DVT Px: coumadin Code status: DNR/DNI Disposition: Plan to discharge to Rehab facility when medically stable Vital Signs: Date Time Temp Pulse Resp B/P (MAP) Pulse Ox O2 Delivery O2 Flow Rate FiO2 06/11/18 06:57 36.2 62 20 125/80 (95) 93 Nasal Cannula 2.0 06/11/18 04:12 37.4 70 18 128/68 (88) 92 Nasal Cannula 3.0 06/11/18 00:00 94 Nasal Cannula 3.0 06/10/18 23:14 66 91 40 06/10/18 22:53 37.0 69 18 126/71 (89) 94 Room Air 3.0 Humidified Oxygen 06/10/18 20:00 94 Nasal Cannula 3.0 06/10/18 19:10 36.9 79 16 119/67 (84) 94 Nasal Cannula 3.0 Humidified Oxygen 06/10/18 15:42 37.5 65 18 113/52 (72) 92 Nasal Cannula 3.0 Humidified Oxygen 06/10/18 12:05 36.8 70 18 124/78 (93) 90 Nasal Cannula 3.0 Lab Results: Results Past 24 Hours Test 06/10/18 11:07 06/10/18 16:42 06/10/18 20:04 06/11/18 05:53 Range/Units Bedside Glucose 95 110 125 70-90 mg/dl Prothrombin Time 23.3 9.0-12.0 SECONDS Prothromb Time International Ratio 2.3 0.9-1.1 Sodium Level 141 136-145 mmol/L Potassium Level 3.9 3.5-5.1 mmol/L Chloride Level 95 98-107 mmol/L Carbon Dioxide Level 41 21-32 mmol/L Anion Gap 4.0 3-11 mmol/L Blood Urea Nitrogen 50 7-18 mg/dl Creatinine 1.71 0.60-1.20 mg/dl Est Creatinine Clear Calc Drug Dose 20.5 ml/min Estimated GFR () 33.8 Estimated GFR (Non- 29.2 BUN/Creatinine Ratio 28.9 10-20 Random Glucose 87 70-99 mg/dl Calcium Level 9.2 8.5-10.1 mg/dl Test 06/11/18 07:05 Range/Units Bedside Glucose 83 70-90 mg/dl
[2018-06-11] MEDS: PRAVASTATIN SOD 40 MG TAB PO SCH (16:35)
[2018-06-11] MEDS: FUROSEMIDE INJ 40 MG in SYRINGE 0 ML IV SCH (16:35)
[2018-06-11] MEDS: WARFARIN SOD 4 MG TAB PO SCH (16:35)
[2018-06-11] MEDS: DOCUSATE SODIUM/SENNA 50/8.6MG TAB PO SCH (20:46)
[2018-06-12] VITALS (7 sets, daily range): BP systolic 99–129; BP diastolic 60–84; PULSE 60–75; TEMP 36.7–37.3; O2SAT 91–94
[2018-06-12] MEDS: LEVOTHYROXINE 75 MCG TAB PO SCH (06:00)
[2018-06-12 07:02] LABS: INR 2.4 (0.9-1.1)
[2018-06-12 07:09] LABS: CALCIUM 9.2 mg/dl (8.5-10.1); CREATININE 1.91 mg/dl (0.60-1.20); POTASSIUM 3.9 mmol/L (3.5-5.1)
[2018-06-12] MEDS: PANTOprazole SOD 40 MG TAB PO SCH (08:10)
[2018-06-12] MEDS: OXYBUTYNIN CHLORIDE 5 MG TABCR PO SCH (08:10)
[2018-06-12] MEDS: METOPROLOL SUCC 25MG EXT REL TAB PO SCH (08:10)
[2018-06-12] MEDS: FUROSEMIDE INJ 40 MG in SYRINGE 0 ML IV SCH ×2 (08:11→17:16)
[2018-06-12] MEDS: FLUTICASONE/SALMETEROL 250/50 (ADVAIR) 14 PUFF/1 INHALER INH SCH ×2 (08:11→20:17)
[2018-06-12] MEDS: INSULIN ASPART 100 UNITS/ML 3 ML PEN SC SCH ×4 (08:15→20:16)
--- NOTE | 2018-06-12 14:14 | Progress Note ---
Internal Med Progress Note Date of Service: Jun 12, 2018. Provider Documentation: SUBJECTIVE: Seen and examined at bedside Doing well today Reports mild right hip pain Itchiness of eyes Improved Denies chest pain, SOB, dizziness, nausea No other complaints OBJECTIVE: Vital Signs-as noted below Physical Exam: General Appearance:Moderately built and nourished, No distress Head: normocephalic, Atraumatic Eyes: normal inspection, EOMI Neck: supple, Trachea midline Respiratory/Chest:Decreased breath sounds, Scattered Crackles Cardiovascular: Irregularly Irregular, No murmur Abdomen/GI:Soft, Non tender, Bowel sounds present Extremities/Musculoskelatal:normal inspection, 1+ b/l edema Neurologic/Psych:grossly no focal deficits Skin: normal color Lab data as noted below. ASSESSMENT & PLAN: Patient is a 72 yr female with CKD stage 4 d/t HTN and solitary kidney status with baseline creatinine 1.8-2.0 who presented with possible seizure like activity and Acute Respiratory failure, worsening renal function. Patient was admitted after having a tremors s/p fall at [facility]. Acute on chronic hypoxic respiratory failure (multifactorial causes): Chronic Oxygen dependency H/O ASD repair over 20 years ago. Right sided heart failure ; Diastolic CHF, Pulmonary HTN Chronic cor Pulmonale S/P Extubation on 06/01/18 ECHO: showed EF of 55% but severely dilated RV with pulmonary pressure in the range of 50s No evidence of pulmonary fibrosis. COPD (No evidence of COPD exacerbation and as per ICU physician) Continue bronchodilators, Titrate O2 and keep O2 sat above than 85%. continue statin Appreciate Critical Care, Cardiology, Nephrology Input 06/08/18: CXR: Slight increase in cardiac size. Mild increase in pulmonary vasculature. Small left pleural effusion versus left basilar atelectasis. Continue IV diuretics 40mg BID per Nephrology continue current management H/O Paroxysmal atrial fibrillation: Supra therapeutic INR on admission A flutter with RVR and borderline hemodynamic instability on 06/03/18 requiring cardioversion continue Toprol-XL 12.5 mg per day. Monitor INR:2.1>>2.3>>2.4 Continue Coumadin HTN: Monitor blood pressure Hold hydralazine for now Acute kidney injury on CKD IV: cardiorenal syndrome Contraction alkalosis Baseline Cr around 2 Appreciate Nephrology Input Monitor renal function Cr:1.71>>1.9 Seizure like activity: likely 2/2 Hypoxia/Hypercarbia As per family, she had an episode of seizure in the past EEG 06/02/18: This electroencephalogram reveals evidence for mild generalized highly nonspecific encephalopathy without lateralizing features and without associated potentially epileptogenic activity Gabapentin Levels high Appreciate Neurology Input Gabapentin discontinued Hypothyroidism: Continue Synthroid Abdominal Pain resolved GERD: continue PPI No acute pathologies seen on CT abdomen on 06/03/18 1. Cirrhotic morphology of the liver with trace abdominal pelvic ascites . 2. Cholelithiasis without CT evidence of acute cholecystitis. 3. No bowel obstruction or focal bowel wall thickening. 4. Colonic diverticulosis without diverticulitis. 5. Small right and trace left pleural effusions with bibasilar consolidative opacities suggesting atelectasis or pneumonia H/O DM II: Diet Controlled A1C:6.0 Continue ISS Monitor BGs Constipation: Continue bowel regimen DVT Px: coumadin Code status: DNR/DNI Disposition: Plan to discharge to Rehab facility when medically stable Vital Signs: Date Time Temp Pulse Resp B/P (MAP) Pulse Ox O2 Delivery O2 Flow Rate FiO2 06/12/18 11:32 36.8 75 18 129/78 (95) 93 Nasal Cannula 3.0 75 06/12/18 08:00 Nasal Cannula 3.0 06/12/18 07:02 36.8 68 19 122/75 (91) 91 Nasal Cannula 3.0 Humidified Oxygen 06/12/18 04:00 Nasal Cannula 3.0 06/12/18 03:53 37.3 68 20 119/84 (96) 93 Nasal Cannula 3.0 06/11/18 23:35 36.9 70 21 125/64 (84) 91 BiPAP 35 06/11/18 21:41 91 94 35 06/11/18 20:00 Nasal Cannula 3.0 06/11/18 19:14 37.4 77 19 112/67 (82) 92 Nasal Cannula 2.5 06/11/18 15:22 36.6 65 18 124/58 (80) 91 Lab Results: Results Past 24 Hours Test 06/11/18 16:08 06/11/18 19:48 06/12/18 06:04 06/12/18 07:16 Range/Units Bedside Glucose 102 168 84 70-90 mg/dl Prothrombin Time 24.8 9.0-12.0 SECONDS Prothromb Time International Ratio 2.4 0.9-1.1 Sodium Level 142 136-145 mmol/L Potassium Level 3.9 3.5-5.1 mmol/L Chloride Level 98 98-107 mmol/L Carbon Dioxide Level 40 21-32 mmol/L Anion Gap 4.0 3-11 mmol/L Blood Urea Nitrogen 56 7-18 mg/dl Creatinine 1.91 0.60-1.20 mg/dl Est Creatinine Clear Calc Drug Dose 18.7 ml/min Estimated GFR () 29.6 Estimated GFR (Non- 25.5 BUN/Creatinine Ratio 29.4 10-20 Random Glucose 80 70-99 mg/dl Calcium Level 9.2 8.5-10.1 mg/dl Test 06/12/18 11:27 Range/Units Bedside Glucose 88 70-90 mg/dl
[2018-06-12] MEDS: WARFARIN SOD 4 MG TAB PO SCH (16:03)
[2018-06-12] MEDS: PRAVASTATIN SOD 40 MG TAB PO SCH (17:16)
--- NOTE | 2018-06-12 18:31 | Nephrology Progress Note ---
Nephrology Progress Note Date of Service: Jun 12, 2018. Subjective Patient reports feeling well. No shortness of breath. Her lower extremity edema has subsided.Creatinine is up to 1.9 today Objective Date Time Temp Pulse Resp B/P (MAP) Pulse Ox O2 Delivery O2 Flow Rate FiO2 06/12/18 16:00 Nasal Cannula 3.0 06/12/18 15:22 36.7 71 20 108/66 (80) 94 Nasal Cannula 1.5 06/12/18 14:54 36.8 75 18 93 3.0 06/12/18 11:32 36.8 75 18 129/78 (95) 93 Nasal Cannula 3.0 75 06/12/18 08:00 Nasal Cannula 3.0 06/12/18 07:02 36.8 68 19 122/75 (91) 91 Nasal Cannula 3.0 Humidified Oxygen 06/12/18 04:00 Nasal Cannula 3.0 06/12/18 03:53 37.3 68 20 119/84 (96) 93 Nasal Cannula 3.0 06/11/18 23:35 36.9 70 21 125/64 (84) 91 BiPAP 35 06/11/18 21:41 91 94 35 06/11/18 20:00 Nasal Cannula 3.0 06/11/18 19:14 37.4 77 19 112/67 (82) 92 Nasal Cannula 2.5 Physical Exam: [id number], no acute distress Eyes-pupils equal and reactive to light ENT-throat is normal by inspection Neck-neck is supple no JVD Lungs-bilateral crackles and reduced breath sounds Heart-S1 and S2 regular rate and rhythm. No murmurs Abdomen-abdomen soft nondistended bowel sounds are present Extremities-1+ edema bilaterally, legs are warm Neuro-oriented 3, no focal neurological deficits Current Inpatient Medications Medications (Trade) Dose Ordered Sig/Mehdi Route Start Time Stop Time Status Last Admin Dose Admin Ondansetron HCl (Zofran Inj) 4 mg Q6H PRN IV 05/31/18 00:15 06/30/18 00:14 18 15:32 4 MG Albuterol (Ventolin Hfa Inhaler) 2 puffs Q6 PRN INH 05/31/18 00:45 06/30/18 00:44 Glucose (Glucose 40% Gel) 15-30 GRAMS 15 GRAMS... UD PRN PO 05/31/18 09:15 06/30/18 09:14 Glucose (Glucose Chew Tab) 4-8 Tablets 4 Tabl... UD PRN PO 05/31/18 09:15 06/30/18 09:14 Dextrose (Dextrose 50% 50ML Syringe) 25-50ML 25ML FOR ... UD PRN IV 05/31/18 09:15 06/30/18 09:14 Glucagon (Glucagon Inj) 1 mg UD PRN SQ 05/31/18 09:15 06/30/18 09:14 Carbohydrates (Carbohydrates For Hypoglycemia) 15-30 GRAMS 15 grams if BSG 54-69... UD PRN PO 05/31/18 09:15 06/30/18 09:14 Pantoprazole Sodium (Protonix Tab) 40 mg QAM PO 06/02/18 09:00 07/02/18 08:59 06/12/18 08:10 40 MG Levothyroxine Sodium (Synthroid Tab) 75 mcg DAILYBB PO 06/02/18 09:00 07/02/18 08:59 06/11/18 05:44 75 MCG Insulin Aspart (novoLOG ASPART) SLIDING SCALE If C... ACHS SC 06/02/18 16:00 07/02/18 15:59 06/12/18 17:17 1 UNITS Acetaminophen (Tylenol Tab) 650 mg Q6H PRN PO 06/02/18 18:45 07/02/18 18:44 06/10/18 16:40 650 MG Miscellaneous (Soap Suds Enema) [address] 06/03/18 10:30 07/03/18 10:29 06/03/18 11:59 1 EA Metoprolol Succinate (Toprol Xl Tab) 12.5 mg QAM PO 06/05/18 09:00 07/05/18 08:59 06/12/18 08:10 12.5 MG Salmeterol Xinafoate/ Fluticasone (Advair Diskus 250/50 Inh) 1 puff BID INH 06/06/18 21:00 07/06/18 20:59 06/12/18 08:11 1 PUFF Oxybutynin Chloride (Ditropan-Xl Tab) 5 mg DAILY PO 06/07/18 09:00 07/07/18 08:59 06/12/18 08:10 5 MG Pravastatin Sodium (Pravachol Tab) 80 mg DAILY@17 PO 06/06/18 17:00 07/06/18 16:59 06/12/18 17:16 80 MG Warfarin Sodium (Coumadin Tab) 4 mg DAILY@16 PO 06/08/18 16:00 07/08/18 15:59 06/12/18 16:03 4 MG Polyethylene (Miralax Powder Packet) 17 gm DAILY PRN PO 06/10/18 13:15 07/10/18 13:14 06/10/18 14:42 17 GM Furosemide 40 mg/ Syringe 4 ml @ 4 mls/min BID17 IV 06/11/18 17:00 07/08/18 17:29 06/12/18 17:16 4 MLS/MIN Senna/Docusate Sodium (Senokot S Tab) 2 tab HS PO 06/11/18 21:00 07/11/18 20:59 06/11/18 20:46 2 TAB Last 24 Hours Test 06/11/18 19:48 06/12/18 06:04 06/12/18 07:16 06/12/18 11:27 Bedside Glucose 168 mg/dl 84 mg/dl 88 mg/dl Prothrombin Time 24.8 SECONDS Prothromb Time International Ratio 2.4 Sodium Level 142 mmol/L Potassium Level 3.9 mmol/L Chloride Level 98 mmol/L Carbon Dioxide Level 40 mmol/L Anion Gap 4.0 mmol/L Blood Urea Nitrogen 56 mg/dl Creatinine 1.91 mg/dl Est Creatinine Clear Calc Drug Dose 18.7 ml/min Estimated GFR () 29.6 Estimated GFR (Non- 25.5 BUN/Creatinine Ratio 29.4 Random Glucose 80 mg/dl Calcium Level 9.2 mg/dl Test 06/12/18 16:36 Bedside Glucose 108 mg/dl Assessment & Plan This is a 72-year-old female with 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 1. Acute kidney injury on CKD: Secondary to cardiorenal syndrome. Cr today is up to 1.9 slightly worse. Monitor renal function with daily BMP. Renal dose medications for current GFR. 2. Metabolic alkalosis: Likely due to contraction alkalosis in setting of diuresis. Continue Lasix to 40 mg IV twice daily. 3. Hypertension: Her BP is well controlled on current regimen. Renal will follow with you. Guillermina Batista MD
[2018-06-12] MEDS: DOCUSATE SODIUM/SENNA 50/8.6MG TAB PO SCH (20:17)
[2018-06-13] MEDS: LEVOTHYROXINE 75 MCG TAB PO SCH (05:53)
[2018-06-13 06:20] LABS: INR 2.6 (0.9-1.1)
[2018-06-13 06:45] LABS: CREATININE 2.12 mg/dl (0.60-1.20); POTASSIUM 3.9 mmol/L (3.5-5.1)
[2018-06-13 07:25] VITALS: BP 102/64; PULSE 75; TEMP 36.8; O2SAT 92
[2018-06-13] MEDS: METOPROLOL SUCC 25MG EXT REL TAB PO SCH (08:30)
[2018-06-13] MEDS: OXYBUTYNIN CHLORIDE 5 MG TABCR PO SCH (08:30)
[2018-06-13] MEDS: FLUTICASONE/SALMETEROL 250/50 (ADVAIR) 14 PUFF/1 INHALER INH SCH ×2 (08:30→21:24)
[2018-06-13] MEDS: FUROSEMIDE INJ 40 MG in SYRINGE 0 ML IV SCH ×2 (08:31→17:17)
[2018-06-13] MEDS: PANTOprazole SOD 40 MG TAB PO SCH (08:31)
[2018-06-13] MEDS: INSULIN ASPART 100 UNITS/ML 3 ML PEN SC SCH ×4 (08:33→20:20)
[2018-06-13] MEDS: POLYETHYLENE (MIRALAX) 17 GM PACK PO PRN (08:39)
[2018-06-13] MEDS ORDERED: LACTULOSE SYRUP 10 GM/15 ML BTL 473 ML PO PRN (09:45)
[2018-06-13] MEDS: ONDANSETRON INJ 2 MG/ML 2 ML VIAL IV PRN (10:12)
--- NOTE | 2018-06-13 12:14 | Progress Note ---
Internal Med Progress Note Date of Service: Jun 13, 2018. Provider Documentation: SUBJECTIVE: Seen and examined at bedside Reports right hip pain with ambulation Also reports constipation Itchiness of eyes Improved Denies chest pain, SOB, dizziness, nausea No other complaints OBJECTIVE: Vital Signs-as noted below Physical Exam: General Appearance:Moderately built and nourished, No distress Head: normocephalic, Atraumatic Eyes: normal inspection, EOMI Neck: supple, Trachea midline Respiratory/Chest:Decreased breath sounds, basal Crackles Cardiovascular: Irregularly Irregular, No murmur Abdomen/GI:Soft, Non tender, Bowel sounds present Extremities/Musculoskelatal:normal inspection, 1+ b/l edema Neurologic/Psych:grossly no focal deficits Skin: normal color Lab data as noted below. ASSESSMENT & PLAN: Patient is a 72 yr female with CKD stage 4 d/t HTN and solitary kidney status with baseline creatinine 1.8-2.0 who presented with possible seizure like activity and Acute Respiratory failure, worsening renal function. Patient was admitted after having a tremors s/p fall at [facility]. Acute on chronic hypoxic respiratory failure (multifactorial causes): Chronic Oxygen dependency H/O ASD repair over 20 years ago. Right sided heart failure ; Diastolic CHF, Pulmonary HTN Chronic cor Pulmonale S/P Extubation on 06/01/18 ECHO: showed EF of 55% but severely dilated RV with pulmonary pressure in the range of 50s No evidence of pulmonary fibrosis. COPD (No evidence of COPD exacerbation and as per ICU physician) Continue bronchodilators, Titrate O2 and keep O2 sat above than 85%. continue statin Appreciate Critical Care, Cardiology, Nephrology Input 06/08/18: CXR: Slight increase in cardiac size. Mild increase in pulmonary vasculature. Small left pleural effusion versus left basilar atelectasis. Continue IV diuretics 40mg BID per Nephrology Discussed with Nephrology, continue current management Hip Pain: Check X ray H/O Paroxysmal atrial fibrillation: Supra therapeutic INR on admission A flutter with RVR and borderline hemodynamic instability on 06/03/18 requiring cardioversion continue Toprol-XL 12.5 mg per day. Monitor INR:2.1>>2.3>>2.4>>2.6 Continue Coumadin HTN: Monitor blood pressure Hold hydralazine for now Acute kidney injury on CKD IV: cardiorenal syndrome Contraction alkalosis Baseline Cr around 2 Appreciate Nephrology Input Monitor renal function Cr:1.71>>1.9>>2.12 Cr slightly increased Alkalosis improving Seizure like activity: likely 2/2 Hypoxia/Hypercarbia As per family, she had an episode of seizure in the past EEG 06/02/18: This electroencephalogram reveals evidence for mild generalized highly nonspecific encephalopathy without lateralizing features and without associated potentially epileptogenic activity Gabapentin Levels high Appreciate Neurology Input Gabapentin discontinued Hypothyroidism: Continue Synthroid Abdominal Pain resolved GERD: continue PPI No acute pathologies seen on CT abdomen on 06/03/18 1. Cirrhotic morphology of the liver with trace abdominal pelvic ascites . 2. Cholelithiasis without CT evidence of acute cholecystitis. 3. No bowel obstruction or focal bowel wall thickening. 4. Colonic diverticulosis without diverticulitis. 5. Small right and trace left pleural effusions with bibasilar consolidative opacities suggesting atelectasis or pneumonia H/O DM II: Diet Controlled A1C:6.0 Continue ISS Monitor BGs Constipation: Continue bowel regimen added lactulose encourage ambulation DVT Px: coumadin Code status: DNR/DNI Disposition: Plan to discharge to Rehab facility when medically stable Vital Signs: Date Time Temp Pulse Resp B/P (MAP) Pulse Ox O2 Delivery O2 Flow Rate FiO2 06/13/18 11:19 Nasal Cannula 3.0 BiPAP 06/13/18 07:25 36.8 75 20 102/64 (77) 92 06/13/18 00:00 Nasal Cannula 3.0 BiPAP 06/12/18 23:18 36.7 60 20 99/60 (73) 91 BiPAP 06/12/18 23:02 74 94 35 06/12/18 19:43 Nasal Cannula 3.0 06/12/18 16:00 Nasal Cannula 3.0 06/12/18 15:22 36.7 71 20 108/66 (80) 94 Nasal Cannula 1.5 06/12/18 14:54 36.8 75 18 93 3.0 Lab Results: Results Past 24 Hours Test 06/12/18 16:36 06/12/18 20:02 06/13/18 05:39 06/13/18 07:31 Range/Units Bedside Glucose 108 165 87 70-90 mg/dl Prothrombin Time 26.4 9.0-12.0 SECONDS Prothromb Time International Ratio 2.6 0.9-1.1 Sodium Level 140 136-145 mmol/L Potassium Level 3.9 3.5-5.1 mmol/L Chloride Level 96 98-107 mmol/L Carbon Dioxide Level 36 21-32 mmol/L Anion Gap 8.0 3-11 mmol/L Blood Urea Nitrogen 61 7-18 mg/dl Creatinine 2.12 0.60-1.20 mg/dl Est Creatinine Clear Calc Drug Dose 16.8 ml/min Estimated GFR () 26.1 Estimated GFR (Non- 22.5 BUN/Creatinine Ratio 28.8 10-20 Random Glucose 82 70-99 mg/dl Calcium Level 9.0 8.5-10.1 mg/dl Test 06/13/18 11:27 Range/Units Bedside Glucose 93 70-90 mg/dl
--- NOTE | 2018-06-13 13:57 | DIAGNOSTIC IMAGING REPORT ---
R HIP UNILATERAL 2 VIEWS HISTORY: 72 years-old Female Hip Pain acute right-sided hip pain without known trauma COMPARISON: CT abdomen and pelvis 06/03/2018 TECHNIQUE: 2 views of the right hip FINDINGS: Bones appear mildly demineralized. Mild osteoarthritis about the right femoral acetabular joint. No acute fracture or dislocation. Surgical clips project over the right inguinal distribution. Peripheral arterial calcifications are noted. Partially imaged fusion hardware about the lower lumbar spine. IMPRESSION: No acute fracture or dislocation. The above report was generated using voice recognition software. It may contain grammatical, syntax or spelling errors. Electronically signed by: Naman Naqvi M.D. 06/13/2018 1:56 PM Dictated Date/Time: 06/13/2018 1:54 PM
[2018-06-13 14:45] VITALS: BP 99/66; PULSE 107; TEMP 37; O2SAT 91
[2018-06-13 16:00] VITALS: O2SAT 91
[2018-06-13] MEDS: WARFARIN SOD 4 MG TAB PO SCH (16:27)
[2018-06-13 17:16] VITALS: BP 101/62; PULSE 71; O2SAT 93
[2018-06-13] MEDS: PRAVASTATIN SOD 40 MG TAB PO SCH (17:18)
[2018-06-13] MEDS: DOCUSATE SODIUM/SENNA 50/8.6MG TAB PO SCH (20:18)
[2018-06-13 23:15] VITALS: PULSE 67; O2SAT 92
[2018-06-13 23:30] VITALS: BP 106/67; PULSE 67; TEMP 36.5; O2SAT 94
[2018-06-14 06:09] LABS: HEMATOCRIT 35.2 % (37-47); HEMOGLOBIN 11.2 g/dL (12.0-16.0); MEAN CELL VOLUME 99.2 fL (80-100); MEAN CORPUSCULAR HEMOGLOBIN 31.5 pg (25-34); MEAN CORPUSCULAR HGB CONC 31.8 g/dl (32-36); MEAN PLATELET VOLUME 12.6 fL (7.4-10.4); PLATELET COUNT 165 K/uL (130-400); RED CELL DISTRIBUTION WIDTH CV 15.5 % (11.5-14.5); RED CELL DISTRIBUTION WIDTH SD 55.9 fL (36.4-46.3); WHITE BLOOD COUNT 6.25 K/uL (4.8-10.8)
[2018-06-14] MEDS: LEVOTHYROXINE 75 MCG TAB PO SCH (06:09)
[2018-06-14 06:18] LABS: INR 3.2 (0.9-1.1)
[2018-06-14 06:37] LABS: CREATININE 2.36 mg/dl (0.60-1.20); POTASSIUM 4.3 mmol/L (3.5-5.1)
[2018-06-14 07:10] VITALS: BP 118/58; PULSE 62; TEMP 36.3; O2SAT 94
[2018-06-14] MEDS: METOPROLOL SUCC 25MG EXT REL TAB PO SCH (09:13)
[2018-06-14] MEDS: PANTOprazole SOD 40 MG TAB PO SCH (09:14)
[2018-06-14] MEDS: OXYBUTYNIN CHLORIDE 5 MG TABCR PO SCH (09:14)
[2018-06-14] MEDS: FUROSEMIDE INJ 40 MG in SYRINGE 0 ML IV SCH ×2 (09:14→17:11)
[2018-06-14] MEDS: FLUTICASONE/SALMETEROL 250/50 (ADVAIR) 14 PUFF/1 INHALER INH SCH ×2 (09:14→20:36)
[2018-06-14] MEDS: INSULIN ASPART 100 UNITS/ML 3 ML PEN SC SCH ×4 (09:17→20:37)
--- NOTE | 2018-06-14 09:32 | Nephrology Progress Note ---
Nephrology Progress Note Date of Service: Jun 14, 2018. Subjective Patient reports feeling well. No shortness of breath. Her lower extremity edema has subsided.Creatinine is up to 2.3 today Objective Date Time Temp Pulse Resp B/P (MAP) Pulse Ox O2 Delivery O2 Flow Rate FiO2 06/14/18 07:10 36.3 62 18 118/58 (78) 94 BiPAP 06/14/18 00:00 BiPAP 3.0 06/13/18 23:30 36.5 67 18 106/67 (80) 94 BiPAP 06/13/18 23:15 67 92 35 06/13/18 20:00 Nasal Cannula 3.0 06/13/18 17:16 71 101/62 (75) 93 Nasal Cannula 3.0 06/13/18 16:00 91 Nasal Cannula 3.0 06/13/18 14:45 37.0 107 18 99/66 (77) 91 Nasal Cannula 3.0 06/13/18 11:19 Nasal Cannula 3.0 BiPAP Physical Exam: [id number], no acute distress. sitting up in chair Eyes-pupils equal and reactive to light ENT-throat is normal by inspection Neck-neck is supple no JVD Lungs-bilateral crackles and reduced breath sounds Heart-S1 and S2 regular rate and rhythm. No murmurs Abdomen-abdomen soft nondistended bowel sounds are present Extremities-1+ edema bilaterally, legs are warm Neuro-oriented 3, no focal neurological deficits Current Inpatient Medications Medications (Trade) Dose Ordered Sig/Mehdi Route Start Time Stop Time Status Last Admin Dose Admin Ondansetron HCl (Zofran Inj) 4 mg Q6H PRN IV 05/31/18 00:15 06/30/18 00:14 06/13/18 10:12 4 MG Albuterol (Ventolin Hfa Inhaler) 2 puffs Q6 PRN INH 05/31/18 00:45 06/30/18 00:44 Glucose (Glucose 40% Gel) 15-30 GRAMS 15 GRAMS... UD PRN PO 05/31/18 09:15 06/30/18 09:14 Glucose (Glucose Chew Tab) 4-8 Tablets 4 Tabl... UD PRN PO 05/31/18 09:15 06/30/18 09:14 Dextrose (Dextrose 50% 50ML Syringe) 25-50ML 25ML FOR ... UD PRN IV 05/31/18 09:15 06/30/18 09:14 Glucagon (Glucagon Inj) 1 mg UD PRN SQ 05/31/18 09:15 06/30/18 09:14 Carbohydrates (Carbohydrates For Hypoglycemia) 15-30 GRAMS 15 grams if BSG 54-69... UD PRN PO 05/31/18 09:15 06/30/18 09:14 Pantoprazole Sodium (Protonix Tab) 40 mg QAM PO 06/02/18 09:00 07/02/18 08:59 06/14/18 09:14 40 MG Levothyroxine Sodium (Synthroid Tab) 75 mcg DAILYBB PO 06/02/18 09:00 07/02/18 08:59 06/14/18 06:09 75 MCG Insulin Aspart (novoLOG ASPART) SLIDING SCALE If C... ACHS SC 06/02/18 16:00 07/02/18 15:59 06/14/18 09:17 2 UNITS Acetaminophen (Tylenol Tab) 650 mg Q6H PRN PO 06/02/18 18:45 07/02/18 18:44 06/10/18 16:40 650 MG Miscellaneous (Soap Suds Enema) 1 ea Q2HWA PRN NV 06/03/18 10:30 07/03/18 10:29 06/03/18 11:59 1 EA Metoprolol Succinate (Toprol Xl Tab) 12.5 mg QAM PO 06/05/18 09:00 07/05/18 08:59 06/14/18 09:13 12.5 MG Salmeterol Xinafoate/ Fluticasone (Advair Diskus 250/50 Inh) 1 puff BID INH 06/06/18 21:00 07/06/18 20:59 06/14/18 09:14 1 PUFF Oxybutynin Chloride (Ditropan-Xl Tab) 5 mg DAILY PO 06/07/18 09:00 07/07/18 08:59 06/14/18 09:14 5 MG Pravastatin Sodium (Pravachol Tab) 80 mg DAILY@17 PO 06/06/18 17:00 07/06/18 16:59 06/13/18 17:18 80 MG Warfarin Sodium (Coumadin Tab) 4 mg DAILY@16 PO 06/08/18 16:00 07/08/18 15:59 06/13/18 16:27 4 MG Polyethylene (Miralax Powder Packet) 17 gm DAILY PRN PO 06/10/18 13:15 07/10/18 13:14 06/13/18 08:39 17 GM Furosemide 40 mg/ Syringe 4 ml @ 4 mls/min BID17 IV 06/11/18 17:00 07/08/18 17:29 06/14/18 09:14 4 MLS/MIN Senna/Docusate Sodium (Senokot S Tab) 2 tab HS PO 06/11/18 21:00 07/11/18 20:59 06/13/18 20:18 2 TAB Lactulose (Chronulac Syrup) 15 gm BID PRN PO 06/13/18 09:45 07/13/18 09:44 06/13/18 10:12 15 GM Last 24 Hours Test 06/13/18 11:27 06/13/18 16:44 06/13/18 20:20 06/14/18 05:53 Bedside Glucose 93 mg/dl 200 mg/dl 118 mg/dl White Blood Count 6.25 K/uL Red Blood Count 3.55 M/uL Hemoglobin 11.2 g/dL Hematocrit 35.2 % Mean Corpuscular Volume 99.2 fL Mean Corpuscular Hemoglobin 31.5 pg Mean Corpuscular Hemoglobin Concent 31.8 g/dl RDW Standard Deviation 55.9 fL RDW Coefficient of Variation 15.5 % Platelet Count 165 K/uL Mean Platelet Volume 12.6 fL Prothrombin Time 32.7 SECONDS Prothromb Time International Ratio 3.2 Sodium Level 140 mmol/L Potassium Level 4.3 mmol/L Chloride Level 96 mmol/L Carbon Dioxide Level 38 mmol/L Anion Gap 6.0 mmol/L Blood Urea Nitrogen 63 mg/dl Creatinine 2.36 mg/dl Est Creatinine Clear Calc Drug Dose 15.8 ml/min Estimated GFR () 22.9 Estimated GFR (Non- 19.8 BUN/Creatinine Ratio 26.6 Random Glucose 86 mg/dl Calcium Level 9.0 mg/dl Test 06/14/18 07:36 Bedside Glucose 89 mg/dl Assessment & Plan This is a 72-year-old female with 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 1. Acute kidney injury on CKD: Secondary to cardiorenal syndrome. Cr today is up to 2.3 but this is close to her baseline. Monitor renal function with daily BMP. Renal dose medications for current GFR. 2. Metabolic alkalosis: Likely due to contraction alkalosis in setting of diuresis. Continue Lasix to 40 mg IV twice daily. 3. Hypertension: Her BP is well controlled on current regimen. Renal will follow with you. Guillermina Batista MD
--- NOTE | 2018-06-14 13:07 | Progress Note ---
Internal Med Progress Note Date of Service: Jun 14, 2018. Provider Documentation: SUBJECTIVE: Seen and examined at bedside Had BM yesterday mild right hip pain with ambulation Denies chest pain, SOB, dizziness, nausea No other complaints OBJECTIVE: Vital Signs-as noted below Physical Exam: General Appearance:Moderately built and nourished, No distress Head: normocephalic, Atraumatic Eyes: normal inspection, EOMI Neck: supple, Trachea midline Respiratory/Chest:Decreased breath sounds, basal Crackles Cardiovascular: Irregularly Irregular, No murmur Abdomen/GI:Soft, Non tender, Bowel sounds present Extremities/Musculoskelatal:normal inspection, 1+ b/l edema Neurologic/Psych:grossly no focal deficits Skin: normal color Lab data as noted below. ASSESSMENT & PLAN: Patient is a 72 yr female with CKD stage 4 d/t HTN and solitary kidney status with baseline creatinine 1.8-2.0 who presented with possible seizure like activity and Acute Respiratory failure, worsening renal function. Patient was admitted after having a tremors s/p fall at [facility]. Acute on chronic hypoxic respiratory failure (multifactorial causes): Chronic Oxygen dependency H/O ASD repair over 20 years ago. Right sided heart failure ; Diastolic CHF, Pulmonary HTN Chronic cor Pulmonale S/P Extubation on 06/01/18 ECHO: showed EF of 55% but severely dilated RV with pulmonary pressure in the range of 50s No evidence of pulmonary fibrosis. COPD (No evidence of COPD exacerbation and as per ICU physician) Continue bronchodilators, Titrate O2 and keep O2 sat above than 85%. continue statin Appreciate Critical Care, Cardiology, Nephrology Input 06/08/18: CXR: Slight increase in cardiac size. Mild increase in pulmonary vasculature. Small left pleural effusion versus left basilar atelectasis. Continue IV diuretics 40mg BID per Nephrology continue current management Hip Pain: Hip X ray: No acute fracture or dislocation PT/OT H/O Paroxysmal atrial fibrillation: Supra therapeutic INR on admission A flutter with RVR and borderline hemodynamic instability on 06/03/18 requiring cardioversion continue Toprol-XL 12.5 mg per day. Monitor INR:2.1>>2.3>>2.4>>2.6>>3.2 Hold Coumadin today HTN: Monitor blood pressure Hold hydralazine for now Acute kidney injury on CKD IV: cardiorenal syndrome Contraction alkalosis Baseline Cr around 2 Appreciate Nephrology Input Monitor renal function Cr:1.71>>1.9>>2.12>>2.36 Cr slightly increased Alkalosis stable Seizure like activity: likely 2/2 Hypoxia/Hypercarbia As per family, she had an episode of seizure in the past EEG 06/02/18: This electroencephalogram reveals evidence for mild generalized highly nonspecific encephalopathy without lateralizing features and without associated potentially epileptogenic activity Gabapentin Levels high Appreciate Neurology Input Gabapentin discontinued Hypothyroidism: Continue Synthroid Abdominal Pain resolved GERD: continue PPI No acute pathologies seen on CT abdomen on 06/03/18 1. Cirrhotic morphology of the liver with trace abdominal pelvic ascites . 2. Cholelithiasis without CT evidence of acute cholecystitis. 3. No bowel obstruction or focal bowel wall thickening. 4. Colonic diverticulosis without diverticulitis. 5. Small right and trace left pleural effusions with bibasilar consolidative opacities suggesting atelectasis or pneumonia H/O DM II: Diet Controlled A1C:6.0 Continue ISS Monitor BGs Constipation: Continue bowel regimen added lactulose encourage ambulation DVT Px: coumadin Code status: DNR/DNI Disposition: Plan to discharge to Rehab facility when medically stable Vital Signs: Date Time Temp Pulse Resp B/P (MAP) Pulse Ox O2 Delivery O2 Flow Rate FiO2 06/14/18 10:07 Nasal Cannula 3.0 BiPAP 06/14/18 07:10 36.3 62 18 118/58 (78) 94 BiPAP 06/14/18 00:00 BiPAP 3.0 06/13/18 23:30 36.5 67 18 106/67 (80) 94 BiPAP 06/13/18 23:15 67 92 35 06/13/18 20:00 Nasal Cannula 3.0 06/13/18 17:16 71 101/62 (75) 93 Nasal Cannula 3.0 06/13/18 16:00 91 Nasal Cannula 3.0 06/13/18 14:45 37.0 107 18 99/66 (77) 91 Nasal Cannula 3.0 Lab Results: Results Past 24 Hours Test 06/13/18 16:44 06/13/18 20:20 06/14/18 05:53 06/14/18 07:36 Range/Units Bedside Glucose 200 118 89 70-90 mg/dl White Blood Count 6.25 4.8-10.8 K/uL Red Blood Count 3.55 4.2-5.4 M/uL Hemoglobin 11.2 12.0-16.0 g/dL Hematocrit 35.2 37-47 % Mean Corpuscular Volume 99.2 80-100 fL Mean Corpuscular Hemoglobin 31.5 25-34 pg Mean Corpuscular Hemoglobin Concent 31.8 32-36 g/dl RDW Standard Deviation 55.9 36.4-46.3 fL RDW Coefficient of Variation 15.5 11.5-14.5 % Platelet Count 165 130-400 K/uL Mean Platelet Volume 12.6 7.4-10.4 fL Prothrombin Time 32.7 9.0-12.0 SECONDS Prothromb Time International Ratio 3.2 0.9-1.1 Sodium Level 140 136-145 mmol/L Potassium Level 4.3 3.5-5.1 mmol/L Chloride Level 96 98-107 mmol/L Carbon Dioxide Level 38 21-32 mmol/L Anion Gap 6.0 3-11 mmol/L Blood Urea Nitrogen 63 7-18 mg/dl Creatinine 2.36 0.60-1.20 mg/dl Est Creatinine Clear Calc Drug Dose 15.8 ml/min Estimated GFR () 22.9 Estimated GFR (Non- 19.8 BUN/Creatinine Ratio 26.6 10-20 Random Glucose 86 70-99 mg/dl Calcium Level 9.0 8.5-10.1 mg/dl Test 06/14/18 11:48 Range/Units Bedside Glucose 91 70-90 mg/dl
[2018-06-14] MEDS: ACETAMINOPHEN 325 MG TAB PO PRN (14:21)
[2018-06-14 14:56] VITALS: BP 94/59; PULSE 72; TEMP 36.8; O2SAT 95
[2018-06-14 16:04] VITALS: BP 120/75
[2018-06-14] MEDS: PRAVASTATIN SOD 40 MG TAB PO SCH (17:10)
[2018-06-14] MEDS: DOCUSATE SODIUM/SENNA 50/8.6MG TAB PO SCH (20:36)
[2018-06-14 23:05] VITALS: PULSE 73; O2SAT 93
[2018-06-14 23:21] VITALS: BP 100/61; PULSE 70; TEMP 36.8; O2SAT 94
[2018-06-15] MEDS: LEVOTHYROXINE 75 MCG TAB PO SCH (06:24)
[2018-06-15] MEDS: INSULIN ASPART 100 UNITS/ML 3 ML PEN SC SCH ×4 (06:30→20:13)
[2018-06-15 06:36] LABS: INR 3.5 (0.9-1.1)
[2018-06-15 06:59] LABS: CALCIUM 9.1 mg/dl (8.5-10.1); CREATININE 2.24 mg/dl (0.60-1.20); POTASSIUM 4.1 mmol/L (3.5-5.1)
[2018-06-15 07:21] VITALS: BP 109/62; PULSE 61; TEMP 36.3; O2SAT 93
[2018-06-15] MEDS: OXYBUTYNIN CHLORIDE 5 MG TABCR PO SCH (07:46)
[2018-06-15] MEDS: PANTOprazole SOD 40 MG TAB PO SCH (07:46)
[2018-06-15] MEDS: METOPROLOL SUCC 25MG EXT REL TAB PO SCH (07:46)
[2018-06-15] MEDS: FLUTICASONE/SALMETEROL 250/50 (ADVAIR) 14 PUFF/1 INHALER INH SCH ×2 (07:47→20:10)
[2018-06-15] MEDS: FUROSEMIDE INJ 40 MG in SYRINGE 0 ML IV SCH ×2 (08:59→17:17)
--- NOTE | 2018-06-15 10:37 | Nephrology Progress Note ---
Nephrology Progress Note Date of Service: Jun 15, 2018. Subjective Patient reports feeling well. has pain in the right side. No shortness of breath. Her lower extremity edema has subsided. Creatinine is at baseline, 2.2 today Objective Date Time Temp Pulse Resp B/P (MAP) Pulse Ox O2 Delivery O2 Flow Rate FiO2 06/15/18 08:00 Nasal Cannula 3.0 06/15/18 07:21 36.3 61 20 109/62 (78) 93 06/15/18 00:00 BiPAP 3.0 06/14/18 23:21 36.8 70 20 100/61 (74) 94 Nasal Cannula 3.0 06/14/18 23:05 73 93 35 06/14/18 16:04 120/75 (90) 06/14/18 16:00 Nasal Cannula 3.0 06/14/18 14:56 36.8 72 18 94/59 (71) 95 Nasal Cannula 3.0 Physical Exam: [id number], no acute distress. sitting up in chair, on oxygen Eyes-pupils equal and reactive to light ENT-throat is normal by inspection Neck-neck is supple no JVD Lungs-bilateral crackles and reduced breath sounds Heart-S1 and S2 regular rate and rhythm. No murmurs Abdomen-abdomen soft nondistended bowel sounds are present Extremities-1+ edema bilaterally, legs are warm Neuro-oriented 3, no focal neurological deficits Current Inpatient Medications Medications (Trade) Dose Ordered Sig/Mehdi Route Start Time Stop Time Status Last Admin Dose Admin Ondansetron HCl (Zofran Inj) 4 mg Q6H PRN IV 05/31/18 00:15 06/30/18 00:14 06/13/18 10:12 4 MG Albuterol (Ventolin Hfa Inhaler) 2 puffs Q6 PRN INH 05/31/18 00:45 06/30/18 00:44 Glucose (Glucose 40% Gel) 15-30 GRAMS 15 GRAMS... UD PRN PO 05/31/18 09:15 06/30/18 09:14 Glucose (Glucose Chew Tab) 4-8 Tablets 4 Tabl... UD PRN PO 05/31/18 09:15 06/30/18 09:14 Dextrose (Dextrose 50% 50ML Syringe) 25-50ML 25ML FOR ... UD PRN IV 05/31/18 09:15 06/30/18 09:14 Glucagon (Glucagon Inj) 1 mg UD PRN SQ 05/31/18 09:15 06/30/18 09:14 Carbohydrates (Carbohydrates For Hypoglycemia) 15-30 GRAMS 15 grams if BSG 54-69... UD PRN PO 05/31/18 09:15 06/30/18 09:14 Pantoprazole Sodium (Protonix Tab) 40 mg QAM PO 06/02/18 09:00 07/02/18 08:59 06/15/18 07:46 40 MG Levothyroxine Sodium (Synthroid Tab) 75 mcg DAILYBB PO 06/02/18 09:00 07/02/18 08:59 06/15/18 06:24 75 MCG Insulin Aspart (novoLOG ASPART) SLIDING SCALE If C... ACHS SC 06/02/18 16:00 07/02/18 15:59 06/14/18 13:02 1 UNITS Acetaminophen (Tylenol Tab) 650 mg Q6H PRN PO 06/02/18 18:45 07/02/18 18:44 06/14/18 14:21 650 MG Miscellaneous (Soap Suds Enema) 1 ea Q2HWA PRN [place] 06/03/18 10:30 07/03/18 10:29 06/03/18 11:59 1 EA Metoprolol Succinate (Toprol Xl Tab) 12.5 mg QAM PO 06/05/18 09:00 07/05/18 08:59 06/15/18 07:46 12.5 MG Salmeterol Xinafoate/ Fluticasone (Advair Diskus 250/50 Inh) 1 puff BID INH 06/06/18 21:00 07/06/18 20:59 06/15/18 07:47 1 PUFF Oxybutynin Chloride (Ditropan-Xl Tab) 5 mg DAILY PO 06/07/18 09:00 07/07/18 08:59 06/15/18 07:46 5 MG Pravastatin Sodium (Pravachol Tab) 80 mg DAILY@17 PO 06/06/18 17:00 07/06/18 16:59 06/14/18 17:10 80 MG Polyethylene (Miralax Powder Packet) 17 gm DAILY PRN PO 06/10/18 13:15 07/10/18 13:14 06/13/18 08:39 17 GM Furosemide 40 mg/ Syringe 4 ml @ 4 mls/min BID17 IV 06/11/18 17:00 07/08/18 17:29 06/15/18 08:59 4 MLS/MIN Senna/Docusate Sodium (Senokot S Tab) 2 tab HS PO 06/11/18 21:00 07/11/18 20:59 06/14/18 20:36 2 TAB Lactulose (Chronulac Syrup) 15 gm BID PRN PO 06/13/18 09:45 07/13/18 09:44 06/13/18 10:12 15 GM Warfarin Sodium (Coumadin Tab) 3 mg DAILY@16 PO 06/15/18 16:00 07/15/18 15:59 Last 24 Hours Test 06/14/18 11:48 06/14/18 16:21 06/14/18 20:25 06/15/18 06:02 Bedside Glucose 91 mg/dl 125 mg/dl 179 mg/dl Prothrombin Time 36.1 SECONDS Prothromb Time International Ratio 3.5 Sodium Level 140 mmol/L Potassium Level 4.1 mmol/L Chloride Level 96 mmol/L Carbon Dioxide Level 36 mmol/L Anion Gap 8.0 mmol/L Blood Urea Nitrogen 77 mg/dl Creatinine 2.24 mg/dl Est Creatinine Clear Calc Drug Dose 16.6 ml/min Estimated GFR () 24.4 Estimated GFR (Non- 21.1 BUN/Creatinine Ratio 34.2 Random Glucose 91 mg/dl Calcium Level 9.1 mg/dl Test 06/15/18 07:28 Bedside Glucose 117 mg/dl Assessment & Plan This is a 72-year-old female with 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 1. Acute kidney injury on CKD: Secondary to cardiorenal syndrome. Cr today is stable at 2.2 which is close to her baseline. Monitor renal function with daily BMP. Renal dose medications for current GFR. Consider changing to po torsemide 80mg daily. She was on bumex 1mg daily x5 days and 2mg for 2 days but bumex is short acting. She will get better diuresis with torsemide 2. Metabolic alkalosis: Likely due to contraction alkalosis in setting of diuresis and compensation for chronic respiratory acidosis. 3. Hypertension: Her BP is well controlled on current regimen. Renal will follow with you. Guillermina Batista MD
--- NOTE | 2018-06-15 12:42 | Progress Note ---
Internal Med Progress Note Date of Service: Jun 15, 2018. Provider Documentation: SUBJECTIVE: Seen and examined at bedside right hip pain is improving Cr levels near baseline Denies chest pain, SOB, dizziness No other complaints OBJECTIVE: Vital Signs-as noted below Physical Exam: General Appearance:Moderately built and nourished, No distress Head: normocephalic, Atraumatic Eyes: normal inspection, EOMI Neck: supple, Trachea midline Respiratory/Chest:Decreased breath sounds, basal Crackles Cardiovascular: Irregularly Irregular, No murmur Abdomen/GI:Soft, Non tender, Bowel sounds present Extremities/Musculoskelatal:normal inspection, 1+ b/l edema Neurologic/Psych:grossly no focal deficits Skin: normal color Lab data as noted below. ASSESSMENT & PLAN: Patient is a 72 yr female with CKD stage 4 d/t HTN and solitary kidney status with baseline creatinine 1.8-2.0 who presented with possible seizure like activity and Acute Respiratory failure, worsening renal function. Patient was admitted after having a tremors s/p fall at [facility]. Acute on chronic hypoxic respiratory failure (multifactorial causes): Chronic Oxygen dependency H/O ASD repair over 20 years ago. Right sided heart failure ; Diastolic CHF, Pulmonary HTN Chronic cor Pulmonale S/P Extubation on 06/01/18 ECHO: showed EF of 55% but severely dilated RV with pulmonary pressure in the range of 50s No evidence of pulmonary fibrosis. COPD (No evidence of COPD exacerbation and as per ICU physician) Continue bronchodilators, Titrate O2 and keep O2 sat above than 85%. continue statin Appreciate Critical Care, Cardiology, Nephrology Input 06/08/18: CXR: Slight increase in cardiac size. Mild increase in pulmonary vasculature. Small left pleural effusion versus left basilar atelectasis. Continue IV diuretics 40mg BID >>>Transition to Torsemide 80mg daily Hip Pain: Hip X ray: No acute fracture or dislocation Improving PT/OT H/O Paroxysmal atrial fibrillation: Supra therapeutic INR on admission A flutter with RVR and borderline hemodynamic instability on 06/03/18 requiring cardioversion continue Toprol-XL 12.5 mg per day. Monitor INR:2.1>>2.3>>2.4>>2.6>>3.2>>3.5 Hold Coumadin today HTN: Monitor blood pressure DC hydralazine as BP stable off the medication Acute kidney injury on CKD IV: cardiorenal syndrome Contraction alkalosis Baseline Cr around 2 Appreciate Nephrology Input Monitor renal function Cr:1.71>>1.9>>2.12>>2.36>>2.24 Cr near baseline Alkalosis improving Seizure like activity: likely 2/2 Hypoxia/Hypercarbia As per family, she had an episode of seizure in the past EEG 06/02/18: This electroencephalogram reveals evidence for mild generalized highly nonspecific encephalopathy without lateralizing features and without associated potentially epileptogenic activity Gabapentin Levels high Appreciate Neurology Input Gabapentin discontinued Hypothyroidism: Continue Synthroid Abdominal Pain resolved GERD: continue PPI No acute pathologies seen on CT abdomen on 06/03/18 1. Cirrhotic morphology of the liver with trace abdominal pelvic ascites . 2. Cholelithiasis without CT evidence of acute cholecystitis. 3. No bowel obstruction or focal bowel wall thickening. 4. Colonic diverticulosis without diverticulitis. 5. Small right and trace left pleural effusions with bibasilar consolidative opacities suggesting atelectasis or pneumonia H/O DM II: Diet Controlled A1C:6.0 Continue ISS Monitor BGs Constipation: Continue bowel regimen added lactulose encourage ambulation DVT Px: coumadin Code status: DNR/DNI Disposition: Plan to discharge to Rehab facility when medically stable Vital Signs: Date Time Temp Pulse Resp B/P (MAP) Pulse Ox O2 Delivery O2 Flow Rate FiO2 06/15/18 08:00 Nasal Cannula 3.0 06/15/18 07:21 36.3 61 20 109/62 (78) 93 06/15/18 00:00 BiPAP 3.0 06/14/18 23:21 36.8 70 20 100/61 (74) 94 Nasal Cannula 3.0 06/14/18 23:05 73 93 35 06/14/18 16:04 120/75 (90) 06/14/18 16:00 Nasal Cannula 3.0 06/14/18 14:56 36.8 72 18 94/59 (71) 95 Nasal Cannula 3.0 Lab Results: Results Past 24 Hours Test 06/14/18 16:21 06/14/18 20:25 06/15/18 06:02 06/15/18 07:28 Range/Units Bedside Glucose 125 179 117 70-90 mg/dl Prothrombin Time 36.1 9.0-12.0 SECONDS Prothromb Time International Ratio 3.5 0.9-1.1 Sodium Level 140 136-145 mmol/L Potassium Level 4.1 3.5-5.1 mmol/L Chloride Level 96 98-107 mmol/L Carbon Dioxide Level 36 21-32 mmol/L Anion Gap 8.0 3-11 mmol/L Blood Urea Nitrogen 77 7-18 mg/dl Creatinine 2.24 0.60-1.20 mg/dl Est Creatinine Clear Calc Drug Dose 16.6 ml/min Estimated GFR () 24.4 Estimated GFR (Non- 21.1 BUN/Creatinine Ratio 34.2 10-20 Random Glucose 91 70-99 mg/dl Calcium Level 9.1 8.5-10.1 mg/dl Test 06/15/18 11:24 Range/Units Bedside Glucose 112 70-90 mg/dl
[2018-06-15] MEDS: ACETAMINOPHEN 325 MG TAB PO PRN (14:25)
[2018-06-15 14:56] VITALS: BP 103/66; PULSE 89; TEMP 37.1; O2SAT 95
[2018-06-15] MEDS ORDERED: WARFARIN SOD 3 MG TAB PO SCH (16:00)
[2018-06-15] MEDS: PRAVASTATIN SOD 40 MG TAB PO SCH (17:17)
[2018-06-15] MEDS: DOCUSATE SODIUM/SENNA 50/8.6MG TAB PO SCH (20:10)
[2018-06-15 23:01] VITALS: PULSE 75; O2SAT 95
[2018-06-16 00:38] VITALS: BP 103/61; PULSE 60; TEMP 37; O2SAT 93
[2018-06-16 02:20] VITALS: PULSE 70; O2SAT 94
[2018-06-16] MEDS: LEVOTHYROXINE 75 MCG TAB PO SCH (06:00)
[2018-06-16] MEDS: INSULIN ASPART 100 UNITS/ML 3 ML PEN SC SCH ×4 (06:30→20:10)
[2018-06-16 06:33] LABS: INR 2.6 (0.9-1.1)
[2018-06-16 06:47] LABS: CALCIUM 9.1 mg/dl (8.5-10.1); CREATININE 2.79 mg/dl (0.60-1.20)
[2018-06-16 07:42] VITALS: BP 108/57; PULSE 69; TEMP 37.3; O2SAT 91
[2018-06-16] MEDS ORDERED: TORSEMIDE 20 MG TAB PO SCH (08:00)
[2018-06-16] MEDS: PANTOprazole SOD 40 MG TAB PO SCH (08:17)
[2018-06-16] MEDS: OXYBUTYNIN CHLORIDE 5 MG TABCR PO SCH (08:17)
[2018-06-16] MEDS: FLUTICASONE/SALMETEROL 250/50 (ADVAIR) 14 PUFF/1 INHALER INH SCH ×2 (08:19→19:37)
[2018-06-16] MEDS: METOPROLOL SUCC 25MG EXT REL TAB PO SCH (08:21)
--- NOTE | 2018-06-16 13:01 | Progress Note ---
Internal Med Progress Note Date of Service: Jun 16, 2018. Provider Documentation: SUBJECTIVE: Seen and examined at bedside Reports mild abdominal discomfort 2/2 constipation had BM yesterday Denies nausea, vomiting Cr levels worsened today Denies chest pain, SOB, dizziness No other complaints OBJECTIVE: Vital Signs-as noted below Physical Exam: General Appearance:Moderately built and nourished, No distress Head: normocephalic, Atraumatic Eyes: normal inspection, EOMI Neck: supple, Trachea midline Respiratory/Chest:Decreased breath sounds, basal Crackles Cardiovascular: Irregularly Irregular, No murmur Abdomen/GI:Soft, mild tender, Bowel sounds present Extremities/Musculoskelatal:normal inspection, 1+ b/l edema Neurologic/Psych:grossly no focal deficits Skin: normal color Lab data as noted below. ASSESSMENT & PLAN: Patient is a 72 yr female with CKD stage 4 d/t HTN and solitary kidney status with baseline creatinine 1.8-2.0 who presented with possible seizure like activity and Acute Respiratory failure, worsening renal function. Patient was admitted after having a tremors s/p fall at [facility]. Acute on chronic hypoxic respiratory failure (multifactorial causes): Chronic Oxygen dependency H/O ASD repair over 20 years ago. Right sided heart failure ; Diastolic CHF, Pulmonary HTN Chronic cor Pulmonale S/P Extubation on 06/01/18 ECHO: showed EF of 55% but severely dilated RV with pulmonary pressure in the range of 50s No evidence of pulmonary fibrosis. COPD (No evidence of COPD exacerbation and as per ICU physician) Continue bronchodilators, Titrate O2 and keep O2 sat above than 85%. continue statin Appreciate Critical Care, Cardiology, Nephrology Input 06/08/18: CXR: Slight increase in cardiac size. Mild increase in pulmonary vasculature. Small left pleural effusion versus left basilar atelectasis. Continue IV diuretics 40mg BID >>>Transition to Torsemide 80mg daily Cr increased to 2.7 today May need to adjust dose of Torsemide if renal function continues to worsen Hip Pain: Hip X ray: No acute fracture or dislocation Improving PT/OT H/O Paroxysmal atrial fibrillation: Supra therapeutic INR on admission A flutter with RVR and borderline hemodynamic instability on 06/03/18 requiring cardioversion continue Toprol-XL 12.5 mg per day. Monitor INR:2.1>>2.3>>2.4>>2.6>>3.2>>3.5>>2.6 Resume Coumadin tomorrow HTN: Monitor blood pressure DC hydralazine as BP stable off the medication Acute kidney injury on CKD IV: cardiorenal syndrome Contraction alkalosis Baseline Cr around 2 Appreciate Nephrology Input Monitor renal function Cr:1.71>>1.9>>2.12>>2.36>>2.24>>>2.79 Cr increased to 2.79 today May need to adjust diuretic dose Nephrology following Seizure like activity: likely 2/2 Hypoxia/Hypercarbia As per family, she had an episode of seizure in the past EEG 06/02/18: This electroencephalogram reveals evidence for mild generalized highly nonspecific encephalopathy without lateralizing features and without associated potentially epileptogenic activity Gabapentin Levels high Appreciate Neurology Input Gabapentin discontinued Hypothyroidism: Continue Synthroid Abdominal Pain resolved GERD: continue PPI No acute pathologies seen on CT abdomen on 06/03/18 1. Cirrhotic morphology of the liver with trace abdominal pelvic ascites . 2. Cholelithiasis without CT evidence of acute cholecystitis. 3. No bowel obstruction or focal bowel wall thickening. 4. Colonic diverticulosis without diverticulitis. 5. Small right and trace left pleural effusions with bibasilar consolidative opacities suggesting atelectasis or pneumonia H/O DM II: Diet Controlled A1C:6.0 Continue ISS Monitor BGs Constipation: Continue bowel regimen added lactulose encourage ambulation Consider ABx X ray if abd pain worsens DVT Px: coumadin Code status: DNR/DNI Disposition: Plan to discharge to Rehab facility when medically stable Vital Signs: Date Time Temp Pulse Resp B/P (MAP) Pulse Ox O2 Delivery O2 Flow Rate FiO2 06/16/18 08:30 Nasal Cannula 3.0 06/16/18 07:42 37.3 69 18 108/57 (74) 91 Nasal Cannula 3.0 06/16/18 02:20 70 94 35 06/16/18 00:38 37.0 60 20 103/61 (75) 93 BiPAP 06/16/18 00:00 Nasal Cannula 3.0 06/15/18 23:01 75 95 35 06/15/18 20:00 Nasal Cannula 3.0 06/15/18 14:56 37.1 89 18 103/66 (78) 95 Nasal Cannula 3.0 Lab Results: Results Past 24 Hours Test 06/15/18 16:36 06/15/18 20:13 06/16/18 06:05 06/16/18 07:33 Range/Units Bedside Glucose 123 109 98 70-90 mg/dl Prothrombin Time 26.4 9.0-12.0 SECONDS Prothromb Time International Ratio 2.6 0.9-1.1 Sodium Level 140 136-145 mmol/L Potassium Level 4.0 3.5-5.1 mmol/L Chloride Level 96 98-107 mmol/L Carbon Dioxide Level 37 21-32 mmol/L Anion Gap 7.0 3-11 mmol/L Blood Urea Nitrogen 85 7-18 mg/dl Creatinine 2.79 0.60-1.20 mg/dl Est Creatinine Clear Calc Drug Dose 13.4 ml/min Estimated GFR () 18.7 Estimated GFR (Non- 16.2 BUN/Creatinine Ratio 30.3 10-20 Random Glucose 90 70-99 mg/dl Calcium Level 9.1 8.5-10.1 mg/dl Test 06/16/18 11:35 Range/Units Bedside Glucose 114 70-90 mg/dl
[2018-06-16 15:03] VITALS: BP 96/56; PULSE 98; TEMP 37.3; O2SAT 90
[2018-06-16] MEDS: PRAVASTATIN SOD 40 MG TAB PO SCH (16:44)
[2018-06-16] MEDS: DOCUSATE SODIUM/SENNA 50/8.6MG TAB PO SCH (19:37)
--- NOTE | 2018-06-16 19:44 | Nephrology Progress Note ---
Nephrology Progress Note Date of Service: Jun 16, 2018. Subjective some constipation; creatinine worse today; has been out of bed; still very tired /weak Objective Date Time Temp Pulse Resp B/P (MAP) Pulse Ox O2 Delivery O2 Flow Rate FiO2 06/16/18 16:00 Nasal Cannula 3.0 06/16/18 15:03 37.3 98 20 96/56 (69) 90 Nasal Cannula 3.0 06/16/18 08:30 Nasal Cannula 3.0 06/16/18 07:42 37.3 69 18 108/57 (74) 91 Nasal Cannula 3.0 06/16/18 02:20 70 94 35 06/16/18 00:38 37.0 60 20 103/61 (75) 93 BiPAP 06/16/18 00:00 Nasal Cannula 3.0 06/15/18 23:01 75 95 35 06/15/18 20:00 Nasal Cannula 3.0 Physical Exam: General-sleeiping when I enter room; no acute distress.on oxygen Eyes-eomi ENT-hoarse voice Neck-neck is supple Lungs-reduced breath sounds Heart-S1 and S2 regular rate and rhythm. No murmurs; trace BL edema Abdomen-abdomen soft nondistended bowel sounds are present; romero + Extremities-1+ edema bilaterally; no c/c Neuro-oriented 3, but poor historian; generalized weakness Current Inpatient Medications Medications (Trade) Dose Ordered Sig/Mehdi Route Start Time Stop Time Status Last Admin Dose Admin Ondansetron HCl (Zofran Inj) 4 mg Q6H PRN IV 05/31/18 00:15 06/30/18 00:14 06/13/18 10:12 4 MG Albuterol (Ventolin Hfa Inhaler) 2 puffs Q6 PRN INH 05/31/18 00:45 06/30/18 00:44 Glucose (Glucose 40% Gel) 15-30 GRAMS 15 GRAMS... UD PRN PO 05/31/18 09:15 06/30/18 09:14 Glucose (Glucose Chew Tab) 4-8 Tablets 4 Tabl... UD PRN PO 05/31/18 09:15 06/30/18 09:14 Dextrose (Dextrose 50% 50ML Syringe) 25-50ML 25ML FOR ... UD PRN IV 05/31/18 09:15 06/30/18 09:14 Glucagon (Glucagon Inj) 1 mg UD PRN SQ 05/31/18 09:15 06/30/18 09:14 Carbohydrates (Carbohydrates For Hypoglycemia) 15-30 GRAMS 15 grams if BSG 54-69... UD PRN PO 05/31/18 09:15 06/30/18 09:14 Pantoprazole Sodium (Protonix Tab) 40 mg QAM PO 06/02/18 09:00 07/02/18 08:59 06/16/18 08:17 40 MG Levothyroxine Sodium (Synthroid Tab) 75 mcg DAILYBB PO 06/02/18 09:00 07/02/18 08:59 06/16/18 06:00 75 MCG Insulin Aspart (novoLOG ASPART) SLIDING SCALE If C... ACHS SC 06/02/18 16:00 07/02/18 15:59 06/14/18 13:02 1 UNITS Acetaminophen (Tylenol Tab) 650 mg Q6H PRN PO 06/02/18 18:45 07/02/18 18:44 06/15/18 14:25 650 MG Miscellaneous (Soap Suds Enema) 1 ea Q2HWA PRN [place] 06/03/18 10:30 07/03/18 10:29 06/03/18 11:59 1 EA Metoprolol Succinate (Toprol Xl Tab) 12.5 mg QAM PO 06/05/18 09:00 07/05/18 08:59 06/16/18 08:21 12.5 MG Salmeterol Xinafoate/ Fluticasone (Advair Diskus 250/50 Inh) 1 puff BID INH 06/06/18 21:00 07/06/18 20:59 06/16/18 08:19 1 PUFF Oxybutynin Chloride (Ditropan-Xl Tab) 5 mg DAILY PO 06/07/18 09:00 07/07/18 08:59 06/16/18 08:17 5 MG Pravastatin Sodium (Pravachol Tab) 80 mg DAILY@17 PO 06/06/18 17:00 07/06/18 16:59 06/16/18 16:44 80 MG Polyethylene (Miralax Powder Packet) 17 gm DAILY PRN PO 06/10/18 13:15 07/10/18 13:14 06/13/18 08:39 17 GM Senna/Docusate Sodium (Senokot S Tab) 2 tab HS PO 06/11/18 21:00 07/11/18 20:59 06/15/18 20:10 2 TAB Lactulose (Chronulac Syrup) 15 gm BID PRN PO 06/13/18 09:45 07/13/18 09:44 06/13/18 10:12 15 GM Warfarin Sodium (Coumadin Tab) 3 mg DAILY@16 PO 06/15/18 16:00 07/15/18 15:59 Future Hold Torsemide (Demadex Tab) 80 mg QAM PO 06/16/18 08:00 07/16/18 07:59 06/16/18 08:20 80 MG Last 24 Hours Test 06/15/18 20:13 06/16/18 06:05 06/16/18 07:33 06/16/18 11:35 Bedside Glucose 109 mg/dl 98 mg/dl 114 mg/dl Prothrombin Time 26.4 SECONDS Prothromb Time International Ratio 2.6 Sodium Level 140 mmol/L Potassium Level 4.0 mmol/L Chloride Level 96 mmol/L Carbon Dioxide Level 37 mmol/L Anion Gap 7.0 mmol/L Blood Urea Nitrogen 85 mg/dl Creatinine 2.79 mg/dl Est Creatinine Clear Calc Drug Dose 13.4 ml/min Estimated GFR () 18.7 Estimated GFR (Non- 16.2 BUN/Creatinine Ratio 30.3 Random Glucose 90 mg/dl Calcium Level 9.1 mg/dl Test 06/16/18 16:43 Bedside Glucose 123 mg/dl Assessment & Plan 72 year old female with CKD stage 4 d/t HTN and solitary kidney with baseline creatinine 2.0-2.2 and longstanding right heart failure who presented 05/31 w/ possible seizure activity vs hypoxia-induced neurologic deficits >> she presented initially w/ respiratory failure and was intubated briefly; moved out of ICU 06/04; now as of 06/04 w/ worsening renal function w/ creatinine up to 2.6 in the wake of critical illness, some diuretics. Had slowly trended down to baseline creatinine but on 06/16 worse again YAZMIN on CKD4; nonoliguric. numerous factors contributing including periods of hypotension and hypoxia, use of diuretics, afib, heart failure and respiratory failure. anemia acceptable currently as are chemistries; has metabolic alkalosis one would expect on high dose diuretics -started on torsemide 80 mg daily today first dose >>will order diuretic to be held until creatinine posts tomorrow and reassess at that time -daily bmp -cont <2 gm daily Na diet appreciate consult; will follow with you.
[2018-06-16 22:29] VITALS: PULSE 79; O2SAT 93
[2018-06-16 23:13] VITALS: BP 109/58; PULSE 71; TEMP 36.6; O2SAT 90
[2018-06-17] MEDS: LEVOTHYROXINE 75 MCG TAB PO SCH (05:55)
[2018-06-17 06:18] LABS: INR 1.6 (0.9-1.1)
[2018-06-17 06:44] LABS: CREATININE 2.45 mg/dl (0.60-1.20); POTASSIUM 3.9 mmol/L (3.5-5.1)
[2018-06-17 07:41] VITALS: BP 107/64; TEMP 37.3; O2SAT 92
[2018-06-17] MEDS: METOPROLOL SUCC 25MG EXT REL TAB PO SCH (08:35)
[2018-06-17] MEDS: PANTOprazole SOD 40 MG TAB PO SCH (08:35)
[2018-06-17] MEDS: OXYBUTYNIN CHLORIDE 5 MG TABCR PO SCH (08:35)
[2018-06-17] MEDS: FLUTICASONE/SALMETEROL 250/50 (ADVAIR) 14 PUFF/1 INHALER INH SCH (08:35)
[2018-06-17] MEDS: INSULIN ASPART 100 UNITS/ML 3 ML PEN SC SCH ×2 (08:36→12:42)
[2018-06-17] MEDS ORDERED: TORSEMIDE 20 MG TAB PO ONE (10:45)
--- NOTE | 2018-06-17 11:07 | Nephrology Progress Note ---
Nephrology Progress Note Date of Service: Jun 17, 2018. Subjective no c/o but fatigue; on baseline 02 3LNC; still very tired/weak; a bit worried about romero coming out; not bothered by swelling; does c/o gas Objective Date Time Temp Pulse Resp B/P (MAP) Pulse Ox O2 Delivery O2 Flow Rate FiO2 06/17/18 07:41 37.3 16 107/64 (78) 92 3.0 06/17/18 00:00 BiPAP 06/16/18 23:13 36.6 71 19 109/58 (75) 90 CPAP 71 06/16/18 22:29 79 93 35 06/16/18 16:00 Nasal Cannula 3.0 06/16/18 15:03 37.3 98 20 96/56 (69) 90 Nasal Cannula 3.0 Physical Exam: General-lying flat in bed; no acute distress.on oxygen 3L Eyes-eomi ENT-hoarse voice Neck-neck is supple Lungs-reduced breath sounds Heart-S1 and S2 regular rate and rhythm. No murmurs; trace BL edema Abdomen-abdomen soft nondistended bowel sounds are present; romero + Extremities-1+ edema bilaterally; no c/c Neuro- poor historian; +generalized weakness Current Inpatient Medications Medications (Trade) Dose Ordered Sig/Mehdi Route Start Time Stop Time Status Last Admin Dose Admin Ondansetron HCl (Zofran Inj) 4 mg Q6H PRN IV 05/31/18 00:15 06/30/18 00:14 06/13/18 10:12 4 MG Albuterol (Ventolin Hfa Inhaler) 2 puffs Q6 PRN INH 05/31/18 00:45 06/30/18 00:44 Glucose (Glucose 40% Gel) 15-30 GRAMS 15 GRAMS... UD PRN PO 05/31/18 09:15 06/30/18 09:14 Glucose (Glucose Chew Tab) 4-8 Tablets 4 Tabl... UD PRN PO 05/31/18 09:15 06/30/18 09:14 Dextrose (Dextrose 50% 50ML Syringe) 25-50ML 25ML FOR ... UD PRN IV 05/31/18 09:15 06/30/18 09:14 Glucagon (Glucagon Inj) 1 mg UD PRN SQ 05/31/18 09:15 06/30/18 09:14 Carbohydrates (Carbohydrates For Hypoglycemia) 15-30 GRAMS 15 grams if BSG 54-69... UD PRN PO 05/31/18 09:15 06/30/18 09:14 Pantoprazole Sodium (Protonix Tab) 40 mg QAM PO 06/02/18 09:00 07/02/18 08:59 06/17/18 08:35 40 MG Levothyroxine Sodium (Synthroid Tab) 75 mcg DAILYBB PO 06/02/18 09:00 07/02/18 08:59 06/17/18 05:55 75 MCG Insulin Aspart (novoLOG ASPART) SLIDING SCALE If C... ACHS SC 06/02/18 16:00 07/02/18 15:59 06/14/18 13:02 1 UNITS Acetaminophen (Tylenol Tab) 650 mg Q6H PRN PO 06/02/18 18:45 07/02/18 18:44 06/15/18 14:25 650 MG Miscellaneous (Soap Suds Enema) 1 ea Q2HWA PRN HI 06/03/18 10:30 07/03/18 10:29 06/03/18 11:59 1 EA Metoprolol Succinate (Toprol Xl Tab) 12.5 mg QAM PO 06/05/18 09:00 07/05/18 08:59 06/17/18 08:35 12.5 MG Salmeterol Xinafoate/ Fluticasone (Advair Diskus 250/50 Inh) 1 puff BID INH 06/06/18 21:00 07/06/18 20:59 06/17/18 08:35 1 PUFF Oxybutynin Chloride (Ditropan-Xl Tab) 5 mg DAILY PO 06/07/18 09:00 07/07/18 08:59 06/17/18 08:35 5 MG Pravastatin Sodium (Pravachol Tab) 80 mg DAILY@17 PO 06/06/18 17:00 07/06/18 16:59 06/16/18 16:44 80 MG Polyethylene (Miralax Powder Packet) 17 gm DAILY PRN PO 06/10/18 13:15 07/10/18 13:14 06/13/18 08:39 17 GM Senna/Docusate Sodium (Senokot S Tab) 2 tab HS PO 06/11/18 21:00 07/11/18 20:59 06/16/18 19:37 2 TAB Lactulose (Chronulac Syrup) 15 gm BID PRN PO 06/13/18 09:45 07/13/18 09:44 06/13/18 10:12 15 GM Torsemide (Demadex Tab) 80 mg QAM PO 06/16/18 08:00 07/16/18 07:59 06/16/18 08:20 80 MG Warfarin Sodium (Coumadin Tab) 3 mg DAILY@16 PO 06/17/18 16:00 07/17/18 15:59 Last 24 Hours Test 06/16/18 11:35 06/16/18 16:43 06/16/18 20:05 06/17/18 05:44 Bedside Glucose 114 mg/dl 123 mg/dl 138 mg/dl Prothrombin Time 16.7 SECONDS Prothromb Time International Ratio 1.6 Sodium Level 139 mmol/L Potassium Level 3.9 mmol/L Chloride Level 97 mmol/L Carbon Dioxide Level 36 mmol/L Anion Gap 6.0 mmol/L Blood Urea Nitrogen 86 mg/dl Creatinine 2.45 mg/dl Est Creatinine Clear Calc Drug Dose 15.2 ml/min Estimated GFR () 21.9 Estimated GFR (Non- 18.9 BUN/Creatinine Ratio 35.0 Random Glucose 86 mg/dl Calcium Level 9.0 mg/dl Magnesium Level 2.5 mg/dl Test 06/17/18 07:31 Bedside Glucose 99 mg/dl Assessment & Plan 72 year old female with CKD stage 4 d/t HTN and solitary kidney with baseline creatinine 2.0-2.2 and longstanding right heart failure who presented 05/31 w/ possible seizure activity vs hypoxia-induced neurologic deficits >> she presented initially w/ respiratory failure and was intubated briefly; moved out of ICU 06/04; now as of 06/04 w/ worsening renal function w/ creatinine up to 2.6 in the wake of critical illness, some diuretics. Had slowly trended down to baseline creatinine but on 06/16 worse again YAZMIN on CKD4; nonoliguric. numerous factors contributing including periods of hypotension and hypoxia, use of diuretics, afib, heart failure and respiratory failure. anemia acceptable currently as are chemistries; has metabolic alkalosis one would expect on high dose diuretics -started on torsemide 80 mg daily 06/16 >> dose held this am to ensure creatinine improved which it is; will lower torsemide dose to 60 mg daily and continue -daily bmp -cont <2 gm daily Na diet -defer to primary service when to remove romero appreciate consult; will follow with you. care coordinated w/ Dr Olson
[2018-06-17] MEDS ORDERED: TPRSR25 PO (11:55)
[2018-06-17] MEDS ORDERED: TORS20TA3 PO (11:55)
[2018-06-17] MEDS ORDERED: CMD3 PO (11:55)
--- NOTE | 2018-06-17 13:31 | Progress Note ---
Internal Med Progress Note Date of Service: Jun 17, 2018. Provider Documentation: SUBJECTIVE: Seen and examined at bedside. Denies nausea, vomiting . Denies chest pain, SOB, dizziness OBJECTIVE: Physical Exam: General Appearance:Moderately built and nourished, No distress Head: normocephalic, Atraumatic Eyes: normal inspection, EOMI Neck: supple, Trachea midline Respiratory/Chest:Decreased breath sounds, basal Crackles Cardiovascular: Irregularly Irregular, No murmur Abdomen/GI:Soft, mild tender, Bowel sounds present Extremities/Musculoskelatal:normal inspection, 1+ b/l edema Neurologic/Psych:grossly no focal deficits Skin: normal color ASSESSMENT & PLAN: Hospital Course and Plans Patient is a 72 yr female with CKD stage 4 d/t HTN and solitary kidney status with baseline creatinine 1.8-2.0 who presented with possible seizure like activity and Acute Respiratory failure, worsening renal function. Patient was admitted after having a tremors s/p fall at [facility]. Acute on chronic hypoxic respiratory failure (multifactorial causes): Chronic Oxygen dependency H/O ASD repair over 20 years ago. Right sided heart failure ; Diastolic CHF, Pulmonary HTN; possible obstructive sleep apnea Chronic cor Pulmonale S/P Extubation on 06/01/18 ECHO: showed EF of 55% but severely dilated RV with pulmonary pressure in the range of 50s No evidence of pulmonary fibrosis. COPD (No evidence of COPD exacerbation and as per ICU physician) 06/08/18: CXR: Slight increase in cardiac size. Mild increase in pulmonary vasculature. Small left pleural effusion versus left basilar atelectasis. Patient subsequently had diuretic regimen transitioned to IV medications before being on torsemide orally. Patient to be discharged on torsemide 60 mg daily HTN: Patient had home hydralazine medicatio discontinued on this admission as blood pressure was controlled while on diuretics H/O Paroxysmal atrial fibrillation: Supra therapeutic INR on admission A flutter with RVR and borderline hemodynamic instability on 06/03/18 requiring cardioversion continue Toprol-XL 12.5 mg per day. Patient to be discharged on coumadin 3 mg daily Acute kidney injury on CKD IV: cardiorenal syndrome Contraction alkalosis Baseline Cr around 2 Appreciate Nephrology Input Monitor renal function Cr:1.71>>1.9>>2.12>>2.36>>2.24>>>2.79 >> 2.45 Patient will need comprehensive metabolic panel checked on Saturday06/24/18 and 06/26/18 prior to following up with Dr. Batista of nephrology Hip Pain: Hip X ray: No acute fracture or dislocation Seizure like activity: likely 2/2 Hypoxia/Hypercarbia As per family, she had an episode of seizure in the past EEG 06/02/18: This electroencephalogram reveals evidence for mild generalized highly nonspecific encephalopathy without lateralizing features and without associated potentially epileptogenic activity Gabapentin Levels high Neurology evaluated the patient and did not in their assessment that further seizure evaluation of prophylaxis was needed given attribution of symptoms to respiratory event Gabapentin discontinued Hypothyroidism: Continue Synthroid H/O DM II: Diet Controlled Abdominal Pain resolved GERD: continue PPI No acute pathologies seen on CT abdomen on 06/03/18 1. Cirrhotic morphology of the liver with trace abdominal pelvic ascites . 2. Cholelithiasis without CT evidence of acute cholecystitis. 3. No bowel obstruction or focal bowel wall thickening. 4. Colonic diverticulosis without diverticulitis. 5. Small right and trace left pleural effusions with bibasilar consolidative opacities suggesting atelectasis or pneumonia Constipation: discharge medication includes bowel regimen Code status: DNR/DNI Discharge Instructions Patient is to be discharged to [facility]. Patient should follow up with a primary care doctor in 7 days Patient will need to have coumadin levels checked in about 3 to 7 days upon discharge. Patient will need comprehensive metabolic panel checked on Saturday06/24/18 and 06/26/18 prior to following up with Dr. Batista, nephrology [facility] Below are patient's upcoming [facility] appointments 06/23/2018 9:45 AM [facility] Cardiology, [facility] 06/24/2018 10:[address] Jodi South, primary care doctor [facility] 06/25/2018 6:15 PM [facility] 06/30/2018 2:20 PM Guillermina Batista MD Nephrology, [facility] 07/04/2018 1:[address] [facility] 07/04/2018 1:30 PM Luis Fernando Ashby PA-C Cardiology, [facility] Vital Signs: Date Time Temp Pulse Resp B/P (MAP) Pulse Ox O2 Delivery O2 Flow Rate FiO2 06/17/18 08:35 Nasal Cannula 3.0 06/17/18 07:41 37.3 16 107/64 (78) 92 3.0 06/17/18 00:00 BiPAP 06/16/18 23:13 36.6 71 19 109/58 (75) 90 CPAP 71 06/16/18 22:29 79 93 35 06/16/18 16:00 Nasal Cannula 3.0 06/16/18 15:03 37.3 98 20 96/56 (69) 90 Nasal Cannula 3.0 Lab Results: Results Past 24 Hours Test 06/16/18 16:43 06/16/18 20:05 06/17/18 05:44 06/17/18 07:31 Range/Units Bedside Glucose 123 138 99 70-90 mg/dl Prothrombin Time 16.7 9.0-12.0 SECONDS Prothromb Time International Ratio 1.6 0.9-1.1 Sodium Level 139 136-145 mmol/L Potassium Level 3.9 3.5-5.1 mmol/L Chloride Level 97 98-107 mmol/L Carbon Dioxide Level 36 21-32 mmol/L Anion Gap 6.0 3-11 mmol/L Blood Urea Nitrogen 86 7-18 mg/dl Creatinine 2.45 0.60-1.20 mg/dl Est Creatinine Clear Calc Drug Dose 15.2 ml/min Estimated GFR () 21.9 Estimated GFR (Non- 18.9 BUN/Creatinine Ratio 35.0 10-20 Random Glucose 86 70-99 mg/dl Calcium Level 9.0 8.5-10.1 mg/dl Magnesium Level 2.5 1.8-2.4 mg/dl Test 06/17/18 11:36 Range/Units Bedside Glucose 117 70-90 mg/dl
[2018-06-17] MEDS ORDERED: TORS20TA3 OR (13:53)
[2018-06-17 14:23] VITALS: BP 107/64; PULSE 71; TEMP 37.3; O2SAT 92
--- NOTE | 2018-06-17 14:23 | Discharge Instructions ---
Discharge Instructions Date of Service Jun 17, 2018. Admission Reason for Admission: Acute Respiratory Failure, Seizure Discharge Discharge Diagnosis / Problem: acute respiratory failure with hypoxia, acute right sided heart failure,CKD Discharge Goals Goal(s): Improve function, Improve disease control Activity Recommendations Activity Limitations: per Instructions/Follow-up section . Instructions / Follow-Up Instructions / Follow-Up Hospital Course and Plans Patient is a 72 yr female with CKD stage 4 d/t HTN and solitary kidney status with baseline creatinine 1.8-2.0 who presented with possible seizure like activity and Acute Respiratory failure, worsening renal function. Patient was admitted after having a tremors s/p fall at [facility]. Acute on chronic hypoxic respiratory failure (multifactorial causes): Chronic Oxygen dependency H/O ASD repair over 20 years ago. Right sided heart failure ; Diastolic CHF, Pulmonary HTN; possible obstructive sleep apnea Chronic cor Pulmonale S/P Extubation on 06/01/18 ECHO: showed EF of 55% but severely dilated RV with pulmonary pressure in the range of 50s No evidence of pulmonary fibrosis. COPD (No evidence of COPD exacerbation and as per ICU physician) 06/08/18: CXR: Slight increase in cardiac size. Mild increase in pulmonary vasculature. Small left pleural effusion versus left basilar atelectasis. Patient subsequently had diuretic regimen transitioned to IV medications before being on torsemide orally. Patient to be discharged on torsemide 60 mg daily HTN: Patient had home hydralazine medicatio discontinued on this admission as blood pressure was controlled while on diuretics H/O Paroxysmal atrial fibrillation: Supra therapeutic INR on admission A flutter with RVR and borderline hemodynamic instability on 06/03/18 requiring cardioversion continue Toprol-XL 12.5 mg per day. Patient to be discharged on coumadin 3 mg daily Acute kidney injury on CKD IV: cardiorenal syndrome Contraction alkalosis Baseline Cr around 2 Appreciate Nephrology Input Monitor renal function Cr:1.71>>1.9>>2.12>>2.36>>2.24>>>2.79 >> 2.45 Patient will need comprehensive metabolic panel checked on Saturday06/24/18 and 06/26/18 prior to following up with Dr. Batista of nephrology Hip Pain: Hip X ray: No acute fracture or dislocation Seizure like activity: likely 2/2 Hypoxia/Hypercarbia As per family, she had an episode of seizure in the past EEG 06/02/18: This electroencephalogram reveals evidence for mild generalized highly nonspecific encephalopathy without lateralizing features and without associated potentially epileptogenic activity Gabapentin Levels high Neurology evaluated the patient and did not in their assessment that further seizure evaluation of prophylaxis was needed given attribution of symptoms to respiratory event Gabapentin discontinued Hypothyroidism: Continue Synthroid H/O DM II: Diet Controlled Abdominal Pain resolved GERD: continue PPI No acute pathologies seen on CT abdomen on 06/03/18 1. Cirrhotic morphology of the liver with trace abdominal pelvic ascites . 2. Cholelithiasis without CT evidence of acute cholecystitis. 3. No bowel obstruction or focal bowel wall thickening. 4. Colonic diverticulosis without diverticulitis. 5. Small right and trace left pleural effusions with bibasilar consolidative opacities suggesting atelectasis or pneumonia Constipation: discharge medication includes bowel regimen Code status: DNR/DNI Discharge Instructions Patient is to be discharged to [facility]. Patient should follow up with a primary care doctor in 7 days Patient will need to have coumadin levels checked in about 3 to 7 days upon discharge. Patient will need comprehensive metabolic panel checked on Saturday06/24/18 and 06/26/18 prior to following up with Dr. Batista, nephrology Patient should follow with [facility] clinic appointments as below Below are patient's upcoming [facility] clinic appointments 06/23/2018 9:45 AM [facility] Cardiology, [facility] 06/24/2018 10:[address] Jodi South, primary care doctor [facility] 06/25/2018 6:15 PM [facility] Clinic [facility] 06/30/2018 2:20 PM Guillermina Batista MD Nephrology, [facility] 07/04/2018 1:00 PM [facility] 07/04/2018 1:30 PM Luis Fernando Ashby PA-C Cardiology, [facility] Current Hospital Diet Patient's current hospital diet: Diabetes Type 2 Diet, AHA Diet (Heart Healthy) , Low Sodium Diet (2gm Na) Discharge Diet Recommended Diet: AHA Diet (Heart Healthy), Low Sodium Diet (2gm Na), Diabetes Type 2 Diet Pending Studies Studies pending at discharge: no Laboratory Results 06/14/18 05:53 06/17/18 05:44 Test 05/30/18 19:15 05/30/18 19:47 05/30/18 21:45 05/31/18 00:26 Red Blood Cell Morphology Unremarkable Activated Partial Thromboplast Time 45.6 SECONDS (21.0-31.0) Partial Thromboplastin Ratio 1.8 Bedside Lactic Acid Venous 1.89 mmol/L (0.90-1.70) Venous Blood pH 7.39 (7.36-7.41) Venous Blood Partial Pressure CO2 53 mmHg (38.0-50.0) Venous Blood Partial Pressure O2 55 mmHg Venous Blood HCO3 31 mmol/L Venous Blood Oxygen Saturation 87.4 % Venous Blood Base Excess 4.7 mEq/L Arterial Blood pH 7.46 (7.35-7.45) Arterial Blood Partial Pressure CO2 46 mmHg (35-46) Arterial Blood Partial Pressure O2 59 mm/Hg (80-95) Arterial Blood HCO3 32 mmol/L (19-24) Arterial Blood Oxygen Saturation 91.3 % (90-95) Arterial Blood Base Excess 6.7 mEq/L (-9-1.8) Arterial Blood Gas Delivery 60% Aditya Test POS (POS) Test 05/31/18 11:07 06/01/18 04:13 06/02/18 04:23 06/03/18 04:10 Troponin I 0.021 ng/ml (0-0.045) Gabapentin Level 50.0 mcg/mL Platelet Estimate DECREASED Ovalocytes 1+ Estimated Average Glucose 126 mg/dl Hemoglobin A1c 6.0 % (4.5-5.6) Ammonia 13.0 umol/L (11-32) Pro-B-Type Natriuretic Peptide 47372 pg/ml (0-900) Test 06/04/18 00:00 06/04/18 08:26 06/05/18 06:39 06/09/18 06:49 Urine Color YELLOW Urine Appearance CLOUDY (CLEAR) Urine pH 5.0 (4.5-7.5) Urine Specific [place] 1.018 (1.000-1.030) Urine Protein 1+ (NEG) Urine Glucose (UA) NEG (NEG) Urine Ketones NEG (NEG) Urine Occult Blood 2+ (NEG) Urine Nitrite NEG (NEG) Urine Bilirubin NEG (NEG) Urine Urobilinogen NEG (NEG) Urine Leukocyte Esterase SMALL (NEG) Urine WBC (Auto) 5-10 /hpf (0-5) Urine RBC (Auto) 10-30 /hpf (0-4) Urine Hyaline Casts (Auto) 10-30 /lpf (0-5) Urine Epithelial Cells (Auto) >30 /lpf (0-5) Urine Bacteria (Auto) NEG (NEG) Urine Pathogenic Casts 0-3 GRANULAR CASTS /lpf (0) Urine Yeast (Auto) PRESENT (NONE PRSENT) Lactic Acid Level 1.0 mmol/L (0.4-2.0) Immature Granulocyte % (Auto) 0.2 % White Blood Count 5.28 K/uL (4.8-10.8) Red Blood Count 3.59 M/uL (4.2-5.4) Hemoglobin 11.2 g/dL (12.0-16.0) Hematocrit 35.9 % (37-47) Mean Corpuscular Volume 100.0 fL (80-100) Mean Corpuscular Hemoglobin 31.2 pg (25-34) Mean Corpuscular Hemoglobin Concent 31.2 g/dl (32-36) Platelet Count 144 K/uL (130-400) Mean Platelet Volume 12.6 fL (7.4-10.4) Neutrophils (%) (Auto) 65.6 % Lymphocytes (%) (Auto) 19.9 % Monocytes (%) (Auto) 11.6 % Eosinophils (%) (Auto) 2.1 % Basophils (%) (Auto) 0.6 % Neutrophils # (Auto) 3.47 K/uL (1.4-6.5) Lymphocytes # (Auto) 1.05 K/uL (1.2-3.4) Monocytes # (Auto) 0.61 K/uL (0.11-0.59) Eosinophils # (Auto) 0.11 K/uL (0-0.5) Basophils # (Auto) 0.03 K/uL (0-0.2) Immature Granulocyte # (Auto) 0.01 K/uL (0.00-0.02) Phosphorus Level 2.2 mg/dl (2.5-4.9) Test 06/10/18 05:57 06/14/18 05:53 06/17/18 05:44 06/17/18 11:36 Total Bilirubin 0.8 mg/dl (0.2-1) Aspartate Amino Transf (AST/SGOT) 25 U/L (15-37) Alanine Aminotransferase (ALT/SGPT) 27 U/L (12-78) Alkaline Phosphatase 57 U/L (45-117) Total Protein 6.5 gm/dl (6.4-8.2) Albumin 3.1 gm/dl (3.4-5.0) Globulin 3.4 gm/dl (2.5-4.0) Albumin/Globulin Ratio 0.9 (0.9-2) Red Blood Count 3.55 M/uL (4.2-5.4) Mean Corpuscular Volume 99.2 fL (80-100) Mean Corpuscular Hemoglobin 31.5 pg (25-34) Mean Corpuscular Hemoglobin Concent 31.8 g/dl (32-36) RDW Standard Deviation 55.9 fL (36.4-46.3) RDW Coefficient of Variation 15.5 % (11.5-14.5) Mean Platelet Volume 12.6 fL (7.4-10.4) Prothrombin Time 16.7 SECONDS (9.0-12.0) Prothromb Time International Ratio 1.6 (0.9-1.1) Anion Gap 6.0 mmol/L (3-11) Est Creatinine Clear Calc Drug Dose 15.2 ml/min Estimated GFR () 21.9 Estimated GFR (Non- 18.9 BUN/Creatinine Ratio 35.0 (10-20) Calcium Level 9.0 mg/dl (8.5-10.1) Magnesium Level 2.5 mg/dl (1.8-2.4) Bedside Glucose 117 mg/dl (70-90) Date/Time Source Procedure Growth Status 05/31/18 00:26 Blood Blood Culture - Final NO GROWTH Complete 05/31/18 01:35 Nasal MRSA DNA Surveillance Screen - Final Specimen Negative for MRSA by DNA Probe Complete 06/04/18 00:00 Urine,Catheterized Urine Culture - Final NO GROWTH - LESS THAN 1,000 COLONIES/ML Complete Hemoglobin A1c Test 06/01/18 04:13 Range/Units Estimated Average Glucose 126 mg/dl Hemoglobin A1c 6.0 H 4.5-5.6 % Medical Emergencies . Who to Call and When: Medical Emergencies: If at any time you feel your situation is an emergency, please call 911 immediately. . Non-Emergent Contact Non-Emergency issues call your: Primary Care Provider, Expert Witness, Director Of Assisted Living Call Non-Emergent contact if: you have any medication questions . . "Provider Documentation" section prepared by Atul Olson. .
--- NOTE | 2018-06-17 14:52 | Discharge Summary ---
Discharge Summary Date of Service Jun 17, 2018. Discharge Summary Admission Date: May 31, 2018 at 00:27 Discharge Date: Jun 17, 2018 Discharge Disposition: [facility] facility Principal Diagnosis: acute respiratory failure with hypoxia, acute right sided heart failure,CKD, INR monitoring while on Coumadin Secondary Diagnoses/Problems: possible obstructive sleep apnea, pleural effusion requiring diuresis Medication Reconciliation New Medications: Torsemide (Torsemide) 20 Mg Tab 3 TAB OR DAILY for 30 Days, #90 TAB Metoprolol Succinate (Metoprolol Succinate ER) 25 Mg Tabcr 12.5 MG PO QAM for 30 Days, #15 TAB Warfarin Sod (Coumadin) 3 Mg Tab 3 MG PO DAILY@16 for 30 Days, #30 TAB Continued Medications: Acetaminophen Tab (Tylenol) 325 Mg Tab 650 MG PO Q6 PRN for Pain or Fever, TAB Albuterol Sulf (Proventil 0.083% 2.5MG/3ML) 2.5 Mg/3 Ml Nebu 2.5 MG NEB Q6 PRN for Shortness of Breath, EA Albuterol Sulfate (Proventil Hfa) 108 Mcg/Act Aer 2 PUFF INH Q6 PRN for Shortness of Breath Alum & Mag Hydrox-Simethicone (Mylanta Maximum Strength 400-400-40 mg/5Ml) 1 Ciara Ciara 30 ML PO Q4 PRN for HEART BURN Bisacodyl (Dulcolax) 10 Mg Sup 1 SUPP VT UD, SUP PER BOWEL PROTOCAL Brinzolamide Oph (Azopt Oph) 1 % Ciara 1 DROP OPB BID Donepezil HCl (Donepezil HCl) 10 Mg Tab 10 MG PO HS Fluticasone Prop/Salmeterol (Advair Diskus 250/50 60 Dose) 1 Ea Aerp 1 PUFF INH BID, INHALER Fluticasone Propionate (Nasal) (Flonase Allergy Relief) 50 Mcg/Act Spr 1 SPRAY PAULIE BID Levothyroxine Sodium (Levothyroxine Sodium) 75 Mcg Tab 75 MCG PO DAILY, #30 Magnesium Hydroxide (Milk Of Magnesia) 30 Ml Susp 30 ML PO PRN UD, ML Menthol (Mouth-Throat) (Cepacol Sore Throat) 5.4 Mg Keke 1 KEKE PO Q2H PRN for Cough Nitroglycerin (Nitrostat) 0.4 Mg Sub 0.4 MG UT PRN, BTL Oxybutynin Chloride (Oxybutynin Chloride Er) 5 Mg Tab 5 MG PO DAILY Pantoprazole (Pantoprazole Sodium) 40 Mg Tab 40 MG PO DAILY Pravastatin Sodium (Pravastatin Sodium) 80 Mg Tab 80 MG PO QPM Sennosides (Senokot) 8.6 Mg Tab 17.2 MG PO QAM, TAB Sodium Phosphate/Biphosphate (Fleet Enema) Anastacia 1 EA VT UD, BTL PER BOWEL PROTOCAL Umeclidinium [place] (Incruse Ellipta) 62.5 Mcg/Inh Inh 1 INHA PO DAILY Discontinued Medications: Bumetanide (Bumetanide) 1 Mg Tab 1 MG PO 5XWK GIVE SAT, SAT, SAT, ,FRI Bumetanide (Bumex) 2 Mg Tab 2 MG PO 2XWK TAKE TUES & SAT Docusate Sodium (Docusate Sodium) 100 Mg Cap 1 CAP PO BID for 7 Days, #14 CAP Gabapentin (Neurontin) 300 Mg Cap 600 MG PO BID Guaifenesin Ext Rel (Mucinex Ext Rel) 600 Mg Tabcr 600 MG PO Q12, TAB Hydralazine HCl (Hydralazine HCl) 10 Mg Tab 10 MG PO BID Metoprolol Succinate (Metoprolol Succinate ER) 25 Mg Tabcr 25 MG PO DAILY, #20 Polyethylene Glycol 3350 (Miralax) 1 Pow Pow 17 GM PO DAILY, #255 GM Warfarin Sodium (Coumadin) 5 Mg Tab 5 MG PO 5XWK, TAB TAKE SUN, SAT, SAT, , SAT Warfarin Sodium (Coumadin) 5 Mg Tab 2.5 MG PO 2XWK, TAB GIVE EVERY & SAT Admission Information HPI (per Admitting provider): CHIEF COMPLAINT: Possible seizures, acute respiratory failure. HISTORY OF PRESENT ILLNESS: This is a 72-year-old female with past medical history significant for right-sided heart failure, diastolic CHF, pulmonary hypertension, obstructive sleep apnea, COPD, chronic cor pulmonale, noncompliant with BIPAP, chronic respiratory failure on 3lt oxygen history of AFib, atrial flutter status post ablation, chronic kidney disease stage IV, Andrew inhibitor intolerance, hypertension, hyperlipidemia, iron deficiency anemia, osteoarthritis. Currently at [facility] for the last 2 weeks and plan for going to [facility]. Presents with seizure-like episode at [facility]. She fell today after eating lunch. She has some tremors and seizure-like activity and her sugars were running okay. She was brought in here. Initially, she was talking okay in the ER and she was placed on BiPAP. Then again she started shaking and she became somnolent and her oxygen saturation had dropped to 87% to 88% on BiPAP. Daughter was in the room and initially stated patient is DNR and does not want to be intubated, but came in. He said the patient is DNR, but only for long-term vent dependent, but he is okay for intubation for a couple of days. Patient was somnolent and could not be woken up, but blood pressure was okay. Patient was status post intubation in the ER. Saturation improved to 92% to 93% on 60% oxygen after intubation. Chest x-ray showed bilateral pleural effusions and congestion. Labs were remarkable for YAZMIN with a creatinine of 2, INR was 3.4, lactic acid was 1.8, BNP 14,000, potassium of 5.3, and she also received a dose of steroids and antibiotics in the ER. ALLERGIES: AMOXICILLIN, CLARITHROMYCIN, LEVAQUIN, OMEPRAZOLE, QUINOLONES, STATINS, SULFA, AND BACTRIM. PAST MEDICAL HISTORY: As mentioned above. 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 MEDICATIONS: This patient is currently on pravastatin 80 mg p.o. daily, Bumex 1 mg every day and 2 mg on Tuesdays and Saturdays, nitroglycerin 0.4 mg sublingual p.r.n., Toprol-XL 25 mg p.o. daily, Ditropan XL 5 mg p.o. daily, Advair Diskus 250/50 one puff b.i.d., Aricept 10 mg p.o. daily, Ellipta 62.5 mcg one inhalation once daily, gabapentin 600 mg p.o. b.i.d., Coumadin as directed, Protonix 40 mg p.o. daily, hydralazine 10 mg p.o. b.i.d., Colace 100 mg p.o. b.i.d., MiraLax 17 grams daily, levothyroxine 75 mcg daily, Flonase 1 spray into each nostril daily, albuterol 2 puffs every 6 hours p.r.n., albuterol nebulization every 6 hours p.r.n., Azopt 1% ophthalmic suspension 1 drop b.i.d., Senokot 8.6 capsules daily, oxygen 3 liters 24 hours a day. FAMILY HISTORY: Mother has gout. Father and brother are . SOCIAL HISTORY: Former smoker, quit in 2004. Prior to that smoked 1 pack a day for 30 years. No alcohol use, no drug use. Currently living at [facility]. REVIEW OF SYSTEMS: Unobtainable. Physical Exam (per Admitting): PHYSICAL EXAMINATION: GENERAL: The patient is somnolent, currently status post intubation. VITAL SIGNS: Temperature 36.8, pulse 84, respiratory rate 16, blood pressure 158/93, oxygen on BiPAP she was 87% to 88%, but currently status post intubation saturating 93%. HEENT: No pallor, no icterus. NECK: No JVD, no neck masses, no carotid bruits. CARDIOVASCULAR: S1, S2 heard. Regular rate and rhythm, no murmur, no gallop. RESPIRATORY SYSTEM: Normal AP diameter. Currently no accessory muscle use. No wheezing heard. Mild bibasilar crackles. ABDOMEN: Soft, bowel sounds present. No distention. CENTRAL NERVOUS SYSTEM: Currently status post intubated and sedated. EXTREMITIES: Mild pedal edema present. Hospital Course Hospital Course and Plans Patient is a 72 yr female with CKD stage 4 d/t HTN and solitary kidney status with baseline creatinine 1.8-2.0 who presented with possible seizure like activity and Acute Respiratory failure, worsening renal function. Patient was admitted after having a tremors s/p fall at [facility]. Acute on chronic hypoxic respiratory failure (multifactorial causes): Chronic Oxygen dependency H/O ASD repair over 20 years ago. Right sided heart failure ; Diastolic CHF, Pulmonary HTN; possible obstructive sleep apnea Chronic cor Pulmonale S/P Extubation on 06/01/18 ECHO: showed EF of 55% but severely dilated RV with pulmonary pressure in the range of 50s No evidence of pulmonary fibrosis. COPD (No evidence of COPD exacerbation and as per ICU physician) 06/08/18: CXR: Slight increase in cardiac size. Mild increase in pulmonary vasculature. Small left pleural effusion versus left basilar atelectasis. Patient subsequently had diuretic regimen transitioned to IV medications before being on torsemide orally. Patient to be discharged on torsemide 60 mg daily HTN: Patient had home hydralazine medicatio discontinued on this admission as blood pressure was controlled while on diuretics H/O Paroxysmal atrial fibrillation: Supra therapeutic INR on admission A flutter with RVR and borderline hemodynamic instability on 06/03/18 requiring cardioversion continue Toprol-XL 12.5 mg per day. Patient to be discharged on coumadin 3 mg daily Acute kidney injury on CKD IV: cardiorenal syndrome Contraction alkalosis Baseline Cr around 2 Appreciate Nephrology Input Monitor renal function Cr:1.71>>1.9>>2.12>>2.36>>2.24>>>2.79 >> 2.45 Patient will need comprehensive metabolic panel checked on Saturday06/24/18 and 06/26/18 prior to following up with Dr. Batista of nephrology Hip Pain: Hip X ray: No acute fracture or dislocation Seizure like activity: likely 2/2 Hypoxia/Hypercarbia As per family, she had an episode of seizure in the past EEG 06/02/18: This electroencephalogram reveals evidence for mild generalized highly nonspecific encephalopathy without lateralizing features and without associated potentially epileptogenic activity Gabapentin Levels high Neurology evaluated the patient and did not in their assessment that further seizure evaluation of prophylaxis was needed given attribution of symptoms to respiratory event Gabapentin discontinued Hypothyroidism: Continue Synthroid H/O DM II: Diet Controlled Abdominal Pain resolved GERD: continue PPI No acute pathologies seen on CT abdomen on 06/03/18 1. Cirrhotic morphology of the liver with trace abdominal pelvic ascites . 2. Cholelithiasis without CT evidence of acute cholecystitis. 3. No bowel obstruction or focal bowel wall thickening. 4. Colonic diverticulosis without diverticulitis. 5. Small right and trace left pleural effusions with bibasilar consolidative opacities suggesting atelectasis or pneumonia Constipation: discharge medication includes bowel regimen Code status: DNR/DNI Discharge Instructions Patient is to be discharged to [facility]. Patient should follow up with a primary care doctor in 7 days Patient will need to have coumadin levels checked in about 3 to 7 days upon discharge. Patient will need comprehensive metabolic panel checked on Saturday06/24/18 and 06/26/18 prior to following up with Dr. Batista, nephrology Patient should follow with [facility] appointments as below Below are patient's upcoming [facility] appointments 06/23/2018 9:45 AM Remote [facility] Cardiology, [facility] 06/24/2018 10:[address] Jodi South, primary care doctor [facility] 06/25/2018 6:15 PM [facility] [place] 06/30/2018 2:20 PM Guillermina Batista MD Nephrology, [facility] 07/04/2018 1:00 PM [facility] 1:30 PM Luis Fernando Ashby PA-C Cardiology, [facility] Total time spent on discharge = 40 minutes This includes examination of the patient, discharge planning, medication reconciliation, and communication with other providers. Discharge Instructions see above
[2018-06-17] MEDS ORDERED: WARFARIN SOD 3 MG TAB PO SCH (16:00)
[2018-06-18] MEDS ORDERED: TORSEMIDE 20 MG TAB PO SCH (08:00)
== END 2018-06-17 15:15 | DRG 208 ==
LOC: EDBD 19:11 → C.EDB 19:12 → C.MSICU 05-31 00:27 → ENRESERV 05-31 00:32 → C.2T 06-04 11:52 → ENRESERV 06-12 14:29 → C.4E 06-12 15:21
PROVIDERS: ADMIT Internal Medicine; ATTEND Hospitalist
PROC: 5A1945Z Respiratory Ventilation, 24-96 Consecutive Hours (ICD-10-PCS; principal; 2018-05-31)
PROC: 0BH17EZ Insertion of Endotracheal Airway into Trachea, Via Natural or Artificial Opening (ICD-10-PCS; principal; 2018-05-31)
PROC: 5A2204Z Restoration of Cardiac Rhythm, Single (ICD-10-PCS; 2018-06-03)
DX: J96.21 Acute and chronic respiratory failure with hypoxia (principal); Q21.1 Atrial septal defect; N17.9 Acute kidney failure, unspecified; E87.3 Alkalosis; N18.4 Chronic kidney disease, stage 4 (severe); I13.0 Hypertensive heart and chronic kidney disease with heart failure and stage 1 through stage 4 chronic kidney disease, or unspecified chronic kidney disease; I50.33 Acute on chronic diastolic (congestive) heart failure; K21.9 Gastro-esophageal reflux disease without esophagitis; Z90.5 Acquired absence of kidney; J44.9 Chronic obstructive pulmonary disease, unspecified; I25.10 Atherosclerotic heart disease of native coronary artery without angina pectoris; E78.5 Hyperlipidemia, unspecified; E03.9 Hypothyroidism, unspecified; J98.11 Atelectasis; I48.92 Unspecified atrial flutter; Z86.14 Personal history of Methicillin resistant Staphylococcus aureus infection; I49.5 Sick sinus syndrome; Z88.1 Allergy status to other antibiotic agents; Z88.2 Allergy status to sulfonamides; I27.20 Pulmonary hypertension, unspecified; E87.5 Hyperkalemia; R56.9 Unspecified convulsions; G47.33 Obstructive sleep apnea (adult) (pediatric); I27.81 Cor pulmonale (chronic); I48.0 Paroxysmal atrial fibrillation; I50.812 Chronic right heart failure; K59.00 Constipation, unspecified; I08.1 Rheumatic disorders of both mitral and tricuspid valves; K74.60 Unspecified cirrhosis of liver; E83.42 Hypomagnesemia; E11.21 Type 2 diabetes mellitus with diabetic nephropathy; Z99.81 Dependence on supplemental oxygen

== ENCOUNTER 2018-07-02 09:45 | Observation (INO) | payer OTHER ==
[~2018-07-02] VITALS: Ht 149.9 cm; Wt 59.1 kg
[~2018-07-02 09:45] MED LIST changes: +ACET-1693 PO; -ALBU18002 INH; +ALBUAER INH; +ALUM1SUS57 PO; +ARC10 PO; +BISA10SU38 PR; -BMX1 PO; -CALC1CAP36 PO; -CLC/300 PO; +CMD3 PO; +FLUT0.15 NAE; -GABA-113 PO; -HYDR-2977 PO; +MENT5.4L2 PO; +MOML PO; +NITR0.4S UT; -NTRGSL/4 SL; -ONDA4TAB10 SL; -OXGN; +SENN-63 PO; +SODIENE PR; +TORS20TA3 OR; +TPRSR25 PO; -WARF-246 PO
--- NOTE | 2018-07-02 10:02 | EMERGENCY ROOM VISIT NOTE ---
History Report prepared by Kaitlynn: Jennifer Joe Under the Supervision of: Dr. Bright Maurer M.D. First contact with patient: 09:53 Chief Complaint: CHEST PAIN Stated Complaint: CHEST PAIN History of Present Illness The patient is a 72 year old female who presents to the Emergency Room via EMS from [facility] with complaints of intermittent left shoulder pain that started yesterday. The patient rates her pain a 6/10 in severity. She notes the pain started after she got back from physical therapy. The patient states she think she "pulled something in her shoulder." She describes the pain as "sharp. " She notes she is intermittently short of breath when the pain worsens. She reports the pain worsens with movement. She denies any recent falls, pain or swelling in legs, or fevers. The patient also complains of chills and chest pain. She notes she has lost 10 pounds recently. Source of History: patient Onset: yesterday Position: shoulder (left) Symptom Intensity: 6/10 Quality: sharp Timing: intermittent Modifying Factors (Worsening): movement Associated Symptoms: + chills, + chest pain, + SOB, No fevers Review of Systems See HPI for pertinent positives & negatives. A total of 10 systems reviewed and were otherwise negative. Past Medical & Surgical Medical Problems: (1) Acute respiratory failure (2) Afib (3) Anemia (4) ASD (atrial septal defect) (5) Bradycardia (6) CHF exacerbation (7) CKD (chronic kidney disease), stage IV (8) COPD (chronic obstructive pulmonary disease) (9) GERD (gastroesophageal reflux disease) (10) H/O unilateral nephrectomy (11) Heart disease (12) HLD (hyperlipidemia) (13) HTN (hypertension) (14) Hydronephrosis (15) Hyperkalemia (16) Hypertension (17) Hypothyroid (18) Lower extremity edema (19) Mild left ventricular systolic dysfunction (20) MRSA bacteremia (21) Pacemaker (22) Right-sided congestive heart failure (23) Seizure (24) Solitary kidney (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 Nurse's notes were reviewed and I agree with. Family History Heart disease Hypertension Lung disease Social History Smoking Status: Former Smoker Alcohol Use: none Drug Use: none Marital Status: single Housing Status: half-way, other Occupation Status: disabled Current/Historical Medications Scheduled Bisacodyl (Dulcolax), 1 SUPP TX UD Brinzolamide Oph (Azopt Oph), 1 DROP OPB BID Donepezil HCl (Donepezil HCl), 10 MG PO HS Fluticasone Prop/Salmeterol (Advair Diskus 250/50 60 Dose), 1 PUFF INH BID Fluticasone Propionate (Nasal) (Flonase Allergy Relief), 1 SPRAY PAULIE BID Home O2 Therapy (Oxygen), 3 LITERS NA CONTINOUS Levothyroxine Sodium (Levothyroxine Sodium), 75 MCG PO QAM Magnesium Hydroxide (Milk Of Magnesia), 30 ML PO PRN UD Metoprolol Succinate (Metoprolol Succinate ER), 12.5 MG PO QAM Nitroglycerin (Nitrostat), 0.4 MG UT PRN Oxybutynin Chloride (Oxybutynin Chloride Er), 5 MG PO QAM Pantoprazole (Pantoprazole Sodium), 40 MG PO QAM Pravastatin Sodium (Pravastatin Sodium), 80 MG PO QPM Sennosides (Senokot), 17.2 MG PO QAM Sodium Phosphate/Biphosphate (Fleet Enema), 1 EA TX UD Torsemide (Demadex), 3 TAB PO QAM Umeclidinium [place] (Incruse Ellipta), 1 INHA PO QAM Warfarin Sod (Coumadin), 1 TAB PO DAILY@1600 Scheduled PRN Acetaminophen Tab (Tylenol), 650 MG PO Q6 PRN for Pain or Fever Albuterol Sulf (Proventil 0.083% 2.5MG/3ML), 2.5 MG NEB Q6 PRN for Shortness of Breath Albuterol Sulfate (Proventil Hfa), 2 PUFF INH Q6 PRN for Shortness of Breath Alum & Mag Hydrox-Simethicone (Mylanta Maximum Strength 400-400-40 mg/5Ml), 30 ML PO Q4 PRN for HEART BURN Menthol (Mouth-Throat) (Cepacol Sore Throat), 1 SONAM PO Q2H PRN for Cough Polyethylene Glycol 3350 (Miralax), 17 GM PO DAILY PRN for Constipation Allergies Coded Allergies: Levofloxacin (Verified Allergy, Intermediate, HIVES, 07/02/18) Quinolones (Verified Allergy, Intermediate, HIVES, 07/02/18) Ranitidine (Verified Allergy, Intermediate, HIVES, 07/02/18) Sulfamethoxazole (Verified Allergy, Intermediate, HIVES, 07/02/18) Trimethoprim (Verified Allergy, Intermediate, HIVES, 07/02/18) Clarithromycin (Verified Allergy, Mild, HIVES, CAN TAKE ZITHROMAX W/O PROB , 07/02/18) Amoxicillin (Verified Allergy, Unknown, HIVES, 07/02/18) Omeprazole (Verified Allergy, Unknown, HAS HAD PROTONIX, 07/02/18) Pork (Verified Adverse Reaction, Unknown, GI SYMPTOMS, 07/02/18) Intolerance Tomato (Verified Adverse Reaction, Unknown, GI SYMPTOMS, 07/02/18) Intolerance Physical Exam Vital Signs Date Time Temp Pulse Resp B/P (MAP) Pulse Ox O2 Delivery O2 Flow Rate FiO2 07/02/18 13:46 68 18 129/85 94 07/02/18 13:33 94 Nasal Cannula 3.0 07/02/18 13:07 59 16 119/78 94 Nasal Cannula 3.0 07/02/18 12:18 59 07/02/18 11:43 62 18 133/65 95 Nasal Cannula 3.0 07/02/18 09:53 91 Nasal Cannula 3.0 07/02/18 09:53 37.3 67 22 141/79 91 Nasal Cannula 3.0 Physical Exam General: Chronically-ill appearing older female in no acute distress. Comfortable on baseline oxygen. HEENT: Normal cephalic atraumatic. Pupils are equal round and reactive to light. Extraocular movements are intact. Oropharynx is pink with moist mucous membranes. No swelling of the mouth lips or tongue. Neck: Supple with a midline trachea. No meningeal signs or stiffness, no JVD or bruits. No Stridor. Chest: Clear to auscultation bilaterally. No wheezes or rhonchi. No increased work of breathing. Heart: regular rate and rhythm. Abdomen: Soft nontender, nondistended without rebound guarding or rigidity. Extremities: No cyanosis clubbing or edema. No calf tenderness or assymetry. 2+ pulses in upper extremities. Spine/Back. No CVA tenderness. Tender to palpation along left scapula, reproducible with palpation and movement, no redness or warmth. Skin: Good turgor without rashes. Neurologic exam: Cranial nerves two through 12 are intact. Motor and sensation are intact and symmetrical throughout. Medical Decision & Procedures ER Provider Diagnostic Interpretation: Radiology results as stated below per my review and radiologist interpretation: CHEST ONE VIEW PORTABLE CLINICAL HISTORY: Chest pain. COMPARISON STUDY: Chest radiograph June 08, 2018. FINDINGS: Epicardial pacer leads are noted. Moderate cardiomegaly is again noted. Marked dilatation of the central pulmonary arteries is unchanged. Left lower lung retrocardiac opacity is slightly increased since exam of June 08, 2018. There is also right lower lung opacity which is similar to prior exam. There is no pneumothorax. There is a probable small left pleural effusion. There is no evidence for overt pulmonary edema. IMPRESSION: 1. Bibasilar opacities, left greater the right, which are slightly increased since prior exam. This may reflect pneumonia or atelectasis. Radiographic follow-up to ensure resolution is recommended. 2. Moderate cardiomegaly. No change in marked dilatation of the central pulmonary arteries consistent with pulmonary hypertension. 3. Suspected small left pleural effusion. 4. Pulmonary vascular congestion without overt pulmonary edema. Electronically signed by: Alejo Moya M.D. 07/02/2018 11:01 AM Dictated Date/Time: 07/02/2018 10:56 AM Laboratory Results 07/02/18 10:15 Red Blood Count 3.36, Mean Corpuscular Volume 97.0, Mean Corpuscular Hemoglobin 31.8, Mean Corpuscular Hemoglobin Concent 32.8, Mean Platelet Volume 11.7, Neutrophils (%) (Auto) 74.6, Lymphocytes (%) (Auto) 13.7, Monocytes (%) (Auto) 10.9, Eosinophils (%) (Auto) 0.5, Basophils (%) (Auto) 0.2, Neutrophils # (Auto ) 6.48, Lymphocytes # (Auto) 1.19, Monocytes # (Auto) 0.95, Eosinophils # (Auto ) 0.04, Basophils # (Auto) 0.02 07/02/18 10:15 Test 07/02/18 10:15 07/02/18 10:21 White Blood Count 8.69 K/uL (4.8-10.8) Red Blood Count 3.36 M/uL (4.2-5.4) Hemoglobin 10.7 g/dL (12.0-16.0) Hematocrit 32.6 % (37-47) Mean Corpuscular Volume 97.0 fL (80-100) Mean Corpuscular Hemoglobin 31.8 pg (25-34) Mean Corpuscular Hemoglobin Concent 32.8 g/dl (32-36) Platelet Count 225 K/uL (130-400) Mean Platelet Volume 11.7 fL (7.4-10.4) Neutrophils (%) (Auto) 74.6 % Lymphocytes (%) (Auto) 13.7 % Monocytes (%) (Auto) 10.9 % Eosinophils (%) (Auto) 0.5 % Basophils (%) (Auto) 0.2 % Neutrophils # (Auto) 6.48 K/uL (1.4-6.5) Lymphocytes # (Auto) 1.19 K/uL (1.2-3.4) Monocytes # (Auto) 0.95 K/uL (0.11-0.59) Eosinophils # (Auto) 0.04 K/uL (0-0.5) Basophils # (Auto) 0.02 K/uL (0-0.2) RDW Standard Deviation 53.0 fL (36.4-46.3) RDW Coefficient of Variation 14.9 % (11.5-14.5) Immature Granulocyte % (Auto) 0.1 % Immature Granulocyte # (Auto) 0.01 K/uL (0.00-0.02) Prothrombin Time 31.4 SECONDS (9.0-12.0) Prothromb Time International Ratio 3.1 (0.9-1.1) Activated Partial Thromboplast Time 44.1 SECONDS (21.0-31.0) Partial Thromboplastin Ratio 1.7 Anion Gap 7.0 mmol/L (3-11) Est Creatinine Clear Calc Drug Dose 22.1 ml/min Estimated GFR () 32.0 Estimated GFR (Non- 27.6 BUN/Creatinine Ratio 33.5 (10-20) Calcium Level 9.3 mg/dl (8.5-10.1) Magnesium Level 2.3 mg/dl (1.8-2.4) Total Bilirubin 0.5 mg/dl (0.2-1) Direct Bilirubin 0.2 mg/dl (0-0.2) Aspartate Amino Transf (AST/SGOT) 23 U/L (15-37) Alanine Aminotransferase (ALT/SGPT) 20 U/L (12-78) Alkaline Phosphatase 66 U/L (45-117) Total Protein 7.0 gm/dl (6.4-8.2) Albumin 2.8 gm/dl (3.4-5.0) Lipase 288 U/L (73-393) Thyroid Stimulating Hormone (TSH) 3.340 uIu/ml (0.300-4.500) Bedside Troponin I 0.040 ng/ml (0-0.045) Laboratory studies as stated above per my review. Medications Administered Medications (Trade) Dose Ordered Sig/Mehdi Route Start Time Stop Time Status Last Admin Dose Admin Morphine Sulfate (MoRPHine SULFATE INJ) 2 mg NOW STAT IV 07/02/18 10:04 07/02/18 10:05 DC 07/02/18 10:20 2 MG Morphine Sulfate (MoRPHine SULFATE INJ) 2 mg NOW STAT IV 07/02/18 11:52 07/02/18 11:53 DC 07/02/18 12:07 2 MG ECG Per My Interpretation Indication: chest pain Rate (beats per minute): 59 Rhythm: sinus bradycardia Findings: RBBB, other (left anterior fascicular block) Comparison ECG Date: 06/03/18 Change: no significant change ED Course 0953: Past medical records reviewed. The patient was evaluated in room A11B, and a complete history and physical examination were performed. 1004: Ordered Morphine Sulfate 2 mg IV. 1055: I rechecked the patient. She is resting comfortably. 1150: The patient states she is still having some pain and would like more pain medications. 1152: Ordered Morphine Sulfate 1 mg IV. 1218: I discussed the patient's case with Caat Murrieta PA-C, [facility] Hospitalist. She will evaluate the patient for further management. Medical Decision Differential Diagnosis: cardiac disease, pulmonary disease, musculoskeletal, electrolyte or metabolic abnormality, infection, or pneumothorax. This patient comes in as described above she does a very complex medical history. she has pain in her left chest but mostly the shoulder posteriorly after doing physical therapy yesterday. it is exacerbated with movement and palpation. She appears in no distress. IV access was established. I reviewed her old records. I did give her morphine 2 mg IV and she has had this before without problems. EKG, chest x-ray, and multiple blood testing was obtained given her complex history. She was reassessed frequently. Her EKG shows definite no definite acute ischemic changes however T waves are inverted inferiorly compared to the old which does concern me. Her troponin is not elevated. Chest x-ray shows a lot of chronic changes with no definite acute changes. She has no significant for metabolic abnormalities. She did require additional dose of IV morphine. I do think she needs to be observed/admitted given her extensive history and possible EKG changes. [facility]. Medication Reconcilliation Current Medication List: was personally reviewed by me Blood Pressure Screening Patient's blood pressure: Elevated blood pressure (monitor by hospitalist) Consults Time Called: 1215 Consulting Physician: Cata Murrieta PA-C [facility] Hospitalist Returned Call: [phone] I discussed the patient's case with Cata Murrieta PA-C, [facility] Hospitalist. She will evaluate the patient for further management. Impression Primary Impression: Chest pain Additional Impressions: Left shoulder pain EKG abnormalities Scribe Attestation The scribe's documentation has been prepared under my direction and personally reviewed by me in its entirety. I confirm that the note above accurately reflects all work, treatment, procedures, and medical decision making performed by me. Departure Information Dispostion Being Evaluated By Hospitalist Referrals [place] (PCP) Patient Instructions My [facility] Problem Qualifiers
[2018-07-02] MEDS ORDERED: MoRPHine SULFATE 2 MG/ML CARP IV STA ×2 (10:04→11:52)
[2018-07-02 10:28] LABS: BASO % 0.2 %; BASO ABS # 0.02 K/uL (0-0.2); EOS % 0.5 %; EOS ABS # 0.04 K/uL (0-0.5); HEMATOCRIT 32.6 % (37-47); HEMOGLOBIN 10.7 g/dL (12.0-16.0); IG# 0.01 K/uL (0.00-0.02); LYMPH % 13.7 %; LYMPH ABS # 1.19 K/uL (1.2-3.4); MEAN CORPUSCULAR HEMOGLOBIN 31.8 pg (25-34); MEAN CORPUSCULAR HGB CONC 32.8 g/dl (32-36); MEAN PLATELET VOLUME 11.7 fL (7.4-10.4); MONO % 10.9 %; MONO ABS # 0.95 K/uL (0.11-0.59); NEUT % 74.6 %; NEUT ABS # 6.48 K/uL (1.4-6.5); PLATELET COUNT 225 K/uL (130-400); RED CELL DISTRIBUTION WIDTH CV 14.9 % (11.5-14.5); WHITE BLOOD COUNT 8.69 K/uL (4.8-10.8)
[2018-07-02 10:40] LABS: INR 3.1 (0.9-1.1); PTT PATIENT 44.1 SECONDS (21.0-31.0)
[2018-07-02 10:50] LABS: ALBUMIN 2.8 gm/dl (3.4-5.0); CALCIUM 9.3 mg/dl (8.5-10.1); CREATININE 1.79 mg/dl (0.60-1.20); POTASSIUM 3.9 mmol/L (3.5-5.1)
--- NOTE | 2018-07-02 11:03 | DIAGNOSTIC IMAGING REPORT ---
CHEST ONE VIEW PORTABLE CLINICAL HISTORY: Chest pain. COMPARISON STUDY: Chest radiograph June 08, 2018. FINDINGS: Epicardial pacer leads are noted. Moderate cardiomegaly is again noted. Marked dilatation of the central pulmonary arteries is unchanged. Left lower lung retrocardiac opacity is slightly increased since exam of June 08, 2018. There is also right lower lung opacity which is similar to prior exam. There is no pneumothorax. There is a probable small left pleural effusion. There is no evidence for overt pulmonary edema. IMPRESSION: 1. Bibasilar opacities, left greater the right, which are slightly increased since prior exam. This may reflect pneumonia or atelectasis. Radiographic follow-up to ensure resolution is recommended. 2. Moderate cardiomegaly. No change in marked dilatation of the central pulmonary arteries consistent with pulmonary hypertension. 3. Suspected small left pleural effusion. 4. Pulmonary vascular congestion without overt pulmonary edema. Electronically signed by: Alejo Moya M.D. 07/02/2018 11:01 AM Dictated Date/Time: 07/02/2018 10:56 AM
[2018-07-02] MEDS ORDERED: OXGN (11:17)
[2018-07-02] MEDS ORDERED: POLY335019 PO (11:17)
[2018-07-02] MEDS ORDERED: TORS20TA2 PO (11:26)
[2018-07-02] MEDS ORDERED: TPRSR/25 PO (11:26)
[2018-07-02] MEDS ORDERED: CMD3 PO (11:29)
[2018-07-02] MEDS ORDERED: ALUMINUM/MAGNESIUM/SIMETH (MAALOX MAX) 30 ML UDC PO PRN (13:15)
[2018-07-02] MEDS ORDERED: ACETAMINOPHEN 325 MG TAB PO PRN (13:15)
[2018-07-02] MEDS ORDERED: NITROGLYCERIN 0.4 MG SL PER TAB CHARGE SL PRN (13:15)
[2018-07-02] MEDS ORDERED: POLYETHYLENE (MIRALAX) 17 GM PACK PO PRN (13:15)
[2018-07-02] MEDS ORDERED: IV FLUIDS COMPLETED PRN (13:30)
[2018-07-02 13:33] VITALS: O2SAT 94; Ht 149.9 cm; Wt 59.1 kg
[2018-07-02] MEDS ORDERED: GLUCAGON FOR INJ 1 MG VIAL SQ PRN (13:45)
[2018-07-02] MEDS ORDERED: CARBOHYDRATES FOR HYPOGLYCEMIA PO PRN (13:45)
[2018-07-02] MEDS ORDERED: DEXTROSE 50% 50 ML SYR IV PRN (13:45)
[2018-07-02] MEDS ORDERED: ALBUTEROL 0.083% NEBU SOLN 3 ML VIAL INH PRN (13:45)
[2018-07-02] MEDS ORDERED: GLUCOSE 10 TABS/TUBE PO PRN (13:45)
[2018-07-02] MEDS ORDERED: GLUCOSE 40% GEL 15 GM TUBE PO PRN (13:45)
[2018-07-02] MEDS ORDERED: ASPIRIN 81 MG CHEW PO STA (14:19)
--- NOTE | 2018-07-02 14:32 | History and Physical ---
History & Physical Date & Time of Service: Jul 02, 2018 at 13:44 Chief Complaint: Chest Pain Primary Care Physician: Abhijit Lara History of Present Illness Source: patient, clinic records, hospital records Pt is 72 y/o F with PMH HTN, HLD, DM 2-diet controlled, chronic diastolic CHF, chronic pulmonary hypertension, chronic cor pulmonale, JOSIAS, COPD, chronic respiratory failure on 3 L NC oxygen, paroxysmal atrial fibrillation/atrial flutter, iron deficiency anemia presented to ER with complaint of chest pain and left shoulder pain x 1 day. Patient has been doing physical therapy and had physical therapy yesterday working arms and legs. States after returning from physical therapy developed pain to left shoulder, left upper arm, left- sided chest. Pain is aggravated with range of motion of left arm and laying on left shoulder. Reports when gets pain has nausea and feels hot. She was given nitroglycerin at [facility] without relief and sent to ER today. Patient states the past couple of days with nonproductive slight intermittent cough, which she relates is secondary to being in air conditioning. History hospitalization 05/31/18-06/17/18 for acute on chronic respiratory failure requiring intubation, and YAZMIN. Denies fever, V/D/C, FARIA, dizziness, syncope, vision changes, neck pain, increased SOB, orthopnea, palpitations, hemoptysis, sore throat, choking, otalgia, rhinorrhea, abdominal pain, paresthesias, extremity weakness, extremity edema, rashes, urinary symptoms, weight changes. Past Medical/Surgical History Medical Problems: (1) Acute respiratory failure Status: Resolved (2) Afib Permanent Comment: s/p ablation Status: Chronic (3) Anemia Status: Chronic (4) ASD (atrial septal defect) Permanent Comment: repaired Status: Chronic (5) CHF exacerbation Status: Resolved (6) CKD (chronic kidney disease), stage IV Status: Chronic (7) COPD (chronic obstructive pulmonary disease) Status: Chronic (8) GERD (gastroesophageal reflux disease) Status: Chronic (9) H/O unilateral nephrectomy Permanent Comment: right Status: Chronic (10) Heart disease Permanent Comment: mild CAD cath 2007 Status: Chronic (11) HLD (hyperlipidemia) Status: Chronic (12) HTN (hypertension) Status: Chronic (13) Hyperkalemia Status: Resolved (14) Hypertension Status: Chronic (15) Hypothyroid Status: Chronic (16) Lower extremity edema Status: Resolved (17) Mild left ventricular systolic dysfunction Permanent Comment: EF 45-49% echo 04/2016 Status: Chronic (18) MRSA bacteremia Permanent Comment: in the setting of pacemaker vegetation (08/2011) and discitis (02/2012) Status: Resolved (19) Pacemaker Permanent Comment: removed 2010 due to infection Status: Chronic (20) Right-sided congestive heart failure Status: Chronic (21) Seizure Status: Resolved (22) Solitary kidney Status: Chronic (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 Surgical Problems: (1) H/O thyroidectomy Status: Chronic (2) History of appendectomy Status: Chronic (3) S/P MVR (mitral valve repair) Status: Chronic Family History Heart disease Hypertension Lung disease Social History Smoking Status: Former Smoker Smokeless Tobacco Use: No Alcohol Use: none Drug Use: none Marital Status: single Housing status: other ([facility]) Occupational Status: disabled Immunizations History of Influenza Vaccine: Yes Influenza Vaccine Date: Oct 06, 2016 History of Tetanus Vaccine?: Yes Tetanus Immunization Date: Jul 08, 2015 History of Pneumococcal: Yes Pneumococcal Date: May 20, 2015 Allergies Coded Allergies: Levofloxacin (Verified Allergy, Intermediate, HIVES, 07/02/18) Quinolones (Verified Allergy, Intermediate, HIVES, 07/02/18) Ranitidine (Verified Allergy, Intermediate, HIVES, 07/02/18) Sulfamethoxazole (Verified Allergy, Intermediate, HIVES, 07/02/18) Trimethoprim (Verified Allergy, Intermediate, HIVES, 07/02/18) Clarithromycin (Verified Allergy, Mild, HIVES, CAN TAKE ZITHROMAX W/O PROB , 07/02/18) Amoxicillin (Verified Allergy, Unknown, HIVES, 07/02/18) Omeprazole (Verified Allergy, Unknown, HAS HAD PROTONIX, 07/02/18) Pork (Verified Adverse Reaction, Unknown, GI SYMPTOMS, 07/02/18) Intolerance Tomato (Verified Adverse Reaction, Unknown, GI SYMPTOMS, 07/02/18) Intolerance Home Medications Scheduled Bisacodyl (Dulcolax), 1 SUPP IL UD Brinzolamide Oph (Azopt Oph), 1 DROP OPB BID Donepezil HCl (Donepezil HCl), 10 MG PO HS Fluticasone Prop/Salmeterol (Advair Diskus 250/50 60 Dose), 1 PUFF INH BID Fluticasone Propionate (Nasal) (Flonase Allergy Relief), 1 SPRAY PAULIE BID Home O2 Therapy (Oxygen), 3 LITERS NA CONTINOUS Levothyroxine Sodium (Levothyroxine Sodium), 75 MCG PO QAM Magnesium Hydroxide (Milk Of Magnesia), 30 ML PO PRN UD Metoprolol Succinate (Metoprolol Succinate ER), 12.5 MG PO QAM Nitroglycerin (Nitrostat), 0.4 MG UT PRN Oxybutynin Chloride (Oxybutynin Chloride Er), 5 MG PO QAM Pantoprazole (Pantoprazole Sodium), 40 MG PO QAM Pravastatin Sodium (Pravastatin Sodium), 80 MG PO QPM Sennosides (Senokot), 17.2 MG PO QAM Sodium Phosphate/Biphosphate (Fleet Enema), 1 EA IL UD Torsemide (Demadex), 3 TAB PO QAM Umeclidinium Aurora (Incruse Ellipta), 1 INHA PO QAM Warfarin Sod (Coumadin), 1 TAB PO DAILY@1600 Scheduled PRN Acetaminophen Tab (Tylenol), 650 MG PO Q6 PRN for Pain or Fever Albuterol Sulf (Proventil 0.083% 2.5MG/3ML), 2.5 MG NEB Q6 PRN for Shortness of Breath Albuterol Sulfate (Proventil Hfa), 2 PUFF INH Q6 PRN for Shortness of Breath Alum & Mag Hydrox-Simethicone (Mylanta Maximum Strength 400-400-40 mg/5Ml), 30 ML PO Q4 PRN for HEART BURN Menthol (Mouth-Throat) (Cepacol Sore Throat), 1 SONAM PO Q2H PRN for Cough Polyethylene Glycol 3350 (Miralax), 17 GM PO DAILY PRN for Constipation Review of Systems See HPI for pertinent positives & negatives. All other systems reviewed and were otherwise negative Physical Exam Vital Signs Date Time Temp Pulse Resp B/P (MAP) Pulse Ox O2 Delivery O2 Flow Rate FiO2 07/02/18 13:33 94 Nasal Cannula 3.0 07/02/18 13:07 59 16 119/78 94 Nasal Cannula 3.0 07/02/18 12:18 59 07/02/18 11:43 62 18 133/65 95 Nasal Cannula 3.0 07/02/18 09:53 91 Nasal Cannula 3.0 07/02/18 09:53 37.3 67 22 141/79 91 Nasal Cannula 3.0 General Appearance: WD/WN, no apparent distress Head: normocephalic, atraumatic Eyes: normal inspection, sclerae normal ENT: hearing grossly normal, pharynx normal, + pertinent finding (mucous membranes moist) Neck: supple, trachea midline Respiratory/Chest: + decreased breath sounds (throughout, no rales, rhonchi, or wheezing noted) Cardiovascular: regular rate, rhythm, normal peripheral pulses Abdomen/GI: normal bowel sounds, non tender, soft Back: no CVA tenderness Extremities/Musculoskelatal: no calf tenderness, normal capillary refill, no pedal edema, + pertinent finding (Left anterior and posterior shoulder with tenderness to palpation, tenderness reproduced with abduction, internal and external rotation L shoulder. Strength bilateral upper extremities equal) Neurologic/Psych: alert, normal mood/affect, oriented x 3 Skin: warm/dry Diagnostics Laboratory Results Results Past 24 Hours Test 07/02/18 10:15 07/02/18 10:21 Range/Units White Blood Count 8.69 4.8-10.8 K/uL Red Blood Count 3.36 4.2-5.4 M/uL Hemoglobin 10.7 12.0-16.0 g/dL Hematocrit 32.6 37-47 % Mean Corpuscular Volume 97.0 80-100 fL Mean Corpuscular Hemoglobin 31.8 25-34 pg Mean Corpuscular Hemoglobin Concent 32.8 32-36 g/dl Platelet Count 225 130-400 K/uL Mean Platelet Volume 11.7 7.4-10.4 fL Neutrophils (%) (Auto) 74.6 % Lymphocytes (%) (Auto) 13.7 % Monocytes (%) (Auto) 10.9 % Eosinophils (%) (Auto) 0.5 % Basophils (%) (Auto) 0.2 % Neutrophils # (Auto) 6.48 1.4-6.5 K/uL Lymphocytes # (Auto) 1.19 1.2-3.4 K/uL Monocytes # (Auto) 0.95 0.11-0.59 K/uL Eosinophils # (Auto) 0.04 0-0.5 K/uL Basophils # (Auto) 0.02 0-0.2 K/uL RDW Standard Deviation 53.0 36.4-46.3 fL RDW Coefficient of Variation 14.9 11.5-14.5 % Immature Granulocyte % (Auto) 0.1 % Immature Granulocyte # (Auto) 0.01 0.00-0.02 K/uL Prothrombin Time 31.4 9.0-12.0 SECONDS Prothromb Time International Ratio 3.1 0.9-1.1 Activated Partial Thromboplast Time 44.1 21.0-31.0 SECONDS Partial Thromboplastin Ratio 1.7 Sodium Level 138 136-145 mmol/L Potassium Level 3.9 3.5-5.1 mmol/L Chloride Level 102 98-107 mmol/L Carbon Dioxide Level 29 21-32 mmol/L Anion Gap 7.0 3-11 mmol/L Blood Urea Nitrogen 60 7-18 mg/dl Creatinine 1.79 0.60-1.20 mg/dl Est Creatinine Clear Calc Drug Dose 22.1 ml/min Estimated GFR () 32.0 Estimated GFR (Non- 27.6 BUN/Creatinine Ratio 33.5 10-20 Random Glucose 118 70-99 mg/dl Calcium Level 9.3 8.5-10.1 mg/dl Magnesium Level 2.3 1.8-2.4 mg/dl Total Bilirubin 0.5 0.2-1 mg/dl Direct Bilirubin 0.2 0-0.2 mg/dl Aspartate Amino Transf (AST/SGOT) 23 15-37 U/L Alanine Aminotransferase (ALT/SGPT) 20 12-78 U/L Alkaline Phosphatase 66 45-117 U/L Total Protein 7.0 6.4-8.2 gm/dl Albumin 2.8 3.4-5.0 gm/dl Lipase 288 73-393 U/L Thyroid Stimulating Hormone (TSH) 3.340 0.300-4.500 uIu/ml Bedside Troponin I 0.040 0-0.045 ng/ml Diagnostic Radiology CXR: IMPRESSION: 1. Bibasilar opacities, left greater the right, which are slightly increased since prior exam. This may reflect pneumonia or atelectasis. Radiographic follow-up to ensure resolution is recommended. 2. Moderate cardiomegaly. No change in marked dilatation of the central pulmonary arteries consistent with pulmonary hypertension. 3. Suspected small left pleural effusion. 4. Pulmonary vascular congestion without overt pulmonary edema. EKG EKG: sinus bradycardia, rate 59, RBBB, Left anterior fascicular block, more pronounced T wave inversion II, III, AVF than prior EKGs Impression Assessment and Plan Pt is 72 y/o F with PMH HTN, HLD, DM 2-diet controlled, chronic diastolic CHF, chronic pulmonary hypertension, chronic cor pulmonale, JOSIAS, COPD, chronic respiratory failure on 3 L NC oxygen, paroxysmal atrial fibrillation/atrial flutter, iron deficiency anemia presented to ER with complaint of chest pain and left shoulder pain x 1 day, started after doing physical therapy working her arms and legs. CHEST PAIN/LEFT SHOULDER PAIN R/O ACS. Risk factors: HTN, hyperlipidemia, DM Suspect musculoskeletal etiology In ER vitals stable. EKG: more pronounced T wave inversion II, III, AVF. Initial POC troponin: 0.040. Pt was given total 4mg morphine IV with some relief of pain Hx echo 05/2018: * There is mild concentric left ventricular hypertrophy. * Flattened septum is consistent with RV pressure/volume overload. * There is borderline global hypokinesis of the left ventricle. * Ejection Fraction = 50-55%. * The right atrium is severely dilated. * The right ventricle is severely dilated. * There is mild to moderate mitral regurgitation. * There is severe tricuspid regurgitation. * Right ventricular systolic pressure is elevated at 50-60mmHg. -Monitor Vitals -Repeat EKG in am -Will trend troponin -continue statin, metoprolol -ASA -Nitro prn CP and repeat EKG for CP -Lidocaine patch -pending shoulder xray -PT/OT eval -consider cardiology consult if no improvement/worsening BIBASILAR OPACITIES Possible pneumonia vs atelectasis Pt reports mild intermittent non-productive cough past several days. Afebrile. No leukocytosis. 94% on chronic 3L oxygen CXR: 1. Bibasilar opacities, left greater the right, which are slightly increased since prior exam. This may reflect pneumonia or atelectasis. Radiographic follow-up to ensure resolution is recommended. 2. Moderate cardiomegaly. No change in marked dilatation of the central pulmonary arteries consistent with pulmonary hypertension. 3. Suspected small left pleural effusion. 4. Pulmonary vascular congestion without overt pulmonary edema. -cbc in am -doxycycline for now -incentive spirometry CHRONIC RESPIRATORY FAILURE ON CHRONIC OXYGEN - 3L NC COPD CHRONIC DIASTOLIC CHF CHRONIC COR PULMONALE/CHRONIC PULMONARY HYPERTENSION No increased SOB. Appears euvolemic at this time. -continue 3L oxygen NC -continue torsemide -continue home inhalers -nebulizer prn sob/wheezing CKD IV Cr: 1.79 (~baseline) -monitor renal functions -avoid nephrotoxic agents when possible HTN Stable -continue metoprolol H/O PAROXYSMAL ATRIAL FIBRILLATION/A FLUTTER S/P ABLATION INR: 3.1 -hold coumadin tonight, as pt placed on antibiotics -PT INR in am DM II Diet controlled HA1c: 6.0 on 06/01/18 -DM diet -BSG ACHS -Novolog sliding scale per protocol HYPOTHYROIDISM TSH: 3.3 -continue levothyroxine GERD -continue PPI HLD -continue statin JOSIAS -Bipap HS per home settings DVT Prophylaxis -On coumadin Admit Tele Full Code as per discussion with pt Follows with Dr Guerrero PCP and [facility] for routine care Pt was seen with Dr Oviedo. See addendum Attending Note: Patient is a 72 yr female with multiple comorbidities presents from [facility] for evaluation of worsening left shoulder pain and intermittent chest pain. On exam patient is chronically ill appearing, no distress, S1, S2, + murmur, No pedal edema, +Basal crackles, Left shoulder tenderness, grossly no focal deficits on exam. Patient's left shoulder pain is chronic and has worsened after having physical therapy yesterday. Shoulder pain worsens with movement/activity. She also reports epigastric and left sided chest pain which is intermittent, sharp. EKG showed T wave inversion which is more pronounced from baseline in inferior leads. Initial Troponin is negative. Currently patient denies any chest pain, dizziness, nausea, diaphoresis. Chest and left shoulder pain seemed to be likely musculoskeletal in Origin. Shoulder X ray is pending. Patient will be admitted in telemetry floor for chest pain R/O ACS given comorbidities and EKG changes. Aspirin, Statins, Metoprolol will be continued. Consider Cardiology eval if clinically necessary. INR is therapeutic in range. Patient also reports dry cough since one day duration and CXR is suggestive of bibasilar opacities L>R. Patient will be empirically started on Doxycycline. Monitor INR closely and dose Coumadin accordingly. I personally reviewed the record. Patient is interviewed and examined at bedside. Patient's care is coordinated with Cata Schreckengost PA-C. Please refer to the documentation above for details of patient's presentation and for discussion of other issues. Advanced Directives Existing Living Will: No Existing Power of Dust Mop Maker: No Resuscitation Status VTE Prophylaxis Will order VTE Prophylaxis: Yes Additional Copies To [place], [place]
[2018-07-02] MEDS: DOXYCYCLINE HYCLATE 100 MG CAP PO SCH ×2 (15:05→20:10)
[2018-07-02] MEDS: INCRUSE ELLIPTA: ORDER AWAITING ACTION SCH ×2 (15:06→23:15)
--- NOTE | 2018-07-02 16:04 | DIAGNOSTIC IMAGING REPORT ---
LEFT SHOULDER 3 VIEWS CLINICAL HISTORY: Left shoulder pain. FINDINGS: 3 views of the left shoulder are compared to study dated 06/10/2016. The skeletal structures are osteopenic. There is no radiographic evidence of fracture or dislocation. The glenohumeral joint is preserved. Mild productive degenerative change is noted at the acromioclavicular joint. The overlying soft tissues are within normal limits. The imaged left upper lobe lung parenchyma appears clear. Cardiomegaly is observed. IMPRESSION: There is no radiographic evidence of left shoulder fracture or dislocation. Electronically signed by: Roby Hauser M.D. 07/02/2018 4:03 PM Dictated Date/Time: 07/02/2018 4:02 PM
[2018-07-02] MEDS: INSULIN ASPART 100 UNITS/ML 3 ML PEN SC SCH ×2 (17:02→20:11)
[2018-07-02 19:46] VITALS: BP 104/64; PULSE 59; TEMP 36.4; O2SAT 94
[2018-07-02] MEDS: FLUTICASONE PROPIONATE NA SPR 16 GM BTL NAE SCH (20:11)
[2018-07-02] MEDS: BRINZOLAMIDE (AZOPT) OPS 10 ML BTL OPB SCH (20:11)
[2018-07-02] MEDS: FLUTICASONE/SALMETEROL 250/50 (ADVAIR) 14 PUFF/1 INHALER INH SCH (20:12)
[2018-07-02] MEDS ORDERED: PRAVASTATIN SOD 40 MG TAB PO SCH (21:00)
[2018-07-02] MEDS ORDERED: DONEPEZIL HCL 10 MG TAB PO SCH (21:00)
[2018-07-02 21:47] VITALS: PULSE 56; O2SAT 92
[2018-07-02 23:17] VITALS: BP 146/78; PULSE 68; TEMP 36.4; O2SAT 94
[2018-07-03 03:25] VITALS: BP 138/69; PULSE 70; TEMP 36.6; O2SAT 93
[2018-07-03] MEDS ORDERED: LEVOTHYROXINE 75 MCG TAB PO SCH (06:00)
[2018-07-03] MEDS: INSULIN ASPART 100 UNITS/ML 3 ML PEN SC SCH ×3 (07:00→17:00)
[2018-07-03] MEDS: INCRUSE ELLIPTA: ORDER AWAITING ACTION SCH ×2 (07:16→14:55)
[2018-07-03 07:19] VITALS: BP 119/68; PULSE 73; TEMP 36.3; O2SAT 93
[2018-07-03 07:40] LABS: HEMATOCRIT 33.3 % (37-47); HEMOGLOBIN 10.7 g/dL (12.0-16.0); MEAN CELL VOLUME 97.9 fL (80-100); MEAN CORPUSCULAR HEMOGLOBIN 31.5 pg (25-34); MEAN CORPUSCULAR HGB CONC 32.1 g/dl (32-36); MEAN PLATELET VOLUME 11.8 fL (7.4-10.4); PLATELET COUNT 215 K/uL (130-400); RED CELL DISTRIBUTION WIDTH CV 14.9 % (11.5-14.5); WHITE BLOOD COUNT 5.92 K/uL (4.8-10.8)
[2018-07-03 07:59] LABS: INR 3.9 (0.9-1.1)
[2018-07-03 08:08] LABS: CALCIUM 9.3 mg/dl (8.5-10.1); CREATININE 1.68 mg/dl (0.60-1.20); POTASSIUM 4.1 mmol/L (3.5-5.1)
[2018-07-03] MEDS: BRINZOLAMIDE (AZOPT) OPS 10 ML BTL OPB SCH (08:23)
[2018-07-03] MEDS: FLUTICASONE PROPIONATE NA SPR 16 GM BTL NAE SCH (08:23)
[2018-07-03] MEDS: DOXYCYCLINE HYCLATE 100 MG CAP PO SCH (08:23)
[2018-07-03] MEDS: FLUTICASONE/SALMETEROL 250/50 (ADVAIR) 14 PUFF/1 INHALER INH SCH (08:23)
[2018-07-03] MEDS ORDERED: PANTOprazole SOD 40 MG TAB PO SCH (09:00)
[2018-07-03] MEDS ORDERED: OXYBUTYNIN CHLORIDE 5 MG TABCR PO SCH (09:00)
[2018-07-03] MEDS ORDERED: TORSEMIDE 20 MG TAB PO SCH (09:00)
[2018-07-03] MEDS ORDERED: SENNA 8.6 MG TAB PO SCH (09:00)
[2018-07-03] MEDS ORDERED: ASPIRIN 81 MG ECTAB PO SCH (09:00)
[2018-07-03] MEDS ORDERED: LIDODERM (LIDOCAINE) PATCH 5% TD SCH (09:00)
[2018-07-03] MEDS ORDERED: METOPROLOL SUCC 25MG EXT REL TAB PO SCH (09:00)
[2018-07-03 11:10] VITALS: BP 111/62; PULSE 85; TEMP 36.4; O2SAT 93
--- NOTE | 2018-07-03 11:30 | Cardiology Consultation ---
Cardiology Consultation Date of Consultation: Jul 03, 2018 Requesting Physician: Remy Attending Fence Supervisor: Kirstin (Luis Fernando Ashby PA-C) History of Present Illness Mrs. Lea Humphries is a markedly complex 72 year old female who is being seen at the request of Dr. Alberto. Reason for consultation is chest pain. Mrs. Humphries presented to the [facility] ER via ambulance from [facility] secondary to left shoulder discomfort. Patient states "[facility] called the ambulance to get me checked out because my should and neck were freakin killing me and they say I have a touch of pneumonia setting in." Patient describes left shoulder discomfort and left upper anterior chest pain following physical therapy, discomfort aggravated by movement of the left upper extremity and/or laying on her left side. She is more concerned, currently, with nausea and vomiting after breakfast. No exeretional chest pain or discomfort. No tachypalpitations. Stable dyspnea. Mild nonproductive cough. Stable orthopnea. No PND. No peripheral edema. No dizziness, near syncope, or syncope. No excessive bruising or bleeding. (Luis Fernando Ashby PA-C) Past Medical/Surgical History Problem List: Mild coronary artery disease by catheterization in 2007. Paroxysmal atrial flutter status post ablation 07/2015 and 02/07/2016 Paroxysmal atrial fibrillation Chronic coumadin anticoagulation Tachy-Ronan syndrome, status post pacemaker implantation in 2009, pacemaker removal in 2010 secondary to bacteremia and questionable vegetation. Chronic resting bradycardia History of nonsustained ventricular tachycardia. History of undefined syncope, Patient evaluated by EP, Dr. Harrison, who felt that there was no indication for initiation of antiarrhythmic therapy and no indication for ICD implantation. He noted that it is very possible that the VT is mediated by her significant RV failure rather than the more traditional LV source. Status post implantation of a loop recorder on August 16, 2017. Oxygen and steroid dependent COPD Severe pulmonary hypertension, on chronic oxygen therapy. Right heart failure, cor pulmonale ASD repair late in life. Chronic kidney disease stage IV. Recurrent hyperkalemia REGI and ARB intolerance secondary to chronic kidney disease, recurrent hyperkalemia Sleep apnea. Previously treated with BiPAP therapy however this was removed due to noncompliance. Dyslipidemia. GERD. JOSIAS. BiPAP noncompliant Chronic anemia. Hypothyroidism DM type II GERD. Questionable history of transient ischemic attacks. History of bleeding ulcers. Thyroidectomy Appendectomy (Luis Fernando Ashby PA-C) Family History Heart disease Hypertension Lung disease (Luis Fernando Ashby PA-C) Heart disease Hypertension Lung disease (Darien Fulton DO) Social History Smoking Status: Former Smoker Smokeless Tobacco Use: No Alcohol Use: none Drug Use: none Marital Status: single Housing Status: other ([facility]) Occupation: disabled (Luis Fernando Ashby PA-C) Review Of Systems Complete Review of Systems is as stated above, negative, or noncontributory. (Luis Fernando Ashby PA-C) Allergies Coded Allergies: Levofloxacin (Verified Allergy, Intermediate, HIVES, 07/02/18) Quinolones (Verified Allergy, Intermediate, HIVES, 07/02/18) Ranitidine (Verified Allergy, Intermediate, HIVES, 07/02/18) Sulfamethoxazole (Verified Allergy, Intermediate, HIVES, 07/02/18) Trimethoprim (Verified Allergy, Intermediate, HIVES, 07/02/18) Clarithromycin (Verified Allergy, Mild, HIVES, CAN TAKE ZITHROMAX W/O PROB , 07/02/18) Amoxicillin (Verified Allergy, Unknown, HIVES, 07/02/18) Omeprazole (Verified Allergy, Unknown, HAS HAD PROTONIX, 07/02/18) Pork (Verified Adverse Reaction, Unknown, GI SYMPTOMS, 07/02/18) Intolerance Tomato (Verified Adverse Reaction, Unknown, GI SYMPTOMS, 07/02/18) Intolerance Medications Reported Home Medications Medications Dose Route/Sig Max Daily Dose Days Date Category Dose Instructions Coumadin (Warfarin Sod) 3 Mg Tab 1 Tab PO DAILY@1600 07/02/18 Reported Demadex (Torsemide) 20 Mg Tab 3 Tab PO QAM 07/02/18 Reported Metoprolol Succinate ER (Metoprolol Succinate) 25 Mg Tabcr 12.5 Mg PO QAM 07/02/18 Reported Miralax (Polyethylene Glycol 3350) 1 Pow Pow 17 Gm PO DAILY PRN 07/02/18 Reported Oxygen Gas 3 Liters NA CONTINOUS 07/02/18 Reported Tylenol (Acetaminophen) 325 Mg Tab 650 Mg PO Q6 PRN 05/30/18 Reported Proventil Hfa (Albuterol Sulfate) 108 Mcg/Act Aer 2 Puff INH Q6 PRN 05/30/18 Reported Nitrostat (Nitroglycerin) 0.4 Mg Sub 0.4 Mg UT PRN 05/30/18 Reported Mylanta Maximum Strength 400-400-40 mg/5Ml (Alum & Mag Hydrox-Simethicone) 1 Ciara Ciara 30 Ml PO Q4 PRN 05/30/18 Reported Milk Of Magnesia (Magnesium Hydroxide) 30 Ml Susp 30 Ml PO PRN UD 05/30/18 Reported Fleet Enema (Sodium Phosphate/Biphosphate) Anastacia 1 Ea OR UD 05/30/18 Reported PER BOWEL PROTOCAL Dulcolax (Bisacodyl) 10 Mg Sup 1 Supp OR UD 05/30/18 Reported PER BOWEL PROTOCAL Cepacol Sore Throat (Menthol (Mouth-Throat)) 5.4 Mg Keke 1 Keke PO Q2H PRN 05/30/18 Reported Advair Diskus 250/50 60 Dose (Fluticasone Prop/Salmeterol) 1 Ea Aerp 1 Puff INH BID 05/30/18 Reported Senokot (Sennosides) 8.6 Mg Tab 17.2 Mg PO QAM 03/02/18 Reported Donepezil HCl 10 Mg Tab 10 Mg PO HS 03/02/18 Reported Pantoprazole Sodium (Pantoprazole) 40 Mg Tab 40 Mg PO QAM 08/11/17 Reported Azopt Oph (Brinzolamide) 1 % Ciara 1 Drop OPB BID 05/03/17 Reported Incruse Ellipta (Umeclidinium [place]) 62.5 Mcg/Inh Inh 1 Inha PO QAM 05/03/17 Reported Proventil 0.083% 2.5MG/3ML (Albuterol Sulf) 2.5 Mg/3 Ml Nebu 2.5 Mg NEB Q6 PRN 01/09/17 Reported Levothyroxine Sodium 75 Mcg Tab 75 Mcg PO QAM 06/08/16 Reported Flonase Allergy Relief (Fluticasone Propionate (Nasal)) 50 Mcg/Act Spr 1 [place]el PAULIE BID 08/13/15 Reported Pravastatin Sodium 80 Mg Tab 80 Mg PO QPM 07/16/14 Reported Oxybutynin Chloride Er (Oxybutynin Chloride) 5 Mg Tab 5 Mg PO QAM 07/16/14 Reported (Luis Fernando Ashby PA-C) Physical Exam Vital Signs (Last 8hrs): Last 8 Hrs Date Time Temp Pulse Resp B/P (MAP) Pulse Ox O2 Delivery O2 Flow Rate FiO2 07/03/18 07:19 36.3 73 18 119/68 (85) 93 Nasal Cannula 3.0 07/03/18 03:25 36.6 70 18 138/69 (92) 93 BiPAP General: Alert and Oriented x3. Acutely ill. Chronically ill. HEENT: Normocephalic Atraumatic. PER, EOMI, conjunctiva and sclera pale Neck: No carotid bruits noted. No JVD. No HJD. Respiratory: Decreased. Diminished. Clear. Cardiovascular: Regular, bradycardic at 52 bpm. Soft apical systolic murmur. Abdomen: +BS. Somewhat firm. Distended. Extremities: Minimal edema. Lymphedematous changes. No cyanosis. Neuro: No focal deficits. Psychiatric: Normal affect. (Luis Fernando Ashby PA-C) Data Last 24 Hours Test 07/02/18 16:47 07/02/18 16:55 07/02/18 20:11 07/02/18 22:07 Bedside Glucose 120 mg/dl 96 mg/dl Troponin I 0.050 ng/ml 0.044 ng/ml Pro-B-Type Natriuretic Peptide 5055 pg/ml Test 07/03/18 07:18 07/03/18 07:23 Bedside Glucose 99 mg/dl White Blood Count 5.92 K/uL Red Blood Count 3.40 M/uL Hemoglobin 10.7 g/dL Hematocrit 33.3 % Mean Corpuscular Volume 97.9 fL Mean Corpuscular Hemoglobin 31.5 pg Mean Corpuscular Hemoglobin Concent 32.1 g/dl RDW Standard Deviation 53.0 fL RDW Coefficient of Variation 14.9 % Platelet Count 215 K/uL Mean Platelet Volume 11.8 fL Prothrombin Time 40.0 SECONDS Prothromb Time International Ratio 3.9 Sodium Level 140 mmol/L Potassium Level 4.1 mmol/L Chloride Level 103 mmol/L Carbon Dioxide Level 30 mmol/L Anion Gap 7.0 mmol/L Blood Urea Nitrogen 55 mg/dl Creatinine 1.68 mg/dl Est Creatinine Clear Calc Drug Dose 23.3 ml/min Estimated GFR () 34.6 Estimated GFR (Non- 29.8 BUN/Creatinine Ratio 32.4 Random Glucose 87 mg/dl Calcium Level 9.3 mg/dl Magnesium Level 2.2 mg/dl Coronary angiography as a precursor to ASD repair was performed on January 13, 2008 and demonstrated low normal LV systolic function with an estimated EF of 55 % and a 50% narrowing of the RCA at the acute margin with otherwise no luminal irregularities of other vessels. May 31, 2018 TTE Interpretation Summary ([facility], Dr. Lay): Compared to prior study, there is no significant change. The left ventricle is normal in size. There is mild concentric left ventricular hypertrophy. Flattened septum is consistent with RV pressure/volume overload. There is borderline global hypokinesis of the left ventricle. Ejection Fraction = 50-55%. The right atrium is severely dilated. The right ventricle is severely dilated. There is mild to moderate mitral regurgitation. There is severe tricuspid regurgitation. Right ventricular systolic pressure is elevated at 50-60mmHg. Admission EKG: Sinus bradycardia at 59 bpm with fusion complexes, RBBB, LAFB, bifascicular block. EKG this morning revealed normal sinus rhythm at 60 bpm with a RBBB, LAFB, bifascicular block. Telemetry: Sinus bradycardia in the 50's with occasional PVC's. Admission CXR: Bibasilar opacities, left greater the right, which are slightly increased since prior exam. This may reflect pneumonia or atelectasis. Radiographic follow-up to ensure resolution is recommended. Moderate cardiomegaly. No change in marked dilatation of the central pulmonary arteries consistent with pulmonary hypertension. Suspected small left pleural effusion. Pulmonary vascular congestion without overt pulmonary edema. Left Shoulder X-Ray: No radiographic evidence of left shoulder fracture or dislocation. (Luis Fernando Ashby, DESTINEEC) Assessment & Plan Chest pain Atypical. At rest. Reproduced with movement of the left upper extremity and/ or laying on the side. Suspect musculoskeletal etiology. Mild coronary artery disease by catheterization in 2007. EKG's without acute change. Troponin initially 0.050 ng/mL then 0.044 ng/mL (Stage IV CKD, possible pneumonia) Recommend conservative cardiac medical management at this time. Compensated right heart failure signs and symptoms. History of severe pulmonary hypertension (ASD s/p repair in 2007), oxygen and steroid dependent COPD, cor pulmonale physiology. History of paroxysmal atrial fibrillation/flutter status post flutter ablation 07/2015 and 02/07/2016, status post direct current cardioversion last in May 2018. Chronic Coumadin anticoagulation Tachy-Ronan syndrome, status post pacemaker implantation in 2009, pacemaker removal in 2010 secondary to bacteremia and questionable vegetation. Chronic resting bradycardia. Currently with an implanted loop recorder History of nonsustained ventricular tachycardia. Asymptomatic. Preserved left ventricular systolic function REGI and ARB intolerance secondary to chronic kidney disease, recurrent hyperkalemia Sleep apnea. Previously treated with BiPAP therapy however this was removed due to noncompliance. Dyslipidemia. (Luis Fernando Ashby, PAVjC) Cardiology attending physician: Patient seen and examined at the bedside. Reports left-sided neck, shoulder, posterior scapular discomfort which is reproduced with palpation as well as movement. Denies chest pain or unusual shortness of breath. No recurrent lightheadedness, dizziness, syncope or near syncope. No dysrhythmias on telemetry. Patient consuming her midday meal. Offers no other complaints at this time. PE: VSS. Gen: NAD, awake and alert. Heart: Regular, bradycardic, normal S1, S2. Soft 1/6 midsystolic murmur heard best at the left sternal border. Lungs are clear without rales, rhonchi, or wheeze. Abdomen soft nontender no rebound or guarding. Extremities warm and dry without clubbing, cyanosis, or edema. A/P: Agree with above PAVjC history, physical exam, assessment and plan. Patient presents with musculoskeletal neck and shoulder discomfort. No evidence of acute coronary syndrome at this time. We will continue conservative medical management from a cardiovascular perspective. Thank you for allowing us to participate in the care of your patient. (Darien Fulton., DO)
--- NOTE | 2018-07-03 14:02 | Hospitalist Progress Note ---
Hospitalist Progress Note Date of Service Jul 03, 2018. (Cata Doyle ., PA-C) Subjective Pt evaluation today including: conversation w/ patient, physical exam, chart review, lab review, review of studies, review of inpatient medication list Pt seen and examined. Sitting up in bed. Reports was blowing nose this morning then became nauseated and vomited "white stuff" in tissue. States since has had no further nausea or vomiting. Denies abdominal pain. No BM yet today. States still with occasional cough. denies any further L shoulder pain or CP. Denies any increased SOB, feels she is at her baseline. Denies fever/chills, diaphoresis,FARIA, dizziness, neck pain, palpitations, hemoptysis, sore throat, choking, urinary symptoms. (Cata Doyle ., PA-C) Medications Medications (Trade) Dose Ordered Sig/Mehdi Route Start Time Stop Time Status Last Admin Dose Admin Al Hydrox/Mg Hydrox/Simethicone (Maalox Max Susp) 15 ml Q4H PRN PO 07/02/18 13:15 08/01/18 13:14 07/03/18 09:28 15 ML Aspirin (Ecotrin Tab) 81 mg QAM PO 07/03/18 09:00 08/02/18 08:59 07/03/18 08:22 81 MG Miscellaneous (Remove Lidoderm Patch) 1 ea DAILY@21 N/A 07/02/18 21:00 08/01/18 20:59 07/02/18 20:12 1 EA Doxycycline Hyclate (Vibramycin Cap) 100 mg BID PO 07/02/18 15:00 07/09/18 14:59 07/03/18 08:23 100 MG Brinzolamide (Azopt) 1 drops BID OPB 07/02/18 21:00 08/01/18 20:59 07/03/18 08:23 1 DROPS Donepezil HCl (Aricept Tab) 10 mg HS PO 07/02/18 21:00 08/01/18 20:59 07/02/18 20:10 10 MG Salmeterol Xinafoate/ Fluticasone (Advair Diskus 250/50 Inh) 1 puff BID INH 07/02/18 21:00 08/01/18 20:59 07/03/18 08:23 1 PUFF Fluticasone Propionate (Flonase Nasal [place]) 1 sprays BID PAULIE 07/02/18 21:00 08/01/18 20:59 07/03/18 08:23 1 SPRAYS Levothyroxine Sodium (Synthroid Tab) 75 mcg DAILYBB PO 07/03/18 06:00 08/02/18 05:59 07/03/18 06:30 75 MCG Metoprolol Succinate (Toprol Xl Tab) 12.5 mg QAM PO 07/03/18 09:00 08/02/18 08:59 07/03/18 08:20 12.5 MG Oxybutynin Chloride (Ditropan-Xl Tab) 5 mg QAM PO 07/03/18 09:00 08/02/18 08:59 07/03/18 08:20 5 MG Pantoprazole Sodium (Protonix Tab) 40 mg QAM PO 07/03/18 09:00 08/02/18 08:59 07/03/18 08:20 40 MG Senna (Senokot Tab) 17.2 mg QAM PO 07/03/18 09:00 08/02/18 08:59 07/03/18 08:21 17.2 MG Torsemide (Demadex Tab) 60 mg QAM PO 07/03/18 09:00 08/02/18 08:59 07/03/18 08:22 60 MG Pravastatin Sodium (Pravachol Tab) 80 mg QPM PO 07/02/18 21:00 08/01/18 20:59 07/02/18 20:11 80 MG Aspirin (Aspirin Chew) 324 mg NOW STAT PO 07/02/18 14:19 07/02/18 14:25 DC 07/02/18 15:04 324 MG (Cata Doyle, ARNAV) Objective Vital Signs Date Time Temp Pulse Resp B/P (MAP) Pulse Ox O2 Delivery O2 Flow Rate FiO2 07/03/18 11:10 36.4 85 18 111/62 (78) 93 Nasal Cannula 3.0 07/03/18 09:00 Nasal Cannula 3.0 07/03/18 07:19 36.3 73 18 119/68 (85) 93 Nasal Cannula 3.0 07/03/18 03:25 36.6 70 18 138/69 (92) 93 BiPAP 07/03/18 00:00 BiPAP 4.0 07/02/18 23:17 36.4 68 16 146/78 (100) 94 07/02/18 21:47 56 92 4.0 07/02/18 20:00 Nasal Cannula 2.0 07/02/18 19:46 36.4 59 20 104/64 (77) 94 Nasal Cannula 2.0 07/02/18 15:44 Nasal Cannula 3.0 07/02/18 13:46 68 18 129/85 94 07/02/18 13:33 94 Nasal Cannula 3.0 07/02/18 13:07 59 16 119/78 94 Nasal Cannula 3.0 07/02/18 12:18 59 (Cata Doyle, LYNN-C) Physical Exam General Appearance: WD/WN, no apparent distress, + pertinent finding (chronic ill appearance) Eyes: sclerae normal ENT: hearing grossly normal, pharynx normal, + pertinent finding (mucous membranes moist) Neck: supple, trachea midline Respiratory/Chest: no respiratory distress, no accessory muscle use, + decreased breath sounds Cardiovascular: regular rate, rhythm, + systolic murmur Abdomen: normal bowel sounds, non tender, soft Extremities: non-tender, + pedal edema (slight) Neurologic/Psychiatric: alert, normal mood/affect Skin: warm/dry (Cata Doyle, PA-C) Laboratory Results Last 24 Hours Test 07/02/18 16:47 07/02/18 16:55 07/02/18 20:11 07/02/18 22:07 Bedside Glucose 120 mg/dl 96 mg/dl Troponin I 0.050 ng/ml 0.044 ng/ml Pro-B-Type Natriuretic Peptide 5055 pg/ml Test 07/03/18 07:18 07/03/18 07:23 Bedside Glucose 99 mg/dl White Blood Count 5.92 K/uL Red Blood Count 3.40 M/uL Hemoglobin 10.7 g/dL Hematocrit 33.3 % Mean Corpuscular Volume 97.9 fL Mean Corpuscular Hemoglobin 31.5 pg Mean Corpuscular Hemoglobin Concent 32.1 g/dl RDW Standard Deviation 53.0 fL RDW Coefficient of Variation 14.9 % Platelet Count 215 K/uL Mean Platelet Volume 11.8 fL Prothrombin Time 40.0 SECONDS Prothromb Time International Ratio 3.9 Sodium Level 140 mmol/L Potassium Level 4.1 mmol/L Chloride Level 103 mmol/L Carbon Dioxide Level 30 mmol/L Anion Gap 7.0 mmol/L Blood Urea Nitrogen 55 mg/dl Creatinine 1.68 mg/dl Est Creatinine Clear Calc Drug Dose 23.3 ml/min Estimated GFR () 34.6 Estimated GFR (Non- 29.8 BUN/Creatinine Ratio 32.4 Random Glucose 87 mg/dl Calcium Level 9.3 mg/dl Magnesium Level 2.2 mg/dl (Cata Doyle PA-C) Assessment and Plan CHEST PAIN/LEFT SHOULDER PAIN R/O ACS. Risk factors: HTN, hyperlipidemia, DM Suspect musculoskeletal etiology. Troponin 0.04, 0.05, 0.04 - hx chronic elevated likely from CKD Pt denied any thing for pain while in hospital. She reports no further CP or L shoulder pain L shoulder xray: negative for fracture or dislocation EKG this morning sinus rhythm, rate 60, RBBB, L anterior fascicular block -continue statin, metoprolol, ASA -Nitro prn CP. Has not needed any nitro -Pt denied Lidocaine patch -PT/OT eval -cardiology consult recommendations: conservative cardiac medical management at this time. BIBASILAR OPACITIES Possible pneumonia vs atelectasis mild intermittent non-productive cough past several days. Afebrile. No leukocytosis. 93-94% on chronic 3L oxygen 07/02/18 CXR: 1. Bibasilar opacities, left greater the right, which are slightly increased since prior exam. This may reflect pneumonia or atelectasis. 2. Moderate cardiomegaly. No change in marked dilatation of the central pulmonary arteries consistent with pulmonary hypertension. 3. Suspected small left pleural effusion. 4. Pulmonary vascular congestion without overt pulmonary edema. -doxycycline -incentive spirometry CHRONIC RESPIRATORY FAILURE ON CHRONIC OXYGEN - 3L NC COPD CHRONIC DIASTOLIC CHF CHRONIC COR PULMONALE/CHRONIC PULMONARY HYPERTENSION No increased SOB. Appears euvolemic at this time. O2 sats stable on 3L oxygen -continue 3L oxygen NC -continue torsemide -continue home inhalers -nebulizer prn sob/wheezing CKD IV Cr: 1.68 (~baseline) -monitor renal functions -avoid nephrotoxic agents when possible HTN Stable -continue metoprolol H/O PAROXYSMAL ATRIAL FIBRILLATION/A FLUTTER S/P ABLATION INR: 3.9 today -hold coumadin tonight, as pt placed on antibiotics -follow INR DM II Diet controlled HA1c: 6.0 on 06/01/18 -DM diet -BSG ACHS -Novolog sliding scale per protocol HYPOTHYROIDISM TSH: 3.3 -continue levothyroxine GERD -continue PPI HLD -continue statin JOSIAS -Bipap HS per home settings DVT Prophylaxis -On coumadin Admit Tele Anticipate discharge back to [facility] Full Code as per discussion with pt Residing at [facility] currently Pt was seen with Dr Alberto. See addendum (Cata Doyle PA-C) ATTENDING ADDENDUM: Patient seen and examined care coordinated with Anum Doyle PA-C Labs and images reviewed This is a 72-year-old female with complex past medical history of coronary artery disease, CHF with diastolic dysfunction, chronic respiratory failure on home O2 secondary to COPD Was sent from [facility] yesterday for left-sided chest heaviness, radiation to left shoulder and neck Her symptoms is mostly reproducible suggestive of musculoskeletal discomfort Denies of any pain since this morning No complaint of shortness of breath, orthopnea Appreciate cardiology eval No evidence of any acute coronary event or decompensation of CHF Recommend continue medical management PNEUMONIA Patient had intermittent nonproductive cough for past several days No fever or chills, no leukocytosis Chest x-ray shows bibasilar opacities, left greater than the right which is slightly increased since prior exam, this may reflect pneumonia or atelectasis Ordered empirically with p.o. doxycycline Complete 5 more days course CHRONIC RESPIRATORY FAILURE ON CHRONIC OXYGEN 3 L VIA NASAL CANNULA/DUE TO COPD Stable, respiratory status at baseline, no evidence of decompensate CKD stage III-IV Renal function at baseline Status: Full code Stable to return back to [facility] today (Cony Alberto M.D.)
[2018-07-03 15:44] VITALS: BP 105/61; PULSE 71; TEMP 36.7; O2SAT 94
--- NOTE | 2018-07-03 16:32 | Discharge Instructions ---
Discharge Instructions Date of Service Jul 03, 2018. Admission Reason for Admission: Chest Pain, L Shoulder Pain Discharge Discharge Diagnosis / Problem: Musculoskeletal chest pain, L Shoulder Pain Discharge Goals Goal(s): Decrease discomfort, Improve function, Increase independence, Improve disease control, Therapeutic intervention Activity Recommendations Activity Level: Assistance Required Therapies: Physical Therapy, Occupational Therapy . Additional Information Patient informed of condition: Yes Advance Directives: No DNR: No Level of Care: Skilled Communicable Disease: No Prognosis: Stable Watson Catheter: No Instructions / Follow-Up Instructions / Follow-Up FOLLOW UP WITH PHYSICIANS AT [facility] Current Hospital Diet Patient's current hospital diet: Diabetes Type 2 Diet, Low Sodium Diet (2gm Na) Discharge Diet Recommended Diet: Low Sodium Diet (2gm Na), Diabetes Type 2 Diet Pending Studies Studies pending at discharge: no Laboratory Results Hemoglobin A1c Test 06/01/18 04:13 Range/Units Estimated Average Glucose 126 mg/dl Hemoglobin A1c 6.0 H 4.5-5.6 % Medical Emergencies . Who to Call and When: Medical Emergencies: If at any time you feel your situation is an emergency, please call 911 immediately. . Non-Emergent Contact Non-Emergency issues call your: Primary Care Provider . . "Provider Documentation" section prepared by Cony Alberto. . Core Measure Problem Core Measures: None
[2018-07-03 16:34] VITALS: BP 105/61; PULSE 71; TEMP 36.7; O2SAT 94
[2018-07-03] MEDS ORDERED: DXY100 PO (16:45)
--- NOTE | 2018-07-03 16:58 | Discharge Summary ---
Discharge Summary Date of Service Jul 03, 2018. Discharge Summary Admission Date: Jul 02, 2018 at 14:08 Discharge Date: Jul 03, 2018 Discharge Disposition: custodial facility ([facility]) Principal Diagnosis: MUSCULOSKELETAL CHEST PAIN, L SHOULDER PAIN Procedures: PORTABLE CHEST X-RAY IMPRESSION: 1. Bibasilar opacities, left greater the right, which are slightly increased since prior exam. This may reflect pneumonia or atelectasis. Radiographic follow-up to ensure resolution is recommended. 2. Moderate cardiomegaly. No change in marked dilatation of the central pulmonary arteries consistent with pulmonary hypertension. 3. Suspected small left pleural effusion. 4. Pulmonary vascular congestion without overt pulmonary edema. X-RAY OF LEFT SHOULDER IMPRESSION: There is no radiographic evidence of left shoulder fracture or dislocation. Consultations: [facility] Medication Reconciliation New Medications: Doxycycline Hyclate (Doxycycline Hyclate) 100 Mg Cap 100 MG PO BID for 5 Days, #10 CAP Continued Medications: Acetaminophen Tab (Tylenol) 325 Mg Tab 650 MG PO Q6 PRN for Pain or Fever Albuterol Sulf (Proventil 0.083% 2.5MG/3ML) 2.5 Mg/3 Ml Nebu 2.5 MG NEB Q6 PRN for Shortness of Breath Albuterol Sulfate (Proventil Hfa) 108 Mcg/Act Aer 2 PUFF INH Q6 PRN for Shortness of Breath Alum & Mag Hydrox-Simethicone (Mylanta Maximum Strength 400-400-40 mg/5Ml) 1 Ciara Ciara 30 ML PO Q4 PRN for HEART BURN Bisacodyl (Dulcolax) 10 Mg Sup 1 SUPP IA UD PER BOWEL PROTOCAL Brinzolamide Oph (Azopt Oph) 1 % Ciara 1 DROP OPB BID Donepezil HCl (Donepezil HCl) 10 Mg Tab 10 MG PO HS Fluticasone Prop/Salmeterol (Advair Diskus 250/50 60 Dose) 1 Ea Aerp 1 PUFF INH BID Fluticasone Propionate (Nasal) (Flonase Allergy Relief) 50 Mcg/Act Spr 1 SPRAY PAULIE BID Home O2 Therapy (Oxygen) Gas 3 LITERS NA CONTINOUS Levothyroxine Sodium (Levothyroxine Sodium) 75 Mcg Tab 75 MCG PO QAM Magnesium Hydroxide (Milk Of Magnesia) 30 Ml Susp 30 ML PO PRN UD Menthol (Mouth-Throat) (Cepacol Sore Throat) 5.4 Mg Keke 1 KEKE PO Q2H PRN for Cough Metoprolol Succinate (Metoprolol Succinate ER) 25 Mg Tabcr 12.5 MG PO QAM Nitroglycerin (Nitrostat) 0.4 Mg Sub 0.4 MG UT PRN Oxybutynin Chloride (Oxybutynin Chloride Er) 5 Mg Tab 5 MG PO QAM Pantoprazole (Pantoprazole Sodium) 40 Mg Tab 40 MG PO QAM Polyethylene Glycol 3350 (Miralax) 1 Pow Pow 17 GM PO DAILY PRN for Constipation Pravastatin Sodium (Pravastatin Sodium) 80 Mg Tab 80 MG PO QPM Sennosides (Senokot) 8.6 Mg Tab 17.2 MG PO QAM Sodium Phosphate/Biphosphate (Fleet Enema) Anastacia 1 EA IA UD PER BOWEL PROTOCAL Torsemide (Demadex) 20 Mg Tab 3 TAB PO QAM Umeclidinium [place] (Incruse Ellipta) 62.5 Mcg/Inh Inh 1 INHA PO QAM Warfarin Sod (Coumadin) 3 Mg Tab 1 TAB PO DAILY@1600 Admission Information HPI (per Admitting provider): Pt is 72 y/o F with PMH HTN, HLD, DM 2-diet controlled, chronic diastolic CHF, chronic pulmonary hypertension, chronic cor pulmonale, JOSIAS, COPD, chronic respiratory failure on 3 L NC oxygen, paroxysmal atrial fibrillation/atrial flutter, iron deficiency anemia presented to ER with complaint of chest pain and left shoulder pain x 1 day. Patient has been doing physical therapy and had physical therapy yesterday working arms and legs. States after returning from physical therapy developed pain to left shoulder, left upper arm, left- sided chest. Pain is aggravated with range of motion of left arm and laying on left shoulder. Reports when gets pain has nausea and feels hot. She was given nitroglycerin at [facility] without relief and sent to ER today. Patient states the past couple of days with nonproductive slight intermittent cough, which she relates is secondary to being in air conditioning. History hospitalization 05/31/18-06/17/18 for acute on chronic respiratory failure requiring intubation, and YAZMIN. Denies fever, V/D/C, FARIA, dizziness, syncope, vision changes, neck pain, increased SOB, orthopnea, palpitations, hemoptysis, sore throat, choking, otalgia, rhinorrhea, abdominal pain, paresthesias, extremity weakness, extremity edema, rashes, urinary symptoms, weight changes. Physical Exam (per Admitting): General Appearance: WD/WN, no apparent distress Head: normocephalic, atraumatic Eyes: normal inspection, sclerae normal ENT: hearing grossly normal, pharynx normal, + pertinent finding (mucous membranes moist) Neck: supple, trachea midline Respiratory/Chest: + decreased breath sounds (throughout, no rales, rhonchi , or wheezing noted) Cardiovascular: regular rate, rhythm, normal peripheral pulses Abdomen/GI: normal bowel sounds, non tender, soft Back: no CVA tenderness Extremities/Musculoskelatal: no calf tenderness, normal capillary refill, no pedal edema, + pertinent finding (Left anterior and posterior shoulder with tenderness to palpation, tenderness reproduced with abduction, internal and external rotation L shoulder. Strength bilateral upper extremities equal) Neurologic/Psych: alert, normal mood/affect, oriented x 3 Skin: warm/dry Hospital Course Pt evaluation today including: conversation w/ patient, physical exam, chart review, lab review, review of studies, review of inpatient medication list Pt seen and examined. Sitting up in bed. Reports was blowing nose this morning then became nauseated and vomited "white stuff" in tissue. States since has had no further nausea or vomiting. Denies abdominal pain. No BM yet today. States still with occasional cough. denies any further L shoulder pain or CP. Denies any increased SOB, feels she is at her baseline. Denies fever/chills, diaphoresis,FARIA, dizziness, neck pain, palpitations, hemoptysis, sore throat, choking, urinary symptoms. (Cata Doyle ., PA-C) Physical exam General Appearance: WD/WN, no apparent distress, + pertinent finding (chronic ill appearance) Eyes: sclerae normal ENT: hearing grossly normal, pharynx normal, + pertinent finding (mucous membranes moist) Neck: supple, trachea midline Respiratory/Chest: no respiratory distress, no accessory muscle use, + decreased breath sounds Cardiovascular: regular rate, rhythm, + systolic murmur Abdomen: normal bowel sounds, non tender, soft Extremities: non-tender, + pedal edema (slight) Neurologic/Psychiatric: alert, normal mood/affect Skin: warm/dry Last 8 Hrs Date Time Temp Pulse Resp B/P (MAP) Pulse Ox O2 Delivery O2 Flow Rate FiO2 07/03/18 15:57 Nasal Cannula 3.0 07/03/18 15:44 36.7 71 20 105/61 (76) 94 Nasal Cannula 2.0 07/03/18 11:10 36.4 85 18 111/62 (78) 93 Nasal Cannula 3.0 CHEST PAIN/LEFT SHOULDER PAIN R/O ACS. Risk factors: HTN, hyperlipidemia, DM Suspect musculoskeletal etiology. Troponin 0.04, 0.05, 0.04 - hx chronic elevated likely from CKD Pt denied any thing for pain while in hospital. She reports no further CP or L shoulder pain L shoulder xray: negative for fracture or dislocation EKG this morning sinus rhythm, rate 60, RBBB, L anterior fascicular block -continue statin, metoprolol, ASA -Nitro prn CP. Has not needed any nitro -Pt denied Lidocaine patch -PT/OT eval -cardiology consult recommendations: conservative cardiac medical management at this time. BIBASILAR OPACITIES Possible pneumonia vs atelectasis mild intermittent non-productive cough past several days. Afebrile. No leukocytosis. 93-94% on chronic 3L oxygen 07/02/18 CXR: 1. Bibasilar opacities, left greater the right, which are slightly increased since prior exam. This may reflect pneumonia or atelectasis. 2. Moderate cardiomegaly. No change in marked dilatation of the central pulmonary arteries consistent with pulmonary hypertension. 3. Suspected small left pleural effusion. 4. Pulmonary vascular congestion without overt pulmonary edema. -doxycycline -incentive spirometry CHRONIC RESPIRATORY FAILURE ON CHRONIC OXYGEN - 3L NC COPD CHRONIC DIASTOLIC CHF CHRONIC COR PULMONALE/CHRONIC PULMONARY HYPERTENSION No increased SOB. Appears euvolemic at this time. O2 sats stable on 3L oxygen -continue 3L oxygen NC -continue torsemide -continue home inhalers -nebulizer prn sob/wheezing CKD IV Cr: 1.68 (~baseline) -monitor renal functions -avoid nephrotoxic agents when possible HTN Stable -continue metoprolol H/O PAROXYSMAL ATRIAL FIBRILLATION/A FLUTTER S/P ABLATION INR: 3.9 today -hold coumadin tonight, as pt placed on antibiotics -follow INR DM II Diet controlled HA1c: 6.0 on 06/01/18 -DM diet -BSG ACHS -Novolog sliding scale per protocol HYPOTHYROIDISM TSH: 3.3 -continue levothyroxine GERD -continue PPI HLD -continue statin JOSIAS -Bipap HS per home settings DVT Prophylaxis -On coumadin Admit Tele Anticipate discharge back to [facility] Full Code as per discussion with pt Residing at [facility] currently Pt was seen with Dr Alberto. See addendum (Cata Doyle PA-C) ATTENDING ADDENDUM: Patient seen and examined care coordinated with Anum Doyle PA-C Labs and images reviewed This is a 72-year-old female with complex past medical history of coronary artery disease, CHF with diastolic dysfunction, chronic respiratory failure on home O2 secondary to COPD Was sent from [facility] yesterday for left-sided chest heaviness, radiation to left shoulder and neck Her symptoms is mostly reproducible suggestive of musculoskeletal discomfort Denies of any pain since this morning No complaint of shortness of breath, orthopnea Appreciate cardiology eval No evidence of any acute coronary event or decompensation of CHF Recommend continue medical management PNEUMONIA Patient had intermittent nonproductive cough for past several days No fever or chills, no leukocytosis Chest x-ray shows bibasilar opacities, left greater than the right which is slightly increased since prior exam, this may reflect pneumonia or atelectasis Ordered empirically with p.o. doxycycline Complete 5 more days course CHRONIC RESPIRATORY FAILURE ON CHRONIC OXYGEN 3 L VIA NASAL CANNULA/DUE TO COPD Stable, respiratory status at baseline, no evidence of decompensate CKD stage III-IV Renal function at baseline Status: Full code Stable to return back to [facility] today (Cony Alberto M.D.) Discharge Instructions Discharge Instructions Date of Service Jul 03, 2018. Admission Reason for Admission: Chest Pain, L Shoulder Pain Discharge Discharge Diagnosis / Problem: Musculoskeletal chest pain, L Shoulder Pain Discharge Goals Goal(s): Decrease discomfort, Improve function, Increase independence, Improve disease control, Therapeutic intervention Activity Recommendations Activity Level: Assistance Required Therapies: Physical Therapy, Occupational Therapy . Additional Information Patient informed of condition: Yes Advance Directives: No DNR: No Level of Care: Skilled Communicable Disease: No Prognosis: Stable Watson Catheter: No Instructions / Follow-Up Instructions / Follow-Up FOLLOW UP WITH PHYSICIANS AT [facility] Current Hospital Diet Patient's current hospital diet: Diabetes Type 2 Diet, Low Sodium Diet (2gm Na) Discharge Diet Recommended Diet: Low Sodium Diet (2gm Na), Diabetes Type 2 Diet Pending Studies Studies pending at discharge: no Laboratory Results Hemoglobin A1c Test 06/01/18 04:13 Range/Units Estimated Average Glucose 126 mg/dl Hemoglobin A1c 6.0 H 4.5-5.6 % Medical Emergencies . Who to Call and When: Medical Emergencies: If at any time you feel your situation is an emergency, please call 911 immediately. . Non-Emergent Contact Non-Emergency issues call your: Primary Care Provider . . "Provider Documentation" section prepared by Cony Alberto. . Core Measure Problem Core Measures: None
== END 2018-07-03 17:43 ==
LOC: EDBD 09:45 → C.EDA 09:46 → ENRESERV 13:30 → C.2T 14:08
PROVIDERS: ADMIT Internal Medicine; ATTEND Hospitalist
DX: R07.9 Chest pain, unspecified (principal); M25.512 Pain in left shoulder; R94.31 Abnormal electrocardiogram [ECG] [EKG]; J18.9 Pneumonia, unspecified organism; J96.10 Chronic respiratory failure, unspecified whether with hypoxia or hypercapnia; I25.10 Atherosclerotic heart disease of native coronary artery without angina pectoris; I50.32 Chronic diastolic (congestive) heart failure; I48.0 Paroxysmal atrial fibrillation; I49.5 Sick sinus syndrome; I27.20 Pulmonary hypertension, unspecified; N18.4 Chronic kidney disease, stage 4 (severe); I27.81 Cor pulmonale (chronic); E78.5 Hyperlipidemia, unspecified; K21.9 Gastro-esophageal reflux disease without esophagitis; G47.33 Obstructive sleep apnea (adult) (pediatric); E03.9 Hypothyroidism, unspecified; E11.9 Type 2 diabetes mellitus without complications; Z90.49 Acquired absence of other specified parts of digestive tract; Z87.891 Personal history of nicotine dependence; Z79.52 Long term (current) use of systemic steroids; Z79.01 Long term (current) use of anticoagulants; Z95.0 Presence of cardiac pacemaker; Z99.81 Dependence on supplemental oxygen; Z88.0 Allergy status to penicillin; Z88.2 Allergy status to sulfonamides; Z91.018 Allergy to other foods; Z90.5 Acquired absence of kidney

== ENCOUNTER 2020-01-19 12:10 | Inpatient (IN) ==
[2020-01-19] MEDS ORDERED: fentaNYL citrate 100 MCG/2 ML VIAL IV PRN (12:21)
[2020-01-19] MEDS ORDERED: ONDANSETRON INJ 2 MG/ML 2 ML VIAL IV STA (12:21)
[2020-01-19] MEDS ORDERED: SODIUM CHLORIDE 0.9% 500 ML IV SCH (12:30)
--- NOTE | 2020-01-19 12:58 | Emergency Department Note ---
Entered by Justin Amin acting as a scribe for Marv Seay DO History of Present Illness General Chief complaint: GI Assessment Stated complaint: abd pain Source: patient History of Present Illness Onset (ago): week(s) (a few weeks ago) Location: abdomen Pain Consistency: + constant Current Pain Intensity: 8 Associated symptoms: + other (Positive for nausea and vomiting. Negative for CP, SOB, back pain, and black/bloody stools.) The patient is a 74 year old female who presents to the emergency department with complaints of constant abdominal pain beginning a few weeks ago. The patient also complains of nausea and vomiting, but she denies any CP, SOB, back pain, and black/bloody stools. She rates her pain as an 8/10. She states that she has a history of gallstones. Home Medications Home Medications Medication Instructions Recorded Confirmed Type acetaminophen 650 mg PO BID 01/19/20 01/19/20 History acetaminophen 650 mg PO Q6H PRN 01/19/20 01/19/20 History albuterol sulfate 2 puff INHALATION Q6H PRN 01/19/20 01/19/20 History alum-mag hydroxide-simeth [Mylanta 30 ml PO Q4H PRN 01/19/20 01/19/20 History Maximum Strength] bisacodyl [Dulcolax (bisacodyl)] 10 mg ND DAILY PRN 01/19/20 01/19/20 History brinzolamide 1 drp OPHTHALMIC (EYE) BID 01/19/20 01/19/20 History cinacalcet [Sensipar] 30 mg PO 3XWK 01/19/20 01/19/20 History donepezil 10 mg PO DAILY 01/19/20 01/19/20 History fluticasone propion-salmeterol 1 inh INHALATION Q12H 01/19/20 01/19/20 History [Advair Diskus] fluticasone propionate [Flonase 1 spray INTRANASAL BID 01/19/20 01/19/20 History Allergy Relief] folic acid 1 mg PO DAILY 01/19/20 01/19/20 History glycerin (adult) [Fleet Glycerin 1 supp ND DAILY PRN 01/19/20 01/19/20 History (Adult)] hydrocortisone acetate [Anusol-HC] 25 mg ND BID 01/19/20 01/19/20 History levothyroxine 50 mcg PO DAILY 01/19/20 01/19/20 History loratadine 10 mg PO DAILY 01/19/20 01/19/20 History magnesium hydroxide [Milk of 30 ml PO DAILY PRN 01/19/20 01/19/20 History Magnesia] methyl salicylate-menthol [Bengay 1 applic TOPICAL QID 01/19/20 01/19/20 History Greaseless] metoprolol succinate 12.5 mg PO DAILY 01/19/20 01/19/20 History nitroglycerin 0.4 mg SUBLINGUAL UD PRN 01/19/20 01/19/20 History omeprazole 20 mg PO DAILY 01/19/20 01/19/20 History oxybutynin chloride 5 mg PO DAILY 01/19/20 01/19/20 History polyethylene glycol 3350 [GlycoLax] 17 g PO DAILY PRN 01/19/20 01/19/20 History pravastatin 80 mg PO DAILY 01/19/20 01/19/20 History sennosides-docusate sodium 2 tab-cap PO BID 01/19/20 01/19/20 History [Senokot-S] torsemide 40 mg PO DAILY 01/19/20 01/19/20 History umeclidinium [Incruse Ellipta] 1 inh INHALATION DAILY 01/19/20 01/19/20 History warfarin [Coumadin] 2 mg PO DAILY 01/19/20 01/19/20 History Allergies Allergy/AdvReac Type Severity Reaction Status Date / Time levofloxacin Allergy Intermediate HIVES Verified 01/19/20 14:23 Quinolones Allergy Intermediate HIVES Verified 01/19/20 14:23 ranitidine Allergy Intermediate HIVES Verified 01/19/20 14:23 sulfamethoxazole Allergy Intermediate HIVES Verified 01/19/20 14:23 trimethoprim Allergy Intermediate HIVES Verified 01/19/20 14:23 clarithromycin Allergy Mild HIVES, CAN Verified 01/19/20 14:23 TAKE ZITHROMAX W/O PROB amoxicillin Allergy Unknown HIVES Verified 01/19/20 14:23 omeprazole Allergy Unknown HAS HAD Verified 01/19/20 14:23 PROTONIX tomato AdvReac Unknown GI SYMPTOMS Verified 01/19/20 14:23 Pork AdvReac Unknown GI SYMPTOMS Uncoded 01/19/20 14:23 Past Med/Surg History Medical History Afib (Chronic) "s/p ablation" Anemia (Chronic) CKD (chronic kidney disease), stage IV (Chronic) COPD (chronic obstructive pulmonary disease) (Chronic) Gallstones GERD (gastroesophageal reflux disease) (Chronic) H/O unilateral nephrectomy (Chronic) "right" Heart disease (Chronic) "mild CAD cath 2007" HTN (hypertension) (Chronic) Hypothyroid (Chronic) Surgical History H/O thyroidectomy (Chronic) History of appendectomy (Chronic) S/P MVR (mitral valve repair) (Chronic) Family History Father Heart disease Social History Preferred Language: Icelandic Communication Ability: Effective Loftsman/Woman Required: No Beliefs That Will Affect Care: None Current Living Situation: Personal Care Facility Current Living Situation Comment: [facility] Feels Safe at Home: Yes Safety Concerns: Feels Safe At This Time Smoking Status: Former smoker Hx Alcohol Use: No Hx Substance Use: No Review of Systems See HPI for pertinent positives & negatives. and A total of 10 systems reviewed and were otherwise negative Physical Exam Vital Signs Vital Signs - 24 hr 01/19/20 12:16 01/19/20 12:45 01/19/20 13:13 Temperature 36.6 C Temperature Source Oral Pulse Rate 87 Pulse Rate [Apical] 73 Respiratory Rate 18 16 Respiratory Effort / Characteristics Non-Labored Respiratory Depth Blood Pressure 143/75 H Blood Pressure [Right Arm] 142/81 H Blood Pressure Mean 97 Blood Pressure Mean [Right Arm] 101 Pulse Oximetry 97 94 Oxygen Delivery Method Nasal Cannula Nasal Cannula Oxygen Flow Rate 3 3 Sepsis Recent Fever Within 48 Hours No Sepsis New/Unexplained Change in Mental Status No Sepsis Action Taken by Nursing No Action Required 01/19/20 13:44 01/19/20 15:03 01/19/20 15:37 Temperature Temperature Source Pulse Rate Pulse Rate [Apical] 69 67 81 Respiratory Rate 16 18 18 Respiratory Effort / Characteristics Non-Labored Respiratory Depth Normal Blood Pressure Blood Pressure [Right Arm] 134/62 124/83 130/93 Blood Pressure Mean Blood Pressure Mean [Right Arm] 86 96 105 Pulse Oximetry 95 100 99 Oxygen Delivery Method Nasal Cannula Nasal Cannula Nasal Cannula Oxygen Flow Rate 3 3 3 Sepsis Recent Fever Within 48 Hours Sepsis New/Unexplained Change in Mental Status Sepsis Action Taken by Nursing 01/19/20 16:16 Temperature Temperature Source Pulse Rate Pulse Rate [Apical] 73 Respiratory Rate 18 Respiratory Effort / Characteristics Respiratory Depth Blood Pressure Blood Pressure [Right Arm] 133/96 Blood Pressure Mean Blood Pressure Mean [Right Arm] 108 Pulse Oximetry 99 Oxygen Delivery Method Nasal Cannula Oxygen Flow Rate 3 Sepsis Recent Fever Within 48 Hours Sepsis New/Unexplained Change in Mental Status Sepsis Action Taken by Nursing GENERAL: The patient is awake and alert. She is very anxious appearing and appears to be uncomfortable. EYES: The conjunctivae are clear. The pupils are round and reactive. EARS, NOSE, MOUTH AND THROAT: The nose is without any evidence of any deformity. Mucous membranes are moist. Tongue is midline. NECK: The neck is nontender and supple. RESPIRATORY: Normal respiratory effort is noted there is no evidence of wheezing rhonchi or rales CARDIOVASCULAR: Regular rate and rhythm noted there no murmurs rubs or gallops normal S1 normal S2. GASTROINTESTINAL: The abdomen is moderately distended and diffusely tender. There is guarding in the upper quadrants bilaterally. MUSCULOSKELETAL/EXTREMITIES: There is no evidence of gross deformity full range of motion is noted in the hips and shoulders. SKIN: There is no obvious evidence of any rash. Pedal edema was noted b ilaterally. NEUROLOGIC: Patient is awake alert and oriented x3. Course Course 1218: The patient was evaluated in room A11. A complete history and physical exam was performed. 1413: I reevaluated and updated the patient. 1554: Upon reevaluation, the patient is stable. I discussed the findings and the treatment plan with the patient. She expresses agreement and understanding. I spoke with Dr. Pritchard of the [facility] [place] [facility]. The patient will be evaluated for further management. Consultations Consultation #1: I reviewed the patient's case with Dr. Pritchard - Hospitalist, [facility]. He will evaluate the patient for further management. Time: 15:54 Administered Medications Lactated Ringer's (Lr) 1,000 mls @ 80 mls/hr IV .[id number] ESTHER Stop: 02/18/20 17:55 Last Admin: 01/19/20 18:45 Dose: 80 mls/hr Documented by: [id number] Discontinued Medications Fentanyl Citrate (Fentanyl Citrate) 50 mcg IV Q15M PRN PRN Reason: Pain Stop: 02/02/20 12:20 Last Admin: 01/19/20 13:10 Dose: 50 mcg Documented by: [id number] Sodium Chloride (Nss) 500 mls @ 999 mls/hr IV .Q31M ESTHER Stop: 01/19/20 13:00 Last Infusion: 01/19/20 13:45 Dose: 0 mls/hr Documented by: [id number] Admin: 01/19/20 13:10 Dose: 999 mls/hr Documented by: [id number] Cefoxitin Sodium (Mefoxin) 2,000 mg in 60 mls @ 100 mls/hr IV NOW STA Stop: 01/19/20 16:13 Last Infusion: 01/19/20 16:45 Dose: 0 mls/hr Documented by: [id number] Admin: 01/19/20 16:15 Dose: 100 mls/hr Documented by: [id number] Ondansetron HCl (Zofran) 4 mg IV NOW STA Stop: 01/19/20 12:22 Last Admin: 01/19/20 13:10 Dose: 4 mg Documented by: [id number] Medical Decision Making Differential Diagnosis Differential diagnoses includes but is not limited to gastritis, peptic ulcer disease, GERD, gallbladder disease, pancreatitis, small bowel obstruction, acute coronary syndrome, pericarditis, ischemic bowel, irritable bowel disease, irritable bowel syndrome, appendicitis, diverticulitis, malignancy, hernia, urinary tract infection, torsion, perforation, trauma, infectious. Medical Records Attestation: I reviewed the patient's medical records. Home Medications Current Medication List: was personally reviewed by me Laboratory Data Attestation: I reviewed the patient's lab results. Result diagrams: 01/19/20 12:45 01/19/20 12:45 Lab Results 01/19/20 01/19/20 01/19/20 Range/Units 12:45 12:45 12:45 WBC (4.8-10.8) K/uL RBC (4.2-5.4) M/uL Hgb (12.0-16.0) g/dL Hct (37-47) % MCV (80-100) fL MCH (25-34) pg MCHC (32-36) g/dL RDW Std Deviation (36.4-46.3) fL RDW Coeff of Lc (11.5-14.5) % Plt Count (130-400) K/uL MPV (7.4-10.4) fL Immature Gran % (Auto) % Neut % (Auto) % Lymph % (Auto) % Taylor % (Auto) % Eos % (Auto) % Baso % (Auto) % Immature Gran # (Auto) (0.00-0.02) K/uL Neut # (Auto) (1.4-6.5) K/uL Lymph # (Auto) (1.2-3.4) K/uL Taylor # (Auto) (0.11-0.59) K/uL Eos # (Auto) (0-0.5) K/uL Baso # (Auto) (0-0.2) K/uL ESR 67 H (0-21) mm/hr PT 41.0 H (9.0-12.0) Seconds INR 4.5 H (0.9-1.1) APTT 51.7 H* (21.0-31.0) Seconds PTT Ratio 1.9 Sodium 136 (136-145) mmol/L Potassium 3.3 L (3.5-5.1) mmol/L Chloride 98 (98-107) mmol/L Carbon Dioxide 26 (21-32) mmol/L Anion Gap 13.0 H (3-11) BUN 132 H (7-18) mg/dl Creatinine 2.92 H (0.6-1.2) mg/dl POC Creatinine (0.6-1.3) mg/dl Est Cr Clr Drug Dosing 13.6 ml/min Est GFR ( Amer) 17.5 Est GFR (Non-Af Amer) 15.1 BUN/Creatinine Ratio 45.1 H (10-20) Glucose 102 H (70-99) mg/dl Calcium 7.3 L (8.5-10.1) mg/dl Total Bilirubin 0.7 (0.2-1) mg/dl AST 39 H (15-37) U/L ALT 30 (12-78) U/L Alkaline Phosphatase 71 (45-117) U/L Troponin I 0.145 H* (0-0.045) ng/ml C-Reactive Protein 0.57 H (0-0.29) mg/dl Total Protein 7.4 (6.4-8.2) gm/dl Albumin 3.3 L (3.4-5.0) gm/dl Globulin 4.1 H (2.5-4.0) gm/dl Albumin/Globulin Ratio 0.8 L (0.9-2) Lipase 739 H (73-393) U/L Specimen Hemolysis Urine Color Urine Appearance (Clear) Urine pH (4.5-7.5) Ur Specific Flushing (1.000-1.030) Urine Protein (Negative) Urine Glucose (UA) (Negative) Urine Ketones (Negative) Urine Blood (Negative) Urine Nitrite (Negative) Urine Bilirubin (Negative) Urine Urobilinogen (Negative) Ur Leukocyte Esterase (Negative) 01/19/20 01/19/20 01/19/20 Range/Units 12:45 12:54 15:35 WBC 6.83 (4.8-10.8) K/uL RBC 3.76 L (4.2-5.4) M/uL Hgb 12.8 (12.0-16.0) g/dL Hct 37.9 (37-47) % MCV 100.8 H (80-100) fL MCH 34.0 (25-34) pg MCHC 33.8 (32-36) g/dL RDW Std Deviation 51.4 H (36.4-46.3) fL RDW Coeff of Lc 13.9 (11.5-14.5) % Plt Count 199 (130-400) K/uL MPV 12.8 H (7.4-10.4) fL Immature Gran % (Auto) 0.1 % Neut % (Auto) 51.7 % Lymph % (Auto) 35.6 % Taylor % (Auto) 10.7 % Eos % (Auto) 0.9 % Baso % (Auto) 1.0 % Immature Gran # (Auto) 0.01 (0.00-0.02) K/uL Neut # (Auto) 3.53 (1.4-6.5) K/uL Lymph # (Auto) 2.43 (1.2-3.4) K/uL Taylor # (Auto) 0.73 H (0.11-0.59) K/uL Eos # (Auto) 0.06 (0-0.5) K/uL Baso # (Auto) 0.07 (0-0.2) K/uL ESR (0-21) mm/hr PT (9.0-12.0) Seconds INR (0.9-1.1) APTT (21.0-31.0) Seconds PTT Ratio Sodium (136-145) mmol/L Potassium (3.5-5.1) mmol/L Chloride (98-107) mmol/L Carbon Dioxide (21-32) mmol/L Anion Gap (3-11) BUN (7-18) mg/dl Creatinine (0.6-1.2) mg/dl POC Creatinine 3.0 H (0.6-1.3) mg/dl Est Cr Clr Drug Dosing ml/min Est GFR ( Amer) Est GFR (Non-Af Amer) BUN/Creatinine Ratio (10-20) Glucose (70-99) mg/dl Calcium (8.5-10.1) mg/dl Total Bilirubin (0.2-1) mg/dl AST (15-37) U/L ALT (12-78) U/L Alkaline Phosphatase (45-117) U/L Troponin I (0-0.045) ng/ml C-Reactive Protein (0-0.29) mg/dl Total Protein (6.4-8.2) gm/dl Albumin (3.4-5.0) gm/dl Globulin (2.5-4.0) gm/dl Albumin/Globulin Ratio (0.9-2) Lipase (73-393) U/L Specimen Hemolysis Urine Color Yellow Urine Appearance Clear (Clear) Urine pH 5.0 (4.5-7.5) Ur Specific Flushing 1.013 (1.000-1.030) Urine Protein Negative (Negative) Urine Glucose (UA) Negative (Negative) Urine Ketones Negative (Negative) Urine Blood Negative (Negative) Urine Nitrite Negative (Negative) Urine Bilirubin Negative (Negative) Urine Urobilinogen Negative (Negative) Ur Leukocyte Esterase Negative (Negative) Imaging Data Radiologist's Impression: Radiology results as stated below per my review and the radiologist's interpretation: XR chest 1V portable FINDINGS: The heart is mildly enlarged. No change in the pulmonary trunk enlargement. No pleural effusions. No pneumothorax. Linear density at the left lung base favor subsegmental atelectasis or scarring. Otherwise, the lungs are clear. No evidence for pulmonary edema. IMPRESSION: 1. Mild cardiomegaly. 2. Pulmonary arterial enlargement consistent with pulmonary hypertension. This remains unchanged. ACT 112: Negative or not required by law. Electronically signed by: Rishi Shook M.D. 01/19/2020 1:[address] OF THE ABDOMEN AND PELVIS WITHOUT CONTRAST FINDINGS: Imaged portions of the lower chest demonstrate enlargement of the pulmonary arteries and moderate cardiomegaly. Note is made of a solid 8 mm irregular subpleural right lower lobe nodule on image 44 of 421. Liver is cirrhotic. No pneumatosis, free air or portal venous gas is present. There are gallstones within the gallbladder. Gallbladder is mildly distended. There is slight indistinctness of the gallbladder wall. Spleen and adrenal glands are unremarkable. There may be trace peripancreatic infiltration. Right kidney is not visualized. There is colonic diverticulosis without evidence for acute diverticulitis. There is no evidence for a bowel obstruction. Note is made of a 3.5 cm water attenuation right adnexal lesion. This has increased in size. There is a 1.8 cm water attenuation left adnexal lesion. No suspicious osseous lesions are present. IMPRESSION: 1. Cholelithiasis and mild gallbladder distention. Acute cholecystitis cannot be excluded. A right upper quadrant ultrasound could be obtained. 2. Possible mild peripancreatic infiltration. The findings could be correlated with this level to exclude acute pancreatitis. 3. Solid 8 mm right lower lobe nodule. This nodule is indeterminate and a small neoplasm cannot be excluded. Follow-up according to the attached recommendations is suggested. 4. Moderate attenuation bilateral adnexal lesions. These favor cysts however follow-up nonemergent pelvic ultrasound is recommended to evaluate for comp lexity. 5. Cirrhosis. SOLID NODULES Solitary nodule size: <6 mm * low risk patients: no follow-up needed * high risk patients: optional CT at 12 months Solitary nodule size: 6-8 mm * low risk patients: follow-up at 6-12 months, then consider further follow-up at 18-24 months * high risk patients: initial follow-up CT at 6-12 months and then at 18-24 months if no change Solitary nodule size: >8 mm * either low or high risk patients - consider follow-up CT at 3 months, and/or CT-PET, and/or biopsy Multiple nodules size: <6 mm * low risk patients: no routine follow-up * high risk patients: optional CT at 12 months Multiple nodules size: 6-8 mm * low risk patients: follow-up at 3-6 months, then consider further follow-up at 18-24 months * high risk patients: follow-up at 3-6 months, then at 18-24 months if no change Multiple nodules size: >8 mm * low risk patients: follow-up at 3-6 months, then consider further follow-up at 18-24 months * high risk patients: follow-up at 3-6 months, then at 18-24 months if no change Note: newly detected indeterminate nodule in persons 35 years of age or older. * low risk patients: minimal or absent history of smoking and/or other known risk factors * high risk patients: history of smoking or of other known risk factors (e.g. first degree relative with lung cancer, or exposure to asbestos, radon, uranium) * if a nodule up to 8 mm is partly solid or is ground glass further follow-up is required after 24 months to exclude possible slow growing adenocarcinoma (ROBER) ACT 112: Negative or not required by law. Electronically signed by: Alejo Moya M.D. 01/19/2020 2:36 PM ECG Data Attestation: I personally reviewed and interpreted this ECG as follows: Indication: + abdominal pain Rate (beats per minute): 65 Rhythm: + normal sinus ECG Intervals/blocks: + Right Bundle branch block ECG Findings: no PVCs Comparison ECG Date: from (07/03/18) Change: no significant change Blood Pressure Blood Pressure Findings: Elevated blood pressure Blood Pressure Disposition: elevated BP felt to be situational MDM Narrative The patient is a 74-year-old female who presented to the emergency department for an evaluation of upper abdominal pain. The patient has a history of gallstones. On physical exam the patient had significant upper abdominal pain to palpation. Impression & Plan Upper abdominal pain, Chest pain, Cholecystitis Discharge Plan Visit Data *Final* Discharge Date/Time: 01/19/20 17:18 Chief Complaint: GI Assessment Stated Complaint: abd pain ED Provider: Marv Seay Discharge Problem: Upper abdominal pain, Chest pain, Cholecystitis Patient Disposition: Admitted As Inpatient Discharge Instructions Interventions: ED Discharge Assessment Last Done: 01/19/20 17:18 Discharge Problem: Chest pain Qualifiers: Chest pain type: unspecified Qualified Code(s): R07.9 - Chest pain, unspecified The scribe's documentation has been prepared under my direction and personally reviewed by me in its entirety. I confirm that the note above accurately reflects all work, treatment, procedures, and medical decision making performed by me.
--- NOTE | 2020-01-19 13:02 | XRay Report ---
XR chest 1V portable HISTORY: Atypical chest pain COMPARISON: Chest 07/02/2018. FINDINGS: The heart is mildly enlarged. No change in the pulmonary trunk enlargement. No pleural effu sions. No pneumothorax. Linear density at the left lung base favor subsegmental atelectasis or scarri ng. Otherwise, the lungs are clear. No evidence for pulmonary edema. IMPRESSION: 1. Mild cardiomegaly. 2. Pulmonary arterial enlargement consistent with pulmonary hypertension. This remains unchanged. ACT 112: Negative or not required by law. Electronically signed by: Rishi Shook M.D. 01/19/2020 1:01 PM
[2020-01-19 13:14] LABS: Basophils # (auto) 0.07 K/uL (0-0.2); Eosinophils # (auto) 0.06 K/uL (0-0.5); Eosinophils % (auto) 0.9 %; Hematocrit (blood only) 37.9 % (37-47); Hemoglobin 12.8 g/dL (12.0-16.0); Immature Granulocytes # (auto) 0.01 K/uL (0.00-0.02); Immature Granulocytes % (auto) 0.1 %; Lymphocytes # (auto) 2.43 K/uL (1.2-3.4); Lymphocytes % (auto) 35.6 %; Mean Corpuscular Hgb Conc 33.8 g/dL (32-36); Mean Corpuscular Volume 100.8 fL (80-100); Mean Platelet Volume 12.8 fL (7.4-10.4); Monocytes # (auto) 0.73 K/uL (0.11-0.59); Monocytes % (auto) 10.7 %; Neutrophils # (auto) 3.53 K/uL (1.4-6.5); Neutrophils % (auto) 51.7 %; Platelet Count 199 K/uL (130-400); RDW Coefficient of Variation 13.9 % (11.5-14.5); RDW Standard Deviation 51.4 fL (36.4-46.3); Red Blood Count 3.76 M/uL (4.2-5.4); White Blood Count 6.83 K/uL (4.8-10.8)
[2020-01-19 13:39] LABS: Partial Thromboplastin Ratio 1.9
[2020-01-19 13:41] LABS: INR 4.5 (0.9-1.1); Partial Thromboplastin Time 51.7 Seconds (21.0-31.0)
[2020-01-19 14:01] LABS: Albumin Globulin Ratio 0.8 (0.9-2); Albumin Level 3.3 gm/dl (3.4-5.0); BUN Creatinine Ratio 45.1 (10-20); Bilirubin,Total 0.7 mg/dl (0.2-1); C Reactive Protein 0.57 mg/dl (0-0.29); Calcium 7.3 mg/dl (8.5-10.1); Creatinine Clr Calc Pharmacy 13.6 ml/min; Est GFR (African American) 17.5; Est GFR (Non-African American) 15.1; Globulin 4.1 gm/dl (2.5-4.0); Potassium 3.3 mmol/L (3.5-5.1); Total Protein 7.4 gm/dl (6.4-8.2); Troponin I 0.145 ng/ml (0-0.045)
--- NOTE | 2020-01-19 14:38 | CT Scan Report ---
CT OF THE ABDOMEN AND PELVIS WITHOUT CONTRAST CLINICAL HISTORY: Upper abdominal pain. COMPARISON STUDY: CT of the abdomen and pelvis June 03, 2018. TECHNIQUE: Axial images of the abdomen and pelvis were obtained without IV contrast. Images were revi ewed in the axial, sagittal, and coronal planes. Automated exposure control was utilized for the julee dy. A dose lowering technique was utilized adhering to the principles of ALARA. FINDINGS: Imaged portions of the lower chest demonstrate enlargement of the pulmonary arteries and mo derate cardiomegaly. Note is made of a solid 8 mm irregular subpleural right lower lobe nodule on jose elias ge 44 of 421. Liver is cirrhotic. No pneumatosis, free air or portal venous gas is present. There are gallstones within the gallbladder. Gallbladder is mildly distended. There is slight indistinctness o f the gallbladder wall. Spleen and adrenal glands are unremarkable. There may be trace peripancreatic infiltration. Right kidney is not visualized. There is colonic diverticulosis without evidence for a cute diverticulitis. There is no evidence for a bowel obstruction. Note is made of a 3.5 cm water att enuation right adnexal lesion. This has increased in size. There is a 1.8 cm water attenuation left a dnexal lesion. No suspicious osseous lesions are present. IMPRESSION: 1. Cholelithiasis and mild gallbladder distention. Acute cholecystitis cannot be excluded. A right up per quadrant ultrasound could be obtained. 2. Possible mild peripancreatic infiltration. The findings could be correlated with this level to exc lude acute pancreatitis. 3. Solid 8 mm right lower lobe nodule. This nodule is indeterminate and a small neoplasm cannot be ex cluded. Follow-up according to the attached recommendations is suggested. 4. Moderate attenuation bilateral adnexal lesions. These favor cysts however follow-up nonemergent pe lvic ultrasound is recommended to evaluate for complexity. 5. Cirrhosis. SOLID NODULES Solitary nodule size: <6 mm * low risk patients: no follow-up needed * high risk patients: optional CT at 12 months Solitary nodule size: 6-8 mm * low risk patients: follow-up at 6-12 months, then consider further follow-up at 18-24 months * high risk patients: initial follow-up CT at 6-12 months and then at 18-24 months if no change Solitary nodule size: >8 mm * either low or high risk patients - consider follow-up CT at 3 months, and/or CT-PET, and/or biopsy Multiple nodules size: <6 mm * low risk patients: no routine follow-up * high risk patients: optional CT at 12 months Multiple nodules size: 6-8 mm * low risk patients: follow-up at 3-6 months, then consider further follow-up at 18-24 months * high risk patients: follow-up at 3-6 months, then at 18-24 months if no change Multiple nodules size: >8 mm * low risk patients: follow-up at 3-6 months, then consider further follow-up at 18-24 months * high risk patients: follow-up at 3-6 months, then at 18-24 months if no change Note: newly detected indeterminate nodule in persons 35 years of age or older. * low risk patients: minimal or absent history of smoking and/or other known risk factors * high risk patients: history of smoking or of other known risk factors (e.g. first degree relative with lung cancer, or exposure to asbestos, radon, uranium) * if a nodule up to 8 mm is partly solid or is ground glass further follow-up is required after 24 m [facility] to exclude possible slow growing adenocarcinoma (ROBER) ACT 112: Negative or not required by law. Electronically signed by: Alejo Myoa M.D. 01/19/2020 2:36 PM
--- NOTE | 2020-01-19 15:05 | Electrocardiogram Report ---
Test Reason : Blood Pressure : / mmHG Vent. Rate : 065 BPM Atrial Rate : 065 BPM P-R Int : 176 ms QRS Dur : 172 ms QT Int : 504 ms P-R-T Axes : 000 -44 040 degrees QTc Int : 524 ms Poor data quality, interpretation may be adversely affected Normal sinus rhythm Left axis deviation Right bundle branch block Abnormal ECG When compared with ECG of 03-JUL-2018 06:21, T wave inversion no longer evident in Inferior leads Confirmed by Lenin Harrison ([id number] on 01/19/2020 3:04:40 PM Referred By: Confirmed By:Josh Harrison
[2020-01-19] MEDS ORDERED: cefOXitin 2,000 MG/60 ML BAG IV STA (15:38)
[2020-01-19 16:03] LABS: Appearance Urine Clear (Clear); Bilirubin Urine Negative (Negative); Blood Urine Negative (Negative); Color Urine Yellow; Glucose Urine UA Negative (Negative); Ketones Urine Negative (Negative); Leukocyte Esterase Urine Negative (Negative); Nitrite Urine Negative (Negative); Protein Urine Negative (Negative); Specific Gravity Urine 1.013 (1.000-1.030); Urobilinogen Urine Negative (Negative)
--- NOTE | 2020-01-19 16:59 | History & Physical Report ---
Date of Service January 19, 2020 Assessment & Plan (1) Cholecystitis: CT a/p on 01/19 showed cholelithiasis and mild gallbladder distention; acute cholecystitis not able to be ruled out. Afebrile, normal white count, no subjective fevers. - RUQ u/s ordered - GI consulted - Clear liquid diet, then NPO @ midnight - Gentle IV fluids given her reported hx of CHF - Hold abx at this time. No indication of infection. - Unfortunately, abx were given in the ED and no blood cultures were drawn. At this point, do not feel blood cultures are needed, but if they are drawn, be aware of prior abx given. (2) Pancreatitis: Lipase was 740 on admission with some epigastric pain, nausea, and vomiting. Possibly due to choledocholithiasis? - Clear liquids - IV fluids (lower rate due to reported CHF) - RUQ u/s - GI consult as above (3) Heart disease: Per a cardiology note from 06/2018, she had a left heart cath in 2007 with mild disease. This was done in the context of an atrial septal defect repair. - Initial troponin was 0.145. EKG shows TWIs in V1-V4 which from rolling machine operator automatic's read are chronic. I do not have access to MUSE, so I could not see myself. - Will trend troponins and EKGs in case this is atypical ACS, though patient denied any typical chest pain symptoms to me. - Continue beta-lacho, pravastatin for now. - Patient not on aspirin, but will defer given her high INR on admission (4) CKD (chronic kidney disease), stage IV: YAZMIN on CKD. Baseline Cr ~2.0-2.3; eGFR ~23. Had a prior right nephrectomy for unknown reason. - On admission, Cr was 2.95. - Likely pre-renal from nausea, vomiting, poor PO intake. - Gentle IV fluids as above for pancreatitis - Will get renal ultrasound, FeNa. - Nephrology consult (5) Uremia: Baseline urea appears to be high (60-90). Fortunately, does not appear to be - On admission, urea is 132. Ddx includes renal failure or GI bleed. - No signs of bleeding at present. - Nephrology consult as above - If any signs of bleeding, would advise DDAVP intravenously or subcutaneously at a dose of 0.3 mcg/kg (in 50 mL of saline over 15 to 30 minutes if intravenously), or 3 mcg/kg intranasally x 1 dose. (6) Paroxysmal atrial fibrillation: Per cardiology notes, she has had two flutter ablations in 2014 & 2015. 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 - Presently in normal sinus rhythm with a RBBB - Holding warfarin for supratherapeutic INR. Given vitamin K 5 mg PO x 1 on admission. - Monitor on telemetry -> She also has an implanted loop recorder. Not sure how long it has been in, but it's at least 1.5 years as it was noted in the cardiology notes from 06/2018. This could likely be removed. (7) CHF (congestive heart failure): Chronic diastolic heart failure with last known EF of 50-55% in 05/2018. Echo also showed pulmonary hypertension. - Presently appears euvolemic on exam. CXR stable. No CHF symptoms. - Gently diurese as above - Daily weights, I&Os to prevent iatrogenic volume overload - Continue beta-lacho - Hold torsemide, but low threshold to stop fluids and restart if needed. (8) COPD (chronic obstructive pulmonary disease): Chronic hypoxemic respiratory failure with usual home O2 of 3L. - Presently at home O2 setting with good O2 sat. No wheezing on exam and no reported shortness of breath. - Continue home O2, home inhalers. - DuoNebs PRN (9) Hemorrhoid: Per patient, had been having some rectal pain, but unknown if she is bleeding because she has not been able to wipe herself. - Continue home Anusol - Monitor for any sign of GI bleeding, especially in light of her high BUN. However, hgb is stable/above baseline and no other indication of bleeding. (10) Hypothyroid: TSH was 3.0 in 08/2019. Had been stable for two prior measurements. - Continue levothyroxine 50 mcg - Recheck TSH in AM (11) Cirrhosis: Multiple imaging modalities make note of cirrhotic appearance of liver. Unknown if she has had any work-up for this. AST/ALT generally near normal. Albumin low-normal at 3.3. - Monitor for any sign of hepatic decompensation. INR elevated in the context of warfarin. (12) Ovarian cyst: CT a/p showed moderate attenuation bilateral adnexal lesions. These favor cysts however follow-up nonemergent pelvic ultrasound is recommended to evaluate for complexity. (13) Pulmonary nodule: CT a/p on 01/19 showed solid 8 mm right lower lobe nodule. This nodule is indeterminate and a small neoplasm cannot be excluded. - Should get CT chest to look for further nodules as this would change fonseca rveillance time line (14) DVT prophylaxis: INR supratherapeutic on admission. - SCDs History of Present Illness Primary Care Provider: [facility] 74yo F w/ hx of paroxsymal afib/flutter, CHF, COPD on 3L home O2, DM2, HTN, and HLD who presents with pancreatitis & possible choledocholithiasis. The patient is a tough historian, but she and her daughter report that she has not been feeling for at least a few days. She has been having RUQ & epigastric pain along with nausea and mild vomiting. The emesis in non-bloody and non- bilious. She has also noted some alternating diarrhea and constipation. She notes some mild hemorrhoid pain, but she is unsure if she has been having melena or hematochezia because of the fact that she is not able to clean herself. She denies any shortness of breath or any chest pain. She denies any palpitations. She has not had any LE swelling or any orthopnea or dyspnea on exertion. Allergies Allergy/AdvReac Type Severity Reaction Status Date / Time levofloxacin Allergy Intermediate HIVES Verified 01/19/20 14:23 Quinolones Allergy Intermediate HIVES Verified 01/19/20 14:23 ranitidine Allergy Intermediate HIVES Verified 01/19/20 14:23 sulfamethoxazole Allergy Intermediate HIVES Verified 01/19/20 14:23 trimethoprim Allergy Intermediate HIVES Verified 01/19/20 14:23 clarithromycin Allergy Mild HIVES, CAN Verified 01/19/20 14:23 TAKE ZITHROMAX W/O PROB amoxicillin Allergy Unknown HIVES Verified 01/19/20 14:23 omeprazole Allergy Unknown HAS HAD Verified 01/19/20 14:23 PROTONIX tomato AdvReac Unknown GI SYMPTOMS Verified 01/19/20 14:23 Pork AdvReac Unknown GI SYMPTOMS Uncoded 01/19/20 14:23 Home Medications Home Medications Medication Instructions Recorded Confirmed Type acetaminophen 650 mg PO BID 01/19/20 01/19/20 History acetaminophen 650 mg PO Q6H PRN 01/19/20 01/19/20 History albuterol sulfate 2 puff INHALATION Q6H PRN 01/19/20 01/19/20 History alum-mag hydroxide-simeth [Mylanta 30 ml PO Q4H PRN 01/19/20 01/19/20 History Maximum Strength] bisacodyl [Dulcolax (bisacodyl)] 10 mg NH DAILY PRN 01/19/20 01/19/20 History brinzolamide 1 drp OPHTHALMIC (EYE) BID 01/19/20 01/19/20 History cinacalcet [Sensipar] 30 mg PO 3XWK 01/19/20 01/19/20 History donepezil 10 mg PO DAILY 01/19/20 01/19/20 History fluticasone propion-salmeterol 1 inh INHALATION Q12H 01/19/20 01/19/20 History [Advair Diskus] fluticasone propionate [Flonase 1 spray INTRANASAL BID 01/19/20 01/19/20 History Allergy Relief] folic acid 1 mg PO DAILY 01/19/20 01/19/20 History glycerin (adult) [Fleet Glycerin 1 supp NH DAILY PRN 01/19/20 01/19/20 History (Adult)] hydrocortisone acetate [Anusol-HC] 25 mg NH BID 01/19/20 01/19/20 History levothyroxine 50 mcg PO DAILY 01/19/20 01/19/20 History loratadine 10 mg PO DAILY 01/19/20 01/19/20 History magnesium hydroxide [Milk of 30 ml PO DAILY PRN 01/19/20 01/19/20 History Magnesia] methyl salicylate-menthol [Bengay 1 applic TOPICAL QID 01/19/20 01/19/20 History Greaseless] metoprolol succinate 12.5 mg PO DAILY 01/19/20 01/19/20 History nitroglycerin 0.4 mg SUBLINGUAL UD PRN 01/19/20 01/19/20 History omeprazole 20 mg PO DAILY 01/19/20 01/19/20 History oxybutynin chloride 5 mg PO DAILY 01/19/20 01/19/20 History polyethylene glycol 3350 [GlycoLax] 17 g PO DAILY PRN 01/19/20 01/19/20 History pravastatin 80 mg PO DAILY 01/19/20 01/19/20 History sennosides-docusate sodium 2 tab-cap PO BID 01/19/20 01/19/20 History [Senokot-S] torsemide 40 mg PO DAILY 01/19/20 01/19/20 History umeclidinium [Incruse Ellipta] 1 inh INHALATION DAILY 01/19/20 01/19/20 History warfarin [Coumadin] 2 mg PO DAILY 01/19/20 01/19/20 History Past Med/Surg History Medical History Afib (Chronic) "s/p ablation" Anemia (Chronic) CKD (chronic kidney disease), stage IV (Chronic) COPD (chronic obstructive pulmonary disease) (Chronic) Gallstones GERD (gastroesophageal reflux disease) (Chronic) H/O unilateral nephrectomy (Chronic) "right" Heart disease (Chronic) "mild CAD cath 2007" HTN (hypertension) (Chronic) Hypothyroid (Chronic) Surgical History H/O thyroidectomy (Chronic) History of appendectomy (Chronic) S/P MVR (mitral valve repair) (Chronic) Family History Father Heart disease Social History Preferred Language: Burkinan Communication Ability: Effective Peanut Butter Maker Required: No Beliefs That Will Affect Care: None Current Living Situation: Personal Care Facility Current Living Situation Comment: [facility] Feels Safe at Home: Yes Safety Concerns: Feels Safe At This Time Smoking Status: Former smoker Hx Alcohol Use: No Hx Substance Use: No Review of Systems Review of Systems: All systems reviewed & are unremarkable except as noted in HPI & below Physical Exam Constitutional: WD/WN, vitals as above Eyes: EOM intact bilaterally; no conjunctival abnormality ENMT: external ear and nose normal, oropharynx normal Neck: trachea midline, no thyromegaly normal visual inspection Respiratory: normal respiratory effort, lungs clear to auscultation no respiratory distress Cardiovascular: RRR, no murmur, no edema Gastrointestinal (Abdomen): Inspection/Auscultation: abdomen normal to inspection and normal bowel sounds; abdomen not distended Percussion/Palpation: + abdomen tender (RUQ and epigastric. Mild.) and abdomen soft; no guarding and abdomen not rigid Musculoskeletal: no cyanosis or clubbing, extremities motor strength 5/5 Skin: no rashes, warm and dry Neurologic: moves all extremities and awake Psychiatric: Orientation: alert, oriented to person and cooperative Results & Data Vital Signs (Past 12 Hours) Vital Signs Temp Pulse Pulse Resp BP BP Pulse Ox 01/19/20 16:16 73 18 133/96 99 01/19/20 15:37 81 18 130/93 99 01/19/20 15:03 67 18 124/83 100 01/19/20 13:44 69 16 134/62 95 01/19/20 13:13 73 16 142/81 H 01/19/20 12:45 94 01/19/20 12:16 36.6 C 87 18 143/75 H 97 Code Status & VTE Plan VTE Prophylaxis Plan VTE Prophylaxis will be ordered: Yes PG Care Time/CCT Total # of Minutes Spent Total Time Spent with Patient: Total time spent is greater than 50% in coordination of care (as documented) at patient's floor/unit and/or counseling patient: Coding Level of Care Code 05209 Initial Inpt Care Lvl 3 Diagnoses Cholecystitis K81.9 Pancreatitis K85.90 Heart disease I51.9 CKD (chronic kidney disease), stage IV N18.4 Uremia N19 Paroxysmal atrial fibrillation I48.0 CHF (congestive heart failure) I50.9 COPD (chronic obstructive pulmonary disease) J44.9 Hemorrhoid K64.9 Hypothyroid E03.9 Cirrhosis K74.60 Ovarian cyst N83.209 Pulmonary nodule R91.1 DVT prophylaxis Z29.9
[2020-01-19] MEDS ORDERED: ONDANSETRON INJ 2 MG/ML 2 ML VIAL IV PRN (17:56)
[2020-01-19] MEDS ORDERED: ACETAMINOPHEN 325 MG TAB PO PRN (17:56)
[2020-01-19] MEDS ORDERED: PHYTONADIONE 5 MG TAB PO STA ×2 (17:56→20:31)
[2020-01-19] MEDS: LACTATED RINGER'S 1,000 ML IV SCH (18:45)
[2020-01-19] MEDS ORDERED: PROCHLORPERAZINE 10 MG in SYRINGE 8 ML IV PRN (18:52)
[2020-01-19] MEDS ORDERED: ALBUT/IPRATROP 3MG/0.5MG NEB 3 ML VIAL NEB PRN (20:28)
[2020-01-19] MEDS: BRINZOLAMIDE (AZOPT) OPS 10 ML BTL OP SCH (21:56)
[2020-01-19] MEDS: FLUTICASONE PROPIONATE NA SPR 16 GM BTL NAE SCH (21:57)
[2020-01-19] MEDS: HYDROCORTISONE ACETATE 25 MG SUPP PR SCH (21:59)
[2020-01-20] MEDS: LEVOTHYROXINE SODIUM 50 MCG TABLET PO SCH (05:46)
[2020-01-20 06:49] LABS: Hematocrit (blood only) 31.7 % (37-47); Hemoglobin 10.6 g/dL (12.0-16.0); Mean Corpuscular Hemoglobin 33.9 pg (25-34); Mean Corpuscular Hgb Conc 33.4 g/dL (32-36); Mean Corpuscular Volume 101.3 fL (80-100); Platelet Count 159 K/uL (130-400); RDW Coefficient of Variation 13.9 % (11.5-14.5); RDW Standard Deviation 51.3 fL (36.4-46.3); Red Blood Count 3.13 M/uL (4.2-5.4); White Blood Count 6.88 K/uL (4.8-10.8)
[2020-01-20] MEDS: LACTATED RINGER'S 1,000 ML IV SCH (06:56)
[2020-01-20 07:04] LABS: Prothrombin Time 35.6 Seconds (9.0-12.0)
[2020-01-20 07:21] LABS: Albumin Level 2.6 gm/dl (3.4-5.0); BUN Creatinine Ratio 44.3 (10-20); Calcium 6.5 mg/dl (8.5-10.1); Creatinine Clr Calc Pharmacy 16.5 ml/min; Magnesium 1.7 mg/dl (1.8-2.4); Potassium 2.7 mmol/L (3.5-5.1)
[2020-01-20 07:33] LABS: Albumin Globulin Ratio 0.8 (0.9-2); Bilirubin,Total 0.8 mg/dl (0.2-1); Globulin 3.3 gm/dl (2.5-4.0); Phosphorus 3.9 mg/dl (2.5-4.9); Thyroid Stimulating Hormone 0.605 uIu/ml (0.300-4.500); Total Protein 5.9 gm/dl (6.4-8.2); Troponin I 0.164 ng/ml (0-0.045)
[2020-01-20 07:36] LABS: INR 3.8 (0.9-1.1)
--- NOTE | 2020-01-20 08:13 | Ultrasound Report ---
US abdomen complete CLINICAL HISTORY: Pancreatitis, possible choledocholithiasis COMPARISON STUDY: CT of the abdomen and pelvis January 20, 2020. FINDINGS: There is mild coarsening of hepatic echotexture. No hepatic lesions are identified. There i s no biliary ductal dilatation. The common bile duct measures 6 mm in caliber. No choledocholithiasis is noted. Pancreas is slightly echogenic. Head and tail are obscured. There are no peripancreatic fl uid collections. Gallstones are noted within the gallbladder. No sonographic Pearce sign was reported . Gallbladder wall thickness is at the upper limits of normal. The right kidney is surgically absent. There is mild prominence of the left collecting system. Caliber of the abdominal aorta is normal. Vi sualized portions of the IVC are patent. IMPRESSION: 1. No biliary ductal dilatation. No common bile duct calculi identified by sonography. 2. Cholelithiasis. Borderline gallbladder wall thickening. No sonographic Pearce sign. If clinical fonseca spicion for acute cholecystitis, a hepatobiliary scan could be obtained. 3. Suspected cirrhosis. ACT 112: Negative or not required by law. Electronically signed by: Alejo Moya M.D. 01/20/2020 8:12 AM
[2020-01-20] MEDS: FLUTICASONE PROPIONATE NA SPR 16 GM BTL NAE SCH ×2 (08:15→21:25)
[2020-01-20] MEDS: METOPROLOL SUCC 25MG EXT REL TAB PO SCH (08:15)
[2020-01-20] MEDS: BRINZOLAMIDE (AZOPT) OPS 10 ML BTL OP SCH ×2 (08:15→21:25)
[2020-01-20] MEDS: OXYBUTYNIN CHLORIDE XL 5 MG TABCR PO SCH (08:16)
[2020-01-20] MEDS: HYDROCORTISONE ACETATE 25 MG SUPP PR SCH ×2 (08:16→21:25)
[2020-01-20] MEDS: DONEPEZIL HCL 10 MG TAB PO SCH (08:16)
[2020-01-20] MEDS: PRAVASTATIN SOD 40 MG TAB PO SCH (08:16)
[2020-01-20] MEDS: PANTOprazole 40 MG TAB PO SCH (08:16)
[2020-01-20] MEDS: UMECLIDINIUM BROMIDE 62.5MCG/BLISTER 7 PUFFS/INHALER INH SCH (08:16)
[2020-01-20] MEDS: FLUTICASONE/VILANTEROL 100/25MCG 14 PUFFS/INHALER INH SCH (08:16)
[2020-01-20] MEDS: FOLIC ACID 1 MG TAB PO SCH (08:16)
[2020-01-20] MEDS ORDERED: MAGNESIUM SULFATE / D5W 1 GM/100 ML BAG IV ONE (08:21)
--- NOTE | 2020-01-20 09:05 | Nephrology Consultation ---
Date of Consultation January 20, 2020 Assessment & Plan (1) Acute on chronic renal failure: Baseline creatinine 2.0; in setting of solitary kidney after remote R nephrectomy. Prerenal nonoliguric YAZMIN on CKD4 w/ presenting creatinine 01/19 at 2.9, improved to 2.4 this am. Chemistries as below. Some elevated BUN. mild anemia which is stable -stopped FENa labs which are less useful in pt w/ liver cirrhosis, advanced CKD -daily bmp Present on Admission?: Yes (2) Electrolyte and fluid disorder: K 2.7 this am, down from 3.3 yesterday on presentation. Ca on lower side; corrects for albumin to 7.6. BUN 132 on presentation 01/19 and 107 today > very high to be prerenal azotemia but possibly d/t this since she has no steroids on board systemically and no GI bleeding -OP sensipar not ordered currently and would not at this time restart -recheck bmp ordered for 1400 and would have low threshold to stop LR at that time -agree w/ K rich fluids (w/ care) and IV K for now as well as 20 mEq K po tid -cont to hold OP torsemide Present on Admission?: Yes History of Present Illness Reason for Consultation: YAZMIN on CKD Requesting Physician: Dr Pritchard Attending Physician: Micheal Buckner History of Present Illness 74 y/o F [facility] resident whom I'm asked to see for YAZMIN on CKD 4 after she was admitted overnight w/ choledocholithiasis w/ concern for cholecystitis and pancreatitis. she presented w/ N/V/decreased po intake; also presented w/ BUN 132, creatinine 2.9, K 3.3. PMH includes HTN, chronic diastolic hf, hypothryoid, COPD and severe plm HTN on chronic 02, sleep apnea on bipap, DM2, pAF on coumadin and s/p ablations for a flutter last one 2015, nonsustained ventricular tachycardia, solitary kidney, ambulatory dysfunction (walks w/ cane at baseline), primary hyperPTH on sensipar, neprholithiasis not clinically active x years; liver cirrhosis, pulm nodule. She follows w/ Dr Batista in CKD clinic w/ baseline creatinine 2.0; last seen 12/14/19. she had abtx IV in ER. Also had 1L NS and was started on LR at 80 mL/hr w/ 2 x 10 mEq K riders; also w/ po K ordered. Creat this am is 2.4, K 2.7. On eval this am states she feels better than last evening; does not feel sob; no N, no edema, no voiding c/o. does have pruritic lesions present for several days Allergies Allergy/AdvReac Type Severity Reaction Status Date / Time levofloxacin Allergy Intermediate HIVES Verified 01/19/20 14:23 Quinolones Allergy Intermediate HIVES Verified 01/19/20 14:23 ranitidine Allergy Intermediate HIVES Verified 01/19/20 14:23 sulfamethoxazole Allergy Intermediate HIVES Verified 01/19/20 14:23 trimethoprim Allergy Intermediate HIVES Verified 01/19/20 14:23 clarithromycin Allergy Mild HIVES, CAN Verified 01/19/20 14:23 TAKE ZITHROMAX W/O PROB amoxicillin Allergy Unknown HIVES Verified 01/19/20 14:23 omeprazole Allergy Unknown HAS HAD Verified 01/19/20 14:23 PROTONIX tomato AdvReac Unknown GI SYMPTOMS Verified 01/19/20 14:23 Pork AdvReac Unknown GI SYMPTOMS Uncoded 01/19/20 14:23 Home Medications Home Medications Medication Instructions Recorded Confirmed Type acetaminophen 650 mg PO BID 01/19/20 01/19/20 History acetaminophen 650 mg PO Q6H PRN 01/19/20 01/19/20 History albuterol sulfate 2 puff INHALATION Q6H PRN 01/19/20 01/19/20 History alum-mag hydroxide-simeth [Mylanta 30 ml PO Q4H PRN 01/19/20 01/19/20 History Maximum Strength] bisacodyl [Dulcolax (bisacodyl)] 10 mg UT DAILY PRN 01/19/20 01/19/20 History brinzolamide 1 drp OPHTHALMIC (EYE) BID 01/19/20 01/19/20 History cinacalcet [Sensipar] 30 mg PO 3XWK 01/19/20 01/19/20 History donepezil 10 mg PO DAILY 01/19/20 01/19/20 History fluticasone propion-salmeterol 1 inh INHALATION Q12H 01/19/20 01/19/20 History [Advair Diskus] fluticasone propionate [Flonase 1 spray INTRANASAL BID 01/19/20 01/19/20 History Allergy Relief] folic acid 1 mg PO DAILY 01/19/20 01/19/20 History glycerin (adult) [Fleet Glycerin 1 supp UT DAILY PRN 01/19/20 01/19/20 History (Adult)] hydrocortisone acetate [Anusol-HC] 25 mg UT BID 01/19/20 01/19/20 History levothyroxine 50 mcg PO DAILY 01/19/20 01/19/20 History loratadine 10 mg PO DAILY 01/19/20 01/19/20 History magnesium hydroxide [Milk of 30 ml PO DAILY PRN 01/19/20 01/19/20 History Magnesia] methyl salicylate-menthol [Bengay 1 applic TOPICAL QID 01/19/20 01/19/20 History Greaseless] metoprolol succinate 12.5 mg PO DAILY 01/19/20 01/19/20 History nitroglycerin 0.4 mg SUBLINGUAL UD PRN 01/19/20 01/19/20 History omeprazole 20 mg PO DAILY 01/19/20 01/19/20 History oxybutynin chloride 5 mg PO DAILY 01/19/20 01/19/20 History polyethylene glycol 3350 [GlycoLax] 17 g PO DAILY PRN 01/19/20 01/19/20 History pravastatin 80 mg PO DAILY 01/19/20 01/19/20 History sennosides-docusate sodium 2 tab-cap PO BID 01/19/20 01/19/20 History [Senokot-S] torsemide 40 mg PO DAILY 01/19/20 01/19/20 History umeclidinium [Incruse Ellipta] 1 inh INHALATION DAILY 01/19/20 01/19/20 History warfarin [Coumadin] 2 mg PO DAILY 01/19/20 01/19/20 History Patient History Medical History Afib (Chronic) "s/p ablation" Anemia (Chronic) CKD (chronic kidney disease), stage IV (Chronic) COPD (chronic obstructive pulmonary disease) (Chronic) Gallstones GERD (gastroesophageal reflux disease) (Chronic) H/O unilateral nephrectomy (Chronic) "right" Heart disease (Chronic) "mild CAD cath 2007" HTN (hypertension) (Chronic) Hypothyroid (Chronic) Surgical History H/O thyroidectomy (Chronic) History of appendectomy (Chronic) S/P MVR (mitral valve repair) (Chronic) Family History Father Heart disease Social History Preferred Language: Hebrew Communication Ability: Effective Assistant Professor Of Anthropology Required: No Beliefs That Will Affect Care: None Current Living Situation: Personal Care Facility Current Living Situation Comment: [place] Feels Safe at Home: Yes Safety Concerns: Feels Safe At This Time Smoking Status: Former smoker Hx Alcohol Use: No Hx Substance Use: No Results & Data Vital Signs (Past 12 Hours) Vital Signs Temp Pulse Pulse Resp BP Pulse Ox 01/20/20 07:39 36.9 C 99 H 18 145/72 H 01/20/20 03:52 36.9 C 61 20 136/66 99 01/20/20 00:57 71 01/20/20 00:06 37.0 C 60 18 137/67 93 Laboratory Results 01/20/20 06:29 01/20/20 06:29 UA s.g. 1013; clear yellow w/ bland sediment Diagnostic Findings CT abd/pelvis 1. Cholelithiasis and mild gallbladder distention. Acute cholecystitis cannot be excluded. A right upper quadrant ultrasound could be obtained. 2. Possible mild peripancreatic infiltration. The findings could be correlated with this level to exclude acute pancreatitis. 3. Solid 8 mm right lower lobe nodule. This nodule is indeterminate and a small neoplasm cannot be excluded. Follow-up according to the attached recommendations is suggested. 4. Moderate attenuation bilateral adnexal lesions. These favor cysts however follow-up nonemergent pelvic ultrasound is recommended to evaluate for complexity. 5. Cirrhosis. CXR 1. Mild cardiomegaly. 2. Pulmonary arterial enlargement consistent with pulmonary hypertension. This remains unchanged. (1) Acute on chronic renal failure Acute renal failure type: unspecified Chronic kidney disease stage: stage 4 (severe) Qualified Code(s): N17.9 - Acute kidney failure, unspecified; N18.4 - Chronic kidney disease, stage 4 (severe)
[2020-01-20] MEDS: POTASSIUM CHLORIDE 20 MEQ TABCR PO SCH ×3 (09:25→21:24)
--- NOTE | 2020-01-20 09:42 | Surgery Consultation ---
Date of Consultation January 20, 2020 Assessment & Plan (1) Cholelithiasis: This is a 74yF who lives at [facility] with multiple medical issues including afib on coumadin, CHF, COPD on 3L O2 at home, DM2, HTN, nephrectomy, & HLD who presents to the [facility] [place] ED on 01/19/20 with complaints of abdominal pain, nausea/vomiting. Workup in the ED showed and elevated lipase c/f pancreatitis and imaing with cholelithiasis with concerns for cirrhosis. Today's lab work is notable for an elevated troponin:0.164, INR: 3.8, K: 2.7, & Lipase: 645. She has a normal WBC: 6.8, and normal LFT's of Tbili: 0.8, AST: 34, ALT: 23, Alkp: 60. At this time patient feels as though her symptoms are improving. There is no definitive evidence of choledocholithiasis or cholecystitis on her imaging. Her multiple medical issues put her at high risk for a surgical procedure. Would recommend continued supportive care. If her gallbladder continues to be of high concern for contributing to her symptoms she may benefit from a tertiary center for discussion for possible perc. flor tube. History of Present Illness Attending Physician: Micheal Buckner History of Present Illness This is a 74yF who lives at [facility] with multiple medical issues including afib on coumadin, CHF, COPD on 3L O2 at home, DM2, HTN, nephrectomy, & HLD who presents to the [facility] [place] ED on 01/19/20 with complaints of abdominal pain, nausea/vomiting. Patient reports that her abdominal pain started about 1 week ago and would come and go intermittently. She does not note an association with a specific type of food. She states it's located in the upper and mid abdomen. The pain continued to progress rating it an 8/10 and she developed nausea/vomiting which prompted her to come to the ED for evaluation. In the ED labs revealed WBC 6.8. Troponin: 0.148, INR: 4.5, Lipase: 739, Tbili:0.7, AST:34, ALT:23, Alkp:60. A CT a/p performed revealed + gallstones with gallbladder distention (acute cholecystitis cannot be excluded), c/f pancreatitis, and findings of cirrhosis. A follow up RUQ US showed + gallstones, no CBD stones, - murphys sign, and cirrhosis. Patient reports diarrhea which is new for her and denies fevers/chills, chest pain/shortness of breath, or back pain. When asked, she denies drinking alcohol. Patient says she did tolerated some liquids yesterday and currently feels a lot better than admission. Patient was admitted under medicine service with GI and surgery consultations. Allergies Allergy/AdvReac Type Severity Reaction Status Date / Time levofloxacin Allergy Intermediate HIVES Verified 01/19/20 14:23 Quinolones Allergy Intermediate HIVES Verified 01/19/20 14:23 ranitidine Allergy Intermediate HIVES Verified 01/19/20 14:23 sulfamethoxazole Allergy Intermediate HIVES Verified 01/19/20 14:23 trimethoprim Allergy Intermediate HIVES Verified 01/19/20 14:23 clarithromycin Allergy Mild HIVES, CAN Verified 01/19/20 14:23 TAKE ZITHROMAX W/O PROB amoxicillin Allergy Unknown HIVES Verified 01/19/20 14:23 omeprazole Allergy Unknown HAS HAD Verified 01/19/20 14:23 PROTONIX tomato AdvReac Unknown GI SYMPTOMS Verified 01/19/20 14:23 Pork AdvReac Unknown GI SYMPTOMS Uncoded 01/19/20 14:23 Home Medications Home Medications Medication Instructions Recorded Confirmed Type acetaminophen 650 mg PO BID 01/19/20 01/19/20 History acetaminophen 650 mg PO Q6H PRN 01/19/20 01/19/20 History albuterol sulfate 2 puff INHALATION Q6H PRN 01/19/20 01/19/20 History alum-mag hydroxide-simeth [Mylanta 30 ml PO Q4H PRN 01/19/20 01/19/20 History Maximum Strength] bisacodyl [Dulcolax (bisacodyl)] 10 mg MI DAILY PRN 01/19/20 01/19/20 History brinzolamide 1 drp OPHTHALMIC (EYE) BID 01/19/20 01/19/20 History cinacalcet [Sensipar] 30 mg PO 3XWK 01/19/20 01/19/20 History donepezil 10 mg PO DAILY 01/19/20 01/19/20 History fluticasone propion-salmeterol 1 inh INHALATION Q12H 01/19/20 01/19/20 History [Advair Diskus] fluticasone propionate [Flonase 1 spray INTRANASAL BID 01/19/20 01/19/20 History Allergy Relief] folic acid 1 mg PO DAILY 01/19/20 01/19/20 History glycerin (adult) [Fleet Glycerin 1 supp MI DAILY PRN 01/19/20 01/19/20 History (Adult)] hydrocortisone acetate [Anusol-HC] 25 mg MI BID 01/19/20 01/19/20 History levothyroxine 50 mcg PO DAILY 01/19/20 01/19/20 History loratadine 10 mg PO DAILY 01/19/20 01/19/20 History magnesium hydroxide [Milk of 30 ml PO DAILY PRN 01/19/20 01/19/20 History Magnesia] methyl salicylate-menthol [Bengay 1 applic TOPICAL QID 01/19/20 01/19/20 History Greaseless] metoprolol succinate 12.5 mg PO DAILY 01/19/20 01/19/20 History nitroglycerin 0.4 mg SUBLINGUAL UD PRN 01/19/20 01/19/20 History omeprazole 20 mg PO DAILY 01/19/20 01/19/20 History oxybutynin chloride 5 mg PO DAILY 01/19/20 01/19/20 History polyethylene glycol 3350 [GlycoLax] 17 g PO DAILY PRN 01/19/20 01/19/20 History pravastatin 80 mg PO DAILY 01/19/20 01/19/20 History sennosides-docusate sodium 2 tab-cap PO BID 01/19/20 01/19/20 History [Senokot-S] torsemide 40 mg PO DAILY 01/19/20 01/19/20 History umeclidinium [Incruse Ellipta] 1 inh INHALATION DAILY 01/19/20 01/19/20 History warfarin [Coumadin] 2 mg PO DAILY 01/19/20 01/19/20 History Patient History Medical History Afib (Chronic) "s/p ablation" Anemia (Chronic) CKD (chronic kidney disease), stage IV (Chronic) COPD (chronic obstructive pulmonary disease) (Chronic) Gallstones GERD (gastroesophageal reflux disease) (Chronic) H/O unilateral nephrectomy (Chronic) "right" Heart disease (Chronic) "mild CAD cath 2007" HTN (hypertension) (Chronic) Hypothyroid (Chronic) Surgical History H/O thyroidectomy (Chronic) History of appendectomy (Chronic) S/P MVR (mitral valve repair) (Chronic) Family History Father Heart disease Social History Preferred Language: Guinean Communication Ability: Effective Custodial Services Manager Required: No Beliefs That Will Affect Care: None Current Living Situation: Personal Care Facility Current Living Situation Comment: [facility] Feels Safe at Home: Yes Safety Concerns: Feels Safe At This Time Smoking Status: Former smoker Hx Alcohol Use: No Hx Substance Use: No Review of Systems Constitutional: no fever and no chills Respiratory: no shortness of breath Cardiovascular: no chest pain Gastrointestinal: + abdominal pain (upper and mid abdomen), + nausea, + vomiting and + diarrhea/loose stools; no bloating Physical Exam Physical Exam: awake/alert Constitutional: cooperative and comfortable; no acute distress Respiratory: normal respiratory effort Gastrointestinal (Abdomen): Inspection/Auscultation: abdomen not distended Percussion/Palpation: + abdomen tender (mild ttp right upper and mid abdomen) and abdomen soft Results & Data Vital Signs (Past 12 Hours) Vital Signs Temp Pulse Pulse Resp BP Pulse Ox 01/20/20 07:39 36.9 C 99 H 18 145/72 H 01/20/20 03:52 36.9 C 61 20 136/66 99 01/20/20 00:57 71 01/20/20 00:06 37.0 C 60 18 137/[address] OF THE ABDOMEN AND PELVIS WITHOUT CONTRAST CLINICAL HISTORY: Upper abdominal pain. COMPARISON STUDY: CT of the abdomen and pelvis June 03, 2018. TECHNIQUE: Axial images of the abdomen and pelvis were obtained without IV contrast. Images were reviewed in the axial, sagittal, and coronal planes. Automated exposure control was utilized for the study. A dose lowering technique was utilized adhering to the principles of ALARA. FINDINGS: Imaged portions of the lower chest demonstrate enlargement of the pulmonary arteries and moderate cardiomegaly. Note is made of a solid 8 mm irregular subpleural right lower lobe nodule on image 44 of 421. Liver is cirrhotic. No pneumatosis, free air or portal venous gas is present. There are gallstones within the gallbladder. Gallbladder is mildly distended. There is slight indistinctness of the gallbladder wall. Spleen and adrenal glands are unremarkable. There may be trace peripancreatic infiltration. Right kidney is not visualized. There is colonic diverticulosis without evidence for acute diverticulitis. There is no evidence for a bowel obstruction. Note is made of a 3.5 cm water attenuation right adnexal lesion. This has increased in size. There is a 1.8 cm water attenuation left adnexal lesion. No suspicious osseous lesions are present. IMPRESSION: 1. Cholelithiasis and mild gallbladder distention. Acute cholecystitis cannot be excluded. A right upper quadrant ultrasound could be obtained. 2. Possible mild peripancreatic infiltration. The findings could be correlated with this level to exclude acute pancreatitis. 3. Solid 8 mm right lower lobe nodule. This nodule is indeterminate and a small neoplasm cannot be excluded. Follow-up according to the attached recommendations is suggested. 4. Moderate attenuation bilateral adnexal lesions. These favor cysts however follow-up nonemergent pelvic ultrasound is recommended to evaluate for complexity. 5. Cirrhosis. SOLID NODULES Solitary nodule size: <6 mm * low risk patients: no follow-up needed * high risk patients: optional CT at 12 months Solitary nodule size: 6-8 mm * low risk patients: follow-up at 6-12 months, then consider further follow-up at 18-24 months * high risk patients: initial follow-up CT at 6-12 months and then at 18-24 months if no change Solitary nodule size: >8 mm * either low or high risk patients - consider follow-up CT at 3 months, and/or CT-PET, and/or biopsy Multiple nodules size: <6 mm * low risk patients: no routine follow-up * high risk patients: optional CT at 12 months Multiple nodules size: 6-8 mm * low risk patients: follow-up at 3-6 months, then consider further follow-up at 18-24 months * high risk patients: follow-up at 3-6 months, then at 18-24 months if no change Multiple nodules size: >8 mm * low risk patients: follow-up at 3-6 months, then consider further follow-up at 18-24 months * high risk patients: follow-up at 3-6 months, then at 18-24 months if no change Note: newly detected indeterminate nodule in persons 35 years of age or older. * low risk patients: minimal or absent history of smoking and/or other known risk factors * high risk patients: history of smoking or of other known risk factors (e.g. first degree relative with lung cancer, or exposure to asbestos, radon, uranium) * if a nodule up to 8 mm is partly solid or is ground glass further follow-up is required after 24 months to exclude possible slow growing adenocarcinoma ([place]OBER) ACT 112: Negative or not required by law. Electronically signed by: Alejo Moya M.D. 01/19/2020 2:36 PM Dictated: 01/19/201402 Transcribed: 01/19/201402 US abdomen complete CLINICAL HISTORY: Pancreatitis, possible choledocholithiasis COMPARISON STUDY: CT of the abdomen and pelvis January 20, 2020. FINDINGS: There is mild coarsening of hepatic echotexture. No hepatic lesions are identified. There is no biliary ductal dilatation. The common bile duct kishor sures 6 mm in caliber. No choledocholithiasis is noted. Pancreas is slightly echogenic. Head and tail are obscured. There are no peripancreatic fluid collections. Gallstones are noted within the gallbladder. No sonographic Pearce sign was reported. Gallbladder wall thickness is at the upper limits of normal. The right kidney is surgically absent. There is mild prominence of the left collecting system. Caliber of the abdominal aorta is normal. Visualized portions of the IVC are patent. IMPRESSION: 1. No biliary ductal dilatation. No common bile duct calculi identified by sonography. 2. Cholelithiasis. Borderline gallbladder wall thickening. No sonographic Pearce sign. If clinical suspicion for acute cholecystitis, a hepatobiliary scan could be obtained. 3. Suspected cirrhosis. ACT 112: Negative or not required by law. Electronically signed by: Alejo Moya M.D. 01/20/2020 8:12 AM Dictated: 01/20/20808 Transcribed: 01/20/20808 PG Care Time/CCT Total # of Minutes Spent Total Time Spent with Patient: Total time spent is greater than 50% in coordination of care (as documented) at patient's floor/unit and/or counseling patient: Coding Level of Care Code 88369 Initial Inpt Care Lvl 3 Diagnoses Cholelithiasis K80.20
[2020-01-20] MEDS: POTASSIUM CHLORIDE / WTR 10 MEQ/100 ML PLCT IV SCH ×2 (10:38→11:41)
--- NOTE | 2020-01-20 12:31 | Gastrointestinal Consultation ---
Date of Consultation January 20, 2020 Assessment & Plan (1) Cholelithiasis: (2) Cirrhosis: (3) Pancreatitis: Pt is a 74 y/o female w RUQ abd pain, n/v x 1 weeks, labs and imaging studies indicate pancreatitis ? gallstone related. Borderline gallbladder wall thickening w/o obvious cholecystitis. CBD 6mm, w/o choledocholithiasis noted on u/s. Liver suspicious for cirrhosis. - LR IVF resuscitation - OK for CL diet today. - Replete K; Correct INR, will give additional Vit K 5mg IV - Obtain Cardiology Consult given elevated Troponin, EKG changes - Discussed case with both Dr. Osborne and Herrera. Will defer endoscopic eval at this time given no definite evidence of choledocholithiasis, normal LFTs. Will monitor for now, if LFTs start to rise, will re consider EUS/ERCP - Surgery following, no surgical plans as this time ; recommend tertiary care transfer if concerning for cholecystitis symptoms for perc tube drain placement - I attempted to call pt's daughter and to review plans with them, wrong numbers. Attg add: I interviewed and examined pt, reviewed chart and labs. Pt admit with RUQ pain x 1 week. On exam, mild RUQ tenderness on deep palpation. Labs show nl transaminases, bili, lipase mildly increased in the context of increased creat. Imaging shows cirrhosis, mild GB wal lthick, stones in GB no nils dil. Unclear cause of pain, but no evidence of persistent choledocholithiasis by labs/imaging. Lipase elevation may be from passed stone or from increast creat. Rec diet as elvis, will follow with you. History of Present Illness Reason for Consultation: Pancreatitis, possible choledocholithiasis Requesting Physician: Dr. Micheal Buckner Attending Physician: Dr. Justyn Osborne History of Present Illness Pt is a 74 y/o female [facility] resident who presented w c/o RUQ abd pain x 1 week associated with N/V. She denies increased pain with eating. No bowel habit changes. She denies fever, chills, CP, SOB. No abd pain since admitted. On evaluation, labs significant for elevated Lipase over 700s. LFTs w mild chrissy vation: Tbili 0.8, AST 39, ALT 30, AP 60. She does have acute on chronic CKD Cr now 2.4, hx of solitary kidney. She has hx of Afib s/p ablation and previously had pacemaker implanted but removed due to infections. Currently she has [employer] loop recorder in place and on Coumadin, INR on admission 4.5 -> 3.8 with Vit K. Her imaging studies including CT abd/pelvis w/o contrast and gallbladder u/s showed signs of cholelithiasis w possible gallbladder wall thickening, CBD 6mm, no obvious choledocholithiasis noted. + peripancreatic infiltration and liver suspicious for cirrhosis. Pt admits to heavy ETOH uses and tobacco smoking in the past, quit since over 40 yrs ago. Allergies Allergy/AdvReac Type Severity Reaction Status Date / Time levofloxacin Allergy Intermediate HIVES Verified 01/19/20 14:23 Quinolones Allergy Intermediate HIVES Verified 01/19/20 14:23 ranitidine Allergy Intermediate HIVES Verified 01/19/20 14:23 sulfamethoxazole Allergy Intermediate HIVES Verified 01/19/20 14:23 trimethoprim Allergy Intermediate HIVES Verified 01/19/20 14:23 clarithromycin Allergy Mild HIVES, CAN Verified 01/19/20 14:23 TAKE ZITHROMAX W/O PROB amoxicillin Allergy Unknown HIVES Verified 01/19/20 14:23 omeprazole Allergy Unknown HAS HAD Verified 01/19/20 14:23 PROTONIX tomato AdvReac Unknown GI SYMPTOMS Verified 01/19/20 14:23 Pork AdvReac Unknown GI SYMPTOMS Uncoded 01/19/20 14:23 Home Medications Home Medications Medication Instructions Recorded Confirmed Type acetaminophen 650 mg PO BID 01/19/20 01/19/20 History acetaminophen 650 mg PO Q6H PRN 01/19/20 01/19/20 History albuterol sulfate 2 puff INHALATION Q6H PRN 01/19/20 01/19/20 History alum-mag hydroxide-simeth [Mylanta 30 ml PO Q4H PRN 01/19/20 01/19/20 History Maximum Strength] bisacodyl [Dulcolax (bisacodyl)] 10 mg NE DAILY PRN 01/19/20 01/19/20 History brinzolamide 1 drp OPHTHALMIC (EYE) BID 01/19/20 01/19/20 History cinacalcet [Sensipar] 30 mg PO 3XWK 01/19/20 01/19/20 History donepezil 10 mg PO DAILY 01/19/20 01/19/20 History fluticasone propion-salmeterol 1 inh INHALATION Q12H 01/19/20 01/19/20 History [Advair Diskus] fluticasone propionate [Flonase 1 spray INTRANASAL BID 01/19/20 01/19/20 History Allergy Relief] folic acid 1 mg PO DAILY 01/19/20 01/19/20 History glycerin (adult) [Fleet Glycerin 1 supp NE DAILY PRN 01/19/20 01/19/20 History (Adult)] hydrocortisone acetate [Anusol-HC] 25 mg NE BID 01/19/20 01/19/20 History levothyroxine 50 mcg PO DAILY 01/19/20 01/19/20 History loratadine 10 mg PO DAILY 01/19/20 01/19/20 History magnesium hydroxide [Milk of 30 ml PO DAILY PRN 01/19/20 01/19/20 History Magnesia] methyl salicylate-menthol [Bengay 1 applic TOPICAL QID 01/19/20 01/19/20 History Greaseless] metoprolol succinate 12.5 mg PO DAILY 01/19/20 01/19/20 History nitroglycerin 0.4 mg SUBLINGUAL UD PRN 01/19/20 01/19/20 History omeprazole 20 mg PO DAILY 01/19/20 01/19/20 History oxybutynin chloride 5 mg PO DAILY 01/19/20 01/19/20 History polyethylene glycol 3350 [GlycoLax] 17 g PO DAILY PRN 01/19/20 01/19/20 History pravastatin 80 mg PO DAILY 01/19/20 01/19/20 History sennosides-docusate sodium 2 tab-cap PO BID 01/19/20 01/19/20 History [Senokot-S] torsemide 40 mg PO DAILY 01/19/20 01/19/20 History umeclidinium [Incruse Ellipta] 1 inh INHALATION DAILY 01/19/20 01/19/20 History warfarin [Coumadin] 2 mg PO DAILY 01/19/20 01/19/20 History Patient History Medical History Afib (Chronic) "s/p ablation" Anemia (Chronic) CKD (chronic kidney disease), stage IV (Chronic) COPD (chronic obstructive pulmonary disease) (Chronic) Gallstones GERD (gastroesophageal reflux disease) (Chronic) H/O unilateral nephrectomy (Chronic) "right" Heart disease (Chronic) "mild CAD cath 2007" HTN (hypertension) (Chronic) Hypothyroid (Chronic) Surgical History H/O thyroidectomy (Chronic) History of appendectomy (Chronic) S/P MVR (mitral valve repair) (Chronic) Family History Father Heart disease Social History Preferred Language: Hungarian Communication Ability: Effective Field Sales Associate Required: No Beliefs That Will Affect Care: None Current Living Situation: Personal Care Facility Current Living Situation Comment: [facility] Feels Safe at Home: Yes Safety Concerns: Feels Safe At This Time Smoking Status: Former smoker Hx Alcohol Use: No Hx Substance Use: No Review of Systems Review of Systems: All systems reviewed & are unremarkable except as noted in HPI & below Physical Exam Constitutional: WD/WN, vitals as above well groomed, cooperative and comfortable Eyes: PERRL, conjunctivae normal, anicteric sclerae ENMT: external ear and nose normal, oropharynx normal Respiratory: normal respiratory effort, lungs clear to auscultation Cardiovascular: RRR, no murmur, no edema Gastrointestinal (Abdomen): normal bowel sounds, soft, nontender, no hepatosplenomegaly Skin: no rashes, warm and dry no jaundice Psychiatric: A+Ox3, euthymic affect Lymphatic: no lymphedema Results & Data ([facility]) Vital Signs (Past 12 Hours) Vital Signs Temp Pulse Pulse Resp BP Pulse Ox 01/20/20 07:39 36.9 C 99 H 18 145/72 H 01/20/20 03:52 36.9 C 61 20 136/66 99 01/20/20 00:57 71
[2020-01-20] MEDS ORDERED: PHYTONADIONE 5 MG in SODIUM CHLORIDE 0.9% 50 ML IV ONE (13:00)
--- NOTE | 2020-01-20 13:12 | Cardiology Consultation ---
Date of Consultation January 20, 2020 Assessment & Plan (1) Preop cardiovascular exam: Patient presents with abdominal pain elevated lipase and cholelithiasis on imaging studies. Patient is referred now for consideration of ERCP. Presentation and current findings do not suggest acute coronary syndrome though patient with multiple underlying morbidities. EKG reflects chronic bifascicular heart block and no significant change since at least 2017 Troponins are chronically elevated without evolution in a pattern consistent with underlying renal disease Operative risk will be elevated due to multiple morbidities including renal insufficiency and pulmonary disease No absolute contraindications for current procedure as planned (2) Bifascicular bundle branch block: (3) Elevated troponin level not due myocardial infarction: (4) Cholelithiasis: (5) History of atrial septal defect repair: History of Present Illness Reason for Consultation: Preprocedural evaluation Requesting Physician: Erick Amezcua Attending Physician: Micheal Buckner History of Present Illness Patient is a 74-year-old female referred for preoperative evaluation 1. Mild coronary artery disease by catheterization in 2007. 2. Paroxysmal atrial flutter status post ablation 07/2015 and 02/07/2016 3. Paroxysmal atrial fibrillation 4. Chronic coumadin anticoagulation 5. Tachy-Ronan syndrome, status post pacemaker implantation in 2009, pacemaker removal in 2010 secondary to bacteremia and questionable vegetation. 6. Chronic resting bradycardia 7. History of nonsustained ventricular tachycardia 2017 no evidence recurrence by ongoing monitor via indwelling loop recorder 8. ASD repair late in life. 9. Oxygen and steroid dependent COPD 10. Severe pulmonary hypertension, on chronic oxygen therapy. 11. Right heart failure, cor pulmonale 12. Sleep apnea. BiPAP therapy. 13. Chronic kidney disease stage IV. 14. Chronic bifascicular heart block Patient presents this admission with abdominal pain and discomfort and imaging evidence of cholelithiasis. No cardiac complaints chest pains dizziness or lightheadedness the patient extremely poor historian. She is very sedentary about home and stay currently in extended care facility. Notes no change in overall exercise capacity no worsening edema. Has had nausea and an upset stomach for several days prior to presentation. Has been taking medications and wearing oxygen. No fevers or productive cough Allergies Allergy/AdvReac Type Severity Reaction Status Date / Time levofloxacin Allergy Intermediate HIVES Verified 01/19/20 14:23 Quinolones Allergy Intermediate HIVES Verified 01/19/20 14:23 ranitidine Allergy Intermediate HIVES Verified 01/19/20 14:23 sulfamethoxazole Allergy Intermediate HIVES Verified 01/19/20 14:23 trimethoprim Allergy Intermediate HIVES Verified 01/19/20 14:23 clarithromycin Allergy Mild HIVES, CAN Verified 01/19/20 14:23 TAKE ZITHROMAX W/O PROB amoxicillin Allergy Unknown HIVES Verified 01/19/20 14:23 omeprazole Allergy Unknown HAS HAD Verified 01/19/20 14:23 PROTONIX tomato AdvReac Unknown GI SYMPTOMS Verified 01/19/20 14:23 Pork AdvReac Unknown GI SYMPTOMS Uncoded 01/19/20 14:23 Home Medications Home Medications Medication Instructions Recorded Confirmed Type acetaminophen 650 mg PO BID 01/19/20 01/19/20 History acetaminophen 650 mg PO Q6H PRN 01/19/20 01/19/20 History albuterol sulfate 2 puff INHALATION Q6H PRN 01/19/20 01/19/20 History alum-mag hydroxide-simeth [Mylanta 30 ml PO Q4H PRN 01/19/20 01/19/20 History Maximum Strength] bisacodyl [Dulcolax (bisacodyl)] 10 mg ID DAILY PRN 01/19/20 01/19/20 History brinzolamide 1 drp OPHTHALMIC (EYE) BID 01/19/20 01/19/20 History cinacalcet [Sensipar] 30 mg PO 3XWK 01/19/20 01/19/20 History donepezil 10 mg PO DAILY 01/19/20 01/19/20 History fluticasone propion-salmeterol 1 inh INHALATION Q12H 01/19/20 01/19/20 History [Advair Diskus] fluticasone propionate [Flonase 1 spray INTRANASAL BID 01/19/20 01/19/20 History Allergy Relief] folic acid 1 mg PO DAILY 01/19/20 01/19/20 History glycerin (adult) [Fleet Glycerin 1 supp ID DAILY PRN 01/19/20 01/19/20 History (Adult)] hydrocortisone acetate [Anusol-HC] 25 mg ID BID 01/19/20 01/19/20 History levothyroxine 50 mcg PO DAILY 01/19/20 01/19/20 History loratadine 10 mg PO DAILY 01/19/20 01/19/20 History magnesium hydroxide [Milk of 30 ml PO DAILY PRN 01/19/20 01/19/20 History Magnesia] methyl salicylate-menthol [Bengay 1 applic TOPICAL QID 01/19/20 01/19/20 History Greaseless] metoprolol succinate 12.5 mg PO DAILY 01/19/20 01/19/20 History nitroglycerin 0.4 mg SUBLINGUAL UD PRN 01/19/20 01/19/20 History omeprazole 20 mg PO DAILY 01/19/20 01/19/20 History oxybutynin chloride 5 mg PO DAILY 01/19/20 01/19/20 History polyethylene glycol 3350 [GlycoLax] 17 g PO DAILY PRN 01/19/20 01/19/20 History pravastatin 80 mg PO DAILY 01/19/20 01/19/20 History sennosides-docusate sodium 2 tab-cap PO BID 01/19/20 01/19/20 History [Senokot-S] torsemide 40 mg PO DAILY 01/19/20 01/19/20 History umeclidinium [Incruse Ellipta] 1 inh INHALATION DAILY 01/19/20 01/19/20 History warfarin [Coumadin] 2 mg PO DAILY 01/19/20 01/19/20 History Patient History Medical History Afib (Chronic) "s/p ablation" Anemia (Chronic) CKD (chronic kidney disease), stage IV (Chronic) COPD (chronic obstructive pulmonary disease) (Chronic) Gallstones GERD (gastroesophageal reflux disease) (Chronic) H/O unilateral nephrectomy (Chronic) "right" Heart disease (Chronic) "mild CAD cath 2007" HTN (hypertension) (Chronic) Hypothyroid (Chronic) Surgical History H/O thyroidectomy (Chronic) History of appendectomy (Chronic) S/P MVR (mitral valve repair) (Chronic) Family History Father Heart disease Social History Preferred Language: Armenian Communication Ability: Effective Maintenance Of Way Supervisor Required: No Beliefs That Will Affect Care: None Current Living Situation: Personal Care Facility Current Living Situation Comment: [facility] Feels Safe at Home: Yes Safety Concerns: Feels Safe At This Time Smoking Status: Former smoker Hx Alcohol Use: No Hx Substance Use: No Review of Systems Review of Systems: All systems reviewed & are unremarkable except as noted in HPI & below Limitations on review of systems due to patient's mentation Physical Exam Constitutional: + obese; no acute distress Eyes: PERRL, conjunctivae normal, anicteric sclerae ENMT: external ear and nose normal, oropharynx normal Neck: trachea midline, no thyromegaly Respiratory: Auscultation: + diminished lung sounds Cardiovascular: Rate/Rhythm: regular rate and regular rhythm Results & Data ([facility]) Vital Signs (Past 12 Hours) Vital Signs Temp Pulse Resp BP Pulse Ox 01/20/20 07:39 36.9 C 99 H 18 145/72 H 01/20/20 03:52 36.9 C 61 20 136/66 99 Laboratory Results Laboratory Results - last 24 hr 01/19/20 01/19/20 01/20/20 20:43 Unknown 06:29 WBC 6.88 RBC 3.13 L Hgb 10.6 L Hct 31.7 L MCV 101.3 H MCH 33.9 MCHC 33.4 RDW Std Deviation 51.3 H RDW Coeff of Lc 13.9 Plt Count 159 MPV 13.0 H PT INR Sodium Potassium Chloride Carbon Dioxide Anion Gap BUN Creatinine Est Cr Clr Drug Dosing Est GFR ( Amer) Est GFR (Non-Af Amer) BUN/Creatinine Ratio Glucose Calcium Phosphorus Magnesium Total Bilirubin AST ALT Alkaline Phosphatase Troponin I 0.148 H* Total Protein Albumin Globulin Albumin/Globulin Ratio Lipase TSH Nasal Screen MRSA (PCR) Negative 01/20/20 01/20/20 01/20/20 06:29 06:29 14:14 WBC RBC Hgb Hct MCV MCH MCHC RDW Std Deviation RDW Coeff of Lc Plt Count MPV PT 35.6 H INR 3.8 H Sodium 137 138 Potassium 2.7 L D 3.7 D Chloride 102 104 Carbon Dioxide 26 26 Anion Gap 10.0 8.0 BUN 107 H 97 H Creatinine 2.41 H D 2.23 H Est Cr Clr Drug Dosing 16.5 17.8 Est GFR ( Amer) 22.0 24.2 Est GFR (Non-Af Amer) 19.0 20.9 BUN/Creatinine Ratio 44.3 H 43.4 H Glucose 94 119 H Calcium 6.5 L 6.5 L Phosphorus 3.9 Magnesium 1.7 L Total Bilirubin 0.8 AST 34 ALT 23 Alkaline Phosphatase 60 Troponin I 0.164 H* Total Protein 5.9 L D Albumin 2.6 L Globulin 3.3 Albumin/Globulin Ratio 0.8 L Lipase 645 H TSH 0.605 Nasal Screen MRSA (PCR)
[2020-01-20 14:50] LABS: BUN Creatinine Ratio 43.4 (10-20); Calcium 6.5 mg/dl (8.5-10.1); Creatinine Clr Calc Pharmacy 17.8 ml/min; Est GFR (African American) 24.2; Est GFR (Non-African American) 20.9; Potassium 3.7 mmol/L (3.5-5.1)
--- NOTE | 2020-01-20 14:58 | Electrocardiogram Report ---
Test Reason : Blood Pressure : / mmHG Vent. Rate : 064 BPM Atrial Rate : 064 BPM P-R Int : 194 ms QRS Dur : 178 ms QT Int : 546 ms P-R-T Axes : 052 -51 -16 degrees QTc Int : 563 ms Normal sinus rhythm Right bundle branch block Left anterior fascicular block Bifascicular block T wave abnormality, consider lateral ischemia Abnormal ECG When compared with ECG of 19-JAN-2020 12:40, T wave inversion now evident in Inferior leads Confirmed by Lenni Harrison ([id number]) on 01/20/2020 2:58:37 PM Referred By: [facility] Confirmed By:Josh Harrison
[2020-01-20] MEDS: metroNIDAZOLE 500 MG/100 ML BAG IV SCH ×2 (15:33→21:28)
--- NOTE | 2020-01-20 20:27 | Hospitalist Progress Note ---
Date of Service January 20, 2020 Assessment & Plan (1) Pancreatitis: suspect gallstone in etiology given the presence of gallstones on imaging. lipase mildly elevated, and there is pancreatic inflammation on CT. Cont supportive care. Recheck lipase in am. appreciate GI consultation. (2) Cholelithiasis: RUQ u/s confirms gallstones but does not suggest acute cholecystitis. GI and gen surg have both seen. Very poor operative candidate for lap flor given her numerous comorbidities. for now no plans for lap flor - clinical course to be monitored carefully. allow clear liquid diet. remains on cefoxitin and flagyl - if cholecystitis not suspected - d/c ? (3) Elevated troponin level not due myocardial infarction: likely myocardial demand ischemia in setting of acute pancreatitis (4) Cirrhosis: etiology? due to CONSTANTINO? "cardiac cirrhosis"? other? compensated at this time (5) Paroxysmal atrial fibrillation: INR elevated at presentation; given vitamin K repeat INR in am rates controlled remains in NSR (6) CKD (chronic kidney disease), stage IV: Cr baseline in the 2 to 2.5 range repeat BMP am (7) H/O unilateral nephrectomy: noted (8) Hypothyroid: TSH compensated cont synthroid (9) HTN (hypertension): BPs controlled (10) GERD (gastroesophageal reflux disease): cont PPI (11) COPD (chronic obstructive pulmonary disease): with resulting chronic hypoxic resp failure cont NC O2 not in exacerbation at this time (12) Chronic systolic CHF (congestive heart failure): compensated EF on prior echo 45-50% cont BB judicious use of IV fluids (13) Chronic respiratory failure with hypoxia: stable, on NC O2 (14) Hypokalemia: replace serial labs (15) Hypomagnesemia: replace serial labs (16) DVT prophylaxis: warfarin patient will need PT/OT family updated at bedside today Admission and Anticipated Discharge Date Admission Date: January 19, 2020 Subjective patient very poor historian. she was able to tell me that her "stomach had been hurting" earlier this week but that it was better now. she confirmed she is on NC O2 continuously. tele normal overnight. Review of Systems Constitutional: no fever and no chills Respiratory: no cough and no dyspnea Cardiovascular: no chest pain Gastrointestinal: no nausea and no vomiting Physical Exam Constitutional: no acute distress ENMT: external ear and nose normal, oropharynx normal Respiratory: normal respiratory effort, lungs clear to auscultation Auscultation: + diminished lung sounds (bases ) Cardiovascular: Rate/Rhythm: regular rate and regular rhythm Heart Sounds: normal S1 and normal S2 Vessels: posterior tibial pulses present and dorsalis pedis pulses present; no JVD Extremities: no edema Gastrointestinal (Abdomen): Inspection/Auscultation: normal bowel sounds; abdomen not distended Percussion/Palpation: + abdomen tender (mild - RUQ - w/ deep palpation) and abdomen soft; no guarding and no hepatosplenomegaly Psychiatric: Orientation: alert and oriented x 3 Results & Data ([facility]) Vital Signs (Past 12 Hours) Vital Signs Temp Pulse Pulse Resp BP Pulse Ox 01/20/20 19:17 37.6 C H 73 20 114/70 97 01/20/20 15:27 63 01/20/20 15:19 36.8 C 64 20 137/74 96 01/20/20 13:00 36.8 C 58 L 16 111/66 98 Laboratory Results Laboratory Results - last 24 hr 01/19/20 01/19/20 01/20/20 20:43 Unknown 06:29 WBC 6.88 RBC 3.13 L Hgb 10.6 L Hct 31.7 L MCV 101.3 H MCH 33.9 MCHC 33.4 RDW Std Deviation 51.3 H RDW Coeff of Lc 13.9 Plt Count 159 MPV 13.0 H PT INR Sodium Potassium Chloride Carbon Dioxide Anion Gap BUN Creatinine Est Cr Clr Drug Dosing Est GFR ( Amer) Est GFR (Non-Af Amer) BUN/Creatinine Ratio Glucose Calcium Phosphorus Magnesium Total Bilirubin AST ALT Alkaline Phosphatase Troponin I 0.148 H* Total Protein Albumin Globulin Albumin/Globulin Ratio Lipase TSH Nasal Screen MRSA (PCR) Negative 01/20/20 01/20/20 01/20/20 06:29 06:29 14:14 WBC RBC Hgb Hct MCV MCH MCHC RDW Std Deviation RDW Coeff of Lc Plt Count MPV PT 35.6 H INR 3.8 H Sodium 137 138 Potassium 2.7 L D 3.7 D Chloride 102 104 Carbon Dioxide 26 26 Anion Gap 10.0 8.0 BUN 107 H 97 H Creatinine 2.41 H D 2.23 H Est Cr Clr Drug Dosing 16.5 17.8 Est GFR ( Amer) 22.0 24.2 Est GFR (Non-Af Amer) 19.0 20.9 BUN/Creatinine Ratio 44.3 H 43.4 H Glucose 94 119 H Calcium 6.5 L 6.5 L Phosphorus 3.9 Magnesium 1.7 L Total Bilirubin 0.8 AST 34 ALT 23 Alkaline Phosphatase 60 Troponin I 0.164 H* Total Protein 5.9 L D Albumin 2.6 L Globulin 3.3 Albumin/Globulin Ratio 0.8 L Lipase 645 H TSH 0.605 Nasal Screen MRSA (PCR) PG Care Time/CCT Total # of Minutes Spent Total Time Spent with Patient: Total time spent is greater than 50% in coordination of care (as documented) at patient's floor/unit and/or counseling patient: Coding Level of Care Code 37556 Subseq Hosp Care Lvl 3 Diagnoses Pancreatitis K85.10 Chronicity: acute Pancreatitis type: biliary Acute pancreatitis complication: unspecified Cholelithiasis K80.20 Cholelithiasis location: gallbladder Cholecystitis presence: without cholecystitis Elevated troponin level not due myocardial infarction R79.89 Cirrhosis K74.60 Paroxysmal atrial fibrillation I48.0 CKD (chronic kidney disease), stage IV N18.4 H/O unilateral nephrectomy Z90.5 Hypothyroid E03.9 HTN (hypertension) I10 GERD (gastroesophageal reflux disease) K21.9 COPD (chronic obstructive pulmonary disease) J44.9 Chronic systolic CHF (congestive heart failure) I50.22 Chronic respiratory failure with hypoxia J96.11 Hypokalemia E87.6 Hypomagnesemia E83.42 DVT prophylaxis Z29.9 (1) Pancreatitis Chronicity: acute Pancreatitis type: biliary Acute pancreatitis complication: unspecified Qualified Code(s): K85.10 - Biliary acute pancreatitis without necrosis or infection (2) Cholelithiasis Cholelithiasis location: gallbladder Cholecystitis presence: without cholecystitis
[2020-01-21] MEDS: LEVOTHYROXINE SODIUM 50 MCG TABLET PO SCH (06:17)
[2020-01-21] MEDS: LACTATED RINGER'S 1,000 ML IV SCH (06:20)
[2020-01-21 06:24] LABS: Mean Corpuscular Hgb Conc 33.7 g/dL (32-36)
[2020-01-21 06:33] LABS: INR 1.7 (0.9-1.1); Prothrombin Time 16.7 Seconds (9.0-12.0)
[2020-01-21 06:58] LABS: Albumin Level 2.4 gm/dl (3.4-5.0); BUN Creatinine Ratio 37.5 (10-20); Calcium 6.3 mg/dl (8.5-10.1); Creatinine Clr Calc Pharmacy 20.8 ml/min; Est GFR (African American) 29.4; Est GFR (Non-African American) 25.3; Potassium 3.9 mmol/L (3.5-5.1)
[2020-01-21 07:00] LABS: Albumin Globulin Ratio 0.8 (0.9-2); Total Protein 5.4 gm/dl (6.4-8.2)
[2020-01-21 07:03] LABS: Hematocrit (blood only) 27.9 % (37-47); Hemoglobin 9.4 g/dL (12.0-16.0); Mean Corpuscular Hemoglobin 34.8 pg (25-34); Mean Corpuscular Volume 103.3 fL (80-100); Mean Platelet Volume 13.3 fL (7.4-10.4); Platelet Count 125 K/uL (130-400); RDW Coefficient of Variation 14.1 % (11.5-14.5); White Blood Count 5.99 K/uL (4.8-10.8)
[2020-01-21 07:04] LABS: Basophils # (auto) 0.03 K/uL (0-0.2); Basophils % (auto) 0.5 %; Eosinophils # (auto) 0.08 K/uL (0-0.5); Eosinophils % (auto) 1.3 %; Lymphocytes # (auto) 1.16 K/uL (1.2-3.4); Lymphocytes % (auto) 19.4 %; Monocytes # (auto) 0.71 K/uL (0.11-0.59); Monocytes % (auto) 11.9 %; Neutrophils # (auto) 4.01 K/uL (1.4-6.5); Neutrophils % (auto) 66.9 %; Platelet Estimate Decreased (Normal)
[2020-01-21] MEDS: BRINZOLAMIDE (AZOPT) OPS 10 ML BTL OP SCH ×2 (07:09→21:13)
[2020-01-21] MEDS: FLUTICASONE/VILANTEROL 100/25MCG 14 PUFFS/INHALER INH SCH (07:09)
[2020-01-21] MEDS: UMECLIDINIUM BROMIDE 62.5MCG/BLISTER 7 PUFFS/INHALER INH SCH (07:09)
[2020-01-21] MEDS: FLUTICASONE PROPIONATE NA SPR 16 GM BTL NAE SCH ×2 (07:09→21:13)
[2020-01-21] MEDS: METOPROLOL SUCC 25MG EXT REL TAB PO SCH (07:10)
[2020-01-21] MEDS: DONEPEZIL HCL 10 MG TAB PO SCH (07:10)
[2020-01-21] MEDS: HYDROCORTISONE ACETATE 25 MG SUPP PR SCH ×2 (07:10→21:14)
[2020-01-21] MEDS: POTASSIUM CHLORIDE 20 MEQ TABCR PO SCH (07:10)
[2020-01-21] MEDS: PANTOprazole 40 MG TAB PO SCH (07:10)
[2020-01-21] MEDS: OXYBUTYNIN CHLORIDE XL 5 MG TABCR PO SCH (07:10)
[2020-01-21] MEDS: PRAVASTATIN SOD 40 MG TAB PO SCH (07:10)
[2020-01-21] MEDS: FOLIC ACID 1 MG TAB PO SCH (07:10)
[2020-01-21] MEDS: metroNIDAZOLE 500 MG/100 ML BAG IV SCH ×3 (07:47→21:10)
--- NOTE | 2020-01-21 08:50 | Gastroenterology Progress Note ---
Date of Service January 21, 2020 Assessment & Plan (1) Cholelithiasis: (2) Cirrhosis: (3) Pancreatitis: Pt is a 74 y/o female w RUQ abd pain, n/v x 1 weeks, labs and imaging studies indicate pancreatitis ? gallstone related. Borderline gallbladder wall thickening w/o obvious cholecystitis. CBD 6mm, w/o choledocholithiasis noted on u/s. Liver suspicious for cirrhosis. LFTs remain normal. - Continue IV antibx - LR IVF resuscitation - Keep NPO. Plan for EUS eval this afternoon by Dr. Silverman - Surgery following, no surgical plans as this time ; recommend tertiary care transfer if concerning for cholecystitis symptoms for perc tube drain placement - I attempted to call pt's daughter and to review plans with them, wrong numbers. Admission and Anticipated Discharge Date Admission Date: January 19, 2020 Supervising Physician Co-Signing Physician Notes I performed a history and physical examination of the patient today, including specifically on physical exam - soft abdomen. I have discussed the patient's management with the advanced practitioner. Please refer to the nurse practitioner's note for the documented findings and plan of care. EUS/ERCP today Subjective Pt report having diarrhea and abd cramping this morning. Denies n/v, tolerated CL diet. However still having RUQ abd pain Review of Systems Review of Systems: All systems reviewed & are unremarkable except as noted in HPI & below Physical Exam Constitutional: WD/WN, vitals as above well groomed, cooperative and comfortable Eyes: PERRL, conjunctivae normal, anicteric sclerae ENMT: external ear and nose normal, oropharynx normal Respiratory: normal respiratory effort, lungs clear to auscultation Cardiovascular: RRR, no murmur, no edema Gastrointestinal (Abdomen): Inspection/Auscultation: normal bowel sounds Percussion/Palpation: + abdomen tender (RUQ) and abdomen soft Skin: no rashes, warm and dry no jaundice Psychiatric: A+Ox3, euthymic affect Lymphatic: no lymphedema Results & Data ([facility]) Vital Signs (Past 12 Hours) Vital Signs Temp Pulse Pulse Resp BP BP Pulse Ox 01/21/20 07:22 36.9 C 56 L 18 146/55 H 97 01/21/20 07:17 36.8 C 74 20 88/55 L 98 01/21/20 05:19 67 01/21/20 03:00 36.8 C 58 L 18 103/64 100 01/21/20 00:00 36.9 C 66 18 123/69 99 01/20/20 22:18 36.8 C 97 H 20 120/78 99 (1) Pancreatitis Acute pancreatitis complication: unspecified Chronicity: acute Pancreatitis type: biliary Qualified Code(s): K85.10 - Biliary acute pancreatitis without necrosis or infection (2) Cholelithiasis Cholecystitis presence: without cholecystitis Cholelithiasis location: gallbladder
[2020-01-21] MEDS ORDERED: DICYCLOMINE HCL 10 MG CAP PO ONE (09:15)
--- NOTE | 2020-01-21 11:41 | Cardiology Progress Note ---
Date of Service January 21, 2020 Assessment & Plan (1) Preop cardiovascular exam: Patient presents with abdominal pain elevated lipase and cholelithiasis on imaging studies. Patient is referred now for consideration of ERCP. Presentation and current findings do not suggest acute coronary syndrome though patient with multiple underlying morbidities. EKG reflects chronic bifascicular heart block and no significant change since at least 2017 Troponins are chronically elevated without evolution in a pattern consistent with underlying renal disease Transient wide-complex tachycardia noted this morning likely atrial tachycardia with aberrancy given conduction abnormalities. No symptoms or complaints. Would not increase beta-blockers given resting bradycardia past pacemaker requirement Patient hemodynamically stable persistent elevation in lipase Operative risk will be elevated due to multiple morbidities including renal insufficiency and pulmonary disease No absolute contraindications for current procedure as planned (2) Bifascicular bundle branch block: Chronic bifascicular heart block with prior pacemaker and pacemaker removal no progression in disease (3) Elevated troponin level not due myocardial infarction: (4) Cholelithiasis: (5) History of atrial septal defect repair: Subjective Patient was seen and examined, chart, medications, telemetry reviewed Complaining of right upper quadrant pain and diarrhea this morning. No cardiac complaints. No chest pains or dizziness. No lightheadedness. Telemetry with one run of wide-complex tachycardia this morning asymptomatic ally. Hemodynamically stable with mildly elevated heart rate Physical Exam Constitutional: + obese; no acute distress Eyes: PERRL, conjunctivae normal, anicteric sclerae ENMT: external ear and nose normal, oropharynx normal Neck: trachea midline, no thyromegaly Respiratory: Auscultation: + diminished lung sounds Cardiovascular: Rate/Rhythm: regular rate and regular rhythm Heart Sounds: normal S1 and normal S2; no murmur Vessels: no JVD and no carotid bruit Gastrointestinal (Abdomen): Percussion/Palpation: + abdomen tender (Mild right upper quadrant tenderness) and abdomen soft Musculoskeletal: no cyanosis or clubbing, extremities motor strength 5/5 Skin: no rashes, warm and dry Neurologic: PERRL, EOMI, accommodation nl, no face palsy, no dysarthria Psychiatric: A+Ox3, euthymic affect Results & Data Vital Signs (Past 12 Hours) Vital Signs Temp Pulse Pulse Resp BP BP Pulse Ox 01/21/20 11:21 36.6 C 98 H 20 120/74 93 01/21/20 07:22 36.9 C 56 L 18 146/55 H 97 01/21/20 07:17 36.8 C 74 20 88/55 L 98 01/21/20 05:19 67 01/21/20 03:00 36.8 C 58 L 18 103/64 100 01/21/20 00:00 36.9 C 66 18 123/69 99 Laboratory Results Laboratory Results - last 24 hr 01/20/20 01/21/20 01/21/20 14:14 05:57 05:57 WBC RBC Hgb Hct MCV MCH MCHC RDW Std Deviation RDW Coeff of Lc Plt Count MPV Immature Gran % (Auto) Neut % (Auto) Lymph % (Auto) Dickenson % (Auto) Eos % (Auto) Baso % (Auto) Immature Gran # (Auto) Neut # (Auto) Lymph # (Auto) Dickenson # (Auto) Eos # (Auto) Baso # (Auto) Platelet Estimate PT 16.7 H INR 1.7 H Sodium 138 142 Potassium 3.7 D 3.9 Chloride 104 112 H Carbon Dioxide 26 25 Anion Gap 8.0 5.0 BUN 97 H 71 H Creatinine 2.23 H 1.90 H D Est Cr Clr Drug Dosing 17.8 20.8 Est GFR ( Amer) 24.2 29.4 Est GFR (Non-Af Amer) 20.9 25.3 BUN/Creatinine Ratio 43.4 H 37.5 H Glucose 119 H 96 Calcium 6.5 L 6.3 L Total Bilirubin 1.0 AST 30 ALT 22 Alkaline Phosphatase 58 Total Protein 5.4 L Albumin 2.4 L Globulin 3.0 Albumin/Globulin Ratio 0.8 L Lipase 543 H 01/21/20 05:57 WBC 5.99 RBC 2.70 L Hgb 9.4 L Hct 27.9 L MCV 103.3 H MCH 34.8 H MCHC 33.7 RDW Std Deviation 53.0 H RDW Coeff of Lc 14.1 Plt Count 125 L MPV 13.3 H Immature Gran % (Auto) 0.0 Neut % (Auto) 66.9 Lymph % (Auto) 19.4 Dickenson % (Auto) 11.9 Eos % (Auto) 1.3 Baso % (Auto) 0.5 Immature Gran # (Auto) 0.00 Neut # (Auto) 4.01 Lymph # (Auto) 1.16 L Dickenson # (Auto) 0.71 H Eos # (Auto) 0.08 Baso # (Auto) 0.03 Platelet Estimate Decreased L PT INR Sodium Potassium Chloride Carbon Dioxide Anion Gap BUN Creatinine Est Cr Clr Drug Dosing Est GFR ( Amer) Est GFR (Non-Af Amer) BUN/Creatinine Ratio Glucose Calcium Total Bilirubin AST ALT Alkaline Phosphatase Total Protein Albumin Globulin Albumin/Globulin Ratio Lipase (1) Cholelithiasis Cholecystitis presence: without cholecystitis Cholelithiasis location: gallbladder
--- NOTE | 2020-01-21 12:10 | Anesthesiology Consultation ---
Date of Service January 21, 2020 Assessment & Plan (1) Encounter for pre-operative examination: Chart Review Chart Review: Acceptable Risk for Surgery History Surgery Operation Date: 01/21/20 08:45 Proposed Procedures p Endoscopic Ultrasonography Upper - Amber Silverman MD Height/Weight Height: 4 ft 11 in Weight: 63.9 kg Allergies Allergy/AdvReac Type Severity Reaction Status Date / Time levofloxacin Allergy Intermediate HIVES Verified 01/19/20 14:23 Quinolones Allergy Intermediate HIVES Verified 01/19/20 14:23 ranitidine Allergy Intermediate HIVES Verified 01/19/20 14:23 sulfamethoxazole Allergy Intermediate HIVES Verified 01/19/20 14:23 trimethoprim Allergy Intermediate HIVES Verified 01/19/20 14:23 clarithromycin Allergy Mild HIVES, CAN Verified 01/19/20 14:23 TAKE ZITHROMAX W/O PROB amoxicillin Allergy Unknown HIVES Verified 01/19/20 14:23 omeprazole Allergy Unknown HAS HAD Verified 01/19/20 14:23 PROTONIX tomato AdvReac Unknown GI SYMPTOMS Verified 01/19/20 14:23 Pork AdvReac Unknown GI SYMPTOMS Uncoded 01/19/20 14:23 Medications Home Medications Medication Instructions Recorded Confirmed Last Taken acetaminophen 650 mg PO BID 01/19/20 01/19/20 01/19/20 acetaminophen 650 mg PO Q6H PRN 01/19/20 01/19/20 Unknown albuterol sulfate 2 puff INHALATION Q6H PRN 01/19/20 01/19/20 Unknown alum-mag hydroxide-simeth [Mylanta 30 ml PO Q4H PRN 01/19/20 01/19/20 Unknown Maximum Strength] bisacodyl [Dulcolax (bisacodyl)] 10 mg [place] DAILY PRN 01/19/20 01/19/20 Unknown brinzolamide 1 drp OPHTHALMIC (EYE) BID 01/19/20 01/19/20 01/18/20 cinacalcet [Sensipar] 30 mg PO 3XWK 01/19/20 01/19/20 01/18/20 donepezil 10 mg PO DAILY 01/19/20 01/19/20 01/18/20 fluticasone propion-salmeterol 1 inh INHALATION Q12H 01/19/20 01/19/20 01/18/20 [Advair Diskus] fluticasone propionate [Flonase 1 spray INTRANASAL BID 01/19/20 01/19/20 01/18/20 Allergy Relief] folic acid 1 mg PO DAILY 01/19/20 01/19/20 01/18/20 glycerin (adult) [Fleet Glycerin 1 supp [place] DAILY PRN 01/19/20 01/19/20 Unknown (Adult)] hydrocortisone acetate [Anusol-HC] 25 mg [place] BID 01/19/20 01/19/20 01/18/20 levothyroxine 50 mcg PO DAILY 01/19/20 01/19/20 01/19/20 loratadine 10 mg PO DAILY 01/19/20 01/19/20 01/18/20 magnesium hydroxide [Milk of 30 ml PO DAILY PRN 01/19/20 01/19/20 Unknown Magnesia] methyl salicylate-menthol [Bengay 1 applic TOPICAL QID 01/19/20 01/19/20 01/18/20 Greaseless] metoprolol succinate 12.5 mg PO DAILY 01/19/20 01/19/20 01/18/20 nitroglycerin 0.4 mg SUBLINGUAL UD PRN 01/19/20 01/19/20 Unknown omeprazole 20 mg PO DAILY 01/19/20 01/19/20 01/19/20 oxybutynin chloride 5 mg PO DAILY 01/19/20 01/19/20 01/18/20 polyethylene glycol 3350 [GlycoLax] 17 g PO DAILY PRN 01/19/20 01/19/20 01/13/20 pravastatin 80 mg PO DAILY 01/19/20 01/19/20 01/19/20 sennosides-docusate sodium 2 tab-cap PO BID 01/19/20 01/19/20 01/18/20 [Senokot-S] torsemide 40 mg PO DAILY 01/19/20 01/19/20 01/18/20 umeclidinium [Incruse Ellipta] 1 inh INHALATION DAILY 01/19/20 01/19/20 01/18/20 warfarin [Coumadin] 2 mg PO DAILY 01/19/20 01/19/20 01/18/20 Active Medications Generic Name Dose Route Start Last Admin Trade Name Freq PRN Reason Stop Dose Admin Brinzolamide 1 drops 01/19/20 21:00 01/21/20 07:09 Azopt OP 02/18/20 20:59 1 drops BID ETSHER Administration Donepezil HCl 10 mg 01/20/20 09:00 01/21/20 07:10 Aricept PO 02/19/20 08:59 10 mg DAILY ESTHER Administration Fluticasone Propionate 1 sprays 01/19/20 21:00 01/21/20 07:09 Flonase PAULIE 02/18/20 20:59 1 sprays BID ESTHER Administration Fluticasone/Vilanterol 1 puffs 01/20/20 09:00 01/21/20 07:09 Breo Ellipta 100/25 Mcg Inh INH 02/19/20 08:59 1 puffs DAILY ESTHER Administration Folic Acid 1 mg 01/20/20 09:00 01/21/20 07:10 Folvite PO 02/19/20 08:59 1 mg DAILY ESTHER Administration Hydrocortisone 25 mg 01/19/20 21:00 01/21/20 07:10 Anusol Hc [place] 01/27/20 20:59 25 mg BID ESTHER Administration Lactated Ringer's 1,000 mls @ 50 mls/hr 01/19/20 17:56 01/21/20 06:20 Lr IV 02/18/20 17:55 50 mls/hr .Q20H ESTHER Administration Cefoxitin Sodium 1,000 mg/ 60 mls @ 100 mls/hr 01/20/20 15:30 01/21/20 09:34 Dextrose IV 01/30/20 15:29 Infused Q12 ESTHER Infusion Protocol Metronidazole 500 mg in 100 mls @ 100 mls/hr 01/20/20 15:00 01/21/20 08:48 Flagyl IV 01/30/20 14:59 Infused Q8H ESTHER Infusion Levothyroxine Sodium 50 mcg 01/20/20 06:30 01/21/20 06:17 Synthroid PO 02/19/20 06:29 50 mcg DAILYBB ESTHER Administration Metoprolol Succinate 12.5 mg 01/20/20 09:00 01/21/20 07:10 Toprol Xl PO 02/19/20 08:59 12.5 mg DAILY ESTHER Administration Miscellaneous 1 ea 01/20/20 00:00 01/21/20 07:01 Order Awaiting Action N/A 02/19/20 00:00 Not Given QS ESTHER Oxybutynin Chloride 5 mg 01/20/20 09:00 01/21/20 07:10 Ditropan Xl PO 02/19/20 08:59 5 mg DAILY ESTHER Administration Pantoprazole Sodium 40 mg 01/20/20 09:00 01/21/20 07:10 Protonix PO 02/19/20 08:59 40 mg DAILY ESTHER Administration Pravastatin Sodium 80 mg 01/20/20 09:00 01/21/20 07:10 Pravachol PO 02/19/20 08:59 80 mg DAILY ESTHER Administration Umeclidinium [place] 1 puffs 01/20/20 09:00 01/21/20 07:09 Incruse Ellipta INH 02/19/20 08:59 1 puffs DAILY ESTHER Administration Past Medical History Medical History (Updated 01/21/20 @ 12:10 by Carlos Paul MD) Afib (Chronic) "s/p ablation" Anemia (Chronic) CKD (chronic kidney disease), stage IV (Chronic) COPD (chronic obstructive pulmonary disease) (Chronic) Gallstones GERD (gastroesophageal reflux disease) (Chronic) H/O unilateral nephrectomy (Chronic) "right" Heart disease (Chronic) "mild CAD cath 2007" HTN (hypertension) (Chronic) Hypothyroid (Chronic) Pulmonary hypertension Past Family History Family History Father Heart disease Past Surgical History Surgical History (Updated 01/20/20 @ 18:17 by Gianfranco Lay MD) H/O thyroidectomy (Chronic) History of appendectomy (Chronic) Social History Smoking Status: Former smoker Hx Alcohol Use: No Hx Substance Use: No Physical Exam Vital Signs Last Vital Signs Temp 36.6 C 01/21/20 11:21 Pulse 98 H 01/21/20 11:21 Resp 20 01/21/20 11:21 BP 120/74 01/21/20 11:21 Pulse Ox 93 01/21/20 11:21 Testing Laboratory Results 01/21/20 05:57 01/21/20 05:57 PT 16.7 Seconds (9.0-12.0) H 01/21/20 05:57 INR 1.7 (0.9-1.1) H 01/21/20 05:57 APTT 51.7 Seconds (21.0-31.0) H* 01/19/20 12:45 Urine Color Yellow 01/19/20 15:35 Urine Appearance Clear (Clear) 01/19/20 15:35 Urine pH 5.0 (4.5-7.5) 01/19/20 15:35 Ur Specific [place] 1.013 (1.000-1.030) 01/19/20 15:35 Urine Protein Negative (Negative) 01/19/20 15:35 Urine Glucose (UA) Negative (Negative) 01/19/20 15:35 Urine Ketones Negative (Negative) 01/19/20 15:35 Urine Nitrite Negative (Negative) 01/19/20 15:35 Ur Leukocyte Esterase Negative (Negative) 01/19/20 15:35 Electrocardiogram Date: 01/21/20 Findings: + SB @ (58 bifascicular block - no change from prior) Chest X-Ray Date: 01/19/20 Findings: + cardiomegaly (mild)
[2020-01-21] MEDS ORDERED: ONDANSETRON INJ 2 MG/ML 2 ML VIAL IV PRN (14:44)
[2020-01-21] MEDS ORDERED: fentaNYL citrate 100 MCG/2 ML VIAL IV PRN (14:44)
[2020-01-21] MEDS ORDERED: ALBUTEROL 0.083% NEBU SOLN 3 ML VIAL INH PRN (14:44)
[2020-01-21] MEDS ORDERED: ATROPINE SULFATE 0.1 MG/ML 10ML SYR IV PRN (14:44)
--- NOTE | 2020-01-21 15:01 | History & Physical Bridge Note ---
Date of Service January 21, 2020 History & Physical Bridge Note I have examined the patient, reviewed the History & Physical and in the interval since the performance of the History & Physical I have noted the following changes of clinical significance: no changes noted
[2020-01-21] MEDS ORDERED: GLYCOPYRROLATE 0.2 MG/ML VIAL ONE (15:17)
[2020-01-21] MEDS ORDERED: LIDOCAINE HCL 2% 2 ML VIAL/AMP(20MG/ML) INFIL ONE (15:17)
[2020-01-21] MEDS ORDERED: ONDANSETRON INJ 2 MG/ML 2 ML VIAL ONE (15:17)
[2020-01-21] MEDS ORDERED: PROPOFOL IV EMULSION 10 MG/ML 20 ML VIAL IV ONE ×2 (15:17→16:02)
[2020-01-21] MEDS ORDERED: INDOMETHACIN 50 MG SUPP PR ONE (16:18)
--- NOTE | 2020-01-21 16:21 | Operative Report ---
Post Operative Report Pre & Post Diagnosis Operation Date: 01/21/20 08:45 <No data on this case meets the specified criteria> I identified the patient and participated in the time-out.: Yes Procedure Operation Date: 01/21/20 08:45 <No data on this case meets the specified criteria> Surgeon Amber Silverman MD Product Trainer None Estimated Blood Loss 0 Findings See Below (CBD stone removed, stents placed) Specimens None Description of Procedure EUS/ERCP I attest to the content of the Intraoperative Record and any orders documented therein. Any exceptions are noted below.
[2020-01-21] MEDS ORDERED: PHYTONADIONE 5 MG in SODIUM CHLORIDE 0.9% 50 ML IV ONE (16:45)
--- NOTE | 2020-01-21 16:52 | Anesthesiology Progress Note ---
Date of Service January 21, 2020 Anesthesia Post Procedure Vital Signs Vital Signs: Temp Pulse Pulse Pulse Resp BP BP 01/21/20 16:45 36.8 C 59 L 18 111/52 L 01/21/20 16:35 61 18 103/51 L 01/21/20 16:27 36.8 C 63 18 106/73 01/21/20 14:24 37.1 C 57 L 20 132/51 L 01/21/20 11:21 36.6 C 98 H 20 120/74 01/21/20 07:22 36.9 C 56 L 18 146/55 H 01/21/20 07:17 36.8 C 74 20 88/55 L 01/21/20 05:19 67 01/21/20 03:00 36.8 C 58 L 18 103/64 01/21/20 00:00 36.9 C 66 18 123/69 01/20/20 22:18 36.8 C 97 H 20 120/78 01/20/20 19:17 37.6 C H 73 20 114/70 Pulse Ox 01/21/20 16:45 95 01/21/20 16:35 96 01/21/20 16:27 100 01/21/20 14:24 100 01/21/20 11:21 93 01/21/20 07:22 97 01/21/20 07:17 98 01/21/20 05:19 01/21/20 03:00 100 01/21/20 00:00 99 01/20/20 22:18 99 01/20/20 19:17 97 Transfer of Care Handoff Completed per policy Notes Mental Status: alert / awake / arousable Patient Amnestic to Procedure: Yes Nausea / Vomiting: adequately controlled Pain: adequately controlled Airway Patency, RR, SpO2: stable & adequate BP & HR: stable & adequate Hydration State: stable & adequate Anesthetic Complications: no major complications apparent
[2020-01-21] MEDS ORDERED: GLUCAGON FOR INJ 1 MG VIAL ONE (17:19)
--- NOTE | 2020-01-21 17:26 | GI REPORT ---
Patient Name: Lea Humphries Procedure Date: 01/21/2020 2:58 PM Date of : 1945 Admit Type: Inpatient Age: 74 Gender: Female Attending MD: Amber Silverman MD Procedure: Upper GI endoscopy Providers: Amber Silverman MD Referring MD: Micheal Buckner Indications: Epigastric abdominal pain Medicines: Propofol per Anesthesia Complications: No immediate complications. Estimated Blood Loss: Estimated blood loss: none. Procedure: Pre-Anesthesia Assessment: - Prior to the procedure, a History and Physical was performed, and patient medications, allergies and sensitivities were reviewed. The patient's tolerance of previous anesthesia was reviewed. - The risks and benefits of the procedure and the sedation options and risks were discussed with the patient. All questions were answered and informed consent was obtained. - Patient identification and proposed procedure were verified prior to the procedure by the physician and the nurse. The procedure was verified in the procedure room. - Pre-procedure physical examination revealed no contraindications to sedation. After obtaining informed consent, the endoscope was passed under direct vision. Throughout the procedure, the patient's blood pressure, pulse, and oxygen saturations were monitored continuously. The Endoscope was introduced through the mouth, and advanced to the second part of duodenum. The upper GI endoscopy was accomplished without difficulty. The patient tolerated the procedure well. Findings: The examined esophagus was normal. The Z-line was regular and was found 40 cm from the incisors. The entire examined stomach was normal. The duodenal bulb and second portion of the duodenum were normal. Impression: - Normal esophagus. - Z-line regular, 40 cm from the incisors. - Normal stomach. - Normal duodenal bulb and second portion of the duodenum. Recommendation: - Perform an upper endoscopic ultrasound (UEUS) today. Amber Silverman MD 01/21/2020 5:25:46 PM This report has been signed electronically. Note Initiated On: 01/21/2020 2:58 PM Number of Addenda: 0 I attest to the content of the Intraoperative Record and orders documented therein, exceptions below {[id number]}
--- NOTE | 2020-01-21 17:34 | GI REPORT ---
Patient Name: Lea Humphries Procedure Date: 01/21/2020 2:54 PM Date of : 1945 Admit Type: Inpatient Age: 74 Gender: Female Attending MD: Amber Silverman MD Procedure: Upper EUS Providers: Amber Silverman MD Referring MD: Micheal Buckner Indications: Suspected choledocholithiasis, Acute pancreatitis Medicines: Propofol per Anesthesia Complications: No immediate complications. Estimated Blood Loss: Estimated blood loss: none. Procedure: Pre-Anesthesia Assessment: - Prior to the procedure, a History and Physical was performed, and patient medications, allergies and sensitivities were reviewed. The patient's tolerance of previous anesthesia was reviewed. - The risks and benefits of the procedure and the sedation options and risks were discussed with the patient. All questions were answered and informed consent was obtained. - Patient identification and proposed procedure were verified prior to the procedure by the physician and the nurse. The procedure was verified in the procedure room. - Pre-procedure physical examination revealed no contraindications to sedation. After obtaining informed consent, the endoscope was passed under direct vision. Throughout the procedure, the patient's blood pressure, pulse, and oxygen saturations were monitored continuously. The scope was introduced through the mouth, and advanced to the second part of duodenum. The upper EUS was accomplished without difficulty. The patient tolerated the procedure well. Findings: ENDOSONOGRAPHIC FINDING: : There was no sign of significant endosonographic abnormality in the ampulla. No masses were identified. One stone was visualized endosonographically in the common bile duct. The stone was round. It was hyperechoic and characterized by shadowing. The CBD measured 5 mm in diameter. Many stones were visualized endosonographically in the gallbladder. They were hyperechoic and characterized by shadowing. There was no sign of significant endosonographic abnormality in the visualized portion of the liver. There was no sign of significant endosonographic abnormality in the entire pancreas. The pancreatic duct measured up to 2 mm in diameter. There was no sign of significant endosonographic abnormality in the visualized portion of the left adrenal gland. There was no sign of significant endosonographic abnormality involving the celiac trunk. Impression: - One stone was visualized endosonographically in the common bile duct. - Many stones were visualized endosonographically in the gallbladder. - There was no sign of significant pathology in the ampulla. - There was no sign of significant pathology in the entire pancreas. Recommendation: - Perform an ERCP today. Amber Silverman MD 01/21/2020 5:33:47 PM This report has been signed electronically. Note Initiated On: 01/21/2020 2:54 PM Number of Addenda: 0 I attest to the content of the Intraoperative Record and orders documented therein, exceptions below {[id number]}
--- NOTE | 2020-01-21 17:44 | GI REPORT ---
Patient Name: Lea Humphries Procedure Date: 01/21/2020 2:59 PM Date of : 1945 Admit Type: Inpatient Age: 74 Gender: Female Attending MD: Amber Silverman MD Procedure: ERCP Providers: Amber Silverman MD Referring MD: Micheal Buckner Indications: Abdominal pain of suspected biliary or pancreatic origin, Abnormal endoscopic ultrasound of the biliary system, For therapy of bile duct stone(s), Gallstone associated acute pancreatitis Medicines: Propofol per Anesthesia Complications: No immediate complications. Estimated Blood Loss: Estimated blood loss: none. Procedure: Pre-Anesthesia Assessment: - Prior to the procedure, a History and Physical was performed, and patient medications, allergies and sensitivities were reviewed. The patient's tolerance of previous anesthesia was reviewed. - The risks and benefits of the procedure and the sedation options and risks were discussed with the patient. All questions were answered and informed consent was obtained. - Patient identification and proposed procedure were verified prior to the procedure by the physician and the nurse. The procedure was verified in the procedure room. - Pre-procedure physical examination revealed no contraindications to sedation. After obtaining informed consent, the scope was passed under direct vision. Throughout the procedure, the patient's blood pressure, pulse, and oxygen saturations were monitored continuously. The scope was introduced through the mouth, and advanced to the duodenum and used to inject contrast into the bile duct. The ERCP was accomplished without difficulty. The patient tolerated the procedure well. Findings: The correctional case manager film was normal. The esophagus was successfully intubated under direct vision. The scope was advanced to a normal major papilla in the descending duodenum without detailed examination of the pharynx, larynx and associated structures, and upper GI tract. The upper GI tract was grossly normal. The ventral pancreatic duct was inadvertently cannulated. The guidewire was kept in place to assist in biliary ductal cannulation. A 0.035 inch straight standard wire was passed into the biliary tree. The Fusion OMNI sphincterotome was passed over the guidewire and the bile duct was then deeply cannulated. Contrast was injected. I personally interpreted the bile duct images. Ductal flow of contrast was adequate. Image quality was adequate. Contrast extended to the main bile duct. Opacification of the main bile duct, gallbladder and left and right hepatic ducts and all intrahepatic branches was successful. The maximum diameter of the ducts was 8 mm. The lower third of the main bile duct contained one stone. The gallbladder contained multiple stones. Biliary sphincterotomy was made with a monofilament traction (standard) sphincterotome using ERBE electrocautery. There was no post-sphincterotomy bleeding. The biliary tree was swept with an 11.5 mm balloon starting at the bifurcation. One stone was removed. No stones remained. One 5 Fr by 9 cm plastic pancreatic stent with a single external pigtail and no internal flaps was placed into the ventral pancreatic duct. Clear fluid flowed through the stent. The stent was in good position. One 10 Fr by 7 cm plastic biliary stent with a single external flap and a single internal flap was placed into the common bile duct. Bile flowed through the stent. The stent was in good position. Indomethacin 100 mg was given via suppository to decrease the risk of post-ERCP pancreatitis (PEP). Impression: - Choledocholithiasis was found. Complete removal was accomplished by biliary sphincterotomy and balloon extraction. - One plastic pancreatic stent was placed into the ventral pancreatic duct. - One plastic biliary stent was placed into the common bile duct. Recommendation: - Return patient to [facility] for ongoing care. - Avoid aspirin and nonsteroidal anti-inflammatory medicines for 5 days. - Clear liquid diet. - Repeat ERCP in 6 weeks to remove stent. - KUB in 3-4 weeks to check migration of the PD stent. - Refer to a surgeon for cholecystectomy this admission given pancreatitis. Amber Silverman MD 01/21/2020 5:44:11 PM This report has been signed electronically. Note Initiated On: 01/21/2020 2:59 PM Number of Addenda: 0 I attest to the content of the Intraoperative Record and orders documented therein, exceptions below {[id number]}
--- NOTE | 2020-01-21 18:10 | Nephrology Progress Note ---
Date of Service January 21, 2020 Assessment & Plan (1) Acute on chronic renal failure: Baseline creatinine 2.0; in setting of solitary kidney after remote R nephrectomy. Prerenal nonoliguric YAZMIN on CKD4 w/ presenting creatinine 01/19 at 2.9, improved to 2.4 this am. Chemistries as below. Some elevated BUN. mild anemia which is stable -stopped FENa labs which are less useful in pt w/ liver cirrhosis, advanced CKD -daily bmp (2) Electrolyte and fluid disorder: hypokalemia resolved as has elevated BUN. Ca even lower otday -OP sensipar not ordered currently and would not at this time restart -will give 2 gm Ca gluconate -agree w/ K rich fluids (w/ at low rate) and with 20 mEq K po tid -cont to hold OP torsemide Admission and Anticipated Discharge Date Admission Date: January 19, 2020 Subjective seen on rounds this am at 0940; npo for OR this afternoon; c/o diarrhea new onset and preceded by crampy abd pain not localized to one spot; no n; no voiding c/o; no change in chronic dypsnea Review of Systems Review of Systems: All systems reviewed & are unremarkable except as noted in HPI & below Physical Exam Constitutional: well developed and well nourished lying flat in bed nad on 02nc Eyes: EOM intact bilaterally ENMT: Ears: no external ear abnormality Nose: no external nose abnormality Mouth: + dry oral mucous membranes Neck: no nuchal rigidity Respiratory: normal respiratory effort Auscultation: + diminished lung sounds Cardiovascular: Rate/Rhythm: regular rhythm and + bradycardic Extremities: no edema Gastrointestinal (Abdomen): Inspection/Auscultation: normal bowel sounds Percussion/Palpation: abdomen soft; abdomen nontender Musculoskeletal: Extremities: strength 5/5 throughout Skin: no rashes, warm and dry Neurologic: reed, fluent speech, no tremor Results & Data ([facility]) Vital Signs (Past 12 Hours) Vital Signs Temp Pulse Pulse Pulse Resp BP BP 01/21/20 17:23 54 L 01/21/20 16:45 36.8 C 59 L 18 111/52 L 01/21/20 16:35 61 18 103/51 L 01/21/20 16:27 36.8 C 63 18 106/73 01/21/20 14:24 37.1 C 57 L 20 132/51 L 01/21/20 11:21 36.6 C 98 H 20 120/74 01/21/20 07:22 36.9 C 56 L 18 146/55 H 01/21/20 07:17 36.8 C 74 20 88/55 L Pulse Ox 01/21/20 17:23 01/21/20 16:45 95 01/21/20 16:35 96 01/21/20 16:27 100 01/21/20 14:24 100 01/21/20 11:21 93 01/21/20 07:22 97 01/21/20 07:17 98 Laboratory Results 01/21/20 05:57 01/21/20 05:57 (1) Acute on chronic renal failure Acute renal failure type: unspecified Chronic kidney disease stage: stage 4 (severe) Qualified Code(s): N17.9 - Acute kidney failure, unspecified; N18.4 - Chronic kidney disease, stage 4 (severe)
--- NOTE | 2020-01-21 18:13 | Fluoroscopy Report ---
FL ERCP biliary ductal CLINICAL HISTORY: ERCP COMPARISON STUDY: None FLUOROSCOPY TIME: 43 seconds NUMBER OF FLUOROSCOPIC IMAGES: 9 FINDINGS: Image intensifier support was utilized for ERCP evaluation. The final image demonstrates a stent within the common bile duct as well as a small caliber stent within the pancreatic duct. IMPRESSION: Image intensifier support for the procedures described above. ACT 112: Negative or not required by law. The above report was generated using voice recognition software. It may contain grammatical, syntax or spelling errors. Electronically signed by: Luis Fernando Keene M.D. 01/21/2020 6:12 PM
[2020-01-21] MEDS ORDERED: CALCIUM GLUCONATE 10% 2,000 MG in SODIUM CHLORIDE 0.9% 50 ML IV ONE (18:30)
--- NOTE | 2020-01-21 19:01 | Electrocardiogram Report ---
Test Reason : Blood Pressure : / mmHG Vent. Rate : 058 BPM Atrial Rate : 058 BPM P-R Int : 190 ms QRS Dur : 164 ms QT Int : 542 ms P-R-T Axes : 110 -48 -29 degrees QTc Int : 532 ms Sinus bradycardia Right bundle branch block Left anterior fascicular block Bifascicular block T wave abnormality, consider lateral ischemia Abnormal ECG When compared with ECG of 20-JAN-2020 07:00, No significant change was found Confirmed by Lenin Harrison ([id number]) on 01/21/2020 7:01:47 PM Referred By: [facility] Confirmed By:Josh Harrison
--- NOTE | 2020-01-21 19:41 | XRay Report ---
XR chest 1V portable HISTORY: 74 years-old Female wheezing; eval for pulmonary edema acute wheezing COMPARISON: Chest radiograph 01/19/2020 TECHNIQUE: Portable AP view of the chest FINDINGS: Cardiomegaly. Pulmonary artery enlargement compatible with pulmonary arterial hypertension redemonstr ated. Loop recorder device is present. Surgical clips and metallic leads are again noted projecting o aliza the central chest. Calcified plaque of the thoracic aortic arch. No pneumothorax, large pleural e ffusion or overt pulmonary edema. Mild bibasilar densities suggest probable atelectasis. No airspace consolidation typical for pneumonia. Degenerative changes of the shoulders and spine. IMPRESSION: 1. Cardiomegaly and pulmonary arterial hypertension redemonstrated. No evidence of overt pulmonary ed mai. 2. Mild bibasilar densities suggest probable atelectasis. ACT 112: Negative or not required by law. The above report was generated using voice recognition software. It may contain grammatical, syntax o r spelling errors. Electronically signed by: Naman Naqvi M.D. 01/21/2020 7:40 PM
--- NOTE | 2020-01-21 20:09 | Hospitalist Progress Note ---
Date of Service January 21, 2020 Assessment & Plan (1) Choledocholithiasis: Patient underwent EGD and ERCP today. EGD was normal. ERCP revealed choledocholithiasis. CBD stones were extracted, and CBD stent along with pancreatic duct stent were deployed. Appreciate Stefanie SALGADO's assistance with this. In light of choledocholithiasis and pancreatitis cholecystectomy should be considered. General surgery has seen and is very poor operative candidate due to numerous comorbidities. Will d/w gen surg tomorrow - should she transfer to tertiary care center for cholecystectomy? Cont cefoxitin and flagyl in meantime. Cont judicious fluids. (2) Pancreatitis: suspect gallstone in etiology given the presence of gallstones on imaging, CBD stones on ERCP today, etc. lipase mildly elevated but slowly improving. there had been pancreatic inflammation on admission CT scan. Cont supportive care. appreciate GI consultation. (3) Cholelithiasis: with choledocholithiasis. Very poor operative candidate for lap flor given her numerous comorbidities. remains on cefoxitin and flagyl. s/p ERCP today - see discussion above. ideally patient has cholecystectomy - will d/w gen surg in am. If not at [facility]? (4) Wide-complex tachycardia: as seen on tele overnight presumably not symptomatic from such felt to be a-tach with aberrancy no Rx monitor (5) Elevated troponin level not due myocardial infarction: likely myocardial demand ischemia in setting of acute pancreatitis no ACS or ischemic symptoms (6) Cirrhosis: etiology? due to CONSTANTINO? "cardiac cirrhosis"? other? compensated at this time (7) Paroxysmal atrial fibrillation: INR elevated at presentation; given vitamin K x 2 for such INR today 1.7 coumadin on hold due to procedures repeat INR am cont metoprolol (8) CKD (chronic kidney disease), stage IV: Cr baseline in the 2 to 2.5 range Cr today 1.9 appreciate nephrology assistance BMP am (9) H/O unilateral nephrectomy: noted (10) Hypothyroid: TSH compensated cont synthroid (11) HTN (hypertension): BPs controlled cont same meds (12) GERD (gastroesophageal reflux disease): cont PPI (13) COPD (chronic obstructive pulmonary disease): with resulting chronic hypoxic resp failure cont NC O2 very wheezy post-ERCP obtained cxr - no complicating pneumonia or edema will place on scheduled duonebs follow (14) Chronic systolic CHF (congestive heart failure): remains compensated cxr without pulmonary edema this evening EF on prior echo 45-50% cont BB judicious use of IV fluids given mildly low EF (15) Chronic respiratory failure with hypoxia: stable, on NC O2 (16) Hypokalemia: replaced and resolved; stop TID KCL replacement bmp am (17) Hypomagnesemia: replaced/resolved (18) Hypocalcemia: after correction for hypoalbuminemia her calcium is still low Dr Stevens gave 2gm calcium gluconate agree with such repeat calcium in am last 25-OH vit D level was low in 03/2019; will repeat am (19) DVT prophylaxis: warfarin; INR today 1.7 since warfarin is being held and INR is trending towards normal will need SCDs or other chemical agent to replace warfarin patient will need PT/OT family updated by phone evening of 01/21 Admission and Anticipated Discharge Date Admission Date: January 19, 2020 Subjective saw patient twice today. first visit she was on bedpan having bowel movement. she complained of frequent diarrhea. 2nd visit she was post-op from ERCP. she was quite confused due to recent sedation. she had no complaints during 2nd visit except for being cold. Review of Systems Respiratory: no cough and no dyspnea Cardiovascular: no chest pain Gastrointestinal: no abdominal pain, no nausea and no vomiting Physical Exam Constitutional: no acute distress ENMT: external ear and nose normal, oropharynx normal Respiratory: no respiratory distress Auscultation: + diminished lung sounds (bases ) and + wheezes (b/l - extensive ) Cardiovascular: Rate/Rhythm: regular rate and regular rhythm Heart Sounds: normal S1 and normal S2 Vessels: posterior tibial pulses present and dorsalis pedis pulses present; no JVD Extremities: no edema Gastrointestinal (Abdomen): Inspection/Auscultation: normal bowel sounds; abdomen not distended Percussion/Palpation: abdomen soft; abdomen nontender, no guarding and no hepatosplenomegaly Psychiatric: Orientation: oriented to person and oriented to place; + not alert (confused ) and + not oriented to time Results & Data ([place]) Vital Signs (Past 12 Hours) Vital Signs Temp Pulse Pulse Pulse Resp BP BP 01/21/20 19:10 36.3 C L 51 L 20 136/67 01/21/20 18:11 36.8 C 60 16 132/80 01/21/20 17:23 54 L 01/21/20 16:45 36.8 C 59 L 18 111/52 L 01/21/20 16:35 61 18 103/51 L 01/21/20 16:27 36.8 C 63 18 106/73 01/21/20 14:24 37.1 C 57 L 20 132/51 L 01/21/20 11:21 36.6 C 98 H 20 120/74 Pulse Ox 01/21/20 19:10 99 01/21/20 18:11 96 01/21/20 17:23 01/21/20 16:45 95 01/21/20 16:35 96 01/21/20 16:27 100 01/21/20 14:24 100 01/21/20 11:21 93 Laboratory Results Laboratory Results - last 24 hr 01/21/20 01/21/20 01/21/20 05:57 05:57 05:57 WBC 5.99 RBC 2.70 L Hgb 9.4 L Hct 27.9 L MCV 103.3 H MCH 34.8 H MCHC 33.7 RDW Std Deviation 53.0 H RDW Coeff of Lc 14.1 Plt Count 125 L MPV 13.3 H Immature Gran % (Auto) 0.0 Neut % (Auto) 66.9 Lymph % (Auto) 19.4 [place] % (Auto) 11.9 Eos % (Auto) 1.3 Baso % (Auto) 0.5 Immature Gran # (Auto) 0.00 Neut # (Auto) 4.01 Lymph # (Auto) 1.16 L [place] # (Auto) 0.71 H Eos # (Auto) 0.08 Baso # (Auto) 0.03 Platelet Estimate Decreased L PT 16.7 H INR 1.7 H Sodium 142 Potassium 3.9 Chloride 112 H Carbon Dioxide 25 Anion Gap 5.0 BUN 71 H Creatinine 1.90 H D Est Cr Clr Drug Dosing 20.8 Est GFR ( Amer) 29.4 Est GFR (Non-Af Amer) 25.3 BUN/Creatinine Ratio 37.5 H Glucose 96 Calcium 6.3 L Total Bilirubin 1.0 AST 30 ALT 22 Alkaline Phosphatase 58 Total Protein 5.4 L Albumin 2.4 L Globulin 3.0 Albumin/Globulin Ratio 0.8 L Lipase 543 H Diagnostic Findings EGD/ERCP results reviewed PG Care Time/CCT Total # of Minutes Spent Total Time Spent with Patient: Total time spent is greater than 50% in coordination of care (as documented) at patient's floor/unit and/or counseling patient: Coding Level of Care Code 02167 Subs [facility] 3 Diagnoses Choledocholithiasis K80.50 Pancreatitis K85.10 Acute pancreatitis complication: unspecified Chronicity: acute Pancreatitis type: biliary Cholelithiasis K80.20 Cholecystitis presence: without cholecystitis Cholelithiasis location: gallbladder Wide-complex tachycardia I47.2 Elevated troponin level not due myocardial infarction R79.89 Cirrhosis K74.60 Paroxysmal atrial fibrillation I48.0 CKD (chronic kidney disease), stage IV N18.4 H/O unilateral nephrectomy Z90.5 Hypothyroid E03.9 HTN (hypertension) I10 GERD (gastroesophageal reflux disease) K21.9 COPD (chronic obstructive pulmonary disease) J44.9 Chronic systolic CHF (congestive heart failure) I50.22 Chronic respiratory failure with hypoxia J96.11 Hypokalemia E87.6 Hypomagnesemia E83.42 Hypocalcemia E83.51 DVT prophylaxis Z29.9 (1) Pancreatitis Acute pancreatitis complication: unspecified Chronicity: acute Pancreatitis type: biliary Qualified Code(s): K85.10 - Biliary acute pancreatitis without necrosis or infection (2) Cholelithiasis Cholecystitis presence: without cholecystitis Cholelithiasis location: gallbladder
[2020-01-21] MEDS: ALBUT/IPRATROP 3MG/0.5MG NEB 3 ML VIAL NEB SCH (22:54)
[2020-01-22] MEDS: ALBUT/IPRATROP 3MG/0.5MG NEB 3 ML VIAL NEB SCH ×5 (03:28→21:03)
[2020-01-22] MEDS: MoRPHine SULFATE 2 MG/ML CARP IV PRN (04:57)
[2020-01-22] MEDS: LEVOTHYROXINE SODIUM 50 MCG TABLET PO SCH (06:22)
[2020-01-22] MEDS: metroNIDAZOLE 500 MG/100 ML BAG IV SCH ×3 (06:41→23:20)
[2020-01-22 06:47] LABS: Hemoglobin 10.2 g/dL (12.0-16.0); Mean Corpuscular Hemoglobin 34.7 pg (25-34); Mean Corpuscular Hgb Conc 32.9 g/dL (32-36); Mean Corpuscular Volume 105.4 fL (80-100); Mean Platelet Volume 12.9 fL (7.4-10.4); Platelet Count 122 K/uL (130-400); RDW Coefficient of Variation 14.4 % (11.5-14.5); RDW Standard Deviation 55.8 fL (36.4-46.3); Red Blood Count 2.94 M/uL (4.2-5.4)
[2020-01-22 06:48] LABS: INR 1.4 (0.9-1.1)
[2020-01-22 07:04] LABS: Platelet Estimate Decreased (Normal)
[2020-01-22 07:16] LABS: Calcium 7.3 mg/dl (8.5-10.1); Creatinine Clr Calc Pharmacy 24.5 ml/min; Est GFR (African American) 35.4; Est GFR (Non-African American) 30.5; Potassium 4.4 mmol/L (3.5-5.1)
[2020-01-22] MEDS: LACTATED RINGER'S 1,000 ML IV SCH (08:21)
[2020-01-22] MEDS: OXYBUTYNIN CHLORIDE XL 5 MG TABCR PO SCH (08:26)
[2020-01-22] MEDS: DONEPEZIL HCL 10 MG TAB PO SCH (08:27)
[2020-01-22] MEDS: HYDROCORTISONE ACETATE 25 MG SUPP PR SCH ×2 (08:28→21:00)
[2020-01-22] MEDS: PANTOprazole 40 MG TAB PO SCH (08:28)
[2020-01-22] MEDS: METOPROLOL SUCC 25MG EXT REL TAB PO SCH (08:28)
[2020-01-22] MEDS: PRAVASTATIN SOD 40 MG TAB PO SCH (08:28)
[2020-01-22] MEDS: FOLIC ACID 1 MG TAB PO SCH (08:29)
[2020-01-22] MEDS: FLUTICASONE PROPIONATE NA SPR 16 GM BTL NAE SCH ×2 (08:30→21:00)
[2020-01-22] MEDS: FLUTICASONE/VILANTEROL 100/25MCG 14 PUFFS/INHALER INH SCH (08:30)
[2020-01-22] MEDS: UMECLIDINIUM BROMIDE 62.5MCG/BLISTER 7 PUFFS/INHALER INH SCH (08:30)
[2020-01-22] MEDS: BRINZOLAMIDE (AZOPT) OPS 10 ML BTL OP SCH ×2 (08:30→21:00)
--- NOTE | 2020-01-22 09:10 | Anesthesiology Progress Note ---
Date of Service January 22, 2020 Anesthesia Post Procedure Vital Signs Vital Signs: Temp Pulse Pulse Pulse Pulse Resp BP 01/22/20 08:20 72 01/22/20 08:02 36.7 C 59 L 18 01/22/20 07:33 61 18 01/22/20 04:12 47 L 01/22/20 03:29 66 18 01/22/20 02:52 37.2 C 55 L 20 01/21/20 22:55 63 18 01/21/20 22:34 36.6 C 54 L 20 01/21/20 19:10 36.3 C L 51 L 20 136/67 01/21/20 18:11 36.8 C 60 16 132/80 01/21/20 17:23 54 L 01/21/20 16:45 36.8 C 59 L 18 01/21/20 16:35 61 18 01/21/20 16:27 36.8 C 63 18 01/21/20 14:24 37.1 C 57 L 20 132/51 L 01/21/20 11:21 36.6 C 98 H 20 BP Pulse Ox 01/22/20 08:20 01/22/20 08:02 124/64 96 01/22/20 07:33 95 01/22/20 04:12 01/22/20 03:29 97 01/22/20 02:52 129/80 97 01/21/20 22:55 97 01/21/20 22:34 128/74 99 01/21/20 19:10 99 01/21/20 18:11 96 01/21/20 17:23 01/21/20 16:45 111/52 L 95 01/21/20 16:35 103/51 L 96 01/21/20 16:27 106/73 100 01/21/20 14:24 100 01/21/20 11:21 120/74 93 Notes Mental Status: alert / awake / arousable and participated in evaluation Nausea / Vomiting: adequately controlled Pain: adequately controlled Airway Patency, RR, SpO2: stable & adequate BP & HR: stable & adequate Hydration State: stable & adequate
--- NOTE | 2020-01-22 09:20 | Cardiology Progress Note ---
Date of Service January 22, 2020 Assessment & Plan (1) Preop cardiovascular exam: Patient presents with abdominal pain elevated lipase and cholelithiasis on imaging studies. Patient is referred now for consideration of ERCP. Presentation and current findings do not suggest acute coronary syndrome though patient with multiple underlying morbidities. EKG reflects chronic bifascicular heart block and no significant change since at least 2017 Troponins are chronically elevated without evolution in a pattern consistent with underlying renal disease Choledocholithiasis identified with associated pancreatitis. Will likely warrant cholecystectomy. Patient's operative risks are elevated but not prohibitive predominant issues being underlying chronic pulmonary hypertension and chronic renal insufficiency. Timing and location of intervention to be discussed Warfarin remains on hold, platelet count notedly decreased (2) Bifascicular bundle branch block: Chronic bifascicular heart block with prior pacemaker and pacemaker removal no progression in disease (3) Elevated troponin level not due myocardial infarction: No signs of myocardial ischemia suspect the elevation was secondary to chronic elevation with renal insufficiency. Demand ischemia component possible Renal insufficiency is improving (4) Cholelithiasis: (5) History of atrial septal defect repair: Late in life repair with elevated chronic pulmonary pressures, biatrial enlargement (6) Paroxysmal atrial fibrillation: Patient remains in sinus rhythm without tachycardia or bradycardia arrhythmias overnight. Bifascicular heart block still present Warfarin on hold until surgical decision completed (7) Acute on chronic renal failure: Improving since treatment of underlying process Subjective Patient seen and examined, chart, medications, telemetry reviewed. Results of yesterday's procedure is noted choledocholithiasis identified. Patient with confusion post procedure due to sedation This morning now feels well only mild nausea and right upper quadrant pain. No dizziness or lightheadedness no syncope or near syncope. Physical Exam Constitutional: + obese; no acute distress Eyes: PERRL, conjunctivae normal, anicteric sclerae ENMT: external ear and nose normal, oropharynx normal Neck: trachea midline, no thyromegaly Respiratory: Auscultation: + diminished lung sounds Cardiovascular: Rate/Rhythm: regular rate and regular rhythm Heart Sounds: normal S1 and normal S2; no murmur Vessels: no JVD and no carotid bruit Gastrointestinal (Abdomen): Percussion/Palpation: + abdomen tender (Mild right upper quadrant tenderness) and abdomen soft Musculoskeletal: no cyanosis or clubbing, extremities motor strength 5/5 Skin: no rashes, warm and dry Neurologic: PERRL, EOMI, accommodation nl, no face palsy, no dysarthria Psychiatric: A+Ox3, euthymic affect Results & Data Vital Signs (Past 12 Hours) Vital Signs Temp Pulse Pulse Pulse Resp BP Pulse Ox 01/22/20 08:20 72 01/22/20 08:02 36.7 C 59 L 18 124/64 96 01/22/20 07:33 61 18 95 01/22/20 04:12 47 L 01/22/20 03:29 66 18 97 01/22/20 02:52 37.2 C 55 L 20 129/80 97 01/21/20 22:55 63 18 97 01/21/20 22:34 36.6 C 54 L 20 128/74 99 Laboratory Results Laboratory Results - last 24 hr 01/22/20 01/22/20 01/22/20 06:21 06:21 06:21 WBC 8.70 RBC 2.94 L Hgb 10.2 L Hct 31.0 L MCV 105.4 H MCH 34.7 H MCHC 32.9 RDW Std Deviation 55.8 H RDW Coeff of Lc 14.4 Plt Count 122 L MPV 12.9 H Platelet Estimate Decreased L PT 14.0 H INR 1.4 H Sodium 144 Potassium 4.4 Chloride 116 H Carbon Dioxide 23 Anion Gap 5.0 BUN 47 H Creatinine 1.63 H Est Cr Clr Drug Dosing 24.5 Est GFR ( Amer) 35.4 Est GFR (Non-Af Amer) 30.5 BUN/Creatinine Ratio 29.0 H Glucose 102 H POC Glucose Calcium 7.3 L D 25-OH Vitamin D Total 01/22/20 01/22/20 06:21 07:44 WBC RBC Hgb Hct MCV MCH MCHC RDW Std Deviation RDW Coeff of Lc Plt Count MPV Platelet Estimate PT INR Sodium Potassium Chloride Carbon Dioxide Anion Gap BUN Creatinine Est Cr Clr Drug Dosing Est GFR ( Amer) Est GFR (Non-Af Amer) BUN/Creatinine Ratio Glucose POC Glucose 93 Calcium 25-OH Vitamin D Total 41.3 (1) Cholelithiasis Cholelithiasis location: gallbladder Cholecystitis presence: without cholecystitis (2) Acute on chronic renal failure Acute renal failure type: unspecified Chronic kidney disease stage: stage 4 (severe) Qualified Code(s): N17.9 - Acute kidney failure, unspecified; N18.4 - Chronic kidney disease, stage 4 (severe)
--- NOTE | 2020-01-22 10:55 | Gastroenterology Progress Note ---
Date of Service January 22, 2020 Assessment & Plan (1) Cholelithiasis: (2) Cirrhosis: (3) Pancreatitis: Pt is a 74 y/o female w RUQ abd pain, n/v x 1 weeks, labs and imaging studies indicate pancreatitis ? gallstone related. Borderline gallbladder wall thickening w/o obvious cholecystitis. CBD 6mm, w/o choledocholithiasis noted on u/s. Liver suspicious for cirrhosis. LFTs remain normal. She had persistent RUQ abd pain, INR was better corrected and K was repleted. Thus we decided to have her undergo EGD/EUS/ERCP yesterday - found to have cholelithiasis, choledocholithiasis, removed w balloon extraction, biliary sphincterectomy performed, biliary and pancreatic stents placed. LFTs remained normal, lipase decreasing. - Continue IV antibx - CL diet ,may advance as tolerated from our standpoint - Discussed w Surgery about possible cholecystectomy. She is deemed a high risk surgical candidate, recommended to have cholecystectomy done in tertiary care center. Primary hospitalist will discuss w family and pt about possible transfer. - Avoid NSAIDs and ASA 5 days after sphincterectomy - KUB 4 weeks to check for pancreatic stent migration - We will help schedule repeat ERCP in 4-6 week's time to remove biliary stent Attg add: I interviewed and examined pt, reviewed chart and labs. Pt with improved LFT's, lipase. Admission and Anticipated Discharge Date Admission Date: January 19, 2020 Subjective Pt reports abd pain is improved some. Denies any n/v. No longer having diarrhea. Review of Systems Review of Systems: All systems reviewed & are unremarkable except as noted in HPI & below Physical Exam Constitutional: WD/WN, vitals as above well groomed, cooperative and comfortable Eyes: PERRL, conjunctivae normal, anicteric sclerae ENMT: external ear and nose normal, oropharynx normal Respiratory: normal respiratory effort, lungs clear to auscultation Cardiovascular: RRR, no murmur, no edema Gastrointestinal (Abdomen): Inspection/Auscultation: normal bowel sounds Percussion/Palpation: + abdomen tender (RUQ) and abdomen soft Skin: no rashes, warm and dry no jaundice Psychiatric: A+Ox3, euthymic affect Lymphatic: no lymphedema Results & Data ([facility]) Vital Signs (Past 12 Hours) Vital Signs Temp Pulse Pulse Pulse Resp BP Pulse Ox 01/22/20 08:20 72 01/22/20 08:02 36.7 C 59 L 18 124/64 96 01/22/20 07:50 67 01/22/20 07:33 61 18 95 01/22/20 04:12 47 L 01/22/20 03:29 66 18 97 01/22/20 02:52 37.2 C 55 L 20 129/80 97 01/21/20 22:55 63 18 97 (1) Pancreatitis Acute pancreatitis complication: unspecified Chronicity: acute Pancreatitis type: biliary Qualified Code(s): K85.10 - Biliary acute pancreatitis without necrosis or infection (2) Cholelithiasis Cholecystitis presence: without cholecystitis Cholelithiasis location: gallbladder
--- NOTE | 2020-01-22 16:05 | Nephrology Progress Note ---
Date of Service January 22, 2020 Assessment & Plan (1) Acute on chronic renal failure: Baseline creatinine 2.0; in setting of solitary kidney after remote R nephrectomy. Prerenal nonoliguric YAZMIN on CKD4 w/ presenting creatinine 01/19 at 2.9, improved to better than baseline at 1.6 this am. Chemistries as below. Some hyperchloremia; mild anemia which is stable -daily bmp Please have discharge planners arrange follow-up visit with Dr. Batista in [facility] about 2 to 4 weeks after discharge; discharge summary updated to reflect this (2) Electrolyte and fluid disorder: hypokalemia resolved as has elevated BUN. Ca still low but stabilized today -OP sensipar not ordered currently and would not at this time restart; can reass ess restarting this at outpatient follow-up in kidney clinic -Yesterday had IV 2 gm Ca gluconate; no further IV supplementation indicated Reasonable to continue 50 mL hourly lactated Ringer's Calcium supplements on hold since potassium has normalized -cont to hold OP torsemide and would continue to hold until she is taking p.o. with stable renal function times at least 24 to 48 hours Admission and Anticipated Discharge Date Admission Date: January 19, 2020 Subjective Seen on rounds this afternoon at about 1400. Ongoing crampy bilateral abdominal pain. ERCP yesterday showed cholelithiasis and choledocholithiasis status post balloon extraction and biliary sphincterotomy with biliary and pancreatic stent placement; arrangements in process 4 transfer to [facility] or other tertiary care center for cholecystectomy; no change to chronic dyspnea my: Edema controlled; remains n.p.o.; no voiding complaints; no nausea vomiting Review of Systems Review of Systems: All systems reviewed & are unremarkable except as noted in HPI & below Physical Exam Constitutional: well developed and well nourished; no acute distress (Lying flat in bed on O2 nasal cannula) Eyes: EOM intact bilaterally ENMT: Ears: no external ear abnormality Nose: no external nose abnormality Mouth: + dry oral mucous membranes Neck: no nuchal rigidity Respiratory: normal respiratory effort Auscultation: + diminished lung sounds Cardiovascular: RRR, no murmur, no edema Gastrointestinal (Abdomen): Inspection/Auscultation: normal bowel sounds Percussion/Palpation: abdomen soft; abdomen nontender Musculoskeletal: Extremities: strength 5/5 throughout Skin: no rashes, warm and dry Neurologic: Moves all extremities, fluent speech, no tremor Psychiatric: A+Ox3, euthymic affect Results & Data ([facility]) Vital Signs (Past 12 Hours) Vital Signs Temp Pulse Pulse Resp BP Pulse Ox 01/22/20 15:25 64 01/22/20 15:22 66 16 98 01/22/20 11:57 37.0 C 63 20 125/76 98 01/22/20 11:34 71 18 98 01/22/20 08:20 72 01/22/20 08:02 36.7 C 59 L 18 124/64 96 01/22/20 07:50 67 01/22/20 07:33 61 18 95 01/22/20 04:12 47 L Laboratory Results 01/22/20 06:21 01/22/20 06:21 (1) Acute on chronic renal failure Acute renal failure type: unspecified Chronic kidney disease stage: stage 4 (severe) Qualified Code(s): N17.9 - Acute kidney failure, unspecified; N18.4 - Chronic kidney disease, stage 4 (severe)
--- NOTE | 2020-01-22 18:48 | Discharge Summary ---
Date of Service date of admission - January 19, 2020 date of discharge - January 22, 2020 Admission HPI Per Admitting Provider 74yo F w/ hx of paroxsymal afib/flutter on coumadin, chronic systolic CHF, chronic hypoxic respiratory failure 2nd to COPD on 3L NC O2, DM2, HTN, and CKD stage 4 who presents with pancreatitis & possible choledocholithiasis. The patient is a tough historian, but she and her daughter report that she has not been feeling for at least a few days. She has been having RUQ & epigastric pain along with nausea and mild vomiting. The emesis in non-bloody and non- bilious. She has also noted some alternating diarrhea and constipation. She notes some mild hemorrhoid pain, but she is unsure if she has been having melena or hematochezia because of the fact that she is not able to clean herself. She denies any shortness of breath or any chest pain. She denies any palpitations. She has not had any LE swelling or any orthopnea or dyspnea on exertion. Principal Diagnosis gallstone pancreatitis; choledocholithiasis Discharge Exam Constitutional no acute distress ENMT external ear and nose normal, oropharynx normal Respiratory no respiratory distress Auscultation: + wheezes (b/l - minimal ); no crackles Cardiovascular Rate/Rhythm: regular rate and regular rhythm Heart Sounds: normal S1, normal S2 and + murmur (2/6 LLSB) Vessels: posterior tibial pulses present and dorsalis pedis pulses present; no JVD Extremities: no edema Gastrointestinal (Abdomen) Inspection/Auscultation: normal bowel sounds; abdomen not distended Percussion/Palpation: + abdomen tender (RUQ, to deep palpation ) and abdomen soft; no guarding and no hepatosplenomegaly Skin no jaundice Psychiatric Orientation: alert, oriented to person, oriented to place and oriented to time Discharge Data Allergies Allergy/AdvReac Type Severity Reaction Status Date / Time levofloxacin Allergy Intermediate HIVES Verified 01/19/20 14:23 Quinolones Allergy Intermediate HIVES Verified 01/19/20 14:23 ranitidine Allergy Intermediate HIVES Verified 01/19/20 14:23 sulfamethoxazole Allergy Intermediate HIVES Verified 01/19/20 14:23 trimethoprim Allergy Intermediate HIVES Verified 01/19/20 14:23 clarithromycin Allergy Mild HIVES, CAN Verified 01/19/20 14:23 TAKE ZITHROMAX W/O PROB amoxicillin Allergy Unknown HIVES Verified 01/19/20 14:23 omeprazole Allergy Unknown HAS HAD Verified 01/19/20 14:23 PROTONIX tomato AdvReac Unknown GI SYMPTOMS Verified 01/19/20 14:23 Pork AdvReac Unknown GI SYMPTOMS Uncoded 01/19/20 14:23 Consultations 1. [facility] Gastroenterology 2. [facility] Nephrology 3. General Surgery 4. [facility] Cardiology Procedures Performed Operation Date: 01/21/20 Endoscopic Ultrasonography Upper(Not Applicable) - Amber Silverman MD Endoscopic Retrograde Cholangiopancreatogram(Not Applicable) - Amber Silverman MD * Choledocholithiasis found. Extraction of stones. Sphincterotomy with balloon extraction. * Placement of CBD stent. * Placement of ventral pancreatic duct stent. Esophagogastroduodenoscopy(Not Applicable) - Amber Silverman MD * normal esophagus, stomach and duodenum Ordered Studies 1. CT abd pelvis wo con - IMPRESSION: 1. Cholelithiasis and mild gallbladder distention. Acute cholecystitis cannot be excluded. A right upper quadrant ultrasound could be obtained. 2. Possible mild peripancreatic infiltration. The findings could be correlated with this level to exclude acute pancreatitis. 3. Solid 8 mm right lower lobe nodule. This nodule is indeterminate and a small neoplasm cannot be excluded. Follow-up according to the attached recommendations is suggested. 4. Moderate attenuation bilateral adnexal lesions. These favor cysts however follow-up nonemergent pelvic ultrasound is recommended to evaluate for complexity. 5. Cirrhosis. 2. US abdomen complete - IMPRESSION: 1. No biliary ductal dilatation. No common bile duct calculi identified by sonography. 2. Cholelithiasis. Borderline gallbladder wall thickening. No sonographic Pearce sign. If clinical suspicion for acute cholecystitis, a hepatobiliary scan could be obtained. 3. Suspected cirrhosis. Hospital Course (1) Pancreatitis: Patient's presenting symptoms were due to acute pancreatitis. Peak lipase was 739. Her pancreatitis was likely due to gallstones given gall bladder findings, CBD stones on ERCP, etc. She received supportive care and judicious fluids for her acute pancreatitis. Lipase slowly trended down while hospitalized. She was allowed to have clear liquids but on the AM of transfer to [facility] she had emesis and was made NPO at that time. (2) Choledocholithiasis: Patient underwent EGD and ERCP on 01/21/[address] Amber Silverman of [facility]. EGD was normal. ERCP revealed choledocholithiasis. CBD stones were extracted, and CBD stent along with pancreatic duct stent were deployed. There was no evidence of cholangitis at time of ERCP. She will need KUB x-ray in 3-4 weeks to check for migration of the pancreatic duct stent. She will need ERCP in 6 weeks to extract the CBD stent. (3) Cholelithiasis: With choledocholithiasis as found on ERCP. CT and ultrasound findings were equivocal for acute cholecystitis. In light of her clinical presentation and exam findings she was covered for the possibility of cholecystitis with cefoxitin and flagyl, however. LFTs remained normal during the stay, and she remained afebrile. She was seen in consult by general surgery for consideration of cholecystectomy in light of her acute gallstone pancreatitis. Due to her numerous medical problems including her vast cardiopulmonary comorbidities it was felt that she would be best served at a tertiary care center given her high-risk status. [facility] was contacted, and Dr Larissa Quintana graciously accepted Ms Humphries in transfer for ongoing care. (4) Elevated troponin level not due myocardial infarction: Likely myocardial demand ischemia in setting of acute pancreatitis. No ACS or ischemic symptoms. Peak troponin was 0.164. (5) Paroxysmal atrial fibrillation: INR was elevated at 4.5 at time of presentation. Given vitamin K for such. INR on day of discharge was 1.4. Coumadin has been on hold since admission. She remains on metoprolol. No PAF was seen on telemetry while here (one run of probable a. tach with aberrancy only). (6) CKD (chronic kidney disease), stage IV: Cr baseline - high 1's to ~2.5. Cr on day of discharge was 1.6. Sensipar has been held and should continue to be held upon discharge. (7) Acute kidney injury: Peak Creatinine was 2.9, likely due to dehydration in the setting of her acute pancreatitis. Creatinine improved with IV fluids and supportive care. (8) H/O unilateral nephrectomy: (9) Wide-complex tachycardia: Asymptomatic from such. One episode was captured on telemetry. Herman to be a-tach with aberrancy. No v-tach was seen at any time. (10) Cirrhosis: Cirrhotic findings were seen on CT and u/s. etiology? due to CONSTANTINO? "cardiac cirrhosis"? other? compensated during her stay. This was NOT a known prior diagnosis; seen incidentally on imaging this admission. Follow-up with Stefanie SALGADO as an outpatient. (11) Hypothyroid: TSH compensated at 0.6. cont synthroid as previous. (12) HTN (hypertension): BPs controlled while here on metoprolol. (13) GERD (gastroesophageal reflux disease): cont PPI (14) COPD (chronic obstructive pulmonary disease): With resulting chronic hypoxic resp failure. Cont NC O2, 2 liters. Chest x-ray 01/21 without pulmonary edema or infiltrates. Continue duonebs and normal inhalers. (15) Chronic systolic CHF (congestive heart failure): Remained compensated while here. EF on prior echo 45-50% (2017). Continue metoprolol. Not REGI or ARB candidate due to CKD. (16) Chronic respiratory failure with hypoxia: stable, on NC O2. 2nd to COPD and pulmonary HTN. (17) Hypokalemia: replaced and resolved prior to discharge (18) Hypomagnesemia: replaced/resolved prior to discharge (19) Hypocalcemia: Received IV calcium during the stay. Corrected calcium on day of discharge was 8.2. 25-OH vit D level on 01/22 was normal. 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 she did not have a new device implanted following that incident. (22) Pulmonary nodule: seen on CT during this admission. 8mm, solid, RLL. Referral made to the [facility] Pulmonary Nodule clinic. Total Time Total Time Spent Total Time Spent (In Minutes): 60 Total Time Includes: Examination of the Patient, Discharge Planning, Medication Reconciliation and Communication With Other Providers Discharge Plan Discharge Items Patient Disposition: Transfer Acute Care Hospital Reason For Visit: PANCREATITIS,POSSIBLE CHOLEDOCOLITHIASIS Discharge Diagnosis: 1. gallstone pancreatitis 2. choledocholithiasis 3. concern for acute cholecystitis Activity: Resume your previous activity Non-emergency contact: Primary Care Provider and Software Quality Assurance Analyst Call non-emergency contact if: you have any medication questions Follow-up/Referrals: Abhijit Lara [Primary Care Provider] - Amber Silverman MD [Hospitalist] - (see Dr Silverman in 6 weeks for stent retrieval ) Diet: Nothing by Mouth Addtl Attending Provider Instructions: 1. KUB x-ray in 3-4 weeks to assess migration of pancreatic duct stent 2. follow-up ERCP in 6 weeks for CBD stent retrieval with Dr Amber Silverman [facility] Addtl Surveyor [employer] Well Directional Provider Instructions: Please have discharge planners arrange follow-up visit with Dr. Batista in [facility] kidney clinic about 2 to 4 weeks after discharge -Please hold Sensipar at discharge; will reassess indications for this medication at a clinic follow-up Pending Studies at Discharge: No Stand-Alone Forms: My [facility] Skilled Items Patient informed of condition?: Yes DNR: No Discharge Level of Care: Other Communicable Disease: No Discharge Prognosis: Stable Lines: Peripheral IV Urinary Catheter: No Medications and DC Order Prescriptions: Continued fluticasone propion-salmeterol [Advair Diskus] 250-50 mcg/dose blister with device 1 inh INHALATION Q12H RF: 0 brinzolamide 1 % Drops,Suspension 1 drp OPHTHALMIC (EYE) BID RF: 0 acetaminophen 650 mg Tablet Extended Release 650 mg PO BID RF: 0 hydrocortisone acetate [Anusol-HC] 25 mg Suppository 25 mg NJ BID RF: 0 Bengay Greaseless 15-10 % Cream 1 applic TOPICAL QID RF: 0 acetaminophen 325 mg Tablet 650 mg PO Q6H PRN (Reason: Pain) RF: 0 sennosides-docusate sodium [Senokot-S] 8.6-50 mg Tablet 2 tab-cap PO BID RF: 0 pravastatin 80 mg tablet 80 mg PO DAILY RF: 0 magnesium hydroxide [Milk of Magnesia] 400 mg/5 mL Suspension 30 ml PO DAILY PRN (Reason: Constipation) RF: 0 levothyroxine 50 mcg tablet 50 mcg PO DAILY RF: 0 bisacodyl [Dulcolax (bisacodyl)] 10 mg Suppository 10 mg NJ DAILY PRN (Reason: Constipation) RF: 0 nitroglycerin 0.4 mg Tablet, Sublingual 0.4 mg sublingual UD PRN (Reason: Chest Pain) RF: 0 oxybutynin chloride 5 mg tablet extended release 24hr 5 mg PO DAILY RF: 0 omeprazole 20 mg Capsule,Delayed Release(Dr/Ec) 20 mg PO DAILY RF: 0 folic acid 1 mg Tablet 1 mg PO DAILY RF: 0 metoprolol succinate 25 mg tablet extended release 24 hr 12.5 mg PO DAILY RF: 0 polyethylene glycol 3350 [GlycoLax] 17 gram/dose Powder 17 g PO DAILY PRN (Reason: Constipation) RF: 0 albuterol sulfate 90 mcg/actuation Hfa Aerosol Inhaler 2 puff INHALATION Q6H PRN (Reason: Shortness Of Breath) RF: 0 fluticasone propionate [Flonase Allergy Relief] 50 mcg/actuation [place],Suspension 1 spray INTRANASAL BID RF: 0 loratadine 10 mg Tablet 10 mg PO DAILY RF: 0 Mylanta Maximum Strength 400-400-40 mg/5 mL Suspension 30 ml PO Q4H PRN (Reason: Heartburn) RF: 0 glycerin (adult) [Fleet Glycerin (Adult)] Suppository 1 supp NJ DAILY PRN (Reason: Constipation) RF: 0 Incruse Ellipta 62.5 mcg/actuation blister with device 1 inh INHALATION DAILY RF: 0 donepezil 10 mg tablet 10 mg PO DAILY RF: 0 Discontinued warfarin [Coumadin] 2 mg Tablet 2 mg PO DAILY RF: 0 torsemide 20 mg tablet 40 mg PO DAILY RF: 0 cinacalcet [Sensipar] 30 mg Tablet 30 mg PO 3XWK RF: 0 Discharge Orders: Discharge Order (Routine); Ordered 01/22/20 Ordered By: Micheal Buckner Admission Data Admit Date/Time: 01/19/20 16:38 Attending Provider: Micheal Buckner Admit Provider: Marciano Pritchard Primary Care Provider: Abhijit Lara Other Providers: Marciano Pritchard ; Justyn Osborne ; Kelle Stewart ; Damian Monge ; Gianfrnaco Lay Coding Level of Care Code D/C Day Management >30 mins Diagnoses Pancreatitis K85.10 Acute pancreatitis complication: unspecified Chronicity: acute Pancreatitis type: biliary Choledocholithiasis K80.50 Cholelithiasis K80.20 Cholecystitis presence: without cholecystitis Cholelithiasis location: gallbladder Elevated troponin level not due myocardial infarction R79.89 Paroxysmal atrial fibrillation I48.0 CKD (chronic kidney disease), stage IV N18.4 Acute kidney injury N17.9 H/O unilateral nephrectomy Z90.5 Wide-complex tachycardia I47.2 Cirrhosis K74.60 Hypothyroid E03.9 HTN (hypertension) I10 GERD (gastroesophageal reflux disease) K21.9 COPD (chronic obstructive pulmonary disease) J44.9 Chronic systolic CHF (congestive heart failure) I50.22 Chronic respiratory failure with hypoxia J96.11 Hypokalemia E87.6 Hypomagnesemia E83.42 Hypocalcemia E83.51 Pulmonary hypertension I27.20 Tachy-james syndrome I49.5 Pulmonary nodule R91.1
[2020-01-23] MEDS: ALBUT/IPRATROP 3MG/0.5MG NEB 3 ML VIAL NEB SCH (00:56)
[2020-01-23] MEDS: MoRPHine SULFATE 2 MG/ML CARP IV PRN (01:20)
== END 2020-01-23 02:27 | disposition short-term general hospital (02) | DRG 444 ==
LOC: ED 12:10 → SUATTDRO 16:38 → 2N 16:38

== ENCOUNTER 2020-09-23 09:29 | Inpatient (IN) ==
[2020-09-23] MEDS ORDERED: fentaNYL citrate 100 MCG/2 ML VIAL IV PRN ×2 (09:46→17:23)
[2020-09-23] MEDS ORDERED: ONDANSETRON INJ 2 MG/ML 2 ML VIAL IV STA (09:46)
[2020-09-23] MEDS ORDERED: SODIUM CHLORIDE 0.9% 500 ML IV SCH (10:00)
--- NOTE | 2020-09-23 10:03 | Emergency Department Note ---
Impression & Plan Acute cholecystitis, Abdominal pain, acute, right upper quadrant ED Provider Note NAME: CRISTEL PERLA AGE: 74 SEX: F : 1945 ARRIVES VIA: Walk-In INFORMANT: Patient, ED PROVIDER(S): Marv Seay DO CHIEF COMPLAINT: Abdominal pain HPI: The patient is a 74-year-old female who presented to the emergency department for an evaluation of abdominal pain. The patient arrived with her transport person. She normally resides at a assisted. She was on her way to a pulmonary function appointment when she started having severe abdominal pain. She was returned to the assisted area and was seen in the parking lot by her primary care physician who recommended that she come directly to the emergency department because of the degree of pain. The patient does have a history of gallstones as well as gallstone pancreatitis. She also has a history of atrial fibrillation. She states the pain is similar to episodes of gallstone attacks in the past. She was seen recently by her GI physician. At this time they are still deciding how best to treat her gallbladder issues. She is had no nausea or vomiting. She does complain of right sided back pain as well. She denies having any hematuria or dysuria. She denies having any fever or cough. The patient was having a large bowel movement when I initially entered the room. There was no black or bloody bowel movement noted. She states after she moved her bowel she had some improvement of her pain. She still rates the pain is moderate to severe especially with any movement or palpation the right upper quadrant. ROS: See above HPI for pertinent positives & negatives. A total of 10 systems reviewed and were otherwise negative. PAST MEDICAL HISTORY: See Below PAST SURGICAL HISTORY: See Below FAMILY HISTORY: See Below SOCIAL HISTORY: See Below HOME MEDICATIONS: See Below ALLERGIES: See Below VITALS: See Below PHYSICAL EXAMINATION: GENERAL: The patient is awake and alert. She is very anxious appearing and appears to be uncomfortable. EYES: The conjunctivae are clear. The pupils are round and reactive. EARS, NOSE, MOUTH AND THROAT: The nose is without any evidence of any deformity. NECK: The neck is nontender and supple. RESPIRATORY: Normal respiratory effort is noted there is no evidence of wheezing rhonchi or rales CARDIOVASCULAR: Irregular rhythm was noted to auscultation. Systolic murmur was suggested. GASTROINTESTINAL: The abdomen is moderately distended and diffusely tender. There is guarding in the right upper quadrant. MUSCULOSKELETAL/EXTREMITIES: There is no evidence of gross deformity full range of motion is noted in the hips and shoulders. SKIN: Trace pedal edema was noted bilaterally. Skin is warm and dry. NEUROLOGIC: Patient is awake alert and oriented x3. MEDICAL DECISION MAKING: The patient is a 74-year-old female who presented to the emergency department with significant right upper quadrant abdominal pain. The patient was treated with IV pain medication in the emergency department. She was also treated with IV antibiotics. She has a history of a biliary stent and has had similar symptoms in the past. I discussed the patient's laboratory and radiographic studies with her. I also discussed her case with the on-call gastroenterology group. She was evaluated in the emergency department by the GI group. They do feel this may be amenable to upper endoscopy and we will schedule this over the next 24 hours. I discussed this case with the on-call [facility] hospitalist. They have agreed to evaluate the patient in the emergency d epartment for further management and disposition. The patient was reevaluated multiple times. On subsequent reevaluation she was feeling much better. Triage Nursing notes reviewed. Prior medical records reviewed Vital Signs: reviewed and remarkable for elevated blood pressure and bradycardia. Differential diagnosis: Etiologies such as appendicitis, diverticulitis, obstruction, inflammatory bowel disease, renal colic, PUD, biliary pathology, pancreatitis, mesenteric ischemia, aortic pathology, infections, genitourinary, UTI, perforated viscus, as well as others were entertained. ER treatment provided: See below Diagnostics interpreted by me: ECG: EKG was obtained in the emergency department. My interpretation is sinus bradycardia at 50 bpm. There was no ectopy. Right bundle branch block pattern was noted. This was compared to a tracing from January 212019. No significant changes were noted. Cardiac Monitoring: An order was placed for continuous cardiac monitoring. The monitor shows a rate of 60 bpm with sinus bradycardia rhythm. Laboratory studies: As stated above and show below. Imaging studies: See below Consultation(s): 1220: I discussed this case with Erick from gastroenterology. She will review the patient's laboratory and radiographic studies. 1420: I discussed this case with Dr. Edwards who is on-call for the [facility]ist group. Past Med/Surg History Medical History Afib "s/p ablation" Anemia CKD (chronic kidney disease), stage IV COPD (chronic obstructive pulmonary disease) Gallstones GERD (gastroesophageal reflux disease) H/O unilateral nephrectomy "right" Heart disease "mild CAD cath 2008" HTN (hypertension) Hypothyroid Pulmonary hypertension Surgical History H/O thyroidectomy History of appendectomy Family History Father Heart disease Other Asthma Lung disease Social History Smoking Status: Former smoker packs per day: 1; Years Smoked: 30; Hx Alcohol Use: No Hx Substance Use: No Preferred Language: Khmer Communication Ability: Effective Corporate Health Consultant Required: No Beliefs That Will Affect Care: None Current Living Situation: Personal Care Facility Current Living Situation Comment: [facility] Feels Safe at Home: Yes Assistive Devices: Oxygen - Continuous and Walker Allergies Allergies Allergy/AdvReac Type Severity Reaction Status Date / Time levofloxacin Allergy Intermediate HIVES Verified 09/23/20 10:17 Quinolones Allergy Intermediate HIVES Verified 09/23/20 10:17 ranitidine Allergy Intermediate HIVES Verified 09/23/20 10:17 sulfamethoxazole Allergy Intermediate HIVES Verified 09/23/20 10:17 trimethoprim Allergy Intermediate HIVES Verified 09/23/20 10:17 clarithromycin Allergy Mild HIVES, CAN Verified 09/23/20 10:17 TAKE ZITHROMAX W/O PROB amoxicillin Allergy Unknown HIVES Verified 09/23/20 10:17 omeprazole Allergy Unknown HAS HAD Verified 09/23/20 10:17 PROTONIX tomato AdvReac Unknown GI SYMPTOMS Verified 09/23/20 10:17 Pork AdvReac Unknown GI SYMPTOMS Uncoded 09/23/20 10:17 Home Meds Home Medications Medication Instructions Recorded Confirmed acetaminophen 650 mg PO BID 01/19/20 09/23/20 albuterol sulfate 2 puff INHALATION Q6H PRN 01/19/20 09/23/20 donepezil 10 mg PO HS 01/19/20 09/23/20 fluticasone propionate [Flonase 1 spray INTRANASAL BID 01/19/20 09/23/20 Allergy Relief] folic acid 1 mg PO QAM 01/19/20 09/23/20 levothyroxine 50 mcg PO QAM 01/19/20 09/23/20 loratadine 10 mg PO QAM 01/19/20 09/23/20 nitroglycerin 0.4 mg SUBLINGUAL UD PRN 01/19/20 09/23/20 omeprazole 20 mg PO BID 01/19/20 09/23/20 oxybutynin chloride 5 mg PO HS 01/19/20 09/23/20 polyethylene glycol 3350 [GlycoLax] 17 g PO QAM 01/19/20 09/23/20 pravastatin 80 mg PO HS 01/19/20 09/23/20 torsemide 20 mg tablet 20 mg PO QAM 04/21/20 09/23/20 lidocaine [Lidocaine Pain Relief] 1 patch TOPICAL QAM 09/23/20 09/23/20 magnesium oxide 400 mg PO QAM 09/23/20 09/23/20 metoprolol succinate 50 mg PO QAM 09/23/20 09/23/20 senna 8.6 mg PO BID 09/23/20 09/23/20 simethicone [Simethicone-80] 80 mg PO TID 09/23/20 09/23/20 umeclidinium [Incruse Ellipta] 1 inh INHALATION QAM 09/23/20 09/23/20 warfarin 4 mg PO HS 09/23/20 09/23/20 Previous Rx's Medication Instructions Recorded fluticasone 250 mcg-salmeterol 50 1 inh INHALATION Q12H #60 ea 04/21/20 mcg/dose blistr powdr for inhalation Results & Data (ED) Vital Signs Vital Signs - 24 hr 09/23/20 09:32 09/23/20 09:51 09/23/20 09:56 Temperature 37.1 C Temperature Source Oral Pulse Rate 59 L 55 L 53 L Pulse Rate from SpO2 Sensor 55 L 51 L Pulse Rhythm Respiratory Rate 20 14 21 Respiratory Effort / Characteristics Non-Labored Respiratory Depth Normal Blood Pressure 146/60 H 145/83 H Blood Pressure Mean 88 120 Pulse Oximetry 96 100 100 Oxygen Delivery Method Nasal Cannula Oxygen Flow Rate 3 Sepsis Recent Fever Within 48 Hours No Sepsis New/Unexplained Change in Mental Status N/A Sepsis Action Taken by Nursing No Action Required 09/23/20 10:00 09/23/20 10:01 09/23/20 10:10 Temperature Temperature Source Pulse Rate 59 L 52 L Pulse Rate from SpO2 Sensor 57 L 55 L 52 L Pulse Rhythm Respiratory Rate 19 22 18 Respiratory Effort / Characteristics Respiratory Depth Blood Pressure 133/68 Blood Pressure Mean 107 Pulse Oximetry 99 100 100 Oxygen Delivery Method Oxygen Flow Rate Sepsis Recent Fever Within 48 Hours Sepsis New/Unexplained Change in Mental Status Sepsis Action Taken by Nursing 09/23/20 10:20 09/23/20 10:30 09/23/20 10:40 Temperature Temperature Source Pulse Rate 66 48 L Pulse Rate from SpO2 Sensor 49 L 48 L Pulse Rhythm Respiratory Rate 18 16 23 Respiratory Effort / Characteristics Respiratory Depth Blood Pressure 149/57 H Blood Pressure Mean 109 Pulse Oximetry 100 100 Oxygen Delivery Method Oxygen Flow Rate Sepsis Recent Fever Within 48 Hours Sepsis New/Unexplained Change in Mental Status Sepsis Action Taken by Nursing 09/23/20 10:41 09/23/20 10:50 09/23/20 11:00 Temperature Temperature Source Pulse Rate 54 L 145 H 60 Pulse Rate from SpO2 Sensor 49 L 54 L Pulse Rhythm Regular Respiratory Rate 18 26 H 14 Respiratory Effort / Characteristics Respiratory Depth Blood Pressure Blood Pressure Mean Pulse Oximetry 96 100 97 Oxygen Delivery Method Nasal Cannula Oxygen Flow Rate 3 Sepsis Recent Fever Within 48 Hours Sepsis New/Unexplained Change in Mental Status Sepsis Action Taken by Nursing 09/23/20 11:01 09/23/20 11:10 09/23/20 11:20 Temperature Temperature Source Pulse Rate 49 L 52 L Pulse Rate from SpO2 Sensor 49 L 49 L 47 L Pulse Rhythm Respiratory Rate 19 19 24 Respiratory Effort / Characteristics Respiratory Depth Blood Pressure 154/46 H Blood Pressure Mean 87 Pulse Oximetry 100 100 98 Oxygen Delivery Method Oxygen Flow Rate Sepsis Recent Fever Within 48 Hours Sepsis New/Unexplained Change in Mental Status Sepsis Action Taken by Nursing 09/23/20 11:30 09/23/20 12:06 09/23/20 12:08 Temperature Temperature Source Pulse Rate 43 L 70 Pulse Rate from SpO2 Sensor 43 L 50 L 52 L Pulse Rhythm Respiratory Rate 21 24 Respiratory Effort / Characteristics Respiratory Depth Blood Pressure 142/51 H 157/53 H Blood Pressure Mean 89 102 Pulse Oximetry 100 Oxygen Delivery Method Oxygen Flow Rate Sepsis Recent Fever Within 48 Hours Sepsis New/Unexplained Change in Mental Status Sepsis Action Taken by Nursing 09/23/20 12:10 09/23/20 12:20 09/23/20 12:30 Temperature Temperature Source Pulse Rate 55 L 54 L 51 L Pulse Rate from SpO2 Sensor 49 L 51 L 50 L Pulse Rhythm Respiratory Rate 23 17 16 Respiratory Effort / Characteristics Respiratory Depth Blood Pressure Blood Pressure Mean Pulse Oximetry Oxygen Delivery Method Oxygen Flow Rate Sepsis Recent Fever Within 48 Hours Sepsis New/Unexplained Change in Mental Status Sepsis Action Taken by Nursing 09/23/20 12:31 09/23/20 12:40 09/23/20 12:50 Temperature Temperature Source Pulse Rate 50 L 49 L 57 L Pulse Rate from SpO2 Sensor 50 L Pulse Rhythm Respiratory Rate 21 17 14 Respiratory Effort / Characteristics Respiratory Depth Blood Pressure 162/64 H Blood Pressure Mean 104 Pulse Oximetry 100 Oxygen Delivery Method Oxygen Flow Rate Sepsis Recent Fever Within 48 Hours Sepsis New/Unexplained Change in Mental Status Sepsis Action Taken by Nursing 09/23/20 13:00 09/23/20 13:01 09/23/20 13:10 Temperature Temperature Source Pulse Rate 69 49 L 65 Pulse Rate from SpO2 Sensor Pulse Rhythm Respiratory Rate 26 H 17 17 Respiratory Effort / Characteristics Respiratory Depth Blood Pressure 169/67 H Blood Pressure Mean 77 Pulse Oximetry Oxygen Delivery Method Oxygen Flow Rate Sepsis Recent Fever Within 48 Hours Sepsis New/Unexplained Change in Mental Status Sepsis Action Taken by Nursing 09/23/20 13:20 09/23/20 13:30 09/23/20 13:31 Temperature Temperature Source Pulse Rate 44 L 51 L 69 Pulse Rate from SpO2 Sensor 60 Pulse Rhythm Respiratory Rate 16 23 15 Respiratory Effort / Characteristics Respiratory Depth Blood Pressure 161/80 H Blood Pressure Mean 119 Pulse Oximetry 97 Oxygen Delivery Method Oxygen Flow Rate Sepsis Recent Fever Within 48 Hours Sepsis New/Unexplained Change in Mental Status Sepsis Action Taken by Nursing 09/23/20 13:40 09/23/20 13:50 09/23/20 14:15 Temperature Temperature Source Pulse Rate 57 L 57 L Pulse Rate from SpO2 Sensor 51 L 52 L Pulse Rhythm Respiratory Rate 17 23 Respiratory Effort / Characteristics Respiratory Depth Blood Pressure 160/83 H Blood Pressure Mean 96 Pulse Oximetry 100 Oxygen Delivery Method Oxygen Flow Rate Sepsis Recent Fever Within 48 Hours Sepsis New/Unexplained Change in Mental Status Sepsis Action Taken by Nursing 09/23/20 14:31 09/23/20 14:32 Temperature Temperature Source Pulse Rate 56 L 56 L Pulse Rate from SpO2 Sensor 56 L 55 L Pulse Rhythm Respiratory Rate 19 24 Respiratory Effort / Characteristics Respiratory Depth Blood Pressure 179/68 H Blood Pressure Mean 105 Pulse Oximetry 100 100 Oxygen Delivery Method Oxygen Flow Rate Sepsis Recent Fever Within 48 Hours Sepsis New/Unexplained Change in Mental Status Sepsis Action Taken by Assisted Medications Current Medication List: was personally reviewed by me Laboratory Data Attestation: I reviewed the patient's lab results. Result diagrams: 09/23/20 10:00 09/23/20 10:00 Lab Results 09/23/20 09/23/20 09/23/20 Range/Units 10:00 10:00 10:00 WBC 3.94 L (4.8-10.8) K/uL RBC 2.70 L (4.2-5.4) M/uL Hgb 9.6 L (12.0-16.0) g/dL Hct 30.0 L (37-47) % MCV 111.1 H (80-100) fL MCH 35.6 H (25-34) pg MCHC 32.0 (32-36) g/dL RDW Std Deviation 57.2 H (36.4-46.3) fL RDW Coeff of Lc 14.3 (11.5-14.5) % Plt Count 166 (130-400) K/uL MPV 13.9 H (7.4-10.4) fL Immature Gran % (Auto) 0.8 % Neut % (Auto) 61.4 % Lymph % (Auto) 26.6 % Mclean % (Auto) 8.6 % Eos % (Auto) 1.8 % Baso % (Auto) 0.8 % Neut # (Auto) 2.42 (1.4-6.5) K/uL Lymph # (Auto) 1.05 L (1.2-3.4) K/uL Mclean # (Auto) 0.34 (0.11-0.59) K/uL Eos # (Auto) 0.07 (0-0.5) K/uL Baso # (Auto) 0.03 (0-0.2) K/uL Immature Gran # (Auto) 0.03 H (0.00-0.02) K/uL Hypogranular Neuts 1+ Macrocytosis Present PT Cancelled INR Cancelled APTT Cancelled PTT Ratio Cancelled Sodium 141 (136-145) mmol/L Potassium 4.3 (3.5-5.1) mmol/L Chloride 107 (98-107) mmol/L Carbon Dioxide 32 (21-32) mmol/L Anion Gap 2.0 L (3-11) BUN 50 H (7-18) mg/dl Creatinine 1.75 H (0.6-1.2) mg/dl Est Cr Clr Drug Dosing Not Reportable Est GFR ( Amer) 32.4 Est GFR (Non-Af Amer) 28.0 BUN/Creatinine Ratio 28.4 H (10-20) Glucose 83 (70-99) mg/dl Calcium 8.8 (8.5-10.1) mg/dl Magnesium 2.3 (1.8-2.4) mg/dl Total Bilirubin 0.3 (0.2-1) mg/dl AST 14 L (15-37) U/L ALT 16 (12-78) U/L Alkaline Phosphatase 52 (45-117) U/L Troponin I 0.025 (0-0.045) ng/ml Total Protein 7.1 (6.4-8.2) gm/dl Albumin 3.4 (3.4-5.0) gm/dl Globulin 3.7 (2.5-4.0) gm/dl Albumin/Globulin Ratio 0.9 (0.9-2) Lipase 151 (73-393) U/L Urine Color Urine Appearance (Clear) Urine pH (4.5-7.5) Ur Specific [place] (1.000-1.030) Urine Protein (Negative) Urine Glucose (UA) (Negative) Urine Ketones (Negative) Urine Blood (Negative) Urine Nitrite (Negative) Urine Bilirubin (Negative) Urine Urobilinogen (Negative) Ur Leukocyte Esterase (Negative) COVID-19 Eval Order 09/23/20 09/23/20 09/23/20 Range/Units 11:37 12:45 14:35 WBC (4.8-10.8) K/uL RBC (4.2-5.4) M/uL Hgb (12.0-16.0) g/dL Hct (37-47) % MCV (80-100) fL MCH (25-34) pg MCHC (32-36) g/dL RDW Std Deviation (36.4-46.3) fL RDW Coeff of Lc (11.5-14.5) % Plt Count (130-400) K/uL MPV (7.4-10.4) fL Immature Gran % (Auto) % Neut % (Auto) % Lymph % (Auto) % Mclean % (Auto) % Eos % (Auto) % Baso % (Auto) % Neut # (Auto) (1.4-6.5) K/uL Lymph # (Auto) (1.2-3.4) K/uL Mclean # (Auto) (0.11-0.59) K/uL Eos # (Auto) (0-0.5) K/uL Baso # (Auto) (0-0.2) K/uL Immature Gran # (Auto) (0.00-0.02) K/uL Hypogranular Neuts Macrocytosis PT 23.3 H INR 2.3 H APTT 39.2 H PTT Ratio 1.4 Sodium (136-145) mmol/L Potassium (3.5-5.1) mmol/L Chloride (98-107) mmol/L Carbon Dioxide (21-32) mmol/L Anion Gap (3-11) BUN (7-18) mg/dl Creatinine (0.6-1.2) mg/dl Est Cr Clr Drug Dosing Est GFR ( Amer) Est GFR (Non-Af Amer) BUN/Creatinine Ratio (10-20) Glucose (70-99) mg/dl Calcium (8.5-10.1) mg/dl Magnesium (1.8-2.4) mg/dl Total Bilirubin (0.2-1) mg/dl AST (15-37) U/L ALT (12-78) U/L Alkaline Phosphatase (45-117) U/L Troponin I (0-0.045) ng/ml Total Protein (6.4-8.2) gm/dl Albumin (3.4-5.0) gm/dl Globulin (2.5-4.0) gm/dl Albumin/Globulin Ratio (0.9-2) Lipase (73-393) U/L Urine Color Yellow Urine Appearance Clear (Clear) Urine pH 6.0 (4.5-7.5) Ur Specific [place] 1.014 (1.000-1.030) Urine Protein Negative (Negative) Urine Glucose (UA) Negative (Negative) Urine Ketones Negative (Negative) Urine Blood Negative (Negative) Urine Nitrite Negative (Negative) Urine Bilirubin Negative (Negative) Urine Urobilinogen Negative (Negative) Ur Leukocyte Esterase Negative (Negative) COVID-19 Eval [facility] Administered Medications Fentanyl Citrate (Fentanyl Citrate 100 Mcg/2 Ml Vial) 50 mcg IV Q15M PRN PRN Reason: Pain Stop: 10/07/20 09:45 Last Admin: 09/23/20 10:28 Dose: 50 mcg Documented by: [id number] Discontinued Medications Sodium Chloride (Nss) 500 mls @ 999 mls/hr IV .Q31M ESTHER Stop: 09/23/20 10:30 Last Admin: 09/23/20 10:28 Dose: 999 mls/hr Documented by: [id number] Cefoxitin Sodium (Mefoxin) 2,000 mg in 60 mls @ 100 mls/hr IV NOW STA Stop: 09/23/20 12:54 Last Admin: 09/23/20 12:33 Dose: 100 mls/hr Documented by: [id number] Ondansetron HCl (Ondansetron Inj 2 Mg/Ml 2 Ml Vial) 4 mg IV NOW STA Stop: 09/23/20 09:47 Last Admin: 09/23/20 10:28 Dose: 4 mg Documented by: [id number] Imaging Data Radiologist's Impression: Patient: CRISTEL PERLA Admit Date: 09/23/20 MR#: [id number] Address1: [address] [place] [address] Acct ID:[id number] Address2: [facility] Date: 1945 [facility] Zip: [place] [address] Age: 74 Location: ED Sex: F Room/Bed: Att Phy: Diagnosis: ABD PAIN,[facility] PT, REF'D BY JAMES Singh Phy: [facility] Service Date: 09/23/20 Fam Phy: Interpreting Phy: Raman Padilla MD Admit Phy: Ordering Phy: Marv Seay DO cc: ~ XR KUB/Abdomen 1 view CLINICAL HISTORY: RUQ pain COMPARISON STUDY: No previous studies for comparison. FINDINGS: There are vascular calcifications. There are postsurgical changes present within the lumbar spine. There is no pathologic bowel dilatation. There is a barbell shaped metallic stent-like device visualized within the right upper quadrant. IMPRESSION: 1. No evidence of pathologic bowel dilatation. ACT 112: Negative or not required by law. Electronically signed by: Raman Padilla M.D. 09/23/2020 10:24 AM Dictated: 09/23/20 1022 Transcribed: 09/23/20 1022 Patient: CRISTEL PERLA Admit Date: 09/23/20 MR#: [id number] Address1: [address] Acct ID:[id number] Address2: [facility] Date: 1945 [facility] Zip: [place] [address] Age: 74 Location: ED Sex: F Room/Bed: Att Phy: Diagnosis: ABD PAIN,[facility] PT, REF'D BY JAMES Singh Phy: [place] [place] Service Date: 09/23/20 Fam Phy: Interpreting Phy: Rishi Shook MD Admit Phy: Ordering Phy: Marv Seay DO cc: ~ ABDOMINAL ULTRASOUND, RIGHT UPPER QUADRANT HISTORY: Right upper quadrant pain.. COMPARISON: Abdominal ultrasound 01/20/2020. FINDINGS: Pancreas: The pancreatic tail is obscured by overlying bowel gas. The remaining portions of the pancreas are within normal limits. Liver: Nodular contour to the liver with a coarse echotexture consistent with cirrhosis. No hepatic masses or intrahepatic bile duct dilatation. Gallbladder: The gallbladder is completely filled with gallstones. Mild g allbladder wall thickening measuring between 4 and 6 mm. No pericholecystic fluid. The technologist reported a negative sonographic Pearce sign. CBD: 3 mm. Right kidney: Surgically absent. IMPRESSION: 1. The gallbladder is now completely filled gallstones and there is mild gallbladder wall thickening measuring between 4 and 6 mm. However, there is a negative sonographic Pearce sign. Therefore, these findings are equivocal for acute cholecystitis. Clinical correlation recommended or follow-up HIDA scan can be performed. 2. Normal caliber common bile duct. 3. Prior right nephrectomy. 4. Cirrhotic liver. ACT 112: Negative or not required by law. Electronically signed by: Rishi Shook M.D. 09/23/2020 12:06 PM Dictated: 09/23/20 1204 Transcribed: 09/23/20 1204 Patient: CRISTEL PERLA Admit Date: 09/23/20 MR#: [id number] Address1: [address] Acct ID:[id number] Address2: [facility] Date: 1945 [facility] Zip: [place] [address] Age: 74 Location: ED Sex: F Room/Bed: Att Phy: Diagnosis: ABD PAIN,[facility] PT, REF'D BY JAMES Singh Phy: [place] Service Date: 09/23/20 [facility] Phy: Interpreting Phy: Raman Padilla MD Admit Phy: Ordering Phy: Marv Seay DO cc: ~ XR chest 1V portable CLINICAL HISTORY: Pain, radiating to the abdomen COMPARISON STUDY: January 21, 2020 FINDINGS: The heart is enlarged. There is dilatation of the pulmonary arteries, likely secondary to pulmonary arterial hypertension. There is mild chronic interstitial thickening. There is no lobar consolidation. Right basilar opacities are likely atelectatic. There is no free intraperitoneal air.[ IMPRESSION: 1. Cardiomegaly and suspected pulmonary arterial hypertension 2. No evidence of free intraperitoneal air 3. Right basilar opacity statistically atelectatic ACT 112: Negative or not required by law. Electronically signed by: Raman Padilla M.D. 09/23/2020 10:22 AM Dictated: 09/23/20 1020 Transcribed: 09/23/20 1021 Patient: CRISTEL PERLA Admit Date: 09/23/20 MR#: [id number] Address1: [address] Acct ID:[id number] Address2: [facility] Date: 1945 [facility] Zip: [place] [address] Age: 74 Location: ED Sex: F Room/Bed: Att Phy: Diagnosis: ABD PAIN,[facility] PT, REF'D BY JAMES Singh Phy: [facility] Service Date: 09/23/20 [facility] Phy: Interpreting Phy: Ivan Naqvi Admit Phy: Ordering Phy: Natalie Amezcua CRNP cc: ~ ABDOMEN AND PELVIS CT WITHOUT CONTRAST CT DOSE: 743.99 mGycm HISTORY: Acute generalized abdominal pain abdominal pain TECHNIQUE: Multiaxial CT images of the abdomen and pelvis were performed without contrast. A dose lowering technique was utilized adhering to the principles of ALARA. COMPARISON STUDY: Right upper quadrant abdominal ultrasound of same day, CT abdomen and pelvis 01/19/2020, 05/22/2018, 02/25/2018, 10/27/2011. Chest CT 08/30/2020. FINDINGS: Trace left and small right pleural effusions. Mild dependent subsegmental bibasilar atelectasis. Irregular 8 mm solid nodule of the basal right lower lobe redemonstrated. There is no pneumatosis or pneumoperitoneum. Cardiomegaly with coronary artery calcifications. Mural fibrofatty changes of the left and right ventricular apices. The unenhanced spleen, pancreas and adrenal glands are unremarkable. There is a stent-like device which connects the gastric antrum with the gallbladder. Contrast, air and debris is noted within the gallbladder lumen which demonstrates a moderately thickened wall. Cirrhotic morphology of the liver. Mild nonspecific left-sided perinephric stranding. Absent right kidney. No ureteral calculi or obstructive uropathy. Moderate urinary bladder wall thickening with partial distention. Unremarkable uterus. Cystic foci the bilateral kidneys measure up to 3.3 cm on the right and 1.7 cm on the left. These findings appear stable from comparison. Mild nonspecific trace stranding within the presacral tissues. Extensive calcified plaque the abdominal aorta. Surgical clips of the right inguinal tissues. No adenopathy. Mild nonspecific distal esophageal wall thickening. Colonic diverticulosis without acute diverticulitis. Nonvisualization of the appendix. Unremarkable soft tissues. Degenerative changes of the spine, pelvis and hips. Posterior interbody florentin and screw fusion hardware with discectomy changes at L3-L5. IMPRESSION: 1. No bowel obstruction or bowel wall thickening. 2. Stent is noted connecting the gastric antrum with the gallbladder. There is moderate circumferential gallbladder wall thickening with pericholecystic stranding. 3. Unchanged cystic foci of the bilateral adnexa measuring up to 3.3 cm on the right. 4. Cirrhosis. 5. Unchanged 8 mm irregular solid nodule of the basal right lower lobe. 6. Small right pleural effusion. 7. Cardiomegaly. ACT 112: Negative or not required by law. The above report was generated using voice recognition software. It may contain grammatical, syntax or spelling errors. Electronically signed by: Naman Naqvi M.D. 09/23/2020 2:41 PM Dictated: 09/23/201426 Transcribed: 09/23/201426 Blood Pressure Blood Pressure Findings: Elevated blood pressure Blood Pressure Disposition: further management by hospitalist Discharge Plan Visit Data Chief Complaint: Abdominal Pain Stated Complaint: ABD PAIN,[facility] PT, REF'D BY JAMES ED Provider: Marv Seay Discharge Problem: Acute cholecystitis, Abdominal pain, acute, right upper quadrant Patient Disposition: Being Evaluated by Hospitalist Condition: Good Forms Stand Alone Forms: My [facility] Prescriptions Prescriptions: No Action torsemide 20 mg tablet 20 mg PO QAM RF: 0 fluticasone propion-salmeterol [Advair Diskus] 250-50 mcg/dose blister with device 1 inh INHALATION Q12H Qty: 60 RF: 4 acetaminophen 650 mg Tablet Extended Release 650 mg PO BID RF: 0 pravastatin 80 mg tablet 80 mg PO HS RF: 0 levothyroxine 50 mcg tablet 50 mcg PO QAM RF: 0 nitroglycerin 0.4 mg Tablet, Sublingual 0.4 mg sublingual UD PRN (Reason: Chest Pain) RF: 0 oxybutynin chloride 5 mg tablet extended release 24hr 5 mg PO HS RF: 0 omeprazole 20 mg Capsule,Delayed Release(Dr/Ec) 20 mg PO BID RF: 0 folic acid 1 mg Tablet 1 mg PO QAM RF: 0 polyethylene glycol 3350 [GlycoLax] 17 gram/dose Powder 17 g PO QAM RF: 0 albuterol sulfate 90 mcg/actuation Hfa Aerosol Inhaler 2 puff INHALATION Q6H PRN (Reason: Shortness Of Breath) RF: 0 fluticasone propionate [Flonase Allergy Relief] 50 mcg/actuation [place],Suspension 1 spray INTRANASAL BID RF: 0 loratadine 10 mg Tablet 10 mg PO QAM RF: 0 donepezil 10 mg tablet 10 mg PO HS RF: 0 lidocaine [Lidocaine Pain Relief] 4 % Adhesive Patch,Medicated 1 patch TOPICAL QAM RF: 0 metoprolol succinate 50 mg tablet extended release 24 hr 50 mg PO QAM RF: 0 warfarin 4 mg tablet 4 mg PO HS RF: 0 simethicone [Simethicone-80] 80 mg Tablet,Chewable 80 mg PO TID RF: 0 senna 8.6 mg Capsule 8.6 mg PO BID RF: 0 magnesium oxide 200 mg magnesium Tablet 400 mg PO QAM RF: 0 Incruse Ellipta 62.5 mcg/actuation blister with device 1 inh INHALATION QAM RF: 0 Referrals Referrals: Abhijit Lara [Primary Care Provider] -
--- NOTE | 2020-09-23 10:24 | XRay Report ---
XR chest 1V portable CLINICAL HISTORY: Pain, radiating to the abdomen COMPARISON STUDY: January 21, 2020 FINDINGS: The heart is enlarged. There is dilatation of the pulmonary arteries, likely secondary to p ulmonary arterial hypertension. There is mild chronic interstitial thickening. There is no lobar cons olidation. Right basilar opacities are likely atelectatic. There is no free intraperitoneal air.[ IMPRESSION: 1. Cardiomegaly and suspected pulmonary arterial hypertension 2. No evidence of free intraperitoneal air 3. Right basilar opacity statistically atelectatic ACT 112: Negative or not required by law. Electronically signed by: Raman Padilla M.D. 09/23/2020 10:22 AM
--- NOTE | 2020-09-23 10:25 | XRay Report ---
XR KUB/Abdomen 1 view CLINICAL HISTORY: RUQ pain COMPARISON STUDY: No previous studies for comparison. FINDINGS: There are vascular calcifications. There are postsurgical changes present within the lumbar spine. There is no pathologic bowel dilatation. There is a barbell shaped metallic stent-like device visualized within the right upper quadrant. IMPRESSION: 1. No evidence of pathologic bowel dilatation. ACT 112: Negative or not required by law. Electronically signed by: Raman Padilla M.D. 09/23/2020 10:24 AM
[2020-09-23 10:30] LABS: Basophils # (auto) 0.03 K/uL (0-0.2); Basophils % (auto) 0.8 %; Eosinophils # (auto) 0.07 K/uL (0-0.5); Eosinophils % (auto) 1.8 %; Hemoglobin 9.6 g/dL (12.0-16.0); Immature Granulocytes # (auto) 0.03 K/uL (0.00-0.02); Immature Granulocytes % (auto) 0.8 %; Lymphocytes # (auto) 1.05 K/uL (1.2-3.4); Lymphocytes % (auto) 26.6 %; Mean Corpuscular Hemoglobin 35.6 pg (25-34); Mean Corpuscular Volume 111.1 fL (80-100); Mean Platelet Volume 13.9 fL (7.4-10.4); Monocytes # (auto) 0.34 K/uL (0.11-0.59); Monocytes % (auto) 8.6 %; Neutrophils # (auto) 2.42 K/uL (1.4-6.5); Neutrophils % (auto) 61.4 %; Platelet Count 166 K/uL (130-400); RDW Coefficient of Variation 14.3 % (11.5-14.5); RDW Standard Deviation 57.2 fL (36.4-46.3); White Blood Count 3.94 K/uL (4.8-10.8)
[2020-09-23 10:46] LABS: Alanine Aminotransferase 16 U/L (12-78); Albumin Level 3.4 gm/dl (3.4-5.0); Aspartate Aminotransferase 14 U/L (15-37); BUN Creatinine Ratio 28.4 (10-20); Blood Urea Nitrogen 50 mg/dl (7-18); Calcium 8.8 mg/dl (8.5-10.1); Carbon Dioxide 32 mmol/L (21-32); Chloride 107 mmol/L (98-107); Est GFR (African American) 32.4; Glucose 83 mg/dl (70-99); Lipase 151 U/L (73-393); Magnesium 2.3 mg/dl (1.8-2.4); Potassium 4.3 mmol/L (3.5-5.1); Sodium 141 mmol/L (136-145)
[2020-09-23 10:51] LABS: Albumin Globulin Ratio 0.9 (0.9-2); Alkaline Phosphatase 52 U/L (45-117); Bilirubin,Total 0.3 mg/dl (0.2-1); Globulin 3.7 gm/dl (2.5-4.0); Total Protein 7.1 gm/dl (6.4-8.2); Troponin I 0.025 ng/ml (0-0.045)
[2020-09-23 11:04] LABS: Hypogranular Neutrophils 1+; Macrocytosis Present
[2020-09-23 12:00] LABS: INR 2.3 (0.9-1.1); Partial Thromboplastin Ratio 1.4; Partial Thromboplastin Time 39.2 Seconds (21.0-31.0); Prothrombin Time 23.3 Seconds (9.0-12.0)
--- NOTE | 2020-09-23 12:08 | Ultrasound Report ---
ABDOMINAL ULTRASOUND, RIGHT UPPER QUADRANT HISTORY: Right upper quadrant pain.. COMPARISON: Abdominal ultrasound 01/20/2020. FINDINGS: Pancreas: The pancreatic tail is obscured by overlying bowel gas. The remaining portions of the pancr eas are within normal limits. Liver: Nodular contour to the liver with a coarse echotexture consistent with cirrhosis. No hepatic m asses or intrahepatic bile duct dilatation. Gallbladder: The gallbladder is completely filled with gallstones. Mild gallbladder wall thickening m easuring between 4 and 6 mm. No pericholecystic fluid. The technologist reported a negative sonograph ic Pearce sign. CBD: 3 mm. Right kidney: Surgically absent. IMPRESSION: 1. The gallbladder is now completely filled gallstones and there is mild gallbladder wall thickening measuring between 4 and 6 mm. However, there is a negative sonographic Pearce sign. Therefore, these findings are equivocal for acute cholecystitis. Clinical correlation recommended or follow-up HIDA sc an can be performed. 2. Normal caliber common bile duct. 3. Prior right nephrectomy. 4. Cirrhotic liver. ACT 112: Negative or not required by law. Electronically signed by: Rishi Shook M.D. 09/23/2020 12:06 PM
[2020-09-23] MEDS ORDERED: cefOXitin 2,000 MG/60 ML BAG IV STA (12:19)
[2020-09-23 12:57] LABS: Appearance Urine Clear (Clear); Bilirubin Urine Negative (Negative); Blood Urine Negative (Negative); Color Urine Yellow; Glucose Urine UA Negative (Negative); Ketones Urine Negative (Negative); Leukocyte Esterase Urine Negative (Negative); Nitrite Urine Negative (Negative); Protein Urine Negative (Negative); Specific Gravity Urine 1.014 (1.000-1.030); Urobilinogen Urine Negative (Negative)
--- NOTE | 2020-09-23 14:24 | Gastrointestinal Consultation ---
Date of Consultation September 23, 2020 Assessment & Plan (1) Cholelithiasis: (2) Abdominal pain: Pt is a 74 y/o female who presented w c/o RUQ abd pain, nausea, low appetite. She had hx cirrhosis, suspected gallstone pancreatitis, cholecystitis. S/P cholecystoduodenostomy w Axios stent placement 12/2019, as she is a poor candidate for cholecystectomy. LFTs, lipase normal. Her gallbladder u/s today showed gallbladder is now completely filled gallstones and there is mild gallbladder wall thickening measuring between 4 and 6 mm. - Obtain non contrasted CT scan to eval stent patency - Plan for EGD eval and clear debris/sludge in stent - Keep NPO - IVF support Supervising Physician Co-Signing Physician Notes I performed a history and physical examination of the patient today, including specifically on physical exam - soft abdomen. I have discussed the patient's management with the advanced practitioner. Please refer to the nurse practitioner's note for the documented findings and plan of care. EGD to check the Axios stent and clean the stones and place a double pigtail in the axios as there seems to be features of cholecystitis on sono History of Present Illness Reason for Consultation: Abdominal pain Requesting Physician: Dr. Marv Seay Attending Physician: Dr. Amber Silverman History of Present Illness Pt is a 74 y/o female who presented w RUQ abd pain symptoms. While in ED, had large BM but abd photographer still. She denies associated fever, chills, jaundice. Did report had been feeling nauseous, and poor appetite. She has hx of cirrhosis, suspected gallstone pancreatitis, cholecystitis. She is s/p ERCP w choledocholithiasis removal, biliary sphinceterectomy, pancreas and biliary stents placements on 01/21/2020. She is a high risk surgical candidate thus cholecystectomy was deferred. She underwent Axios stent [place] [facility] [place]. CBD stent & choledocholithiasis removed via repeat ERCP 05/04/2020. Her LFTs had since been normal including one in ED today. Lipase also normal. Her gallbladder u/s today showed gallbladder is now completely filled gallstones and there is mild gallbladder wall thickening measuring between 4 and 6 mm. Allergies Allergy/AdvReac Type Severity Reaction Status Date / Time levofloxacin Allergy Intermediate HIVES Verified 09/23/20 10:17 Quinolones Allergy Intermediate HIVES Verified 09/23/20 10:17 ranitidine Allergy Intermediate HIVES Verified 09/23/20 10:17 sulfamethoxazole Allergy Intermediate HIVES Verified 09/23/20 10:17 trimethoprim Allergy Intermediate HIVES Verified 09/23/20 10:17 clarithromycin Allergy Mild HIVES, CAN Verified 09/23/20 10:17 TAKE ZITHROMAX W/O PROB amoxicillin Allergy Unknown HIVES Verified 09/23/20 10:17 omeprazole Allergy Unknown HAS HAD Verified 09/23/20 10:17 PROTONIX tomato AdvReac Unknown GI SYMPTOMS Verified 09/23/20 10:17 Pork AdvReac Unknown GI SYMPTOMS Uncoded 09/23/20 10:17 Home Medications Home Medications Medication Instructions Recorded Confirmed Type acetaminophen 650 mg PO BID 01/19/20 09/23/20 History albuterol sulfate 2 puff INHALATION Q6H PRN 01/19/20 09/23/20 History donepezil 10 mg PO HS 01/19/20 09/23/20 History fluticasone propionate [Flonase 1 spray INTRANASAL BID 01/19/20 09/23/20 History Allergy Relief] folic acid 1 mg PO QAM 01/19/20 09/23/20 History levothyroxine 50 mcg PO QAM 01/19/20 09/23/20 History loratadine 10 mg PO QAM 01/19/20 09/23/20 History nitroglycerin 0.4 mg SUBLINGUAL UD PRN 01/19/20 09/23/20 History omeprazole 20 mg PO BID 01/19/20 09/23/20 History oxybutynin chloride 5 mg PO HS 01/19/20 09/23/20 History polyethylene glycol 3350 [GlycoLax] 17 g PO QAM 01/19/20 09/23/20 History pravastatin 80 mg PO HS 01/19/20 09/23/20 History fluticasone 250 mcg-salmeterol 50 1 inh INHALATION Q12H #60 ea 04/21/20 09/23/20 Rx mcg/dose blistr powdr for inhalation torsemide 20 mg tablet 20 mg PO QAM 04/21/20 09/23/20 History lidocaine [Lidocaine Pain Relief] 1 patch TOPICAL QAM 09/23/20 09/23/20 History magnesium oxide 400 mg PO QAM 09/23/20 09/23/20 History metoprolol succinate 50 mg PO QAM 09/23/20 09/23/20 History senna 8.6 mg PO BID 09/23/20 09/23/20 History simethicone [Simethicone-80] 80 mg PO TID 09/23/20 09/23/20 History umeclidinium [Incruse Ellipta] 1 inh INHALATION QAM 09/23/20 09/23/20 History warfarin 4 mg PO HS 09/23/20 09/23/20 History Patient History Medical History (Updated 09/23/20 @ 16:28 by Micheal Edwards MD) Afib "s/p ablation" Anemia CKD (chronic kidney disease), stage IV COPD (chronic obstructive pulmonary disease) Gallstones GERD (gastroesophageal reflux disease) H/O unilateral nephrectomy "right" Heart disease "mild CAD cath 2007" HTN (hypertension) Hypothyroid Pancreatitis Pulmonary hypertension Surgical History H/O thyroidectomy History of appendectomy Family History Father Heart disease Other Asthma Lung disease Social History Smoking Status: Former smoker packs per day: 1; Years Smoked: 30; Hx Alcohol Use: No Hx Substance Use: No Preferred Language: Indonesian Communication Ability: Effective Outside Plant Supervisor Required: No Beliefs That Will Affect Care: None Current Living Situation: Personal Care Facility Current Living Situation Comment: [facility] Feels Safe at Home: Yes Assistive Devices: Oxygen - Continuous and Walker Review of Systems Review of Systems: All systems reviewed & are unremarkable except as noted in HPI & below Physical Exam Constitutional: WD/WN, vitals as above well groomed, cooperative and comfortable Eyes: PERRL, conjunctivae normal, anicteric sclerae ENMT: external ear and nose normal, oropharynx normal Respiratory: normal respiratory effort, lungs clear to auscultation Cardiovascular: RRR, no murmur, no edema Gastrointestinal (Abdomen): Inspection/Auscultation: + hypoactive bowel sounds Percussion/Palpation: + abdomen tender (RUQ, LLQ) and abdomen soft Skin: no rashes, warm and dry no jaundice Psychiatric: A+Ox3, euthymic affect Lymphatic: no lymphedema Results & Data ([facility]) Vital Signs (Past 12 Hours) Vital Signs Temp Pulse Resp BP Pulse Ox 09/23/20 12:10 55 L 23 09/23/20 12:08 70 24 09/23/20 12:06 157/53 H 09/23/20 11:30 43 L 21 142/51 H 100 09/23/20 11:20 24 98 09/23/20 11:10 52 L 19 100 09/23/20 11:01 49 L 19 154/46 H 100 09/23/20 11:00 60 14 97 09/23/20 10:50 145 H 26 H 100 09/23/20 10:41 54 L 18 96 09/23/20 10:40 23 09/23/20 10:30 48 L 16 149/57 H 100 09/23/20 10:20 66 18 100 09/23/20 10:10 52 L 18 100 09/23/20 10:01 22 133/68 100 09/23/20 10:00 59 L 19 99 09/23/20 09:56 53 L 21 100 09/23/20 09:51 55 L 14 145/83 H 100 09/23/20 09:32 37.1 C 59 L 20 146/60 H 96
--- NOTE | 2020-09-23 14:42 | CT Scan Report ---
ABDOMEN AND PELVIS CT WITHOUT CONTRAST CT DOSE: 743.99 mGycm HISTORY: Acute generalized abdominal pain abdominal pain TECHNIQUE: Multiaxial CT images of the abdomen and pelvis were performed without contrast. A dose lo wering technique was utilized adhering to the principles of ALARA. COMPARISON STUDY: Right upper quadrant abdominal ultrasound of same day, CT abdomen and pelvis 020, 05/22/2018, 02/25/2018, 10/27/2011. Chest CT 08/30/2020. FINDINGS: Trace left and small right pleural effusions. Mild dependent subsegmental bibasilar atelectasis. Irre gular 8 mm solid nodule of the basal right lower lobe redemonstrated. There is no pneumatosis or pneu moperitoneum. Cardiomegaly with coronary artery calcifications. Mural fibrofatty changes of the left and right ventricular apices. The unenhanced spleen, pancreas and adrenal glands are unremarkable. There is a stent-like device whi ch connects the gastric antrum with the gallbladder. Contrast, air and debris is noted within the gal lbladder lumen which demonstrates a moderately thickened wall. Cirrhotic morphology of the liver. Mil d nonspecific left-sided perinephric stranding. Absent right kidney. No ureteral calculi or obstructi ve uropathy. Moderate urinary bladder wall thickening with partial distention. Unremarkable uterus. C ystic foci the bilateral kidneys measure up to 3.3 cm on the right and 1.7 cm on the left. These find ings appear stable from comparison. Mild nonspecific trace stranding within the presacral tissues. Ex tensive calcified plaque the abdominal aorta. Surgical clips of the right inguinal tissues. No adenop athy. Mild nonspecific distal esophageal wall thickening. Colonic diverticulosis without acute diverticulit is. Nonvisualization of the appendix. Unremarkable soft tissues. Degenerative changes of the spine, p [place] and hips. Posterior interbody florentin and screw fusion hardware with discectomy changes at L3-L5. IMPRESSION: 1. No bowel obstruction or bowel wall thickening. 2. Stent is noted connecting the gastric antrum with the gallbladder. There is moderate circumferenti al gallbladder wall thickening with pericholecystic stranding. 3. Unchanged cystic foci of the bilateral adnexa measuring up to 3.3 cm on the right. 4. Cirrhosis. 5. Unchanged 8 mm irregular solid nodule of the basal right lower lobe. 6. Small right pleural effusion. 7. Cardiomegaly. ACT 112: Negative or not required by law. The above report was generated using voice recognition software. It may contain grammatical, syntax o r spelling errors. Electronically signed by: Naman Naqvi M.D. 09/23/2020 2:41 PM
[2020-09-23] MEDS ORDERED: metroNIDAZOLE 500 MG/100 ML BAG IV STA (15:31)
[2020-09-23] MEDS ORDERED: CEFEPIME 2,000 MG in SYRINGE 0 ML IV STA (15:31)
--- NOTE | 2020-09-23 15:59 | History & Physical Report ---
Date of Service September 23, 2020 Assessment & Plan (1) Acute cholecystitis: Cefoxitin given in ER. Broaden antibiotic coverage for acute cholecystitis cefepime and metronidazole (amoxicillin and fluoroquinolone allergy - hives). Not a surgical candidate -unless would consider a tertiary care center per previous evaluation by surgery in December. Now with [place] Axios [place] [facility] [place] Appreciate gastroenterology consult. Plan for EGD eval in clinic debris/sludge and stent, NPO until EGD. (2) Abdominal pain, acute, right upper quadrant: Suspected secondary to cholecystitis as above. (3) Cholelithiasis: As above (4) COPD with emphysema: No current exacerbation. Continue her usual outpatient maintenance inhalers: Incruse Ellipta, Advair or hospital formulary equivalent. (5) HTN (hypertension): Will hold torsemide 20mg PO QAM pending stability of BP overnight (6) Hypothyroid: TSH WNL in December. No need to acutely repeat this. Continue levothyroxine 50 mcg PO daily (7) Cirrhosis: (8) Anemia: Hemoglobin 9.6 at baseline. (9) CKD (chronic kidney disease), stage IV: Creatine 1.75 at baseline. (10) Solitary kidney: (11) DVT prophylaxis: Continue warfarin but at reduced 2mg PO daily dose due to contaminant metronidazole use. Admission and Anticipated Discharge Date Admission Date: 09/23/2020 History of Present Illness Chief Complaint: Abdominal pain Primary Care Provider: [facility] Lea Humphries is a 74 year old female who presents from [facility] to the ER with abdominal pain. While riding in transport today she started noticing a lot of abdominal pain especially while going over bumps in her upper abdomen. She was seen by her PCP and recommended being evaluated at the ER. She has a complex history of gallstones starting in December with gallstone pancreatitis and choledocholelithiasis. She was seen by surgery on that occasion and felt to be too high of a surgical risk given her COPD, liver cirrhosis and pulmonary hypertension although recommended tertiary care center if it did need to be performed. She followed up with [facility] and in January underwent Axios stent insertion to avoid cholecystectomy. The patient feels her current episode is similar to her gallstone pain in the past. No nausea or vomiting. Had a large loose stool bowel movement while in the ER without any relief of her symptoms. Abdominal pain generalized but mostly upper abdomen, radiates to back, severity 6/10 currently. In the ER she has already been seen by gastroenterology who plan on EGD to assess Axios stent patency after CT scan of A/P. No WBC. Allergies Allergy/AdvReac Type Severity Reaction Status Date / Time levofloxacin Allergy Intermediate HIVES Verified 09/23/20 10:17 Quinolones Allergy Intermediate HIVES Verified 09/23/20 10:17 ranitidine Allergy Intermediate HIVES Verified 09/23/20 10:17 sulfamethoxazole Allergy Intermediate HIVES Verified 09/23/20 10:17 trimethoprim Allergy Intermediate HIVES Verified 09/23/20 10:17 clarithromycin Allergy Mild HIVES, CAN Verified 09/23/20 10:17 TAKE ZITHROMAX W/O PROB amoxicillin Allergy Unknown HIVES Verified 09/23/20 10:17 omeprazole Allergy Unknown HAS HAD Verified 09/23/20 10:17 PROTONIX tomato AdvReac Unknown GI SYMPTOMS Verified 09/23/20 10:17 Pork AdvReac Unknown GI SYMPTOMS Uncoded 09/23/20 10:17 Home Medications Home Medications Medication Instructions Recorded Confirmed Type acetaminophen 650 mg PO BID 01/19/20 09/23/20 History albuterol sulfate 2 puff INHALATION Q6H PRN 01/19/20 09/23/20 History donepezil 10 mg PO HS 01/19/20 09/23/20 History fluticasone propionate [Flonase 1 spray INTRANASAL BID 01/19/20 09/23/20 History Allergy Relief] folic acid 1 mg PO QAM 01/19/20 09/23/20 History levothyroxine 50 mcg PO QAM 01/19/20 09/23/20 History loratadine 10 mg PO QAM 01/19/20 09/23/20 History nitroglycerin 0.4 mg SUBLINGUAL UD PRN 01/19/20 09/23/20 History omeprazole 20 mg PO BID 01/19/20 09/23/20 History oxybutynin chloride 5 mg PO HS 01/19/20 09/23/20 History polyethylene glycol 3350 [GlycoLax] 17 g PO QAM 01/19/20 09/23/20 History pravastatin 80 mg PO HS 01/19/20 09/23/20 History fluticasone 250 mcg-salmeterol 50 1 inh INHALATION Q12H #60 ea 04/21/20 09/23/20 Rx mcg/dose blistr powdr for inhalation torsemide 20 mg tablet 20 mg PO QAM 04/21/20 09/23/20 History lidocaine [Lidocaine Pain Relief] 1 patch TOPICAL QAM 09/23/20 09/23/20 History magnesium oxide 400 mg PO QAM 09/23/20 09/23/20 History metoprolol succinate 50 mg PO QAM 09/23/20 09/23/20 History senna 8.6 mg PO BID 09/23/20 09/23/20 History simethicone [Simethicone-80] 80 mg PO TID 09/23/20 09/23/20 History umeclidinium [Incruse Ellipta] 1 inh INHALATION QAM 09/23/20 09/23/20 History warfarin 4 mg PO HS 09/23/20 09/23/20 History Past Med/Surg History Medical History Afib "s/p ablation" Anemia CKD (chronic kidney disease), stage IV COPD (chronic obstructive pulmonary disease) Gallstones GERD (gastroesophageal reflux disease) H/O unilateral nephrectomy "right" Heart disease "mild CAD cath 2008" HTN (hypertension) Hypothyroid Pancreatitis Pulmonary hypertension Surgical History H/O thyroidectomy History of appendectomy Family History Father Heart disease Other Asthma Lung disease Social History Smoking Status: Former smoker packs per day: 1; Years Smoked: 30; Hx Alcohol Use: No Hx Substance Use: No Preferred Language: Luxembourger Communication Ability: Effective Mathematical Sciences Professor Required: No Beliefs That Will Affect Care: None Current Living Situation: [facility] Current Living Situation Comment: [facility] Other Information That Helps Us Care for You: No Feels Safe at Home: Yes Safety Concerns: Feels Safe At This Time Assistive Devices: Oxygen - Continuous Review of Systems Review of Systems: All systems reviewed & are unremarkable except as noted in HPI & below Physical Exam Constitutional: well developed; + not well nourished and no acute distress Eyes: + anicteric sclerae; normal pupil size ENMT: external ear and nose normal, oropharynx normal Neck: trachea midline, no thyromegaly Respiratory: normal respiratory effort, lungs clear to auscultation Cardiovascular: Rate/Rhythm: regular rate and regular rhythm Heart Sounds: + murmur (RUSB systolic) Extremities: normal capillary refill; no calf tenderness and no pedal edema Gastrointestinal (Abdomen): Inspection/Auscultation: abdomen normal to inspection and normal bowel sounds Percussion/Palpation: + abdomen tender (Generalized) and abdomen soft; no guarding and abdomen not rigid Musculoskeletal: no cyanosis or clubbing, extremities motor strength 5/5 Skin: no rashes, warm and dry Neurologic: moves all extremities and awake; not confused Psychiatric: A+Ox3, euthymic affect Genitourinary: no CVA tenderness Results & Data Results & Data ([facility]) Vital Signs (Past 12 Hours) Vital Signs Temp Pulse Resp BP Pulse Ox 09/23/20 14:32 56 L 24 100 09/23/20 14:31 56 L 19 179/68 H 100 09/23/20 14:15 160/83 H 09/23/20 13:50 57 L 23 09/23/20 13:40 57 L 17 100 09/23/20 13:31 69 15 161/80 H 97 09/23/20 13:30 51 L 23 09/23/20 13:20 44 L 16 09/23/20 13:10 65 17 09/23/20 13:01 49 L 17 169/67 H 09/23/20 13:00 69 26 H 09/23/20 12:50 57 L 14 09/23/20 12:40 49 L 17 09/23/20 12:31 50 L 21 162/64 H 100 09/23/20 12:30 51 L 16 09/23/20 12:20 54 L 17 09/23/20 12:10 55 L 23 09/23/20 12:08 70 24 09/23/20 12:06 157/53 H 09/23/20 11:30 43 L 21 142/51 H 100 09/23/20 11:20 24 98 09/23/20 11:10 52 L 19 100 09/23/20 11:01 49 L 19 154/46 H 100 09/23/20 11:00 60 14 97 09/23/20 10:50 145 H 26 H 100 09/23/20 10:41 54 L 18 96 09/23/20 10:40 23 09/23/20 10:30 48 L 16 149/57 H 100 09/23/20 10:20 66 18 100 09/23/20 10:10 52 L 18 100 09/23/20 10:01 22 133/68 100 09/23/20 10:00 59 L 19 99 09/23/20 09:56 53 L 21 100 09/23/20 09:51 55 L 14 145/83 H 100 09/23/20 09:32 37.1 C 59 L 20 146/60 H 96 Diagnostic Findings XR KUB/Abdomen 1 view IMPRESSION: 1. No evidence of pathologic bowel dilatation. ABDOMINAL ULTRASOUND, RIGHT UPPER QUADRANT IMPRESSION: 1. The gallbladder is now completely filled gallstones and there is mild gallbladder wall thickening measuring between 4 and 6 mm. However, there is a negative sonographic Pearce sign. Therefore, these findings are equivocal for acute cholecystitis. Clinical correlation recommended or follow-up HIDA scan can be performed. 2. Normal caliber common bile duct. 3. Prior right nephrectomy. 4. Cirrhotic liver. XR chest 1V portable IMPRESSION: 1. Cardiomegaly and suspected pulmonary arterial hypertension 2. No evidence of free intraperitoneal air 3. Right basilar opacity statistically atelectatic ECG Indication: abdominal pain Rate (beats per minute): 50 Rhythm: sinus bradycardia Findings: + RBBB, + T-wave inversion (Anterior) and + left axis deviation Comparison ECG Date: from (Jan 21, 2020) Change: no significant change Code Status & VTE Plan Code Status Full as discussed with the patient. VTE Prophylaxis Plan VTE Prophylaxis will be ordered: Yes PG Care Time/CCT Total # of Minutes Spent Total Time Spent with Patient: Total time spent is greater than 50% in coordination of care (as documented) at patient's floor/unit and/or counseling patient: Coding Level of Care Code 15233 Initial Inpt Care Lvl 3 Diagnoses Acute cholecystitis K81.0 Abdominal pain, acute, right upper quadrant R10.11 Cholelithiasis K80.20 COPD with emphysema J43.9 HTN (hypertension) I10 Hypothyroid E03.9 Cirrhosis K74.60 Anemia D64.9 CKD (chronic kidney disease), stage IV N18.4 Solitary kidney Q60.0 DVT prophylaxis Z29.9
[2020-09-23] MEDS ORDERED: CEFEPIME 2,000 MG/20 ML VIAL ONE (17:03)
[2020-09-23] MEDS ORDERED: IOVERSOL 50ml IV ONE (17:21)
[2020-09-23] MEDS ORDERED: ePHEDrine sulfate 50 MG/ML AMP IV PRN (17:23)
[2020-09-23] MEDS ORDERED: ATROPINE SULFATE 0.1 MG/ML 10ML SYR IV PRN (17:23)
[2020-09-23] MEDS ORDERED: ONDANSETRON INJ 2 MG/ML 2 ML VIAL IV PRN (17:23)
[2020-09-23] MEDS ORDERED: PHENYLEPHRINE 100MCG/ML 5ML SYR IV PRN (17:23)
[2020-09-23] MEDS ORDERED: LABETALOL HCL IV 5 MG/ML 20ML IV PRN (17:23)
[2020-09-23] MEDS ORDERED: PROPOFOL IV EMULSION 10 MG/ML 20 ML VIAL IV ONE (17:33)
[2020-09-23] MEDS ORDERED: KETAMINE 50 MG/5 ML SYRINGE ONE (17:33)
--- NOTE | 2020-09-23 17:40 | Anesthesiology Consultation ---
Date of Service September 23, 2020 Covid 19 negative today. Assessment & Plan (1) Encounter for pre-operative examination: Chart Review Chart Review: Acceptable Risk for Surgery (necessary) and Patient NOT seen in Pre Admission Testing Consults Requested none History Surgery Operation Date: 09/23/20 12:40 Proposed Procedures p Esophagogastroduodenoscopy - Amber Silverman MD Height/Weight Weight: 70 kg Allergies Allergy/AdvReac Type Severity Reaction Status Date / Time levofloxacin Allergy Intermediate HIVES Verified 09/23/20 10:17 Quinolones Allergy Intermediate HIVES Verified 09/23/20 10:17 ranitidine Allergy Intermediate HIVES Verified 09/23/20 10:17 sulfamethoxazole Allergy Intermediate HIVES Verified 09/23/20 10:17 trimethoprim Allergy Intermediate HIVES Verified 09/23/20 10:17 clarithromycin Allergy Mild HIVES, CAN Verified 09/23/20 10:17 TAKE ZITHROMAX W/O PROB amoxicillin Allergy Unknown HIVES Verified 09/23/20 10:17 omeprazole Allergy Unknown HAS HAD Verified 09/23/20 10:17 PROTONIX tomato AdvReac Unknown GI SYMPTOMS Verified 09/23/20 10:17 Pork AdvReac Unknown GI SYMPTOMS Uncoded 09/23/20 10:17 Medications Home Medications Medication Instructions Recorded Confirmed Last Taken acetaminophen 650 mg PO BID 01/19/20 09/23/20 09/22/20 08:30 albuterol sulfate 2 puff INHALATION Q6H PRN 01/19/20 09/23/20 Unknown donepezil 10 mg PO HS 01/19/20 09/23/20 09/21/20 20:30 fluticasone propionate [Flonase 1 spray INTRANASAL BID 01/19/20 09/23/20 09/22/20 08:30 Allergy Relief] folic acid 1 mg PO QAM 01/19/20 09/23/20 09/22/20 levothyroxine 50 mcg PO QAM 01/19/20 09/23/20 09/22/20 loratadine 10 mg PO QAM 01/19/20 09/23/20 09/22/20 nitroglycerin 0.4 mg SUBLINGUAL UD PRN 01/19/20 09/23/20 Unknown omeprazole 20 mg PO BID 01/19/20 09/23/20 09/22/20 08:30 oxybutynin chloride 5 mg PO HS 01/19/20 09/23/20 09/21/20 20:30 polyethylene glycol 3350 [GlycoLax] 17 g PO QAM 01/19/20 09/23/20 09/22/20 pravastatin 80 mg PO HS 01/19/20 09/23/20 09/21/20 20:30 fluticasone 250 mcg-salmeterol 50 1 inh INHALATION Q12H #60 ea 04/21/20 09/23/20 09/22/20 08:30 mcg/dose blistr powdr for inhalation torsemide 20 mg tablet 20 mg PO QAM 04/21/20 09/23/20 09/22/20 lidocaine [Lidocaine Pain Relief] 1 patch TOPICAL [facility] 09/23/20 09/23/20 09/22/20 magnesium oxide 400 mg PO QA 09/23/20 09/23/20 09/22/20 metoprolol succinate 50 mg PO QA 09/23/20 09/23/20 09/22/20 senna 8.6 mg PO BID 09/23/20 09/23/20 09/22/20 08:30 simethicone [Simethicone-80] 80 mg PO TID 09/23/20 09/23/20 09/22/20 08:30 umeclidinium [Incruse Ellipta] 1 inh INHALATION QA 09/23/20 09/23/20 09/22/20 warfarin 4 mg PO HS 09/23/20 09/23/20 09/21/20 20:30 Active Medications Generic Name Dose Route Start Last Admin Trade Name Freq PRN Reason Stop Dose Admin Fentanyl Citrate 50 mcg 09/23/20 09:46 09/23/20 10:28 Fentanyl Citrate 100 Mcg/2 Ml Vial IV 10/07/20 09:45 50 mcg Q15M PRN Administration Pain NPO Date Last Intake of Fluids: 09/23/20 Time Last Intake of Fluids: 07:00 Date Last Intake of Solids: 09/23/20 Time Last Intake of Solids: 07:00 Past Medical History Medical History Afib "s/p ablation" Anemia CKD (chronic kidney disease), stage IV COPD (chronic obstructive pulmonary disease) Gallstones GERD (gastroesophageal reflux disease) H/O unilateral nephrectomy "right" Heart disease "mild CAD cath 2007" HTN (hypertension) Hypothyroid Pancreatitis Pulmonary hypertension Past Family History Family History Father Heart disease Other Asthma Lung disease Past Surgical History Surgical History H/O thyroidectomy History of appendectomy Social History Smoking Status: Former smoker tobacco type: cigarettes Hx Alcohol Use: No Hx Substance Use: No Physical Exam Vital Signs Last Vital Signs Temp 37.4 C 09/23/20 17:24 Pulse 56 L 09/23/20 17:24 Resp 20 09/23/20 17:24 BP 152/77 H 09/23/20 17:24 Pulse Ox 97 09/23/20 17:24 Testing Laboratory Results 09/23/20 10:00 09/23/20 10:00 PT 23.3 Seconds (9.0-12.0) H 09/23/20 11:37 INR 2.3 (0.9-1.1) H 09/23/20 11:37 APTT 39.2 Seconds (21.0-31.0) H 09/23/20 11:37 Urine Color Yellow 09/23/20 12:45 Urine Appearance Clear (Clear) 09/23/20 12:45 Urine pH 6.0 (4.5-7.5) 09/23/20 12:45 Ur Specific Howell 1.014 (1.000-1.030) 09/23/20 12:45 Urine Protein Negative (Negative) 09/23/20 12:45 Urine Glucose (UA) Negative (Negative) 09/23/20 12:45 Urine Ketones Negative (Negative) 09/23/20 12:45 Urine Nitrite Negative (Negative) 09/23/20 12:45 Ur Leukocyte Esterase Negative (Negative) 09/23/20 12:45 Electrocardiogram Date: 09/23/20 Findings: + SB @ (50), + RBBB and + T wave inversion (lateral leads) Chest X-Ray Date: 09/23/20 INICAL HISTORY: Pain, radiating to the abdomen COMPARISON STUDY: January 21, 2020 FINDINGS: The heart is enlarged. There is dilatation of the pulmonary arteries, likely secondary to pulmonary arterial hypertension. There is mild chronic interstitial thickening. There is no lobar consolidation. Right basilar opacities are likely atelectatic. There is no free intraperitoneal air.[ IMPRESSION: 1. Cardiomegaly and suspected pulmonary arterial hypertension 2. No evidence of free intraperitoneal air 3. Right basilar opacity statistically atelectatic ACT 112: Negative or not required by law. Electronically signed by: Raman Padilla M.D. 09/23/2020 10:22 AM Dictated: 09/23/20 1020 Transcribed: 09/23/20 1021 Echocardiogram Date: 06/10/20 LV Function: normal Other Findings: + LVH RVSP >60, mod TR
--- NOTE | 2020-09-23 18:31 | Operative Report ---
Post Operative Report Pre & Post Diagnosis Operation Date: 09/23/20 12:40 Pre-Op Diagnosis: Gall Bladder with Food Impaction; Abdominal Pain Post-Op Diagnosis: Gall Bladder with Food Impaction; Abdominal Pain I identified the patient and participated in the time-out.: Yes Procedure Operation Date: 09/23/20 12:40 Actual Procedures p Esophagogastroduodenoscopy(Not Applicable) - Amber Silverman MD Surgeon Amber Silverman MD Sack Lifter None Estimated Blood Loss 0 Findings See Below (Gallbladder with food impaction, removed and double pigtain stent placed) Specimens None Description of Procedure EGD I attest to the content of the Intraoperative Record and any orders documented therein. Any exceptions are noted below.
--- NOTE | 2020-09-23 18:49 | Anesthesiology Progress Note ---
Date of Service September 23, 2020 Anesthesia Post Procedure Vital Signs Vital Signs: Temp Pulse Pulse Resp BP BP Pulse Ox 09/23/20 17:24 37.4 C 56 L 20 152/77 H 97 09/23/20 16:30 45 L 15 96 09/23/20 15:31 53 L 21 159/53 H 100 09/23/20 15:01 50 L 15 148/51 H 100 09/23/20 14:32 56 L 24 100 09/23/20 14:31 56 L 19 179/68 H 100 09/23/20 14:15 160/83 H 09/23/20 13:50 57 L 23 09/23/20 13:40 57 L 17 100 09/23/20 13:31 69 15 161/80 H 97 09/23/20 13:30 51 L 23 09/23/20 13:20 44 L 16 09/23/20 13:10 65 17 09/23/20 13:01 49 L 17 169/67 H 09/23/20 13:00 69 26 H 09/23/20 12:50 57 L 14 09/23/20 12:40 49 L 17 09/23/20 12:31 50 L 21 162/64 H 100 09/23/20 12:30 51 L 16 09/23/20 12:20 54 L 17 09/23/20 12:10 55 L 23 09/23/20 12:08 70 24 09/23/20 12:06 157/53 H 09/23/20 11:30 43 L 21 142/51 H 100 09/23/20 11:20 24 98 09/23/20 11:10 52 L 19 100 09/23/20 11:01 49 L 19 154/46 H 100 09/23/20 11:00 60 14 97 09/23/20 10:50 145 H 26 H 100 09/23/20 10:41 54 L 18 96 09/23/20 10:40 23 09/23/20 10:30 48 L 16 149/57 H 100 09/23/20 10:20 66 18 100 09/23/20 10:10 52 L 18 100 09/23/20 10:01 22 133/68 100 09/23/20 10:00 59 L 19 99 09/23/20 09:56 53 L 21 100 09/23/20 09:51 55 L 14 145/83 H 100 09/23/20 09:32 37.1 C 59 L 20 146/60 H 96 Pain Intensity Right Abdomen: Pain Intensity: 2 Transfer of Care Handoff Completed per policy Notes Mental Status: alert / awake / arousable Patient Amnestic to Procedure: Yes Nausea / Vomiting: adequately controlled Pain: adequately controlled Airway Patency, RR, SpO2: stable & adequate BP & HR: stable & adequate Hydration State: stable & adequate Anesthetic Complications: no major complications apparent and Pt Satisfied with anesthetic care
--- NOTE | 2020-09-23 19:03 | Gastroenterology Progress Note ---
Date of Service September 23, 2020 Subjective EGD done, the Axios stent is in place however was occluded with impacted food debris. The was cleaned out from all debris. A plastic double pigtail stent placed inside the axios to decrease the risk of occlusion. Recommend: IV ABx while inpatient in view of cholecystitis. Please complete a 7 days course with PO ABx upon discharge. Recall GI if needed. Results & Data ([facility]) Vital Signs (Past 12 Hours) Vital Signs Temp Pulse Pulse Pulse Resp BP BP 09/23/20 18:45 66 20 138/82 09/23/20 18:37 36.6 C 79 18 134/71 09/23/20 17:24 37.4 C 56 L 20 152/77 H 09/23/20 16:30 45 L 15 09/23/20 15:31 53 L 21 159/53 H 09/23/20 15:01 50 L 15 148/51 H 09/23/20 14:32 56 L 24 09/23/20 14:31 56 L 19 179/68 H 09/23/20 14:15 160/83 H 09/23/20 13:50 57 L 23 09/23/20 13:40 57 L 17 09/23/20 13:31 69 15 161/80 H 09/23/20 13:30 51 L 23 09/23/20 13:20 44 L 16 09/23/20 13:10 65 17 09/23/20 13:01 49 L 17 169/67 H 09/23/20 13:00 69 26 H 09/23/20 12:50 57 L 14 09/23/20 12:40 49 L 17 09/23/20 12:31 50 L 21 162/64 H 09/23/20 12:30 51 L 16 09/23/20 12:20 54 L 17 09/23/20 12:10 55 L 23 09/23/20 12:08 70 24 09/23/20 12:06 157/53 H 09/23/20 11:30 43 L 21 142/51 H 09/23/20 11:20 24 09/23/20 11:10 52 L 19 09/23/20 11:01 49 L 19 154/46 H 09/23/20 11:00 60 14 09/23/20 10:50 145 H 26 H 09/23/20 10:41 54 L 18 09/23/20 10:40 23 09/23/20 10:30 48 L 16 149/57 H 09/23/20 10:20 66 18 09/23/20 10:10 52 L 18 09/23/20 10:01 22 133/68 09/23/20 10:00 59 L 19 09/23/20 09:56 53 L 21 09/23/20 09:51 55 L 14 145/83 H 09/23/20 09:32 37.1 C 59 L 20 146/60 H Pulse Ox 09/23/20 18:45 100 09/23/20 18:37 98 09/23/20 17:24 97 09/23/20 16:30 96 09/23/20 15:31 100 09/23/20 15:01 100 09/23/20 14:32 100 09/23/20 14:31 100 09/23/20 14:15 09/23/20 13:50 09/23/20 13:40 100 09/23/20 13:31 97 09/23/20 13:30 09/23/20 13:20 09/23/20 13:10 09/23/20 13:01 09/23/20 13:00 09/23/20 12:50 09/23/20 12:40 09/23/20 12:31 100 09/23/20 12:30 09/23/20 12:20 09/23/20 12:10 09/23/20 12:08 09/23/20 12:06 09/23/20 11:30 100 09/23/20 11:20 98 09/23/20 11:10 100 09/23/20 11:01 100 09/23/20 11:00 97 09/23/20 10:50 100 09/23/20 10:41 96 09/23/20 10:40 09/23/20 10:30 100 09/23/20 10:20 100 09/23/20 10:10 100 09/23/20 10:01 100 09/23/20 10:00 99 09/23/20 09:56 100 09/23/20 09:51 100 09/23/20 09:32 96
[2020-09-23] MEDS ORDERED: CEFEPIME CONSULT ACTIVE PRN (19:54)
[2020-09-23] MEDS ORDERED: PATIENT'S HEIGHT AND/OR WEIGHT NEEDED SCH (20:00)
[2020-09-23] MEDS ORDERED: PNEUMOCOCCAL ADMINISTRATION CHARGE ONE (20:15)
[2020-09-23] MEDS ORDERED: PNEUMOCOCCAL POLYSACCHARIDES 25 MCG/0.5 ML VIAL/SYR IM ONE (20:15)
--- NOTE | 2020-09-23 20:30 | GI REPORT ---
Patient Name: Lea Humphries Procedure Date: 09/23/2020 5:44 PM Date of : 1945 Admit Type: Emergency Department Age: 74 Gender: Female Attending MD: Amber Silverman MD Procedure: Upper GI endoscopy Providers: Amber Silverman MD Referring MD: Lenin Guerrero, Micheal Edwards Md Indications: Abnormal CT of the GI tract Medicines: Propofol per Anesthesia Complications: No immediate complications. Estimated Blood Loss: Estimated blood loss: none. Procedure: Pre-Anesthesia Assessment: - Prior to the procedure, a History and Physical was performed, and patient medications, allergies and sensitivities were reviewed. The patient's tolerance of previous anesthesia was reviewed. - The risks and benefits of the procedure and the sedation options and risks were discussed with the patient. All questions were answered and informed consent was obtained. - Patient identification and proposed procedure were verified prior to the procedure by the physician and the nurse. The procedure was verified in the procedure room. - Pre-procedure physical examination revealed no contraindications to sedation. After obtaining informed consent, the endoscope was passed under direct vision. Throughout the procedure, the patient's blood pressure, pulse, and oxygen saturations were monitored continuously. The Endoscope was introduced through the mouth, and advanced to the second part of duodenum. The upper GI endoscopy was accomplished without difficulty. The patient tolerated the procedure well. Findings: The examined esophagus was normal. The entire examined stomach was normal. A previously placed Axios metal stent was seen in the duodenal bulb. The stent lumen was totally occluded with large amount of food debris which was removed with a Raptor grasping device and York net. After cleaning the entire gallbladder from all food particles, a 0.035 inch guidewire was placed and coiled in the gallbladder under fluoroscopy. Contrast was injected, no extravasation/ leak seen from the gallbladder. A 10 Kinyarwanda 4 cm double pigtail Douglas-Cook plastic stent was placed inside the Axios stent lumen between the gallbladder and the duodenum to prevent future occlusion of the stent lumen. I personally interpreted the fluoroscopy images. The second portion of the duodenum was normal. Impression: - Normal esophagus. - Normal stomach. - Cholecystoduodenostomy Axios stent occluded by food particles. This was cleaned. A 4 cm double pigtail stent placed inside the Axios stent. - Normal second portion of the duodenum. Recommendation: - Return patient to hospital [place] for ongoing care. - IV ABx while inpatient then complete a 7 days course of PO ABx upon discharge. - Clear liquids today then advance tomorrow. - Recall GI if needed. Amber Silverman MD 09/23/2020 8:30:05 PM This report has been signed electronically. Note Initiated On: 09/23/2020 5:44 PM Number of Addenda: 0 I attest to the content of the Intraoperative Record and orders documented therein, exceptions below {[id number]}
[2020-09-23] MEDS: DONEPEZIL HCL 10 MG TAB PO SCH (22:05)
[2020-09-23] MEDS: FLUTICASONE PROPIONATE NA SPR 16 GM BTL NAE SCH (22:05)
[2020-09-23] MEDS: WARFARIN SOD 2 MG TAB PO SCH (22:05)
[2020-09-23] MEDS: SIMETHICONE 80 MG CHEW PO SCH (22:06)
[2020-09-23] MEDS: OXYBUTYNIN CHLORIDE XL 5 MG TABCR PO SCH (22:06)
[2020-09-23] MEDS: PRAVASTATIN SOD 40 MG TAB PO SCH (22:07)
[2020-09-23] MEDS: PANTOprazole 40 MG TAB PO SCH (22:07)
[2020-09-23] MEDS: ACETAMINOPHEN 325 MG TAB PO SCH (22:08)
[2020-09-23] MEDS: SENNA 8.6 MG TAB PO SCH (22:08)
--- NOTE | 2020-09-23 22:16 | Electrocardiogram Report ---
Test Reason : Blood Pressure : / mmHG Vent. Rate : 050 BPM Atrial Rate : 050 BPM P-R Int : 196 ms QRS Dur : 160 ms QT Int : 504 ms P-R-T Axes : 034 -39 -18 degrees QTc Int : 459 ms Sinus bradycardia Left axis deviation Right bundle branch block T wave abnormality, consider anterior ischemia Abnormal ECG When compared with ECG of 21-JAN-2020 06:52, QT has shortened Confirmed by Griffin Mackenzie ([id number]) on 09/23/2020 10:16:19 PM Referred By: Reza Guerrero Confirmed By:Griffin Mackenzie
[2020-09-24] MEDS: metroNIDAZOLE 500 MG/100 ML BAG IV SCH ×3 (01:54→18:08)
[2020-09-24] MEDS: LEVOTHYROXINE SODIUM 50 MCG TABLET PO SCH (05:01)
[2020-09-24] MEDS: FLUTICASONE/VILANTEROL 100/25MCG 14 PUFFS/INHALER INH SCH (09:24)
[2020-09-24] MEDS: FOLIC ACID 1 MG TAB PO SCH (09:25)
[2020-09-24] MEDS: FLUTICASONE PROPIONATE NA SPR 16 GM BTL NAE SCH ×2 (09:25→21:10)
[2020-09-24] MEDS: LIDOCAINE 5% 1 PATCH TD SCH (09:26)
[2020-09-24] MEDS: LORATADINE 10 MG TAB PO SCH (09:26)
[2020-09-24] MEDS: SIMETHICONE 80 MG CHEW PO SCH ×3 (09:27→21:11)
[2020-09-24] MEDS: PANTOprazole 40 MG TAB PO SCH ×2 (09:27→21:12)
[2020-09-24] MEDS: MAGNESIUM OXIDE 400 MG TAB PO SCH (09:27)
[2020-09-24] MEDS: ACETAMINOPHEN 325 MG TAB PO SCH ×2 (09:28→21:12)
[2020-09-24] MEDS: POLYETHYLENE (MIRALAX) 17 GM PACK PO SCH (09:28)
[2020-09-24] MEDS: SENNA 8.6 MG TAB PO SCH ×2 (09:28→21:11)
[2020-09-24 09:40] LABS: Hematocrit (blood only) 30.7 % (37-47); Hemoglobin 9.5 g/dL (12.0-16.0); Mean Corpuscular Hemoglobin 35.2 pg (25-34); Mean Corpuscular Hgb Conc 30.9 g/dL (32-36); Mean Corpuscular Volume 113.7 fL (80-100); Mean Platelet Volume 13.9 fL (7.4-10.4); Platelet Count 154 K/uL (130-400); RDW Coefficient of Variation 14.4 % (11.5-14.5); RDW Standard Deviation 58.7 fL (36.4-46.3); White Blood Count 4.07 K/uL (4.8-10.8)
[2020-09-24 09:54] LABS: INR 2.4 (0.9-1.1); Prothrombin Time 24.5 Seconds (9.0-12.0)
[2020-09-24 10:25] LABS: BUN Creatinine Ratio 24.7 (10-20); Calcium 8.6 mg/dl (8.5-10.1); Creatinine Clr Calc Pharmacy 22.2 ml/min; Est GFR (African American) 30.1; Potassium 5.1 mmol/L (3.5-5.1)
[2020-09-24] MEDS: UMECLIDINIUM BROMIDE 62.5MCG/BLISTER 7 PUFFS/INHALER INH SCH (11:13)
--- NOTE | 2020-09-24 13:36 | Hospitalist Progress Note ---
Date of Service September 24, 2020 Assessment & Plan (1) Acute cholecystitis: Continue cefepime and flagyl IV . Not a good surgical candidate per GI. Has functioning Axios stent placement at [facility] in January. Taken for EGD where stent was cleared out from obstructing food debris and plastic stent placed with Axios stent. (2) Abdominal pain, acute, right upper quadrant: Suspected secondary to cholecystitis as above. (3) Cholelithiasis: As above (4) COPD with emphysema: No current exacerbation. Continue her usual outpatient maintenance inhalers: Incruse Ellipta, Advair or hospital formulary equivalent. (5) HTN (hypertension): Will hold torsemide 20mg PO QAM pending stability of BP overnight (6) Hypothyroid: TSH WNL in December. No need to acutely repeat this. Continue levothyroxine 50 mcg PO daily (7) Cirrhosis: Noted history (8) Anemia: Macrocytic - Hemoglobin at baseline. (9) CKD (chronic kidney disease), stage IV: Creatine 1.86 which is near baseline (10) Solitary kidney: (11) Paroxysmal atrial fibrillation: Continue Warfarin, does not appear to be on rate control medications (12) DVT prophylaxis: Continue warfarin but at reduced 2mg PO daily dose due to contaminant metronidazole use. dispo: If tolerating advancing diet today can discharge tomorrow back to [facility] Admission and Anticipated Discharge Date Admission Date: September 23, 2020 Subjective Ms. Humphries has no further abdominal pain, tolerating clear liquids. No complaints. ROS Constitutional: no chills, aches, sweats or fever Respiratory: no sob,cough, sputum, or wheezing Cardiac: no chest pain, palpitations, edema, orthopnea or lightheadedness GI: no abdominal pain, nausea, vomiting, diarrhea or constipation : no dysuria or hesitancy Extremities: no joint pain or weakness Skin: no rash All other systems reviewed and negative Physical Exam Physical Exam: General: no distress Eyes: normal inspection, PERLL Respiratory: chest non tender, clear to auscultation, normal breath sounds, no respiratory distress, no accessory muscle use Cardiac: regular rate and rhythm, no rub or gallop, no murmur, no edema, no jvd GI/: active bowel sounds, no abd pain or tenderness, soft, non distended Extremities: normal range of motion, normal strength, non tender Neuro/Psych: alert and oriented x 3, normal mood and affect Skin: normal color, dry Results & Data Results & Data ([facility]) Vital Signs (Past 12 Hours) Vital Signs Temp Pulse Pulse Resp BP BP Pulse Ox 09/24/20 09:15 37.0 C 60 16 108/75 95 09/24/20 07:03 37.0 C 60 16 108/75 95 09/24/20 03:41 36.8 C 63 16 123/66 96 PG Care Time/CCT Total # of Minutes Spent Total Time Spent with Patient: Total time spent is greater than 50% in coordination of care (as documented) at patient's floor/unit and/or counseling patient: Coding Level of Care Code 53529 Subseq Hosp Care Lvl 2 Diagnoses Acute cholecystitis K81.0 Abdominal pain, acute, right upper quadrant R10.11 Cholelithiasis K80.20 COPD with emphysema J43.9 HTN (hypertension) I10 Hypothyroid E03.9 Cirrhosis K74.60 Anemia D64.9 CKD (chronic kidney disease), stage IV N18.4 Solitary kidney Q60.0 Paroxysmal atrial fibrillation I48.0 DVT prophylaxis Z29.9
[2020-09-24] MEDS ORDERED: CEFEPIME 1,000 MG in SYRINGE 0 ML IV SCH (18:00)
[2020-09-24] MEDS: OXYBUTYNIN CHLORIDE XL 5 MG TABCR PO SCH (21:11)
[2020-09-24] MEDS: PRAVASTATIN SOD 40 MG TAB PO SCH (21:11)
[2020-09-24] MEDS: WARFARIN SOD 2 MG TAB PO SCH (21:11)
[2020-09-24] MEDS: DONEPEZIL HCL 10 MG TAB PO SCH (21:11)
[2020-09-25] MEDS: metroNIDAZOLE 500 MG/100 ML BAG IV SCH ×2 (01:33→10:52)
[2020-09-25] MEDS ORDERED: HYDROmorphone INJ 0.5 MG/0.5 ML SYR IV ONE (01:34)
[2020-09-25] MEDS: ACETAMINOPHEN 325 MG TAB PO SCH ×6 (02:04→22:36)
[2020-09-25] MEDS: LEVOTHYROXINE SODIUM 50 MCG TABLET PO SCH (05:48)
[2020-09-25 07:24] LABS: INR 3.2 (0.9-1.1); Potassium 4.7 mmol/L (3.5-5.1); Prothrombin Time 31.4 Seconds (9.0-12.0)
[2020-09-25 07:33] LABS: Basophils # (auto) 0.05 K/uL (0-0.2); Basophils % (auto) 1.7 %; Eosinophils # (auto) 0.09 K/uL (0-0.5); Hematocrit (blood only) 27.3 % (37-47); Hemoglobin 8.7 g/dL (12.0-16.0); Immature Granulocytes # (auto) 0.03 K/uL (0.00-0.02); Lymphocytes # (auto) 0.63 K/uL (1.2-3.4); Lymphocytes % (auto) 21.1 %; Macrocytosis Present; Mean Corpuscular Hemoglobin 35.7 pg (25-34); Mean Corpuscular Hgb Conc 31.9 g/dL (32-36); Mean Corpuscular Volume 111.9 fL (80-100); Mean Platelet Volume 13.6 fL (7.4-10.4); Neutrophils # (auto) 1.89 K/uL (1.4-6.5); Neutrophils % (auto) 63.2 %; Ovalocytes 1+; Platelet Count 125 K/uL (130-400); Platelet Estimate Decreased (Normal); RDW Coefficient of Variation 14.3 % (11.5-14.5); RDW Standard Deviation 57.7 fL (36.4-46.3); Red Blood Count 2.44 M/uL (4.2-5.4); White Blood Count 2.99 K/uL (4.8-10.8)
[2020-09-25 07:44] LABS: Bilirubin,Total 0.4 mg/dl (0.2-1)
[2020-09-25 07:57] LABS: BUN Creatinine Ratio 22.2 (10-20); Creatinine Clr Calc Pharmacy 23.6 ml/min; Est GFR (African American) 32.4
[2020-09-25 08:06] LABS: Albumin Globulin Ratio 0.9 (0.9-2); Calcium 8.6 mg/dl (8.5-10.1); Globulin 3.2 gm/dl (2.5-4.0); Total Protein 6.2 gm/dl (6.4-8.2)
[2020-09-25] MEDS: UMECLIDINIUM BROMIDE 62.5MCG/BLISTER 7 PUFFS/INHALER INH SCH (08:35)
[2020-09-25] MEDS: FLUTICASONE/VILANTEROL 100/25MCG 14 PUFFS/INHALER INH SCH (08:35)
[2020-09-25] MEDS: FLUTICASONE PROPIONATE NA SPR 16 GM BTL NAE SCH ×2 (08:35→20:42)
[2020-09-25] MEDS: LIDOCAINE 5% 1 PATCH TD SCH (08:36)
[2020-09-25] MEDS: FOLIC ACID 1 MG TAB PO SCH (08:37)
[2020-09-25] MEDS: LORATADINE 10 MG TAB PO SCH (08:37)
[2020-09-25] MEDS: MAGNESIUM OXIDE 400 MG TAB PO SCH (08:37)
[2020-09-25] MEDS: SIMETHICONE 80 MG CHEW PO SCH ×3 (08:37→20:37)
[2020-09-25] MEDS: PANTOprazole 40 MG TAB PO SCH ×2 (08:38→20:39)
[2020-09-25] MEDS: POLYETHYLENE (MIRALAX) 17 GM PACK PO SCH (08:39)
[2020-09-25] MEDS: SENNA 8.6 MG TAB PO SCH ×2 (08:39→20:38)
[2020-09-25] MEDS: TRIAMCINOLONE ACET NASAL SPRAY 10.8ML BTL NAE SCH (11:37)
[2020-09-25] MEDS: METOPROLOL SUCC 50MG EXT REL TAB PO SCH (13:32)
--- NOTE | 2020-09-25 16:09 | Hospitalist Progress Note ---
Date of Service September 25, 2020 Assessment & Plan (1) Acute cholecystitis: DC cefepime due to pancytopenia and flagyl and change to Ertapenem. Patient has multiple medication allergies making a po regimen difficult. Will start ertapenem in the hospital and assess tolerance as she is allergic to penicillins. US guided IV ordered. Will need IV abx for home - per GI will need 7 days of abx at discharge Not a good surgical candidate per GI. Has functioning Axios stent placement at [facility] in January. Taken for EGD where stent was cleared out from obstructing food debris and plastic stent placed with Axios stent. (2) Abdominal pain, acute, right upper quadrant: Suspected secondary to cholecystitis as above. (3) Cholelithiasis: As above (4) COPD with emphysema: No current exacerbation. Continue her usual outpatient maintenance inhalers: Incruse Ellipta, Advair or hospital formulary equivalent. (5) HTN (hypertension): Resume torsmide (6) Hypothyroid: TSH WNL in December. No need to acutely repeat this. Continue levothyroxine 50 mcg PO daily (7) Cirrhosis: Noted history (8) Anemia: Macrocytic - Hemoglobin at baseline. (9) CKD (chronic kidney disease), stage IV: Creatine 1.7 which is baseline (10) Solitary kidney: (11) Paroxysmal atrial fibrillation: Hold warfarin for tonight for INR 3.2, does not appear to be on rate control medications (12) Pancytopenia: May be secondary to cefepime administration. Will discontinue cefepime and use IV ertapenem (13) DVT prophylaxis: Hold warfarin for INR 3.2 - was already getting reduced dose of 2mg PO daily dose due to contaminant metronidazole use dispo: If tolerating advancing diet today can discharge tomorrow back to [facility] Admission and Anticipated Discharge Date Admission Date: September 23, 2020 Subjective Ms. Humphries is having some generalized belly pain after eating lunch. Her headache from this morning is improving. She did have a bowel movement ROS Constitutional: no chills, aches, sweats or fever Respiratory: no sob,cough, sputum, or wheezing Cardiac: no chest pain, palpitations, edema, orthopnea or lightheadedness GI: no abdominal pain, nausea, vomiting, diarrhea or constipation : no dysuria or hesitancy Extremities: no joint pain or weakness Skin: no rash All other systems reviewed and negative Physical Exam Physical Exam: General: no distress Eyes: normal inspection, PERLL Respiratory: chest non tender, clear to auscultation, normal breath sounds, no respiratory distress, no accessory muscle use Cardiac: regular rate and rhythm, no rub or gallop, no murmur, no edema, no jvd GI/: active bowel sounds, no abd pain or tenderness, soft, non distended Extremities: normal range of motion, normal strength, non tender Neuro/Psych: alert and oriented x 3, normal mood and affect Skin: normal color, dry Results & Data Results & Data ([facility]) Vital Signs (Past 12 Hours) Vital Signs Temp Pulse Resp BP Pulse Ox 09/25/20 15:17 36.8 C 59 L 18 136/70 95 09/25/20 07:51 37.2 C 64 18 144/56 H 92 PG Care Time/CCT Total # of Minutes Spent Total Time Spent with Patient: Total time spent is greater than 50% in coordination of care (as documented) at patient's floor/unit and/or counseling patient: Coding Level of Care Code 64494 Subseq Hosp Care Lvl 3 Diagnoses Acute cholecystitis K81.0 Abdominal pain, acute, right upper quadrant R10.11 Cholelithiasis K80.20 COPD with emphysema J43.9 HTN (hypertension) I10 Hypothyroid E03.9 Cirrhosis K74.60 Anemia D64.9 CKD (chronic kidney disease), stage IV N18.4 Solitary kidney Q60.0 Paroxysmal atrial fibrillation I48.0 Pancytopenia D61.818 DVT prophylaxis Z29.9
[2020-09-25] MEDS: ERTAPENEM SODIUM 500 MG in SODIUM CHLORIDE 0.9% 50 ML IV SCH (18:04)
[2020-09-25] MEDS: OXYBUTYNIN CHLORIDE XL 5 MG TABCR PO SCH (20:38)
[2020-09-25] MEDS: PRAVASTATIN SOD 40 MG TAB PO SCH (20:38)
[2020-09-25] MEDS: DONEPEZIL HCL 10 MG TAB PO SCH (20:39)
[2020-09-26] MEDS: ACETAMINOPHEN 325 MG TAB PO SCH ×6 (02:30→22:10)
[2020-09-26] MEDS: LEVOTHYROXINE SODIUM 50 MCG TABLET PO SCH (05:47)
[2020-09-26 07:05] LABS: Mean Corpuscular Hgb Conc 32.1 g/dL (32-36)
[2020-09-26 07:08] LABS: Hematocrit (blood only) 28.7 % (37-47); Hemoglobin 9.2 g/dL (12.0-16.0); Mean Corpuscular Hemoglobin 35.5 pg (25-34); Mean Corpuscular Volume 110.8 fL (80-100); RDW Coefficient of Variation 14.3 % (11.5-14.5); RDW Standard Deviation 57.6 fL (36.4-46.3); Red Blood Count 2.59 M/uL (4.2-5.4); White Blood Count 3.01 K/uL (4.8-10.8)
[2020-09-26 07:21] LABS: INR 3.5 (0.9-1.1); Prothrombin Time 34.5 Seconds (9.0-12.0)
[2020-09-26 07:38] LABS: Mean Platelet Volume 13.8 fL (7.4-10.4); Platelet Count 137 K/uL (130-400); Platelet Estimate Normal (Normal)
[2020-09-26 07:50] LABS: BUN Creatinine Ratio 19.5 (10-20); Bilirubin Direct 0.1 mg/dl (0-0.2); Calcium 8.5 mg/dl (8.5-10.1); Creatinine Clr Calc Pharmacy 20.3 ml/min; Est GFR (Non-African American) 23.3; Potassium 5.1 mmol/L (3.5-5.1)
[2020-09-26 07:53] LABS: Bilirubin,Total 0.4 mg/dl (0.2-1); Total Protein 6.4 gm/dl (6.4-8.2)
[2020-09-26] MEDS: FLUTICASONE PROPIONATE NA SPR 16 GM BTL NAE SCH ×2 (09:09→20:05)
[2020-09-26] MEDS: FLUTICASONE/VILANTEROL 100/25MCG 14 PUFFS/INHALER INH SCH (09:09)
[2020-09-26] MEDS: UMECLIDINIUM BROMIDE 62.5MCG/BLISTER 7 PUFFS/INHALER INH SCH (09:10)
[2020-09-26] MEDS: TRIAMCINOLONE ACET NASAL SPRAY 10.8ML BTL NAE SCH (09:10)
[2020-09-26] MEDS: LIDOCAINE 5% 1 PATCH TD SCH (09:11)
[2020-09-26] MEDS: LORATADINE 10 MG TAB PO SCH (09:12)
[2020-09-26] MEDS: MAGNESIUM OXIDE 400 MG TAB PO SCH (09:13)
[2020-09-26] MEDS: POLYETHYLENE (MIRALAX) 17 GM PACK PO SCH (09:13)
[2020-09-26] MEDS: METOPROLOL SUCC 50MG EXT REL TAB PO SCH ×2 (09:13→09:24)
[2020-09-26] MEDS: TORSEMIDE 20 MG TAB PO SCH (09:13)
[2020-09-26] MEDS: SIMETHICONE 80 MG CHEW PO SCH ×3 (09:14→20:06)
[2020-09-26] MEDS: PANTOprazole 40 MG TAB PO SCH ×2 (09:14→20:08)
[2020-09-26] MEDS: FOLIC ACID 1 MG TAB PO SCH (09:14)
[2020-09-26] MEDS: SENNA 8.6 MG TAB PO SCH ×2 (09:15→20:08)
--- NOTE | 2020-09-26 09:38 | Hospitalist Progress Note ---
Date of Service September 26, 2020 Assessment & Plan (1) Acute cholecystitis: * DC cefepime due to pancytopenia and flagyl and change to Ertapenem. Patient has multiple medication allergies making a po regimen difficult. Will start ertapenem in the hospital and assess tolerance as she is allergic to penicillins. US guided IV ordered. Will need IV abx for home - per GI will need 7 days of abx at discharge (on day 2 of tx with Ertapenem) * Advanced diet to low fiber, low sodium given had to back off yesterday due to distention/discomfort but tolerated well today outside of some reported regurgitation * Not a good surgical candidate per GI. Has functioning Axios stent placement at [facility] in January. * Taken for EGD where stent was cleared out from obstructing food debris and plastic pigtail catheter/stent placed within Axios stent * Discussed with CM -- [facility] able to complete additional 5 days of treatment if discharged tomorrow (2) Abdominal pain, acute, right upper quadrant: * Suspected secondary to cholecystitis as above. * Improving (3) Cholelithiasis: * As above (4) COPD with emphysema: * No current exacerbation.On chronic O2 -- 2L when out in public and 3L when in room at [facility] per her account. 94% on 3L currently * Continue her usual outpatient maintenance inhalers: Incruse Ellipta, Advair or hospital formulary equivalent. (5) HTN (hypertension): * BP 137/55 * Continue metoprolol succinate 50mg daily * Resumed torsemide 09/25 (6) Hypothyroid: * TSH WNL in December. No need to acutely repeat this. * Continue levothyroxine 50 mcg PO daily (7) Cirrhosis: * Noted history. INR elevated despite coumadin being held for past 2 days, also could contribute (8) Anemia: * Macrocytic - Hemoglobin at baseline. Continue folic supplementation * Possible pancytopenia from Cefepime use, switched to Ertapenem (on day 2) * Hbg improved to 9.2/28.7 * CBC in AM (9) CKD (chronic kidney disease), stage IV: * Cr 1.7 which is baseline * Cr elevated to 2.04 on AM labs * Will given additional 500cc NS @ 80cc/hr * BMP in AM (10) Solitary kidney: (11) Paroxysmal atrial fibrillation: * Continue to Hold warfarin for tonight for INR 3.5 (has been held past 2 days) * Continue metoprolol succinate (12) Pancytopenia: * May be secondary to cefepime administration, subsequently discontinued and using Ertapenem as above * CBC in AM (13) DVT prophylaxis: * Warfarin as above (reduced dose of 2mg PO daily dose due to contaminant metronidazole use on admission and continued elevation of INR to 3.5 in pt with cirrhosis) Dispo: If tolerating advancing diet today can discharge tomorrow back to [facility] Admission and Anticipated Discharge Date Admission Date: September 23, 2020 Subjective Patient evaluated this afternoon. Some discomfort with swallowing and regurgitation following jello. Hopeful to resolve soon as this was worsened with the EGD. Patient states not ready for d/c today given nausea and emesis vs regurgitation. Will order phenergan for nausea. Abdominal discomfort today across epigastric region and radiates to both sides. Controlled with ordered medications. Discussed continuing her Ertapenem for total course of 7 days and this has been confirmed to be possible at [facility] when she resides. No fever, chills, chest pain, shortness of breath (on 2-3L NC at baseline). With regards to her romero, she states she always gets those placed while she is in the hospital. Discussed findings of EGD as she stated no one had reviewed this previously. Possible discharge tomorrow. Review of Systems Review of Systems: All systems reviewed & are unremarkable except as noted in HPI & below Physical Exam Constitutional: well developed; + not well nourished and no acute distress Eyes: + anicteric sclerae; normal pupil size R blind ENMT: Ears: + hearing impairment (L sided) Neck: trachea midline, no thyromegaly Respiratory: normal respiratory effort, lungs clear to auscultation on 3L NC Cardiovascular: Rate/Rhythm: regular rate and regular rhythm Heart Sounds: + murmur (RUSB systolic) Extremities: normal capillary refill; no calf tenderness and no pedal edema Gastrointestinal (Abdomen): Inspection/Auscultation: abdomen normal to inspection and normal bowel sounds Percussion/Palpation: + abdomen tender (Generalized, but primarily epigastric ) and abdomen soft; no guarding and abdomen not rigid Musculoskeletal: no cyanosis or clubbing, extremities motor strength 5/5 Skin: warm, dry Neurologic: moves all extremities and awake; not confused Psychiatric: A+Ox3, euthymic affect Genitourinary: no CVA tenderness romero draining yellow urine Results & Data Results & Data ([facility]) Vital Signs (Past 12 Hours) Vital Signs Temp Pulse Resp BP BP Pulse Ox 09/26/20 09:21 56 L 144/72 H 09/26/20 07:27 36.8 C 53 L 18 158/65 H 96 09/25/20 23:22 36.9 C 60 18 128/67 97 Laboratory Results 09/26/20 09/26/20 09/26/20 Range/Units 06:38 06:38 06:38 WBC 3.01 L (4.8-10.8) K/uL RBC 2.59 L (4.2-5.4) M/uL Hgb 9.2 L (12.0-16.0) g/dL Hct 28.7 L (37-47) % MCV 110.8 H (80-100) fL MCH 35.5 H (25-34) pg MCHC 32.1 (32-36) g/dL RDW Std Deviation 57.6 H (36.4-46.3) fL RDW Coeff of Lc 14.3 (11.5-14.5) % Plt Count 137 (130-400) K/uL MPV 13.8 H (7.4-10.4) fL Platelet Estimate Normal (Normal) PT 34.5 H (9.0-12.0) Seconds INR 3.5 H (0.9-1.1) Sodium 137 (136-145) mmol/L Potassium 5.1 (3.5-5.1) mmol/L Chloride 107 (98-107) mmol/L Carbon Dioxide 27 (21-32) mmol/L Anion Gap 3.0 (3-11) BUN 40 H (7-18) mg/dl Creatinine 2.04 H (0.6-1.2) mg/dl Est Cr Clr Drug Dosing 20.3 ml/min Est GFR ( Amer) 27.0 Est GFR (Non-Af Amer) 23.3 BUN/Creatinine Ratio 19.5 (10-20) Glucose 86 (70-99) mg/dl Calcium 8.5 (8.5-10.1) mg/dl Total Bilirubin 0.4 (0.2-1) mg/dl Direct Bilirubin 0.1 (0-0.2) mg/dl AST 13 L (15-37) U/L ALT 14 (12-78) U/L Alkaline Phosphatase 48 (45-117) U/L Total Protein 6.4 (6.4-8.2) gm/dl Albumin 3.0 L (3.4-5.0) gm/dl PG Care Time/CCT Total # of Minutes Spent Total Time Spent with Patient: Total time spent is greater than 50% in coordination of care (as documented) at patient's floor/unit and/or counseling patient: Coding Level of Care Code 41758 Subseq Hosp Care Lvl 2 Diagnoses Acute cholecystitis K81.0 Abdominal pain, acute, right upper quadrant R10.11 Cholelithiasis K80.20 COPD with emphysema J43.9 HTN (hypertension) I10 Hypothyroid E03.9 Cirrhosis K74.60 Anemia D64.9 CKD (chronic kidney disease), stage IV N18.4 Solitary kidney Q60.0 Paroxysmal atrial fibrillation I48.0 Pancytopenia D61.818 DVT prophylaxis Z29.9
[2020-09-26] MEDS ORDERED: PROMETHAZINE HCL 6.25 MG in SODIUM CHLORIDE 0.9% 50 ML IV PRN (13:23)
[2020-09-26] MEDS ORDERED: SODIUM CHLORIDE 0.9% 500 ML IV SCH (16:45)
[2020-09-26] MEDS: ERTAPENEM SODIUM 500 MG in SODIUM CHLORIDE 0.9% 50 ML IV SCH (18:25)
[2020-09-26] MEDS: DONEPEZIL HCL 10 MG TAB PO SCH (20:05)
[2020-09-26] MEDS: OXYBUTYNIN CHLORIDE XL 5 MG TABCR PO SCH (20:06)
[2020-09-26] MEDS: PRAVASTATIN SOD 40 MG TAB PO SCH (20:07)
[2020-09-27] MEDS: ACETAMINOPHEN 325 MG TAB PO SCH ×4 (03:19→13:08)
[2020-09-27] MEDS: LEVOTHYROXINE SODIUM 50 MCG TABLET PO SCH (05:56)
[2020-09-27 07:04] LABS: Mean Corpuscular Hgb Conc 32.5 g/dL (32-36)
[2020-09-27 07:11] LABS: Hematocrit (blood only) 28.3 % (37-47); Hemoglobin 9.2 g/dL (12.0-16.0); Mean Corpuscular Hemoglobin 35.9 pg (25-34); Mean Corpuscular Volume 110.5 fL (80-100); Prothrombin Time 30.2 Seconds (9.0-12.0); RDW Coefficient of Variation 14.3 % (11.5-14.5); RDW Standard Deviation 57.5 fL (36.4-46.3); Red Blood Count 2.56 M/uL (4.2-5.4); White Blood Count 2.59 K/uL (4.8-10.8)
[2020-09-27 07:24] LABS: Basophils # (auto) 0.06 K/uL (0-0.2); Basophils % (auto) 2.3 %; Eosinophils # (auto) 0.08 K/uL (0-0.5); Eosinophils % (auto) 3.1 %; Immature Granulocytes # (auto) 0.01 K/uL (0.00-0.02); Immature Granulocytes % (auto) 0.4 %; Lymphocytes # (auto) 0.82 K/uL (1.2-3.4); Lymphocytes % (auto) 31.7 %; Macrocytosis Present; Mean Platelet Volume 13.5 fL (7.4-10.4); Monocytes # (auto) 0.23 K/uL (0.11-0.59); Monocytes % (auto) 8.9 %; Neutrophils # (auto) 1.39 K/uL (1.4-6.5); Neutrophils % (auto) 53.6 %; Platelet Count 134 K/uL (130-400); Platelet Estimate Decreased (Normal)
[2020-09-27 07:42] LABS: Albumin Level 2.9 gm/dl (3.4-5.0); BUN Creatinine Ratio 20.1 (10-20); Calcium 8.5 mg/dl (8.5-10.1); Creatinine Clr Calc Pharmacy 20.3 ml/min; Est GFR (Non-African American) 23.3; Potassium 4.9 mmol/L (3.5-5.1)
[2020-09-27 07:45] LABS: Albumin Globulin Ratio 0.9 (0.9-2); Bilirubin,Total 0.2 mg/dl (0.2-1); Globulin 3.4 gm/dl (2.5-4.0); Total Protein 6.3 gm/dl (6.4-8.2)
[2020-09-27] MEDS: TRIAMCINOLONE ACET NASAL SPRAY 10.8ML BTL NAE SCH (09:27)
[2020-09-27] MEDS: FLUTICASONE/VILANTEROL 100/25MCG 14 PUFFS/INHALER INH SCH (09:27)
[2020-09-27] MEDS: LACTOBACILLUS ACIDOPHILUS 1 GM PACK PO SCH ×2 (09:27→13:05)
[2020-09-27] MEDS: FLUTICASONE PROPIONATE NA SPR 16 GM BTL NAE SCH (09:27)
[2020-09-27] MEDS: UMECLIDINIUM BROMIDE 62.5MCG/BLISTER 7 PUFFS/INHALER INH SCH (09:27)
[2020-09-27] MEDS: TORSEMIDE 20 MG TAB PO SCH (09:28)
[2020-09-27] MEDS: FOLIC ACID 1 MG TAB PO SCH (09:28)
[2020-09-27] MEDS: MAGNESIUM OXIDE 400 MG TAB PO SCH (09:28)
[2020-09-27] MEDS: PANTOprazole 40 MG TAB PO SCH (09:28)
[2020-09-27] MEDS: METOPROLOL SUCC 50MG EXT REL TAB PO SCH (09:28)
[2020-09-27] MEDS: SIMETHICONE 80 MG CHEW PO SCH ×2 (09:28→13:08)
[2020-09-27] MEDS: LORATADINE 10 MG TAB PO SCH (09:28)
[2020-09-27] MEDS: LIDOCAINE 5% 1 PATCH TD SCH (09:29)
[2020-09-27] MEDS: POLYETHYLENE (MIRALAX) 17 GM PACK PO SCH (09:34)
[2020-09-27] MEDS: SENNA 8.6 MG TAB PO SCH (09:35)
--- NOTE | 2020-09-27 12:46 | Discharge Summary ---
Date of Service September 27, 2020 Admission HPI Per Admitting Provider Lea Humphries is a 74 year old female who presents from [facility] to the ER with abdominal pain. While riding in transport today she started noticing a lot of abdominal pain especially while going over bumps in her upper abdomen. She was seen by her PCP and recommended being evaluated at the ER. She has a complex history of gallstones starting in December with gallstone pancreatitis and choledocholelithiasis. She was seen by surgery on that occasion and felt to be too high of a surgical risk given her COPD, liver cirrhosis and pulmonary hypertension although recommended tertiary care center if it did need to be performed. She followed up with [facility] and in January underwent Axios stent insertion to avoid cholecystectomy. The patient feels her current episode is similar to her gallstone pain in the past. No nausea or vomiting. Had a large loose stool bowel movement while in the ER without any relief of her symptoms. Abdominal pain generalized but mostly upper abdomen, radiates to back, severity 6/10 currently. In the ER she has already been seen by gastroenterology who plan on EGD to assess Axios stent patency after CT scan of A/P. No WBC. Admission Exam Per Admitting Provider Constitutional: well developed; + not well nourished and no acute distress Eyes: + anicteric sclerae; normal pupil size ENMT: external ear and nose normal, oropharynx normal Neck: trachea midline, no thyromegaly Respiratory: normal respiratory effort, lungs clear to auscultation Cardiovascular: Rate/Rhythm: regular rate and regular rhythm Heart Sounds: + murmur (RUSB systolic) Extremities: normal capillary refill; no calf tenderness and no pedal edema Gastrointestinal (Abdomen): Inspection/Auscultation: abdomen normal to inspection and normal bowel sounds Percussion/Palpation: + abdomen tender (Generalized) and abdomen soft; no guarding and abdomen not rigid Musculoskeletal: no cyanosis or clubbing, extremities motor strength 5/5 Skin: no rashes, warm and dry Neurologic: moves all extremities and awake; not confused Psychiatric: A+Ox3, euthymic affect Genitourinary: no CVA tenderness Principal Diagnosis Acute Cholecystitis Discharge Exam Constitutional: well developed; + not well nourished and no acute distress Eyes: + anicteric sclerae; normal pupil size R blind ENMT: Ears: + hearing impairment (L sided). No evidence of otitis/drainage/purulent material. TMs visualized without fluid Neck: trachea midline, no thyromegaly Respiratory: normal respiratory effort, coarse lung sounds, 95% on 3L NC. No wheezing. Cardiovascular: Rate/Rhythm: regular rate and regular rhythm Heart Sounds: + murmur (RUSB systolic) Extremities: normal capillary refill; no calf tenderness and no pedal edema Gastrointestinal (Abdomen): Inspection/Auscultation: abdomen normal to inspection and normal bowel sounds Percussion/Palpation: + abdomen tender (minimal discomfort epigastric) and abdomen soft; no guarding and abdomen not rigid Musculoskeletal: no cyanosis or clubbing, extremities motor strength 5/5 Skin: warm, dry Neurologic: moves all extremities and awake; not confused Psychiatric: A+Ox3 Genitourinary: no CVA tenderness Discharge Data Allergies Allergy/AdvReac Type Severity Reaction Status Date / Time levofloxacin Allergy Intermediate HIVES Verified 09/23/20 10:17 Quinolones Allergy Intermediate HIVES Verified 09/23/20 10:17 ranitidine Allergy Intermediate HIVES Verified 09/23/20 10:17 sulfamethoxazole Allergy Intermediate HIVES Verified 09/23/20 10:17 trimethoprim Allergy Intermediate HIVES Verified 09/23/20 10:17 clarithromycin Allergy Mild HIVES, CAN Verified 09/23/20 10:17 TAKE ZITHROMAX W/O PROB amoxicillin Allergy Unknown HIVES Verified 09/23/20 10:17 omeprazole Allergy Unknown HAS HAD Verified 09/23/20 10:17 PROTONIX tomato AdvReac Unknown GI SYMPTOMS Verified 09/23/20 10:17 Pork AdvReac Unknown GI SYMPTOMS Uncoded 09/23/20 10:17 Consultations 09/23/20 12:20 Consult Gastroenterology Stat 09/23/20 14:04 ED Decision to Admit Stat 09/23/20 14:24 ED Decision to Admit Stat Procedures Performed Operation Date: 09/23/20 12:40 Actual Procedures p Esophagogastroduodenoscopy(Not Applicable) - Amber Silverman MD Ordered Studies 09/23/20 FL esophageal dilatation Routine 09/23/20 09:58 US gallbladder Stat 09/23/20 13:51 CT abd pelvis wo con Stat KUB CXR 09/23 Esophageal Dilation Hospital Course (1) Acute cholecystitis: ADmitted for acute cholecystitis. Hx of such but poor surgical candidate and was treated with Axios stent in the past. [place] [facility] [place] consulted and EGD performed which showed occlusion with food which was cleaned out and then had pigtail catheter placed to prevent risk of re-occlusion Supportive care with IVF, antiemetics and antibiotics. Initially on cefepime and flagyl although discontinued for concern of pancytopenia and placed on Ertapenem. To be continued for total 7 day course. Arranged at d/c to continue at [facility] cdiff negative Added probiotic Tolerated low fiber, low sodium diet without much difficulty If patient would have this recur/need cholecystectomy, would need to be done at tertiary facility given she is high risk with her COPD/etc US guided IV placed for abx prior to discharge LFTs wnl (2) Abdominal pain, acute, right upper quadrant: Suspected secondary to cholecystitis as above. Improving - reported only slight discomfort similar to placement of her initial stent (3) Cholelithiasis: As above (4) COPD with emphysema: No current exacerbation.On chronic O2 -- 2L when out in public and 3L when in room at [facility] per her account. 94% on 3L currently Continued her usual outpatient maintenance inhalers: Incruse Ellipta, Advair or hospital formulary equivalent. (5) HTN (hypertension): BP 133/72 Continued metoprolol, torsemide (initially held) (6) Hypothyroid: TSH WNL in December. No need to acutely repeat this. Continued levothyroxine 50 mcg PO daily (7) Cirrhosis: Noted history. INR elevated despite coumadin being held for past 3 days, also could contribute Discharged with 2mg daily and INR in AM. May need to continue lower dose pending how INRs trend outpatient -- to have INR in AM (8) Anemia: Macrocytic - Hemoglobin at baseline. Continue folic supplementation Possible pancytopenia from Cefepime use, switched to Ertapenem (on day 3) - con tinue for total 7 days as above Hbg stable 9.2/28.7 Repeat outpt at PCP discretion (9) CKD (chronic kidney disease), stage IV: Upon review of Dr. Stevens's notes -- patient's creatinine baseline close to 2.0 Cr 2.04 prior to discharge (10) Solitary kidney: (11) Paroxysmal atrial fibrillation: Continued to Hold warfarin for elevated INR (held for past 3 days). On abx as above, now on Ertapenem Discharging on 2mg daily given cirrhosis and repeat INR in AM May need further reduction pending how outpt INRs trend Follow up with provider at [facility] Continued metoprolol (12) Pancytopenia: May be secondary to cefepime administration, subsequently discontinued and using Ertapenem as above Repeat CBC in 2 weeks outpatient or sooner if needed recommended (13) DVT prophylaxis: Warfarin as above (reduced dose of 2mg PO daily dose due to concomitant metronidazole use on admission and continued elevation of INR in pt with cirrhosis) Discharged back to [facility] Total Time Total Time Spent Total Time Spent (In Minutes): 90 Discharge Plan Discharge Items Patient Disposition: Transfer [facility] Reason For Visit: ACUTE CHOLECYSTITIS Discharge Diagnosis: Acute Cholecystitis Condition on Discharge: Good Goals: You have been hospitalized for an urgent problem which required surgery. During your stay at [facility], we have made an effort to correct the problem that brought you to the hospital while keeping you as comfortable as possible. Surgery and medications were used to bring your condition under control and your discharge instructions will include directions for any medic ations you should take after leaving the hospital. Please make sure to follow the advice of your surgeon regarding follow up with the surgeon and with your primary care provider. Activity: Resume your previous activity Non-emergency contact: Primary Care Provider and Sociocultural Anthropology Professor Call non-emergency contact if: you have any medication questions, your symptoms worsen and your pain is not controlled Follow-up/Referrals: [place] [Primary Care Provider] - Amber Silverman MD [Hospitalist] - (2-4 weeks) Diet: Heart Healthy, Low Fiber and Low Sodium (2gm) Addtl Attending Provider Instructions: You have been hospitalized for abdominal pain and found to have acute cholecystitis. You were treated with antibiotics and switched to Ertapenem to complete a 7 day course. You have an additional 4 days of treatment to be completed at [facility]. You were seen by GI and an EGD was performed which showed blockage in your Axios stent, which was removed and an additional catheter was placed to prevent repeat issues. If this is not effective in the future and you end up needing your gallbladder removed, this would have to be done at a tertiary facility. You have been started on a probiotic to help with diarrhea while on antibiotics. You should follow up with both your PCP and GI in the next several weeks to monitor your progress. Your INR was found to be elevated and you are being sent home on a lower dose of 2mg daily and should have your INR re-checked tomorrow and have them adjust as needed. Please return to the nearest emergency department with any worsening abdominal pain, nausea, vomiting or for any other symptoms that are concerning for you. It has been a pleasure being a part of the medical team providing for you while you have been in the hospital. Take care! Pending Studies at Discharge: No Stand-Alone Forms: My [facility] Skilled Items Patient informed of condition?: Yes DNR: No Discharge Level of Care: Skilled Communicable Disease: No Discharge Prognosis: Improving Lines: US Guided Peripheral IV Urinary Catheter: No Medications and DC Order Prescriptions: New Floranex 100 million cell Granules In Packet 1 packet PO TIDM 4 Days Qty: 12 RF: 0 ertapenem [Invanz] 1 gram recon soln 500 g IM DAILY 3 Days RF: 0 Continued torsemide 20 mg tablet 20 mg PO QAM RF: 0 fluticasone propion-salmeterol [Advair Diskus] 250-50 mcg/dose blister with device 1 inh INHALATION Q12H Qty: 60 RF: 4 acetaminophen 650 mg Tablet Extended Release 650 mg PO BID RF: 0 pravastatin 80 mg tablet 80 mg PO HS RF: 0 levothyroxine 50 mcg tablet 50 mcg PO QAM RF: 0 nitroglycerin 0.4 mg Tablet, Sublingual 0.4 mg sublingual UD PRN (Reason: Chest Pain) RF: 0 oxybutynin chloride 5 mg tablet extended release 24hr 5 mg PO HS RF: 0 omeprazole 20 mg Capsule,Delayed Release(Dr/Ec) 20 mg PO BID RF: 0 folic acid 1 mg Tablet 1 mg PO QAM RF: 0 polyethylene glycol 3350 [GlycoLax] 17 gram/dose Powder 17 g PO QAM RF: 0 albuterol sulfate 90 mcg/actuation Hfa Aerosol Inhaler 2 puff INHALATION Q6H PRN (Reason: Shortness Of Breath) RF: 0 fluticasone propionate [Flonase Allergy Relief] 50 mcg/actuation Carbon,Suspension 1 spray INTRANASAL BID RF: 0 loratadine 10 mg Tablet 10 mg PO QAM RF: 0 donepezil 10 mg tablet 10 mg PO HS RF: 0 lidocaine [Lidocaine Pain Relief] 4 % Adhesive Patch,Medicated 1 patch TOPICAL QAM RF: 0 metoprolol succinate 50 mg tablet extended release 24 hr 50 mg PO QAM RF: 0 simethicone 80 mg Tablet,Chewable 80 mg PO TID RF: 0 senna 8.6 mg Capsule 8.6 mg PO BID RF: 0 magnesium oxide 200 mg magnesium Tablet 400 mg PO QAM RF: 0 Incruse Ellipta 62.5 mcg/actuation blister with device 1 inh INHALATION QAM RF: 0 Changed warfarin 4 mg tablet 2 mg PO HS Qty: 0 RF: 0 Discharge Orders: Discharge Order (Routine); Ordered 09/27/20 Ordered By: Kylah Mujica/Other Patient Handouts: Using Blood Thinners (Anticoagulants), What to Know When TakingWarfarin Admission Data Admit Date/Time: 09/23/20 19:05 Attending Provider: Darien Lozada Admit Provider: Micheal Edwards Primary Care Provider: Abhijit Lara Other Providers: Amber Silverman ; Rafal Ledezma Other Interventions: Discharge Summary Assessment (RN) Last Done: 09/27/20 15:40 Coding Level of Care Code D/C Day Management >30 mins Diagnoses Acute cholecystitis K81.0 Abdominal pain, acute, right upper quadrant R10.11 Cholelithiasis K80.20 COPD with emphysema J43.9 HTN (hypertension) I10 Hypothyroid E03.9 Cirrhosis K74.60 Anemia D64.9 CKD (chronic kidney disease), stage IV N18.4 Solitary kidney Q60.0 Paroxysmal atrial fibrillation I48.0 Pancytopenia D61.818 DVT prophylaxis Z29.9
[2020-09-27] MEDS: ERTAPENEM SODIUM 500 MG in SODIUM CHLORIDE 0.9% 50 ML IV SCH (13:55)
[2020-09-27 14:29] LABS: Folate (Folic Acid) > 24.00 ng/ml (>5.38); Vitamin B12 601 pg/ml (211-911)
== END 2020-09-27 16:20 | DRG 981 ==
LOC: ED 09:29 → OR 17:05 → 3W 17:05 → SUATTDRO 19:05